=== PATIENT | male | born 1935 | race Caucasian/White ===

== ENCOUNTER → 2017-07-05 09:34 | Outpatient (CLI) | payer MEDICARE, SELFPAY ==
--- NOTE | 2017-07-05 09:41 | RAD_ITS ---
STUDY: X-RAY - RIGHT KNEE REASON FOR EXAM: Male, 81 years old. Osteoarthritis, right knee more painful than left. TECHNIQUE: 3 weight bearing view(s) of the knee. COMPARISON: None. FINDINGS: Normal visualized distal femur. Normal visualized proximal tibia and fibula. Normal proximal tibiofibular articulation. Narrowing along the medial femoral notch and lateral tibial spine. There is severe degenerative arthrosis of the medial femorotibial compartment with severe joint space narrowing. There is mild degenerative arthrosis of the lateral femorotibial compartment. There is chondrocalcinosis of the menisci. There is moderate degenerative arthrosis of the patellofemoral articulation. The soft tissue structures are unremarkable. RAD/Knee 3 Views IMPRESSION: Severe medial femoral tibial degeneration. Electronically Signed: Sejal Armenta MD at 3:46 EDT , Service support ,
--- NOTE | 2017-07-05 09:41 | RAD_ITS ---
STUDY: X-RAY - LEFT KNEE REASON FOR EXAM: Male, 81 years old. Osteoarthritis right knee more painful than left. TECHNIQUE: 3 weight bearing view(s) of the knee. COMPARISON: 01/15/2013 FINDINGS: Normal visualized distal femur. Normal visualized proximal tibia and fibula. Normal proximal tibiofibular articulation. Spurring along the medial femoral notch and lateral tibial spine. There is severe degenerative arthrosis of the medial femorotibial compartment with severe joint space narrowing. There is moderate degenerative arthrosis of the lateral femorotibial compartment with moderate joint space narrowing. There is mild degenerative arthrosis of the patellofemoral articulation. There is no demonstrated joint effusion. The soft tissue structures are unremarkable. RAD/Knee 3 Views IMPRESSION: Severe degenerative changes medial femoral tibial compartment less when compared to the contralateral side. This has worsened since previous exam. Electronically Signed: Sejal Armenta MD at 3:48 EDT , Service support ,
== END ==
PROVIDERS: Family Provider Family Medicine; PCP Family Medicine; Visit Provider Family Medicine
DX: M17.10 Unilateral primary osteoarthritis, unspecified knee (principal)
CPT/HCPCS: 73562

== ENCOUNTER 2017-08-15 08:30 | Outpatient (RCR) | payer MEDICARE, SELFPAY ==
--- NOTE | 2017-07-11 11:18 | HP.PTEVAL_ITS ---
Patient's Visit Information ALEX LALA is a 81 year old M referred to Physical Therapy by Will Subramanian with a diagnosis of POSTERIOR TIBIALS WEAKNESS,KNEE OA AND HIP PAIN. Date of Evaluation: 07/11/17 Physical Therapist: Cem Encinas PT, - Visit Plan Frequency: 2x /Week Duration: 5 weeks Plan: flexablity,strengthening hip/hnee /ankle,nustep ,ROM ,plan to do overcounter orthotics - Subjective Subjective: Tghis 81 y/o female presents to physical therapy with posterior tibilas weakness,knee OA,and hip pain. Patient pain in knees and and occassionally ankle pain. Pain is located medial knee . These symptoms worse with walking,standing ,squatting,kneeling,stairs. Pain doensnr stop activity but interfere with daily ADL'S and housework tasks /farning. Denies paratrhesia/ tingling. Seen DR lee x-rays recommend PT .Patient sleeping okay at night. 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 SOCIAL: - Pain Bilateral Knee Pain Intensity (Out of 10): 4 Pain Intensity Range: 10 Bilateral Ankle Pain Intensity (Out of 10): 3 Pain Intensity Range: 10 Bilateral Hip Pain Intensity (Out of 10): 0 Pain Intensity Range: 10 - Objective POSTURE: bilateral Varus knee,calcaneal valgus,pes planus. GAIT:mild foward posture,reciprocal pattern knee varus. PALAPTION: medial joint line pain. NEURO:denies parathesia/tingling,inact. AROM: supine knee flexion 0-125 degrees. FLEXABLITY: hams min tight. MMT: quads /hams 4-/5 ,4-.5 hip flexion/ abd ,ankle anterior 4/5,posterior tibials 4/5,perneous 4/5. STAIRS: ascend/ descend 4steps with rail alternate - Special Tests R Knee Valgus - MCL: Negative R Knee Varus - LCL: Negative R Knee Patellar Apprehension - PFS: Negative R Knee Patellar Grind - PFS: Negative L Knee Valgus - MCL: Negative L Knee Varus - LCL: Negative L Knee Patellar Apprehension - PFS: Negative L Knee Patellar Grind - PFS: Negative - Goals Goal 1:: Independant with HEP Goal Time Frame: 4-6 Weeks Goal 2:: Patient to decrease pain knee by 50% or greater to improve function with walking. 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 along with bilateral calcaneal valgus knee' s which patient will try overcounter orthotics due to no coverage with insurance for fabricated Rehabilitation Potential: Good - Anticipated Interventions Patient/Client Instruction: Educate patient on: Condition, Plan of Care For the Purpose of:: To decrease pain, To increase ROM, To improve muscle performance and motor function, To improve ability to perform ADL's, To increase tolerance to activity/condition/position, To improve performance and independence with ADL's, To improve ability of physical actions for home/ community/work/leisure, To improve gait and locomotor functions, To improve health of tissue, To decrease soft tissue restriction, To increase flexibility/ ROM, To reduce risk of recurrence, To improve ability to perform tasks related to life management Therapeutic Exercise to Include: Strength training, Endurance training, Flexibilty training, Active ROM Comment: quads/hams/hip/ankle For the Purpose of:: To decrease pain, To increase ROM, To improve muscle performance and motor function, To increase tolerance to activity/condition/ position, To improve ability of physical actions for home/community/work/leisure , To improve health of tissue, To decrease soft tissue restriction, To increase flexibility/ROM, To improve ability to perform tasks related to life management TENS: Yes IF ES: Yes Cryotherapy (ice pack, ice massage): Yes Thermo therapy (hot pack): Yes For the Purpose of:: To decrease pain, To increase ROM, To improve nutrient delivery to tissue, To increase oxygenation perfusion, To improve health of tissue, To decrease soft tissue restriction Thank you for the opportunity to evaluate your patient. For Medicare and Medicare HMO plans, please review the plan of care and approve it. It will need to be FAXED BACK to us at [phone] for Medicare purposes. Please let me know if there are questions or concerns regarding this plan of care. Physician Signature: Date:
--- NOTE | 2017-08-15 09:21 | HP.PTDCSUM ---
HP - PT D/C Summary It has been my pleasure to treat ALEX LALA under orders from Will Subramanian, for the diagnosis of POSTERIOR TIBIALS WEAKNESS,KNEE OA AND HIP PAIN for a total of 3 visit(s). Discharge Date: 08/15/17 Please see the following information for a summary of their discharge status. 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 GAIT: AMBULATES WITH ANTALGIC GAIT LEFT SIDE. NEURO: INTACT. STRENGTH: QUADS/HAMS 4/5 ,HIP FLEXION 4-/5,3+/5 HIP ABD. AROM: knee 0-130 degrees ,hip flexion 95 degees - Goals Goal 1:: Independant with HEP Goal Progress: Goal Met Goal 2:: Patient to decrease pain knee by 50% or greater to improve function with walking. 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 Thank you for the referral of this patient. Sincerely, Cem Encinas, PT,
== END 2017-08-15 19:00 | disposition home or self-care (01) ==
LOC: PT 08:30
PROVIDERS: Family Provider Family Medicine; PCP Family Medicine; Visit Provider Family Medicine
DX: R29.898 Other symptoms and signs involving the musculoskeletal system (principal); M17.10 Unilateral primary osteoarthritis, unspecified knee; M25.559 Pain in unspecified hip
CPT/HCPCS: 97110; 97162

== ENCOUNTER → 2017-11-06 16:29 | Outpatient (CLI) | payer MEDICARE, SELFPAY ==
[2017-11-06 17:31] LABS: Absolute Lymphocyte Count 1.14 X10^3/ul (0.83-4.51); Absolute Neutrophil Count 6.1 X10^3/uL (2.0-7.7); Basophil# 0.02 X10^3/uL; Basophil% 0.2 % (0-1); Eosinophils% 4.8 % (0-5); Hematocrit 43.3 % (40-54); Hemoglobin 14.1 g/dl (13.0-16.5); Lymphocyte # 1.14 X10^3/ul (4.0); Lymphocyte % 13.8 % (19-41); Mean Corp Hgb Conc 32.6 g/gl (32-36); Mean Corpuscular Hgb 31.1 pg (27.0-32.0); Mean Corpuscular Volume 95.4 fL (80-94); Mean Platelet Vol. 10.8 fl (6.2-12.0); Monocyte# 0.59 X10^3/uL; Monocyte% 7.1 % (0-10); Neutrophil % 73.9 % (47-70); Platelet Count 235 K/mm3 (150-450); RBC Distribution Width CV 13.8 % (11.6-14.6); RBC Distribution Width SD 48.4 fl (35.1-43.9); Red Blood Count 4.54 M/mm3 (4.6-6.2); White Blood Count 8.3 K/mm3 (4.4-11.0)
[2017-11-06 17:39] LABS: POSITIVE COUNT NO; POSITIVE DIFFERENTIAL NO; POSITIVE MORPHOLOGY NO
[2017-11-06 18:38] LABS: Anion Gap 10 (5-15); BUN 19 mg/dL (7-18); BUN/Creat Ratio 15.6 RATIO (10-20); Calcium,Total 8.5 mg/dL (8.5-10.1); Chloride 112 mmol/L (98-107); Creatinine, Serum 1.22 mg/dL (0.70-1.30); EST Glomerular Filtration Rate 61 mL/min (>60); Est Glom Filt Rate - Afr Amer 73 mL/min (>60); Glucose 102 mg/dL (74-106); Potassium 4.3 mmol/L (3.5-5.1); Sodium Level 147 mmol/L (136-145); Thyroid Stim Hormone (TSH) 3.63 uIU/mL (0.358-3.74)
== END ==
PROVIDERS: Family Provider Family Medicine; PCP Family Medicine; Visit Provider Internal Medicine Cardiovascular Disease
DX: R53.83 Other fatigue (principal)
CPT/HCPCS: 36415; 80048; 84443; 85025

== ENCOUNTER → 2017-11-16 06:33 | Outpatient (CLI) | payer MEDICARE, SELFPAY ==
--- NOTE | 2017-11-16 09:41 | STRESSREP ---
Stress Test Report Date: 11/16/2017 Procedure: Exercise tolerance test/imaging study Indications: Fatigue; CAD; PCI Consent: Per the patient Procedure: The patient exercised on a Daniel protocol for 5 minutes completing Stage I and 2 minutes of Stage II achieving a peak heart rate of 134 bpm (96 % predicted maximal heart rate) with a peak blood pressure 192/80 mmHg and a peak MET capacity of 7 METs. The baseline ECG demonstrated sinus rhythm. The peak exercise ECG demonstrated no obvious ECG changes. There was an occasional PVC during exercise and recovery. The functional capacity was considered good. There was no complaint of chest discomfort during exercise or recovery. The examination was discontinued secondary to dyspnea. Impression: 1. Technically adequate (percent predicted maximal heart rate greater than 85%) exercise tolerance test 2. Peak exercise ECG demonstrated no obvious ECG changes 3. There was an occasional PVC during exercise and recovery. 4. Nuclear images pending Myocardial perfusion imaging study: Technique: The patient was injected with 11.8 mCi of technetium 99m Cardiolite and subsequently rest SPECT Cardiolite nuclear imaging was obtained in the horizontal long, vertical long, and short axis views. The patient exercised on a Daniel protocol for 5 minutes completing Stage I and 2 minutes of Stage II achieving a peak heart rate of 134 bpm (96 % predicted maximal heart rate) with a peak blood pressure 192/80 mmHg and a peak MET capacity of 7 METs. The patient was injected with 34.1 mCi of technetium 99m Cardiolite and subsequently stress SPECT Cardiolite nuclear imaging was obtained in the horizontal long, vertical long, and short axis views. A gated Cardiolite study at peak stress was obtained. Interpretation: Rest and stress SPECT Cardiolite nuclear imaging status post realignment, normalization, and attenuation correction, demonstrates the appearance of diminished tracer uptake in portions of the mid to distal anterior segments at rest which appear to improve/normalize following stress. There are similar type findings on the resting and stress polar map images. There is end systolic thickening and brightening. The gated Cardiolite study demonstrates myocardial thickening and inward wall motion. The reported LVEF is 70 %. Impression: 1. Rest and stress SPECT Cardiolite nuclear imaging demonstrate findings appearing compatible shifting soft tissue attenuation/artifact being more prominent at rest as opposed to stress with no post stress myocardial perfusion changes considered diagnostic for stress-induced myocardial ischemia or previous myocardial injury/infarction. 2. The gated Cardiolite study reports an LVEF of 70 %. This note was generated with [employer] software. It may contain incorrect words, spelling, and punctuation that were not noted in checking the note before signing.
== END ==
PROVIDERS: Family Provider Family Medicine; PCP Family Medicine; Visit Provider Internal Medicine Cardiovascular Disease
DX: I25.10 Atherosclerotic heart disease of native coronary artery without angina pectoris (principal); I35.9 Nonrheumatic aortic valve disorder, unspecified; R53.83 Other fatigue; G47.33 Obstructive sleep apnea (adult) (pediatric)
CPT/HCPCS: 78452; 93017; 93306; A9500; Q9957; A4216; C8929

== ENCOUNTER → 2018-07-03 12:23 | Outpatient (CLI) | payer MEDICARE, SELFPAY ==
[2018-06-22 13:49] VITALS: BMI 33.5
[2018-07-03 13:47] LABS: AST(SGOT) 28 U/L (15-37); Alanine Aminotransfer ALT/SGPT 30 U/L (16-61); Albumin, Serum 3.5 g/dL (3.2-5.0); Alkaline Phosphatase 114 U/L (45-117); Bilirubin, Direct 0.26 mg/dL (0.00-0.30); Cholesterol 105 mg/dL (200); Globulin 3.3 g/dL (2.2-4.2); High Density Lipoprotein 45 mg/dL; Protein, Total 6.8 g/dL (6.4-8.2); Triglycerides 94 mg/dL; Very Low Density Lipoprotein 19 mg/dL (5-40)
== END ==
PROVIDERS: Family Provider Family Medicine; PCP Family Medicine; Referring Provider Internal Medicine Cardiovascular Disease; Visit Provider Internal Medicine Cardiovascular Disease
DX: E78.5 Hyperlipidemia, unspecified (principal)
CPT/HCPCS: 36415; 80061; 80076

== ENCOUNTER → 2019-03-28 09:28 | Outpatient (CLI) | payer MEDICARE, SELFPAY ==
[2018-12-31 09:02] VITALS: BMI 33.8
--- NOTE | 2019-03-28 09:30 | RAD_ITS ---
STUDY: X-RAY CHEST REASON FOR EXAM: Male, 83 years old. RT SIDE BREAST LUMP, 5 O'' CLOCK POSITION. NO CHEST COMPLAINTS TODAY. PREV. HX CA TECHNIQUE: Frontal and lateral views of the chest were performed COMPARISON: 28 December 2016 FINDINGS: The lungs are clear and expanded. There is no demonstrated pleural abnormality. Normal size heart. Normal mediastinum and josefina. Normal visualized pulmonary arteries. Normal visualized aortic arch and descending thoracic aorta. Normal visualized thoracic spine. Normal visualized ribs, clavicles, and shoulders. There is no demonstrated abnormality of the visualized soft tissue structures of the upper abdomen. RAD/Chest PA and Lateral IMPRESSION: No acute cardio respiratory disease. Electronically Signed: Yaquelin Tamez, at 18:48 EST Tel , Service support ,
== END ==
PROVIDERS: Family Provider Family Medicine; PCP Family Medicine; Referring Provider Family Medicine; Visit Provider Family Medicine
DX: N63.14 Unspecified lump in the right breast, lower inner quadrant (principal)
CPT/HCPCS: 71046; 76642; 77062; 77066; G0279

== ENCOUNTER → 2019-03-28 09:51 | Outpatient (CLI) | payer MEDICARE, SELFPAY ==
[2018-12-31 09:02] VITALS: BMI 33.8
--- NOTE | 2019-03-28 09:56 | BI_ITS ---
MAMMOGRAPHY - BILATERAL DIAGNOSTIC REASON FOR EXAM: Male, 83 years old. Right breast lump. PERTINENT HISTORY: Mother with breast cancer. TECHNIQUE: Digital bilateral breast chantale (3D mammographic acquisition) in the CC and MLO projections. 2-D mediolateral oblique (MLO) and craniocaudad (CC) views of both breasts were obtained. CAD: Full Field Digital Mammography with Computer Added Detection was performed. COMPARISON: None. FINDINGS: Breast Composition: The breasts are almost entirely fatty. There are no dominant masses or suspicious calcifications. Asymmetrical breast tissue is seen in the inferior medial aspect of the right breast at the palpable abnormality site. Correlation with ultrasound is recommended. No other significant abnormalities are identified. BI/DIAG MAMM W/CAD, BILAT IMPRESSION: Findings suggestive of focal right breast asymmetry corresponding to the palpable site. Correlation with ultrasound is recommended. ASSESSMENT CATEGORY: BIRADS Category 0: Incomplete. Need additional imaging evaluation. A letter regarding these results will be sent to the patient by the facility within 30 days. Approximately 10% of breast cancers are not detected by mammography. A normal mammogram should not delay biopsy of a clinically suspicious abnormality. Electronically Signed: Tony Hwang, at 11:43 EST , Service support ,
--- NOTE | 2019-03-28 09:56 | US_ITS ---
STUDY: ULTRASOUND BREAST - RIGHT REASON FOR EXAM: Male, 83 years old. Palpable lump in the right breast. TECHNIQUE: Axial and longitudinal images of the RIGHT breast were performed with a high resolution ultrasound transducer. # OF IMAGES: 11 COMPARISON: Comparison is made with prior mammogram done earlier in day. FINDINGS: RIGHT Breast: The palpable abnormality corresponds to a 1.1 cm x 1.5 cm x 0.7 cm well-defined echogenic nodule just deep to the subcutaneous tissues at the 4:00 position of the breast at 5 sinuses negative. This most likely represents a lipoma. US/Breast Limited Unilateral IMPRESSION: The popliteal mouth to corresponds to a 1.1 cm x 1.5 cm x 0.7 cm well-defined echogenic nodule just deep to the subcutaneous tissues. This is suggestive of a lipoma. ASSESSMENT CATEGORY: BIRADS Category 2: Benign. A letter regarding these results will be sent to the patient by the facility within 30 days. Electronically Signed: Tony Hwang, at 9:03 EST , Service support ,
== END ==
PROVIDERS: Family Provider Family Medicine; PCP Family Medicine; Referring Provider Family Medicine; Visit Provider Family Medicine
DX: R92.8 Other abnormal and inconclusive findings on diagnostic imaging of breast (principal)
CPT/HCPCS: 76642; 77062; 77066; G0279

== ENCOUNTER 2019-05-19 05:12 | Emergency (ER) | payer MEDICARE, SELFPAY ==
[2018-12-31 09:02] VITALS: BMI 33.8
[2019-05-19 05:13] VITALS: BP 187/94; PULSE 89; RESP 18; TEMP 36.2; O2SAT 96; BMI 35.9
--- NOTE | 2019-05-19 05:38 | ED.VIS.GEN ---
History of Present Illness Chief Complaint: Wound Check Informant: Patient Onset: Today Context: Sudden Onset Timing: Continuous Narrative: Patient is an 83-year-old male presenting with bleeding gums. Patient had 9 teeth extracted 11 days ago by his dentist on his lower jaw. Last night he bit down and then started bleeding from his lower jaw. He is a bleeding throughout the night is not been able to get to stop. Patient is on Brilinta and restarted it 3 to 4 days after his extraction. Before that he not had a problem with bleeding. He does seem to have a large clot that has developed over his lower gum. His procedure was done in [place]. He does have sutures in place. He denies any lightheadedness, chest pain or any other complaints at this time. No reports of fever or any signs of infection. Past Medical History - Allergies and Home Meds Allergies/Adverse Reactions: Allergies lisinopril Adverse Reaction (Severe, Verified 05/19/19 05:15) cough Primary Care Physician: Will Subramanian MD [Primary Care Provider] - Past Medical History: - - Coronary artery disease, Hypertension, obstructive sleep apnea, hyperlipidemia Surgical History: noncontributory Smoking Status: Never smoker Review of Systems General: Denies: Chills, Fever, Sweats Eyes: Denies: Visual changes - bilaterally, Diplopia ENT: Reports: - - Bleeding from lower gums, recent dental extraction. Denies: Rhinorrhea, Sore throat Cardiovascular: Denies: Chest pain, Palpitations Respiratory: Denies: Dyspnea, Cough, Dyspnea on exertion Gastrointestinal: Denies: Abdominal pain, Nausea, Vomiting, Diarrhea, Melena, Hematochezia Skin: Denies: Rash, Wounds Neurological: Denies: Headache, Weakness, Numbness Hematologic: Denies: Easy bruising, Easy bleeding Physical Exam Vital Signs/Narrative: Vital Signs Temp Pulse Resp BP Pulse Ox 05/19/19 05:13 97.2 F L 89 18 187/94 H 96 Inital Vital Signs reviewed: Yes General: Well nourished, Well developed, No Acute Distress Head: Normocephalic, Atraumatic Eyes: Perrl, EOMI. Negative for: Pale conjunctiva ENT: Moist mucous membranes, No rhinorrhea, - - Patient is edentulous with sutures in place over the lower anterior gumline. He has an approximately 4 cm hematoma extending from the front gumline to the left. Underneath is there are sutures in place and steady oozing/bleeding in the space of the front left incisor Neck: Supple, Nontender Cardiovascular: Regular rate, Regular rhythm, No murmurs Respiratory: No distress, CTA bilaterally, Chest nontender Extremities: Nontender, No edema, - - Patient ambulates easily in the emergency room Skin: Normal color, No rash Neurological: Alert, Oriented x3, Cranial nerves II-XII grossly intact, Normal Strength, Normal Sensation Psychological: Normal affect, Normal Mood Diagnostic/Tx/Re-eval - Medical Decision Making Patient is evaluated for persistent bleeding status post dental extraction. This is likely exacerbated as he resumed his Brilinta 1 week ago. Hematoma was removed to the best of our ability and the direct pressure was applied for about 20 minutes with gauze. Patient continued to have bleeding. Then, TXA soaked gauze was applied with direct pressure for another 15 to 20 minutes. Again patient continued to have persistent but slow bleeding. I discussed with his dentist who performed the extraction, Dr. Cueto, who initially requested that he be evaluated by oral maxillary facial. OMFS surgeon in the area is out of town so Dr. Cueto stated that she would be able to see him immediately in the office. Patient is discharged with gauze and states he feels comfortable driving to his dentist office. She will meet him there. Patient is hemodynamically stable. He probably has no more than 20 to 30 cc of blood loss while he was in the emergency room. He does not have any signs or symptoms consistent with hypovolemic shock. Patient counseled on signs symptoms require return the emergency room. He verbalizes agreement understand this plan. ED Disposition - Plan for ED Patient: Disposition: Home or Assisted Living Diagnosis: Status post tooth extraction, Surgical wound hemorrhage after dental procedure Instructions: POST OP WOUND CHECK, Bleeding Referrals: Will Subramanian MD [Primary Care Provider] - Additional Instructions: Please go straight to Dr. Cueto, your dentist office. She will evaluate you there and hopefully treat the bleeding. If it anytime you start to feel lightheaded, have chest pain or have other new symptoms, please tack puller machine and call 911.
[2019-05-19] MEDS: TRANEXAMIC ACID 1,000 MG/10 ML ML 1000 MG OPERA.SITE (06:30)
--- NOTE | 2019-05-19 06:30 | ED.RN ---
large clot removed from the gums at this time. TXA applied to quaze and pressure applied to the site
--- NOTE | 2019-05-19 06:59 | ED.RN ---
new dressing applied with txa applied to the site
--- NOTE | 2019-05-19 07:02 | ED.RN ---
left message at dental office at this time
--- NOTE | 2019-05-19 07:47 | ED.RN ---
pt to be discharged to Dr Cueto office. pt in agreement. pt denies being light headed or dizzy. Pt refuses ambulance ride but agrees if issues he will seedling puller and call a squad
== END 2019-05-19 07:49 | disposition home or self-care (01) ==
PROVIDERS: Emergency Provider Emergency Medicine; PCP Family Medicine
DX: K91.840 Postprocedural hemorrhage of a digestive system organ or structure following a digestive system procedure (principal); Z98.818 Other dental procedure status; I25.10 Atherosclerotic heart disease of native coronary artery without angina pectoris; I10 Essential (primary) hypertension; E78.5 Hyperlipidemia, unspecified; G47.33 Obstructive sleep apnea (adult) (pediatric); Z79.82 Long term (current) use of aspirin; Z79.899 Other long term (current) drug therapy
CPT/HCPCS: 99281

== ENCOUNTER → 2019-08-08 07:57 | Outpatient (CLI) | payer MEDICARE, SELFPAY ==
[2019-07-25 10:20] VITALS: BMI 34.7
[2019-08-08 08:03] LABS: Lyme Ab Screen Interpretation REF LAB
[2019-08-08 10:15] LABS: Absolute Lymphocyte Count 1.16 X10^3/uL (0.83-4.51); Absolute Neutrophil Count 5.2 X10^3/uL (2.0-7.7); Basophil# 0.05 X10^3/uL; Basophil% 0.7 % (0-1); Eosinophil# 0.39 X10^3/uL; Eosinophils% 5.1 % (0-5); Hemoglobin 13.7 g/dL (13.0-16.5); Lymphocyte # 1.16 X10^3/ul (4.0); Lymphocyte % 15.3 % (19-41); Mean Corp Hgb Conc 33.4 g/dL (32-36); Mean Corpuscular Hgb 30.8 pg (27.0-32.0); Mean Corpuscular Volume 92.1 fL (80-94); Mean Platelet Vol. 10.1 fl (6.2-12.0); Monocyte% 9.2 % (0-10); NRBC Flagged by Analyzer 0 % (0-5); Neutrophil # 5.24 X10^3/uL (2.7-7.7); Platelet Count 292 K/mm3 (150-450); RBC Distribution Width CV 12.8 % (11.6-14.6); RBC Distribution Width SD 42.6 fl (35.1-43.9); Red Blood Count 4.45 M/mm3 (4.6-6.2); White Blood Count 7.6 K/mm3 (4.4-11.0)
[2019-08-08 10:25] LABS: Erythrocyte Sedimentation Rate 13 mm/hr (0-20)
[2019-08-08 10:51] LABS: Bilirubin, Direct 0.22 mg/dL (0.00-0.30); Cholesterol 123 mg/dL (200); High Density Lipoprotein 45 mg/dL; Triglycerides 134 mg/dL; Very Low Density Lipoprotein 27 mg/dL (5-40)
[2019-08-08 10:56] LABS: ALB/GLOB Ratio 0.9 RATIO (0.9-2.4); AST(SGOT) 23 U/L (15-37); Alanine Aminotransfer ALT/SGPT 27 U/L (16-61); Albumin, Serum 3.3 g/dL (3.2-5.0); Alkaline Phosphatase 115 U/L (45-117); Anion Gap 7 (5-15); BUN 22 mg/dL (7-18); BUN/Creat Ratio 19.6 RATIO (10-20); CPK Total, Creatine Kinase 44 U/L (39-308); Calcium,Total 8.7 mg/dL (8.5-10.1); Chloride 103 mmol/L (98-107); Creatinine, Serum 1.12 mg/dL (0.70-1.30); EST Glomerular Filtration Rate 67 mL/min (>60); Est Glom Filt Rate - Afr Amer 81 mL/min (>60); Globulin 3.5 g/dL (2.2-4.2); Glucose 109 mg/dL (74-106); Magnesium 2.1 mg/dL (1.6-2.6); Potassium 3.1 mmol/L (3.5-5.1); Protein, Total 6.8 g/dL (6.4-8.2); Sodium Level 140 mmol/L (136-145); Thyroid Stim Hormone (TSH) 4.67 uIU/mL (0.358-3.74)
[2019-08-09 18:51] LABS: Lyme Scn Total Ab w/Rflx <0.91 ISR (0.00-0.90)
== END ==
PROVIDERS: Internal Medicine Cardiovascular Disease; PCP Family Medicine; Referring Provider Family Medicine; Visit Provider Family Medicine
DX: E78.00 Pure hypercholesterolemia, unspecified (principal); M79.10 Myalgia, unspecified site; M19.90 Unspecified osteoarthritis, unspecified site
CPT/HCPCS: 36415; 80053; 80061; 82248; 82306; 82550; 83735; 84443; 85025; 85652; 86618

== ENCOUNTER 2020-04-17 15:57 | Outpatient (RCR) | payer MEDICARE, SELFPAY ==
[2020-04-01 10:15] VITALS: BMI 35.7
== END 2020-04-17 23:59 ==
LOC: IMMUN 15:57
PROVIDERS: PCP Family Medicine; Visit Provider Family Medicine
DX: Z23 Encounter for immunization (principal)
CPT/HCPCS: 0011A; 0012A; 91301

== ENCOUNTER → 2020-04-27 14:11 | Outpatient (CLI) | payer MEDICARE, SELFPAY ==
[2020-04-01 10:15] VITALS: BMI 35.7
--- NOTE | 2020-04-27 14:16 | RAD_ITS ---
STUDY: X-RAY CHEST REASON FOR EXAM: Male, 84 years old. CHRONIC COUGH TECHNIQUE: PA and lateral views of the chest. COMPARISON: 03/28/2019. FINDINGS: The lungs are normally expanded with minimal left mid lower lung field atelectasis. Remainder of the lung mancini are clear. There is no demonstrated pleural abnormality. Normal size heart. Normal mediastinum and josefina. Normal visualized pulmonary arteries. There is atherosclerotic calcification of the aortic arch with tortuosity. There are diffuse degenerative changes of the visualized thoracic spine. There is degenerative osteoarthritis of the bilateral shoulders. There is no demonstrated abnormality of the visualized soft tissue structures of the upper abdomen. RAD/Chest PA and Lateral IMPRESSION: Left mid lower lung field atelectasis otherwise no acute cardiopulmonary disease. Electronically Signed: Yvonne Brody MD at 0:30 EST , Service support ,
[2020-04-27 18:25] LABS: Absolute Lymphocyte Count 1.16 X10^3/uL (0.83-4.51); Basophil# 0.05 X10^3/uL; Basophil% 0.5 % (0-1); Eosinophil# 0.38 X10^3/uL; Eosinophils% 4.1 % (0-5); Hematocrit 43.3 % (40-54); Hemoglobin 14.6 g/dL (13.0-16.5); Lymphocyte # 1.16 X10^3/ul (4.0); Lymphocyte % 12.4 % (19-41); Mean Corp Hgb Conc 33.7 g/dL (32-36); Mean Corpuscular Hgb 30.9 pg (27.0-32.0); Mean Corpuscular Volume 91.5 fL (80-94); Mean Platelet Vol. 10.5 fl (6.2-12.0); Monocyte# 0.73 X10^3/uL; Monocyte% 7.8 % (0-10); NRBC Flagged by Analyzer 0 % (0-5); Neutrophil # 6.98 X10^3/uL (2.7-7.7); Neutrophil % 74.6 % (47-70); Platelet Count 331 K/mm3 (150-450); RBC Distribution Width CV 13.5 % (11.6-14.6); RBC Distribution Width SD 45.6 fl (35.1-43.9); Red Blood Count 4.73 M/mm3 (4.6-6.2); White Blood Count 9.4 K/mm3 (4.4-11.0)
[2020-04-27 18:46] LABS: BNP,B-Type NATRIURETIC PEPTIDE 24.6 pg/mL (0-100)
[2020-04-27 18:49] LABS: Vitamin D,25 Hydroxy 22.6 ng/mL
[2020-04-27 18:52] LABS: ALB/GLOB Ratio 1.1 RATIO (0.9-2.4); AST(SGOT) 26 U/L (15-37); Alanine Aminotransfer ALT/SGPT 28 U/L (16-61); Albumin, Serum 3.7 g/dL (3.2-5.0); Alkaline Phosphatase 139 U/L (45-117); Anion Gap 8 (5-15); BUN 23 mg/dL (7-18); BUN/Creat Ratio 17.6 RATIO (10-20); Calcium,Total 9.1 mg/dL (8.5-10.1); Chloride 108 mmol/L (98-107); Creatinine, Serum 1.31 mg/dL (0.70-1.30); EST Glomerular Filtration Rate 56 mL/min (>60); Est Glom Filt Rate - Afr Amer 67 mL/min (>60); Globulin 3.5 g/dL (2.2-4.2); Glucose 112 mg/dL (74-106); Potassium 3.1 mmol/L (3.5-5.1); Protein, Total 7.2 g/dL (6.4-8.2); Sodium Level 143 mmol/L (136-145); T4 Free Direct 1.09 ng/dL (0.76-1.46); Thyroid Stim Hormone (TSH) 2.64 uIU/mL (0.358-3.74)
== END ==
PROVIDERS: PCP Family Medicine; Referring Provider Family Medicine; Visit Provider Family Medicine
DX: R05 Cough (principal); M13.0 Polyarthritis, unspecified; R79.89 Other specified abnormal findings of blood chemistry; C61 Malignant neoplasm of prostate
CPT/HCPCS: 36415; 71046; 80053; 82306; 83880; 84153; 84439; 84443; 85025

== ENCOUNTER → 2020-05-01 11:00 | Outpatient (CLI) | payer MEDICARE, SELFPAY ==
[2020-04-01 10:15] VITALS: BMI 35.7
--- NOTE | 2020-05-01 11:02 | ECHOCS_ITS ---
Reason For Study: Murmur Procedure This was a 2D Doppler, Color Flow transthoracic echocardiogram. The study was technically difficult. Contrast injection was performed. Exam performed in department. Left Ventricle Normal LV size. Moderate concentric left ventricular hypertrophy. Left ventricular systolic function is normal. The estimated ejection fraction is 65 %. Diastolic function is indeterminate. No regional wall motion abnormalities noted. Right Ventricle Normal RV size. Normal systolic function. Atria Normal left atrium. Normal right atrium. No doppler evidence for ASD. Mitral Valve There is no mitral annular calcification. Normal mitral valve. Trivial mitral valve insufficiency. Tricuspid Valve Normal tricuspid valve. Trivial tricuspid valve insufficiency. Unable to estimate RV systolic pressure/pulmonary artery pressure due to technically difficult study. Aortic Valve Trisinus/trileaflet aortic valve. Mild diffuse aortic valve thickening. Moderate focal aortic valve calcification. Moderate aortic stenosis. Pulmonic Valve The pulmonic valve is not well visualized. Great Vessels Normal sized aortic root. Pericardium/Pleural No pericardial effusion. Medication Diluted definity 3ml given slow IV push to enhance endocardial definition. MMode/2D Measurements & Calculations LVIDd: 4.0 cm IVSd: 1.6 cm LVOT diam: 2.1 cm LVIDs: 2.2 cm LVPWd: 1.3 cm RVDd: 3.8 cm FS: 44.3 % LVOT area: 3.6 cm2 Ao root diam: 3.3 cm LAV(MOD-bp): 49.9 ml LVAd ap4: 28.6 cm2 LAV(MOD-bp) Indexed: 24.7 ml/m2 EDV(MOD-sp4): 82.5 ml LAV(MOD-sp2): 53.8 ml EDV(sp4-el): 86.4 ml LAV(MOD-sp4): 46.0 ml LVAs ap4: 14.1 cm2 ESV(MOD-sp4): 27.9 ml ESV(sp4-el): 27.2 ml EF(MOD-sp4): 66.1 % EF(sp4-el): 68.6 % SV(MOD-sp4): 54.5 ml SV(sp4-el): 59.3 ml LA A4 area: 17.0 cm2 LA dimension(2D): 3.5 cm RA A4 area: 11.9 cm2 Doppler Measurements & Calculations MV E max raheem: 70.0 cm/sec Lat Peak E' Raheem: 6.7 cm/sec Med Peak E' Raheem: 6.8 cm/sec MV A max raheem: 89.2 cm/sec E/E' lat: 10.4 E/E' med: 10.2 MV E/A: 0.78 Ao V2 max: 308.8 cm/sec LV V1 max: 87.0 cm/sec SV(LVOT): 71.5 ml Ao max P.2 mmHg LV V1 max P.0 mmHg Ao V2 mean: 227.5 cm/sec LV V1 mean P.6 mmHg Ao mean P.4 mmHg LV V1 mean: 61.6 cm/sec Ao V2 VTI: 68.2 cm LV V1 VTI: 19.8 cm BRYAN(I,D): 1.0 cm2 BRYAN(V,D): 1.0 cm2 PA V2 max: 100.4 cm/sec Interpretation Summary The study was technically difficult. Contrast injection was performed. Left ventricular systolic function is normal. The estimated ejection fraction is 65 %. Moderate concentric left ventricular hypertrophy. Trivial mitral valve insufficiency. Trivial tricuspid valve insufficiency. Moderate aortic stenosis. Unable to estimate RV systolic pressure/pulmonary artery pressure due to technically difficult study. Diastolic function is indeterminate. Ordering Physician: Damaris Lee Referring Physician: Will Subramanian Performed By: Lupe Vann RDCS, RVT
== END ==
PROVIDERS: PCP Family Medicine; Referring Provider Physician Assistant Medical; Visit Provider Physician Assistant Medical
DX: I25.10 Atherosclerotic heart disease of native coronary artery without angina pectoris (principal)
CPT/HCPCS: 93306; Q9957; A4216; C8929

== ENCOUNTER → 2020-07-22 13:54 | Outpatient (CLI) | payer MEDICARE, SELFPAY ==
[2020-04-01 10:15] VITALS: BMI 35.7
--- NOTE | 2020-07-22 13:56 | RAD_ITS ---
STUDY: X-RAY CHEST REASON FOR EXAM: Male, 84 years old. COUGH TECHNIQUE: PA and lateral views of the chest. COMPARISON: 04/27/2020 FINDINGS: The lungs are clear and expanded. There is no demonstrated pleural abnormality. Normal size heart. Normal mediastinum and josefina. Normal visualized pulmonary arteries. Normal visualized aortic arch and descending thoracic aorta. Normal visualized thoracic spine. Normal visualized ribs, clavicles, and shoulders. There is no demonstrated abnormality of the visualized soft tissue structures of the upper abdomen. RAD/Chest PA and Lateral IMPRESSION: Normal x-ray examination of the chest. Electronically Signed: Jacob Ramirez MD at 8:13 EDT Tel , Service support ,
== END ==
PROVIDERS: PCP Family Medicine; Referring Provider Family Medicine; Visit Provider Family Medicine
DX: R05 Cough (principal)
CPT/HCPCS: 71046

== ENCOUNTER → 2020-10-21 14:23 | Outpatient (CLI) | payer MEDICARE, SELFPAY ==
[2020-04-01 10:15] VITALS: BMI 35.7
[2020-10-21 18:02] LABS: Anion Gap 7 (5-15); BUN 24 mg/dL (7-18); Calcium,Total 8.8 mg/dL (8.5-10.1); Chloride 107 mmol/L (98-107); Creatinine, Serum 1.09 mg/dL (0.70-1.30); EST Glomerular Filtration Rate 69 mL/min (>60); Est Glom Filt Rate - Afr Amer 83 mL/min (>60); Glucose 106 mg/dL (74-106); Potassium 3.2 mmol/L (3.5-5.1); Sodium Level 143 mmol/L (136-145)
[2020-10-21 18:47] LABS: Microalbumin,Random Urine < 5.0 mg/L (NO RANGE EST.)
== END ==
PROVIDERS: PCP Family Medicine; Referring Provider Family Medicine; Visit Provider Family Medicine
DX: I10 Essential (primary) hypertension (principal)
CPT/HCPCS: 36415; 80048; 82043; 82570

== ENCOUNTER → 2020-12-18 14:49 | Outpatient (CLI) | payer MEDICARE, SELFPAY ==
--- NOTE | 2020-12-18 14:50 | RAD_ITS ---
STUDY: X-RAY - LUMBAR SPINE REASON FOR EXAM: Male, 85 years old. Worsening low back pain TECHNIQUE: 5 view(s) of the lumbar spine were obtained. COMPARISON: Previous study from 2009 not available for comparison FINDINGS: Normal lumbar lordosis. There is no substantial scoliosis. There is a normal alignment of the vertebrae. There is diffuse demineralization with multi-level endplate spondylosis. There is multi-level degenerative disc disease with multi-level disc space narrowing, most pronounced at L5/S1 with there is vacuum disc phenomenon. There is no demonstrated fracture. There is atherosclerotic calcification of the abdominal aorta without a demonstrated aneurysm. RAD/L/S Spine Min 4 Views IMPRESSION: Degenerative changes of the spine, as detailed above. Electronically Signed: Orion Madrid MD at 16:57 EDT , Service support ,
[2020-12-18 15:01] LABS: Lyme Ab Screen Interpretation REF LAB
[2020-12-18 17:43] LABS: Absolute Lymphocyte Count 1.25 X10^3/uL (0.83-4.51); Absolute Neutrophil Count 4.9 X10^3/uL (2.0-7.7); Basophil# 0.04 X10^3/uL; Basophil% 0.6 % (0-1); Eosinophil# 0.42 X10^3/uL; Eosinophils% 5.8 % (0-5); Hematocrit 41.6 % (40-54); Hemoglobin 13.5 g/dL (13.0-16.5); Lymphocyte # 1.25 X10^3/ul (0.83-4.51); Lymphocyte % 17.3 % (19-41); Mean Corp Hgb Conc 32.5 g/dL (32-36); Mean Corpuscular Hgb 30.5 pg (27.0-32.0); Mean Corpuscular Volume 94.1 fL (80-94); Mean Platelet Vol. 10.2 fl (6.2-12.0); Monocyte# 0.57 X10^3/uL; Monocyte% 7.9 % (0-10); NRBC Flagged by Analyzer 0 % (0-5); Platelet Count 324 K/mm3 (150-450); RBC Distribution Width CV 12.9 % (11.6-14.6); RBC Distribution Width SD 44.7 fl (35.1-43.9); Red Blood Count 4.42 M/mm3 (4.6-6.2); White Blood Count 7.2 K/mm3 (4.4-11.0)
[2020-12-18 18:04] LABS: Erythrocyte Sedimentation Rate 26 mm/hr (0-20)
[2020-12-18 18:12] LABS: Vitamin D,25 Hydroxy 36.9 ng/mL
[2020-12-18 18:25] LABS: ALB/GLOB Ratio 0.9 RATIO (0.9-2.4); AST(SGOT) 23 U/L (15-37); Alanine Aminotransfer ALT/SGPT 25 U/L (16-61); Albumin, Serum 3.5 g/dL (3.2-5.0); Alkaline Phosphatase 114 U/L (45-117); Anion Gap 10 (5-15); BUN 20 mg/dL (7-18); CRP 8.72 mg/L (0.0-3.0); Calcium,Total 8.9 mg/dL (8.5-10.1); Chloride 105 mmol/L (98-107); EST Glomerular Filtration Rate 76 mL/min (>60); Est Glom Filt Rate - Afr Amer 92 mL/min (>60); Globulin 3.8 g/dL (2.2-4.2); Glucose 101 mg/dL (74-106); Potassium 3.5 mmol/L (3.5-5.1); Protein, Total 7.3 g/dL (6.4-8.2); Sodium Level 141 mmol/L (136-145); Thyroid Stim Hormone (TSH) 3.28 uIU/mL (0.358-3.74)
[2020-12-21 13:11] LABS: Lyme Scn Total Ab w/Rflx <0.91 ISR (0.00-0.90)
[2020-12-21 13:12] LABS: ANTINUCLEAR ANTIBODIES DIRECT Negative (Negative)
== END ==
PROVIDERS: PCP Family Medicine; Referring Provider Family Medicine; Visit Provider Family Medicine
DX: R26.81 Unsteadiness on feet (principal); R53.81 Other malaise; R53.83 Other fatigue; M06.4 Inflammatory polyarthropathy
CPT/HCPCS: 36415; 72110; 80053; 82306; 84443; 85025; 85652; 86038; 86140; 86618

== ENCOUNTER → 2020-12-28 09:47 | Outpatient (CLI) | payer MEDICARE, SELFPAY ==
[2020-12-28 12:16] LABS: AST(SGOT) 26 U/L (15-37); Alanine Aminotransfer ALT/SGPT 30 U/L (16-61); Albumin, Serum 3.4 g/dL (3.2-5.0); Alkaline Phosphatase 107 U/L (45-117); Bilirubin, Direct 0.14 mg/dL (0.00-0.30); Cholesterol 135 mg/dL (200); Globulin 3.5 g/dL (2.2-4.2); High Density Lipoprotein 43 mg/dL; Protein, Total 6.9 g/dL (6.4-8.2); Triglycerides 181 mg/dL; Very Low Density Lipoprotein 36 mg/dL (5-40)
== END ==
PROVIDERS: Internal Medicine Cardiovascular Disease; PCP Family Medicine; Visit Provider Family Medicine
DX: E78.5 Hyperlipidemia, unspecified (principal)
CPT/HCPCS: 36415; 80061; 80076

== ENCOUNTER → 2021-01-27 13:09 | Outpatient (CLI) | payer MEDICARE, SELFPAY ==
--- NOTE | 2021-01-27 13:12 | CDU_ITS ---
Reason For Study: Carotid artery bruits Rt. Velocities/BP Lt. Velocities/BP Prox CCA 66.9/10.8 cm/sec. Prox CCA 75.8/15.4 cm/sec. Mid CCA 101/13.3 cm/sec. Mid CCA 70.2/11.6 cm/sec. Dist CCA 95.5/11.5 cm/sec. Dist CCA 68.3/12.6 cm/sec. Prox ICA 73.6/17 cm/sec. Prox ICA 151/42.2 cm/sec. Mid ICA 99.2/22.5 cm/sec. Mid ICA 115.6/27.9 cm/sec. Dist ICA 82.7/18.8 cm/sec. Dist ICA 68.4/17.9 cm/sec. Rt. ICA/CCA = 1.04. Lt. ICA/CCA = 2.15. Prox ECA 91.9/6 cm/sec. Prox ECA 53.4/7.8 cm/sec. Rt. Vert. 39/9.7 cm/sec. Lt. Vert. 43.2/8 cm/sec. Right Extracranial There is intimal thickening but no significant atherosclerotic plaque noted in the right common carotid artery. There is homogeneous, irregular atherosclerotic plaque noted in the right internal carotid artery. There is intimal thickening but no significant atherosclerotic plaque noted in the right external carotid artery. Antegrade flow is noted in the right vertebral artery. Left Extracranial There is homogeneous, smooth atherosclerotic plaque noted in the left common carotid artery. There is heterogeneous, irregular atherosclerotic plaque noted in the left internal carotid artery. There is intimal thickening but no significant atherosclerotic plaque noted in the left external carotid artery. Antegrade flow is noted in the left vertebral artery. Procedure Carotid Duplex [id number]. This is a Carotid Duplex examination using B-mode, color flow and specral Doppler. Exam performed in department. VL/Carotid Duplex Ultrasound Interpretation Summary Mild (<50%) stenosis right extracranial internal carotid. Moderate (50-69%) tavon nosis left extracranial internal carotid. Flow within the vertebral arteries is antegrade bilaterally. Ordering Physician: Denilson Macario Referring Physician: Will Subramanian MD Performed By: Jackie Abreu RVT
== END ==
PROVIDERS: PCP Family Medicine; Referring Provider Internal Medicine Cardiovascular Disease; Visit Provider Internal Medicine Cardiovascular Disease
DX: R09.89 Other specified symptoms and signs involving the circulatory and respiratory systems (principal); I25.10 Atherosclerotic heart disease of native coronary artery without angina pectoris
CPT/HCPCS: 93880

== ENCOUNTER → 2021-02-16 08:33 | Outpatient (CLI) | payer MEDICARE, SELFPAY ==
--- NOTE | 2021-02-16 08:38 | BD_ITS ---
STUDY: DUAL ENERGY X-RAY ABSORPTIOMETRY / DXA REASON FOR EXAM: Male, 85 years old. M810 TECHNIQUE: Bone Mineral Density (BMD) measurements of lumbar spine and bilateral hips were obtained. COMPARISON: None. FINDINGS: Lumbar Spine (L1-L4): g/cm2 (0.981) / T-score (-0.8) / Z-score (0.5) Findings are suggestive of normal bone density with a low fracture risk. Left Femur Total: g/cm2 (0.867) / T-score (-1.1) / Z-score (0.1) Left Femoral Neck: g/cm2 (0.744) / T-score (-1.4) / Z-score (0.3) Right Femur Total: g/cm2 (0.744) / T-score (-1.9) / Z-score (-0.7) Right Femoral Neck: g/cm2 (0.58) / T-score (-2.6) / Z-score (-0.9) BD/Dexa Bone Density Study IMPRESSION: The patient is considered osteoporotic as outlined below according to World Bruce Organization (WHO) criteria with a high fracture risk. Reference Information: The T-score is the number of standard deviations above or below the standard which is normal for young adults at their peak bone mineral density. The World Health Organization (WHO) interprets the T-scores as follows: Above -1 Normal bone density Between -1 and -2.5 Osteopenia Equal to / or below -2.5 Osteoporosis As a practical clinical guideline, osteopenia may be graded as follows: Mild -1 through -1.5 Moderate -1.6 through -2.0 Severe -2.1 through -2.4 The Z-score is the number of standard deviations above or below age-matched controls. A Z-score of less than -1.5 would be considered abnormal. References: 1. NIH Osteoporosis and Related Bone Diseases www osteo.org 2. International Society for Clinical Densitometry www iscd.org 3. National Osteoporosis Foundation www nof.org Electronically Signed: Tony Hwang MD at 15:32 EST , Service support ,
== END ==
PROVIDERS: PCP Family Medicine; Visit Provider Family Medicine
DX: Z13.820 Encounter for screening for osteoporosis (principal); M81.0 Age-related osteoporosis without current pathological fracture
CPT/HCPCS: 77080

== ENCOUNTER 2021-08-16 09:33 | Emergency (ER) | payer MEDICARE, SELFPAY ==
[2021-08-16 09:34] VITALS: BP 116/70; PULSE 90; RESP 18; TEMP 36.6; O2SAT 94; BMI 30.1
--- NOTE | 2021-08-16 09:59 | EX.ED.DYSGE1 ---
HPI History of Present Illness Chief Complaint: Other, Pain/Inj Detail of Chief Complaint: Generalized pain Informant: patient Onset/Context/Timing Onset: Weeks Current Severity: Moderate Maximum Severity: Moderate Narrative Narrative: Patient presents secondary to generalized pain all over. He states that all of his joints seem to ache and hurt. He has had flares like this for years but no definitive diagnosis made. This particular flare started a week ago. He was seen at his doctor's office and started on Skelaxin. This helped for a short time but he ran out of pills. He called the on-call doctor yesterday who wrote him for Flexeril. He presents this morning stating the pain is worse and he had difficulty walking. He denies any red hot joints. No fever or chills. No injury. He is also taking 600 mg of ibuprofen 3 or 4 times a day. [facility] Medical History Atherosclerotic heart disease of [place] coronary artery without angina pectoris Bilateral carotid bruits Cardiac murmur Diastolic dysfunction Essential hypertension Hyperlipidemia Hypertension Nonrheumatic aortic (valve) stenosis Old myocardial infarction SHAMAR (obstructive sleep apnea) Premature atrial contractions Home Medications aspirin 81 mg tablet,delayed release 81 mg PO QDAY 11/06/17 [History Last Taken Unknown] calcium carbonate 600 mg-vitamin D3 5 mcg (200 unit) tablet 1 tab PO QDAY 11/06/17 [History Last Taken Unknown] omega-3 fatty acids 1,000 mg capsule 1,200 mg PO QDAY 11/06/17 [History Last Taken Unknown] nitroglycerin 0.4 mg sublingual tablet 0.4 mg SUBLINGUAL Q5-15M PRN #25 tab 12/31/18 [Rx Last Taken Unknown] fegiogaljue-ptnczazzn-cqs C-Mn 1 ea PO DAILY 05/19/19 [History Last Taken Unknown] metoprolol tartrate 25 mg tablet 25 mg PO BID #180 tab 12/29/20 [Rx Last Taken Unknown] losartan 25 mg tablet 25 mg PO DAILY #90 tab 04/02/21 [Rx Last Taken Unknown] ticagrelor 90 mg tablet 90 mg PO BID #180 tab 04/16/21 [Rx Last Taken Unknown] hydrochlorothiazide 12.5 mg tablet 12.5 mg PO DAILY #90 tab 06/28/21 [Rx Last Taken Unknown] atorvastatin 40 mg tablet 20 mg PO .every other day #45 tab 07/21/21 [Rx Last Taken Unknown] cyclobenzaprine 5 mg tablet 5 mg PO QHS PRN 07/21/21 [History Last Taken Unknown] hydrocodone-acetaminophen 1 tab PO BID PRN 5 Days #10 tab 08/16/21 [Rx Last Taken Unknown] potassium chloride 20 meq PO BID #6 tab 08/16/21 [Rx Last Taken Unknown] prednisone 40 mg PO DAILY #8 tab 08/16/21 [Rx Last Taken Unknown] Allergy/AdvReac Type Severity Reaction Status Date / Time lisinopril AdvReac Severe cough Verified 08/16/21 09:37 Surgical History Postsurgical percutaneous transluminal coronary angioplasty (PTCA) status (~07/29/13) Presence of stent in coronary artery (~07/29/13) Social History Smoking Status: Never smoker alcohol intake: current details: Rare substance use type: does not use ROS ROS ED Constitutional Constitutional ED: Denies chills or fever(s) Eyes Eyes: Denies change in vision ENT ENT ED: Denies sore throat Cardiovascular Cardiovascular: Denies chest pain Respiratory/Chest Respiratory/Chest: Denies cough or dyspnea Gastrointestinal Gastrointestinal: Denies abdominal pain, diarrhea, nausea or vomiting Genitourinary Genitourinary ED: Denies dysuria Musculoskeletal Musculoskeletal: Reports arthralgias Integumentary Denies rash Neurologic Neurologic: Denies headache(s) or paresthesias Allergic/Immunologic Allergic/Immunologic ED: Denies urticaria EXAM Physical Exam Const Vital Signs: 08/16/21 09:34 08/16/21 10:09 Temperature 98 F Temperature Source Temporal Pulse Rate 90 Respiratory Rate 18 Respiratory Effort Normal Non-Labored Respiratory Pattern Normal Blood Pressure 116/70 Blood Pressure Mean 85 Pulse Ox 94 Oxygen Delivery Method Room Air Positive well nourished and well developed General Appearance ED: well developed HEENT Reports moist mucous membranes Eyes PERRL and EOMs intact bilaterally Neck supple Chest Wall inspection of chest normal and palpation of chest normal Resp normal respiratory effort and clear to auscultation bilaterally Cardio regular rate and regular rhythm Heart Sounds: murmur GI non-tender Palpation: soft Extremity normal to inspection Extremity Narrative: No reproducible tenderness with palpation over the joints. Good range of motion. No erythema or edema. Neuro oriented x3 Sensorium / Orientation: alert Psych mental status grossly normal Skin no rashes or lesions noted MDM MDM MDM Narrative Medical decision making narrative: Lab work obtained including sed rate and CRP. Patient given a dose of steroids as well as [place]. Lab Data Attestation: I reviewed the patient's lab results. Labs: Laboratory Results - last 24 hr 08/16/21 08/16/21 10:26 10:26 WBC 12.4 H RBC 4.07 L Hgb 12.7 L Hct 37.9 L MCV 93.1 MCH 31.2 MCHC 33.5 RDW Std Deviation 43.8 RDW Coeff of Joshua 12.8 Plt Count 302 MPV 10.1 Immature Gran % (Auto) 0.800 Neut % (Auto) 81.7 H Lymph % (Auto) 7.4 L [place] % (Auto) 9.3 Eos % (Auto) 0.6 Baso % (Auto) 0.2 Absolute Neuts (auto) 10.1 H Absolute Lymphs (auto) 0.92 Nucleated RBC % 0 ESR 36 H Sodium 136 Potassium 3.0 L Chloride 101 Carbon Dioxide 31.0 Anion Gap 4 L BUN 16 Creatinine 1.10 Estim Creat Clear Calc 48.36 Est GFR (MDRD) Af Amer 82 Est GFR (MDRD) Non-Af 68 BUN/Creatinine Ratio 14.5 Glucose 130 H Calcium 8.6 C-React Prot Ext Range 104.00 H Treatment and Re-Evaluation Narrative: White count mildly elevated at 12.4 with left shift. Sed rate elevated at 36 and CRP at 104. Potassium is low at 3.0. On repeat evaluation patient reports feeling much improved. He was observed ambulating to the restroom and back without difficulty. I will write him a prescription for potassium replacement along with 4 additional days of steroid and [place] twice daily x10 tabs. I will speak with primary care or whoever is covering. Return instructions provided. Discharge Plan Triage Chief Complaint: Other, Pain/Inj ED Provider: Cecily Wang Dx/Rx/DC Orders Clinical Impression: Arthralgia, Hypokalemia Instructions: ED Arthralgia, ED Hypokalemia Prescriptions: New prednisone 20 mg tablet 40 mg PO DAILY Qty: 8 RF: 0 hydrocodone-acetaminophen 5-325 mg tablet 1 tab PO BID PRN (Reason: pain) 5 Days Qty: 10 RF: 0 potassium chloride 20 mEq tablet extended release 20 meq PO BID Qty: 6 RF: 0 No Action aspirin 81 mg tablet,delayed release (DR/EC) 81 mg PO QDAY RF: 0 calcium carbonate-vitamin D3 [Calcium 600 with Vitamin D3] 600 mg(1,500mg) -200 unit tablet 1 tab PO QDAY RF: 0 omega-3 fatty acids [Fish Oil Concentrate] 1,000 mg capsule 1,200 mg PO QDAY RF: 0 nitroglycerin 0.4 mg tablet, sublingual 0.4 mg SUBLINGUAL Q5-15M PRN (Reason: chest pain) Qty: 25 RF: 3 cyclobenzaprine 5 mg tablet 5 mg PO QHS PRN (Reason: muscle spasms) RF: 0 atorvastatin 40 mg tablet 20 mg PO .every other day Qty: 45 RF: 3 eirtovwshcz-glikrpafx-wad C-Mn 1 EACH tablet 1 ea PO DAILY RF: 0 metoprolol tartrate 25 mg tablet 25 mg PO BID Qty: 180 RF: 3 losartan 25 mg tablet 25 mg PO DAILY Qty: 90 RF: 4 ticagrelor 90 mg tablet 90 mg PO BID Qty: 180 RF: 3 hydrochlorothiazide 12.5 mg tablet 12.5 mg PO DAILY Qty: 90 RF: 3 Primary Care Provider: Will Subramanian Referrals: Will Subramanian MD [Primary Care Provider] - 1 Week Disposition Disposition: Home, Self Care
[2021-08-16] MEDS: MethylPREDNISolone 125 MG/2 ML Vial 80 MG IV (10:24)
[2021-08-16] MEDS: HYDROcodone Bitartrate/Apap 5/325 Tablet PO (10:24)
[2021-08-16 10:44] LABS: Absolute Lymphocyte Count 0.92 X10^3/uL (0.83-4.51); Absolute Neutrophil Count 10.1 X10^3/uL (2.0-7.7); Basophil# 0.03 X10^3/uL; Basophil% 0.2 % (0-1); Eosinophil# 0.08 X10^3/uL; Eosinophils% 0.6 % (0-5); Hematocrit 37.9 % (40-54); Hemoglobin 12.7 g/dL (13.0-16.5); Lymphocyte # 0.92 X10^3/ul (0.83-4.51); Lymphocyte % 7.4 % (19-41); Mean Corp Hgb Conc 33.5 g/dL (32-36); Mean Corpuscular Hgb 31.2 pg (27.0-32.0); Mean Corpuscular Volume 93.1 fL (80-94); Mean Platelet Vol. 10.1 fl (6.2-12.0); Monocyte# 1.15 X10^3/uL; Monocyte% 9.3 % (0-10); NRBC Flagged by Analyzer 0 % (0-5); Neutrophil % 81.7 % (47-70); Platelet Count 302 K/mm3 (150-450); RBC Distribution Width CV 12.8 % (11.6-14.6); RBC Distribution Width SD 43.8 fl (35.1-43.9); Red Blood Count 4.07 M/mm3 (4.6-6.2); White Blood Count 12.4 K/mm3 (4.4-11.0)
[2021-08-16 10:51] LABS: Erythrocyte Sedimentation Rate 36 mm/hr (0-20)
[2021-08-16 10:57] LABS: Anion Gap 4 (5-15); BUN 16 mg/dL (7-18); BUN/Creat Ratio 14.5 RATIO (10-20); Calcium,Total 8.6 mg/dL (8.5-10.1); Chloride 101 mmol/L (98-107); EST Glomerular Filtration Rate 68 mL/min (>60); Est Glom Filt Rate - Afr Amer 82 mL/min (>60); Estimated Creatinine Clearance 48.36 ml/min; Glucose 130 mg/dL (74-106); Sodium Level 136 mmol/L (136-145)
[2021-08-16] MEDS: Potassium Chloride Oral Tablet 20 MEQ 40 MEQ PO (11:33)
[2021-08-16 11:37] VITALS: RESP 16
== END 2021-08-16 11:37 | disposition home or self-care (01) ==
PROVIDERS: Emergency Provider Emergency Medicine; PCP Family Medicine; Visit Provider Emergency Medicine
DX: M25.50 Pain in unspecified joint (principal); E87.6 Hypokalemia; I25.10 Atherosclerotic heart disease of native coronary artery without angina pectoris; E78.5 Hyperlipidemia, unspecified; I10 Essential (primary) hypertension; G47.33 Obstructive sleep apnea (adult) (pediatric); Z79.82 Long term (current) use of aspirin; Z79.899 Other long term (current) drug therapy
CPT/HCPCS: 80048; 85025; 85652; 86140; 96374; 99283; A4216

== ENCOUNTER → 2021-08-24 | Outpatient (CLI) | payer MEDICARE, SELFPAY ==
[2021-08-24 15:18] LABS: Lyme Ab Screen Interpretation REF LAB
[2021-08-24 18:02] LABS: Anion Gap 6 (5-15); BUN 20 mg/dL (7-18); BUN/Creat Ratio 15.9 RATIO (10-20); Calcium,Total 8.9 mg/dL (8.5-10.1); Chloride 103 mmol/L (98-107); Creatinine, Serum 1.26 mg/dL (0.70-1.30); EST Glomerular Filtration Rate 58 mL/min (>60); Est Glom Filt Rate - Afr Amer 70 mL/min (>60); Glucose 126 mg/dL (74-106); Magnesium 2.4 mg/dL (1.6-2.6); Potassium 3.8 mmol/L (3.5-5.1); Sodium Level 140 mmol/L (136-145)
[2021-08-27 17:14] LABS: Lyme Scn Total Ab w/Rflx Negative (Negative)
== END | disposition home or self-care (01) ==
LOC: MFPLAB 15:15
PROVIDERS: PCP Family Medicine; Referring Provider Family Medicine; Visit Provider Family Medicine
DX: Z12.5 Encounter for screening for malignant neoplasm of prostate (principal); E87.6 Hypokalemia; M25.50 Pain in unspecified joint; R79.82 Elevated C-reactive protein (CRP)
CPT/HCPCS: 36415; 80048; 83735; 86140; 86618

== ENCOUNTER 2021-08-31 04:08 | Emergency (ER) | payer MEDICARE, SELFPAY ==
[2021-08-31 04:10] VITALS: BP 165/105; PULSE 109; RESP 22; TEMP 36.7; O2SAT 99; BMI 30.9
--- NOTE | 2021-08-31 04:19 | CT_ITS ---
STUDY: CT ABDOMEN AND PELVIS WITH CONTRAST REASON FOR EXAM: Male, 86 years old. LLQ pain RADIATION DOSAGE (If Supplied By Facility): CTDIvol = ( 17.27 ) mGy, DLP = ( 1054.87 ) mGycm TECHNIQUE: Transaxial images were obtained from the dome of the diaphragm to the symphysis pubis without oral contrast. IV 100mL Isovue-370 was administered. Sagittal and coronal images were reconstructed. Individualized dose optimization techniques were used for this CT. COMPARISON: None. FINDINGS: LOWER CHEST: Dependent atelectasis. Coronary artery calcifications moderate. LIVER: Unremarkable. GALLBLADDER/BILE DUCTS: Unremarkable. PANCREAS: Unremarkable. SPLEEN: Unremarkable. ADRENAL GLANDS: Unremarkable. KIDNEYS / URETERS: Unremarkable. BOWEL / MESENTERY: Borderline dilated small bowel mid to right lower abdomen. No distinct transition zone. Diverticula scattered throughout the colon. No bowel obstruction. APPENDIX: Identified and normal. No evidence of acute appendicitis. PERITONEUM: No free air. No free fluid. VESSELS: Abdominal aorta is normal caliber. RETROPERITONEUM: Unremarkable. REPRODUCTIVE ORGANS: Surgical clips in the pelvis presumed prostatectomy. BLADDER: Minimally distended. Tiny 1 to 2 mm calculus in the bladder dependent on the left, near the left ureteral orifice. Prominent wall. ABDOMINAL WALL: Unremarkable. 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 Degenerative changes in the lumbar spine.. OTHER: None. CT/Abdomen/Pelvis W IV Cont ONLY IMPRESSION: Tiny calculus in the bladder near the left ureteral orifice may have recently passed from the left kidney/ureter. No hydronephrosis. Colonic diverticulosis without evidence of acute diverticulitis. Borderline dilated small bowel mid to lower abdomen possible ileus or enteritis. Prominent bladder wall likely nondistention, correlate for cystitis. Electronically Signed: Judith Vogt MD at 5:35 EDT ,
--- NOTE | 2021-08-31 04:21 | EKG12_ITS ---
Test Reason : CHEST OTHER Blood Pressure : / mmHG Vent. Rate : 111 BPM Atrial Rate : 111 BPM P-R Int : 154 ms QRS Dur : 104 ms QT Int : 362 ms P-R-T Axes : 031 020 058 degrees QTc Int : 492 [address]-Segment Abnormality Confirmed by MAGDALENE MOLINA, TING ([id number]), dictionary editor OCTAVIANO CORTÉS ([id number]) on 09/01/2021 9:59:25 AM Referred By: MARTÍNEZ Confirmed By:TING DEL CASTILLO MD
--- NOTE | 2021-08-31 04:22 | EDS_ITS ---
HPI History of Present Illness Chief Complaint: Chest Other Informant: patient and spouse/S.O. Narrative Narrative: Patient states that he started with pain in the left side of his abdomen last night that somewhere between 7 and 9 PM. He then states he has been having it off and on for a few weeks. He denies any chest pain to me. He states it is below the ribs. He also admits to being slightly constipated. He took some unknown stool softener or laxative yesterday but no benefit. His states he has been complaining of this almost constantly for 3 weeks. He states he has not been. She states he was complaining of back pain he denies this. They both deny he has been complaining of chest pain or dyspnea. No fevers or chills. No urinary symptoms. He was seen for some generalized aches and pains several weeks ago. His states that when he has something for pain he feels good but when he runs out he feels bad again. Patient is eating and drinking without difficulty. No nausea vomiting. No fevers or chills. It is a little hard to get the consistent story. Patient varies his story a little bit. Also, the patient's story and what his states he has been complaining of are different. They both deny he has not been having chest pain or breathing problems. They both deny fevers and vomiting. Patient also was on and off and riding on the tractor quite a bit today. He wonders if that aggravated this. [facility] Medical History Atherosclerotic heart disease of [place] coronary artery without angina pectoris Bilateral carotid bruits Cardiac murmur Diastolic dysfunction Essential hypertension Hyperlipidemia Hypertension Nonrheumatic aortic (valve) stenosis Old myocardial infarction SHAMAR (obstructive sleep apnea) Premature atrial contractions Home Medications aspirin 81 mg tablet,delayed release 81 mg PO QDAY 11/06/17 [History Last Taken Unknown] calcium carbonate 600 mg-vitamin D3 5 mcg (200 unit) tablet 1 tab PO QDAY 11/06/17 [History Last Taken Unknown] omega-3 fatty acids 1,000 mg capsule 1,200 mg PO QDAY 11/06/17 [History Last Taken Unknown] nitroglycerin 0.4 mg sublingual tablet 0.4 mg SUBLINGUAL Q5-15M PRN #25 tab 12/31/18 [Rx Last Taken Unknown] hbeadygkmnf-dtlitsmxu-ytu C-Mn 1 ea PO DAILY 05/19/19 [History Last Taken Un known] metoprolol tartrate 25 mg tablet 25 mg PO BID #180 tab 12/29/20 [Rx Last Taken Unknown] losartan 25 mg tablet 25 mg PO DAILY #90 tab 04/02/21 [Rx Last Taken Unknown] ticagrelor 90 mg tablet 90 mg PO BID #180 tab 04/16/21 [Rx Last Taken Unknown] hydrochlorothiazide 12.5 mg tablet 12.5 mg PO DAILY #90 tab 06/28/21 [Rx Last Taken Unknown] atorvastatin 40 mg tablet 20 mg PO .every other day #45 tab 07/21/21 [Rx Last Taken Unknown] cyclobenzaprine 5 mg tablet 5 mg PO Q8H PRN PRN 07/21/21 [History Last Taken Unknown] potassium chloride 20 meq PO BID #6 tab 08/16/21 [Rx Last Taken Unknown] prednisone 40 mg PO DAILY #8 tab 08/16/21 [Rx Last Taken Unknown] Allergy/AdvReac Type Severity Reaction Status Date / Time lisinopril AdvReac Severe cough Verified 08/31/21 04:09 Surgical History Postsurgical percutaneous transluminal coronary angioplasty (PTCA) status (~ 07/29/13) Presence of stent in coronary artery (~07/29/13) Social History Smoking Status: Never smoker alcohol intake: current details: Rare substance use type: does not use ROS ROS ED Constitutional Constitutional ED: Denies chills or fever(s) ENT ENT ED: Denies rhinorrhea or sore throat Cardiovascular Cardiovascular: Denies chest pain or palpitations Respiratory/Chest Respiratory/Chest: Denies cough, dyspnea or sputum Gastrointestinal Gastrointestinal: Reports abdominal pain and constipation; Denies diarrhea, candido eliane, nausea or vomiting Genitourinary Genitourinary ED: Denies dysuria or hematuria Musculoskeletal Musculoskeletal: Reports other Details: Patient denies. states he has complained of back pain. But he denies it now or recently. Integumentary Denies rash Neurologic Neurologic: Denies headache(s) Endocrine Endocrinology: Denies polydipsia or polyuria Allergic/Immunologic Allergic/Immunologic ED: Denies urticaria EXAM Physical Exam Const Vital Signs: 08/31/21 04:10 08/31/21 04:13 Temperature 98.1 F Temperature Source Temporal Pulse Rate 109 H Respiratory Rate 22 H Respiratory Effort Normal Respiratory Pattern Normal Blood Pressure 165/105 H Blood Pressure Mean 125 Pulse Ox 99 Oxygen Delivery Method Room Air Positive well nourished and well developed General Appearance ED: well developed and NAD; Negative for cyanotic or diaphoretic HEENT Reports moist mucous membranes Eyes General Eye ED: Negative for pale conjunctiva or scleral icterus Neck supple Chest Wall inspection of chest normal and palpation of chest normal Chest Narrative: No tenderness to the chest wall. No pain with deep breath. Resp normal respiratory effort and clear to auscultation bilaterally Effort and Inspection: Negative for pain with movement Auscultation: Negative for rales, rhonchi or wheezes Cardio regular rate and regular rhythm GI normal to inspection, nondistended, normoactive bowel sounds GI Narrative: Abdomen does have some tenderness in the left mid abdomen/flank area just directly lateral to the umbilicus and then slightly below that in the left lower quadrant. I am not getting left upper abdominal tenderness. I get no CVA tenderness. I see no rashes or skin changes. Bowel sounds are normal. I feel no masses. I hear no bruit in his abdomen. Back/Spine no CVA tenderness Extremity normal to inspection General Extremety ED: Negative for tenderness Neuro oriented x3 Sensorium / Orientation: alert Psych mental status grossly normal Skin no rashes or lesions noted and no wounds MDM MDM MDM Narrative Medical decision making narrative: Patient's white count is high at 19.1. But he is also been on prednisone and this is the likely cause. He has not been having fevers. His urine is clean. I will check a chest x-ray to make sure we do not see an infiltrate. However he is not really having symptoms of that at all. Electrolytes are overall unremarkable. Glucose is minimally up at 125. LFTs are normal. Urine is clean. Troponin is normal. CT scan shows possible recently passed stone. His pain is now resolved so this is a possibility but I do not know if this is explaining all of his symptoms. He now tells me that he has had pain that occurs in his left lower quadrant almost all his life. He states it will randomly appear and he either works through it or he stops. He has no idea what causes it. He does admit that he has been constipated. But he is having no nausea vomiting. If he is still moving his bowels or to small a ashley. I do not think the CT possible ileus matches the clinical picture. I think there is a component of constipation though. As long as his chest x-ray shows no marked infiltrate I think we can get him home. He tried Metamucil at home. I will send him home with magnesium citrate to see if we get his bowels moving. He is also been on pain meds recently which has slowed down his bowels. I recommended close follow-up with his family doctor for continued evaluation of his symptoms. Single view x-ray of his chest looked at by me shows no sign of acute infiltrative process. Lab Data Attestation: I reviewed the patient's lab results. Labs: Laboratory Results - last 24 hr 08/31/21 08/31/21 08/31/21 04:28 04:33 04:33 WBC 19.1 H RBC 4.35 L Hgb 13.4 Hct 39.6 L MCV 91.0 MCH 30.8 MCHC 33.8 RDW Std Deviation 43.2 RDW Coeff of Joshua 13.0 Plt Count 334 MPV 9.7 Immature Gran % (Auto) 1.000 H Neut % (Auto) 83.5 H Lymph % (Auto) 6.7 L Mccone % (Auto) 7.7 Eos % (Auto) 0.8 Baso % (Auto) 0.3 Absolute Neuts (auto) 16.0 H Absolute Lymphs (auto) 1.28 Nucleated RBC % 0 Sodium 138 Potassium 4.5 Chloride 104 Carbon Dioxide 30.0 Anion Gap 4 L BUN 18 Creatinine 1.17 Estim Creat Clear Calc 44.66 Est GFR (MDRD) Af Amer 76 Est GFR (MDRD) Non-Af 63 BUN/Creatinine Ratio 15.4 Glucose 125 H Calcium 8.7 Total Bilirubin 0.80 AST 43 H ALT 20 Alkaline Phosphatase 95 Troponin I High Sens 12 Total Protein 6.8 Albumin 2.9 L Globulin 3.9 Albumin/Globulin Ratio 0.7 L Urine Color Yellow Urine Clarity Clear Urine pH 6.0 Ur Specific [place] 1.025 Urine Protein Negative Urine Glucose (UA) Normal Urine Ketones Negative Urine Occult Blood 10 H Urine Nitrite Negative Urine Bilirubin Negative Urine Urobilinogen Normal Ur Leukocyte Esterase Negative Urine RBC 0-5 SEEN Urine WBC 0 SEEN Ur Squamous Epith Cells 0 SEEN Calcium Oxalate Crystal RARE Urine Bacteria RARE Urine Mucus 0 SEEN Radiography Diagnostic Testing: Clinical Impression(s) from Imaging Studies Abdomen/Pelvis CT 08/31/21 04:19 IMPRESSION: Tiny calculus in the bladder near the left ureteral orifice may have recently passed from the left kidney/ureter. No hydronephrosis. Colonic diverticulosis without evidence of acute diverticulitis. Borderline dilated small bowel mid to lower abdomen possible ileus or enteritis. Prominent bladder wall likely nondistention, correlate for cystitis. Electronically Signed: Judith Vogt MD at 5:35 EDT , EKG Initial EKG: Comments: EKG done for history of heart disease read by me shows a normal sinus rhythm with tachycardic rate at 111. No ventricular ectopy. No acute ST elevation or depression. WA interval, QRS duration are normal. QTc is slightly long at 492 ms. I looked and did not find an old 1 available in our system to compare to. Discharge Plan Triage Chief Complaint: Chest Other ED Provider: Valente Segura Dx/Rx/DC Orders Clinical Impression: Acute left flank pain, Bladder stone, Constipation Instructions: ED Flank Pain, Uncertain Cause Prescriptions: No Action aspirin 81 mg tablet,delayed release (DR/EC) 81 mg PO QDAY RF: 0 calcium carbonate-vitamin D3 [Calcium 600 with Vitamin D3] 600 mg(1,500mg) - 200 unit tablet 1 tab PO QDAY RF: 0 omega-3 fatty acids [Fish Oil Concentrate] 1,000 mg capsule 1,200 mg PO QDAY RF: 0 nitroglycerin 0.4 mg tablet, sublingual 0.4 mg SUBLINGUAL Q5-15M PRN (Reason: chest pain) Qty: 25 RF: 3 cyclobenzaprine 5 mg tablet 5 mg PO Q8H PRN PRN (Reason: muscle spasms) RF: 0 atorvastatin 40 mg tablet 20 mg PO .every other day Qty: 45 RF: 3 evcluhlhaci-mxnogopmt-gqi C-Mn 1 EACH tablet 1 ea PO DAILY RF: 0 prednisone 20 mg tablet 40 mg PO DAILY Qty: 8 RF: 0 potassium chloride 20 mEq tablet extended release 20 meq PO BID Qty: 6 RF: 0 metoprolol tartrate 25 mg tablet 25 mg PO BID Qty: 180 RF: 3 losartan 25 mg tablet 25 mg PO DAILY Qty: 90 RF: 4 ticagrelor 90 mg tablet 90 mg PO BID Qty: 180 RF: 3 hydrochlorothiazide 12.5 mg tablet 12.5 mg PO DAILY Qty: 90 RF: 3 Primary Care Provider: Will Subramanian Referrals: Will Subramanian MD [Primary Care Provider] - As soon as possible Disposition Disposition: Home, Self Care
[2021-08-31 04:38] LABS: Mucous, Urine 0 SEEN /hpf (<or=2+); Squamous Epithelial Cells - UA 0 SEEN /hpf (0-5); White Blood Cells 0 SEEN /hpf (0-5)
[2021-08-31 04:39] LABS: Color, Urine Yellow (Yellow); Glucose, Dipstick Normal (Normal); Ketone-Dipstick Negative (Negative); Leukocyte Esterase-Dipstick Negative /ul (Negative); Nitrite-Dipstick Negative (Negative); Occult Blood-Urine 10 /ul (Negative); Protein-Dipstick Negative (Negative); Specific Gravity, Urine 1.025 (1.002-1.030); Urine Bilirubin Dipstick Negative (Negative); Urine Clarity Clear (Clear); Urine Urobilinogen Normal (Normal)
[2021-08-31 04:39] LABS: Absolute Lymphocyte Count 1.28 X10^3/uL (0.83-4.51); Basophil# 0.06 X10^3/uL; Basophil% 0.3 % (0-1); Eosinophil# 0.16 X10^3/uL; Eosinophils% 0.8 % (0-5); Hematocrit 39.6 % (40-54); Hemoglobin 13.4 g/dL (13.0-16.5); Lymphocyte # 1.28 X10^3/ul (0.83-4.51); Lymphocyte % 6.7 % (19-41); Mean Corp Hgb Conc 33.8 g/dL (32-36); Mean Corpuscular Hgb 30.8 pg (27.0-32.0); Mean Platelet Vol. 9.7 fl (6.2-12.0); Monocyte# 1.47 X10^3/uL; Monocyte% 7.7 % (0-10); NRBC Flagged by Analyzer 0 % (0-5); Neutrophil # 15.97 X10^3/uL (2.7-7.7); Neutrophil % 83.5 % (47-70); Platelet Count 334 K/mm3 (150-450); RBC Distribution Width SD 43.2 fl (35.1-43.9); Red Blood Count 4.35 M/mm3 (4.6-6.2); White Blood Count 19.1 K/mm3 (4.4-11.0)
[2021-08-31] MEDS: Morphine 4 MG/ML Syringe IV (04:43)
[2021-08-31 04:49] LABS: Calcium Oxalate Crystals Ur RARE /hpf (<or=2+); Red Blood Cells-Urine 0-5 SEEN /hpf (0-5)
[2021-08-31 04:50] LABS: Bacteria RARE /hpf (None Seen)
[2021-08-31 05:05] LABS: ALB/GLOB Ratio 0.7 RATIO (0.9-2.4); AST(SGOT) 43 U/L (15-37); Alanine Aminotransfer ALT/SGPT 20 U/L (16-61); Albumin, Serum 2.9 g/dL (3.2-5.0); Alkaline Phosphatase 95 U/L (45-117); Anion Gap 4 (5-15); BUN 18 mg/dL (7-18); BUN/Creat Ratio 15.4 RATIO (10-20); Calcium,Total 8.7 mg/dL (8.5-10.1); Chloride 104 mmol/L (98-107); Creatinine, Serum 1.17 mg/dL (0.70-1.30); EST Glomerular Filtration Rate 63 mL/min (>60); Est Glom Filt Rate - Afr Amer 76 mL/min (>60); Estimated Creatinine Clearance 44.66 ml/min; Globulin 3.9 g/dL (2.2-4.2); Glucose 125 mg/dL (74-106); Potassium 4.5 mmol/L (3.5-5.1); Protein, Total 6.8 g/dL (6.4-8.2); Sodium Level 138 mmol/L (136-145); Troponin-I HS 12 pg/mL (3.0-78.0)
--- NOTE | 2021-08-31 05:21 | RAD_ITS ---
STUDY: X-RAY CHEST REASON FOR EXAM: Male, 86 years old. ?pneumonia TECHNIQUE: AP portable. 5:55 AM. COMPARISON: 07/22/2020. FINDINGS: LUNGS: No consolidation. Reticular opacities in the lung bases likely scarring, unchanged. No pneumothorax. MEDIASTINUM: Aorta atherosclerotic. CARDIAC SILHOUETTE: Not enlarged. BONES AND SOFT TISSUES: Degenerative changes at the shoulders and dorsal spine. RAD/Chest 1 View (Portable) IMPRESSION: No evidence of active intrathoracic disease. Electronically Signed: Judith Vogt MD at 6:17 EDT ,
[2021-08-31] MEDS: Magnesium Citrate 300 ML PO (06:06)
[2021-08-31 06:09] VITALS: PULSE 92; RESP 18; O2SAT 99
== END 2021-08-31 06:11 | disposition home or self-care (01) ==
PROVIDERS: Emergency Provider Emergency Medicine; PCP Family Medicine; Visit Provider Emergency Medicine
DX: R10.9 Unspecified abdominal pain (principal); N21.0 Calculus in bladder; K59.00 Constipation, unspecified; E78.5 Hyperlipidemia, unspecified; I10 Essential (primary) hypertension; I25.10 Atherosclerotic heart disease of native coronary artery without angina pectoris; I25.2 Old myocardial infarction; G47.33 Obstructive sleep apnea (adult) (pediatric); Z79.82 Long term (current) use of aspirin; Z79.02 Long term (current) use of antithrombotics/antiplatelets; Z79.52 Long term (current) use of systemic steroids
CPT/HCPCS: 71045; 74177; 80053; 81001; 84484; 85025; 93005; 96361; 96374; 99282; J7030; Q9967; A4216

== ENCOUNTER 2021-09-17 08:36 | Outpatient (CLI) | payer MEDICARE, SELFPAY ==
[2021-09-17 08:39] LABS: Lyme Ab Screen Interpretation REF LAB
[2021-09-17 10:31] LABS: Erythrocyte Sedimentation Rate 28 mm/hr (0-20)
[2021-09-17 10:55] LABS: Anion Gap 8 (5-15); BUN 21 mg/dL (7-18); BUN/Creat Ratio 21.9 RATIO (10-20); CRP 5.97 mg/L (0.0-3.0); CRP, High Sensitivity Cardiac 5.03 mg/L; Chloride 107 mmol/L (98-107); Creatinine, Serum 0.96 mg/dL (0.70-1.30); EST Glomerular Filtration Rate 79 mL/min (>60); Est Glom Filt Rate - Afr Amer 96 mL/min (>60); Glucose 109 mg/dL (74-106); Magnesium 2.4 mg/dL (1.6-2.6); Potassium 3.2 mmol/L (3.5-5.1); Sodium Level 143 mmol/L (136-145)
[2021-09-18 20:39] LABS: Lyme Scn Total Ab w/Rflx Negative (Negative)
== END 2021-09-17 23:59 | disposition home or self-care (01) ==
LOC: MFPLAB 08:37
PROVIDERS: PCP Family Medicine; Visit Provider Family Medicine
DX: E87.6 Hypokalemia (principal); C61 Malignant neoplasm of prostate; R79.82 Elevated C-reactive protein (CRP); M25.50 Pain in unspecified joint; I25.10 Atherosclerotic heart disease of native coronary artery without angina pectoris
CPT/HCPCS: 36415; 80048; 83735; 84153; 85652; 86140; 86141; 86618

== ENCOUNTER → 2021-09-24 | Outpatient (CLI) | payer MEDICARE, SELFPAY ==
--- NOTE | 2021-09-24 08:15 | NM_ITS ---
CLINICAL: Male, 86 years old. increase ing pain, weakness and PSA and gt; 200 in patient with known prostate cancer WHOLE BODY NUCLEAR BONE SCAN TECHNIQUE: Following the IV administration of 24.9 mCi of Tc MDP, whole body bone imaging was performed with a gamma camera following a three hour delay. FINDINGS: Increased focal uptake is seen along the anterior lateral aspect of the right seventh rib. Increased uptake is also seen in the region of the pedicle of the T12 vertebrae on the left side. Focal increased uptake is also seen along the superior aspect of the left hemisacrum. These findings are suggestive of metastatic disease. Increased uptake is also seen at the level of the medial compartments of both knee joints as well as the shoulder joint suggestive of degenerative osteoarthritis. 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 Degenerative changes of the knee joints as well as both shoulder joints. Electronically Signed: Tony Hwang MD at 13:11 EDT ,
== END | disposition home or self-care (01) ==
LOC: NM 08:14
PROVIDERS: PCP Family Medicine; Referring Provider Family Medicine; Visit Provider Family Medicine
DX: M19.011 Primary osteoarthritis, right shoulder (principal); C61 Malignant neoplasm of prostate; M19.012 Primary osteoarthritis, left shoulder; M17.0 Bilateral primary osteoarthritis of knee; R97.20 Elevated prostate specific antigen [PSA]; M25.50 Pain in unspecified joint; R79.82 Elevated C-reactive protein (CRP)
CPT/HCPCS: 78306; A9503

== ENCOUNTER 2022-03-03 14:30 | Outpatient (RCR) | payer MEDICARE, SELFPAY ==
--- NOTE | 2022-02-08 11:18 | HP.PTEVAL ---
Patient's Visit Information ALEX LALA is a 86 year old M referred to Physical Therapy by Dr. Will Subramanian MD with a diagnosis of Gait ataxia. Date of Evaluation: 02/08/22 Physical Therapist: Will Shirley, DPT, OCS, CSCS - Visit Plan Frequency: 1-2x /Week Duration: 4-6 Weeks Plan: Biodex balance tests then likely 2x/week for 2-4 weeks for. 1. vestibular balance ex. 2. weight shift. teach HEP and work to I quickly. Pt doing VOR standing at home 60 sec 3x/day now. - Subjective My balance is off. I am beginnning to have problems with balance. Sometimes has to double step after stumble, climbing ladder feels like he is going backwards. Has no falls. No AD needed. No pain. No neuropathy. Not sure why balance is getting worse. Not employed. No regular exercises. 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 Sleep is OK sometimes but otherwise not normally sleeping great and it has been that way for years. Hobbies include the farm. - Objective Walks slowly but i into PT without AD. Trasnfers I chair and bed without UE. Steps one rail reciprocally up and down. VOR walking challenging as is stand on foam with ec. coordination to reciprocal toe adn heel tap is good. sensation LE WNL to gross light touch. Strength LE hips 4 and knees and ankles 4+. reflexes 2/3 patella and achilles. UE AROM to 90 flexdion due to tightness but good strength. - Balance/Special Test Scores Functional Gait Assessment Score: 26 % Disability: 13.3400 CATSIB Score (Max score 120 seconds): 115 Dizziness Score: 24 - Goals Goal 1:: I appropriate HEP to minimize future concerns with balance. Goal Time Frame: 4-6 Weeks Goal 2:: Pt feel 50% improvement in overall balance Goal Time Frame: 4-6 Weeks - Rehabilitation Potential Physical Therapy Diagnosis: balance concerns possibly wt shift vs vestibular weakness in nature. Rehabilitation Potential: Fair - Anticipated Interventions Patient/Client Instruction: Educate patient on: Condition, Plan of Care For the Purpose of:: To improve muscle performance and motor function, To improve gait and locomotor functions, To improve safety with gait Therapeutic Exercise to Include: Balance training, Gait and locomotor training, Neuromotor development For the Purpose of:: To improve muscle performance and motor function, To improve ability of physical actions for home/community/work/leisure, To improve balance, To improve safety with gait Thank you for the opportunity to evaluate your patient. For Medicare and Medicare HMO plans, please review the plan of care and approve it. It will need to be FAXED BACK to us at [phone] for Medicare purposes. For Medicare only, by signing this I certify the plan of care. Please let me know if there are questions or concerns regarding this plan of care. Physician Signature: Date:
--- NOTE | 2022-02-14 15:56 | HP.PTCOM_ITS ---
PT Communication Note 02/14/[address] Will Subramanian MD , Thank you for the referral of Ketan to [facility] for balance assessment and treatment. I have enclosed a copy of his balance tests for your review. In summation, his Fall risk assessment showed some deficits on firm surface with eyes open. His Limits of Stability test showed some deficits with posterior weight shift. His CTSIB test showed difficulty on firm surface with eyes open. With these results in mind, I plan to continue his POC as written in his Initial evaluation emphasizing weight shift exercises, firm ground balance ex and progression to HEP KERRI. Please contact me if there are questions regarding his therapy. Sincerely, Will Shirley, DPT, OCS, CSCS Contact Information
--- NOTE | 2022-04-25 08:15 | HP.PT.NRP ---
ALEX LALA was seen in my office for initial evaluation on 02/08/22. The following Plan of Care was established for this patient: Initial Frequency: 1-2x /Week Initial Duration: 4-6 Weeks Patient/Client Instruction: Educate patient on: Condition, Plan of Care For the Purpose of:: To improve muscle performance and motor function, To improve gait and locomotor functions, To improve safety with gait Therapeutic Exercise to Include: Balance training, Gait and locomotor training, Neuromotor development For the Purpose of:: To improve muscle performance and motor function, To improve ability of physical actions for home/community/work/leisure, To improve balance, To improve safety with gait This patient was last seen in our office 03/03/22. Pertinent comments regarding their Physical therapy will appear below: Pt seen 7 visits of POC and felt 30% better. He was to f/u one month later after doing HEP but cancelled that visit. At this point, it has been over 6 weeks and I will discontinue due to nonattendance. At this point I will be discontinuing this patient from physical therapy. I would be happy to see this patient again in the future if found appropriate by the physician. Thank you! Will Shirley, DPT, OCS, CSCS Balance/Gait/Functional tests - Balance/Special Test Scores Functional Gait Assessment Score: 26 % Disability: 13.3400 CATSIB Score (Max score 120 seconds): 115 Dizziness Score: 24 Lower Extremity Functional Score: 56
== END 2022-03-03 19:00 | disposition home or self-care (01) ==
LOC: PT 14:30
PROVIDERS: PCP Family Medicine; Referring Provider Family Medicine; Visit Provider Family Medicine
DX: R26.0 Ataxic gait (principal); R26.81 Unsteadiness on feet
CPT/HCPCS: 97110; 97162; 97750

== ENCOUNTER 2022-06-21 23:28 | Emergency (ER) | payer MEDICARE, SELFPAY ==
[2022-06-21 23:30] VITALS: BP 146/95; PULSE 92; RESP 15; TEMP 36.1; O2SAT 100
[2022-06-21 23:46] VITALS: BMI 30.5
--- NOTE | 2022-06-22 01:05 | RAD_ITS ---
INDICATION: weakness EXAMINATION/TECHNIQUE: X-RAY - XR Chest 1 View COMPARISON: None. FINDINGS: LINES/DEVICES: None. LUNGS: No consolidation, edema or effusion. No pneumothorax. MEDIASTINUM AND CARDIOVASCULAR STRUCTURES: Cardiac silhouette not enlarged. Central airways and mediastinal contour are unremarkable. BONES AND SOFT TISSUES: Unremarkable. RAD/Chest 1 View (Portable) IMPRESSION: No radiographic evidence of acute cardiopulmonary disease. Electronically Signed: Bora Sadler MD at 2:18 EDT ,
--- NOTE | 2022-06-22 01:05 | CT_ITS ---
INDICATION: dizziness EXAMINATION: CT BRAIN - CT Head or Brain W/O Contrast Injection TECHNIQUE: Multiple axial images were obtained of the head without intravenous contrast. A radiation dose optimization technique was used for this scan. IV Contrast dosage and agent: None. RADIATION DOSAGE (If Supplied By Facility): CTDIvol = ( 44.99 ) mGy, DLP = ( 880.47 ) mGycm COMPARISON: FINDINGS: BRAIN PARENCHYMA: No intra- or extra-axial hemorrhage. No evidence of acute infarct. No intracranial mass or mass effect. 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 Confluent chronic microvascular ischemic changes in the periventricular white matter. CSF SPACES: Appropriate for age. No hydrocephalus. Basal cisterns are patent. CALVARIUM, SKULL BASE, PARANASAL SINUSES AND MASTOID AIR CELLS: Clear. No discrete lytic or blastic abnormalities. ORBITS: Both globes, extraocular muscles, optic nerves and retrobulbar fat appear unremarkable. ASPECTS Score for Acute Strokes: 10 CT/Brain/Head without Contrast IMPRESSION: No acute intracranial abnormality. Electronically Signed: Bora Sadler MD at 3:50 EDT ,
--- NOTE | 2022-06-22 01:07 | EDS_ITS ---
HPI History of Present Illness Chief Complaint: Weakness Informant: patient and spouse/S.O. Onset/Context/Timing Onset: Days Context: Gradual Onset Timing: Intermittent Current Severity: Mild Maximum Severity: Mild Narrative Narrative: 86-year-old male known history of prostate cancer with bony mets significant cardiac disease with [place] and 1 stent. He has been generally weak for last several days. He also has been battling dizziness for several weeks. Denies any fall injury or trauma. Denies any localizing weakness. States today he fell asleep in his chair and he was too weak to get up and get out of it. They called the squad and had him brought in. He denies any fever or chills. He denies any nausea, vomiting or diarrhea. He denies any dysuria or hematuria. He denies any headache or chest pain. Denies any recent illness or hospitalization. Prior similar symptoms: Yes Recent Illness/Hospitalization: No PFSH [facility] Medical History Atherosclerotic heart disease of [place] coronary artery without angina pectoris Bilateral carotid bruits Cardiac murmur Diastolic dysfunction Essential hypertension Hyperlipidemia Hypertension Nonrheumatic aortic (valve) stenosis Old myocardial infarction SHAMAR (obstructive sleep apnea) Premature atrial contractions Home Medications aspirin 81 mg tablet,delayed release 81 mg PO QDAY 11/06/17 [History Last Taken Unknown] calcium carbonate 600 mg-vitamin D3 5 mcg (200 unit) tablet (Calcium 600 with Vitamin D3) 1 tab PO QDAY 11/06/17 [History Last Taken Unknown] omega-3 fatty acids 1,000 mg capsule (Fish Oil Concentrate) 1,200 mg PO QDAY 11/06/17 [History Last Taken Unknown] nitroglycerin 0.4 mg sublingual tablet 0.4 mg sublingual Q5-15M PRN chest pain #25 tabs 12/31/18 [Rx Last Taken Unknown] ulxineckxrf-qamitnycr-gua C-Mn 750 mg-600 mg-55 mg-5 mg tablet 1 ea PO DAILY 05/19/19 [History Last Taken Unknown] losartan 25 mg tablet 25 mg PO DAILY #90 tabs 04/02/21 [Rx Last Taken Unknown] hydrochlorothiazide 12.5 mg tablet 12.5 mg PO DAILY #90 tabs 06/28/21 [Rx Last Taken Unknown] ergocalciferol (vitamin D2) 1,250 mcg (50,000 unit) capsule 1,250 mcg PO QWEEK 10/14/21 [History Last Taken Unknown] metoprolol tartrate 25 mg tablet 25 mg PO BID #180 tabs 03/28/22 [Rx Last Taken Unknown] apalutamide 60 mg tablet 180 mg PO DAILY 06/21/22 [History Last Taken Unknown] atorvastatin 20 mg tablet 20 mg PO QHS 06/21/22 [History Last Taken Unknown] cyclobenzaprine 5 mg tablet 5 mg PO TID PRN muscle relaxant 06/21/22 [History Last Taken Unknown] ticagrelor 90 mg tablet (Brilinta) 90 mg PO BID 06/21/22 [History Last Taken Unknown] zoledronic acid 4 mg/100 mL in mannitol 5 %-water intravenous piggybck See Rx Instructions .Route .COMPLEX 06/21/22 [History Last Taken Unknown] Allergy/AdvReac Type Severity Reaction Status Date / Time lisinopril AdvReac Severe cough Verified 06/21/22 23:38 Surgical History Postsurgical percutaneous transluminal coronary angioplasty (PTCA) status (~07/29/13) Presence of stent in coronary artery (~07/29/13) Social History Smoking Status: Never smoker alcohol intake: current details: Rare substance use type: does not use ROS ROS ED ROS Narrative Generalized weakness. Dizziness. Review of Systems ROS Unobtainable: Denies due to encephalopathy Constitutional Constitutional ED: Denies chills or fever(s) Eyes Eyes: Denies blurry vision ENT ENT ED: Denies ear pain Cardiovascular Cardiovascular: Denies chest pain Respiratory/Chest Respiratory/Chest: Denies cough or dyspnea Gastrointestinal Gastrointestinal: Denies abdominal pain, constipation, diarrhea, melena, nausea or vomiting Genitourinary Genitourinary ED: Denies dysuria Musculoskeletal Musculoskeletal: Denies arthralgias Integumentary Denies abscess Neurologic Neurologic: Denies headache(s) Psychiatric Psychiatric: Denies anxiety Endocrine Endocrinology: Denies cold intolerance Hematologic/Lymphatic Hematologic/Lymphatic: Reports none Allergic/Immunologic Allergic/Immunologic ED: Denies mouth swelling or tongue swelling EXAM Physical Exam Narrative Exam Narrative: 86-year-old male lying in bed. bedside. No acute distress. Vital signs stable afebrile. Pulse ox 100% on room air no signs hypoxia. H EENT exam unremarkable atraumatic. Pupils round reactive light. No facial droop. Normal speech. Neck nontender no JVD. Lungs clear to auscultation bilaterally. Heart regular rhythm rate about 90 no murmur. Chest wall nontender. Abdomen soft nontender. Moving all 4 extremities. Calves are nontender without edema or cords. Dorsi plantarflexion intact. 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 He is able to lift either leg off the bed. There is no cauda equina or saddle anesthesia. He has normal medial thigh sensation. Back is nontender. Neurologically is awake and alert without any focal motor deficits. Const Vital Signs: 06/21/22 23:30 06/21/22 23:58 06/22/22 01:35 Temperature 97.0 F L Temperature Source Temporal Pulse Rate 92 67 Respiratory Rate 15 15 Respiratory Effort Normal Non-Labored Respiratory Pattern Normal Blood Pressure 146/95 H 155/92 H Blood Pressure Mean 112 113 Pulse Ox 100 98 Oxygen Delivery Method Room Air Room Air Positive well nourished and well developed; Negative for cachectic, contractures or unkempt General Appearance ED: well developed and NAD; Negative for unkempt, cachectic, contractures, cyanotic, diaphoretic or pallor Nutritional Appearance: Negative for cachectic HEENT Reports moist mucous membranes; Denies dry mucous membranes Negative for trauma or tenderness Mouth ED: No dry mucous membranes Mouth: No dry mucous membranes Eyes PERRL and EOMs intact bilaterally General Eye ED: Negative for pale conjunctiva or scleral icterus Neck no lymphadenopathy, supple and no JVD General: Negative for tenderness Chest Wall inspection of chest normal and palpation of chest normal Chest: Negative for other Resp normal respiratory effort and clear to auscultation bilaterally Effort and Inspection: Negative for retractions Auscultation: Negative for rales, rhonchi or wheezes Cardio regular rate, regular rhythm, S1 normal heart sound, S2 normal heart sound and no murmurs GI normal to inspection, nondistended, normoactive bowel sounds, non-tender, non- distended and no masses Inspection: Negative for abdominal distention Auscultation: normoactive bowel sounds Palpation: soft; Negative for tender or guarding Back/Spine no CVA tenderness General Back: Negative for CVA tenderness Cervical Spine: Negative for cervical spine tenderness Thoracic Spine / Upper Back: Negative for thoracic spinal tenderness Lumbar Spine / Lower Back: Negative for lumbar spinal tenderness Extremity normal to inspection General Extremety ED: Negative for edema or tenderness General Extremity: Negative for edema Neuro oriented x3 Sensorium / Orientation: alert; Negative for orientation impaired Motor Exam: strength 5/5 throughout Psych mental status grossly normal Appearance: Negative for unkempt Attitude: No agitated Mood & Affect: Negative for depressed, anxious or tearful Skin no rashes or lesions noted, no wounds and skin turgor normal General Skin Exam: Negative for elasticity normal, jaundice or pallor Lesions: No lesion noted Rashes: No rashes noted Trauma: Negative for abrasion Wounds: Negative for wounds noted MDM MDM MDM Narrative Medical decision making narrative: 86-year-old male with generalized weakness and dizziness. History of prostate serial bony mets. This may be from anemia, dehydration electrolyte abnormalities or viral syndrome or bacterial infection. He does not have cauda equina he could have bony mets to his spine and could have impingement to his lumbar spinal cord but there is not no signs on exam. The dizziness could be brain mets versus other etiologies. He will have a CAT scan of his brain screening labs done and he will need to be ambulated. To see if he strong enough to walk. Repeat exam patient is doing well at 3:05 AM. We went over his test results. Nurses will attempt to walk the patient. Patient doing well on repeat exam at 3:48 AM. He was sitting in a chair he stood up without any difficulty. Nurses said he walked in the room without difficulty. Slightly unsteady but not a significant fall risk. Discussed with both he and his all his lab results and tests and both are comfortable with him being discharged home. Fall primary care [facility] states sounds like about getting an MRI of his lumbar spine. Again he very well may have spinal mets he does not have signs of spinal cord compression or impingement syndrome. He knows to return if he is getting weaker or feels worse or is unable to ambulate around his house. History & Record Review Discussion w/independent historian: Patient Lab Data Attestation: I reviewed the patient's lab results. Lab results narrative: CBC shows Wigraine 0.1. H&H 14 and 43. Platelets 282. UA negative. Chest x- ray no acute process. EKG shows a sinus rhythm rate of 68. Chemistries unremarkable gap of 5. BUN 22 creatinine 1.2. Liver enzymes negative. Labs: Laboratory Results - last 24 hr 06/22/22 06/22/22 06/22/22 01:22 01:27 01:27 WBC 8.1 RBC 4.48 L Hgb 14.2 Hct 43.2 MCV 96.4 H MCH 31.7 MCHC 32.9 RDW Std Deviation 45.6 H RDW Coeff of Joshua 12.8 Plt Count 282 MPV 10.3 Immature Gran % (Auto) 0.700 Neut % (Auto) 70.4 H Lymph % (Auto) 11.6 L [place] % (Auto) 11.1 H Eos % (Auto) 5.5 H Baso % (Auto) 0.7 Absolute Neuts (auto) 5.7 Absolute Lymphs (auto) 0.93 Nucleated RBC % 0 Sodium 142 Potassium 4.0 Chloride 109 H Carbon Dioxide 28.0 Anion Gap 5 BUN 22 H Creatinine 1.21 Estim Creat Clear Calc 43.18 Est GFR (MDRD) Af Amer 73 Est GFR (MDRD) Non-Af 61 BUN/Creatinine Ratio 18.2 Glucose 112 H Calcium 8.8 Total Bilirubin 0.40 AST 17 ALT 17 Alkaline Phosphatase 93 Total Protein 6.9 Albumin 3.6 Globulin 3.3 Albumin/Globulin Ratio 1.1 Urine Color Yellow Urine Clarity Clear Urine pH 7.0 Ur Specific [place] 1.010 Urine Protein Negative Urine Glucose (UA) Normal Urine Ketones Negative Urine Occult Blood Negative Urine Nitrite Negative Urine Bilirubin Negative Urine Urobilinogen Normal Ur Leukocyte Esterase Negative Urine RBC 0 SEEN Urine WBC 0 SEEN Ur Squamous Epith Cells 0 SEEN Urine Bacteria RARE Urine Mucus 0 SEEN Radiography Chest X-Ray - ED: 1 View, Read by ED Physician, Heart, Lungs, Mediastinum, Bony Structures, No Acute Disease and Chronic Changes Diagnostic Testing: Clinical Impression(s) from Imaging Studies Chest X-Ray 06/22/22 01:05 IMPRESSION: No radiographic evidence of acute cardiopulmonary disease. Electronically Signed: Bora Sadler MD at 2:18 EDT , Chest x-ray, portable, single view, interpreted by myself shows no acute abnormality. Chronic changes. Normal cardiac silhouette. No infiltrates. Rhythm Strip Rhythm Strip: Sinus Rhythm Rate: 68 Ectopy: None EKG Initial EKG: Attestation: I personally reviewed and interpreted this EKG as follows: Interpretation: Sinus Rhythm and No Acute Injury Pattern Comments: Normal sinus rhythm. Rate of 68. No acute signs of [place], ischemia or significant dysrhythmia. Discharge Plan Triage Chief Complaint: Weakness ED Provider: Quincy Staton Dx/Rx/DC Orders Clinical Impression: Weakness, History of coronary artery disease, History of prostate cancer Instructions: ED Weakness (Uncertain Cause) Prescriptions: No Action aspirin 81 mg tablet,delayed release (DR/EC) 81 mg PO QDAY calcium carbonate-vitamin D3 [Calcium 600 with Vitamin D3] 600 mg(1,500mg) - 200 unit tablet 1 tab PO QDAY omega-3 fatty acids [Fish Oil Concentrate] 1,000 mg capsule 1,200 mg PO QDAY nitroglycerin 0.4 mg tablet, sublingual 0.4 mg SUBLINGUAL Q5-15M PRN (Reason: chest pain) Qty: 25 3RF ypekrhrgqsu-baimyjmpl-fbh C-Mn 1 EACH tablet 1 ea PO DAILY cyclobenzaprine 5 mg Tablet 5 mg PO TID PRN (Reason: muscle relaxant) Brilinta 90 mg Tablet 90 mg PO BID zoledronic [id number] [Zometa] 4 mg/100 mL Piggyback See Rx Instructions .ROUTE .COMPLEX Rx Instructions: 1 ea intravenously monthly apalutamide 60 mg Tablet 180 mg PO DAILY atorvastatin 20 mg tablet 20 mg PO QHS Rx Instructions: 20 mg orally daily; may reduce to every other day when myalgias flair.; losartan 25 mg tablet 25 mg PO DAILY Qty: 90 4RF hydrochlorothiazide 12.5 mg tablet 12.5 mg PO DAILY Qty: 90 3RF ergocalciferol (vitamin D2) 1,250 mcg (50,000 unit) capsule 1,250 mcg PO QWEEK metoprolol tartrate 25 mg tablet 25 mg PO BID Qty: 180 3RF Primary Care Provider: Will Subramanian Referrals: Will Subramanian MD [Primary Care Provider] - As soon as possible Denilson Fernandes DO [Med Staff - Active Staff] - As soon as possible Activity Restrictions/Additional Instructions: Your labs, EKG and x-ray were unremarkable tonight. Call and follow-up with Dr. Denilson Fernandes your oncologist and/or your primary care physician. Plenty of fluids and rest. If you are unable to ambulate you will need to return. If you have continued back pain with weakness in the legs or need to get an MRI of your lumbar and/or thoracic spine Disposition Disposition: Home, Self Care
[2022-06-22 01:30] LABS: Mucous, Urine 0 SEEN /hpf (<or=2+); Red Blood Cells-Urine 0 SEEN /hpf (0-5); Squamous Epithelial Cells - UA 0 SEEN /hpf (0-5); White Blood Cells 0 SEEN /hpf (0-5)
[2022-06-22 01:32] LABS: Color, Urine Yellow (Yellow); Glucose, Dipstick Normal (Normal); Ketone-Dipstick Negative (Negative); Leukocyte Esterase-Dipstick Negative /ul (Negative); Nitrite-Dipstick Negative (Negative); Occult Blood-Urine Negative /ul (Negative); Protein-Dipstick Negative (Negative); Urine Bilirubin Dipstick Negative (Negative); Urine Clarity Clear (Clear); Urine Urobilinogen Normal (Normal)
[2022-06-22 01:32] LABS: Absolute Lymphocyte Count 0.93 X10^3/uL (0.83-4.51); Absolute Neutrophil Count 5.7 X10^3/uL (2.0-7.7); Basophil# 0.06 X10^3/uL; Basophil% 0.7 % (0-1); Eosinophil# 0.44 X10^3/uL; Eosinophils% 5.5 % (0-5); Hematocrit 43.2 % (40-54); Hemoglobin 14.2 g/dL (13.0-16.5); Lymphocyte # 0.93 X10^3/ul (0.83-4.51); Lymphocyte % 11.6 % (19-41); Mean Corp Hgb Conc 32.9 g/dL (32-36); Mean Corpuscular Hgb 31.7 pg (27.0-32.0); Mean Corpuscular Volume 96.4 fL (80-94); Mean Platelet Vol. 10.3 fl (6.2-12.0); Monocyte# 0.89 X10^3/uL; Monocyte% 11.1 % (0-10); NRBC Flagged by Analyzer 0 % (0-5); Neutrophil # 5.67 X10^3/uL (2.7-7.7); Neutrophil % 70.4 % (47-70); Platelet Count 282 K/mm3 (150-450); RBC Distribution Width CV 12.8 % (11.6-14.6); RBC Distribution Width SD 45.6 fl (35.1-43.9); Red Blood Count 4.48 M/mm3 (4.6-6.2); White Blood Count 8.1 K/mm3 (4.4-11.0)
[2022-06-22] MEDS: 0.9% Normal Saline 1,000 ML 1000 ML IV (01:33)
[2022-06-22 01:35] VITALS: BP 155/92; PULSE 67; RESP 15; O2SAT 98
[2022-06-22 02:08] LABS: Bacteria RARE /hpf (None Seen)
[2022-06-22 02:10] LABS: ALB/GLOB Ratio 1.1 RATIO (0.9-2.4); AST(SGOT) 17 U/L (15-37); Alanine Aminotransfer ALT/SGPT 17 U/L (16-61); Albumin, Serum 3.6 g/dL (3.2-5.0); Alkaline Phosphatase 93 U/L (45-117); Anion Gap 5 (5-15); BUN 22 mg/dL (7-18); BUN/Creat Ratio 18.2 RATIO (10-20); Calcium,Total 8.8 mg/dL (8.5-10.1); Chloride 109 mmol/L (98-107); Creatinine, Serum 1.21 mg/dL (0.70-1.30); EST Glomerular Filtration Rate 61 mL/min (>60); Est Glom Filt Rate - Afr Amer 73 mL/min (>60); Estimated Creatinine Clearance 43.18 ml/min; Globulin 3.3 g/dL (2.2-4.2); Glucose 112 mg/dL (74-106); Protein, Total 6.9 g/dL (6.4-8.2); Sodium Level 142 mmol/L (136-145)
[2022-06-22 04:09] VITALS: BP 150/89; PULSE 85; RESP 20; O2SAT 96
== END 2022-06-22 04:09 | disposition home or self-care (01) ==
PROVIDERS: Emergency Provider Emergency Medicine; PCP Family Medicine; Visit Provider Emergency Medicine
DX: R53.1 Weakness (principal); C79.51 Secondary malignant neoplasm of bone; I10 Essential (primary) hypertension; R42 Dizziness and giddiness; I25.10 Atherosclerotic heart disease of native coronary artery without angina pectoris; Z95.5 Presence of coronary angioplasty implant and graft; E78.5 Hyperlipidemia, unspecified; Z79.899 Other long term (current) drug therapy; Z85.46 Personal history of malignant neoplasm of prostate
CPT/HCPCS: 70450; 71045; 80053; 81001; 85025; 93005; 96360; 96361; 99284; J7030; A4216

== ENCOUNTER → 2022-07-28 | Outpatient (CLI) | payer MEDICARE, SELFPAY ==
[2022-07-28 12:47] LABS: Vitamin B12 220 pg/mL (211-911); Vitamin D,25 Hydroxy 65.8 ng/mL
[2022-07-28 13:04] LABS: Thyroid Stim Hormone (TSH) 2.71 uIU/mL (0.358-3.74)
[2022-07-29 16:09] LABS: PROEL- A/G Ratio 1.5 (0.7-1.7); PROEL- Albumin 3.5 g/dL (2.9-4.4); PROEL- Alpha-1 Globulin 0.2 g/dL (0.0-0.4); PROEL- Alpha-2 Globulin 0.7 g/dL (0.4-1.0); PROEL- Beta Globulin 0.9 g/dL (0.7-1.3); PROEL- Gamma Globulin 0.6 g/dL (0.4-1.8); PROEL- Globulin, Total 2.4 g/dL (2.2-3.9); PROEL- TOTAL PROTEIN 5.9 g/dL (6.0-8.5)
== END | disposition home or self-care (01) ==
PROVIDERS: PCP Family Medicine; Visit Provider Family Medicine
DX: R53.83 Other fatigue (principal); M81.0 Age-related osteoporosis without current pathological fracture
CPT/HCPCS: 36415; 82306; 82607; 82746; 84165; 84443

== ENCOUNTER 2022-10-15 10:17 | Emergency (ER) | payer MEDICARE, SELFPAY ==
[2022-10-15 10:18] VITALS: BP 189/109; PULSE 80; RESP 14; TEMP 36.6; O2SAT 98; BMI 31.1
--- NOTE | 2022-10-15 11:00 | RAD_ITS ---
EXAM: XR ABDOMEN, 2 VIEWS AND XR CHEST, 1 VIEW CLINICAL INDICATION: Left upper quadrant pain. TECHNIQUE: Frontal view of the chest, frontal view of the abdomen/pelvis and upright or decubitus view of the abdomen. COMPARISON: AP portable chest 08/06/2022. No prior abdominal radiographs for comparison. FINDINGS: CHEST: LUNGS AND PLEURAL SPACES: Horizontally due to scarring in left lower lobe is unchanged. No suspicious infiltrates. No pneumothorax. No effusion. HEART: Unremarkable. Cardiac silhouette not enlarged. MEDIASTINUM: Central airways and mediastinal contour are unremarkable. ABDOMEN: INTRAPERITONEAL SPACE: See below. GASTROINTESTINAL TRACT: Gas in small and large bowel loops but no bowel obstruction. ORGANS: Unremarkable as visualized. No organomegaly. No abnormal calcifications. TUBES, LINES AND DEVICES: None. 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 Degenerative disc space height narrowing with degenerative vacuum phenomenon at L4-L5 disc space level. SOFT TISSUES: Multiple surgical clips in the pelvis. RAD/Acute Abdomen Inc Chest IMPRESSION: No acute findings in the chest, abdomen or pelvis. Electronically Signed: Jhon Bello MD at 12:10 EDT ,
--- NOTE | 2022-10-15 11:00 | EKG12_ITS ---
Test Reason : GI Blood Pressure : / mmHG Vent. Rate : 066 BPM Atrial Rate : 066 BPM P-R Int : 176 ms QRS Dur : 100 ms QT Int : 448 ms P-R-T Axes : -38 005 244 degrees QTc Int : 469 ms Unusual P axis, possible ectopic atrial rhythm ST & T wave abnormality, consider inferior ischemia Prolonged QT Abnormal ECG Confirmed by DAGO MOLINA, ELVIA ([id number]), telegraph editor OCTAVIANO CORTÉS ([id number]) on 10/20/2022 8:30:27 AM Referred By: Confirmed By:RAJESH LOZA MD
[2022-10-15 11:17] LABS: Absolute Lymphocyte Count 1.36 X10^3/uL (0.83-4.51); Absolute Neutrophil Count 7.1 X10^3/uL (2.0-7.7); Basophil# 0.04 X10^3/uL; Basophil% 0.4 % (0-1); Eosinophil# 0.29 X10^3/uL; Hematocrit 40.8 % (40-54); Hemoglobin 13.9 g/dL (13.0-16.5); Lymphocyte # 1.36 X10^3/ul (0.83-4.51); Lymphocyte % 14.1 % (19-41); Mean Corp Hgb Conc 34.1 g/dL (32-36); Mean Corpuscular Hgb 31.7 pg (27.0-32.0); Mean Corpuscular Volume 93.2 fL (80-94); Mean Platelet Vol. 11.2 fl (6.2-12.0); Monocyte# 0.82 X10^3/uL; Monocyte% 8.5 % (0-10); NRBC Flagged by Analyzer 0 % (0-5); Neutrophil # 7.09 X10^3/uL (2.7-7.7); Neutrophil % 73.5 % (47-70); Platelet Count 254 K/mm3 (150-450); RBC Distribution Width CV 12.7 % (11.6-14.6); RBC Distribution Width SD 43.7 fl (35.1-43.9); Red Blood Count 4.38 M/mm3 (4.6-6.2); White Blood Count 9.7 K/mm3 (4.4-11.0)
[2022-10-15 11:37] LABS: ALB/GLOB Ratio 1.1 RATIO (0.9-2.4); AST(SGOT) 21 U/L (15-37); Alanine Aminotransfer ALT/SGPT 21 U/L (16-61); Albumin, Serum 3.5 g/dL (3.2-5.0); Alkaline Phosphatase 90 U/L (45-117); Anion Gap 5 (5-15); BUN 22 mg/dL (7-18); BUN/Creat Ratio 18.6 RATIO (10-20); Chloride 108 mmol/L (98-107); Creatinine, Serum 1.18 mg/dL (0.70-1.30); EST Glomerular Filtration Rate 62 mL/min (>60); Est Glom Filt Rate - Afr Amer 75 mL/min (>60); Estimated Creatinine Clearance 43.47 ml/min; Globulin 3.1 g/dL (2.2-4.2); Glucose 124 mg/dL (74-106); Lipase 29 U/L (13-75); Potassium 3.1 mmol/L (3.5-5.1); Protein, Total 6.6 g/dL (6.4-8.2); Sodium Level 143 mmol/L (136-145)
[2022-10-15 11:48] VITALS: BP 145/68; PULSE 74; RESP 16; O2SAT 95
[2022-10-15] MEDS: 0.9% Normal Saline 1,000 ML 125 ML IV (12:28)
--- NOTE | 2022-10-15 13:27 | EDS_ITS ---
HPI History of Present Illness Chief Complaint: Abd Pain Narrative Narrative: Patient is a 87-year-old male who is presenting to the ER with chief complaint of left lower back pain, flank pain, and feared constipation. Patient states he has not had a bowel movement over 24 hours. Patient has no fever, chills. No nausea or vomiting. is at bedside. Patient has never had any abdominal surgery. He still has gallbladder, appendix, no previous surgeries to large or small bowel. Patient has been taking milk of magnesia last night and today tried to help with bowel movements with no success. Patient is presenting today because he has not had a bowel movement in the past 24 hours. Patient has no significant distention to his abdomen. No history of kidney stone. No radiation of pain, numbness or tingling down into his legs. No rash. [facility] Medical History Atherosclerotic heart disease of [place] coronary artery without angina pectoris Bilateral carotid bruits Cardiac murmur Diastolic dysfunction Essential hypertension Hyperlipidemia Hypertension Nonrheumatic aortic (valve) stenosis Old myocardial infarction SHAMAR (obstructive sleep apnea) Premature atrial contractions Home Medications aspirin 81 mg tablet,delayed release 81 mg PO QDAY 11/06/17 [History Last Taken Unknown] calcium carbonate 600 mg-vitamin D3 5 mcg (200 unit) tablet (Calcium 600 with Vitamin D3) 1 tab PO QDAY 11/06/17 [History Last Taken Unknown] omega-3 fatty acids 1,000 mg capsule (Fish Oil Concentrate) 1,200 mg PO QDAY 11/06/17 [History Last Taken Unknown] nitroglycerin 0.4 mg sublingual tablet 0.4 mg sublingual Q5-15M PRN chest pain #25 tabs 12/31/18 [Rx Last Taken Unknown] anbsdzgkdmm-piqkhjukp-zme C-Mn 750 mg-600 mg-55 mg-5 mg tablet 1 ea PO DAILY 05/19/19 [History Last Taken Unknown] losartan 25 mg tablet 25 mg PO DAILY #90 tabs 04/02/21 [Rx Last Taken Unknown] ergocalciferol (vitamin D2) 1,250 mcg (50,000 unit) capsule 1,250 mcg PO QWEEK 10/14/21 [History Last Taken Unknown] metoprolol tartrate 25 mg tablet 25 mg PO BID #180 tabs 03/28/22 [Rx Last Taken Unknown] apalutamide 60 mg tablet 180 mg PO DAILY 06/21/22 [History Last Taken Unknown] atorvastatin 20 mg tablet 20 mg PO QHS 06/21/22 [History Last Taken Unknown] cyclobenzaprine 5 mg tablet 5 mg PO TID PRN muscle relaxant 06/21/22 [History Last Taken Unknown] zoledronic acid 4 mg/100 mL in mannitol 5 %-water intravenous piggybck See Rx Instructions .Route .COMPLEX 06/21/22 [History Last Taken Unknown] hydrochlorothiazide 12.5 mg tablet See Rx Instructions .Route .COMPLEX #90 tabs 08/09/22 [Rx Last Taken Unknown] hydrocodone-acetaminophen 5-325mg 5mg-325mg 1 tab PO Q6H PRN PRN Pain 3 days #8 TABLETS 10/15/22 [Rx Last Taken Unknown] magnesium 250 mg tablet 250 mg PO DAILY 10/15/22 [History Last Taken Unknown] meloxicam 7.5 mg tablet 7.5 mg PO DAILY PAIN 10/15/22 [History Last Taken Unknown] methocarbamol 500 mg tablet 500 mg PO Q8H PRN muscle pain #7 tabs 10/15/22 [Rx Last Taken Unknown] potassium 99 mg tablet 99 mg PO DAILY 10/15/22 [History Last Taken Unknown] Allergy/AdvReac Type Severity Reaction Status Date / Time lisinopril AdvReac Severe cough Verified 10/15/22 10:18 Surgical History Postsurgical percutaneous transluminal coronary angioplasty (PTCA) status (~07/29/13) Presence of stent in coronary artery (~07/29/13) Social History Smoking Status: Never smoker alcohol intake: current details: Rare substance use type: does not use ROS ROS ED ROS Narrative REVIEW OF SYSTEMS: Unless otherwise stated in this report the patient's positive and negative responses for review of systems for constitutional, eyes, ENT, cardiovascular, respiratory, gastrointestinal, neurological, , musculoskeletal, and integument systems and related systems to the presenting problem are either stated in the history of present illness or were not pertinent or were negative for the symptoms and/or complaints related to the presenting medical problem. EXAM Physical Exam Narrative Exam Narrative: Vital signs reviewed and patient is not hypoxic. General: The patient appears well and in no apparent distress. Patient is resting comfortably on cart. Not toxic, lethargic, or listless. Skin: Warm, dry, no pallor noted. There is no rash noted. Head: Normocephalic, atraumatic Eye: Normal conjunctiva, no drainage, EOMI. PERRL. Ears, Nose, Mouth, and Throat: oral mucosa is moist. Nares patent. Mouth without vesicles. Cardiovascular: Regular Rate and Rhythm, no murmurs, gallops, or rubs Respiratory: Patient is in no distress, no accessory muscle use, lungs are clear to auscultation, no wheezing, rales or rhonchi Back: Patient has moderate tenderness palpation to the left paralumbar soft tissue, no rash, no midline lumbar sacral tenderness palpation, no CVA tenderness bilaterally to percussion. NO CTLS midline or paraspinal tenderness to palpation. Patient has a TENS unit in place. GI: Soft, obese, mild left flank pain tenderness to palpation, no peritoneal signs, no rigidity or tympany, bowel sounds x4, otherwise no tenderness to palpation, no masses appreciated. No pulsatile mass, no rebound, guarding, or rigidity noted. Musculoskeletal: The patient has full range of motion of all extremities and joints with no difficulty. Patient has no motor, no sensory deficits. Neurological: A&O x4, normal speech, no focal neurological deficits. Psychiatric: Cooperative Const Vital Signs: 10/15/22 10:18 10/15/22 11:48 10/15/22 15:23 Temperature 97.8 F Temperature Source Temporal Pulse Rate 80 74 Respiratory Rate 14 16 Blood Pressure 189/109 H 145/68 H 180/87 H Blood Pressure Mean 135 93 Pulse Ox 98 95 Oxygen Delivery Method Room Air Room Air [facility] Lab Data Attestation: I reviewed the patient's lab results. Labs: Laboratory Results - last 24 hr 10/15/22 10:25 WBC 9.7 RBC 4.38 L Hgb 13.9 Hct 40.8 MCV 93.2 MCH 31.7 MCHC 34.1 RDW Std Deviation 43.7 RDW Coeff of Joshua 12.7 Plt Count 254 MPV 11.2 Immature Gran % (Auto) 0.500 Neut % (Auto) 73.5 H Lymph % (Auto) 14.1 L [place] % (Auto) 8.5 Eos % (Auto) 3.0 Baso % (Auto) 0.4 Absolute Neuts (auto) 7.1 Absolute Lymphs (auto) 1.36 Nucleated RBC % 0 Sodium 143 Potassium 3.1 L Chloride 108 H Carbon Dioxide 30.0 Anion Gap 5 BUN 22 H Creatinine 1.18 Estim Creat Clear Calc 43.47 Est GFR (MDRD) Af Amer 75 Est GFR (MDRD) Non-Af 62 BUN/Creatinine Ratio 18.6 Glucose 124 H Calcium 9.0 Total Bilirubin 1.10 H AST 21 ALT 21 Alkaline Phosphatase 90 Total Protein 6.6 Albumin 3.5 Globulin 3.1 Albumin/Globulin Ratio 1.1 Lipase 29 Radiography Chest X-Ray - ED: Read by ED Physician (Chest x-ray shows no acute cardiopulmonary disease, no infiltrate, no effusion.. ) Diagnostic Testing: Clinical Impression(s) from Imaging Studies Acute Abdomen Series 10/15/22 11:00 IMPRESSION: No acute findings in the chest, abdomen or pelvis. Electronically Signed: Jhon Bello MD at 12:10 EDT , Abdomen/Pelvis CT 10/15/22 13:32 IMPRESSION: 1. Diverticulosis along the descending colon and proximal sigmoid colon without diverticulitis. 2. 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 3. Mild diffuse hepatic steatosis. 4. Small midline umbilical hernia containing omental fat. 5. Mild anterolisthesis of L5 on S1 secondary to bilateral L5 pars defects and moderately pronounced stenosis of the right L5-S1 intervertebral neural foramen. 6. Moderate calcified plaques in the left coronary artery and its branches. 7. No significant interval change when compared to 08/31/2021. Electronically Signed: Jhon Bello MD at 14:57 EDT , CT report was discussed with patient and at bedside, and a copy of the report was given to the patient at discharge. EKG Initial EKG: Attestation: I personally reviewed and interpreted this EKG as follows: Comments: EKG interpretation. Normal sinus rhythm at 66 beats a minute. Normal axis deviation. No acute ST elevation, no acute ectopy. QTc of 469. Treatment and Re-Evaluation :: Patient's initial x-ray showed no signs of constipation, no air-fluid levels, no acute findings on abdominal exam and chest x-ray. Patient then had a CT of the abdomen pelvis secondary to his amount of pain to the left lower side. Patient does have a TENS unit to the area as well. Patient CT of the abdomen pelvis shows no acute findings, patient has diverticulosis which she is aware of. Patient was sent home with a few pain pills and muscle lectures, patient has a TENS unit. This could be muscle skeletal in nature, if patient's pain continues he will follow-up with PCP for additional outpatient testing. Patient feels comfortable going home, as does his . Patient and are here extended amount of time secondary to a few critical patients in the ER at that time. They were very understanding and thankful. Patient understands not to take his Robaxin with his Flexeril at the same time Discharge Plan Triage Chief Complaint: Abd Pain ED Provider: Marcos Ferraro Dx/Rx/DC Orders Clinical Impression: Left lumbar pain Instructions: Self-Care for Low Back Pain, ED Back Care Tips, ED Abdominal Pain Unkn Cause Male... Prescriptions: New methocarbamol 500 mg tablet 500 mg PO Q8H PRN (Reason: muscle pain) Qty: 7 0RF hydrocodone-acetaminophen 5-325 mg tablet 1 tab PO Q6H PRN PRN (Reason: Pain) 3 Days Qty: 8 0RF No Action aspirin 81 mg tablet,delayed release (DR/EC) 81 mg PO QDAY calcium carbonate-vitamin D3 [Calcium 600 with Vitamin D3] 600 mg(1,500mg) - 200 unit tablet 1 tab PO QDAY omega-3 fatty acids [Fish Oil Concentrate] 1,000 mg capsule 1,200 mg PO QDAY nitroglycerin 0.4 mg tablet, sublingual 0.4 mg SUBLINGUAL Q5-15M PRN (Reason: chest pain) Qty: 25 3RF xrpurrburns-bmqphljpc-eje C-Mn 1 EACH tablet 1 ea PO DAILY cyclobenzaprine 5 mg Tablet 5 mg PO TID PRN (Reason: muscle relaxant) zoledronic ondq-wvhdmcps-lxyzo [Zometa] 4 mg/100 mL Piggyback See Rx Instructions .ROUTE .COMPLEX Rx Instructions: 1 ea intravenously monthly apalutamide 60 mg Tablet 180 mg PO DAILY atorvastatin 20 mg tablet 20 mg PO QHS Rx Instructions: 20 mg orally daily; may reduce to every other day when myalgias flair.; meloxicam 7.5 mg tablet 7.5 mg PO DAILY magnesium 250 mg tablet 250 mg PO DAILY potassium 99 mg tablet 99 mg PO DAILY losartan 25 mg tablet 25 mg PO DAILY Qty: 90 4RF ergocalciferol (vitamin D2) 1,250 mcg (50,000 unit) capsule 1,250 mcg PO QWEEK metoprolol tartrate 25 mg tablet 25 mg PO BID Qty: 180 3RF hydrochlorothiazide 12.5 mg tablet See Rx Instructions .ROUTE .COMPLEX Qty: 90 3RF Dose Instruction: TAKE 1 TABLET DAILY Rx Instructions: TAKE 1 TABLET DAILY Primary Care Provider: Will Subramanian Referrals: Will Subramanian MD [Primary Care Provider] - Activity Restrictions/Additional Instructions: ICE 20 min on, 20 min off. Continue stretching, follow up with physical therapy if needed. Disposition Disposition: Home, Self Care Discharge Date/Time: 10/15/22 15:26
--- NOTE | 2022-10-15 13:32 | CT_ITS ---
EXAM: CT ABDOMEN AND PELVIS WITH INTRAVENOUS CONTRAST CLINICAL INDICATION: Left flank pain. History of hypertension. TECHNIQUE: Helically acquired images were obtained of the abdomen and pelvis with intravenous contrast. This CT exam was performed using one or more of the following dose reduction techniques: automated exposure control, adjustment of the mA and/or kV according to patient size, and/or use of iterative reconstruction technique. CONTRAST: 100 mL of IV Isovue-300. RADIATION DOSE: CTDIvol = 21.94 mGy, DLP = 1109.67 mGy-cm COMPARISON: CT abdomen and pelvis with contrast 08/31/2021. FINDINGS: LOWER THORAX: Minimal subsegmental atelectasis in the posterior lung bases. Calcified plaques in the left main coronary artery, LAD branch and circumflex branch of the left coronary artery. Normal cardiac size. Normal pericardium. ABDOMEN: LIVER: Unremarkable. Homogeneous. No focal mass. GALLBLADDER AND BILE DUCTS: Unremarkable. No calcified gallstones. No gallbladder distention or wall edema. No intra- or extrahepatic biliary ductal dilation. PANCREAS: Unremarkable. No focal cystic or solid mass. SPLEEN: Unremarkable. Normal size without focal cystic or solid mass. ADRENALS: Unremarkable. No nodules. KIDNEYS AND URETERS: Unremarkable. Normal renal size and position. No hydronephrosis. STOMACH AND BOWEL: Few diverticula in the descending colon and sigmoid colon without diverticulitis. No stomach or bowel distention. PELVIS: APPENDIX: Normal. BLADDER: Unremarkable. 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 ABDOMEN and PELVIS: INTRAPERITONEAL SPACE: Unremarkable. No ascites or other fluid collection. No free air. BONES/JOINTS: Diffuse degenerative disc space height narrowing throughout the lumbar spine with degenerative vacuum phenomenon. Mild anterolisthesis of L5 on S1 secondary to bilateral L5 pars defects. Moderately pronounced stenosis of the right L5-S1 intervertebral neural foramen and moderate stenosis of the left L5-S1 intervertebral neural foramen.. No suspicious lytic or blastic abnormality. SOFT TISSUES: Mild diffuse fatty infiltration. Surgical clips in pelvic sidewall. Midline umbilical hernia containing only normal omental fat. 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 Calcified plaques in the abdominal aorta without aneurysmal dilatation or demonstrated narrowing. Normal SMA. No demonstrated narrowing of the bilateral renal arteries. LYMPH NODES: Unremarkable. No enlarged lymph nodes. CT/Abdomen/Pelvis W IV Cont ONLY IMPRESSION: 1. Diverticulosis along the descending colon and proximal sigmoid colon without diverticulitis. 2. 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 3. Mild diffuse hepatic steatosis. 4. Small midline umbilical hernia containing omental fat. 5. Mild anterolisthesis of L5 on S1 secondary to bilateral L5 pars defects and moderately pronounced stenosis of the right L5-S1 intervertebral neural foramen. 6. Moderate calcified plaques in the left coronary artery and its branches. 7. No significant interval change when compared to 08/31/2021. Electronically Signed: Jhon Bello MD at 14:57 EDT ,
[2022-10-15] MEDS: Potassium Chloride Oral Soln 20 MEQ/15 ML UDC 40 MEQ PO (13:56)
[2022-10-15] MEDS: Ketorolac 15 MG/ML Vial IV (13:56)
[2022-10-15] MEDS: Morphine 2 MG/ML Syringe IV (13:57)
[2022-10-15 15:23] VITALS: BP 180/87
== END 2022-10-15 15:26 | disposition home or self-care (01) ==
PROVIDERS: Emergency Provider Emergency Medicine; PCP Family Medicine; Visit Provider Emergency Medicine
DX: M54.50 Low back pain, unspecified (principal); R10.9 Unspecified abdominal pain; I25.10 Atherosclerotic heart disease of native coronary artery without angina pectoris; I10 Essential (primary) hypertension; E78.5 Hyperlipidemia, unspecified; Z79.82 Long term (current) use of aspirin; Z79.899 Other long term (current) drug therapy
CPT/HCPCS: 74022; 74177; 80053; 83690; 85025; 93005; 96361; 96374; 96375; 99283; J7050; Q9967; A4216

== ENCOUNTER 2022-10-17 11:51 | Emergency (ER) | payer MEDICARE, SELFPAY ==
[2022-10-17 11:52] VITALS: BP 189/121; PULSE 89; RESP 16; TEMP 36.2; O2SAT 95
--- NOTE | 2022-10-17 12:49 | EDS_ITS ---
HPI HPI - GI History of Present Illness Chief Complaint: Abd Pain Narrative Narrative: 87-year-old male presenting with constipation x6 days. Patient had blood work and a CT scan 2 days ago. He was discharged home. He continues to have constipation and pain. He states he is only used milk of magnesia. He has not tried any other stool softeners or laxatives. He has not tried an enema. He states he is not passing flatus. No fevers or chills. No nausea or vomiting. He does have associated left lower back pain. [facility] Medical History Atherosclerotic heart disease of [place] coronary artery without angina pectoris Bilateral carotid bruits Cardiac murmur Diastolic dysfunction Essential hypertension Hyperlipidemia Hypertension Nonrheumatic aortic (valve) stenosis Old myocardial infarction SHAMAR (obstructive sleep apnea) Premature atrial contractions Home Medications aspirin 81 mg tablet,delayed release 81 mg PO QDAY 11/06/17 [History Last Taken Unknown] calcium carbonate 600 mg-vitamin D3 5 mcg (200 unit) tablet (Calcium 600 with Vitamin D3) 1 tab PO QDAY 11/06/17 [History Last Taken Unknown] omega-3 fatty acids 1,000 mg capsule (Fish Oil Concentrate) 1,200 mg PO QDAY 11/06/17 [History Last Taken Unknown] nitroglycerin 0.4 mg sublingual tablet 0.4 mg sublingual Q5-15M PRN chest pain #25 tabs 12/31/18 [Rx Last Taken Unknown] fmbmlxkkgle-ipbsciovy-coi C-Mn 750 mg-600 mg-55 mg-5 mg tablet 1 ea PO DAILY 05/19/19 [History Last Taken Unknown] losartan 25 mg tablet 25 mg PO DAILY #90 tabs 04/02/21 [Rx Last Taken Unknown] ergocalciferol (vitamin D2) 1,250 mcg (50,000 unit) capsule 1,250 mcg PO QWEEK 10/14/21 [History Last Taken Unknown] metoprolol tartrate 25 mg tablet 25 mg PO BID #180 tabs 03/28/22 [Rx Last Taken Unknown] apalutamide 60 mg tablet 180 mg PO DAILY 06/21/22 [History Last Taken Unknown] atorvastatin 20 mg tablet 20 mg PO QHS 06/21/22 [History Last Taken Unknown] cyclobenzaprine 5 mg tablet 5 mg PO TID PRN muscle relaxant 06/21/22 [History Last Taken Unknown] zoledronic acid 4 mg/100 mL in mannitol 5 %-water intravenous piggybck See Rx Instructions .Route .COMPLEX 06/21/22 [History Last Taken Unknown] hydrochlorothiazide 12.5 mg tablet See Rx Instructions .Route .COMPLEX #90 tabs 08/09/22 [Rx Last Taken Unknown] hydrocodone-acetaminophen 5-325mg 5mg-325mg 1 tab PO Q6H PRN PRN Pain 3 days #8 TABLETS 10/15/22 [Rx Last Taken Unknown] magnesium 250 mg tablet 250 mg PO DAILY 10/15/22 [History Last Taken Unknown] meloxicam 7.5 mg tablet 7.5 mg PO DAILY PAIN 10/15/22 [History Last Taken Unknown] methocarbamol 500 mg tablet 500 mg PO Q8H PRN muscle pain #7 tabs 10/15/22 [Rx Last Taken Unknown] potassium 99 mg tablet 99 mg PO DAILY 10/15/22 [History Last Taken Unknown] polyethylene glycol 3350 17 gram/dose oral powder (Miralax) 17 g PO DAILY PRN constipation #119 grams 10/17/22 [Rx Last Taken Unknown] Allergy/AdvReac Type Severity Reaction Status Date / Time lisinopril AdvReac Severe cough Verified 10/17/22 11:51 Surgical History Postsurgical percutaneous transluminal coronary angioplasty (PTCA) status (~07/29/13) Presence of stent in coronary artery (~07/29/13) Social History Smoking Status: Never smoker alcohol intake: current details: Rare substance use type: does not use ROS ROS ED Constitutional Constitutional ED: Denies chills, fever(s) or sweats Eyes Eyes: Denies blurry vision or change in vision ENT ENT ED: Denies ear pain or sore throat Cardiovascular Cardiovascular: Denies chest pain, palpitations or racing heartbeat Respiratory/Chest Respiratory/Chest: Denies cough, dyspnea or sputum Gastrointestinal Gastrointestinal: Reports constipation; Denies diarrhea, nausea or vomiting Genitourinary Genitourinary ED: Denies dysuria, hematuria or urinary frequency Musculoskeletal Musculoskeletal: Reports back pain; Denies arthralgias, myalgias or neck pain Integumentary Denies abscess, Abrasions or rash Neurologic Neurologic: Denies headache(s), paresthesias or weakness Psychiatric Psychiatric: Denies anxiety, depression, suicidal ideation or suicidal thoughts Endocrine Endocrinology: Denies polydipsia or polyuria EXAM Physical Exam Const Vital Signs: 10/17/22 11:52 Temperature 97.1 F L Temperature Source Temporal Pulse Rate 89 Respiratory Rate 16 Blood Pressure 189/121 H Blood Pressure Mean 143 Pulse Ox 95 Oxygen Delivery Method Room Air Positive well nourished General Appearance ED: NAD HEENT Reports moist mucous membranes normocephalic and atraumatic Eyes PERRL and EOMs intact bilaterally Resp normal respiratory effort and clear to auscultation bilaterally Auscultation: Negative for rales, rhonchi or wheezes Cardio regular rate and regular rhythm GI Palpation: Negative for guarding or rigid Back/Spine no CVA tenderness Neuro CN's II-XII intact bilaterally Sensorium / Orientation: alert Psych mental status grossly normal MDM MDM MDM Narrative Medical decision making narrative: Patient presenting with constipation and left back pain. Patient had normal blood work and CT done 2 days ago for similar symptoms. He states has been taking milk of magnesia at home and has not tried any other stool softeners or laxatives. Since the patient is already had lab work and imaging I did offer him a soapsuds enema and he did want this. He was given a soapsuds enema and had a large bowel movement. He states he feels better. I counseled him that the narcotics that he was prescribed might make his constipation worse and recommended he discontinue this since his pain is improved since he had a bowel movement. Return precautions discussed. Impression: 1. Constipation 2. Back pain Discharge Plan Triage Chief Complaint: Abd Pain ED Provider: Ketan Zuñiga Dx/Rx/DC Orders Instructions: ED Constipation (Adult) Prescriptions: New polyethylene glycol 3350 [Miralax] 17 gram/dose powder 17 g PO DAILY PRN (Reason: constipation) Qty: 119 0RF No Action aspirin 81 mg tablet,delayed release (DR/EC) 81 mg PO QDAY calcium carbonate-vitamin D3 [Calcium 600 with Vitamin D3] 600 mg(1,500mg) - 200 unit tablet 1 tab PO QDAY omega-3 fatty acids [Fish Oil Concentrate] 1,000 mg capsule 1,200 mg PO QDAY nitroglycerin 0.4 mg tablet, sublingual 0.4 mg SUBLINGUAL Q5-15M PRN (Reason: chest pain) Qty: 25 3RF qnjkdmaxdgz-eszgvpmzt-ybq C-Mn 1 EACH tablet 1 ea PO DAILY cyclobenzaprine 5 mg Tablet 5 mg PO TID PRN (Reason: muscle relaxant) zoledronic vqdq-zcwlhrgn-iphay [Zometa] 4 mg/100 mL Piggyback See Rx Instructions .ROUTE .COMPLEX Rx Instructions: 1 ea intravenously monthly apalutamide 60 mg Tablet 180 mg PO DAILY atorvastatin 20 mg tablet 20 mg PO QHS Rx Instructions: 20 mg orally daily; may reduce to every other day when myalgias flair.; meloxicam 7.5 mg tablet 7.5 mg PO DAILY magnesium 250 mg tablet 250 mg PO DAILY potassium 99 mg tablet 99 mg PO DAILY methocarbamol 500 mg tablet 500 mg PO Q8H PRN (Reason: muscle pain) Qty: 7 0RF hydrocodone-acetaminophen 5-325 mg tablet 1 tab PO Q6H PRN PRN (Reason: Pain) 3 Days Qty: 8 0RF losartan 25 mg tablet 25 mg PO DAILY Qty: 90 4RF ergocalciferol (vitamin D2) 1,250 mcg (50,000 unit) capsule 1,250 mcg PO QWEEK metoprolol tartrate 25 mg tablet 25 mg PO BID Qty: 180 3RF hydrochlorothiazide 12.5 mg tablet See Rx Instructions .ROUTE .COMPLEX Qty: 90 3RF Dose Instruction: TAKE 1 TABLET DAILY Rx Instructions: TAKE 1 TABLET DAILY Primary Care Provider: Will Subramanian Referrals: Will Subramanian MD [Primary Care Provider] - Disposition Disposition: Home, Self Care Discharge Date/Time: 10/17/22 14:47
== END 2022-10-17 14:47 | disposition home or self-care (01) ==
PROVIDERS: Emergency Provider Student in an Organized Health Care Education/Training Program; PCP Family Medicine; Visit Provider Student in an Organized Health Care Education/Training Program
DX: K59.00 Constipation, unspecified (principal); M54.50 Low back pain, unspecified; I25.10 Atherosclerotic heart disease of native coronary artery without angina pectoris; I10 Essential (primary) hypertension; E78.5 Hyperlipidemia, unspecified; Z79.82 Long term (current) use of aspirin; Z79.899 Other long term (current) drug therapy; Z95.5 Presence of coronary angioplasty implant and graft
CPT/HCPCS: 99284

== ENCOUNTER 2023-03-21 09:30 | Outpatient (RCR) | payer MEDICARE, SELFPAY ==
--- NOTE | 2023-02-17 09:13 | HP.PTEVAL ---
Patient's Visit Information Visit Information Visit Information: ALEX LALA is a 87 year old M referred to Physical Therapy by Dr. Will Subramanian MD with a diagnosis of gait ataxia. Date of Evaluation: 02/17/23 Physical Therapist: Will Shirley, DPT, OCS, CSCS Visit Plan Frequency: 2x /Week Duration: 4 Weeks Plan: 2x/week for 4 weeks, Instruct adn progress HS and gastroc stretches, LE strength, shoulder ROM and vestibular balance ex and work to HEP Neurocom is no longer an option at but biodex testing will be considered depending on progress. Subjective Subjective: Dr. Subramanian sent over for balance problems he is still having. Was here for balance a few years ago but does not remember if it helped. 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 Working on something or turning feels unsteady and steps sideways a few times. One fall and typically on uneven ground. No cane or walker. 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 Balance has felt off for two years, fighting CA for 26 years. On chemo pill and that might be why. Basic ADLs are going well. , driving is OK. Hobbies : Sedentary hobbies reading and cards. Zoroastrianism activities pretty normal. No spinning. No neuropathy, no DM Objective Objective: Walks slightly hunched over but I into and out into PT. Trasnfers I, steps with one rail I. does not get hip extension with ambulation. LE AROM WFL, tightness in hip flexors and quds and HS adn gastroc mod to max. reflexes 0/3 patella adn achilles. Sensation WNL LE to gross light touch. strength 4-/5 ankles and knees adn 3+ hip ext adn abduction. Balance/Special Test Scores Functional Gait Assessment Score: 24 % Disability: 20.0000 CATSIB Score (Max score 120 seconds): 110 Lower Extremity Functional Score: 53 Goals Goal 1:: I appropriate HEP to limit future problems and maximize funciton Goal Time Frame: 4-6 Weeks Goal 2:: Pt feel he can turn without deficts or unsteadiness. Goal Time Frame: 4-6 Weeks Rehabilitation Potential Physical Therapy Diagnosis: weakness adn tightness and possibly vestibular weakness. Rehabilitation Potential: Good Anticipated Interventions Patient/Client Instruction: Educate patient on: Condition and Plan of Care For the Purpose of:: To improve nutrient delivery to tissue, To improve muscle performance and motor function, To increase tolerance to activity/condition/position, To improve ability of physical actions for home/community/work/leisure and To improve gait and locomotor functions Therapeutic Exercise to Include: Strength training, Balance training, Postural training and Flexibilty training For the Purpose of:: To increase ROM, To improve nutrient delivery to tissue, To improve muscle performance and motor function, To increase tolerance to activity/condition/position, To improve ability of physical actions for home/community/work/leisure, To improve gait and locomotor functions and To improve balance Text: Thank you for the opportunity to evaluate your patient. For Medicare and Medicare HMO plans, please review the plan of care and approve it. It will need to be FAXED BACK to us at [phone] for Medicare purposes. For Medicare only, by signing this I certify the plan of care. Please let me know if there are questions or concerns regarding this plan of care. Physician Signature: Date:
--- NOTE | 2023-03-21 10:21 | HP.PTDCSUM ---
Discharge Summary D/C summary: It has been my pleasure to treat ALEX LALA referred by Dr. Will Subramanian MD, with the diagnosis of gait ataxia for a total of 9 visit(s). Discharge Date: 03/21/23 Please see the following information for a summary of their discharge status. Subjective Subjective: Doing the excercises in here and at home. Getting better with balance. No falls. Ready to try on own at home. No scheduled f/u with doctor. Pain Left Shoulder: Pain Intensity (Out of 10): 1 Overall Improvement % Improvement: 80 Objective Objective/Function: Doing well on FGA and will continue via HEP. Goals Goal 1:: I appropriate HEP to limit future problems and maximize funciton Goal Progress: Goal Met Goal 2:: Pt feel he can turn without deficts or unsteadiness. Goal Progress: Goal Met Plan Plan: d/c to HEP D/C Information d/c sentence: If there are questions or concerns regarding this patient's physical therapy, please feel free to call me at [phone]. Thank you for the referral of this patient. Sincerely, Will Shirley, DPT, OCS, CSCS Balance/Gait/Functional tests Balance/Special Test Scores Functional Gait Assessment Score: 27 % Disability: 10.0000 CATSIB Score (Max score 120 seconds): 110 Lower Extremity Functional Score: 45 Improvement % Improvement: 80
== END 2023-03-21 19:00 | disposition home or self-care (01) ==
LOC: PT 09:30
PROVIDERS: PCP Family Medicine; Referring Provider Family Medicine; Visit Provider Family Medicine
DX: R26.0 Ataxic gait (principal)
CPT/HCPCS: 97110; 97162; 97164

== ENCOUNTER → 2023-06-05 | Outpatient (CLI) | payer MEDICARE, SELFPAY ==
--- NOTE | 2023-06-05 14:12 | ECHOCS_ITS ---
Reason For Study: NonRheumatic Procedure This was a 2D Doppler, Color Flow transthoracic echocardiogram. The study was technically difficult. Contrast injection was performed. Exam performed in department. Left Ventricle Normal LV size. Moderate concentric left ventricular hypertrophy. Left ventricular systolic function is normal. The left ventricular ejection fraction is 65 %. Stage 1 diastolic dysfunction. No regional wall motion abnormalities noted. Right Ventricle Normal RV size. Normal systolic function. Atria Normal left atrium. Normal right atrium. Mitral Valve Normal mitral valve. Tricuspid Valve Normal tricuspid valve. Aortic Valve The aortic valve is not well visualized. Peak aortic valve gradient 40 mmHg. Mean aortic valve gradient 25 mmHg. Pulmonic Valve Normal pulmonic valve. Great Vessels Normal aortic root. The pulmonary artery is normal size. Inferior vena cava collapse with respiration. Pericardium/Pleural No pericardial effusion. Medication 22 gauge I.V. with prn adaptor inserted into right arm. Diluted definity 2ml given slow IV push to enhance endocardial definition. MMode/2D Measurements & Calculations LVIDd: 4.0 cm IVSd: 1.6 cm LVOT diam: 2.2 cm LVIDs: 2.9 cm LVPWd: 1.8 cm FS: 26.8 % LVOT area: 3.8 cm2 Ao root diam: 3.8 cm LAV(MOD-bp): 52.1 ml LVAd ap4: 28.2 cm2 ACS: 0.51 cm LAV(MOD-bp) Indexed: 25.5 ml/m2 LVLd ap4: 7.8 cm LAV(MOD-sp2): 70.0 ml EDV(MOD-sp4): 81.3 ml LAV(MOD-sp4): 39.0 ml EDV(sp4-el): 86.6 ml LVAs ap4: 14.5 cm2 LVLs ap4: 6.5 cm ESV(MOD-sp4): 26.1 ml ESV(sp4-el): 27.8 ml EF(MOD-sp4): 67.9 % EF(sp4-el): 67.9 % SV(MOD-sp4): 55.2 ml SV(sp4-el): 58.8 ml LA A4 area: 16.1 cm2 TAPSE: 2.2 cm Time Measurements MV dec time: 0.22 sec Doppler Measurements & Calculations MV E max raheem: 48.9 cm/sec Lat Peak E' Raheem: 4.6 cm/sec Med Peak E' Raheem: 4.9 cm/sec MV A max raheem: 88.0 cm/sec E/E' lat: 10.7 E/E' med: 10.0 MV E/A: 0.56 MV V2 max: 96.8 cm/sec Ao V2 max: 316.3 cm/sec MV max P.7 mmHg MV dec slope: 230.5 cm/sec2 Ao max P.2 mmHg MV V2 mean: 53.2 cm/sec Ao V2 mean: 235.0 cm/sec MV mean P.3 mmHg Ao mean P.8 mmHg MV V2 VTI: 17.3 cm Ao V2 VTI: 57.9 cm AV (velocity ratio): 0.24 MVA(VTI): 3.0 cm2 BRYAN(I,D): 0.91 cm2 BRYAN(V,D): 0.75 cm2 LV V1 max: 62.7 cm/sec SV(LVOT): 52.6 ml LV V1 max P.6 mmHg LV V1 mean P.90 mmHg LV V1 mean: 44.2 cm/sec LV V1 VTI: 13.8 cm ECHO/Echo Complete W/ Contrast Interpretation Summary Normal LV size. Moderate concentric left ventricular hypertrophy. Left ventricular systolic function is normal. The left ventricular ejection fraction is 65 %. Stage 1 diastolic dysfunction. Contrast injection was performed. Ordering Physician: Riri Peralta Referring Physician: Riri Peralta Performed By: Dariel Weiss RCS
== END | disposition home or self-care (01) ==
LOC: CVS 14:12
PROVIDERS: PCP Family Medicine; Referring Provider Nurse Practitioner Gerontology; Visit Provider Nurse Practitioner Gerontology
DX: I35.0 Nonrheumatic aortic (valve) stenosis (principal)
CPT/HCPCS: 93306; Q9957; A4216; C8929

== ENCOUNTER → 2023-06-09 | Outpatient (CLI) | payer MEDICARE, SELFPAY ==
--- NOTE | 2023-06-09 13:06 | CDU_ITS ---
Reason For Study: Bilateral carotid bruits Rt. Velocities/BP Lt. Velocities/BP Prox CCA 52.2/9.7 cm/sec. Prox CCA 62.6/12.6 cm/sec. Mid CCA 81.5/18.2 cm/sec. Mid CCA 59.8/15.4 cm/sec. Dist CCA 99.2/16.8 cm/sec. Dist CCA 63.6/16.3 cm/sec. Prox ICA 69.6/15.7 cm/sec. Prox ICA 141.2/51.1 cm/sec. Mid ICA 69.6/15.7 cm/sec. Mid ICA 80.6/16.8 cm/sec. Dist ICA 72.9/25.6 cm/sec. Dist ICA 64.1/21.2 cm/sec. Rt. ICA/CCA = 0.89. Lt. ICA/CCA = 2.36. Prox ECA 59.7/4.7 cm/sec. Prox ECA 66.9/9.3 cm/sec. Rt. Vert. 22/7.8 cm/sec. Lt. Vert. 31.1/6.9 cm/sec. Right Extracranial There is intimal thickening but no significant atherosclerotic plaque noted in the right common carotid artery. There is homogeneous, irregular atherosclerotic plaque noted in the right internal carotid artery. There is intimal thickening but no significant atherosclerotic plaque noted in the right external carotid artery. Antegrade flow is noted in the right vertebral artery. Left Extracranial There is homogeneous, smooth atherosclerotic plaque noted in the left common carotid artery. There is heterogeneous, irregular atherosclerotic plaque noted in the left internal carotid artery. There is homogeneous, smooth atherosclerotic plaque noted in the left external carotid artery. Antegrade flow is noted in the left vertebral artery. Procedure This is a Carotid Duplex examination using B-mode, color flow and specral Doppler. Carotid Duplex 75212. Exam performed in department. VL/Carotid Duplex Ultrasound Interpretation Summary Homogeneous slight irregular plaque at the proximal right internal carotid brodie ry with less than 50% stenosis Less than 50% stenosis right external carotid artery Irregular plaque at the proximal left internal carotid artery with 50 to 69% st enosis Less than 50% stenosis left external carotid artery Patent antegrade vertebral arteries bilaterally No change from the previous examination of January 27, 2021 Ordering Physician: Riri Peralta Referring Physician: Will Subramanian MD Performed By: Jackie Abreu RVT
== END | disposition home or self-care (01) ==
LOC: CVS 13:05
PROVIDERS: PCP Family Medicine; Referring Provider Nurse Practitioner Gerontology; Visit Provider Nurse Practitioner Gerontology
DX: R09.89 Other specified symptoms and signs involving the circulatory and respiratory systems (principal)
CPT/HCPCS: 93880

== ENCOUNTER 2024-01-24 02:39 | Emergency (ER) | payer MEDICARE, SELFPAY ==
[2024-01-24 02:41] VITALS: BP 134/79; PULSE 85; RESP 16; TEMP 36.9; O2SAT 96; BMI 30.3
[2024-01-24 02:45] VITALS: TEMP 36.9; O2SAT 97
[2024-01-24] MEDS: 0.9% Normal Saline (1000mL) 1,000 ML 999 ML IV (03:28)
[2024-01-24 03:42] LABS: Absolute Lymphocyte Count 0.74 X10^3/uL (0.83-4.51); Absolute Neutrophil Count 8.9 X10^3/uL (2.0-7.7); Basophil# 0.06 X10^3/uL; Basophil% 0.6 % (0-1); Eosinophil# 0.17 X10^3/uL; Eosinophils% 1.6 % (0-5); Hematocrit 39.3 % (40-54); Hemoglobin 13.1 g/dL (13.0-16.5); Lymphocyte # 0.74 X10^3/ul (0.83-4.51); Lymphocyte % 6.8 % (19-41); Mean Corp Hgb Conc 33.3 g/dL (32-36); Mean Corpuscular Hgb 31.3 pg (27.0-32.0); Mean Platelet Vol. 10.3 fl (6.2-12.0); Monocyte# 0.76 X10^3/uL; NRBC Flagged by Analyzer 0 % (0-5); Neutrophil % 81.8 % (47-70); Platelet Count 210 K/mm3 (150-450); RBC Distribution Width CV 13.6 % (11.6-14.6); RBC Distribution Width SD 46.9 fl (35.1-43.9); Red Blood Count 4.18 M/mm3 (4.6-6.2); White Blood Count 10.9 K/mm3 (4.4-11.0)
[2024-01-24 04:09] LABS: Anion Gap 6 (5-15); BUN 28 mg/dL (7-18); BUN/Creat Ratio 24.1 RATIO (10-20); CPK Total, Creatine Kinase 36 U/L (39-308); Calcium,Total 8.8 mg/dL (8.5-10.1); Chloride 109 mmol/L (98-107); Creatinine, Serum 1.16 mg/dL (0.70-1.30); EST Glomerular Filtration Rate 63 mL/min (>60); Est Glom Filt Rate - Afr Amer 77 mL/min (>60); Estimated Creatinine Clearance 49.01 ml/min; Glucose 120 mg/dL (74-106); Magnesium 2.2 mg/dL (1.6-2.6); Potassium 3.8 mmol/L (3.5-5.1); Sodium Level 143 mmol/L (136-145)
[2024-01-24 04:39] VITALS: BP 162/92; PULSE 82; RESP 16; O2SAT 96
[2024-01-24 06:00] VITALS: BP 162/96; PULSE 70; RESP 16; O2SAT 95
[2024-01-24 06:57] VITALS: BP 175/83; PULSE 79; RESP 18; TEMP 36.8; O2SAT 95
== END 2024-01-24 07:11 | disposition home or self-care (01) ==
PROVIDERS: Emergency Provider Emergency Medicine; PCP Family Medicine; Visit Provider Emergency Medicine
DX: S22.42XA Multiple fractures of ribs, left side, initial encounter for closed fracture (principal); W07.XXXA Fall from chair, initial encounter; Y93.89 Activity, other specified; Y99.8 Other external cause status; Y92.009 Unspecified place in unspecified non-institutional (private) residence as the place of occurrence of the external cause; G47.33 Obstructive sleep apnea (adult) (pediatric); I25.10 Atherosclerotic heart disease of native coronary artery without angina pectoris; I10 Essential (primary) hypertension; I25.2 Old myocardial infarction; E78.5 Hyperlipidemia, unspecified; Z95.5 Presence of coronary angioplasty implant and graft; Z79.82 Long term (current) use of aspirin; Z79.899 Other long term (current) drug therapy
CPT/HCPCS: 70450; 71101; 72072; 72100; 72125; 72170; 80048; 82550; 83735; 84443; 85025; 96360; 99283; J7030; A4216

== ENCOUNTER 2024-05-23 10:30 | Outpatient (RCR) | payer MEDICARE, SELFPAY ==
--- NOTE | 2024-04-15 13:14 | HP.PTEVAL_ITS ---
Patient's Visit Information Visit Information Visit Information: ALEX LALA is a 88 year old M referred to Physical Therapy by Dr. Will Subramanian MD with a diagnosis of Balance evaluation due to unsteady gait and falls. Date of Evaluation: 04/15/24 Physical Therapist: Will Shirley, DPT, OCS, CSCS Visit Plan Frequency: 2x /Week Duration: 4-6 Weeks Plan: Biodex balance test in place of ordered neurocom, then 2x/week for 4 weeks for education and progression of ankle coordination and proprioception ex, blance weight shifting ex and general strength to HEP.Gait training with head turns IE: educated on need to use at least cane and consider wh walker when tired or uneven surfaces. Also flor for skilled nursing ex to mitigate risk. Also on course of PT. reviewed balance safety HO given to patient and results of today's testing. Likely will need weight shifting, head movement, general strength ex to HEP. Subjective Subjective: I get shots in my knees. Balance is still an issue, it gets better with therapy but I did not continue exercises. Fell 3 weeks ago turning too quickly standing and was not using cane. He uses cane mostly out and about. Fallen 8-10x in last year. Backpedals and falls. No spinning. No neuropathy that teofilo knows of. Lives with . On one story. No steps to get in but one little one which is not an issue. Cannot get up off floor and has to call someone. Spends day doing nothing , TV computer and reading. No regular exercises. Sleep is OK. Pain is not an issue but wakes up at [facility] with pain some times. Has electric massage chair which helps him sleep. narcotic helps him sleep now. Objective Objective: Walks with cane in R UE but tends to hold it more than use it until cued. Trasnfers with UE I chair and bed.Steps are challenging with rail and cane lacking FW weight shift and weakness and pain in knees. Knees lack full extension at end range. neuropathy appears in his gait pattern ladcking wt shift and strenth and coordination in ankles with reciprocal toe adn heel tap and heel to benavides test. Max tightness in HS at -+50 90/90 test and quads. reflexes 2/3 patella adn 1/3 achilles B Sensation to gross light touch in LE WNL B. strength hips 3 abd and ext adn 3+ flexion, knee flex/ext 4- and pain with extension B, ankles 4+ in ROM. Poor Fw weight shift noticed on step over, steps and exitting chair especially once fatigued. Balance/Special Test Scores Functional Gait Assessment Score: 20 % Disability: 33.3400 CATSIB Score (Max score 120 seconds): 102 Lower Extremity Functional Score: 39 TUG Test Time Seconds: 13 30 Second Chair Rise Test Seconds: 8 Goals Goal 1:: Compliant with AD(cane) adn HEP for balance and strength to minimize future problems. Goal Time Frame: 4-6 Weeks Goal 2:: 11 on 30 SSTS and 22 on FGA to minimize fallr isk Goal Time Frame: 4-6 Weeks Goal 3:: Pt feel 50% better in balance and mobility at home Goal Time Frame: 4-6 Weeks Rehabilitation Potential Physical Therapy Diagnosis: tightness, weakness and coordination/motor control deficits leading to falls. Rehabilitation Potential: Fair Anticipated Interventions Text: Thank you for the opportunity to evaluate your patient. For Medicare and Medicare HMO plans, please review the plan of care and approve it. It will need to be FAXED BACK to us at [phone] for Medicare purposes. For Medicare only, by signing this I certify the plan of care. Please let me know if there are questions or concerns regarding this plan of care. Physician Signature: Date:
--- NOTE | 2024-04-22 10:40 | HP.PTCOM ---
PT Communication Note 04/22/[address] Will Subramanian MD , Thank you for the referral of Ketan to [facility] for balance testing. I have enclosed a copy of his results for your review. In summation: Th Modified CTSIB showed >2 SD deficits in eyes open on firm and eyes open foam surface. He did OK on foam for his age. Limits of stability test showed posterior weight shift is poor and excess time taken to find neutral COG always coming back anterior to the right spot. With these results in mind, I plan to see him 2x/week for 4 weeks to teach exercises to help rectify these deficits as well as overall general strength and progress him to a home program as safety allows. Please d not hesitate to contact me if there are questions. Sincerely, Will Shirley DPT, OCS, CSCS Contact Information
--- NOTE | 2024-05-23 11:29 | HP.PTREVAL ---
Re-Evaluation Intro: Dr. iWll Subramanian MD, It has been my pleasure to treat ALEX LALA over the last 9 visits for Balance evaluation due to unsteady gait and falls. Please see the progress note below for an update on the physical therapy plan of care! Subjective Subjective: Alex not sure he is improving. Doing some home exercises but not like I should not motivated. Fell one time the other day coming out a door and turning and just kept going. Was not using cane. uses walker at home sometimes, can't describe why he uses it at certain times but more frequently since he fell. Was doing better prior to fall. Now he worries again.Balance is better overall but worse confidence since the fall. Struggled to get up off the floor. Had to call son. Panchito have ablation L knee for the pain. No f/u with Dr. Subramanian. Objective Objective/Function: Passive posture in sitting leaning against back of chair even to do exercises. Using wh walker today, uses it some on at home. Ambulation with wh walker is slow with wide HENNY but mod I. Without aD is short steps and hesitant with poor motor control LE as he walks further. pt admittedly noncompliant with HEP and AD and with poor motivation. Thinks he can change that over next month willing to use wh walker and HEP daily since his fall has scared him and inability to gt off the floor. Plan Plan Plan: Pt has worsened since IE and admits to being lazy but feeling like he can change that. [id number]/week for 4 weeks Please do the following... 1. Ensure verbally patient doing HEP daily at home and add to it as compliance improves. 2. Get more aggressive with strength in clinic including machines if safety will allow for intermediate frame tender LE strength in gym and postural strength AND floor trasnfr and more steps if knee tolerates it. Lots of gait walking for confidence and safeety adn progress to home walking (with wh walker). New goals(old appropriate) adn questionable prognosis) Balance/Gait/Functional tests Balance/Special Test Scores Functional Gait Assessment Score: 12 % Disability: 60.0000 CATSIB Score (Max score 120 seconds): 102 Lower Extremity Functional Score: 20 TUG Test Time Seconds: 13 Tug Test: <20 sec.=mostly independent 30 Second Chair Rise Test Seconds: 8 Goals Goals Goal 1:: Compliant with AD(cane) adn HEP for balance and strength to minimize future problems. Goal Time Frame: 4-6 Weeks Goal Progress: not progress, approp Goal 2:: 11 on 30 SSTS and 22 on FGA to minimize fallr isk Goal Time Frame: 4-6 Weeks Goal Progress: Not Progressing, approp Goal 3:: Pt feel 50% better in balance and mobility at home Goal Time Frame: 4-6 Weeks Goal Progress: Not Progressing, approp Goal 4:: Get up off floor with UE support adn min A. Goal Time Frame: 2-4 Weeks Anticipated Interventions Re-Evaluation Ending Re-evaluation ending: Please do not hesitate to contact me at [phone] by phone or if you have questions or concerns regarding this new plan of care! Sincerely, Will Shirley, DPT, OCS, CSCS
--- NOTE | 2024-07-25 15:56 | HP.PT.NRP ---
Patient Information Patient Information: ALEX LALA was seen in my office for initial evaluation on 04/15/24. The following Plan of Care was established for this patient: POC Established Initial Frequency: 2x /Week Initial Duration: 4-6 Weeks Last Seen Last Seen: This patient was last seen in our office 05/23/24. Pertinent comments regarding their Physical therapy will appear below: Pt seen 9 visits and was 20% better. He was not overly compliant with exercises but thought he could do better and new POC established but pt did not schedule or attend. At this point, it has been over two months and I will discontinue from my care. At this point I will be discontinuing this patient from physical therapy. I would be happy to see this patient again in the future if found appropriate by the physician. Thank you! Will Shirley, DPT, OCS, CSCS Balance/Gait/Functional tests Balance/Special Test Scores Functional Gait Assessment Score: 12 % Disability: 60.0000 CATSIB Score (Max score 120 seconds): 102 Lower Extremity Functional Score: 20 TUG Test Time Seconds: 13 Tug Test: <20 sec.=mostly independent 30 Second Chair Rise Test Seconds: 8
== END 2024-05-23 19:00 | disposition home or self-care (01) ==
LOC: PT 10:30
PROVIDERS: PCP Family Medicine; Visit Provider Family Medicine
DX: R26.81 Unsteadiness on feet (principal); R29.6 Repeated falls
CPT/HCPCS: 97110; 97112; 97116; 97162; 97530; 97750

== ENCOUNTER → 2024-06-27 | Outpatient (CLI) | payer MEDICARE, SELFPAY ==
[2024-06-27 12:19] LABS: AST(SGOT) 22 U/L (<=37); Alanine Aminotransfer ALT/SGPT 12 U/L (<=46); Albumin, Serum 3.8 g/dL (3.4-4.8); Alkaline Phosphatase 78 U/L (40-129); Bilirubin, Direct 0.18 mg/dL (0.00-0.30); Cholesterol 137 mg/dL (<=200); Globulin 2.4 g/dL (2.2-4.2); High Density Lipoprotein 52 mg/dL; Low Density Lipoprotein Calc. 63 mg/dL; Protein, Total 6.2 g/dL (5.9-8.4); Total Bilirubin 0.39 mg/dL (0.00-1.30); Triglycerides 114 mg/dL; Very Low Density Lipoprotein 23 mg/dL (5-40); cholesterol:hdl ratio screen 2.65
== END | disposition home or self-care (01) ==
LOC: LAB 11:19
PROVIDERS: PCP Family Medicine; Referring Provider Physician Assistant Medical; Visit Provider Physician Assistant Medical
DX: R01.1 Cardiac murmur, unspecified (principal); I35.0 Nonrheumatic aortic (valve) stenosis; E78.5 Hyperlipidemia, unspecified
CPT/HCPCS: 36415; 80061; 80076

== ENCOUNTER → 2024-09-12 | Outpatient (CLI) | payer MEDICARE, SELFPAY ==
--- OUTSIDE RECORDS SUMMARY | 2024-09-12 06:59 | XMS RPT_ITS | CCD ---
Author Organization [facility] Care Team Providers Care Cutter And Edge Trimmer Name Role Phone Dr. Otto Subramanian Primary Care Provider Dr. Otto Subramanian Referring Provider Edwar YIP, MANUFACTURING MAINTENANCE TECHNICIANDemarcusC Randy Coughlin Attending Provider Cem Arzate Primary Care Provider Unavaildeysi Florentino RN, Irene Unavailable [place] Primary Care Provider Unavaildeysi Florentino RN, Irene Unavailable [place] Primary Care Provider Unavaildeysi Florentino RN, Irene Unavailable [place] Primary Care Provider Unavailabl mai Arzate Cem Hernandez Primary Care Provider Unavaildeysi Florentino RN, Irene Unavailable Chadd RN, Irene Unavailable Chito MOLINA, Everett Unavailable Otto Subramanian MD Primary Care Provider Otto Subramanian MD Primary Care Provider Dr. Otto Subramanian Primary Care Provider [phone] Dr. Otto Subramanian Referring Provider Fabian YIP, MANUFACTURING MAINTENANCE TECHNICIAN-C Riri Attending Provider Dr. Osman Bui Attending Provider Dr. Marquise Hart Attending Provider Fabian YIP, MANUFACTURING MAINTENANCE TECHNICIAN-C Riri Referring Provider Otto Subramanian MD Primary Care Provider [phone] Dr. Otto Subramanian MD Primary Care Provider Dr. Otto Subramanian MD Attending Provider Dr. Otto Subramanian MD Referring Provider Damaris Eckert Attending Provider [phone] Damaris Eckert Referring Provider PRANAV TATE Attending Unavailable SUBRAMANIAN, OTTO A Primary Care Unavailable CORNEJO, BREE Referring Unavailable SUBRAMANIAN, OTTO A Primary Care Unavailable KAUSHAL STOCKTON JR Referring Unavailable SUBRAMANIAN, OTTO A Primary Care Unavailable CORNEJO, BREE Referring Unavailable SUBRAMANIAN, OTTO A Primary Care Unavailable SUBRAMANIAN, OTTO A Primary Care Unavailable CORNEJO, BREE Referring Unavailable CRISSY MAI Attending Unavailable CORNEJO, BREE Referring Unavailable SUBRAMANIAN, OTTO A Primary Care Unavailable CORNEJO, BREE Referring Unavailable SUBRAMANIAN, OTTO A Primary Care Unavailable CRISSY MAI Attending Unavailable SUBRAMANIAN, OTTO A Primary Care Unavailable CORNEJO, BREE Referring Unavailable CORNEJO, BREE Referring Unavailable SUBRAMANIAN, OTTO A Primary Care Unavailable CORNEJO, BREE Referring Unavailable SUBRAMANIAN, OTTO A Primary Care Unavailable EVERETT ALDRICH Attending Unavailable CORNEJO, BREE Referring Unavailable SUBRAMANIAN, OTTO A Primary Care Unavailable SUBRAMANIAN, OTTO A Primary Care Unavailable CORNEJO, BREE Referring Unavailable SUBRAMANIAN, OTTO A Primary Care Unavailable LEISA ROBB Attending Unavailable SUBRAMANIAN, OTTO A Primary Care Unavailable KAUSHAL STOCKTON JR Referring Unavailable EVERETT ALDRICH Attending Unavailable CORNEJO, BREE Referring Unavailable SUBRAMANIAN, OTTO A Primary Care Unavailable CORNEJO, BREE Referring Unavailable SUBRAMANIAN, OTTO A Primary Care Unavailable EVERETT ALDRICH Referring Unavailable KAUSHAL STOCKTON JR Attending Unavailable SUBRAMANIAN, OTTO A Primary Care Unavailable CORNEJO, BREE Referring Unavailable SUBRAMANIAN, OTTO A Primary Care Unavailable EVERETT ALDRICH Attending Unavailable CORNEJO, BREE Referring Unavailable SUBRAMANIAN, OTTO A Primary Care Unavailable CORNEJO, BREE Referring Unavailable SUBRAMANIAN, OTTO A Primary Care Unavailable Subramanian, Otto Attending Unavailable Subramanian, Otto Primary Care Unavailable Subramanian, Otto Primary Care Unavailable Sabas Nayak Attending Unavailable Damaris Eckert Attending Unavail able Subramanian, Otto Primary Care Unavailable Damaris Eckert Referring Unavail able Damaris Eckert Attending Unavail able Subramanian, Otto Primary Care Unavailable Damaris Eckert Referring Unavail able Subramanian, Otto Referring Unavailable Otto Subramanian Primary Care Unavailable Damaris Eckert Attending Unavail Osman Smith Attending Unavailable Otto Subramanian Referring Unavailable Otto Subramanian Primary Care Unavailable Damaris Eckert Attending Unavail Otto Timmons Primary Care Unavailable Damaris Eckert Referring Unavail lynn Allergies Allergy Classification Reported Allergen(s) Allergy Type Date of Onset Reaction(s) Facility Angiotensin Converting Enzyme (VICKY) Inhibitors (2 sources) Lisinopril Drug Allergy 07-11-2022 [facility] (20 sources) Lisinopril; Translations: [LISINOPRIL] Drug Allergy 08-16-2021 [facility] (1 source) Lisinopril Drug Allergy 01-24-2024 [facility] Repository Medications Current Medications Medication Drug Class(es) Dates Sig (Normalized) Sig (Original) acetaminophen 325 mg / oxyCODONE hydrochloride 5 mg oral tablet (3 sources) Opioid Agonist Start: 01-24-2024 take 1 tablet by mouth every six hours as needed for pain Oxycodone-Acetamino phen (Percocet) 5-325 mg tablet Active 1 {tbl} PO EVERY 6 HOURS as needed for pain 06 08January 24, 2024 aspirin 81 mg delayed release oral tablet (20 sources) Platelet Aggregation Inhibitor, Nonsteroidal Anti-inflammatory Drug Start: 11-06-2017 take 1 tablet by mouth once daily Aspirin 81 mg tablet,delayed release (DR/EC) Active 81 mg PO daily November 06, 2017 12:00am Comment on above: Take 81 mg by mouth once daily. calcium citrate 950 mg / cholecalciferol 250 unt oral tablet (2 sources) Vitamin D Start: 01-24-2024 Calcium Citrate-Vitamin D3 200 mg-6.25 mcg (250 unit) tablet Active 1 {tbl} PO DAILY January 24, 2024 1:00am calcium citrate/vitamin D3 (CALCIUM CITRATE + D ORAL) (1 source) take 1 tablet by mouth twice daily calcium citrate/vitamin D3 (CALCIUM CITRATE + D ORAL) Take 1 tablet by mouth two times a day. Active Shields 4-Ggj-Avm-Fish Oil (2 sources) Start: 01-24-2024 Shields 5-Gxm-Sbb-Fish Oil (Fish Oil) 300-1,000 mg capsule Active 1 NMA PO DAILY January 24, 2024 1:00am ergocalciferol 1.25 mg oral capsule (20 sources) Provitamin D2 Compound Start: 10-09-2021 End: 03-05-2024 take 1 capsule by mouth every week ergocalciferol 50,000 unit capsule (VITAMIN D2, DRISDOL) Indications: Osteopenia determined by x-ray , Vitamin D deficiency Take 1 capsule by mouth one time a week. 12 capsule 3 03/05/2024 Active Comment on above: Take 1 capsule by mo [facility] one time a week. ergocalciferol, vitamin D2, (VITAMIN D2 ORAL) (1 source) ergocalciferol, vitamin D2, (VITAMIN D2 ORAL) Take by mouth. Active Fish Oil-Shields-3 Fatty Acids 500-300 mg ORAL Cap (20 sources) Start: 01-22-2007 take 1 capsule by mouth once daily Fish Oil-Shields-3 Fatty Acids 500-300 mg ORAL Cap Take 1 capsule by mouth once daily. 0 01/22/2007 Active Start: 01-22-2007 Fish Oil-Shields -3 Fatty Acids 500-300 mg ORAL Cap Take by mouth. 0 01/22/2007 Active Start: 01-22-2007 take 1 tablet by antony once daily Fish Oil-Shields-3 Fatty Acids 500-300 mg ORAL Cap Take one(1) tablet daily. 0 01/22/2007 Active Comment on above: Take one(1) tablet d aily. GLUCOSAM/MSM/CHONDR/ T C/HYAL (GLUCOSAMINE-CHONDROIT IN-MSM ORAL) (20 sources) take 1 tablet by mouth twice daily GLUCOSAM/MSM/CHONDR/ VIT C/HYAL (GLUCOSAMINE-CHONDRO ITIN-MSM ORAL) Take 1 tablet by mouth two times a day. Active take 1 tablet by antony th twice daily GLUCOSAM/MSM/CHONDR/VIT C/HYAL (GNFEVRODBUA-RAXATGBSSCR-ATN ORAL) Take 1 tablet by mouth two times a day. 0 Active take 1 tablet by antony th once daily GLUCOSAM/MSM/CHONDR/VIT C/HYAL (NWURESWFUJI-BSIJILGNXBT-RAZ ORAL) Take 1 tablet by mouth once daily. 0 Active GLUCOSAM/MSM/CHO NDR/VIT C/HYAL (TIMEORONZGR-DUPUDFBEZEG-HCS ORAL) Take by mouth once daily. 0 Active Comment on above: Take by mouth once d aily. Take 1 tablet by antony th once daily. Uzrlfdqllvt-Oogrhglpw-Z it C-Mn (12 sources) Start: 05-19-2019 Glucosamine-Chondroit- Vit C-Mn Active 1 EACH PO DAILY May 19, 2019 6:16am Start: 05-19-2019 Glucosamine-Ch ondroit-Vit C-Mn Active 1 EACH PO DAILY May 19, 2019 12:00am Start: 05-19-2019 Glucosamine-Ch ondroit-Vit C-Mn Active 1 EACH PO DAILY May 19, 2019 1:00am Nkpcvnicgyi-Jxwthwgbu-Jpb C-Mn 1 EACH tablet (2 sources) Start: 05-19-2019 take 1 tablet by mouth once daily Gyhzmaihgdf-Ukzcamccr-Cyp C-Mn 1 EACH tablet Active 1 NMA PO DAILY May 19, 2019 1:00am iv contrast (will be provided with radiology test) (5 sources) Start: 05-24-2024 End: 05-25-2024 inject 1 dose intravenously once iv contrast (will be provided with radiology test) MRI Brain Inject, intravenously, once for 1 dose.No IV access, insert saline lock prior to beginning of sedation, infusion, injection of imaging exam.Discontinue saline lock post exam. If Pt. has a central line or IVAD, may access for administration according to line specific nursing protocol.Once exam is complete flush line and de-access according to line specific nursing protocol in the MR contrast administration guidelines link 1 Each 05/24/2024 05/25/2024 Active Start: 05-24-2024 End: 05-25-2024 iv contrast (will be provide d with radiology test) MRI LSP Inject, intravenously, once for 1 dose. No IV access, insert saline lock prior to the beginning of sedation, infusion, injection of imaging exam. Discontinue saline lock post exam. If Pt. has a central line or IVAD, may access for administration according to line specific nursing protocol. Once exam is complete flush line and de-access according to line specific nursing protocol in the MR contrast administration guidelines link. 1 Each 05/24/2024 05/25/2024 Active Start: 06-21-2022 End: 06-22-2022 inject 1 dose intravenously once iv contrast (will be provided with radiology test) MRI Brain Inject, intravenously, once for 1 dose.No IV access, insert saline lock prior to beginning of sedation, infusion, injection of imaging exam.Discontinue saline lock post exam. If Pt. has a central line or IVAD, may access for administration according to line specific nursing protocol.Once exam is complete flush line and de-access according to line specific nursing protocol in the MR contrast administration guidelines link 1 Each 0 06/21/2022 06/22/2022 Active Comment on above: MRI Brain Inject, in travenously, once for 1 dose.No IV access, insert saline lock prior to beginning of sedation, infusion, injection of imaging exam.Discontinue saline lock post exam. If Pt. has a central line or IVAD, may access for administration according to line specific nursing protocol.Once exam is complete flush line and de-access according to line specific nursing protocol in the MR contrast administration guidelines link Magnesium (7 sources) Start: 3 take 1 tablet by mouth once daily Magnesium 250 mg tablet Active 250 mg PO DAILY October 15, 2022 12:00am Start: 10-15-2022 take 250 mg by mouth once bolivar y Magnesium Active 250 MG PO DAILY October 14, 2022 11:00pm Start: 10-15-2022 take 250 mg by mouth once bolivar y Magnesium Active 250 MG PO DAILY October 15, 2022 12:00am Magnesium Hydroxide (20 sources) take 400 mg by mouth once daily as needed for constipation magnesium hydroxide (MAGNESIA ORAL) Take 400 mg by mouth once daily as needed (constipation). Active take 250 mg by mouth once daily as needed for constipation magnesium hydroxide (MAGNESIA ORAL) Take 250 mg by mouth once daily as needed (constipation). Active take 250 mg by mouth once daily magnesium hydroxide (MAGNESIA ORAL) Take 250 mg by mouth once daily. Active take 250 mg by mouth once daily magnesium hydroxide (MAGNESIA ORAL) Take 250 mg by mouth once daily. 0 Active Comment on above: Take 250 mg by mouth once daily. meloxicam 7.5 mg oral tablet (20 sources) Nonsteroidal Anti-inflammatory Drug Start: 3 take 1 tablet by mouth once daily meloxicam (MOBIC) 7.5 mg tablet Take 7.5 mg by mouth once daily. 07/21/2022 Active Comment on above: once daily. Take 7.5 mg by mouth once daily. metoprolol tartrate 25 mg oral tablet (20 sources) beta-Adrenergic Nidhi Start: 3 End: take 1 tablet by mouth twice daily Metoprolol Tartrate 25 mg tablet Active 25 mg PO TWICE A DAY 180 July 08, 2024 12:27pm Start: 10-14-2021 End: 03-28-2022 take 1 tablet by mouth twice daily Metoprolol Tartrate 50 mg tablet Discontinued 50 mg PO TWICE A DAY October 14, 2021 12:00am March 28, 2022 11:04am Start: 07-25-2019 End: 10-14-2021 take 1 tablet by mouth twice daily Metoprolol Tartrate 25 mg tablet Discontinued 25 mg PO TWICE A DAY 180 December 29, 2020 9:15am October 14, 2021 8:24am Start: 04-01-2019 End: 07-25-2019 Metoprolol Tartrate 25 mg ta blet Discontinued 12.5 mg PO TWICE A DAY April 01, 2019 2:43pm July 25, 2019 10:29am Start: 04-01-2019 End: 07-25-2019 take 12.5 mg by mouth twice daily Metoprolol Tartrate Discontinued 12.5 MG PO TWICE A DAY April 01, 2019 2:43pm July 25, 2019 10:29am Start: 02-19-2018 End: 04-01-2019 take 1 tablet by mouth twice daily Metoprolol Tartrate 25 mg tablet Discontinued 25 mg PO TWICE A DAY 180 February 19, 2018 1:00am April 01, 2019 2:43pm Start: 11-06-2017 End: 02-19-2018 take 1 tablet by mouth twice daily Metoprolol Tartrate 50 mg tablet Discontinued 50 mg PO TWICE A DAY November 06, 2017 4:10pm February 19, 2018 1:09pm metoprolol tartr ate, short acting, (LOPRESSOR) 50 mg tablet Take 25 mg by mouth two times a day. Active Comment on above: Take 50 mg by mouth twice daily. Shields-3 Fatty Acids (Fish Oil Concentrate) 1,000 mg capsule (14 sources) Start: 11-06-2017 Shields-3 Fatty Acids (Fish Oil Concentrate) 1,000 mg capsule Active 1200 MG PO daily November 06, 2017 9:50am Start: 11-06-2017 End: 12-26-2023 Shields-3 Fatty Acids (Fish Oi l Concentrate) 1,000 mg capsule Discontinued 1200 mg PO daily November 06, 2017 12:00am December 26, 2023 11:00am Start: 11-06-2017 Shields-3 Fatty Acids (Fish Oil Concentrate) 1,000 mg capsule Active 1200 MG PO daily November 05, 2017 11:00pm Start: 11-06-2017 Shields-3 Fatty Acids (Fish Oil Concentrate) 1,000 mg capsule Active 1200 MG PO daily November 06, 2017 12:00am ondansetron 4 mg disintegrating oral tablet (2 sources) Serotonin-3 Receptor Antagonist Start: 01-24-2024 take 1 tablet by mouth three times daily as needed for nausea and vomiting Ondansetron 4 mg tablet,disintegrating Active 4 mg PO THREE TIMES A DAY as needed for nausea and vomiting January 24, 2024 7:41am OTC PRODUCT (20 sources) take 1500 mg by mouth twice daily OTC PRODUCT Take 1,500 mg by mouth two times a day. Lipozene Active take 1500 mg by mouth twice bolivar y OTC PRODUCT Take 1,500 mg by mouth two times a day. Lipozene 0 Active Comment on above: Take 1,500 mg by antony th two times a day. Lipozene 24 hr oxybutynin chloride 5 mg extended release oral tablet (20 sources) Cholinergic Muscarinic Antagonist Start: 06-08-2023 End: 01-17-2025 take 1 tablet by mouth once daily oxybutynin XL (DITROPAN XL) 5 mg 24 hr tablet Indications: OAB (overactive bladder) Take 1 tablet by mouth once daily. 90 tablet 3 01/23/2024 01/17/2025 Active Start: 02-01-2022 End: 07-28-2022 take 1 tablet by mouth once daily oxybutynin XL (DITROPAN XL) 5 mg 24 hr tablet Take 1 tablet by mouth once daily. 90 tablet 3 02/01/2022 07/28/2022 Discontinued Comment on above: Take 1 tablet by antony th once daily. potassium 99 mg extended release oral tablet (7 sources) Start: 10-15-2022 take 1 tablet by mouth once daily Potassium 99 mg tablet Active 99 mg PO DAILY October 15, 2022 12:00am potassium chloride 10 meq extended release oral tablet (15 sources) Start: 03-05-2024 End: 03-12-2024 potassium chloride (K-TAB) 10 mEq tablet Take 1 tablet by mouth once daily for 7 days. For seven days 7 tablet 03/05/2024 03/12/2024 Active Start: 08-16-2021 End: 10-14-2021 take 1 tablet by mouth twice daily Potassium Chloride 20 mEq tablet extended release Discontinued 20 meq PO TWICE A DAY August 16, 2021 12:00am October 14, 2021 8:26am POTASSIUM-99 ORAL (20 sources) take 1 tablet by antony th once daily POTASSIUM-99 ORAL Take 1 tablet by mouth once daily. Active take 1 tablet by mouth once bolivar y POTASSIUM-99 ORAL Take 1 tablet by mouth once daily. 0 Active POTASSIUM-99 ORA L Take by mouth once daily. 0 Active Comment on above: Take by mouth once d aily. Take 1 tablet by antony th once daily. ubidecarenone 100 mg oral capsule (2 sources) Start: 01-24-2024 Coenzyme Q10 (Coq-10) 100 mg capsule Active 300 mg PO DAILY January 24, 2024 1:00am ubidecarenone (ULTRA COQ10 ORAL) (20 sources) ubidecarenone (U LTRA COQ10 ORAL) Take by mouth once daily. Active ubidecarenone (U LTRA COQ10 ORAL) Take by mouth once daily. 0 Active Comment on above: Take by mouth once d aily. 100 ml zoledronic acid 0.04 mg/ml injection (9 sources) Bisphosphonate Start: 023 take 1 dose intravenously every month Zoledronic Zagt-Ohiureab-Scbyb (Zometa) 4 mg/100 mL Piggyback Active 0 .ROUTE .COMPLEX June 21, 2022 12:00am 1 ea intravenously monthly Completed/Discontinued Medications Medication Drug Class(es) Dates Sig (Normalized) Sig (Original) acetaminophen 325 mg / HYDROcodone bitartrate 5 mg oral tablet (9 sources) Opioid Agonist Start: 10-15-2022 End: 05-23-2023 Hydrocodone-Acetami nophen 5-325 mg tablet Discontinued 1 {tbl} PO EVERY 6 HOURS NEEDED as needed for Pain 8 October 15, 2022 May 23, 2023 11:21am Start: 10-15-2022 End: 05-23-2023 take 1 tablet by mouth every six hours as needed Hydrocodone-Acetaminophen Discontinued 1 TABLET PO EVERY 6 HOURS NEEDED 8 3 October 15, 2022 May 23, 2023 11:21am Start: 08-16-2021 take 1 tablet by antony twice daily Hydrocodone-Acetaminophen Active 1 TABLE T PO TWICE A DAY 10 August 16, 2021 11:24am apalutamide 60 mg oral tablet (20 sources) Start: 06-21-2022 End: 05-23-2023 take 1 tablet by mouth once daily Apalutamide 60 mg Tablet Discontinued 180 mg PO DAILY June 21, 2022 12:00am May 23, 2023 11:06am Start: 06-21-2022 End: 05-23-2023 take 180 mg by mouth once daily Apalutamide Discontinu ed 180 MG PO DAILY June 21, 2022 12:00am May 23, 2023 11:06am Start: 04-26-2022 take 3 tablets by mo [facility] once daily apalutamide (ERLEADA) 60 mg tablet Indications: Malignant neoplasm of prostate (HCC) , Bone metastases Take 3 tablets (180mg) by mouth once daily. 90 tablet 2 05/19/2022 12:50 PM EST 04/26/2022 Active Start: 10-14-2021 take 240 mg by mouth once bolivar y Apalutamide Active 240 MG PO DAILY October 13, 2021 11:00pm Start: 10-08-2021 End: 03-07-2022 take 4 tablets by mouth once daily apalutamide (ERLEADA) 60 mg tab Indications: Malignant neoplasm of prostate (HCC) , Bone metastases (HCC) Take 4 tablets (240 mg) by mouth once daily. 120 tablet 2 03/08/2022 Active Comment on above: Take 4 tablets (240 mg) by mouth once daily. Take 3 tablets by mo uth once daily. Take 3 tablets (180m g) by mouth once daily. atorvastatin 20 mg oral tablet (20 sources) HMG-CoA Reductase Inhibitor Start: 3 End: 4 take 1 tablet by mouth once daily Atorvastatin 20 mg tablet Discontinued 20 mg PO AT BEDTIME 90 2023 10:07am December 26, 2023 11:06am 20 mg orally daily; may reduce to every other day when myalgias flair.; Start: 02-28-2022 End: 03-28-2022 take 1 tablet by mouth every other day Atorvastatin 20 mg tablet Discontinued 20 mg PO .every other day February 28, 2022 3:11pm March 28, 2022 11:06am Start: 07-21-2021 End: 02-28-2022 Atorvastatin 40 mg tablet Discontinued 20 mg PO .every other day July 21, 2021 3:10pm February 28, 2022 3:11pm Start: 07-21-2021 End: 02-28-2022 take 20 mg by mouth every other day Atorvastatin Discontinued 20 MG PO .every other day July 21, 2021 3:10pm February 28, 2022 3:11pm Start: 12-31-2018 End: 07-21-2021 Atorvastatin 40 mg tablet Discontinued 20 mg PO DAILY March 04, 2020 10:16am July 21, 2021 3:10pm Start: 12-31-2018 End: 07-21-2021 take 20 mg by mouth once daily Atorvastatin Discontinu ed 20 MG PO DAILY March 04, 2020 10:16am July 21, 2021 3:10pm Start: 11-06-2017 End: 12-31-2018 take 1 tablet by mouth once daily Atorvastatin 40 mg tablet Discontinued 40 mg PO DAILY December 10, 2018 10:08am December 31, 2018 9:38am Comment on above: Take 40 mg by mouth once daily. Take 20 mg by mouth once daily. Take 20 mg by mouth once daily. Every other day Take 20 mg by mouth every other day. calcium carbonate 1500 mg / cholecalciferol 200 unt oral tablet (20 sources) Vitamin D Start: 11-06-2017 End: 01-24-2024 Calcium Carbonate-Vitamin D3 (Calcium 600 With Vitamin D3) 600 mg(1,500mg) -200 unit tablet Discontinued 1 {tbl} PO daily November 06, 2017 12:00am January 24, 2024 3:51am Start: 11-06-2017 take 1 tablet by antony th once daily Calcium Carbonate-Vitamin D3 (Calcium 600 With Vitamin D3) 600 mg(1,500mg) -200 unit tablet Active 1 TABLET PO daily November 06, 2017 12:00am Start: 07-05-2010 take 1 tablet by antony th once daily Calcium Carbonate-Vitamin D3 600mg (1,000mg) -1,000 unit ORAL Tab Indications: Malignant neoplasm of prostate (HCC) Take 1 tablet by mouth once daily. 30 tablet 6 07/05/2010 Active Comment on above: Take 1 tablet by antony th once daily. cyclobenzaprine hydrochloride 5 mg oral tablet (20 sources) Muscle Relaxant Start: 10-14-19 End: 12-26-19 take 1 tablet by mouth three times daily as needed Cyclobenzaprine 5 mg Tablet Discontinued 5 mg PO THREE TIMES A DAY as needed for muscle relaxant June 21, 2022 12:00am December 26, 2023 11:02am Start: 07-25-2019 End: 07-21-2021 take 1 tablet by mouth at bedtime Cyclobenzaprine 5 mg tablet Discontinued 5 mg PO AT BEDTIME July 25, 2019 12:00am July 21, 2021 2:52pm Start: 07-25-2019 End: 10-14-2021 take 1 tablet by mouth every eight hours as needed for muscle spasms Cyclobenzaprine 5 mg tablet Discontinued 5 mg PO EVERY 8 HOURS NEEDED as needed for muscle spasms July 21, 2021 2:51pm October 14, 2021 8:27am Comment on above: Take by mouth three times daily. Take 5 mg by mouth t hree times daily as needed. furosemide 20 mg oral tablet (14 sources) Loop Diuretic Start: 2013 End: 2017 take 1 tablet by mouth once daily Furosemide 20 MG tablet Discontinued 20 mg PO DAILY July 29, 2013 12:00am November 06, 2017 9:51am gabapentin 300 mg oral capsule (14 sources) Anti-epileptic Agent Start: 2018 End: 2019 take 1 capsule by mouth at bedtime Gabapentin 300 mg capsule Discontinued 300 mg PO AT BEDTIME June 22, 2018 12:00am July 25, 2019 10:29am hydroCHLOROthiazide 12.5 mg oral tablet (20 sources) Thiazide Diuretic Start: 2018 End: 2023 Hydrochlorothiazide 12.5 mg tablet Discontinued 0 .ROUTE .COMPLEX 90 August 09, 2022 9:02am May 23, 2023 11:11am TAKE 1 TABLET DAILY take 1 capsule by mouth once andrew ly hydroCHLOROthiazide (HYDRODIURIL, ESIDRIX) 12.5 mg capsule Take 12.5 mg by mouth once daily. Active Comment on above: Take 12.5 mg by mout h once daily. 0.375 ml leuprolide acetate 60 mg/ml prefilled syringe (20 sources) Gonadotropin Releasing Hormone Receptor Agonist Start: 08-21-19 End: 08-21-19 inject 1 dose by subcutaneous injection once 22.5 mg, SUBCUTANEOUS, ONCE, 1 dose, On Mon08/20/24 at 1330, Hazardous Chemotherapy Drug: Use appropriate PPE. Start: 05-28-2024 End: 05-28-2024 inject 1 dose by subcutaneous injection once 22.5 mg, SUBCUTANEOUS, ONCE, 1 dose, On Mon05/28/24 at 1300, Hazardous Chemotherapy Drug: Use appropriate PPE. Start: 03-05-2024 End: 03-05-2024 inject 1 dose by subcutaneous injection once 22.5 mg, SUBCUTANEOUS, ONCE, 1 dose, On Mon03/05/24 at 1200, Hazardous Chemotherapy Drug: Use appropriate PPE. Start: 09-19-2023 End: 09-19-2023 leuprolide 22.5 mg subcutane ous syringe (ELIGARD) Start: 10-14-2021 Leuprolide (4 Month) Active 30 MG SC every 4 months October 13, 2021 11:00pm Start: 09-24-2021 End: 01-17-2023 leuprolide 30 mg injection (ELIGARD) losartan potassium 25 mg oral tablet (20 sources) Angiotensin 2 Receptor Nidhi Start: 11-06-2017 End: 2023 take 1 tablet by mouth once daily Losartan 25 mg tablet Discontinued 25 mg PO DAILY April 02, 2021 9:21am 2023 10:08am Comment on above: Take 25 mg by mouth once daily. magnesium oxide 400 mg oral tablet (14 sources) Start: 07-25-2019 End: 04-01-2020 take 1 tablet by mouth once daily Magnesium Oxide 400 mg (241.3 mg magnesium) tablet Discontinued 400 mg PO DAILY July 25, 2019 12:00am April 01, 2020 11:20am methocarbamol 500 mg oral tablet (7 sources) Muscle Relaxant Start: 10-15-2022 End: 12-26-2023 take 1 tablet by mouth every eight hours as needed for pain Methocarbamol 500 mg tablet Discontinued 500 mg PO Q8H as needed for muscle pain October 15, 2022 3:13pm December 26, 2023 11:01am nitroglycerin 0.4 mg sublingual tablet (20 sources) Nitrate Vasodilator Start: 11-06-2017 End: 05-23-2023 Nitroglycerin 0.4 mg tablet, sublingual Discontinued 0.4 mg SL every 5 to 15 minutes as needed for chest pain December 31, 2018 9:28am May 23, 2023 5:46pm nitroglycerin avalos blingual 0.3 mg SL tablet Dissolve 0.3 mg under the tongue every 5 minutes as needed. Active Comment on above: Dissolve 0.3 mg unde r the tongue every 5 minutes as needed. polyethylene glycol 3350 18736 mg powder for oral solution (6 sources) Osmotic Laxative Start: 3 End: 4 Polyethylene Glycol 3350 (Miralax) 17 gram/dose powder Discontinued 17 g PO DAILY as needed for constipation 119 October 17, 2022 2:11pm January 24, 2024 3:52am predniSONE 20 mg oral tablet (14 sources) Start: 2 End: 2 take 2 tablets by mouth once daily Prednisone 20 mg tablet Discontinued 40 mg PO DAILY August 16, 2021 12:00am October 14, 2021 8:25am Start: 08-16-2021 End: 10-14-2021 take 40 mg by mouth once daily Prednisone Discontinued 40 MG PO DAILY August 16, 2021 12:00am October 14, 2021 8:25am Saw-Vit E-Sod Wxu-Kot-Kqcd-P yg (12 sources) Start: 05-19-2019 End: 07-25-2019 Saw-Vit E-Sod Zmj-Cof-Mkfl-P yg Discontinued 1 EACH PO DAILY May 19, 2019 6:16am July 25, 2019 10:29am Start: 05-19-2019 End: 07-25-2019 Saw-Vit E-Sod Ano-Rvh-Zlii-P yg Discontinued 1 EACH PO DAILY May 19, 2019 12:00am July 25, 2019 9:29am Start: 05-19-2019 End: 07-25-2019 Saw-Vit E-Sod Vzv-Onc-Cgbi-P yg Discontinued 1 EACH PO DAILY May 19, 2019 1:00am July 25, 2019 10:29am Saw-Vit E-Sod Rxx-Smi-Odvq-Pyg 1 EACH tablet (2 sources) Start: 05-19-2019 End: 07-25-2019 take 1 tablet by mouth once daily Saw-Vit E-Sod Elp-Bsa-Xped-Pyg 1 EACH tablet Discontinued 1 NMA PO DAILY May 19, 2019 1:00am July 25, 2019 10:29am ticagrelor 90 mg oral tablet (20 sources) Start: 06-21-2022 End: 10-15-2022 take 1 tablet by mouth twice daily Ticagrelor (Brilinta) 90 mg Tablet Discontinued 90 mg PO TWICE A DAY June 21, 2022 12:00am October 15, 2022 10:39am Start: 11-06-2017 End: 10-14-2021 take 1 tablet by mouth twice daily Ticagrelor 90 mg tablet Discontinued 90 mg PO TWICE A DAY April 16, 2021 1:20pm October 14, 2021 8:27am Comment on above: Take 90 mg by mouth twice daily. traZODone hydrochloride 50 mg oral tablet (14 sources) Serotonin Reuptake Inhibitor Start: 8 End: 8 take 1 tablet by mouth once daily as needed Trazodone 50 mg tablet Discontinued 50 mg PO daily as needed November 06, 2017 12:00am November 06, 2017 3:36pm zoledronic acid 3.3 mg in NaCl 0.9% 100 mL (ZOMETA) (2 sources) Start: 4 End: 4 3.3 mg, INTRAVENOUS, Administer over 15 Minutes, ONCE, 1 dose, On Mon12/12/23 at 1100, Hazardous Potential Reproductive Risk Drug: Use appropriate PPE. Refrigerate. Start: 09-19-2023 End: 09-19-2023 zoledronic acid 3.3 mg in Na Cl 0.9% 100 mL (ZOMETA) zoledronic acid 3.5 mg in Na Cl 0.9% 100 mL (ZOMETA) (3 sources) Start: 08-20-2024 End: 08-20-2024 3.5 mg, INTRAVENOUS, Adminis ter over 15 Minutes, ONCE, 1 dose, On Mon08/20/24 at 1330, Hazardous Potential Reproductive Risk Drug: Use appropriate PPE. Refrigerate. Exp: (24 HR) Start: 05-28-2024 End: 05-28-2024 3.5 mg, INTRAVENOUS, Adminis ter over 15 Minutes, ONCE, 1 dose, On Mon05/28/24 at 1330, Hazardous Potential Reproductive Risk Drug: Use appropriate PPE. Refrigerate. Exp: (24 HR) Start: 03-05-2024 End: 03-05-2024 3.5 mg, INTRAVENOUS, Adminis ter over 15 Minutes, ONCE, 1 dose, On Mon03/05/24 at 1100, Hazardous Potential Reproductive Risk Drug: Use appropriate PPE. Refrigerate. Problems Active Problems Problem Classification Problem Date Documented Da te Episodic/Chronic Calculus of urinary tract (12 sources) Urinary bladder stone; Translations: [Calculus in bladder] 09-08-2021 Episodic Cancer of prostate (20 sources) Malignant tumor of prostate; Translations: [Malignant neoplasm of prostate] Onset: 07-07-2005 07-07-2005 Chronic Cancer of prostate (11 sources) History of malignant neoplasm of prostate; Translations: [Personal history of malignant neoplasm of prostate] Onset: 05-24-2024 06-22-2022 Episodic Cardiac dysrhythmias (20 sources) Premature atrial contraction; Translations: [Atrial premature depolarization] Chronic Complications of surgical procedures or medical care (14 sources) Postoperative dental wound hemorrhage; Translations: [Postprocedural hemorrhage of a digestive system organ or structure following a digestive system procedure] 05-20-2019 Episodic Coronary atherosclerosis and other heart disease (20 sources) Old myocardial infarction; Translations: [Old myocardial infarction] Onset: 09-04-2024 Chronic Coronary atherosclerosis and other heart disease (20 sources) Stented coronary artery; Translations: [Presence of coronary angioplasty implant and graft] Onset: 07-18-2013 Episodic Comment on above: PCI/IMMANUEL to the Ramus 07/29/13 Disorders of lipid metabolism (20 sources) Hyperlipidemia; Translations: [Hyperlipidemia, unspecified] Onset: 06-27-2024 Chronic Disorders of teeth and jaw (14 sources) History of surgical procedure on mouth; Translations: [Partial loss of teeth, unspecified cause, unspecified class] 05-20-2019 Episodic E Codes: Fall (2 sources) Accidental fall ; Translations: [Unspecified fall, initial encounter] 02-01-2024 Episodic Essential hypertension (20 sources) Essential hypertension; Translations: [Essential (primary) hypertension] Onset: 06-27-2024 Chronic Fluid and electrolyte disorders (14 sources) Hypokalemia; Translations: [Hypokalemia] 08-24-2021 Episodic Heart valve disorders (20 sources) Aortic stenosis, non-rheumatic ; Translations: [Nonrheumatic aortic (valve) stenosis] Onset: 06-27-2024 Chronic Heart valve disorders (15 sources) Heart murmur; Translations: [Cardiac murmur, unspecified] Onset: 07-02-2024 11-06-2017 Episodic Inflammatory conditions of male genital organs (20 sources) Balanoposthitis; 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: 01-22-2007 01-22-2007 Chronic Malaise and fatigue (9 sources) Asthenia; Translations: [Weakness] 06-22-2022 Episodic Nutritional deficiencies (3 sources) Vitamin D deficiency; Translations: [Vitamin D deficiency, unspecified] Chronic Occlusion or stenosis of precerebral arteries (2 sources) Internal carotid artery stenosis; Translations: [Occlusion and stenosis of unspecified carotid artery] Onset: 06-18-2024 06-18-2024 Chronic Other and ill-defined heart disease (14 sources) Diastolic dysfunction; Translations: [Other ill-defined heart diseases] 11-06-2017 Chronic Other bone disease and musculoskeletal deformities (2 sources) X-ray evidence of poor mineralization; Translations: [Other specified disorders of bone density and structure, unspecified site] Episodic Other bone disease and musculoskeletal deformities (2 sources) Osteopenia; Translations: [Other specified disorders of bone density and structure, unspecified site] 01-30-2023 Episodic Other circulatory disease (6 sources) Disorder of carotid artery; Translations: [Disorder of arteries and arterioles, unspecified] 05-23-2023 Chronic Other circulatory disease (3 sources) Disorder of arteries and arterioles, unspecified; Translations: [Unspecified disorders of arteries and arterioles] Onset: 06-27-2024 05-23-2023 Chronic Other circulatory disease (14 sources) Carotid bruit; Translations: [Other specified symptoms and signs involving the circulatory and respiratory systems] 01-18-2021 Episodic Other circulatory disease (4 sources) Other specified symptoms and signs involving the circulatory and respiratory systems; Translations: [Other symptoms involving cardiovascular system] Episodic Other circulatory disease (9 sources) H/O: heart disorder; Translations: [Personal history of other diseases of the circulatory system] 06-22-2022 Episodic Other circulatory disease (2 sources) History of cerebrovascular accident; Translations: [Personal history of transient ischemic attack (TIA), and cerebral infarction without residual deficits] 05-24-2024 Episodic Other circulatory disease (1 source) Personal history of transient ischemic attack (TIA), and cerebral infarction without residual deficits; Translations: [History of stroke] Onset: 06-18-2024 Episodic Other connective tissue disease (8 sources) Neurological symptom; Translations: [Other symptoms and signs involving the nervous system] 05-24-2024 Episodic Other connective tissue disease (2 sources) Recurrent falls ; Translations: [Repeated falls] 05-24-2024 Episodic Other connective tissue disease (1 source) Repeated falls; Translations: [Recurrent falls] Onset: 06-18-2024 Episodic Other connective tissue disease (1 source) Other symptoms and signs involving the nervous system; Translations: [Other symptoms and signs involving the nervous system] Onset: 06-04-2024 Episodic Other diseases of bladder and urethra (1 source) Overactive bladder; Translations: [Overactive bladder] 01-23-2024 Chronic Other fractures (2 sources) Fracture of left rib; Translations: [Fracture of one rib, left side, initial encounter for closed fracture] 02-01-2024 Episodic Other gastrointestinal disorders (12 sources) Constipation; Translations: [Constipation, unspecified] 09-08-2021 Episodic Other hereditary and degenerative nervous system conditions (1 source) Early onset cerebellar ataxia; 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 Other nervous system disorders (2 sources) Neuropathy; Translations: [Polyneuropathy, unspecified] 05-24-2024 Chronic Other nervous system disorders (1 source) Polyneuropathy, unspecified; Translations: [Neuropathy] Onset: 08-20-2024 Chronic Other nervous system disorders (4 sources) Impairment of balance; Translations: [Other abnormalities of gait and mobility] 03-05-2024 Episodic Other nervous system disorders (1 source) Other abnormalities of gait and mobility; Translations: [Loss of balance] Onset: 06-18-2024 Episodic Other non-traumatic joint disorders (14 sources) Joint pain; Translations: [Pain in unspecified joint] 08-24-2021 Episodic Residual codes; unclassified (18 sources) Obstructive sleep apnea syndrome; Translations: [Obstructive sleep apnea (adult) (pediatric)] 11-06-2017 Chronic Residual codes; unclassified (1 source) Obstructive sleep apnea (adult) (pediatric); Translations: [Obstructive sleep apnea (adult) (pediatric)] Onset: 06-27-2024 Chronic Secondary malignancies (20 sources) Secondary malignant neoplasm of bone; Translations: [Secondary malignant neoplasm of bone] Onset: 10-08-2021 10-08-2021 Chronic Secondary malignancies (1 source) Secondary malignant neoplasm of bone; Translations: [Malignant neoplasm 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)] Onset: 06-19-2022 Chronic Spondylosis; intervertebral disc disorders; other back problems (20 sources) Lumbago; Translations: [Pain in left lumbar region of back] Onset: 06-18-2024 10-15-2022 Episodic Unclassified (2 sources) G47.33 - Obstructive sleep apnea (adult) (pediatric) Unclassified (1 source) Established Patient Onset: 08-20-2024 Unclassified (1 source) Low back pain, unspecified back pain laterality, unspecified chronicity, unspecified whether sciatica present; Translations: [Low back pain, unspecified back pain laterality, unspecified chronicity, unspecified whether sciatica present] Onset: 06-04-2024 Past or Other Problems Problem Classification Problem Date Documented Da te Episodic/Chronic Abdominal pain (20 sources) Suprapubic pain; Translations: [Pelvic and perineal pain] Onset: 04-03-2009 04-03-2009 Episodic Other injuries and conditions due to external causes (1 source) Encounter for examination and observation following other accident; Translations: [Encounter for examination and observation following other accident] Onset: 02-18-2024 Episodic Other screening for suspected conditions (not mental disorders or infectious disease) (20 sources) Raised prostate specific antigen; Translations: [Elevated prostate specific antigen [PSA]] Onset: 07-07-2005 07-07-2005 Episodic Results Test Name Value Interpretation Reference Range Facility [place] BY IFA WITH REFLEXon Nuclear Ab Ql (S) Negative Normal Negative [facility] Comment on above: Order Comment: Speci men Type: BLOOD SPECIMEN Ordering Facility: [facility] Address: [address] [place], [place] [id number] Result Comment: Anti -nuclear antibody test is used as an aid in diagnosis of systemic autoimmune diseases. Where positive and clinically warranted, follow-up using disease-specific testing is recommended. Low positive titers are not uncommon with advanced age, certain chronic infections, and malignancies among others. Test methodology: Indirect fluorescence immunoassay (IFA) using HEp-2 cells. Performed By: #### 4 537-7 #### [facility] CLIA [id number] [address] [place] [address] [place] [address] [place] CBC W Auto Differential pane l (Bld)on 08-20-2024 Basophils (Bld) [#/Vol] 0.03 10*3/uL Normal <0.11 [facility] Comment on above: Order Comment: Speci men Type: BLOOD SPECIMENOrdering Facility: [facility] Address: [address] [place] [address] Performed By: #### 5 7021-8 ####[facility] [id number] [place] [address] [place] Basophils/100 WBC (Bld) 0.3 % Normal [facility] Comment on above: Order Comment: Speci men Type: BLOOD SPECIMENOrdering Facility: [facility] Address: [address] [place] [address] Performed By: #### 5 7021-8 ####[facility] [id number] [place] [address] [place] Differential cell count method Nom (Bld) Auto Normal [facility] Comment on above: Order Comment: Speci men Type: BLOOD SPECIMENOrdering Facility: [facility] Address: [address] [place] [address] Performed By: #### 5 7021-8 ####[facility] [id number] [place] [address] [place] Eosinophils (Bld) [#/Vol] 0.20 10*3/uL Normal <0.46 [facility] Comment on above: Order Comment: Speci men Type: BLOOD SPECIMENOrdering Facility: [facility] Address: [address] [place] [address] Performed By: #### 5 7021-8 ####[facility] CATNCBIBIANAA [id number] [place] [address] [place] Eosinophils/100 WBC (Bld) 1.9 % Normal [facility] Comment on above: Order Comment: Speci men Type: BLOOD SPECIMENOrdering Facility: [facility] Address: [address] [place] [address] Performed By: #### 5 7021-8 ####[facility] ADRIANEAGLE GROVENCLIBarber [id number] [place] [address] [place] Erythrocyte distribution width (RBC) [Ratio] 13.7 % Normal 11.5-15.0 [facility] Comment on above: Order Comment: Speci men Type: BLOOD SPECIMENOrdering Facility: [facility] Address: [address] [place] [address] Performed By: #### 5 7021-8 ####[facility] ERNCA [id number] [place] [address] [place] Hematocrit (Bld) [Volume fraction] 39.0 % Normal 39.0-51.0 [facility] Comment on above: Order Comment: Speci men Type: BLOOD SPECIMENOrdering Facility: [facility] Address: [address] [place] [address] Performed By: #### 5 7021-8 ####[facility] ERMASONLIA [id number] [place] [address] [place] Hemoglobin (Bld) [Mass/Vol] 13.0 g/dL Normal 13.0-17.0 [facility] Comment on above: Order Comment: Speci men Type: BLOOD SPECIMENOrdering Facility: [facility] Address: [address] [place] [address] Performed By: #### 5 7021-8 ####[facility] MILLWNCLIA [id number] [place] [address] [place] Immature granulocytes (Bld) [#/Vol] 0.08 10*3/uL Normal <0.10 [facility] Comment on above: Order Comment: Speci men Type: BLOOD SPECIMENOrdering Facility: [facility] Address: [address] [place] [address] Performed By: #### 5 7021-8 ####[facility] [id number] [place] [address] [place] Immature granulocytes/100 WBC (Bld) 0.8 % Normal [facility] Comment on above: Order Comment: Speci men Type: BLOOD SPECIMENOrdering Facility: [facility] Address: [address] [place] [address] Performed By: #### 5 7021-8 ####[facility] [id number] [place] [address] [place] Lymphocytes (Bld) [#/Vol] 0.77 10*3/uL Low 1.00-4.00 [facility] Comment on above: Order Comment: Speci men Type: BLOOD SPECIMENOrdering Facility: [facility] Address: [address] [place] [address] Performed By: #### 5 7021-8 ####[facility] [id number] [place] [address] [place] Lymphocytes/100 WBC (Bld) 7.3 % Normal [facility] Comment on above: Order Comment: Speci men Type: BLOOD SPECIMENOrdering Facility: [facility] Address: [address] [place] [address] Performed By: #### 5 7021-8 ####[facility] ERNCLIA [id number] [place] [address] [place] MCH (RBC) [Entitic mass] 31.2 pg Normal 26.0-34.0 [facility] Comment on above: Order Comment: Speci men Type: BLOOD SPECIMENOrdering Facility: [facility] Address: [address] [place] [address] Performed By: #### 5 7021-8 ####[facility] ERJANA [id number] [place] [address] [place] MCHC (RBC) [Mass/Vol] 33.3 g/dL Normal 30.5-36.0 [facility] Comment on above: Order Comment: Speci men Type: BLOOD SPECIMENOrdering Facility: [facility] Address: [address] [place] [address] Performed By: #### 5 7021-8 ####[facility] ERMASONBarber [id number] [address] [place] MCV (RBC) [Entitic vol] 93.5 fL Normal 80.0-100.0 C [facility] Comment on above: Order Comment: Speci men Type: BLOOD SPECIMENOrdering Facility: [facility] Address: [address] [place] [address] Performed By: #### 5 7021-8 ####[facility] ERJANA [id number] [place] [address] [place] Monocytes (Bld) [#/Vol] 0.67 10*3/uL Normal <0.87 [facility] Comment on above: Order Comment: Speci men Type: BLOOD SPECIMENOrdering Facility: [facility] Address: [address] [place] [address] Performed By: #### 5 7021-8 ####[facility] ERNCLIA [id number] [place] [address] [place] Monocytes/100 WBC (Bld) 6.3 % Normal C [facility] Comment on above: Order Comment: Speci men Type: BLOOD SPECIMENOrdering Facility: [facility] Address: [address] [place] [address] Performed By: #### 5 7021-8 ####[facility] ADRIANEAGLE GROVEMASONLIA [id number] [place] [address] [place] Neutrophils (Bld) [#/Vol] 8.85 10*3/uL High 1.45-7.50 [facility] Comment on above: Order Comment: Speci men Type: BLOOD SPECIMENOrdering Facility: [facility] Address: [address] [place] [address] Performed By: #### 5 7021-8 ####[facility] [id number] [place] [address] [place] Neutrophils/100 WBC (Bld) 83.4 % Normal [facility] Comment on above: Order Comment: Speci men Type: BLOOD SPECIMENOrdering Facility: [facility] Address: [address] [place] [address] Performed By: #### 5 7021-8 ####[facility] [id number] [place] [address] [place] Nucleated RBC (Bld) [#/Vol] 10*3/uL Normal <0.01 [facility] Comment on above: Order Comment: Speci men Type: BLOOD SPECIMENOrdering Facility: [facility] Address: [address] [place] [address] Performed By: #### 5 7021-8 ####[facility] [id number] [place] [address] [place] Nucleated RBC/100 WBC (Bld) [Ratio] 0.0 /100 WBC Normal [facility] Comment on above: Order Comment: Speci men Type: BLOOD SPECIMENOrdering Facility: [facility] Address: [address] [place] [address] Performed By: #### 5 7021-8 ####[facility] MILLROSALIAWNCLIA [id number] [place] [address] [place] Platelet mean volume (Bld) [Entitic vol] 10.0 fL Normal 9.0-12.7 [facility] Comment on above: Order Comment: Speci men Type: BLOOD SPECIMENOrdering Facility: [facility] Address: [address] [place], [place] [id number] Performed By: #### 5 7021-8 ####[facility] ERNCLIA [id number] [place] [address] [place] Platelets (Bld) [#/Vol] 256 10*3/uL Normal 150-400 [facility] Comment on above: Order Comment: Speci men Type: BLOOD SPECIMENOrdering Facility: [facility] Address: [address] [place], [place] [address] Performed By: #### 5 7021-8 ####[facility] ERNCLIA [id number] [place] [address] [place] RBC (Bld) [#/Vol] 4.17 10*6/uL Low 4.20-6.00 [facility] Comment on above: Order Comment: Speci men Type: BLOOD SPECIMENOrdering Facility: [facility] Address: [address] [place] [address] Performed By: #### 5 7021-8 ####[facility]ITAL[facility]CL[facility] [id number] [place] [address] [place] WBC (Bld) [#/Vol] 10.60 10*3/uL Normal 3.70-11.00 [facility] Comment on above: Order Comment: Speci men Type: BLOOD SPECIMENOrdering Facility: [facility] Address: [address] [place], [place] [id number] Performed By: #### 5 7021-8 ####[facility] [id number] [place] [address] [place] CNOVSPon 08-20-2024 CNOVSP Visit (SP) Office (IGOR) ----- ALEX CARPENTER ([id number]) 1935 M Date Time Provider Department 08/20/24 1:00 PM CRISSY MAI During your visit today, we recorded the following information about you: Temperature Pulse Blood pressure Weight 98.5 degrees 83/minute 142/82 84.1 kg Crissy Mai 08/20/2024 3:40 PM Signed Alex Carpenter 1935 08/20/2024 HISTORY OF PRESENT ILLNESS: Alex Carpenter is a 87 year old male diagnosed with prostate cancer in 1998, status post radical prostatectomy for [place] score 6 = 3+3. He had been on intermittent ADT for biochemical failure, elevated PSA, in the past. Component Latest Ref Rng AND Units 03/04/2019 03/06/2019 07/05/2019 09/23/2020 PSA 0.00 - 2.59 ng/mL 29.01 (H) 33.08 (H) 0.25 0.92 He had not had LHRH injection until recently when his PSA was over 210 by his primary care physician because of generalized aches and pain. Subsequent CT scan of the abdomen pelvis and bone scan recently showed findings suggestive of metastatic deposit along the anterior aspect of the right seventh rib in the pedicle of the left side of T12. There is left hemisacrum activity as well. Degenerative changes noted in both knees and both shoulder joints. His bone density test within the last year showed evidence of osteopenia. Started back on androgen deprivation therapy with Eligard in September 2021, due to PSA 246. He had no hot flashes, increased fatigue or muscle weakness. He denied difficulty with urination. He had general arthritis pain in both knee and shoulder along with generalized aching. No change in weight or appetite. CT scans negative, bone scan in 2021 suggested bone mets Previous therapy: 1) Apalutamide. Started September 2021. Stopped in June 2022 due to generalized weakness and malaise. Current treatment: 1) Lupron every 3 months. 2) Zometa every 6 months Interim history: Doing ok. Balance is pretty bad using rollator today. He is following with neuro, recent referral to spine. Denies new aches or pains. Chronic knee pain L>R. Considering a replacement. Denies new or worsening SOB, CP, or palpitations. No changes in bowel or bladder habits. No rash or skin changes. Denies bleeding or bruising. Denies HF, NS. Overall tolerating injections well. CLINICAL IMPRESSION: Prostate cancer biochemical relapse, bone scan in 2021 suggested bone mets (report is listed in scanned documents labelled bone density). Doing well on GnRH agonist alone PSA remains stable RECOMMENDATION/PLAN: 1. Continue lupron q 3 months, will add back apalutamide if PSA continues to climb. 2. Zometa every 3 months 3. Follow PSA PAST MEDICAL HISTORY Diagnosis Date Bone metastases 10/08/2021 HTN (hypertension) Malignant neoplasm 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) Prostate cancer (HCC) SCC (squamous cell carcinoma), face PAST SURGICAL HISTORY Procedure Laterality Date PROSTATECTOMY;RADICAL RETROPUBIC 1996 FAMILY HISTORY Problem Relation Age of Onset Breast Cancer Mother Cancer Father Social History Tobacco Use Smoking status: Never Smokeless tobacco: Never Vaping Use Vaping status: Never Used Substance Use Topics Alcohol use: No Drug use: Never ALLERGIES: ALLERGIES Allergen Reactions Lisinopril Cough CURRENT OUTPATIENT MEDICATIONS: oxyCODONE-acetaminophen (PERCOCET) 5-325 mg tabletTake 1 tablet by mouth every 6 hours as needed.Disp: Rfl: losartan (COZAAR) 25 mg tabletTake 25 mg by mouth once daily.Disp: Rfl: ergocalciferol 50,000 unit capsule (VITAMIN D2, DRISDOL)Take 1 capsule by mouth one time a week.Disp: 12 capsuleRfl: 3 meloxicam (MOBIC) 7.5 mg tabletTake 7.5 mg by mouth once daily.Disp: Rfl: magnesium hydroxide (MAGNESIA ORAL)Take 400 mg by mouth once daily as needed (constipation).Disp: Rfl: (Patient taking differently: Take 400 mg by mouth once daily.) POTASSIUM-99 ORALTake 1 tablet by mouth once daily.Disp: Rfl: ubidecarenone (ULTRA COQ10 ORAL)Take by mouth once daily.Disp: Rfl: hydroCHLOROthiazide (HYDRODIURIL, ESIDRIX) 12.5 mg capsuleTake 12.5 mg by mouth once daily.Disp: Rfl: metoprolol tartrate, short acting, (LOPRESSOR) 50 mg tabletTake 25 mg by mouth two times a day.Disp: Rfl: atorvastatin 40 mg tabletTake 20 mg by mouth once daily.Disp: Rfl: aspirin, enteric coated 81 mg EC tabletTake 81 mg by mouth once daily.Disp: Rfl: GLUCOSAM/MSM/CHONDR/VIT C/HYAL (GLUCOSAMINE-CHONDROITIN- MSM ORAL)Take 1 tablet by mouth two times a day.Disp: Rfl: nitroglycerin sublingual (NITROQUICK) 0.4 mg SL tabletDissolve 0.4 mg under the tongue every 5 minutes as needed.Disp: Rfl: Fish Oil-Shields-3 Fatty Acids 500-300 mg ORAL CapTake by mouth.Disp: Rfl: 0 ergocalciferol, vitamin D2, (VITAMIN D2 ORAL)Take by mouth.Disp: Rfl: (Patient not taking: Reported on 08/20/2024) oxybutynin XL (DITROPAN XL) 5 mg 24 hr tabletTake 1 tablet by mouth once daily.Dis (more content not included)... Normal [facility] Comprehensive metabolic 2000 panelon 08-20-2024 Albumin [Mass/Vol] 3.8 g/dL Low 3.9-4.9 [facility] Comment on above: Order Comment: Speci men Type: BLOOD SPECIMEN Ordering Facility: [facility] Address: [address] [place] [address] Performed By: #### 4 537-7 #### [facility] CLIA [id number] [address] [place] [address] [place] ALP [Catalytic activity/Vol] 103 U/L Normal 38-113 [facility] Comment on above: Order Comment: Speci men Type: BLOOD SPECIMEN Ordering Facility: [facility] Address: [address] [place] [address] Performed By: #### 4 537-7 #### [facility] CLIA [id number] [address] [place] [id number] [place] ALT [Catalytic activity/Vol] 11 U/L Normal 10-54 [facility] Comment on above: Order Comment: Speci men Type: BLOOD SPECIMEN Ordering Facility: [facility] Address: [address] [place] [address] Performed By: #### 4 537-7 #### [facility] CLIA [id number] [address] [place] [address] [place] Anion gap [Moles/Vol] 10 mmol/L Normal 8-15 [facility] Comment on above: Order Comment: Speci men Type: BLOOD SPECIMEN Ordering Facility: [facility] Address: [address] [place] [address] Performed By: #### 4 537-7 #### [facility] CLIA [id number] [address] [place] [address] [place] AST [Catalytic activity/Vol] 16 U/L Normal 14-40 [facility] Comment on above: Order Comment: Speci men Type: BLOOD SPECIMEN Ordering Facility: [facility] Address: [address] [place] [address] Performed By: #### 4 537-7 #### [facility] CLIA [id number] [address] [place] [address] [place] Bilirubin [Mass/Vol] 0.7 mg/dL Normal 0.2-1.3 [facility] Comment on above: Order Comment: Speci men Type: BLOOD SPECIMEN Ordering Facility: [facility] Address: [address] [place] [address] Performed By: #### 4 537-7 #### [facility] CLIA [id number] [address] [place], [place] [id number] [place] Calcium [Mass/Vol] 9.0 mg/dL Normal 8.5-10.2 [facility] Comment on above: Order Comment: Speci men Type: BLOOD SPECIMEN Ordering Facility: [facility] Address: [address] [place] [address] Performed By: #### 4 537-7 #### [facility] CLIA [id number] [address] [place] [address] [place] Chloride [Moles/Vol] 104 mmol/L Normal 98-107 [facility] Comment on above: Order Comment: Speci men Type: BLOOD SPECIMEN Ordering Facility: [facility] Address: [address] [place] [address] Performed By: #### 4 537-7 #### [facility] CLIA [id number] [address] [place] [address] [place] CO2 [Moles/Vol] 24 mmol/L Normal 22-30 [facility] Comment on above: Order Comment: Speci men Type: BLOOD SPECIMEN Ordering Facility: [facility] Address: [address] [place] [address] Performed By: #### 4 537-7 #### [facility] CLIA [id number] [address] [place] [address] [place] Creatinine [Mass/Vol] 1.21 mg/dL Normal 0.73-1.22 [facility] Comment on above: Order Comment: Speci men Type: BLOOD SPECIMEN Ordering Facility: [facility] Address: [address] [place] [address] Performed By: #### 4 537-7 #### [facility] CLIA [id number] [address] [place] [address] [place] Creatinine and Glomerular filtration rate.predicted panel (S/P/Bld) 58 mL/min/1.73m??? Low >=60 [facility] Comment on above: Order Comment: Speci men Type: BLOOD SPECIMEN Ordering Facility: [facility] Address: [address] [place] [address] Result Comment: Isabel mated Glomerular Filtration Rate (eGFR) is calculated using the 2020 CKD-EPI creatinine equation. This equation utilizes serum creatinine, sex, and age as parameters. The creatinine assay has traceable calibration to isotope dilution-mass spectrometry. Refer to KDIGO guidelines for clinical interpretation. In patients with unstable renal function, e.g. those with acute kidney injury, the eGFR may not accurately reflect actual GFR. Performed By: #### 4 537-7 #### [facility] CLIA [id number] [address] [place] [address] [place] Glucose [Mass/Vol] 121 mg/dL High 74-99 [facility] Comment on above: Order Comment: Edgard wood Type: BLOOD SPECIMEN Ordering Facility: [facility] Address: [address] [place] [address] Result Comment: The [place] Diabetes Association (ADA) provides guidance for cutoff values for fasting glucose and random glucose. The ADA defines fasting as no caloric intake for at least 8 hours. Fasting plasma glucose results between 100 to 125 mg/dL indicate increased risk for diabetes (prediabetes). Fasting plasma glucose results greater than or equal to 126 mg/dL meet the criteria for diagnosis of diabetes. In the absence of unequivocal hyperglycemia, results should be confirmed by repeat testing. In a patient with classic symptoms of hyperglycemia or hyperglycemic crisis, random plasma glucose results greater than or equal to 200 mg/dL meet the criteria for diagnosis of diabetes. Reference: Standards of Medical Care in Diabetes 2016, [place] Diabetes Association. Diabetes Care. 2016.39(Suppl 1). Performed By: #### 4 537-7 #### [facility] CLIA [id number] [address] [place], [place] [address] [place] Potassium [Moles/Vol] 4.0 mmol/L Normal 3.7-5.1 [facility] Comment on above: Order Comment: Edgard wood Type: BLOOD SPECIMEN Ordering Facility: [facility] Address: [address] [place], [place] [address] Performed By: #### 4 537-7 #### [facility] CLIA [id number] [address] [place] [address] [place] Protein [Mass/Vol] 6.0 g/dL Low 6.3-8.0 [facility] Comment on above: Order Comment: Speci men Type: BLOOD SPECIMEN Ordering Facility: [facility] Address: [address] [place] [address] Performed By: #### 4 537-7 #### [facility] CLIA [id number] [address] [place] [address] [place] Sodium [Moles/Vol] 138 mmol/L Normal 136-144 [facility] Comment on above: Order Comment: Speci men Type: BLOOD SPECIMEN Ordering Facility: [facility] Address: [address] [place] [address] Performed By: #### 4 537-7 #### [facility] CLIA [id number] [address] [place] [address] [place] Urea nitrogen [Mass/Vol] 30 mg/dL High 9-24 [facility] Comment on above: Order Comment: Speci men Type: BLOOD SPECIMEN Ordering Facility: [facility] Address: [address] [place] [address] Performed By: #### 4 537-7 #### [facility] CLIA [id number] [address] [place] [address] [place] ESR Westergren method (Bld) [Velocity]on 08-20-2024 ESR (Bld) [Velocity] 8 mm/h Normal 0-15 [facility] Comment on above: Order Comment: Speci men Type: BLOOD SPECIMEN Ordering Facility: [facility] Address: [address] [place] [address] Performed By: #### 4 537-7 #### [facility] CLIA [id number] [address] [place] [address] [place] HbA1c (Bld)on 08-20-2024 Average glucose Estimated from glycated hemoglobin (Bld) [Mass/Vol] 120 mg/dL Normal [facility] Comment on above: Order Comment: Speci men Type: BLOOD SPECIMEN Ordering Facility: [facility] Address: [address] [place] [address] Result Comment: eAG: (Estimated average glucose) is a calculated value from HgbA1c and is inbound call center representative of the average blood glucose level in the last 2-3 month period. Performed By: #### 5 5454-3 #### [facility] CLIA [id number] [address] [place] [address] [place] HbA1c (Bld) [Mass fraction] 5.8 % High 4.3-5.6 [facility] Comment on above: Order Comment: Edgard wood Type: BLOOD SPECIMEN Ordering Facility: [facility] Address: [address] [place] [address] Result Comment: er ican Diabetes Association guidelines indicate that patients with HgbA1c in the range 5.7-6.4% are at increased risk for development of diabetes, and intervention by lifestyle modification may be beneficial. HgbA1c greater or equal to 6.5% is considered diagnostic of diabetes. Performed By: #### 5 5454-3 #### [facility] CLIA [id number] [address] [place] [address] [place] PROTEIN ELECTROPHORESIS SERU M (P)on 08-20-2024 Albumin [Mass/Vol] 3.59 g/dL Normal 3.43-5.41 [facility] Comment on above: Order Comment: Edgard wood Type: BLOOD SPECIMENOrdering Facility: [facility] Address: [address] [place] [address] Performed By: #### L [id number] ####[facility] [id number] [place] [address] [place] Alpha 1 globulin Elph [Mass/Vol] 0.27 g/dL Normal 0.18-0.43 [facility] Comment on above: Order Comment: Edgard wood Type: BLOOD SPECIMENOrdering Facility: [facility] Address: [address] [place] [address] Performed By: #### L [id number] ####[facility] [id number] [place] [address] [place] Alpha 2 globulin Elph [Mass/Vol] 0.62 g/dL Normal 0.42-0.98 [facility] Comment on above: Order Comment: Speci men Type: BLOOD SPECIMENOrdering Facility: [facility] Address: [address] [place] [address] Performed By: #### L [id number] ####[facility] [id number] [place] [address] [place] Beta globulin Elph [Mass/Vol] 0.68 g/dL Normal 0.61-1.17 [facility] Comment on above: Order Comment: Speci men Type: BLOOD SPECIMENOrdering Facility: [facility] Address: [address] [place] [address] Performed By: #### L [id number] ####[facility] [id number] [address] [place] Gamma globulin Elph [Mass/Vol] 0.55 g/dL Normal 0.53-1.51 [facility] Comment on above: Order Comment: Speci men Type: BLOOD SPECIMENOrdering Facility: [facility] Address: [address] [place] [address] Performed By: #### L [id number] ####[facility] [id number] [address] [place] M-PROTEIN LOCATION Normal [facility] Comment on above: Order Comment: Speci men Type: BLOOD SPECIMENOrdering Facility: [facility] Address: [address] [place] [address] Result Comment: Not Applicable. Performed By: #### L [id number] ####[facility] [id number] [place] [id number] [place] Protein Fractions [Interp] No definitive M protein is identified on protein electrophoresis. Normal No definitive M protein is identified on protein electrophor esis. [facility] Comment on above: Order Comment: Speci men Type: BLOOD SPECIMENOrdering Facility: [facility] Address: [address] [place] [address] Performed By: #### L [id number] ####[facility] [id number] [address] [place] [address] [place] Protein.monoclonal Elph [Mass/Vol] 0.00 g/dL Normal <=0.00 [facility] Comment on above: Order Comment: Speci men Type: BLOOD SPECIMENOrdering Facility: [facility] Address: [address] [place] [address] Performed By: #### L [id number] ####[facility] [id number] [address], [place] [address] [place] SPE STAFF REVIEW Reviewed by Alexander Sandoval MD, Ph.D ([id number]) Normal [facility] Comment on above: Order Comment: Speci men Type: BLOOD SPECIMENOrdering Facility: [facility] Address: [address] [place] [address] Performed By: #### L [id number] ####[facility] [id number] [place] [address] [place] PSA SerPl-mCncon 08-20-2024 Prostate specific Ag [Mass/Vol] 0.10 ng/mL Normal <2.60 [facility] Comment on above: Order Comment: Speci men Type: BLOOD SPECIMEN Ordering Facility: [facility] Address: [address] [place] [address] Result Comment: Tota l PSA test methodology used is the Electrochemiluminescence Immunoassay by [employer]. Total PSA values by differing methodologies cannot be interchanged. Performed By: #### 4 537-7 #### [facility] CLIA [id number] [address] [place] [address] [place] Prot SerPl-mCncon 08-20-2024 Protein [Mass/Vol] 5.7 g/dL Low 6.3-8.0 [facility] Comment on above: Order Comment: Speci men Type: BLOOD SPECIMENOrdering Facility: [facility] Address: [address] [place] [address] Performed By: #### 2 885-2, 2131-11, 3015-3, 7 ####[facility] [id number] [place] [id number] [place] T4 Free SerPl-mCncon 025 Free T4 [Mass/Vol] 1.3 ng/dL Normal 0.9-1.7 [facility] Comment on above: Order Comment: Speci men Type: BLOOD SPECIMENOrdering Facility: [facility] Address: [address] [place] [address] Performed By: #### 2 885-2, 2131-11, 3, 7 ####[facility] [id number] [place] [id number] [place] TSH SerPl-aCncon 08-20-2024 TSH Qn 2.530 m[IU]/L Normal 0.270-4.200 [facility] Comment on above: Order Comment: Speci men Type: BLOOD SPECIMENOrdering Facility: [facility] Address: [address] [place] [address] Performed By: #### 2 885-2, 2131-11, 3, 7 ####[facility] [id number] [place] [id number] [place] Vit B12 SerPl-mCncon 025 Cobalamin (Vitamin B12) [Mass/Vol] 364 pg/mL Normal 232-1245 [facility] Comment on above: Order Comment: Speci men Type: BLOOD SPECIMENOrdering Facility: [facility] Address: [address] [place] [address] Performed By: #### 2 885-2, 2131-11, 3, 3024-7 ####[facility] [id number] [place] [id number] [place] Bilirubin directOrdered By: Damaris Lee on 06-27-2024 Bilirubin.direct [Mass/Vol] 0.18 mg/dL 0.00-0.30 [facility] Bilirubin, totalOrdered By: Damaris Lee on 06-27-2024 Bilirubin [Mass/Vol] 0.39 mg/dL 0.00-1.30 [facility] Calculated very low density lipoprotein (VLDL) cholesterol measurementOrdered By: Damaris Lee on 06-27-2024 Calculated very low density lipoprotein (VLDL) cholesterol measurement 23 mg/dL 5-40 [facility] VLDL Cholesterol 23 mg/dL 5-40 [facility] Cardiology Visit Reporton Cardiology Visit Report [facility]. [address] [place], [place] [address] OFFICE VISIT Date of Service: 06/27/24 MR#: [id number] Acct: [id number] Name: ALXE CARPENTER Rep #: [id number] : 1935 Provider: MARIE Sheridan Age/Sex: 88/M Location: [facility] Status: Signed HPI HPI History of Present Illness Details: Alex Carpenter is an 88 year-old white male who presents today for an outpatient cardiovascular follow-up visit. He has a history of underlying CAD status post IMMANUEL (2013), aortic valve stenosis, hyperlipidemia, and hypertension. feels that pt is more fatigued. He does not have any chest pain/heaviness. He does not have any worsening of SOB. He does not have any lightheadedness/dizziness . He does not have any edema. He does ambulate with a cane. 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 Is patient in pain?: No Allergies lisinopril Adverse Reaction (Severe, Verified 01/24/24 02:41) cough Medications ???Medication ???Instructions ???Recorded ???Confirmed ???Type aspirin 81 mg tablet,delayed 81 mg PO QDAY 11/06/17 06/27/24 Hi story release kdisdvmqztg-snifojbna-iay C-Mn 750 1 ea PO DAILY 05/19/19 06/27/24 History mg-600 mg-55 mg-5 mg tablet ergocalciferol (vitamin D2) 1,250 1,250 mcg PO QWEEK 10/14/2106/27 History mcg (50,000 unit) capsule zoledronic acid 4 mg/100 mL in See Rx Instructions .Route .COMPLE X 06/21/22 06/27/24 History mannitol 5 %-water intravenous piggybck magnesium 250 mg tablet 250 mg PO DAILY 10/15/22 06/27/24 History meloxicam 7.5 mg tablet 7.5 mg PO DAILY PAIN 10/15/2206/18 History potassium 99 mg tablet 99 mg PO DAILY 10/15/22 06/27/24 H istory nitroglycerin 0.4 mg sublingual 0.4 mg sublingual Q5-15M PRN chest 05/23/23 06/27/24 Rx tablet pain #25 tabs metoprolol tartrate 25 mg tablet 25 mg PO BID #180 tabs 07/11/23 Rx hydrochlorothiazide 12.5 mg tablet 12.5 mg PO DAILY #90 tabs 06/27/24 Rx losartan 25 mg tablet 25 mg PO DAILY #90 tabs 08/28/23 0 06/27/24 Rx atorvastatin 20 mg tablet 20 mg PO .QOD 12/26/23 06/27/24 Hi story calcium 200 mg (as 1 tab PO DAILY 01/24/24 06/27/24 H istory citrate)-vitamin D3 6.25 mcg (250 unit) tablet coenzyme Q10 100 mg capsule 300 mg PO DAILY 01/24/24 06/27/24 History (CoQ-10) omega 6-ywc-frv-fish oil 300 1 cap PO DAILY 01/24/24 06/27/24 H istory mg-1,000 mg capsule (Fish Oil) ondansetron 4 mg disintegrating 4 mg PO TID PRN nausea and 4 06/27/24 Rx tablet vomiting #21 tabs oxycodone-acetaminophen 5 mg-325 1 tab PO Q6H PRN pain 5 days #20 1 03/25/23 06/27/24 Rx mg tablet (Percocet) tabs Ejection fraction %: 65 Have you fallen in the past year?: Yes PFSH Medical History Bilateral carotid bruits Nonrheumatic aortic (valve) stenosis Essential hypertension SHAMAR (obstructive sleep apnea) Old myocardial infarction Diastolic dysfunction Premature atrial contractions Cardiac murmur Hyperlipidemia Hypertension Atherosclerotic heart disease of [place] coronary artery without angina pectoris Surgical History Postsurgical percutaneous transluminal coronary angioplasty (PTCA) status ( 07/29/13) Presence of stent in coronary artery ( 07/29/13) Social History Smoking Status: Never smoker alcohol intake: current details: Rare substance use type: does not use ROS Const Const: Positive for fatigue and weakness; Negative for headache(s) or frequent falls Eyes Eyes: Negative for blurry vision ENT ENT: Negative for headache(s), dizziness or Nosebleed/epistaxis Cardio Chest Pain: No Palpitations: No Edema: Bilateral and None Muscle aches with walking: None Resp Respiratory: Negative for SOB with activity, SOB at rest or SOB orthopnea SOB lying down GI GI: Negative nausea, vomiting, heartburn, bright, red blood in stools or black,tarry stools : Negative for hematuria Neuro Neuro: Positive for weakness; Negative for dizziness, lightheadedness, near syncope, syncope, frequent falls, headache(s) or blurry vision Endo Endo: Positive for fatigue Cardiology Exam Const Appearance: cooperative, healthy appearing, comfortable and no acute distress Nutritional Appearance: well nourished and obese Orientation: alert, awake an (more content not included)... Normal [facility] LDL calc ser/plasOrdered By: Damaris Lee on 06-27-2024 Cholesterol in LDL [Mass/Vol] 63 mg/dL [facility] Comment on above: Vfbqmntnmq=479-528 m g/dL & Higher Wxwh=987 mg/dL or greater LDL Cholesterol, Calculated 63 mg/dL [facility] Comment on above: Tjpsohcewv=889-843 m g/dL & Higher Miqp=075 mg/dL or greater Laboratory - Chemistry and C hemistry - challengeOrdered By: Damariskamala Lee on 06-27-2024 AST [Catalytic activity/Vol] 22 U/L <38 [facility] Lipid Profileon 06-27-2024 CHOL:HDL 2.65 Normal [facility] Comment on above: Order Comment: Comme nts: okay to do non fasting Performed By: #### L 500.3400, L500.4100 #### [facility] [address] [place], [address] Cholesterol [Mass/Vol] 137 mg/dL Normal <=200 [facility] Comment on above: Order Comment: Comme nts: okay to do non fasting Result Comment: Chol esterol level, Desirable <200 mg/dL Borderline high cholesterol 200-239 mg/dL High cholesterol >=240 mg/dL Recommendations of the NCEP Adult Treatment Panel for the following risk-cutoff thresholds for the [place] population. Performed By: #### L 500.3400, L500.4100 #### [facility] [address] [place], [address] Cholesterol in HDL [Mass/Vol] 52 mg/dL Normal [facility] Comment on above: Order Comment: Comme nts: okay to do non fasting Result Comment: Arleen onal Cholesterol Education Program (NCEP) guidelines: <40 mg/dL: Low HDL-cholesterol (major risk factor for CHD) >= 60 mg/dL: High HDL-cholesterol (negative risk factor for CHD) HDL-cholesterol is affected by a number of factors, e.g. smoking, exercise, hormones, sex and age. Performed By: #### L 500.3400, L500.4100 #### [facility] [address] [place], [address] Cholesterol in LDL [Mass/Vol] 63 mg/dL Normal [facility] Comment on above: Order Comment: Comme nts: okay to do non fasting Result Comment: Bord cxwfts=236-567 mg/dL Higher Cphg=790 mg/dL or greater Performed By: #### L 500.3400, L500.4100 #### [facility] [address] [place], [address] Cholesterol in VLDL [Mass/Vol] 23 mg/dL Normal 5-40 [facility] Comment on above: Order Comment: Comme nts: okay to do non fasting Performed By: #### L 500.3400, L500.4100 #### [facility] [address] [place], [address] Triglyceride [Mass/Vol] 114 mg/dL Normal [facility] Comment on above: Order Comment: Comme nts: okay to do non fasting Result Comment: The drugs N-Acetylcysteine and Metamizole may falsely depress this assay. Normal range: <150 mg/dL Borderline High: 150-199 mg/dL High: 200-499 mg/dL Very High: >500 mg/dL Performed By: #### L 500.3400, L500.4100 #### [facility] [address] [place], [address] Liver Profileon 06-27-2024 Albumin [Mass/Vol] 3.8 g/dL Normal 3.4-4.8 [facility] Comment on above: Order Comment: Comme nts: okay to do non fasting okay to do non fasting Performed By: #### L 500.3400, L500.4100 #### [facility] [address] [place], [address] ALK PHOS 78 U/L Normal 40-129 [facility] Comment on above: Order Comment: Comme nts: okay to do non fasting okay to do non fasting Performed By: #### L 500.3400, L500.4100 #### [facility] [address] [place], [address] ALT [Catalytic activity/Vol] 12 U/L Normal <=46 [facility] Comment on above: Order Comment: Comme nts: okay to do non fasting okay to do non fasting Performed By: #### L 500.3400, L500.4100 #### [facility] [address] [place], [address] AST [Catalytic activity/Vol] 22 U/L Normal <=37 [facility] Comment on above: Order Comment: Comme nts: okay to do non fasting okay to do non fasting Performed By: #### L 500.3400, L500.4100 #### [facility] [address] [place], [address] Bilirubin [Mass/Vol] 0.39 mg/dL Normal 0.00-1.30 [facility] Comment on above: Order Comment: Comme nts: okay to do non fasting okay to do non fasting Performed By: #### L 500.3400, L500.4100 #### [facility] [address] [place], [address] Bilirubin.direct [Mass/Vol] 0.18 mg/dL Normal 0.00-0.30 [facility] Comment on above: Order Comment: Comme nts: okay to do non fasting okay to do non fasting Performed By: #### L 500.3400, L500.4100 #### [facility] [address] [place], [address] Globulin (S) [Mass/Vol] 2.4 g/dL Normal 2.2-4.2 [facility] Comment on above: Order Comment: Comme nts: okay to do non fasting okay to do non fasting Performed By: #### L 500.3400, L500.4100 #### [facility] [address] [place], [address] T PROT 6.2 g/dL Normal 5.9-8.4 [facility] Comment on above: Order Comment: Comme nts: okay to do non fasting okay to do non fasting Performed By: #### L 500.8921, L500.2291 #### [facility] [address] [place], [address] Screening total cholesterol/ high density lipoprotein (HDL) cholesterol ratioOrdered By: Damaris Lee on 06-27-2024 Cholesterol.total/Choles terol in HDL [Mass ratio] 2.65 {ratio} [facility] Serum globulin measurementOr dered By: Damaris Lee on 06-27-2024 Globulin (S) [Mass/Vol] 2.4 g/dL 2.2-4.2 [facility] Serum or plasma alanine workman otransferase (ALT) measurementOrdered By: Damaris Lee on 06-27-2024 ALT [Catalytic activity/Vol] 12 U/L <47 [facility] Serum or plasma albumin lilly urement (mass/volume)Ordered By: Damaris Lee on 06-27-2024 Albumin [Mass/Vol] 3.8 g/dL 3.4-4.8 [facility] Serum or plasma alkaline fiordaliza sphatase measurementOrdered By: Damaris Lee on 06-27-2024 ALP [Catalytic activity/Vol] 78 U/L 40-129 [facility] Serum or plasma cholesterol in HDL measurement (mass/volume)Ordered By: Damaris Lee on 06-27-2024 Cholesterol in HDL [Mass/Vol] 52 mg/dL >40 [facility] Comment on above: National Cholesterol Education Program (NCEP) guidelines:<40 mg/dL: Low HDL-cholesterol (major risk factor for CHD)>= 60 mg/dL: High HDL-cholesterol (negative risk factor for CHD)HDL-cholesterol is affected by a number of factors, e.g. smoking, exercise, hormones, sex and age. Serum or plasma cholesterol measurement (mass/volume)Ordered By: Damaris Lee on 06-27-2024 Cholesterol [Mass/Vol] 137 mg/dL <201 [facility] Comment on above: Cholesterol level, D esirable <200 mg/dLBorderline high cholesterol 200-239 mg/dLHigh cholesterol >=240 mg/dLRecommendations of the NCEP Adult Treatment Panel for the following risk-cutoff thresholds for the [place] population. Total proteinOrdered By: Quincy antonykavin Lee on 06-27-2024 Protein [Mass/Vol] 6.2 g/dL 5[facility]8.4 [facility] Triglycerides measurementOrd ered By: Damaris Jesus on 06-27-2024 Triglyceride [Mass/Vol] 114 mg/dL <199 [facility] Comment on above: The drugs N-Acetylcy steine and Metamizole may falsely depress this assay. Normal range: <150 mg/dLBorderline High: 150-199 mg/dLHigh: 200-499 mg/dLVery High: >500 mg/dL CNOVon 06-18-2024 CNOV Office Visit ([facility] ) ----- ALEX CARPENTER ([id number]) 1935 M Date Time Provider Department 06/18/24 1:45 PM LEISA ROBB During your visit today, we recorded the following information about you: Pulse Blood pressure 82/minute 123/73 Leisa Robb PA-C 06/18/2024 2:43 PM Signed [facility] Name: Alex Greycarla Age: [age] year old Gender: male Primary Care Provider: Otto Subramanian MD Assessment/Plan: 06/18/2024 - General NeurologyLeisa PA-C ASSESSMENT ASSESSMENT/PLAN: 1. Recurrent falls - ICD9: V15.88, ICD10: R29.6 (primary diagnosis) 2. Neuropathy - ICD9: 355.9, ICD10: G62.9 3. Loss of balance - ICD9: 781.99, ICD10: R26.89 4. History of stroke - ICD9: V12.54, ICD10: Z86.73 5. Low back pain, unspecified back pain laterality, unspecified chronicity, unspecified whether sciatica present - ICD9: 724.2, ICD10: M54.50 6. Spinal stenosis of lumbar region, unspecified whether neurogenic claudication present - ICD9: 724.02, ICD10: M48.061 7. Intracranial carotid stenosis, unspecified laterality - ICD9: 433.10, ICD10: I65.29 Patient presents with his to review imaging. Over the last few years patient has had frequent falls. Last fall was 3 weeks ago, states that he turned too quickly and fell to the ground due to imbalance. Since this is the cause of many of his falls, no syncope or loss of consciousness. 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 Imaging was obtained of the brain to look for signs of NPH or other intracranial etiology, does show history of cerebellar strokes and MRA of the head and neck showing occlusion of the left vertebral artery and other stenosis throughout the brain. Patient is on aspirin and statin medications at this time. Discussed risk factors that contribute to worsening intracranial stenosis and to follow-up primary care for cholesterol management. Additionally, lumbar MRI did show diffuse degeneration throughout the spine with no major stenosis. Referred to spine for further evaluation. No signs or symptoms of acute cord compression at this time. Discussed conservative therapy that can also help including exercise and strength training. No other new symptoms that would warrant additional workup at this time. Patient encouraged to follow-up with primary care for stroke management and to continue with his aspirin and statin medications. Blood pressure stable in the office today. Patient and agreeable to treatment plan of care at this time, questions were answered. Patient follow-up as needed. Leisa Robb PA-C Encounter Diagnosis ICD-10-CM 1. Recurrent falls R29.6 2. Neuropathy G62.9 3. Loss of balance R26.89 4. History of stroke Z86.73 5. Low back pain, unspecified back pain laterality, unspecified chronicity, unspecified whether sciatica present M54.50 6. Spinal stenosis of lumbar region, unspecified whether neurogenic claudication present M48.061 Return if symptoms worsen or fail to improve. Chart, labs,and relevant images reviewed. Chief Complaint:Patient presents with: New Patient: Recurrent falls Chart Review: 05/24/[address] Stockton ASSESSMENT/PLAN: 1. Recurrent falls - ICD9: V15.88, ICD10: R29.6 (primary diagnosis) 2. Loss of balance - ICD9: 781.99, ICD10: R26.89 3. History of prostate cancer - ICD9: V10.46, ICD10: Z85.46 4. History of stroke - ICD9: V12.54, ICD10: Z86.73 5. Neuropathy - ICD9: 355.9, ICD10: G62.9 Patient with recurrent falls as above, of which etiology is uncertain at this time. Neurologic exam concerning for lower ext sensory deficits suggestive of both large and small fiber neuropathy, abnormal magnetic gait suggestive of NPH, and focal neuro deficits including LUE weakness suggestive of possible stroke. 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 Also in ddx given history of prostate ca with bone mets would be L spine disease with cord compression - less likely by exam but still needs to be considered. Note that while urinary issues likely related to known prostate disease, also need to consider possible NPH or L spine disease as a cause. To further evaluate the ddx above, will get MRI brain wwo contrast, as well as MRA head and neck given chronic strokes on imaging (no vertigo or lightheadedness but also consider VBI). Will also get MRI L spine wwo contrast to evaluate for met lesions. Considered imaging C and T spine as well, but would like to get results first of these imaging studies before determine further workup or treatment plan -- brain and L spine at [facility] (more content not included)... Normal [facility] MR Brain WO and W contrast I Jan 06-04-2024 * * *Final Report* * * DATE OF EXAM: Jun 04 2024 10:35AM [facility] [id number] - MRI BRAIN WO/W IVCON / PROCEDURE REASON: Other symptoms and signs involving the nervous system * * * * Physician Interpretation * * * * EXAMINATION: MRI BRAIN WO/W IVCON, MRA BRAIN WO IVCON, MRA CAROTID WO IVCON HISTORY: Other symptoms and signs involving the nervous system TECHNIQUE: Routine MRI brain protocol without and with contrast including diffusion images. Intracranial 3D [id number] MRA with post-processing performed at the modality and 2D multiplanar and 3D maximum intensity projections were created, reviewed and archived. MQ: MRAB_3 Contrast: 9 mL Elucirem IV COMPARISON: None. RESULT: BRAIN: Acute Change: No acute infarct. Hemorrhage: Few punctate foci of remote blood degradation byproducts most notably within the superior RIGHT cerebellar hemisphere and within the LEFT periatrial region. Mass Lesion/ Mass Effect: No evidence of an intracranial mass or extra-axial fluid collection. No significant mass effect. Faint area of enhancement present within LEFT aspect of the wen may reflect either a capillary telangiectasia or a subacute infarct. Chronic Change: Extensive, confluent increased T2 and FLAIR signal is present in the supratentorial white matter which is nonspecific but likely represents extensive chronic microvascular ischemia. 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 Small remote lacunar infarct within the RIGHT caudate head. Remote infarcts bilateral cerebellar hemispheres. Parenchyma: There is moderate generalized parenchymal volume loss. The brain parenchyma is otherwise within normal limits of signal intensity and morphology. Ventricles: Ventriculomegaly corresponds to the degree of parenchymal volume loss. Skull Base: Hypothalamic and pituitary region are grossly normal. Craniocervical junction is normal. No significant marrow replacement process. Vasculature: Major intracranial arterial structures, and dural venous sinuses show typical flow void, suggesting patency by spin echo criteria. Other: Minimal retained fluid mastoid air cells bilaterally. Postoperative changes involve the globes bilaterally. MRA neck/carotid arteries: Carotid Stenosis: Right Common: No significant stenosis. Right Internal Carotid Plaque: Moderate Right Internal Carotid Stenosis (% by NASCET Criteria): 30-40 Left Common: No significant stenosis. Left Internal Carotid Plaque: Moderate 50 Left Internal Carotid Stenosis (% by NASCET Criteria): Cervical Vertebral Arteries: RIGHT vertebral artery is patent. Nonvisualization of the LEFT vertebral artery may reflect slow flow or retrograde flow or alternatively occlusion. INTRACRANIAL MRA: The petrous, cavernous, and supraclinoid internal carotid arteries are patent. Anterior cerebral arteries and middle cerebral arteries are patent. Intracranial vertebral arteries, basilar artery, and posterior cerebral arteries are patent. No vessel cutoffs or aneurysms are identified. Mild ectasia of the RIGHT ICA terminus. Flow into the LEFT vertebral artery may be retrograde. DIVISION OF RADIOLOGY Provider, [facility] Tamiko [facility] - 06/04/2024 * * *Final Report* * * DATE OF EXAM: Jun 04 2024 10:35AM M [id number] - MRI BRAIN WO/W IVCON / PROCEDURE REASON: Other symptoms and signs involving the nervous system * * * * Physician Interpretation * * * * EXAMINATION: MRI BRAIN WO/W IVCON, MRA BRAIN WO IVCON, MRA CAROTID WO IVCON HISTORY: Other symptoms and signs involving the nervous system TECHNIQUE: Routine MRI brain protocol without and with contrast including diffusion images. Intracranial 3D [id number] MRA with post-processing performed at the modality and 2D multiplanar and 3D maximum intensity projections were created, reviewed and archived. MQ: MRAB_3 Contrast: 9 mL Elucirem IV COMPARISON: None. RESULT: BRAIN: Acute Change: No acute infarct. Hemorrhage: Few punctate foci of remote blood degradation byproducts most notably within the superior RIGHT cerebellar hemisphere and within the LEFT periatrial region. Mass Lesion/ Mass Effect: No evidence of an intracranial mass or extra-axial fluid collection. No significant mass effect. Faint area of enhancement present within LEFT aspect of the wen may reflect either a capillary telangiectasia or a subacute infarct. Chronic Change: Extensive, confluent increased T2 and FLAIR signal is present in the supratentorial white matter which is nonspecific but likely represents extensive chronic microvascular ischemia. 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 Small remote lacunar infarct within the RIGHT caudate head. Remote infarcts bilateral cerebellar hemispheres. Parenchyma: There is moderate generalized parenchymal volume loss. The brain parenchyma is otherwise within normal limits of signal intensity and morphology. Ventricles: Ventriculomegaly corresponds to the degree of parenchymal volume loss. Skull Base: Hypothalamic and pituitary region are grossly normal. Craniocervical junction is normal. No significant marrow replacement process. Vasculature: Major intracranial arterial structures, and dural venous sinuses show typical flow void, suggesting patency by spin echo criteria. Other: Minimal retained fluid mastoid air cells bilaterally. Postoperative changes involve the globes bilaterally. MRA neck/carotid arteries: Carotid Stenosis: Right Common: No significant stenosis. Right Internal Carotid Plaque: Moderate Right Internal Carotid Stenosis (% by NASCET Criteria): 30-40 Left Common: No significant stenosis. Left Internal Carotid Plaque: Moderate 50 Left Internal Carotid Stenosis (% by NASCET Criteria): Cervical Vertebral Arteries: RIGHT vertebral artery is patent. Nonvisualization of the LEFT vertebral artery may reflect slow flow or retrograde flow or alternatively occlusion. INTRACRANIAL MRA: The petrous, cavernous, and supraclinoid internal carotid arteries are patent. Anterior cerebral arteries and middle cerebral arteries are patent. Intracranial vertebral arteries, basilar artery, and posterior cerebral arteries are patent. No vessel cutoffs or aneurysms are identified. Mild ectasia of the RIGHT ICA terminus. Flow into the LEFT vertebral artery may be retrograde. IMPRESSION IMPRESSION: No acute intracranial process. 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 Patent intracranial circulation. Flight Information Expediter: [facility] Transcribe Date/Time: Jun 04 2024 10:48A Dictated by : BRITTANIE MURCIA MD This examination was interpreted and the report reviewed and electronically signed by: BRITTANIE MURCIA MD on Jun 04 2024 11:12AM [facility] MR Lumbar spine WO and W con trast Alisa 06-04-2024 IMPRESSION: Degenerative changes at multiple levels most severe at L3-L4 as itemized above. Anatomic Lumbar Variant: None. L4-5 is considered the level of the iliac crest and assume there are 5 lumbar-type vertebrae. Flight Information Expediter: [facility] Transcribe Date/Time: Jun 04 2024 11:13A Dictated by : BRITTANIE MURCIA MD This examination was interpreted and the report reviewed and electronically signed by: BRITTANIE MURCIA MD on Jun 04 2024 11:17AM [facility] DIVISION OF RADIOLOGY * * *Final Report* * * DATE OF EXAM: Jun 04 2024 10:35AM [facility] 0304 - MRI LUMBAR SPINE WO/W IVCON / PROCEDURE REASON: Low back pain, unspecified back pain laterality, unspecified chronicity, unspeci * * * * Physician Interpretation * * * * EXAMINATION: MRI LUMBAR SPINE WO/W IVCON CLINICAL HISTORY: Low back pain, unspecified back pain laterality, unspecified chronicity, unspecified whether sciatica present TECHNIQUE: Routine lumbosacral spine MR protocol without and with intravenous gadolinium. Contrast: 9 mL Elucirem IV MQ: [id number] COMPARISON: None. RESULT: Counting reference: Lumbosacral junction. For the purposes of this report, L4-5 is considered the level of the iliac crest and assume there are 5 lumbar-type vertebrae. Anatomic variant: None. Localizer images: Noncontributory. Alignment: Grade 1 anterolisthesis of L5 on S1. Mild curvature lumbar spine, concave to the RIGHT. Bone marrow signal/fracture: No evidence of pathologic marrow infiltration. No evidence of prior fracture. No abnormal enhancement. Pars defects bilaterally L5. Posterior elements otherwise are intact. Minimal type I endplate change at L5-S1. Conus: The conus is within normal limits of signal intensity and morphology. Paraspinal soft tissues: Paraspinal soft tissues are within normal limits. Mild multilevel degenerative changes lower thoracic spine. Severe LEFT foraminal stenosis. T11-T12 and on the RIGHT at T12-L1. L1-L2: Minimal bulging disk present without significant central canal or neural foraminal stenosis. L2-L3: Bulging disc with central disc extrusion results in moderate canal stenosis. Severe RIGHT and mild LEFT neural foraminal narrowing. L3-L4: Bulging disk, facet, and ligamentous hypertrophy results in severe central canal narrowing and severe RIGHT and moderate LEFT neural foraminal narrowing. L4-L5: Bulging disk, facet, and ligamentous hypertrophy results in mild central canal narrowing and severe neural foraminal narrowing. L5-S1: Bulging disc with a RIGHT central disc extrusion results in narrowing of the RIGHT subarticular zone with overall moderate canal stenosis. Severe bilateral neural foraminal narrowing. LEFT foraminal stenosis also the basis of foraminal disc protrusion. Sacrum and iliac wings: The visualized sacrum and iliac wings are within normal limits. DIVISION OF RADIOLOGY Provider, [facility] - 06/04/2024 * * *Final Report* * * DATE OF EXAM: Jun 04 2024 10:35AM [facility] 0304 - MRI LUMBAR SPINE WO/W IVCON / PROCEDURE REASON: Low back pain, unspecified back pain laterality, unspecified chronicity, unspeci * * * * Physician Interpretation * * * * EXAMINATION: MRI LUMBAR SPINE WO/W IVCON CLINICAL HISTORY: Low back pain, unspecified back pain laterality, unspecified chronicity, unspecified whether sciatica present TECHNIQUE: Routine lumbosacral spine MR protocol without and with intravenous gadolinium. Contrast: 9 mL Elucirem IV MQ: [id number] COMPARISON: None. RESULT: Counting reference: Lumbosacral junction. For the purposes of this report, L4-5 is considered the level of the iliac crest and assume there are 5 lumbar-type vertebrae. Anatomic variant: None. Localizer images: Noncontributory. Alignment: Grade 1 anterolisthesis of L5 on S1. Mild curvature lumbar spine, concave to the RIGHT. Bone marrow signal/fracture: No evidence of pathologic marrow infiltration. No evidence of prior fracture. No abnormal enhancement. Pars defects bilaterally L5. Posterior elements otherwise are intact. Minimal type I endplate change at L5-S1. Conus: The conus is within normal limits of signal intensity and morphology. Paraspinal soft tissues: Paraspinal soft tissues are within normal limits. Mild multilevel degenerative changes lower thoracic spine. Severe LEFT foraminal stenosis. T11-T12 and on the RIGHT at T12-L1. L1-L2: Minimal bulging disk present without significant central canal or neural foraminal stenosis. L2-L3: Bulging disc with central disc extrusion results in moderate canal stenosis. Severe RIGHT and mild LEFT neural foraminal narrowing. L3-L4: Bulging disk, facet, and ligamentous hypertrophy results in severe central canal narrowing and severe RIGHT and moderate LEFT neural foraminal narrowing. L4-L5: Bulging disk, facet, and ligamentous hypertrophy results in mild central canal narrowing and severe neural foraminal narrowing. L5-S1: Bulging disc with a RIGHT central disc extrusion results in narrowing of the RIGHT subarticular zone with overall moderate canal stenosis. Severe bilateral neural foraminal narrowing. LEFT foraminal stenosis also the basis of foraminal disc protrusion. Sacrum and iliac wings: The visualized sacrum and iliac wings are within normal limits. IMPRESSION IMPRESSION: Degenerative changes at multiple levels most severe at L3-L4 as itemized above. Anatomic Lumbar Variant: None. L4-5 is considered the level of the iliac crest and assume there are 5 lumbar-type vertebrae. Flight Information Expediter: [facility] Transcribe Date/Time: Jun 04 2024 11:13A Dictated by : BRITTANIE MURCIA MD This examination was interpreted and the report reviewed and electronically signed by: BRITTANIE MURCIA MD on Jun 04 2024 11:17AM EST [facility] Radiology Study observation (narrative) [facility] MR Lumbar spine WO and W con trast IVOrdered By: Ccf Provider on 06-04-2024 [facility] MRA BRAIN WO IVCONon 025 MRA BRAIN WO IVCON * * *Final Report* * * DATE OF EXAM: Jun 04 2024 10:35AM [facility] 0272 - MRA BRAIN WO IVCON / PROCEDURE REASON: Other symptoms and signs involving the nervous system * * * * Physician Interpretation * * * * EXAMINATION: MRI BRAIN WO/W IVCON, MRA BRAIN WO IVCON, MRA CAROTID WO IVCON HISTORY: Other symptoms and signs involving the nervous system TECHNIQUE: Routine MRI brain protocol without and with contrast including diffusion images. Intracranial 3D [id number] MRA with post-processing performed at the modality and 2D multiplanar and 3D maximum intensity projections were created, reviewed and archived. MQ: MRAB_3 Contrast: 9 mL Elucirem IV COMPARISON: None. RESULT: BRAIN: Acute Change: No acute infarct. Hemorrhage: Few punctate foci of remote blood degradation byproducts most notably within the superior RIGHT cerebellar hemisphere and within the LEFT periatrial region. Mass Lesion/ Mass Effect: No evidence of an intracranial mass or extra-axial fluid collection. No significant mass effect. Faint area of enhancement present within LEFT aspect of the wen may reflect either a capillary telangiectasia or a subacute infarct. Chronic Change: Extensive, confluent increased T2 and FLAIR signal is present in the supratentorial white matter which is nonspecific but likely represents extensive chronic microvascular ischemia. 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 Small remote lacunar infarct within the RIGHT caudate head. Remote infarcts bilateral cerebellar hemispheres. Parenchyma: There is moderate generalized parenchymal volume loss. The brain parenchyma is otherwise within normal limits of signal intensity and morphology. Ventricles: Ventriculomegaly corresponds to the degree of parenchymal volume loss. Skull Base: Hypothalamic and pituitary region are grossly normal. Craniocervical junction is normal. No significant marrow replacement process. Vasculature: Major intracranial arterial structures, and dural venous sinuses show typical flow void, suggesting patency by spin echo criteria. Other: Minimal retained fluid mastoid air cells bilaterally. Postoperative changes involve the globes bilaterally. MRA neck/carotid arteries: Carotid Stenosis: Right Common: No significant stenosis. Right Internal Carotid Plaque: Moderate Right Internal Carotid Stenosis (% by NASCET Criteria): 30-40 Left Common: No significant stenosis. Left Internal Carotid Plaque: Moderate 50 Left Internal Carotid Stenosis (% by NASCET Criteria): Cervical Vertebral Arteries: RIGHT vertebral artery is patent. Nonvisualization of the LEFT vertebral artery may reflect slow flow or retrograde flow or alternatively occlusion. INTRACRANIAL MRA: The petrous, cavernous, and supraclinoid internal carotid arteries are patent. Anterior cerebral arteries and middle cerebral arteries are patent. Intracranial vertebral arteries, basilar artery, and posterior cerebral arteries are patent. No vessel cutoffs or aneurysms are identified. Mild ectasia of the RIGHT ICA terminus. Flow into the LEFT vertebral artery may be retrograde. IMPRESSION: No acute intracranial process. 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 Patent intracranial circulation. Flight Information Expediter: [employer] Transcribe Date/Time: Jun 04 2024 10:48A Dictated by : BRITTANIE MURCIA MD This examination was interpreted and the report reviewed and electronically signed by: BRITTANIE MURCIA MD on Jun 04 2024 11:12AM EST [id number] Normal [facility] MRA CAROTID WO IVCONon 06-04 MRA CAROTID WO IVCON * * *Final Report* * * DATE OF EXAM: Jun 04 2024 10:35AM [facility] 0275 - MRA CAROTID WO IVCON / PROCEDURE REASON: Other symptoms and signs involving the nervous system * * * * Physician Interpretation * * * * EXAMINATION: MRI BRAIN WO/W IVCON, MRA BRAIN WO IVCON, MRA CAROTID WO IVCON HISTORY: Other symptoms and signs involving the nervous system TECHNIQUE: Routine MRI brain protocol without and with contrast including diffusion images. Intracranial 3D [id number]-[id number] MRA with post-processing performed at the modality and 2D multiplanar and 3D maximum intensity projections were created, reviewed and archived. MQ: MRAB_3 Contrast: 9 mL Elucirem IV COMPARISON: None. RESULT: BRAIN: Acute Change: No acute infarct. Hemorrhage: Few punctate foci of remote blood degradation byproducts most notably within the superior RIGHT cerebellar hemisphere and within the LEFT periatrial region. Mass Lesion/ Mass Effect: No evidence of an intracranial mass or extra-axial fluid collection. No significant mass effect. Faint area of enhancement present within LEFT aspect of the wen may reflect either a capillary telangiectasia or a subacute infarct. Chronic Change: Extensive, confluent increased T2 and FLAIR signal is present in the supratentorial white matter which is nonspecific but likely represents extensive chronic microvascular ischemia. 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 Small remote lacunar infarct within the RIGHT caudate head. Remote infarcts bilateral cerebellar hemispheres. Parenchyma: There is moderate generalized parenchymal volume loss. The brain parenchyma is otherwise within normal limits of signal intensity and morphology. Ventricles: Ventriculomegaly corresponds to the degree of parenchymal volume loss. Skull Base: Hypothalamic and pituitary region are grossly normal. Craniocervical junction is normal. No significant marrow replacement process. Vasculature: Major intracranial arterial structures, and dural venous sinuses show typical flow void, suggesting patency by spin echo criteria. Other: Minimal retained fluid mastoid air cells bilaterally. Postoperative changes involve the globes bilaterally. MRA neck/carotid arteries: Carotid Stenosis: Right Common: No significant stenosis. Right Internal Carotid Plaque: Moderate Right Internal Carotid Stenosis (% by NASCET Criteria): 30-40 Left Common: No significant stenosis. Left Internal Carotid Plaque: Moderate 50 Left Internal Carotid Stenosis (% by NASCET Criteria): Cervical Vertebral Arteries: RIGHT vertebral artery is patent. Nonvisualization of the LEFT vertebral artery may reflect slow flow or retrograde flow or alternatively occlusion. INTRACRANIAL MRA: The petrous, cavernous, and supraclinoid internal carotid arteries are patent. Anterior cerebral arteries and middle cerebral arteries are patent. Intracranial vertebral arteries, basilar artery, and posterior cerebral arteries are patent. No vessel cutoffs or aneurysms are identified. Mild ectasia of the RIGHT ICA terminus. Flow into the LEFT vertebral artery may be retrograde. IMPRESSION: No acute intracranial process. 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 Patent intracranial circulation. Flight Information Expediter[facility] Transcribe Date/Time: Jun 04 2024 10:48A Dictated by : BRITTANIE MURCIA MD This examination was interpreted and the report reviewed and electronically signed by: BRITTANIE MURCIA MD on Jun 04 2024 11:12AM EST [id number] Normal [facility] MRA Head vessels WO contrast on 06-04-2024 * * *Final Report* * * DATE OF EXAM: Jun 04 2024 10:35AM [facility] 0272 - MRA BRAIN WO IVCON / PROCEDURE REASON: Other symptoms and signs involving the nervous system * * * * Physician Interpretation * * * * EXAMINATION: MRI BRAIN WO/W IVCON, MRA BRAIN WO IVCON, MRA CAROTID WO IVCON HISTORY: Other symptoms and signs involving the nervous system TECHNIQUE: Routine MRI brain protocol without and with contrast including diffusion images. Intracranial 3D [id number] MRA with post-processing performed at the modality and 2D multiplanar and 3D maximum intensity projections were created, reviewed and archived. MQ: MRAB_3 Contrast: 9 mL Elucirem IV COMPARISON: None. RESULT: BRAIN: Acute Change: No acute infarct. Hemorrhage: Few punctate foci of remote blood degradation byproducts most notably within the superior RIGHT cerebellar hemisphere and within the LEFT periatrial region. Mass Lesion/ Mass Effect: No evidence of an intracranial mass or extra-axial fluid collection. No significant mass effect. Faint area of enhancement present within LEFT aspect of the wen may reflect either a capillary telangiectasia or a subacute infarct. Chronic Change: Extensive, confluent increased T2 and FLAIR signal is present in the supratentorial white matter which is nonspecific but likely represents extensive chronic microvascular ischemia. 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 Small remote lacunar infarct within the RIGHT caudate head. Remote infarcts bilateral cerebellar hemispheres. Parenchyma: There is moderate generalized parenchymal volume loss. The brain parenchyma is otherwise within normal limits of signal intensity and morphology. Ventricles: Ventriculomegaly corresponds to the degree of parenchymal volume loss. Skull Base: Hypothalamic and pituitary region are grossly normal. Craniocervical junction is normal. No significant marrow replacement process. Vasculature: Major intracranial arterial structures, and dural venous sinuses show typical flow void, suggesting patency by spin echo criteria. Other: Minimal retained fluid mastoid air cells bilaterally. Postoperative changes involve the globes bilaterally. MRA neck/carotid arteries: Carotid Stenosis: Right Common: No significant stenosis. Right Internal Carotid Plaque: Moderate Right Internal Carotid Stenosis (% by NASCET Criteria): 30-40 Left Common: No significant stenosis. Left Internal Carotid Plaque: Moderate 50 Left Internal Carotid Stenosis (% by NASCET Criteria): Cervical Vertebral Arteries: RIGHT vertebral artery is patent. Nonvisualization of the LEFT vertebral artery may reflect slow flow or retrograde flow or alternatively occlusion. INTRACRANIAL MRA: The petrous, cavernous, and supraclinoid internal carotid arteries are patent. Anterior cerebral arteries and middle cerebral arteries are patent. Intracranial vertebral arteries, basilar artery, and posterior cerebral arteries are patent. No vessel cutoffs or aneurysms are identified. Mild ectasia of the RIGHT ICA terminus. Flow into the LEFT vertebral artery may be retrograde. DIVISION OF RADIOLOGY Provider, [facility] - 06/04/2024 * * *Final Report* * * DATE OF EXAM: Jun 04 2024 10:35AM [facility] 0272 - MRA BRAIN WO IVCON / PROCEDURE REASON: Other symptoms and signs involving the nervous system * * * * Physician Interpretation * * * * EXAMINATION: MRI BRAIN WO/W IVCON, MRA BRAIN WO IVCON, MRA CAROTID WO IVCON HISTORY: Other symptoms and signs involving the nervous system TECHNIQUE: Routine MRI brain protocol without and with contrast including diffusion images. Intracranial 3D [id number]-[id number] MRA with post-processing performed at the modality and 2D multiplanar and 3D maximum intensity projections were created, reviewed and archived. MQ: MRAB_3 Contrast: 9 mL Elucirem IV COMPARISON: None. RESULT: BRAIN: Acute Change: No acute infarct. Hemorrhage: Few punctate foci of remote blood degradation byproducts most notably within the superior RIGHT cerebellar hemisphere and within the LEFT periatrial region. Mass Lesion/ Mass Effect: No evidence of an intracranial mass or extra-axial fluid collection. No significant mass effect. Faint area of enhancement present within LEFT aspect of the wen may reflect either a capillary telangiectasia or a subacute infarct. Chronic Change: Extensive, confluent increased T2 and FLAIR signal is present in the supratentorial white matter which is nonspecific but likely represents extensive chronic microvascular ischemia. 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 Small remote lacunar infarct within the RIGHT caudate head. Remote infarcts bilateral cerebellar hemispheres. Parenchyma: There is moderate generalized parenchymal volume loss. The brain parenchyma is otherwise within normal limits of signal intensity and morphology. Ventricles: Ventriculomegaly corresponds to the degree of parenchymal volume loss. Skull Base: Hypothalamic and pituitary region are grossly normal. Craniocervical junction is normal. No significant marrow replacement process. Vasculature: Major intracranial arterial structures, and dural venous sinuses show typical flow void, suggesting patency by spin echo criteria. Other: Minimal retained fluid mastoid air cells bilaterally. Postoperative changes involve the globes bilaterally. MRA neck/carotid arteries: Carotid Stenosis: Right Common: No significant stenosis. Right Internal Carotid Plaque: Moderate Right Internal Carotid Stenosis (% by NASCET Criteria): 30-40 Left Common: No significant stenosis. Left Internal Carotid Plaque: Moderate 50 Left Internal Carotid Stenosis (% by NASCET Criteria): Cervical Vertebral Arteries: RIGHT vertebral artery is patent. Nonvisualization of the LEFT vertebral artery may reflect slow flow or retrograde flow or alternatively occlusion. INTRACRANIAL MRA: The petrous, cavernous, and supraclinoid internal carotid arteries are patent. Anterior cerebral arteries and middle cerebral arteries are patent. Intracranial vertebral arteries, basilar artery, and posterior cerebral arteries are patent. No vessel cutoffs or aneurysms are identified. Mild ectasia of the RIGHT ICA terminus. Flow into the LEFT vertebral artery may be retrograde. IMPRESSION IMPRESSION: No acute intracranial process. 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 Patent intracranial circulation. Flight Information Expediter: [employer] Transcribe Date/Time: Jun 04 2024 10:48A Dictated by : BRITTANIE MURCIA MD This examination was interpreted and the report reviewed and electronically signed by: BRITTANIE MURCIA MD on Jun 04 2024 11:12AM EST [facility] MRA Neck vessels WO contrast on 06-04-2024 * * *Final Report* * * DATE OF EXAM: Jun 04 2024 10:35AM [facility] 0275 - MRA CAROTID WO IVCON / PROCEDURE REASON: Other symptoms and signs involving the nervous system * * * * Physician Interpretation * * * * EXAMINATION: MRI BRAIN WO/W IVCON, MRA BRAIN WO IVCON, MRA CAROTID WO IVCON HISTORY: Other symptoms and signs involving the nervous system TECHNIQUE: Routine MRI brain protocol without and with contrast including diffusion images. Intracranial 3D ygrx-ma-cffcul MRA with post-processing performed at the modality and 2D multiplanar and 3D maximum intensity projections were created, reviewed and archived. MQ: MRAB_3 Contrast: 9 mL Elucirem IV COMPARISON: None. RESULT: BRAIN: Acute Change: No acute infarct. Hemorrhage: Few punctate foci of remote blood degradation byproducts most notably within the superior RIGHT cerebellar hemisphere and within the LEFT periatrial region. Mass Lesion/ Mass Effect: No evidence of an intracranial mass or extra-axial fluid collection. No significant mass effect. Faint area of enhancement present within LEFT aspect of the wen may reflect either a capillary telangiectasia or a subacute infarct. Chronic Change: Extensive, confluent increased T2 and FLAIR signal is present in the supratentorial white matter which is nonspecific but likely represents extensive chronic microvascular ischemia. 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 Small remote lacunar infarct within the RIGHT caudate head. Remote infarcts bilateral cerebellar hemispheres. Parenchyma: There is moderate generalized parenchymal volume loss. The brain parenchyma is otherwise within normal limits of signal intensity and morphology. Ventricles: Ventriculomegaly corresponds to the degree of parenchymal volume loss. Skull Base: Hypothalamic and pituitary region are grossly normal. Craniocervical junction is normal. No significant marrow replacement process. Vasculature: Major intracranial arterial structures, and dural venous sinuses show typical flow void, suggesting patency by spin echo criteria. Other: Minimal retained fluid mastoid air cells bilaterally. Postoperative changes involve the globes bilaterally. MRA neck/carotid arteries: Carotid Stenosis: Right Common: No significant stenosis. Right Internal Carotid Plaque: Moderate Right Internal Carotid Stenosis (% by NASCET Criteria): 30-40 Left Common: No significant stenosis. Left Internal Carotid Plaque: Moderate 50 Left Internal Carotid Stenosis (% by NASCET Criteria): Cervical Vertebral Arteries: RIGHT vertebral artery is patent. Nonvisualization of the LEFT vertebral artery may reflect slow flow or retrograde flow or alternatively occlusion. INTRACRANIAL MRA: The petrous, cavernous, and supraclinoid internal carotid arteries are patent. Anterior cerebral arteries and middle cerebral arteries are patent. Intracranial vertebral arteries, basilar artery, and posterior cerebral arteries are patent. No vessel cutoffs or aneurysms are identified. Mild ectasia of the RIGHT ICA terminus. Flow into the LEFT vertebral artery may be retrograde. DIVISION OF RADIOLOGY Provider, [facility] - 06/04/2024 * * *Final Report* * * DATE OF EXAM: Jun 04 2024 10:35AM [facility] 0275 - MRA CAROTID WO IVCON / PROCEDURE REASON: Other symptoms and signs involving the nervous system * * * * Physician Interpretation * * * * EXAMINATION: MRI BRAIN WO/W IVCON, MRA BRAIN WO IVCON, MRA CAROTID WO IVCON HISTORY: Other symptoms and signs involving the nervous system TECHNIQUE: Routine MRI brain protocol without and with contrast including diffusion images. Intracranial 3D csga-[id number] MRA with post-processing performed at the modality and 2D multiplanar and 3D maximum intensity projections were created, reviewed and archived. MQ: MRAB_3 Contrast: 9 mL Elucirem IV COMPARISON: None. RESULT: BRAIN: Acute Change: No acute infarct. Hemorrhage: Few punctate foci of remote blood degradation byproducts most notably within the superior RIGHT cerebellar hemisphere and within the LEFT periatrial region. Mass Lesion/ Mass Effect: No evidence of an intracranial mass or extra-axial fluid collection. No significant mass effect. Faint area of enhancement present within LEFT aspect of the wen may reflect either a capillary telangiectasia or a subacute infarct. Chronic Change: Extensive, confluent increased T2 and FLAIR signal is present in the supratentorial white matter which is nonspecific but likely represents extensive chronic microvascular ischemia. 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 Small remote lacunar infarct within the RIGHT caudate head. Remote infarcts bilateral cerebellar hemispheres. Parenchyma: There is moderate generalized parenchymal volume loss. The brain parenchyma is otherwise within normal limits of signal intensity and morphology. Ventricles: Ventriculomegaly corresponds to the degree of parenchymal volume loss. Skull Base: Hypothalamic and pituitary region are grossly normal. Craniocervical junction is normal. No significant marrow replacement process. Vasculature: Major intracranial arterial structures, and dural venous sinuses show typical flow void, suggesting patency by spin echo criteria. Other: Minimal retained fluid mastoid air cells bilaterally. Postoperative changes involve the globes bilaterally. MRA neck/carotid arteries: Carotid Stenosis: Right Common: No significant stenosis. Right Internal Carotid Plaque: Moderate Right Internal Carotid Stenosis (% by NASCET Criteria): 30-40 Left Common: No significant stenosis. Left Internal Carotid Plaque: Moderate 50 Left Internal Carotid Stenosis (% by NASCET Criteria): Cervical Vertebral Arteries: RIGHT vertebral artery is patent. Nonvisualization of the LEFT vertebral artery may reflect slow flow or retrograde flow or alternatively occlusion. INTRACRANIAL MRA: The petrous, cavernous, and supraclinoid internal carotid arteries are patent. Anterior cerebral arteries and middle cerebral arteries are patent. Intracranial vertebral arteries, basilar artery, and posterior cerebral arteries are patent. No vessel cutoffs or aneurysms are identified. Mild ectasia of the RIGHT ICA terminus. Flow into the LEFT vertebral artery may be retrograde. IMPRESSION IMPRESSION: No acute intracranial process. 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 Patent intracranial circulation. Flight Information Expediter: [employer] Transcribe Date/Time: Jun 04 2024 10:48A Dictated by : BRITTANIE MURCIA MD This examination was interpreted and the report reviewed and electronically signed by: BRITTANIE MURCIA MD on Jun 04 2024 11:12AM [facility] MRI BRAIN WO/W IVCONon 06-04 MRI BRAIN WO/W IVCON * * *Final Report* * * DATE OF EXAM: Jun 04 2024 10:35AM [facility] 0295 - MRI BRAIN WO/W IVCON / PROCEDURE REASON: Other symptoms and signs involving the nervous system * * * * Physician Interpretation * * * * EXAMINATION: MRI BRAIN WO/W IVCON, MRA BRAIN WO IVCON, MRA CAROTID WO IVCON HISTORY: Other symptoms and signs involving the nervous system TECHNIQUE: Routine MRI brain protocol without and with contrast including diffusion images. Intracranial 3D [id number]-mf-gofbct MRA with post-processing performed at the modality and 2D multiplanar and 3D maximum intensity projections were created, reviewed and archived. MQ: MRAB_3 Contrast: 9 mL Elucirem IV COMPARISON: None. RESULT: BRAIN: Acute Change: No acute infarct. Hemorrhage: Few punctate foci of remote blood degradation byproducts most notably within the superior RIGHT cerebellar hemisphere and within the LEFT periatrial region. Mass Lesion/ Mass Effect: No evidence of an intracranial mass or extra-axial fluid collection. No significant mass effect. Faint area of enhancement present within LEFT aspect of the wen may reflect either a capillary telangiectasia or a subacute infarct. Chronic Change: Extensive, confluent increased T2 and FLAIR signal is present in the supratentorial white matter which is nonspecific but likely represents extensive chronic microvascular ischemia. 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 Small remote lacunar infarct within the RIGHT caudate head. Remote infarcts bilateral cerebellar hemispheres. Parenchyma: There is moderate generalized parenchymal volume loss. The brain parenchyma is otherwise within normal limits of signal intensity and morphology. Ventricles: Ventriculomegaly corresponds to the degree of parenchymal volume loss. Skull Base: Hypothalamic and pituitary region are grossly normal. Craniocervical junction is normal. No significant marrow replacement process. Vasculature: Major intracranial arterial structures, and dural venous sinuses show typical flow void, suggesting patency by spin echo criteria. Other: Minimal retained fluid mastoid air cells bilaterally. Postoperative changes involve the globes bilaterally. MRA neck/carotid arteries: Carotid Stenosis: Right Common: No significant stenosis. Right Internal Carotid Plaque: Moderate Right Internal Carotid Stenosis (% by NASCET Criteria): 30-40 Left Common: No significant stenosis. Left Internal Carotid Plaque: Moderate 50 Left Internal Carotid Stenosis (% by NASCET Criteria): Cervical Vertebral Arteries: RIGHT vertebral artery is patent. Nonvisualization of the LEFT vertebral artery may reflect slow flow or retrograde flow or alternatively occlusion. INTRACRANIAL MRA: The petrous, cavernous, and supraclinoid internal carotid arteries are patent. Anterior cerebral arteries and middle cerebral arteries are patent. Intracranial vertebral arteries, basilar artery, and posterior cerebral arteries are patent. No vessel cutoffs or aneurysms are identified. Mild ectasia of the RIGHT ICA terminus. Flow into the LEFT vertebral artery may be retrograde. IMPRESSION: No acute intracranial process. 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 Patent intracranial circulation. Flight Information Expediter: BLESSING Transcribe Date/Time: Jun 04 2024 10:48A Dictated by : BRITTANIE MURCIA MD This examination was interpreted and the report reviewed and electronically signed by: BRITTANIE MURCIA MD on Jun 04 2024 11:12AM EST [id number] Normal [facility] MRI LUMBAR SPINE WO/W IVCONo n 06-04-2024 MRI LUMBAR SPINE WO/W IVCON * * *Final Report* * * DATE OF EXAM: Jun 04 2024 10:35AM [facility] 0304 - MRI LUMBAR SPINE WO/W IVCON / PROCEDURE REASON: Low back pain, unspecified back pain laterality, unspecified chronicity, unspeci * * * * Physician Interpretation * * * * EXAMINATION: MRI LUMBAR SPINE WO/W IVCON CLINICAL HISTORY: Low back pain, unspecified back pain laterality, unspecified chronicity, unspecified whether sciatica present TECHNIQUE: Routine lumbosacral spine MR protocol without and with intravenous gadolinium. Contrast: 9 mL Elucirem IV MQ: [id number] COMPARISON: None. RESULT: Counting reference: Lumbosacral junction. For the purposes of this report, L4-5 is considered the level of the iliac crest and assume there are 5 lumbar-type vertebrae. Anatomic variant: None. Localizer images: Noncontributory. Alignment: Grade 1 anterolisthesis of L5 on S1. Mild curvature lumbar spine, concave to the RIGHT. Bone marrow signal/fracture: No evidence of pathologic marrow infiltration. No evidence of prior fracture. No abnormal enhancement. Pars defects bilaterally L5. Posterior elements otherwise are intact. Minimal type I endplate change at L5-S1. Conus: The conus is within normal limits of signal intensity and morphology. Paraspinal soft tissues: Paraspinal soft tissues are within normal limits. Mild multilevel degenerative changes lower thoracic spine. Severe LEFT foraminal stenosis. T11-T12 and on the RIGHT at T12-L1. L1-L2: Minimal bulging disk present without significant central canal or neural foraminal stenosis. L2-L3: Bulging disc with central disc extrusion results in moderate canal stenosis. Severe RIGHT and mild LEFT neural foraminal narrowing. L3-L4: Bulging disk, facet, and ligamentous hypertrophy results in severe central canal narrowing and severe RIGHT and moderate LEFT neural foraminal narrowing. L4-L5: Bulging disk, facet, and ligamentous hypertrophy results in mild central canal narrowing and severe neural foraminal narrowing. L5-S1: Bulging disc with a RIGHT central disc extrusion results in narrowing of the RIGHT subarticular zone with overall moderate canal stenosis. Severe bilateral neural foraminal narrowing. LEFT foraminal stenosis also the basis of foraminal disc protrusion. Sacrum and iliac wings: The visualized sacrum and iliac wings are within normal limits. IMPRESSION: Degenerative changes at multiple levels most severe at L3-L4 as itemized above. Anatomic Lumbar Variant: None. L4-5 is considered the level of the iliac crest and assume there are 5 lumbar-type vertebrae. Flight Information Expediter: BLESSING Transcribe Date/Time: Jun 04 2024 11:13A Dictated by : BRITTANIE MURCIA MD This examination was interpreted and the report reviewed and electronically signed by: BRITTANIE MURCIA MD on Jun 04 2024 11:17AM EST [id number] Normal [facility] No Panel Informationon 06-04 IMPRESSION: No acute intracranial process. 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 Patent intracranial circulation. Flight Information Expediter: BLESSING Transcribe Date/Time: Jun 04 2024 10:48A Dictated by : BRITTANIE MURCIA MD This examination was interpreted and the report reviewed and electronically signed by: BRITTANIE MURCIA MD on Jun 04 2024 11:12AM EST DIVISION OF RADIOLOGY Radiology Study observation (narrative) [facility] No Panel InformationOrdered By: Ccf Provider on 06-04-2024 [facility] CBC W Auto Differential pane l (Bld)on 05-28-2024 Basophils (Bld) [#/Vol] 0.05 10*3/uL Normal <0.11 [facility] Comment on above: Order Comment: Speci men Type: BLOOD SPECIMEN Ordering Facility: [facility] Address: [address] [place] [address] Performed By: #### 4 537-7 #### [facility] CLIA [id number] [address] [place] [address] [place] Basophils/100 WBC (Bld) 0.3 % Normal [facility] Comment on above: Order Comment: Speci men Type: BLOOD SPECIMEN Ordering Facility: [facility] Address: [address] [place] [address] Performed By: #### 4 537-7 #### [facility] CLIA [id number] [address] [place] [address] [place] Differential cell count method Nom (Bld) Auto Normal [facility] Comment on above: Order Comment: Speci men Type: BLOOD SPECIMEN Ordering Facility: [facility] Address: [address] [place] [address] Performed By: #### 4 537-7 #### [facility] CLIA [id number] [address] [place] [address] [place] Eosinophils (Bld) [#/Vol] 0.06 10*3/uL Normal <0.46 [facility] Comment on above: Order Comment: Speci men Type: BLOOD SPECIMEN Ordering Facility: [facility] Address: [address] [place] [address] Performed By: #### 4 537-7 #### [facility] CLIA [id number] [address] [address] [place] Eosinophils/100 WBC (Bld) 0.4 % Normal [facility] Comment on above: Order Comment: Speci men Type: BLOOD SPECIMEN Ordering Facility: [facility] Address: [address] [place] [address] Performed By: #### 4 537-7 #### [facility] CLIA [id number] [address] [place] [address] [place] Erythrocyte distribution width (RBC) [Ratio] 12.9 % Normal 11.5-15.0 [facility] Comment on above: Order Comment: Speci men Type: BLOOD SPECIMEN Ordering Facility: [facility] Address: [address] [place] [address] Performed By: #### 4 537-7 #### [facility] CLIA [id number] [address] [place] [address] [place] Hematocrit (Bld) [Volume fraction] 40.9 % Normal 39.0-51.0 [facility] Comment on above: Order Comment: Speci men Type: BLOOD SPECIMEN Ordering Facility: [facility] Address: [address] [place] [address] Performed By: #### 4 537-7 #### [facility] CLIA [id number] [address] [place] [address] [place] Hemoglobin (Bld) [Mass/Vol] 13.7 g/dL Normal 13.0-17.0 [facility] Comment on above: Order Comment: Speci men Type: BLOOD SPECIMEN Ordering Facility: [facility] Address: [address] [place] [address] Performed By: #### 4 537-7 #### [facility] CLIA [id number] [address] [place] [address] [place] Immature granulocytes (Bld) [#/Vol] 0.11 10*3/uL High <0.10 [facility] Comment on above: Order Comment: Speci men Type: BLOOD SPECIMEN Ordering Facility: [facility] Address: [address] [place] [address] Performed By: #### 4 537-7 #### [facility] CLIA [id number] [address] [place] [address] [place] Immature granulocytes/100 WBC (Bld) 0.7 % Normal [facility] Comment on above: Order Comment: Speci men Type: BLOOD SPECIMEN Ordering Facility: [facility] Address: [address] [place] [address] Performed By: #### 4 537-7 #### [facility] CLIA [id number] [address] [place] [address] [place] Lymphocytes (Bld) [#/Vol] 0.86 10*3/uL Low 1.00-4.00 [facility] Comment on above: Order Comment: Speci men Type: BLOOD SPECIMEN Ordering Facility: [facility] Address: [address] [place] [address] Performed By: #### 4 537-7 #### [facility] CLIA [id number] [address] [place] [address] [place] Lymphocytes/100 WBC (Bld) 5.7 % Normal [facility] Comment on above: Order Comment: Speci men Type: BLOOD SPECIMEN Ordering Facility: [facility] Address: [address] [place] [address] Performed By: #### 4 537-7 #### [facility] CLIA [id number] [address] [place] [address] [place] MCH (RBC) [Entitic mass] 31.1 pg Normal 26.0-34.0 [facility] Comment on above: Order Comment: Speci men Type: BLOOD SPECIMEN Ordering Facility: [facility] Address: [address] [place] [address] Performed By: #### 4 537-7 #### [facility] CLIA [id number] [address] [place] [address] [place] MCHC (RBC) [Mass/Vol] 33.5 g/dL Normal 30.5-36.0 [facility] Comment on above: Order Comment: Speci men Type: BLOOD SPECIMEN Ordering Facility: [facility] Address: [address] [place] [address] Performed By: #### 4 537-7 #### [facility] CLIA [id number] [address] [place] [address] [place] MCV (RBC) [Entitic vol] 93.0 fL Normal 80.0-100.0 [facility] Comment on above: Order Comment: Speci men Type: BLOOD SPECIMEN Ordering Facility: [facility] Address: [address] [place] [address] Performed By: #### 4 537-7 #### [facility] CLIA [id number] [address] [place] [address] [place] Monocytes (Bld) [#/Vol] 1.09 10*3/uL High <0.87 [facility] Comment on above: Order Comment: Speci men Type: BLOOD SPECIMEN Ordering Facility: [facility] Address: [address] [place] [address] Performed By: #### 4 537-7 #### [facility] CLIA [id number] [address] [place] [address] [place] Monocytes/100 WBC (Bld) 7.2 % Normal [facility] Comment on above: Order Comment: Speci men Type: BLOOD SPECIMEN Ordering Facility: [facility] Address: [address] [place] [address] Performed By: #### 4 537-7 #### [facility] CLIA [id number] [address] [place] [address] [place] Neutrophils (Bld) [#/Vol] 12.88 10*3/uL High 1.45-7.50 [facility] Comment on above: Order Comment: Speci men Type: BLOOD SPECIMEN Ordering Facility: [facility] Address: [address] [place] [address] Performed By: #### 4 537-7 #### [facility] CLIA [id number] [address] [place] [address] [place] Neutrophils/100 WBC (Bld) 85.7 % Normal [facility] Comment on above: Order Comment: Speci men Type: BLOOD SPECIMEN Ordering Facility: [facility] Address: [address] [place] [address] Performed By: #### 4 537-7 #### [facility] CLIA [id number] [address] [place] [address] [place] Nucleated RBC (Bld) [#/Vol] 10*3/uL Normal <0.01 [facility] Comment on above: Order Comment: Speci men Type: BLOOD SPECIMEN Ordering Facility: [facility] Address: [address] [place] [address] Performed By: #### 4 537-7 #### [facility] CLIA [id number] [address] [place] [address] [place] Nucleated RBC/100 WBC (Bld) [Ratio] 0.0 /100 WBC Normal [facility] Comment on above: Order Comment: Speci men Type: BLOOD SPECIMEN Ordering Facility: [facility] Address: [address] [place] [address] Performed By: #### 4 537-7 #### [facility] CLIA [id number] [address] [place] [address] [place] Platelet mean volume (Bld) [Entitic vol] 10.1 fL Normal 9.0-12.7 [facility] Comment on above: Order Comment: Speci men Type: BLOOD SPECIMEN Ordering Facility: [facility] Address: [address] [place] [address] Performed By: #### 4 537-7 #### [facility] CLIA [id number] [address] [place] [address] [place] Platelets (Bld) [#/Vol] 329 10*3/uL Normal 150-400 [facility] Comment on above: Order Comment: Speci men Type: BLOOD SPECIMEN Ordering Facility: [facility] Address: [address] [place] [address] Performed By: #### 4 537-7 #### [facility] CLIA [id number] [address] [place] [address] [place] RBC (Bld) [#/Vol] 4.40 10*6/uL Normal 4.20-6.00 [facility] Comment on above: Order Comment: Speci men Type: BLOOD SPECIMEN Ordering Facility: [facility] Address: [address] [place] [address] Performed By: #### 4 537-7 #### [facility] CLIA [id number] [address] [place] [address] [place] WBC (Bld) [#/Vol] 15.05 10*3/uL High 3.70-11.00 [facility] Comment on above: Order Comment: Speci men Type: BLOOD SPECIMEN Ordering Facility: [facility] Address: [address] [place] [address] Performed By: #### 4 537-7 #### [facility] CLIA [id number] [address] [address] [place] CNOVSPon 05-28-2024 CNOVSP Visit (SP) Office ([place]) ----- ASHALEX MATHEWS ([id number]) 1935 M Date Time Provider Department 05/28/24 12:40 PM EVERETT ALDRICH During your visit today, we recorded the following information about you: Temperature Pulse Blood pressure Weight 98.1 degrees 110/minute 111/73 87.1 kg Everett Aldrich MD 05/28/2024 1:07 PM Signed (Elements copied from my note dated March 05, 2024, have been reviewed and updated where appropriate, and all reflect current assessment and medical decision making from today's encounter, May 28, 2024) HISTORY OF PRESENT ILLNESS: Alex Greycarla is a 87 year old male diagnosed with prostate cancer in 1998, status post radical prostatectomy for [place] score 6 = 3+3. He had been on intermittent ADT for biochemical failure, elevated PSA, in the past. Component Latest Ref Rng AND Units 03/04/2019 03/06/2019 07/05/2019 09/23/2020 PSA 0.00 - 2.59 ng/mL 29.01 (H) 33.08 (H) 0.25 0.92 He had not had LHRH injection until recently when his PSA was over 210 by his primary care physician because of generalized aches and pain. Subsequent CT scan of the abdomen pelvis and bone scan recently showed findings suggestive of metastatic deposit along the anterior aspect of the right seventh rib in the pedicle of the left side of T12. There is left hemisacrum activity as well. Degenerative changes noted in both knees and both shoulder joints. His bone density test within the last year showed evidence of osteopenia. Started back on androgen deprivation therapy with Eligard in September 2021, due to PSA 246. He had no hot flashes, increased fatigue or muscle weakness. He denied difficulty with urination. He had general arthritis pain in both knee and shoulder along with generalized aching. No change in weight or appetite. CT scans negative, bone scan in 2021 suggested bone mets Previous therapy: 1) Apalutamide. Started September 2021. Stopped in June 2022 due to generalized weakness and malaise. Current treatment: 1) Lupron every 3 months. 2) Zometa every 6 months Interim history: Doing well. Left knee osteoarthritis. CLINICAL IMPRESSION: Prostate cancer biochemical relapse, bone scan in 2021 suggested bone mets (report is listed in scanned documents labelled bone density). Doing well on GnRH agonist alone RECOMMENDATION/PLAN: 1. Continue lupron q 3 months, will add back apalutamide if PSA continues to climb. 2. Zometa every 3 months 3. Follow PSA Written and verbal health teaching given to patient, patient verbalizes understanding and agrees with treatment plan. PAST MEDICAL HISTORY Diagnosis Date Bone metastases 10/08/2021 HTN (hypertension) Malignant neoplasm 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) Prostate cancer (HCC) SCC (squamous cell carcinoma), face PAST SURGICAL HISTORY Procedure Laterality Date PROSTATECTOMY;RADICAL RETROPUBIC 1996 FAMILY HISTORY Problem Relation Age of Onset Breast Cancer Mother Cancer Father Social History Tobacco Use Smoking status: Never Smokeless tobacco: Never Vaping Use Vaping status: Never Used Substance Use Topics Alcohol use: No Drug use: Never ALLERGIES: ALLERGIES Allergen Reactions Lisinopril Cough CURRENT OUTPATIENT MEDICATIONS: ergocalciferol 50,000 unit capsule (VITAMIN D2, DRISDOL) Take 1 capsule by mouth one time a week. oxybutynin XL (DITROPAN XL) 5 mg 24 hr tablet Take 1 tablet by mouth once daily. OTC PRODUCT Take 1,500 mg by mouth two times a day. Lipozene meloxicam (MOBIC) 7.5 mg tablet Take 7.5 mg by mouth once daily. magnesium hydroxide (MAGNESIA ORAL) Take 250 mg by mouth once daily as needed (constipation). POTASSIUM-99 ORAL Take 1 tablet by mouth once daily. hydroCHLOROthiazide (HYDRODIURIL, ESIDRIX) 12.5 mg capsule Take 12.5 mg by mouth once daily. losartan (COZAAR) 25 mg tablet Take 25 mg by mouth once daily. (Patient taking differently: Take 25 mg by mouth every other day.) metoprolol tartrate, short acting, (LOPRESSOR) 50 mg tablet Take 50 mg by mouth twice daily. atorvastatin 40 mg tablet Take 20 mg by mouth once daily. aspirin, enteric coated 81 mg EC tablet Take 81 mg by mouth once daily. GLUCOSAM/MSM/CHONDR/VIT C/HYAL (GLUCOSAMINE-CHONDROITIN- MSM ORAL) Take 1 tablet by mouth two times a day. nitroglycerin sublingual 0.3 mg SL tablet Dissolve 0.3 mg under the tongue every 5 minutes as needed. Calcium Carbonate-Vitamin D3 600mg (1,000mg) -1,000 unit ORAL Tab Take 1 tablet by mouth once daily. ubidecarenone (ULTRA COQ10 ORAL) Take by mouth once daily. (Patient not taking: Reported on 05/28/2024) apalutamide (ERLEADA) 60 mg tablet Take 3 tablets (180mg) by mouth once daily. Fish Oil-Shields-3 Fatty Acids 500-300 mg ORAL Cap Take by mouth. (Patient not taking: Reported on 05/28/2024) REVIEW OF SYSTEMS: GENERAL: No fever, night sweats, weight loss or malaise. All other reviewed an (more content not included)... Normal [facility] Comprehensive metabolic 2000 panelon 05-28-2024 Albumin [Mass/Vol] 4.1 g/dL Normal 3.9-4.9 [facility] Comment on above: Order Comment: Speci men Type: BLOOD SPECIMEN Ordering Facility: [facility] Address: [address] [place], [place] [id number] Performed By: #### 4 537-7 #### [facility] CLIA [id number] [address] [place], [place] [id number] [place] ALP [Catalytic activity/Vol] 89 U/L Normal 38-113 [facility] Comment on above: Order Comment: Speci men Type: BLOOD SPECIMEN Ordering Facility: [facility] Address: [address] [place] [address] Performed By: #### 4 537-7 #### [facility] CLIA [id number] [address] [place] [address] [place] ALT [Catalytic activity/Vol] 9 U/L Low 10-54 [facility] Comment on above: Order Comment: Speci men Type: BLOOD SPECIMEN Ordering Facility: [facility] Address: [address] [place] [address] Performed By: #### 4 537-7 #### [facility] CLIA [id number] [address] [place] [address] [place] Anion gap [Moles/Vol] 11 mmol/L Normal 8-15 [facility] Comment on above: Order Comment: Speci men Type: BLOOD SPECIMEN Ordering Facility: [facility] Address: [address] [place] [address] Performed By: #### 4 537-7 #### [facility] CLIA [id number] [address] [place], [place] [address] [place] AST [Catalytic activity/Vol] 17 U/L Normal 14-40 [facility] Comment on above: Order Comment: Speci men Type: BLOOD SPECIMEN Ordering Facility: [facility] Address: [address] [place] [address] Performed By: #### 4 537-7 #### [facility] CLIA [id number] [address] [place], [place] [address] [place] Bilirubin [Mass/Vol] 0.8 mg/dL Normal 0.2-1.3 [facility] Comment on above: Order Comment: Speci men Type: BLOOD SPECIMEN Ordering Facility: [facility] Address: [address] [place] [address] Performed By: #### 4 537-7 #### [facility] CLIA [id number] [address] [place] [address] [place] Calcium [Mass/Vol] 9.4 mg/dL Normal 8.5-10.2 [facility] Comment on above: Order Comment: Speci men Type: BLOOD SPECIMEN Ordering Facility: [facility] Address: [address] [place] [address] Performed By: #### 4 537-7 #### [facility] CLIA [id number] [address] [place] [address] [place] Chloride [Moles/Vol] 101 mmol/L Normal 98-107 [facility] Comment on above: Order Comment: Speci men Type: BLOOD SPECIMEN Ordering Facility: [facility] Address: [address] [place] [address] Performed By: #### 4 537-7 #### [facility] CLIA [id number] [address] [place], [place] [address] [place] CO2 [Moles/Vol] 26 mmol/L Normal 22-30 [facility] Comment on above: Order Comment: Speci men Type: BLOOD SPECIMEN Ordering Facility: [facility] Address: [address] [place], [place] [address] Performed By: #### 4 537-7 #### [facility] CLIA [id number] [address] [place], [place] [address] [place] Creatinine [Mass/Vol] 1.02 mg/dL Normal 0.73-1.22 [facility] Comment on above: Order Comment: Speci men Type: BLOOD SPECIMEN Ordering Facility: [facility] Address: [address] [place] [address] Performed By: #### 4 537-7 #### [facility] CLIA [id number] [address] [place] [address] [place] Creatinine and Glomerular filtration rate.predicted panel (S/P/Bld) 71 mL/min/1.73m??? Normal >=60 [facility] Comment on above: Order Comment: Edgard men Type: BLOOD SPECIMEN Ordering Facility: [facility] Address: [address] [place] [address] Result Comment: Isabel mated Glomerular Filtration Rate (eGFR) is calculated using the 2020 CKD-EPI creatinine equation. This equation utilizes serum creatinine, sex, and age as parameters. The creatinine assay has traceable calibration to isotope dilution-mass spectrometry. Refer to KDIGO guidelines for clinical interpretation. In patients with unstable renal function, e.g. those with acute kidney injury, the eGFR may not accurately reflect actual GFR. Performed By: #### 4 537-7 #### [facility] CLIA [id number] [address] [place] [address] [place] Glucose [Mass/Vol] 132 mg/dL High 74-99 [facility] Comment on above: Order Comment: Edgard nina Type: BLOOD SPECIMEN Ordering Facility: [facility] Address: [address] [place] [address] Result Comment: The [place] [employer] (ADA) provides guidance for cutoff values for fasting glucose and random glucose. The ADA defines fasting as no caloric intake for at least 8 hours. Fasting plasma glucose results between 100 to 125 mg/dL indicate increased risk for diabetes (prediabetes). Fasting plasma glucose results greater than or equal to 126 mg/dL meet the criteria for diagnosis of diabetes. In the absence of unequivocal hyperglycemia, results should be confirmed by repeat testing. In a patient with classic symptoms of hyperglycemia or hyperglycemic crisis, random plasma glucose results greater than or equal to 200 mg/dL meet the criteria for diagnosis of diabetes. Reference: Standards of Medical Care in Diabetes 2016, [place] [employer]. Diabetes Care. 2016.39(Suppl 1). Performed By: #### 4 537-7 #### [facility] CLIA [id number] [address] [place] [address] [place] Potassium [Moles/Vol] 3.4 mmol/L Low 3.7-5.1 [facility] Comment on above: Order Comment: Speci men Type: BLOOD SPECIMEN Ordering Facility: [facility] Address: [address] [place] [address] Performed By: #### 4 537-7 #### [facility] CLIA [id number] [address] [place] [address] [place] Protein [Mass/Vol] 6.8 g/dL Normal 6.3-8.0 [facility] Comment on above: Order Comment: Speci men Type: BLOOD SPECIMEN Ordering Facility: [facility] Address: [address] [place] [address] Performed By: #### 4 537-7 #### [facility] CLIA [id number] [address] [place] [address] [place] Sodium [Moles/Vol] 138 mmol/L Normal 136-144 [facility] Comment on above: Order Comment: Speci men Type: BLOOD SPECIMEN Ordering Facility: [facility] Address: [address] [place] [address] Performed By: #### 4 537-7 #### [facility] CLIA [id number] [address] [place] [address] [place] Urea nitrogen [Mass/Vol] 25 mg/dL High 9-24 [facility] Comment on above: Order Comment: Speci men Type: BLOOD SPECIMEN Ordering Facility: [facility] Address: [address] [place] [address] Performed By: #### 4 537-7 #### [facility] CLIA [id number] [address] [place], [place] [id number] [place] PSA SerPl-mCncon 05-28-2024 Prostate specific Ag [Mass/Vol] 0.14 ng/mL Normal <2.60 [facility] Comment on above: Order Comment: Speci men Type: BLOOD SPECIMEN Ordering Facility: [facility] Address: [address] [place] [address] Result Comment: Tota l PSA test methodology used is the Electrochemiluminescence Immunoassay by [employer]. Total PSA values by differing methodologies cannot be interchanged. Performed By: #### 4 537-7 #### [facility] CLIA [id number] [address] [place] [address] [place] [address] [place] CNCOon 05-24-2024 CNCO Letter Text Normal [facility] CNOVon 05-24-2024 CNOV Office Visit (NEMJULIO ) ----- ALEX CARPENTER ([id number]) 1935 M Date Time Provider Department 05/24/24 10:40 AM KAUSHAL STOCKTON JR During your visit today, we recorded the following information about you: Pulse Blood pressure Weight 65/minute 142/86 88.8 kg Guzman Sánchez LPN 05/24/2024 11:43 AM Signed Kaushal Stockton Jr., MD 05/24/2024 11:43 AM Signed NEW PATIENT (CONSULT) HISTORY AND PHYSICAL EXAM PRIMARY CARE PHYSICIAN: Otto Subramanian MD REASON FOR CONSULT: See below. REFERRING PHYSICIAN: Everett Aldrich MD CHIEF COMPLAINT: Falling down. Consultation requested by Everett Aldrich MD for an opinion regarding chief complaint of Patient presents with: New Patient: C/o loss of balance, weakness and my final recommendations will be communicated back to the requesting physician by way of shared medical record or letter via US mail. HISTORY OF PRESENT ILLNESS: Alex Carpenter is a 88 year old male, BMI 30.67 kg/m2 with a PMH significant for that below including prostate ca with bone mets. There is no recent neuro imaging. 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 Pt reports symptoms of balance difficulties started about 1-2 years ago. Pt states he thinks it was due to starting a chemo medication or at least balance issues got worse - med was stopped but still did not improve. Pt states first of all I got knee problems and they are bone on bone. However does not feel the knees give out on him. When asked to describe a fall - last was Monday - went into door of bathroom, turned around and fell. States more difficulties when actually turning. No back pain. Poor urinary control for the past year - when asked why he cannot tell me if related directly to prostate. Overall limited historian. States at least 10 falls to the ground. Denies dizziness, vertigo or lightheadedness. No numbness of extremities. Hemoglobin A1C (%) Date Value 07/12/2010 6.1 No results found for: TSH No results found for: B12 No tremors or other PD symptoms endorsed. Memory decline per pt but mild. States can feel feet when touching the ground with them. adds that pt is tired quite a bit. Also state that after falls he appears different. There however is no loc or AMS. Appeared depressed. REVIEW OF SYSTEMS GENERAL:No weight loss, malaise or fevers. HEENT:Negative for frequent or significant headaches, No changes in hearing or vision, no nose bleeds or other nasal problems NECK:Negative for lumps, goiter, pain and significant neck swelling RESPIRATORY: Negative for cough, wheezing or shortness of breath. CARDIOVASCULAR: Negative for chest pain, leg swelling or palpitations. GASTROINTESTINAL: Negative for abdominal discomfort, blood in stools or black stools or change in bowel habits GENITOURINARY: No history of dysuria, frequency or incontinence MUSCULOSKELETAL: Negative for joint pain or swelling, back pain or muscle pain. NEUROLOGIC:See HPI. SKIN:Negative for lesions, rash, and itching. LAB/IMAGING: Reviewed and include: Dr. Subramanian - labs completed OSH. Will request to review so as to not repeat. WBC (k/uL) Date Value 03/05/2024 14.66 (H) RBC (m/uL) Date Value 03/05/2024 4.33 Hemoglobin (g/dL) Date Value 03/05/2024 13.7 Hematocrit (%) Date Value 03/05/2024 39.8 MCV (fL) Date Value 03/05/2024 91.9 MCH (pg) Date Value 03/05/2024 31.6 MCHC (g/dL) Date Value 03/05/2024 34.4 RDW-CV (%) Date Value 03/05/2024 13.1 Platelet Count (k/uL) Date Value 03/05/2024 305 MPV (fL) Date Value 03/05/2024 10.2 Glucose (mg/dL) Date Value 03/05/2024 169 (H) BUN (mg/dL) Date Value 03/05/2024 27 (H) Creatinine (mg/dL) Date Value 03/05/2024 0.94 Sodium (mmol/L) Date Value 03/05/2024 142 Potassium (mmol/L) Date Value 03/05/2024 3.3 (L) Chloride (mmol/L) Date Value 03/05/2024 105 CO2 (mmol/L) Date Value 03/05/2024 25 Protein, Total (g/dL) Date Value 03/05/2024 6.4 Albumin (g/dL) Date Value 03/05/2024 4.1 Calcium, Total (mg/dL) Date Value 03/05/2024 9.3 Alkaline Phosphatase (U/L) Date Value 03/05/2024 115 (H) Bilirubin, Total (mg/dL) Date Value 03/05/2024 0.5 AST (U/L) Date Value 03/05/2024 15 ALT (U/L) Date Value 03/05/2024 13 MEDICATIONS: ergocalciferol 50,000 unit capsule (VITAMIN D2, DRISDOL) Take 1 capsule by mouth one time a week. oxybutynin XL (DITROPAN XL) 5 mg 24 hr tablet Take 1 tablet by mouth once daily. OTC PRODUCT Take 1,500 mg by mouth two times a day. Lipozene (Patient not taking: Reported on 01/23/2024) meloxicam (MOBIC) 7.5 mg tablet Take 7.5 mg by mouth once daily. magnesium hydroxide (MAGNESIA ORAL) Take 250 mg by mouth once daily as needed (constipation). POTASSIUM-99 ORAL Ta (more content not included)... Normal [facility] CNPNon 05-24-2024 CNPN Telephone (NEMJULIO) ----- DAIALEX ([id number]) 1935 M Date Time Provider Department 05/24/24 KAUSHAL STOCKTON JR During your visit today, we recorded the following information about you: Renetta Edouard LPN 05/24/2024 11:55 AM Signed Kaushal Stockton Jr., MD P [facility] Nurse Please request recent labs including B12, sed rate, TSH, AZ, A1c, CMP from PCP office. Thank you. Guzman Sánchez LPN 05/24/2024 1:43 PM Signed Request sent Guzman Sánchez LPN May 24, 2024 1:42 PM Renetta Edouard LPN 05/29/2024 1:37 PM Signed Please see attached labs- Scan on 05/28/2024 3:29 PM by Provider, Car, HERNÁNC: Miscellaneous Lab ANTONELLA Ross William J Jr., MD 05/30/2024 9:14 AM Signed Ordering updated labs after review of those sent from Dr. Subramanian office looking for causes of symptoms. 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 [3602] Primary Visit Diagnosis:Neuropathy [G62.9] Order(s):THYROID STIMULATING HORMONE [SQTSH] Order #: [id number] FUTURE T4 FREE/FREE THYROXINE [SQFT4] Order #: [id number] FUTURE VITAMIN B12 [SQB12] Order #: [id number] FUTURE PROTEIN ELECTROPHORESIS SERUM W/INTERP [SQSEPG] Order #: [id number] FUTURE HEMOGLOBIN A1C [SOAJN0W] Order #: [id number] FUTURE SEDIMENTATION RATE, WESTERGREN [SQWSR] Order #: [id number] FUTURE AZ BY IFA WITH REFLEX [SQANAIFR] Order #: [id number] FUTURE Prescriptions as of 05/30/2024 - ergocalciferol 50,000 unit capsule (VITAMIN D2, DRISDOL) Take 1 capsule by mouth one time a week. - oxybutynin XL (DITROPAN XL) 5 mg 24 hr tablet Take 1 tablet by mouth once daily. - OTC PRODUCT Take 1,500 mg by mouth two times a day. Lipozene - meloxicam (MOBIC) 7.5 mg tablet Take 7.5 mg by mouth once daily. - magnesium hydroxide (MAGNESIA ORAL) Take 250 mg by mouth once daily as needed (constipation). - POTASSIUM-99 ORAL Take 1 tablet by mouth once daily. - ubidecarenone (ULTRA COQ10 ORAL) Take by mouth once daily. - apalutamide (ERLEADA) 60 mg tablet Take 3 tablets (180mg) by mouth once daily. - hydroCHLOROthiazide (HYDRODIURIL, ESIDRIX) 12.5 mg capsule Take 12.5 mg by mouth once daily. - losartan (COZAAR) 25 mg tablet Take 25 mg by mouth once daily. - metoprolol tartrate, short acting, (LOPRESSOR) 50 mg tablet Take 50 mg by mouth twice daily. - atorvastatin 40 mg tablet Take 20 mg by mouth once daily. - aspirin, enteric coated 81 mg EC tablet Take 81 mg by mouth once daily. - GLUCOSAM/MSM/CHONDR/VIT C/HYAL (GLUCOSAMINE-CHONDROITIN- MSM ORAL) Take 1 tablet by mouth two times a day. - nitroglycerin sublingual 0.3 mg SL tablet Dissolve 0.3 mg under the tongue every 5 minutes as needed. - Calcium Carbonate-Vitamin D3 600mg (1,000mg) -1,000 unit ORAL Tab Take 1 tablet by mouth once daily. - Fish Oil-Shields-3 Fatty Acids 500-300 mg ORAL Cap Take by mouth. 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 [place] [address] / REEVALUATION / MEDICARE RECERTIFICATION PHYSICAL THERAPY MR#: [id number] Acct: [id number] Name: ALEX CARPENTER Rep #: [id number] : 1935 88 From: Otto Shirley DPT, OCS, CSCS Referring Dr.: Dr. Otto Subramanian MD Status:REG RCR Insurance: [facility] SELF PAY INSURANCE Re-Evaluation Intro: Dr. Otto Subramanian MD, It has been my pleasure to treat ALEX CARPENTER over the last 9 visits for Balance evaluation due to unsteady gait and falls. Please see the progress note below for an update on the physical therapy plan of care! Subjective Subjective: Alex not sure he is improving. Doing some home exercises but not like I should not motivated. Fell one time the other day coming out a door and turning and just kept going. Was not using cane. uses walker at home sometimes, can't describe why he uses it at certain times but more frequently since he fell. Was doing better prior to fall. Now he worries again.Balance is better overall but worse confidence since the fall. Struggled to get up off the floor. Had to call son. Panchito have ablation L knee for the pain. No f/u with Dr. Subramanian. Objective Objective/Function: Passive posture in sitting leaning against back of chair even to do exercises. Using walker today, uses it some on at home. Ambulation with wh walker is slow with wide HENNY but mod I. Without aD is short steps and hesitant with poor motor control LE as he walks further. pt admittedly noncompliant with HEP and AD and with poor motivation. Thinks he can change that over next month willing to use wh walker and HEP daily since his fall has scared him and inability to gt off the floor. Plan Plan Plan: Pt has worsened since IE and admits to being lazy but feeling like he can change that. trenlloo8j/week for 4 weeks Please do the following... 1. Ensure verbally patient doing HEP daily at home and add to it as compliance improves. 2. Get more aggressive with strength in clinic including machines if safety will allow for termite treater LE strength in gym and postural strength AND floor trasnfr and more steps if knee tolerates it. Lots of gait walking for confidence and safeety adn progress to home walking (with wh walker). New goals(old appropriate) adn questionable prognosis) Balance/Gait/Functional tests Balance/Special Test Scores Functional Gait Assessment Score: 12 % Disability: 60.0000 CATSIB Score (Max score 120 seconds): 102 Lower Extremity Functional Score: 20 TUG Test Time Seconds: 13 Tug Test: <20 sec.=mostly independent 30 Second Chair Rise Test Seconds: 8 Goals Goals Goal 1:: Compliant with AD(cane) adn HEP for balance and strength to minimize future problems. Goal Time Frame: 4-6 Weeks Goal Progress: not progress, approp Goal 2:: 11 on 30 SSTS and 22 on FGA to minimize fallr isk Goal Time Frame: 4-6 Weeks Goal Progress: Not Progressing, approp Goal 3:: Pt feel 50% better in balance and mobility at home Goal Time Frame: 4-6 Weeks Goal Progress: Not Progressing, approp Goal 4:: Get up off floor with UE support adn min A. Goal Time Frame: 2-4 Weeks Anticipated Interventions Re-Evaluation Ending Re-evaluation ending: Please do not hesitate to contact me at [phone] by phone or if you have questions or concerns regarding this new plan of care! Sincerely, Otto Shirley, JABARIT, OCS, CSCS 05/23/24 1129 CC: Dr. Otto Subramanian MD EBG Signed For Medicare only, by signing this I certify the plan of care. ___ Physicians Signature Date Normal [facility] PT Communicationon 5 PT Communication [facility] [address] [place] [address] Fax REHABILITATION SERVICES PROGRESS NOTE MR#: [id number] Acct: [id number] Name: ALEX CARPENTER Rep #: [id number] : 1935 88 From: Otto Shirley DPT, DENISE, CSCS Referring Dr.: Dr. Otto Subramanian MD Status:REG RCR Insurance: [employer] [facility] SELF PAY INSURANCE PT Communication Note 04/22/[address] Otto Subramanian MD , Thank you for the referral of Alex to [facility] for balance testing. I have enclosed a copy of his results for your review. In summation: Th Modified CTSIB showed >2 SD deficits in eyes open on firm and eyes open foam surface. He did OK on foam for his age. Limits of stability test showed posterior weight shift is poor and excess time taken to find neutral COG always coming back anterior to the right spot. With these results in mind, I plan to see him 2x/week for 4 weeks to teach exercises to help rectify these deficits as well as overall general strength and progress him to a home program as safety allows. Please d not hesitate to contact me if there are questions. Sincerely, Otto Shirley DPT, DENISE, CSCS Contact Information 04/22/24 1042 S> Date Otto Shirley DPT, DENISE, CSCS Cosigner Signature (if applicable): Date CC: Dr. Otto Subramanian MD Signed For Medicare only, by signing this I certify the plan of care. ___ Physicians Signature Date Normal [facility] Inital Evaluation (1) - PTon 04-15-2024 Inital Evaluation (1) - PT [facility] Physical [facility] [address] [place] [address] / REHABILITATION SERVICES INITIAL EVALUATION MR#: [id number] Acct: [id number] Name: ALEX CARPENTER Rep #: [id number] : 1935 88 From: Otto Shirley DPT, OCS, CSCS Referring Dr.: Dr. Otto Subramanian MD Status: REG R CR Insurance: [facility] SELF PAY INSURANCE Patient's Visit Information Visit Information Visit Information: ALEX CARPENTER is a 88 year old M referred to Physical Therapy by Dr. Otto Subramanian MD with a diagnosis of Balance evaluation due to unsteady gait and falls. Date of Evaluation: 04/15/24 Physical Therapist: Otto Shirley DPT, DENISE, CSCS Visit Plan Frequency: 2x /Week Duration: 4-6 Weeks Plan: Biodex balance test in place of ordered neurocom, then 2x/week for 4 weeks for education and progression of ankle coordination and proprioception ex, blance weight shifting ex and general strength to HEP.Gait training with head turns IE: educated on need to use at least cane and consider wh walker when tired or uneven surfaces. Also flor for termite treater ex to mitigate risk. Also on course of PT. reviewed balance safety HO given to patient and results of today's testing. Likely will need weight shifting, head movement, general strength ex to HEP. Subjective Subjective: I get shots in my knees. Balance is still an issue, it gets better with therapy but I did not continue exercises. Fell 3 weeks ago turning too quickly standing and was not using cane. He uses cane mostly out and about. Fallen 8-10x in last year. Backpedals and falls. No spinning. No neuropathy that teofilo knows of. Lives with . On one story. No steps to get in but one little one which is not an issue. Cannot get up off floor and has to call someone. Spends day doing nothing , TV computer and reading. No regular exercises. Sleep is OK. Pain is not an issue but wakes up at [facility] with pain some times. Has electric massage chair which helps him sleep. narcotic helps him sleep now. Objective Objective: Walks with cane in R UE but tends to hold it more than use it until cued. Trasnfers with UE I chair and bed.Steps are challenging with rail and cane lacking FW weight shift and weakness and pain in knees. Knees lack full extension at end range. neuropathy appears in his gait pattern ladcking wt shift and strenth and coordination in ankles with reciprocal toe adn heel tap and heel to benavides test. Max tightness in HS at -+50 90/90 test and quads. reflexes 2/3 patella adn 1/3 achilles B Sensation to gross light touch in LE WNL B. strength hips 3 abd and ext adn 3+ flexion, knee flex/ext 4- and pain with extension B, ankles 4+ in ROM. Poor Fw weight shift noticed on step over, steps and exitting chair especially once fatigued. Balance/Special Test Scores Functional Gait Assessment Score: 20 % Disability: 33.3400 CATSIB Score (Max score 120 seconds): 102 Lower Extremity Functional Score: 39 TUG Test Time Seconds: 13 30 Second Chair Rise Test Seconds: 8 Goals Goal 1:: Compliant with AD(cane) adn HEP for balance and strength to minimize future problems. Goal Time Frame: 4-6 Weeks Goal 2:: 11 on 30 SSTS and 22 on FGA to minimize fallr isk Goal Time Frame: 4-6 Weeks Goal 3:: Pt feel 50% better in balance and mobility at home Goal Time Frame: 4-6 Weeks Rehabilitation Potential Physical Therapy Diagnosis: tightness, weakness and coordination/motor control deficits leading to falls. Rehabilitation Potential: Fair Anticipated Interventions Text: Thank you for the opportunity to evaluate your patient. For Medicare and Medicare HMO plans, please review the plan of care and approve it. It will need to be FAXED BACK to us at [phone] for Medicare purposes. For Medicare only, by signing this I certify the plan of care. Please let me know if there are questions or concerns regarding this plan of care. Physician Signature: Date: _ 04/15/24 1314 CC: Dr. Otto Subramanian MD EBG Signed Normal [facility] CBC W Auto Differential pane l (Bld)on 03-05-2024 Basophils (Bld) [#/Vol] 10*3/uL Normal <0.11 C [facility] Comment on above: Order Comment: Speci men Type: BLOOD SPECIMENOrdering Facility: [facility] Address: [address] [place] [address] Performed By: #### 5 7021-8 ####[facility] [id number] [place] [address] [place] Basophils/100 WBC (Bld) 0.1 % Normal C [facility] Comment on above: Order Comment: Speci men Type: BLOOD SPECIMENOrdering Facility: [facility] Address: [address] [place] [address] Performed By: #### 5 7021-8 ####[facility] [id number] [place] [address] [place] Differential cell count method Nom (Bld) Auto Normal [facility] Comment on above: Order Comment: Speci men Type: BLOOD SPECIMENOrdering Facility: [facility] Address: [address] [place] [address] Performed By: #### 5 7021-8 ####[facility] [id number] [place] [address] [place] Eosinophils (Bld) [#/Vol] 10*3/uL Normal <0.46 [facility] Comment on above: Order Comment: Speci men Type: BLOOD SPECIMENOrdering Facility: [facility] Address: [address] [place] [address] Performed By: #### 5 7021-8 ####[facility] [id number] [place] [address] [place] Eosinophils/100 WBC (Bld) 0.0 % Normal [facility] Comment on above: Order Comment: Speci men Type: BLOOD SPECIMENOrdering Facility: [facility] Address: [address] [place] [address] Performed By: #### 5 7021-8 ####[facility] [id number] [place] [address] [place] Erythrocyte distribution width (RBC) [Ratio] 13.1 % Normal 11.5-15.0 [facility] Comment on above: Order Comment: Speci men Type: BLOOD SPECIMENOrdering Facility: [facility] Address: [address] [place] [address] Performed By: #### 5 7021-8 ####[facility] [id number] [place] Hematocrit (Bld) [Volume fraction] 39.8 % Normal 39.0-51.0 [facility] Comment on above: Order Comment: Speci men Type: BLOOD SPECIMENOrdering Facility: [facility] Address: [address] [place] [address] Performed By: #### 5 7021-8 ####[facility] [id number] [place] [address] [place] Hemoglobin (Bld) [Mass/Vol] 13.7 g/dL Normal 13.0-17.0 [facility] Comment on above: Order Comment: Speci men Type: BLOOD SPECIMENOrdering Facility: [facility] Address: [address] [place] [address] Performed By: #### 5 7021-8 ####[facility] MILLTOWNCLIA [id number] [place] [address] [place] Immature granulocytes (Bld) [#/Vol] 0.23 10*3/uL High <0.10 [facility] Comment on above: Order Comment: Speci men Type: BLOOD SPECIMENOrdering Facility: [facility] Address: [address] [place] [address] Performed By: #### 5 7021-8 ####[facility] ADRIANWNCLIA [id number] [place] [address] [place] Immature granulocytes/100 WBC (Bld) 1.6 % Normal [facility] Comment on above: Order Comment: Speci men Type: BLOOD SPECIMENOrdering Facility: [facility] Address: [address] [place] [address] Performed By: #### 5 7021-8 ####[facility] SHEAWNCLIA [id number] [place] [address] [place] Lymphocytes (Bld) [#/Vol] 0.96 10*3/uL Low 1.00-4.00 [facility] Comment on above: Order Comment: Speci men Type: BLOOD SPECIMENOrdering Facility: [facility] Address: [address] [place] [address] Performed By: #### 5 7021-8 ####[facility] MILLROSALIAWNCLIA [id number] [place] [address] [place] Lymphocytes/100 WBC (Bld) 6.5 % Normal [facility] Comment on above: Order Comment: Speci men Type: BLOOD SPECIMENOrdering Facility: [facility] Address: [address] [place] [address] Performed By: #### 5 7021-8 ####[facility] MILLTOWNCLIA [id number] [place] [address] [place] MCH (RBC) [Entitic mass] 31.6 pg Normal 26.0-34.0 [facility] Comment on above: Order Comment: Speci men Type: BLOOD SPECIMENOrdering Facility: [facility] Address: [address] [place] [address] Performed By: #### 5 7021-8 ####[facility] [id number] [place] [address] [place] MCHC (RBC) [Mass/Vol] 34.4 g/dL Normal 30.5-36.0 [facility] Comment on above: Order Comment: Speci men Type: BLOOD SPECIMENOrdering Facility: [facility] Address: [address] [place] [address] Performed By: #### 5 7021-8 ####[facility] [id number] [place] [address] [place] MCV (RBC) [Entitic vol] 91.9 fL Normal 80.0-100.0 [facility] Comment on above: Order Comment: Speci men Type: BLOOD SPECIMENOrdering Facility: [facility] Address: [address] [place] [address] Performed By: #### 5 7021-8 ####[facility] [id number] [place] [address] [place] Monocytes (Bld) [#/Vol] 0.75 10*3/uL Normal <0.87 [facility] Comment on above: Order Comment: Speci men Type: BLOOD SPECIMENOrdering Facility: [facility] Address: [address] [place] [address] Performed By: #### 5 7021-8 ####[facility] [id number] [place] [address] [place] Monocytes/100 WBC (Bld) 5.1 % Normal C [facility] Comment on above: Order Comment: Speci men Type: BLOOD SPECIMENOrdering Facility: [facility] Address: [address] [place] [address] Performed By: #### 5 7021-8 ####[facility] [id number] [place] [address] [place] Neutrophils (Bld) [#/Vol] 12.70 10*3/uL High 1.45-7.50 [facility] Comment on above: Order Comment: Speci men Type: BLOOD SPECIMENOrdering Facility: [facility] Address: [address] [place] [address] Performed By: #### 5 7021-8 ####[facility] [id number] [place] [address] [place] Neutrophils/100 WBC (Bld) 86.7 % Normal [facility] Comment on above: Order Comment: Speci men Type: BLOOD SPECIMENOrdering Facility: [facility] Address: [address] [place] [address] Performed By: #### 5 7021-8 ####[facility] [id number] [place] [address] [place] Nucleated RBC (Bld) [#/Vol] 10*3/uL Normal <0.01 [facility] Comment on above: Order Comment: Speci men Type: BLOOD SPECIMENOrdering Facility: [facility] Address: [address] [place] [address] Performed By: #### 5 7021-8 ####[facility] [id number] [place] [address] [place] Nucleated RBC/100 WBC (Bld) [Ratio] 0.0 /100 WBC Normal [facility] Comment on above: Order Comment: Speci men Type: BLOOD SPECIMENOrdering Facility: [facility] Address: [address] [place] [address] Performed By: #### 5 7021-8 ####[facility] CATNCPACO [id number] [place] [address] [place] Platelet mean volume (Bld) [Entitic vol] 10.2 fL Normal 9.0-12.7 [facility] Comment on above: Order Comment: Speci men Type: BLOOD SPECIMENOrdering Facility: [facility] Address: [address] [place] [address] Performed By: #### 5 7021-8 ####[facility] [id number] [place] [address] [place] Platelets (Bld) [#/Vol] 305 10*3/uL Normal 150-400 [facility] Comment on above: Order Comment: Speci men Type: BLOOD SPECIMENOrdering Facility: [facility] Address: [address] [place] [address] Performed By: #### 5 7021-8 ####[facility] ERNCBIBIANAA [id number] [place] [address] [place] RBC (Bld) [#/Vol] 4.33 10*6/uL Normal 4.20-6.00 [facility] Comment on above: Order Comment: Speci men Type: BLOOD SPECIMENOrdering Facility: [facility] Address: [address] [place], [place] [address] Performed By: #### 5 7021-8 ####[facility] ERNCLIA [id number] [place] [address] [place] WBC (Bld) [#/Vol] 14.66 10*3/uL High 3.70-11.00 [facility] Comment on above: Order Comment: Speci men Type: BLOOD SPECIMENOrdering Facility: [facility] Address: [address] [place] [address] Performed By: #### 5 7021-8 ####[facility] CAROLIN VALDIVIAWNCPACO [id number] [address] [place] CNOVSPon 03-05-2024 CNOVSP Visit (SP) Office (HEMAWS) ----- ALEX CARPENTER ([id number]) 1935 M Date Time Provider Department 03/05/24 10:00 AM [facility] During your visit today, we recorded the following information about you: Temperature Pulse Blood pressure Weight 98.5 degrees 81/minute 129/81 91.9 kg Everett Aldrich MD 03/05/2024 1:45 PM Signed (Elements copied from my note dated September 19, 2023, have been reviewed and updated where appropriate, and all reflect current assessment and medical decision making from today's encounter, March 05, 2024) HISTORY OF PRESENT ILLNESS: Alex Carpenter is a 87 year old male diagnosed with prostate cancer in 1998, status post radical prostatectomy for Parish score 6 = 3+3. He had been on intermittent ADT for biochemical failure, elevated PSA, in the past. Component Latest Ref Rng AND Units 03/04/2019 03/06/2019 07/05/2019 09/23/2020 PSA 0.00 - 2.59 ng/mL 29.01 (H) 33.08 (H) 0.25 0.92 He had not had LHRH injection until recently when his PSA was over 210 by his primary care physician because of generalized aches and pain. Subsequent CT scan of the abdomen pelvis and bone scan recently showed findings suggestive of metastatic deposit along the anterior aspect of the right seventh rib in the pedicle of the left side of T12. There is left hemisacrum activity as well. Degenerative changes noted in both knees and both shoulder joints. His bone density test within the last year showed evidence of osteopenia. Started back on androgen deprivation therapy with Eligard in September 2021, due to PSA 246. He had no hot flashes, increased fatigue or muscle weakness. He denied difficulty with urination. He had general arthritis pain in both knee and shoulder along with generalized aching. No change in weight or appetite. CT scans negative, bone scan in 2021 suggested bone mets Previous therapy: 1) Apalutamide. Started September 2021. Stopped in June 2022 due to generalized weakness and malaise. Current treatment: 1) Lupron every 3 months. 2) Zometa every 6 months Interim history: Doing well. CLINICAL IMPRESSION: Prostate cancer biochemical relapse, bone scan in 2021 suggested bone mets (report is listed in scanned documents labelled bone density). Doing well on GnRH agonist alone RECOMMENDATION/PLAN: 1. Continue lupron q 3 months, will add back apalutamide if PSA continues to climb. 2. Zometa every 3 months 3. Follow PSA Written and verbal health teaching given to patient, patient verbalizes understanding and agrees with treatment plan. PAST MEDICAL HISTORY Diagnosis Date Bone metastases 10/08/2021 HTN (hypertension) Malignant neoplasm 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) Prostate cancer (HCC) SCC (squamous cell carcinoma), face PAST SURGICAL HISTORY Procedure Laterality Date PROSTATECTOMY;RADICAL RETROPUBIC 1996 FAMILY HISTORY Problem Relation Age of Onset Breast Cancer Mother Cancer Father Social History Tobacco Use Smoking status: Never Smokeless tobacco: Never Vaping Use Vaping status: Never Used Substance Use Topics Alcohol use: No Drug use: Never ALLERGIES: ALLERGIES Allergen Reactions Lisinopril Cough CURRENT OUTPATIENT MEDICATIONS: oxybutynin XL (DITROPAN XL) 5 mg 24 hr tablet Take 1 tablet by mouth once daily. meloxicam (MOBIC) 7.5 mg tablet Take 7.5 mg by mouth once daily. magnesium hydroxide (MAGNESIA ORAL) Take 250 mg by mouth once daily as needed (constipation). POTASSIUM-99 ORAL Take 1 tablet by mouth once daily. hydroCHLOROthiazide (HYDRODIURIL, ESIDRIX) 12.5 mg capsule Take 12.5 mg by mouth once daily. losartan (COZAAR) 25 mg tablet Take 25 mg by mouth once daily. metoprolol tartrate, short acting, (LOPRESSOR) 50 mg tablet Take 50 mg by mouth twice daily. atorvastatin 40 mg tablet Take 20 mg by mouth once daily. aspirin, enteric coated 81 mg EC tablet Take 81 mg by mouth once daily. GLUCOSAM/MSM/CHONDR/VIT C/HYAL (GLUCOSAMINE-CHONDROITIN- MSM ORAL) Take 1 tablet by mouth two times a day. nitroglycerin sublingual 0.3 mg SL tablet Dissolve 0.3 mg under the tongue every 5 minutes as needed. Calcium Carbonate-Vitamin D3 600mg (1,000mg) -1,000 unit ORAL Tab Take 1 tablet by mouth once daily. ergocalciferol 50,000 unit capsule (VITAMIN D2, DRISDOL) Take 1 capsule by mouth one time a week. OTC PRODUCT Take 1,500 mg by mouth two times a day. Lipozene (Patient not taking: Reported on 01/23/2024) ubidecarenone (ULTRA COQ10 ORAL) Take by mouth once daily. (Patient not taking: Reported on 01/23/2024) apalutamide (ERLEADA) 60 mg tablet Take 3 tablets (180mg) by mouth once daily. (Patient not taking: Reported on 07/11/2022) Fish Oil-Shields-3 Fatty Acids 500-300 mg ORAL Cap Take one(1) tablet daily. (Patient not taking: Reported on 03/05/2024) REVIEW OF SYSTEMS: GENERAL: No fever, night sweats, weight loss or malaise. All other rev (more content not included)... Normal [facility] Comprehensive metabolic 2000 panelon 03-05-2024 Albumin [Mass/Vol] 4.1 g/dL Normal 3.9-4.9 [facility] Comment on above: Order Comment: Speci men Type: BLOOD SPECIMENOrdering Facility: [facility] Address: [address] [place] [address] Performed By: #### 2 4323-8 ####[facility] [id number] [place] [address] [place] ALP [Catalytic activity/Vol] 115 U/L High 38-113 [facility] Comment on above: Order Comment: Speci men Type: BLOOD SPECIMENOrdering Facility: [facility] Address: [address] [place] [address] Performed By: #### 2 4323-8 ####[facility] [id number] [place] [address] [place] ALT [Catalytic activity/Vol] 13 U/L Normal 10-54 [facility] Comment on above: Order Comment: Speci men Type: BLOOD SPECIMENOrdering Facility: [facility] Address: [address] [place] [address] Performed By: #### 2 4323-8 ####[facility] MILLTOWNCLIA [id number] [place] [address] [place] Anion gap [Moles/Vol] 12 mmol/L Normal 8-15 [facility] Comment on above: Order Comment: Speci men Type: BLOOD SPECIMENOrdering Facility: [facility] Address: [address] [place] [address] Performed By: #### 2 4323-8 ####[facility] [id number] [place] [address] [place] AST [Catalytic activity/Vol] 15 U/L Normal 14-40 [facility] Comment on above: Order Comment: Speci men Type: BLOOD SPECIMENOrdering Facility: [facility] Address: [address] [place] [address] Performed By: #### 2 4323-8 ####[facility]ITAL[facility] [id number] [place] [address] [place] Bilirubin [Mass/Vol] 0.5 mg/dL Normal 0.2-1.3 [facility] Comment on above: Order Comment: Speci men Type: BLOOD SPECIMENOrdering Facility: [facility] Address: [address] [place] [address] Performed By: #### 2 4323-8 ####[facility] MILLWNCLIA [id number] [place] [address] [place] Calcium [Mass/Vol] 9.3 mg/dL Normal 8.5-10.2 [facility] Comment on above: Order Comment: Speci men Type: BLOOD SPECIMENOrdering Facility: [facility] Address: [address] [place] [address] Performed By: #### 2 4323-8 ####[facility] ADRIANAmariNCLIA [id number] [place] [address] [place] Chloride [Moles/Vol] 105 mmol/L Normal 98-107 [facility] Comment on above: Order Comment: Speci men Type: BLOOD SPECIMENOrdering Facility: [facility] Address: [address] [place] [address] Performed By: #### 2 4323-8 ####[facility] ERNCA [id number] [place] [address] [place] CO2 [Moles/Vol] 25 mmol/L Normal 22-30 [facility] Comment on above: Order Comment: Speci men Type: BLOOD SPECIMENOrdering Facility: [facility] Address: [address] [place] [address] Performed By: #### 2 4323-8 ####[facility] [id number] [place] [address] [place] Creatinine [Mass/Vol] 0.94 mg/dL Normal 0.73-1.22 [facility] Comment on above: Order Comment: Speci men Type: BLOOD SPECIMENOrdering Facility: [facility] Address: [address] [place] [address] Performed By: #### 2 4323-8 ####[facility] [id number] [place] [address] [place] Creatinine and Glomerular filtration rate.predicted panel (S/P/Bld) 78 mL/min/1.73m??? Normal >=60 [facility] Comment on above: Order Comment: Speci men Type: BLOOD SPECIMENOrdering Facility: [facility] Address: [address] [place] [address] Result Comment: Isabel mated Glomerular Filtration Rate (eGFR) is calculated using the 2020 CKD-EPI creatinine equation. This equation utilizes serum creatinine, sex, and age as parameters. The creatinine assay has traceable calibration to isotope dilution-mass spectrometry. Refer to KDIGO guidelines for clinical interpretation. In patients with unstable renal function, e.g. those with acute kidney injury, the eGFR may not accurately reflect actual GFR. Performed By: #### 2 4323-8 ####[facility] [id number] [place] [address] [place] Glucose [Mass/Vol] 169 mg/dL High 74-99 [facility] Comment on above: Order Comment: Edgard wood Type: BLOOD SPECIMENOrdering Facility: [facility] Address: [address] [place] [address] Result Comment: The [place] Diabetes Association (ADA) provides guidance for cutoff values for fasting glucose and random glucose. The ADA defines fasting as no caloric intake for at least 8 hours. Fasting plasma glucose results between 100 to 125 mg/dL indicate increased risk for diabetes (prediabetes). Fasting plasma glucose results greater than or equal to 126 mg/dL meet the criteria for diagnosis of diabetes. In the absence of unequivocal hyperglycemia, results should be confirmed by repeat testing. In a patient with classic symptoms of hyperglycemia or hyperglycemic crisis, random plasma glucose results greater than or equal to 200 mg/dL meet the criteria for diagnosis of diabetes. Reference: Standards of Medical Care in Diabetes 2016, [place] Diabetes Association. Diabetes Care. 2016.39(Suppl 1). Performed By: #### 2 4323-8 ####[facility] [id number] [place] [address] [place] Potassium [Moles/Vol] 3.3 mmol/L Low 3.7-5.1 [facility] Comment on above: Order Comment: Edgard wood Type: BLOOD SPECIMENOrdering Facility: [facility] Address: [address] [place] [address] Performed By: #### 2 4323-8 ####[facility] [id number] [place] [address] [place] Protein [Mass/Vol] 6.4 g/dL Normal 6.3-8.0 [facility] Comment on above: Order Comment: Speci men Type: BLOOD SPECIMENOrdering Facility: [facility] Address: [address] [place] [address] Performed By: #### 2 4323-8 ####[facility] [id number] [place] [address] [place] Sodium [Moles/Vol] 142 mmol/L Normal 136-144 [facility] Comment on above: Order Comment: Speci men Type: BLOOD SPECIMENOrdering Facility: [facility] Address: [address] [place] [address] Performed By: #### 2 4323-8 ####[facility] ERNCPACO [id number] [place] [address] [place] Urea nitrogen [Mass/Vol] 27 mg/dL High 9-24 [facility] Comment on above: Order Comment: Speci men Type: BLOOD SPECIMENOrdering Facility: [facility] Address: [address] [place] [address] Performed By: #### 2 4323-8 ####[facility] ERNCLI [id number] [place] [address] [place] PSA [facility] Prostate specific Ag [Mass/Vol] 0.15 ng/mL Normal <2.60 [facility] Comment on above: Order Comment: Speci men Type: BLOOD SPECIMEN Ordering Facility: [facility] Address: [address] [place] [address] Result Comment: Tota l PSA test methodology used is the Electrochemiluminescence Immunoassay by [employer]. Total PSA values by differing methodologies cannot be interchanged. Performed By: #### 4 537-7 #### [facility] CLIA [id number] [address] [place] [address] [place] Basic Metabolic Profile (BMP )on 01-24-2024 BUN/CRE 24.1 RATIO High 10-20 [facility] Comment on above: Performed By: #### L 500.2500, L100.0100, L501.5200, L501.3620, L501.9520 #### [facility] [address] [place], [address] CA,Total 8.8 mg/dL Normal 8.5-10.1 [facility] Comment on above: Performed By: #### L 500.2500, L100.0100, L501.5200, L501.3620, L501.9520 #### [facility] [address] [place], [address] Chloride [Moles/Vol] 109 mmol/L High 98-107 [facility] Comment on above: Performed By: #### L 500.2500, L100.0100, L501.5200, L501.3620, L501.9520 #### [facility] [address] [place], [address] CO2 [Moles/Vol] 27.0 mmol/L Normal 21.0-32.0 [facility] Comment on above: Performed By: #### L 500.2500, L100.0100, L501.5200, L501.3620, L501.9520 #### [facility] [address] [place], [address] Creatinine [Mass/Vol] 1.16 mg/dL Normal 0.70-1.30 [facility] Comment on above: Result Comment: The validity of the calculated GFR GFRAA in patients over 70 years has not been determined. Clinical correlation is essential. Performed By: #### L 500.2500, L100.0100, L501.5200, L501.3620, L501.9520 #### [facility] [address] [place], [address] ECRCL 49.01 ml/min Normal [facility] Comment on above: Performed By: #### L 500.2500, L100.0100, L501.5200, L501.3620, L501.9520 #### [facility] [address] [place], [address] EST GFR - AA 77 mL/min Normal >60 [facility] Comment on above: Result Comment: Afri can Swiss GFR Calc Performed By: #### L 500.2500, L100.0100, L501.5200, L501.3620, L501.9520 #### [facility] [address] [place], [address] GAP 6 Normal 5-15 [facility] Comment on above: Performed By: #### L 500.2500, L100.0100, L501.5200, L501.3620, L501.9520 #### [facility] [address] [place], [address] GFR/1.73 sq M.predicted among non-blacks MDRD (S/P/Bld) [Vol rate/Area] 63 mL/min/{1.73_m2} Normal >60 [facility] Comment on above: Result Comment: Non- GFR Calc Performed By: #### L 500.2500, L100.0100, L501.5200, L501.3620, L501.9520 #### [facility] [address] [place], [address] Glucose [Mass/Vol] 120 mg/dL High 74-106 [facility] Comment on above: Result Comment: Fast ing Glucose result from 100 to 125 mg/dL suggests IMPAIRED HOMEOSTASIS per A.D.A. criteria. Performed By: #### L 500.2500, L100.0100, L501.5200, L501.3620, L501.9520 #### [facility] [address] [place], [address] Potassium [Moles/Vol] 3.8 mmol/L Normal 3.5-5.1 [facility] Comment on above: Performed By: #### L 500.2500, L100.0100, L501.5200, L501.3620, L501.9520 #### [facility] [address] [place], [address] Sodium [Moles/Vol] 143 mmol/L Normal 136-145 [facility] Comment on above: Performed By: #### L 500.2500, L100.0100, L501.5200, L501.3620, L501.9520 #### [facility] [address] [place], [address] Urea nitrogen [Mass/Vol] 28 mg/dL High 7-18 [facility] Comment on above: Performed By: #### L 500.2500, L100.0100, L501.5200, L501.3620, L501.9520 #### [facility] [address] [place], [address] Brain/Head without Contrasto n 01-24-2024 Brain/Head without Contrast [facility] Imaging Services [address] [place] [address] Brain/Head without Contrast MR#: [id number] Acct: [id number] Name: ALEX CARPENTER Rep #: [id number] : 1935 M 88 From: Bora Magallon PCP: Dr. Otto Subramanian MD Status: [facility] Study: Brain/Head without Contrast Date of Exam: 09/10 Exam# [id number] Ordering Dr: Sabsa Nayak DO [id number] INDICATION: fall EXAMINATION: CT BRAIN - CT Head or Brain W/O Contrast Injection TECHNIQUE: Multiple axial images were obtained of the head without intravenous contrast. The protocol utilizes one or more of the following dose reduction techniques: automated exposure control, adjustment of mA and/or kV according to patient size,and/or use of iterative reconstruction technique. IV Contrast dosage and agent: None. RADIATION DOSAGE (If Supplied By Facility): CTDIvol = ( 44.99 ) mGy, DLP = ( 880.47 ) mGycm COMPARISON: FINDINGS: BRAIN PARENCHYMA: No intra- or extra-axial hemorrhage. No evidence of acute infarct. Chronic microvascular ischemic changes in the periventricular white matter. 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 Posterior fossa structures are unremarkable. CSF SPACES: Appropriate for age. No hydrocephalus. Basal cisterns are patent. CALVARIUM, SKULL BASE, PARANASAL SINUSES AND MASTOID AIR CELLS: Clear. No discrete lytic or blastic abnormalities. ORBITS: Both globes, extraocular muscles, optic nerves and retrobulbar fat appear unremarkable. ASPECTS Score for Acute Strokes: 10 CT/Brain/Head without Contrast IMPRESSION: Chronic microvascular ischemic changes in the periventricular white matter. 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 Electronically Signed: Bora Sadler MD at 6:21 EST Reading Location ID and State: [address] [place] [address] Tel , Service support , CC: Dr. Otto Subramanian MD; Sabas Nayak DO Flight Information Expediter: Signed Normal [facility] CBC W/Diff, Automatedon 11-0 Absolute Lymph 0.74 X10 3/uL Low 0.83-4.51 [facility] Comment on above: Performed By: #### L 500.2500, L100.0100, L501.5200, L501.3620, L501.9520 #### [facility] [address] [place], [place], [address] Absolute Neut 8.9 X10 3/uL High 2.0-7.7 [facility] Comment on above: Performed By: #### L 500.2500, L100.0100, L501.5200, L501.3620, L501.9520 #### [facility] [address] [place], [address] Basophils/100 WBC (Bld) 0.6 % Normal 0-1 [facility] Comment on above: Performed By: #### L 500.2500, L100.0100, L501.5200, L501.3620, L501.9520 #### [facility] [address] [place], [address] Eosinophils/100 WBC (Bld) 1.6 % Normal 0-5 [facility] Comment on above: Performed By: #### L 500.2500, L100.0100, L501.5200, L501.3620, L501.9520 #### [facility] [address] [place], [address] Erythrocyte distribution width (RBC) [Ratio] 13.6 % Normal 11.6-14.6 [facility] Comment on above: Performed By: #### L 500.2500, L100.0100, L501.5200, L501.3620, L501.9520 #### [facility] [address] [place], [address] Hematocrit (Bld) [Volume fraction] 39.3 % Low 40-54 [facility] Comment on above: Performed By: #### L 500.2500, L100.0100, L501.5200, L501.3620, L501.9520 #### [facility] [address] [place], [address] Hemoglobin (Bld) [Mass/Vol] 13.1 g/dL Normal 13.0-16.5 [facility] Comment on above: Performed By: #### L 500.2500, L100.0100, L501.5200, L501.3620, L501.9520 #### [facility] [address] [place], [address] IG% 2.200 High 0.0-0.9 [facility] Comment on above: Result Comment: IG% - Immature Granulocytes (promyelocytes, myelocytes and metamyelocytes) > 1% indicates that a LEFT SHIFT is Present. Performed By: #### L 500.2500, L100.0100, L501.5200, L501.3620, L501.9520 #### [facility] [address] [place], [address] Lymphocytes/100 WBC (Bld) 6.8 % Low 19-41 [facility] Comment on above: Performed By: #### L 500.2500, L100.0100, L501.5200, L501.3620, L501.9520 #### [facility] [address] [place], [address] MCH (RBC) [Entitic mass] 31.3 pg Normal 27.0-32.0 [facility] Comment on above: Performed By: #### L 500.2500, L100.0100, L501.5200, L501.3620, L501.9520 #### [facility] [address] [place], [address] MCHC (RBC) [Mass/Vol] 33.3 g/dL Normal 32-36 [facility] Comment on above: Performed By: #### L 500.2500, L100.0100, L501.5200, L501.3620, L501.9520 #### [facility] [address] [place], [address] MCV (RBC) [Entitic vol] 94.0 fL Normal 80-94 [facility] Comment on above: Performed By: #### L 500.2500, L100.0100, L501.5200, L501.3620, L501.9520 #### [facility] [address] [place], [address] Monocytes/100 WBC (Bld) 7.0 % Normal 0-10 [facility] Comment on above: Performed By: #### L 500.2500, L100.0100, L501.5200, L501.3620, L501.9520 #### [facility] [address] [place], [address] Neutrophils/100 WBC (Bld) 81.8 % High 47-70 [facility] Comment on above: Performed By: #### L 500.2500, L100.0100, L501.5200, L501.3620, L501.9520 #### [facility] [address] [place], [address] Nucleated RBC (Bld) [#/Vol] 0 10*3/uL Normal 0-5 [facility] Comment on above: Performed By: #### L 500.2500, L100.0100, L501.5200, L501.3620, L501.9520 #### [facility] [address] [place], [address] Platelet mean volume (Bld) [Entitic vol] 10.3 fL Normal 6.2-12.0 [facility] Comment on above: Performed By: #### L 500.2500, L100.0100, L501.5200, L501.3620, L501.9520 #### [facility] [address] [place], [address] Platelets (Bld) [#/Vol] 210 10*3/uL Normal 150-450 [facility] Comment on above: Performed By: #### L 500.2500, L100.0100, L501.5200, L501.3620, L501.9520 #### [facility] [address] [place], [address] RBC (Bld) [#/Vol] 4.18 10*6/uL Low 4.6-6.2 [facility] Comment on above: Performed By: #### L 500.2500, L100.0100, L501.5200, L501.3620, L501.9520 #### [facility] [address] [place], [address] RDW SD 46.9 fl High 35.1-43.9 [facility] Comment on above: Performed By: #### L 500.2500, L100.0100, L501.5200, L501.3620, L501.9520 #### [facility] [address] [place], [address] WBC (Bld) [#/Vol] 10.9 10*3/uL Normal 4.4-11.0 [facility] Comment on above: Performed By: #### L 500.2500, L100.0100, L501.5200, L501.3620, L501.9520 #### [facility] [address] [place], [address] CPK Total, Creatine Kinaseon 01-24-2024 CPK TOTAL 36 U/L Low 39-308 [facility] Comment on above: Performed By: #### L 500.2500, L100.0100, L501.5200, L501.3620, L501.9520 ####[facility] [id number], [address] Emergency Department Summary on 01-24-2024 Emergency Department Summary [facility] Medical Records Department [address] [place] [address] Emergency Department Summary 01/24/24 MR#: [id number] Acct: [id number] Name: ALEX CARPENTER Rep #: [id number] : 1935 88 From: Sabas Nayak DO PCP: Dr. Otto Subramanian MD Status:REG ER Location: ED HPI History of Present Illness Chief Complaint: Fall Informant: patient, spouse/S.O. and family Narrative Narrative: Patient is an 88-year-old male from home with past medical history of hypertension hyperlipidemia and obstructive sleep apnea. He states that he was staying up this evening watching the election results when he reached down for the remote from his chair. He states he lost his balance as he leaned too far forward and fell onto his left side. He denies striking his head or any loss of consciousness. He states he takes a baby aspirin but denies any history of bleeding disorder or blood thinner use. He states that he could not get up and therefore EMS had to be called. Even when they arrived he had difficulty holding himself up and secondary to this he was brought to the hospital for evaluation. Upon arrival to the ER the patient's main complaint is pain along his left rib cage [facility] Medical History Bilateral carotid bruits Nonrheumatic aortic (valve) stenosis Essential hypertension SHAMAR (obstructive sleep apnea) Old myocardial infarction Diastolic dysfunction Premature atrial contractions Cardiac murmur Hyperlipidemia Hypertension Atherosclerotic heart disease of [place] coronary artery without angina pectoris Home Medications ???Medication ???Instructions ???Recorded ???Last Taken ???Type aspirin 81 mg tablet,delayed 81 mg PO QDAY 11/06/17 Unknown History release lniadvwqhtt-xvzgvpnvq-dzq C-Mn 750 1 ea PO DAILY 05/19/19 Unknown History mg-600 mg-55 mg-5 mg tablet ergocalciferol (vitamin D2) 1,250 1,250 mcg PO QWEEK 10/14/21 Unknown History mcg (50,000 unit) capsule zoledronic acid 4 mg/100 mL in See Rx Instructions .Route .COMPLEX 06/21/22 Unknown History mannitol 5 %-water intravenous piggybck magnesium 250 mg tablet 250 mg PO DAILY 10/15/22 Unknown History meloxicam 7.5 mg tablet 7.5 mg PO DAILY PAIN 10/15/22 Unknown History potassium 99 mg tablet 99 mg PO DAILY 10/15/22 Unknown History nitroglycerin 0.4 mg sublingual 0.4 mg sublingual Q5-15M PRN chest 05/23/23 Unknown Rx tablet pain #25 tabs metoprolol tartrate 25 mg tablet 25 mg PO BID #180 tabs 07/11/23 Unknown Rx hydrochlorothiazide 12.5 mg tablet 12.5 mg PO DAILY #90 tabs 08/28/23 Unknown Rx losartan 25 mg tablet 25 mg PO DAILY #90 tabs 08/28/23 Unknown Rx atorvastatin 20 mg tablet 20 mg PO .QOD 12/26/23 Unknown History calcium 200 mg (as 1 tab PO DAILY 01/24/24 Unknown History citrate)-vitamin D3 6.25 mcg (250 unit) tablet coenzyme Q10 100 mg capsule 300 mg PO DAILY 01/24/24 Unknown History (CoQ-10) omega 3-xfc-qrh-fish oil 300 1 cap PO DAILY 01/24/24 Unknown History mg-1,000 mg capsule (Fish Oil) ondansetron 4 mg disintegrating 4 mg PO TID PRN nausea and 01/24/24 Unknown Rx tablet vomiting #21 tabs oxybutynin chloride 5 mg 5 mg PO DAILY 01/24/24 Unknown History tablet,extended release 24 hr oxycodone-acetaminophen 5 mg-325 1 tab PO Q6H PRN pain 5 days #20 01/24/24 Unknown Rx mg tablet (Percocet) tabs Allergy/AdvReac Type Severity Reaction Status Date / Time lisinopril AdvReac Severe cough Verified 01/24/24 02:41 Surgical History Postsurgical percutaneous transluminal coronary angioplasty (PTCA) status ( 07/29/13) Presence of stent in coronary artery ( 07/29/13) Social History Smoking Status: Never smoker alcohol intake: current details: Rare substance use type: does not use ROS ROS ED Constitutional Constitutional ED: Denies chills or fever(s) Eyes Eyes: Denies blurry vision, change in vision or diplopia ENT ENT ED: Denies sore throat Cardiovascular Cardiovascular: Denies chest pain, palpitations or racing heartbeat Respiratory/Chest Respiratory/Chest: Denies cough or dyspnea Gastrointestinal Gastrointestinal: Denies abdominal pain, diarrhea, nausea or vomiting Genitourinary Genitourinary ED: Denies dysuria Musculoskeletal Musculoskeletal: Reports back pain and other Details: Positive left rib pain ; Denies neck pain Integumentary Reports Abrasions Neurologic Neurologic: Reports weakness; Denies headache(s) or paresthesias Hematologic/Lymphatic Hematologic/Lymphatic: Denies easy bleeding or easy bruising EXAM Physical Exam Const Vital Signs: 01/24/24 02:41 01/24/24 02:45 01/24/24 04:39 Temperature 98.4 F 98.4 F [place] (more content not included)... Normal [facility] Lumbar Spine 2 or 3 Viewson 01-24-2024 Lumbar Spine 2 or 3 Views [facility] Imaging Services [address] [place], [place] [address] Lumbar Spine 2 or 3 Views MR#: [id number] Acct: [id number] Name: ALEX CARPENTER Rep #: [id number] : 1935 M 88 From: Bora Magallon PCP: Dr. Otto Subramanian MD Status: [facility] ER Study: Lumbar Spine 2 or 3 Views Date of Exam: Exam# [id number] Ordering Dr: Sabas Nayak DO [id number] INDICATION: fall EXAMINATION/TECHNIQUE: X-RAY - XR Spine Lumbar 2 or 3 Views COMPARISON: No relevant prior comparison study available FINDINGS: VERTEBRAE: There is 7 mm degenerative spondylolisthesis at L5-S1. Preservation of the normal lumbar lordosis. No significant facet arthropathy. DISCS: Severe multilevel spondylosis more prominent at L5-S1. INCLUDED ABDOMEN: Included bowel gas pattern is non-obstructive. RAD/Lumbar Spine 2 or 3 Views IMPRESSION: Severe multilevel spondylosis more prominent at L5-S1. Electronically Signed: Bora Sadler MD at 6:09 EST Reading Location ID and State: [facility] / [place] Tel , Service support , CC: Dr. Otto Subramanian MD; Sabas Nayak DO Flight Information Expediter: Signed Normal [facility] Magnesiumon 01-24-2024 Magnesium [Mass/Vol] 2.2 mg/dL Normal 1.6-2.6 [facility] Comment on above: Performed By: #### L 500.2500, L100.0100, L501.5200, L501.3620, L501.9520 ####[facility] [id number] [place], [address] Pelvis 1 or 2 Viewson 2023 Pelvis 1 or 2 Views [facility] Imaging Services [address] [place] [address] Pelvis 1 or 2 Views MR#: [id number] Acct: [id number] Name: ALEX CARPENTER Rep #: [id number] : 1935 M 88 From: Bora Magallon PCP: Dr. Otto Subramanian MD Status: [facility] ER Study: Pelvis 1 or 2 Views Date of Exam: 01/24/24 Exam# [id number] Ordering Dr: Sabas Nayak DO [id number] INDICATION: fall EXAMINATION/TECHNIQUE: X-RAY - XR Pelvis 1 or 2 Views COMPARISON: No relevant prior comparison study available FINDINGS: PELVIC BONES: No displaced fracture, destructive or sclerotic lesions. Note that overlapping bowel shadows may however obscure fine detail. Sacroiliac joints demonstrate moderate degenerative arthrosis. No widening of the pubic symphysis. HIPS: The articular structures are unremarkable. No displaced fracture seen in this frontal view. SOFT TISSUES: No soft tissue swelling or gas. RAD/Pelvis 1 or 2 Views IMPRESSION: Sacroiliac joints demonstrate moderate degenerative arthrosis. No evidence of displaced pelvic or hip fracture. Electronically Signed: Bora Sadler MD at 6:16 EST Reading Location ID and State: [address] [place] [address] Tel , Service support , CC: Dr. Otto Subramanian MD; Sabas Nayak DO Flight Information Expediter: Signed Normal [facility] Ribs Uni Min 3V w/PA Cheston 01-24-2024 Ribs Uni Min 3V w/PA Chest [facility] Imaging Services [address] [place], [place] [id number] (234) Ribs Uni Min 3V w/PA Chest MR#: [id number] Acct: [id number] Name: ALEX CARPENTER Rep #: [id number] : 1935 M 88 From: Bora Magallon PCP: Dr. Otto Subramanian MD Status: REG ER Study: Ribs Uni Min 3V w/PA Chest Date of Exam: 01/23 Exam# [id number] Ordering Dr: Sabas Nayak DO [id number] INDICATION: pain EXAMINATION/TECHNIQUE: X-RAY - XR Ribs Unilateral W/ PA Chest Min 3 Views COMPARISON: No relevant prior comparison study available FINDINGS: SOFT TISSUES: No soft tissue swelling or gas. BONES: Nondisplaced fracture of the left seventh and eighth ribs . VISUALIZED LUNGS: Clear. No pneumothorax. RAD/Ribs Uni Min 3V w/PA Chest IMPRESSION: Nondisplaced fracture of the left seventh and eighth ribs . Electronically Signed: Bora Sadler MD at 6:14 EST Reading Location ID and State: [facility] / [place] Tel , Service support , CC: Dr. Otto Subramanian MD; Sabas Nayak DO Flight Information Expediter: Signed Normal [facility] Spine Cervical without Contr ason 01-24-2024 Spine Cervical without Contras [facility] Imaging Services [address] [place], [place] [id number] Spine Cervical without Contras MR#: [id number] Acct: [id number] Name: ALEX CARPENTER Rep #: [id number] : 1935 M 88 From: Bora Magallon PCP: Dr. Otto Subramanian MD Status: REG ER Study: Spine Cervical without Contras Date of Exam: 03/25/23 Exam# [id number] Ordering Dr: Sabas Nayak DO [id number] INDICATION: fall EXAMINATION: CT CERVICAL SPINE - CT Spine Cervical W/O Contrast Injection TECHNIQUE: Helically acquired images were obtained of the cervical spine. 2D reformatted images were reviewed. The protocol utilizes one or more of the following dose reduction techniques: automated exposure control, adjustment of mA and/or kV according to patient size,and/or use of iterative reconstruction technique. IV Contrast dosage and agent: None. RADIATION DOSAGE (If Supplied By Facility): CTDIvol = ( 22.60 ) mGy, DLP = ( 469.81 ) mGycm COMPARISON: No relevant prior comparison study available FINDINGS: Normal craniovertebral junction. Normal anterior atlantoaxial articulation. Normal odontoid process. There is straightening of the normal cervical lordosis. 4.5 mm degenerative spondylolisthesis at C5-6. Normal vertebral bodies and posterior osseous elements. C2-3: Normal endplates. Normal disc height and morphology. Normal central canal and intervertebral neuroforamina. C3-4, C4-5, C5-6, C6-7: Endplate spondylosis. Central and paracentral disc bulge. Degenerative changes of the bilateral facet joints and uncovertebral joints. Moderate to severe narrowing of the central canal and the bilateral intervertebral neural foramina. C7-T1: Normal endplates. Normal disc height and morphology. Normal central canal and intervertebral neuroforamina. Normal visualized soft tissue structures. CT/Spine Cervical without Contras IMPRESSION: Multilevel degenerative changes, as described above. Electronically Signed: Bora Sadler MD at 6:30 EST Reading Location ID and State: [facility] / [place] Tel , Service support , CC: Dr. Otto Subramanian MD; Sabas Nayak DO Flight Information Expediter: Signed Normal [facility] Thoracic Spine 3 Viewson Thoracic Spine 3 Views [facility] Imaging Services [address] [place], [place] [id number] Thoracic Spine 3 Views MR#: [id number] Acct: [id number] Name: ALEX CARPENTER Rep #: [id number] : 1935 M 88 From: Bora Magallon PCP: Dr. Otto Subramanian MD Status: [facility] Study: Thoracic Spine 3 Views Date of Exam: 01/24/24 Exam# [id number] Ordering Dr: Sabas Nayak DO [id number] INDICATION: fall EXAMINATION/TECHNIQUE: X-RAY - XR Spine Thoracic 3 Views COMPARISON: No relevant prior comparison study available FINDINGS: VERTEBRAE: Preserved vertebral body height. No fracture. No spondylolisthesis. Preservation of the normal thoracic kyphosis. No significant facet arthropathy. DISCS: Severe multilevel spondylosis. INCLUDED CHEST/ABDOMEN: No acute abnormalities. RAD/Thoracic Spine 3 Views IMPRESSION: Severe multilevel spondylosis. Electronically Signed: Bora Sadler MD at 6:12 EST Reading Location ID and State: [facility] / [place] Tel , Service support , CC: Dr. Otto Subramanian MD; Sabas Nayak DO Flight Information Expediter: Signed Normal [facility] Thyroid Stim Hormone (TSH)on 01-24-2024 TSH 4.030 uIU/mL High 0.358-3.740 [facility] Comment on above: Performed By: #### L 500.2500, L100.0100, L501.5200, L501.3620, L501.9520 ####[facility] [id number] [place], [address] CNOVon 01-23-2024 CNOV Office Visit (UROLWS ) ----- ALEX CARPENTER ([id number]) 1935 M Date Time Provider Department 01/23/24 3:30 PM PRANAV [facility] During your visit today, we recorded the following information about you: Temperature Pulse Respiration Blood pressure 97.3 degrees 89/minute 20/minute 112/60 Weight Height 88.5 kg 1.702 m An Crespo RN 01/23/2024 8:33 PM Signed Verified name and date of . CC Post Void Residual HPI: Alex Carpenter is a 88 year old male. The patient is here now for an appointment with SHARRI Palacios [place], PA-COV. Procedure: Explained procedure to patient and verbalizes understanding. Performed a PVR. Patient urinated and instructed to empty bladder as much as possible just prior to having PVR done using bladder ultrasound scanner. Results of scan: 0 mL The patient tolerated the procedure well. Plan: Appointment with Brandon. An Crespo RN January 23, 2024 4:20 PM Pranav Tate PA-C 01/23/2024 8:33 PM Signed [facility] EST PATIENT CLINIC NOTE SERVICE DATE: January 23, 2024 NAME: Alex Carpneter CHIEF COMPLAINT: Hx of Adenocarcinoma of Prostate and OAB HISTORY OF PRESENT ILLNESS: Alex Carpenter is a 88 year old male an established patient following up for Hx of Adenocarcinoma of Prostate and OAB The patient reports running out of his Ditropan and new Rx sent to [facility] today Continued follow-up with Medical Oncology PSA 0.12 PVR - 0 ml UA - Negative LUTS: URGENCY: Yes LABS: PSA (ng/mL) Date Value 12/12/2023 0.12 09/19/2023 0.15 06/27/2023 0.17 09/23/2020 0.92 07/05/2019 0.25 03/06/2019 33.08 Testosterone (ng/dL) Date Value 10/08/2021 101 Hematocrit (%) Date Value 12/12/2023 39.4 09/19/2023 41.9 06/27/2023 42.2 07/12/2010 39.7 PSA (ng/mL) Date Value 12/12/2023 0.12 09/19/2023 0.15 06/27/2023 0.17 09/23/2020 0.92 07/05/2019 0.25 03/06/2019 33.08 Creatinine Date Value Ref Range Status 12/12/2023 1.00 0.73 - 1.22 mg/dL Final 09/19/2023 1.09 0.73 - 1.22 mg/dL Final 06/27/2023 1.18 0.73 - 1.22 mg/dL Final MEDICATIONS: ergocalciferol 50,000 unit capsule (VITAMIN D2, DRISDOL) Take 1 capsule by mouth one time a week. meloxicam (MOBIC) 7.5 mg tablet Take 7.5 mg by mouth once daily. magnesium hydroxide (MAGNESIA ORAL) Take 250 mg by mouth once daily as needed (constipation). POTASSIUM-99 ORAL Take 1 tablet by mouth once daily. hydroCHLOROthiazide (HYDRODIURIL, ESIDRIX) 12.5 mg capsule Take 12.5 mg by mouth once daily. losartan (COZAAR) 25 mg tablet Take 25 mg by mouth once daily. metoprolol tartrate, short acting, (LOPRESSOR) 50 mg tablet Take 50 mg by mouth twice daily. atorvastatin 40 mg tablet Take 20 mg by mouth every other day. aspirin, enteric coated 81 mg EC tablet Take 81 mg by mouth once daily. GLUCOSAM/MSM/CHONDR/VIT C/HYAL (GLUCOSAMINE-CHONDROITIN- MSM ORAL) Take 1 tablet by mouth two times a day. nitroglycerin sublingual 0.3 mg SL tablet Dissolve 0.3 mg under the tongue every 5 minutes as needed. Calcium Carbonate-Vitamin D3 600mg (1,000mg) -1,000 unit ORAL Tab Take 1 tablet by mouth once daily. Fish Oil-Shields-3 Fatty Acids 500-300 mg ORAL Cap Take one(1) tablet daily. oxybutynin XL (DITROPAN XL) 5 mg 24 hr tablet Take 1 tablet by mouth once daily. OTC PRODUCT Take 1,500 mg by mouth two times a day. Lipozene (Patient not taking: Reported on 01/23/2024) ubidecarenone (ULTRA COQ10 ORAL) Take by mouth once daily. (Patient not taking: Reported on 01/23/2024) apalutamide (ERLEADA) 60 mg tablet Take 3 tablets (180mg) by mouth once daily. (Patient not taking: Reported on 07/11/2022) PAST MEDICAL HISTORY: PAST MEDICAL HISTORY Diagnosis Date Bone metastases 10/08/2021 HTN (hypertension) Malignant neoplasm 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) Prostate cancer (HCC) SCC (squamous cell carcinoma), face REVIEW OF SYSTEMS: GENERAL: No fever, chills, weight loss, or fatigue. PHYSICAL EXAMINATION: Blood pressure 112/60, pulse 89, temperature 36.3 ?C (97.3 ?F), resp. rate 20, height 170.2 cm (5' 7), weight 88.5 kg (195 lb), SpO2 96%. GENERAL: WNL nutrition, no deformities, healthy appearing PROBLEM LIST REVIEW: Yes LABS: Results for orders placed or performed in visit on 01/23/24 UA DIP, URINE (POC) Result Value Ref Range GLUCOSE UA (POCT) Negative Negative mg/dL BILIRUBIN UA (POCT) Negative Negative KETONE UA (POCT) Negative Negative mg/dL SPECIFIC GRAVITY UA (POCT) 1.025 1.005 - 1.030 HEMOGLOBIN/BLOOD UA (POCT) Negative Negative PH UA (POCT) 6.5 4.5 - 8.0 PROTEIN UA (POCT) Negative Negative mg/dL UROBILINOGEN UA (POCT) 0.2 Normal E.U./dL NITRITE UA (POCT) Negative Negative LEUKOCYTES UA (POCT) Negative Negative COLOR UA (POCT) Yellow CLARITY UA (POCT) Clear PROCEDURES: PVR: 0 ml (more content not included)... Normal [facility] UA DIP, URINE (POC)on 2023 BILIRUBIN UA (POCT) Negative Negative [facility] CLARITY UA (POCT) Clear [facility] COLOR UA (POCT) Yellow [facility] GLUCOSE UA (POCT) Negative Negative mg/dL [facility] Hemoglobin Ql (U) Negative Negative [facility] KETONE UA (POCT) Negative Negative mg/dL [facility] LEUKOCYTES UA (POCT) Negative [facility] NITRITE UA (POCT) Negative Negative [facility] PH UA (POCT) 6.5 4.5 - 8.0 [facility] Protein Ql (U) Negative Negative mg/dL [facility] SPECIFIC GRAVITY UA (POCT) 1.025 1.005 - 1.030 [facility] UROBILINOGEN UA (POCT) 0.2 Vijaya l E.U./dL [facility] Location:[facility], [address] , [place], [place], [id number] [place] [address] POINT OF CARE [facility] Cardiology Visit Reporton Cardiology Visit Report [facility] [address] [place] [address] OFFICE VISIT Date of Service: 12/26/23 MR#: [id number] Acct: [id number] Name: ALEX CARPENTER Rep #: [id number] : 1935 Provider: Dr. Osman Bui MD Age/Sex: 88/M Location: [facility] Status: Signed [facility] History of Present Illness Details: This is an 88 year-old white male who presents today for an outpatient cardiovascular follow-up visit. He has a history of underlying CAD status post IMMANUEL (2013), aortic valve stenosis, hyperlipidemia, and hypertension. From a cardiac standpoint, the patient is doing well. He denies any palpitations, chest pain, pressure or heaviness. He denies SOB, Orthopnea, and PND. He does not have bleeding issues; no blood in urine, stool or nosebleeds. He does acknowledge a decrease in energy level. He denies myalgias, or claudication. He does not have edema, or sudden weight gain. He denies dizziness, lightheadedness, syncopal or near syncopal episodes, and headaches. He has some minor complaints including medications as well as arthritis. He is also had some memory issues. 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 Accompanied by: Self Is patient in pain?: No Allergies lisinopril Adverse Reaction (Severe, Verified 12/26/23 10:59) cough Medications ???Medication ???Instructions ???Recorded ???Confirmed ???Type aspirin 81 mg tablet,delayed 81 mg PO QDAY 11/06/17 12/26/23 History release calcium 600 mg (as 1 tab PO QDAY 11/06/17 12/26/23 History carbonate)-vitamin D3 5 mcg (200 unit) tablet (Calcium 600 with Vitamin D3) jacvwweoygt-cvobuyolb-boz C-Mn 750 1 ea PO DAILY 05/19/19 12/26/23 History mg-600 mg-55 mg-5 mg tablet ergocalciferol (vitamin D2) 1,250 1,250 mcg PO QWEEK 10/14/21 12/26/23 History mcg (50,000 unit) capsule zoledronic acid 4 mg/100 mL in See Rx Instructions .Route .COMPLEX 06/21/22 12/26/23 History mannitol 5 %-water intravenous piggybck magnesium 250 mg tablet 250 mg PO DAILY 10/15/22 12/26/23 History meloxicam 7.5 mg tablet 7.5 mg PO DAILY PAIN 10/15/22 12/26/23 History potassium 99 mg tablet 99 mg PO DAILY 10/15/22 12/26/23 History polyethylene glycol 3350 17 17 g PO DAILY PRN constipation 10/17/22 12/26/23 Rx gram/dose oral powder (Miralax) #119 grams nitroglycerin 0.4 mg sublingual 0.4 mg sublingual Q5-15M PRN chest 05/23/23 12/26/23 Rx tablet pain #25 tabs metoprolol tartrate 25 mg tablet 25 mg PO BID #180 tabs 07/11/23 12/26/23 Rx hydrochlorothiazide 12.5 mg tablet 12.5 mg PO DAILY #90 tabs 08/28/23 12/26/23 Rx losartan 25 mg tablet 25 mg PO DAILY #90 tabs 08/28/23 12/26/23 Rx atorvastatin 20 mg tablet 20 mg PO .QOD 12/26/23 History Have you fallen in the past year?: Yes PFSH Medical History Bilateral carotid bruits Nonrheumatic aortic (valve) stenosis Essential hypertension SHAMAR (obstructive sleep apnea) Old myocardial infarction Diastolic dysfunction Premature atrial contractions Cardiac murmur Hyperlipidemia Hypertension Atherosclerotic heart disease of [place] coronary artery without angina pectoris Surgical History Postsurgical percutaneous transluminal coronary angioplasty (PTCA) status ( 07/29/13) Presence of stent in coronary artery ( 07/29/13) Social History Smoking Status: Never smoker alcohol intake: current details: Rare substance use type: does not use ROS Const Const: Positive for difficulty sleeping; Negative for fatigue, weakness, headache(s) or daytime sleepiness ENT ENT: Positive for balance problems; Negative for headache(s), dizziness or Nosebleed/epistaxis Cardio Chest Pain: No Palpitations: No Edema: None Resp Respiratory: Negative for SOB with activity, SOB at rest, SOB orthopnea SOB lying down or Cough GI GI: Negative nausea, vomiting or heartburn Musc Musc: Positive for balance problems Neuro Neuro: Negative for dizziness, lightheadedness, near syncope, headache(s) or weakness Endo Endo: Negative for fatigue Cardiology Exam Const Appearance: cooperative, healthy appearing, comfortable and no acute distress Nutritional Appearance: well nourished and obese Orientation: alert, awake and oriented x3 Head Head: normal to inspection Ears: hearing grossly impaired Nose: external nose normal Face and Sinus: face symmetric Mouth: oral mucosa (more content not included)... Normal [facility] CBC W Auto Differential pane l (Bld)on 12-12-2023 Basophils (Bld) [#/Vol] 0.04 10*3/uL Normal <0.11 [facility] Comment on above: Order Comment: Speci men Type: BLOOD SPECIMENOrdering Facility: [facility] Address: [address] [place] [address] Performed By: #### 5 7021-8 ####[facility]ITALWNCLIA [id number] [place] [address] [place] Basophils/100 WBC (Bld) 0.5 % Normal [facility] Comment on above: Order Comment: Speci men Type: BLOOD SPECIMENOrdering Facility: [facility] Address: [address] [place] [address] Performed By: #### 5 7021-8 ####[facility] [id number] [place] [address] [place] Differential cell count method Nom (Bld) Auto Normal [facility] Comment on above: Order Comment: Speci men Type: BLOOD SPECIMENOrdering Facility: [facility] Address: [address] [place] [address] Performed By: #### 5 7021-8 ####[facility] [id number] [place] [address] [place] Eosinophils (Bld) [#/Vol] 0.24 10*3/uL Normal <0.46 [facility] Comment on above: Order Comment: Speci men Type: BLOOD SPECIMENOrdering Facility: [facility] Address: [address] [place] [address] Performed By: #### 5 7021-8 ####[facility] [id number] [place] [address] [place] Eosinophils/100 WBC (Bld) 3.1 % Normal [facility] Comment on above: Order Comment: Speci men Type: BLOOD SPECIMENOrdering Facility: [facility] Address: [address] [place] [address] Performed By: #### 5 7021-8 ####[facility] ERNCLIA [id number] [place] [address] [place] Erythrocyte distribution width (RBC) [Ratio] 13.1 % Normal 11.5-15.0 [facility] Comment on above: Order Comment: Speci men Type: BLOOD SPECIMENOrdering Facility: [facility] Address: [address] [place] [address] Performed By: #### 5 7021-8 ####[facility] [id number] [place] [address] [place] Hematocrit (Bld) [Volume fraction] 39.4 % Normal 39.0-51.0 [facility] Comment on above: Order Comment: Speci men Type: BLOOD SPECIMENOrdering Facility: [facility] Address: [address] [place] [address] Performed By: #### 5 7021-8 ####[facility] [id number] [place] [address] [place] Hemoglobin (Bld) [Mass/Vol] 13.3 g/dL Normal 13.0-17.0 [facility] Comment on above: Order Comment: Speci men Type: BLOOD SPECIMENOrdering Facility: [facility] Address: [address] [place] [address] Performed By: #### 5 7021-8 ####[facility] [id number] [place] [address] [place] Immature granulocytes (Bld) [#/Vol] 0.05 10*3/uL Normal <0.10 [facility] Comment on above: Order Comment: Speci men Type: BLOOD SPECIMENOrdering Facility: [facility] Address: [address] [place] [address] Performed By: #### 5 7021-8 ####[facility] [id number] [place] [address] [place] Immature granulocytes/100 WBC (Bld) 0.6 % Normal [facility] Comment on above: Order Comment: Speci men Type: BLOOD SPECIMENOrdering Facility: [facility] Address: [address] [place] [address] Performed By: #### 5 7021-8 ####[facility] [id number] [place] [address] [place] Lymphocytes (Bld) [#/Vol] 0.75 10*3/uL Low 1.00-4.00 [facility] Comment on above: Order Comment: Speci men Type: BLOOD SPECIMENOrdering Facility: [facility] Address: [address] [place] [address] Performed By: #### 5 7021-8 ####[facility] [id number] [place] [address] [place] Lymphocytes/100 WBC (Bld) 9.5 % Normal [facility] Comment on above: Order Comment: Speci men Type: BLOOD SPECIMENOrdering Facility: [facility] Address: [address] [place] [address] Performed By: #### 5 7021-8 ####[facility] ERNCLIA [id number] [place] [address] [place] MCH (RBC) [Entitic mass] 30.9 pg Normal 26.0-34.0 [facility] Comment on above: Order Comment: Speci men Type: BLOOD SPECIMENOrdering Facility: [facility] Address: [address] [place] [address] Performed By: #### 5 7021-8 ####[facility] ERNCLIA [id number] [place] [address] [place] MCHC (RBC) [Mass/Vol] 33.8 g/dL Normal 30.5-36.0 [facility] Comment on above: Order Comment: Speci men Type: BLOOD SPECIMENOrdering Facility: [facility] Address: [address] [place] [address] Performed By: #### 5 7021-8 ####[facility] CAROLIN DONNA [id number] [place] [address] [place] MCV (RBC) [Entitic vol] 91.6 fL Normal 80.0-100.0 C [facility] Comment on above: Order Comment: Speci men Type: BLOOD SPECIMENOrdering Facility: [facility] Address: [address] [place] [address] Performed By: #### 5 7021-8 ####[facility] ERNCPACO [id number] [place] [address] [place] Monocytes (Bld) [#/Vol] 0.48 10*3/uL Normal <0.87 [facility] Comment on above: Order Comment: Speci men Type: BLOOD SPECIMENOrdering Facility: [facility] Address: [address] [place] [address] Performed By: #### 5 7021-8 ####[facility] ERNCLIA [id number] [place] [address] [place] Monocytes/100 WBC (Bld) 6.1 % Normal C [facility] Comment on above: Order Comment: Speci men Type: BLOOD SPECIMENOrdering Facility: [facility] Address: [address] [place] [address] Performed By: #### 5 7021-8 ####[facility] ERNCLIA [id number] [place] [address] [place] Neutrophils (Bld) [#/Vol] 6.30 10*3/uL Normal 1.45-7.50 [facility] Comment on above: Order Comment: Speci men Type: BLOOD SPECIMENOrdering Facility: [facility] Address: [address] [place] [address] Performed By: #### 5 7021-8 ####[facility] ADRIANWNCLIA [id number] [place] [address] [place] Neutrophils/100 WBC (Bld) 80.2 % Normal [facility] Comment on above: Order Comment: Speci men Type: BLOOD SPECIMENOrdering Facility: [facility] Address: [address] [place] [address] Performed By: #### 5 7021-8 ####[facility] [id number] [place] [address] [place] Nucleated RBC (Bld) [#/Vol] 10*3/uL Normal <0.01 [facility] Comment on above: Order Comment: Speci men Type: BLOOD SPECIMENOrdering Facility: [facility] Address: [address] [place] [address] Performed By: #### 5 7021-8 ####[facility] [id number] [place] [address] [place] Nucleated RBC/100 WBC (Bld) [Ratio] 0.0 /100 WBC Normal [facility] Comment on above: Order Comment: Speci men Type: BLOOD SPECIMENOrdering Facility: [facility] Address: [address] [place] [address] Performed By: #### 5 7021-8 ####[facility] [id number] [place] [address] [place] Platelet mean volume (Bld) [Entitic vol] 10.4 fL Normal 9.0-12.7 [facility] Comment on above: Order Comment: Speci men Type: BLOOD SPECIMENOrdering Facility: [facility] Address: [address] [place] [address] Performed By: #### 5 7021-8 ####[facility] [id number] [place] [address] [place] Platelets (Bld) [#/Vol] 213 10*3/uL Normal 150-400 [facility] Comment on above: Order Comment: Speci men Type: BLOOD SPECIMENOrdering Facility: [facility] Address: [address] [place] [address] Performed By: #### 5 7021-8 ####[facility] ERNCBIBIANAA [id number] [place] [address] [place] RBC (Bld) [#/Vol] 4.30 10*6/uL Normal 4.20-6.00 [facility] Comment on above: Order Comment: Speci men Type: BLOOD SPECIMENOrdering Facility: [facility] Address: [address] [place] [address] Performed By: #### 5 7021-8 ####[facility] ERNCLIA [id number] [place] [address] [place] WBC (Bld) [#/Vol] 7.86 10*3/uL Normal 3.70-11.00 [facility] Comment on above: Order Comment: Speci men Type: BLOOD SPECIMENOrdering Facility: [facility] Address: [address] [place] [address] Performed By: #### 5 7021-8 ####[facility] ERNCLIA [id number] [place] [address] [place] CNOVSPon 12-12-2023 CNOVSP Visit (SP) Office (HEMAWS) ----- ALEX CARPENTER ([id number]) 1935 M Date Time Provider Department 12/12/23 10:00 AM TREATMENT RM 14 [facility] WSTRHEMAWS During your visit today, we recorded the following information about you: Referring Provider: BREE CORNEJO [[id number]] Allergies As of Date: 12/12/2023 Noted Allergy Reaction LISINOPRIL 07/11/2022 3 - Cough Date Reviewed: 12/12/2023 Reviewed by: Pb Snow MA - Fully Assessed Reason for Visit: Non-Chemotherapy Treatment [795] Primary Visit Diagnosis:Malignant neoplasm of prostate (HCC) [C61] Other Visit Diagnosis:Malignant neoplasm 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) [C79.51] Order(s):PHARMACY COMMUNICATION PATIENT ARRIVEDDisp: Rfl: [] zoledronic acid 3.3 mg in NaCl 0.9% 100 mL (ZOMETA)Disp: Rfl: BCN NURSING COMMUNICATION [[id number]] Order #: [id number]: 1 STANDING Prescriptions as of 12/12/2023 - oxybutynin XL (DITROPAN XL) 5 mg 24 hr tablet Take 1 tablet by mouth once daily. - ergocalciferol 50,000 unit capsule (VITAMIN D2, DRISDOL) Take 1 capsule by mouth one time a week. - OTC PRODUCT Take 1,500 mg by mouth two times a day. Lipozene - meloxicam (MOBIC) 7.5 mg tablet Take 7.5 mg by mouth once daily. - magnesium hydroxide (MAGNESIA ORAL) Take 250 mg by mouth once daily. - POTASSIUM-99 ORAL Take 1 tablet by mouth once daily. - ubidecarenone (ULTRA COQ10 ORAL) Take by mouth once daily. - apalutamide (ERLEADA) 60 mg tablet Take 3 tablets (180mg) by mouth once daily. - hydroCHLOROthiazide (HYDRODIURIL, ESIDRIX) 12.5 mg capsule Take 12.5 mg by mouth once daily. - losartan (COZAAR) 25 mg tablet Take 25 mg by mouth once daily. - metoprolol tartrate, short acting, (LOPRESSOR) 50 mg tablet Take 50 mg by mouth twice daily. - atorvastatin 40 mg tablet Take 20 mg by mouth every other day. - aspirin, enteric coated 81 mg EC tablet Take 81 mg by mouth once daily. - GLUCOSAM/MSM/CHONDR/VIT C/HYAL (GLUCOSAMINE-CHONDROITIN- MSM ORAL) Take 1 tablet by mouth two times a day. - nitroglycerin sublingual 0.3 mg SL tablet Dissolve 0.3 mg under the tongue every 5 minutes as needed. - Calcium Carbonate-Vitamin D3 600mg (1,000mg) -1,000 unit ORAL Tab Take 1 tablet by mouth once daily. - Fish Oil-Shields-3 Fatty Acids 500-300 mg ORAL Cap Take one(1) tablet daily. 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] 01/22/2007 Suprapubic Pain [R10.2] 04/03/2009 Malignant neoplasm 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) [C7*10/08/2021 Encounter Status:Closed by MARGIE CORBIN on 12/12/23 [facility] Visit (SP) Office (IGOR) ----- ALEX CARPENTER ([id number]) 1935 M Date Time Provider Department 12/12/23 9:30 AM CRISSY MAI During your visit today, we recorded the following information about you: Temperature Pulse Blood pressure Weight 98.5 degrees 79/minute 103/62 90 kg Crissy Mai 12/12/2023 12:06 PM Signed Alex Carpenter 1935 12/12/2023 HISTORY OF PRESENT ILLNESS: Alex Carpenter is a 87 year old male diagnosed with prostate cancer in 1998, status post radical prostatectomy for [place] score 6 = 3+3. He had been on intermittent ADT for biochemical failure, elevated PSA, in the past. Component Latest Ref Rng AND Units 03/04/2019 03/06/2019 07/05/2019 09/23/2020 PSA 0.00 - 2.59 ng/mL 29.01 (H) 33.08 (H) 0.25 0.92 He had not had LHRH injection until recently when his PSA was over 210 by his primary care physician because of generalized aches and pain. Subsequent CT scan of the abdomen pelvis and bone scan recently showed findings suggestive of metastatic deposit along the anterior aspect of the right seventh rib in the pedicle of the left side of T12. There is left hemisacrum activity as well. Degenerative changes noted in both knees and both shoulder joints. His bone density test within the last year showed evidence of osteopenia. Started back on androgen deprivation therapy with Eligard in September 2021, due to PSA 246. He had no hot flashes, increased fatigue or muscle weakness. He denied difficulty with urination. He had general arthritis pain in both knee and shoulder along with generalized aching. No change in weight or appetite. CT scans negative, bone scan suggested bone mets Previous therapy: 1) Apalutamide. Started September 2021. Stopped in June 2022 due to generalized weakness and malaise. Current treatment: 1) Lupron every 3 months. 2) Zometa every 6 months Interim history: Mr. Carpenter presents today for follow up of prostate ca. He reports doing well. Denies new aches or pains. No lumps or bumps. Denies HF, NS. No changes in bowel or bladder habits. Continues to have some urinary leakage throughout the day but this is stable. No bleeding or bruising. No SOB, CP, or palpitations. No ROMERO, dizziness, or changes in vision. Denies N/V/C/D. No rash or skin changes. Appetite and energy level are stable. CLINICAL IMPRESSION: Prostate cancer metastatic to bone. Doing well on GnRH agonist alone PSA pending today RECOMMENDATION/PLAN: 1. Continue lupron q 3 months, will add back apalutamide if PSA continues to climb. 2. Continue Zometa every 3 months 3. Follow PSA 4. OV with injection Written and verbal health teaching given to patient, patient verbalizes understanding and agrees with treatment plan. PAST MEDICAL HISTORY Diagnosis Date Bone metastases 10/08/2021 HTN (hypertension) Malignant neoplasm 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) Prostate cancer (HCC) SCC (squamous cell carcinoma), face PAST SURGICAL HISTORY Procedure Laterality Date PROSTATECTOMY;RADICAL RETROPUBIC 1996 FAMILY HISTORY Problem Relation Age of Onset Breast Cancer Mother Cancer Father Social History Tobacco Use Smoking status: Never Smokeless tobacco: Never Vaping Use Vaping status: Never Used Substance Use Topics Alcohol use: No Drug use: Never ALLERGIES: ALLERGIES Allergen Reactions Lisinopril Cough CURRENT OUTPATIENT MEDICATIONS: ergocalciferol 50,000 unit capsule (VITAMIN D2, DRISDOL) Take 1 capsule by mouth one time a week. OTC PRODUCT Take 1,500 mg by mouth two times a day. Lipozene meloxicam (MOBIC) 7.5 mg tablet Take 7.5 mg by mouth once daily. magnesium hydroxide (MAGNESIA ORAL) Take 250 mg by mouth once daily. POTASSIUM-99 ORAL Take 1 tablet by mouth once daily. hydroCHLOROthiazide (HYDRODIURIL, ESIDRIX) 12.5 mg capsule Take 12.5 mg by mouth once daily. losartan (COZAAR) 25 mg tablet Take 25 mg by mouth once daily. metoprolol tartrate, short acting, (LOPRESSOR) 50 mg tablet Take 50 mg by mouth twice daily. atorvastatin 40 mg tablet Take 20 mg by mouth every other day. aspirin, enteric coated 81 mg EC tablet Take 81 mg by mouth once daily. GLUCOSAM/MSM/CHONDR/VIT C/HYAL (GLUCOSAMINE-CHONDROITIN- MSM ORAL) Take 1 tablet by mouth two times a day. nitroglycerin sublingual 0.3 mg SL tablet Dissolve 0.3 mg under the tongue every 5 minutes as needed. Calcium Carbonate-Vitamin D3 600mg (1,000mg) -1,000 unit ORAL Tab Take 1 tablet by mouth once daily. oxybutynin XL (DITROPAN XL) 5 mg 24 hr tablet Take 1 tablet by mouth once daily. ubidecarenone (ULTRA COQ10 ORAL) Take by mouth once daily. apalutamide (ERLEADA) 60 mg tablet Take 3 tablets (180mg) by mouth once daily. (Patient not taking: Reported on 07/11/2022) Fish Oil-Shields-3 Fatty Acids 500-300 mg ORAL Cap Take one(1) tablet daily. Lab Results Component Value Date PSA 0.15 09/19/2023 PSA 0.17 (more content not included)... Normal [facility] metabolic 2000 panelon 12-12-2023 Albumin [Mass/Vol] 3.9 g/dL Normal 3.9-4.9 [facility] Comment on above: Order Comment: Speci men Type: BLOOD SPECIMENOrdering Facility: [facility] Address: [address] [place] [address] Performed By: #### 2 4323-8 ####[facility] MILLTOWNCLIA [id number] [place] [address] [place] ALP [Catalytic activity/Vol] 89 U/L Normal 38-113 [facility] Comment on above: Order Comment: Speci men Type: BLOOD SPECIMENOrdering Facility: [facility] Address: [address] [place] [address] Performed By: #### 2 4323-8 ####[facility]IT[facility]OWNCLIA [id number] [place] [address] [place] ALT [Catalytic activity/Vol] 10 U/L Normal 10-54 [facility] Comment on above: Order Comment: Speci men Type: BLOOD SPECIMENOrdering Facility: [facility] Address: [address] [place] [address] Performed By: #### 2 4323-8 ####[facility] ERNCLIA [id number] [place] [address] [place] Anion gap [Moles/Vol] 10 mmol/L Normal 8-15 [facility] Comment on above: Order Comment: Speci men Type: BLOOD SPECIMENOrdering Facility: [facility] Address: [address] [place] [address] Performed By: #### 2 4323-8 ####[facility] MILLTOWNCLIA [id number] [place] [address] [place] AST [Catalytic activity/Vol] 15 U/L Normal 14-40 [facility] Comment on above: Order Comment: Speci men Type: BLOOD SPECIMENOrdering Facility: [facility] Address: [address] [place] [address] Performed By: #### 2 4323-8 ####[facility] MILLTOWNCLIA [id number] [place] [address] [place] Bilirubin [Mass/Vol] 0.7 mg/dL Normal 0.2-1.3 [facility] Comment on above: Order Comment: Speci men Type: BLOOD SPECIMENOrdering Facility: [facility] Address: [address] [place] [address] Performed By: #### 2 4323-8 ####[facility] MILLWNCLIA [id number] [place] [address] [place] Calcium [Mass/Vol] 9.4 mg/dL Normal 8.5-10.2 [facility] Comment on above: Order Comment: Speci men Type: BLOOD SPECIMENOrdering Facility: [facility] Address: [address] [place] [address] Performed By: #### 2 4323-8 ####[facility] [id number] [place] [address] [place] Chloride [Moles/Vol] 105 mmol/L Normal 98-107 [facility] Comment on above: Order Comment: Speci men Type: BLOOD SPECIMENOrdering Facility: [facility] Address: [address] [place] [address] Performed By: #### 2 4323-8 ####[facility] MILLWNCLIA [id number] [place] [address] [place] CO2 [Moles/Vol] 26 mmol/L Normal 22-30 [facility] Comment on above: Order Comment: Speci men Type: BLOOD SPECIMENOrdering Facility: [facility] Address: [address] [place] [address] Performed By: #### 2 4323-8 ####[facility] ERNCLIA [id number] [place] [address] [place] Creatinine [Mass/Vol] 1.00 mg/dL Normal 0.73-1.22 [facility] Comment on above: Order Comment: Edgard wood Type: BLOOD SPECIMENOrdering Facility: [facility] Address: [address] [place] [address] Performed By: #### 2 4323-8 ####[facility] [id number] [place] [address] [place] Creatinine and Glomerular filtration rate.predicted panel (S/P/Bld) 73 mL/min/1.73m??? Normal >=60 [facility] Comment on above: Order Comment: Edgard wood Type: BLOOD SPECIMENOrdering Facility: [facility] Address: [address] [place] [address] Result Comment: Isabel mated Glomerular Filtration Rate (eGFR) is calculated using the 2020 CKD-EPI creatinine equation. This equation utilizes serum creatinine, sex, and age as parameters. The creatinine assay has traceable calibration to isotope dilution-mass spectrometry. Refer to KDIGO guidelines for clinical interpretation. In patients with unstable renal function, e.g. those with acute kidney injury, the eGFR may not accurately reflect actual GFR. Performed By: #### 2 4323-8 ####[facility] [id number] [place] [address] [place] Glucose [Mass/Vol] 153 mg/dL High 74-99 [facility] Comment on above: Order Comment: Edgard wood Type: BLOOD SPECIMENOrdering Facility: [facility] Address: [address] [place] [address] Result Comment: The [place] Diabetes Association (ADA) provides guidance for cutoff values for fasting glucose and random glucose. The ADA defines fasting as no caloric intake for at least 8 hours. Fasting plasma glucose results between 100 to 125 mg/dL indicate increased risk for diabetes (prediabetes). Fasting plasma glucose results greater than or equal to 126 mg/dL meet the criteria for diagnosis of diabetes. In the absence of unequivocal hyperglycemia, results should be confirmed by repeat testing. In a patient with classic symptoms of hyperglycemia or hyperglycemic crisis, random plasma glucose results greater than or equal to 200 mg/dL meet the criteria for diagnosis of diabetes. Reference: Standards of Medical Care in Diabetes 2016, [place] Diabetes Association. Diabetes Care. 2016.39(Suppl 1). Performed By: #### 2 4323-8 ####[facility] HOSPITALMACK NICOLEJANA [id number] [place] [address] [place] Potassium [Moles/Vol] 3.3 mmol/L Low 3.7-5.1 [facility] Comment on above: Order Comment: Speci men Type: BLOOD SPECIMENOrdering Facility: [facility] Address: [address] [place] [address] Performed By: #### 2 4323-8 ####[facility] ERJANA [id number] [place] [address] [place] Protein [Mass/Vol] 6.3 g/dL Normal 6.3-8.0 [facility] Comment on above: Order Comment: Speci men Type: BLOOD SPECIMENOrdering Facility: [facility] Address: [address] [place] [address] Performed By: #### 2 4323-8 ####[facility] ERNCPACO [id number] [place] [address] [place] Sodium [Moles/Vol] 141 mmol/L Normal 136-144 [facility] Comment on above: Order Comment: Speci men Type: BLOOD SPECIMENOrdering Facility: [facility] Address: [address] [place] [address] Performed By: #### 2 4323-8 ####[facility] ERNCPACO [id number] [place] [address] [place] Urea nitrogen [Mass/Vol] 30 mg/dL High 9-24 [facility] Comment on above: Order Comment: Speci men Type: BLOOD SPECIMENOrdering Facility: [facility] Address: [address] [place] [address] Performed By: #### 2 4323-8 ####[facility]ITALWNCLIA [id number] [place] [address] [place] [facility] Prostate specific Ag [Mass/Vol] 0.12 ng/mL Normal <2.60 [facility] Comment on above: Order Comment: Speci men Type: BLOOD SPECIMEN Ordering Facility: [facility] Address: [address] [place] [address] Result Comment: Tota l PSA test methodology used is the Electrochemiluminescence Immunoassay by [employer]. Total PSA values by differing methodologies cannot be interchanged. Performed By: #### 4 537-7 #### [facility] CLIA [id number] [address] [place] [address] [place] CBC W Auto Differential pane l (Bld)on 09-19-2023 Basophils (Bld) [#/Vol] 0.07 10*3/uL Normal <0.11 [facility] Comment on above: Order Comment: Speci men Type: BLOOD SPECIMENOrdering Facility: [facility] Address: [address] [place] [address] Performed By: #### 5 7021-8 ####[facility] ERNCA [id number] [place] [address] [place] Basophils/100 WBC (Bld) 0.8 % Normal [facility] Comment on above: Order Comment: Speci men Type: BLOOD SPECIMENOrdering Facility: [facility] Address: [address] [place] [address] Performed By: #### 5 7021-8 ####[facility] [id number] [place] [address] [place] Differential cell count method Nom (Bld) Auto Normal [facility] Comment on above: Order Comment: Speci men Type: BLOOD SPECIMENOrdering Facility: [facility] Address: [address] [place] [address] Performed By: #### 5 7021-8 ####[facility] MILLWNCLIA [id number] [place] [address] [place] Eosinophils (Bld) [#/Vol] 0.37 10*3/uL Normal <0.46 [facility] Comment on above: Order Comment: Speci men Type: BLOOD SPECIMENOrdering Facility: [facility] Address: [address] [place] [address] Performed By: #### 5 7021-8 ####[facility]OSPITALWSCLIA [id number] [place] [address] [place] Eosinophils/100 WBC (Bld) 4.1 % Normal [facility] Comment on above: Order Comment: Speci men Type: BLOOD SPECIMENOrdering Facility: [facility] Address: [address] [place] [address] Performed By: #### 5 7021-8 ####[facility]ALL[facility] [id number] [address] [place] Erythrocyte distribution width (RBC) [Ratio] 12.8 % Normal 11.5-15.0 [facility] Comment on above: Order Comment: Speci men Type: BLOOD SPECIMENOrdering Facility: [facility] Address: [address] [place] [address] Performed By: #### 5 7021-8 ####[facility]ALL[facility] [id number] [place] [address] [place] Hematocrit (Bld) [Volume fraction] 41.9 % Normal 39.0-51.0 [facility] Comment on above: Order Comment: Speci men Type: BLOOD SPECIMENOrdering Facility: [facility] Address: [address] [place] [address] Performed By: #### 5 7021-8 ####[facility] ERNCLIA [id number] [place] [address] [place] Hemoglobin (Bld) [Mass/Vol] 14.0 g/dL Normal 13.0-17.0 [facility] Comment on above: Order Comment: Speci men Type: BLOOD SPECIMENOrdering Facility: [facility] Address: [address] [place] [address] Performed By: #### 5 7021-8 ####[facility] [id number] [place] [address] [place] Immature granulocytes (Bld) [#/Vol] 0.04 10*3/uL Normal <0.10 [facility] Comment on above: Order Comment: Speci men Type: BLOOD SPECIMENOrdering Facility: [facility] Address: [address] [place] [address] Performed By: #### 5 7021-8 ####[facility] [id number] [address] [place] Immature granulocytes/100 WBC (Bld) 0.4 % Normal [facility] Comment on above: Order Comment: Speci men Type: BLOOD SPECIMENOrdering Facility: [facility] Address: [address] [place] [address] Performed By: #### 5 7021-8 ####[facility] [id number] [place] [address] [place] Lymphocytes (Bld) [#/Vol] 0.82 10*3/uL Low 1.00-4.00 [facility] Comment on above: Order Comment: Speci men Type: BLOOD SPECIMENOrdering Facility: [facility] Address: [address] [place] [address] Performed By: #### 5 7021-8 ####[facility] ERNCLIA [id number] [place] [address] [place] Lymphocytes/100 WBC (Bld) 9.2 % Normal [facility] Comment on above: Order Comment: Speci men Type: BLOOD SPECIMENOrdering Facility: [facility] Address: [address] [place] [address] Performed By: #### 5 7021-8 ####[facility] DONNA [id number] [place] [address] [place] MCH (RBC) [Entitic mass] 31.3 pg Normal 26.0-34.0 [facility] Comment on above: Order Comment: Speci men Type: BLOOD SPECIMENOrdering Facility: [facility] Address: [address] [place] [address] Performed By: #### 5 7021-8 ####[facility] ERNCOR[facility] [id number] [place] [address] [place] MCHC (RBC) [Mass/Vol] 33.4 g/dL Normal 30.5-36.0 [facility] Comment on above: Order Comment: Speci men Type: BLOOD SPECIMENOrdering Facility: [facility] Address: [address] [place] [address] Performed By: #### 5 7021-8 ####[facility] ERMASONOREM COMMUN[facility]PITAL [id number] [place] [address] [place] MCV (RBC) [Entitic vol] 93.5 fL Normal 80.0-100.0 C [facility] Comment on above: Order Comment: Speci men Type: BLOOD SPECIMENOrdering Facility: [facility] Address: [address] [place] [address] Performed By: #### 5 7021-8 ####[facility] ERMASONOREM COMMUN[facility] [id number] [place] [address] [place] Monocytes (Bld) [#/Vol] 0.70 10*3/uL Normal <0.87 [facility] Comment on above: Order Comment: Speci men Type: BLOOD SPECIMENOrdering Facility: [facility] Address: [address] [place] [address] Performed By: #### 5 7021-8 ####[facility] MILLWNCLIA [id number] [place] [address] [place] Monocytes/100 WBC (Bld) 7.8 % Normal [facility] Comment on above: Order Comment: Speci men Type: BLOOD SPECIMENOrdering Facility: [facility] Address: [address] [place] [address] Performed By: #### 5 7021-8 ####[facility] ERNCLIA [id number] [place] [address] [place] Neutrophils (Bld) [#/Vol] 6.92 10*3/uL Normal 1.45-7.50 [facility] Comment on above: Order Comment: Speci men Type: BLOOD SPECIMENOrdering Facility: [facility] Address: [address] [place] [address] Performed By: #### 5 7021-8 ####[facility] [id number] [place] [address] [place] Neutrophils/100 WBC (Bld) 77.7 % Normal [facility] Comment on above: Order Comment: Speci men Type: BLOOD SPECIMENOrdering Facility: [facility] Address: [address] [place] [address] Performed By: #### 5 7021-8 ####[facility] [id number] [place] [address] [place] Nucleated RBC (Bld) [#/Vol] 10*3/uL Normal <0.01 [facility] Comment on above: Order Comment: Speci men Type: BLOOD SPECIMENOrdering Facility: [facility] Address: [address] [place] [address] Performed By: #### 5 7021-8 ####[facility] [id number] [place] [address] [place] Nucleated RBC/100 WBC (Bld) [Ratio] 0.0 /100 WBC Normal [facility] Comment on above: Order Comment: Speci men Type: BLOOD SPECIMENOrdering Facility: [facility] Address: [address] [place] [address] Performed By: #### 5 7021-8 ####[facility] ERNCA [id number] [place] [address] [place] Platelet mean volume (Bld) [Entitic vol] 10.3 fL Normal 9.0-12.7 [facility] Comment on above: Order Comment: Speci men Type: BLOOD SPECIMENOrdering Facility: [facility] Address: [address] [place] [address] Performed By: #### 5 7021-8 ####[facility] ERNCA [id number] [place] [address] [place] Platelets (Bld) [#/Vol] 285 10*3/uL Normal 150-400 [facility] Comment on above: Order Comment: Speci men Type: BLOOD SPECIMENOrdering Facility: [facility] Address: [address] [place] [address] Performed By: #### 5 7021-8 ####[facility] ERNCA [id number] [place] [address] [place] RBC (Bld) [#/Vol] 4.48 10*6/uL Normal 4.20-6.00 [facility] Comment on above: Order Comment: Speci men Type: BLOOD SPECIMENOrdering Facility: [facility] Address: [address] [place] [address] Performed By: #### 5 7021-8 ####[facility] ERNCLIA [id number] [place] [address] [place] WBC (Bld) [#/Vol] 8.92 10*3/uL Normal 3.70-11.00 [facility] Comment on above: Order Comment: Speci men Type: BLOOD SPECIMENOrdering Facility: [facility] Address: [place] [id number] Performed By: #### 5 7021-8 ####[facility] CAROLIN THOMPSON [id number] [place] [address] [place] CNOVSPon 09-19-2023 CNOVSP Visit (SP) Office (HEMAWS) ----- ALEX CARPENTER ([id number]) 1935 M Date Time Provider Department 09/19/23 10:40 AM EVERETT ALDRICH During your visit today, we recorded the following information about you: Temperature Pulse Blood pressure Weight 97.9 degrees 73/minute 105/70 91.2 kg Everett Aldrich MD 09/19/2023 2:46 PM Signed (Elements copied from my note dated June 27, 2023, have been reviewed and updated where appropriate, and all reflect current assessment and medical decision making from today's encounter, September 19, 2023) HISTORY OF PRESENT ILLNESS: Alex Carpenter is a 87 year old male diagnosed with prostate cancer in 1998, status post radical prostatectomy for [place] score 6 = 3+3. He had been on intermittent ADT for biochemical failure, elevated PSA, in the past. Component Latest Ref Rng AND Units 03/04/2019 03/06/2019 07/05/2019 09/23/2020 PSA 0.00 - 2.59 ng/mL 29.01 (H) 33.08 (H) 0.25 0.92 He had not had LHRH injection until recently when his PSA was over 210 by his primary care physician because of generalized aches and pain. Subsequent CT scan of the abdomen pelvis and bone scan recently showed findings suggestive of metastatic deposit along the anterior aspect of the right seventh rib in the pedicle of the left side of T12. There is left hemisacrum activity as well. Degenerative changes noted in both knees and both shoulder joints. His bone density test within the last year showed evidence of osteopenia. Started back on androgen deprivation therapy with Eligard in September 2021, due to PSA 246. He had no hot flashes, increased fatigue or muscle weakness. He denied difficulty with urination. He had general arthritis pain in both knee and shoulder along with generalized aching. No change in weight or appetite. CT scans negative, bone scan suggested bone mets Previous therapy: 1) Apalutamide. Started September 2021. Stopped in June 2022 due to generalized weakness and malaise. Current treatment: 1) Lupron every 3 months. 2) Zometa every 6 months Interim history: Doing well. CLINICAL IMPRESSION: Prostate cancer metastatic to bone. Doing well on GnRH agonist alone RECOMMENDATION/PLAN: 1. Continue lupron q 3 months, will add back apalutamide if PSA continues to climb. 2. Zometa every 3 months 3. Follow PSA Written and verbal health teaching given to patient, patient verbalizes understanding and agrees with treatment plan. PAST MEDICAL HISTORY Diagnosis Date Bone metastases 10/08/2021 HTN (hypertension) Malignant neoplasm 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) Prostate cancer (HCC) SCC (squamous cell carcinoma), face PAST SURGICAL HISTORY Procedure Laterality Date PROSTATECTOMY;RADICAL RETROPUBIC 1996 FAMILY HISTORY Problem Relation Age of Onset Breast Cancer Mother Cancer Father Social History Tobacco Use Smoking status: Never Smokeless tobacco: Never Vaping Use Vaping Use: Never used Substance Use Topics Alcohol use: No Drug use: Never ALLERGIES: ALLERGIES Allergen Reactions Lisinopril Cough CURRENT OUTPATIENT MEDICATIONS: ergocalciferol 50,000 unit capsule (VITAMIN D2, DRISDOL) Take 1 capsule by mouth one time a week. OTC PRODUCT Take 1,500 mg by mouth two times a day. Lipozene meloxicam (MOBIC) 7.5 mg tablet Take 7.5 mg by mouth once daily. magnesium hydroxide (MAGNESIA ORAL) Take 250 mg by mouth once daily. POTASSIUM-99 ORAL Take 1 tablet by mouth once daily. hydroCHLOROthiazide (HYDRODIURIL, ESIDRIX) 12.5 mg capsule Take 12.5 mg by mouth once daily. losartan (COZAAR) 25 mg tablet Take 25 mg by mouth once daily. metoprolol tartrate, short acting, (LOPRESSOR) 50 mg tablet Take 50 mg by mouth twice daily. atorvastatin 40 mg tablet Take 20 mg by mouth every other day. aspirin, enteric coated 81 mg EC tablet Take 81 mg by mouth once daily. GLUCOSAM/MSM/CHONDR/VIT C/HYAL (GLUCOSAMINE-CHONDROITIN- MSM ORAL) Take 1 tablet by mouth two times a day. nitroglycerin sublingual 0.3 mg SL tablet Dissolve 0.3 mg under the tongue every 5 minutes as needed. Calcium Carbonate-Vitamin D3 600mg (1,000mg) -1,000 unit ORAL Tab Take 1 tablet by mouth once daily. oxybutynin XL (DITROPAN XL) 5 mg 24 hr tablet Take 1 tablet by mouth once daily. ubidecarenone (ULTRA COQ10 ORAL) Take by mouth once daily. apalutamide (ERLEADA) 60 mg tablet Take 3 tablets (180mg) by mouth once daily. (Patient not taking: Reported on 07/11/2022) Fish Oil-Shields-3 Fatty Acids 500-300 mg ORAL Cap Take one(1) tablet daily. REVIEW OF SYSTEMS: GENERAL: No fever, night sweats, weight loss or malaise. All other reviewed and negative other than HPI. PHYSICAL EXAMINATION: VITAL SIGNS: BP 105/70 Pulse 73 Temp (Src) 97.9 (Temporal) Wt 201 lb (91.2kg) SpO2 98% GENERAL APPEARANCE: Well appearing, in no acute distress, alert and oriented x3, well-hydrated, well nourished. I spent (more content not included)... Normal [facility] Comprehensive metabolic 2000 panelon 09-19-2023 Albumin [Mass/Vol] 4.0 g/dL Normal 3.9-4.9 [facility] Comment on above: Order Comment: Speci men Type: BLOOD SPECIMENOrdering Facility: [facility] Address: [address] [place] [address] Performed By: #### 2 4323-8 ####[facility] CAROLIN [facility] CENTERBarbre [id number] [place] [id number] [place] ALP [Catalytic activity/Vol] 88 U/L Normal 38-113 [facility] Comment on above: Order Comment: Speci men Type: BLOOD SPECIMENOrdering Facility: [facility] Address: [address] [place] [address] Performed By: #### 2 4323-8 ####[facility] CAROLIN MILLTOWNCLIA [id number] [place] [address] [place] ALT [Catalytic activity/Vol] 11 U/L Normal 10-54 [facility] Comment on above: Order Comment: Speci men Type: BLOOD SPECIMENOrdering Facility: [facility] Address: [address] [place] [address] Performed By: #### 2 4323-8 ####[facility] MILLTOWNCLIA [id number] [place] [address] [place] Anion gap [Moles/Vol] 11 mmol/L Normal 8-15 [facility] Comment on above: Order Comment: Speci men Type: BLOOD SPECIMENOrdering Facility: [facility] Address: [address] [place] [address] Performed By: #### 2 4323-8 ####[facility] MILLWNCLIA [id number] [place] [address] [place] AST [Catalytic activity/Vol] 18 U/L Normal 14-40 [facility] Comment on above: Order Comment: Speci men Type: BLOOD SPECIMENOrdering Facility: [facility] Address: [address] [place] [address] Performed By: #### 2 4323-8 ####[facility] CAROLIN MILLTOWNCLIA [id number] [place] [address] [place] Bilirubin [Mass/Vol] 0.6 mg/dL Normal 0.2-1.3 [facility] Comment on above: Order Comment: Speci men Type: BLOOD SPECIMENOrdering Facility: [facility] Address: [address] [place] [address] Performed By: #### 2 4323-8 ####[facility] MILLWNCLIA [id number] [place] [address] [place] Calcium [Mass/Vol] 9.5 mg/dL Normal 8.5-10.2 [facility] Comment on above: Order Comment: Speci men Type: BLOOD SPECIMENOrdering Facility: [facility] Address: [address] [place] [address] Performed By: #### 2 4323-8 ####[facility] MILLTOWNCLIA [id number] [place] [address] [place] Chloride [Moles/Vol] 103 mmol/L Normal 98-107 [facility] Comment on above: Order Comment: Speci men Type: BLOOD SPECIMENOrdering Facility: [facility] Address: [address] [place] [address] Performed By: #### 2 4323-8 ####[facility] ERNCLIA [id number] [place] [address] [place] CO2 [Moles/Vol] 30 mmol/L Normal 22-30 [facility] Comment on above: Order Comment: Speci men Type: BLOOD SPECIMENOrdering Facility: [facility] Address: [address] [place] [address] Performed By: #### 2 4323-8 ####[facility] [place] GROVENCLIA [id number] [place] [address] [place] Creatinine [Mass/Vol] 1.09 mg/dL Normal 0.73-1.22 [facility] Comment on above: Order Comment: Speci men Type: BLOOD SPECIMENOrdering Facility: [facility] Address: [address] [place] [address] Performed By: #### 2 4323-8 ####[facility] [place] GROVENCLIA [id number] [place] [address] [place] Creatinine and Glomerular filtration rate.predicted panel (S/P/Bld) 66 mL/min/1.73m??? Normal >=60 [facility] Comment on above: Order Comment: Edgard wood Type: BLOOD SPECIMENOrdering Facility: [facility] Address: [address] [place] [address] Result Comment: Isabel mated Glomerular Filtration Rate (eGFR) is calculated using the 2020 CKD-EPI creatinine equation. This equation utilizes serum creatinine, sex, and age as parameters. The creatinine assay has traceable calibration to isotope dilution-mass spectrometry. Refer to KDIGO guidelines for clinical interpretation. In patients with unstable renal function, e.g. those with acute kidney injury, the eGFR may not accurately reflect actual GFR. Performed By: #### 2 4323-8 ####[facility] [id number] [place] [address] [place] Glucose [Mass/Vol] 109 mg/dL High 74-99 [facility] Comment on above: Order Comment: Edgard wood Type: BLOOD SPECIMENOrdering Facility: [facility] Address: [address] [place] [address] Result Comment: The [place] Diabetes Association (ADA) provides guidance for cutoff values for fasting glucose and random glucose. The ADA defines fasting as no caloric intake for at least 8 hours. Fasting plasma glucose results between 100 to 125 mg/dL indicate increased risk for diabetes (prediabetes). Fasting plasma glucose results greater than or equal to 126 mg/dL meet the criteria for diagnosis of diabetes. In the absence of unequivocal hyperglycemia, results should be confirmed by repeat testing. In a patient with classic symptoms of hyperglycemia or hyperglycemic crisis, random plasma glucose results greater than or equal to 200 mg/dL meet the criteria for diagnosis of diabetes. Reference: Standards of Medical Care in Diabetes 2016, [place] Diabetes Association. Diabetes Care. 2016.39(Suppl 1). Performed By: #### 2 4323-8 ####[facility] [id number] [place] [address] [place] Potassium [Moles/Vol] 3.2 mmol/L Low 3.7-5.1 [facility] Comment on above: Order Comment: Edgard wood Type: BLOOD SPECIMENOrdering Facility: [facility] Address: [address] [place] [address] Performed By: #### 2 4323-8 ####[facility] SHEAWNCLIA [id number] [place] [address] [place] Protein [Mass/Vol] 6.3 g/dL Normal 6.3-8.0 [facility] Comment on above: Order Comment: Speci men Type: BLOOD SPECIMENOrdering Facility: [facility] Address: [address] [place] [address] Performed By: #### 2 4323-8 ####[facility] ERNCLIA [id number] [place] [address] [place] Sodium [Moles/Vol] 144 mmol/L Normal 136-144 [facility] Comment on above: Order Comment: Speci men Type: BLOOD SPECIMENOrdering Facility: [facility] Address: [address] [place] [address] Performed By: #### 2 4323-8 ####[facility] ADRIANEAGLE GROVENCLIA [id number] [place] [address] [place] Urea nitrogen [Mass/Vol] 18 mg/dL Normal 9-24 [facility] Comment on above: Order Comment: Speci men Type: BLOOD SPECIMENOrdering Facility: [facility] Address: [address] [place] [address] Performed By: #### 2 4323-8 ####[facility] [id number] [place] [address] [place] [facility] Prostate specific Ag [Mass/Vol] 0.15 ng/mL Normal <2.60 [facility] Comment on above: Order Comment: Speci men Type: BLOOD SPECIMENOrdering Facility: [facility] Address: [address] [place] [address] Result Comment: Tota l PSA test methodology used is the Electrochemiluminescence Immunoassay by [employer]. Total PSA values by differing methodologies cannot be interchanged. Performed By: #### 2 857-1 ####[facility] LABCLIA [id number] [place] [id number] [place] Absolute lymphocyte countOrd ered By: Marocs Ferraro on 10-15-2022 Lymphocytes Auto (Unsp spec) [#/Vol] 1.36 10*3/uL 0.83-4.51 [facility] Basophil percentageOrdered B y: Marcos Ferraro on 10-15-2022 Basophils/100 WBC (Bld) 0.4 % 0-1 [facility] Bilirubin [Mass/Vol] 1.10 mg/dL 0.20-1.00 [facility] Comment on above: For patients on eltr ombopag therapy, use of Dimension Harmans TBIL is not recommended. Chloride [Moles/Vol] 108 mmol/L 98-107 [facility] Eosinophils/100 WBC (Bld) 3.0 % 0-5 [facility] Glucose [Mass/Vol] 124 mg/dL 74-106 [facility] Comment on above: Fasting Glucose resu lt from 100 to 125 mg/dL suggests IMPAIRED HOMEOSTASIS per A.D.A. criteria. Neutrophils (Bld) [#/Vol] 7.1 10*3/uL 2.0-7.7 [facility] Neutrophils/100 WBC (Bld) 73.5 % 47-70 [facility] Potassium [Moles/Vol] 3.1 mmol/L 3.5-5.1 [facility] Protein [Mass/Vol] 6.6 g/dL 6.4-8.2 [facility] Sodium [Moles/Vol] 143 mmol/L 136-145 [facility] WBC (Bld) [#/Vol] 9.7 10*3/uL 4.4-11.0 [facility] Blood erythrocytes count (nu mber/volume)Ordered By: Marcos Ferraro on 10-15-2022 RBC (Bld) [#/Vol] 4.38 10*6/uL 4.6-6.2 [facility] Blood hemoglobin measurement (mass/volume)Ordered By: Marcos Ferraro on 10-15-2022 Hemoglobin (Bld) [Mass/Vol] 13.9 g/dL 13.0-16.5 [facility] Blood lymphocytes/100 leukoc ytesOrdered By: Marcos Pay on 10-15-2022 Lymphocytes/100 WBC (Bld) 14.1 % 19-41 [facility] Blood monocytes/100 leukocyt esOrdered By: Marcos Pay on 10-15-2022 Monocytes/100 WBC (Bld) 8.5 % 0-10 [facility] Blood platelet mean volumeOr dered By: Marcos Pay on 10-15-2022 Platelet mean volume (Bld) [Entitic vol] 11.2 fL 6.2-12.0 [facility] Determination of erythrocyte mean corpuscular volume (MCV)Ordered By: Marcos Ronan on 10-15-2022 MCV (RBC) [Entitic vol] 93.2 fL 80-94 [facility] Hematocrit Auto (Bld) [Volum e fraction]Ordered By: Marcos Ronan on 10-15-2022 Hematocrit (Bld) [Volume fraction] 40.8 % 40-54 [facility] Laboratory - Chemistry and C hemistry - challengeOrdered By: Marcos Ronan on 10-15-2022 ALP [Catalytic activity/Vol] 90 U/L 45-117 [facility] ALT [Catalytic activity/Vol] 21 U/L 16-61 [facility] CO2 [Moles/Vol] 30.0 mmol/L 21.0-32.0 [facility] Globulin (S) [Mass/Vol] 3.1 g/dL 2.2-4.2 [facility] Lipase [Catalytic activity/Vol] 29 U/L 13-75 [facility] Comment on above: Please note:LIPASE r evised reference range effective 22. New Lipase methodology. Expected to produce lower values than the previous assay method. NEW Reference Range: 13 - 75 U/L Urea nitrogen/Creatinine [Mass ratio] 18.6 mg/mg 10-20 [facility] Laboratory - Hematology and Cell countsOrdered By: Marcos Ronan on 10-15-2022 Erythrocyte distribution width (RBC) [Entitic vol] 43.7 fL 35.1-43.9 [facility] Erythrocyte distribution width (RBC) [Ratio] 12.7 % 11.6-14.6 [facility] Immature granulocytes/100 WBC (Bld) 0.500 % 0.0-0.9 [facility] Comment on above: IG% - Immature Granu locytes (promyelocytes, myelocytes and metamyelocytes) > 1% indicates that a LEFT SHIFT is Present. MCH (RBC) [Entitic mass] 31.7 pg 27.0-32.0 [facility] Nucleated RBC/100 WBC (Bld) [Ratio] 0 % 0-5 [facility] MCHC Auto (RBC) [Mass/Vol]Or dered By: Marcos Ferraro on 10-15-2022 MCHC (RBC) [Mass/Vol] 34.1 g/dL 32-36 [facility] No Panel InformationOrdered By: Marcos Ferraro on 10-15-2022 Estimated Creatinine Clearance Calc 43.47 ml/min [facility] Estimated GFR (MDRD) Amer 75 mL/min >60 [facility] Comment on above: GFR Calc Estimated GFR (MDRD) Non-Af Amer 62 mL/min >60 [facility] Comment on above: Non- GFR Calc Platelets bldOrdered By: Davide Ferraro on 10-15-2022 Platelets (Bld) [#/Vol] 254 10*3/uL 150-450 [facility] Serum or plasma albumin lilly urement (mass/volume)Ordered By: Marcos Ferraro on 10-15-2022 Albumin [Mass/Vol] 3.5 g/dL 3.2-5.0 [facility] Serum or plasma albumin/glob ulin mass ratioOrdered By: Marcos Ferraro on 10-15-2022 Albumin/Globulin [Mass ratio] 1.1 {ratio} 0.9-2.4 [facility] Serum or plasma calcium lilly urement (mass/volume)Ordered By: Marcos Ferraro on 10-15-2022 Calcium [Mass/Vol] 9.0 mg/dL 8.5-10.1 [facility] Serum or plasma creatinine m easurement (mass/volume)Ordered By: Marcos Ferraro on 10-15-2022 Creatinine [Mass/Vol] 1.18 mg/dL 0.70-1.30 [facility] Comment on above: The validity of the calculated GFR & GFRAA in patients over 70 years has not been determined. Clinical correlation is essential. Serum or plasma urea nitroge n measurement (mass/volume)Ordered By: Marcos Ferraro on 10-15-2022 Urea nitrogen [Mass/Vol] 22 mg/dL 7-18 [facility] Thin prep Papanicolaou smear with manual screeningOrdered By: Marcos Ferraro on 10-15-2022 Thin prep Papanicolaou smear with manual screening 21 U/L 15-37 [facility] Thin prep Papanicolaou smear with manual screening 5 5-15 [facility] Laboratory - Chemistry and C hemistry - challengeOrdered By: Dr. Subramanian on 07-28-2022 Albumin [Mass/Vol] 3.5 g/dL 2.9-4.4 [facility] Cobalamin (Vitamin B12) [Mass/Vol] 220 pg/mL 211-911 [facility] No Panel InformationOrdered By: Dr. Subramanian on 07-28-2022 Addendum Document Comment . [facility] Comment on above: The SPE pattern appe ars unremarkable. Evidence ofmonoclonal protein is not apparent.Performed at: [id number] [address] [id number] Director: Hilton Gallegos PhD, Phone: [phone] [id number] 0.2 g/dL 0.0-0.4 [facility] [id number]-7-[id number] 0.7 g/dL 0.4-1.0 [facility] Gamma Globulins 0.6 g/dL 0.4-1.8 [facility] Thyroid Stimulating Hormone (TSH) 2.71 uIU/mL 0.358-3.74 [facility] Vitamin D 25-Hydroxy 65.8 ng/mL [facility] Comment on above: Vitamin D 25(OH) Sta tus Range Deficiency <20 ng/mL (50nmol/L) Insufficiency 20 - 30 ng/mL (50 - 75 nmol/L) Sufficiency 30 - 100 ng/mL (75 - 250 nmol/L) Toxicity >100 ng/mL (>250 nmol/L) Protein Fractions Elph [Inte rp]Ordered By: Dr. Subramanian on 07-28-2022 Protein Fractions [Interp] Comment . [facility] Comment on above: Protein electrophore sis scan will follow via computer,mail, or jewelry salesperson delivery. Serum albumin to globulin ra claudette by protein electrophoresisOrdered By: Dr. Subramanian on 07-28-2022 Albumin/Globulin Elph [Mass ratio] 1.5 0.7-1.7 [facility] Serum globulin measurement ( mass/volume)Ordered By: Dr. Subramanian on 07-28-2022 Globulin (S) [Mass/Vol] 2.4 g/dL 2.2-3.9 [facility] Serum or plasma beta globuli n measurement by electrophoresis (mass/volume)Ordered By: Dr. Subramanian on 07-28-2022 Beta globulin Elph [Mass/Vol] 0.9 g/dL 0.7-1.3 [facility] Serum or plasma folate measu rement (mass/volume)Ordered By: Dr. Subramanian on 07-28-2022 Folate [Mass/Vol] 10.30 ng/mL 3.1-55.4 [facility] Thin prep Papanicolaou smear with manual screeningOrdered By: Dr. Subramanian on 07-28-2022 Thin prep Papanicolaou smear with manual screening See comment [facility] Comment on above: NOT OBSERVED Total protein bloodOrdered B y: Dr. Subramanian on 07-28-2022 Protein [Mass/Vol] 5.9 g/dL 6.0-8.5 [facility] Absolute lymphocyte countOrd ered By: Dr. Staton on 06-22-2022 Lymphocytes Auto (Unsp spec) [#/Vol] 0.93 10*3/uL 0.83-4.51 [facility] Basophil percentageOrdered B y: Dr. Staton on 06-22-2022 Basophils/100 WBC (Bld) 0.7 % 0-1 [facility] Bilirubin [Mass/Vol] 0.40 mg/dL 0.20-1.00 [facility] Comment on above: For patients on eltr ombopag therapy, use of Dimension Harmans TBIL is not recommended. Chloride [Moles/Vol] 109 mmol/L 98-107 [facility] Eosinophils/100 WBC (Bld) 5.5 % 0-5 [facility] Glucose [Mass/Vol] 112 mg/dL 74-106 [facility] Comment on above: Fasting Glucose resu lt from 100 to 125 mg/dL suggests IMPAIRED HOMEOSTASIS per A.D.A. criteria. Neutrophils (Bld) [#/Vol] 5.7 10*3/uL 2.0-7.7 [facility] Neutrophils/100 WBC (Bld) 70.4 % 47-70 [facility] Potassium [Moles/Vol] 4.0 mmol/L 3.5-5.1 [facility] Protein [Mass/Vol] 6.9 g/dL 6.4-8.2 [facility] Sodium [Moles/Vol] 142 mmol/L 136-145 [facility] WBC (Bld) [#/Vol] 8.1 10*3/uL 4.4-11.0 [facility] Basophil percentage 0 SEEN /hpf 0-5 [facility] Bilirubin Test strip Ql (U)O rdered By: Dr. Staton on 06-22-2022 Bilirubin Ql (U) Negative Negative [facility] Blood erythrocytes count (nu mber/volume)Ordered By: Dr. Staton on 06-22-2022 RBC (Bld) [#/Vol] 4.48 10*6/uL 4.6-6.2 [facility] Blood hemoglobin measurement (mass/volume)Ordered By: Dr. Staton on 06-22-2022 Hemoglobin (Bld) [Mass/Vol] 14.2 g/dL 13.0-16.5 [facility] Blood lymphocytes/100 leukoc ytesOrdered By: Dr. Staton on 06-22-2022 Lymphocytes/100 WBC (Bld) 11.6 % 19-41 [facility] Blood monocytes/100 leukocyt esOrdered By: Dr. Staton on 06-22-2022 Monocytes/100 WBC (Bld) 11.1 % 0-10 [facility] Blood platelet mean volumeOr dered By: Dr. Staton on 06-22-2022 Platelet mean volume (Bld) [Entitic vol] 10.3 fL 6.2-12.0 [facility] Determination of erythrocyte mean corpuscular volume (MCV)Ordered By: Dr. Staton on 06-22-2022 MCV (RBC) [Entitic vol] 96.4 fL 80-94 [facility] Hematocrit Auto (Bld) [Volum e fraction]Ordered By: Dr. Staton on 06-22-2022 Hematocrit (Bld) [Volume fraction] 43.2 % 40-54 [facility] Ketones Test strip Ql (U)Ord ered By: Dr. Staton on 06-22-2022 Ketones Ql (U) Negative Negative [facility] Laboratory - Chemistry and C hemistry - challengeOrdered By: Dr. Staton on 06-22-2022 ALP [Catalytic activity/Vol] 93 U/L 45-117 [facility] ALT [Catalytic activity/Vol] 17 U/L 16-61 [facility] CO2 [Moles/Vol] 28.0 mmol/L 21.0-32.0 [facility] Globulin (S) [Mass/Vol] 3.3 g/dL 2.2-4.2 [facility] Urea nitrogen/Creatinine [Mass ratio] 18.2 mg/mg 10-20 [facility] Laboratory - Hematology and Cell countsOrdered By: Dr. Staton on 06-22-2022 Erythrocyte distribution width (RBC) [Entitic vol] 45.6 fL 35.1-43.9 [facility] Erythrocyte distribution width (RBC) [Ratio] 12.8 % 11.6-14.6 [facility] Immature granulocytes/100 WBC (Bld) 0.700 % 0.0-0.9 [facility] Comment on above: IG% - Immature Granu locytes (promyelocytes, myelocytes and metamyelocytes) > 1% indicates that a LEFT SHIFT is Present. MCH (RBC) [Entitic mass] 31.7 pg 27.0-32.0 [facility] Nucleated RBC/100 WBC (Bld) [Ratio] 0 % 0-5 [facility] MCHC Auto (RBC) [Mass/Vol]Or dered By: Dr. Staton on 06-22-2022 MCHC (RBC) [Mass/Vol] 32.9 g/dL 32-36 [facility] Mucus LM Ql (Urine sed)Order ed By: Dr. Staton on 06-22-2022 Mucus Ql (Urine sed) 0 SEEN /hpf [facility] Nitrite Test strip Ql (U)Ord ered By: Dr. Staton on 06-22-2022 Nitrite Ql (U) Negative Negative [facility] No Panel InformationOrdered By: Dr. Staton on 06-22-2022 Estimated Creatinine Clearance Calc 43.18 ml/min [facility] Estimated GFR (MDRD) Amer 73 mL/min >60 [facility] Comment on above: GFR Calc Estimated GFR (MDRD) Non-Af Amer 61 mL/min >60 [facility] Comment on above: Non- GFR Calc Platelets bldOrdered By: Dr. Staton on 06-22-2022 Platelets (Bld) [#/Vol] 282 10*3/uL 150-450 [facility] Protein Test strip Ql (U)Ord ered By: Dr. Staton on 06-22-2022 Protein Ql (U) Negative Negative [facility] Serum or plasma albumin lilly urement (mass/volume)Ordered By: Dr. Staton on 06-22-2022 Albumin [Mass/Vol] 3.6 g/dL 3.2-5.0 [facility] Serum or plasma albumin/glob ulin mass ratioOrdered By: Dr. Staton on 06-22-2022 Albumin/Globulin [Mass ratio] 1.1 {ratio} 0.9-2.4 [facility] Serum or plasma calcium lilly urement (mass/volume)Ordered By: Dr. Staton on 06-22-2022 Calcium [Mass/Vol] 8.8 mg/dL 8.5-10.1 [facility] Serum or plasma creatinine m easurement (mass/volume)Ordered By: Dr. Staton on 06-22-2022 Creatinine [Mass/Vol] 1.21 mg/dL 0.70-1.30 [facility] Comment on above: The validity of the calculated GFR & GFRAA in patients over 70 years has not been determined. Clinical correlation is essential. Serum or plasma urea nitroge n measurement (mass/volume)Ordered By: Dr. Staton on 06-22-2022 Urea nitrogen [Mass/Vol] 22 mg/dL 7-18 [facility] Squamous epithelial cells de tection in urine sediment by light microscopyOrdered By: Dr. Staton on 06-22-2022 Epithelial cells.squamous LM Ql (Urine sed) 0 SEEN /hpf 0-5 [facility] Thin prep Papanicolaou smear with manual screeningOrdered By: Dr. Staton on 06-22-2022 Thin prep Papanicolaou smear with manual screening 17 U/L 15-37 [facility] Thin prep Papanicolaou smear with manual screening 5 5-15 [facility] Urine blood detectionOrdered By: Dr. Staton on 06-22-2022 RBC Ql (U) Negative Negative [facility] RBC Ql (U) 0 SEEN /hpf 0-5 [facility] Urine clarityOrdered By: Dr. Staton on 06-22-2022 Clarity (U) Clear Clear [facility] Urine color determinationOrd ered By: Dr. Staton on 06-22-2022 Color (U) Yellow Yellow [facility] Urine glucose detectionOrder ed By: Dr. Staton on 06-22-2022 Glucose Ql (U) Normal mg/dl Normal [facility] Urine leukocyte esterase det ection by dipstickOrdered By: Dr. Staton on 06-22-2022 Leukocyte esterase Test strip Ql (U) Negative Negative [facility] Urine pHOrdered By: Dr. Whitney maloney on 06-22-2022 pH (U) 7.0 [pH] 5.0 - 8.0 [facility] Urine sediment bacteria coun t by microscopy (number/high power field)Ordered By: Dr. Staton on 06-22-2022 Bacteria LM.HPF (Urine sed) [#/Area] RARE /hpf None Seen [facility] Urine specific gravity measu rementOrdered By: Dr. Staton on 06-22-2022 Specific gravity (U) [Rel density] 1.010 1.002-1.030 [facility] Urobilinogen Auto test strip Ql (U)Ordered By: Dr. Staton on 06-22-2022 Urobilinogen Ql (U) Normal mg/dl Normal [facility] VITAMIN D 25 HYDROXYon 10-08 25-hydroxyvitamin D3 [Mass/Vol] 24.6 ng/mL Low 31.0 - 80.0 ng/mL [facility] UA DIP, URINE (POC)on 2021 BILIRUBIN UA (POCT) Negative Negative [facility] CLARITY UA (POCT) Cloudy [facility] COLOR UA (POCT) Dark yellow [facility] GLUCOSE UA (POCT) Negative Negative mg/dL [facility] HEMOGLOBIN/BLOOD UA (POCT) Negative Negative [facility] KETONE UA (POCT) Negative Negative mg/dL [facility] LEUKOCYTES UA (POCT) Negative [facility] NITRITE UA (POCT) Negative Negative [facility] PH UA (POCT) 7.5 4.5 - 8.0 [facility] Protein Ql (U) Negative Negative mg/dL [facility] SPECIFIC GRAVITY UA (POCT) 1.020 1.005 - 1.030 [facility] UROBILINOGEN UA (POCT) 1.0 E.U./dL Vijaya l E.U./dL [facility] Basophil percentageon 2021 Chloride [Moles/Vol] 107 mmol/L 98-107 [facility] Work Phone: Glucose [Mass/Vol] 109 mg/dL 74-106 [facility] Work Phone: Comment on above: Fasting Glucose resu lt from 100 to 125 mg/dL suggests IMPAIRED HOMEOSTASIS per A.D.A. criteria. Potassium [Moles/Vol] 3.2 mmol/L 3.5-5.1 [facility] Work Phone: Sodium [Moles/Vol] 143 mmol/L 136-145 [facility] Work Phone: Erythrocyte sedimentation ra brigid 09-17-2021 ESR (Bld) [Velocity] 28 mm/h 0-20 [facility] Work Phone: Interpretation of Borrelia b urgdorferi antibody assayon 09-17-2021 B. burgdorferi Ab (S) [Interp] REF LAB [facility] Work Phone: Laboratory - Chemistry and C hemistry - challengeon 09-17-2021 CO2 [Moles/Vol] 28.0 mmol/L 21.0-32.0 [facility] Work Phone: Magnesium [Mass/Vol] 2.4 mg/dL 1.6-2.6 [facility] Work Phone: Urea nitrogen/Creatinine [Mass ratio] 21.9 mg/mg 10-20 [facility] Work Phone: No Panel Informationon 09-17 C-Reactive Protein High Sensitivity 5.03 mg/L <3.00 [facility] Work Phone: Comment on above: Low Relative Risk of CVD <1.0 mg/L Average Relative Risk of CVD 1.0 - 3.0 mg/L High Relative Risk of CVD >3.0 mg/L Estimated GFR (MDRD) Amer 96 mL/min >60 [facility] Work Phone: Comment on above: GFR Calc Estimated GFR (MDRD) Non-Af Amer 79 mL/min >60 [facility] Work Phone: Comment on above: Non- GFR Calc Prostate Specific Antigen Total 246.00 ng/mL 0.0-4.0 [facility] Work Phone: Comment on above: This test was perfor med using the TPSA assay method for [employer] chemistry system. Values obtained with differentassay methods cannot be used interchangably.When changing PSA assays in the course of monitoring apatient, additional sequential testing should be carriedout to confirm baseline values. Serum or plasma C reactive p rotein measurement (mass/volume)on 09-17-2021 CRP [Mass/Vol] 5.97 mg/L 0.0-3.0 [facility] Work Phone: Comment on above: C-Reactive Protein ( CRP) provides useful information for thediagnosis, therapy and monitoring of inflammatory processesand associated diseases. For the evaluation of Relative Riskfor Cardiovascular Disease, a High Sensitivity CRP (HSCRP)should be ordered. Serum or plasma calcium lilly urement (mass/volume)on 09-17-2021 Calcium [Mass/Vol] 9.0 mg/dL 8.5-10.1 [facility] Work Phone: Serum or plasma creatinine m easurement (mass/volume)on 09-17-2021 Creatinine [Mass/Vol] 0.96 mg/dL 0.70-1.30 [facility] Work Phone: Comment on above: The validity of the calculated GFR & GFRAA in patients over 70 years has not been determined. Clinical correlation is essential. Serum or plasma urea nitroge n measurement (mass/volume)on 09-17-2021 Urea nitrogen [Mass/Vol] 21 mg/dL 7-18 [facility] Work Phone: Thin prep Papanicolaou smear with manual screeningon 09-17-2021 Thin prep Papanicolaou smear with manual screening 8 5-15 [facility] Work Phone: Thin prep Papanicolaou smear with manual screening Negative Negative [facility] Work Phone: Comment on above: Lyme Antibody Negati veNo laboratory evidence of infection with B. burgdorferi(Lyme disease). Negative results may occur in patientsrecently infected (greater than or equal to 14 days) withB. burgdorferi. If recent infection is suspected, repeattesting on a new sample collected in 7 to 14 days isrecommended.Performed at: [facility] [id number] Director: Hilton Gallegos PhD, Phone: [phone] Absolute lymphocyte counton 08-31-2021 Lymphocytes Auto (Unsp spec) [#/Vol] 1.28 10*3/uL 0.83-4.51 [facility] Work Phone: Basophil percentageon 2021 Basophils/100 WBC (Bld) 0.3 % 0-1 [facility] Work Phone: Bilirubin [Mass/Vol] 0.80 mg/dL 0.20-1.00 [facility] Work Phone: Comment on above: For patients on eltr ombopag therapy, use of Dimension Harmans TBIL is not recommended. Chloride [Moles/Vol] 104 mmol/L 98-107 [facility] Work Phone: Eosinophils/100 WBC (Bld) 0.8 % 0-5 [facility] Work Phone: Glucose [Mass/Vol] 125 mg/dL 74-106 [facility] Work Phone: Comment on above: Fasting Glucose resu lt from 100 to 125 mg/dL suggests IMPAIRED HOMEOSTASIS per A.D.A. criteria. Neutrophils (Bld) [#/Vol] 16.0 10*3/uL 2.0-7.7 [facility] Work Phone: Neutrophils/100 WBC (Bld) 83.5 % 47-70 [facility] Work Phone: Potassium [Moles/Vol] 4.5 mmol/L 3.5-5.1 [facility] Work Phone: Comment on above: Moderate Hemolysis, Result may be falsely increased. Protein [Mass/Vol] 6.8 g/dL 6.4-8.2 [facility] Work Phone: Sodium [Moles/Vol] 138 mmol/L 136-145 [facility] Work Phone: WBC (Bld) [#/Vol] 19.1 10*3/uL 4.4-11.0 [facility] [facility] Work Phone: Basophil percentage 0 SEEN /hpf 0-[address] [facility]: Bilirubin Test strip Ql (U)o n 08-31-2021 Bilirubin Ql (U) Negative Negative [facility] Work Phone: Blood erythrocytes count (nu mber/volume)on 08-31-2021 RBC (Bld) [#/Vol] 4.35 10*6/uL 4.6-6.2 [facility] Work Phone: Blood hemoglobin measurement (mass/volume)on 08-31-2021 Hemoglobin (Bld) [Mass/Vol] 13.4 g/dL 13.0-16.5 [facility] Work Phone: Blood lymphocytes/100 leukoc yteson 08-31-2021 Lymphocytes/100 WBC (Bld) 6.7 % 19-41 [facility] Work Phone: Blood monocytes/100 leukocyt eson 08-31-2021 Monocytes/100 WBC (Bld) 7.7 % 0-10 [facility] Work Phone: Blood platelet mean volumeon 08-31-2021 Platelet mean volume (Bld) [Entitic vol] 9.7 fL 6.2-12.0 [facility] Work Phone: Calcium oxalate crystals det ection in urine sediment by light microscopyon 08-31-2021 Calcium oxalate crystals LM Ql (Urine sed) RARE /hpf [facility] Work Phone: Determination of erythrocyte mean corpuscular volume (MCV)on 08-31-2021 MCV (RBC) [Entitic vol] 91.0 fL 80-94 [facility] Work Phone: Hematocrit Auto (Bld) [Volum e fraction]on 08-31-2021 Hematocrit (Bld) [Volume fraction] 39.6 % 40-54 [facility] Work Phone: Ketones Test strip Ql (U)on 08-31-2021 Ketones Ql (U) Negative Negative [facility] Work Phone: [phone] Laboratory - Chemistry and C hemistry - challengeon 08-31-2021 ALP [Catalytic activity/Vol] 95 U/L 45-117 [facility] Work Phone: ALT [Catalytic activity/Vol] 20 U/L 16-61 [facility] Work Phone: CO2 [Moles/Vol] 30.0 mmol/L 21.0-32.0 [facility] Work Phone: [phone] Globulin (S) [Mass/Vol] 3.9 g/dL 2.2-4.2 [facility] Work Phone: Urea nitrogen/Creatinine [Mass ratio] 15.4 mg/mg 10-20 [facility] Work Phone: Laboratory - Hematology and Cell countson 08-31-2021 Erythrocyte distribution width (RBC) [Entitic vol] 43.2 fL 35.1-43.9 [facility] Work Phone: Erythrocyte distribution width (RBC) [Ratio] 13.0 % 11.6-14.6 [facility] Work Phone: Immature granulocytes/100 WBC (Bld) 1.000 % 0.0-0.9 [facility] Work Phone: Comment on above: IG% - Immature Granu locytes (promyelocytes, myelocytes and metamyelocytes) > 1% indicates that a LEFT SHIFT is Present. MCH (RBC) [Entitic mass] 30.8 pg 27.0-32.0 [facility] Work Phone: Nucleated RBC/100 WBC (Bld) [Ratio] 0 % 0-5 [facility] Work Phone: MCHC Auto (RBC) [Mass/Vol]on 08-31-2021 MCHC (RBC) [Mass/Vol] 33.8 g/dL 32-36 [facility] Work Phone: Mucus LM Ql (Urine sed)on Mucus Ql (Urine sed) 0 SEEN /hpf [facility] Work Phone: Nitrite Test strip Ql (U)on 08-31-2021 Nitrite Ql (U) Negative Negative [facility] Work Phone: No Panel Informationon 08-31 Estimated Creatinine Clearance Calc 44.66 ml/min [facility] Work Phone: Estimated GFR (MDRD) Amer 76 mL/min >60 [facility] Work Phone: Comment on above: GFR Calc Estimated GFR (MDRD) Non-Af Amer 63 mL/min >60 [facility] Work Phone: Comment on above: Non- GFR Calc Troponin I High Sensitivity 12 pg/mL 3.0-78.0 [facility] Work Phone: Comment on above: Please Note: New Selin t Units and Gender Specific Reference Ranges. For more information see Policy Stat Procedure Harmans High Sensitivity Troponin (TNIH) and attachments. Platelets bldon 08-31-2021 Platelets (Bld) [#/Vol] 334 10*3/uL 150-450 [facility] Work Phone: Protein Test strip Ql (U)on 08-31-2021 Protein Ql (U) Negative Negative [facility] Work Phone: Serum or plasma albumin lilly urement (mass/volume)on 08-31-2021 Albumin [Mass/Vol] 2.9 g/dL 3.2-5.0 [facility] Work Phone: Serum or plasma albumin/glob ulin mass ratioon 08-31-2021 Albumin/Globulin [Mass ratio] 0.7 {ratio} 0.9-2.4 [facility] Work Phone: Serum or plasma calcium lilly urement (mass/volume)on 08-31-2021 Calcium [Mass/Vol] 8.7 mg/dL 8.5-10.1 [facility] Work Phone: Serum or plasma creatinine m easurement (mass/volume)on 08-31-2021 Creatinine [Mass/Vol] 1.17 mg/dL 0.70-1.30 [facility] Work Phone: Comment on above: The validity of the calculated GFR & GFRAA in patients over 70 years has not been determined. Clinical correlation is essential. Serum or plasma urea nitroge n measurement (mass/volume)on 08-31-2021 Urea nitrogen [Mass/Vol] 18 mg/dL 7-18 [facility] Work Phone: Squamous epithelial cells de tection in urine sediment by light microscopyon 08-31-2021 Epithelial cells.squamous LM Ql (Urine sed) 0 SEEN /hpf 0-5 [facility] Work Phone: Thin prep Papanicolaou smear with manual screeningon 08-31-2021 Thin prep Papanicolaou smear with manual screening 43 U/L 15-37 [facility] Work Phone: Comment on above: Moderate Hemolysis, Result may be falsely increased. Thin prep Papanicolaou smear with manual screening 4 5-15 [facility] Work Phone: Urine blood detectionon 08-18 RBC Ql (U) 10 /ul Negative [facility] Work Phone: RBC Ql (U) 0-5 SEEN /hpf 0-5 [facility] Work Phone: Urine clarityon 08-31-2021 Clarity (U) Clear Clear [facility] Work Phone: Urine color determinationon 08-31-2021 Color (U) Yellow Yellow [facility] Work Phone: Urine glucose detectionon Glucose Ql (U) Normal mg/dl Normal [facility] Work Phone: Urine leukocyte esterase det ection by dipstickon 08-31-2021 Leukocyte esterase Test strip Ql (U) Negative Negative [facility] Work Phone: Urine pHon 08-31-2021 pH (U) 6.0 [pH] 5.0 - 8.0 [facility] Work Phone: Urine sediment bacteria coun t by microscopy (number/high power field)on 08-31-2021 Bacteria LM.HPF (Urine sed) [#/Area] RARE /hpf None Seen [facility] Work Phone: Urine specific gravity measu rementon 08-31-2021 Specific gravity (U) [Rel density] 1.025 1.002-1.030 [facility] Work Phone: Urobilinogen Auto test strip Ql (U)on 08-31-2021 Urobilinogen Ql (U) Normal mg/dl Normal [facility] Work Phone: Basophil percentageon 2021 Chloride [Moles/Vol] 103 mmol/L 98-107 [facility] Work Phone: Glucose [Mass/Vol] 126 mg/dL 74-106 [facility] Work Phone: Comment on above: Fasting Glucose resu lt greater than or equal to 126 mg/dL suggests DIABETES MELLITUS per A.D.A. criteria. Potassium [Moles/Vol] 3.8 mmol/L 3.5-5.1 [facility] Work Phone: Sodium [Moles/Vol] 140 mmol/L 136-145 [facility] Work Phone: Interpretation of Borrelia b urgdorferi antibody assayon 08-24-2021 B. burgdorferi Ab (S) [Interp] REF LAB [facility] Work Phone: Laboratory - Chemistry and C hemistry - challengeon 08-24-2021 CO2 [Moles/Vol] 31.0 mmol/L 21.0-32.0 [facility] Work Phone: Magnesium [Mass/Vol] 2.4 mg/dL 1.6-2.6 [facility] Work Phone: Urea nitrogen/Creatinine [Mass ratio] 15.9 mg/mg 10-20 [facility] Work Phone: No Panel Informationon 08-24 Estimated GFR (MDRD) Amer 70 mL/min >60 [facility] Work Phone: Comment on above: GFR Calc Estimated GFR (MDRD) Non-Af Amer 58 mL/min >60 [facility] Work Phone: Comment on above: Non- GFR Calc Serum or plasma C reactive p rotein measurement (mass/volume)on 08-24-2021 CRP [Mass/Vol] 107.00 mg/L 0.0-3.0 [facility] Work Phone: Comment on above: C-Reactive Protein ( CRP) provides useful information for thediagnosis, therapy and monitoring of inflammatory processesand associated diseases. For the evaluation of Relative Riskfor Cardiovascular Disease, a High Sensitivity CRP (HSCRP)should be ordered. Serum or plasma calcium lilly urement (mass/volume)on 08-24-2021 Calcium [Mass/Vol] 8.9 mg/dL 8.5-10.1 [facility] Work Phone: Serum or plasma creatinine m easurement (mass/volume)on 08-24-2021 Creatinine [Mass/Vol] 1.26 mg/dL 0.70-1.30 [facility] Work Phone: Comment on above: The validity of the calculated GFR & GFRAA in patients over 70 years has not been determined. Clinical correlation is essential. Serum or plasma urea nitroge n measurement (mass/volume)on 08-24-2021 Urea nitrogen [Mass/Vol] 20 mg/dL 7-18 [facility] Work Phone: Thin prep Papanicolaou smear with manual screeningon 08-24-2021 Thin prep Papanicolaou smear with manual screening 6 5-15 [facility] Work Phone: Thin prep Papanicolaou smear with manual screening Negative Negative [facility] Work Phone: Comment on above: Lyme Antibody Negati veNo laboratory evidence of infection with B. burgdorferi(Lyme disease). Negative results may occur in patientsrecently infected (greater than or equal to 14 days) withB. burgdorferi. If recent infection is suspected, repeattesting on a new sample collected in 7 to 14 days isrecommended.Performed at: [id number] [id number] Director: Hilton Gallegos PhD, Phone: [phone] Absolute lymphocyte counton 08-16-2021 Lymphocytes Auto (Unsp spec) [#/Vol] 0.92 10*3/uL 0.83-4.51 [facility] Work Phone: [phone] Basophil percentageon 2021 Basophils/100 WBC (Bld) 0.2 % 0-1 [facility] Work Phone: [phone] Chloride [Moles/Vol] 101 mmol/L 98-107 [facility] Work Phone: [phone] Eosinophils/100 WBC (Bld) 0.6 % 0-5 [facility] Work Phone: [phone] Glucose [Mass/Vol] 130 mg/dL 74-106 [facility] Work Phone: Comment on above: Fasting Glucose resu lt greater than or equal to 126 mg/dL suggests DIABETES MELLITUS per A.D.A. criteria. Neutrophils (Bld) [#/Vol] 10.1 10*3/uL 2.0-7.7 [facility] Work Phone: [phone] Neutrophils/100 WBC (Bld) 81.7 % 47-70 [facility] Work Phone: Potassium [Moles/Vol] 3.0 mmol/L 3.5-5.1 [facility] Work Phone: Sodium [Moles/Vol] 136 mmol/L 136-145 [facility]: WBC (Bld) [#/Vol] 12.4 10*3/uL 4.4-11.0 [facility] Blood erythrocytes count (nu mber/volume)on 08-16-2021 RBC (Bld) [#/Vol] 4.07 10*6/uL 4.6-6.2 [facility] Work Phone: Blood hemoglobin measurement (mass/volume)on 08-16-2021 Hemoglobin (Bld) [Mass/Vol] 12.7 g/dL 13.0-16.5 [facility] Work Phone: Blood lymphocytes/100 leukoc yteson 08-16-2021 Lymphocytes/100 WBC (Bld) 7.4 % 19-41 [facility] Work Phone: Blood monocytes/100 leukocyt eson 08-16-2021 Monocytes/100 WBC (Bld) 9.3 % 0-10 [facility] Work Phone: Blood platelet mean volumeon 08-16-2021 Platelet mean volume (Bld) [Entitic vol] 10.1 fL 6.2-12.0 [facility] Work Phone: Determination of erythrocyte mean corpuscular volume (MCV)on 08-16-2021 MCV (RBC) [Entitic vol] 93.1 fL 80-94 [facility] Work Phone: Erythrocyte sedimentation ra brigid 08-16-2021 ESR (Bld) [Velocity] 36 mm/h 0-[address] [facility] Work Phone: Hematocrit Auto (Bld) [Volum e fraction]on 08-16-2021 Hematocrit (Bld) [Volume fraction] 37.9 % 40-54 [facility] Work Phone: Laboratory - Chemistry and C hemistry - challengeon 08-16-2021 CO2 [Moles/Vol] 31.0 mmol/L 21.0-32.0 [facility] Work Phone: Urea nitrogen/Creatinine [Mass ratio] 14.5 mg/mg 10-20 [facility] Work Phone: Laboratory - Hematology and Cell countson 08-16-2021 Erythrocyte distribution width (RBC) [Entitic vol] 43.8 fL 35.1-43.9 [facility] Work Phone: Erythrocyte distribution width (RBC) [Ratio] 12.8 % 11.6-14.6 [facility] Work Phone: Immature granulocytes/100 WBC (Bld) 0.800 % 0.0-0.9 [facility] Work Phone: Comment on above: IG% - Immature Granu locytes (promyelocytes, myelocytes and metamyelocytes) > 1% indicates that a LEFT SHIFT is Present. MCH (RBC) [Entitic mass] 31.2 pg 27.0-32.0 [facility] Work Phone: Nucleated RBC/100 WBC (Bld) [Ratio] 0 % 0-5 [facility] Work Phone: MCHC Auto (RBC) [Mass/Vol]on 08-16-2021 MCHC (RBC) [Mass/Vol] 33.5 g/dL 32-36 [facility] Work Phone: No Panel Informationon 08-16 Estimated Creatinine Clearance Calc 48.36 ml/min [facility] Work Phone: Estimated GFR (MDRD) Amer 82 mL/min >60 [facility] Work Phone: Comment on above: GFR Calc Estimated GFR (MDRD) Non-Af Amer 68 mL/min >60 [facility] Work Phone: Comment on above: Non- GFR Calc Platelets bldon 08-16-2021 Platelets (Bld) [#/Vol] 302 10*3/uL 150-450 [facility] Work Phone: Serum or plasma C reactive p rotein measurement (mass/volume)on 08-16-2021 CRP [Mass/Vol] 104.00 mg/L 0.0-3.0 [facility] Work Phone: Comment on above: C-Reactive Protein ( CRP) provides useful information for thediagnosis, therapy and monitoring of inflammatory processesand associated diseases. For the evaluation of Relative Riskfor Cardiovascular Disease, a High Sensitivity CRP (HSCRP)should be ordered. Serum or plasma calcium lilly urement (mass/volume)on 08-16-2021 Calcium [Mass/Vol] 8.6 mg/dL 8.5-10.1 [facility] Work Phone: Serum or plasma creatinine m easurement (mass/volume)on 08-16-2021 Creatinine [Mass/Vol] 1.10 mg/dL 0.70-1.30 [facility] Work Phone: Comment on above: The validity of the calculated GFR & GFRAA in patients over 70 years has not been determined. Clinical correlation is essential. Serum or plasma urea nitroge n measurement (mass/volume)on 08-16-2021 Urea nitrogen [Mass/Vol] 16 mg/dL 7-18 [facility] Work Phone: Thin prep Papanicolaou smear with manual screeningon 08-16-2021 Thin prep Papanicolaou smear with manual screening 4 5-15 [facility] Work Phone: Vital Signs Date Time Vital Sign Value Performing Clinician Facility 08-20-2024 13:13-0400 Body mass index (BMI) [Ratio] 29.05 kg/m2 Crissy Mai Work Phone: [facility] 08-20-2024 13:13-0400 Body temperature 98.49 [degF] Crissyleonel Mai Work Phone: [facility] 08-20-2024 13:13-0400 Body weight 84.14 kg Crissyleonel Mai Work Phone: [facility] 08-20-2024 13:13-0400 Diastolic blood pressure 82 mm[Hg] Crissy Mai Work Phone: [facility] 08-20-2024 13:13-0400 Heart rate 83 /min Crissy Mai Work Phone: [facility] 08-20-2024 13:13-0400 SaO2% (BldA) [Mass fraction] 98 % Crissy Mai Work Phone: [facility] 08-20-2024 13:13-0400 Systolic blood pressure 142 mm[Hg] Crissy Mai Work Phone: [facility] 06-27-2024 10:38-0400 Body height 172.[address] Otto Subramanian MD Work Phone: [facility] 06-27-2024 10:38-0400 Body mass index (BMI) [Ratio] 28.5 kg/m2 Dr. Otto Subramanian MD Work Phone: [facility] 06-27-2024 10:38-0400 Body weight 85.[address] Otto Subramanian MD Work Phone: [facility] 06-27-2024 10:38-0400 Diastolic blood pressure 80 mm[Hg] Dr. Otto Subramanian MD Work Phone: [facility] 06-27-2024 10:38-0400 Heart rate 87 /min Dr. Otto Subramanian MD Work Phone: [facility] 06-27-2024 10:38-0400 Respiratory rate 18 /min Dr. Otto Subramanian MD Work Phone: [facility] 06-27-2024 10:38-0400 SaO2% (BldA) [Mass fraction] 97 % Dr. Otto Subramanian MD Work Phone: [facility] 06-27-2024 10:38-0400 Systolic blood pressure 134 mm[Hg] Dr. Otto Subramanian MD Work Phone: [facility] 06-18-2024 13:43-0400 Diastolic blood pressure 73 mm[Hg] Leisa SALAZAR-C Work Phone: [facility] 06-18-2024 13:43-0400 Heart rate 82 /min Leisa Robb PA-C Work Phone: [facility] 06-18-2024 13:43-0400 SaO2% (BldA) [Mass fraction] 97 % Leisa Galeanoer PA-C Work Phone: [facility] 06-18-2024 13:43-0400 Systolic blood pressure 123 mm[Hg] Leisa Robb PA-C Work Phone: [facility] 05-28-2024 12:47-0400 Body mass index (BMI) [Ratio] 30.07 kg/m2 Everett Aldrich MD Work Phone: [facility] 05-28-2024 12:47-0400 Body temperature 98.1 [degF] Everett Aldrich MD Work Phone: [facility] 05-28-2024 12:47-0400 Body weight 87.09 kg Everett Aldrich MD Work Phone: [facility] 05-28-2024 12:47-0400 Diastolic blood pressure 73 mm[Hg] Everett Aldrich MD Work Phone: [facility] 05-28-2024 12:47-0400 Heart rate 110 /min Everett Aldrich MD Work Phone: [facility] 05-28-2024 12:47-0400 SaO2% (BldA) [Mass fraction] 97 % Everett Aldrich MD Work Phone: [facility] 05-28-2024 12:47-0400 Systolic blood pressure 111 mm[Hg] Everett Aldrich MD Work Phone: [facility] 05-24-2024 10:52-0500 Body mass index (BMI) [Ratio] 30.67 kg/m2 Kaushal Stockton Jr., MD Work Phone: [facility] 05-24-2024 10:52-0500 Body weight 88.81 kg Kaushal Stockton Jr., MD Work Phone: [facility] 05-24-2024 10:52-0500 Diastolic blood pressure 86 mm[Hg] Kaushal Stockton Jr., MD Work Phone: [facility] 05-24-2024 10:52-0500 Heart rate 65 /min Kaushal Stockton Jr., MD Work Phone: [facility] 05-24-2024 10:52-0500 SaO2% (BldA) [Mass fraction] 96 % Kaushal Stockton Jr., MD Work Phone: [facility] 05-24-2024 10:52-0500 Systolic blood pressure 142 mm[Hg] Kaushal tSockton Jr., MD Work Phone: [facility] 03-05-2024 10:11-0500 Body mass index (BMI) [Ratio] 31.72 kg/m2 Everett Aldrich MD Work Phone: [facility] 03-05-2024 10:11-0500 Body temperature 98.49 [degF] Everett Aldrich MD Work Phone: [facility] 03-05-2024 10:11-0500 Body weight 91.85 kg Everett Aldrich MD Work Phone: [facility] 03-05-2024 10:11-0500 Diastolic blood pressure 81 mm[Hg] Everett Aldrich MD Work Phone: [facility] 03-05-2024 10:11-0500 Heart rate 81 /min Everett Aldrich MD Work Phone: [facility] 03-05-2024 10:11-0500 SaO2% (BldA) [Mass fraction] 96 % Everett Aldrich MD Work Phone: [facility] 03-05-2024 10:11-0500 Systolic blood pressure 129 mm[Hg] Everett Aldrich MD Work Phone: [facility] 01-23-2024 16:05-0500 Body height 170.2 cm Pranav Tate PA-C Work Phone: [facility] 01-23-2024 16:05-0500 Body mass index (BMI) [Ratio] 30.54 kg/m2 Pranav Tate PA-C Work Phone: [facility] 01-23-2024 16:05-0500 Body temperature 97.3 [degF] Pranav Tate PA-C Work Phone: [facility] 01-23-2024 16:05-0500 Body weight 88.45 kg Pranav Tate PA-C Work Phone: [facility] 01-23-2024 16:05-0500 Diastolic blood pressure 60 mm[Hg] Pranav Tate PA-C Work Phone: [facility] 01-23-2024 16:05-0500 Heart rate 89 /min Pranav Tate PA-C Work Phone: [facility] 01-23-2024 16:05-0500 Respiratory rate 20 /min Pranav Tate PA-C Work Phone: [facility] 01-23-2024 16:05-0500 SaO2% (BldA) [Mass fraction] 96 % Pranav Tate PA-C Work Phone: [facility] 01-23-2024 16:05-0500 Systolic blood pressure 112 mm[Hg] Pranav Tate PA-C Work Phone: [facility] 12-12-2023 09:47-0400 Body mass index (BMI) [Ratio] 31.09 kg/m2 Crissyleonel Mai Work Phone: [facility] 12-12-2023 09:47-0400 Body temperature 98.49 [degF] Crissy Mai Work Phone: [facility] 12-12-2023 09:47-0400 Body weight 90.04 kg Crissyleonel Mai Work Phone: [facility] 12-12-2023 09:47-0400 Diastolic blood pressure 62 mm[Hg] Crissy Mai Work Phone: [facility] 12-12-2023 09:47-0400 Heart rate 79 /min Crissy Mai Work Phone: [facility] 12-12-2023 09:47-0400 SaO2% (BldA) [Mass fraction] 97 % Crissy Mai Work Phone: [facility] 12-12-2023 09:47-0400 Systolic blood pressure 103 mm[Hg] Crissy Mai Work Phone: [facility] 09-19-2023 10:13-0400 Body mass index (BMI) [Ratio] 31.48 kg/m2 Everett Aldrich MD Work Phone: [facility] 09-19-2023 10:13-0400 Body temperature 97.9 [degF] Everett Aldrich MD Work Phone: [facility] 09-19-2023 10:13-0400 Body weight 91.17 kg Everett Aldrich MD Work Phone: [facility] 09-19-2023 10:13-0400 Diastolic blood pressure 70 mm[Hg] Everett Aldrich MD Work Phone: [facility] 09-19-2023 10:13-0400 Heart rate 73 /min Everett Aldrich MD Work Phone: [facility] 09-19-2023 10:13-0400 SaO2% (BldA) [Mass fraction] 98 % Everett Aldrich MD Work Phone: [facility] 09-19-2023 10:13-0400 Systolic blood pressure 105 mm[Hg] Everett Aldrich MD Work Phone: [facility] 06-27-2023 10:56-0400 Body temperature 98.2 [degF] Everett Aldrich MD Work Phone: [facility] 06-27-2023 10:56-0400 Body weight 91.85 kg Everett Aldrich MD Work Phone: [facility] 06-27-2023 10:56-0400 Diastolic blood pressure 74 mm[Hg] Everett Aldrich MD Work Phone: [facility] 06-27-2023 10:56-0400 Heart rate 82 /min Everett Aldrich MD Work Phone: [facility] 06-27-2023 10:56-0400 SaO2% (BldA) [Mass fraction] 99 % Everett Aldrich MD Work Phone: [facility] 06-27-2023 10:56-0400 Systolic blood pressure 112 mm[Hg] Everett Aldrich MD Work Phone: [facility] 05-23-2023 10:26-0500 Diastolic blood pressure 82 mm[Hg] Dr. Otto Subramanian Work Phone: [facility] 05-23-2023 10:26-0500 Systolic blood pressure 120 mm[Hg] Dr. Otto Subramanian Work Phone: [facility] 05-23-2023 10:02-0500 Body height 172.[address] Otto Subramanian Work Phone: [facility] 05-23-2023 10:02-0500 Body mass index (BMI) [Ratio] 31 kg/m2 Dr. Otto Subramanian Work Phone: [facility] 05-23-2023 10:02-0500 Body weight 92.[address] Otto Subramanian Work Phone: [facility] 05-23-2023 10:02-0500 Heart rate 93 /min Dr. Otto Subramanian Work Phone: [facility] 05-23-2023 10:02-0500 Respiratory rate 18 /min Dr. Otto Subramanian Work Phone: [facility] 05-23-2023 10:02-0500 SaO2% (BldA) [Mass fraction] 96 % Dr. Otto Subramanian Work Phone: [facility] 03-03-2023 09:10-0500 Body temperature 97.39 [degF] Treatment Wstr Work Phone: [facility] 03-03-2023 09:10-0500 Diastolic blood pressure 75 mm[Hg] Treatment [facility]str Work Phone: [facility] 03-03-2023 09:10-0500 Heart rate 82 /min Treatment [facility] Work Phone: [facility] 03-03-2023 09:10-0500 SaO2% (BldA) [Mass fraction] 94 % [facility] Work Phone: [facility] 03-03-2023 09:10-0500 Systolic blood pressure 154 mm[Hg] Treatment [facility] Work Phone: [facility] 11-09-2022 14:14-0400 Body temperature 97.7 [degF] Treatment [facility] Work Phone: [facility] 11-09-2022 14:14-0400 Body weight 95.48 kg Treatment [facility] Work Phone: [facility] 11-09-2022 14:14-0400 Diastolic blood pressure 81 mm[Hg] Treatment [facility] Work Phone: [facility] 11-09-2022 14:14-0400 Heart rate 79 /min [facility] Work Phone: [facility] 11-09-2022 14:14-0400 SaO2% (BldA) [Mass fraction] 96 % [facility] Work Phone: [facility] 11-09-2022 14:14-0400 Systolic blood pressure 150 mm[Hg] Treatment Wstr Work Phone: [facility] 10-20-2022 09:18-0400 Body height 170.2 cm Everett Aldrich MD Work Phone: [facility] 10-20-2022 09:18-0400 Body temperature 98.2 [degF] Everett Aldrich MD Work Phone: [facility] 10-20-2022 09:18-0400 Body weight 95.03 kg Everett Aldrich MD Work Phone: [facility] 10-20-2022 09:18-0400 Diastolic blood pressure 82 mm[Hg] Everett Aldrich MD Work Phone: [facility] 10-20-2022 09:18-0400 Heart rate 74 /min Everett Aldrich MD Work Phone: [facility] 10-20-2022 09:18-0400 Respiratory rate 14 /min Everett Aldrich MD Work Phone: [facility] 10-20-2022 09:18-0400 SaO2% (BldA) [Mass fraction] 96 % Everett Aldrich MD Work Phone: [facility] 10-20-2022 09:18-0400 Systolic blood pressure 128 mm[Hg] Everett Aldrich MD Work Phone: [facility] 10-17-2022 11:52-0400 Body height 172.72 cm [facility] 10-17-2022 11:52-0400 Body temperature 97.1 [degF] [facility] 10-17-2022 11:52-0400 Diastolic blood pressure 121 mm[Hg] [facility] 10-17-2022 11:52-0400 Heart rate 89 /min [facility] 10-17-2022 11:52-0400 Respiratory rate 16 /min [facility] 10-17-2022 11:52-0400 SaO2% (BldA) [Mass fraction] 95 % [facility] 10-17-2022 11:52-0400 Systolic blood pressure 189 mm[Hg] [facility] 10-15-2022 15:23-0400 Diastolic blood pressure 87 mm[Hg] [facility] 10-15-2022 15:23-0400 Systolic blood pressure 180 mm[Hg] [facility] 10-15-2022 11:48-0400 Heart rate 74 /min [facility] 10-15-2022 11:48-0400 Respiratory rate 16 /min [facility] 10-15-2022 11:48-0400 SaO2% (BldA) [Mass fraction] 95 % [facility] 10-15-2022 10:18-0400 Body height 172.72 cm [facility] 10-15-2022 10:18-0400 Body mass index (BMI) [Ratio] 31.1 kg/m2 [facility] 10-15-2022 10:18-0400 Body temperature 97.8 [degF] [facility] 10-15-2022 10:18-0400 Body weight 92.94 kg [facility] 10-12-2022 14:35-0400 Body temperature 97.5 [degF] Treatment Wstr Work Phone: [facility] 10-12-2022 14:35-0400 Diastolic blood pressure 79 mm[Hg] Treatment Wstr Work Phone: [facility] 10-12-2022 14:35-0400 Heart rate 92 /min Treatment Wstr Work Phone: [facility] 10-12-2022 14:35-0400 Respiratory rate 16 /min Treatment Wstr Work Phone: [facility] 10-12-2022 14:35-0400 SaO2% (BldA) [Mass fraction] 93 % Treatment Wstr Work Phone: [facility] 10-12-2022 14:35-0400 Systolic blood pressure 135 mm[Hg] Treatment Wstr Work Phone: [facility] 09-14-2022 13:42-0400 Body temperature 97.5 [degF] Treatment Wstr Work Phone: [facility] 09-14-2022 13:42-0400 Diastolic blood pressure 64 mm[Hg] Treatment Wstr Work Phone: [facility] 09-14-2022 13:42-0400 Heart rate 75 /min Treatment Wstr Work Phone: [facility] 09-14-2022 13:42-0400 Systolic blood pressure 131 mm[Hg] Treatment Wstr Work Phone: [facility] 08-18-2022 13:30-0400 Body temperature 97.9 [degF] Treatment Wstr Work Phone: [facility] 08-18-2022 13:30-0400 Body weight 97.3 kg Treatment Wstr Work Phone: [facility] 08-18-2022 13:30-0400 Diastolic blood pressure 84 mm[Hg] Treatment Wstr Work Phone: [facility] 08-18-2022 13:30-0400 Heart rate 84 /min Treatment Wstr Work Phone: [facility] 08-18-2022 13:30-0400 SaO2% (BldA) [Mass fraction] 97 % Treatment Wstr Work Phone: [facility] 08-18-2022 13:30-0400 Systolic blood pressure 159 mm[Hg] Treatment Wstr Work Phone: [facility] 07-28-2022 08:55-0400 Body temperature 97.3 [degF] Bree Cornejo BANK COMPLIANCE OFFICER.COLD MILL INSPECTOR Work Phone: [facility] 07-28-2022 08:55-0400 Body weight 96.16 kg [place] Cornejo BANK COMPLIANCE OFFICER.COLD MILL INSPECTOR Work Phone: [facility] 07-28-2022 08:55-0400 Diastolic blood pressure 66 mm[Hg] Bree Cornejo BANK COMPLIANCE OFFICER.COLD MILL INSPECTOR Work Phone: [facility] 07-28-2022 08:55-0400 Heart rate 71 /min Bree Cornejo BANK COMPLIANCE OFFICER.COLD MILL INSPECTOR Work Phone: [facility] 07-28-2022 08:55-0400 SaO2% (BldA) [Mass fraction] 97 % [place] Cornejo BANK COMPLIANCE OFFICER.COLD MILL INSPECTOR Work Phone: [facility] 07-28-2022 08:55-0400 Systolic blood pressure 119 mm[Hg] Bree Cornejo BANK COMPLIANCE OFFICER.COLD MILL INSPECTOR Work Phone: [facility] 07-18-2022 10:50-0400 Body temperature 97.81 [degF] Treatment Wstr Work Phone: [facility] 07-18-2022 10:50-0400 Diastolic blood pressure 76 mm[Hg] Treatment Wstr Work Phone: [facility] 07-18-2022 10:50-0400 Heart rate 76 /min Treatment Wstr Work Phone: [facility] 07-18-2022 10:50-0400 Respiratory rate 16 /min Treatment Wstr Work Phone: [facility] 07-18-2022 10:50-0400 SaO2% (BldA) [Mass fraction] 94 % Treatment Wstr Work Phone: [facility] 07-18-2022 10:50-0400 Systolic blood pressure 118 mm[Hg] Treatment Wstr Work Phone: [facility] 07-11-2022 14:28-0400 Body temperature 98.1 [degF] Denilson Masci DO Work Phone: [facility] 07-11-2022 14:28-0400 Body weight 96.16 kg Denilson Masci DO Work Phone: [facility] 07-11-2022 14:28-0400 Diastolic blood pressure 74 mm[Hg] Denilson Masci DO Work Phone: [facility] 07-11-2022 14:28-0400 Heart rate 84 /min Denilson Masci DO Work Phone: [facility] 07-11-2022 14:28-0400 SaO2% (BldA) [Mass fraction] 97 % Denilson Masci DO Work Phone: [facility] 07-11-2022 14:28-0400 Systolic blood pressure 110 mm[Hg] Denilson Masci DO Work Phone: [facility] 06-22-2022 04:09-0400 Diastolic blood pressure 89 mm[Hg] [facility] 06-22-2022 04:09-0400 Heart rate 85 /min [facility] 06-22-2022 04:09-0400 Respiratory rate 20 /min [facility] 06-22-2022 04:09-0400 SaO2% (BldA) [Mass fraction] 96 % [facility] 06-22-2022 04:09-0400 Systolic blood pressure 150 mm[Hg] [facility] 06-21-2022 23:46-0400 Body mass index (BMI) [Ratio] 30.5 kg/m2 [facility] 06-21-2022 23:46-0400 Body weight 91.2 kg [facility] 06-21-2022 23:30-0400 Body height 172.72 cm [facility] 06-21-2022 23:30-0400 Body temperature 97 [degF] [facility] 05-23-2022 13:32-0500 Body temperature 97.81 [degF] Treatment Wstr Work Phone: [facility] 05-23-2022 13:32-0500 Body weight 96.16 kg Treatment Wstr Work Phone: [facility] 05-23-2022 13:32-0500 Diastolic blood pressure 88 mm[Hg] Treatment Wstr Work Phone: [facility] 05-23-2022 13:32-0500 Heart rate 70 /min Treatment Wstr Work Phone: [facility] 05-23-2022 13:32-0500 Respiratory rate 16 /min Treatment Wstr Work Phone: [facility] 05-23-2022 13:32-0500 SaO2% (BldA) [Mass fraction] 96 % Treatment Wstr Work Phone: [facility] 05-23-2022 13:32-0500 Systolic blood pressure 152 mm[Hg] Treatment Wstr Work Phone: [facility] 05-05-2022 11:05-0500 Body temperature 97.59 [degF] Injection Wstr Work Phone: [facility] 05-05-2022 11:05-0500 Body weight 96.16 kg Injection Wstr Work Phone: [facility] 05-05-2022 11:05-0500 Diastolic blood pressure 85 mm[Hg] Injection Wstr Work Phone: [facility] 05-05-2022 11:05-0500 Heart rate 78 /min Injection Wstr Work Phone: [facility] 05-05-2022 11:05-0500 Systolic blood pressure 136 mm[Hg] Injection Wstr Work Phone: [facility] 02-01-2022 16:48-0500 Body height 170.2 cm Pranav Tate PA-C Work Phone: [facility] 02-01-2022 16:48-0500 Body temperature 97.11 [degF] Pranav Tate PA-C Work Phone: [facility] 02-01-2022 16:48-0500 Body weight 92.99 kg Pranav Tate PA-C Work Phone: [facility] 02-01-2022 16:48-0500 Diastolic blood pressure 70 mm[Hg] Pranav Tate PA-C Work Phone: [facility] 02-01-2022 16:48-0500 Heart rate 88 /min Pranav Tate PA-C Work Phone: [facility] 02-01-2022 16:48-0500 Respiratory rate 14 /min Pranav Tate PA-C Work Phone: [facility] 02-01-2022 16:48-0500 SaO2% (BldA) [Mass fraction] 97 % Pranav Tate PA-C Work Phone: [facility] 02-01-2022 16:48-0500 Systolic blood pressure 104 mm[Hg] Pranav Tate PA-C Work Phone: [facility] 10-25-2021 13:59-0400 Body temperature 97.7 [degF] Treatment Wstr Work Phone: [facility] 10-25-2021 13:59-0400 Diastolic blood pressure 69 mm[Hg] Treatment Wstr Work Phone: [facility] 10-25-2021 13:59-0400 Heart rate 72 /min Treatment Wstr Work Phone: [facility] 10-25-2021 13:59-0400 Systolic blood pressure 144 mm[Hg] Treatment Wstr Work Phone: [facility] 10-08-2021 09:09-0400 Body height 167 cm Aparna Becerra MD Work Phone: [facility] 10-08-2021 09:09-0400 Body temperature 97.39 [degF] Aparna Becerra MD Work Phone: [facility] 10-08-2021 09:09-0400 Body weight 89.81 kg Aparna Becerra MD Work Phone: [facility] 10-08-2021 09:09-0400 Diastolic blood pressure 63 mm[Hg] Aparna Becerra MD Work Phone: [facility] 10-08-2021 09:09-0400 Heart rate 71 /min Aparna Becerra MD Work Phone: [facility] 10-08-2021 09:09-0400 SaO2% (BldA) [Mass fraction] 98 % Aparna Becerra MD Work Phone: [facility] 10-08-2021 09:09-0400 Systolic blood pressure 101 mm[Hg] Aparna Becerra MD Work Phone: [facility] 09-24-2021 14:19-0400 Body height 172.7 cm Pranav Tate PA-C Work Phone: [facility] 09-24-2021 14:19-0400 Body temperature 97.5 [degF] Pranav Tate PA-C Work Phone: [facility] 09-24-2021 14:19-0400 Body weight 89.81 kg Pranav Tate PA-C Work Phone: [facility] 09-24-2021 14:19-0400 Diastolic blood pressure 86 mm[Hg] Pranav Tate PA-C Work Phone: [facility] 09-24-2021 14:19-0400 Heart rate 110 /min Pranav Tate PA-C Work Phone: [facility] 09-24-2021 14:19-0400 Respiratory rate 14 /min Pranav Tate PA-C Work Phone: [facility] 09-24-2021 14:19-0400 SaO2% (BldA) [Mass fraction] 96 % Pranav Tate PA-C Work Phone: [facility] 09-24-2021 14:19-0400 Systolic blood pressure 132 mm[Hg] Pranav Brownoney PA-C Work Phone: [facility] 08-31-2021 06:09-0400 Heart rate 92 /min Dr. Otto Subramanian Work Phone: [facility] Work Phone: 08-31-2021 06:09-0400 Respiratory rate 18 /min Dr. Otto Subramanian Work Phone: [facility] Work Phone: 08-31-2021 06:09-0400 SaO2% (BldA) [Mass fraction] 99 % Dr. Otto Subramanian Work Phone: [facility] Work Phone: 08-31-2021 04:10-0400 Body height 172.[address] Otto Subramanian Work Phone: [facility] Work Phone: 08-31-2021 04:10-0400 Body mass index (BMI) [Ratio] 30.9 kg/m2 Dr. Otto Subramanian Work Phone: [facility] Work Phone: 08-31-2021 04:10-0400 Body temperature 98.1 [degF] Dr. Otto Subramanian Work Phone: [facility] Work Phone: 08-31-2021 04:10-0400 Body weight 92.[address] Otto Subramanian Work Phone: [facility] Work Phone: 08-31-2021 04:10-0400 Diastolic blood pressure 105 mm[Hg] Dr. Otto Subramanian Work Phone: [facility] Work Phone: 08-31-2021 04:10-0400 Systolic blood pressure 165 mm[Hg] Dr. Otto Subramanian Work Phone: [facility] Work Phone: 08-16-2021 11:37-0400 Respiratory rate 16 /min Dr. Otto Subramanian Work Phone: [facility] Work Phone: 08-16-2021 09:34-0400 Body height 172.[address] Otto Subramanian Work Phone: [facility] Work Phone: 08-16-2021 09:34-0400 Body mass index (BMI) [Ratio] 30.1 kg/m2 Dr. Otto Subramanian Work Phone: [facility] Work Phone: 08-16-2021 09:34-0400 Body temperature 98 [degF] Dr. Otto Subramanian Work Phone: [facility] Work Phone: 08-16-2021 09:34-0400 Body weight 89.[address] Otto Subramanian Work Phone: [facility] Work Phone: 08-16-2021 09:34-0400 Diastolic blood pressure 70 mm[Hg] Dr. Otto Subramanian Work Phone: [facility] Work Phone: 08-16-2021 09:34-0400 Heart rate 90 /min Dr. Otto Subramanian Work Phone: [facility] Work Phone: 08-16-2021 09:34-0400 SaO2% (BldA) [Mass fraction] 94 % Dr. Otto Subramanian Work Phone: [facility] Work Phone: 08-16-2021 09:34-0400 Systolic blood pressure 116 mm[Hg] Dr. Otto Subramanian Work Phone: [facility] Work Phone: 07-21-2021 14:44-0400 Body mass index (BMI) [Ratio] 31.9 kg/m2 Dr. Otto Subramanian Work Phone: [facility] Work Phone: 07-21-2021 14:44-0400 Body weight 92.[address] Otto Subramanian Work Phone: [facility] Work Phone: 07-21-2021 14:44-0400 Diastolic blood pressure 66 mm[Hg] Dr. Otto Subramanian Work Phone: [facility] Work Phone: 07-21-2021 14:44-0400 Heart rate 72 /min Dr. Otto Subramanian Work Phone: [facility] Work Phone: 07-21-2021 14:44-0400 Respiratory rate 18 /min Dr. Otto Subramanian Work Phone: [facility] Work Phone: 07-21-2021 14:44-0400 Systolic blood pressure 123 mm[Hg] Dr. Otto Subramanian Work Phone: [facility] Work Phone: 07-21-2021 14:44-0400 Body mass index (BMI) [Ratio] 31.9 kg/m2 Dr. Otto Subramanian Work Phone: [facility] Work Phone: 07-21-2021 14:44-0400 Body weight 92.[address] Otto Subramanian Work Phone: [facility] Work Phone: 07-21-2021 14:44-0400 Diastolic blood pressure 66 mm[Hg] Dr. Otto Subramanian Work Phone: [facility] Work Phone: 07-21-2021 14:44-0400 Heart rate 72 /min Dr. Otto Subramanian Work Phone: [facility] Work Phone: 07-21-2021 14:44-0400 Respiratory rate 18 /min Dr. Otto Subramanian Work Phone: [facility] Work Phone: 07-21-2021 14:44-0400 Systolic blood pressure 123 mm[Hg] Dr. Otto Subramanian Work Phone: [facility] Work Phone: Encounters Encounter Date Encounter Type Care Provider Facility Start: 09-16-2024 ambulatory Damaris SALAZAR Facility:[facility] Start: 09-12-2024 ambulatory Damaris SALAZAR Facility:[facility] Start: 09-04-2024 Encounter for preprocedural cardiovascular examination Damaris SALAZAR [facility] Start: 08-20-2024 End: 08-20-2024 ambulatory OTTO SUBRAMANIAN Facility:[facility] Comment on above: Malignant neoplasm o f prostate (HCC) (Primary Dx); Malignant neoplasm 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) Start: 08-20-2024 End: 08-20-2024 Patient encounter procedure Crissy Mai Work Phone: Hematology/Oncology Start: 08-20-2024 End: 08-20-2024 ambulatory OTTO SUBRAMANIAN Facility:[facility] Comment on above: Malignant neoplasm o f prostate (HCC) (Primary Dx); Loss of balance Start: 07-26-[address] Mai Subramanian MD Work Phone: [facility] Start: 06-27-2024 End: 06-27-2024 Patient encounter procedure Damaris Lee PA -[facility] Work Phone: Start: 06-27-2024 End: 06-27-[address] Otto Subramanian MD Work Phone: [facility] Work Phone: Start: 06-27-2024 End: 06-27-2024 ambulatory Damaris SALAZAR Facility:[facility] Start: 06-18-2024 End: 06-18-2024 Patient encounter procedure Leisa Robb PA-C Work Phone: Neurology Comment on above: Recurrent falls (Teresa sandee Dx); Neuropathy; Loss of balance; History of stroke; Low back pain, unspecified back pain laterality, unspecified chronicity, unspecified whether sciatica present; Spinal stenosis of lumbar region, unspecified whether neurogenic claudication present; Intracranial carotid stenosis, unspecified laterality Start: 06-18-2024 End: 06-18-2024 ambulatory OTTO SUBRAMANIAN Facility:[facility] Start: 06-04-2024 End: 06-04-2024 Follow-up encounter Kaushal Stockton MD Work Phone: Sleep Start: 06-04-2024 End: 06-04-2024 ambulatory OTTO Barber ROBINSON Facility:[facility] Start: 06-04-2024 End: 06-04-2024 Subsequent hospital visit by physician [facility] (I-Stat/1.5t) Work Phone: Radiology Comment on above: Low back pain, unspe cified back pain laterality, unspecified chronicity, unspecified whether sciatica present [M54.50] Other symptoms and s igns involving the nervous system [R29.818] Start: 05-28-2024 End: 05-28-2024 Patient encounter procedure Everett Aldrich MD Work Phone: Hematology/Oncology Start: 05-28-2024 End: 05-28-2024 ambulatory Everett Aldrich MD Work Phone: Hematology/Oncology Comment on above: Malignant neoplasm o f prostate (HCC) (Primary Dx) Malignant neoplasm o f prostate (HCC) (Primary Dx); Malignant neoplasm 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) Start: 05-24-2024 End: 05-24-2024 Telephone encounter Kaushal Stockotn MD Work Phone: Neurology 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 Otto Subramanian MD Work Phone: [facility] Work Phone: Start: 05-23-2024 End: 05-23-[address] Otto Subramanian MD -Physical Therapy Work Phone: Start: 05-23-[address] Otto Subramanian MD -Physical Therapy Work Phone: Start: 03-05-2024 End: 03-05-2024 Patient encounter procedure Everett Aldrich MD Work Phone: Hematology/Oncology Start: 03-05-2024 End: 03-05-2024 ambulatory Treatment Rm 15 Nakul [facility] Work Phone: Hematology/Oncology Comment on above: Malignant neoplasm o f prostate (HCC) (Primary Dx); Malignant neoplasm 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) Loss of balance (Teresa sandee Dx); Osteopenia determined by x-ray; Vitamin D deficiency; Malignant neoplasm 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) Start: 01-24-2024 End: 01-24-2024 Emergency department patient visit Otto Subramanian Facility:[facility] Start: 01-23-2024 End: 01-23-2024 ambulatory PRANAV TATE Facility:[facility] Start: 01-23-2024 End: 01-23-2024 Patient encounter procedure Pranav Tate PA-C Work Phone: Urology Comment on above: OAB (overactive blad jennifer) (Primary Dx); Malignant neoplasm of prostate (HCC) Start: 12-26-2023 End: 12-26-2023 ambulatory Osman Bui Facility:[facility] Start: 12-12-2023 End: 12-12-2023 Patient encounter procedure Crissy Pau Work Phone: Hematology/Oncology Start: 12-12-2023 End: 12-12-2023 ambulatory Crissy Romanight Work Phone: Hematology/Oncology Comment on above: Malignant neoplasm o f prostate (HCC) (Primary Dx) Malignant neoplasm o f prostate (HCC) (Primary Dx); Malignant neoplasm 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) Start: 09-19-2023 End: 09-19-2023 Patient encounter procedure Everett Aldrcih MD Work Phone: Hematology/Oncology Start: 09-19-2023 End: 09-19-2023 ambulatory Everett Aldrich MD Work Phone: Hematology/Oncology Comment on above: Malignant neoplasm o f prostate (HCC) (Primary Dx); Malignant neoplasm 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) Start: 06-30-2023 Telephone encounter Everett mcghee MD Work Phone: Hematology/Oncology Comment on above: Results Start: 06-27-2023 End: 06-27-2023 ambulatory Everett Aldrich MD Work Phone: Hematology/Oncology Comment on above: 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) 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); Malignant neoplasm of prostate (HCC) Start: 06-27-2023 End: 06-27-2023 Patient encounter procedure Everett Aldrich MD Work Phone: [facility] Start: 06-09-2023 Non-patient / Non-visit Dr. Edgar Subramanian Work Phone: [facility] Work Phone: Start: 06-09-2023 Non-patient / Non-visit Dr. Edgar Subramanian Work Phone: [facility] Start: 06-09-2023 End: 06-09-[address] Otto Subramanian Work Phone: [facility] Work Phone: Start: 06-09-2023 End: 06-09-[address] Otto Subramanian Work Phone: [facility] Work Phone: Start: 06-07-2023 Refill Everett coughlin MD Work Phone: Hematology/Oncology Comment on above: medication questions Start: 06-06-2023 Non-patient / Non-visit Dr. Edgar Subramanian Work Phone: [facility] Work Phone: Start: 06-05-2023 Non-patient / Non-visit Dr. Edgar Subramanian Work Phone: [facility] Start: 06-05-2023 End: 06-05-[address] Otto Subramanian Work Phone: [facility] Work Phone: Start: 06-05-2023 End: 06-05-[address] Otto Subramanian Work Phone: [facility] Work Phone: Start: 05-23-2023 End: 05-23-[address] Otto Subramanian Work Phone: [facility] Work Phone: Start: 03-21-2023 End: 03-21-2023 ambulatory [facility] Work Phone: Start: 03-21-2023 End: 03-21-2023 Discharged Recurring [facility]-Physical Therapy Work Phone: Start: 03-03-2023 Telephone encounter Everett mcghee MD Work Phone: Hematology/Oncology Comment on above: Appointment Start: 03-03-2023 End: 03-03-2023 ambulatory Treatment Rm 12 Nakul [facility] Work Phone: Hematology/Oncology Comment on above: 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); Malignant neoplasm of prostate (HCC) Start: 01-30-2023 Refill Everett coughlin MD Work Phone: Hematology/Oncology Comment on above: Refill Request Start: 01-06-2023 Telephone encounter Everett mcghee MD Work Phone: Hematology/Oncology Comment on above: Appointment Start: 11-09-2022 End: 11-09-2022 ambulatory Treatment Rm 8 [facility] Work Phone: Hematology/Oncology Comment on above: 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); Malignant neoplasm of prostate (HCC) Start: 10-20-2022 Telephone encounter Everett mcghee MD Work Phone: Hematology/Oncology Comment on above: Results Start: 10-20-2022 End: 10-20-2022 ambulatory Injection Nakul [facility] Work Phone: Hematology/Oncology Comment on above: 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); Malignant neoplasm of prostate (HCC) 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) Start: 10-20-2022 End: 10-20-2022 Patient encounter procedure Everett Aldrich MD Work Phone: [facility] Start: 10-17-2022 End: 10-17-2022 [facility] Start: 10-15-2022 End: 10-15-2022 Emergency department patient visit [facility] Work Phone: Start: 10-12-2022 End: 10-12-2022 ambulatory Treatment Rm 9 [facility] Work Phone: Hematology/Oncology Comment on above: 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); Malignant neoplasm of prostate (HCC) Start: 09-14-2022 End: 09-14-2022 ambulatory Treatment Rm 3 Nakul [facility] Work Phone: Hematology/Oncology Comment on above: 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); Malignant neoplasm of prostate (HCC) Start: 08-18-2022 End: 08-18-2022 ambulatory Treatment Rm 10 [facility] Work Phone: Hematology/Oncology Comment on above: Malignant neoplasm o f prostate (HCC) (Primary Dx); Malignant neoplasm 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) Start: 08-17-2022 Orders Only Denilson Magallon O Work Phone: Hematology/Oncology Start: 07-28-2022 End: 07-28-2022 Patient encounter procedure [facility] Start: 07-28-2022 End: 07-28-2022 ambulatory Injection [facility] Work Phone: Hematology/Oncology Comment on above: 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); Malignant neoplasm of prostate (HCC) Start: 07-28-2022 End: 07-28-2022 ambulatory Bree Cornejo BANK COMPLIANCE OFFICER.COLD MILL INSPECTOR Work Phone: Hematology/Oncology Comment on above: Malignant neoplasm o f prostate (HCC) (Primary Dx); Malignant neoplasm 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) Start: 07-28-2022 End: 07-28-2022 Patient encounter procedure Bree Cornejo BANK COMPLIANCE OFFICER.COLD MILL INSPECTOR Work Phone: [facility] Start: 07-18-2022 Telephone encounter Denilson elliott DO Work Phone: Hematology/Oncology Comment on above: Orders Start: 07-18-2022 End: 07-18-2022 ambulatory Treatment Rm 13 [facility] Work Phone: Hematology/Oncology Comment on above: 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); Malignant neoplasm of prostate (HCC) Start: 07-15-2022 Orders Only Denilson James Work Phone: Hematology/Oncology Comment on above: Malignant neoplasm o f prostate (HCC) (Primary Dx); Malignant neoplasm 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) Start: 07-11-2022 End: 07-11-2022 ambulatory Denilson Fernandes DO Work Phone: Hematology/Oncology Comment on above: Malignant neoplasm o f prostate (HCC) (Primary Dx); Malignant neoplasm 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) Start: 07-11-2022 End: 07-11-2022 Patient encounter procedure Denilson Fernandes DO Work Phone: [facility] Start: 06-29-2022 Telephone encounter Irene vitale RN Work Phone: Hematology/Oncology Comment on above: Care Coordination (p atient update-weakness) Start: 06-24-2022 Telephone encounter Denilson elliott DO Work Phone: Hematology/Oncology Comment on above: Patient Update (Weak ness) Start: 06-21-2022 End: 06-22-2022 Emergency department patient visit [facility] Start: 06-21-2022 Telephone encounter Irene vitale RN Work Phone: Hematology/Oncology Comment on above: Patient Update (Symp toms) Start: 06-13-2022 Specialty Pharmacy Robert [facility] Comment on above: SPP Oral Oncology/he matology - Medication Refill (Erleada) Start: 05-23-2022 End: 05-23-2022 ambulatory Treatment Rm 5 Nakul [facility] Work Phone: Hematology/Oncology Comment on above: Bone metastases (HCC ) (Primary Dx); Malignant neoplasm of prostate (HCC) Start: 05-05-2022 End: 05-05-2022 ambulatory Injection Nakul [facility] Work Phone: Hematology/Oncology Comment on above: Bone metastases (HCC ) (Primary Dx); Malignant neoplasm of prostate (HCC) Start: 04-28-2022 Specialty Pharmacy Robert Jensen [facility] Comment on above: SPP Oral Oncology/he matology - Medication Refill (Erleada 60mg) Start: 04-26-2022 Telephone encounter Bree mishra APRN.CNP Work Phone: Hematology/Oncology Comment on above: Results Start: 04-25-2022 End: 04-25-2022 ambulatory Treatment Rm 2 Nakul [facility] Work Phone: Hematology/Oncology Comment on above: Bone metastases (HCC ) (Primary Dx); Malignant neoplasm of prostate (HCC) Start: 04-22-2022 Orders Only Bree camarillo APRN.CNP Work Phone: Hematology/Oncology Start: 04-06-2022 Specialty Pharmacy Robert Jensen [facility] Comment on above: SPP Oral Oncology/he matology - Medication Refill (Erleada 6-mg) Start: 03-08-2022 Specialty Pharmacy Robert Jensen [facility] Comment on above: SPP Oral Oncology/he matology - Medication Refill (Erleada 60mg) Start: 03-07-2022 Refill Denilson James Work Phone: Hematology/Oncology Comment on above: Refill Request Start: 03-03-2022 End: 03-03-2022 ambulatory [facility] Work Phone: Start: 03-03-2022 End: 03-03-2022 Discharged [facility] Start: 02-04-2022 [facility] Comment on above: SPP Oral Oncology/he matology - Medication Refill (Erleada) Start: 02-01-2022 End: 02-01-2022 Patient encounter procedure Pranav Tate PA-C Work Phone: Urology Comment on above: Elevated PSA (Primar y Dx) Start: 01-25-2022 Telephone encounter Pranav shrestha PA-C Work Phone: Urology Comment on above: Patient Question Start: 01-19-2022 Telephone encounter Pranav shrestha PA-C Work Phone: Urology Comment on above: Patient Question Start: 01-10-2022 Specialty Pharmacy Adwoa Tinajero [facility] Comment on above: SPP Oral Oncology/he matology - Medication Refill (Erleada) Start: 01-07-2022 Telephone encounter Aparna Becerra MD Work Phone: Hematology/Oncology Comment on above: Release Of Medical R ecords Start: 12-07-2021 Specialty Pharmacy Robert Jensen [facility] Comment on above: SPP Oral Oncology/he matology - Medication Refill (Erleada) Start: 12-06-2021 Refill Aparna Becerra MD Work Phone: Hematology/Oncology Comment on above: Refill Request Start: 11-03-2021 Specialty Pharmacy Kristen Lara [facility] Comment on above: SPP Oral Oncology/he matology - Medication Refill (Erleada 60mg) Start: 11-01-2021 Telephone encounter Aparna Becerra MD Work Phone: Hematology/Oncology Comment on above: Patient Question Start: 10-25-2021 End: 10-25-2021 ambulatory Treatment Rm 8 [facility] Work Phone: Hematology/Oncology Comment on above: Bone metastases (HCC ) (Primary Dx); Malignant neoplasm of prostate (HCC) Start: 10-25-2021 Telephone encounter Irene vitale RN Work Phone: Hematology/Oncology Comment on above: Care Coordination (O RAL ANTI-CANCER AGENTS FOLLOW-UP PHONE CALL) Start: 10-22-2021 Telephone encounter Financial Navigator Nakul Work Phone: Hematology/Oncology Comment on above: Benefits Investigati on Start: 10-12-2021 Telephone encounter Aparna Becerra MD Work Phone: Hematology/Oncology Comment on above: Medication Problem Start: 10-09-2021 Telephone encounter Aparna Becerra MD Work Phone: Hematology/Oncology Comment on above: Results; Medication Problem Start: 10-08-2021 End: 10-08-2021 ambulatory Adwoa Tinajero [facility] Comment on above: Malignant neoplasm o f prostate (HCC) (Primary Dx); Bone metastases (HCC); Osteopenia determined by x-ray Start: 10-08-2021 End: 10-08-2021 Patient encounter procedure Adwoa Tinajero [facility] Comment on above: SPP Oral Oncology/he matology - Treatment Referral (Erleada); Insurance Authorization (Pending PA) Start: 09-27-2021 Telephone encounter Pranav shrestha PA-C Work Phone: Urology Comment on above: results of body scan Start: 09-24-2021 End: 09-24-[address] Otto Subramanian Work Phone: [facility]Nuclear Medicine, [facility] Comment on above: Prostate cancer (HCC ) (Primary Dx); Elevated PSA Start: 09-22-2021 Telephone encounter Pranav shrestha PA-C Work Phone: Urology Comment on above: Request Outside [facility] Start: 09-17-2021 End: 09-17-[address] Otto Subramanian Work Phone: [facility] Start: 08-31-2021 End: 08-31-2021 Emergency department patient [facility] Start: 08-24-2021 End: 08-24-[address] Otto Subramanian Work Phone: [facility] Start: 08-16-2021 End: 08-16-2021 Emergency department patient visit Dr. [facility]ramanian [facility] Start: 07-21-2021 End: 07-21-[address] Otto Subramanian Work Phone: [facility] Procedures Date Procedure Procedure Detail Performing Clinician Start: 06-04-2024 Mri spinal canal lum bar w/o & w/contr matrl Kaushal Stockton MD Work Phone: Start: 01-23-2024 Urnls dip stick/tabl et rgnt auto w/o microscopy Pranav Taet PA-C Work Phone: Start: 10-15-2022 Computed tomography of abdomen and pelvis with intravenous contrast Start: 10-15-2022 Diagnostic radiograp hy of abdomen Start: 06-22-2022 CT of head without contrast Start: 06-22-2022 Plain chest X-ray Start: 09-24-2021 Urnls dip stick/tabl et rgnt auto w/o microscopy Pranav Tate PA-C Work Phone: Start: 09-24-2021 Radionuclide whole b joaquim bone study Dr. Otto Subramanian Work Phone: Start: 08-31-2021 Plain chest X-ray Dr. Mai Subramanian Work Phone: Start: 08-31-2021 Computed tomography of abdomen and pelvis with intravenous contrast Dr. Otto Subramanian Work Phone: Plan of Treatment Date Care Activity Detail Author Start: 05-25-2033 Urine microalbumin profile DTaP,Tdap,Td Vaccine (2 - Td or Tdap) [facility] Start: 08-21-2027 Diabetes Screening [facility] Start: 05-29-2027 Diabetes Screening Diabetes [facility] Start: 03-05-2027 Diabetes Screening Diabetes [facility] Start: 12-11-2026 Diabetes Screening Diabetes [facility] Start: 09-18-2026 Diabetes Screening Diabetes [facility] Start: 06-26-2026 Diabetes Screening Diabetes [facility] Start: 04-03-2026 Diabetes Screening Diabetes [facility] Start: 03-03-2026 Diabetes Screening Diabetes [facility] Start: 01-12-2026 Diabetes Screening Diabetes [facility] Start: 01-05-2026 Diabetes Screening Diabetes [facility] Start: 11-09-2025 DIABETES SCREEN DIABETES SCREEN [facility] Start: 10-20-2025 DIABETES SCREEN DIABETES SCREEN [facility] Start: 10-12-2025 DIABETES SCREEN DIABETES SCREEN [facility] Start: 09-14-2025 DIABETES SCREEN DIABETES SCREEN [facility] Start: 08-18-2025 DIABETES SCREEN DIABETES SCREEN [facility] Start: 07-18-2025 DIABETES SCREEN DIABETES SCREEN [facility] Start: 06-20-2025 DIABETES SCREEN DIABETES SCREEN [facility] Start: 05-23-2025 DIABETES SCREEN DIABETES SCREEN [facility] Start: 04-25-2025 DIABETES SCREEN DIABETES SCREEN [facility] Start: 01-28-2025 End: 01-28-2025 Patient encounter procedure 01/28/2025 9:00 AM EST Office Visit Urology [address] [place] [address] Pranav Tate PA-C [address] [place] [address] 1 YR F/U Urology Comment on above: 1 YR F/U Start: 01-07-2025 DIABETES SCREEN DIABETES SCREEN [facility] Start: 11-12-2024 End: 11-12-2024 ambulatory [facility] Comment on above: (SO)CBC/CMP(S)/PSA* 3MO OV/LAB EARLY/ZOM ETA,LUPRON TODAY* ABRAMOVICH 2nd Start: 10-21-2024 DIABETES SCREEN DIABETES SCREEN [facility] Start: 10-08-2024 DIABETES SCREEN DIABETES SCREEN [facility] Start: 08-20-2024 End: 08-20-2024 ambulatory 08/20/2024 1:30 PM EDT [facility] Hematology/Oncology [address] [place] [address] 2nd Hematology/Oncology Comment on above: 2nd Start: 08-20-2024 End: 08-20-2024 ambulatory [facility] Comment on above: (SO)CBC/CMP(S)/PSA* 3MO OV/LAB EARLY/ZOM ETA,LUPRON TODAY* 3MO OV/LAB EARLY/ZOM ETA,LUPRON TODAY* abramovich Start: 06-27-[address] [facility] Work Phone: Start: 06-18-2024 End: 06-18-2024 Patient encounter procedure 06/18/2024 1:45 PM EDT Office Visit Neurology [address] [place], [place] [id number] Leisa Robb PA-C [address] [place], [place] [id number] post MRI Neurology Comment on above: post MRI Start: 06-04-2024 End: 06-04-2024 Patient encounter procedure Radiology Comment on above: Low back pain, unspe cified back pain laterality, unspecified chronicity, unspecified whether sciatica present [M54.50] Start: 05-28-2024 End: 05-28-2024 ambulatory 05/28/2024 1:30 PM EDT [facility] Hematology/Oncology [address] [place] [address] 2nd Hematology/Oncology Comment on above: 2nd Start: 05-28-2024 End: 05-28-2024 ambulatory [facility] Comment on above: (SO)CBC/CMP(S)/PSA* 3MO OV/LAB EARLY/ZOM ETA,LUPRON TODAY* Start: 05-24-2024 End: 05-24-2024 Patient encounter procedure 05/24/2024 10:40 AM EST Office Visit Neurology [address] [facility] [place] [address] Kaushal Stockton Jr., MD [address] [place] [address] Loss of balance [R26.89] Neurology Comment on above: Loss of balance [R26 .89] Start: 03-20-2024 Advance Directive Discussion Advance Directive Discussion [facility] Start: 03-05-2024 End: 03-05-2024 [facility] Comment on above: (SO)CBC/CMP(S)/PSA* OV/LAB EARLY/ZOMETA, LUPRON TOAY* 2nd Start: 12-12-2023 End: 12-12-2023 ambulatory [facility] Comment on above: (SO)CBC/CMP(S)/PSA* OV/LAB EARLY/ZOMETA, LUPRON TOAY* Q3MO ZOMETA(AUTH EXP 03/19/24)Q3MO LUPRON(AUTH EXP 06/21/24)LAB&OV TODAY* Start: 11-19-2023 Covid-19 Vaccine ( season) Covid-19 Vaccine ( season) [facility] Start: 11-19-2023 Influenza vaccination Influenza Vacc ine (#1) [facility] Start: 03-20-2023 Advance Directive Discussion Advance Directive Discussion [facility] Start: 03-20-2023 Behavioral Health Screening Behavioral Health Screening [facility] Start: 03-20-2023 Depression Assessment Depression Ass essment [facility] Start: 11-18-2022 Covid-19 Vaccine () Covid-19 Vaccine () [facility] Start: 11-18-2022 Influenza vaccination INFLUENZA (#1) [facility] Start: 07-18-2022 End: 09-17-2022 CBC W Auto Differential panel - Blood [facility] Work Phone: Comment on above: Expected: 07/18/2022 , Expires: 09/17/2022 Expected: 07/18/2022 (Approximate), Expires: 09/17/2022 Start: 07-18-2022 End: 09-17-2022 Comprehensive metabolic 2000 panel - Serum or Plasma [facility] Work Phone: Comment on above: Expected: 07/18/2022 , Expires: 09/17/2022 Expected: 07/18/2022 (Approximate), Expires: 09/17/2022 Start: 07-18-2022 End: 09-17-2022 Prostate specific Ag [Mass/volume] in Serum or Plasma [facility] Work Phone: Comment on above: Expected: 07/18/2022 , Expires: 09/17/2022 Start: 05-25-2022 End: 07-25-2022 Prostate specific Ag [Mass/volume] in Serum or Plasma PSA/PROSTSPECAG DIAG Lab Routine Prostate cancer (HCC) Expected: 05/25/2022 (Approximate), Expires: 07/25/2022 [facility] Work Phone: Comment on above: Expected: 05/25/2022 (Approximate), Expires: 07/25/2022 Start: 03-20-2022 ADVANCE DIRECTIVE DISCUSSION ADVANCE DIRECTIVE DISCUSSION [facility] Start: 03-20-2022 DEPRESSION ASSESSMENT DEPRESSION ASS ESSMENT [facility] Start: 01-25-2022 End: 03-27-2022 Prostate specific Ag [Mass/volume] in Serum or Plasma PSA/PROSTSPECAG DIAG Lab Routine Prostate cancer (HCC) Expected: 01/25/2022, Expires: 03/27/2022 [facility] Work Phone: Comment on above: Expected: 01/25/2022 , Expires: 03/27/2022 Start: 11-18-2021 Influenza vaccination INFLUENZA (#1) [facility] Start: 05-22-2021 COVID-19 VACCINE (4 - Booster for Moderna series) COVID-19 VACCINE (4 - Booster for Moderna series) [facility] Start: 04-24-2021 COVID-19 VACCINE (4 - Booster for Moderna series) COVID-19 VACCINE (4 - Booster for Moderna series) [facility] Start: 04-16-2021 COVID-19 VACCINE (4 - Booster for Moderna series) COVID-19 VACCINE (4 - Booster for Moderna series) [facility] Start: 03-20-2021 ADVANCE DIRECTIVE DISCUSSION ADVANCE DIRECTIVE DISCUSSION [facility] Start: 03-20-2021 DEPRESSION ASSESSMENT DEPRESSION ASS ESSMENT [facility] Start: 03-19-2021 COVID-19 VACCINE (4 - Booster for Moderna series) COVID-19 VACCINE (4 - Booster for Moderna series) [facility] Start: 03-19-2021 COVID-19 VACCINE (4 - Moderna series) COVID-19 VACCINE (4 - Moderna series) [facility] Start: 10-12-2020 COVID-19 VACCINE (3 - Booster for Moderna series) COVID-19 VACCINE (3 - Booster for Moderna series) [facility] Start: 01-10-2016 Pneumococcal Vaccine : 65+ (2 - PCV) Pneumococcal Vaccine: 65+ (2 - PCV) [facility] Start: 01-10-2016 Pneumococcal Vaccine : 65+ (2 of 2 - PCV) Pneumococcal Vaccine: 65+ (2 of 2 - PCV) [facility] Start: 01-10-2016 PNEUMOCOCCAL: 65+ (2 - PCV) PNEUMOCOCCAL: 65+ (2 - PCV) [facility] Start: 07-12-2013 DIABETES SCREEN DIABETES SCREEN [facility] Start: 08-29-2011 RSV Vaccine (1 - 1-d ose 75+ series) RSV Vaccine (1 - 1-dose 75+ series) [facility] Start: 12-18-2008 PNEUMOCOCCAL: 65+ (2 - PCV) PNEUMOCOCCAL: 65+ (2 - PCV) [facility] Start: 09-09-2000 Urine microalbumin profile [facility] Start: 1996 RSV Vaccine (1 - 1-d ose 60+ series) RSV Vaccine (1 - 1-dose 60+ series) [facility] Start: 1986 SHINGRIX VACCINE (1 of 2) SHINGRIX VACCINE (1 of 2) [facility] Start: 08-29-1955 SHINGRIX VACCINE (1 of 2) SHINGRIX VACCINE (1 of 2) [facility] Start: 08-29-1955 Urine microalbumin profile DTAP,TDAP,TD (1 - Tdap) [facility] Start: 1954 Anxiety Screening Anxiety Screening [facility] Start: 1954 Depression Screening Depression Scre ening [facility] End: 06-23-2025 MR Brain WO and W contrast IV MRI BRAIN WO/W IVCON Radiology Routine Other symptoms and signs involving the nervous system 1 Occurrences starting 05/24/2024 until 06/23/2025 [facility] Work Phone: Comment on above: 1 Occurrences starti ng 05/24/2024 until 06/23/2025 End: 06-23-2025 MR Lumbar spine WO and W contrast IV MRI LUMBAR SPINE WO/W IVCON Radiology Routine Low back pain, unspecified back pain laterality, unspecified chronicity, unspecified whether sciatica present 1 Occurrences starting 05/24/2024 until 06/23/2025 [facility] Comment on above: 1 Occurrences starti ng 05/24/2024 until 06/23/2025 End: 06-23-2025 MRA Head vessels WO contrast MRA BRAIN WO IVCON Radiology Routine Other symptoms and signs involving the nervous system 1 Occurrences starting 05/24/2024 until 06/23/2025 [facility] Comment on above: 1 Occurrences starti ng 05/24/2024 until 06/23/2025 End: 06-23-2025 MRA Neck vessels WO contrast MRA CAROTID WO IVCON Radiology Routine Other symptoms and signs involving the nervous system 1 Occurrences starting 05/24/2024 until 06/23/2025 [facility] Comment on above: 1 Occurrences starti ng 05/24/2024 until 06/23/2025 End: 07-21-2023 Mri brain brain stem w/o w/contrast material MRI BRAIN WO/W IVCON Radiology STAT Early onset cerebellar ataxia (HCC) 1 Occurrences starting 06/21/2022 until 07/21/2023 [facility] Work Phone: Comment on above: 1 Occurrences starti ng 06/21/2022 until 07/21/2023 Patient Education [facility] Work Phone: Patient referral [facility] Work Phone: POST VOID RESIDUAL POST VOID RES IDUAL Procedures Routine Elevated PSA Ordered: 09/24/2021 [facility] Work Phone: Comment on above: Ordered: 09/24/2021 End: 10-19-2023 Prostate specific Ag [Mass/volume] in Serum or Plasma PSA/PROSTSPECAG DIAG Lab Routine Malignant neoplasm 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) Every 3 months for 4 Occurrences starting 10/19/2022 until 10/19/2023 [facility] Work Phone: Comment on above: Every 3 months for 4 Occurrences starting 10/19/2022 until 10/19/2023 Prostate specific Ag [Mass/volume] in Serum or Plasma PSA/PROSTSPECAG DIAG Lab Routine Malignant neoplasm 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) 10/20/2022 9:06 AM EDT [facility] Work Phone: Prostate specific antigen measurement [facility] Work Phone: US Carotid arteries [facility] End: 10-19-2023 CAROLIN ISTAT BMP CAROLIN ISTAT BMP Lab STAT Malignant neoplasm 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) Every 3 months for 4 Occurrences starting 10/19/2022 until 10/19/2023 [facility] Work Phone: Comment on above: Every 3 months for 4 Occurrences starting 10/19/2022 until 10/19/2023 End: 10-20-2023 CAROLIN ISTAT BMP CAROLIN ISTAT BMP Lab STAT Malignant neoplasm 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) Every 3 months for 4 Occurrences starting 10/20/2022 until 10/20/2023 [facility] Work Phone: Comment on above: Every 3 months for 4 Occurrences starting 10/20/2022 until 10/20/2023 [facility] c [facility] c [facility] c [facility] c [facility] Immunizations Immunization Date Immunization Notes Care Provider Fa [facility] 12-16-2022 influenza virus vacc ine, unspecified formulation Everett Aldrich MD Work Phone: [facility] 01-15-2021 influenza, injectabl e, quadrivalent, preservative free Aparna Becerra MD Work Phone: [facility] 05-15-2020 Covid (Moderna) Dr. Otto Taylor Work Phone: [facility] 04-17-2020 Courtneyid (Moderna) Dr. Otto Taylor Work Phone: [facility] 01-13-2020 zoster vaccine recombinant Aparna Becerra MD Work Phone: [facility] 12-17-2019 influenza, high-dose , quadrivalent vaccine (FLUZONE HIGH DOSE QUADRIVALENT) Aparna Becerra MD Work Phone: [facility] 11-04-2019 zoster vaccine recombinant Aparna Becerra MD Work Phone: [facility] 12-20-2018 influenza, high dose seasonal, preservative-free Aparna Becerra MD Work Phone: [facility] 04-04-2018 influenza, high dose seasonal, preservative-free Aparna Becerra MD Work Phone: [facility] 01-19-2017 influenza, injectabl e, quadrivalent, contains preservative Aparna Becerra MD Work Phone: [facility] 01-09-2015 pneumococcal conjuga te vaccine, 7 valent Aparna Becerra MD Work Phone: [facility] 03-10-2010 zoster vaccine, live Aparna Becerra MD Work Phone: [facility] 12-19-2007 pneumococcal polysaccharide vaccine, 23 valent Pranav Tate PA-C Work Phone: [facility] 12-29-2003 pneumococcal polysaccharide vaccine, 23 valent Aparna Becerra MD Work Phone: [facility] 09-08-2000 tetanus and diphther ia toxoids, adsorbed, preservative free, for adult use (2 Lf of tetanus toxoid and 2 Lf of diphtheria toxoid) Aparna Becerra MD Work Phone: [facility] Payers Date Payer Category Payer Self-pay [id number] 2021 Medicare [id number] 2021 Medicare AETNA MEDICARE A ETNA MEDICARE PPO [id number] 2021-Present [phone] [address] [place] [address] O [id number] 2021 Medicare (Managed Care) AET[employer] [place] [id number] 2020 Medicare AETNA MEDICARE A ETNA MEDICARE PPO [id number] 2020-Present [phone] [address] [place] [address] PPO [id number] 2012 Private Health Insurance [id number] Unknown [id number] Unknown [id number] Unknown [id number] Unknown [id number] Unknown [id number] 462 Unknown [id number] Unknown [id number] Social History Date Type Detail Facility Start: 08-16-2021 End: 05-23-2023 Tobacco smoking status NHIS Unknown if ever smoked [facility] Start: 1935 Sex Assigned At Male C [facility] Start: 04-27-2017 End: 01-23-2024 Tobacco smoking status NHIS Never smoked tobacco [facility] Start: 03-08-2019 End: 08-20-2024 Alcohol intake Current non-drinker of alcohol (finding) [facility] Start: 09-14-2021 End: 02-01-2022 Exposure to SARS-CoV-2 (event) Not sure [facility] Start: 04-27-2017 End: 01-23-2024 Tobacco use and exposure Smokeless tobacco non-user [facility] Work Phone: Start: 07-11-2022 End: 07-28-2022 History of Social function [facility] Start: 07-11-2022 End: 07-28-2022 Tobacco use panel [facility] National Score (1-10 0), lower number is lower risk 42 [facility] Start: 04-30-2020 Gender identity Identifies as male gender (finding) [facility] Start: 04-30-2020 Sexual orientation Heterosexual (fin ding) [facility] Start: 07-02-2024 Sex Male (finding) [facility] Functional Status Date Assessment Result Facility 05-13-2014 Are you deaf, or do you have serious difficulty hearing No 05/13/2014 1:29 PM Anna Michaud LPN No [facility] 05-13-2014 Are you blind, or do you have serious difficulty seeing, even when wearing glasses No 05/13/2014 1:29 PM Anna Michaud LPN No [facility] 05-13-2014 Do you have serious difficulty walking or climbing stairs No 05/13/2014 1:29 PM Anna Michaud LPN No [facility] 05-13-2014 Do you have difficul ty dressing or bathing No 05/13/2014 1:29 PM Anna Michaud LPN No [facility] 05-13-2014 Because of a physica l, mental, or emotional condition, do you have difficulty doing errands alone such as visiting a physician's office or shopping No 05/13/2014 1:29 PM Anna Michaud LPN No [facility] Mental Status Date Assessment Result Facility 06-21-2022 Cognitive function Level Of Cons ciousness Awake;Appropriate;Drowsy [facility] Work Phone: 08-31-2021 Cognitive function Level Of Cons ciousness Awake;Alert;Appropriate;Fol lows Commands [facility] Work Phone: 08-16-2021 Cognitive function Level Of Cons ciousness Awake;Alert;Appropriate;Fol lows Commands [facility] Work Phone: 05-13-2014 Because of a physica l, mental, or emotional condition, do you have serious difficulty concentrating, remembering, or making decisions No 05/13/2014 1:29 PM Anna MichaudANTONELLA No [facility] Clinical Notes 09-23-2021 to 08-20-2024 Crissy Mai - 08/20/2024 12:59 PM EDT Note Date & Type Note Facility 08-20-2024 Note HNO ID: [id number] Author: CRISSY MAI, ? Service: ? Author Type: Nurse Practitioner Type: Progress Notes Filed: 08/20/2024 15:40 Note Text: Alex Carpenter 1935 08/20/2024 HISTORY OF PRESENT ILLNESS: Alex Carpenter is a 87 year old male diagnosed with prostate cancer in 1998, status post radical prostatectomy for [place] score 6 = 3+3. He had been on intermittent ADT for biochemical failure, elevated PSA, in the past. Component Latest Ref Rng AND Units 03/04/2019 03/06/2019 07/05/2019 09/23/2020 PSA 0.00 - 2.59 ng/mL 29.01 (H) 33.08 (H) 0.25 0.92 He had not had LHRH injection until recently when his PSA was over 210 by his primary care physician because of generalized aches and pain. Subsequent CT scan of the abdomen pelvis and bone scan recently showed findings suggestive of metastatic deposit along the anterior aspect of the right seventh rib in the pedicle of the left side of T12. There is left hemisacrum activity as well. Degenerative changes noted in both knees and both shoulder joints. His bone density test within the last year showed evidence of osteopenia. Started back on androgen deprivation therapy with Eligard in September 2021, due to PSA 246. He had no hot flashes, increased fatigue or muscle weakness. He denied difficulty with urination. He had general arthritis pain in both knee and shoulder along with generalized aching. No change in weight or appetite. CT scans negative, bone scan in 2021 suggested bone mets Previous therapy: 1) Apalutamide. Started September 2021. Stopped in June 2022 due to generalized weakness and malaise. Current treatment: 1) Lupron every 3 months. 2) Zometa every 6 months Interim history: Doing ok. Balance is pretty bad using rollator today. He is following with neuro, recent referral to spine. Denies new aches or pains. Chronic knee pain L>R. Considering a replacement. Denies new or worsening SOB, CP, or palpitations. No changes in bowel or bladder habits. No rash or skin changes. Denies bleeding or bruising. Denies HF, NS. Overall tolerating injections well. CLINICAL IMPRESSION: Prostate cancer biochemical relapse, bone scan in 2021 suggested bone mets (report is listed in scanned documents labelled bone density). Doing well on GnRH agonist alone PSA remains stable RECOMMENDATION/PLAN: 1. Continue lupron q 3 months, will add back apalutamide if PSA continues to climb. 2. Zometa every 3 months 3. Follow PSA PAST MEDICAL HISTORY Diagnosis Date Bone metastases 10/08/2021 HTN (hypertension) Malignant neoplasm 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) Prostate cancer (HCC) SCC (squamous cell carcinoma), face PAST SURGICAL HISTORY Procedure Laterality Date PROSTATECTOMY;RADICAL RETROPUBIC 1996 FAMILY HISTORY Problem Relation Age of Onset Breast Cancer Mother Cancer Father Social History Tobacco Use Smoking status: Never Smokeless tobacco: Never Vaping Use Vaping status: Never Used Substance Use Topics Alcohol use: No Drug use: Never ALLERGIES: ALLERGIES Allergen Reactions Lisinopril Cough CURRENT OUTPATIENT MEDICATIONS: oxyCODONE-acetaminophen (PERCOCET) 5-325 mg tabletTake 1 tablet by mouth every 6 hours as needed.Disp: Rfl: losartan (COZAAR) 25 mg tabletTake 25 mg by mouth once daily.Disp: Rfl: ergocalciferol 50,000 unit capsule (VITAMIN D2, DRISDOL)Take 1 capsule by mouth one time a week.Disp: 12 capsuleRfl: 3 meloxicam (MOBIC) 7.5 mg tabletTake 7.5 mg by mouth once daily.Disp: Rfl: magnesium hydroxide (MAGNESIA ORAL)Take 400 mg by mouth once daily as needed (constipation).Disp: Rfl: (Patient taking differently: Take 400 mg by mouth once daily.) POTASSIUM-99 ORALTake 1 tablet by mouth once daily.Disp: Rfl: ubidecarenone (ULTRA COQ10 ORAL)Take by mouth once daily.Disp: Rfl: hydroCHLOROthiazide (HYDRODIURIL, ESIDRIX) 12.5 mg capsuleTake 12.5 mg by mouth once daily.Disp: Rfl: metoprolol tartrate, short acting, (LOPRESSOR) 50 mg tabletTake 25 mg by mouth two times a day.Disp: Rfl: atorvastatin 40 mg tabletTake 20 mg by mouth once daily.Disp: Rfl: aspirin, enteric coated 81 mg EC tabletTake 81 mg by mouth once daily.Disp: Rfl: GLUCOSAM/MSM/CHONDR/VIT C/HYAL ([id number] ORAL)Take 1 tablet by mouth two times a day.Disp: Rfl: nitroglycerin sublingual (NITROQUICK) 0.4 mg SL tabletDissolve 0.4 mg under the tongue every 5 minutes as needed.Disp: Rfl: Fish Oil-Shields-3 Fatty Acids 500-300 mg ORAL CapTake by mouth.Disp: Rfl: 0 ergocalciferol, vitamin D2, (VITAMIN D2 ORAL)Take by mouth.Disp: Rfl: (Patient not taking: Reported on 08/20/2024) oxybutynin XL (DITROPAN XL) 5 mg 24 hr tabletTake 1 tablet by mouth once daily.Disp: 90 tabletRfl: 3 (Patient not taking: Reported on 08/20/2024) OTC PRODUCTTake 1,500 mg by mouth two times a day. LipozeneDisp: Rfl: (Patient not taking: Reported on 08/20/2024) apalutamide (ERLEADA) 60 mg tabletTake 3 tablets (180mg) by mouth once daily.Disp: (more content not included)... [facility] 08-20-2024 History of Present illness Narrative Alex Carpenter 1935 08/20/2024 HISTORY OF PRESENT ILLNESS: Alex Carpenter is a 87 year old male diagnosed with prostate cancer in 1998, status post radical prostatectomy for [place] score 6 = 3+3. He had been on intermittent ADT for biochemical failure, elevated PSA, in the past. Component Latest Ref Rng & Units 03/04/2019 03/06/2019 07/05/2019 09/23/2020 PSA 0.00 - 2.59 ng/mL 29.01 (H) 33.08 (H) 0.25 0.92 He had not had LHRH injection until recently when his PSA was over 210 by his primary care physician because of generalized aches and pain. Subsequent CT scan of the abdomen pelvis and bone scan recently showed findings suggestive of metastatic deposit along the anterior aspect of the right seventh rib in the pedicle of the left side of T12. There is left hemisacrum activity as well. Degenerative changes noted in both knees and both shoulder joints. His bone density test within the last year showed evidence of osteopenia. Started back on androgen deprivation therapy with Eligard in September 2021, due to PSA 246. He had no hot flashes, increased fatigue or muscle weakness. He denied difficulty with urination. He had general arthritis pain in both knee and shoulder along with generalized aching. No change in weight or appetite. CT scans negative, bone scan in 2021 suggested bone mets Previous therapy: 1) Apalutamide. Started September 2021. Stopped in June 2022 due to generalized weakness and malaise. Current treatment: 1) Lupron every 3 months. 2) Zometa every 6 months Interim history: Doing ok. Balance is pretty bad using rollator today. He is following with neuro, recent referral to spine. Denies new aches or pains. Chronic knee pain L>R. Considering a replacement. Denies new or worsening SOB, CP, or palpitations. No changes in bowel or bladder habits. No rash or skin changes. Denies bleeding or bruising. Denies HF, NS. Overall tolerating injections well. CLINICAL IMPRESSION: Prostate cancer biochemical relapse, bone scan in 2021 suggested bone mets (report is listed in scanned documents labelled bone density). Doing well on GnRH agonist alone PSA remains stable RECOMMENDATION/PLAN: 1. Continue lupron q 3 months, will add back apalutamide if PSA continues to climb. 2. Zometa every 3 months 3. Follow PSA PAST MEDICAL HISTORY Diagnosis Date Bone metastases 10/08/2021 HTN (hypertension) Malignant neoplasm 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) Prostate cancer (HCC) SCC (squamous cell carcinoma), face PAST SURGICAL HISTORY Procedure Laterality Date PROSTATECTOMY;RADICAL RETROPUBIC 1996 FAMILY HISTORY Problem Relation Age of Onset Breast Cancer Mother Cancer Father Social History Tobacco Use Smoking status: Never Smokeless tobacco: Never Vaping Use Vaping status: Never Used Substance Use Topics Alcohol use: No Drug use: Never ALLERGIES: ALLERGIES Allergen Reactions Lisinopril Cough CURRENT OUTPATIENT MEDICATIONS: oxyCODONE-acetaminophen (PERCOCET) 5-325 mg tablet^Take 1 tablet by mouth every 6 hours as needed.^Disp: ^Rfl: losartan (COZAAR) 25 mg tablet^Take 25 mg by mouth once daily.^Disp: ^Rfl: ergocalciferol 50,000 unit capsule (VITAMIN D2, DRISDOL)^Take 1 capsule by mouth one time a week.^Disp: 12 capsule^Rfl: 3 meloxicam (MOBIC) 7.5 mg tablet^Take 7.5 mg by mouth once daily.^Disp: ^Rfl: magnesium hydroxide (MAGNESIA ORAL)^Take 400 mg by mouth once daily as needed (constipation).^Disp: ^Rfl: (Patient taking differently: Take 400 mg by mouth once daily.) POTASSIUM-99 ORAL^Take 1 tablet by mouth once daily.^Disp: ^Rfl: ubidecarenone (ULTRA COQ10 ORAL)^Take by mouth once daily.^Disp: ^Rfl: hydroCHLOROthiazide (HYDRODIURIL, ESIDRIX) 12.5 mg capsule^Take 12.5 mg by mouth once daily.^Disp: ^Rfl: metoprolol tartrate, short acting, (LOPRESSOR) 50 mg tablet^Take 25 mg by mouth two times a day.^Disp: ^Rfl: atorvastatin 40 mg tablet^Take 20 mg by mouth once daily.^Disp: ^Rfl: aspirin, enteric coated 81 mg EC tablet^Take 81 mg by mouth once daily.^Disp: ^Rfl: GLUCOSAM/MSM/CHONDR/VIT C/HYAL ([id number]-[id number]-VER ORAL)^Take 1 tablet by mouth two times a day.^Disp: ^Rfl: nitroglycerin sublingual (NITROQUICK) 0.4 mg SL tablet^Dissolve 0.4 mg under the tongue every 5 minutes as needed.^Disp: ^Rfl: Fish Oil-Shields-3 Fatty Acids 500-300 mg ORAL Cap^Take by mouth.^Disp: ^Rfl: 0 ergocalciferol, vitamin D2, (VITAMIN D2 ORAL)^Take by mouth.^Disp: ^Rfl: (Patient not taking: Reported on 08/20/2024) oxybutynin XL (DITROPAN XL) 5 mg 24 hr tablet^Take 1 tablet by mouth once daily.^Disp: 90 tablet^Rfl: 3 (Patient not taking: Reported on 08/20/2024) OTC PRODUCT^Take 1,500 mg by mouth two times a day. Lipozene^Disp: ^Rfl: (Patient not taking: Reported on 08/20/2024) apalutamide (ERLEADA) 60 mg tablet^Take 3 tablets (180mg) by mouth once daily.^Disp: 90 tablet^Rfl: 2 (Patient not taking: Reported on 08/20/2024) losartan (COZAAR) 25 mg tablet^Take 25 mg by mouth once daily.^Disp: ^Rfl: (Patient not taking: Reported on 08/20/2024) Calcium Carbonate-Vitamin D3 600mg (1,000mg) -1,000 unit ORAL Tab^Take 1 tablet by mouth once daily.^Disp: 30 tablet^Rfl: 6 (Patient not taking: Reported on 08/20/2024) REVIEW OF SYSTEMS: GENERAL: No fever, night sweats, weight loss or malaise. All other reviewed and negative other than HPI. All systems reviewed on 08/20/2024 with pertinent positives and negatives as outlined in the interval history. PHYSICAL EXAMINATION: VITAL SIGNS: BP 142/82 Pulse 83 Temp (Src) 98.5 (Temporal) Wt 185 lb 8 oz (84.1kg) SpO2 98% GENERAL APPEARANCE: fatigued, in no acute distress, alert and oriented x3, well-hydrated, well nourished. HEART: regular rhythm CHEST: Clear bilaterally EXTREMITIES: no edema. I have performed the physical exam today (08/20/2024) and have edited the note to correlate with current findings. Crissy Mai APRN.COLD MILL INSPECTOR I spent a total of 30 minutes on the date of the service which included preparing to see the patient, [id number] patient care, completing clinical documentation, obtaining and/or reviewing separately obtained history, and counseling and educating the patient/family/caregiver. Portions of this note including HPI, ROS, impression/plan may have been copied forward as to provide important historical information essential in contributing to medical decision making. Documentation has been reviewed and edited as necessary to support clinical decision making for today's visit and to reflect my own independent evaluation of this patient. documented in this encounter [facility] 07-25-2024 Discharge summary Note Date/Time July 25, 2024 3:56pm [facility] [address] [place] [address] / REHABILITATION SERVICES DISCHARGE SUMMARY MR#: [id number] Acct: [id number] Name: ALEX CARPENTER Rep #: [id number] : 1935 88 From: Otto Shirley DPT, OCS, CSCS Referring Dr.: Dr. Otto Subramanian MD Status: REG RCR Insurance: [facility] SELF PAY INSURANCE Patient Information Patient Information: ALEX CARPENTER was seen in my office for initial evaluation on 04/15/24. The following Plan of Care was established for this patient: POC Established Initial Frequency: 2x /Week Initial Duration: 4-6 Weeks Last Seen Last Seen: This patient was last seen in our office 05/23/24. Pertinent comments regardingtheir Physical therapy will appear below: Pt seen 9 visits and was 20% better. He was not overly compliant with exercisesbut thought he could do better and new POC established but pt did not schedule or attend. At this point, it has been over two months and I will discontinue from my care. At this point I will be discontinuing this patient from physical therapy. I would be happy to see this patient again in the future if found appropriate by the physician. Thank you! Otto Shirley DPT, OCS, CSCS Balance/Gait/Functional tests Balance/Special Test Scores Functional Gait Assessment Score: 12 % Disability: 60.0000 CATSIB Score (Max score 120 seconds): 102 Lower Extremity Functional Score: 20 TUG Test Time Seconds: 13 Tug Test: <20 sec.=mostly independent 30 Second Chair Rise Test Seconds: 8 <Electronically signed by Otto Shirley DPT, OCS, CSCS> 07/25/24 0466 CC: Dr. Otto Subramanian MD ~ EBG Signed [facility] Work Phone: 1(433) 872-553305-08-2025 Discharge summary [facility] [address] [place] [address] / REHABILITATION SERVICES DISCHARGE SUMMARY MR#: [id number] Acct: [id number] Name: ALEX CARPENTER Rep #: [id number] : 1935 88 From: Otto BARBOZAT, OCS, CSCS Referring Dr.: Dr. Otto Subramanian MD Status: REG RCR Insurance: [facility] SELF PAY INSURANCE Patient Information Patient Information: ALEX CARPENTER was seen in my office for initial evaluation on 04/15/24. The following Plan of Care was established for this patient: POC Established Initial Frequency: 2x /Week Initial Duration: 4-6 Weeks Last Seen Last Seen: This patient was last seen in our office 05/23/24. Pertinent comments regardingtheir Physical therapy will appear below: Pt seen 9 visits and was 20% better. He was not overly compliant with exercisesbut thought he coulddo better and new POC established but pt did not schedule or attend. At this point, it has been over two months and I will discontinue from my care. At this point I will be discontinuing this patient from physical therapy. I would be happy to see this patient again in the future if found appropriate by the physician. Thank you! Otto Shirley, RONNA, OCS, CSCS Balance/Gait/Functional tests Balance/Special Test Scores Functional Gait Assessment Score: 12 % Disability: 60.0000 CATSIB Score (Max score 120 seconds): 102 Lower Extremity Functional Score: 20 TUG Test Time Seconds: 13 Tug Test: <20 sec.=mostly independent 30 Second Chair Rise Test Seconds: 8 07/25/24 1556 CC: Dr. 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 June 27, 2024 10:37am [facility] Work Phone: 1(715) 322-312604-01-2025 Instructions* Patient Instructions* Leisa Robb PA-C - 06/18/2024 2:20 PM EDT Follow up with your primary care for stroke prevention, continue with aspirin daily General guidelines for stroke risk factor management, if present Hypertension Target blood pressure <140/90, <130/80 for high risk; normal is 120/80 Hyperlipidemia Target total cholesterol < 200 Target LDL <100, < 70 for high risk Target HDL >45 for men, >55 for women Target triglycerides <150 Diabetes Target HgbA1c <7% Smoking Target is smoking cessation Physical inactivity Target is exercise at least 3 times per week Target waist circumference, in inches is <35 for women and <40 for men See [facility] for lumbar stenosis [phone] Follow up as needed [facility] NoteHNO ID: [id number] Author: LEISA ROBB PA-C Service: ? Author Type: Physician Production Control Coordinating Clerk Type: Progress Notes Filed: 06/18/2024 14:43 Note Text: [facility] Name: Alex Carpenter Age: [age] year old Gender: male Primary Care Provider: Otto Subramanian MD Assessment/Plan: 06/18/2024 - General Neurology, Leisa Robb PA-C ASSESSMENT ASSESSMENT/PLAN: 1. Recurrent falls - ICD9: V15.88, ICD10: R29.6 (primary diagnosis) 2. Neuropathy - ICD9: 355.9, ICD10: G62.9 3. Loss of balance - ICD9: 781.99, ICD10: R26.89 4. History of stroke - ICD9: V12.54, ICD10: Z86.73 5. Low back pain, unspecified back pain laterality, unspecified chronicity, unspecified whether sciatica present - ICD9: 724.2, ICD10: M54.50 6. Spinal stenosis of lumbar region, unspecified whether neurogenic claudication present - ICD9: 724.02, ICD10: M48.061 7. Intracranial carotid stenosis, unspecified laterality - ICD9: 433.10, ICD10: I65.29 Patient presents with his to review imaging. Over the last few years patient has had frequent falls. Last fall was 3 weeks ago, states that he turned too quickly and fell to the ground due to imbalance. Since this is the cause of many of his falls, no syncope or loss of consciousness. 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 Imaging was obtained of the brain to look for signs of NPH or other intracranial etiology, does show history of cerebellar strokes and MRA of the head and neck showing occlusion of the left vertebral artery and other stenosis throughout the brain. Patient is on aspirin and statin medications at this time. Discussed risk factors that contribute to worsening intracranial stenosis and to follow-up primary care for cholesterol management. Additionally, lumbar MRI did show diffuse degeneration throughout the spine with no major stenosis. Referred to spine for further evaluation. No signs or symptoms of acute cord compression at this time. Discussed conservative therapy that can also help including exercise and strength training. No other new symptoms that would warrant additional workup at this time. Patient encouraged to follow-up with primary care for stroke management and to continue with his aspirin and statin medications. Blood pressure stable in the office today. Patient and agreeable to treatment plan of care at this time, questions were answered. Patient follow-up as needed. Leisa Robb PA-C Encounter Diagnosis ICD-10-CM 1. Recurrent falls R29.6 2. Neuropathy G62.9 3. Loss of balance R26.89 4. History of stroke Z86.73 5. Low back pain, unspecified back pain laterality, unspecified chronicity, unspecified whether sciatica present M54.50 6. Spinal stenosis of lumbar region, unspecified whether neurogenic claudication present M48.061 Return if symptoms worsen or fail to improve. Chart, labs,and relevant images reviewed. Chief Complaint:Patient presents with: New Patient: Recurrent falls Chart Review: 05/24/[address] Stockton ASSESSMENT/PLAN: 1. Recurrent falls - ICD9: V15.88, ICD10: R29.6 (primary diagnosis) 2. Loss of balance - ICD9: 781.99, ICD10: R26.89 3. History of prostate cancer - ICD9: V10.46, ICD10: Z85.46 4. History of stroke - ICD9: V12.54, ICD10: Z86.73 5. Neuropathy - ICD9: 355.9, ICD10: G62.9 Patient with recurrent falls as above, of which etiology is uncertain at this time. Neurologic exam concerning for lower ext sensory deficits suggestive of both large and small fiber neuropathy, abnormal magnetic gait suggestive of NPH, and focal neuro deficits including LUE weakness suggestive of possible stroke. 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 Also in ddx given history of prostate ca with bone mets would be L spine disease with cord compression - less likely by exam but still needs to be considered. Note that while urinary issues likely related to known prostate disease, also need to consider possible NPH or L spine disease as a cause. To further evaluate the ddx above, will get MRI brain wwo contrast, as well as MRA head and neck given chronic strokes on imaging (no vertigo or lightheadedness but also consider VBI). Will also get MRI L spine wwo contrast to evaluate for met lesions. Considered imaging C and T spine as well, but would like to get results first of these imaging studies before determine further workup or treatment plan -- brain and L spine at this time would appears to be the most likely levels for an etiology of s/s. As for neuropathy, again noted on exam and do not feel EMG/NCV will provide any additional information. Possibly due to malignancy or chemo (ne (more content not included)...[facility]04-01-2025 History of Present illness Narrative* Leisa Robb PA-C - 06/18/2024 1:32 PM EDT Images from the original note were not included. [facility] Name: Alex Carpenter Age: [age] year old Gender: male Primary Care Provider: Otto Subramanian MD Assessment/Plan: 06/18/2024 - General Neurology, Leisa Robb PA-C ASSESSMENT ASSESSMENT/PLAN: 1. Recurrent falls - ICD9: V15.88, ICD10: R29.6 (primary diagnosis) 2. Neuropathy - ICD9: 355.9, ICD10: G62.9 3. Loss of balance - ICD9: 781.99, ICD10: R26.89 4. History of stroke - ICD9: V12.54, ICD10: Z86.73 5. Low back pain, unspecified back pain laterality, unspecified chronicity, unspecified whether sciatica present - ICD9: 724.2, ICD10: M54.50 6. Spinal stenosis of lumbar region, unspecified whether neurogenic claudication present - ICD9: 724.02, ICD10: M48.061 7. Intracranial carotid stenosis, unspecified laterality - ICD9: 433.10, ICD10: I65.29 Patient presents with his to review imaging. Over the last few years patient has had frequent falls. Last fall was 3 weeks ago, states that he turned too quickly and fell to the ground due to imbalance. Since this is the cause of many of his falls, no syncope or loss of consciousness. 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 Imaging was obtained of the brain to look forsigns of NPH or other intracranial etiology, does show history of cerebellar strokes and MRA of thehead and neck showing occlusion of the left vertebral artery and other stenosis throughout the brain. Patient is on aspirin and statin medications at this time. Discussed risk factors that contributeto worsening intracranial stenosis and to follow-up primary care for cholesterol management. Additionally, lumbar MRI did show diffuse degeneration throughout the spine with no major stenosis. Referred to spine for further evaluation. No signs or symptoms of acute cord compression at this time. Discussed conservative therapy that can also help including exercise and strength training. No other new symptoms that would warrant additional workup at this time. Patient encouraged to follow-up with primary care for stroke management and to continue with his aspirin and statin medications. Blood pressure stable in the office today. Patient and agreeable to treatment plan of care at this time,questions were answered. Patient follow-up as needed. Leisa Robb PA-C Encounter Diagnosis ICD-10-CM 1. Recurrent falls R29.6 2. Neuropathy G62.9 3. Loss of balance R26.89 4. History of stroke Z86.73 5. Low back pain, unspecified back pain laterality, unspecified chronicity, unspecified whether sciatica present M54.50 6. Spinal stenosis of lumbar region, unspecified whether neurogenic claudication present M48.061 Return if symptoms worsen or fail to improve. Chart, labs,and relevant images reviewed. Chief Complaint:Patient presents with: New Patient: Recurrent falls Chart Review: 05/24/[address] Stockton ASSESSMENT/PLAN: 1. Recurrent falls - ICD9: V15.88, ICD10: R29.6 (primary diagnosis) 2. Loss of balance - ICD9: 781.99, ICD10: R26.89 3. History of prostate cancer - ICD9: V10.46, ICD10: Z85.46 4. History of stroke - ICD9: V12.54, ICD10: Z86.73 5. Neuropathy - ICD9: 355.9, ICD10: G62.9 Patient with recurrent falls as above, of which etiology is uncertain at this time. Neurologic examconcerning for lower ext sensory deficits suggestive of both large and small fiber neuropathy, abnormal magnetic gait suggestive of NPH, and focal neuro deficits including LUE weakness suggestive of possible stroke. 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 Also in ddx given history of prostate ca with bone mets would be L spine disease with cord compression - less likely by exam but still needs to be considered. Note thatwhile urinary issues likely related to known prostate disease, also need to consider possible NPH or L spine disease as a cause. To further evaluate the ddx above, will get MRI brain wwo contrast, as well as MRA head and neck given chronic strokes on imaging (no vertigo or lightheadedness but also consider VBI). Will also get MRI L spine wwo contrast to evaluate for met lesions. Considered imaging C and T spine as well, but would like to get results first of these imaging studies before determine further workup or treatment plan -- brain and L spine at this time would appears to be the most likely levels for an etiology of s/s. As for neuropathy, again noted on exam and do not feel EMG/NCV will provide any additional information. Possibly due to malignancy or chemo (need clarification as to what pt received). I will a lso request recent labs from PCP office to evaluate for other causes of neuropathy such as DM, B12 deficiency, thyroid dz... Depending on what labs are available, may need to order additional labs, but again, will review those of PCP so as to not repeat labs already completed. Pt will follow up after MRIs complete. Kaushal Stockton MD HPI: Sent to spine by Dr. Stockton on 06/04/24 due to lumbar stenosis. Last seen on 05/24/24 for frequent falls ongoing for two years. Ordered MRI brain, MRA brain and neck, MRI L spine. Ordered labs but did not get. MRA showing occlusion of left vert and intracranial stenosis. Patient presents with his for follow-up appointment to review imaging. Last fall was 3 weeks ago, otherwise no falls since last appointment. Notes that he turned around quickly and lost his balance causing him to fall onto the ground. No major injuries with this. States that most of his falls are due to this, states he has some issues with balance. Attributes some of it to his chronic knee pain which is improved after following with pain management, Dr. Nails and had an ablation done to the knee. Denies any lightheadedness or syncope. No other new concerns today. 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 oxybutynin XL (DITROPAN XL) 5 mg 24 hr tablet Take 1 tablet by mouth once daily. OTC PRODUCT Take 1,500 mg by mouth two times a day. Lipozene meloxicam (MOBIC) 7.5 mg tablet Take 7.5 mg by mouth once daily. magnesium hydroxide (MAGNESIA ORAL) Take 250 mg by mouth once daily as needed (constipation). POTASSIUM-99 ORAL Take 1 tablet by mouth once daily. ubidecarenone (ULTRA COQ10 ORAL) Take by mouth once daily. apalutamide (ERLEADA) 60 mg tablet Take 3 tablets (180mg) by mouth once daily. hydroCHLOROthiazide (HYDRODIURIL, ESIDRIX) 12.5 mg capsule Take 12.5 mg by mouth once daily. losartan (COZAAR) 25 mg tablet Take 25 mg by mouth once daily. metoprolol tartrate, short acting, (LOPRESSOR) 50 mg tablet Take 50 mg by mouth twice daily. atorvastatin 40 mg tablet Take 20 mg by mouth once daily. aspirin, enteric coated 81 mg EC tablet Take 81 mg by mouth once daily. GLUCOSAM/MSM/CHONDR/VIT C/HYAL (HYSBIPZOMUY-VITKOCCALFO-JMN ORAL) Take 1 tablet by mouth two times a day. nitroglycerin sublingual 0.3 mg SL tablet Dissolve 0.3 mg under the tongue every 5 minutes as needed. Calcium Carbonate-Vitamin D3 600mg (1,000mg) -1,000 unit ORAL Tab Take 1 tablet by mouth once daily. Fish Oil-Shields-3 Fatty Acids 500-300 mg ORAL Cap Take by mouth. ALLERGIES Allergen Reactions Lisinopril Cough FAMILY HISTORY Problem Relation Age of Onset Breast Cancer Mother Cancer Father PAST SURGICAL HISTORY Procedure Laterality Date PROSTATECTOMY;RADICAL RETROPUBIC 1996 Social Hx: @Alcohol Use: Not on file Tobacco Use: Low Risk (05/28/2024) Patient History Smoking Tobacco Use: Never Smokeless Tobacco Use: Never Passive Exposure: Not on file 06/18/24 1343 BP: 123/73 Pulse: 82 Neurologic Exam Cognitive and Language: Alert and answered questions appropriately. Language was fluent. Cranial Nerves: Extraocular movements were full with no diplopia or nystagmus. Facial strength was symmetric. Hearing is poor Motor: Moves all 4 extremities without difficulty Sensory: No significant evidence of neglect Coordination: Ambulates with a cane, wide-based but no shuffling Labs: Lab Results Component Value Date WBC 15.05 (H) 05/28/2024 HCT 40.9 05/28/2024 MCV 93.0 05/28/2024 PLT 329 05/28/2024 Lab Results Component Value Date HBA1C 6.1 07/12/2010 Cholesterol, Total Date Value Ref Range Status 07/12/2010 201 (H) 100 - 199 mg/dL Final HDL Cholesterol Date Value Ref Range Status 07/12/2010 49 >45 mg/dL Final LDL Cholesterol Date Value Ref Range Status 07/12/2010 130 (H) 60 - 129 mg/dL Final Triglyceride Date Value Ref Range Status 07/12/2010 110 30 - 149 mg/dL Final Results for orders placed or performed in visit on 05/28/24 PSA/PROSTSPECAG DIAG Result Value Ref Range PSA 0.14 <2.60 ng/mL COMPLETE BLOOD COUNT AND DIFFERENTIAL Result Value Ref Range WBC 15.05 (H) 3.70 - 11.00 k/uL RBC 4.40 4.20 - 6.00 m/uL Hemoglobin 13.7 13.0 - 17.0 g/dL Hematocrit 40.9 39.0 - 51.0 % MCV 93.0 80.0 - 100.0 fL MCH 31.1 26.0 - 34.0 pg MCHC 33.5 30.5 - 36.0 g/dL RDW-CV 12.9 11.5 - 15.0 % Platelet Count 329 150 - 400 k/uL MPV 10.1 9.0 - 12.7 fL Neutrophils % 85.7 % Abs Neut 12.88 (H) 1.45 - 7.50 k/uL Lymphocytes % 5.7 % Abs Lymph 0.86 (L) 1.00 - 4.00 k/uL Monocytes % 7.2 % Abs [place] 1.09 (H) <0.87 k/uL Eosinophils % 0.4 % Abs Eosin 0.06 <0.46 k/uL Basophils % 0.3 % Abs Baso 0.05 <0.11 k/uL Immature Granulocytes % 0.7 % Abs Immature Gran 0.11 (H) <0.10 k/uL NRBC 0.0 /100 WBC Absolute nRBC <0.01 <0.01 k/uL Diff Type Auto COMPREHENSIVE METABOLIC PANEL Result Value Ref Range Protein, Total 6.8 6.3 - 8.0 g/dL Albumin 4.1 3.9 - 4.9 g/dL Calcium, Total 9.4 8.5 - 10.2 mg/dL Bilirubin, Total 0.8 0.2 - 1.3 mg/dL Alkaline Phosphatase 89 38 - 113 U/L AST 17 14 - 40 U/L ALT 9 (L) 10 - 54 U/L Glucose 132 (H) 74 - 99 mg/dL BUN 25 (H) 9 - 24 mg/dL Creatinine 1.02 0.73 - 1.22 mg/dL Sodium 138 136 - 144 mmol/L Potassium 3.4 (L) 3.7 - 5.1 mmol/L Chloride 101 98 - 107 mmol/L CO2 26 22 - 30 mmol/L Anion Gap 11 8 - 15 mmol/L Estimated Glomerular Filtration Rate 71 >=60 mL/min/1.73m Radiology: MRI Head/Brain - Last 2 Impressions MRI BRAIN WO/W IVCON Exam End: 06/04/2024 10:35 AM (Final result) Impression: IMPRESSION: No acute intracranial process. Chronic changes and multiple remote infarcts. ... , MRA Head and/or Neck - Last 2 Impressions MRA BRAIN WO IVCON Exam End: 06/04/2024 10:35 AM (Final result) Impression: IMPRESSION: No acute intracranial process. 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 Patent intracranial circulation. Flight Information Expediter: BLESSING Transcribe Date/Time: Jun 04 2024 10:48A Dictated by : BRITTANIE MURCIA MD This examination was interpreted and the report reviewed and electronically signed by: BRITTANIE MURCIA MD on Jun 04 2024 11:12AM EST , and MRI Spine - Last 2 Impressions MRI LUMBAR SPINE WO/W IVCON Exam End: 06/04/2024 10:35 AM (Final result) Impression: IMPRESSION: Degenerative changes at multiple levels most severe at L3-L4 as itemized above. Anatomic Lumbar Variant: None. L4-5 is considered the level of the iliac crest and assume there are 5 lumbar-type vertebrae. Flight Information Expediter: BLESSING Transcribe Date/Time: Jun 04 2024 11:13A Dictated by : BRITTANIE MURCIA MD This examination was interpreted and the report reviewed and electronically signed by: BRITTANIE MURCIA MD on Jun 04 2024 11:17AM EST This note was dictated using [employer] speech recognition software and may contain some errors that were a result of the program not accurately transcribing what was dictated, despite efforts to make corrections. Note that unless urgent, test and MRI results will be discussed at next follow- up visit. PROMIS (Patient-Reported Outcomes Measurement Information System) is a set of person-centered measures that evaluates and monitors physical, social, and emotional health. It can be used with the general population and with individuals living with chronic conditions. PROMIS 10: PHYSICAL AND MENTAL HEALTH: Medical Decision Making: Medical Decision Making Level: 1 - N/A I spent a total of 40 minutes on the date of the service which included preparing to see the patient, [id number] patient care, completing clinical documentation, obtaining and/or reviewing separately obtained history, performing a medically appropriate examination, counseling and educating the pat ient/family/caregiver, and ordering medications, tests, or procedures. [facility] Telephone encounter Note * Telephone Encounter - Guzman Sánchez LPN - 06/04/2024 2:44 PM EDT Called and spoke to patient, advised of message below. Patient verbalized understanding. Patient does not want to go outside [facility] to see specialist. Advised [place] does have packaging specialist. Patient would like consult placed, once consult placed nurse will fax consult over to [place]. Patient in agreement with plan. Please place order. Guzman Sánchez LPN June 04, 2024 2:45 PM [facility]03-18-[facility] Miscellaneous Notes* Telephone Encounter - Guzman Sánchez LPN - 06/04/2024 2:44 PM EDT Called and spoke to patient, advised of message below. Patient verbalized understanding. Patient does not want to go outside [facility] to see specialist. Advised [place] does have packaging specialist. Patient would like consult placed, once consult placed nurse will fax consult over to [place]. Patient in agreement with plan. Please place order. 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 Would like pt to see Spine/NSGY. If he agrees, will placereferral. 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 Would like pt to see Spine/NSGY. If he agrees, will placereferral. Thank you, Kaushal Stockton MD [facility]03-18-[facility] History of Present illness Narrative* Maty Tran RT(R) - 06/04/2024 9:00 AM EDT Radiology Service Progress Note DATE OF SERVICE: June 04, 2024 TIME: 9:20 AM PATIENT IDENTITY VERIFICATION COMPLETED USING TWO (2) STANDARD IDENTIFIERS: Name and Date of confirmed by patient verbally. FALL SCREENING: Has the patient had 2 falls in the last year or 1 fall with injury or currently using an Ambulatory Assistive Device (Walker, Cane, Wheelchair, Crutches, etc.)? Yes, Patient High Riskfor Falls What interventions were put in place to prevent falls during this visit? Instructed Patient to Callfor Help if Needed, Offered Assistance with Transfers/Clothing, Instructed Patient to Remain Seated(Not on Exam Table) Until Exam, and Increased Observations by Caregivers PATIENT GENDER DATA: Assigned male at PATIENT RELEVANT IMPLANT DATA REVIEWED: Yes PATIENT PRESENTS WITH AN IMPLANTABLE OR ATTACHED DIRECTOR OF ADVERTISING SALES: No ALLERGIES: Reviewed and unchanged CONTRAST ALLERGY: NO. EXAM: MRI - CONTRAST TYPE: GROUP II PERIPHERAL IV DATA: Ambulatory: A peripheral IV was started in the Left antecubital site with a Angio cath: 22 gauge. RADIOLOGY DEPARTMENT: MR; Exam(s) Completed: Head: Routine Brain [place] MRA Neck: Carotids MRA, bilateral Spine: Lumbar spine SIGNATURE: RT Luis(R) PATIENT NAME: Alex Carpenter DATE: June 04, 2024 TIME: 9:20 AM documented in this encounterMer[facility]03-[facility]25 NoteHNO ID: [id number] Author: MATY TRAN RT(R) Service: ? Author Type: Technologist Type: Progress Notes Filed: 06/04/2024 09:21 Note Text: Radiology Service Progress Note DATE OF SERVICE: June 04, 2024 TIME: 9:20 AM PATIENT IDENTITY VERIFICATION COMPLETED USING TWO (2) STANDARD IDENTIFIERS: Name and Date of confirmed by patient verbally. FALL SCREENING: Has the patient had 2 falls in the last year or 1 fall with injury or currently using an Ambulatory Assistive Device (Walker, Cane, Wheelchair, Crutches, etc.)? Yes, Patient High Risk for Falls What interventions were put in place to prevent falls during this visit? Instructed Patient to Call for Help if Needed, Offered Assistance with Transfers/Clothing, Instructed Patient to Remain Seated (Not on Exam Table) Until Exam, and Increased Observations by Caregivers PATIENT GENDER DATA: Assigned male at PATIENT RELEVANT IMPLANT DATA REVIEWED: Yes PATIENT PRESENTS WITH AN IMPLANTABLE OR ATTACHED DIRECTOR OF ADVERTISING SALES: No ALLERGIES: Reviewed and unchanged CONTRAST ALLERGY: NO. EXAM: MRI - CONTRAST TYPE: GROUP II PERIPHERAL IV DATA: Ambulatory: A peripheral IV was started in the Left antecubital site with a Angio cath: 22 gauge. RADIOLOGY DEPARTMENT: MR; Exam(s) Completed: Head: Routine Brain [place] MRA Neck: Carotids MRA, bilateral Spine: Lumbar spine SIGNATURE: RT Luis(Dipesh) PATIENT NAME: Alex Carpenter DATE: June 04, 2024 TIME: 9:20 [facility]03-11-2025 NoteHNO ID: [id number] Author: ELIJAH MERCHANT RN Service: ? Author Type: Registered Nurse Type: Progress Notes Filed: 05/28/2024 14:05 Note Text: OV prior to tx. Elijah Merchant RNThe [facility] History of Present illness Narrative* Elijah Merchant RN - 05/28/2024 1:58 PM EDT OV prior to tx. Elijah Merchant RN documented in this encounterMer[facility]03-11-[facility]25 NoteHNO ID: [id number] Author: EVERETT ALDRICH MD Service: ? Author Type: Physician Type: Progress Notes Filed: 05/28/2024 13:07 Note Text: (Elements copied from my note dated March 05, 2024, have been reviewed and updated where appropriate, and all reflect current assessment and medical decision making from today's encounter, May 28, 2024) HISTORY OF PRESENT ILLNESS: Alex Carpenter is a 87 year old male diagnosed with prostate cancer in 1998, status post radical prostatectomy for [place] score 6 = 3+3. He had been on intermittent ADT for biochemical failure, elevated PSA, in the past. Component Latest Ref Rng AND Units 03/04/2019 03/06/2019 07/05/2019 09/23/2020 PSA 0.00 - 2.59 ng/mL 29.01 (H) 33.08 (H) 0.25 0.92 He had not had LHRH injection until recently when his PSA was over 210 by his primary care physician because of generalized aches and pain. Subsequent CT scan of the abdomen pelvis and bone scan recently showed findings suggestive of metastatic deposit along the anterior aspect of the right seventh rib in the pedicle of the left side of T12. There is left hemisacrum activity as well. Degenerative changes noted in both knees and both shoulder joints. His bone density test within the last year showed evidence of osteopenia. Started back on androgen deprivation therapy with Eligard in September 2021, due to PSA 246. He had no hot flashes, increased fatigue or muscle weakness. He denied difficulty with urination. He had general arthritis pain in both knee and shoulder along with generalized aching. No change in weight or appetite. CT scans negative, bone scan in 2021 suggested bone mets Previous therapy: 1) Apalutamide. Started September 2021. Stopped in June 2022 due to generalized weakness and malaise. Current treatment: 1) Lupron every 3 months. 2) Zometa every 6 months Interim history: Doing well. Left knee osteoarthritis. CLINICAL IMPRESSION: Prostate cancer biochemical relapse, bone scan in 2021 suggested bone mets (report is listed in scanned documents labelled bone density). Doing well on GnRH agonist alone RECOMMENDATION/PLAN: 1. Continue lupron q 3 months, will add back apalutamide if PSA continues to climb. 2. Zometa every 3 months 3. Follow PSA Written and verbal health teaching given to patient, patient verbalizes understanding and agrees with treatment plan. PAST MEDICAL HISTORY Diagnosis Date Bone metastases 10/08/2021 HTN (hypertension) Malignant neoplasm 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) Prostate cancer (HCC) SCC (squamous cell carcinoma), face PAST SURGICAL HISTORY Procedure Laterality Date PROSTATECTOMY;RADICAL RETROPUBIC 1996 FAMILY HISTORY Problem Relation Age of Onset Breast Cancer Mother Cancer Father Social History Tobacco Use Smoking status: Never Smokeless tobacco: Never Vaping Use Vaping status: Never Used Substance Use Topics Alcohol use: No Drug use: Never ALLERGIES: ALLERGIES Allergen Reactions Lisinopril Cough CURRENT OUTPATIENT MEDICATIONS: ergocalciferol 50,000 unit capsule (VITAMIN D2, DRISDOL) Take 1 capsule by mouth one time a week. oxybutynin XL (DITROPAN XL) 5 mg 24 hr tablet Take 1 tablet by mouth once daily. OTC PRODUCT Take 1,500 mg by mouth two times a day. Lipozene meloxicam (MOBIC) 7.5 mg tablet Take 7.5 mg by mouth once daily. magnesium hydroxide (MAGNESIA ORAL) Take 250 mg by mouth once daily as needed (constipation). POTASSIUM-99 ORAL Take 1 tablet by mouth once daily. hydroCHLOROthiazide (HYDRODIURIL, ESIDRIX) 12.5 mg capsule Take 12.5 mg by mouth once daily. losartan (COZAAR) 25 mg tablet Take 25 mg by mouth once daily. (Patient taking differently: Take 25 mg by mouth every other day.) metoprolol tartrate, short acting, (LOPRESSOR) 50 mg tablet Take 50 mg by mouth twice daily. atorvastatin 40 mg tablet Take 20 mg by mouth once daily. aspirin, enteric coated 81 mg EC tablet Take 81 mg by mouth once daily. GLUCOSAM/MSM/CHONDR/VIT C/HYAL (MTGUITVIGZT-[id number]-RXS ORAL) Take 1 tablet by mouth two times a day. nitroglycerin sublingual 0.3 mg SL tablet Dissolve 0.3 mg under the tongue every 5 minutes as needed. Calcium Carbonate-Vitamin D3 600mg (1,000mg) -1,000 unit ORAL Tab Take 1 tablet by mouth once daily. ubidecarenone (ULTRA COQ10 ORAL) Take by mouth once daily. (Patient not taking: Reported on 05/28/2024) apalutamide (ERLEADA) 60 mg tablet Take 3 tablets (180mg) by mouth once daily. Fish Oil-Shields-3 Fatty Acids 500-300 mg ORAL Cap Take by mouth. (Patient not taking: Reported on 05/28/2024) REVIEW OF SYSTEMS: GENERAL: No fever, night sweats, weight loss or malaise. All other reviewed and negative other than HPI. PHYSICAL EXAMINATION: VITAL SIGNS: BP 111/73 Pulse 110 Temp (Src) 98.1 (Temporal) Wt 192 lb (87.1kg) SpO2 97% GENERAL APPEARANCE: Well appearing, in no acute distress, alert and oriented x3, well-hydrated, well nourished. I spent a tot (more content not included)...[facility]03-11-2025 History of Present illness Narrative* Everett Aldrich MD - 05/28/2024 12:48 PM EDT (Elements copied from my note dated March 05, 2024, have been reviewed and updated where appropriate, and all reflect current assessment and medical decision making from today's encounter, May 28, 2024) HISTORY OF PRESENT ILLNESS: Alex Carpenter is a 87 year old male diagnosed with prostate cancer in 1998, status post radical prostatectomy for Parish score 6 = 3+3. He had been on intermittent ADT for biochemical failure, elevated PSA, in the past. Component Latest Ref Rng & Units 03/04/2019 03/06/2019 07/05/2019 09/23/2020 PSA 0.00 - 2.59 ng/mL 29.01 (H) 33.08 (H) 0.25 0.92 He had not had LHRH injection until recently when his PSA was over 210 by his primary care physician because of generalized aches and pain. Subsequent CT scan of the abdomen pelvis and bone scan recently showed findings suggestive of metastatic deposit along the anterior aspect of the right seventhrib in the pedicle of the left side of T12. There is left hemisacrum activity as well. Degenerativechanges noted in both knees and both shoulder joints. His bone density test within the last year showed evidence of osteopenia. Started back on androgen deprivation therapy with Eligard in September 2021, due to PSA 246. He had no hot flashes, increased fatigue or muscle weakness. He denied difficulty with urination. He had general arthritis pain in both knee and shoulder along with generalized aching. No change in weight or appetite. CT scans negative, bone scan in 2021 suggested bone mets Previous therapy: 1) Apalutamide. Started September 2021. Stopped in June 2022 due to generalized weakness and malaise. Current treatment: 1) Lupron every 3 months. 2) Zometa every 6 months Interim history: Doing well. Left knee osteoarthritis. CLINICAL IMPRESSION: Prostate cancer biochemical relapse, bone scan in 2021 suggested bone mets (report is listed in scanned documents labelled bone density). Doing well on GnRH agonist alone RECOMMENDATION/PLAN: 1. Continue lupron q 3 months, will add back apalutamide if PSA continues to climb. 2. Zometa every 3 months 3. Follow PSA Written and verbal health teaching given to patient, patient verbalizes understanding and agrees with treatment plan. PAST MEDICAL HISTORY Diagnosis Date Bone metastases 10/08/2021 HTN (hypertension) Malignant neoplasm 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) Prostate cancer (HCC) SCC (squamous cell carcinoma), face PAST SURGICAL HISTORY Procedure Laterality Date PROSTATECTOMY;RADICAL RETROPUBIC 1996 FAMILY HISTORY Problem Relation Age of Onset Breast Cancer Mother Cancer Father Social History Tobacco Use Smoking status: Never Smokeless tobacco: Never Vaping Use Vaping status: Never Used Substance Use Topics Alcohol use: No Drug use: Never ALLERGIES: ALLERGIES Allergen Reactions Lisinopril Cough CURRENT OUTPATIENT MEDICATIONS: ergocalciferol 50,000 unit capsule (VITAMIN D2, DRISDOL) Take 1 capsule by mouth one time a week. oxybutynin XL (DITROPAN XL) 5 mg 24 hr tablet Take 1 tablet by mouth once daily. OTC PRODUCT Take 1,500 mg by mouth two times a day. Lipozene meloxicam (MOBIC) 7.5 mg tablet Take 7.5 mg by mouth once daily. magnesium hydroxide (MAGNESIA ORAL) Take 250 mg by mouth once daily as needed (constipation). POTASSIUM-99 ORAL Take 1 tablet by mouth once daily. hydroCHLOROthiazide (HYDRODIURIL, ESIDRIX) 12.5 mg capsule Take 12.5 mg by mouth once daily. losartan (COZAAR) 25 mg tablet Take 25 mg by mouth once daily. (Patient taking differently: Take 25mg by mouth every other day.) metoprolol tartrate, short acting, (LOPRESSOR) 50 mg tablet Take 50 mg by mouth twice daily. atorvastatin 40 mg tablet Take 20 mg by mouth once daily. aspirin, enteric coated 81 mg EC tablet Take 81 mg by mouth once daily. GLUCOSAM/MSM/CHONDR/VIT C/HYAL (AZFELBTIMDD-EHIINAHQQZU-NAM ORAL) Take 1 tablet by mouth two times a day. nitroglycerin sublingual 0.3 mg SL tablet Dissolve 0.3 mg under the tongue every 5 minutes as needed. Calcium Carbonate-Vitamin D3 600mg (1,000mg) -1,000 unit ORAL Tab Take 1 tablet by mouth once daily. ubidecarenone (ULTRA COQ10 ORAL) Take by mouth once daily. (Patient not taking: Reported on 05/28/2024) apalutamide (ERLEADA) 60 mg tablet Take 3 tablets (180mg) by mouth once daily. Fish Oil-Shields-3 Fatty Acids 500-300 mg ORAL Cap Take by mouth. (Patient not taking: Reported on 05/28/2024) REVIEW OF SYSTEMS: GENERAL: No fever, night sweats, weight loss or malaise. All other reviewed and negative other than HPI. PHYSICAL EXAMINATION: VITAL SIGNS: BP 111/73 Pulse 110 Temp (Src) 98.1 (Temporal) Wt 192 lb (87.1kg) SpO2 97% GENERAL APPEARANCE: Well appearing, in no acute distress, alert and oriented x3, well-hydrated, well nourished. I spent a total of 20 minutes on the date of the service which included preparing to see the patient, [id number] patient care, completing clinical documentation, obtaining and/or reviewing separately obtained history, ordering medications, tests, or procedures, independently interpreting results (not separately reported), and communicating results to the patient/family/caregiver. Electronically Signed: Everett Aldrich MD May 28, 2024 [facility] Telephone encounter Note * Telephone Encounter - Guzman Sánchez LPN - 05/24/2024 1:42 PM EST Request sent Guzman Sánchez LPN May 24, 2024 1:42 PM [facility]03-07-[facility]25 Miscellaneous Notes* Telephone Encounter - Guzman Sánchez LPN - 05/24/2024 1:42 PM EST Request sent Guzman Sánchez LPN May 24, 2024 1:42 PM * Telephone Encounter - Renetta Edouard LPN - 05/24/2024 11:55 AM EST Images from the original note were not included. Kaushal Stockton Jr., MD [facility] Nurse Please request recent labs including B12, sed rate, TSH, AZ, A1c, CMP from PCP office. Thank you. documented in [facility] Telephone encounter Note * Telephone Encounter - Renetta Edouard LPN - 05/24/2024 11:55 AM EST Images from the original note were not included. Kaushal Stockton Jr., MD P [facility] Nurse Please request recent labs including B12, sed rate, TSH, AZ, A1c, CMP from PCP office. Thank you. [facility]03-07-2025 NoteHNO ID: [id number] Author: KAUSHAL STOCKTON JR, MD Service: ? Author Type: Physician Type: Progress Notes Filed: 05/24/2024 11:43 Note Text: NEW PATIENT (CONSULT) HISTORY AND PHYSICAL EXAM PRIMARY CARE PHYSICIAN: Otto Subramanian MD REASON FOR CONSULT: See below. REFERRING PHYSICIAN: Everett Aldrich MD CHIEF COMPLAINT: Falling down. Consultation requested by Everett Aldrich MD for an opinion regarding chief complaint of Patient presents with: New Patient: C/o loss of balance, weakness and my final recommendations will be communicated back to the requesting physician by way of shared medical record or letter via US mail. HISTORY OF PRESENT ILLNESS: Alex Carpenter is a 88 year old male, BMI 30.67 kg/m2 with a PMH significant for that below including prostate ca with bone mets. There is no recent neuro imaging. 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 Pt reports symptoms of balance difficulties started about 1-2 years ago. Pt states he thinks it was due to starting a chemo medication or at least balance issues got worse - med was stopped but still did not improve. Pt states first of all I got knee problems and they are bone on bone. However does not feel the knees give out on him. When asked to describe a fall - last was Monday - went into door of bathroom, turned around and fell. States more difficulties when actually turning. No back pain. Poor urinary control for the past year - when asked why he cannot tell me if related directly to prostate. Overall limited historian. States at least 10 falls to the ground. Denies dizziness, vertigo or lightheadedness. Nonumbness of extremities. Hemoglobin A1C (%) Date Value 07/12/2010 6.1 No results found for: TSH No results found for: B12 No tremors or other PD symptoms endorsed. Memory decline per pt but mild. States can feel feet when touching the ground with them. adds that pt is tired quite a bit. Also state that after falls he appears different. There however is no loc or AMS. Appeared depressed. REVIEW OF SYSTEMS GENERAL:No weight loss, malaise or fevers. HEENT:Negative for frequent or significant headaches, No changes in hearing or vision, no nose bleeds or other nasal problems NECK:Negative for lumps, goiter, pain and significant neck swelling RESPIRATORY: Negative for cough, wheezing or shortness of breath. CARDIOVASCULAR: Negative for chest pain, leg swelling or palpitations. GASTROINTESTINAL: Negative for abdominal discomfort, blood in stools or black stools or change in bowel habits GENITOURINARY: No history of dysuria, frequency or incontinence MUSCULOSKELETAL: Negative for joint pain or swelling, back pain or muscle pain. NEUROLOGIC:See HPI. SKIN:Negative for lesions, rash, and itching. LAB/IMAGING: Reviewed and include: Dr. Subramanian - labs completed OSH. Will request to review so as to not repeat. WBC (k/uL) Date Value 03/05/2024 14.66 (H) RBC (m/uL) Date Value 03/05/2024 4.33 Hemoglobin (g/dL) Date Value 03/05/2024 13.7 Hematocrit (%) Date Value 03/05/2024 39.8 MCV (fL) Date Value 03/05/2024 91.9 MCH (pg) Date Value 03/05/2024 31.6 MCHC (g/dL) Date Value 03/05/2024 34.4 RDW-CV (%) Date Value 03/05/2024 13.1 Platelet Count (k/uL) Date Value 03/05/2024 305 MPV (fL) Date Value 03/05/2024 10.2 Glucose (mg/dL) Date Value 03/05/2024 169 (H) BUN (mg/dL) Date Value 03/05/2024 27 (H) Creatinine (mg/dL) Date Value 03/05/2024 0.94 Sodium (mmol/L) Date Value 03/05/2024 142 Potassium (mmol/L) Date Value 03/05/2024 3.3 (L) Chloride (mmol/L) Date Value 03/05/2024 105 CO2 (mmol/L) Date Value 03/05/2024 25 Protein, Total (g/dL) Date Value 03/05/2024 6.4 Albumin (g/dL) Date Value 03/05/2024 4.1 Calcium, Total (mg/dL) Date Value 03/05/2024 9.3 Alkaline Phosphatase (U/L) Date Value 03/05/2024 115 (H) Bilirubin, Total (mg/dL) Date Value 03/05/2024 0.5 AST (U/L) Date Value 03/05/2024 15 ALT (U/L) Date Value 03/05/2024 13 MEDICATIONS: ergocalciferol 50,000 unit capsule (VITAMIN D2, DRISDOL) Take 1 capsule by mouth one time a week. oxybutynin XL (DITROPAN XL) 5 mg 24 hr tablet Take 1 tablet by mouth once daily. OTC PRODUCT Take 1,500 mg by mouth two times a day. Lipozene (Patient not taking: Reported on 01/23/2024) meloxicam (MOBIC) 7.5 mg tablet Take 7.5 mg by mouth once daily. magnesium hydroxide (MAGNESIA ORAL) Take 250 mg by mouth once daily as needed (constipation). POTASSIUM-99 ORAL Take 1 tablet by mouth once daily. ubidecarenone (ULTRA COQ10 ORAL) Take by mouth once daily. (Patient not taking: Reported on 01/23/2024) apalutamide (ERLEADA) 60 mg tablet Take 3 tablets (180mg) by mouth once daily. (Patient not taking: Reported on 07/11/2022) hydroCHLOROthiazide (HYDRODIURIL, AKHIL (more content not included)...[facility]03-07-2025 History of Present illness Narrative* Kaushal Stockton Jr., MD - 05/24/2024 10:52 AM EST NEW PATIENT (CONSULT) HISTORY AND PHYSICAL EXAM PRIMARY CARE PHYSICIAN: Otto Subramanian MD REASON FOR CONSULT: See below. REFERRING PHYSICIAN: Everett Aldrich MD CHIEF COMPLAINT: Falling down. Consultation requested by Everett Aldrich MD for an opinion regarding chief complaint of Patient presents with: New Patient: C/o loss of balance, weakness and my final recommendations will be communicated back to the requesting physician by way of sharedmedical record or letter via [place] mail. HISTORY OF PRESENT ILLNESS: Alex Carpenter is a 88 year old male, BMI 30.67 kg/m2 with a PMH significant for that below including prostate ca with bone mets. There is no recent neuro imaging. CT brain completed on 06/22/22 at [facility] reportedly showed no acute changes but chronic infarcts in the L and R c erebellar hemispheres as well as . Pt reports symptoms of balance difficulties started about 1-2years ago. Pt states he thinks it was due to starting a chemo medication or at least balance issuesgot worse - med was stopped but still did not improve. Pt states first of all I got knee problems a nd they are bone on bone. However does not feel the knees give out on him. When asked to describe a fall - last was Monday - went into door of bathroom, turned around and fell. States more difficulties when actually turning. No back pain. Poor urinary control for the past year - when asked why he cannot tell me if related directly to prostate. Overall limited historian. States at least 10 falls to the ground. Denies dizziness, vertigo or lightheadedness. No numbness of extremities. Hemoglobin A1C (%) Date Value 07/12/2010 6.1 No results found for: TSH No results found for: B12 No tremors or other PD symptoms endorsed. Memory decline per pt but mild. States can feel feet when touching the ground with them. adds that pt is tired quite a bit. Also state that after falls he appears different. There however is no loc or AMS. Appeared depressed. REVIEW OF SYSTEMS GENERAL:No weight loss, malaise or fevers. HEENT:Negative for frequent or significant headaches, No changes in hearing or vision, no nose bleeds or other nasal problems NECK:Negative for lumps, goiter, pain and significant neck swelling RESPIRATORY: Negative for cough, wheezing or shortness of breath. CARDIOVASCULAR: Negative for chest pain, leg swelling or palpitations. GASTROINTESTINAL: Negative for abdominal discomfort, blood in stools or black stools or change in bowel habits GENITOURINARY: No history of dysuria, frequency or incontinence MUSCULOSKELETAL: Negative for joint pain or swelling, back pain or muscle pain. NEUROLOGIC:See HPI. SKIN:Negative for lesions, rash, and itching. LAB/IMAGING: Reviewed and include: Dr. Subramanian - labs completed OSH. Will request to review so as to not repeat. WBC (k/uL) Date Value 03/05/2024 14.66 (H) RBC (m/uL) Date Value 03/05/2024 4.33 Hemoglobin (g/dL) Date Value 03/05/2024 13.7 Hematocrit (%) Date Value 03/05/2024 39.8 MCV (fL) Date Value 03/05/2024 91.9 MCH (pg) Date Value 03/05/2024 31.6 MCHC (g/dL) Date Value 03/05/2024 34.4 RDW-CV (%) Date Value 03/05/2024 13.1 Platelet Count (k/uL) Date Value 03/05/2024 305 MPV (fL) Date Value 03/05/2024 10.2 Glucose (mg/dL) Date Value 03/05/2024 169 (H) BUN (mg/dL) Date Value 03/05/2024 27 (H) Creatinine (mg/dL) Date Value 03/05/2024 0.94 Sodium (mmol/L) Date Value 03/05/2024 142 Potassium (mmol/L) Date Value 03/05/2024 3.3 (L) Chloride (mmol/L) Date Value 03/05/2024 105 CO2 (mmol/L) Date Value 03/05/2024 25 Protein, Total (g/dL) Date Value 03/05/2024 6.4 Albumin (g/dL) Date Value 03/05/2024 4.1 Calcium, Total (mg/dL) Date Value 03/05/2024 9.3 Alkaline Phosphatase (U/L) Date Value 03/05/2024 115 (H) Bilirubin, Total (mg/dL) Date Value 03/05/2024 0.5 AST (U/L) Date Value 03/05/2024 15 ALT (U/L) Date Value 03/05/2024 13 MEDICATIONS: ergocalciferol 50,000 unit capsule (VITAMIN D2, DRISDOL) Take 1 capsule by mouth one time a week. oxybutynin XL (DITROPAN XL) 5 mg 24 hr tablet Take 1 tablet by mouth once daily. OTC PRODUCT Take 1,500 mg by mouth two times a day. Lipozene (Patient not taking: Reported on 01/23/2024) meloxicam (MOBIC) 7.5 mg tablet Take 7.5 mg by mouth once daily. magnesium hydroxide (MAGNESIA ORAL) Take 250 mg by mouth once daily as needed (constipation). POTASSIUM-99 ORAL Take 1 tablet by mouth once daily. ubidecarenone (ULTRA COQ10 ORAL) Take by mouth once daily. (Patient not taking: Reported on 01/23/2024) apalutamide (ERLEADA) 60 mg tablet Take 3 tablets (180mg) by mouth once daily. (Patient not taking:Reported on 07/11/2022) hydroCHLOROthiazide (HYDRODIURIL, ESIDRIX) 12.5 mg capsule Take 12.5 mg by mouth once daily. losartan (COZAAR) 25 mg tablet Take 25 mg by mouth once daily. metoprolol tartrate, short acting, (LOPRESSOR) 50 mg tablet Take 50 mg by mouth twice daily. atorvastatin 40 mg tablet Take 20 mg by mouth once daily. aspirin, enteric coated 81 mg EC tablet Take 81 mg by mouth once daily. GLUCOSAM/MSM/CHONDR/VIT C/HYAL (TBHPLDAZEKM-MOLUYFUOOZO-MDI ORAL) Take 1 tablet by mouth two times a day. nitroglycerin sublingual 0.3 mg SL tablet Dissolve 0.3 mg under the tongue every 5 minutes as needed. Calcium Carbonate-Vitamin D3 600mg (1,000mg) -1,000 unit ORAL Tab Take 1 tablet by mouth once daily. Fish Oil-Shields-3 Fatty Acids 500-300 mg ORAL Cap Take one(1) tablet daily. (Patient not taking: Reported on 03/05/2024) HISTORIES PAST MEDICAL HISTORY Diagnosis Date Bone metastases 10/08/2021 HTN (hypertension) Malignant neoplasm 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) Prostate cancer (HCC) SCC (squamous cell carcinoma), face FAMILY HISTORY Problem Relation Age of Onset Breast Cancer Mother Cancer Father SOCIAL HISTORY Social History Tobacco Use Smoking status: Never Smokeless tobacco: Never Vaping Use Vaping status: Never Used Substance Use Topics Alcohol use: No Drug use: Never PHYSICAL EXAMINATION Wt 88.8 kg (195 lb 12.8 oz) BMI 30.67 kg/m GENERAL EXAM: General appearance: NAD, pleasant. HEENT: NC/AT, nasal congestion absent, no oral lesions, membranes moist. NECK: No masses, supple. Lungs: CTA bilaterally. CV: RRR nl S1, S2. No carotid bruits. Extr: 1+ pedal and ankle edema donya. Skin: Cool to touch. NEUROLOGICAL EXAM: General: Awake, alert, oriented x3 (person,place,time), fluent, no dysarthria; comprehension, naming, repetition intact. CN: PERRL, fundi with no evidence of papilledema, EOMI and without nystagmus, VFF to confrontation,facial sensation and strength are normal and symmetric, hearing is intact to finger rub bilaterally, palate and tongue movements are intact and symmetric. SCM and trapezius strength normal. Motor: Normal tone, bulk but strength 4/5 in LUE vs 5/5 otherwise. Reflexes: Pt will not relax to get accurate results. Coordination: FNF, HTS intact. No tremors. GREG diminished in RUE. Sensation: Light touch pin, vibration, temperature diminished distal to knees in stocking pattern. No evidence of neglect. Gait: Appears wide based and magnetic in nature. Not shuffling. Romberg normal. Assessment and Plan: ASSESSMENT/PLAN: 1. Recurrent falls - ICD9: V15.88, ICD10: R29.6 (primary diagnosis) 2. Loss of balance - ICD9: 781.99, ICD10: R26.89 3. History of prostate cancer - ICD9: V10.46, ICD10: Z85.46 4. History of stroke - ICD9: V12.54, ICD10: Z86.73 5. Neuropathy - ICD9: 355.9, ICD10: G62.9 Patient with recurrent falls as above, of which etiology is uncertain at this time. Neurologic examconcerning for lower ext sensory deficits suggestive of both large and small fiber neuropathy, abnormal magnetic gait suggestive of NPH, and focal neuro deficits including LUE weakness suggestive of possible stroke. 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 Also in ddx given history of prostate ca with bone mets would be L spine disease with cord compression - less likely by exam but still needs to be considered. Note thatwhile urinary issues likely related to known prostate disease, also need to consider possible NPH or L spine disease as a cause. To further evaluate the ddx above, will get MRI brain wwo contrast, as well as MRA head and neck given chronic strokes on imaging (no vertigo or lightheadedness but also consider VBI). Will also get MRI L spine wwo contrast to evaluate for met lesions. Considered imaging C and T spine as well, but would like to get results first of these imaging studies before determine further workup or treatment plan -- brain and L spine at this time would appears to be the most likely levels for an etiology of s/s. As for neuropathy, again noted on exam and do not feel EMG/NCV will provide any additional information. Possibly due to malignancy or chemo (need clarification as to what pt received). I will a lso request recent labs from PCP office to evaluate for other causes of neuropathy such as DM, B12 deficiency, thyroid dz... Depending on what labs are available, may need to order additional labs, but again, will review those of PCP so as to not repeat labs already completed. Pt will follow up after MRIs complete. Kaushal Stockton MD Medical Decision Making: Problems: Moderate: New problem with uncertain prognosis Data: Unique test result(s) reviewed: 2 Unique test(s) ordered: 2 Medical Decision Making Level: 4 - Moderate * Guzman Sánchez LPN - 05/24/2024 10:47 AM EST documented [facility]25 NoteHNO ID: [id number] Author: GUZMAN SÁNCHEZ LPN Service: ? Author Type: LICENSED NURSE Type: Progress Notes Filed: 05/24/2024 11:43 Note Text:[facility]03-06-2025 Chief complaint+Reason for visit Narrative* Chief Complaint Admit Date BALANCE EVALUATION. RX HERE May 23 10:30am 6 M FU June 27, 2024 10: 37am INT LAB ORDERS June 27, 2024 11: 18am Reason for Visit Admit Date Carotid artery disease June 27, 2024 10:37am Nonrheumatic aortic (valve) stenosis Apr 2024 10:37am Essential hypertension June 27, 2024 10:37am Hyperlipidemia June 27, 2024 10: 37am SHAMAR (obstructive sleep apnea) June 10:37am Presence of stent in coronary artery Apr 2024 10:37am [facility] Work Phone: [phone] 467-828412-17-2024 NoteHNO ID: [id number] Author: EVERETT ALDRICH MD Service: ? Author Type: Physician Type: Progress Notes Filed: 03/05/2024 13:45 Note Text: (Elements copied from my note dated September 19, 2023, have been reviewed and updated where appropriate, and all reflect current assessment and medical decision making from today's encounter, March 05, 2024) HISTORY OF PRESENT ILLNESS: Alex Carpenter is a 87 year old male diagnosed with prostate cancer in 1998, status post radical prostatectomy for Parish score 6 = 3+3. He had been on intermittent ADT for biochemical failure, elevated PSA, in the past. Component Latest Ref Rng AND Units 03/04/2019 03/06/2019 07/05/2019 09/23/2020 PSA 0.00 - 2.59 ng/mL 29.01 (H) 33.08 (H) 0.25 0.92 He had not had LHRH injection until recently when his PSA was over 210 by his primary care physician because of generalized aches and pain. Subsequent CT scan of the abdomen pelvis and bone scan recently showed findings suggestive of metastatic deposit along the anterior aspect of the right seventh rib in the pedicle of the left side of T12. There is left hemisacrum activity as well. Degenerative changes noted in both knees and both shoulder joints. His bone density test within the last year showed evidence of osteopenia. Started back on androgen deprivation therapy with Eligard in September 2021, due to PSA 246. He had no hot flashes, increased fatigue or muscle weakness. He denied difficulty with urination. He had general arthritis pain in both knee and shoulder along with generalized aching. No change in weight or appetite. CT scans negative, bone scan in 2021 suggested bone mets Previous therapy: 1) Apalutamide. Started September 2021. Stopped in June 2022 due to generalized weakness and malaise. Current treatment: 1) Lupron every 3 months. 2) Zometa every 6 months Interim history: Doing well. CLINICAL IMPRESSION: Prostate cancer biochemical relapse, bone scan in 2021 suggested bone mets (report is listed in scanned documents labelled bone density). Doing well on GnRH agonist alone RECOMMENDATION/PLAN: 1. Continue lupron q 3 months, will add back apalutamide if PSA continues to climb. 2. Zometa every 3 months 3. Follow PSA Written and verbal health teaching given to patient, patient verbalizes understanding and agrees with treatment plan. PAST MEDICAL HISTORY Diagnosis Date Bone metastases 10/08/2021 HTN (hypertension) Malignant neoplasm 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) Prostate cancer (HCC) SCC (squamous cell carcinoma), face PAST SURGICAL HISTORY Procedure Laterality Date PROSTATECTOMY;RADICAL RETROPUBIC 1996 FAMILY HISTORY Problem Relation Age of Onset Breast Cancer Mother Cancer Father Social History Tobacco Use Smoking status: Never Smokeless tobacco: Never Vaping Use Vaping status: Never Used Substance Use Topics Alcohol use: No Drug use: Never ALLERGIES: ALLERGIES Allergen Reactions Lisinopril Cough CURRENT OUTPATIENT MEDICATIONS: oxybutynin XL (DITROPAN XL) 5 mg 24 hr tablet Take 1 tablet by mouth once daily. meloxicam (MOBIC) 7.5 mg tablet Take 7.5 mg by mouth once daily. magnesium hydroxide (MAGNESIA ORAL) Take 250 mg by mouth once daily as needed (constipation). POTASSIUM-99 ORAL Take 1 tablet by mouth once daily. hydroCHLOROthiazide (HYDRODIURIL, ESIDRIX) 12.5 mg capsule Take 12.5 mg by mouth once daily. losartan (COZAAR) 25 mg tablet Take 25 mg by mouth once daily. metoprolol tartrate, short acting, (LOPRESSOR) 50 mg tablet Take 50 mg by mouth twice daily. atorvastatin 40 mg tablet Take 20 mg by mouth once daily. aspirin, enteric coated 81 mg EC tablet Take 81 mg by mouth once daily. GLUCOSAM/MSM/CHONDR/VIT C/HYAL ([id number] ORAL) Take 1 tablet by mouth two times a day. nitroglycerin sublingual 0.3 mg SL tablet Dissolve 0.3 mg under the tongue every 5 minutes as needed. Calcium Carbonate-Vitamin D3 600mg (1,000mg) -1,000 unit ORAL Tab Take 1 tablet by mouth once daily. ergocalciferol 50,000 unit capsule (VITAMIN D2, DRISDOL) Take 1 capsule by mouth one time a week. OTC PRODUCT Take 1,500 mg by mouth two times a day. Lipozene (Patient not taking: Reported on 01/23/2024) ubidecarenone (ULTRA COQ10 ORAL) Take by mouth once daily. (Patient not taking: Reported on 01/23/2024) apalutamide (ERLEADA) 60 mg tablet Take 3 tablets (180mg) by mouth once daily. (Patient not taking: Reported on 07/11/2022) Fish Oil-Shields-3 Fatty Acids 500-300 mg ORAL Cap Take one(1) tablet daily. (Patient not taking: Reported on 03/05/2024) REVIEW OF SYSTEMS: GENERAL: No fever, night sweats, weight loss or malaise. All other reviewed and negative other than HPI. PHYSICAL EXAMINATION: VITAL SIGNS: BP 129/81 Pulse 81 Temp (Src) 98.5 (Temporal) Wt 202 lb 8 oz (91.9kg) SpO2 96% GENERAL APPEARANCE: Well appearing, in no acute distress, alert and oriented x3, well-hydrated, well nourished. I (more content not included)...[facility]12-17-2024 History of Present illness Narrative* Everett Aldrich MD - 03/05/2024 10:12 AM EST (Elements copied from my note dated September 19, 2023, have been reviewed and updated where appropriate,and all reflect current assessment and medical decision making from today's encounter, February) HISTORY OF PRESENT ILLNESS: Alex Carpenter is a 87 year old male diagnosed with prostate cancer in 1998, status post radical prostatectomy for Parish score 6 = 3+3. He had been on intermittent ADT for biochemical failure, elevated PSA, in the past. Component Latest Ref Rng & Units 03/04/2019 03/06/2019 07/05/2019 09/23/2020 PSA 0.00 - 2.59 ng/mL 29.01 (H) 33.08 (H) 0.25 0.92 He had not had LHRH injection until recently when his PSA was over 210 by his primary care physician because of generalized aches and pain. Subsequent CT scan of the abdomen pelvis and bone scan recently showed findings suggestive of metastatic deposit along the anterior aspect of the right seventhrib in the pedicle of the left side of T12. There is left hemisacrum activity as well. Degenerativechanges noted in both knees and both shoulder joints. His bone density test within the last year showed evidence of osteopenia. Started back on androgen deprivation therapy with Eligard in September 2021, due to PSA 246. He had no hot flashes, increased fatigue or muscle weakness. He denied difficulty with urination. He had general arthritis pain in both knee and shoulder along with generalized aching. No change in weight or appetite. CT scans negative, bone scan in 2021 suggested bone mets Previous therapy: 1) Apalutamide. Started September 2021. Stopped in June 2022 due to generalized weakness and malaise. Current treatment: 1) Lupron every 3 months. 2) Zometa every 6 months Interim history: Doing well. CLINICAL IMPRESSION: Prostate cancer biochemical relapse, bone scan in 2021 suggested bone mets (report is listed in scanned documents labelled bone density). Doing well on GnRH agonist alone RECOMMENDATION/PLAN: 1. Continue lupron q 3 months, will add back apalutamide if PSA continues to climb. 2. Zometa every 3 months 3. Follow PSA Written and verbal health teaching given to patient, patient verbalizes understanding and agrees with treatment plan. PAST MEDICAL HISTORY Diagnosis Date Bone metastases 10/08/2021 HTN (hypertension) Malignant neoplasm 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) Prostate cancer (HCC) SCC (squamous cell carcinoma), face PAST SURGICAL HISTORY Procedure Laterality Date PROSTATECTOMY;RADICAL RETROPUBIC 1996 FAMILY HISTORY Problem Relation Age of Onset Breast Cancer Mother Cancer Father Social History Tobacco Use Smoking status: Never Smokeless tobacco: Never Vaping Use Vaping status: Never Used Substance Use Topics Alcohol use: No Drug use: Never ALLERGIES: ALLERGIES Allergen Reactions Lisinopril Cough CURRENT OUTPATIENT MEDICATIONS: oxybutynin XL (DITROPAN XL) 5 mg 24 hr tablet Take 1 tablet by mouth once daily. meloxicam (MOBIC) 7.5 mg tablet Take 7.5 mg by mouth once daily. magnesium hydroxide (MAGNESIA ORAL) Take 250 mg by mouth once daily as needed (constipation). POTASSIUM-99 ORAL Take 1 tablet by mouth once daily. hydroCHLOROthiazide (HYDRODIURIL, ESIDRIX) 12.5 mg capsule Take 12.5 mg by mouth once daily. losartan (COZAAR) 25 mg tablet Take 25 mg by mouth once daily. metoprolol tartrate, short acting, (LOPRESSOR) 50 mg tablet Take 50 mg by mouth twice daily. atorvastatin 40 mg tablet Take 20 mg by mouth once daily. aspirin, enteric coated 81 mg EC tablet Take 81 mg by mouth once daily. GLUCOSAM/MSM/CHONDR/VIT C/HYAL ([id number] ORAL) Take 1 tablet by mouth two times a day. nitroglycerin sublingual 0.3 mg SL tablet Dissolve 0.3 mg under the tongue every 5 minutes as needed. Calcium Carbonate-Vitamin D3 600mg (1,000mg) -1,000 unit ORAL Tab Take 1 tablet by mouth once daily. ergocalciferol 50,000 unit capsule (VITAMIN D2, DRISDOL) Take 1 capsule by mouth one time a week. OTC PRODUCT Take 1,500 mg by mouth two times a day. Lipozene (Patient not taking: Reported on 01/23/2024) ubidecarenone (ULTRA COQ10 ORAL) Take by mouth once daily. (Patient not taking: Reported on 01/23/2024) apalutamide (ERLEADA) 60 mg tablet Take 3 tablets (180mg) by mouth once daily. (Patient not taking:Reported on 07/11/2022) Fish Oil-Shields-3 Fatty Acids 500-300 mg ORAL Cap Take one(1) tablet daily. (Patient not taking: Reported on 03/05/2024) REVIEW OF SYSTEMS: GENERAL: No fever, night sweats, weight loss or malaise. All other reviewed and negative other than HPI. PHYSICAL EXAMINATION: VITAL SIGNS: BP 129/81 Pulse 81 Temp (Src) 98.5 (Temporal) Wt 202 lb 8 oz (91.9kg) SpO2 96% GENERAL APPEARANCE: Well appearing, in no acute distress, alert and oriented x3, well-hydrated, well nourished. I spent a total of 20 minutes on the date of the service which included preparing to see the patient, [id number] patient care, completing clinical documentation, obtaining and/or reviewing separately obtained history, ordering medications, tests, or procedures, independently interpreting results (not separately reported), and communicating results to the patient/family/caregiver. Electronically Signed: Everett Aldrich MD March 05, 2024 [facility] Instructions* Patient Instructions* Pranav Tate PA-C - 01/23/2024 4:44 PM EST > 1 year Appt w/ B. SHARRI Tate, RODRICK LEUNG for annual follow-up and refills. documented in [facility]Mer[facility]-2024 NoteHNO ID: [id number] Author: PRANAV TATE PA-C Service: ? Author Type: Physician Production Control Coordinating Clerk Type: Progress Notes Filed: 01/23/2024 20:33 Note Text: [facility] CC: Prostate Cancer Follow-Up HPI: This is a 86 year old, male with a history of Adenocarcinoma of Prostate, who is here for follow up to discuss PSA and Lupron Therapy He will need to continue to follow Medical Oncology for Chemotherapy , and they can also do the Lupron Injection if patient wishes Or I can see him every 4 months with newest PSA to see if he need Lupron/Eligard Patients PSA Current - PSA (ng/mL) Date Value 12/12/2023 0.12 09/23/2020 0.92 Previous - PSA (ng/mL) Date Value 12/12/2023 0.12 09/19/2023 0.15 06/27/2023 0.17 04/03/2023 0.21 09/23/2020 0.92 07/05/2019 0.25 03/06/2019 33.08 03/04/2019 29.01 PSA's Component Latest Ref Rng AND Units 03/04/2019 03/06/2019 07/05/2019 09/23/2020 10/08/2021 01/07/2022 PSA <2.60 ng/mL 29.01 (H) 33.08 (H) 0.25 0.92 204.80 (H) 0.19 ALLERGY ALLERGIES Allergen Reactions Lisinopril Cough MEDICATION: ergocalciferol 50,000 unit capsule (VITAMIN D2, DRISDOL) Take 1 capsule by mouth one time a week. meloxicam (MOBIC) 7.5 mg tablet Take 7.5 mg by mouth once daily. magnesium hydroxide (MAGNESIA ORAL) Take 250 mg by mouth once daily as needed (constipation). POTASSIUM-99 ORAL Take 1 tablet by mouth once daily. hydroCHLOROthiazide (HYDRODIURIL, ESIDRIX) 12.5 mg capsule Take 12.5 mg by mouth once daily. losartan (COZAAR) 25 mg tablet Take 25 mg by mouth once daily. metoprolol tartrate, short acting, (LOPRESSOR) 50 mg tablet Take 50 mg by mouth twice daily. atorvastatin 40 mg tablet Take 20 mg by mouth every other day. aspirin, enteric coated 81 mg EC tablet Take 81 mg by mouth once daily. GLUCOSAM/MSM/CHONDR/VIT C/HYAL ([id number] ORAL) Take 1 tablet by mouth two times a day. nitroglycerin sublingual 0.3 mg SL tablet Dissolve 0.3 mg under the tongue every 5 minutes as needed. Calcium Carbonate-Vitamin D3 600mg (1,000mg) -1,000 unit ORAL Tab Take 1 tablet by mouth once daily. Fish Oil-Shields-3 Fatty Acids 500-300 mg ORAL Cap Take one(1) tablet daily. oxybutynin XL (DITROPAN XL) 5 mg 24 hr tablet Take 1 tablet by mouth once daily. OTC PRODUCT Take 1,500 mg by mouth two times a day. Lipozene (Patient not taking: Reported on 01/23/2024) ubidecarenone (ULTRA COQ10 ORAL) Take by mouth once daily. (Patient not taking: Reported on 01/23/2024) apalutamide (ERLEADA) 60 mg tablet Take 3 tablets (180mg) by mouth once daily. (Patient not taking: Reported on 07/11/2022) CONTINENCE: N/A POTENCY: N/A HISTORIES: FAMILY HISTORY Problem Relation Age of Onset Breast Cancer Mother Cancer Father PAST MEDICAL HISTORY Diagnosis Date Bone metastases 10/08/2021 HTN (hypertension) Malignant neoplasm 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) Prostate cancer (HCC) SCC (squamous cell carcinoma), face Social History Social History Narrative Not on file REVIEW OF SYSTEMS: General:No weight loss, malaise or fevers. Genitourinary: No history of dysuria, frequency or incontinence The remainder of the ROS was negative. PHYSICAL EXAMINATION: Blood pressure 112/60, pulse 89, temperature 36.3 ?C (97.3 ?F), resp. rate 20, height 170.2 cm (5' 7), weight 88.5 kg (195 lb), SpO2 96%. Body mass index is 30.54 kg/m?. General appearance: Well appearing, in no acute distress, and well-hydrated, well nourished Skin: Skin color, texture, turgor normal, no suspicious rashes or lesions Head: Normocephalic, no masses, lesions, tenderness or abnormalities Abdomen: Normal abdominal exam, Abdomen soft, non-tender. Bowel sounds normal. No masses, organomegaly IMPRESSION AND PLAN: > History of Prostate Cancer currently on ADT (Lupron 30 mg - 4 month) > PSA - stable - 0.19 > Trial of Ditopan 5 mg for OSAB > 4 month appointment with Felice, PSA, prior to visit, PSA ordered Pranav Tate, MTS, MT, PA-[facility]11-05-2024 History of Present illness Narrative* Pranav Tate PA-C - 01/23/2024 4:40 PM EST Images from the original note were not included. [facility] CC: Prostate Cancer Follow-Up HPI: This is a 86 year old, male with a history of Adenocarcinoma of Prostate, who is here for follow upto discuss PSA and Lupron Therapy He will need to continue to follow Medical Oncology for Chemotherapy , and they can also do the Lupron Injection if patient wishes Or I can see him every 4 months with newest PSA to see if he need Lupron/Eligard Patients PSA Current - PSA (ng/mL) Date Value 12/12/2023 0.12 09/23/2020 0.92 Previous - PSA (ng/mL) Date Value 12/12/2023 0.12 09/19/2023 0.15 06/27/2023 0.17 04/03/2023 0.21 09/23/2020 0.92 07/05/2019 0.25 03/06/2019 33.08 03/04/2019 29.01 PSA's Component Latest Ref Rng & Units 03/04/2019 03/06/2019 07/05/2019 09/23/2020 10/08/2021 01/07/2022 PSA <2.60 ng/mL 29.01 (H) 33.08 (H) 0.25 0.92 204.80 (H) 0.19 ALLERGY ALLERGIES Allergen Reactions Lisinopril Cough MEDICATION: ergocalciferol 50,000 unit capsule (VITAMIN D2, DRISDOL) Take 1 capsule by mouth one time a week. meloxicam (MOBIC) 7.5 mg tablet Take 7.5 mg by mouth once daily. magnesium hydroxide (MAGNESIA ORAL) Take 250 mg by mouth once daily as needed (constipation). POTASSIUM-99 ORAL Take 1 tablet by mouth once daily. hydroCHLOROthiazide (HYDRODIURIL, ESIDRIX) 12.5 mg capsule Take 12.5 mg by mouth once daily. losartan (COZAAR) 25 mg tablet Take 25 mg by mouth once daily. metoprolol tartrate, short acting, (LOPRESSOR) 50 mg tablet Take 50 mg by mouth twice daily. atorvastatin 40 mg tablet Take 20 mg by mouth every other day. aspirin, enteric coated 81 mg EC tablet Take 81 mg by mouth once daily. GLUCOSAM/MSM/CHONDR/VIT C/HYAL ([id number] ORAL) Take 1 tablet by mouth two times a day. nitroglycerin sublingual 0.3 mg SL tablet Dissolve 0.3 mg under the tongue every 5 minutes as needed. Calcium Carbonate-Vitamin D3 600mg (1,000mg) -1,000 unit ORAL Tab Take 1 tablet by mouth once daily. Fish Oil-Shields-3 Fatty Acids 500-300 mg ORAL Cap Take one(1) tablet daily. oxybutynin XL (DITROPAN XL) 5 mg 24 hr tablet Take 1 tablet by mouth once daily. OTC PRODUCT Take 1,500 mg by mouth two times a day. Lipozene (Patient not taking: Reported on 01/23/2024) ubidecarenone (ULTRA COQ10 ORAL) Take by mouth once daily. (Patient not taking: Reported on 01/23/2024) apalutamide (ERLEADA) 60 mg tablet Take 3 tablets (180mg) by mouth once daily. (Patient not taking:Reported on 07/11/2022) CONTINENCE: N/A POTENCY: N/A HISTORIES: FAMILY HISTORY Problem Relation Age of Onset Breast Cancer Mother Cancer Father PAST MEDICAL HISTORY Diagnosis Date Bone metastases 10/08/2021 HTN (hypertension) Malignant neoplasm 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) Prostate cancer (HCC) SCC (squamous cell carcinoma), face Social History Social History Narrative Not on file REVIEW OF SYSTEMS: General:No weight loss, malaise or fevers. Genitourinary: No history of dysuria, frequency or incontinence The remainder of the ROS was negative. PHYSICAL EXAMINATION: Blood pressure 112/60, pulse 89, temperature 36.3 C (97.3 F), resp. rate 20, height 170.2 cm (5' 7), weight 88.5 kg (195 lb), SpO2 96%. Body mass index is 30.54 kg/m . General appearance: Well appearing, in no acute distress, and well-hydrated, well nourished Skin: Skin color, texture, turgor normal, no suspicious rashes or lesions Head: Normocephalic, no masses, lesions, tenderness or abnormalities Abdomen: Normal abdominal exam, Abdomen soft, non-tender. Bowel sounds normal. No masses, organomegaly IMPRESSION & PLAN: > History of Prostate Cancer currently on ADT (Lupron 30 mg - 4 month) > PSA - stable - 0.19 > Trial of Ditopan 5 mg for OSAB > 4 month appointment with FRANNY Tate, prior to visit, PSA ordered SHARRI Palacios MT, PA-C * Pranav Tate PA-C - 01/23/2024 4:34 PM EST Images from the original note were not included. [facility] EST PATIENT CLINIC NOTE SERVICE DATE: January 23, 2024 NAME: Alex Carpenter CHIEF COMPLAINT: Hx of Adenocarcinoma of Prostate and OAB HISTORY OF PRESENT ILLNESS: Alex Carpenter is a 88 year old male an established patient following up for Hx of Adenocarcinoma of Prostate and OAB The patient reports running out of his Ditropan and new Rx sent to [facility] today Continued follow-up with Medical Oncology PSA 0.12 PVR - 0 ml UA - Negative LUTS: URGENCY: Yes LABS: PSA (ng/mL) Date Value 12/12/2023 0.12 09/19/2023 0.15 06/27/2023 0.17 09/23/2020 0.92 07/05/2019 0.25 03/06/2019 33.08 Testosterone (ng/dL) Date Value 10/08/2021 101 Hematocrit (%) Date Value 12/12/2023 39.4 09/19/2023 41.9 06/27/2023 42.2 07/12/2010 39.7 PSA (ng/mL) Date Value 12/12/2023 0.12 09/19/2023 0.15 06/27/2023 0.17 09/23/2020 0.92 07/05/2019 0.25 03/06/2019 33.08 Creatinine Date Value Ref Range Status 12/12/2023 1.00 0.73 - 1.22 mg/dL Final 09/19/2023 1.09 0.73 - 1.22 mg/dL Final 06/27/2023 1.18 0.73 - 1.22 mg/dL Final MEDICATIONS: ergocalciferol 50,000 unit capsule (VITAMIN D2, DRISDOL) Take 1 capsule by mouth one time a week. meloxicam (MOBIC) 7.5 mg tablet Take 7.5 mg by mouth once daily. magnesium hydroxide (MAGNESIA ORAL) Take 250 mg by mouth once daily as needed (constipation). POTASSIUM-99 ORAL Take 1 tablet by mouth once daily. hydroCHLOROthiazide (HYDRODIURIL, ESIDRIX) 12.5 mg capsule Take 12.5 mg by mouth once daily. losartan (COZAAR) 25 mg tablet Take 25 mg by mouth once daily. metoprolol tartrate, short acting, (LOPRESSOR) 50 mg tablet Take 50 mg by mouth twice daily. atorvastatin 40 mg tablet Take 20 mg by mouth every other day. aspirin, enteric coated 81 mg EC tablet Take 81 mg by mouth once daily. GLUCOSAM/MSM/CHONDR/VIT C/HYAL ([id number] ORAL) Take 1 tablet by mouth two times a day. nitroglycerin sublingual 0.3 mg SL tablet Dissolve 0.3 mg under the tongue every 5 minutes as needed. Calcium Carbonate-Vitamin D3 600mg (1,000mg) -1,000 unit ORAL Tab Take 1 tablet by mouth once daily. Fish Oil-Shields-3 Fatty Acids 500-300 mg ORAL Cap Take one(1) tablet daily. oxybutynin XL (DITROPAN XL) 5 mg 24 hr tablet Take 1 tablet by mouth once daily. OTC PRODUCT Take 1,500 mg by mouth two times a day. Lipozene (Patient not taking: Reported on 01/23/2024) ubidecarenone (ULTRA COQ10 ORAL) Take by mouth once daily. (Patient not taking: Reported on 01/23/2024) apalutamide (ERLEADA) 60 mg tablet Take 3 tablets (180mg) by mouth once daily. (Patient not taking:Reported on 07/11/2022) PAST MEDICAL HISTORY: PAST MEDICAL HISTORY Diagnosis Date Bone metastases 10/08/2021 HTN (hypertension) Malignant neoplasm 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) Prostate cancer (HCC) SCC (squamous cell carcinoma), face REVIEW OF SYSTEMS: GENERAL: No fever, chills, weight loss, or fatigue. PHYSICAL EXAMINATION: Blood pressure 112/60, pulse 89, temperature 36.3 C (97.3 F), resp. rate 20, height 170.2 cm (5' 7), weight 88.5 kg (195 lb), SpO2 96%. GENERAL: WNL nutrition, no deformities, healthy appearing PROBLEM LIST REVIEW: Yes LABS: Results for orders placed or performed in visit on 01/23/24 UA DIP, URINE (POC) Result Value Ref Range GLUCOSE UA (POCT) Negative Negative mg/dL BILIRUBIN UA (POCT) Negative Negative KETONE UA (POCT) Negative Negative mg/dL SPECIFIC GRAVITY UA (POCT) 1.025 1.005 - 1.030 HEMOGLOBIN/BLOOD UA (POCT) Negative Negative PH UA (POCT) 6.5 4.5 - 8.0 PROTEIN UA (POCT) Negative Negative mg/dL UROBILINOGEN UA (POCT) 0.2 Normal E.U./dL NITRITE UA (POCT) Negative Negative LEUKOCYTES UA (POCT) Negative Negative COLOR UA (POCT) Yellow CLARITY UA (POCT) Clear PROCEDURES: PVR: 0 ml ASSESSMENT/PLAN: 1. OAB (overactive bladder) - ICD9: 596.51, ICD10: N32.81 (primary diagnosis) 2. Malignant neoplasm of prostate (HCC) - ICD9: 185, ICD10: C61 > Continue PSA follow-up with Medical Oncology as planned Chronic stable, well controlled Medication - Renewed - Ditropan > 1 year Appt w/ B. SHARRI Tate MT, PA-C for annual follow-up and refills. SHARRI Palacios MT, PA-C * An Crespo RN - 01/23/2024 3:46 PM EST Verified name and date of . CC Post Void Residual HPI: Alex Carpenter is a 88 year old male. The patient is here now for an appointment with SHARRI Palacios MT, PA-COV. Procedure: Explained procedure to patient and verbalizes understanding. Performed a PVR. Patient urinated and instructed to empty bladder as much as possible just prior to having PVR done using bladder ultrasound scanner. Results of scan: 0 mL The patient tolerated the procedure well. Plan: Appointment with Brandon. An Crespo RN January 23, 2024 4:20 PM documented [facility]24 NoteHNO ID: [id number] Author: PRANAV TATE PA-C Service: ? Author Type: Physician Production Control Coordinating Clerk Type: Progress Notes Filed: 01/23/2024 20:33 Note Text: [facility] EST PATIENT CLINIC NOTE SERVICE DATE: January 23, 2024 NAME: Alex Carpenter CHIEF COMPLAINT: Hx of Adenocarcinoma of Prostate and OAB HISTORY OF PRESENT ILLNESS: Alex Carpenter is a 88 year old male an established patient following up for Hx of Adenocarcinoma of Prostate and OAB The patient reports running out of his Ditropan and new Rx sent to [facility] today Continued follow-up with Medical Oncology PSA 0.12 PVR - 0 ml UA - Negative LUTS: URGENCY: Yes LABS: PSA (ng/mL) Date Value 12/12/2023 0.12 09/19/2023 0.15 06/27/2023 0.17 09/23/2020 0.92 07/05/2019 0.25 03/06/2019 33.08 Testosterone (ng/dL) Date Value 10/08/2021 101 Hematocrit (%) Date Value 12/12/2023 39.4 09/19/2023 41.9 06/27/2023 42.2 07/12/2010 39.7 PSA (ng/mL) Date Value 12/12/2023 0.12 09/19/2023 0.15 06/27/2023 0.17 09/23/2020 0.92 07/05/2019 0.25 03/06/2019 33.08 Creatinine Date Value Ref Range Status 12/12/2023 1.00 0.73 - 1.22 mg/dL Final 09/19/2023 1.09 0.73 - 1.22 mg/dL Final 06/27/2023 1.18 0.73 - 1.22 mg/dL Final MEDICATIONS: ergocalciferol 50,000 unit capsule (VITAMIN D2, DRISDOL) Take 1 capsule by mouth one time a week. meloxicam (MOBIC) 7.5 mg tablet Take 7.5 mg by mouth once daily. magnesium hydroxide (MAGNESIA ORAL) Take 250 mg by mouth once daily as needed (constipation). POTASSIUM-99 ORAL Take 1 tablet by mouth once daily. hydroCHLOROthiazide (HYDRODIURIL, ESIDRIX) 12.5 mg capsule Take 12.5 mg by mouth once daily. losartan (COZAAR) 25 mg tablet Take 25 mg by mouth once daily. metoprolol tartrate, short acting, (LOPRESSOR) 50 mg tablet Take 50 mg by mouth twice daily. atorvastatin 40 mg tablet Take 20 mg by mouth every other day. aspirin, enteric coated 81 mg EC tablet Take 81 mg by mouth once daily. GLUCOSAM/MSM/CHONDR/VIT C/HYAL ([id number] ORAL) Take 1 tablet by mouth two times a day. nitroglycerin sublingual 0.3 mg SL tablet Dissolve 0.3 mg under the tongue every 5 minutes as needed. Calcium Carbonate-Vitamin D3 600mg (1,000mg) -1,000 unit ORAL Tab Take 1 tablet by mouth once daily. Fish Oil-Shields-3 Fatty Acids 500-300 mg ORAL Cap Take one(1) tablet daily. oxybutynin XL (DITROPAN XL) 5 mg 24 hr tablet Take 1 tablet by mouth once daily. OTC PRODUCT Take 1,500 mg by mouth two times a day. Lipozene (Patient not taking: Reported on 01/23/2024) ubidecarenone (ULTRA COQ10 ORAL) Take by mouth once daily. (Patient not taking: Reported on 01/23/2024) apalutamide (ERLEADA) 60 mg tablet Take 3 tablets (180mg) by mouth once daily. (Patient not taking: Reported on 07/11/2022) PAST MEDICAL HISTORY: PAST MEDICAL HISTORY Diagnosis Date Bone metastases 10/08/2021 HTN (hypertension) Malignant neoplasm 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) Prostate cancer (HCC) SCC (squamous cell carcinoma), face REVIEW OF SYSTEMS: GENERAL: No fever, chills, weight loss, or fatigue. PHYSICAL EXAMINATION: Blood pressure 112/60, pulse 89, temperature 36.3 ?C (97.3 ?F), resp. rate 20, height 170.2 cm (5' 7), weight 88.5 kg (195 lb), SpO2 96%. GENERAL: WNL nutrition, no deformities, healthy appearing PROBLEM LIST REVIEW: Yes LABS: Results for orders placed or performed in visit on 01/23/24 UA DIP, URINE (POC) Result Value Ref Range GLUCOSE UA (POCT) Negative Negative mg/dL BILIRUBIN UA (POCT) Negative Negative KETONE UA (POCT) Negative Negative mg/dL SPECIFIC GRAVITY UA (POCT) 1.025 1.005 - 1.030 HEMOGLOBIN/BLOOD UA (POCT) Negative Negative PH UA (POCT) 6.5 4.5 - 8.0 PROTEIN UA (POCT) Negative Negative mg/dL UROBILINOGEN UA (POCT) 0.2 Normal E.U./dL NITRITE UA (POCT) Negative Negative LEUKOCYTES UA (POCT) Negative Negative COLOR UA (POCT) Yellow CLARITY UA (POCT) Clear PROCEDURES: PVR: 0 ml ASSESSMENT/PLAN: 1. OAB (overactive bladder) - ICD9: 596.51, ICD10: N32.81 (primary diagnosis) 2. Malignant neoplasm of prostate (HCC) - ICD9: 185, ICD10: C61 > Continue PSA follow-up with Medical Oncology as planned Chronic stable, well controlled Medication - Renewed - Ditropan > 1 year Appt w/ SHARRI Mathur MT, RODRICK for annual follow-up and refills. SHARRI Palacios MT, PA-[facility]11-05-2024 NoteHNO ID: [id number] Author: AN CRESPO RN Service: ? Author Type: Registered Nurse Type: Progress Notes Filed: 01/23/2024 20:33 Note Text: Verified name and date of . CC Post Void Residual HPI: Alex Carpenter is a 88 year old male. The patient is here now for an appointment with SHARRI Palacios MT, MARIE-COV. Procedure: Explained procedure to patient and verbalizes understanding. Performed a PVR. Patient urinated and instructed to empty bladder as much as possible just prior to having PVR done using bladder ultrasound scanner. Results of scan: 0 mL The patient tolerated the procedure well. Plan: Appointment with Brandon. An Crespo RN January 23, 2024 4:20 [facility]09-24-2024 History of Present illness Narrative* Crissy Mai - 12/12/2023 9:30 AM EDT Alex Carpenter 1935 12/12/2023 HISTORY OF PRESENT ILLNESS: Alex Carpenter is a 87 year old male diagnosed with prostate cancer in 1998, status post radical prostatectomy for [place] score 6 = 3+3. He had been on intermittent ADT for biochemical failure, elevated PSA, in the past. Component Latest Ref Rng & Units 03/04/2019 03/06/2019 07/05/2019 09/23/2020 PSA 0.00 - 2.59 ng/mL 29.01 (H) 33.08 (H) 0.25 0.92 He had not had LHRH injection until recently when his PSA was over 210 by his primary care physician because of generalized aches and pain. Subsequent CT scan of the abdomen pelvis and bone scan recently showed findings suggestive of metastatic deposit along the anterior aspect of the right seventhrib in the pedicle of the left side of T12. There is left hemisacrum activity as well. Degenerativechanges noted in both knees and both shoulder joints. His bone density test within the last year showed evidence of osteopenia. Started back on androgen deprivation therapy with Eligard in September 2021, due to PSA 246. He had no hot flashes, increased fatigue or muscle weakness. He denied difficulty with urination. He had general arthritis pain in both knee and shoulder along with generalized aching. No change in weight or appetite. CT scans negative, bone scan suggested bone mets Previous therapy: 1) Apalutamide. Started September 2021. Stopped in June 2022 due to generalized weakness and malaise. Current treatment: 1) Lupron every 3 months. 2) Zometa every 6 months Interim history: Mr. Carpenter presents today for follow up of prostate ca. He reports doing well. Denies new aches or pains. No lumps or bumps. Denies HF, NS. No changes in bowel or bladder habits. Continues to have some urinary leakage throughout the day but this is stable. No bleeding or bruising. No SOB, CP, or palpitations. No ROMERO, dizziness, or changes in vision. Denies N/V/C/D. No rash or skin changes. Appetite and energy level are stable. CLINICAL IMPRESSION: Prostate cancer metastatic to bone. Doing well on GnRH agonist alone PSA pending today RECOMMENDATION/PLAN: 1. Continue lupron q 3 months, will add back apalutamide if PSA continues to climb. 2. Continue Zometa every 3 months 3. Follow PSA 4. OV with injection Written and verbal health teaching given to patient, patient verbalizes understanding and agrees with treatment plan. PAST MEDICAL HISTORY Diagnosis Date Bone metastases 10/08/2021 HTN (hypertension) Malignant neoplasm 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) Prostate cancer (HCC) SCC (squamous cell carcinoma), face PAST SURGICAL HISTORY Procedure Laterality Date PROSTATECTOMY;RADICAL RETROPUBIC 1996 FAMILY HISTORY Problem Relation Age of Onset Breast Cancer Mother Cancer Father Social History Tobacco Use Smoking status: Never Smokeless tobacco: Never Vaping Use Vaping status: Never Used Substance Use Topics Alcohol use: No Drug use: Never ALLERGIES: ALLERGIES Allergen Reactions Lisinopril Cough CURRENT OUTPATIENT MEDICATIONS: ergocalciferol 50,000 unit capsule (VITAMIN D2, DRISDOL) Take 1 capsule by mouth one time a week. OTC PRODUCT Take 1,500 mg by mouth two times a day. Lipozene meloxicam (MOBIC) 7.5 mg tablet Take 7.5 mg by mouth once daily. magnesium hydroxide (MAGNESIA ORAL) Take 250 mg by mouth once daily. POTASSIUM-99 ORAL Take 1 tablet by mouth once daily. hydroCHLOROthiazide (HYDRODIURIL, ESIDRIX) 12.5 mg capsule Take 12.5 mg by mouth once daily. losartan (COZAAR) 25 mg tablet Take 25 mg by mouth once daily. metoprolol tartrate, short acting, (LOPRESSOR) 50 mg tablet Take 50 mg by mouth twice daily. atorvastatin 40 mg tablet Take 20 mg by mouth every other day. aspirin, enteric coated 81 mg EC tablet Take 81 mg by mouth once daily. GLUCOSAM/MSM/CHONDR/VIT C/HYAL ([id number] ORAL) Take 1 tablet by mouth two times a day. nitroglycerin sublingual 0.3 mg SL tablet Dissolve 0.3 mg under the tongue every 5 minutes as needed. Calcium Carbonate-Vitamin D3 600mg (1,000mg) -1,000 unit ORAL Tab Take 1 tablet by mouth once daily. oxybutynin XL (DITROPAN XL) 5 mg 24 hr tablet Take 1 tablet by mouth once daily. ubidecarenone (ULTRA COQ10 ORAL) Take by mouth once daily. apalutamide (ERLEADA) 60 mg tablet Take 3 tablets (180mg) by mouth once daily. (Patient not taking:Reported on 07/11/2022) Fish Oil-Shields-3 Fatty Acids 500-300 mg ORAL Cap Take one(1) tablet daily. Lab Results Component Value Date PSA 0.15 09/19/2023 PSA 0.17 06/27/2023 PSA 0.21 04/03/2023 PSA 0.21 01/12/2023 PSA 0.50 11/09/2022 PSA 0.47 10/20/2022 PSA 0.04 07/18/2022 PSA 0.07 04/25/2022 PSA 0.19 01/07/2022 PSA 204.80 (H) 10/08/2021 REVIEW OF SYSTEMS: GENERAL: No fever, night sweats, weight loss or malaise. All other reviewed and negative other than HPI. All systems reviewed on 12/12/2023 with pertinent positives and negatives as outlined in the interval history. PHYSICAL EXAMINATION: VITAL SIGNS: BP 103/62 Pulse 79 Temp (Src) 98.5 (Temporal) Wt 198 lb 8 oz (90.0kg) SpO2 97% GENERAL APPEARANCE: Well appearing, in no acute distress, alert and oriented x3, well-hydrated, well nourished. HEENT: Normocephalic, no sclera icterus, external ears normal Neck: Supple, no JVD. Chest: Clear bilaterally, no wheezes, not labored. Heart: Normal S1 and S2, no abnormal sounds Abdomen: Soft, nontender, nondistended Extremities: No edema Neurological: Grossly intact Skin: Warm and dry with no rashes or ulcerations. Hematologic: no bruising or petechiae. Psychiatric: Alert and oriented x3. Emotional well-being assessment was performed. Pt denies depression, distress, and or problems with coping or adjustment. I have performed the physical exam today (12/12/2023) and have edited the note to correlate with current findings. RTC with bre Mai APRN.[employer] I spent a total of 30 minutes on the date of the service which included preparing to see the patient, [id number] patient care, completing clinical documentation, performing a medically appropriate examination, and counseling and educating the patient/family/caregiver. Portions of this note including HPI, ROS, impression/plan may have been copied forward as to provide important historical information essential in contributing to medical decision making. Documentation has been reviewed and edited as necessary to support clinical decision making for today's visit and to reflect my own independent evaluation of this patient. [facility] NoteHNO ID: [id number] Author: CRISSY MAI, ? Service: ? Author Type: Nurse Practitioner Type: Progress Notes Filed: 12/12/2023 12:06 Note Text: Alex Carpenter 1935 12/12/2023 HISTORY OF PRESENT ILLNESS: Alex Carpenter is a 87 year old male diagnosed with prostate cancer in 1998, status post radical prostatectomy for [place] score 6 = 3+3. He had been on intermittent ADT for biochemical failure, elevated PSA, in the past. Component Latest Ref Rng AND Units 03/04/2019 03/06/2019 07/05/2019 09/23/2020 PSA 0.00 - 2.59 ng/mL 29.01 (H) 33.08 (H) 0.25 0.92 He had not had LHRH injection until recently when his PSA was over 210 by his primary care physician because of generalized aches and pain. Subsequent CT scan of the abdomen pelvis and bone scan recently showed findings suggestive of metastatic deposit along the anterior aspect of the right seventh rib in the pedicle of the left side of T12. There is left hemisacrum activity as well. Degenerative changes noted in both knees and both shoulder joints. His bone density test within the last year showed evidence of osteopenia. Started back on androgen deprivation therapy with Eligard in September 2021, due to PSA 246. He had no hot flashes, increased fatigue or muscle weakness. He denied difficulty with urination. He had general arthritis pain in both knee and shoulder along with generalized aching. No change in weight or appetite. CT scans negative, bone scan suggested bone mets Previous therapy: 1) Apalutamide. Started September 2021. Stopped in June 2022 due to generalized weakness and malaise. Current treatment: 1) Lupron every 3 months. 2) Zometa every 6 months Interim history: Mr. Carpenter presents today for follow up of prostate ca. He reports doing well. Denies new aches or pains. No lumps or bumps. Denies HF, NS. No changes in bowel or bladder habits. Continues to have some urinary leakage throughout the day but this is stable. No bleeding or bruising. No SOB, CP, or palpitations. No ROMERO, dizziness, or changes in vision. Denies N/V/C/D. No rash or skin changes. Appetite and energy level are stable. CLINICAL IMPRESSION: Prostate cancer metastatic to bone. Doing well on GnRH agonist alone PSA pending today RECOMMENDATION/PLAN: 1. Continue lupron q 3 months, will add back apalutamide if PSA continues to climb. 2. Continue Zometa every 3 months 3. Follow PSA 4. OV with injection Written and verbal health teaching given to patient, patient verbalizes understanding and agrees with treatment plan. PAST MEDICAL HISTORY Diagnosis Date Bone metastases 10/08/2021 HTN (hypertension) Malignant neoplasm 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) Prostate cancer (HCC) SCC (squamous cell carcinoma), face PAST SURGICAL HISTORY Procedure Laterality Date PROSTATECTOMY;RADICAL RETROPUBIC 1996 FAMILY HISTORY Problem Relation Age of Onset Breast Cancer Mother Cancer Father Social History Tobacco Use Smoking status: Never Smokeless tobacco: Never Vaping Use Vaping status: Never Used Substance Use Topics Alcohol use: No Drug use: Never ALLERGIES: ALLERGIES Allergen Reactions Lisinopril Cough CURRENT OUTPATIENT MEDICATIONS: ergocalciferol 50,000 unit capsule (VITAMIN D2, DRISDOL) Take 1 capsule by mouth one time a week. OTC PRODUCT Take 1,500 mg by mouth two times a day. Lipozene meloxicam (MOBIC) 7.5 mg tablet Take 7.5 mg by mouth once daily. magnesium hydroxide (MAGNESIA ORAL) Take 250 mg by mouth once daily. POTASSIUM-99 ORAL Take 1 tablet by mouth once daily. hydroCHLOROthiazide (HYDRODIURIL, ESIDRIX) 12.5 mg capsule Take 12.5 mg by mouth once daily. losartan (COZAAR) 25 mg tablet Take 25 mg by mouth once daily. metoprolol tartrate, short acting, (LOPRESSOR) 50 mg tablet Take 50 mg by mouth twice daily. atorvastatin 40 mg tablet Take 20 mg by mouth every other day. aspirin, enteric coated 81 mg EC tablet Take 81 mg by mouth once daily. GLUCOSAM/MSM/CHONDR/VIT C/HYAL ([id number] ORAL) Take 1 tablet by mouth two times a day. nitroglycerin sublingual 0.3 mg SL tablet Dissolve 0.3 mg under the tongue every 5 minutes as needed. Calcium Carbonate-Vitamin D3 600mg (1,000mg) -1,000 unit ORAL Tab Take 1 tablet by mouth once daily. oxybutynin XL (DITROPAN XL) 5 mg 24 hr tablet Take 1 tablet by mouth once daily. ubidecarenone (ULTRA COQ10 ORAL) Take by mouth once daily. apalutamide (ERLEADA) 60 mg tablet Take 3 tablets (180mg) by mouth once daily. (Patient not taking: Reported on 07/11/2022) Fish Oil-Shields-3 Fatty Acids 500-300 mg ORAL Cap Take one(1) tablet daily. Lab Results Component Value Date PSA 0.15 09/19/2023 PSA 0.17 06/27/2023 PSA 0.21 04/03/2023 PSA 0.21 01/12/2023 PSA 0.50 11/09/2022 PSA 0.47 10/20/2022 PSA 0.04 07/18/2022 PSA 0.07 04/25/2022 PSA 0.19 01/07/2022 PSA 204.80 (H) 10/08/2021 REVIEW OF SYSTEMS: GENERAL: No fever, night sweats, weight loss or ma (more content not included)...[facility]07-02-2024 NoteHNO ID: [id number] Author: EVERETT ALDRICH MD Service: ? Author Type: Physician Type: Progress Notes Filed: 09/19/2023 14:46 Note Text: (Elements copied from my note dated June 27, 2023, have been reviewed and updated where appropriate, and all reflect current assessment and medical decision making from today's encounter, September 19, 2023) HISTORY OF PRESENT ILLNESS: Alex Carpenter is a 87 year old male diagnosed with prostate cancer in 1998, status post radical prostatectomy for [place] score 6 = 3+3. He had been on intermittent ADT for biochemical failure, elevated PSA, in the past. Component Latest Ref Rng AND Units 03/04/2019 03/06/2019 07/05/2019 09/23/2020 PSA 0.00 - 2.59 ng/mL 29.01 (H) 33.08 (H) 0.25 0.92 He had not had LHRH injection until recently when his PSA was over 210 by his primary care physician because of generalized aches and pain. Subsequent CT scan of the abdomen pelvis and bone scan recently showed findings suggestive of metastatic deposit along the anterior aspect of the right seventh rib in the pedicle of the left side of T12. There is left hemisacrum activity as well. Degenerative changes noted in both knees and both shoulder joints. His bone density test within the last year showed evidence of osteopenia. Started back on androgen deprivation therapy with Eligard in September 2021, due to PSA 246. He had no hot flashes, increased fatigue or muscle weakness. He denied difficulty with urination. He had general arthritis pain in both knee and shoulder along with generalized aching. No change in weight or appetite. CT scans negative, bone scan suggested bone mets Previous therapy: 1) Apalutamide. Started September 2021. Stopped in June 2022 due to generalized weakness and malaise. Current treatment: 1) Lupron every 3 months. 2) Zometa every 6 months Interim history: Doing well. CLINICAL IMPRESSION: Prostate cancer metastatic to bone. Doing well on GnRH agonist alone RECOMMENDATION/PLAN: 1. Continue lupron q 3 months, will add back apalutamide if PSA continues to climb. 2. Zometa every 3 months 3. Follow PSA Written and verbal health teaching given to patient, patient verbalizes understanding and agrees with treatment plan. PAST MEDICAL HISTORY Diagnosis Date Bone metastases 10/08/2021 HTN (hypertension) Malignant neoplasm 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) Prostate cancer (HCC) SCC (squamous cell carcinoma), face PAST SURGICAL HISTORY Procedure Laterality Date PROSTATECTOMY;RADICAL RETROPUBIC 1996 FAMILY HISTORY Problem Relation Age of Onset Breast Cancer Mother Cancer Father Social History Tobacco Use Smoking status: Never Smokeless tobacco: Never Vaping Use Vaping Use: Never used Substance Use Topics Alcohol use: No Drug use: Never ALLERGIES: ALLERGIES Allergen Reactions Lisinopril Cough CURRENT OUTPATIENT MEDICATIONS: ergocalciferol 50,000 unit capsule (VITAMIN D2, DRISDOL) Take 1 capsule by mouth one time a week. OTC PRODUCT Take 1,500 mg by mouth two times a day. Lipozene meloxicam (MOBIC) 7.5 mg tablet Take 7.5 mg by mouth once daily. magnesium hydroxide (MAGNESIA ORAL) Take 250 mg by mouth once daily. POTASSIUM-99 ORAL Take 1 tablet by mouth once daily. hydroCHLOROthiazide (HYDRODIURIL, ESIDRIX) 12.5 mg capsule Take 12.5 mg by mouth once daily. losartan (COZAAR) 25 mg tablet Take 25 mg by mouth once daily. metoprolol tartrate, short acting, (LOPRESSOR) 50 mg tablet Take 50 mg by mouth twice daily. atorvastatin 40 mg tablet Take 20 mg by mouth every other day. aspirin, enteric coated 81 mg EC tablet Take 81 mg by mouth once daily. GLUCOSAM/MSM/CHONDR/VIT C/HYAL ([id number] ORAL) Take 1 tablet by mouth two times a day. nitroglycerin sublingual 0.3 mg SL tablet Dissolve 0.3 mg under the tongue every 5 minutes as needed. Calcium Carbonate-Vitamin D3 600mg (1,000mg) -1,000 unit ORAL Tab Take 1 tablet by mouth once daily. oxybutynin XL (DITROPAN XL) 5 mg 24 hr tablet Take 1 tablet by mouth once daily. ubidecarenone (ULTRA COQ10 ORAL) Take by mouth once daily. apalutamide (ERLEADA) 60 mg tablet Take 3 tablets (180mg) by mouth once daily. (Patient not taking: Reported on 07/11/2022) Fish Oil-Shields-3 Fatty Acids 500-300 mg ORAL Cap Take one(1) tablet daily. REVIEW OF SYSTEMS: GENERAL: No fever, night sweats, weight loss or malaise. All other reviewed and negative other than HPI. PHYSICAL EXAMINATION: VITAL SIGNS: BP 105/70 Pulse 73 Temp (Src) 97.9 (Temporal) Wt 201 lb (91.2kg) SpO2 98% GENERAL APPEARANCE: Well appearing, in no acute distress, alert and oriented x3, well-hydrated, well nourished. I spent a total of 20 minutes on the date of the service which included preparing to see the patient, [id number] patient care, completing clinical documentation, obtaining and/or reviewing separately obtained history, ordering medications, tests, or procedures, independently int (more content not included)...[facility]07-02-2024 History of Present illness Narrative* Everett Aldrich MD - 09/19/2023 10:20 AM EDT (Elements copied from my note dated June 27, 2023, have been reviewed and updated where appropriate, and all reflect current assessment and medical decision making from today's encounter, September 19, 2023) HISTORY OF PRESENT ILLNESS: Alex Carpenter is a 87 year old male diagnosed with prostate cancer in 1998, status post radical prostatectomy for [place] score 6 = 3+3. He had been on intermittent ADT for biochemical failure, elevated PSA, in the past. Component Latest Ref Rng & Units 03/04/2019 03/06/2019 07/05/2019 09/23/2020 PSA 0.00 - 2.59 ng/mL 29.01 (H) 33.08 (H) 0.25 0.92 He had not had LHRH injection until recently when his PSA was over 210 by his primary care physician because of generalized aches and pain. Subsequent CT scan of the abdomen pelvis and bone scan recently showed findings suggestive of metastatic deposit along the anterior aspect of the right seventhrib in the pedicle of the left side of T12. There is left hemisacrum activity as well. Degenerativechanges noted in both knees and both shoulder joints. His bone density test within the last year showed evidence of osteopenia. Started back on androgen deprivation therapy with Eligard in September 2021, due to PSA 246. He had no hot flashes, increased fatigue or muscle weakness. He denied difficulty with urination. He had general arthritis pain in both knee and shoulder along with generalized aching. No change in weight or appetite. CT scans negative, bone scan suggested bone mets Previous therapy: 1) Apalutamide. Started September 2021. Stopped in June 2022 due to generalized weakness and malaise. Current treatment: 1) Lupron every 3 months. 2) Zometa every 6 months Interim history: Doing well. CLINICAL IMPRESSION: Prostate cancer metastatic to bone. Doing well on GnRH agonist alone RECOMMENDATION/PLAN: 1. Continue lupron q 3 months, will add back apalutamide if PSA continues to climb. 2. Zometa every 3 months 3. Follow PSA Written and verbal health teaching given to patient, patient verbalizes understanding and agrees with treatment plan. PAST MEDICAL HISTORY Diagnosis Date Bone metastases 10/08/2021 HTN (hypertension) Malignant neoplasm 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) Prostate cancer (HCC) SCC (squamous cell carcinoma), face PAST SURGICAL HISTORY Procedure Laterality Date PROSTATECTOMY;RADICAL RETROPUBIC 1996 FAMILY HISTORY Problem Relation Age of Onset Breast Cancer Mother Cancer Father Social History Tobacco Use Smoking status: Never Smokeless tobacco: Never Vaping Use Vaping Use: Never used Substance Use Topics Alcohol use: No Drug use: Never ALLERGIES: ALLERGIES Allergen Reactions Lisinopril Cough CURRENT OUTPATIENT MEDICATIONS: ergocalciferol 50,000 unit capsule (VITAMIN D2, DRISDOL) Take 1 capsule by mouth one time a week. OTC PRODUCT Take 1,500 mg by mouth two times a day. Lipozene meloxicam (MOBIC) 7.5 mg tablet Take 7.5 mg by mouth once daily. magnesium hydroxide (MAGNESIA ORAL) Take 250 mg by mouth once daily. POTASSIUM-99 ORAL Take 1 tablet by mouth once daily. hydroCHLOROthiazide (HYDRODIURIL, ESIDRIX) 12.5 mg capsule Take 12.5 mg by mouth once daily. losartan (COZAAR) 25 mg tablet Take 25 mg by mouth once daily. metoprolol tartrate, short acting, (LOPRESSOR) 50 mg tablet Take 50 mg by mouth twice daily. atorvastatin 40 mg tablet Take 20 mg by mouth every other day. aspirin, enteric coated 81 mg EC tablet Take 81 mg by mouth once daily. GLUCOSAM/MSM/CHONDR/VIT C/HYAL ([id number] ORAL) Take 1 tablet by mouth two times a day. nitroglycerin sublingual 0.3 mg SL tablet Dissolve 0.3 mg under the tongue every 5 minutes as needed. Calcium Carbonate-Vitamin D3 600mg (1,000mg) -1,000 unit ORAL Tab Take 1 tablet by mouth once daily. oxybutynin XL (DITROPAN XL) 5 mg 24 hr tablet Take 1 tablet by mouth once daily. ubidecarenone (ULTRA COQ10 ORAL) Take by mouth once daily. apalutamide (ERLEADA) 60 mg tablet Take 3 tablets (180mg) by mouth once daily. (Patient not taking:Reported on 07/11/2022) Fish Oil-Shields-3 Fatty Acids 500-300 mg ORAL Cap Take one(1) tablet daily. REVIEW OF SYSTEMS: GENERAL: No fever, night sweats, weight loss or malaise. All other reviewed and negative other than HPI. PHYSICAL EXAMINATION: VITAL SIGNS: BP 105/70 Pulse 73 Temp (Src) 97.9 (Temporal) Wt 201 lb (91.2kg) SpO2 98% GENERAL APPEARANCE: Well appearing, in no acute distress, alert and oriented x3, well-hydrated, well nourished. I spent a total of 20 minutes on the date of the service which included preparing to see the patient, [id number] patient care, completing clinical documentation, obtaining and/or reviewing separately obtained history, ordering medications, tests, or procedures, independently interpreting results (not separately reported), and communicating results to the patient/family/caregiver. Electronically Signed: Everett Aldrich MD September 19, 2023 documented [facility]04-12-[facility] Miscellaneous Notes* Telephone Encounter - Trina Murray LPN - 06/30/2023 3:31 PM EDT Returned call to pt. Offered to mail results. Gave him [employer] phone number as he is having issues logging in with his password. Trina Murray LPN * Telephone Encounter - Kelli Terry - 06/30/2023 3:13 PM EDT Patient called asking that we send his 06/26 lab results to his email. He states he has a hard time finding things in My Chart. documented in this [facility]Mer[facility]04-09-[facility]24 History of Present illness Narrative* Everett Aldrich MD - 06/27/2023 11:02 AM EDT (Elements copied from my note dated January 12, 2023, have been reviewed and updated where appropriate, and all reflect current assessment and medical decision making from today's encounter, June) HISTORY OF PRESENT ILLNESS: Alex Carpenter is a 87 year old male diagnosed with prostate cancer in 1998, status post radical prostatectomy for Parish score 6 = 3+3. He had been on intermittent ADT for biochemical failure, elevated PSA, in the past. Component Latest Ref Rng & Units 03/04/2019 03/06/2019 07/05/2019 09/23/2020 PSA 0.00 - 2.59 ng/mL 29.01 (H) 33.08 (H) 0.25 0.92 He had not had LHRH injection until recently when his PSA was over 210 by his primary care physician because of generalized aches and pain. Subsequent CT scan of the abdomen pelvis and bone scan recently showed findings suggestive of metastatic deposit along the anterior aspect of the right seventhrib in the pedicle of the left side of T12. There is left hemisacrum activity as well. Degenerativechanges noted in both knees and both shoulder joints. His bone density test within the last year showed evidence of osteopenia. Started back on androgen deprivation therapy with Eligard in September 2021, due to PSA 246. He had no hot flashes, increased fatigue or muscle weakness. He denied difficulty with urination. He had general arthritis pain in both knee and shoulder along with generalized aching. No change in weight or appetite. CT scans negative, bone scan suggested bone mets Previous therapy: 1) Apalutamide. Started September 2021. Stopped in June 2022 due to generalized weakness and malaise. Current treatment: 1) Lupron every 3 months. 2) Zometa every 6 months Interim history: Doing well. CLINICAL IMPRESSION: Prostate cancer metastatic to bone. Doing well on GnRH agonist alone RECOMMENDATION/PLAN: 1. Continue lupron q 3 months, will add back apalutamide if PSA continues to climb. 2. Zometa every 3 months 3. Follow PSA Written and verbal health teaching given to patient, patient verbalizes understanding and agrees with treatment plan. PAST MEDICAL HISTORY Diagnosis Date Bone metastases 10/08/2021 HTN (hypertension) Malignant neoplasm 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) Prostate cancer (HCC) SCC (squamous cell carcinoma), face PAST SURGICAL HISTORY Procedure Laterality Date PROSTATECTOMY;RADICAL RETROPUBIC 1996 FAMILY HISTORY Problem Relation Age of Onset Breast Cancer Mother Cancer Father Social History Tobacco Use Smoking status: Never Smokeless tobacco: Never Vaping Use Vaping Use: Never used Substance Use Topics Alcohol use: No Drug use: Never ALLERGIES: ALLERGIES Allergen Reactions Lisinopril Cough CURRENT OUTPATIENT MEDICATIONS: oxybutynin XL (DITROPAN XL) 5 mg 24 hr tablet Take 1 tablet by mouth once daily. ergocalciferol 50,000 unit capsule (VITAMIN D2, DRISDOL) Take 1 capsule by mouth one time a week. OTC PRODUCT Take 1,500 mg by mouth two times a day. Lipozene meloxicam (MOBIC) 7.5 mg tablet Take 7.5 mg by mouth once daily. magnesium hydroxide (MAGNESIA ORAL) Take 250 mg by mouth once daily. POTASSIUM-99 ORAL Take 1 tablet by mouth once daily. ubidecarenone (ULTRA COQ10 ORAL) Take by mouth once daily. hydroCHLOROthiazide (HYDRODIURIL, ESIDRIX) 12.5 mg capsule Take 12.5 mg by mouth once daily. losartan (COZAAR) 25 mg tablet Take 25 mg by mouth once daily. metoprolol tartrate, short acting, (LOPRESSOR) 50 mg tablet Take 50 mg by mouth twice daily. atorvastatin 40 mg tablet Take 20 mg by mouth every other day. aspirin, enteric coated 81 mg EC tablet Take 81 mg by mouth once daily. GLUCOSAM/MSM/CHONDR/VIT C/HYAL (VLHQILSGMBZ-OOLQGDFRFIX-VRZ ORAL) Take 1 tablet by mouth once daily. nitroglycerin sublingual 0.3 mg SL tablet Dissolve 0.3 mg under the tongue every 5 minutes as needed. Calcium Carbonate-Vitamin D3 600mg (1,000mg) -1,000 unit ORAL Tab Take 1 tablet by mouth once daily. Fish Oil-Shields-3 Fatty Acids 500-300 mg ORAL Cap Take one(1) tablet daily. apalutamide (ERLEADA) 60 mg tablet Take 3 tablets (180mg) by mouth once daily. (Patient not taking:Reported on 07/11/2022) REVIEW OF SYSTEMS: GENERAL: No fever, night sweats, weight loss or malaise. All other reviewed and negative other than HPI. PHYSICAL EXAMINATION: VITAL SIGNS: BP 112/74 Pulse 82 Temp (Src) 98.2 (Temporal) Wt 202 lb 8 oz (91.9kg) SpO2 99% GENERAL APPEARANCE: Well appearing, in no acute distress, alert and oriented x3, well-hydrated, well nourished. I spent a total of 20 minutes on the date of the service which included preparing to see the patient, [id number] patient care, completing clinical documentation, obtaining and/or reviewing separately obtained history, ordering medications, tests, or procedures, independently interpreting results (not separately reported), and communicating results to the patient/family/caregiver. Electronically Signed: Everett Aldrich MD June 27, 2023 documented in this encounterMercy Health [facility]03-21-2024 Miscellaneous Notes* Telephone Encounter - Stephanie Balderas - 06/08/2023 4:29 PM EDT Patient returned call and scheduled with Pranav Tate. Stephanie Balderas * Telephone Encounter - Mireya Espinosa - 06/07/2023 2:49 PM EDT Called patient and left a vm to return our phone call. [employer] message sent Mireya Espinosa * Telephone Encounter - Irene Florentino RN - 06/07/2023 2:43 PM EDT PSS: please call patient to schedule follow up with Urology in [place]. Last seen Pranav Tate 2021. Marni Florentino RN * Telephone Encounter - Irene Florentino RN - 06/07/2023 2:[address] Aldrich ok with providing more Oxybutynin. Patient need to make a follow up with Urology. Call to patient, no answer. Message left that a Rx has been sent and the need for f/u with Urology. Marni Florentino RN * Telephone Encounter - Irene Florentino RN - 06/07/2023 2:05 PM EDT Call to patient, states he has run out of his Rx for Oxybutynin. He was originally given this medication by MARIE Mcallister. Patient has not had a follow up with Urology since 2021, he missedhis f/u at 4mo. Patient states that he was not aware that he needed to follow up with Urology once he was established with us for treatment. He states the he has urinary leakage that he needed to wear diapers for and the Oxybutynin helpedand he would like to either have a refill on that or is asking if Dr. Aldrich would recommend something else. He is willing to make a follow up with Urology if needed. He is aware that I will discuss with Dr. Aldrich and call back with further instructions. Marni Florentino, RN * Telephone Encounter - Ingris Vega - 06/07/2023 1:20 PM EDT Patient is calling back stating his leakage is getting worse and asking if he could be placed back on Oxbutyin 5 mg or anything else provider would recommend. He was just suggesting this medication as it has worked for him in the past. * Telephone Encounter - Shannon Helton - 06/07/2023 9:36 AM EDT Patient called in asking to speak with one of 's nurses. He stated he wanted to speak to them about his oral medications for his prostate cancer. Please call patient on his mobile phone when able at [phone] Thank you, Shannon Davenport documented in this encounterMercy Health [facility]01-02-2024 Discharge summary Author Otto Shirley [facility] March 21, 2023 10:21am Note Date/Time March 21, 2023 10 :[address] [place] [address] Physical Therapy [facility] [address] [place] [address] / REHABILITATION SERVICES DISCHARGE SUMMARY MR#: [id number] Acct: [id number] Name: ALEX CARPENTER Rep #: [id number] : 1935 87 From: Otto Shirley DPT, DENISE, CSCS Referring Dr.: Dr. Otto Subramanian MD Status: REG RCR [facility] Discharge Summary D/C summary: It has been my pleasure to treat ALEX CARPENTER referred by Dr. Otto Subramanian MD, with the diagnosis of gait ataxia for a total of 9 visit(s). Discharge Date: 03/21/23 Please see the following information for a summary of their discharge status. Subjective Subjective: Doing the excercises in here and at home. Getting better with balance. No falls. Ready to try on own at home. No scheduled f/u with doctor. Pain Left Shoulder: Pain Intensity (Out of 10): 1 Overall Improvement % Improvement: 80 Objective Objective/Function: Doing well on FGA and will continue via HEP. Goals Goal 1:: I appropriate HEP to limit future problems and maximize funciton Goal Progress: Goal Met Goal 2:: Pt feel he can turn without deficts or unsteadiness. Goal Progress: Goal Met Plan Plan: d/c to HEP D/C Information d/c sentence: If there are questions or concerns regarding this patient's physical therapy, please feel free to call me at [phone]. Thank you for the referral of thispatient. Sincerely, Otto Shirley DPT, DENISE, CSCS Balance/Gait/Functional tests Balance/Special Test Scores Functional Gait Assessment Score: 27 % Disability: 10.0000 CATSIB Score (Max score 120 seconds): 110 Lower Extremity Functional Score: 45 Improvement % Improvement: 80 <Electronically signed by DENISE De Jesus DPT, CSCS> 03/21/23 1021 CC: Dr. Otto Subramanian MD ~ EBG Signed [facility] Work Phone: 1(189) 156-321712-15-2023 Miscellaneous Notes* Telephone Encounter - Ileana Leiva - 03/03/2023 11:51 AM EST Pt scheduled as directed * Telephone Encounter - Margie Corbin RN - 03/03/2023 10:[address] Aldrich, please schedule next zometa out a month so he can get both his eligard and zometa on same day. documented in this encounterMercy Health [facility]11-13-2023 Miscellaneous Notes* Telephone Encounter - Kelli Terry - 01/30/2023 11:39 AM EST Patient has been identified by name and date of : Yes Last office visit in this department: Visit date not found RX INSTRUCTIONS: Patient aware RX will be sent to pharmacy. No need to notify patient. Patient phones requesting refills as follows: Requested Prescriptions Pending Prescriptions Disp Refills ergocalciferol 50,000 unit capsule (VITAMIN D2, DRISDOL) 12 capsule 3 Sig: Take 1 capsule by mouth one time a week. Please review and advise. Kelli Davenport documented in this encounterMercy Health [facility]10-20-2023 Miscellaneous Notes* Telephone Encounter - Stephanie Tavarez RN - 01/06/2023 8:26 AM EDT Per Baltazar, pt will not receive Zometa today due to kidney function. Spoke to and updated her. Reminded her of appt on 01/12. Appt canceled. documented in this encounterMercy Health [facility]08-04-2023 Miscellaneous Notes* Telephone Encounter - Leisa Woods LPN - 10/21/2022 12:31 PM EDT Left message on patient's VM. MyChart message sent. Leisa Woods LPN * Telephone Encounter - Leisa Woods LPN - 10/20/2022 5:02 PM EDT Noted. Leisa Woods LPN * Telephone Encounter - Kelli Terry - 10/20/2022 3:51 PM EDT Patient requesting a call when PSA results are completed documented in this encounterMercy Health [facility]08-03-2023 Miscellaneous Notes* Addendum Note - Everett Aldrich MD - 10/20/2022 10:00 AM EDTAddended by: EVERETT ALDRICH on: 10/20/2022 10:00 AM Modules accepted: Orders documented in this encounterMercy Health [facility]08-03-2023 Nurse Note* Trina Murray LPN - 10/20/2022 9:49 AM EDT Pt here for injection of Eligard. Given sq in LLQ. Pt tolerated well. For all other information regarding today, see today's OV note with Dr Aldrich. Trina Murray LPN documented in this encounterMercy Health Kings [facility]08-03-2023 History of Present illness Narrative* Everett Aldrich MD - 10/20/2022 9:21 AM EDT HISTORY OF PRESENT ILLNESS: Alex Carpenter is a 87 year old male diagnosed with prostate cancer in 1998, status post radical prostatectomy for [place] score 6 = 3+3. He had been on intermittent ADT for biochemical failure, elevated PSA, in the past. Component Latest Ref Rng & Units 03/04/2019 03/06/2019 07/05/2019 09/23/2020 PSA 0.00 - 2.59 ng/mL 29.01 (H) 33.08 (H) 0.25 0.92 He had not had LHRH injection until recently when his PSA was over 210 by his primary care physician because of generalized aches and pain. Subsequent CT scan of the abdomen pelvis and bone scan recently showed findings suggestive of metastatic deposit along the anterior aspect of the right seventhrib in the pedicle of the left side of T12. There is left hemisacrum activity as well. Degenerativechanges noted in both knees and both shoulder joints. His bone density test within the last year showed evidence of osteopenia. He saw Amy Tate and started back on androgen deprivation therapy with Eligard in September 2021. Hehad no hot flashes, increased fatigue or muscle weakness. He denied difficulty with urination. He had general arthritis pain in both knee and shoulder along with generalized aching. No change in weight or appetite. Previous therapy: 1) Apalutamide. Started September 2021. Stopped in June 2022 due to generalized weakness and malaise. Current treatment: 1) Lupron every 3 months. 2) Zometa every 6 months Interim history: Went to ED 06/2022 for weakness and malaise. Apalutamide stopped. CLINICAL IMPRESSION: Prostate cancer metastatic to bone. Doing well on GnRH agonist alone RECOMMENDATION/PLAN: 1. Continue lupron q 3 months 2. Zometa every 3 months 3. Follow PSA Written and verbal health teaching given to patient, patient verbalizes understanding and agrees with treatment plan. PAST MEDICAL HISTORY Diagnosis Date Bone metastases 10/08/2021 HTN (hypertension) Malignant neoplasm 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) Prostate cancer (HCC) SCC (squamous cell carcinoma), face PAST SURGICAL HISTORY Procedure Laterality Date PROSTATECTOMY;RADICAL RETROPUBIC 1996 FAMILY HISTORY Problem Relation Age of Onset Breast Cancer Mother Cancer Father Social History Tobacco Use Smoking status: Never Smokeless tobacco: Never Vaping Use Vaping Use: Never used Substance Use Topics Alcohol use: No Drug use: Never ALLERGIES: ALLERGIES Allergen Reactions Lisinopril Cough CURRENT OUTPATIENT MEDICATIONS: meloxicam (MOBIC) 7.5 mg tablet^once daily.^Disp: ^Rfl: magnesium hydroxide (MAGNESIA ORAL)^Take 250 mg by mouth once daily.^Disp: ^Rfl: POTASSIUM-99 ORAL^Take by mouth once daily.^Disp: ^Rfl: ubidecarenone (ULTRA COQ10 ORAL)^Take by mouth once daily.^Disp: ^Rfl: ergocalciferol 50,000 unit capsule (VITAMIN D2, DRISDOL)^Take 1 capsule by mouth one time a week.^Disp: 12 capsule^Rfl: 3 hydroCHLOROthiazide (HYDRODIURIL, ESIDRIX) 12.5 mg capsule^Take 12.5 mg by mouth once daily.^Disp: ^Rfl: losartan (COZAAR) 25 mg tablet^Take 25 mg by mouth once daily.^Disp: ^Rfl: metoprolol tartrate, short acting, (LOPRESSOR) 50 mg tablet^Take 50 mg by mouth twice daily.^Disp: ^Rfl: atorvastatin 40 mg tablet^Take 20 mg by mouth once daily. Every other day^Disp: ^Rfl: aspirin, enteric coated 81 mg EC tablet^Take 81 mg by mouth once daily.^Disp: ^Rfl: GLUCOSAM/MSM/CHONDR/VIT C/HYAL (FZHAAANXIUY-RQTQWLMOCNH-KQD ORAL)^Take 1 tablet by mouth once daily.^Disp: ^Rfl: nitroglycerin sublingual 0.3 mg SL tablet^Dissolve 0.3 mg under the tongue every 5 minutes as needed.^Disp: ^Rfl: Calcium Carbonate-Vitamin D3 600mg (1,000mg) -1,000 unit ORAL Tab^Take 1 tablet by mouth once daily.^Disp: 30 tablet^Rfl: 6 Fish Oil-Shields-3 Fatty Acids 500-300 mg ORAL Cap^Take one(1) tablet daily.^Disp: ^Rfl: 0 apalutamide (ERLEADA) 60 mg tablet^Take 3 tablets (180mg) by mouth once daily.^Disp: 90 tablet^Rfl:2 (Patient not taking: Reported on 07/11/2022) REVIEW OF SYSTEMS: GENERAL: No fever, night sweats, weight loss or malaise. All other reviewed and negative other than HPI. PHYSICAL EXAMINATION: VITAL SIGNS: BP 128/82 Pulse 74 Temp (Src) 98.2 (Temporal) Resp 14 Ht 5' 7 (1.70m) Wt 209 lb 8 oz (95.0kg) SpO2 96% BMI 32.80 kg/(m^2). GENERAL APPEARANCE: Well appearing, in no acute distress, alert and oriented x3, well-hydrated, well nourished. I spent a total of 30 minutes on the date of the service which included preparing to see the patient, [id number] patient care, completing clinical documentation, obtaining and/or reviewing separately obtained history, ordering medications, tests, or procedures, independently interpreting results (not separately reported), and communicating results to the patient/family/caregiver. Electronically Signed: Everett Aldrich MD October 20, 2022 9:21 AM documented in this encounterMercy Health [facility] Hospital07-26-2023 History of Present illness Narrative* Rose Mary Sharp RN - 10/12/2022 3:41 PM EDT Pt states he has not taken the Apalutamide since his OV with Dr Fernandes due to balance issues. States he is taking an OTC potassium supplement (99mg x2 everyday). This RN gave pt a list of Potassium rich foods and reviewed. K+ today is 3.2. Denies any muscle cramping or other issues. States will talk with his PCP regarding potassium. Labs report given to patient. Rose Mary Sharp RN documented in this encounterMercy Health [facility]05-11-2023 Nurse Note* Gilda Back LPN - 07/28/2022 9:08 AM EDT Eligard injection administered, RLQ ,tolerated well, no immediate adverse reactions noted. See office notes Gilda Back LPN documented in this encounterMercy Health [facility]05-11-2023 History of Present illness Narrative* Bree Cornejo APRN.GIAN - 07/28/2022 8:41 AM EDT Chief Complaint Patient presents with: Follow Up HPI: Alex Carpenter is a 86 year old male who presents here today for follow up prostate cancer. Per Dr. Fernandes's previous note: H/o diagnosed with prostate cancer in 1998, status post radical prostatectomy for [place] score 6 =3+3. He had been on intermittent ADT for biochemical failure, elevated PSA, in the past. Component Latest Ref Rng & Units 03/04/2019 03/06/2019 07/05/2019 09/23/2020 PSA 0.00 - 2.59 ng/mL 29.01 (H) 33.08 (H) 0.25 0.92 He had not had LHRH injection until recently when his PSA was over 210 by his primary care physician because of generalized aches and pain. Subsequent CT scan of the abdomen pelvis and bone scan recently showed findings suggestive of metastatic deposit along the anterior aspect of the right seventhrib in the pedicle of the left side of T12. There is left hemisacrum activity as well. Degenerativechanges noted in both knees and both shoulder joints. His bone density test within the last year showed evidence of osteopenia. He saw Amy Tate and started back on androgen deprivation therapy with Eligard in September 2021. Hehad no hot flashes, increased fatigue or muscle weakness. He denied difficulty with urination. He had general arthritis pain in both knee and shoulder along with generalized aching. No change in weight or appetite. Previous therapy: 1) Apalutamide. Started September 2021. Stopped several week ago due to generalized weakness and malaise. Current treatment: 1) Lupron every 3 months. 2) Zometa every 6 months No new concerns today. Erleada remains on hold. Appetite:Good. Energy level:It's getting better. Denies fevers. Resp:denies cough or sob Cardiac:denies chest pain/palpitations GI:denies abd pain, n/v, moving bowels regularly :denies dysuria/hematuria Extrem:+joint pains Endo:denies hot flashes Neuro:denies symptoms of neuropathy Skin:denies rashes Heme:denies bleeding The ROS is otherwise negative. Past medical history, appointments, medications, allergies reviewed. No changes. EXAM: BP 119/66 Pulse 71 Temp 36.3 C (97.3 F) Wt 96.2 kg (212 lb) SpO2 97% BMI 33.20 kg/m APPEARANCE Well appearing, alert, in no acute distress, well-hydrated, well nourished. HEART RRR with normal S1 and S2, no murmurs LUNG clear to auscultation LYMPH NODES No cervical lymphadenopathy, No supraclavicular lymphadenopathy, and No axillary lymphadenopathy. ABDOMEN bowel sounds normoactive, soft, non-tender EXTREMITIES No edema NEURO Awake, alert and oriented x 3, Normal gait, and No involuntary motions. SKIN Skin color, texture, turgor normal, no suspicious rashes or lesions ASSESSMENT/PLAN: 1. Malignant neoplasm of prostate (HCC) - ICD9: 185, ICD10: C61 (primary diagnosis) 2. Malignant neoplasm 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) - ICD9: 198.5, ICD10: C79.[address] Fernandes's previous note 07/11/22: Assessment: -86-year-old gentleman with hormone sensitive metastatic prostate cancer. -Asymptomatic bone metastases. --Was on ADT with control of disease. -Was on apalutamide for 8-9 months. Stopped due to progressive weakness and malaise -Discussed more time for recovery. Plan: -Continue Lupron 22.5 every 3 months. -Continue Zometa 4 mg IV every 6 months to prevent osteoporotic fracture with ADT. -Recheck labs when here for Zometa in July. -OV 07/28. Further plan with possible trial Xtandi lower dose (no h/o seizure). - No new concerning findings on exam. - Apalutamide on hold for 11-12 months. Stopped due to progressive weakness and malaise - Discussed starting Xtandi at a lower dose-pt. would like to hold off for now. - Continue lupron every 3 months. - Continue zometa every 6 months. - Follow up with Dr. Fernandes as scheduled. - Pt. aware to call office with any questions/concerns. The patient indicates understanding of these issues and agrees with the plan. All documentation from previous visit of 07/11/22-Dr. Fernandes was copied and pasted, documentation hasbeen reviewed and edited as necessary for today's visit. Bree Cornejo APRN.GIAN documented in this encounterMercy Health [facility]05-01-2023 Miscellaneous Notes* Telephone Encounter - Denilson Fernandes DO - 07/18/2022 9:59 AM EDT Orders filed. Denilson Fernandes DO * Telephone Encounter - Gilda Back LPN - 07/18/2022 9:55 AM EDT Pt. Here for labs, wrong orders are in, They are for [facility], please sign pended orders. Gilda Back LPN documented in this encounterMercy Health Kings [facility] Hospital04-24-2023 History of Present illness Narrative* Denilson Fernandes DO - 07/11/2022 2:40 PM EDT DIAGNOSIS: Metastatic prostate cancer. Per Dr. Becerra's most recent note. HPI: 86-year-old gentleman diagnosed with prostate cancer in 1998, status post radical prostatectomy for [place] score 6 = 3+3. He had been on intermittent ADT for biochemical failure, elevated PSA, in the past. Component Latest Ref Rng & Units 03/04/2019 03/06/2019 07/05/2019 09/23/2020 PSA 0.00 - 2.59 ng/mL 29.01 (H) 33.08 (H) 0.25 0.92 He had not had LHRH injection until recently when his PSA was over 210 by his primary care physician because of generalized aches and pain. Subsequent CT scan of the abdomen pelvis and bone scan recently showed findings suggestive of metastatic deposit along the anterior aspect of the right seventhrib in the pedicle of the left side of T12. There is left hemisacrum activity as well. Degenerativechanges noted in both knees and both shoulder joints. His bone density test within the last year showed evidence of osteopenia. He saw Amy Tate and started back on androgen deprivation therapy with Eligard in September 2021. Hehad no hot flashes, increased fatigue or muscle weakness. He denied difficulty with urination. He had general arthritis pain in both knee and shoulder along with generalized aching. No change in weight or appetite. Previous therapy: 1) Apalutamide. Started September 2021. Stopped several week ago due to generalized weakness and malaise. Current treatment: 1) Lupron every 3 months. 2) Zometa every 6 months Interim history: Went to ED 06/2022 for weakness and malaise. Apalutamide stopped. Gradually getting better. He couldn't stand from chair on his own but now can. Still fatigued. Has chronic b/l shoulder pain and intermittent LBP that he's had for years. Tens unit relives it. PMH, medications and allergies personally reviewed by me today. Any changes documented in appropriate section. ROS: Constitutional: Normal appetite. Neuro: +Imbalance HEENT: No recent change in voice, vision or hearing. Resp: Denies cough, wheeze and hemoptysis. Denies shortness of breath at rest. CVS: Denies exertional chest pain, PND, orthopnea and LE edema. GI: Denies reflux, n/v, change in bowel habits and abdominal pain. : Denies dysuria or gross hematuria Endo: Denies hot flashes. Denies polyuria and polydipsia. Denies heat and cold intolerance. Musculoskeletal: See HPI. Derm: Denies rash. Denies jaundice and diffuse pruritis. Heme: Denies unusual bleeding and unexplained bruising. Psych: Normal mood. PHYSICAL EXAM: Vitals: Blood pressure 110/74, pulse 84, temperature 36.7 C (98.1 F), weight 96.2 kg (212 lb), [id number] %. Well-appearing and in no acute distress. EYES: Sclerae are anicteric bilaterally. LYMPHATIC: There is no palpable cervical or supraclavicular adenopathy. RESPIRATORY: Inspiratory breath sounds are of normal intensity in all mancini. CARDIOVASCULAR: Rhythm is regular. ABDOMEN: The abdomen is nondistended. Extremities: No swelling or edema. SKIN: No jaundice. NEUROLOGIC: ear muff assembler II-XII are grossly intact. No focal motor weakness per se. LABORATORY DATA: Component Latest Ref Rng & Units 04/25/2022 05/23/2022 06/20/2022 WBC 3.70 - 11.00 k/uL 8.95 RBC 4.20 - 6.00 m/uL 4.39 Hemoglobin 13.0 - 17.0 g/dL 13.9 Hematocrit 39.0 - 51.0 % 41.1 MCV 80.0 - 100.0 fL 93.6 MCH 26.0 - 34.0 pg 31.7 MCHC 30.5 - 36.0 g/dL 33.8 RDW-CV 11.5 - 15.0 % 12.7 Platelet Count 150 - 400 k/uL 272 MPV 9.0 - 12.7 fL 10.3 Neut% % 78.1 Abs Neut (ANC) 1.45 - 7.50 k/uL 6.99 Lymph% % 9.7 Abs Lymph 1.00 - 4.00 k/uL 0.87 (L) Inyo% % 8.5 Abs Inyo <0.87 k/uL 0.76 Eosin% % 2.7 Abs Eosin <0.46 k/uL 0.24 Baso% % 0.4 Abs Baso <0.11 k/uL 0.04 Immature Gran % % 0.6 IMMATURE GRANS (ABS) <0.10 k/uL 0.05 NRBC /100 WBC 0.0 Absolute nRBC <0.01 k/uL <0.01 DTYPE Auto Protein, Total 6.3 - 8.0 g/dL 6.4 Albumin 3.9 - 4.9 g/dL 4.1 Calcium 8.5 - 10.2 mg/dL 8.8 9.4 9.4 Bilirubin, Total 0.2 - 1.3 mg/dL 0.3 Alkaline Phosphatase 38 - 113 U/L 106 AST 14 - 40 U/L 19 ALT 10 - 54 U/L 10 Glucose 74 - 99 mg/dL 131 (H) 109 (H) 151 (H) BUN 9 - 24 mg/dL 18 20 23 Creatinine 0.73 - 1.22 mg/dL 1.17 1.10 1.06 Sodium 136 - 144 mmol/L 144 143 143 Potassium 3.7 - 5.1 mmol/L 3.7 4.1 4.0 Chloride 97 - 105 mmol/L 106 (H) 106 (H) 108 (H) CO2 22 - 30 mmol/L 29 27 25 Anion Gap 9 - 18 mmol/L 9 10 10 eGFR >=60 mL/min/1.73m 61 66 69 PSA <2.60 ng/mL 0.07 ASSESSMENT/PLAN: (C61) Malignant neoplasm of prostate (HCC) (primary encounter diagnosis) (C79.51) Malignant neoplasm 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) Assessment: -86-year-old gentleman with hormone sensitive metastatic prostate cancer. -Asymptomatic bone metastases. --Was on ADT with control of disease. -Was on apalutamide for 8-9 months. Stopped due to progressive weakness and malaise -Discussed more time for recovery. Plan: -Continue Lupron 22.5 every 3 months. -Continue Zometa 4 mg IV every 6 months to prevent osteoporotic fracture with ADT. -Recheck labs when here for Zometa in July. -OV 07/28. Further plan with possible trial Xtandi lower dose (no h/o seizure). Portions of this documentation were copied and pasted from previous office visit notes in order to provide a cohesive continuity of the history. The note has been reviewed and edited and updated as necessary. I spent a total of 25 minutes on the date of the service which included preparing to see the patient, [id number] patient care, completing clinical documentation, obtaining and/or reviewing separately obtained history, performing a medically appropriate examination, counseling and educating the pat ient/family/caregiver, ordering medications, tests, or procedures, and communicating results to thepatient/family/caregiver. Denilson Fernandes DO Cc: Dr. Otto Subramanian documented in this encounterMer[facility]04-12-2023 Miscellaneous Notes* Telephone Encounter - Hanna Levin MD - 06/29/2022 12:59 PM EDT Good * Telephone Encounter - Irene Florentino RN - 06/29/2022 12:31 PM EDT Call to patient for update from last week. Patient states that he has been slowly getting better but today he noticed a big difference. Stateshe is walking better, walking without shuffling, balance is better, able to get up from chair likenormal States not as tired today either. Patient denies any other issues or needs. Aware that I will update Dr. Levin. Reviewed upcoming appointments and will discuss treatment options at that time. Marni Florentino RN documented in this encounterMercy Health [facility]04-10-2023 Miscellaneous Notes* Telephone Encounter - Hanna Levin MD - 06/27/2022 9:39 AM EDT Sounds good * Telephone Encounter - Irene Florentino RN - 06/24/2022 10:21 AM EDT Call to patient, denies any worsening symptoms. Calling to give update before the weekend. States that I'm a little bit better and not any worse, I am able to get up better meaning he is able tostand up on his legs better and not as weak as earlier this week. States he is walking some withoutusing the wheelchair for balance, as a walker. He is continuing to hold Erleada. Denies other issues or concerns. Instructed to seek medical attention over the weekend with worsening symptoms of weakness,unsteadiness, unable to walk, etc. or for any other concerning symptoms. Patient agreed. He will call on Monday with another update. Marni Florentino RN Disposition: per Buffing Wheel Inspector, patient directed to: Manage at home. Provided instructions and will call back. Irene Florentino RN * Telephone Encounter - Kelli Davenport - 06/24/2022 10:02 AM EDT Patient called requesting to speak to Marni regarding medication and dizziness. documented in this encounterMercy Health [facility]04-04-2023 Miscellaneous Notes* Telephone Encounter - Irene Florentino RN - 06/21/2022 4:50 PM EDT Call to patient and aware that MRI is recommended by Dr. Levin. He states understanding and agreeable. He is aware that someone will call to set up a date/time. He also states that since phone call earlier that he drank a lot of water and OJ and then took Meclizine and he states he feels a lot better. He arm and legs are much better now. States he had an issue with Vertigo 20 years ago but none since. This nurse encouraged patient to keep diary of symptomsand if take more meclizine. Also, encouraged to continue to push fluids. Patient agreed and denies further needs or concerns. Marni Florentino RN PSS: please schedule MRI stat. * Telephone Encounter - Irene Florentino RN - 06/21/2022 3:12 PM EDT Please sign review/sign order for MRI Brain. Please designate if needs to be STAT. Do you want patient to hold Erleada? or ok to continue? Marni Florentino RN * Telephone Encounter - Hanna Levin MD - 06/21/2022 3:06 PM EDT Probably from erleada;but schedule MRI brain with and without contrast * Telephone Encounter - Irene Florentino RN - 06/21/2022 1:52 PM EDT Images from the original note were not included. [facility] Care Coordination FOLLOW-UP NOTE Patient identified by name and date of . YES Spoke to patient Summary: (Reason for follow-up) Patient calling into office with concerns Concerns: (New Barriers to care) Call from patient, states that about 1/2 hour ago, he noted that he was off balance. States he was in his barn and went to turn around and lost his balance but didn't fall. States his arms feel offtoo, hard to describe Denies weakness, numbness/tingling, pain, N/V, dizziness, spinning, visual changes, shortness of breath, chest pain. States kind of like veritgo but no nausea Denies confusion. Patient is coherent and speech is clear on phone. Patient denies any new medication started. Appetite is good and just finished lunch. Has been drinking adequate fluids (coffee and water), no different than usual. Today is not different as far was work/routine. I have been at my desk all morning He is out at barn now b/c he is expecting a truck with beans At last visit with Bree Cornejo CNP on 04/26/22,note states: And Erleada dose reduced. Erleada 60mg, 3 tabs daily (180mg) Patient asked if same type of dizziness/unsteadiness and states it's different, I didn't feel like I was going to fall and today I do And, he denies having any issues with his arms. States if I close my eyes, I don't know where my hands are New Referrals Needed: No Is the patient having any pain? No Medication questions or concerns? no Line, drain, or catheter education given? No Care Coordination Plan: Patient aware that I will discuss with and call back with further instructions. Irene Florentino RN June 21, 2022 documented in this encounterMercy [facility]02-16-2023 History of Present illness Narrative* Trina Murray LPN - 05/05/2022 12:03 PM EST Pt here for injection of Eligar. Given sq in RLQ. Pt tolerated well. Trina Murray LPN documented in this encounterMercy [facility]02-08-2023 Miscellaneous Notes* Telephone Encounter - Stephanie Balderas - 04/27/2022 9:18 AM EST Spoke with patient and scheduled. Stephanie Balderas * Telephone Encounter - Bree Cornejo APRN.GIAN - 04/27/2022 8:08 AM EST Discussed case with Dr. Fernandes. Decrease dose of erleada to 3 tabs/day d/t pt. feeling unsteady. Rx sent per Dr. Masci. Zometa monthly. Lupron every 3 months. OV in 3 months with PSA/CBC/CMP. Spoke with pt. he agrees with above. Thank you. Bree Cornejo APRN.COLD MILL INSPECTOR * Telephone Encounter - Adwoa Washburn - 04/26/2022 4:27 PM EST Patient is requesting to speak with clinical staff about PSA results and ordered procedures. Pleasecontact the patient at any time. documented in this encounterMercy Health [facility]02-06-2023 Discharge summary Author Otto Shirley [facility] April 25, 2022 8:15am Note Date/Time April 25, 2022 8 :15am [facility] Physical Therapy [facility] [address] [place] [address]. [address] [place] [address] / REHABILITATION SERVICES DISCHARGE SUMMARY MR#: [id number] Acct: [id number] Name: ALEX CARPENTER Rep #: [id number] : 1935 86 From: tOto Shirley DPT, OCS, CSCS Referring Dr.: Dr. Otto Subramanian MD Status: REG R Insurance: [facility] SELF PAY INSURANCE ALEX CARPENTER was seen in my office for initial evaluation on 02/08/22. The following Plan of Care was established for this patient: Initial Frequency: 1-2x /Week Initial Duration: 4-6 Weeks Patient/Client Instruction: Educate patient on: Condition, Plan of Care For the Purpose of:: To improve muscle performance and motor function, To improve gait and locomotor functions, To improve safety with gait Therapeutic Exercise to Include: Balance training, Gait and locomotor training, Neuromotor development For the Purpose of:: To improve muscle performance and motor function, To improve ability of physical actions for home/community/work/leisure, To improve balance, To improve safety with gait This patient was last seen in our office 03/03/22. Pertinent comments regardingtheir Physical therapy will appear below: Pt seen 7 visits of POC and felt 30% better. He was to f/u one month later after doing HEP but cancelled that visit. At this point, it has been over 6 weeks and I will discontinue due to nonattendance. At this point I will be discontinuing this patient from physical therapy. I would be happy to see this patient again in the future if found appropriate by the physician. Thank you! Otto Shirley, DPT, OCS, CSCS Balance/Gait/Functional tests - Balance/Special Test Scores Functional Gait Assessment Score: 26 % Disability: 13.3400 CATSIB Score (Max score 120 seconds): 115 Dizziness Score: 24 Lower Extremity Functional Score: 56 <Electronically signed by Otto Shirley DPT, OCS, CSCS> 04/25/22 0815 CC: Dr. Otto Subramanian MD ~ EBG Signed [facility] Work Phone: 1(153) 417-852401-18-2023 History of Present illness Narrative* Margie Bhakta - 04/06/2022 11:32 AM EST [facility] Specialty Refill Assessment Medication(s): Jacquelyn Patient's current medication list and adherence status to current therapy were reviewed by Specialty Pharmacy clinical pharmacist to identify any new drug interactions or non-compliance to therapy. Therapy continues to be appropriate for disease, patient response, and medical condition. Verification of therapeutic benefit and effectiveness with current therapy was completed. Adverse events, barriers in adherence, and side effects were assessed and addressed if applicable. Will proceed with refill with no changes in therapy - patient progressing towards achieving therapeutic goals based on medication- specific laboratory parameters, disease state markers and outcomes. Processing Archivist Assessment Patient confirmed: Yes Med/dose confirmed: Yes Supplies needed: No supplies needed Missed doses: No Estimated days supply on hand: 7 Copay amount: 0 Payment confirmed: Yes Delivery method: FedEx Signature required: No Delivery address: [address] [place] [address], [place], [address] Delivery date: 04/08/22 Questions or concerns for the pharmacist?: No [facility] Visit Assessment - Hematology/Oncology: Assessment to use: Refill Vaccination Assessment: Date of influenza vaccination reminder: 12/08/2021 Date of most recent vaccination assessment: 12/08/2021 Treatment Plan Information: Treatment Plan Information: Dx: mCSPC Tx Hx: intermittent ADT in past Tx Plan: erleada and eligard Medication: erleada Dose: 240mg Sig: Take 4 tablets (240 mg) by mouth once daily. Admin/Storage: Same time each day, with or without food A/E and Warnings: Cardiac events, dermatologic toxicities, fractures, seizures, thyroid dysfunction,HTN, edema, hot flash, hyper cholesterolemia, hyperglycemia, hyperkalemia , hypertriglyceridemia increased thyroid stimulating hormone level , weight loss, decreased appetite, diarrhea, nausea, fatigue, arthralgia, ane forest, leukopenia, lymphocytopenia D/I: Category C with atorvastatin-CY Inducers (Strong) may decrease the serum concentration of Atorvastatin, Monitor for decreased atorvastatin effects Lab/Monitoring: TSH-as clinically necessary Monitor for signs/symptoms of cardiovascular events, cerebrovascular events, seizure, and dermatologic toxicity. Assess for fall and fracture risk. Margie Bhakta documented in this encounterMercy Health [facility]12-20-2022 History of Present illness Narrative* Yoana Casillas - 03/08/2022 12:51 PM EST [facility] Refill Assessment Medication(s): Erleada Patient's current medication list and adherence status to current therapy were reviewed by Specialty Pharmacy clinical pharmacist to identify any new drug interactions or non-compliance to therapy. Therapy continues to be appropriate for disease, patient response, and medical condition. Verification of therapeutic benefit and effectiveness with current therapy was completed. Adverse events, barriers in adherence, and side effects were assessed and addressed if applicable. Will proceed with refill with no changes in therapy - patient progressing towards achieving therapeutic goals based on medication- specific laboratory parameters, disease state markers and outcomes. Processing Archivist Assessment Patient confirmed: Yes Med/dose confirmed: Yes Supplies needed: No supplies needed Missed doses: No Estimated days supply on hand: 8 Copay amount: 0 Payment confirmed: Yes Delivery method: FedEx Signature required: No Delivery address: [address] [place] [address] *leave between screen door* [place] [address] Delivery date: 03/16/22 Questions or concerns for the pharmacist?: No [facility] Visit Assessment - Hematology/Oncology: Assessment to use: Refill Vaccination Assessment: Date of influenza vaccination reminder: 12/08/2021 Date of most recent vaccination assessment: 12/08/2021 Treatment Plan Information: Treatment Plan Information: Dx: mCSPC Tx Hx: intermittent ADT in past Tx Plan: erleada and eligard Medication: erleada Dose: 240mg Sig: Take 4 tablets (240 mg) by mouth once daily. Admin/Storage: Same time each day, with or without food A/E and Warnings: Cardiac events, dermatologic toxicities, fractures, seizures, thyroid dysfunction,HTN, edema, hot flash, hyper cholesterolemia, hyperglycemia, hyperkalemia , hypertriglyceridemia increased thyroid stimulating hormone level , weight loss, decreased appetite, diarrhea, nausea, fatigue, arthralgia, ane forest, leukopenia, lymphocytopenia D/I: Category C with atorvastatin-CY Inducers (Strong) may decrease the serum concentration of Atorvastatin, Monitor for decreased atorvastatin effects Lab/Monitoring: TSH-as clinically necessary Monitor for signs/symptoms of cardiovascular events, cerebrovascular events, seizure, and dermatologic toxicity. Assess for fall and fracture risk. Yoana Casillas documented in this encounterMercy Health [facility]12-20-2022 Miscellaneous Notes* Telephone Encounter - Aparna Becerra MD - 03/08/2022 7:49 AM EST Patient's request for medication is as follows Requested Prescriptions Signed Prescriptions Disp Refills apalutamide (ERLEADA) 60 mg tab 120 tablet 2 Sig: Take 4 tablets (240 mg) by mouth once daily. Authorizing Provider: APARNA BECERRA Order entered - please phone pharmacy and notify patient. Aparna Becerra MD documented in this encounterMercy Health [facility]11-18-2022 History of Present illness Narrative* Anabelle Choi (Director Digital Strategy) - 02/04/2022 11:19 AM EST [facility] Refill Assessment Medication(s): Erleada No new clinical information to review since last [facility] refill encounter. Oxybutynin added to medication list - no drug interaction Next OV scheduled 04/11. Patient's current medication list and adherence status to current therapy were reviewed by Specialty Pharmacy clinical pharmacist to identify any new drug interactions or non-compliance to therapy. Therapy continues to be appropriate for disease, patient response, and medical condition. Verification of therapeutic benefit and effectiveness with current therapy was completed. Adverse events, barriers in adherence, and side effects were assessed and addressed if applicable. Will proceed with refill with no changes in therapy - patient progressing towards achieving therapeutic goals based on medication- specific laboratory parameters, disease state markers and outcomes. Nuno ResendizD Clinical Pharmacist, Oncology [facility] P: ; F: Pool: P [facility] Pool #: [id number] Processing Archivist Assessment Patient confirmed: Yes Med/dose confirmed: Yes Supplies needed: No supplies needed Missed doses: No Estimated days supply on hand: 10 Copay amount: 0 Payment confirmed: No Delivery method: FedEx Signature required: No Delivery address: [address] [place] [address] RD *leave between screen door*,[place] [address] Delivery date: 02/09/22 [facility] Visit Assessment - Hematology/Oncology: Ivent complete: No Assessment to use: Refill Vaccination Assessment: Date of influenza vaccination reminder: 12/08/2021 Date of most recent vaccination assessment: 12/08/2021 Treatment Plan Information: Treatment Plan Information: Dx: mCSPC Tx Hx: intermittent ADT in past Tx Plan: erleada and eligard Medication: erleada Dose: 240mg Sig: Take 4 tablets (240 mg) by mouth once daily. Admin/Storage: Same time each day, with or without food A/E and Warnings: Cardiac events, dermatologic toxicities, fractures, seizures, thyroid dysfunction,HTN, edema, hot flash, hyper cholesterolemia, hyperglycemia, hyperkalemia , hypertriglyceridemia increased thyroid stimulating hormone level , weight loss, decreased appetite, diarrhea, nausea, fatigue, arthralgia, ane forest, leukopenia, lymphocytopenia D/I: Category C with atorvastatin-CY Inducers (Strong) may decrease the serum concentration of Atorvastatin, Monitor for decreased atorvastatin effects Lab/Monitoring: TSH-as clinically necessary Monitor for signs/symptoms of cardiovascular events, cerebrovascular events, seizure, and dermatologic toxicity. Assess for fall and fracture risk. Refill Assessment: Lab monitoring inclusive of CBC, Chem-7, and other labs as pertinent for therapy: Yes Chemo cycle timing assessment: N/A Screening for infection: Yes Adverse reactions and mitigation: Yes Medication changes and interaction assessment: Yes Assessment of injection issues: N/A Additional Assessment: Assessment of continued need for prophylactic medications at regular intervals: Yes Radiology procedure timing to assess for disease progression: Yes Scheduled future appointments: Yes Anabelle Choi (Director Digital Strategy) documented in this encounterMercy Health [facility]11-15-2022 History of Present illness Narrative* Pranav Tate PA-C - 02/01/2022 5:53 PM EST Images from the original note were not included. [facility] CC: Prostate Cancer Follow-Up HPI: This is a 86 year old, male with a history of Adenocarcinoma of Prostate, who is here for follow upto discuss PSA and Lupron Therapy He will need to continue to follow Medical Oncology for Chemotherapy , and they can also do the Lupron Injection if patient wishes Or I can see him every 4 months with newest PSA to see if he need Lupron/Eligard Patients PSA Current - PSA (ng/mL) Date Value 01/07/2022 0.19 09/23/2020 0.92 Previous - PSA (ng/mL) Date Value 01/07/2022 0.19 10/08/2021 204.80 09/23/2020 0.92 07/05/2019 0.25 03/06/2019 33.08 03/04/2019 29.01 PSA's Component Latest Ref Rng & Units 03/04/2019 03/06/2019 07/05/2019 09/23/2020 10/08/2021 01/07/2022 PSA <2.60 ng/mL 29.01 (H) 33.08 (H) 0.25 0.92 204.80 (H) 0.19 ALLERGY ALLERGIES No Known Allergies MEDICATION: apalutamide (ERLEADA) 60 mg tab^Take 4 tablets (240 mg) by mouth once daily.^Disp: 120 tablet^Rfl: 2 cyclobenzaprine (FLEXERIL) 5 mg tablet^Take by mouth three times daily.^Disp: ^Rfl: ergocalciferol 50,000 unit capsule (VITAMIN D2, DRISDOL)^Take 1 capsule by mouth one time a week.^Disp: 12 capsule^Rfl: 3 hydroCHLOROthiazide (HYDRODIURIL, ESIDRIX) 12.5 mg capsule^Take 12.5 mg by mouth once daily.^Disp: ^Rfl: losartan (COZAAR) 25 mg tablet^Take 25 mg by mouth once daily.^Disp: ^Rfl: metoprolol tartrate, short acting, (LOPRESSOR) 50 mg tablet^Take 50 mg by mouth twice daily.^Disp: ^Rfl: atorvastatin 40 mg tablet^Take 20 mg by mouth once daily. ^Disp: ^Rfl: aspirin, enteric coated 81 mg EC tablet^Take 81 mg by mouth once daily.^Disp: ^Rfl: GLUCOSAM/MSM/CHONDR/VIT C/HYAL (TJNXSEKXPRH-BYENNITDECG-KOK ORAL)^Take by mouth once daily.^Disp: ^Rfl: nitroglycerin sublingual 0.3 mg SL tablet^Dissolve 0.3 mg under the tongue every 5 minutes as needed.^Disp: ^Rfl: Calcium Carbonate-Vitamin D3 600mg (1,000mg) -1,000 unit ORAL Tab^Take 1 tablet by mouth once daily.^Disp: 30 tablet^Rfl: 6 Fish Oil-Shields-3 Fatty Acids 500-300 mg ORAL Cap^Take one(1) tablet daily.^Disp: ^Rfl: 0 oxybutynin XL (DITROPAN XL) 5 mg 24 hr tablet^Take 1 tablet by mouth once daily.^Disp: 90 tablet^Rfl: 3 CONTINENCE: N/A POTENCY: N/A HISTORIES: FAMILY HISTORY Problem Relation Age of Onset Breast Cancer Mother Cancer Father PAST MEDICAL HISTORY Diagnosis Date Bone metastases (HCC) 10/08/2021 HTN (hypertension) Prostate cancer (HCC) SCC (squamous cell carcinoma), face Social History Social History Narrative Not on file REVIEW OF SYSTEMS: General:No weight loss, malaise or fevers. Genitourinary: No history of dysuria, frequency or incontinence The remainder of the ROS was negative. PHYSICAL EXAMINATION: Blood pressure 104/70, pulse 88, temperature 36.2 C (97.1 F), temperature source Temporal, resp. rate 14, height 170.2 cm (5' 7), weight 93 kg (205 lb), SpO2 97 %. Body mass index is 32.11 kg/m . General appearance: Well appearing, in no acute distress, and well-hydrated, well nourished Skin: Skin color, texture, turgor normal, no suspicious rashes or lesions Head: Normocephalic, no masses, lesions, tenderness or abnormalities Abdomen: Normal abdominal exam, Abdomen soft, non-tender. Bowel sounds normal. No masses, organomegaly IMPRESSION & PLAN: > History of Prostate Cancer currently on ADT (Lupron 30 mg - 4 month) > PSA - stable - 0.19 > Trial of Ditopan 5 mg for OSAB > 4 month appointment with FRANNY Tate, prior to visit, PSA ordered SHARRI Palacios MT, PA-C * Adela Ramos LPN - 02/01/2022 4:48 PM EST Verified name and date of . Patient has questions related to his care he would like to discuss with provider. documented in this encounterMercy Health [facility]11-09-2022 Miscellaneous Notes* Telephone Encounter - Adela Ramos LPN - 01/26/2022 10:39 AM EST Called patient. Verified name and date of . Patient reports having scheduled appointment againto discuss more indepth with Pranav Tate PA-C plan of care and what to expect. Reports having had some confusion on his diagnosis with Dr. Becerra and wants to be clear on what is going on with himself. Adela Ramos LPN * Telephone Encounter - Pranav Tate PA-C - 01/25/2022 4:46 PM EST He needs a new PSA in 4 months. No Lupron needed at this time his PSA was 0.19 SHARRI Palacios MT, PA-C * Telephone Encounter - Gilda Back LPN - 01/25/2022 2:[address] Becerra is retiring at the end of the year, he feels if Pt. Is fine with seeing Pranav Tate thenhe should continue. Gilda Back LPN * Telephone Encounter - Adela Ramos LPN - 01/25/2022 2:45 PM EST Patient not seen in urology due to PSA level of 0.19 in December. He is asking to have clarificationof who he is supposed to be seeing in the future stating he doesn't understand why he is seeing both providers. Adela Ramos LPN * Telephone Encounter - Gilda Back LPN - 01/25/2022 2:37 PM EST Spoke with pts. , stated pt. Had appt. With Pranav Tate today. Gilda Back LPN * Telephone Encounter - Aparna Becerra MD - 01/25/2022 2:26 PM EST He was getting Eligard upstairs at the urology office. If he wished to have us continue Lupron down in oncology we could change that. But since he is already scheduled with Pranav Tate, just keeps his appointment for this month. Aparna Becerra MD * Telephone Encounter - Adela Ramos LPN - 01/25/2022 2:10 PM EST Verified name and date of . Patient would like to know if he needs to be seeing both Dr. Becerra and Pranav Tate PA-C. Reports being confused and would like clarification. Adela Ramos LPN documented in this encounterCleveland [id number] Miscellaneous Notes* Telephone Encounter - Destinee Zhu - 01/19/2022 10:30 AM EDT Pt will keep appt with Urology first and discuss the need for oncology appt at that time. Destinee Zhu * Telephone Encounter - Kelli Levine Pss - 01/19/2022 10:18 AM EDT Patient asking if he needs to see Pranav Tate and Dr. Becerra for the same reasons. He called stating he is willing to if needed, however, states both providers are treating the same diagnosis. Pleasecall patient and advise. Okay to leave message. documented in this encounterMercy [facility]10-24-2022 Miscellaneous Notes* Telephone Encounter - Leisa Woods LPN - 01/10/2022 8:38 AM EDT OV note faxed (includes labs). Leisa Woods LPN * Telephone Encounter - Leisa Woods LPN - 01/07/2022 11:35 AM EDT Patient seen today. OV note not completed. Will fax when signed. Leisa Woods LPN * Telephone Encounter - Ingris Flor Pss - 01/07/2022 11:02 AM EDT Jewels from Dr Subramanian's office is requesting last office notes and any labs be faxed to them at [phone] documented in this encounterMercy Health Kings [facility]09-20-2022 History of Present illness Narrative* Anabelle Choi (Director Digital Strategy) - 12/07/2021 9:30 AM EDT [facility] Refill Assessment Medication(s): Erleada Patient's current medication list and adherence status to current therapy were reviewed by Specialty Pharmacy clinical pharmacist to identify any new drug interactions or non-compliance to therapy. Therapy continues to be appropriate for disease, patient response, and medical condition. Verification of therapeutic benefit and effectiveness with current therapy was completed. Adverse events, barriers in adherence, and side effects were assessed and addressed if applicable. Will proceed with refill with no changes in therapy - patient progressing towards achieving therapeutic goals based on medication- specific laboratory parameters, disease state markers and outcomes. Processing Archivist Assessment Patient confirmed: Yes Med/dose confirmed: Yes Supplies needed: No supplies needed Estimated days supply on hand: 10 Copay amount: 0 Payment confirmed: Yes Delivery method: FedEx Signature required: No Delivery address: [address] [place] [id number] Delivery date: 12/10/21 Questions or concerns for the pharmacist?: No [facility] Visit Assessment - Hematology/Oncology: Assessment to use: Refill Vaccination Assessment: Date of influenza vaccination reminder: 10/13/2021 Date of most recent vaccination assessment: 10/13/2021 Treatment Plan Information: Treatment Plan Information: Dx: mCSPC Tx Hx: intermittent ADT in past Tx Plan: erleada and eligard Medication: erleada Dose: 240mg Sig: Take 4 tablets (240 mg) by mouth once daily. Admin/Storage: Same time each day, with or without food A/E and Warnings: Cardiac events, dermatologic toxicities, fractures, seizures, thyroid dysfunction,HTN, edema, hot flash, hyper cholesterolemia, hyperglycemia, hyperkalemia , hypertriglyceridemia increased thyroid stimulating hormone level , weight loss, decreased appetite, diarrhea, nausea, fatigue, arthralgia, [place], leukopenia, lymphocytopenia D/I: Category C with atorvastatin-CY Inducers (Strong) may decrease the serum concentration of Atorvastatin, Monitor for decreased atorvastatin effects Lab/Monitoring: TSH-as clinically necessary Monitor for signs/symptoms of cardiovascular events, cerebrovascular events, seizure, and dermatologic toxicity. Assess for fall and fracture risk. Anabelle JensenAscendant Dx) documented in this encounterCleveland [id number] Miscellaneous Notes* Telephone Encounter - Leisa Woods LPN - 11/02/2021 9:08 AM EDT Patient notified. Leisa Woods LPN * Telephone Encounter - Aparna Becerra MD - 11/02/2021 7:59 AM EDT Patient's request for medication is as follows Requested Prescriptions Signed Prescriptions Disp Refills apalutamide (ERLEADA) 60 mg tab 120 tablet 0 Sig: Take 4 tablets (240 mg) by mouth once daily. Authorizing Provider: APARNA BECERRA Order entered - please phone pharmacy and notify patient. Aparna Becerra MD * Telephone Encounter - Leisa Woods LPN - 11/01/2021 5:05 PM EDT Please send Rx. Leisa Woods LPN * Telephone Encounter - Ingris Davenport - 11/01/2021 5:00 PM EDT Patient is calling asking if he will need to reorder the Erleada 60 mg medication . Please advise the patient., documented in this encounterMercy Health [facility]08-08-2022 Miscellaneous Notes* Telephone Encounter - Irene Florentino RN - 10/25/2021 10:44 AM EDT ORAL ANTI-CANCER AGENTS FOLLOW-UP PHONE CALL/VISIT Patient identified by name and date of . YES Patient is on day 11 of Apalutamide for Prostate Cancer. SYMPTOM ASSESSMENT Headache: No Visual Changes: No Dizziness: No Do you have any periods of confusion? No Mood changes: No Mouth or throat pain: No Appetite: no changes in appetite, appetite fair Taste changes: No Nausea: No Vomiting: No Heartburn: No. Weight gain/loss: Unable to assess Episodes of palpitations/chest discomfort/pressure/pain No Shortness of breath: No Cough: No Diarrhea: no Constipation: no Bladder/Urinary Changes: None Pain: No=0 (pain 0 on a scale of 0-10). Fever: No Chills: No Cold sensitivity: No Numbness/weakness: No Edema: No Skin changes: No Itching: No Yellowing of skin or eyes: No Musculoskeletal/joint changes/issues No Bleeding issues: No Activity Level (0-100%): same as baseline Do you need to take naps? No Does the patient need interventions or same day appointment:No ADDITIONAL FOLLOW UP: The next outreach call is due on: as needed and was scheduled as needed The following lab tests are due: 01/07/22 Verified patient is aware of next appointment in the cancer center: Yes. Verified patient verbalized how to correctly refill the oral agent prescription. Yes Does the patient have any financial difficulties affording this medication? No Patient verbalizes understanding of when to seek Medical Attention? YES Patient verbalizes understanding of after-hours and weekend phone number? YES Patient verbalized importance of medication compliance in taking the oral agent as prescribed. Patient instructed to call if unable to comply. Irene Florentino RN documented in this encounterMercy Health [facility]08-05-2022 Miscellaneous Notes* Telephone Encounter - Brett Villegas - 10/22/2021 11:32 AM EDT Rec'd call back from pt, advised of navigator services. Pt stated understanding and advised that they do not require assistance but will follow up if needed. * Telephone Encounter - Brett Villegas - 10/22/2021 10:39 AM EDT Working Cancer [facility]. Non chemo regimen. Patient is active with [employer] Medicare, LOC 96%, $150 deductible has $0 remaining, $1500 OOP has $1003.30 remaining. Estimate shows patient financial responsibility is $26.78 for each treatment in [place]AK[facility] WSTR until oop max is reached. Reference #[id number]. Thereare no open foundations for Dx. Called patient, no answer, left vm documented in this encounterMercy Health [facility]07-27-2022 Miscellaneous Notes* Telephone Encounter - Trina Murray LPN - 10/13/2021 2:31 PM EDT Will fax this information to Dr Macario, his courtesy bus driver. Trina Murray LPN * Telephone Encounter - Aparna Becerra MD - 10/13/2021 1:15 PM EDT I spoke to Mr. Carpenter today regarding aspirin and ticagrelor. He had a minor heart attack and a cardiac stent placement 5 years ago. He had no recurrent anginal symptoms. He should be able to stop ticagrelor and continue with aspirin 81 mg daily. Aparna Becerra MD * Telephone Encounter - Aparna Becerra MD - 10/12/2021 4:47 PM EDT Please ask Mr. Carpenter to stop TICAGRELOR because of interaction with APALUTAMIDE Ask his courtesy bus driver about stopping TICAGRELOR and continue with aspirin 81 mg once daily only. Prasugrel could be a reasonable substitute if he absolutely needs to be on both aspirin and ticagrelor. Aparna Becerra MD documented in this encounterMercy Health [facility]07-25-2022 Miscellaneous Notes* Telephone Encounter - Aparna Becerra MD - 10/11/2021 11:28 AM EDT Yes. He could take calcium carbonate 500 mg twice daily with ergocalciferol once weekly Aparna Becerra MD * Telephone Encounter - Gilda Back LPN - 10/11/2021 9:21 AM EDT Pt. Already has Calcium with vitamin D that he takes twice a day. Can he continue to take this BID along with the Vitamin D 50,000units once a week? Does not want to go out and buy just Calcium Gilda Back LPN * Telephone Encounter - Aparna Becerra MD - 10/11/2021 8:55 AM EDT No, he needs to take both or take just calcium without vitamin D3 Signed Prescriptions Disp Refills ergocalciferol 50,000 unit capsule (VITAMIN D2, DRISDOL) 12 capsule 3 Sig: Take 1 capsule by mouth one time a week. JOEL: No Authorizing Provider: APARNA BECERRA Order entered - please phone pharmacy and notify patient. Aparna Becerra MD * Telephone Encounter - Trina Murray LPN - 10/11/2021 8:20 AM EDT pt states he is taking a daily calcium with D. Would you like him to D/C and just take the weekly D? Please resend RX to Carolin Caicedo. Trina Murray LPN * Telephone Encounter - Aparna Becerra MD - 10/09/2021 10:00 AM EDT Start ergocalciferol 50,000 U weekly. His vitamin D level was low. Signed Prescriptions Disp Refills ergocalciferol 50,000 unit capsule (VITAMIN D2, DRISDOL) 12 capsule 3 Sig: Take 1 capsule by mouth one time a week. Authorizing Provider: APARNA BECERRA Order entered - please phone pharmacy and notify patient. Aparna Becerra MD documented in this encounterMercy Health [facility]07-22-2022 History of Present illness Narrative* Anabelle Choi (Ascendant Dx) - 10/08/2021 11:08 AM EDT [facility] received prescription(s) for Erleada from Dr. Becerra's office. Benefits investigation was conducted, indicating that a prior authorization is required by patient's insurance plan with [employer]/ [employer]. Encounter will be updated once prior authorization has been submitted by [facility]. Anabelle Choi CPHt documented in this encounterMercy Health Kings [facility]07-22-2022 History and physical note * Aparna Becerra MD - 10/08/2021 10:12 AM EDT Hematology and Medical Oncology PATIENT NAME: Alex Carpenter. CLINIC NO: [id number]. ATTENDING PHYSICIAN: Aparna Becerra MD. DATE OF SERVICE:10/08/2021. DIAGNOSIS: Metastatic prostate cancer Consultation requested by Pranav Tate PA-C for an opinion regarding metastatic prostate cancer.My final recommendations will be communicated back to the requesting physician by way of shared Medical record or letter to requesting physician via US mail. PERFORMANCE STATUS:80% HPI: 86-year-old gentleman diagnosed with prostate cancer in 1998, status post radical prostatectomy for Parish score 6 = 3+3. He has been on intermittent ADT for biochemical failure, elevated PSA, in the past. Component Latest Ref Rng & Units 03/04/2019 03/06/2019 07/05/2019 09/23/2020 PSA 0.00 - 2.59 ng/mL 29.01 (H) 33.08 (H) 0.25 0.92 He has not had LHRH injection until recently when his PSA was over 210 by his primary care physician because of generalized aches and pain. Subsequent CT scan of the abdomen pelvis and bone scan recently showed findings suggestive of metastatic deposit along the anterior aspect of the right seventhrib in the pedicle of the left side of T12. There is left hemisacrum activity as well. Degenerativechanges noted in both knees and both shoulder joints. His bone density test within the last year showed evidence of osteopenia. He saw Amy Tate 2 weeks ago and started back on androgen deprivation therapy with Eligard. He has no hot flashes, increased fatigue or muscle weakness. He denies difficulty with urination. He has general arthritis pain in both knee and shoulder along with generalized aching. No change in weight or appetite. MEDICATIONS: Current Outpatient Medications Medication Sig hydroCHLOROthiazide (HYDRODIURIL, ESIDRIX) 12.5 mg capsule Take 12.5 mg by mouth once daily. losartan (COZAAR) 25 mg tablet Take 25 mg by mouth once daily. metoprolol tartrate, short acting, (LOPRESSOR) 50 mg tablet Take 50 mg by mouth twice daily. atorvastatin 40 mg tablet Take 20 mg by mouth once daily. aspirin, enteric coated 81 mg EC tablet Take 81 mg by mouth once daily. ticagrelor 90 mg tab tab(s) Take 90 mg by mouth twice daily. GLUCOSAM/MSM/CHONDR/VIT C/HYAL (UETIGGZTMHT-[id number]-PPW ORAL) Take by mouth once daily. nitroglycerin sublingual 0.3 mg SL tablet Dissolve 0.3 mg under the tongue every 5 minutes as needed. Calcium Carbonate-Vitamin D3 600mg (1,000mg) -1,000 unit ORAL Tab Take 1 tablet by mouth once daily. Fish Oil-Shields-3 Fatty Acids 500-300 mg ORAL Cap Take one(1) tablet daily. apalutamide (ERLEADA) 60 mg tab Take 4 tablets by mouth once daily. Current Facility-Administered Medications Medication Dose Route Frequency leuprolide 30 mg injection (ELIGARD) 30 mg SUBCUTANEOUS q 4 MONTHS . ALLERGIES:ALLERGIES No Known Allergies. PAST MEDICAL HISTORY: PAST MEDICAL HISTORY Diagnosis Date Bone metastases (HCC) 10/08/2021 HTN (hypertension) Prostate cancer (HCC) SCC (squamous cell carcinoma), face . PAST SURGICAL HISTORY: PAST SURGICAL HISTORY Procedure Laterality Date PROSTATECTOMY;RADICAL RETROPUBIC 1996 . FAMILY HISTORY: FAMILY HISTORY Problem Relation Age of Onset Breast Cancer Mother Cancer Father . SOCIAL HISTORY: Social History Tobacco Use Smoking status: Never Smoker Smokeless tobacco: Never Used Vaping Use Vaping Use: Never used Substance Use Topics Alcohol use: No Drug use: Never . REVIEW OF SYSTEMS: CONSTITUTIONAL: No fevers, chills, nightsweats, unintended weight loss HEENT: Denies frequent or severe heaches, nasal congestion/sinus symptoms, problematic allergy problems. He has no teeth, all dentures. EYES: No diplopia or blurry vision. CARDIOVASCULAR: No chest pain, dyspnea, palpitations, orthopnea, PND, ankle edema. PULM: No dyspnea, unexplained cough. GI: No dysphagia/odynophagia, problematic reflux, constipation, diarrhea, changes in stool habits, hematochezia, melena. : No new urinary complaints, including dysuria, gross hematuria or pyuria. NEURO: No new balance problems, peripheral weakness/paresthesias or numbness of concern. MUSC-SKEL: No new joint pain, swelling, or erythema. PSY: No concerns regarding depression, anxiety or panic. INTEGUMENTARY: No new skin changes (rash, new or changing mole, new growth) PHYSICAL EXAMINATION: BP 101/63 Pulse 71 Temp 97.4 Ht 5' 5.748 (1.67m) Wt 198 lb (89.8kg) SpO2 98% BMI 32.20 kg/(m^2). HEENT: Head is normocephalic, atraumatic. Sclerae white, conjunctivae pink. PEERL. EOMs are intact.Oropharynx is benign. LYMPHATICS: There is no palpable adenopathy in the neck, supraclavicular region, axillae, or groin. LUNGS: Lungs are clear to percussion and auscultation. HEART: Heart is normal without murmurs, gallops, or rubs. ABDOMEN: Soft and nontender without organomegaly. No masses can be palpated. EXTREMITIES: Are without edema. NEUROLOGIC: Exam is physiologic LABORATORY DATA: Component Latest Ref Rng & Units 10/08/2021 WBC 3.70 - 11.00 k/uL 7.59 RBC 4.20 - 6.00 m/uL 4.43 Hemoglobin 13.0 - 17.0 g/dL 13.8 Hematocrit 39.0 - 51.0 % 41.3 MCV 80.0 - 100.0 fL 93.2 MCH 26.0 - 34.0 pg 31.2 MCHC 30.5 - 36.0 g/dL 33.4 RDW-CV 11.5 - 15.0 % 14.7 Platelet Count 150 - 400 k/uL 266 MPV 9.0 - 12.7 fL 10.2 Neut% % 74.1 Abs Neut (ANC) 1.45 - 7.50 k/uL 5.62 Lymph% % 12.5 Abs Lymph 1.00 - 4.00 k/uL 0.95 (L) Inyo% % 7.5 Abs Inyo <0.87 k/uL 0.57 Eosin% % 4.7 Abs Eosin <0.46 k/uL 0.36 Baso% % 0.5 Abs Baso <0.11 k/uL 0.04 Immature Gran % % 0.7 IMMATURE GRANS (ABS) <0.10 k/uL 0.05 NRBC /100 WBC 0.0 Absolute nRBC <0.01 k/uL <0.01 DTYPE Auto Component Latest Ref Rng & Units 10/08/2021 Protein, Total 6.3 - 8.0 g/dL 6.4 Albumin 3.9 - 4.9 g/dL 4.0 Calcium 8.5 - 10.2 mg/dL 8.7 Bilirubin, Total 0.2 - 1.3 mg/dL 1.0 Alkaline Phosphatase 38 - 113 U/L 116 (H) AST 14 - 40 U/L 19 ALT 10 - 54 U/L 11 Glucose 74 - 99 mg/dL 189 (H) BUN 9 - 24 mg/dL 20 Creatinine 0.73 - 1.22 mg/dL 1.18 Sodium 136 - 144 mmol/L 143 Potassium 3.7 - 5.1 mmol/L 3.3 (L) Chloride 97 - 105 mmol/L 106 (H) CO2 22 - 30 mmol/L 24 Anion Gap 9 - 18 mmol/L 13 eGFR >=60 mL/min/1.73m 60 Component Latest Ref Rng & Units 10/08/2021 PSA <2.60 ng/mL 204.80 (H) Testosterone 193 - 824 ng/dL 101 (L) Vitamin D 25 Hydroxy 31.0 - 80.0 ng/mL 24.6 (L) IMAGING: CT abdomen pelvis, bone scan, bone density test were reviewed with patient and his family ASSESSMENT:86-year-old gentleman with hormone sensitive metastatic prostate cancer. He has increased symptoms of aches and pain likely related to his bone metastasis. No side effects so far from androgen deprivation therapy. PLAN: -I recommend that he continue androgen deprivation therapy with Eligard 30mg SQ every 4 months indefinitely -Start Zometa 4 mg IV every 6 months to prevent osteoporosis with ADT -Start apalutamide 240 mg orally, once daily. Indication and side effects of treatment discussed including cost of therapy. The patient and family were allowed enough time to ask questions. All questions were answered to their satisfaction. Patient and family verbalized understanding of treatment plan and agreed to proceed with therapy. Patient assistant teacher program was also discussed today. -Repeat CBC, CMP, PSA & vitamin D 25 office visit in 3 months I spent 60 minutes in the visit, with more than 50% of the total [id number] time of the visit in counseling / coordination of care. Aparna Becerra MD. ELECTRONICALLY SIGNED Cc: Dr. Otto Subramanian documented in this encounterMercy Health [facility]07-22-2022 Instructions* Patient Instructions* Aparna Becerra MD - 10/08/2021 9:45 AM EDT Information on Apalutamide for metastatic prostate cancer documented in this encounterMercy Health Kings [facility]07-11-2022 Miscellaneous Notes* Telephone Encounter - Pranav Tate PA-C - 09/27/2021 6:21 PM EDT I will try to call monday while in the office, however, this patient really needs to see Medical Oncology regarding possible metastatic Prostate cancer with PSA at 245 outside lab, and likely he will need ADT every 4 months, up until no his follow ups have been scattered last Injection in out office was 07/[address] Becerra - Medical Oncology [facility] SHARRI Palacios, [place], RODRICK * Telephone Encounter - Anabelle Osborne RN - 09/27/2021 2:47 PM EDT Received call from Dr. Otto Subramanian's office. He would like to discuss results of body scan with Pranav indicating 3 areas of possible metastasis of prostate cancer. Please call to discuss at your soonest convenience. documented in this encounterMercy Health Kings [facility] Hospital07-08-2022 History of Present illness Narrative* Adela Ramos LPN - 09/24/2021 3:02 PM EDT Patient here for appointment with Pranav Tate PA-C with Eligard injection ordered. Verified with nurse, Sandee Whipple LPN dose ordered of Eligard 30 MG injection given SQ in Abdomen, RUQ. Tolerated well. Patient to return in four months as advised by Pranav and patient verbalizes understanding. Adela Ramos LPN * Pranav Tate PA-C - 09/24/2021 2:17 PM EDT CC : Prostate Cancer Follow-Up HPI: Long history of prostate cancer, status post radical prostatectomy 1998. Last visit he was given Eligard ADT Injection 30 mg for his PSA of 52 04/2020 He states he is unaware that he needed to come in for PSA testing and ADT injection every 4 months.given his PSA Of 245 he will get a Eligard Injection today. I have explained to him once again that every 4 months he will need to have a PSA test to know if he needs to get his injection If PSA is > 2.0 I recommend getting the injection PAS ordered for Jan VITALS: There were no vitals taken for this visit. LAB RESULTS: PSA (ng/mL) Date Value 09/23/2020 0.92 07/05/2019 0.25 03/06/2019 33.08 03/04/2019 29.01 PSA [facility] ( lab) - 52 PSA [facility] (lab) 245 Physical Exam: General appearance: cooperative, pleasant, no acute distress, alert and oriented, well hydrated, well nourished male. 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 The patient is here now for an appointment with SHARRI Palacios, [place], PA-COV. Procedure: Explained procedure to patient and verbalizes understanding. Performed a PVR. Patient urinated and instructed to empty bladder as much as possible just prior to having PVR done using bladder ultrasound scanner. Results of scan: 214 mL The patient tolerated the procedure well. Plan: Appointment with Pranav. documented in this encounterMercy Health Kings [facility] Hospital07-07-2022 Miscellaneous Notes* Telephone Encounter - Adela Ramos LPN - 09/23/2021 9:43 AM EDT Called [facility]- not available. Left message requesting lab to be faxed for appointment tomorrow. Adela Ramos LPN * Telephone Encounter - Lupe Barraza RN - 09/22/2021 12:00 PM EDT Pt called in to notify that his PCP Otto Subramanian ordered a PSA test and results were 200. Pt scheduled with Pranav 09/24/21 and will have office fax results to urology office. documented in this encounterMercy Health Kings Mills HospitalEvaluation note* Diagnosis Onset Date Resolution Status Bilateral carotid bruits acu te Nonrheumatic aortic (valve) stenosis acute Premature atrial contractions acute Atherosclerotic heart diseas e of [place] coronary artery without angina pectoris chronic Essential hypertension chron ic Hyperlipidemia chronic Presence of stent in coronary artery Jul, 2013 [facility] Work Phone: Evaluation note* Diagnosis Prostate cancer (HCC)- Primary Malignant neoplasm of prostate Elevated PSA Elevated prostate specific antigen (PSA) documented in this encounter [facility]* Diagnosis Malignant neoplasm of prostate (HCC)- Primary Malignant neoplasm of prostate documented in this encounter [facility]* Diagnosis Malignant neoplasm of prostate (HCC)- Primary Malignant neoplasm of prostate 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 Osteopenia determined by x-ray documented in this encounter [facility]* Diagnosis Osteopenia determined by x-ray- Primary Vitamin D deficiency Unspecified vitamin D deficiency [facility]* Diagnosis 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 Malignant neoplasm of prostate (HCC) Malignant neoplasm of prostate documented in this encounter [facility] [place]* Diagnosis Malignant neoplasm of prostate (HCC) Malignant neoplasm of prostate 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 [facility] Diagnosis Malignant neoplasm of prostate (HCC)- Primary Malignant neoplasm of prostate [facility] Diagnosis Malignant neoplasm of prostate (HCC) Malignant neoplasm of prostate 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 [facility] Diagnosis Malignant neoplasm of prostate (HCC)- Primary Malignant neoplasm of prostate [facility] Diagnosis Malignant neoplasm of prostate (HCC)- Primary Malignant neoplasm of prostate [facility] Diagnosis Prostate cancer (HCC)- Primary Malignant neoplasm of prostate [facility] Diagnosis Elevated PSA- Primary Elevated prostate specific antigen (PSA) documented [facility] Diagnosis Malignant neoplasm of prostate (HCC)- Primary Malignant neoplasm of prostate [facility] Diagnosis Malignant neoplasm of prostate (HCC) Malignant neoplasm of prostate 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 [facility] [place] noteNo assessment information [facility]WMer[facility] Work Phone: Evaluation note* Diagnosis 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 Malignant neoplasm of prostate (HCC) Malignant neoplasm of prostate [facility] Diagnosis Malignant neoplasm of prostate (HCC)- Primary Malignant neoplasm of prostate [facility] Diagnosis 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 Malignant neoplasm of prostate (HCC) Malignant neoplasm of prostate [facility] 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 Malignant neoplasm of prostate (HCC) Malignant neoplasm of prostate [facility] Diagnosis Malignant neoplasm of prostate (HCC)- Primary Malignant neoplasm of prostate [facility] Diagnosis Early onset cerebellar ataxia (HCC)- Primary Other cerebellar ataxia [facility] Diagnosis Malignant neoplasm of prostate (HCC)- Primary Malignant neoplasm of prostate 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 [facility] Diagnosis Malignant neoplasm of prostate (HCC)- Primary Malignant neoplasm of prostate 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 [facility] Diagnosis Malignant neoplasm of prostate (HCC)- Primary Malignant neoplasm of prostate [facility] Diagnosis 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 Malignant neoplasm of prostate (HCC) Malignant neoplasm of prostate [facility] Diagnosis 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 Malignant neoplasm of prostate (HCC) Malignant neoplasm of prostate [facility] Diagnosis Malignant neoplasm of prostate (HCC)- Primary Malignant neoplasm of prostate 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 [facility] Diagnosis Malignant neoplasm of prostate (HCC)- Primary Malignant neoplasm of prostate 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 [facility] Diagnosis 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 Malignant neoplasm of prostate (HCC) Malignant neoplasm of prostate [facility] Diagnosis 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 Malignant neoplasm of prostate (HCC) Malignant neoplasm of prostate [facility] Diagnosis 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 [facility] Diagnosis 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 Malignant neoplasm of prostate (HCC) Malignant neoplasm of prostate [facility] Diagnosis Osteopenia determined by x-ray Vitamin D deficiency Unspecified vitamin D deficiency [facility]* Diagnosis Onset Date Resolution Status Carotid artery disease acute Nonrheumatic aortic (valve) stenosis acute Premature atrial contractions acute Essential hypertension chron ic Hyperlipidemia chronic Presence of stent in coronary artery Jul, 2013 [facility] Work Phone: Evaluation note* Diagnosis 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 [facility] Diagnosis 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 Malignant neoplasm of prostate (HCC) Malignant neoplasm of prostate [facility] Diagnosis Malignant neoplasm of prostate (HCC)- Primary Malignant neoplasm of prostate 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 [facility]* Diagnosis OAB (overactive bladder)- Primary Hypertonicity of bladder Malignant neoplasm of prostate (HCC) Malignant neoplasm of prostate [facility] Diagnosis Malignant neoplasm of prostate (HCC)- Primary Malignant neoplasm of prostate 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 [facility] Diagnosis Loss of balance- Primary Other symptoms involving nervous and musculoskeletal systems Osteopenia determined by x-ray Vitamin D deficiency Unspecified vitamin D deficiency 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 [facility] Diagnosis Recurrent falls- Primary Personal history of fall Loss of balance Other symptoms involving nervous and musculoskeletal systems History of prostate cancer Personal history of malignant neoplasm of prostate History of stroke Transient ischemic attack (TIA), and cerebral infarction without residual deficits Neuropathy Mononeuritis of unspecified site Other symptoms and signs involving the nervous system Low back pain, unspecified back pain laterality, unspecified chronicity, unspecified whether sciatica present [facility] Diagnosis Malignant neoplasm of prostate (HCC)- Primary Malignant neoplasm of prostate 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 [facility] Diagnosis Low back pain, unspecified back pain laterality, unspecified chronicity, unspecified whether sciatica present [facility] Diagnosis Other symptoms and signs involving the nervous system documented [facility] [place] [facility]* Diagnosis Recurrent falls- Primary Personal history of fall Neuropathy Mononeuritis of unspecified site Loss of balance Other symptoms involving nervous and musculoskeletal systems History of stroke Transient ischemic attack (TIA), and cerebral infarction without residual deficits Low back pain, unspecified back pain laterality, unspecified chronicity, unspecified whether sciatica present Spinal stenosis of lumbar region, unspecified whether neurogenic claudication present Intracranial carotid stenosis, unspecified laterality documented in this [facility]* Diagnosis Malignant neoplasm of prostate (HCC)- Primary Malignant neoplasm of prostate 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 Call and follow-up with Dr. Denilson Fernandes your oncologist and/or your primary care physician. Plenty of fluids and rest. If you are unable to ambulate you will need to return. If you have continued back pain with weakness in the legs or need to get an MRI of your lumbar and/or thoracic spineWMer[facility] Work Phone: Hospital Discharge instructions Additional Instructions ICE 20 min on, 20 min off. Continue stretching, follow up with physical therapy if needed.[facility] Work Phone: Reason for visit Narrative* MRI/CT (Routine) - Closed Specialty Diagnoses / Procedures Referred By Contac t Referred To Contact MR IMAGING Diagnoses Low back pain, unspecified back pain laterality, unspecified chronicity, unspecified whether sciatica present Procedures MRI LUMBAR SPINE WO/W IVCON MRI SPINAL CANAL LUMBAR W/O & W/CONTR Kaushal Olmedo Jr., MD [address] [place] [address] Phone: tel: fax: [place] [id number] Referral ID Status Reason Start Date Expiration Date V isits Requested Visits Authorized [id number] Closed Auto-Generate d Referral 05/24/2024 06/23/2025 1 1 [facility] N[facility]ative* MRI/CT (Routine) - Closed Specialty Diagnoses / Procedures Referred By Zack alexander Referred To Contact MR IMAGING Diagnoses Other symptoms and signs involving the nervous system Procedures MRI BRAIN WO/W IVCON MRI BRAIN BRAIN STEM W/O W/CONTRAST MATERIAL Kaushal Stockton Jr., MD [address] [place] [address] Phone: tel: fax: [place] [phone] Referral ID Status Reason Start Date Expiration Date V isits Requested Visits Authorized [id number] Closed Auto-Generate d Referral 05/24/2024 06/23/2025 1 1 [facility] Chief Complaint and Reason for Visit Chief Complaint 6 M FU PAIN Reason for Visit Bilateral carotid br uits Nonrheumatic aortic (valve) stenosis Premature atrial contractions Atherosclerotic heart disease of [place] coronary artery without angina pectoris Essential hypertension Hyperlipidemia Presence of stent in coronary artery Chief Complaint 6 M FU PAIN left sided chest pain INCREASING PAIN, WEAKNESS Reason for Visit Bilateral carotid br uits Nonrheumatic aortic (valve) stenosis Premature atrial contractions Atherosclerotic heart disease of [place] coronary artery without angina pectoris Essential hypertension Hyperlipidemia Presence of stent in coronary artery Chief Complaint GAIT ATAXIA / BALANC E CONCERNS / RX HERE Chief Complaint GAIT ATAXIA / BALANC E CONCERNS / RX HERE WEAKNESS Chief Complaint WEAKNESS Chief Complaint WEAKNESS ABD PAIN Chief Complaint WEAKNESS ABD PAIN ABD PAIN Chief Complaint GAIT ATAXIA,GAIT IMB ALANCE/RX EHRE Chief Complaint GAIT ATAXIA,GAIT IMB ALANCE/RX EHRE 6 M FU Nonrheumatic aortic (valve) stenosis Amb Documentation Reason for Visit Carotid artery disea se Nonrheumatic aortic (valve) stenosis Premature atrial contractions Essential hypertension Hyperlipidemia Presence of stent in coronary artery Chief Complaint GAIT ATAXIA,GAIT IMB ALANCE/RX EHRE 6 M FU Nonrheumatic aortic (valve) stenosis Amb Documentation Other specified symptoms and signs involving the c Amb Documentation Reason for Visit Carotid artery disea se Nonrheumatic aortic (valve) stenosis Premature atrial contractions Essential hypertension Hyperlipidemia Presence of stent in coronary artery Advance Directives No Advanced Directives Records Found Advance Directive Response Recorded Date/ Time Living Will Yes August 16, 2021 1 0:09am Power of Dry Cleaning Manager Yes August 16, 2021 10:09am Advance Directive Response Recorded Date/ Time Name of Medical Power of Dry Cleaning Manager August 16, 2021 10:09am Name of Medical Power of Dry Cleaning Manager August 31, 2021 4:12am Living Will Yes August 31, 2021 4:12am Power of Dry Cleaning Manager Yes August 31 4:12am Advance Directive Response Recorded Date/ Time Living Will Yes August 31, 2021 3:12am Power of Dry Cleaning Manager Yes August 31 3:12am Advance Directive Response Recorded Date/ Time Name of Medical Power of Dry Cleaning Manager Kimber Greyamy June 21, 2022 11:55pm Living Will Yes June 21, 2022 11:55pm Power of Dry Cleaning Manager Yes June 21 11:55pm Advance Directive Response Recorded Date/ Time Living Will Yes June 21, 2022 11:55pm Power of Dry Cleaning Manager Yes June 21 11:55pm Name of Medical Power of Dry Cleaning Manager Kimber Greyamy June 21, 2022 11:55pm Advance Directive Response Recorded Date/ Time Name of Medical Power of Dry Cleaning Manager Kimber Greyamy June 21, 2022 11:55pm Name of Medical Power of Dry Cleaning Manager KIMBER ASHAMY October 15, 2022 10:29am Living Will No October 15, 2022 10:29am Power of Dry Cleaning Manager Yes October 15 10:29am Advance Directive Response Recorded Date/ Time Name of Medical Power of Dry Cleaning Manager Kimber Greyamy June 21, 2022 11:55pm Name of Medical Power of Dry Cleaning Manager KIMBER ASHAMY October 15, 2022 10:29am Name of Medical Power of Dry Cleaning Manager kimber ashamy October 17, 2022 12:23pm Living Will No October 17, 2022 12:23pm Power of Dry Cleaning Manager Yes October 17 12:23pm Advance Directive Response Recorded Date/ Time Living Will No October 17, 2022 11:23am Power of Dry Cleaning Manager Yes October 17 11:23am Advance Directive Response Recorded Date/ Time Living Will No October 17, 2022 12:23pm Power of Dry Cleaning Manager Yes October 17 12:23pm Advance Directive Response Recorded Date/ Time Living Will No October 17, 2022 12:23pm Do you have a Healthcare Power of Dry Cleaning Manager? Yes October 17, 2022 12:23pm Medications Administered Section Active Administered Medications - up to 3 most recent administrations Medication Order MAR Action Action Date Dose Rate Site leuprolide 30 mg injection (ELIGARD) 30 mg, SUBCUTANEOUS, EVERY 4 MONTHS, 4 doses, First dose (after last reorder) on Mon09/24/21 at 1500, Last dose on Mon09/19/22 at 1500, Hazardous Chemotherapy Drug: Use appropriate PPE. Given 09/24/2021 3:00 PM EDT 30 mg Abdomen, RUQ Inactive Administered Medications - up to 3 most recent administrations Medication Order MAR Action Action Date Dose Rate Site zoledronic acid 3.5 mg in NaCl 0.9% 100 mL (ZOMETA) 3.5 mg, INTRAVENOUS, Administer over 15 Minutes, ONCE, 1 dose, On Mon10/25/21 at 1400, Hazardous Potential Reproductive Risk Drug: Use appropriate PPE. Refrigerate. New Bag/Syringe/Bottle 10/25/2021 2:24 PM EDT 3.5 mg Inactive Administered Medications - up to 3 most recent administrations Medication Order MAR Action Action Dose Rate Site zoledronic acid 3.5 mg in NaCl 0.9% 100 mL (ZOMETA) 3.5 mg, INTRAVENOUS, Administer over 15 Minutes, ONCE, 1 dose, On Mon04/25/22 at 1500, Hazardous Potential Reproductive Risk Drug: Use appropriate PPE. Refrigerate. New Bag/Syringe/Bottle 04/25/2022 3:00 PM EST 3.5 mg Inactive Administered Medications - up to 3 most recent administrations Medication Order MAR Action Action Dose Rate Site leuprolide 22.5 mg subcutaneous syringe (ELIGARD) 22.5 mg, SUBCUTANEOUS, ONCE, 1 dose, On Mon05/05/22 at 1100, Hazardous Chemotherapy Drug: Use appropriate PPE. Given 05/05/2022 11:07 AM EST 22.5 mg Abdomen, RLQ Inactive Administered Medications - up to 3 most recent administrations Medication Order MAR Action Action Date Dose Rate Site acetaminophen 650 mg tab(s) (TYLENOL) 650 mg, ORAL, ONCE, 1 dose, On Mon05/23/22 at 1430, Give 30 minutes before infusion. No more than 4000 mg of acetaminophen should be given per day (FROM ALL SOURCES), If ordered PRN for pain, patient/guardian may elect to receive this medication for higher pain levels INSTEAD of the opioid, if preferred: N/A Given 05/23/2022 2:20 PM EST 650 mg zoledronic acid 3.5 mg in NaCl 0.9% 100 mL (ZOMETA) 3.5 mg, INTRAVENOUS, Administer over 15 Minutes, ONCE, 1 dose, On Mon05/23/22 at 1430, Hazardous Potential Reproductive Risk Drug: Use appropriate PPE. Refrigerate. New Bag/Syringe/Bottle 05/23/2022 2:26 PM EST 3.5 mg Inactive Administered Medications - up to 3 most recent administrations Medication Order MAR Action Action Date Dose Rate Site zoledronic acid 3.5 mg in NaCl 0.9% 100 mL (ZOMETA) 3.5 mg, INTRAVENOUS, Administer over 15 Minutes, ONCE, 1 dose, On Mon07/18/22 at 1200, Hazardous Potential Reproductive Risk Drug: Use appropriate PPE. Refrigerate. New Bag/Syringe/Bottle 07/18/2022 11:44 AM EDT 3.5 mg Inactive Administered Medications - up to 3 most recent administrations Medication Order MAR Action Action Date Dose Rate Site leuprolide 22.5 mg subcutaneous syringe (ELIGARD) 22.5 mg, SUBCUTANEOUS, ONCE, 1 dose, On Mon07/28/22 at 0900, Hazardous Chemotherapy Drug: Use appropriate PPE. Given 07/28/2022 8:56 AM EDT 22.5 mg Abdomen, RLQ Inactive Administered Medications - up to 3 most recent administrations Medication Order MAR Action Action Date Dose Rate Site zoledronic acid 3.5 mg in NaCl 0.9% 100 mL (ZOMETA) 3.5 mg, INTRAVENOUS, Administer over 15 Minutes, ONCE, 1 dose, On Mon08/18/22 at 1430, Hazardous Potential Reproductive Risk Drug: Use appropriate PPE. Refrigerate. New Bag/Syringe/Bottle 08/18/2022 2:20 PM EDT 3.5 mg Inactive Administered Medications - up to 3 most recent administrations Medication Order MAR Action Action Date Dose Rate Site zoledronic acid 3.5 mg in NaCl 0.9% 100 mL (ZOMETA) 3.5 mg, INTRAVENOUS, Administer over 15 Minutes, ONCE, 1 dose, On Mon09/14/22 at 1430, Hazardous Potential Reproductive Risk Drug: Use appropriate PPE. Refrigerate. New Bag/Syringe/Bottle 09/14/2022 2:28 PM EDT 3.5 mg Inactive Administered Medications - up to 3 most recent administrations Medication Order MAR Action Action Date Dose Rate Site zoledronic acid 3.5 mg in NaCl 0.9% 100 mL (ZOMETA) 3.5 mg, INTRAVENOUS, Administer over 15 Minutes, ONCE, 1 dose, On Mon10/12/22 at 1530, Hazardous Potential Reproductive Risk Drug: Use appropriate PPE. Refrigerate. New Bag/Syringe/Bottle 10/12/2022 3:42 PM EDT 3.5 mg 400 mL/hr Inactive Administered Medications - up to 3 most recent administrations Medication Order MAR Action Action Dose Rate Site leuprolide 22.5 mg subcutaneous syringe (ELIGARD) 22.5 mg, SUBCUTANEOUS, ONCE, 1 dose, On Mon10/20/22 at 0930, Hazardous Chemotherapy Drug: Use appropriate PPE. Given 10/20/2022 9:45 AM EDT 22.5 mg Abdomen, LLQ Inactive Administered Medications - up to 3 most recent administrations Medication Order MAR Action Action Dose Rate Site zoledronic acid 3.5 mg in NaCl 0.9% 100 mL (ZOMETA) 3.5 mg, INTRAVENOUS, Administer over 15 Minutes, ONCE, 1 dose, On Mon11/09/22 at 1500, Hazardous Potential Reproductive Risk Drug: Use appropriate PPE. Refrigerate. New Bag/Syringe/Bottle 11/09/2022 3:00 PM EDT 3.5 mg Inactive Administered Medications - up to 3 most recent administrations Medication Order MAR Action Action Dose Rate Site zoledronic acid 3.5 mg in NaCl 0.9% 100 mL (ZOMETA) 3.5 mg, INTRAVENOUS, Administer over 15 Minutes, ONCE, 1 dose, On Mon03/03/23 at 1030, Hazardous Potential Reproductive Risk Drug: Use appropriate PPE. Refrigerate. New Bag/Syringe/Bottle 03/03/2023 10:16 AM EST 3.5 mg Reason for Referral Specialty Diagnoses / Procedures Referred By Contac t Referred To Contact MR IMAGING Diagnoses Early onset cerebellar ataxia (HCC) Procedures MRI BRAIN WO/W IVCON MRI BRAIN BRAIN STEM W/O W/CONTRAST MATERIAL Hanna Levin MD [address] [place] [address] Mr Imaging Referral ID Status Reason Start Date Expiration Date Visits Requested Visits Authorized [id number] Pending Review Auto-Generat ed Referral 06/21/2022 07/21/2023 1 1 Specialty Diagnoses / Procedures Referred By Contac t Referred To Contact Neurology Diagnoses Loss of balance Procedures CONSULT TO NEUROLOGY OFFICE/OUTPATIENT [facility] [address] [place] [address] [place] [address] Referral ID Status Reason Start Date Expiration Date Visits Requested Visits Authorized [id number] Authorized PCP Requested Referral 03/05/2025 1 1 Summary Purpose Family History No Family History Records FoundNo Family History Records Found Additional Source Comments Goals (unrecognized section and content) Goals may be documented in a n alternate sectionGoals may be documented in an alternate sectionGoals may be documented in an alternate sectionGoals may be documented in an alternate sectionGoals may be documented in an alternate sectionGoals may be documented in an alternate sectionGoals may be documented in an alternate sectionGoals may be documented in an alternate sectionGoals may be documented in an alternate sectionGoals may be documented in an alternate sectionGoals may be documented in an alternate sectionGoals may be documented in an alternate sectionGoals may be documented in an alternate section Source Comments (unrecognize d section and content) In the event this informatio n is protected by the Federal Confidentiality of Alcohol and Drug Abuse Patient Records regulations: The Federal rules restrict any use of the information to criminally investigate or prosecute any alcohol or drug abuse patient.[facility] the event this information is protected by the Federal Confidentiality of Alcohol and Drug Abuse Patient Records regulations: The Federal rules restrict any use of the information to criminally investigate or prosecute any alcohol or drug abuse patient.[facility] the event this information is protected by the Federal Confidentiality of Alcohol and Drug Abuse Patient Records regulations: The Federal rules restrict any use of the information to criminally investigate or prosecute any alcohol or drug abuse patient.[facility] the event this information is protected by the Federal Confidentiality of Alcohol and Drug Abuse Patient Records regulations: The Federal rules restrict any use of the information to criminally investigate or prosecute any alcohol or drug abuse patient.[facility] the event this information is protected by the Federal Confidentiality of Alcohol and Drug Abuse Patient Records regulations: The Federal rules restrict any use of the information to criminally investigate or prosecute any alcohol or drug abuse patient.[facility] Hospital[facility] the event this information is protected by the Federal Confidentiality of Alcohol and Drug Abuse Patient Records regulations: The Federal rules restrict any use of the information to criminally investigate or prosecute any alcohol or drug abuse patient.[facility] HospitalIn the event this information is protected by the Federal Confidentiality of Alcohol and Drug Abuse Patient Records regulations: The Federal rules restrict any use of the information to criminally investigate or prosecute any alcohol or drug abuse patient.[facility] HospitalIn the event this information is protected by the Federal Confidentiality of Alcohol and Drug Abuse Patient Records regulations: The Federal rules restrict any use of the information to criminally investigate or prosecute any alcohol or drug abuse patient.[facility] HospitalIn the event this information is protected by the Federal Confidentiality of Alcohol and Drug Abuse Patient Records regulations: The Federal rules restrict any use of the information to criminally investigate or prosecute any alcohol or drug abuse patient.[facility] HospitalIn the event this information is protected by the Federal Confidentiality of Alcohol and Drug Abuse Patient Records regulations: The Federal rules restrict any use of the information to criminally investigate or prosecute any alcohol or drug abuse patient.[facility] HospitalIn the event this information is protected by the Federal Confidentiality of Alcohol and Drug Abuse Patient Records regulations: The Federal rules restrict any use of the information to criminally investigate or prosecute any alcohol or drug abuse patient.[facility] HospitalIn the event this information is protected by the Federal Confidentiality of Alcohol and Drug Abuse Patient Records regulations: The Federal rules restrict any use of the information to criminally investigate or prosecute any alcohol or drug abuse patient.[facility] HospitalIn the event this information is protected by the Federal Confidentiality of Alcohol and Drug Abuse Patient Records regulations: The Federal rules restrict any use of the information to criminally investigate or prosecute any alcohol or drug abuse patient.[facility] HospitalIn the event this information is protected by the Federal Confidentiality of Alcohol and Drug Abuse Patient Records regulations: The Federal rules restrict any use of the information to criminally investigate or prosecute any alcohol or drug abuse patient.[facility] HospitalIn the event this information is protected by the Federal Confidentiality of Alcohol and Drug Abuse Patient Records regulations: The Federal rules restrict any use of the information to criminally investigate or prosecute any alcohol or drug abuse patient.[facility] HospitalIn the event this information is protected by the Federal Confidentiality of Alcohol and Drug Abuse Patient Records regulations: The Federal rules restrict any use of the information to criminally investigate or prosecute any alcohol or drug abuse patient.[facility] HospitalIn the event this information is protected by the Federal Confidentiality of Alcohol and Drug Abuse Patient Records regulations: The Federal rules restrict any use of the information to criminally investigate or prosecute any alcohol or drug abuse patient.[facility] HospitalIn the event this information is protected by the Federal Confidentiality of Alcohol and Drug Abuse Patient Records regulations: The Federal rules restrict any use of the information to criminally investigate or prosecute any alcohol or drug abuse patient.[facility] HospitalIn the event this information is protected by the Federal Confidentiality of Alcohol and Drug Abuse Patient Records regulations: The Federal rules restrict any use of the information to criminally investigate or prosecute any alcohol or drug abuse patient.[facility] HospitalIn the event this information is protected by the Federal Confidentiality of Alcohol and Drug Abuse Patient Records regulations: The Federal rules restrict any use of the information to criminally investigate or prosecute any alcohol or drug abuse patient.[facility] HospitalIn the event this information is protected by the Federal Confidentiality of Alcohol and Drug Abuse Patient Records regulations: The Federal rules restrict any use of the information to criminally investigate or prosecute any alcohol or drug abuse patient.[facility] HospitalIn the event this information is protected by the Federal Confidentiality of Alcohol and Drug Abuse Patient Records regulations: The Federal rules restrict any use of the information to criminally investigate or prosecute any alcohol or drug abuse patient.[facility] HospitalIn the event this information is protected by the Federal Confidentiality of Alcohol and Drug Abuse Patient Records regulations: The Federal rules restrict any use of the information to criminally investigate or prosecute any alcohol or drug abuse patient.[facility] HospitalIn the event this information is protected by the Federal Confidentiality of Alcohol and Drug Abuse Patient Records regulations: The Federal rules restrict any use of the information to criminally investigate or prosecute any alcohol or drug abuse patient.[facility] HospitalIn the event this information is protected by the Federal Confidentiality of Alcohol and Drug Abuse Patient Records regulations: The Federal rules restrict any use of the information to criminally investigate or prosecute any alcohol or drug abuse patient.[facility] HospitalIn the event this information is protected by the Federal Confidentiality of Alcohol and Drug Abuse Patient Records regulations: The Federal rules restrict any use of the information to criminally investigate or prosecute any alcohol or drug abuse patient.[facility] HospitalIn the event this information is protected by the Federal Confidentiality of Alcohol and Drug Abuse Patient Records regulations: The Federal rules restrict any use of the information to criminally investigate or prosecute any alcohol or drug abuse patient.[facility] HospitalIn the event this information is protected by the Federal Confidentiality of Alcohol and Drug Abuse Patient Records regulations: The Federal rules restrict any use of the information to criminally investigate or prosecute any alcohol or drug abuse patient.[facility] HospitalIn the event this information is protected by the Federal Confidentiality of Alcohol and Drug Abuse Patient Records regulations: The Federal rules restrict any use of the information to criminally investigate or prosecute any alcohol or drug abuse patient.[facility] HospitalIn the event this information is protected by the Federal Confidentiality of Alcohol and Drug Abuse Patient Records regulations: The Federal rules restrict any use of the information to criminally investigate or prosecute any alcohol or drug abuse patient.[facility] HospitalIn the event this information is protected by the Federal Confidentiality of Alcohol and Drug Abuse Patient Records regulations: The Federal rules restrict any use of the information to criminally investigate or prosecute any alcohol or drug abuse patient.[facility] HospitalIn the event this information is protected by the Federal Confidentiality of Alcohol and Drug Abuse Patient Records regulations: The Federal rules restrict any use of the information to criminally investigate or prosecute any alcohol or drug abuse patient.[facility] HospitalIn the event this information is protected by the Federal Confidentiality of Alcohol and Drug Abuse Patient Records regulations: The Federal rules restrict any use of the information to criminally investigate or prosecute any alcohol or drug abuse patient.[facility] HospitalIn the event this information is protected by the Federal Confidentiality of Alcohol and Drug Abuse Patient Records regulations: The Federal rules restrict any use of the information to criminally investigate or prosecute any alcohol or drug abuse patient.[facility] HospitalIn the event this information is protected by the Federal Confidentiality of Alcohol and Drug Abuse Patient Records regulations: The Federal rules restrict any use of the information to criminally investigate or prosecute any alcohol or drug abuse patient.[facility] HospitalIn the event this information is protected by the Federal Confidentiality of Alcohol and Drug Abuse Patient Records regulations: The Federal rules restrict any use of the information to criminally investigate or prosecute any alcohol or drug abuse patient.[facility] HospitalIn the event this information is protected by the Federal Confidentiality of Alcohol and Drug Abuse Patient Records regulations: The Federal rules restrict any use of the information to criminally investigate or prosecute any alcohol or drug abuse patient.[facility] HospitalIn the event this information is protected by the Federal Confidentiality of Alcohol and Drug Abuse Patient Records regulations: The Federal rules restrict any use of the information to criminally investigate or prosecute any alcohol or drug abuse patient.[facility] HospitalIn the event this information is protected by the Federal Confidentiality of Alcohol and Drug Abuse Patient Records regulations: The Federal rules restrict any use of the information to criminally investigate or prosecute any alcohol or drug abuse patient.[facility] HospitalIn the event this information is protected by the Federal Confidentiality of Alcohol and Drug Abuse Patient Records regulations: The Federal rules restrict any use of the information to criminally investigate or prosecute any alcohol or drug abuse patient.[facility] HospitalIn the event this information is protected by the Federal Confidentiality of Alcohol and Drug Abuse Patient Records regulations: The Federal rules restrict any use of the information to criminally investigate or prosecute any alcohol or drug abuse patient.[facility] HospitalIn the event this information is protected by the Federal Confidentiality of Alcohol and Drug Abuse Patient Records regulations: The Federal rules restrict any use of the information to criminally investigate or prosecute any alcohol or drug abuse patient.[facility] HospitalIn the event this information is protected by the Federal Confidentiality of Alcohol and Drug Abuse Patient Records regulations: The Federal rules restrict any use of the information to criminally investigate or prosecute any alcohol or drug abuse patient.[facility] HospitalIn the event this information is protected by the Federal Confidentiality of Alcohol and Drug Abuse Patient Records regulations: The Federal rules restrict any use of the information to criminally investigate or prosecute any alcohol or drug abuse patient.[facility] HospitalIn the event this information is protected by the Federal Confidentiality of Alcohol and Drug Abuse Patient Records regulations: The Federal rules restrict any use of the information to criminally investigate or prosecute any alcohol or drug abuse patient.[facility] HospitalIn the event this information is protected by the Federal Confidentiality of Alcohol and Drug Abuse Patient Records regulations: The Federal rules restrict any use of the information to criminally investigate or prosecute any alcohol or drug abuse patient.[facility] HospitalIn the event this information is protected by the Federal Confidentiality of Alcohol and Drug Abuse Patient Records regulations: The Federal rules restrict any use of the information to criminally investigate or prosecute any alcohol or drug abuse patient.[facility] HospitalIn the event this information is protected by the Federal Confidentiality of Alcohol and Drug Abuse Patient Records regulations: The Federal rules restrict any use of the information to criminally investigate or prosecute any alcohol or drug abuse patient.[facility] HospitalIn the event this information is protected by the Federal Confidentiality of Alcohol and Drug Abuse Patient Records regulations: The Federal rules restrict any use of the information to criminally investigate or prosecute any alcohol or drug abuse patient.[facility] HospitalIn the event this information is protected by the Federal Confidentiality of Alcohol and Drug Abuse Patient Records regulations: The Federal rules restrict any use of the information to criminally investigate or prosecute any alcohol or drug abuse patient.[facility] HospitalIn the event this information is protected by the Federal Confidentiality of Alcohol and Drug Abuse Patient Records regulations: The Federal rules restrict any use of the information to criminally investigate or prosecute any alcohol or drug abuse patient.[facility] HospitalIn the event this information is protected by the Federal Confidentiality of Alcohol and Drug Abuse Patient Records regulations: The Federal rules restrict any use of the information to criminally investigate or prosecute any alcohol or drug abuse patient.[facility] HospitalIn the event this information is protected by the Federal Confidentiality of Alcohol and Drug Abuse Patient Records regulations: The Federal rules restrict any use of the information to criminally investigate or prosecute any alcohol or drug abuse patient.[facility] HospitalIn the event this information is protected by the Federal Confidentiality of Alcohol and Drug Abuse Patient Records regulations: The Federal rules restrict any use of the information to criminally investigate or prosecute any alcohol or drug abuse patient.[facility] HospitalIn the event this information is protected by the Federal Confidentiality of Alcohol and Drug Abuse Patient Records regulations: The Federal rules restrict any use of the information to criminally investigate or prosecute any alcohol or drug abuse patient.[facility] HospitalIn the event this information is protected by the Federal Confidentiality of Alcohol and Drug Abuse Patient Records regulations: The Federal rules restrict any use of the information to criminally investigate or prosecute any alcohol or drug abuse patient.[facility] HospitalIn the event this information is protected by the Federal Confidentiality of Alcohol and Drug Abuse Patient Records regulations: The Federal rules restrict any use of the information to criminally investigate or prosecute any alcohol or drug abuse patient.[facility] HospitalIn the event this information is protected by the Federal Confidentiality of Alcohol and Drug Abuse Patient Records regulations: The Federal rules restrict any use of the information to criminally investigate or prosecute any alcohol or drug abuse patient.[facility] HospitalIn the event this information is protected by the Federal Confidentiality of Alcohol and Drug Abuse Patient Records regulations: The Federal rules restrict any use of the information to criminally investigate or prosecute any alcohol or drug abuse patient.[facility] HospitalIn the event this information is protected by the Federal Confidentiality of Alcohol and Drug Abuse Patient Records regulations: The Federal rules restrict any use of the information to criminally investigate or prosecute any alcohol or drug abuse patient.[facility] HospitalIn the event this information is protected by the Federal Confidentiality of Alcohol and Drug Abuse Patient Records regulations: The Federal rules restrict any use of the information to criminally investigate or prosecute any alcohol or drug abuse patient.[facility] HospitalIn the event this information is protected by the Federal Confidentiality of Alcohol and Drug Abuse Patient Records regulations: The Federal rules restrict any use of the information to criminally investigate or prosecute any alcohol or drug abuse patient.[facility] HospitalIn the event this information is protected by the Federal Confidentiality of Alcohol and Drug Abuse Patient Records regulations: The Federal rules restrict any use of the information to criminally investigate or prosecute any alcohol or drug abuse patient.[facility] HospitalIn the event this information is protected by the Federal Confidentiality of Alcohol and Drug Abuse Patient Records regulations: The Federal rules restrict any use of the information to criminally investigate or prosecute any alcohol or drug abuse patient.[facility] HospitalIn the event this information is protected by the Federal Confidentiality of Alcohol and Drug Abuse Patient Records regulations: The Federal rules restrict any use of the information to criminally investigate or prosecute any alcohol or drug abuse patient.[facility] HospitalIn the event this information is protected by the Federal Confidentiality of Alcohol and Drug Abuse Patient Records regulations: The Federal rules restrict any use of the information to criminally investigate or prosecute any alcohol or drug abuse patient.[facility] HospitalIn the event this information is protected by the Federal Confidentiality of Alcohol and Drug Abuse Patient Records regulations: The Federal rules restrict any use of the information to criminally investigate or prosecute any alcohol or drug abuse patient.[facility] HospitalIn the event this information is protected by the Federal Confidentiality of Alcohol and Drug Abuse Patient Records regulations: The Federal rules restrict any use of the information to criminally investigate or prosecute any alcohol or drug abuse patient.[facility] HospitalIn the event this information is protected by the Federal Confidentiality of Alcohol and Drug Abuse Patient Records regulations: The Federal rules restrict any use of the information to criminally investigate or prosecute any alcohol or drug abuse patient.[facility] HospitalIn the event this information is protected by the Federal Confidentiality of Alcohol and Drug Abuse Patient Records regulations: The Federal rules restrict any use of the information to criminally investigate or prosecute any alcohol or drug abuse patient.[facility] HospitalIn the event this information is protected by the Federal Confidentiality of Alcohol and Drug Abuse Patient Records regulations: The Federal rules restrict any use of the information to criminally investigate or prosecute any alcohol or drug abuse patient.[facility] HospitalIn the event this information is protected by the Federal Confidentiality of Alcohol and Drug Abuse Patient Records regulations: The Federal rules restrict any use of the information to criminally investigate or prosecute any alcohol or drug abuse patient.[facility] HospitalIn the event this information is protected by the Federal Confidentiality of Alcohol and Drug Abuse Patient Records regulations: The Federal rules restrict any use of the information to criminally investigate or prosecute any alcohol or drug abuse patient.[facility] Reason for Visit (unrecogniz ed section and content) Reason Comments Established Patient Specialty Diagnoses / Procedures Referred By Zack t Referred To Contact Diagnoses Malignant neoplasm of prostate (HCC) Bone metastases Procedures LEUPROLIDE ACETATE SUSPNSION Bree Cornejo, SUSHIL.C[employer] MILL INSPECTOR [address] [place] [address] [facility] [address] [place] [address] Referral ID Status Reason Start Date Expiration Date V isits Requested Visits Authorized [id number] Authorized 04/27/2022 06/21/2024 99 99 Reason Comments Request Outside Medical Records Reason Comments Follow Up Reason Comments results of body scan Reason Onset Date Comments SPP Oral Oncology/hematology - Treatment Referra l 10/08/2021 [facility] Insurance Authorization 10/08/2021 Pending PA Reason Comments New Patient Reason Comments Results Medication Problem Reason Comments Medication Problem Reason Comments Benefits Investigation Reason Comments Care Coordination ORAL ANTI-CANCER AGE NTS FOLLOW-UP PHONE CALL Reason Comments Non-Chemotherapy Treatment Specialty Diagnoses / Procedures Referred By [facility] Referred To Contact Diagnoses Malignant neoplasm of prostate (HCC) Bone metastases (HCC) Procedures INJECTION, ZOLEDRONIC ACID, 1 MG Aparna Becerra MD [address] [place] [address] [facility] [address] [place] [address] Referral ID Status Reason Start Date Expiration Date V isits Requested Visits Authorized [id number] Authorized 10/08/2021 03/19/2022 99 99 Reason Comments Patient Question Reason Onset Date Comments SPP Oral Oncology/hematology - Medication Refill 11/03/2021 Erleada 60mg Reason Comments Refill Request Reason Onset Date Comments SPP Oral Oncology/hematology - Medication Refill 12/07/2021 Er[facility] Reason Comments Release Of Medical Records Reason Onset Date Comments SPP Oral Oncology/hematology - Medication Refill 01/10/2022 Erleada Reason Onset Date Comments SPP Oral Oncology/hematology - Medication Refill 02/04/2022 Erle[facility] Reason Onset Date Comments SPP Oral Oncology/hematology - Medication Refill 03/08/2022 Erleada 60mg Reason Onset Date Comments SPP Oral Oncology/hematology - Medication Refill 04/06/2022 Erleada 6-mg Referral ID Status Reason Start Date Expiration Date V isits Requested Visits Authorized [id number] Authorized 10/08/2021 03/19/2023 99 99 Reason Comments Results Reason Onset Date Comments SPP Oral Oncology/hematology - Medication Refill 04/28/2022 Erleada 60mg Reason Comments Imm/Inj Specialty Diagnoses / [facility] To Contact Diagnoses Malignant neoplasm of prostate (HCC) Bone metastases (HCC) Procedures LEUPROLIDE ACETATE SUSPNSION Bree Cornejo APRN.C[employer] M[employer] INSPECTOR [address] [place] [address] [facility] [address] [place] [address] Referral ID Status Reason Start Date Expiration Date V isits Requested Visits Authorized [id number] Authorized 04/27/2022 10/26/2022 99 99 Specialty Diagnoses / Procedures Referred By [facility] Referred To Contact Diagnoses Malignant neoplasm of prostate (HCC) Bone metastases (HCC) Procedures INJECTION, ZOLEDRONIC ACID, 1 MG Cornejo, [place], BANK COMPLIANCE OFFICER.[employer] INSPECTOR [address] [place] [address] [facility] [address] [place] [address] Referral ID Status Reason Start Date Expiration Date V isits Requested Visits Authorized [id number] Authorized 04/27/2022 03/19/2023 99 99 Reason Onset Date Comments SPP Oral Oncology/hematology - Medication Refill 06/13/2022 Erleada Reason Comments Patient Update Symptoms Reason Comments Patient Update Weakness Reason Comments Care Coordination patient update-weakn ess Reason Comments Orders Specialty Diagnoses / Procedures Referred By [facility] Referred To Contact Diagnoses Malignant neoplasm of prostate (HCC) Bone metastases Procedures INJECTION, ZOLEDRONIC ACID, 1 MG Cornejo, [place], BANK COMPLIANCE OFFICER.[employer] M[employer] INSPECTOR [address] [place] [address] [facility] [address] [place] [address] Referral ID Status Reason Start Date Expiration Date V isits Requested Visits Authorized [id number] Authorized 04/27/2022 04/25/2023 99 99 Reason Comments Appointment Reason Onset Date Comments Refill Request 01/30/2023 Reason Comments medication questions Referral ID Status Reason Start Date Expiration Date V isits Requested Visits Authorized [id number] Authorized 04/27/2022 03/19/2024 99 99 Reason Comments Prostate Cancer Follow Up Urinary Urgency Referral ID Status Reason Start Date Expiration Date V isits Requested Visits Authorized [id number] Authorized 04/27/2022 03/19/2025 99 99 Reason Comments 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 Reason Comments New Patient C/o loss of balance, weakness, falling, has done PT, pt states it's more of his knees that are weak Specialty Diagnoses / Procedures Referred By Contac t Referred To Contact Neurology Diagnoses Loss of balance Procedures CONSULT TO NEUROLOGY OFFICE/OUTPATIENT NEW HIGH MDM 60 [place] [address] [place] [address] Phone: tel: fax: Referral ID Status Reason Start Date Expiration Date V isits Requested Visits Authorized [id number] Closed PCP Requested Referral 03/05/2024 03/05/2025 1 1 Reason Comments Chemotherapy Treatment Specialty Diagnoses / Procedures Referred By Contac t Referred To Contact Diagnoses Malignant neoplasm of prostate (HCC) Bone metastases Procedures INJECTION, ZOLEDRONIC ACID, 1 MG Bree Cornejo APRN.COLD MILL INSPECTOR [address] [place] [address] Phone: tel: fax: Hematology/Oncology [address] [place] [address] Phone: tel: fax: Reason Comments New Patient Recurrent falls Referral ID Status Reason Start Date Expiration Date Visits Re quested Visits Authorized [id number] Closed 04/27/2022 03/19/2025 99 99 Care Teams (unrecognized sec tion and content) Team Status: Active Member Role Status Dates Dr. Otto Subramanian MD Primary Care Provider Active Team Status: Inactive Member Role Status Dates Dr. Otto Subramanian MD Primary Care Provider Active Start: May 23, 2024 End: May 23, 2024 Dr. Otto Subramanian MD Attending Provider Active St art: May 23, 2024 End: May 23, 2024 Team Status: Inactive Member Role Status Dates Dr. Otto Subramanian MD Primary Care Provider Active Start: June 27, 2024 End: June 27, 2024 Dr. Otto Subramanian MD Referring Provider Active St art: June 27, 2024 End: June 27, 2024 Damaris SALAZAR, PA Attending Provider Active Start: June 27, 2024 End: June 27, 2024 Team Status: Inactive Member Role Status Dates Dr. Otto Subramanian MD Primary Care Provider Active Start: June 27, 2024 End: June 27, 2024 MARIE Martinez Attending Provider Active Start: June 27, 2024 End: June 27, 2024 Damaris SALAZAR PA Referring Provider Active Start: June 27, 2024 End: June 27, 2024 Cutter And Edge Trimmer Relationship Specialty Start Date End Date Cem Arzate PCP - General 03/21/02 Cutter And Edge Trimmer Relationship Specialty Start Date End Date Cem Arzate PCP - General 03/21/02 Cutter And Edge Trimmer Relationship Specialty Start Date End Date Cem Arzate PCP - General 03/21/02 Cutter And Edge Trimmer Relationship Specialty Start Date End Date Cem Arzate PCP - General 03/21/02 Cutter And Edge Trimmer Relationship Specialty Start Date End Date Cem Arzate PCP - General 03/21/02 Cutter And Edge Trimmer Relationship Specialty Start Date End Date Cem Arzate PCP - General 03/21/02 Irene Florentino RN [address] [place] [address] Specialty Buffing Wheel Inspector Hematology/Oncology 10/13/21 Cutter And Edge Trimmer Relationship Specialty Start Date End Date Cem Arzate PCP - General 03/21/02 Irene Florentino RN [address] [place] [address] Specialty Buffing Wheel Inspector Hematology/Oncology 10/13/21 Cutter And Edge Trimmer Relationship Specialty Start Date End Date Cem Arzate David PCP - General 03/21/02 Irene Florentino RN [address] [place] [address] Specialty Buffing Wheel Inspector Hematology/Oncology 10/13/21 Cutter And Edge Trimmer Relationship Specialty Start Date End Date Cem Arzate PCP - General 03/21/02 Irene Florentino RN [address] [place] [address] Specialty Buffing Wheel Inspector Hematology/Oncology 10/13/21 Cutter And Edge Trimmer Relationship Specialty Start Date End Date Cem Arzate PCP - General 03/21/02 Irene Florentino, RN [address] [place] [address] Specialty Buffing Wheel Inspector Hematology/Oncology 10/13/21 Cutter And Edge Trimmer Relationship Specialty Start Date End Date Cem Arzate PCP - General 03/21/02 Irene Florentino RN [address] [place] [address] Specialty Buffing Wheel Inspector Hematology/Oncology 10/13/21 Cutter And Edge Trimmer Relationship Specialty Start Date End Date Cem Arzate PCP - General 03/21/02 Irene Florentino RN [address] [place] [address] Specialty Buffing Wheel Inspector Hematology/Oncology 10/13/21 Cutter And Edge Trimmer Relationship Specialty Start Date End Date Cem Arzate PCP - General 03/21/02 Irene Florentino RN [address] [place] [address] Specialty Buffing Wheel Inspector Hematology/Oncology 10/13/21 Cutter And Edge Trimmer Relationship Specialty Start Date End Date Cem Arzate PCP - General 03/21/02 Irene Florentino, MELINDA [address] [place] [address] Specialty Buffing Wheel Inspector Hematology/Oncology 10/13/21 Cutter And Edge Trimmer Relationship Specialty Start Date End Date Cem Arzate PCP - General 03/21/02 Irene Florentino, RN [address] [place] [address] Specialty Buffing Wheel Inspector Hematology/Oncology 10/13/21 Cutter And Edge Trimmer Relationship Specialty Start Date End Date Cem Arzate PCP - General 03/21/02 Irene Florentino, RN [address] [place] [address] Specialty Buffing Wheel Inspector Hematology/Oncology 10/13/21 Cutter And Edge Trimmer Relationship Specialty Start Date End Date Cem Arzate PCP - General 03/21/02 Irene Florentino RN [address] [place] [address] Specialty Buffing Wheel Inspector Hematology/Oncology 10/13/21 Team Status: Active Member Role Status Dates Dr. Otto Subramanian MD Family Provider Active Dr. Otto Subramanian MD Primary Care Provider Active Team Status: Inactive Member Role Status Dates Dr. Otto Subramanian MD Primary Care Provide r, Attending Provider, Referring Provider Active Cutter And Edge Trimmer Relationship Specialty Start Date End Date Cem Arzate PCP - General 03/21/02 Irene Florentino RN [address] [place] [address] Specialty Buffing Wheel Inspector Hematology/Oncology 10/13/21 Cutter And Edge Trimmer Relationship Specialty Start Date End Date Cem Arzate PCP - General 03/21/02 Irene Florentino RN [address] [place] [address] Specialty Buffing Wheel Inspector Hematology/Oncology 10/13/21 Cutter And Edge Trimmer Relationship Specialty Start Date End Date Cem Arzate PCP - General 03/21/02 Irene Florentino, RN [address] [place] [address] Specialty Buffing Wheel Inspector Hematology/Oncology 10/13/21 Cutter And Edge Trimmer Relationship Specialty Start Date End Date Cem Arzate PCP - General 03/21/02 Irene Florentino RN [address] [place] [address] Specialty Buffing Wheel Inspector Hematology/Oncology 10/13/21 Team Status: Inactive Member Role Status Dates Dr. Otto Subramanian MD Primary Care Provider Active Dr. Quincy Staton MD Emergency Provider Active Cutter And Edge Trimmer Relationship Specialty Start Date End Date Cem Arzate PCP - General 03/21/02 Irene Florentino RN [address] [place] [address] Specialty Buffing Wheel Inspector Hematology/Oncology 10/13/21 Cutter And Edge Trimmer Relationship Specialty Start Date End Date Cem Arzate PCP - General 03/21/02 Irene Florentino, RN [address] [place] [address] Specialty Buffing Wheel Inspector Hematology/Oncology 10/13/21 Cutter And Edge Trimmer Relationship Specialty Start Date End Date Cem Arzate PCP - General 03/21/02 Irene Florentino, RN [address] [place] [address] Specialty Buffing Wheel Inspector Hematology/Oncology 10/13/21 Team Status: Inactive Member Role Status Dates Dr. Otto Subramanian MD Primary Care Provider Active Dr. Quincy Staton MD Attending Provider, Emergency Pro vider Active Team Status: Inactive Member Role Status Dates Dr. Otto Subramanian MD Primary Care Provider, Attending Norm neumann Active Damaris Lee PA, PA Other Provider Active Randy Vann MANUFACTURING MAINTENANCE TECHNICIAN, MANUFACTURING MAINTENANCE TECHNICIAN-C Other Provider Active Dr. Denilson Fernandes , Other Provider Active Cutter And Edge Trimmer Relationship Specialty Start Date End Date Cem Arzate PCP - General 03/21/02 Irene Florentino RN [address] [place] [address] Specialty Buffing Wheel Inspector Hematology/Oncology 10/13/21 Cutter And Edge Trimmer Relationship Specialty Start Date End Date Cem Arzate PCP - General 03/21/02 Irene Florentino RN [address] [place] [address] Specialty Buffing Wheel Inspector Hematology/Oncology 10/13/21 Team Status: Inactive Member Role Status Dates Dr. Otto Subramanian MD Primary Care Provider Active Dr. Marcos Ferraro , Emergency Provider Active Team Status: Inactive Member Role Status Dates Dr. Otto Subramanian MD Primary Care Provider Active Dr. Alex Zuñiga , DO Emergency Provider Active Cutter And Edge Trimmer Relationship Specialty Start Date End Date Cem Arzate PCP - General 03/21/02 Irene Florentino RN [address] [place] [address] Specialty Buffing Wheel Inspector Hematology/Oncology 10/13/21 Cutter And Edge Trimmer Relationship Specialty Start Date End Date Cem Arzate PCP - General 03/21/02 Irene Florentino RN [address] [place] [address] Specialty Buffing Wheel Inspector Hematology/Oncology 10/13/21 Cutter And Edge Trimmer Relationship Specialty Start Date End Date Cem Arzate PCP - General 03/21/02 Irene Florentino RN [address] [place] [address] Specialty Buffing Wheel Inspector Hematology/Oncology 10/13/21 Everett Aldrich MD [address] [place] [address] Hematology/Oncology 10/24/22 Cutter And Edge Trimmer Relationship Specialty Start Date End Date Cem Arzate David PCP - General 03/21/02 Irene Florentino RN [address] [place] [address] Specialty Buffing Wheel Inspector Hematology/Oncology 10/13/21 Everett Aldrich MD [address] [place] [address] Hematology/Oncology 10/24/22 Cutter And Edge Trimmer Relationship Specialty Start Date End Date Otto Subramanian MD [address] [place] [address] PCP - General Family Medicine 01/12/23 Irene Florentino RN [address] [place] [address] Specialty Buffing Wheel Inspector Hematology/Oncology 10/13/21 Everett Aldrich MD [address] [place] [address] Hematology/Oncology 10/24/22 Cutter And Edge Trimmer Relationship Specialty Start Date End Date Otto Subramanian MD [address] [place] [address] PCP - General Family Medicine 01/12/23 Irene Florentino, MELINDA [address] [place] [address] Specialty Buffing Wheel Inspector Hematology/Oncology 10/13/21 Everett Aldrich MD [address] [place] [address] Hematology/Oncology 10/24/22 Cutter And Edge Trimmer Relationship Specialty Start Date End Date Otto Subramanian MD [address] [place] [address] PCP - General Family Medicine 01/12/23 Irene Florentino, MELINDA [address] [place] [address] Specialty Buffing Wheel Inspector Hematology/Oncology 10/13/21 Everett Aldrich MD [address] [place] [address] Hematology/Oncology 10/24/22 Team Status: Inactive Member Role Status Dates Dr. Otto Subramanian MD Primary Care Provider, Referring P nel Active Riri Peralta MANUFACTURING MAINTENANCE TECHNICIAN, MANUFACTURING MAINTENANCE TECHNICIAN-C Attending Provider Active Team Status: Active Member Role Status Dates Dr. Otto Subramanian MD Primary Care Provider Active Dr. Osman Bui MD Attending Provider Active Team Status: Active Member Role Status Dates Dr. Otto Subramanian MD Primary Care Provider Active Riri Peralta MANUFACTURING MAINTENANCE TECHNICIAN, MANUFACTURING MAINTENANCE TECHNICIAN-C Attending Provider Active Team Status: Inactive Member Role Status Dates Dr. Otto Subramanian MD Primary Care Provider Active Riri Peralta MANUFACTURING MAINTENANCE TECHNICIAN, MANUFACTURING MAINTENANCE TECHNICIAN-C Attending Provider, Referring Norm neumann Active Team Status: Active Member Role Status Dates Dr. Otto Subramanian MD Primary Care Provider Active Dr. Marquise Hart MD Attending Provider Active Riri Peralta MANUFACTURING MAINTENANCE TECHNICIAN, MANUFACTURING MAINTENANCE TECHNICIAN-C Referring Provider Active Cutter And Edge Trimmer Relationship Specialty Start Date End Date Otto Subramanian MD [address] [place] [address] PCP - General Family Medicine 01/12/23 Irene Florentino RN [address] [place] [address] Specialty Buffing Wheel Inspector Hematology/Oncology 10/13/21 Everett Aldrich MD [address] [place] [address] Hematology/Oncology 10/24/22 Cutter And Edge Trimmer Relationship Specialty Start Date End Date Otto Subramanian MD [address] [place] [address] PCP - General Family Medicine 01/12/23 Irene Florentino RN [address] [place] [address] Specialty Buffing Wheel Inspector Hematology/Oncology 10/13/21 Everett Aldrich MD [address] [place] [address] Hematology/Oncology 10/24/22 Cutter And Edge Trimmer Relationship Specialty Start Date End Date Otto Subramanian MD [address] [place] [address] PCP - General Family Medicine 01/12/23 Irene Florentino, MELINDA [address] [place] [address] Specialty Buffing Wheel Inspector Hematology/Oncology 10/13/21 Everett Aldrich MD [address] [place] [address] Hematology/Oncology 10/24/22 Cutter And Edge Trimmer Relationship Specialty Start Date End Date Otto Subramanian MD [address] [facility] [address] [place] [address] PCP - General Family Medicine 01/12/23 Irene Florentino RN [address] [place] [address] Specialty Buffing Wheel Inspector Hematology/Oncology 10/13/21 Everett Aldrich MD [address] [place] [address] Hematology/Oncology 10/24/22 Cutter And Edge Trimmer Relationship Specialty Start Date End Date Otto Subramanian MD [address] [facility] [address] [place] [address] PCP - General Family Medicine 01/12/23 Irene Florentino RN [address] [place] [address] Specialty Buffing Wheel Inspector Hematology/Oncology 10/13/21 Everett Aldrich MD [address] [place] [address] Hematology/Oncology 10/24/22 Cutter And Edge Trimmer Relationship Specialty Start Date End Date Otto Subramanian MD [address] [place] [address] PCP - General Family Medicine 01/12/23 Irene Florentino, RN [address] [place] [address] Specialty Buffing Wheel Inspector Hematology/Oncology 10/13/21 Everett Aldrich MD [address] [place] [address] Hematology/Oncology 10/24/22 Cutter And Edge Trimmer Relationship Specialty Start Date End Date Otto Subramanian MD [address] [place] [address] PCP - General Family Medicine 01/12/23 Irene Florentino RN [address] [place] [address] Specialty Buffing Wheel Inspector Hematology/Oncology 10/13/21 Everett Aldrich MD [address] [place] [address] Hematology/Oncology 10/24/22 Cutter And Edge Trimmer Relationship Specialty Start Date End Date Otto Subramanian MD [address] [place] [address] PCP - General Family Medicine 01/12/23 Irene Florentino, RN [address] [place] [address] Specialty Buffing Wheel Inspector Hematology/Oncology 10/13/21 Everett Aldrich MD [address] [place] [address] Hematology/Oncology 10/24/22 Cutter And Edge Trimmer Relationship Specialty Start Date End Date Otto Subramanian MD [address] [place] [address] PCP - General Family Medicine 01/12/23 Irene Florentino, MELINDA [address] [place] [address] Specialty Buffing Wheel Inspector Hematology/Oncology 10/13/21 Everett Aldrich MD [address] [place] [address] Hematology/Oncology 10/24/22 Cutter And Edge Trimmer Relationship Specialty Start Date End Date Otto Subramanian MD [address] [place] [address] PCP - General Family Medicine 01/12/23 Irene Florentino RN [address] [place] [address] Specialty Buffing Wheel Inspector Hematology/Oncology 10/13/21 Everett Aldrich MD [address] [place] [address] Hematology/Oncology 10/24/22 Cutter And Edge Trimmer Relationship Specialty Start Date End Date Otto Subramanian MD [address] [place] [address] PCP - General Family Medicine 01/12/23 Irene Florentino RN [address] [place] [address] Specialty Buffing Wheel Inspector Hematology/Oncology 10/13/21 Everett Aldrich MD [address] [place] [address] Hematology/Oncology 10/24/22 Cutter And Edge Trimmer Relationship Specialty Start Date End Date Otto Subramanian MD [address] [place] [address] PCP - General Family Medicine 01/12/23 Irene Florentino RN [address] [place] [address] Specialty Buffing Wheel Inspector Hematology/Oncology 10/13/21 Everett Aldrich MD [address] [place] [address] Hematology/Oncology 10/24/22 Cutter And Edge Trimmer Relationship Specialty Start Date End Date Otto Subramanian MD [address] [place] [address] PCP - General Family Medicine 01/12/23 Irene Florentino, MELINDA [address] [place] [address] Specialty Buffing Wheel Inspector Hematology/Oncology 10/13/21 Everett Aldrich MD [address] [place] [address] Hematology/Oncology 10/24/22 Team Status: Active Member Role Status Dates Dr. Otto Subramanian MD Primary Care Provider Active Start: May 23, 2024 Dr. Otto Subramanian MD Attending Provider Active St art: May 23, 2024 Cutter And Edge Trimmer Relationship Specialty Start Date End Date Otto Subramanian MD [address] [place] [address] PCP - General Family Medicine 01/12/23 Irene Florentino, RN [address] [place], [place] [address] Specialty Buffing Wheel Inspector Hematology/Oncology 10/13/21 Everett Aldrich MD [address] [place] [address] Hematology/Oncology 10/24/22 Inactive Administered Medications - up to 3 most recent administrations Administered Medications (un recognized section and content) Medication Order MAR Action Action Date Dose Rate Site leuprolide 22.5 mg subcutaneous syringe (ELIGARD) 22.5 mg, SUBCUTANEOUS, ONCE, 1 dose, On Mon06/27/23 at 1130, Hazardous Chemotherapy Drug: Use appropriate PPE. Given 06/27/2023 12:00 PM EDT 22.5 mg Abdomen, LLQ zoledronic acid 3.3 mg in NaCl 0.9% 100 mL (ZOMETA) 3.3 mg, INTRAVENOUS, Administer over 15 Minutes, ONCE, 1 dose, On Mon06/27/23 at 1200, Hazardous Potential Reproductive Risk Drug: Use appropriate PPE. Refrigerate. New Bag/Syringe/Bottle 06/27/2023 11:49 AM EDT 3.3 mg (unrecognized sect ion and content) No Status Records FoundNo Status Records Found INFORMATION SOURCE (unrecogn ized section and content) DATE CREATED AUTHOR 08/22/2024 [facility] DATE CREATED AUTHOR AUTHOR'S ORGANIZ ATION 09/10/2024 [facility] FOR RECORDS PERTAINING TO PATIENTS WHO ARE OR HAVE BEEN ENROLLED IN A CHEMICAL DEPENDENCY/SUBSTANCEABUSE PROGRAM, SOME INFORMATION MAY BE OMITTED. This clinical summary was aggregated from multiple sources. Caution should be exercised in using it in the provision of clinical care. This summary normalizes information from multiple sources, and as a consequence, information in this document may materially change the coding, format and clinical context of patient data. In addition, data may be omitted in some cases. CLINICAL DECISIONS SHOULD BE BASED ON THE PRIMARY CLINICAL RECORDS. [employer] provides no warranty or guarantee of the accuracy or completeness of information in this document.
--- NOTE | 2024-09-12 15:20 | STRESSREP ---
Stress Test Report Pharmacologic myocardial perfusion stress test. 89-year-old man with a history of coronary artery disease Resting EKG demonstrates normal sinus rhythm with a rate of 66 bpm. Resting blood pressure is 148/70 mmHg. 0.4 mg of regadenoson was infused per usual protocol followed by rapid intravenous saline flush injection. Continuous EKG monitoring was performed. The maximum heart rate was 97 bpm which was 73% of max impacted heart rate the maximum workload was 1 metabolic equivalent. At rest there were no ST or T wave changes noted to suggest ischemia and at peak infusion nonspecific ST changes were noted which did not meet the criteria for ischemia. No clinical angina is noted. The final blood pressure was 130/64 mmHg. Myocardial perfusion protocol. 14.8 mCi of technetium 99m sestamibi was injected at rest. 0.4 mg of regadenoson was infused per usual protocol. At peak infusion 44.9 mCi of technetium 99m sestamibi was injected stress images were obtained stress and rest images were reconstructed and compared in the short axis vertical long and horizontal long axis. Gated images were also obtained. Perfusion SPECT analysis: Review of the stress images demonstrate normal uptake of tracer noted in all areas of the myocardium. The resting images similar demonstrated normal uptake of tracer noted in all areas of the myocardium. No areas of reversibility are noted to suggest ischemia and no previous infarct is noted. Gated SPECT analysis: The gated ejection fraction is 67%. Conclusion: Normal pharmacologic myocardial perfusion stress test. Preserved ejection fraction.
== END | disposition home or self-care (01) ==
PROVIDERS: PCP Family Medicine; Referring Provider Physician Assistant Medical; Visit Provider Physician Assistant Medical
DX: Z01.810 Encounter for preprocedural cardiovascular examination (principal); I25.10 Atherosclerotic heart disease of native coronary artery without angina pectoris; Z95.5 Presence of coronary angioplasty implant and graft
CPT/HCPCS: 78452; 93017; A9500; A4216; J2785

== ENCOUNTER → 2024-09-16 | Outpatient (CLI) | payer MEDICARE, SELFPAY ==
--- NOTE | 2024-09-16 14:02 | ECHOCS_ITS ---
Reason For Study Reason For Study: Murmur Procedure This was a 2D Doppler, Color Flow transthoracic echocardiogram. The study was technically difficult. Contrast injection was performed. Exam performed in department. Left Ventricle Normal LV size. Mild concentric left ventricular hypertrophy. Left ventricular systolic function is normal. The left ventricular ejection fraction is 65 %. No regional wall motion abnormalities noted. Right Ventricle Normal RV size. Normal systolic function. Atria Normal left atrium. Normal right atrium. Mitral Valve Normal mitral valve. Tricuspid Valve Normal tricuspid valve. Aortic Valve Trisinus/trileaflet aortic valve. Moderate focal aortic valve calcification. Peak aortic valve gradient 79 mmHg. Mean aortic valve gradient 45 mmHg. Severe aortic stenosis. Pulmonic Valve Normal pulmonic valve. Great Vessels Normal aortic root. The pulmonary artery is normal size. Pericardium/Pleural No pericardial effusion. Medication 22 gauge I.V. with prn adaptor inserted into right arm. Diluted definity 1ml given slow IV push to enhance endocardial definition. MMode/2D Measurements & Calculations LVIDd: 4.5 cm IVSd: 1.4 cm LVOT diam: 2.2 cm LVIDs: 2.5 cm LVPWd: 1.3 cm FS: 45.2 % LVOT area: 3.8 cm2 Ao root diam: 3.6 cm LAV(MOD-bp): 55.5 ml LVAd ap4: 40.0 cm2 LA dimension: 4.0 cm LAV(MOD-bp) Indexed: 28.3 ml/m2 LVLd ap4: 8.9 cm LAV(MOD-sp2): 52.7 ml EDV(MOD-sp4): 148.3 ml LAV(MOD-sp4): 47.7 ml EDV(sp4-el): 152.7 ml LVAs ap4: 20.1 cm2 LVLs ap4: 6.9 cm ESV(MOD-sp4): 50.6 ml ESV(sp4-el): 49.8 ml EF(MOD-sp4): 65.9 % EF(sp4-el): 67.4 % SV(MOD-sp4): 97.8 ml SV(sp4-el): 102.9 ml LA A4 area: 19.4 cm2 SI(MOD-sp4): 49.8 ml/m2 TAPSE: 1.8 cm Time Measurements MV dec time: 0.22 sec Doppler Measurements & Calculations MV E max raheem: 71.7 cm/sec Lat Peak E' Raheem: 6.6 cm/sec Med Peak E' Raheem: 9.1 cm/sec MV A max raheem: 93.3 cm/sec E/E' lat: 10.9 E/E' med: 7.8 MV E/A: 0.77 MV V2 max: 101.4 cm/sec MV P1/2t max raheem: 87.4 cm/sec Ao V2 max: 443.3 cm/sec MV max P.1 mmHg MV P1/2t: 79.0 msec Ao max P.2 mmHg MV V2 mean: 48.6 cm/sec Ao V2 mean: 315.2 cm/sec MV mean P.2 mmHg MV dec slope: 323.7 cm/sec2 Ao mean P.3 mmHg MV V2 VTI: 24.7 cm MVA(P1/2t): 2.8 cm2 Ao V2 VTI: 104.1 cm AV (velocity ratio): 0.17 MVA(VTI): 2.7 cm2 BRYAN(I,D): 0.65 cm2 BRYAN(V,D): 0.53 cm2 LV V1 max: 61.5 cm/sec SV(LVOT): 67.6 ml LV V1 max P.5 mmHg LV V1 mean P.81 mmHg LV V1 mean: 42.1 cm/sec LV V1 VTI: 17.6 cm ECHO/Echo Complete W/ Contrast Interpretation Summary Normal LV size. Left ventricular systolic function is normal. The left ventricular ejection fraction is 65 %. Mild concentric left ventricular hypertrophy. Moderate focal aortic valve calcification. Mean aortic valve gradient 45 mmHg. Severe aortic stenosis. Compared to the previous the gradient has increased. Contrast injection was per formed. Ordering Physician: Damaris Lee Referring Physician: Damaris Lee Performed By: Dariel Baig and Student
== END | disposition home or self-care (01) ==
LOC: CVS 13:58
PROVIDERS: PCP Family Medicine; Referring Provider Physician Assistant Medical; Visit Provider Physician Assistant Medical
DX: I35.0 Nonrheumatic aortic (valve) stenosis (principal); R01.1 Cardiac murmur, unspecified
CPT/HCPCS: 93306; Q9957; A4216; C8929

== ENCOUNTER 2024-10-07 06:57 | Day surgery (SDC) | payer MEDICARE, SELFPAY ==
--- NOTE | 2024-09-26 09:04 | RAD_ITS ---
PROCEDURE: CHEST PA AND LATERAL 09/26/2024 REASON FOR EXAM: CARDIAC CATH TECHNIQUE: CHEST PA AND LATERAL COMPARISON: None. FINDINGS: The heart is enlarged. Ill-defined opacities of the bilateral lower lobes which may represent atelectasis or developing infection. The edema is possible. No pleural effusion or pneumothorax. RAD/Chest PA and Lateral IMPRESSION: Pulmonary findings as above. Reading Location: [place] [id number]
[2024-09-26 09:41] LABS: Hematocrit 40.2 % (40-54); Hemoglobin 13.2 g/dL (13.0-16.5); Immature Granulocytes Count 0.070 X10^3/uL (0.0-0.0); Mean Corp Hgb Conc 32.8 g/dL (32-36); Mean Corpuscular Volume 96.4 fL (80-94); Mean Platelet Vol. 10.4 fl (6.2-12.0); NRBC Flagged by Analyzer 0 % (0-5); Platelet Count 248 K/mm3 (150-450); RBC Distribution Width CV 13.2 % (11.6-14.6); RBC Distribution Width SD 46.8 fl (35.1-43.9); Red Blood Count 4.17 M/mm3 (4.6-6.2); White Blood Count 9.1 K/mm3 (4.4-11.0)
[2024-09-26 10:09] LABS: Anion Gap 9 (5-15); BUN 24 mg/dL (4-19); BUN/Creat Ratio 23.4 RATIO (10-20); Calcium,Total 9.1 mg/dL (7.6-11.0); Carbon Dioxide 27.6 mmol/L (21.0-32.0); Chloride 106 mmol/L (98-108); Glucose 108 mg/dL (70-99); Potassium 3.8 mmol/L (3.3-5.1); Pro- Brain NATRIURETIC PEPTIDE 756 pg/mL (<=1800)
[2024-10-04 07:43] VITALS: BMI 27.3
--- OUTSIDE RECORDS SUMMARY | 2024-10-07 07:01 | XMS RPT_ITS | CCD ---
Author Organization [facility]iniSyn[facility] Care Team Providers Care Inspector Balance Wheel Motion Name Role Phone Dr. Otto Subramanian Primary Care Provider Dr. Otto Subramanian Referring Provider Edwar YIP, BOARD CERTIFIED MUSIC THERAPIST-C Randy Coughlin Attending Provider Cem Arzate Primary Care Provider Unavaildeysi Florentino RN, Irene Unavailable Cem Arzate Primary Care Provider Unavaildeysi Florentino RN, Irene Unavailable Cem Arzate Primary Care Provider Unavaildeysi Florentino RN, Irene Unavailable Cem Arzate Primary Care Provider Unavailabl Cem Garcia Primary Care Provider Unavaildeysi Florentino RN, Irene Unavailable Chadd RN, Irene Unavailable Chito MOLINA, [place] Unavailable Otto Subramanian MD Primary Care Provider Otto Subramanian MD Primary Care Provider Dr. Otto Subramanian Primary Care Provider Dr. Otto Subramanian Referring Provider Fabian YIP, BOARD CERTIFIED MUSIC THERAPIST-C Riri Attending Provider Dr. Osman Bui Attending Provider Dr. Marquise Hart Attending Provider Fabian YIP, BOARD CERTIFIED MUSIC THERAPIST-C Riri Referring Provider Otto Subramanian MD Primary Care Provider Dr. Otto Subramanian MD Primary Care Provider Dr. Otto Subramanian MD Attending Provider Dr. Otto Subramanian MD Referring Provider Damaris Eckert Attending Provider [phone] Damaris Eckert Referring Provider [phone] PRANAV TATE Attending Unavailable SUBRAMANIAN, OTTO A [...] Unavailable SUBRAMANIAN, OTTO A Primary Care Unavailable ABREVERETT COPE Attending Unavailable CORNEJO, BREE Referring Unavailable SUBRAMANIAN, OTTO A Primary Care Unavailable CORNEJO, BREE Referring Unavailable SUBRAMANIAN, OTTO A Primary Care Unavailable Damaris Eckert Other Provider [phone] Ramya MOLINA, Dr. Brewer Attending Provider [phone] Dr. Otto Subramanian MD Primary Care Provider Riri Gregg Attending Provider [phone] Osman Bui Attending Unavailable Subramanian, Otto Primary Care Unavailable Subramanian, Otto Primary Care Unavailable Damaris Eckert Attending Unavail able Subramanian, Otto Referring Unavailable Ramya, [place] Attending Unavailable Ramya, [place] Referring Unavailable Subramanian, Otto Primary Care Unavailable Subramanian, Otto Primary Care Unavailable Subramanian, Otto Attending Unavailable Subramanian, Otto Primary Care Unavailable Damaris Eckert Referring Unavail able Damaris Eckert Attending Unavail able Subramanian, Otto Primary Care Unavailable Damaris Eckert Attending Unavail able Damaris Eckert Referring Unavail able Subramanian, Otto Primary Care Unavailable Damaris Eckert Attending Unavail able Damaris Eckert Referring Unavail able Sabas Nayak Attending Unavailable Subramanian, Otto Primary Care Unavailable Fabian YIP, Riri Attending Unavailable Subramanian, Otto Referring Unavailable Subramanian, Otto Primary Care Unavailable Damaris Eckert Attending Unavail able Subramanian, Otto Referring Unavailable Subramanian, Otto Primary Care Unavailable Ramya, Osman Attending Unavailable Subramanian, Otto Primary Care Unavailable Subramanian, Otto Referring Unavailable Subramanian, Otto Primary Care Unavailable Damaris Eckert Consulting Unavail able Ramya, [place] Attending Unavailable Damaris Eckert Referring Unavail able Allergies Allergy Classification Reported Allergen(s) Allergy Type Date of Onset Reaction(s) Facility Angiotensin Converting Enzyme (VICKY) Inhibitors (2 sources) Lisinopril Drug Allergy 07-11-2022 [facility] (20 sources) Lisinopril; Translations: [LISINOPRIL] Drug Allergy 08-16-2021 [facility] (1 source) Lisinopril Drug Allergy 09-29-2024 [facility] Repository Medications Current Medications Medication Drug Class(es) Dates Sig (Normalized) Sig (Original) acetaminophen 325 mg / oxyCODONE hydrochloride 5 mg oral tablet (9 sources) Opioid Agonist Start: 09-26-2024 take 1 tablet by mouth three times daily as needed for pain Oxycodone-Acetami nophen (Percocet) 5-325 mg tablet Active 1 {tbl} PO THREE TIMES A DAY as needed for pain September 26, 2024 8:20am Fracture of rib of left side Fracture of one rib, left side, initial encounter for closed fracture Start: 01-24-2024 End: 09-26-2024 take 1 tablet by mouth every six hours as needed for pain Oxycodone-Acetaminophen (Percocet) 5-325 mg tablet Discontinued 1 {tbl} PO EVERY 6 HOURS as needed for pain 20 5 0 January 24, 2024 September 26, 2024 8:22am Fracture of rib of left side Fracture of one rib, left side, initial encounter for closed fracture aspirin 81 mg delayed release oral tablet (20 sources) Platelet Aggregation Inhibitor, Nonsteroidal Anti-inflammatory Drug Start: 11-06-2017 take 1 tablet by mouth once daily Aspirin 81 mg tablet,delayed release (DR/EC) Active 81 mg PO daily November 06, 2017 12:00am Comment on above: Take 81 mg by mouth once daily. calcium citrate 950 mg / cholecalciferol 250 unt oral tablet (6 sources) Vitamin D Start: 01-24-2024 Calcium Citrate-Vitamin D3 200 mg-6.25 mcg (250 unit) tablet Active 1 {tbl} PO DAILY January 24, 2024 1:00am calcium citrate/vitamin D3 (CALCIUM CITRATE + D ORAL) (1 source) take 1 tablet by mouth twice daily calcium citrate/vitamin D3 (CALCIUM CITRATE + D ORAL) Take 1 tablet by mouth two times a day. Active cephalexin 500 mg oral capsule (1 source) Cephalosporin Antibacterial Start: 09-29-2024 take 1 capsule by mouth twice daily Cephalexin 500 mg capsule Active 500 mg PO TWICE A DAY 14 7 0 September 29, 2024 12:00am October 05, 2024 12:00am [place] 3-Kef-Hfo-Fish Oil (6 sources) Start: 01-24-2024 [place] 9-Xlv-Yqm-Fish Oil (Fish Oil) 300-1,000 mg capsule Active 1 NMA PO DAILY January 24, 2024 1:00am ergocalciferol, vitamin D2, (VITAMIN D2 ORAL) (1 source) ergocalciferol, vitamin D2, (VITAMIN D2 ORAL) Take by mouth. Active Fish Oil-[place]-3 Fatty Acids 500-300 mg ORAL Cap (20 sources) Start: 01-22-2007 take 1 capsule by mouth once daily Fish Oil-[place]-3 Fatty Acids 500-300 mg ORAL Cap Take 1 capsule by mouth once daily. 0 01/22/2007 Active Start: 01-22-2007 Fish Oil-[place] -3 Fatty Acids 500-300 mg ORAL Cap Take by mouth. 0 01/22/2007 Active Start: 01-22-2007 take 1 tablet by antony th once daily Fish Oil-[place]-3 Fatty Acids 500-300 mg ORAL Cap Take one(1) tablet daily. 0 01/22/2007 Active Comment on above: Take one(1) tablet d aily. furosemide 20 mg oral tablet (20 sources) Loop Diuretic Start: 09-26-2024 take 1 tablet by mouth once daily Furosemide 20 mg tablet Active 20 mg PO daily September 26, 2024 12:00am Start: 07-29-2013 End: 11-06-2017 take 1 tablet by mouth once daily Furosemide 20 MG tablet Discontinued 20 mg PO DAILY July 29, 2013 12:00am November 06, 2017 9:51am GLUCOSAM/MSM/CHONDR/VIT C/HY AL (NYEYZLQRPWM-[id number]-LYG ORAL) (20 sources) take 1 tablet by mouth twice daily GLUCOSAM/MSM/CHONDR/VIT C/HYAL ([id number]-HVIHSUMXNRW-VGE ORAL) Take 1 tablet by mouth two times a day. Active take 1 tablet by antony th twice daily GLUCOSAM/MSM/CHONDR/VIT C/HYAL ([id number]-[id number]-KBX ORAL) Take 1 tablet by mouth two times a day. 0 Active take 1 tablet by antony th once daily GLUCOSAM/MSM/CHONDR/VIT C/HYAL ([id number]-[id number]-EQD ORAL) Take 1 tablet by mouth once daily. 0 Active GLUCOSAM/MSM/CHO NDR/VIT C/HYAL (NYFFEBKQBTQ-XJFUXRDUHFF-KGN ORAL) Take by mouth once daily. 0 Active Comment on above: Take by mouth once d aily. Take 1 tablet by antony th once daily. Jbomklenxlh-Myqqzwmdq-J it C-Mn (12 sources) Start: 05-19-2019 Glucosamine-Chondroit- Vit C-Mn Active 1 EACH PO DAILY May 19, 2019 6:16am Start: 05-19-2019 Glucosamine-Ch ondroit-Vit C-Mn Active 1 EACH PO DAILY May 19, 2019 12:00am Start: 05-19-2019 Glucosamine-Ch ondroit-Vit C-Mn Active 1 EACH PO DAILY May 19, 2019 1:00am Ggmwlkbtyay-Wgcexdbzt-Isf C-Mn 253-470-06-5 mg tablet (2 sources) Start: 09-26-2024 Iuvkylinbxv-Vgtwpjqil-Mxr C-Mn 380-988-24-5 mg tablet Active 2 {tbl} PO DAILY September 26, 2024 8:21am iv contrast (will be provided with radiology [...] the MR contrast administration guidelines link Magnesium Hydroxide (20 sources) take 400 mg [...] Take 250 mg by mouth once daily. magnesium oxide 400 mg oral tablet (20 sources) Start: 09-26-2024 take 1 tablet by mouth once daily Magnesium Oxide 400 mg (241.3 mg magnesium) tablet Active 400 mg PO daily September 26, 2024 12:00am Start: 07-25-2019 End: 04-01-2020 take 1 tablet by mouth once daily Magnesium Oxide 400 mg (241.3 mg magnesium) tablet Discontinued 400 mg PO DAILY July 25, 2019 12:00am April 01, 2020 11:20am meloxicam 7.5 mg oral tablet (20 sources) Nonsteroidal Anti-inflammatory Drug Start: 07-21-2022 take 1 tablet by mouth once daily Meloxicam 7.5 mg tablet Active 7.5 mg PO DAILY October 15, 2022 12:00am PAIN Comment on above: once daily. Take 7.5 mg by mouth once daily. [place]-3 Fatty Acids (Fish Oil Concentrate) 1,000 mg capsule (18 sources) Start: 11-06-2017 [place]-3 Fatty Acids (Fish Oil Concentrate) 1,000 mg capsule Active 1200 MG PO daily November 06, 2017 9:50am Start: 11-06-2017 End: 12-26-2023 [place]-3 Fatty Acids (Fish Oi l Concentrate) 1,000 mg capsule Discontinued 1200 mg PO daily November 06, 2017 12:00am December 26, 2023 11:00am Start: 11-06-2017 [place]-3 Fatty Acids (Fish Oil Concentrate) 1,000 mg capsule Active 1200 MG PO daily November 05, 2017 11:00pm Start: 11-06-2017 [place]-3 Fatty Acids (Fish Oil Concentrate) 1,000 mg capsule Active 1200 MG PO daily November 06, 2017 12:00am OTC PRODUCT (20 sources) take 1500 mg by mout h twice daily OTC PRODUCT Take 1,500 mg by mouth two times a day. Lipozene Active take 1500 mg by mouth twice bolivar y OTC PRODUCT Take 1,500 mg by mouth two times a day. Lipozene 0 Active Comment on above: Take 1,500 mg by antony th two times a day. Lipozene potassium chloride 10 meq extended release oral tablet (19 sources) Start: 03-05-2024 End: 03-12-2024 potassium chloride (K-TAB) 10 mEq tablet Take 1 tablet by mouth once daily for 7 days. For seven days 7 tablet 03/05/2024 03/12/2024 Active Start: 08-16-2021 End: 10-14-2021 take 1 tablet by mouth twice daily Potassium Chloride 20 mEq tablet extended release Discontinued 20 meq PO TWICE A DAY 6 0 August 16, 2021 12:00am October 14, 2021 [...] tablet by antony th once daily. ubidecarenone (ULTRA COQ10 ORAL) (20 sources) ubidecarenone (U LTRA COQ10 ORAL) Take by mouth once daily. Active ubidecarenone (U LTRA COQ10 ORAL) Take by mouth once daily. 0 Active Comment on above: Take by mouth once d aily. 100 ml zoledronic acid 0.04 mg/ml injection (13 sources) Bisphosphonate Start: 023 take 1 dose intravenously every month Zoledronic Ghmx-Bcccvwgq-Ixqba (Zometa) 4 mg/100 mL Piggyback Active 0 .ROUTE .COMPLEX June 21, 2022 12:00am 1 ea intravenously monthly Completed/Discontinued Medications Medication Drug Class(es) Dates Sig (Normalized) Sig (Original) acetaminophen 325 mg / HYDROcodone bitartrate 5 mg oral tablet (13 sources) Opioid Agonist Start: 10-15-2022 End: 05-23-2023 Hydrocodone-Acetami nophen 5-325 mg tablet Discontinued 1 {tbl} PO EVERY 6 HOURS NEEDED as needed for Pain 8 3 0 October 15, 2022 May 23, 2023 11:21am Pain in left lumbar region of back Low back pain, unspecified Start: 10-15-2022 End: 05-23-2023 take 1 tablet by mouth every six hours as needed Hydrocodone-Acetaminophen Discontinued 1 TABLET PO EVERY 6 HOURS NEEDED 8 3 October 15, 2022 May 23, 2023 11:21am Start: 08-16-2021 take 1 tablet by antony twice daily Hydrocodone-Acetaminophen Active 1 TABLE T PO TWICE A DAY 10 5 August 16, 2021 11:24am apalutamide 60 mg [...] Start: 04-26-2022 take 3 tablets by mo ut once daily apalutamide (ERLEADA) 60 mg tablet [...] tablet (20 sources) HMG-CoA Reductase Inhibitor Start: End: take 1 tablet by mouth once daily Atorvastatin 20 mg tablet Discontinued 20 mg PO .QOD 45 August 09, 2024 9:59am September 26, 2024 8:22am 20 mg orally daily; may reduce to every other day when myalgias flair.; Start: 02-28-2022 End: 03-28-2022 take 1 tablet by mouth every other day Atorvastatin 20 mg tablet Discontinued 20 mg PO .every other day 90 February 28, 2022 3:11pm March 28, 2022 11:06am Start: 07-21-2021 End: 02-28-2022 Atorvastatin 40 mg tablet Discontinued 20 mg PO .every other day 45 July 21, 2021 3:10pm February 28, 2022 3:11pm Start: 07-21-2021 End: 02-28-2022 take 20 mg by mouth every other day Atorvastatin Discontinued 20 MG PO .every other day 45 July 21, 2021 3:10pm February 28, 2022 3:11pm Start: 12-31-2018 End: 07-21-2021 Atorvastatin 40 mg tablet Discontinued 20 mg PO DAILY 45 March 04, 2020 10:16am July 21, 2021 3:10pm Start: 12-31-2018 End: 07-21-2021 take 20 mg by mouth once daily Atorvastatin Discontinu ed 20 MG PO DAILY 45 March 04, 2020 10:16am July 21, 2021 3:10pm Start: 11-06-2017 End: 12-31-2018 take 1 tablet by mouth once daily Atorvastatin 40 mg tablet Discontinued 40 mg PO DAILY 90 4 December 10, 2018 10:08am December 31, 2018 [...] 12:00am Start: 07-05-2010 take 1 tablet by [facility] once daily Calcium Carbonate-Vitamin D3 600mg (1,000mg) -1,000 unit ORAL Tab Indications: Malignant neoplasm of prostate (HCC) Take 1 tablet by mouth once daily. 30 tablet 6 07/05/2010 Active Comment on above: Take 1 tablet by [facility] once daily. cyclobenzaprine hydrochloride 5 mg oral [...] mouth t hree times daily as needed. ergocalciferol 1.25 mg oral capsule (20 sources) Provitamin D2 Compound Start: 10-10-19 End: 09-27-19 Ergocalciferol (Vitamin D2) 1,250 mcg (50,000 unit) capsule Discontinued 1250 ug PO EVERY WEEK October 14, 2021 12:00am September 26, 2024 8:21am Comment on above: Take 1 capsule by [facility] one time a week. gabapentin 300 mg oral capsule (18 sources) Anti-epileptic Agent Start: 06-23-19 End: 07-25-19 20 take 1 capsule by mouth at bedtime Gabapentin 300 mg capsule Discontinued 300 mg PO AT BEDTIME June 22, 2018 12:00am July 25, 2019 10:29am Glucosamine-Chondroit- Vit C-Mn 1 EACH tablet (6 sources) Start: 05-19-19 End: 09-27-19 take 1 tablet by mouth once daily Glucosamine-Chondroit- Vit C-Mn 1 EACH tablet Discontinued 1 NMA PO DAILY May 19, 2019 1:00am September 26, 2024 8:22am Start: 05-19-2019 take 1 tablet by antony th once daily Ozwtoffsifi-Lcutlcllm-Wbe C-Mn 1 EACH tablet Active 1 NMA PO DAILY May 19, 2019 1:00am hydroCHLOROthiazide 12.5 mg oral tablet (20 sources) Thiazide Diuretic Start: 03-28-2018 End: 08-09-2024 take 1 tablet by mouth once daily Hydrochlorothiazide 12.5 mg tablet Discontinued 12.5 mg PO DAILY 3 2023 10:07am August 09, 2024 10:00am take 1 capsule by mouth once andrew [...] 09-19-2023 leuprolide 22.5 mg subcutane ous syringe (ELISENGD) Start: 10-14-2021 Leuprolide (4 Month) Active 30 MG SC every 4 months October 13, 2021 11:00pm Start: 09-24-2021 End: 01-17-2023 leuprolide 30 mg injection (ELIGARD) losartan potassium 25 mg oral tablet (20 sources) Angiotensin 2 Receptor Nidhi Start: 11-06-2017 End: 08-09-2024 take 1 tablet by mouth once daily Losartan 25 mg tablet Discontinued 25 mg PO DAILY 90 4 2023 10:07am August 09, 2024 10:00am Comment on above: Take 25 mg by mouth once daily. Magnesium (11 sources) Start: 10-15-2022 End: 09-26-2024 take 1 tablet by mouth once daily Magnesium 250 mg tablet Discontinued 250 mg PO DAILY October 15, 2022 12:00am September 26, 2024 8:19am Start: 10-15-2022 take 1 tablet by antony th once daily Magnesium 250 mg tablet Active 250 mg PO DAILY October 15, 2022 12:00am Start: 10-15-2022 take 250 mg by mouth once bolivar y Magnesium Active 250 MG PO DAILY October 14, 2022 11:00pm Start: 10-15-2022 take 250 mg by mouth once bolivar y Magnesium Active 250 MG PO DAILY October 15, 2022 12:00am methocarbamol 500 mg oral tablet (11 sources) Muscle Relaxant Start: 10-15-2022 End: 12-26-2023 take 1 tablet by mouth every eight hours as needed for pain Methocarbamol 500 mg tablet Discontinued 500 mg PO Q8H as needed for muscle pain 7 0 October 15, 2022 3:13pm December 26, 2023 11:01am metoprolol tartrate 25 mg oral tablet (20 sources) beta-Adrenergic Nidhi Start: 03-28-2022 End: 07-08-2024 take 1 tablet by mouth twice daily Metoprolol Tartrate 25 mg tablet Discontinued 25 mg PO TWICE A DAY 180 3 July 11, 2023 9:52am July 08, 2024 12:27pm Start: 10-14-2021 End: [...] Take 50 mg by mouth twice daily. nitroglycerin 0.4 mg sublingual tablet (20 sources) Nitrate Vasodilator Start: 11-06-2017 End: 05-23-2023 Nitroglycerin 0.4 mg tablet, sublingual Discontinued 0.4 mg SL every 5 to 15 minutes as needed for chest pain 11 06December 31, 2018 9:28am May 23, 2023 5:46pm nitroglycerin avalos blingual 0.3 mg SL tablet Dissolve 0.3 mg under the tongue every 5 minutes as needed. Active Comment on above: Dissolve 0.3 mg unde r the tongue every 5 minutes as needed. ondansetron 4 mg disintegrating oral tablet (6 sources) Serotonin-3 Receptor Antagonist Start: 01-24-20 End: 09-27-19 take 1 tablet by mouth three times daily as needed for nausea and vomiting Ondansetron 4 mg tablet,disintegratin g Discontinued 4 mg PO THREE TIMES A DAY as needed for nausea and vomiting January 24, 2024 7:41am September 26, 2024 8:21am 24 hr oxybutynin chloride 5 mg extended release oral tablet (20 sources) Cholinergic Muscarinic Antagonist Start: 06-08-19 End: 01-18-20 25 take 1 tablet by mouth once daily Oxybutynin Chloride 5 mg tablet extended release 24hr Discontinued 5 mg PO DAILY January 24, 2024 1:00am June 27, 2024 10:44am Start: 02-01-2022 End: 07-28-2022 take 1 tablet by mouth once daily oxybutynin XL (DITROPAN XL) 5 mg 24 hr tablet Take 1 tablet by mouth once daily. 90 tablet 3 02/01/2022 07/28/2022 Discontinued Comment on above: Take 1 tablet by antony th once daily. polyethylene glycol 3350 36431 mg powder for oral solution (10 sources) Osmotic Laxative Start: 3 End: 4 Polyethylene Glycol 3350 (Miralax) 17 gram/dose powder Discontinued 17 g PO DAILY as needed for constipation 119 0 October 17, 2022 2:11pm January 24, 2024 3:52am potassium 99 mg extended release oral tablet (11 sources) Start: 3 End: 5 take 1 tablet by mouth once daily Potassium 99 mg tablet Discontinued 99 mg PO DAILY October 15, 2022 12:00am September 26, 2024 8:21am predniSONE 20 mg oral tablet (18 sources) Start: 2 End: 2 take 2 tablets by mouth once daily Prednisone 20 mg tablet Discontinued 40 mg PO DAILY 8 August 16, 2021 12:00am October 14, 2021 8:25am Start: 08-16-2021 End: 10-14-2021 take 40 mg by mouth once daily Prednisone Discontinued 40 MG PO DAILY August 16, 2021 12:00am October 14, 2021 8:25am Saw-Vit E-Sod Uhb-Wqy-Bcsk-P yg (12 sources) Start: 05-19-2019 End: 07-25-2019 Saw-Vit E-Sod Bgq-Ydp-Mexf-P yg Discontinued 1 EACH PO DAILY May 19, 2019 6:16am July 25, 2019 10:29am Start: 05-19-2019 End: 07-25-2019 Saw-Vit E-Sod Gav-Nhz-Hvtu-P yg Discontinued 1 EACH PO DAILY May 19, 2019 12:00am July 25, 2019 9:29am Start: 05-19-2019 End: 07-25-2019 Saw-Vit E-Sod Pmg-Gry-Wmev-P yg Discontinued 1 EACH PO DAILY May 19, 2019 1:00am July 25, 2019 10:29am Saw-Vit E-Sod Lhp-Hbj-Dxvc-Pyg 1 EACH tablet (6 sources) Start: 05-19-2019 End: 07-25-2019 take 1 tablet by mouth once daily Saw-Vit E-Sod Vtj-Krp-Vkan-Pyg 1 EACH tablet Discontinued 1 NMA PO [...] daily. traZODone hydrochloride 50 mg oral tablet (18 sources) Serotonin Reuptake Inhibitor Start: 8 End: 8 take 1 tablet by mouth once daily as needed Trazodone 50 mg tablet Discontinued 50 mg PO daily as needed November 06, 2017 12:00am November 06, 2017 3:36pm ubidecarenone 100 mg oral capsule (6 sources) Start: 4 End: 5 Coenzyme Q10 (Coq-10) 100 mg capsule Discontinued 300 mg PO DAILY January 24, 2024 1:00am September 26, 2024 8:36am zoledronic acid 3.3 mg in NaCl 0.9% [...] and perineal pain] Onset: 04-03-2009 04-03-2009 Episodic Calculus of urinary tract (16 sources) Urinary bladder stone; Translations: [Calculus in bladder] 09-08-2021 Episodic Cancer of prostate (20 sources) Malignant tumor of prostate; Translations: [Malignant neoplasm of prostate] Onset: 07-07-2005 07-07-2005 Chronic Cancer of prostate (15 sources) History of malignant neoplasm of prostate; Translations: [Personal history of malignant neoplasm of prostate] Onset: 05-24-2024 06-22-2022 Episodic Cardiac dysrhythmias (20 sources) Premature atrial contraction; Translations: [Atrial premature depolarization] Chronic Complications of surgical procedures or medical care (18 sources) Postoperative dental wound hemorrhage; Translations: [Postprocedural hemorrhage of a digestive system organ or structure following a digestive system procedure] 05-20-2019 Episodic Coronary atherosclerosis and other heart disease (20 sources) Old myocardial infarction; Translations: [Old myocardial infarction] Onset: 09-24-2024 Chronic Coronary atherosclerosis and other heart disease (20 sources) Stented coronary artery; Translations: [Presence of coronary angioplasty implant and graft] Onset: 07-18-2013 Episodic Comment on above: PCI/IMMANUEL to the Ramus 07/29/13 Disorders of lipid metabolism (20 sources) Hyperlipidemia; Translations: [Hyperlipidemia, unspecified] Onset: 06-27-2024 Chronic Disorders of teeth and jaw (18 sources) History of surgical procedure on mouth; Translations: [Partial loss of teeth, unspecified cause, unspecified class] 05-20-2019 Episodic E Codes: Fall (6 sources) Accidental fall ; Translations: [Unspecified fall, initial encounter] 02-01-2024 Episodic Essential hypertension (20 sources) Essential hypertension; Translations: [Essential (primary) hypertension] Onset: 06-27-2024 Chronic Fluid and electrolyte disorders (18 sources) Hypokalemia; Translations: [Hypokalemia] 08-24-2021 Episodic Heart valve disorders (20 sources) Aortic stenosis, non-rheumatic ; Translations: [Nonrheumatic aortic (valve) stenosis] Onset: 09-26-2024 Chronic Inflammatory conditions of male genital organs (20 sources) Balanoposthitis; 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: 01-22-2007 01-22-2007 Chronic Malaise and fatigue (13 sources) Asthenia; Translations: [Weakness] 06-22-2022 Episodic Nutritional deficiencies (3 sources) Vitamin D deficiency; Translations: [Vitamin D deficiency, unspecified] Chronic Occlusion or stenosis of precerebral arteries (2 sources) Internal carotid artery stenosis; Translations: [Occlusion and stenosis of unspecified carotid artery] Onset: 06-18-2024 06-18-2024 Chronic Other and ill-defined heart disease (18 sources) Diastolic dysfunction; Translations: [Other ill-defined heart diseases] 11-06-2017 Chronic Other bone disease and musculoskeletal deformities (2 sources) X-ray evidence of poor mineralization; Translations: [Other specified disorders of bone density and structure, unspecified site] Episodic Other bone disease and musculoskeletal deformities (2 sources) Osteopenia; Translations: [Other specified disorders of bone density and structure, unspecified site] 01-30-2023 Episodic Other circulatory disease (16 sources) Disorder of carotid artery; Translations: [Disorder of arteries and arterioles, unspecified] 05-23-2023 Chronic Other circulatory disease (3 sources) Disorder of arteries and arterioles, unspecified; Translations: [Unspecified disorders of arteries and arterioles] Onset: 06-27-2024 05-23-2023 Chronic Other circulatory disease (18 sources) Carotid bruit; Translations: [Other specified symptoms and signs involving the circulatory and respiratory systems] 01-18-2021 Episodic Other circulatory disease (4 sources) Other specified symptoms and signs involving the circulatory and respiratory systems; Translations: [Other symptoms involving cardiovascular system] Episodic Other circulatory disease (13 sources) H/O: heart disorder; Translations: [Personal history [...] Translations: [Overactive bladder] 01-23-2024 Chronic Other fractures (6 sources) Fracture of left rib; Translations: [Fracture of one rib, left side, initial encounter for closed fracture] 02-01-2024 Episodic Other fractures (1 source) Fracture of one rib, left side, initial encounter for closed fracture; Translations: [Fracture of one rib, left side, initial encounter for closed fracture] Onset: 09-26-2024 Episodic Other gastrointestinal disorders (16 sources) Constipation; Translations: [Constipation, unspecified] 09-08-2021 Episodic Other hereditary and degenerative nervous system conditions (1 source) Early onset cerebellar ataxia; 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 Other lower respiratory disease (2 sources) Other forms of dyspnea; Translations: [Other forms of dyspnea] Onset: 09-26-2024 Episodic Other nervous system disorders (2 sources) Neuropathy; [...] Onset: 06-18-2024 Episodic Other non-traumatic joint disorders (18 sources) Joint pain; Translations: [Pain in unspecified joint] 08-24-2021 Episodic Residual codes; unclassified (20 sources) Obstructive sleep apnea syndrome; Translations: [Obstructive [...] 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)] Onset: 06-19-2022 Chronic Skin and subcutaneous tissue infections (3 sources) Cellulitis of left lower limb; Translations: [Cellulitis of left lower limb] Onset: 09-29-2024 09-29-2024 Episodic Spondylosis; intervertebral disc disorders; other back problems (20 sources) Lumbago; Translations: [Pain in left lumbar region of back] Onset: 06-18-2024 10-15-2022 Episodic Unclassified (10 sources) G47.33 - Obstructive sleep apnea (adult) (pediatric) Unclassified (1 source) Established Patient Onset: 08-20-2024 Unclassified (1 source) Low back pain, unspecified back pain laterality, unspecified chronicity, unspecified whether sciatica present; Translations: [Low back pain, unspecified back pain laterality, unspecified chronicity, unspecified whether sciatica present] Onset: 06-04-2024 Past or Other Problems Problem Classification Problem Date Documented Da te Episodic/Chronic Heart valve disorders (19 sources) Heart murmur; Translations: [Cardiac murmur, unspecified] Onset: 07-02-2024 11-06-2017 Episodic Other injuries and conditions due to [...] Test Name Value Interpretation Reference Range Facility Office Visit Reporton 2024 Office Visit Report [facility] [address] [place] [address] OFFICE VISIT Date of Service: 09/29/24 MR#: [id number] Acct: [id number] Patient: ALEX CARPENTER Rep #: [id number] : 1935 Provider: MARIE Sheridan Age/Sex: 89/M Location: [facility] Status: Signed Intake Vital Signs 09/26/24 08:11 09/29/24 09:37 Height 5 ft 8 in 5 ft 8 in Weight: 180 lb 180 lb BMI 27.3 27.3 BP 143/86 H 108/62 Blood Pressure Location Lt brachial Lt brachial Position Sitting Sitting Respiration 16 16 Pulse 72 86 Pulse Source NIBP NIBP Temp 98.5 F Temp Source Oral Pulse Oximetry (%) 98 Oxygen Delivery Method room air Intake Visit Reasons: RED SWOLLEN L ANKLE/FOOT Chief Complaint: LLE swelling/redness Family Law Paralegal Required: No Is patient in pain?: Yes Allergies lisinopril Adverse Reaction (Severe, Verified 09/29/24 09:38) cough Have you fallen in the past year?: No Nurse's Note: LLE swelling/redness x 3 days with tenderness. BLE edema noted, redness to LLE, no drainage noted. pt is a WHG pt, does not use support hose, takes diuretic prn and has only taken three times since getting RX. 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 Patient states that the swelling started bilaterally a few days ago. Primary care doctor did give him some diuretics. He has not started to take it. He states since then his left leg has gotten significantly warmer and it is warm to touch. He does not recall injuring it. He does not have any open sores on it. He has not had any fevers or chills. He does have an upcoming heart catheterization for his severe aortic stenosis. ROS Const Constitutional: Positive for other (ROS negative x 6 except what is described above) Exam Const General: cooperative, healthy appearing and no acute distress Nutritional Appearance: average body habitus Orientation: alert, awake and oriented x3 HENMT Head: normal to inspection and atraumatic Ears: hearing grossly normal bilaterally Nose: external nose normal Face and sinus: normal facial exam Mouth: oral mucosae normal Eyes General: appearance normal, both eyes and all related structures Musc Other: Left leg edematous and reddened. It is warm to touch. No open oozing noted. Swollen a third of the way up his leg. Right leg not swollen venous insufficiency noted bilaterally Neuro General: patient alert, patient awake, patient oriented x3 and CN's II-XI intact bilaterally Coding Level of Care Code Off vis,est,level 3 Diagnoses Left leg cellulitis L03.116 Assessment and Plan Assessment and Plan (1) Left leg cellulitis: Status: Acute Plan: Encouraged patient to start his diuretic. Also will treat with an antibiotic. If it is not improved in a few days he should let his primary care doctor be aware of this. Medications: New cephalexin 500 mg PO BID 7 days 14 caps 0RF Clinical Quality Measures Falls Risk Screening/Assistive Devices Have you fallen in the past year?: No 09/29/24 0947 A> Date Damaris Allen Signature: Date (if applicable) CC: Normal [facility] Basic Metabolic Profile (BMP )on 09-26-2024 BUN/CRE 23.4 RATIO High - [facility] Comment on above: Performed By: #### L 100.0100, L503.7505, L500.2500 ####[facility] [address] [place], [address] Calcium [Mass/Vol] 9.1 mg/dL Normal 7.6-11.0 [facility] Comment on above: Performed By: #### L 100.0100, L503.7505, L500.2500 ####[facility] [address] [place], [address] Chloride [Moles/Vol] 106 mmol/L Normal 98-108 [facility] Comment on above: Performed By: #### L 100.0100, L503.7505, L500.2500 ####[facility] [address] [place], [address] CO2 [Moles/Vol] 27.6 mmol/L Normal 21.0-32.0 [facility] Comment on above: Performed By: #### L 100.0100, L503.7505, L500.2500 ####[facility] [address] [place], [address] Creatinine [Mass/Vol] 1.03 mg/dL Normal 0.70-1.20 [facility] Comment on above: Performed By: #### L 100.0100, L503.7505, L500.2500 ####[facility] [address] [place], [address] GAP 9 Normal 5-15 [facility] Comment on above: Performed By: #### L 100.0100, L503.7505, L500.2500 ####[facility] [address] [place], [address] GFR/1.73 sq M.predicted among non-blacks MDRD (S/P/Bld) [Vol rate/Area] 70 mL/min/{1.73_m2} Normal >60 [facility] Comment on above: Result Comment: mL/m in/1.73m2 CKD-EPI Creatinine Equation (2020) Performed By: #### L 100.0100, L503.7505, L500.2500 ####[facility] [address] [place], [address] Glucose [Mass/Vol] 108 mg/dL High 70-99 [facility] Comment on above: Performed By: #### L 100.0100, L503.7505, L500.2500 ####[facility] [address] [place], [address] Potassium [Moles/Vol] 3.8 mmol/L Normal 3.3-5.1 [facility] Comment on above: Performed By: #### L 100.0100, L503.7505, L500.2500 ####[facility] [address] [place], [address] Sodium [Moles/Vol] 143 mmol/L Normal 133-145 [facility] Comment on above: Performed By: #### L 100.0100, L503.7505, L500.2500 ####[facility] [address] [place], [address] Urea nitrogen [Mass/Vol] 24 mg/dL High 4-19 [facility] Comment on above: Performed By: #### L 100.0100, L503.7505, L500.2500 ####[facility] [address] [place], [address] CBC W/Diff, Automatedon 07- 0-2025 Absolute Lymph 0.85 X10 3/uL Normal 0.83-4.51 [facility] Comment on above: Performed By: #### L 100.0100, L503.7505, L500.2500 ####[facility] [address] [place], [address] Absolute Neut 7.3 X10 3/uL Normal 2.0-7.7 [facility] Comment on above: Performed By: #### L 100.0100, L503.7505, L500.2500 ####[facility] [address] [place], [address] Basophils/100 WBC (Bld) 0.5 % Normal 0-1 [facility] Comment on above: Performed By: #### L 100.0100, L503.7505, L500.2500 ####[facility] [address] [place], [address] Eosinophils/100 WBC (Bld) 1.9 % Normal 0-5 [facility] Comment on above: Performed By: #### L 100.0100, L503.7505, L500.2500 ####[facility] [address] [place], [address] Erythrocyte distribution width (RBC) [Ratio] 13.2 % Normal 11.6-14.6 [facility] Comment on above: Performed By: #### L 100.0100, L503.7505, L500.2500 ####[facility] [address] [place], [address] Hematocrit (Bld) [Volume fraction] 40.2 % Normal 40-54 [facility] Comment on above: Performed By: #### L 100.0100, L503.7505, L500.2500 ####[facility] [address] [place], [address] Hemoglobin (Bld) [Mass/Vol] 13.2 g/dL Normal 13.0-16.5 [facility] Comment on above: Performed By: #### L 100.0100, L503.7505, L500.2500 ####[facility] [address] [place], [address] IG% 0.800 Normal 0.0-0.9 [facility] Comment on above: Result Comment: IG% - Immature Granulocytes (promyelocytes, myelocytes and metamyelocytes) > 1% indicates that a LEFT SHIFT is Present. Performed By: #### L 100.0100, L503.7505, L500.2500 ####[facility] [address] [place], [address] Lymphocytes/100 WBC (Bld) 9.3 % Low 19-41 [facility] Comment on above: Performed By: #### L 100.0100, L503.7505, L500.2500 ####[facility] [address] [place], [address] MCH (RBC) [Entitic mass] 31.7 pg Normal 27.0-32.0 [facility] Comment on above: Performed By: #### L 100.0100, L503.7505, L500.2500 ####[facility] [address] [place], [address] MCHC (RBC) [Mass/Vol] 32.8 g/dL Normal 32-36 [facility] Comment on above: Performed By: #### L 100.0100, L503.7505, L500.2500 ####[facility] [address] [place], [address] MCV (RBC) [Entitic vol] 96.4 fL High 80-94 [facility] Comment on above: Performed By: #### L 100.0100, L503.7505, L500.2500 ####[facility] [address] [place], [address] Monocytes/100 WBC (Bld) 7.4 % Normal 0-10 [facility] Comment on above: Performed By: #### L 100.0100, L503.7505, L500.2500 ####[facility] [address] [place], [address] Neutrophils/100 WBC (Bld) 80.1 % High 47-70 [facility] Comment on above: Performed By: #### L 100.0100, L503.7505, L500.2500 ####[facility] [address] [place], [address] Nucleated RBC (Bld) [#/Vol] 0 10*3/uL Normal 0-5 [facility] Comment on above: Performed By: #### L 100.0100, L503.7505, L500.2500 ####[facility] [address] [place], [address] Platelet mean volume (Bld) [Entitic vol] 10.4 fL Normal 6.2-12.0 [facility] Comment on above: Performed By: #### L 100.0100, L503.7505, L500.2500 ####[facility] [address] [place], [address] Platelets (Bld) [#/Vol] 248 10*3/uL Normal 150-450 [facility] Comment on above: Performed By: #### L 100.0100, L503.7505, L500.2500 ####[facility] [address] [place], [address] RBC (Bld) [#/Vol] 4.17 10*6/uL Low 4.6-6.2 [facility] Comment on above: Performed By: #### L 100.0100, L503.7505, L500.2500 ####[facility] [address] [place], [address] RDW SD 46.8 fl High 35.1-43.9 [facility] Comment on above: Performed By: #### L 100.0100, L503.7505, L500.2500 ####[facility] [address] [place], [address] WBC (Bld) [#/Vol] 9.1 10*3/uL Normal 4.4-11.0 [facility] Comment on above: Performed By: #### L 100.0100, L503.7505, L500.2500 ####[facility] [address] [place], [address] Cardiology Visit Reporton Cardiology Visit Report [facility] [address] [place] [address] OFFICE VISIT Date of Service: 09/26/24 MR#: [id number] Acct: [id number] Name: ALEX CARPENTER Rep #: [id number] : 1935 Provider: VIKRAM roach Age/Sex: 89/M Location[place] [facility] Status: Signed with Addenda ADDENDUM by VIKRAM Peralta on 09/26/24 at 1100 Addendum Addendum Details:: His EKG from today demonstrates normal sinus rhythm, heart rate 72 bpm. Assessment and Plan Assessment and Plan (1) Nonrheumatic aortic (valve) stenosis: Status: Acute (2) Presence of stent in coronary artery: Status: Chronic Comment: PCI/IMMANUEL to the Ramus 07/29/13 (3) Hyperlipidemia: Status: Chronic Qualifiers: Hyperlipidemia type: unspecified Qualified Code(s): E78.5 - Hyperlipidemia, unspecified (4) Essential hypertension: Status: Chronic (5) Carotid artery disease: Status: Acute Orders: Orders Chest PA and Lateral Today Riri Peralta NP, BOARD CERTIFIED MUSIC THERAPISTDemarcusC I35.0 - Nonrheumatic aortic (valve) stenosis Left Heart Cath/COR/LV Percut 10/07/24 DE [place] NPC I35.0 - Nonrheumatic aortic (valve) stenosis Basic Metabolic Profile (BMP) Today VIKRAM [place] NP I35.0 - Nonrheumatic aortic (valve) stenosis CBC W/Diff, Automated Today ED [place] NPC I35.0 - Nonrheumatic aortic (valve) stenosis 12 Lead EKG performed by BMS Today DE [place] NPC I35.0 - Nonrheumatic aortic (valve) stenosis Pro- Brain NATRIURETIC PEPTIDE Today Riri Peralta NP, BOARD CERTIFIED MUSIC THERAPIST-C R06.09 - Other forms of dyspnea Medications: Changed From atorvastatin 20 mg orally daily; may reduce to every other day when myalgias flair.; 20 mg PO .QOD 45 tabs 3RF To atorvastatin 20 mg orally daily; may reduce to every other day when myalgias flair.; 20 mg PO Q OTHER DAY Riri Peralta NP, BOARD CERTIFIED MUSIC THERAPIST-C From oxycodone-acetaminophen 5-325 mg (Percocet) 1 TAB PO Q6H 5 days PRN 20 tabs 0RF pain S22.32XA - Fracture of one rib, left side, initial encounter for closed fracture To oxycodone-acetaminophen 5-325 mg (Percocet) 1 TAB PO TID PRN S22.32XA - Fracture of one rib, left side, initial encounter for closed fracture Dr. Sabas Nayak, DO Plan Details Follow Up: Keep as is (MMM) 09/26/24 1100 Date Riri Peralta NP BOARD CERTIFIED MUSIC THERAPIST-C cc: Dr. Otto Subramanian MD * Signed HPI HPI History of Present Illness Surgical H P: Yes Details: Alex Carpenter is an 89 year-old white male who presents today for an outpatient cardiovascular follow-up visit. He has a history of underlying CAD status post IMMANUEL (2013), aortic valve stenosis, hyperlipidemia, and hypertension. He underwent an echocardiogram on 08/20/2024 which demonstrated an ejection fraction of 65%, and severe aortic valve stenosis. His stress test from 09/12/2024 was negative for ischemia. From a cardiac standpoint, the patient is doing well. He denies any palpitations, chest pain, pressure or heaviness. He denies SOB, Orthopnea, and PND. He does not have bleeding issues; no blood in urine, stool, or nosebleeds. He does acknowledge a decrease in energy level. He denies myalgias, or claudication. He does have BLE. He does not have sudden weight gain. He denies lightheadedness, dizziness, syncopal or near syncopal episodes, and headaches. Intake Vital Signs 06/27/24 10:38 09/26/24 08:11 Height 5 ft 8 in 5 ft 8 in Weight: 180 lb BMI 27.3 BP 143/86 H Blood Pressure Location Lt brachial Position Sitting Respiration 16 Pulse 72 Pulse Source NIBP Intake Visit Reasons: UPDATE H P Family Law Paralegal Required: No Accompanied by: Is patient in pain?: No Allergies lisinopril Adverse Reaction (Severe, Verified 09/26/24 08:35) cough Medications ???Medication ???Instructions ???Recorded ???Confirmed ???Type aspirin 81 mg tablet,delayed 81 mg PO QDAY 11/06/17 09/26/24 Hi story release zoledronic acid 4 mg/100 mL in See Rx Instructions .Route .COMPLE X 06/21/22 09/26/24 History mannitol 5 %-water intravenous piggybck meloxicam 7.5 mg tablet 7.5 mg PO DAILY PAIN 10/15/22 07/ History nitroglycerin 0.4 mg sublingual 0.4 mg sublingual Q5-15M PRN chest 05/23/23 09/26/24 Rx tablet pain #25 tabs calcium 200 mg (as 1 tab PO DAILY 01/24/24 09/26/24 H istory citrate)-vitamin D3 6.25 mcg (250 unit) tablet omega 8-ifr-lht-fish oil 300 1 cap PO DAILY 01/24/24 09/26/24 H istory mg-1,000 mg capsule (Fish Oil) metoprolol tartrate 25 mg tablet 25 mg PO BID #180 tabs 07/08/24 Rx hydrochlorothiazide 12.5 mg tablet 12.5 mg PO DAILY #90 tabs 09/26/24 Rx losartan 25 mg tablet 25 mg PO DAILY #90 tabs 08/09/24 0 09/26/24 Rx atorvastatin 20 mg tablet 20 mg PO Q OTHER DAY 09/26/2409/17 History furosemide 20 mg tabl (more content not included)... Normal [facility] Chest PA and Lateralon 09-26 Chest PA and Lateral [facility] Imaging Services [address] [place] [id number] Chest PA and Lateral MR#: [id number] Acct: [id number] Name: ALEX CARPENTER Rep #: [id number] : 1935 M 89 From: Evelio Amaya MD PCP: Dr. Otto Subramanian MD Status: PRE [facility] Study: Chest PA and Lateral Date of Exam: 09/26/24 Exam# [id number] Ordering Dr: Riri Peralta BOARD CERTIFIED MUSIC THERAPIST BOARD CERTIFIED MUSIC THERAPIST- C PROCEDURE: CHEST PA AND LATERAL 09/26/2024 REASON FOR EXAM: CARDIAC CATH TECHNIQUE: CHEST PA AND LATERAL COMPARISON: None. FINDINGS: The heart is enlarged. Ill-defined opacities of the bilateral lower lobes which may represent atelectasis or developing infection. The edema is possible. No pleural effusion or pneumothorax. RAD/Chest PA and Lateral IMPRESSION: Pulmonary findings as above. Reading Location: [id number] CC: BOARD CERTIFIED MUSIC THERAPIST-C Riri Peralta; Dr. Otto Subramanian MD [employer]oultry Farm Supervisor: Signed Normal [facility] L503.7505on 09-26-2024 Natriuretic peptide B (Bld) [Mass/Vol] 756 pg/mL Normal <=1800 [facility] Comment on above: Result Comment: Hear t Failure Unlikely: < 300 pg/mL Heart Failure Likely < 50 Years: > 450 pg/mL 50-75 Years: > 900 pg/mL >75 Years: > 1800 pg/mL Performed By: #### L 100.0100, L503.7505, L500.2500 ####[facility] [address] [place], [address] Echocardiogram study reportO rdered By: Osman Bui on 09-17-2024 Study report [facility] [address] [place] [address] Echo Complete W/ Contrast 09/16/24 1105 MR#: [id number] Acct: [id number] Name: ALEX CARPENTER Rep #:[id number] : 1935 89 From: Osman Magallon Attending Dr: MARIE Cary Status: REG CLI Ordering Dr: Damaris [place] Date: 09/16/24 Location: CVS Sex: M C Admitted: Reason For Study Reason For Study: Murmur Procedure This was a 2D Doppler, Color Flow transthoracic echocardiogram. The study was technically difficult. Contrast injection was performed. Exam performed in department. Left Ventricle Normal LV size. Mild concentric left ventricular hypertrophy. Left ventricular systolic function is normal. The left ventricular ejection fraction is 65 %. No regional wall motion abnormalities noted. Right Ventricle Normal RV size. Normal systolic function. Atria Normal left atrium. Normal right atrium. Mitral Valve Normal mitral valve. Tricuspid Valve Normal tricuspid valve. Aortic Valve Trisinus/trileaflet aortic valve. Moderate focal aortic valve calcification. Peak aortic valve gradient 79 mmHg. Mean aortic valve gradient 45 mmHg. Severe aortic stenosis. Pulmonic Valve Normal pulmonic valve. Great Vessels Normal aortic root. The pulmonary artery is normal size. Pericardium/Pleural No pericardial effusion. Medication 22 gauge I.V. with prn adaptor inserted into right arm. Diluted definity 1ml given slow IV push to enhance endocardial definition. MMode/2D Measurements & Calculations LVIDd: 4.5 cm IVSd: 1.4 cm LVOT diam: 2.2 cm LVIDs: 2.5 cm LVPWd: 1.3 cm FS: 45.2 % LVOT area: 3.8 cm2 Ao root diam: 3.6 cm LAV(MOD-bp): 55.5 ml LVAd ap4: 40.0 cm2 LA dimension: 4.0 cm LAV(MOD-bp) Indexed: 28.3 ml/m2 LVLd ap4: 8.9 cm LAV(MOD-sp2): 52.7 ml EDV(MOD-sp4): 148.3 ml LAV(MOD-sp4): 47.7 ml EDV(sp4-el): 152.7 ml LVAs ap4: 20.1 cm2 LVLs ap4: 6.9 cm ESV(MOD-sp4): 50.6 ml ESV(sp4-el): 49.8 ml EF(MOD-sp4): 65.9 % EF(sp4-el): 67.4 % SV(MOD-sp4): 97.8 ml SV(sp4-el): 102.9 ml LA A4 area: 19.4 cm2 SI(MOD-sp4): 49.8 ml/m2 TAPSE: 1.8 cm Time Measurements MV dec time: 0.22 sec Doppler Measurements & Calculations MV E max gilmer: 71.7 cm/sec Lat Peak E' Gilmer: 6.6 cm/sec Med Peak E' Gilmer: 9.1 cm/sec MV A max gilmer: 93.3 cm/sec E/E' lat: 10.9 E/E' med: 7.8 MV E/A: 0.77 MV V2 max: 101.4 cm/sec MV P1/2t max gilmer: 87.4 cm/sec Ao V2 max: 443.3 cm/sec MV max P.1 mmHg MV P1/2t: 79.0 msec Ao max P.2 mmHg MV V2 mean: 48.6 cm/sec Ao V2 mean: 315.2 cm/sec MV mean P.2 mmHg MV dec slope: 323.7 cm/sec2 Ao mean P.3 mmHg MV V2 VTI: 24.7 cm MVA(P1/2t): 2.8 cm2 Ao V2 VTI: 104.1 cm AV (velocity ratio): 0.17 MVA(VTI): 2.7 cm2 BRYAN(I,D): 0.65 cm2 BRYAN(V,D): 0.53 cm2 LV V1 max: 61.5 cm/sec SV(LVOT): 67.6 ml LV V1 max P.5 mmHg LV V1 mean P.81 mmHg LV V1 mean: 42.1 cm/sec LV V1 VTI: 17.6 cm ECHO/Echo Complete W/ Contrast Interpretation Summary Normal LV size. Left ventricular systolic function is normal. The left ventricular ejection fraction is 65 %. Mild concentric left ventricular hypertrophy. Moderate focal aortic valve calcification. Mean aortic valve gradient 45 mmHg. Severe aortic stenosis. Compared to the previous the gradient has increased. Contrast injection was performed. ___ Ordering Physician: Damaris [place] Referring Physician: Damaris [place] Performed By: Dariel Baig and Student 09/17/24 1208 Date _ Osman Bui MD CC: Dr. Otto Subramanian MD; MARIE Cary ~ Date Dictated: 09/16/241104 Date Transcribed: 09/17/24 120 Poultry Farm Supervisor: Signed [facility] Work Phone: Echo Complete W/ Contraston 09-16-2024 Echo Complete W/ Contrast [facility] [address] [place] [address] Echo Complete W/ Contrast 09/16/241104 MR#: [id number] Acct: [id number] Name: ALEX CARPENTER Rep #: [id number] : 1935 89 From: Osman Bui MD Attending Dr: MARIE Cary Status: REG CLI Ordering Dr: Damaris [place] Date: 08/20 Location: CVS Sex: M C Admitted: Reason For Study Reason For Study: Murmur Procedure This was a 2D Doppler, Color Flow transthoracic echocardiogram. The study was technically difficult. Contrast injection was performed. Exam performed in department. Left Ventricle Normal LV size. Mild concentric left ventricular hypertrophy. Left ventricular systolic function is normal. The left ventricular ejection fraction is 65 %. No regional wall motion abnormalities noted. Right Ventricle Normal RV size. Normal systolic function. Atria Normal left atrium. Normal right atrium. Mitral Valve Normal mitral valve. Tricuspid Valve Normal tricuspid valve. Aortic Valve Trisinus/trileaflet aortic valve. Moderate focal aortic valve calcification. Peak aortic valve gradient 79 mmHg. Mean aortic valve gradient 45 mmHg. Severe aortic stenosis. Pulmonic Valve Normal pulmonic valve. Great Vessels Normal aortic root. The pulmonary artery is normal size. Pericardium/Pleural No pericardial effusion. Medication 22 gauge I.V. with prn adaptor inserted into right arm. Diluted definity 1ml given slow IV push to enhance endocardial definition. MMode/2D Measurements Calculations LVIDd: 4.5 cm IVSd: 1.4 cm LVOT diam: 2.2 cm LVIDs: 2.5 cm LVPWd: 1.3 cm FS: 45.2 % LVOT area: 3.8 cm2 Ao root diam: 3.6 cm LAV(MOD-bp): 55.5 ml LVAd ap4: 40.0 cm2 LA dimension: 4.0 cm LAV(MOD-bp) Indexed: 28.3 ml/m2 LVLd ap4: 8.9 cm LAV(MOD-sp2): 52.7 ml EDV(MOD-sp4): 148.3 ml LAV(MOD-sp4): 47.7 ml EDV(sp4-el): 152.7 ml LVAs ap4: 20.1 cm2 LVLs ap4: 6.9 cm ESV(MOD-sp4): 50.6 ml ESV(sp4-el): 49.8 ml EF(MOD-sp4): 65.9 % EF(sp4-el): 67.4 % SV(MOD-sp4): 97.8 ml SV(sp4-el): 102.9 ml LA A4 area: 19.4 cm2 SI(MOD-sp4): 49.8 ml/m2 TAPSE: 1.8 cm Time Measurements MV dec time: 0.22 sec Doppler Measurements Calculations MV E max gilmer: 71.7 cm/sec Lat Peak E' Gilmer: 6.6 cm/sec Med Peak E' Gilmer: 9.1 cm/sec MV A max gilmer: 93.3 cm/sec E/E' lat: 10.9 E/E' med: 7.8 MV E/A: 0.77 MV V2 max: 101.4 cm/sec MV P1/2t max gilmer: 87.4 cm/sec Ao V2 max: 443.3 cm/sec MV max P.1 mmHg MV P1/2t: 79.0 msec Ao max P.2 mmHg MV V2 mean: 48.6 cm/sec Ao V2 mean: 315.2 cm/sec MV mean P.2 mmHg MV dec slope: 323.7 cm/sec2 Ao mean P.3 mmHg MV V2 VTI: 24.7 cm MVA(P1/2t): 2.8 cm2 Ao V2 VTI: 104.1 cm AV (velocity ratio): 0.17 MVA(VTI): 2.7 cm2 BRYAN(I,D): 0.65 cm2 BRYAN(V,D): 0.53 cm2 LV V1 max: 61.5 cm/sec SV(LVOT): 67.6 ml LV V1 max P.5 mmHg LV V1 mean P.81 mmHg LV V1 mean: 42.1 cm/sec LV V1 VTI: 17.6 cm ECHO/Echo Complete W/ Contrast Interpretation Summary Normal LV size. Left ventricular systolic function is normal. The left ventricular ejection fraction is 65 %. Mild concentric left ventricular hypertrophy. Moderate focal aortic valve calcification. Mean aortic valve gradient 45 mmHg. Severe aortic stenosis. Compared to the previous the gradient has increased. Contrast injection was performed. ___ Ordering Physician: Damaris Lee Referring Physician: Damaris Lee Performed By: Dariel Baig and Student 09/17/24 1208 Date Osman Bui MD CC: Dr. Otto Subramanian MD; MARIE Cary Date Dictated: 09/16/24 1105 Date Transcribed: 09/17/24 1208 [employer] Supervisor: Signed Normal [facility] Cardiovascular stress test r eportOrdered By: Osman Bui on 09-12-2024 Study report [facility] [address] [place] [address] MR#: [id number] Acct: [id number] Name: ALEX CARPENTER Rep #: [id number] : 1935 89 From: Osman Bui MD Primary Care: Dr. Otto Subramanian MD Status: REG CLI Referring Dr: Damaris Lee PA Sex : M C Stress Test Report Pharmacologic myocardial perfusion stress test. 89-year-old man with a history of coronary artery disease Resting EKG demonstrates normal sinus rhythm with a rate of 66 bpm. Resting blood pressure is 148/70 mmHg. 0.4 mg of regadenoson was infused per usual protocol followed by rapid intravenous saline flush injection. Continuous EKG monitoring was performed. The maximum heart rate was 97 bpm which was 73% of max impacted heart rate the maximum workload was 1 metabolic equivalent. At rest there were no ST or T wave changes noted to suggest ischemia and at peak infusion nonspecific ST changes were noted which did not meet the criteria for ischemia. No clinical angina is noted. The final blood pressure was 130/64 mmHg. Myocardial perfusion protocol. 14.8 mCi of technetium 99m sestamibi was injected at rest. 0.4 mg of regadenoson was infused per usual protocol. At peak infusion 44.9 mCi of technetium 99m sestamibi was injected stress images were obtained stress and rest images were reconstructed and compared in the short axis vertical long and horizontal long axis. Gated images were also obtained. Perfusion SPECT analysis: Review of the stress images demonstrate normal uptake of tracer noted in all areas of the myocardium. The resting images similar demonstrated normal uptake of tracer noted in all areas of the myocardium. No areas of reversibility are noted to suggest ischemia and no previous infarct is noted. Gated SPECT analysis: The gated ejection fraction is 67%. Conclusion: Normal pharmacologic myocardial perfusion stress test. Preserved ejection fraction. 09/12/24 1521 Date _ Osman Bui MD CC: Dr. Otto Subramanian MD; MARIE Cary ~ Date Dictated: 09/12/24 152 Date Transcribed: 09/12/241519 [employer] Supervisor: [place] Signed [facility] Work Phone: Stress Reporton 09-12-2024 Stress Report [facility] [address] [place] [address] MR#: [id number] Acct: [id number] Name: ALEX CARPENTER Rep #: [id number] : 1935 89 From: Osman Bui MD Primary Care: Dr. Otto Subramanian MD Status: R EG CLI Referring Dr: Damaris Lee Sex: M C Stress Test Report Pharmacologic myocardial perfusion stress test. 89-year-old man with a history of coronary artery disease Resting EKG demonstrates normal sinus rhythm with a rate of 66 bpm. Resting blood pressure is 148/70 mmHg. 0.4 mg of regadenoson was infused per usual protocol followed by rapid intravenous saline flush injection. Continuous EKG monitoring was performed. The maximum heart rate was 97 bpm which was 73% of max impacted heart rate the maximum workload was 1 metabolic equivalent. At rest there were no ST or T wave changes noted to suggest ischemia and at peak infusion nonspecific ST changes were noted which did not meet the criteria for ischemia. No clinical angina is noted. The final blood pressure was 130/64 mmHg. Myocardial perfusion protocol. 14.8 mCi of technetium 99m sestamibi was injected at rest. 0.4 mg of regadenoson was infused per usual protocol. At peak infusion 44.9 mCi of technetium 99m sestamibi was injected stress images were obtained stress and rest images were reconstructed and compared in the short axis vertical long and horizontal long axis. Gated images were also obtained. Perfusion SPECT analysis: Review of the stress images demonstrate normal uptake of tracer noted in all areas of the myocardium. The resting images similar demonstrated normal uptake of tracer noted in all areas of the myocardium. No areas of reversibility are noted to suggest ischemia and no previous infarct is noted. Gated SPECT analysis: The gated ejection fraction is 67%. Conclusion: Normal pharmacologic myocardial perfusion stress test. Preserved ejection fraction. 09/12/24 1521 Date Osman Bui MD CC: Dr. Otto Subramanian MD; MARIE Cary Date Dictated: 09/12/24 1520 Date Transcribed: 09/12/241519 [employer] Supervisor: [place] Signed Normal [facility] [place] BY IFA WITH REFLEXon Nuclear Ab Ql (S) Negative Normal Negative [facility] Comment on above: Order Comment: Edgard wood Type: BLOOD SPECIMEN Ordering Facility: [facility] Address: [address] [place] [address] Result Comment: Anti -nuclear antibody test is used as an aid in diagnosis of systemic autoimmune diseases. Where positive and clinically warranted, follow-up using disease-specific testing is recommended. Low positive titers are not uncommon with advanced age, certain chronic infections, and malignancies among others. Test methodology: Indirect fluorescence immunoassay (IFA) using HEp-2 cells. Performed By: #### 4 537-7 #### [facility] CLIA [id number] [address] [place] [address] [place] CBC W Auto Differential pane l (Bld)on 08-20-2024 Basophils (Bld) [#/Vol] 0.03 10*3/uL Normal <0.11 [facility] Comment on above: Order Comment: Speci men Type: BLOOD SPECIMENOrdering Facility: [facility] Address: [address] [place] [address] Performed By: #### 5 7021-8 ####[facility] MILLTOWNCLIA [id number] [place] [address] [place] Basophils/100 WBC (Bld) 0.3 % Normal [facility] Comment on above: Order Comment: Speci men Type: BLOOD SPECIMENOrdering Facility: [facility] Address: [address] [place] [address] Performed By: #### 5 7021-8 ####[facility]ITALWNCLIA [id number] [place] [address] [place] Differential cell count method Nom (Bld) Auto Normal [facility] Comment on above: Order Comment: Speci men Type: BLOOD SPECIMENOrdering Facility: [facility] Address: [address] [place] [address] Performed By: #### 5 7021-8 ####[facility]ITALWNCLIA [id number] [place] [address] [place] Eosinophils (Bld) [#/Vol] 0.20 10*3/uL Normal <0.46 [facility] Comment on above: Order Comment: Speci men Type: BLOOD SPECIMENOrdering Facility: [facility] Address: [address] [place] [address] Performed By: #### 5 7021-8 ####[facility] MILLTOWNCLIA [id number] [place] [address] [place] Eosinophils/100 WBC (Bld) 1.9 % Normal [facility] Comment on above: Order Comment: Speci men Type: BLOOD SPECIMENOrdering Facility: [facility] Address: [address] [place] [address] Performed By: #### 5 7021-8 ####[facility] MILLTOWNCLIA [id number] [place] [address] [place] Erythrocyte distribution width (RBC) [Ratio] 13.7 % Normal 11.5-15.0 [facility] Comment on above: Order Comment: Speci men Type: BLOOD SPECIMENOrdering Facility: [facility] Address: [address] [place] [address] Performed By: #### 5 7021-8 ####[facility]PITALJANA [id number] [place] [address] [place] Hematocrit (Bld) [Volume fraction] 39.0 % Normal 39.0-51.0 [facility] Comment on above: Order Comment: Speci men Type: BLOOD SPECIMENOrdering Facility: [facility] Address: [address] [place] [address] Performed By: #### 5 7021-8 ####[facility]OSPITALNCPACO [id number] [place] [address] [place] Hemoglobin (Bld) [Mass/Vol] 13.0 g/dL Normal 13.0-17.0 [facility] Comment on above: Order Comment: Speci men Type: BLOOD SPECIMENOrdering Facility: [facility] Address: [address] [place] [address] Performed By: #### 5 7021-8 ####[facility]ITALJANA [id number] [place] [address] [place] Immature granulocytes (Bld) [#/Vol] 0.08 10*3/uL Normal <0.10 [facility] Comment on above: Order Comment: Speci men Type: BLOOD SPECIMENOrdering Facility: [facility] Address: [address] [place] [address] Performed By: #### 5 7021-8 ####[facility]ITALNCLIA [id number] [place] [address] [place] Immature granulocytes/100 WBC (Bld) 0.8 % Normal [facility] Comment on above: Order Comment: Speci men Type: BLOOD SPECIMENOrdering Facility: [facility] Address: [address] [place] [address] Performed By: #### 5 7021-8 ####[facility] ADRIANAmariNCBIBIANA [id number] [place] [address] [place] Lymphocytes (Bld) [#/Vol] 0.77 10*3/uL Low 1.00-4.00 [facility] Comment on above: Order Comment: Speci men Type: BLOOD SPECIMENOrdering Facility: [facility] Address: [address] [place] [address] Performed By: #### 5 7021-8 ####[facility] [id number] [place] [address] [place] Lymphocytes/100 WBC (Bld) 7.3 % Normal [facility] Comment on above: Order Comment: Speci men Type: BLOOD SPECIMENOrdering Facility: [facility] Address: [address] [place] [address] Performed By: #### 5 7021-8 ####[facility] [id number] [place] [address] [place] MCH (RBC) [Entitic mass] 31.2 pg Normal 26.0-34.0 [facility] Comment on above: Order Comment: Speci men Type: BLOOD SPECIMENOrdering Facility: [facility] Address: [address] [place] [address] Performed By: #### 5 7021-8 ####[facility] [id number] [place] [address] [place] MCHC (RBC) [Mass/Vol] 33.3 g/dL Normal 30.5-36.0 [facility] Comment on above: Order Comment: Speci men Type: BLOOD SPECIMENOrdering Facility: [facility] Address: [address] [place] [address] Performed By: #### 5 7021-8 ####[facility] ADRIANWINCHESTERMASONLIA [id number] [place] [address] [place] MCV (RBC) [Entitic vol] 93.5 fL Normal 80.0-100.0 [facility] Comment on above: Order Comment: Speci men Type: BLOOD SPECIMENOrdering Facility: [facility] Address: [address] [place] [address] Performed By: #### 5 7021-8 ####[facility] HOSPITALLIA [id number] [place] [address] [place] Monocytes (Bld) [#/Vol] 0.67 10*3/uL Normal <0.87 [facility] Comment on above: Order Comment: Speci men Type: BLOOD SPECIMENOrdering Facility: [facility] Address: [address] [place] [address] Performed By: #### 5 7021-8 ####[facility] [id number] [place] [address] [place] Monocytes/100 WBC (Bld) 6.3 % Normal [facility] Comment on above: Order Comment: Speci men Type: BLOOD SPECIMENOrdering Facility: [facility] Address: [address] [place] [address] Performed By: #### 5 7021-8 ####[facility] HOSPITALLIA [id number] [place] [address] [place] Neutrophils (Bld) [#/Vol] 8.85 10*3/uL High 1.45-7.50 [facility] Comment on above: Order Comment: Speci men Type: BLOOD SPECIMENOrdering Facility: [facility] Address: [address] [place] [address] Performed By: #### 5 7021-8 ####[facility] HOSPITALLIA [id number] [place] [address] [place] Neutrophils/100 WBC (Bld) 83.4 % Normal [facility] Comment on above: Order Comment: Speci men Type: BLOOD SPECIMENOrdering Facility: [facility] Address: [address] [place] [address] Performed By: #### 5 7021-8 ####[facility] [id number] [place] [address] [place] Nucleated RBC (Bld) [#/Vol] 10*3/uL Normal <0.01 [facility] Comment on above: Order Comment: Speci men Type: BLOOD SPECIMENOrdering Facility: [facility] Address: [address] [place] [address] Performed By: #### 5 7021-8 ####[facility]ITALNCDEL[facility] [id number] [place] [address] [place] Nucleated RBC/100 WBC (Bld) [Ratio] 0.0 /100 WBC Normal [facility] Comment on above: Order Comment: Speci men Type: BLOOD SPECIMENOrdering Facility: [facility] Address: [address] [place] [address] Performed By: #### 5 7021-8 ####[facility] [id number] [place] [address] [place] Platelet mean volume (Bld) [Entitic vol] 10.0 fL Normal 9.0-12.7 [facility] Comment on above: Order Comment: Speci men Type: BLOOD SPECIMENOrdering Facility: [facility] Address: [address] [place] [address] Performed By: #### 5 7021-8 ####[facility]ITALNCDEL[facility] [id number] [place] [address] [place] Platelets (Bld) [#/Vol] 256 10*3/uL Normal 150-400 [facility] Comment on above: Order Comment: Speci men Type: BLOOD SPECIMENOrdering Facility: [facility] Address: [address] [place] [address] [place] [address] Performed By: #### 5 7021-8 ####[facility] H[facility]PITALWNCLIA [id number] [place] [address] [place] RBC (Bld) [#/Vol] 4.17 10*6/uL Low 4.20-6.00 [facility] Comment on above: Order Comment: Speci men Type: BLOOD SPECIMENOrdering Facility: [facility] Address: [address] [place] [address] Performed By: #### 5 7021-8 ####[facility]ITALNCLIA [id number] [place] [address] [place] WBC (Bld) [#/Vol] 10.60 10*3/uL Normal 3.70-11.00 [facility] Comment on above: Order Comment: Speci men Type: BLOOD SPECIMENOrdering Facility: [facility] Address: [address] [place] [address] Performed By: #### 5 7021-8 ####[facility]ITALNCLIA [id number] [place] [address] [place] CNOVSPon 08-20-2024 OVS Visit (SP) Office (IGOR) ----- ALEX CARPENTER ([id number]) 1935 M Date Time Provider Department 08/20/24 1:00 PM CRISSY MAI During your visit today, we recorded the following information about you: Temperature Pulse Blood pressure Weight 98.5 degrees 83/minute 142/82 84.1 kg Crissy Mai 08/20/2024 3:40 PM Signed Alex Carpenter 1935 08/20/2024 HISTORY OF PRESENT ILLNESS: lAex Carpenter is a 87 year old male diagnosed with prostate cancer in 1998, 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 He had been [...] every 5 minutes as needed.Disp: Rfl: Fish Oil-[place]-3 Fatty Acids 500-300 mg ORAL CapTake by mouth.Disp: Rfl: 0 ergocalciferol, vitamin D2, (VITAMIN D2 ORAL)Take by mouth.Disp: Rfl: (Patient not taking: Reported on 08/20/2024) oxybutynin XL (DITROPAN XL) 5 mg 24 hr tabletTake 1 tablet by mouth once daily.Dis (more content not included)... Normal [facility] Comprehensive metabolic 2000 panelon 08-20-2024 Albumin [Mass/Vol] 3.8 g/dL Low 3.9-4.[address] [facility] Comment on above: Order Comment: Speci men Type: BLOOD SPECIMEN Order[facility] Facility: [facility] Address: [address] [place] [address] Performed By: #### 4 537-7 #### [facility] CLIA [id number] [address] [place] [address] [place] ALP [Catalytic activity/Vol] 103 U/L Normal 38-113 [facility] Comment on above: Order Comment: Speci men Type: BLOOD SPECIMEN Ordering Facility: [facility] Address: [address] [place] [address] Performed By: #### 4 537-7 #### [facility] CLIA [id number] [address] [place] [address] [place] ALT [Catalytic activity/Vol] 11 U/L Normal 10-54 [facility] Comment on above: Order Comment: Speci men Type: BLOOD SPECIMEN Ordering Facility: [facility] Address: [address] [place] [address] Performed By: #### 4 537-7 #### [facility] CLIA [id number] [address] [place] [address] [place] Anion gap [Moles/Vol] 10 mmol/L Normal 8-15 [facility] Comment on above: Order Comment: Speci men Type: BLOOD SPECIMEN Ordering Facility: [facility] Address: [address] [place] [address] Performed By: #### 4 537-7 #### [facility] CLIA [id number] [address] [place] [address] [place] AST [Catalytic activity/Vol] 16 U/L Normal 14-40 [facility] Comment on above: Order Comment: Speci men Type: BLOOD SPECIMEN Ordering Facility: [facility] Address: [address] [place] [address] Performed By: #### 4 537-7 #### [facility] CLIA [id number] [address] [place] [address] [place] Bilirubin [Mass/Vol] 0.7 mg/dL Normal 0.2-1.3 [facility] Comment on above: Order Comment: Speci men Type: BLOOD SPECIMEN Order[facility] Facility[facility] Address: [address] [place] [address] Performed By: #### 4 537-7 #### [facility] CLIA [id number] [address] [place] [address] [place] Calcium [Mass/Vol] 9.0 mg/dL Normal 8.5-10.[address] [facility] Comment on above: Order Comment: Speci men Type: BLOOD SPECIMEN Order[facility] Facility: [facility] Address: [address] [place] [address] Performed By: #### 4 537-7 #### [facility] CLIA [id number] [address] [place] [address] [place] Chloride [Moles/Vol] 104 mmol/L Normal 98-107 [facility] Comment on above: Order Comment: Speci men Type: BLOOD SPECIMEN Order[facility] Facility: [facility] Address: [address] [place] [address] Performed By: #### 4 537-7 #### [facility] CLIA [id number] [address] [place] [address] [place] CO2 [Moles/Vol] 24 mmol/L Normal 22-30 [facility] Comment on above: Order Comment: Speci men Type: BLOOD SPECIMEN Ordering Facility: [facility] Address: [address] [place] [address] Performed By: #### 4 537-7 #### [facility] CLIA [id number] [address] [place] [address] [place] Creatinine [Mass/Vol] 1.21 mg/dL Normal 0.73-1.22 [facility] Comment on above: Order Comment: Speci men Type: BLOOD SPECIMEN Ordering Facility: [facility] Address: [address] [place] [address] Performed By: #### 4 537-7 #### [facility] CLIA [id number] [address] [place] [address] [place] [facility] Creatinine and Glomerular filtration rate.predicted panel (S/P/Bld) 58 mL/min/1.73m??? Low >=60 [facility] Comment on above: Order Comment: Speci men Type: BLOOD SPECIMEN Ordering Facility: [facility] Address: [address] [place] [address] Result Comment: Isabel mated Glomerular Filtration Rate [...] GFR. Performed By: #### 4 537-7 #### [facility] CLIA [id number] [address] [place] [address] [place] Glucose [Mass/Vol] 121 mg/dL High 74-[address] [facility] Comment on above: Order Comment: Speci men Type: BLOOD SPECIMEN Ordering Facility: [facility] Address: [address] [place] [address] Result Comment: The [place] [employer] (ADA) provides guidance for cutoff [...] Standards of Medical Care in Diabetes 2016, [place] [employer]. Diabetes Care. 2016.39(Suppl 1). Performed By: #### 4 537-7 #### [facility] CLIA [id number] [address] [place] [address] [place] Potassium [Moles/Vol] 4.0 mmol/L Normal 3.7-5.1 [facility] Comment on above: Order Comment: Speci men Type: BLOOD SPECIMEN Ordering Facility: [facility] Address: [address] [place] [address] Performed By: #### 4 537-7 #### [facility] CLIA [id number] [address] [place] [address] [place] Protein [Mass/Vol] 6.0 g/dL Low 6.3-8.[address] [facility] Comment on above: Order Comment: Speci men Type: BLOOD SPECIMEN Ordering Facility: [facility] Address: [address] [place] [address] Performed By: #### 4 537-7 #### [facility] CLIA [id number] [address] [place] [address] [place] Sodium [Moles/Vol] 138 mmol/L Normal 136-[address] [facility] Comment on above: Order Comment: Speci men Type: BLOOD SPECIMEN Ordering Facility: [facility] Address: [address] [place] [address] Performed By: #### 4 537-7 #### [facility] [place] [id number] [address] [place] [address] [place] Urea nitrogen [Mass/Vol] 30 mg/dL High 9-24 [facility] Comment on above: Order Comment: Speci men Type: BLOOD SPECIMEN Order[facility] Facility: [facility] Address: [address] [place] [address] Performed By: #### 4 537-7 #### [facility] [place] [id number] [address] [place] [address] [place] ESR Westergren method (Bld) [Velocity]on 08-20-2024 ESR (Bld) [Velocity] 8 mm/h Normal 0-15 [facility] Comment on above: Order Comment: Libradoi men Type: BLOOD SPECIMEN Order[facility] Facility: [facility] Address: [address] [place] [address] Performed By: #### 4 537-7 #### [facility] [place] [id number] [address] [place] [address] [place] HbA1c (Bld)on 08-20-2024 Average glucose Estimated from glycated hemoglobin (Bld) [Mass/Vol] 120 mg/dL Normal [facility] Comment on above: Order Comment: Speci men Type: BLOOD SPECIMEN Ordering Facility: [facility] Address: [address] [place] [address] Result Comment: eAG: (Estimated average glucose) is a calculated value from HgbA1c and is account development representative of the average blood glucose level in the last 2-3 month period. Performed By: #### 5 5454-3 #### [facility] [place] [id number] [address] [place] [address] [place] HbA1c (Bld) [Mass fraction] 5.8 % High 4.3-5.6 [facility] Comment on above: Order Comment: Speci men Type: BLOOD SPECIMEN Ordering Facility: [facility] Address: [address] [place] [address] Result Comment: Amer ican Diabetes Association guidelines indicate that patients with HgbA1c in the range 5.7-6.4% are at increased risk for development of diabetes, and intervention by lifestyle modification may be beneficial. HgbA1c greater or equal to 6.5% is considered diagnostic of diabetes. Performed By: #### 5 5454-3 #### [facility] CLIA [id number] [address] [place] [address] [place] PROTEIN ELECTROPHORESIS SERU M (P)on 08-20-2024 Albumin [Mass/Vol] 3.59 g/dL Normal 3.43-5.[address] [facility] Comment on above: Order Comment: Speci men Type: BLOOD SPECIMENOrdering Facility: [facility] Address: [address] [place] [address] Performed By: #### L [id number] ####[facility] [id number] [place] [address] [place] Alpha 1 globulin Elph [Mass/Vol] 0.27 g/dL Normal 0.18-0.43 [facility] Comment on above: Order Comment: Speci men Type: BLOOD SPECIMENOrdering Facility: [facility] Address: [address] [place] [address] Performed By: #### L [id number] ####[facility] [id number] [place] [address] [place] Alpha 2 globulin Elph [Mass/Vol] 0.62 g/dL Normal 0.42-0.98 [facility] Comment on above: Order Comment: Speci men Type: BLOOD SPECIMENOrdering Facility: [facility] Address: [address] [place] [address] Performed By: #### L [id number] ####[facility] [id number] [place] [id number] [place] Beta globulin Elph [Mass/Vol] 0.68 g/dL Normal 0.61-1.17 [facility] Comment on above: Order Comment: Speci men Type: BLOOD SPECIMENOrdering Facility: [facility] Address: [address] [place], [place] [id number] Performed By: #### L [id number] ####[facility] [id number] [address] [address] [place] Gamma globulin Elph [Mass/Vol] 0.55 g/dL Normal 0.53-1.51 [facility] Comment on above: Order Comment: Speci men Type: BLOOD SPECIMENOrdering Facility: [facility] Address: [address] [place] [address] Performed By: #### L [id number] ####[facility] [id number] [place] [address] [place] M-PROTEIN LOCATION Normal [facility] Comment on above: Order Comment: Speci men Type: BLOOD SPECIMENOrdering Facility: [facility] Address: [address] [place] [address] Result Comment: Not Applicable. Performed By: #### L [id number] ####[facility] [id number] [place] [address] [place] Protein Fractions [Interp] No definitive M protein is identified on protein electrophoresis. Normal No definitive M protein is identified on protein electrophor esis. [facility] Comment on above: Order Comment: Speci men Type: BLOOD SPECIMENOrdering Facility: [facility] Address: [address] [place] [address] Performed By: #### L [id number] ####[facility] [id number] [place] [id number] [place] Protein.monoclonal Elph [Mass/Vol] 0.00 g/dL Normal <=0.00 [facility] Comment on above: Order Comment: Speci men Type: BLOOD SPECIMENOrdering Facility: [facility] Address: [address] [place], [place] [id number] Performed By: #### L [id number] ####[facility] [id number] [place] [id number] [place] SPE STAFF REVIEW Reviewed by Alexander Sandoval MD, Ph.D ([id number]) Normal [facility] Comment on above: Order Comment: Speci men Type: BLOOD SPECIMENOrdering Facility: [facility] Address: [address] [place] [address] Performed By: #### L [id number] ####[facility] [id number] [place] [id number] [place] PSA SerPl-mCncon 08-20-2024 Prostate specific Ag [Mass/Vol] 0.10 ng/mL Normal <2.60 [facility] Comment on above: Order Comment: Speci men Type: BLOOD SPECIMEN Ordering Facility: [facility] Address: [address] [place] [address] Result Comment: Tota l PSA test methodology used is the Electrochemiluminescence Immunoassay by [employer]. Total PSA values by differing methodologies cannot be interchanged. Performed By: #### 4 537-7 #### [facility] CLIA [id number] [address] [place] [address] [place] Prot SerPl-mCncon 08-20-2024 Protein [Mass/Vol] 5.7 g/dL Low 6.3-8.[address] [facility] Comment on above: Order Comment: Speci men Type: BLOOD SPECIMENOrdering Facility: [facility] Address: [address] [place] [address] Performed By: #### 2 885-2, 2132-9, 3016-3, 3024-7 ####[facility] [id number] [place] [address] [place] T4 Free SerPl-mCncon 025 Free T4 [Mass/Vol] 1.3 ng/dL Normal 0.9-1.[address] [facility] Comment on above: Order Comment: Speci men Type: BLOOD SPECIMENOrdering Facility: [facility] Address: [address] [place], [place] [id number] Performed By: #### 2 885-2, 9, 3, 7 ####[facility] [id number] [address] [address] [place] TSH SerPl-aCncon 08-20-2024 TSH Qn 2.530 m[IU]/L Normal 0.270-4.200 [facility] Comment on above: Order Comment: Speci men Type: BLOOD SPECIMENOrdering Facility: [facility] Address: [address] [place], [place] [address] Performed By: #### 2 885-2, 2131-11, 3, 7 ####[facility] [id number] [address] [address] [place] Vit B12 SerPl-mCncon 025 Cobalamin (Vitamin B12) [Mass/Vol] 364 pg/mL Normal 232-1245 [facility] Comment on above: Order Comment: Speci men Type: BLOOD SPECIMENOrdering Facility: [facility] Address: [address] [place], [place] [address] Performed By: #### 2 885-2, 2131-11, 3, 7 ####[facility] [id number] [place] [id number] [place] Bilirubin directOrdered By: Damaris Lee on 06-27-2024 Bilirubin.direct [Mass/Vol] 0.18 mg/dL 0.00-0.30 [facility] Bilirubin, totalOrdered By: Damaris Lee on 06-27-2024 Bilirubin [Mass/Vol] 0.39 mg/dL 0.00-1.30 [facility] Calculated very low density lipoprotein (VLDL) cholesterol measurementOrdered By: Damaris Lee on 06-27-2024 Calculated very low density lipoprotein (VLDL) cholesterol measurement 23 mg/dL [facility] VLDL Cholesterol 23 mg/dL [facility] Cardiology Visit Reporton Cardiology Visit Report [facility] [address] [place], [place] [address] OFFICE VISIT Date of Service: 06/27/24 MR#: [id number] Acct: [id number] Name: ALEX CARPENTER Rep #: [id number] : 1935 Provider: MARIE Sheridan Age/Sex: 88/M Location[place] [facility] Status: Signed HPI HPI History of Present [...] 97 Intake Visit Reasons: 6 M FU Family Law Paralegal Required: No Is patient in pain?: No Allergies lisinopril Adverse Reaction (Severe, Verified 01/24/24 02:41) cough Medications ???Medication ???Instructions ???Recorded ???Confirmed ???Type aspirin 81 mg tablet,delayed 81 mg PO QDAY 11/06/17 06/27/24 Hi story release ydrnhtlhkye-whczomlzb-hmk C-Mn 750 1 ea PO DAILY 05/19/19 [...] PO DAILY 01/24/24 06/27/24 History (CoQ-10) omega 4-rwt-ini-fish oil 300 1 cap PO DAILY 01/24/24 [...] murmur Hyperlipidemia Hypertension 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 Normal [facility] LDL calc ser/plasOrdered By: Damaris Lee on 06-27-2024 Cholesterol in LDL [Mass/Vol] 63 mg/dL [facility] Comment on above: Qrzvzxjlro=357-574 m g/dL & Higher Pbbx=405 mg/dL or greater LDL Cholesterol, Calculated 63 mg/dL [facility] Comment on above: Srcoonaxvn=772-149 m g/dL & Higher Lcto=025 mg/dL or greater Laboratory - Chemistry and C hemistry - challengeOrdered By: Damaris Lee on 06-27-2024 AST [Catalytic activity/Vol] 22 U/L <38 [facility] Lipid Profileon 06-27-2024 CHOL:HDL 2.65 Normal [facility] Comment on above: Order Comment: Comme nts: okay to do non fasting Performed By: #### L 500.4100, L500.3400 ####[facility] [address] [place], [address] Cholesterol [Mass/Vol] 137 mg/dL Normal <=200 [facility] Comment on above: Order Comment: Comme nts: okay to do non fasting Result Comment: Chol esterol level, Desirable <200 mg/dL Borderline high cholesterol 200-239 mg/dL High cholesterol >=240 mg/dL Recommendations of the NCEP Adult Treatment Panel for the following risk-cutoff thresholds for the [place] population. Performed By: #### L 500.4100, L500.3400 ####[facility] [address] [place], [address] Cholesterol in HDL [Mass/Vol] 52 mg/dL Normal [facility] Comment on above: Order Comment: Comme nts: okay to do non fasting Result Comment: Arleen onal Cholesterol Education Program (NCEP) guidelines: <40 mg/dL: Low HDL-cholesterol (major risk factor for CHD) >= 60 mg/dL: High HDL-cholesterol (negative risk factor for CHD) HDL-cholesterol is affected by a number of factors, e.g. smoking, exercise, hormones, sex and age. Performed By: #### L 500.4100, L500.3400 ####[facility] [address] [place], [address] Cholesterol in LDL [Mass/Vol] 63 mg/dL Normal [facility] Comment on above: Order Comment: Comme nts: okay to do non fasting Result Comment: Bord vlwang=321-210 mg/dL Higher Lbfy=803 mg/dL or greater Performed By: #### L 500.4100, L500.3400 ####[facility] [address] [place], [address] Cholesterol in VLDL [Mass/Vol] 23 mg/dL Normal 5-40 [facility] Comment on above: Order Comment: Comme nts: okay to do non fasting Performed By: #### L 500.4100, L500.3400 ####[facility] [address] [place], [address] Triglyceride [Mass/Vol] 114 mg/dL Normal [facility] Comment on above: Order Comment: Comme nts: okay to do non fasting Result Comment: The drugs N-Acetylcysteine and Metamizole may falsely depress this assay. Normal range: <150 mg/dL Borderline High: 150-199 mg/dL High: 200-499 mg/dL Very High: >500 mg/dL Performed By: #### L 500.4100, L500.3400 ####[facility] [address] [place], [address] Liver Profileon 06-27-2024 Albumin [Mass/Vol] 3.8 g/dL Normal 3.4-4.8 [facility] Comment on above: Order Comment: Comme nts: okay to do non fastingokay to do non fasting Performed By: #### L 500.4100, L500.3400 ####[facility] [address] [place], [address] ALK PHOS 78 U/L Normal 40-129 [facility] Comment on above: Order Comment: Comme nts: okay to do non fastingokay to do non fasting Performed By: #### L 500.4100, L500.3400 ####[facility] [address] [place], [address] ALT [Catalytic activity/Vol] 12 U/L Normal <=46 [facility] Comment on above: Order Comment: Comme nts: okay to do non fastingokay to do non fasting Performed By: #### L 500.4100, L500.3400 ####[facility] [address] [place], [address] AST [Catalytic activity/Vol] 22 U/L Normal <=37 [facility] Comment on above: Order Comment: Comme nts: okay to do non fastingokay to do non fasting Performed By: #### L 500.4100, L500.3400 ####[facility] [address] [place], [address] Bilirubin [Mass/Vol] 0.39 mg/dL Normal 0.00-1.30 [facility] Comment on above: Order Comment: Comme nts: okay to do non fastingokay to do non fasting Performed By: #### L 500.4100, L500.3400 ####[facility] [address] [place], [address] Bilirubin.direct [Mass/Vol] 0.18 mg/dL Normal 0.00-0.30 [facility] Comment on above: Order Comment: Comme nts: okay to do non fastingokay to do non fasting Performed By: #### L 500.4100, L500.3400 ####[facility] [address] [place], [address] Globulin (S) [Mass/Vol] 2.4 g/dL Normal 2.2-4.2 [facility] Comment on above: Order Comment: Comme nts: okay to do non fastingokay to do non fasting Performed By: #### L 500.4100, L500.3400 ####[facility] [address] [place], [address] T PROT 6.2 g/dL Normal 5.9-8.4 [facility] Comment on above: Order Comment: Comme nts: okay to do non fastingokay to do non fasting Performed By: #### L 500.4100, L500.3400 ####[facility] [address] [place], [address] Screening total cholesterol/ high density lipoprotein (HDL) cholesterol ratioOrdered By: Damaris Lee on 06-27-2024 Cholesterol.total/Choles terol in HDL [Mass ratio] 2.65 {ratio} [facility] Serum globulin measurementOr dered By: Damaris Lee on 06-27-2024 Globulin (S) [Mass/Vol] 2.4 g/dL 2.2-4.2 [facility] Serum or plasma alanine workman otransferase (ALT) measurementOrdered By: Damaris Lee on 06-27-2024 ALT [Catalytic activity/Vol] 12 U/L <47 [facility] Serum or plasma albumin lilly urement (mass/volume)Ordered By: Damaris Lee on 06-27-2024 Albumin [Mass/Vol] 3.8 g/dL 3.4-4.8 [facility] Serum or plasma alkaline fiordaliza sphatase measurementOrdered By: Damaris Lee on 06-27-2024 ALP [Catalytic activity/Vol] 78 U/L 40-129 [facility] Serum or plasma cholesterol in HDL measurement (mass/volume)Ordered By: Damaris Lee on 06-27-2024 Cholesterol in HDL [Mass/Vol] 52 mg/dL >40 [facility] Comment on above: National Cholesterol Education Program (NCEP) guidelines:<40 mg/dL: Low HDL-cholesterol (major risk factor for CHD)>= 60 mg/dL: High HDL-cholesterol (negative risk factor for CHD)HDL-cholesterol is affected by a number of factors, e.g. smoking, exercise, hormones, sex and age. Serum or plasma cholesterol measurement (mass/volume)Ordered By: Damaris Lee on 06-27-2024 Cholesterol [Mass/Vol] 137 mg/dL <201 [facility] Comment on above: Cholesterol level, D esirable <200 mg/dLBorderline high cholesterol 200-239 mg/dLHigh cholesterol >=240 mg/dLRecommendations of the NCEP Adult Treatment Panel for the following risk-cutoff thresholds for the [place] population. Total proteinOrdered By: Quincy Lee on 06-27-2024 Protein [Mass/Vol] 6.2 g/dL 5.9-8.4 [facility] Triglycerides measurementOrd ered By: Damaris Lee on 06-27-2024 Triglyceride [Mass/Vol] 114 mg/dL <199 [facility] Comment on above: The drugs N-Acetylcy steine and Metamizole may falsely depress this assay. Normal range: <150 mg/dLBorderline High: 150-199 mg/dLHigh: 200-499 mg/dLVery High: >500 mg/dL CNOVon 06-18-2024 CNOV Office Visit ([facility] ) ----- ALEX CARPENTER ([id number]) 1935 M Date Time Provider Department 06/18/24 1:45 PM LEISA ROBB During your visit today, we recorded the following information about you: Pulse Blood pressure 82/minute 123/73 Leisa Robb PA-C 06/18/2024 2:43 PM Signed [facility] Name: Alex Carpenter Age: [...] -- brain and L spine at [facility] (more content not included)... Normal [facility] MR Brain WO and W contrast I Von 06-04-2024 * * *Final Report* * * DATE OF EXAM: Jun 04 2024 10:35AM [facility] 0295 - MRI BRAIN WO/W IVCON [...] with contrast including diffusion images. Intracranial 3D yqxk-cw-lyjvxl MRA with post-processing performed at the modality [...] may be retrograde. DIVISION OF RADIOLOGY Provider, [facility] - 06/04/2024 * * *Final Report* * * DATE OF EXAM: Jun 04 2024 10:35AM [facility] 0295 - MRI BRAIN WO/W IVCON [...] with contrast including diffusion images. Intracranial 3D ctzb-qa-tsxigr MRA with post-processing performed at the modality [...] LEFT ICA origin stenosis. Patent intracranial circulation. [employer]oultry [employer] Supervisor: BLESSING Transcribe Date/Time: Jun 04 2024 10:48A Dictated by : BRITTANIE MURCIA MD This examination was interpreted and the report reviewed and electronically signed by: BRITTANIE MURCIA MD on Jun 04 2024 11:12AM EST [facility] MR Lumbar spine WO and W con trast Alisa 06-04-2024 IMPRESSION: Degenerative changes at multiple levels most severe at L3-L4 as itemized above. Anatomic Lumbar Variant: None. L4-5 is considered the level of the iliac crest and assume there are 5 lumbar-type vertebrae. [employer]oultry [employer] Supervisor: BLESSING Transcribe Date/Time: Jun 04 2024 11:13A Dictated by : BRITTANIE MURCIA MD This examination was interpreted and the report reviewed and electronically signed by: BRITTANIE MURCIA MD on Jun 04 2024 11:17AM [facility] DIVISION OF RADIOLOGY * * *Final Report* * * DATE OF EXAM: Jun 04 2024 10:35AM [facility] 0304 - MRI LUMBAR SPINE WO/W [...] within normal limits. DIVISION OF RADIOLOGY Provider, [facility] - 06/04/2024 * * *Final Report* * * DATE OF EXAM: Jun 04 2024 10:35AM [facility] 0304 - MRI LUMBAR SPINE WO/W [...] and assume there are 5 lumbar-type vertebrae. [employer]oultry [employer] Supervisor: BLESSING Transcribe Date/Time: Jun 04 2024 11:13A Dictated by : BRITTANIE MURCIA MD This examination was interpreted and the report reviewed and electronically signed by: BRITTANIE MURCIA MD on Jun 04 2024 11:17AM EST [facility] Radiology Study observation (narrative) [facility] MR Lumbar spine WO and W con trast IVOrdered By: [facility] Provider on 06-04-2024 [facility] MRA BRAIN WO IVCONon 025 MRA BRAIN WO IVCON * * *Final Report* * * DATE OF EXAM: Jun 04 2024 10:35AM [facility] 0272 - MRA BRAIN WO IVCON [...] with contrast including diffusion images. Intracranial 3D eeuu-fm-lkonzg MRA with post-processing performed at the modality [...] LEFT ICA origin stenosis. Patent intracranial circulation. [employer]oultry [employer] Supervisor: PSCB Transcribe Date/Time: Jun 04 2024 10:48A Dictated by : BRITTANIE MURCIA MD This examination was interpreted and the report reviewed and electronically signed by: BRITTANIE MURCIA MD on Jun 04 2024 11:12AM EST [id number] Normal [facility] MRA CAROTID WO IVCONon 06-04 MRA CAROTID WO IVCON * * *Final Report* * * DATE OF EXAM: Jun 04 2024 10:35AM [facility] 0275 - MRA CAROTID WO IVCON [...] with contrast including diffusion images. Intracranial 3D phdy-gc-hutzpy MRA with post-processing performed at the modality [...] LEFT ICA origin stenosis. Patent intracranial circulation. [employer] Supervisor: [employer] Transcribe Date/Time: Jun 04 2024 10:48A Dictated by : BRITTANIE MURCIA MD This examination was interpreted and the report reviewed and electronically signed by: BRITTANIE MURCIA MD on Jun 04 2024 11:12AM EST [id number] Normal [facility] MRA Head vessels WO contrast on 06-04-2024 * * *Final Report* * * DATE OF EXAM: Jun 04 2024 10:35AM [facility] 0272 - MRA BRAIN WO IVCON [...] with contrast including diffusion images. Intracranial 3D hgxl-xk-zcfrlu MRA with post-processing performed at the modality [...] may be retrograde. DIVISION OF RADIOLOGY Provider, [facility] - 06/04/2024 * * *Final Report* * * DATE OF EXAM: Jun 04 2024 10:35AM [facility] 0272 - MRA BRAIN WO IVCON [...] with contrast including diffusion images. Intracranial 3D hhff-gu-tmsokb MRA with post-processing performed at the modality [...] LEFT ICA origin stenosis. Patent intracranial circulation. [employer] Supervisor: PSC[employer] Transcribe Date/Time: Jun 04 2024 10:48A Dictated by : BRITTANIE MURCIA MD This examination was interpreted and the report reviewed and electronically signed by: BRITTANIE MURCIA MD on Jun 04 2024 11:12AM EST [facility] MRA Neck vessels WO contrast on 06-04-2024 * * *Final Report* * * DATE OF EXAM: Jun 04 2024 10:35AM [facility] 0275 - MRA CAROTID WO IVCON [...] with contrast including diffusion images. Intracranial 3D wiwi-xd-fvhssg MRA with post-processing performed at the modality [...] may be retrograde. DIVISION OF RADIOLOGY Provider, Yajaira Morrison [facility] - 06/04/2024 * * *Final Report* * * DATE OF EXAM: Jun 04 2024 10:35AM [facility] 0275 - MRA CAROTID WO IVCON / PROCEDURE REASON: Other symptoms and signs involving the nervous system * * * * Physician Interpretation * * * * EXAMINATION: MRI BRAIN WO/W IVCON, MRA BRAIN WO IVCON, MRA CAROTID WO IVCON HISTORY: Other symptoms and signs involving the nervous system TECHNIQUE: Routine MRI brain protocol without and with contrast including diffusion images. Intracranial 3D wmnb-fe-msixnu MRA with post-processing performed at the modality [...] LEFT ICA origin stenosis. Patent intracranial circulation. 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 Intracranial 3D udyc-yz-aqcjuf MRA with post-processing performed at the modality [...] LEFT ICA origin stenosis. Patent intracranial circulation. [employer] Supervisor: P[employer] Transcribe Date/Time: Jun 04 2024 10:48A Dictated by : BRITTANIE MURCIA MD This examination was interpreted and the report reviewed and electronically signed by: BRITTANIE MURCIA MD on Jun 04 2024 11:12AM EST [id number] Normal [facility] MRI LUMBAR SPINE WO/W IVCONo n 06-04-2024 MRI LUMBAR SPINE WO/W IVCON * * *Final Report* * * DATE OF EXAM: Jun 04 2024 10:35AM [facility] 0304 - MRI LUMBAR SPINE WO/W [...] and assume there are 5 lumbar-type vertebrae. Poultry Farm Supervisor: [facility] Transcribe Date/Time: Jun 04 2024 11:13A Dictated by : BRITTANIE MURCIA MD This examination was interpreted and the report reviewed and electronically signed by: BRITTANIE MURCIA MD on Jun 04 2024 11:17AM EST [id number] Normal [facility] No Panel Informationon 06-04 IMPRESSION: No acute intracranial process. 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 Patent intracranial circulation. [employer] Supervisor: [facility] Transcribe Date/Time: Jun 04 2024 10:48A Dictated by : BRITTANIE MURCIA MD This examination was interpreted and the report reviewed and electronically signed by: BRITTANIE MURCIA MD on Jun 04 2024 11:12AM EST DIVISION OF RADIOLOGY Radiology Study observation (narrative) [facility] No Panel InformationOrdered By: Ccf Provider on 06-04-2024 [facility] CBC W Auto Differential pane l (Bld)on 05-28-2024 Basophils (Bld) [#/Vol] 0.05 10*3/uL Normal <0.11 [facility] Comment on above: Order Comment: Speci men Type: BLOOD SPECIMEN Ordering Facility: [facility] Address: [address] [place] [address] Performed By: #### 4 537-7 #### [facility] CLIA [id number] [address] [place] [address] [place] Basophils/100 WBC (Bld) 0.3 % Normal [facility] Comment on above: Order Comment: Speci men Type: BLOOD SPECIMEN Ordering Facility: [facility] Address: [address] [place] [address] Performed By: #### 4 537-7 #### [facility] CLIA [id number] [address] [place] [address] [place] Differential cell count method Nom (Bld) Auto Normal [facility] Comment on above: Order Comment: Speci men Type: BLOOD SPECIMEN Ordering Facility: [facility] Address: [address] [place] [address] Performed By: #### 4 537-7 #### [facility] CLIA [id number] [address] [place] [address] [place] Eosinophils (Bld) [#/Vol] 0.06 10*3/uL Normal <0.46 [facility] Comment on above: Order Comment: Speci men Type: BLOOD SPECIMEN Ordering Facility: [facility] Address: [address] [place] [address] Performed By: #### 4 537-7 #### [facility] CLIA [id number] [address] [place] [address] [place] Eosinophils/100 WBC (Bld) 0.4 % Normal [facility] Comment on above: Order Comment: Speci men Type: BLOOD SPECIMEN Ordering Facility: [facility] Address: [address] [place] [address] Performed By: #### 4 537-7 #### [facility] CLIA [id number] [address] [place] [address] [place] Erythrocyte distribution width (RBC) [Ratio] 12.9 % Normal 11.5-15.0 [facility] Comment on above: Order Comment: Speci men Type: BLOOD SPECIMEN Ordering Facility: [facility] Address: [address] [place] [address] Performed By: #### 4 537-7 #### [facility] CLIA [id number] [address] [place] [address] [place] Hematocrit (Bld) [Volume fraction] 40.9 % Normal 39.0-51.0 [facility] Comment on above: Order Comment: Speci men Type: BLOOD SPECIMEN Ordering Facility: [facility] Address: [address] [place] [address] Performed By: #### 4 537-7 #### [facility] CLIA [id number] [address] [place], [place] [address] [place] Hemoglobin (Bld) [Mass/Vol] 13.7 g/dL Normal 13.0-17.0 [facility] Comment on above: Order Comment: Speci men Type: BLOOD SPECIMEN Ordering Facility: [facility] Address: [address] [place] [address] Performed By: #### 4 537-7 #### [facility] CLIA [id number] [address] [place] [address] [place] Immature granulocytes (Bld) [#/Vol] 0.11 10*3/uL High <0.10 [facility] Comment on above: Order Comment: Speci men Type: BLOOD SPECIMEN Ordering Facility: [facility] Address: [address] [place] [address] Performed By: #### 4 537-7 #### [facility] CLIA [id number] [address] [place] [address] [place] Immature granulocytes/100 WBC (Bld) 0.7 % Normal [facility] Comment on above: Order Comment: Speci men Type: BLOOD SPECIMEN Ordering Facility: [facility] Address: [address] [place] [address] Performed By: #### 4 537-7 #### [facility] CLIA [id number] [address] [place] [address] [place] Lymphocytes (Bld) [#/Vol] 0.86 10*3/uL Low 1.00-4.00 [facility] Comment on above: Order Comment: Speci men Type: BLOOD SPECIMEN Ordering Facility: [facility] Address: [address] [place] [address] Performed By: #### 4 537-7 #### [facility] CLIA [id number] [address] [place] [address] [place] Lymphocytes/100 WBC (Bld) 5.7 % Normal [facility] Comment on above: Order Comment: Speci men Type: BLOOD SPECIMEN Ordering Facility: [facility] Address: [address] [place] [address] Performed By: #### 4 537-7 #### [facility] CLIA [id number] [address] [place] [address] [place] MCH (RBC) [Entitic mass] 31.1 pg Normal 26.0-34.0 [facility] Comment on above: Order Comment: Speci men Type: BLOOD SPECIMEN Ordering Facility: [facility] Address: [address] [place] [address] Performed By: #### 4 537-7 #### [facility] CLIA [id number] [address] [place] [address] [place] MCHC (RBC) [Mass/Vol] 33.5 g/dL Normal 30.5-36.0 [facility] Comment on above: Order Comment: Speci men Type: BLOOD SPECIMEN Ordering Facility: [facility] Address: [address] [place] [address] Performed By: #### 4 537-7 #### [facility] CLIA [id number] [address] [place] [address] [place] MCV (RBC) [Entitic vol] 93.0 fL Normal 80.0-100.0 [facility] Comment on above: Order Comment: Speci men Type: BLOOD SPECIMEN Ordering Facility: [facility] Address: [address] [place] [address] Performed By: #### 4 537-7 #### [facility] CLIA [id number] [address] [place] [address] [place] Monocytes (Bld) [#/Vol] 1.09 10*3/uL High <0.87 [facility] Comment on above: Order Comment: Speci men Type: BLOOD SPECIMEN Ordering Facility: [facility] Address: [address] [place] [address] Performed By: #### 4 537-7 #### [facility] CLIA [id number] [address] [place] [address] [place] Monocytes/100 WBC (Bld) 7.2 % Normal [facility] Comment on above: Order Comment: Speci men Type: BLOOD SPECIMEN Ordering Facility: [facility] Address: [address] [place] [address] Performed By: #### 4 537-7 #### [facility] CLIA [id number] [address] [place] [address] [place] Neutrophils (Bld) [#/Vol] 12.88 10*3/uL High 1.45-7.50 [facility] Comment on above: Order Comment: Speci men Type: BLOOD SPECIMEN Ordering Facility: [facility] Address: [address] [place] [address] Performed By: #### 4 537-7 #### [facility] CLIA [id number] [address] [place] [address] [place] Neutrophils/100 WBC (Bld) 85.7 % Normal [facility] Comment on above: Order Comment: Speci men Type: BLOOD SPECIMEN Ordering Facility: [facility] Address: [address] [place] [address] Performed By: #### 4 537-7 #### [facility] CLIA [id number] [address] [place] [address] [place] Nucleated RBC (Bld) [#/Vol] 10*3/uL Normal <0.01 [facility] Comment on above: Order Comment: Speci men Type: BLOOD SPECIMEN Ordering Facility: [facility] Address: [address] [place] [address] Performed By: #### 4 537-7 #### [facility] CLIA [id number] [address] [place] [address] [place] Nucleated RBC/100 WBC (Bld) [Ratio] 0.0 /100 WBC Normal [facility] Comment on above: Order Comment: Speci men Type: BLOOD SPECIMEN Ordering Facility: [facility] Address: [address] [place] [address] Performed By: #### 4 537-7 #### [facility] CLIA [id number] [address] [place] [address] [place] Platelet mean volume (Bld) [Entitic vol] 10.1 fL Normal 9.0-12.7 [facility] Comment on above: Order Comment: Speci men Type: BLOOD SPECIMEN Ordering Facility: [facility] Address: [address] [place] [address] Performed By: #### 4 537-7 #### [facility] CLIA [id number] [address] [place] [address] [place] Platelets (Bld) [#/Vol] 329 10*3/uL Normal 150-400 [facility] Comment on above: Order Comment: Speci men Type: BLOOD SPECIMEN Ordering Facility: [facility] Address: [address] [place] [address] Performed By: #### 4 537-7 #### [facility] CLIA [id number] [address] [place] [address] [place] RBC (Bld) [#/Vol] 4.40 10*6/uL Normal 4.20-6.00 [facility] Comment on above: Order Comment: Speci men Type: BLOOD SPECIMEN Ordering Facility: [facility] Address: [address] [place] [address] Performed By: #### 4 537-7 #### [facility] CLIA [id number] [address] [place] [address] [place] WBC (Bld) [#/Vol] 15.05 10*3/uL High 3.70-11.00 [facility] Comment on above: Order Comment: Speci men Type: BLOOD SPECIMEN Ordering Facility: [facility] Address: [address] [place] [address] Performed By: #### 4 537-7 #### [facility] CLIA [id number] [address] [place] [address] [place] [id number] [facility] CNOVSPon 05-28-2024 CNOVSP Visit (SP) Office (HEMAWS) ----- ALEX CARPENTER ([id number]) 1935 M Date Time Provider Department 05/28/24 [...] tablets (180mg) by mouth once daily. Fish Oil-Oakham-3 Fatty Acids 500-300 mg ORAL Cap Take by mouth. (Patient not taking: Reported on 05/28/2024) REVIEW OF SYSTEMS: GENERAL: No fever, night sweats, weight loss or malaise. All other reviewed an (more content not included)... Normal [facility] Comprehensive metabolic 2000 panelon 05-28-2024 Albumin [Mass/Vol] 4.1 g/dL Normal 3.9-4.[address] [facility] Comment on above: Order Comment: Speci men Type: BLOOD SPECIMEN Ordering Facility: [facility] Address: [address] [place] [address] Performed By: #### 4 537-7 #### [facility] CLIA [id number] [address] [place] [address] [place] ALP [Catalytic activity/Vol] 89 U/L Normal 38-113 [facility] Comment on above: Order Comment: Speci men Type: BLOOD SPECIMEN Ordering Facility: [facility] Address: [address] [place] [address] Performed By: #### 4 537-7 #### [facility] CLIA [id number] [address] [place] [address] [place] ALT [Catalytic activity/Vol] 9 U/L Low 10-54 [facility] Comment on above: Order Comment: Speci men Type: BLOOD SPECIMEN Ordering Facility: [facility] Address: [address] [place] [address] Performed By: #### 4 537-7 #### [facility] CLIA [id number] [address] [place] [address] [place] Anion gap [Moles/Vol] 11 mmol/L Normal 8-15 [facility] Comment on above: Order Comment: Speci men Type: BLOOD SPECIMEN Ordering Facility: [facility] Address: [address] [place] [address] Performed By: #### 4 537-7 #### [facility] CLIA [id number] [address] [place] [address] [place] AST [Catalytic activity/Vol] 17 U/L Normal 14-40 [facility] Comment on above: Order Comment: Speci men Type: BLOOD SPECIMEN Ordering Facility: [facility] Address: [address] [place] [address] Performed By: #### 4 537-7 #### [facility] CLIA [id number] [address] [place] [address] [place] Bilirubin [Mass/Vol] 0.8 mg/dL Normal 0.2-1.3 [facility] Comment on above: Order Comment: Speci men Type: BLOOD SPECIMEN Ordering Facility: [facility] Address: [address] [place] [address] Performed By: #### 4 537-7 #### [facility] CLIA [id number] [address] [place] [address] [place] Calcium [Mass/Vol] 9.4 mg/dL Normal 8.5-10.[address] [facility] Comment on above: Order Comment: Speci men Type: BLOOD SPECIMEN Ordering Facility: [facility] Address: [address] [place] [address] Performed By: #### 4 537-7 #### [facility] CLIA [id number] [address] [place] [address] [place] Chloride [Moles/Vol] 101 mmol/L Normal 98-107 [facility] Comment on above: Order Comment: Speci men Type: BLOOD SPECIMEN Ordering Facility: [facility] Address: [address] [place] [address] Performed By: #### 4 537-7 #### [facility] CLIA [id number] [address] [place] [address] [place] CO2 [Moles/Vol] 26 mmol/L Normal 22-30 [facility] Comment on above: Order Comment: Speci men Type: BLOOD SPECIMEN Ordering Facility: [facility] Address: [address] [place] [address] Performed By: #### 4 537-7 #### [facility] CLIA [id number] [address] [place] [address] [place] Creatinine [Mass/Vol] 1.02 mg/dL Normal 0.73-1.22 [facility] Comment on above: Order Comment: Speci men Type: BLOOD SPECIMEN Ordering Facility: [facility] Address: [address] [place] [address] Performed By: #### 4 537-7 #### [facility] CLIA [id number] [address] [place] [address] [place] Creatinine and Glomerular filtration rate.predicted panel (S/P/Bld) 71 mL/min/1.73m??? Normal >=60 [facility] Comment on above: Order Comment: Speci men Type: BLOOD SPECIMEN Ordering Facility: [facility] Address: [address] [place] [address] Result Comment: Isabel mated Glomerular Filtration Rate [...] GFR. Performed By: #### 4 537-7 #### [facility] CLIA [id number] [address] [place], [place] [address] [place] Glucose [Mass/Vol] 132 mg/dL High 74-[address] [facility] Comment on above: Order Comment: Edgard wood Type: BLOOD SPECIMEN Ordering Facility: [facility] Address: [address] [place] [address] Result Comment: The [place] Diabetes Association (ADA) provides guidance for cutoff [...] Standards of Medical Care in Diabetes 2016, [place] [employer]. Diabetes Care. 2016.39(Suppl 1). Performed By: #### 4 537-7 #### [facility] CLIA [id number] [address] [place], [place] [address] [place] Potassium [Moles/Vol] 3.4 mmol/L Low 3.7-5.1 [facility] Comment on above: Order Comment: Edgard wood Type: BLOOD SPECIMEN Ordering Facility: [facility] Address: [address] [place] [address] Performed By: #### 4 537-7 #### [facility] CLIA [id number] [address] [place] [address] [place] Protein [Mass/Vol] 6.8 g/dL Normal 6.3-8.[address] [facility] Comment on above: Order Comment: Speci men Type: BLOOD SPECIMEN Ordering Facility: [facility] Address: [address] [place] [address] Performed By: #### 4 537-7 #### [facility] CLIA [id number] [address] [place] [address] [place] Sodium [Moles/Vol] 138 mmol/L Normal 136-[address] [facility] Comment on above: Order Comment: Speci men Type: BLOOD SPECIMEN Ordering Facility: [facility] Address: [address] [place] [address] Performed By: #### 4 537-7 #### [facility] CLIA [id number] [address] [place] [address] [place] Urea nitrogen [Mass/Vol] 25 mg/dL High 9-24 [facility] Comment on above: Order Comment: Speci men Type: BLOOD SPECIMEN Ordering Facility: [facility] Address: [address] [place] [address] Performed By: #### 4 537-7 #### [facility] CLIA [id number] [address] [place] [address] [place] PSA SerPl-mCncon 05-28-2024 Prostate specific Ag [Mass/Vol] 0.14 ng/mL Normal <2.60 [facility] Comment on above: Order Comment: Speci men Type: BLOOD SPECIMEN Ordering Facility: [facility] Address: [address] [place] [address] Result Comment: Tota l PSA test methodology used is the Electrochemiluminescence Immunoassay by [employer]. Total PSA values by differing methodologies cannot be interchanged. Performed By: #### 4 537-7 #### [facility] CLIA [id number] [address] [place] [address] [place] CNCOon 05-24-2024 CNCO Letter Text Normal [facility] CNOVon 05-24-2024 CNOV Office Visit (NEMOWS ) ----- ALEX CARPENTER ([id number]) 1935 M Date Time Provider Department 05/24/24 [...] imaging. CT brain completed on 06/22/22 at [facility] reportedly showed no acute changes but chronic [...] ORAL Ta (more content not included)... [facility] GIANN Telephone (NAVARRO) ----- ALEX CARPENTER ([id number]) 1935 M Date Time Provider Department 05/24/24 KAUSHAL STOCKTON JR During your visit today, we recorded the following information about you: Renetta Edouard LPN 05/24/2024 11:55 AM Signed Kaushal Stockton Jr., MD P Wstr Neur [facility] Nurse Please request recent labs including B12, sed rate, TSH, AZ, A1c, CMP from PCP office. Thank you. 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 - Fish Oil-Oakham-3 Fatty Acids 500-300 mg ORAL Cap Take by mouth. 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 [address] [place] [address] / REEVALUATION / MEDICARE RECERTIFICATION PHYSICAL THERAPY MR#: [id number] Acct: [id number] Name: ALEX CARPENTER Rep #: [id number] : 1935 88 From: Otto Shirley DPT, OCS, CSCS Referring Dr.: Dr. Otto Subramanian MD Status:REG RCR [facility] Re-Evaluation Intro: Dr. Otto [...] of chair even to do exercises. Using wh walker today, uses it some on at [...] but feeling like he can change that. ontwxpzv6o/week for 4 weeks Please do the following... 1. Ensure verbally patient doing HEP daily at home and add to it as compliance improves. 2. 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 Sincerely, Otto Shirley DPT, OCS, CSCS 05/23/24 1129 CC: Dr. Otto Subramanian MD EB Signed For Medicare only, by signing this I certify the plan of care. ___ Physicians Signature Date Normal [facility] PT Communicationon 5 PT Communication [facility] [place] [id number] [facility] [place] [address] Fax REHABILITATION SERVICES PROGRESS NOTE MR#: [id number] Acct: [id number] Name: ALEX CARPENTER Rep #: [id number] : 1935 88 From: Otto Shirley DPT, OCS, CSCS Referring Dr.: Dr. Otto Subramanian MD Status:REG RCR Insurance: [employer] SELF PAY INSURANCE PT Communication Note 04/22/[address] Otto Subramanian MD , Thank you for the referral of Alex to [facility] for balance testing. I have enclosed a [...] there are questions. Sincerely, Otto Shirley DPT, OCS, CSCS Contact Information 04/22/24 1042 S> Date Otto BARBOZAT, OCS, CSCS Cosigner Signature (if applicable): Date CC: Dr. Otto Subramanian MD Signed For Medicare only, by signing this I certify the plan of care. ___ Physicians Signature Date Normal [facility] Inital Evaluation (1) - PTon 04-15-2024 Inital Evaluation (1) - PT [facility] Physical Therapy [address] [place] [address] / REHABILITATION SERVICES INITIAL EVALUATION MR#: [id number] Acct: [id number] Name: ALEX CARPENTER Rep #: [id number] : 1935 88 From: Otto Shirley DPT, OCS, CSCS Referring Dr.: Dr. Otto Subramanian MD Status: REG R CR Insurance: [facility] SELF PAY INSURANCE Patient's Visit Information Visit Information Visit Information: ALEX CARPENTER is a 88 year old M referred to Physical Therapy by Dr. Otto Subramanian MD with a diagnosis of Balance evaluation due to unsteady gait and falls. Date of Evaluation: 04/15/24 Physical Therapist: Otto Shirley DPT, OCS, CSCS Visit Plan Frequency: 2x /Week Duration: [...] tired or uneven surfaces. 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 Also on course [...] not an issue but wakes up at [facility] with pain some times. Has electric [...] to be FAXED BACK to us at [phone] for Medicare purposes. For Medicare only, by signing this I certify the plan of care. Please let me know if there are questions or concerns regarding this plan of care. Physician Signature: Date: _ 04/15/24 1314 CC: Dr. Otto Subramanian MD EBG Signed Normal [facility] CBC W Auto Differential pane l (Bld)on 03-05-2024 Basophils (Bld) [#/Vol] 10*3/uL Normal <0.11 [facility] Comment on above: Order Comment: Speci men Type: BLOOD SPECIMENOrdering Facility: [facility] Address: [address] [place] [address] Performed By: #### 5 7021-8 ####[facility] MILLTOWNCLIA [id number] [place] [address] [place] Basophils/100 WBC (Bld) 0.1 % Normal [facility] Comment on above: Order Comment: Speci men Type: BLOOD SPECIMENOrdering Facility: [facility] Address: [address] [place] [address] Performed By: #### 5 7021-8 ####[facility] MILLWNCLIA [id number] [place] [address] [place] Differential cell count method Nom (Bld) Auto Normal [facility] Comment on above: Order Comment: Speci men Type: BLOOD SPECIMENOrdering Facility: [facility] Address: [address] [place] [address] Performed By: #### 5 7021-8 ####[facility] MILLWNCLIA [id number] [place] [address] [place] Eosinophils (Bld) [#/Vol] 10*3/uL Normal <0.46 [facility] Comment on above: Order Comment: Speci men Type: BLOOD SPECIMENOrdering Facility: [facility] Address: [address] [place] [address] Performed By: #### 5 7021-8 ####[facility] MILLTOWNCLIA [id number] [place] [address] [place] Eosinophils/100 WBC (Bld) 0.0 % Normal [facility] Comment on above: Order Comment: Speci men Type: BLOOD SPECIMENOrdering Facility: [facility] Address: [address] [place] [address] Performed By: #### 5 7021-8 ####[facility]ENTERLI [id number] [place] [address] [place] Erythrocyte distribution width (RBC) [Ratio] 13.1 % Normal 11.5-15.0 [facility] Comment on above: Order Comment: Speci men Type: BLOOD SPECIMENOrdering Facility: [facility] Address: [address] [place] [address] Performed By: #### 5 7021-8 ####[facility] [id number] [place] [address] [place] Hematocrit (Bld) [Volume fraction] 39.8 % Normal 39.0-51.0 [facility] Comment on above: Order Comment: Speci men Type: BLOOD SPECIMENOrdering Facility: [facility] Address: [address] [place] [address] Performed By: #### 5 7021-8 ####[facility] [id number] [place] [address] [place] Hemoglobin (Bld) [Mass/Vol] 13.7 g/dL Normal 13.0-17.0 [facility] Comment on above: Order Comment: Speci men Type: BLOOD SPECIMENOrdering Facility: [facility] Address: [address] [place] [address] Performed By: #### 5 7021-8 ####[facility] [id number] [place] [address] [place] Immature granulocytes (Bld) [#/Vol] 0.23 10*3/uL High <0.10 [facility] Comment on above: Order Comment: Speci men Type: BLOOD SPECIMENOrdering Facility: [facility] Address: [address] [place] [address] Performed By: #### 5 7021-8 ####[facility] [id number] [place] [address] [place] Immature granulocytes/100 WBC (Bld) 1.6 % Normal [facility] Comment on above: Order Comment: Speci men Type: BLOOD SPECIMENOrdering Facility: [facility] Address: [address] [place] [address] Performed By: #### 5 7021-8 ####[facility] [id number] [place] [address] [place] Lymphocytes (Bld) [#/Vol] 0.96 10*3/uL Low 1.00-4.00 [facility] Comment on above: Order Comment: Speci men Type: BLOOD SPECIMENOrdering Facility: [facility] Address: [address] [place] [address] Performed By: #### 5 7021-8 ####[facility] [id number] [place] [address] [place] Lymphocytes/100 WBC (Bld) 6.5 % Normal [facility] Comment on above: Order Comment: Speci men Type: BLOOD SPECIMENOrdering Facility: [facility] Address: [address] [place] [address] Performed By: #### 5 7021-8 ####[facility] [id number] [place] [address] [place] MCH (RBC) [Entitic mass] 31.6 pg Normal 26.0-34.0 [facility] Comment on above: Order Comment: Speci men Type: BLOOD SPECIMENOrdering Facility: [facility] Address: [address] [place] [address] Performed By: #### 5 7021-8 ####[facility] [id number] [place] [address] [place] MCHC (RBC) [Mass/Vol] 34.4 g/dL Normal 30.5-36.0 [facility] Comment on above: Order Comment: Speci men Type: BLOOD SPECIMENOrdering Facility: [facility] Address: [address] [place] [address] Performed By: #### 5 7021-8 ####[facility]PITALJANA [id number] [place] [address] [place] MCV (RBC) [Entitic vol] 91.9 fL Normal 80.0-100.0 [facility] Comment on above: Order Comment: Speci men Type: BLOOD SPECIMENOrdering Facility: [facility] Address: [address] [place] [address] Performed By: #### 5 7021-8 ####[facility] [id number] [place] [address] [place] Monocytes (Bld) [#/Vol] 0.75 10*3/uL Normal <0.87 [facility] Comment on above: Order Comment: Speci men Type: BLOOD SPECIMENOrdering Facility: [facility] Address: [address] [place] [address] Performed By: #### 5 7021-8 ####[facility]OSPITALNCA [id number] [place] [address] [place] Monocytes/100 WBC (Bld) 5.1 % Normal [facility] Comment on above: Order Comment: Speci men Type: BLOOD SPECIMENOrdering Facility: [facility] Address: [address] [place] [address] Performed By: #### 5 7021-8 ####[facility]ITALNCLIA [id number] [place] [address] [place] Neutrophils (Bld) [#/Vol] 12.70 10*3/uL High 1.45-7.50 [facility] Comment on above: Order Comment: Speci men Type: BLOOD SPECIMENOrdering Facility: [facility] Address: [address] [place] [address] Performed By: #### 5 7021-8 ####[facility] ADRIANNIRAVLIA [id number] [place] [address] [place] Neutrophils/100 WBC (Bld) 86.7 % Normal [facility] Comment on above: Order Comment: Speci men Type: BLOOD SPECIMENOrdering Facility: [facility] Address: [address] [place] [address] Performed By: #### 5 7021-8 ####[facility] [id number] [place] [address] [place] Nucleated RBC (Bld) [#/Vol] 10*3/uL Normal <0.01 [facility] Comment on above: Order Comment: Speci men Type: BLOOD SPECIMENOrdering Facility: [facility] Address: [address] [place] [address] Performed By: #### 5 7021-8 ####[facility] [id number] [place] [address] [place] Nucleated RBC/100 WBC (Bld) [Ratio] 0.0 /100 WBC Normal [facility] Comment on above: Order Comment: Speci men Type: BLOOD SPECIMENOrdering Facility: [facility] Address: [address] [place] [address] Performed By: #### 5 7021-8 ####[facility] HOSPITALBIBIANA [id number] [place] [address] [place] Platelet mean volume (Bld) [Entitic vol] 10.2 fL Normal 9.0-12.7 [facility] Comment on above: Order Comment: Speci men Type: BLOOD SPECIMENOrdering Facility: [facility] Address: [address] [place] [address] Performed By: #### 5 7021-8 ####[facility]OSPITALNCLI [id number] [place] [address] [place] Platelets (Bld) [#/Vol] 305 10*3/uL Normal 150-400 [facility] Comment on above: Order Comment: Speci men Type: BLOOD SPECIMENOrdering Facility: [facility] Address: [address] [place] [address] Performed By: #### 5 7021-8 ####[facility] H[facility]PITALWNCLIA [id number] [place] [address] [place] RBC (Bld) [#/Vol] 4.33 10*6/uL Normal 4.20-6.00 [facility] Comment on above: Order Comment: Speci men Type: BLOOD SPECIMENOrdering Facility: [facility] Address: [address] [place] [address] Performed By: #### 5 7021-8 ####[facility]ITALNCLIA [id number] [place] [address] [place] WBC (Bld) [#/Vol] 14.66 10*3/uL High 3.70-11.00 [facility] Comment on above: Order Comment: Speci men Type: BLOOD SPECIMENOrdering Facility: [facility] Address: [address] [place] [address] Performed By: #### 5 7021-8 ####[facility]ITALNCLIA [id number] [place] [address] [place] CNOVSPon 03-05-2024 CNOVSP Visit (SP) Office (IGOR) ----- ALEX CARPENTER ([id number]) 1935 M Date Time Provider Department 03/05/24 10:00 AM ABRAMOVICH, EVERETT HEMAWS During your visit today, we recorded the [...] in 1998, 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 He had been [...] (Patient not taking: Reported on 07/11/2022) Fish Oil-[place]-3 Fatty Acids 500-300 mg ORAL Cap Take one(1) tablet daily. (Patient not taking: Reported on 03/05/2024) REVIEW OF SYSTEMS: GENERAL: No fever, night sweats, weight loss or malaise. All other rev (more content not included)... Normal [facility] Comprehensive metabolic 2000 panelon 03-05-2024 Albumin [Mass/Vol] 4.1 g/dL Normal 3.9-4.[address] [facility] Comment on above: Order Comment: Speci men Type: BLOOD SPECIMENOrdering Facility: [facility] Address: [address] [place] [address] Performed By: #### 2 4323-8 ####[facility] [id number] [place] [address] [place] ALP [Catalytic activity/Vol] 115 U/L High 38-113 [facility] Comment on above: Order Comment: Speci men Type: BLOOD SPECIMENOrdering Facility: [facility] Address: [address] [place] [address] Performed By: #### 2 4323-8 ####[facility] [id number] [address] [place] ALT [Catalytic activity/Vol] 13 U/L Normal 10-54 [facility] Comment on above: Order Comment: Speci men Type: BLOOD SPECIMENOrdering Facility: [facility] Address: [address] [place] [address] Performed By: #### 2 4323-8 ####[facility] [id number] [place] [address] [place] Anion gap [Moles/Vol] 12 mmol/L Normal 8-15 [facility] Comment on above: Order Comment: Speci men Type: BLOOD SPECIMENOrdering Facility: [facility] Address: [address] [place] [address] Performed By: #### 2 4323-8 ####[facility] MILLTOWNCLIA [id number] [place] [address] [place] AST [Catalytic activity/Vol] 15 U/L Normal 14-40 [facility] Comment on above: Order Comment: Speci men Type: BLOOD SPECIMENOrdering Facility: [facility] Address: [address] [place] [address] Performed By: #### 2 4323-8 ####[facility] HOSPITALWNCLIA [id number] [place] [address] [place] Bilirubin [Mass/Vol] 0.5 mg/dL Normal 0.2-1.3 [facility] Comment on above: Order Comment: Speci men Type: BLOOD SPECIMENOrdering Facility: [facility] Address: [address] [place] [address] Performed By: #### 2 4323-8 ####[facility]ITALNCLIA [id number] [place] [address] [place] Calcium [Mass/Vol] 9.3 mg/dL Normal 8.5-10.[address] [facility] Comment on above: Order Comment: Speci men Type: BLOOD SPECIMENOrdering Facility: [facility] Address: [address] [place] [address] Performed By: #### 2 4323-8 ####[facility]ITALNCLIA [id number] [place] [address] [place] Chloride [Moles/Vol] 105 mmol/L Normal 98-107 [facility] Comment on above: Order Comment: Speci men Type: BLOOD SPECIMENOrdering Facility: [facility] Address: [address] [place] [address] Performed By: #### 2 4323-8 ####[facility]ITALNCLIA [id number] [place] [address] [place] CO2 [Moles/Vol] 25 mmol/L Normal 22-30 [facility] Comment on above: Order Comment: Speci men Type: BLOOD SPECIMENOrdering Facility: [facility] Address: [address] [place] [address] Performed By: #### 2 4323-8 ####[facility]OSPITALNCLI [id number] [place] [address] [place] Creatinine [Mass/Vol] 0.94 mg/dL Normal 0.73-1.22 [facility] Comment on above: Order Comment: Speci men Type: BLOOD SPECIMENOrdering Facility: [facility] Address: [address] [place] [address] Performed By: #### 2 4323-8 ####[facility]OSPITALNCLI [id number] [place] [address] [place] Creatinine and Glomerular filtration rate.predicted panel (S/P/Bld) 78 mL/min/1.73m??? Normal >=60 [facility] Comment on above: Order Comment: Speci men Type: BLOOD SPECIMENOrdering Facility: [facility] Address: [address] [place] [address] Result Comment: Isabel mated Glomerular Filtration Rate [...] actual GFR. Performed By: #### 2 4323-8 ####[facility]ITALNCLIA [id number] [place] [address] [place] Glucose [Mass/Vol] 169 mg/dL High 74-[address] [facility] Comment on above: Order Comment: Speci men Type: BLOOD SPECIMENOrdering Facility: [facility] Address: [address] [place], [place] [address] Result Comment: The [place] Diabetes Association (ADA) provides guidance for cutoff [...] Standards of Medical Care in Diabetes 2016, [place] [employer]. Diabetes Care. 2016.39(Suppl 1). Performed By: #### 2 4323-8 ####[facility]OSPITALJANA [id number] [place] [address] [place] Potassium [Moles/Vol] 3.3 mmol/L Low 3.7-5.1 [facility] Comment on above: Order Comment: Speci men Type: BLOOD SPECIMENOrdering Facility: [facility] Address: [address] [id number] Performed By: #### 2 4323-8 ####[facility] HOSPITALPACO [id number] [place] [address] [place] Protein [Mass/Vol] 6.4 g/dL Normal 6.3-8.[address] [facility] Comment on above: Order Comment: Speci men Type: BLOOD SPECIMENOrdering Facility: [facility] Address: [address] [place] [address] Performed By: #### 2 4323-8 ####[facility] [id number] [place] [address] [place] Sodium [Moles/Vol] 142 mmol/L Normal 136-[address] [facility] Comment on above: Order Comment: Speci men Type: BLOOD SPECIMENOrdering Facility: [facility] Address: [address] [id number] Performed By: #### 2 4323-8 ####[facility] MILLTOWNCLIA [id number] [place] [address] [place] Urea nitrogen [Mass/Vol] 27 mg/dL High 9-24 [facility] Comment on above: Order Comment: Speci men Type: BLOOD SPECIMENOrdering Facility: [facility] Address: [address] [place] [address] Performed By: #### 2 4323-8 ####[facility] ADRIANTOWNCLIA [id number] [place] [address] [place] PSA [facility] Prostate specific Ag [Mass/Vol] 0.15 ng/mL Normal <2.60 [facility] Comment on above: Order Comment: Speci men Type: BLOOD SPECIMEN [facility] Address: [address] [place] [address] Result Comment: Tota l PSA test methodology used is the Electrochemiluminescence Immunoassay by [employer]. Total PSA values by differing methodologies cannot be interchanged. Performed By: #### 4 537-7 #### [facility] CLIA [id number] [address] [place] [address] [place] Basic Metabolic Profile (BMP )on 01-24-2024 BUN/CRE 24.1 RATIO High 10-20 [facility] Comment on above: Performed By: #### L 501.3620, L501.9520, L500.2500, L100.0100, L501.5200 ####[facility] [address] [place], [address] CA,Total 8.8 mg/dL Normal 8.5-10.1 [facility] Comment on above: Performed By: #### L 501.3620, L501.9520, L500.2500, L100.0100, L501.5200 ####[facility] [address] [place], [address] Chloride [Moles/Vol] 109 mmol/L High 98-107 [facility] Comment on above: Performed By: #### L 501.3620, L501.9520, L500.2500, L100.0100, L501.5200 ####[facility] [address] [place], [address] CO2 [Moles/Vol] 27.0 mmol/L Normal 21.0-32.0 [facility] Comment on above: Performed By: #### L 501.3620, L501.9520, L500.2500, L100.0100, L501.5200 ####[facility] [address] [place], [address] Creatinine [Mass/Vol] 1.16 mg/dL Normal 0.70-1.30 [facility] Comment on above: Result Comment: The validity of the calculated GFR GFRAA in patients over 70 years has not been determined. Clinical correlation is essential. Performed By: #### L 501.3620, L501.9520, L500.2500, L100.0100, L501.5200 ####[facility] [address] [place], [address] ECRCL 49.01 ml/min Normal [facility] Comment on above: Performed By: #### L 501.3620, L501.9520, L500.2500, L100.0100, L501.5200 ####[facility] [address] [place], [address] EST GFR - AA 77 mL/min Normal >60 [facility] Comment on above: Result Comment: Afri can Ukrainian GFR Calc Performed By: #### L 501.3620, L501.9520, L500.2500, L100.0100, L501.5200 ####[facility] [address] [place], [address] GAP 6 Normal 5-15 [facility] Comment on above: Performed By: #### L 501.3620, L501.9520, L500.2500, L100.0100, L501.5200 ####[facility] [address] [place], [address] GFR/1.73 sq M.predicted among non-blacks MDRD (S/P/Bld) [Vol rate/Area] 63 mL/min/{1.73_m2} Normal >60 [facility] Comment on above: Result Comment: Non- GFR Calc Performed By: #### L 501.3620, L501.9520, L500.2500, L100.0100, L501.5200 ####[facility] [address] [place], [address] Glucose [Mass/Vol] 120 mg/dL High 74-106 [facility] Comment on above: Result Comment: Fast ing Glucose result from 100 to 125 mg/dL suggests IMPAIRED HOMEOSTASIS per A.D.A. criteria. Performed By: #### L 501.3620, L501.9520, L500.2500, L100.0100, L501.5200 ####[facility] [address] [place], [address] Potassium [Moles/Vol] 3.8 mmol/L Normal 3.5-5.1 [facility] Comment on above: Performed By: #### L 501.3620, L501.9520, L500.2500, L100.0100, L501.5200 ####[facility] [address] [place], [address] Sodium [Moles/Vol] 143 mmol/L Normal 136-145 [facility] Comment on above: Performed By: #### L 501.3620, L501.9520, L500.2500, L100.0100, L501.5200 ####[facility] [address] [place], [address] Urea nitrogen [Mass/Vol] 28 mg/dL High 7-18 [facility] Comment on above: Performed By: #### L 501.3620, L501.9520, L500.2500, L100.0100, L501.5200 ####[facility] [address] [place], [address] Brain/Head without Contrasto n 01-24-2024 Brain/Head without Contrast [facility] Services [address] [place] [address] Brain/Head without Contrast MR#: [id number] Acct: [id number] Name: ALEX CARPENTER Rep #: [id number] : 1935 M 88 From: [place] PCP: Dr. Otto Subramanian MD Status: [facility] Study: Brain/Head without Contrast Date of Exam: 09/10 Exam# [id number] Ordering Dr: Sabas Nayak DO [id number] INDICATION: fall EXAMINATION: CT BRAIN - CT [...] 6:21 EST Reading Location ID and State: [facility] / [place] Tel , Service support , CC: Dr. Otto Subramanian MD; Sabas Nayak DO [employer] Supervisor: Signed Normal [facility] CBC W/Diff, Automatedon 11-0 -2023 Absolute Lymph 0.74 X10 3/uL Low 0.83-4.51 [facility] Comment on above: Performed By: #### L 501.3620, L501.9520, L500.2500, L100.0100, L501.5200 #### [facility] [address] [place], [address] Absolute Neut 8.9 X10 3/uL High 2.0-7.7 [facility] Comment on above: Performed By: #### L 501.3620, L501.9520, L500.2500, L100.0100, L501.5200 #### [facility] [address] [place], [address] Basophils/100 WBC (Bld) 0.6 % Normal 0-1 [facility] Comment on above: Performed By: #### L 501.3620, L501.9520, L500.2500, L100.0100, L501.5200 #### [facility] [address] [place], [address] Eosinophils/100 WBC (Bld) 1.6 % Normal 0-5 [facility] Comment on above: Performed By: #### L 501.3620, L501.9520, L500.2500, L100.0100, L501.5200 #### [facility] [address] [place], [address] Erythrocyte distribution width (RBC) [Ratio] 13.6 % Normal 11.6-14.6 [facility] Comment on above: Performed By: #### L 501.3620, L501.9520, L500.2500, L100.0100, L501.5200 #### [facility] [address] [place], [address] Hematocrit (Bld) [Volume fraction] 39.3 % Low 40-54 [facility] Comment on above: Performed By: #### L 501.3620, L501.9520, L500.2500, L100.0100, L501.5200 #### [facility] [address] [place], [address] Hemoglobin (Bld) [Mass/Vol] 13.1 g/dL Normal 13.0-16.5 [facility] Comment on above: Performed By: #### L 501.3620, L501.9520, L500.2500, L100.0100, L501.5200 #### [facility] [address] [place], [address] IG% 2.200 High 0.0-0.9 [facility] Comment on above: Result Comment: IG% - Immature Granulocytes (promyelocytes, myelocytes and metamyelocytes) > 1% indicates that a LEFT SHIFT is Present. Performed By: #### L 501.3620, L501.9520, L500.2500, L100.0100, L501.5200 #### [facility] [address] [place], [address] Lymphocytes/100 WBC (Bld) 6.8 % Low 19-41 [facility] Comment on above: Performed By: #### L 501.3620, L501.9520, L500.2500, L100.0100, L501.5200 #### [facility] [address] [place], [address] MCH (RBC) [Entitic mass] 31.3 pg Normal 27.0-32.0 [facility] Comment on above: Performed By: #### L 501.3620, L501.9520, L500.2500, L100.0100, L501.5200 #### [facility] [address] [place], [address] MCHC (RBC) [Mass/Vol] 33.3 g/dL Normal 32-36 [facility] Comment on above: Performed By: #### L 501.3620, L501.9520, L500.2500, L100.0100, L501.5200 #### [facility] [address] [place], [address] MCV (RBC) [Entitic vol] 94.0 fL Normal 80-94 [facility] Comment on above: Performed By: #### L 501.3620, L501.9520, L500.2500, L100.0100, L501.5200 #### [facility] [address] [place], [address] Monocytes/100 WBC (Bld) 7.0 % Normal 0-10 [facility] Comment on above: Performed By: #### L 501.3620, L501.9520, L500.2500, L100.0100, L501.5200 #### [facility] [address] [place], [address] Neutrophils/100 WBC (Bld) 81.8 % High 47-70 [facility] Comment on above: Performed By: #### L 501.3620, L501.9520, L500.2500, L100.0100, L501.5200 #### [facility] [address] [place], [address] Nucleated RBC (Bld) [#/Vol] 0 10*3/uL Normal 0-5 [facility] Comment on above: Performed By: #### L 501.3620, L501.9520, L500.2500, L100.0100, L501.5200 #### [facility] [address] [place], [address] Platelet mean volume (Bld) [Entitic vol] 10.3 fL Normal 6.2-12.0 [facility] Comment on above: Performed By: #### L 501.3620, L501.9520, L500.2500, L100.0100, L501.5200 #### [facility] [address] [place], [address] Platelets (Bld) [#/Vol] 210 10*3/uL Normal 150-450 [facility] Comment on above: Performed By: #### L 501.3620, L501.9520, L500.2500, L100.0100, L501.5200 #### [facility] [address] [place], [address] RBC (Bld) [#/Vol] 4.18 10*6/uL Low 4.6-6.2 [facility] Comment on above: Performed By: #### L 501.3620, L501.9520, L500.2500, L100.0100, L501.5200 #### [facility] [address] [place], [address] RDW SD 46.9 fl High 35.1-43.9 [facility] Comment on above: Performed By: #### L 501.3620, L501.9520, L500.2500, L100.0100, L501.5200 #### [facility] [address] [place], [address] WBC (Bld) [#/Vol] 10.9 10*3/uL Normal 4.4-11.0 [facility] Comment on above: Performed By: #### L 501.3620, L501.9520, L500.2500, L100.0100, L501.5200 #### [facility] [address] [place], [address] CPK Total, Creatine Kinaseon 01-24-2024 CPK TOTAL 36 U/L Low 39-308 [facility] Comment on above: Performed By: #### L 501.3620, L501.9520, L500.2500, L100.0100, L501.5200 ####[facility] [address] [facility] [place], [address] Emergency Department Summary on 01-24-2024 Emergency Department Summary [facility] Medical Records Department [address] [place] [address] Emergency Department Summary 01/24/24 MR#: [id number] Acct: [id number] Name: ALXE CARPENTER Rep #: [id number] : 1935 88 From: Sabas Nayak DO [...] is pain along his left rib cage [facility] Medical History Bilateral carotid bruits Nonrheumatic aortic (valve) stenosis Essential hypertension SHAMAR (obstructive sleep apnea) Old myocardial infarction Diastolic dysfunction Premature atrial contractions Cardiac murmur Hyperlipidemia Hypertension 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 Normal [facility] Lumbar Spine 2 or 3 Viewson 01-24-2024 Lumbar Spine 2 or 3 Views [facility] Imaging Services [address] [place] [address] Lumbar Spine 2 or 3 Views MR#: [id number] Acct: [id number] Name: ALEX CARPENTER Rep #: [id number] : 1935 M 88 From: Bora Magallon PCP: Dr. Otto Subramanian MD Status: REG ER Study: Lumbar Spine 2 or 3 Views Date of Exam: Exam# [id number] Ordering Dr: Sabas Nayak DO [id number] INDICATION: fall EXAMINATION/TECHNIQUE: X-RAY - XR Spine [...] 6:09 EST Reading Location ID and State: [facility] / [place] Tel , Service support , CC: Dr. Otto Subramanian MD; Sabas Nayak DO [employer] Supervisor: Signed Normal [facility] Magnesiumon 01-24-2024 Magnesium [Mass/Vol] 2.2 mg/dL Normal 1.6-2.6 [facility] Comment on above: Performed By: #### L 501.3620, L501.9520, L500.2500, L100.0100, L501.5200 ####[facility] [address] [facility] [place], [place], [address] Pelvis 1 or 2 Viewson 2023 Pelvis 1 or 2 Views [facility] Imaging Services [address] [place], [place] [address] Pelvis 1 or 2 Views MR#: [id number] Acct: [id number] Name: ALEX CARPENTER Rep #: [id number] : 1935 M 88 From: Bora Magallon PCP: Dr. Otto Subramanian MD Status: REG ER Study: Pelvis 1 or 2 Views Date of Exam: 01/24/24 Exam# [id number] Ordering Dr: Sabas Nayak DO [id number] INDICATION: fall EXAMINATION/TECHNIQUE: X-RAY - XR Pelvis [...] 6:16 EST Reading Location ID and State: [address] [place] [address] Tel , Service support , CC: Dr. Otto Subramanian MD; Sabas Nayak DO [employer] Supervisor: Signed Normal [facility] Ribs Uni Min 3V w/PA Cheston 01-24-2024 Ribs Uni Min 3V w/PA Chest [facility] Imaging Services [address] [place] [address] Ribs Uni Min 3V w/PA Chest MR#: [id number] Acct: [id number] Name: ALEX CARPENTER Rep #: [id number] : 1935 88 From: Bora Magallon PCP: Dr. Otto Subramanian MD Status: REG ER Study: Ribs Uni Min 3V w/PA Chest Date of Exam: 01/23 Exam# [id number] Ordering Dr: Sabas Nayak DO [id number] INDICATION: pain EXAMINATION/TECHNIQUE: X-RAY - XR Ribs [...] 6:14 EST Reading Location ID and State: [address] [place] [address] Tel , Service support , CC: Dr. Otto Subramanian MD; Sabas Nyaak DO [employer] Supervisor: Signed Normal [facility] Spine Cervical without Contr ason 01-24-2024 Spine Cervical without Contras [facility] Imaging Services [address] [place] [address] Spine Cervical without Contras MR#: [id number] Acct: [id number] Name: ALEX CARPENTER Rep #: [id number] : 1935 M 88 From: Bora Magallon PCP: Dr. Otto Subramanian MD Status: [facility] ER Study: Spine Cervical without Contras Date of Exam: 03/25/23 Exam# [id number] Ordering Dr: Sabas Nayak DO [id number] INDICATION: fall EXAMINATION: CT CERVICAL SPINE - [...] 6:30 EST Reading Location ID and State: [facility] / [place] Tel , Service support , CC: Dr. Otto Subramanian MD; Sabas Nayak DO [employer] Supervisor: Signed Normal [facility] Thoracic Spine 3 Viewson Thoracic Spine 3 Views [facility] Imaging Services [address] [place] [address] Thoracic Spine 3 Views MR#: [id number] Acct: [id number] Name: ALEX CARPENTER Rep #: [id number] : 1935 M 88 From: Bora Magallon PCP: Dr. Otto Subramanian MD Status: REG ER Study: Thoracic Spine 3 Views Date of Exam: 01/24/24 Exam# [id number] Ordering Dr: Sabas Nayak DO [id number] INDICATION: fall EXAMINATION/TECHNIQUE: X-RAY - XR Spine [...] 6:12 EST Reading Location ID and State: [address] [place] [address] Tel , Service support , CC: Dr. Otto Subramanian MD; Sabas Nayak DO [employer] Supervisor: Signed Normal [facility] Thyroid Stim Hormone (TSH)on 01-24-2024 TSH 4.030 uIU/mL High 0.358-3.740 [facility] Comment on above: Performed By: #### L 501.3620, L501.9520, L500.2500, L100.0100, L501.5200 ####[facility] [address] [place], [address] CNOVon 01-23-2024 CNOV Office Visit (UROLWS ) ----- ALEX CARPENTER ([id number]) 1935 M Date Time Provider Department 01/23/24 3:30 PM PRANAV TATE During your visit today, we recorded the [...] now for an appointment with SHARRI Palacios, MADHU, DAGO. Procedure: Explained procedure to patient and verbalizes understanding. Performed a PVR. Patient urinated and instructed to empty bladder as much as possible just prior to having PVR done using bladder ultrasound scanner. Results of scan: 0 mL The patient tolerated the procedure well. Plan: Appointment with Brandon. An rCespo RN January 23, 2024 4:20 PM Pranav Tate PA-C 01/23/2024 8:33 PM Signed [facility] EST PATIENT CLINIC NOTE SERVICE DATE: January 23, 2024 NAME: Alex Carpenter CHIEF COMPLAINT: Hx of Adenocarcinoma of Prostate and OAB HISTORY OF PRESENT ILLNESS: Alex Carpenter is a 88 year old male an established patient following up for Hx of Adenocarcinoma of Prostate and OAB The patient reports running out of his Ditropan and new Rx sent to [facility] today Continued follow-up with Medical Oncology [...] 1 tablet by mouth once daily. Fish Oil-Oakham-3 Fatty Acids 500-300 mg ORAL Cap Take [...] 0 ml (more content not included)... Normal [facility] UA DIP, URINE (POC)on 2023 BILIRUBIN UA (POCT) Negative Negative [facility] CLARITY UA (POCT) Clear [facility] COLOR UA (POCT) Yellow [facility] GLUCOSE UA (POCT) Negative Negative mg/dL [facility] Hemoglobin Ql (U) Negative Negative [facility] KETONE UA (POCT) Negative Negative mg/dL [facility] LEUKOCYTES UA (POCT) Negative Negative [facility] NITRITE UA (POCT) Negative Negative [facility] PH UA (POCT) 6.5 4.5 - 8.0 [facility] Protein Ql (U) Negative Negative mg/dL [facility] SPECIFIC GRAVITY UA (POCT) 1.025 1.005 - 1.030 [facility] UROBILINOGEN UA (POCT) 0.2 Vijaya l E.U./dL [facility] Location:[facility], [address], [place], [address] [facility] POINT OF CARE [facility] Cardiology Visit Reporton Cardiology Visit Report [facility] [address] [place], [place] [id number] OFFICE VISIT Date of Service: 12/26/23 MR#: [id number] Acct: [id number] Name: ALEX CARPENTER Rep #: [id number] : 1935 Provider: Dr. Osman Bui MD Age/Sex: 88/M Location: [facility] Status: Signed HPI [facility] History of Present Illness Details: This is [...] Visit Reasons: 1 Y FU PREV PFM Family Law Paralegal Required: No Accompanied by: Self Is patient in pain?: No Allergies lisinopril Adverse Reaction (Severe, Verified 12/26/23 10:59) cough Medications ???Medication ???Instructions ???Recorded ???Confirmed ???Type aspirin 81 mg tablet,delayed 81 mg PO QDAY 11/06/17 12/26/23 History release calcium 600 mg (as 1 tab PO QDAY 11/06/17 12/26/23 History carbonate)-vitamin D3 5 mcg (200 unit) tablet (Calcium 600 with Vitamin D3) icvdqgvwfkf-brnyaqfcx-kjl C-Mn 750 1 ea PO DAILY 05/19/19 [...] murmur Hyperlipidemia Hypertension 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 Normal [facility] CBC W Auto Differential pane l (Bld)on 12-12-2023 Basophils (Bld) [#/Vol] 0.04 10*3/uL Normal <0.11 [facility] Comment on above: Order Comment: Speci men Type: BLOOD SPECIMENOrdering Facility: [facility] Address: [address] [place] [address] Performed By: #### 5 7021-8 ####[facility] [id number] [place] [address] [place] Basophils/100 WBC (Bld) 0.5 % Normal [facility] Comment on above: Order Comment: Speci men Type: BLOOD SPECIMENOrdering Facility: [facility] Address: [address] [place] [address] Performed By: #### 5 7021-8 ####[facility] [id number] [place] [address] [place] Differential cell count method Nom (Bld) Auto Normal [facility] Comment on above: Order Comment: Speci men Type: BLOOD SPECIMENOrdering Facility: [facility] Address: [address] [place] [address] Performed By: #### 5 7021-8 ####[facility] [id number] [place] [address] [place] Eosinophils (Bld) [#/Vol] 0.24 10*3/uL Normal <0.46 [facility] Comment on above: Order Comment: Speci men Type: BLOOD SPECIMENOrdering Facility: [facility] Address: [address] [place] [address] Performed By: #### 5 7021-8 ####[facility] [id number] [place] [address] [place] Eosinophils/100 WBC (Bld) 3.1 % Normal [facility] Comment on above: Order Comment: Speci men Type: BLOOD SPECIMENOrdering Facility: [facility] Address: [address] [place] [address] Performed By: #### 5 7021-8 ####[facility] [id number] [place] [address] [place] Erythrocyte distribution width (RBC) [Ratio] 13.1 % Normal 11.5-15.0 [facility] Comment on above: Order Comment: Speci men Type: BLOOD SPECIMENOrdering Facility: [facility] Address: [address] [place] [address] Performed By: #### 5 7021-8 ####[facility] [id number] [place] [address] [place] Hematocrit (Bld) [Volume fraction] 39.4 % Normal 39.0-51.0 [facility] Comment on above: Order Comment: Speci men Type: BLOOD SPECIMENOrdering Facility: [facility] Address: [address] [place] [address] Performed By: #### 5 7021-8 ####[facility] ADRIANWINCHESTERNCLIA [id number] [place] [address] [place] Hemoglobin (Bld) [Mass/Vol] 13.3 g/dL Normal 13.0-17.0 [facility] Comment on above: Order Comment: Speci men Type: BLOOD SPECIMENOrdering Facility: [facility] Address: [address] [place] [address] Performed By: #### 5 7021-8 ####[facility]ITALN[facility] [id number] [place] [address] [place] Immature granulocytes (Bld) [#/Vol] 0.05 10*3/uL Normal <0.10 [facility] Comment on above: Order Comment: Speci men Type: BLOOD SPECIMENOrdering Facility: [facility] Address: [address] [place] [address] Performed By: #### 5 7021-8 ####[facility]ITALNCLIA [id number] [place] [address] [place] Immature granulocytes/100 WBC (Bld) 0.6 % Normal [facility] Comment on above: Order Comment: Speci men Type: BLOOD SPECIMENOrdering Facility: [facility] Address: [address] [place] [address] Performed By: #### 5 7021-8 ####[facility]ITALNCLIA [id number] [place] [address] [place] Lymphocytes (Bld) [#/Vol] 0.75 10*3/uL Low 1.00-4.00 [facility] Comment on above: Order Comment: Speci men Type: BLOOD SPECIMENOrdering Facility: [facility] Address: [address] [place] [address] Performed By: #### 5 7021-8 ####[facility] CATNCBIBIANAA [id number] [place] [address] [place] Lymphocytes/100 WBC (Bld) 9.5 % Normal [facility] Comment on above: Order Comment: Speci men Type: BLOOD SPECIMENOrdering Facility: [facility] Address: [address] [place] [address] Performed By: #### 5 7021-8 ####[facility]PITALNCPACO [id number] [place] [address] [place] MCH (RBC) [Entitic mass] 30.9 pg Normal 26.0-34.0 [facility] Comment on above: Order Comment: Speci men Type: BLOOD SPECIMENOrdering Facility: [facility] Address: [address] [place] [address] Performed By: #### 5 7021-8 ####[facility]ITALNCLIA [id number] [place] [address] [place] MCHC (RBC) [Mass/Vol] 33.8 g/dL Normal 30.5-36.0 [facility] Comment on above: Order Comment: Speci men Type: BLOOD SPECIMENOrdering Facility: [facility] Address: [address] [place] [address] Performed By: #### 5 7021-8 ####[facility]ITALNCLIA [id number] [place] [address] [place] MCV (RBC) [Entitic vol] 91.6 fL Normal 80.0-100.0 [facility] Comment on above: Order Comment: Speci men Type: BLOOD SPECIMENOrdering Facility: [facility] Address: [address] [place] [address] Performed By: #### 5 7021-8 ####[facility]ITALNCLIA [id number] [place] [address] [place] Monocytes (Bld) [#/Vol] 0.48 10*3/uL Normal <0.87 [facility] Comment on above: Order Comment: Speci men Type: BLOOD SPECIMENOrdering Facility: [facility] Address: [address] [place] [address] Performed By: #### 5 7021-8 ####[facility] HOSPITALLIA [id number] [place] [address] [place] Monocytes/100 WBC (Bld) 6.1 % Normal [facility] Comment on above: Order Comment: Speci men Type: BLOOD SPECIMENOrdering Facility: [facility] Address: [address] [place] [address] Performed By: #### 5 7021-8 ####[facility]ITALNCLIA [id number] [place] [address] [place] Neutrophils (Bld) [#/Vol] 6.30 10*3/uL Normal 1.45-7.50 [facility] Comment on above: Order Comment: Speci men Type: BLOOD SPECIMENOrdering Facility: [facility] Address: [address] [place] [address] Performed By: #### 5 7021-8 ####[facility] HOSPITALLIA [id number] [place] [address] [place] Neutrophils/100 WBC (Bld) 80.2 % Normal [facility] Comment on above: Order Comment: Speci men Type: BLOOD SPECIMENOrdering Facility: [facility] Address: [address] [place] [address] Performed By: #### 5 7021-8 ####[facility]ITALNCLIA [id number] [place] [address] [place] Nucleated RBC (Bld) [#/Vol] 10*3/uL Normal <0.01 [facility] Comment on above: Order Comment: Speci men Type: BLOOD SPECIMENOrdering Facility: [facility] Address: [address] [place] [address] Performed By: #### 5 7021-8 ####[facility] CATNCPACO [id number] [place] [address] [place] Nucleated RBC/100 WBC (Bld) [Ratio] 0.0 /100 WBC Normal [facility] Comment on above: Order Comment: Speci men Type: BLOOD SPECIMENOrdering Facility: [facility] Address: [address] [place] [address] Performed By: #### 5 7021-8 ####[facility] ADRIANWINCHESTERNCPACO [id number] [place] [address] [place] Platelet mean volume (Bld) [Entitic vol] 10.4 fL Normal 9.0-12.7 [facility] Comment on above: Order Comment: Speci men Type: BLOOD SPECIMENOrdering Facility: [facility] Address: [address] [place] [address] Performed By: #### 5 7021-8 ####[facility]ITALNCLIA [id number] [place] [address] [place] Platelets (Bld) [#/Vol] 213 10*3/uL Normal 150-400 [facility] Comment on above: Order Comment: Speci men Type: BLOOD SPECIMENOrdering Facility: [facility] Address: [address] [place] [address] Performed By: #### 5 7021-8 ####[facility]ITALNCLIA [id number] [place] [address] [place] RBC (Bld) [#/Vol] 4.30 10*6/uL Normal 4.20-6.00 [facility] Comment on above: Order Comment: Speci men Type: BLOOD SPECIMENOrdering Facility: [facility] Address: [address] [address] Performed By: #### 5 7021-8 ####[facility] CAROLIN CAMPBELLWNCLIA [id number] [place] [address] [place] WBC (Bld) [#/Vol] 7.86 10*3/uL Normal 3.70-11.00 [facility] Comment on above: Order Comment: Speci men Type: BLOOD SPECIMENOrdering Facility: [facility] Address: [address] [address] Performed By: #### 5 7021-8 ####[facility] CAROLIN VALDIVIANCLIA [id number] [address] [place] CNOVSPon 12-12-2023 CNOVSP Visit (SP) Office (HEMAWS) ----- ALEX CARPENTER ([id number]) 1935 M Date Time Provider Department 12/12/23 10:00 AM TREATMENT RM [facility] WSTRHEMAWS During your visit today, we recorded the following information about you: Referring Provider: BREE CORNEJO [[id number]] Allergies As of Date: 12/12/2023 Noted Allergy [...] 100 mL (ZOMETA)Disp: Rfl: BCN NURSING COMMUNICATION [[id number]] Order #: [id number]: 1 STANDING Prescriptions as of 12/12/2023 - [...] tablet by mouth once daily. - Fish Oil-Oakham-3 Fatty Acids 500-300 mg ORAL Cap Take one(1) tablet daily. 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 He had been [...] (Patient not taking: Reported on 07/11/2022) Fish Oil-Oakham-3 Fatty Acids 500-300 mg ORAL Cap Take one(1) tablet daily. Lab Results Component Value Date PSA 0.15 09/19/2023 PSA 0.17 (more content not included)... Normal [facility] Comprehensive metabolic 2000 panelon 12-12-2023 Albumin [Mass/Vol] 3.9 g/dL Normal 3.9-4.[address] [facility] Comment on above: Order Comment: Speci men Type: BLOOD SPECIMENOrdering Facility: [facility] Address: [address] [place] [address] Performed By: #### 2 4323-8 ####[facility] [id number] [place] [address] [place] ALP [Catalytic activity/Vol] 89 U/L Normal 38-113 [facility] Comment on above: Order Comment: Speci men Type: BLOOD SPECIMENOrdering Facility: [facility] Address: [address] [place] [address] Performed By: #### 2 4323-8 ####[facility] [id number] [place] [address] [place] ALT [Catalytic activity/Vol] 10 U/L Normal 10-54 [facility] Comment on above: Order Comment: Speci men Type: BLOOD SPECIMENOrdering Facility: [facility] Address: [address] [place] [address] Performed By: #### 2 4323-8 ####[facility] CAROLIN MILLTOWNCLIA [id number] [place] [address] [place] Anion gap [Moles/Vol] 10 mmol/L Normal 8-15 [facility] Comment on above: Order Comment: Speci men Type: BLOOD SPECIMENOrdering Facility: [facility] Address: [address] [place] [address] Performed By: #### 2 4323-8 ####[facility]ITALNCLIA [id number] [place] [address] [place] AST [Catalytic activity/Vol] 15 U/L Normal 14-40 [facility] Comment on above: Order Comment: Speci men Type: BLOOD SPECIMENOrdering Facility: [facility] Address: [address] [place] [address] Performed By: #### 2 4323-8 ####[facility]ITALNCLIA [id number] [place] [address] [place] Bilirubin [Mass/Vol] 0.7 mg/dL Normal 0.2-1.3 [facility] Comment on above: Order Comment: Speci men Type: BLOOD SPECIMENOrdering Facility: [facility] Address: [address] [place] [address] Performed By: #### 2 4323-8 ####[facility] HOSPITALWNCLIA [id number] [place] [address] [place] Calcium [Mass/Vol] 9.4 mg/dL Normal 8.5-10.[address] [facility] Comment on above: Order Comment: Speci men Type: BLOOD SPECIMENOrdering Facility: [facility] Address: [address] [place] [address] Performed By: #### 2 4323-8 ####[facility] ADRIANAmariNCLIA [id number] [place] [address] [place] Chloride [Moles/Vol] 105 mmol/L Normal 98-107 [facility] Comment on above: Order Comment: Speci men Type: BLOOD SPECIMENOrdering Facility: [facility] Address: [address] [place] [address] Performed By: #### 2 4323-8 ####[facility]ITALNCLIA [id number] [place] [address] [place] CO2 [Moles/Vol] 26 mmol/L Normal 22-30 [facility] Comment on above: Order Comment: Speci men Type: BLOOD SPECIMENOrdering Facility: [facility] Address: [address] [place] [address] Performed By: #### 2 4323-8 ####[facility]ITALNCLIA [id number] [place] [address] [place] Creatinine [Mass/Vol] 1.00 mg/dL Normal 0.73-1.22 [facility] Comment on above: Order Comment: Speci men Type: BLOOD SPECIMENOrdering Facility: [facility] Address: [address] [place] [address] Performed By: #### 2 4323-8 ####[facility]ITALNCLIA [id number] [place] [address] [place] Creatinine and Glomerular filtration rate.predicted panel (S/P/Bld) 73 mL/min/1.73m??? Normal >=60 [facility] Comment on above: Order Comment: Speci men Type: BLOOD SPECIMENOrdering Facility: [facility] Address: [address] [place] [address] Result Comment: Isabel mated Glomerular Filtration Rate [...] actual GFR. Performed By: #### 2 4323-8 ####[facility] [id number] [place] [address] [place] Glucose [Mass/Vol] 153 mg/dL High 74-[address] [facility] Comment on above: Order Comment: Edgard wood Type: BLOOD SPECIMENOrdering Facility: [facility] Address: [address] [place] [address] Result Comment: The [place] Diabetes Association (ADA) provides guidance for cutoff [...] Standards of Medical Care in Diabetes 2016, [place] [employer]. Diabetes Care. 2016.39(Suppl 1). Performed By: #### 2 4323-8 ####[facility] [id number] [place] [address] [place] Potassium [Moles/Vol] 3.3 mmol/L Low 3.7-5.1 [facility] Comment on above: Order Comment: Edgard wood Type: BLOOD SPECIMENOrdering Facility: [facility] Address: [address] [place] [address] Performed By: #### 2 4323-8 ####[facility] [id number] [place] [address] [place] Protein [Mass/Vol] 6.3 g/dL Normal 6.3-8.[address] [facility] Comment on above: Order Comment: Speci men Type: BLOOD SPECIMENOrdering Facility: [facility] Address: [address] [place] [address] Performed By: #### 2 4323-8 ####[facility]OSPITALMASONLIA [id number] [place] [address] [place] Sodium [Moles/Vol] 141 mmol/L Normal 136-[address] [facility] Comment on above: Order Comment: Speci men Type: BLOOD SPECIMENOrdering Facility: [facility] Address: [address] [place] [address] Performed By: #### 2 4323-8 ####[facility]OSPITALNCBarber [id number] [place] [address] [place] Urea nitrogen [Mass/Vol] 30 mg/dL High 9-24 [facility] Comment on above: Order Comment: Speci men Type: BLOOD SPECIMENOrdering Facility: [facility] Address: [address] [place] [address] Performed By: #### 2 4323-8 ####[facility]ITALNCLIA [id number] [place] [address] [place] PSA [facility] Prostate specific Ag [Mass/Vol] 0.12 ng/mL Normal <2.60 [facility] Comment on above: Order Comment: Speci men Type: BLOOD SPECIMEN [facility] Address: [address] [place] [address] Result Comment: Tota l PSA test methodology used is the Electrochemiluminescence Immunoassay by [employer]. Total PSA values by differing methodologies cannot be interchanged. Performed By: #### 4 537-7 #### [facility] CLIA [id number] [address] [place] [address] [place] CBC W Auto Differential pane l (Bld)on 09-19-2023 Basophils (Bld) [#/Vol] 0.07 10*3/uL Normal <0.11 [facility] Comment on above: Order Comment: Speci men Type: BLOOD SPECIMENOrdering Facility: [facility] Address: [address] [place] [address] Performed By: #### 5 7021-8 ####[facility] [id number] [place] [address] [place] Basophils/100 WBC (Bld) 0.8 % Normal [facility] Comment on above: Order Comment: Speci men Type: BLOOD SPECIMENOrdering Facility: [facility] Address: [address] [place] [address] Performed By: #### 5 7021-8 ####[facility] [id number] [address] [place] Differential cell count method Nom (Bld) Auto Normal [facility] Comment on above: Order Comment: Speci men Type: BLOOD SPECIMENOrdering Facility: [facility] Address: [address] [place] [address] Performed By: #### 5 7021-8 ####[facility] [id number] [place] [address] [place] Eosinophils (Bld) [#/Vol] 0.37 10*3/uL Normal <0.46 [facility] Comment on above: Order Comment: Speci men Type: BLOOD SPECIMENOrdering Facility: [facility] Address: [address] [place] [address] Performed By: #### 5 7021-8 ####[facility] HOSPITALLIA [id number] [place] [address] [place] Eosinophils/100 WBC (Bld) 4.1 % Normal [facility] Comment on above: Order Comment: Speci men Type: BLOOD SPECIMENOrdering Facility: [facility] Address: [address] [place] [address] Performed By: #### 5 7021-8 ####[facility] DONNA [id number] [place] [address] [place] Erythrocyte distribution width (RBC) [Ratio] 12.8 % Normal 11.5-15.0 [facility] Comment on above: Order Comment: Speci men Type: BLOOD SPECIMENOrdering Facility: [facility] Address: [address] [place] [address] Performed By: #### 5 7021-8 ####[facility] ADRIANWINCHESTERJANA [id number] [place] [address] [place] Hematocrit (Bld) [Volume fraction] 41.9 % Normal 39.0-51.0 [facility] Comment on above: Order Comment: Speci men Type: BLOOD SPECIMENOrdering Facility: [facility] Address: [address] [place] [address] Performed By: #### 5 7021-8 ####[facility] ADRIANWINCHESTERKALEIGHA [id number] [place] [address] [place] Hemoglobin (Bld) [Mass/Vol] 14.0 g/dL Normal 13.0-17.0 [facility] Comment on above: Order Comment: Speci men Type: BLOOD SPECIMENOrdering Facility: [facility] Address: [address] [place] [address] Performed By: #### 5 7021-8 ####[facility]OSPITALMASONLIA [id number] [place] [address] [place] Immature granulocytes (Bld) [#/Vol] 0.04 10*3/uL Normal <0.10 [facility] Comment on above: Order Comment: Speci men Type: BLOOD SPECIMENOrdering Facility: [facility] Address: [address] [place] [address] Performed By: #### 5 7021-8 ####[facility] HOSPITALWNCLIA [id number] [place] [address] [place] Immature granulocytes/100 WBC (Bld) 0.4 % Normal [facility] Comment on above: Order Comment: Speci men Type: BLOOD SPECIMENOrdering Facility: [facility] Address: [address] [place] [address] Performed By: #### 5 7021-8 ####[facility]PITALNCLIA [id number] [place] [address] [place] Lymphocytes (Bld) [#/Vol] 0.82 10*3/uL Low 1.00-4.00 [facility] Comment on above: Order Comment: Speci men Type: BLOOD SPECIMENOrdering Facility: [facility] Address: [address] [place] [address] Performed By: #### 5 7021-8 ####[facility]OSPITALNCLIA [id number] [place] [address] [place] Lymphocytes/100 WBC (Bld) 9.2 % Normal [facility] Comment on above: Order Comment: Speci men Type: BLOOD SPECIMENOrdering Facility: [facility] Address: [address] [place] [address] Performed By: #### 5 7021-8 ####[facility]OSPITALMASONLIA [id number] [place] [address] [place] MCH (RBC) [Entitic mass] 31.3 pg Normal 26.0-34.0 [facility] Comment on above: Order Comment: Speci men Type: BLOOD SPECIMENOrdering Facility: [facility] Address: [address] [place] [address] Performed By: #### 5 7021-8 ####[facility]OSPITALNCLIA [id number] [place] [address] [place] MCHC (RBC) [Mass/Vol] 33.4 g/dL Normal 30.5-36.0 [facility] Comment on above: Order Comment: Speci men Type: BLOOD SPECIMENOrdering Facility: [facility] Address: [address] [place] [address] Performed By: #### 5 7021-8 ####[facility]OSPITALMASONLIA [id number] [place] [address] [place] MCV (RBC) [Entitic vol] 93.5 fL Normal 80.0-100.0 [facility] Comment on above: Order Comment: Speci men Type: BLOOD SPECIMENOrdering Facility: [facility] Address: [address] [place] [address] Performed By: #### 5 7021-8 ####[facility] HOSPITALKALEIGHA [id number] [place] [address] [place] Monocytes (Bld) [#/Vol] 0.70 10*3/uL Normal <0.87 [facility] Comment on above: Order Comment: Speci men Type: BLOOD SPECIMENOrdering Facility: [facility] Address: [address] [place] [address] Performed By: #### 5 7021-8 ####[facility] HOSPITALLIA [id number] [place] [address] [place] Monocytes/100 WBC (Bld) 7.8 % Normal [facility] Comment on above: Order Comment: Speci men Type: BLOOD SPECIMENOrdering Facility: [facility] Address: [address] [place] [address] Performed By: #### 5 7021-8 ####[facility]OSPITALNCLIA [id number] [place] [address] [place] Neutrophils (Bld) [#/Vol] 6.92 10*3/uL Normal 1.45-7.50 [facility] Comment on above: Order Comment: Speci men Type: BLOOD SPECIMENOrdering Facility: [facility] Address: [address] [place] [address] Performed By: #### 5 7021-8 ####[facility] ADRIANEFE [id number] [place] [address] [place] Neutrophils/100 WBC (Bld) 77.7 % Normal [facility] Comment on above: Order Comment: Speci men Type: BLOOD SPECIMENOrdering Facility: [facility] Address: [address] [place] [address] Performed By: #### 5 7021-8 ####[facility]PITALNCDEL[facility] [id number] [place] [address] [place] Nucleated RBC (Bld) [#/Vol] 10*3/uL Normal <0.01 [facility] Comment on above: Order Comment: Speci men Type: BLOOD SPECIMENOrdering Facility: [facility] Address: [address] [place] [address] Performed By: #### 5 7021-8 ####[facility] [id number] [place] [address] [place] Nucleated RBC/100 WBC (Bld) [Ratio] 0.0 /100 WBC Normal [facility] Comment on above: Order Comment: Speci men Type: BLOOD SPECIMENOrdering Facility: [facility] Address: [address] [place] [address] Performed By: #### 5 7021-8 ####[facility] [id number] [place] [address] [place] Platelet mean volume (Bld) [Entitic vol] 10.3 fL Normal 9.0-12.7 [facility] Comment on above: Order Comment: Speci men Type: BLOOD SPECIMENOrdering Facility: [facility] Address: [address] [place] [address] Performed By: #### 5 7021-8 ####[facility] SHEAWNCLIA [id number] [place] [address] [place] Platelets (Bld) [#/Vol] 285 10*3/uL Normal 150-400 [facility] Comment on above: Order Comment: Speci men Type: BLOOD SPECIMENOrdering Facility: [facility] Address: [address] [place] [address] Performed By: #### 5 7021-8 ####[facility]PITALNCLIA [id number] [place] [address] [place] [facility] [place] RBC (Bld) [#/Vol] 4.48 10*6/uL Normal 4.20-6.00 [facility] Comment on above: Order Comment: Speci men Type: BLOOD SPECIMENOrdering Facility: [facility] Address: [address] [place] [address] Performed By: #### 5 7021-8 ####[facility]PITALNCLIA [id number] [place] [address] [place] WBC (Bld) [#/Vol] 8.92 10*3/uL Normal 3.70-11.00 [facility] Comment on above: Order Comment: Speci men Type: BLOOD SPECIMENOrdering Facility: [facility] Address: [address] [place], [place] [address] Performed By: #### 5 7021-8 ####[facility]PITALNCLIA [id number] [place] [address] [place] CNOVSPon 09-19-2023 CNOVSP Visit (SP) Office (HEMAWS) ----- ALEX CARPENTER ([id number]) 1935 M Date Time Provider Department 09/19/23 [...] in 1998, 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 He had been [...] (Patient not taking: Reported on 07/11/2022) Fish Oil-[place]-3 Fatty Acids 500-300 mg ORAL Cap Take [...] I spent (more content not included)... Normal [facility] Comprehensive metabolic 2000 panelon 09-19-2023 Albumin [Mass/Vol] 4.0 g/dL Normal 3.9-4.[address] [facility] Comment on above: Order Comment: Speci men Type: BLOOD SPECIMENOrdering Facility: [facility] Address: [address] [place] [address] Performed By: #### 2 4323-8 ####[facility] [id number] [place] [address] [place] ALP [Catalytic activity/Vol] 88 U/L Normal 38-113 [facility] Comment on above: Order Comment: Speci men Type: BLOOD SPECIMENOrdering Facility: [facility] Address: [address] [place] [address] Performed By: #### 2 4323-8 ####[facility] [id number] [place] [address] [place] ALT [Catalytic activity/Vol] 11 U/L Normal 10-54 [facility] Comment on above: Order Comment: Speci men Type: BLOOD SPECIMENOrdering Facility: [facility] Address: [address] [place] [address] Performed By: #### 2 4323-8 ####[facility] [id number] [place] [address] [place] Anion gap [Moles/Vol] 11 mmol/L Normal 8-15 [facility] Comment on above: Order Comment: Speci men Type: BLOOD SPECIMENOrdering Facility: [facility] Address: [address] [place] [address] Performed By: #### 2 4323-8 ####[facility]ITALNCLIA [id number] [place] [address] [place] AST [Catalytic activity/Vol] 18 U/L Normal 14-40 [facility] Comment on above: Order Comment: Speci men Type: BLOOD SPECIMENOrdering Facility: [facility] Address: [address] [place] [address] Performed By: #### 2 4323-8 ####[facility] HOSPITALNCA [id number] [place] [address] [place] Bilirubin [Mass/Vol] 0.6 mg/dL Normal 0.2-1.3 [facility] Comment on above: Order Comment: Speci men Type: BLOOD SPECIMENOrdering Facility: [facility] Address: [address] [place] [address] Performed By: #### 2 4323-8 ####[facility]ITALNCLIA [id number] [place] [address] [place] Calcium [Mass/Vol] 9.5 mg/dL Normal 8.5-10.[address] [facility] Comment on above: Order Comment: Speci men Type: BLOOD SPECIMENOrdering Facility: [facility] Address: [address] [place] [address] Performed By: #### 2 4323-8 ####[facility] HOSPITALLIA [id number] [place] [address] [place] Chloride [Moles/Vol] 103 mmol/L Normal 98-107 [facility] Comment on above: Order Comment: Speci men Type: BLOOD SPECIMENOrdering Facility: [facility] Address: [address] [id number] Performed By: #### 2 4323-8 ####[facility] SHEAWNCLIA [id number] [place] [address] [place] CO2 [Moles/Vol] 30 mmol/L Normal 22-30 [facility] Comment on above: Order Comment: Speci men Type: BLOOD SPECIMENOrdering Facility: [facility] Address: [address] [place] [address] Performed By: #### 2 4323-8 ####[facility]ITALNCDEL[facility] [id number] [place] [address] [place] Creatinine [Mass/Vol] 1.09 mg/dL Normal 0.73-1.22 [facility] Comment on above: Order Comment: Speci men Type: BLOOD SPECIMENOrdering Facility: [facility] Address: [address] [place] [address] Performed By: #### 2 4323-8 ####[facility]ITALNCLIA [id number] [place] [address] [place] [address] [facility] Creatinine and Glomerular filtration rate.predicted panel (S/P/Bld) 66 mL/min/1.73m??? Normal >=60 [facility] Comment on above: Order Comment: Speci men Type: BLOOD SPECIMENOrdering Facility: [facility] Address: [address] [place] [address] Result Comment: Isabel mated Glomerular Filtration Rate [...] actual GFR. Performed By: #### 2 4323-8 ####[facility] HOSPITALWNCLIA [id number] [place] [address] [place] Glucose [Mass/Vol] 109 mg/dL High 74-[address] [facility] Comment on above: Order Comment: Speci men Type: BLOOD SPECIMENOrdering Facility: [facility] Address: [address] [place] [address] Result Comment: The [place] Diabetes [employer] (ADA) provides guidance for cutoff [...] Standards of Medical Care in Diabetes 2016, [place] [employer]. Diabetes Care. 2016.39(Suppl 1). Performed By: #### 2 4323-8 ####[facility] HOSPITALWMASONLIA [id number] [place] [address] [place] Potassium [Moles/Vol] 3.2 mmol/L Low 3.7-5.1 [facility] Comment on above: Order Comment: Edgard wood Type: BLOOD SPECIMENOrdering Facility: [facility] Address: [address] [place] [address] Performed By: #### 2 4323-8 ####[facility] HOSPITALWNCLIA [id number] [place] [address] [place] Protein [Mass/Vol] 6.3 g/dL Normal 6.3-8.[address] [facility] Comment on above: Order Comment: Libradoi men Type: BLOOD SPECIMENOrdering Facility: [facility] Address: [address] [place] [address] Performed By: #### 2 4323-8 ####[facility] HOSPITALWNCLIA [id number] [place] [address] [place] Sodium [Moles/Vol] 144 mmol/L Normal 136-[address] [facility] Comment on above: Order Comment: Speci men Type: BLOOD SPECIMENOrdering Facility: [facility] Address: [address] [place] [address] Performed By: #### 2 4323-8 ####[facility]ITALNCDEL[facility] [id number] [place] [address] [place] Urea nitrogen [Mass/Vol] 18 mg/dL Normal 9-24 [facility] Comment on above: Order Comment: Speci men Type: BLOOD SPECIMENOrdering Facility: [facility] Address: [address] [place] [address] Performed By: #### 2 4323-8 ####[facility]ITALNCDEL[facility] [id number] [place] [address] [place] PSA [facility] Prostate specific Ag [Mass/Vol] 0.15 ng/mL Normal <2.60 [facility] Comment on above: Order Comment: Speci men Type: BLOOD SPECIMENOrdering Facility: [facility] Address: [address] [place] [address] Result Comment: Tota l PSA test methodology used is the Electrochemiluminescence Immunoassay by [employer]. Total PSA values by differing methodologies cannot be interchanged. Performed By: #### 2 857-1 ####[facility] LABCLIA [id number] [facility] [address] [place] Absolute lymphocyte countOrd ered By: Marcos Ferraro on 10-15-2022 Lymphocytes Auto (Unsp spec) [#/Vol] 1.36 10*3/uL 0.83-4.51 [facility] Basophil percentageOrdered B y: Marcos Ferraro on 10-15-2022 Basophils/100 WBC (Bld) 0.4 % 0-1 [facility] Bilirubin [Mass/Vol] 1.10 mg/dL 0.20-1.00 [facility] Comment on above: For patients on eltr ombopag therapy, use of Dimension Paul TBIL is not recommended. Chloride [Moles/Vol] 108 mmol/L 98-107 [facility] Eosinophils/100 WBC (Bld) 3.0 % 0-5 [facility] Glucose [Mass/Vol] 124 mg/dL 74-106 [facility] Comment on above: Fasting Glucose resu lt from 100 to 125 mg/dL suggests IMPAIRED HOMEOSTASIS per A.D.A. criteria. Neutrophils (Bld) [#/Vol] 7.1 10*3/uL 2.0-7.7 [facility] Neutrophils/100 WBC (Bld) 73.5 % 47-70 [facility] Potassium [Moles/Vol] 3.1 mmol/L 3.5-5.1 [facility] Protein [Mass/Vol] 6.6 g/dL 6.4-8.2 [facility] Sodium [Moles/Vol] 143 mmol/L 136-145 [facility] WBC (Bld) [#/Vol] 9.7 10*3/uL 4.4-11.0 [facility] Blood erythrocytes count (nu mber/volume)Ordered By: Marcos Ferraro on 10-15-2022 RBC (Bld) [#/Vol] 4.38 10*6/uL 4.6-6.2 [facility] Blood hemoglobin measurement (mass/volume)Ordered By: Marcos Ferraro on 10-15-2022 Hemoglobin (Bld) [Mass/Vol] 13.9 g/dL 13.0-16.5 [facility] Blood lymphocytes/100 leukoc ytesOrdered By: Marcos Ferraro on 10-15-2022 Lymphocytes/100 WBC (Bld) 14.1 % 19-41 [facility] Blood monocytes/100 leukocyt esOrdered By: Marcos Ferraro on 10-15-2022 Monocytes/100 WBC (Bld) 8.5 % 0-10 [facility] Blood platelet mean volumeOr dered By: Marcos Ferraro on 10-15-2022 Platelet mean volume (Bld) [Entitic vol] 11.2 fL 6.2-12.0 [facility] Determination of erythrocyte mean corpuscular volume (MCV)Ordered By: Marcos Ferraro on 07-29-2023 MCV (RBC) [Entitic vol] 93.2 fL 80-94 [facility] Hematocrit Auto (Bld) [Volum e fraction]Ordered By: Marcos Ferraro on 10-15-2022 Hematocrit (Bld) [Volume fraction] 40.8 % 40-54 [facility] Laboratory - Chemistry and C hemistry - challengeOrdered By: Marcos Ferraro on 10-15-2022 ALP [Catalytic activity/Vol] 90 U/L 45-117 [facility] ALT [Catalytic activity/Vol] 21 U/L 16-61 [facility] CO2 [Moles/Vol] 30.0 mmol/L 21.0-32.0 [facility] Globulin (S) [Mass/Vol] 3.1 g/dL 2.2-4.2 [facility] Lipase [Catalytic activity/Vol] 29 U/L 13-75 [facility] Comment on above: Please note:LIPASE r evised reference range effective 22. New Lipase methodology. Expected to produce lower values than the previous assay method. NEW Reference Range: 13 - 75 U/L Urea nitrogen/Creatinine [Mass ratio] 18.6 mg/mg 10-20 [facility] - Hematology and Cell countsOrdered By: Marcos Ferraro on 10-15-2022 Erythrocyte distribution width (RBC) [Entitic vol] 43.7 fL 35.1-43.9 [facility] Erythrocyte distribution width (RBC) [Ratio] 12.7 % 11.6-14.6 [facility] Immature granulocytes/100 WBC (Bld) 0.500 % 0.0-0.9 [facility] Comment on above: IG% - Immature Granu locytes (promyelocytes, myelocytes and metamyelocytes) > 1% indicates that a LEFT SHIFT is Present. MCH (RBC) [Entitic mass] 31.7 pg 27.0-32.0 [facility] Nucleated RBC/100 WBC (Bld) [Ratio] 0 % 0-5 [facility] MCHC Auto (RBC) [Mass/Vol]Or dered By: Marcos Ferraro on 10-15-2022 MCHC (RBC) [Mass/Vol] 34.1 g/dL 32-36 [facility] No Panel InformationOrdered By: Marcos Ferraro on 10-15-2022 Estimated Creatinine Clearance Calc 43.47 ml/min [facility] Estimated GFR (MDRD) Amer 75 mL/min >60 [facility] Comment on above: GFR Calc Estimated GFR (MDRD) Non-Af Amer 62 mL/min >60 [facility] Comment on above: Non- GFR Calc Platelets bldOrdered By: Davide brittany Ronan on 10-15-2022 Platelets (Bld) [#/Vol] 254 10*3/uL 150-450 [facility] Serum or plasma albumin lilly urement (mass/volume)Ordered By: Marcos Ferraro on 10-15-2022 Albumin [Mass/Vol] 3.5 g/dL 3.2-5.0 [facility] Serum or plasma albumin/glob ulin mass ratioOrdered By: Marcos Ferraro on 10-15-2022 Albumin/Globulin [Mass ratio] 1.1 {ratio} 0.9-2.4 [facility] Serum or plasma calcium lilly urement (mass/volume)Ordered By: Marcos Ferraro on 10-15-2022 Calcium [Mass/Vol] 9.0 mg/dL 8.5-10.1 [facility] Serum or plasma creatinine m easurement (mass/volume)Ordered By: Marcos Ferraro on 10-15-2022 Creatinine [Mass/Vol] 1.18 mg/dL 0.70-1.30 [facility] Comment on above: The validity of the calculated GFR & GFRAA in patients over 70 years has not been determined. Clinical correlation is essential. Serum or plasma urea nitroge n measurement (mass/volume)Ordered By: Marcos Ferraro on 10-15-2022 Urea nitrogen [Mass/Vol] 22 mg/dL 7-18 [facility] Thin prep Papanicolaou smear with manual screeningOrdered By: Marcos Ferraro on 10-15-2022 Thin prep Papanicolaou smear with manual screening 21 U/L 15-37 [facility] Thin prep Papanicolaou smear with manual screening 5 5-15 [facility] Laboratory - Chemistry and C hemistry - challengeOrdered By: Dr. Subramanian on 07-28-2022 Albumin [Mass/Vol] 3.5 g/dL 2.9-4.4 [facility] Cobalamin (Vitamin B12) [Mass/Vol] 220 pg/mL 211-911 [facility] No Panel InformationOrdered By: Dr. Subramanian on 07-28-2022 Addendum Document Comment . [facility] Comment on above: The SPE pattern appe ars unremarkable. Evidence ofmonoclonal protein is not apparent.Performed at: [facility] [id number] Director: Hilton Gallegos PhD, Phone: [phone] Lalpc-6-Slgcpheer 0.2 g/dL 0.0-0.4 [facility] Qniih-8-Ahsjuffkn 0.7 g/dL 0.4-1.0 [facility] Gamma Globulins 0.6 g/dL 0.4-1.8 [facility] Thyroid Stimulating Hormone (TSH) 2.71 uIU/mL 0.358-3.74 [facility] Vitamin D 25-Hydroxy 65.8 ng/mL [facility] Comment on above: Vitamin D 25(OH) Sta tus Range Deficiency <20 ng/mL (50nmol/L) Insufficiency 20 - 30 ng/mL (50 - 75 nmol/L) Sufficiency 30 - 100 ng/mL (75 - 250 nmol/L) Toxicity >100 ng/mL (>250 nmol/L) Protein Fractions Elph [Inte rp]Ordered By: Dr. Subramanian on 07-28-2022 Protein Fractions [Interp] Comment . [facility] Comment on above: Protein electrophore sis scan will follow via computer,mail, or clergy member delivery. Serum albumin to globulin ra claudette by protein electrophoresisOrdered By: Dr. Subramanian on 07-28-2022 Albumin/Globulin Elph [Mass ratio] 1.5 0.7-1.7 [facility] Serum globulin measurement ( mass/volume)Ordered By: Dr. Subramanian on 07-28-2022 Globulin (S) [Mass/Vol] 2.4 g/dL 2.2-3.9 [facility] Serum or plasma beta globuli n measurement by electrophoresis (mass/volume)Ordered By: Dr. Subramanian on 07-28-2022 Beta globulin Elph [Mass/Vol] 0.9 g/dL 0.7-1.3 [facility] Serum or plasma folate measu rement (mass/volume)Ordered By: Dr. Subramanian on 07-28-2022 Folate [Mass/Vol] 10.30 ng/mL 3.1-55.4 [facility] Thin prep Papanicolaou smear with manual screeningOrdered By: Dr. Subramanian on 07-28-2022 Thin prep Papanicolaou smear with manual screening See comment [facility] Comment on above: NOT OBSERVED Total protein bloodOrdered B y: Dr. Subramanian on 07-28-2022 Protein [Mass/Vol] 5.9 g/dL 6.0-8.5 [facility] Absolute lymphocyte countOrd ered By: Dr. Staton on 06-22-2022 Lymphocytes Auto (Unsp spec) [#/Vol] 0.93 10*3/uL 0.83-4.51 [facility] Basophil percentageOrdered B y: Dr. Staton on 06-22-2022 Basophils/100 WBC (Bld) 0.7 % 0-1 [facility] Bilirubin [Mass/Vol] 0.40 mg/dL 0.20-1.00 [facility] Comment on above: For patients on eltr ombopag therapy, use of Dimension Paul TBIL is not recommended. Chloride [Moles/Vol] 109 mmol/L 98-107 [facility] Eosinophils/100 WBC (Bld) 5.5 % 0-5 [facility] Glucose [Mass/Vol] 112 mg/dL 74-106 [facility] Comment on above: Fasting Glucose resu lt from 100 to 125 mg/dL suggests IMPAIRED HOMEOSTASIS per A.D.A. criteria. Neutrophils (Bld) [#/Vol] 5.7 10*3/uL 2.0-7.7 [facility] Neutrophils/100 WBC (Bld) 70.4 % 47-70 [facility] Potassium [Moles/Vol] 4.0 mmol/L 3.5-5.1 [facility] Protein [Mass/Vol] 6.9 g/dL 6.4-8.2 [facility] Sodium [Moles/Vol] 142 mmol/L 136-145 [facility] WBC (Bld) [#/Vol] 8.1 10*3/uL 4.4-11.0 [facility] Basophil percentage 0 SEEN /hpf 0-5 [facility] Bilirubin Test strip Ql (U)O rdered By: Dr. Staton on 06-22-2022 Bilirubin Ql (U) Negative Negative [facility] Blood erythrocytes count (nu mber/volume)Ordered By: Dr. Staton on 06-22-2022 RBC (Bld) [#/Vol] 4.48 10*6/uL 4.6-6.2 [facility] Blood hemoglobin measurement (mass/volume)Ordered By: Dr. Staton on 06-22-2022 Hemoglobin (Bld) [Mass/Vol] 14.2 g/dL 13.0-16.5 [facility] Blood lymphocytes/100 leukoc ytesOrdered By: Dr. Staton on 06-22-2022 Lymphocytes/100 WBC (Bld) 11.6 % 19-41 [facility] Blood monocytes/100 leukocyt esOrdered By: Dr. Staton on 06-22-2022 Monocytes/100 WBC (Bld) 11.1 % 0-10 [facility] Blood platelet mean volumeOr dered By: Dr. Staton on 06-22-2022 Platelet mean volume (Bld) [Entitic vol] 10.3 fL 6.2-12.0 [facility] Determination of erythrocyte mean corpuscular volume (MCV)Ordered By: Dr. Staton on 06-22-2022 MCV (RBC) [Entitic vol] 96.4 fL 80-94 [facility] Hematocrit Auto (Bld) [Volum e fraction]Ordered By: Dr. Staton on 06-22-2022 Hematocrit (Bld) [Volume fraction] 43.2 % 40-54 [facility] Ketones Test strip Ql (U)Ord ered By: Dr. Staton on 06-22-2022 Ketones Ql (U) Negative Negative [facility] Laboratory - Chemistry and C hemistry - challengeOrdered By: Dr. Staton on 06-22-2022 ALP [Catalytic activity/Vol] 93 U/L 45-117 [facility] ALT [Catalytic activity/Vol] 17 U/L 16-61 [facility] CO2 [Moles/Vol] 28.0 mmol/L 21.0-32.0 [facility] Globulin (S) [Mass/Vol] 3.3 g/dL 2.2-4.2 [facility] Urea nitrogen/Creatinine [Mass ratio] 18.2 mg/mg 10-20 [facility] Laboratory - Hematology and Cell countsOrdered By: Dr. Staton on 06-22-2022 Erythrocyte distribution width (RBC) [Entitic vol] 45.6 fL 35.1-43.9 [facility] Erythrocyte distribution width (RBC) [Ratio] 12.8 % 11.6-14.6 [facility] Immature granulocytes/100 WBC (Bld) 0.700 % 0.0-0.9 [facility] Comment on above: IG% - Immature Granu locytes (promyelocytes, myelocytes and metamyelocytes) > 1% indicates that a LEFT SHIFT is Present. MCH (RBC) [Entitic mass] 31.7 pg 27.0-32.0 [facility] Nucleated RBC/100 WBC (Bld) [Ratio] 0 % 0-5 [facility] MCHC Auto (RBC) [Mass/Vol]Or dered By: Dr. Staton on 06-22-2022 MCHC (RBC) [Mass/Vol] 32.9 g/dL 32-36 [facility] Mucus LM Ql (Urine sed)Order ed By: Dr. Staton on 06-22-2022 Mucus Ql (Urine sed) 0 SEEN /hpf [facility] Nitrite Test strip Ql (U)Ord ered By: Dr. Staton on 06-22-2022 Nitrite Ql (U) Negative Negative [facility] No Panel InformationOrdered By: Dr. Staton on 06-22-2022 Estimated Creatinine Clearance Calc 43.18 ml/min [facility] Estimated GFR (MDRD) Amer 73 mL/min >60 [facility] Comment on above: GFR Calc Estimated GFR (MDRD) Non-Af Amer 61 mL/min >60 [facility] Comment on above: Non- GFR Calc Platelets bldOrdered By: Dr. Staton on 06-22-2022 Platelets (Bld) [#/Vol] 282 10*3/uL 150-450 [facility] Protein Test strip Ql (U)Ord ered By: Dr. Staton on 06-22-2022 Protein Ql (U) Negative Negative [facility] Serum or plasma albumin lilly urement (mass/volume)Ordered By: Dr. Staton on 06-22-2022 Albumin [Mass/Vol] 3.6 g/dL 3.2-5.0 [facility] Serum or plasma albumin/glob ulin mass ratioOrdered By: Dr. Staton on 06-22-2022 Albumin/Globulin [Mass ratio] 1.1 {ratio} 0.9-2.4 [facility] Serum or plasma calcium lilly urement (mass/volume)Ordered By: Dr. Staton on 06-22-2022 Calcium [Mass/Vol] 8.8 mg/dL 8.5-10.1 [facility] Serum or plasma creatinine m easurement (mass/volume)Ordered By: Dr. Staton on 06-22-2022 Creatinine [Mass/Vol] 1.21 mg/dL 0.70-1.30 [facility] Comment on above: The validity of the calculated GFR & GFRAA in patients over 70 years has not been determined. Clinical correlation is essential. Serum or plasma urea nitroge n measurement (mass/volume)Ordered By: Dr. Staton on 06-22-2022 Urea nitrogen [Mass/Vol] 22 mg/dL 7-18 [facility] Squamous epithelial cells de tection in urine sediment by light microscopyOrdered By: Dr. Staton on 06-22-2022 Epithelial cells.squamous LM Ql (Urine sed) 0 SEEN /hpf 0-5 [facility] Thin prep Papanicolaou smear with manual screeningOrdered By: Dr. Staton on 06-22-2022 Thin prep Papanicolaou smear with manual screening 17 U/L 15-37 [facility] Thin prep Papanicolaou smear with manual screening 5 5-15 [facility] Urine blood detectionOrdered By: Dr. Staton on 06-22-2022 RBC Ql (U) Negative Negative [facility] RBC Ql (U) 0 SEEN /hpf 0-5 [facility] Urine clarityOrdered By: Dr. Staton on 06-22-2022 Clarity (U) Clear Clear [facility] Urine color determinationOrd ered By: Dr. Staton on 06-22-2022 Color (U) Yellow Yellow [facility] Urine glucose detectionOrder ed By: Dr. Staton on 06-22-2022 Glucose Ql (U) Normal mg/dl Normal [facility] Urine leukocyte esterase det ection by dipstickOrdered By: Dr. Staton on 06-22-2022 Leukocyte esterase Test strip Ql (U) Negative Negative [facility] Urine pHOrdered By: Dr. Olson ht on 06-22-2022 pH (U) 7.0 [pH] 5.0 - 8.0 [facility] Urine sediment bacteria coun t by microscopy (number/high power field)Ordered By: Dr. Staton on 06-22-2022 Bacteria LM.HPF (Urine sed) [#/Area] RARE /hpf None Seen [facility] Urine specific gravity measu rementOrdered By: Dr. Staton on 06-22-2022 Specific gravity (U) [Rel density] 1.010 1.002-1.030 [facility] Urobilinogen Auto test strip Ql (U)Ordered By: Dr. Staton on 06-22-2022 Urobilinogen Ql (U) Normal mg/dl Normal [facility] VITAMIN D 25 HYDROXYon 10-08 25-hydroxyvitamin D3 [Mass/Vol] 24.6 ng/mL Low 31.0 - 80.0 ng/mL [facility] UA DIP, URINE (POC)on 2021 BILIRUBIN UA (POCT) Negative Negative [facility] CLARITY UA (POCT) Cloudy [facility] COLOR UA (POCT) Dark yellow [facility] GLUCOSE UA (POCT) Negative Negative mg/dL [facility] HEMOGLOBIN/BLOOD UA (POCT) Negative Negative [facility] KETONE UA (POCT) Negative Negative mg/dL [facility] LEUKOCYTES UA (POCT) Negative Negative [facility] NITRITE UA (POCT) Negative Negative [facility] PH UA (POCT) 7.5 4.5 - 8.0 [facility] Protein Ql (U) Negative Negative mg/dL [facility] SPECIFIC GRAVITY UA (POCT) 1.020 1.005 - 1.030 [facility] UROBILINOGEN UA (POCT) 1.0 E.U./dL Vijaya l E.U./dL [facility] Basophil percentageon 2021 Chloride [Moles/Vol] 107 mmol/L 98-107 [facility] Work Phone: Glucose [Mass/Vol] 109 mg/dL 74-106 [facility] Work Phone: Comment on above: Fasting Glucose resu lt from 100 to 125 mg/dL suggests IMPAIRED HOMEOSTASIS per A.D.A. criteria. Potassium [Moles/Vol] 3.2 mmol/L 3.5-5.1 [facility] Work Phone: Sodium [Moles/Vol] 143 mmol/L 136-145 [facility] Work Phone: Erythrocyte sedimentation ra brigid 09-17-2021 ESR (Bld) [Velocity] 28 mm/h 0-20 [facility] Work Phone: Interpretation of Borrelia b urgdorferi antibody assayon 09-17-2021 B. burgdorferi Ab (S) [Interp] REF LAB [facility] Work Phone: Laboratory - Chemistry and C hemistry - challengeon 09-17-2021 CO2 [Moles/Vol] 28.0 mmol/L 21.0-32.0 [facility] Work Phone: Magnesium [Mass/Vol] 2.4 mg/dL 1.6-2.6 [facility] Work Phone: Urea nitrogen/Creatinine [Mass ratio] 21.9 mg/mg 10- [facility] Work Phone: No Panel Informationon 09-17 C-Reactive Protein High Sensitivity 5.03 mg/L <3.00 [facility] Work Phone: Comment on above: Low Relative Risk of CVD <1.0 mg/L Average Relative Risk of CVD 1.0 - 3.0 mg/L High Relative Risk of CVD >3.0 mg/L Estimated GFR (MDRD) Amer 96 mL/min >60 [facility] Work Phone: Comment on above: GFR Calc Estimated GFR (MDRD) Non-Af Amer 79 mL/min >60 [facility] Work Phone: Comment on above: Non- GFR Calc Prostate Specific Antigen Total 246.00 ng/mL 0.0-4.0 [facility] Work Phone: Comment on above: This test was perfor med using the TPSA assay method for clypd chemistry system. Values obtained with differentassay methods cannot be used interchangably.When changing PSA assays in the course of monitoring apatient, additional sequential testing should be carriedout to confirm baseline values. Serum or plasma C reactive p rotein measurement (mass/volume)on 09-17-2021 CRP [Mass/Vol] 5.97 mg/L 0.0-3.0 [facility] Work Phone: Comment on above: C-Reactive Protein ( CRP) provides useful information for thediagnosis, therapy and monitoring of inflammatory processesand associated diseases. For the evaluation of Relative Riskfor Cardiovascular Disease, a High Sensitivity CRP (HSCRP)should be ordered. Serum or plasma calcium lilly urement (mass/volume)on 09-17-2021 Calcium [Mass/Vol] 9.0 mg/dL 8.5-10.1 [facility] Work Phone: Serum or plasma creatinine m easurement (mass/volume)on 09-17-2021 Creatinine [Mass/Vol] 0.96 mg/dL 0.70-1.30 [facility] Work Phone: Comment on above: The validity of the calculated GFR & GFRAA in patients over 70 years has not been determined. Clinical correlation is essential. Serum or plasma urea nitroge n measurement (mass/volume)on 09-17-2021 Urea nitrogen [Mass/Vol] 21 mg/dL 7-18 [facility] Work Phone: Thin prep Papanicolaou smear with manual screeningon 09-17-2021 Thin prep Papanicolaou smear with manual screening 8 5-15 [facility] Work Phone: Thin prep Papanicolaou smear with manual screening Negative Negative [facility] Work Phone: Comment on above: Lyme Antibody Negati veNo laboratory evidence of infection with B. burgdorferi(Lyme disease). Negative results may occur in patientsrecently infected (greater than or equal to 14 days) withB. burgdorferi. If recent infection is suspected, repeattesting on a new sample collected in 7 to 14 days isrecommended.Performed at: [facility], [place] [id number] Director: Hilton Gallegos PhD, Phone: [phone] Absolute lymphocyte counton 08-31-2021 Lymphocytes Auto (Unsp spec) [#/Vol] 1.28 10*3/uL 0.83-4.51 [facility] Work Phone: [phone] Basophil percentageon 2021 Basophils/100 WBC (Bld) 0.3 % 0-1 [facility] Work Phone: [phone] Bilirubin [Mass/Vol] 0.80 mg/dL 0.20-1.00 [facility] Work Phone: [phone] Comment on above: For patients on eltr ombopag therapy, use of Dimension Paul TBIL is not recommended. Chloride [Moles/Vol] 104 mmol/L 98-107 [facility] Work Phone: [phone] Eosinophils/100 WBC (Bld) 0.8 % 0-5 [facility] Work Phone: [phone] Glucose [Mass/Vol] 125 mg/dL 74-106 [facility] Work Phone: [phone] Comment on above: Fasting Glucose resu lt from 100 to 125 mg/dL suggests IMPAIRED HOMEOSTASIS per A.D.A. criteria. Neutrophils (Bld) [#/Vol] 16.0 10*3/uL 2.0-7.7 [facility] Work Phone: [phone] Neutrophils/100 WBC (Bld) 83.5 % 47-70 [facility] Work Phone: [phone] Potassium [Moles/Vol] 4.5 mmol/L 3.5-5.1 [facility] Work Phone: [phone] Comment on above: Moderate Hemolysis, Result may be falsely increased. Protein [Mass/Vol] 6.8 g/dL 6.4-8.2 [facility] Work Phone: [phone] Sodium [Moles/Vol] 138 mmol/L 136-145 [facility] Work Phone: [phone] WBC (Bld) [#/Vol] 19.1 10*3/uL 4.4-11.0 [facility] Work Phone: Basophil percentage 0 SEEN /hpf 0-5 [facility] Work Phone: Bilirubin Test strip Ql (U)o n 08-31-2021 Bilirubin Ql (U) Negative Negative [facility] Work Phone: [phone] Blood erythrocytes count (nu mber/volume)on 08-31-2021 RBC (Bld) [#/Vol] 4.35 10*6/uL 4.6-6.2 [facility] Work Phone: [phone] Blood hemoglobin measurement (mass/volume)on 08-31-2021 Hemoglobin (Bld) [Mass/Vol] 13.4 g/dL 13.0-16.5 [facility] Work Phone: Blood lymphocytes/100 leukoc yteson 08-31-2021 Lymphocytes/100 WBC (Bld) 6.7 % 19-41 [facility] Work Phone: Blood monocytes/100 leukocyt eson 08-31-2021 Monocytes/100 WBC (Bld) 7.7 % 0-10 [facility] Work Phone: Blood platelet mean volumeon 08-31-2021 Platelet mean volume (Bld) [Entitic vol] 9.7 fL 6.2-12.0 [facility] Work Phone: [phone] Calcium oxalate crystals det ection in urine sediment by light microscopyon 08-31-2021 Calcium oxalate crystals LM Ql (Urine sed) RARE /hpf [facility] Work Phone: [phone] Determination of erythrocyte mean corpuscular volume (MCV)on 08-31-2021 MCV (RBC) [Entitic vol] 91.0 fL 80-94 [facility] Work Phone: Hematocrit Auto (Bld) [Volum e fraction]on 08-31-2021 Hematocrit (Bld) [Volume fraction] 39.6 % 40-54 [facility] Work Phone: [phone] Ketones Test strip Ql (U)on 08-31-2021 Ketones Ql (U) Negative Negative [facility] Work Phone: [phone] Laboratory - Chemistry and C hemistry - challengeon 08-31-2021 ALP [Catalytic activity/Vol] 95 U/L 45-117 [facility] Work Phone: ALT [Catalytic activity/Vol] 20 U/L 16-61 [facility] Work Phone: CO2 [Moles/Vol] 30.0 mmol/L 21.0-32.0 [facility] Work Phone: [phone] Globulin (S) [Mass/Vol] 3.9 g/dL 2.2-4.2 [facility] Work Phone: [phone] Urea nitrogen/Creatinine [Mass ratio] 15.4 mg/mg 10-20 [facility] Work Phone: [phone] Laboratory - Hematology and Cell countson 08-31-2021 Erythrocyte distribution width (RBC) [Entitic vol] 43.2 fL 35.1-43.9 [facility] Work Phone: [phone] Erythrocyte distribution width (RBC) [Ratio] 13.0 % 11.6-14.6 [facility] Work Phone: [phone] Immature granulocytes/100 WBC (Bld) 1.000 % 0.0-0.9 [facility] Work Phone: [phone] Comment on above: IG% - Immature Granu locytes (promyelocytes, myelocytes and metamyelocytes) > 1% indicates that a LEFT SHIFT is Present. MCH (RBC) [Entitic mass] 30.8 pg 27.0-32.0 [facility] Work Phone: Nucleated RBC/100 WBC (Bld) [Ratio] 0 % 0-5 [facility] Work Phone: MCHC Auto (RBC) [Mass/Vol]on 08-31-2021 MCHC (RBC) [Mass/Vol] 33.8 g/dL 32-[address] Work Phone: Mucus LM Ql (Urine sed)on Mucus Ql (Urine sed) 0 SEEN /hpf [facility] Work Phone: Nitrite Test strip Ql (U)on 08-31-2021 Nitrite Ql (U) Negative Negative [facility] Work Phone: No Panel Informationon 08-31 Estimated Creatinine Clearance Calc 44.66 ml/min [facility] Work Phone: Estimated GFR (MDRD) Amer 76 mL/min >60 [facility] Work Phone: Comment on above: GFR Calc Estimated GFR (MDRD) Non-Af Amer 63 mL/min >60 [facility] Work Phone: Comment on above: Non- GFR Calc Troponin I High Sensitivity 12 pg/mL 3.0-78.0 [facility] Work Phone: Comment on above: Please Note: New Selin t Units and Gender Specific Reference Ranges. For more information see Policy Stat Procedure Paul High Sensitivity Troponin (TNIH) and attachments. Platelets bldon 08-31-2021 Platelets (Bld) [#/Vol] 334 10*3/uL 150-450 [facility] Work Phone: Protein Test strip Ql (U)on 08-31-2021 Protein Ql (U) Negative Negative [facility] Work Phone: Serum or plasma albumin lilly urement (mass/volume)on 08-31-2021 Albumin [Mass/Vol] 2.9 g/dL 3.2-5.0 [facility] Work Phone: Serum or plasma albumin/glob ulin mass ratioon 08-31-2021 Albumin/Globulin [Mass ratio] 0.7 {ratio} 0.9-2.4 [facility] Work Phone: Serum or plasma calcium lilly urement (mass/volume)on 08-31-2021 Calcium [Mass/Vol] 8.7 mg/dL 8.5-10.1 [facility] Work Phone: Serum or plasma creatinine m easurement (mass/volume)on 08-31-2021 Creatinine [Mass/Vol] 1.17 mg/dL 0.70-1.30 [facility] Work Phone: Comment on above: The validity of the calculated GFR & GFRAA in patients over 70 years has not been determined. Clinical correlation is essential. Serum or plasma urea nitroge n measurement (mass/volume)on 08-31-2021 Urea nitrogen [Mass/Vol] 18 mg/dL 7-18 [facility] Work Phone: Squamous epithelial cells de tection in urine sediment by light microscopyon 08-31-2021 Epithelial cells.squamous LM Ql (Urine sed) 0 SEEN /hpf 0-5 [facility] Work Phone: Thin prep Papanicolaou smear with manual screeningon 08-31-2021 Thin prep Papanicolaou smear with manual screening 43 U/L 15-37 [facility] Work Phone: Comment on above: Moderate Hemolysis, Result may be falsely increased. Thin prep Papanicolaou smear with manual screening 4 5-15 [facility] Work Phone: Urine blood detectionon 08-18 RBC Ql (U) 10 /ul Negative [facility] Work Phone: RBC Ql (U) 0-5 SEEN /hpf 0-5 [facility] Work Phone: Urine clarityon 08-31-2021 Clarity (U) Clear Clear [facility] Work Phone: Urine color determinationon 08-31-2021 Color (U) Yellow Yellow [facility] Work Phone: Urine glucose detectionon Glucose Ql (U) Normal mg/dl Normal [facility] Work Phone: Urine leukocyte esterase det ection by dipstickon 08-31-2021 Leukocyte esterase Test strip Ql (U) Negative Negative [facility] Work Phone: Urine pHon 08-31-2021 pH (U) 6.0 [pH] 5.0 - 8.0 [facility] Work Phone: Urine sediment bacteria coun t by microscopy (number/high power field)on 08-31-2021 Bacteria LM.HPF (Urine sed) [#/Area] RARE /hpf None Seen [facility] Work Phone: Urine specific gravity measu rementon 08-31-2021 Specific gravity (U) [Rel density] 1.025 1.002-1.030 [facility] Work Phone: Urobilinogen Auto test strip Ql (U)on 08-31-2021 Urobilinogen Ql (U) Normal mg/dl Normal [facility] Work Phone: Basophil percentageon 2021 Chloride [Moles/Vol] 103 mmol/L 98-107 [facility] Work Phone: Glucose [Mass/Vol] 126 mg/dL 74-106 [facility] Work Phone: Comment on above: Fasting Glucose resu lt greater than or equal to 126 mg/dL suggests DIABETES MELLITUS per A.D.A. criteria. Potassium [Moles/Vol] 3.8 mmol/L 3.5-5.1 [facility] Work Phone: Sodium [Moles/Vol] 140 mmol/L 136-145 [facility] Work Phone: Interpretation of Borrelia b urgdorferi antibody assayon 08-24-2021 B. burgdorferi Ab (S) [Interp] REF LAB [facility] Work Phone: Laboratory - Chemistry and C hemistry - challengeon 08-24-2021 CO2 [Moles/Vol] 31.0 mmol/L 21.0-32.0 [facility] Work Phone: Magnesium [Mass/Vol] 2.4 mg/dL 1.6-2.6 [facility] Work Phone: Urea nitrogen/Creatinine [Mass ratio] 15.9 mg/mg 10-20 [facility] Work Phone: No Panel Informationon 08-24 Estimated GFR (MDRD) Amer 70 mL/min >60 [facility] Work Phone: Comment on above: GFR Calc Estimated GFR (MDRD) Non-Af Amer 58 mL/min >60 [facility] Work Phone: Comment on above: Non- GFR Calc Serum or plasma C reactive p rotein measurement (mass/volume)on 08-24-2021 CRP [Mass/Vol] 107.00 mg/L 0.0-3.0 [facility] Work Phone: Comment on above: C-Reactive Protein ( CRP) provides useful information for thediagnosis, therapy and monitoring of inflammatory processesand associated diseases. For the evaluation of Relative Riskfor Cardiovascular Disease, a High Sensitivity CRP (HSCRP)should be ordered. Serum or plasma calcium lilly urement (mass/volume)on 08-24-2021 Calcium [Mass/Vol] 8.9 mg/dL 8.5-10.1 [facility] Work Phone: Serum or plasma creatinine m easurement (mass/volume)on 08-24-2021 Creatinine [Mass/Vol] 1.26 mg/dL 0.70-1.30 [facility] Work Phone: Comment on above: The validity of the calculated GFR & GFRAA in patients over 70 years has not been determined. Clinical correlation is essential. Serum or plasma urea nitroge n measurement (mass/volume)on 08-24-2021 Urea nitrogen [Mass/Vol] 20 mg/dL 7-18 [facility] Work Phone: Thin prep Papanicolaou smear with manual screeningon 08-24-2021 Thin prep Papanicolaou smear with manual screening 6 5-15 [facility] Work Phone: Thin prep Papanicolaou smear with manual screening Negative Negative [facility] Work Phone: Comment on above: Lyme Antibody Negati veNo laboratory evidence of infection with B. burgdorferi(Lyme disease). Negative results may occur in patientsrecently infected (greater than or equal to 14 days) withB. burgdorferi. If recent infection is suspected, repeattesting on a new sample collected in 7 to 14 days isrecommended.Performed at[facility] [id number] [place], [place] [id number] Director: Hilton Gallegos PhD, Phone: [phone] Absolute lymphocyte counton 08-16-2021 Lymphocytes Auto (Unsp spec) [#/Vol] 0.92 10*3/uL 0.83-4.51 [facility] Work Phone: Basophil percentageon 2021 Basophils/100 WBC (Bld) 0.2 % 0-1 [facility] Work Phone: [phone] Chloride [Moles/Vol] 101 mmol/L 98-107 [facility]: [phone] Eosinophils/100 WBC (Bld) 0.6 % 0-5 [facility] Work Phone: [phone] Glucose [Mass/Vol] 130 mg/dL 74-106 [facility] Work Phone: [phone] Comment on above: Fasting Glucose resu lt greater than or equal to 126 mg/dL suggests DIABETES MELLITUS per A.D.A. criteria. Neutrophils (Bld) [#/Vol] 10.1 10*3/uL 2.0-7.7 [facility] Work Phone: [phone] Neutrophils/100 WBC (Bld) 81.7 % 47-70 [facility] Work Phone: [phone] Potassium [Moles/Vol] 3.0 mmol/L 3.5-5.1 [facility] Work Phone: [phone] Sodium [Moles/Vol] 136 mmol/L 136-145 [facility] Work Phone: [phone] WBC (Bld) [#/Vol] 12.4 10*3/uL 4.4-11.0 [facility] Work Phone: Blood erythrocytes count (nu mber/volume)on 08-16-2021 RBC (Bld) [#/Vol] 4.07 10*6/uL 4.6-6.2 [facility] Work Phone: Blood hemoglobin measurement (mass/volume)on 08-16-2021 Hemoglobin (Bld) [Mass/Vol] 12.7 g/dL 13.0-16.5 [facility] Work Phone: Blood lymphocytes/100 leukoc yteson 08-16-2021 Lymphocytes/100 WBC (Bld) 7.4 % 19-41 [facility] Work Phone: Blood monocytes/100 leukocyt eson 08-16-2021 Monocytes/100 WBC (Bld) 9.3 % 0-10 [facility] Work Phone: Blood platelet mean volumeon 08-16-2021 Platelet mean volume (Bld) [Entitic vol] 10.1 fL 6.2-12.0 [facility] Work Phone: [phone] Determination of erythrocyte mean corpuscular volume (MCV)on 08-16-2021 MCV (RBC) [Entitic vol] 93.1 fL 80-94 [facility] Work Phone: [phone] Erythrocyte sedimentation ra brigid 08-16-2021 ESR (Bld) [Velocity] 36 mm/h 0-20 [facility] Work Phone: Hematocrit Auto (Bld) [Volum e fraction]on 08-16-2021 Hematocrit (Bld) [Volume fraction] 37.9 % 40-54 [facility] Work Phone: [phone] Laboratory - Chemistry and C hemistry - challengeon 08-16-2021 CO2 [Moles/Vol] 31.0 mmol/L 21.0-32.0 [facility] Work Phone: [phone] Urea nitrogen/Creatinine [Mass ratio] 14.5 mg/mg 10-20 [facility] Work Phone: Laboratory - Hematology and Cell countson 08-16-2021 Erythrocyte distribution width (RBC) [Entitic vol] 43.8 fL 35.1-43.9 [facility] Work Phone: [phone] Erythrocyte distribution width (RBC) [Ratio] 12.8 % 11.6-14.6 [facility] Work Phone: [phone] Immature granulocytes/100 WBC (Bld) 0.800 % 0.0-0.9 [facility] Work Phone: Comment on above: IG% - Immature Granu locytes (promyelocytes, myelocytes and metamyelocytes) > 1% indicates that a LEFT SHIFT is Present. MCH (RBC) [Entitic mass] 31.2 pg 27.0-32.0 [facility] Work Phone: Nucleated RBC/100 WBC (Bld) [Ratio] 0 % 0-5 [facility] Work Phone: MCHC Auto (RBC) [Mass/Vol]on 08-16-2021 MCHC (RBC) [Mass/Vol] 33.5 g/dL 32-36 [facility] Work Phone: No Panel Informationon 08-16 Estimated Creatinine Clearance Calc 48.36 ml/min [facility] Work Phone: Estimated GFR (MDRD) Amer 82 mL/min >60 [facility] Work Phone: Comment on above: GFR Calc Estimated GFR (MDRD) Non-Af Amer 68 mL/min >60 [facility] Work Phone: Comment on above: Non- GFR Calc Platelets bldon 08-16-2021 Platelets (Bld) [#/Vol] 302 10*3/uL 150-450 [facility] Work Phone: Serum or plasma C reactive p rotein measurement (mass/volume)on 08-16-2021 CRP [Mass/Vol] 104.00 mg/L 0.0-3.0 [facility] Work Phone: Comment on above: C-Reactive Protein ( CRP) provides useful information for thediagnosis, therapy and monitoring of inflammatory processesand associated diseases. For the evaluation of Relative Riskfor Cardiovascular Disease, a High Sensitivity CRP (HSCRP)should be ordered. Serum or plasma calcium lilly urement (mass/volume)on 08-16-2021 Calcium [Mass/Vol] 8.6 mg/dL 8.5-10.1 [facility] Work Phone: Serum or plasma creatinine m easurement (mass/volume)on 08-16-2021 Creatinine [Mass/Vol] 1.10 mg/dL 0.70-1.30 [facility] Work Phone: Comment on above: The validity of the calculated GFR & GFRAA in patients over 70 years has not been determined. Clinical correlation is essential. Serum or plasma urea nitroge n measurement (mass/volume)on 08-16-2021 Urea nitrogen [Mass/Vol] 16 mg/dL 7-18 [facility] Work Phone: Thin prep Papanicolaou smear with manual screeningon 08-16-2021 Thin prep Papanicolaou smear with manual screening 4 5-15 [facility] Work Phone: Vital Signs Date Time Vital Sign Value Performing Clinician Facility 09-29-2024 09:37-0400 Body height 172.[address] Otto Subramanian MD Work Phone: [facility] 09-29-2024 09:37-0400 Body mass index (BMI) [Ratio] 27.3 kg/m2 Dr. Otto Subramanian MD Work Phone: [facility] 09-29-2024 09:37-0400 Body temperature 98.5 [degF] Dr. Otto Subramanian MD Work Phone: [facility] 09-29-2024 09:37-0400 Body weight 81.[address] Otto Subramanian MD Work Phone: [facility] 09-29-2024 09:37-0400 Diastolic blood pressure 62 mm[Hg] Dr. Otto Subramanian MD Work Phone: [facility] 09-29-2024 09:37-0400 Heart rate 86 /min Dr. Otto Subramanian MD Work Phone: [facility] 09-29-2024 09:37-0400 Respiratory rate 16 /min Dr. Otto Subramanian MD Work Phone: [facility] 09-29-2024 09:37-0400 SaO2% (BldA) [Mass fraction] 98 % Dr. Otto Subramanian MD Work Phone: [facility] 09-29-2024 09:37-0400 Systolic blood pressure 108 mm[Hg] Dr. Otto Subramanian MD Work Phone: [facility] 09-26-2024 08:11-0400 Body height 172.[address] Otto Subramanian MD Work Phone: [facility] 09-26-2024 08:11-0400 Body mass index (BMI) [Ratio] 27.3 kg/m2 Dr. Otto Subramanian MD Work Phone: [facility] 09-26-2024 08:11-0400 Body weight 81.[address] Otto Subramanian MD Work Phone: [facility] 09-26-2024 08:11-0400 Diastolic blood pressure 86 mm[Hg] Dr. Otto Subramanian MD Work Phone: [facility] 09-26-2024 08:11-0400 Heart rate 72 /min Dr. Otto Subramanian MD Work Phone: [facility] 09-26-2024 08:11-0400 Respiratory rate 16 /min Dr. Otto Subramanian MD Work Phone: [facility] 09-26-2024 08:11-0400 Systolic blood pressure 143 mm[Hg] Dr. Otto Subramanian MD Work Phone: [facility] 08-20-2024 13:13-0400 Body mass index (BMI) [Ratio] 29.05 kg/m2 Crissy Mai Work Phone: [facility] 08-20-2024 13:13-0400 Body temperature 98.49 [degF] Crissy Mai Work Phone: [facility] 08-20-2024 13:13-0400 Body weight 84.14 kg Crissy Mai Work Phone: [facility] 08-20-2024 13:13-0400 Diastolic blood pressure 82 mm[Hg] Crissy Mai Work Phone: [facility] 08-20-2024 13:13-0400 Heart rate 83 /min Crissy Mai Work Phone: [facility] 08-20-2024 13:13-0400 SaO2% (BldA) [Mass fraction] 98 % Crissy Mai Work Phone: [facility] 08-20-2024 13:13-0400 Systolic blood pressure 142 mm[Hg] Crissy Romanight Work Phone: [facility] 06-27-2024 10:38-0400 Body height 172.[address] Otto Subramanian MD Work Phone: [facility] 06-27-2024 10:38-0400 Body mass index (BMI) [Ratio] 28.5 kg/m2 Dr. Otto Subramanian MD Work Phone: [facility] 06-27-2024 10:38-0400 Body weight 85.[address] Otto Subramanian MD Work Phone: [facility] 06-27-2024 10:38-0400 Diastolic blood pressure 80 mm[Hg] Dr. Otto Subramanian MD Work Phone: [facility] 06-27-2024 10:38-0400 Heart rate 87 /min Dr. Otto Subramanian MD Work Phone: [facility] 06-27-2024 10:38-0400 Respiratory rate 18 /min Dr. Otto Subramanian MD Work Phone: [facility] 06-27-2024 10:38-0400 SaO2% (BldA) [Mass fraction] 97 % Dr. Otto Subramanian MD Work Phone: [facility] 06-27-2024 10:38-0400 Systolic blood pressure 134 mm[Hg] Dr. Otto Subramanian MD Work Phone: [facility] 06-18-2024 13:43-0400 Diastolic blood pressure 73 mm[Hg] Leisa Robb PA-C Work Phone: [facility] 06-18-2024 13:43-0400 Heart rate 82 /min Leisa Robb PA-C Work Phone: [facility] 06-18-2024 13:43-0400 SaO2% (BldA) [Mass fraction] 97 % Leisa Robb PA-C Work Phone: [facility] 06-18-2024 13:43-0400 Systolic blood pressure 123 mm[Hg] Leisa Robb PA-C Work Phone: [facility] 05-28-2024 12:47-0400 Body mass index (BMI) [Ratio] 30.07 kg/m2 Everett Aldrich MD Work Phone: [facility] 05-28-2024 12:47-0400 Body temperature 98.1 [degF] Everett Aldrich MD Work Phone: [facility] 05-28-2024 12:47-0400 Body weight 87.09 kg Everett Aldrich MD Work Phone: [facility] 05-28-2024 12:47-0400 Diastolic blood pressure 73 mm[Hg] Everett Aldrich MD Work Phone: [facility] 05-28-2024 12:47-0400 Heart rate 110 /min Everett Aldrich MD Work Phone: [facility] 05-28-2024 12:47-0400 SaO2% (BldA) [Mass fraction] 97 % Everett Aldrich MD Work Phone: [facility] 05-28-2024 12:47-0400 Systolic blood pressure 111 mm[Hg] Everett Aldrich MD Work Phone: [facility] 05-24-2024 10:52-0500 Body mass index (BMI) [Ratio] 30.67 kg/m2 Kaushal Stockton Jr., MD Work Phone: [facility] 05-24-2024 10:52-0500 Body weight 88.81 kg Kaushal Stockton Jr., MD Work Phone: [facility] 03-07-2025 10:52-0500 Diastolic blood pressure 86 mm[Hg] Kaushal Stockton Jr., MD Work Phone: [facility] 05-24-2024 10:52-0500 Heart rate 65 /min Kaushal Stockton Jr., MD Work Phone: [facility] 05-24-2024 10:52-0500 SaO2% (BldA) [Mass fraction] 96 % Kaushal Stockton Jr., MD Work Phone: [facility] 05-24-2024 10:52-0500 Systolic blood pressure 142 mm[Hg] Kaushal Stockton Jr., MD Work Phone: [facility] 03-05-2024 10:11-0500 Body mass index (BMI) [Ratio] 31.72 kg/m2 Everett Aldrich MD Work Phone: [facility] 03-05-2024 10:11-0500 Body temperature 98.49 [degF] Everett Aldrich MD Work Phone: [facility] 03-05-2024 10:11-0500 Body weight 91.85 kg Everett Aldrich MD Work Phone: [facility] 03-05-2024 10:11-0500 Diastolic blood pressure 81 mm[Hg] Everett Aldrich MD Work Phone: [facility] 03-05-2024 10:11-0500 Heart rate 81 /min Everett Aldrich MD Work Phone: [facility] 03-05-2024 10:11-0500 SaO2% (BldA) [Mass fraction] 96 % Everett Aldrich MD Work Phone: [facility] 03-05-2024 10:11-0500 Systolic blood pressure 129 mm[Hg] Everett Aldrich MD Work Phone: [facility] 01-23-2024 16:05-0500 Body height 170.2 cm Pranav Tate PA-C Work Phone: [facility] 01-23-2024 16:05-0500 Body mass index (BMI) [Ratio] 30.54 kg/m2 Pranav Tate PA-C Work Phone: [facility] 01-23-2024 16:05-0500 Body temperature 97.3 [degF] Pranav Tate PA-C Work Phone: [facility] 01-23-2024 16:05-0500 Body weight 88.45 kg Pranav Tate PA-C Work Phone: [facility] 01-23-2024 16:05-0500 Diastolic blood pressure 60 mm[Hg] Pranav Tate PA-C Work Phone: [facility] 01-23-2024 16:05-0500 Heart rate 89 /min Pranav Tate PA-C Work Phone: [facility] 01-23-2024 16:05-0500 Respiratory rate 20 /min Pranav Tate PA-C Work Phone: [facility] 01-23-2024 16:05-0500 SaO2% (BldA) [Mass fraction] 96 % Pranav Tate PA-C Work Phone: [facility] 01-23-2024 16:05-0500 Systolic blood pressure 112 mm[Hg] Pranav Tate PA-C Work Phone: [facility] 12-12-2023 09:47-0400 Body mass index (BMI) [Ratio] 31.09 kg/m2 Crissy Mai Work Phone: [facility] 12-12-2023 09:47-0400 Body temperature 98.49 [degF] Crissy Mai Work Phone: [facility] 12-12-2023 09:47-0400 Body weight 90.04 kg Crissy Mai Work Phone: [facility] 12-12-2023 09:47-0400 Diastolic blood pressure 62 mm[Hg] Crissy Mai Work Phone: [facility] 12-12-2023 09:47-0400 Heart rate 79 /min Crissyjuan Mai Work Phone: [facility] 12-12-2023 09:47-0400 SaO2% (BldA) [Mass fraction] 97 % Crissy Mai Work Phone: [facility] 12-12-2023 09:47-0400 Systolic blood pressure 103 mm[Hg] Crissy Romanight Work Phone: [facility] 09-19-2023 10:13-0400 Body mass index (BMI) [Ratio] 31.48 kg/m2 Everett Aldrich MD Work Phone: [facility] 09-19-2023 10:13-0400 Body temperature 97.9 [degF] Everett Aldrich MD Work Phone: [facility] 09-19-2023 10:13-0400 Body weight 91.17 kg Everett Aldrich MD Work Phone: [facility] 09-19-2023 10:13-0400 Diastolic blood pressure 70 mm[Hg] Everett Aldrich MD Work Phone: [facility] 09-19-2023 10:13-0400 Heart rate 73 /min Everett Aldrich MD Work Phone: [facility] 09-19-2023 10:13-0400 SaO2% (BldA) [Mass fraction] 98 % Everett Aldrich MD Work Phone: [facility] 09-19-2023 10:13-0400 Systolic blood pressure 105 mm[Hg] Everett Aldrich MD Work Phone: [facility] 06-27-2023 10:56-0400 Body temperature 98.2 [degF] Everett Aldrich MD Work Phone: [facility] 06-27-2023 10:56-0400 Body weight 91.85 kg Everett Aldrich MD Work Phone: [facility] 06-27-2023 10:56-0400 Diastolic blood pressure 74 mm[Hg] Everett Aldrich MD Work Phone: [facility] 06-27-2023 10:56-0400 Heart rate 82 /min Everett Aldrich MD Work Phone: [facility] 06-27-2023 10:56-0400 SaO2% (BldA) [Mass fraction] 99 % Everett Aldrich MD Work Phone: [facility] 06-27-2023 10:56-0400 Systolic blood pressure 112 mm[Hg] Everett Aldrich MD Work Phone: [facility] 05-23-2023 10:26-0500 Diastolic blood pressure 82 mm[Hg] Dr. Otto Subramanian Work Phone: [facility] 05-23-2023 10:26-0500 Systolic blood pressure 120 mm[Hg] Dr. Otto Subramanian Work Phone: [facility] 05-23-2023 10:02-0500 Body height 172.[address] Otto Subramanian Work Phone: [facility] 05-23-2023 10:02-0500 Body mass index (BMI) [Ratio] 31 kg/m2 Dr. Otto Subramanian Work Phone: [facility] 05-23-2023 10:02-0500 Body weight 92.[address] Otto Subramanian Work Phone: [facility] 05-23-2023 10:02-0500 Heart rate 93 /min Dr. Otto Subramanian Work Phone: [facility] 05-23-2023 10:02-0500 Respiratory rate 18 /min Dr. Otto Subramanian Work Phone: [facility] 05-23-2023 10:02-0500 SaO2% (BldA) [Mass fraction] 96 % Dr. Otto Subramanian Work Phone: [facility] 03-03-2023 09:10-0500 Body temperature 97.39 [degF] [facility] Work Phone: [facility] 03-03-2023 09:10-0500 Diastolic blood pressure 75 mm[Hg] [facility] Work Phone: [facility] 03-03-2023 09:10-0500 Heart rate 82 /min [facility] Work Phone: [facility] 03-03-2023 09:10-0500 SaO2% (BldA) [Mass fraction] 94 % [facility] Work Phone: [facility] 03-03-2023 09:10-0500 Systolic blood pressure 154 mm[Hg] [facility] Work Phone: [facility] 11-09-2022 14:14-0400 Body temperature 97.7 [degF] [facility] Work Phone: [facility] 11-09-2022 14:14-0400 Body weight 95.48 kg [facility] Work Phone: [facility] 11-09-2022 14:14-0400 Diastolic blood pressure 81 mm[Hg] [facility] Work Phone: [facility] 11-09-2022 14:14-0400 Heart rate 79 /min [facility] Work Phone: [facility] 11-09-2022 14:14-0400 SaO2% (BldA) [Mass fraction] 96 % [facility] Work Phone: [facility] 11-09-2022 14:14-0400 Systolic blood pressure 150 mm[Hg] [facility] Work Phone: [facility] 10-20-2022 09:18-0400 Body height 170.2 cm Everett Aldrich MD Work Phone: [facility] 10-20-2022 09:18-0400 Body temperature 98.2 [degF] Everett Aldrich MD Work Phone: [facility] 10-20-2022 09:18-0400 Body weight 95.03 kg Everett Aldrich MD Work Phone: [facility] 10-20-2022 09:18-0400 Diastolic blood pressure 82 mm[Hg] Everett Aldrich MD Work Phone: [facility] 10-20-2022 09:18-0400 Heart rate 74 /min Everett Aldrich MD Work Phone: [facility] 10-20-2022 09:18-0400 Respiratory rate 14 /min Everett Aldrich MD Work Phone: [facility] 10-20-2022 09:18-0400 SaO2% (BldA) [Mass fraction] 96 % Everett Aldrich MD Work Phone: [facility] 10-20-2022 09:18-0400 Systolic blood pressure 128 mm[Hg] Everett Aldrich MD Work Phone: [facility] 10-17-2022 11:52-0400 Body height 172.72 cm [facility] 10-17-2022 11:52-0400 Body temperature 97.1 [degF] [facility] 10-17-2022 11:52-0400 Diastolic blood pressure 121 mm[Hg] [facility] 10-17-2022 11:52-0400 Heart rate 89 /min [facility] 10-17-2022 11:52-0400 Respiratory rate 16 /min [facility] 10-17-2022 11:52-0400 SaO2% (BldA) [Mass fraction] 95 % [facility] 10-17-2022 11:52-0400 Systolic blood pressure 189 mm[Hg] [facility] 10-15-2022 15:23-0400 Diastolic blood pressure 87 mm[Hg] [facility] 10-15-2022 15:23-0400 Systolic blood pressure 180 mm[Hg] [facility] 10-15-2022 11:48-0400 Heart rate 74 /min [facility] 10-15-2022 11:48-0400 Respiratory rate 16 /min [facility] 10-15-2022 11:48-0400 SaO2% (BldA) [Mass fraction] 95 % [facility] 10-15-2022 10:18-0400 Body height 172.72 cm [facility] 10-15-2022 10:18-0400 Body mass index (BMI) [Ratio] 31.1 kg/m2 [facility] 10-15-2022 10:18-0400 Body temperature 97.8 [degF] [facility] 10-15-2022 10:18-0400 Body weight 92.94 kg [facility] 10-12-2022 14:35-0400 Body temperature 97.5 [degF] [facility] Work Phone: [facility] 10-12-2022 14:35-0400 Diastolic blood pressure 79 mm[Hg] [facility] Work Phone: [facility] 10-12-2022 14:35-0400 Heart rate 92 /min [facility] Work Phone: [facility] 10-12-2022 14:35-0400 Respiratory rate 16 /min [facility] Work Phone: [facility] 10-12-2022 14:35-0400 SaO2% (BldA) [Mass fraction] 93 % [facility] Work Phone: [facility] 10-12-2022 14:35-0400 Systolic blood pressure 135 mm[Hg] [facility] Work Phone: [facility] 09-14-2022 13:42-0400 Body temperature 97.5 [degF] [facility] Work Phone: [facility] 09-14-2022 13:42-0400 Diastolic blood pressure 64 mm[Hg] [facility] Work Phone: [facility] 09-14-2022 13:42-0400 Heart rate 75 /min [facility] Work Phone: [facility] 09-14-2022 13:42-0400 Systolic blood pressure 131 mm[Hg] [facility] Work Phone: [facility] 08-18-2022 13:30-0400 Body temperature 97.9 [degF] [facility] Work Phone: [facility] 08-18-2022 13:30-0400 Body weight 97.3 kg [facility] Work Phone: [facility] 08-18-2022 13:30-0400 Diastolic blood pressure 84 mm[Hg] [facility] Work Phone: [facility] 08-18-2022 13:30-0400 Heart rate 84 /min [facility] Work Phone: [facility] 08-18-2022 13:30-0400 SaO2% (BldA) [Mass fraction] 97 % [facility] Work Phone: [facility] 08-18-2022 13:30-0400 Systolic blood pressure 159 mm[Hg] [facility] Work Phone: [facility] 07-28-2022 08:55-0400 Body temperature 97.3 [degF] Bree Cornejo MARKETING CONSULTANT.DATA SUPPORT ANALYST Work Phone: [facility] 07-28-2022 08:55-0400 Body weight 96.16 kg Bree Cornejo MARKETING CONSULTANT.DATA SUPPORT ANALYST Work Phone: [facility] 07-28-2022 08:55-0400 Diastolic blood pressure 66 mm[Hg] Bree Cornejo MARKETING CONSULTANT.DATA SUPPORT ANALYST Work Phone: [facility] 07-28-2022 08:55-0400 Heart rate 71 /min Bree Cornejo MARKETING CONSULTANT.DATA SUPPORT ANALYST Work Phone: [facility] 07-28-2022 08:55-0400 SaO2% (BldA) [Mass fraction] 97 % Bree Cornejo MARKETING CONSULTANT.DATA SUPPORT ANALYST Work Phone: [facility] 07-28-2022 08:55-0400 Systolic blood pressure 119 mm[Hg] [place] Cornejo MARKETING CONSULTANT.DATA SUPPORT ANALYST Work Phone: [facility] 07-18-2022 10:50-0400 Body temperature 97.81 [degF] Treatment Wstr Work Phone: [facility] 07-18-2022 10:50-0400 Diastolic blood pressure 76 mm[Hg] Treatment Wstr Work Phone: [facility] 07-18-2022 10:50-0400 Heart rate 76 /min Treatment Wstr Work Phone: [facility] 07-18-2022 10:50-0400 Respiratory rate 16 /min Treatment Wstr Work Phone: [facility] 07-18-2022 10:50-0400 SaO2% (BldA) [Mass fraction] 94 % Treatment Wstr Work Phone: [facility] 07-18-2022 10:50-0400 Systolic blood pressure 118 mm[Hg] Treatment Wstr Work Phone: [facility] 07-11-2022 14:28-0400 Body temperature 98.1 [degF] Denilson Masci DO Work Phone: [facility] 07-11-2022 14:28-0400 Body weight 96.16 kg Denilson Masci DO Work Phone: [facility] 07-11-2022 14:28-0400 Diastolic blood pressure 74 mm[Hg] Denilson Masci DO Work Phone: [facility] 07-11-2022 14:28-0400 Heart rate 84 /min Denilson Masci DO Work Phone: [facility] 07-11-2022 14:28-0400 SaO2% (BldA) [Mass fraction] 97 % Denilson Masci DO Work Phone: [facility] 07-11-2022 14:28-0400 Systolic blood pressure 110 mm[Hg] Denilson Masci DO Work Phone: [facility] 06-22-2022 04:09-0400 Diastolic blood pressure 89 mm[Hg] [facility] 06-22-2022 04:09-0400 Heart rate 85 /min [facility] 06-22-2022 04:09-0400 Respiratory rate 20 /min [facility] 06-22-2022 04:09-0400 SaO2% (BldA) [Mass fraction] 96 % [facility] 06-22-2022 04:09-0400 Systolic blood pressure 150 mm[Hg] [facility] 06-21-2022 23:46-0400 Body mass index (BMI) [Ratio] 30.5 kg/m2 [facility] 06-21-2022 23:46-0400 Body weight 91.2 kg [facility] 06-21-2022 23:30-0400 Body height 172.72 cm [facility] 06-21-2022 23:30-0400 Body temperature 97 [degF] [facility] 05-23-2022 13:32-0500 Body temperature 97.81 [degF] Treatment Wstr Work Phone: [facility] 05-23-2022 13:32-0500 Body weight 96.16 kg Treatment Wstr Work Phone: [facility] 05-23-2022 13:32-0500 Diastolic blood pressure 88 mm[Hg] Treatment Wstr Work Phone: [facility] 05-23-2022 13:32-0500 Heart rate 70 /min Treatment Wstr Work Phone: [facility] 05-23-2022 13:32-0500 Respiratory rate 16 /min Treatment Wstr Work Phone: [facility] 05-23-2022 13:32-0500 SaO2% (BldA) [Mass fraction] 96 % Treatment Wstr Work Phone: [facility] 05-23-2022 13:32-0500 Systolic blood pressure 152 mm[Hg] Treatment Wstr Work Phone: [facility] 05-05-2022 11:05-0500 Body temperature 97.59 [degF] Injection Wstr Work Phone: [facility] 05-05-2022 11:05-0500 Body weight 96.16 kg Injection Wstr Work Phone: [facility] 05-05-2022 11:05-0500 Diastolic blood pressure 85 mm[Hg] Injection Wstr Work Phone: [facility] 05-05-2022 11:05-0500 Heart rate 78 /min Injection Wstr Work Phone: [facility] 05-05-2022 11:05-0500 Systolic blood pressure 136 mm[Hg] Injection Wstr Work Phone: [facility] 02-01-2022 16:48-0500 Body height 170.2 cm Pranav Tate PA-C Work Phone: [facility] 02-01-2022 16:48-0500 Body temperature 97.11 [degF] Pranav Tate PA-C Work Phone: [facility] 02-01-2022 16:48-0500 Body weight 92.99 kg Rpanav Tate PA-C Work Phone: [facility] 02-01-2022 16:48-0500 Diastolic blood pressure 70 mm[Hg] Pranav Tate PA-C Work Phone: [facility] 02-01-2022 16:48-0500 Heart rate 88 /min Pranav Tate PA-C Work Phone: [facility] 02-01-2022 16:48-0500 Respiratory rate 14 /min Pranav Tate PA-C Work Phone: [facility] 02-01-2022 16:48-0500 SaO2% (BldA) [Mass fraction] 97 % Pranav Tate PA-C Work Phone: [facility] 02-01-2022 16:48-0500 Systolic blood pressure 104 mm[Hg] Pranav Tate PA-C Work Phone: [facility] 10-25-2021 13:59-0400 Body temperature 97.7 [degF] Treatment Wstr Work Phone: [facility] 10-25-2021 13:59-0400 Diastolic blood pressure 69 mm[Hg] Treatment Wstr Work Phone: [facility] 10-25-2021 13:59-0400 Heart rate 72 /min Treatment Wstr Work Phone: [facility] 10-25-2021 13:59-0400 Systolic blood pressure 144 mm[Hg] Treatment Wstr Work Phone: [facility] 10-08-2021 09:09-0400 Body height 167 cm Aparna Becerra MD Work Phone: [facility] 10-08-2021 09:09-0400 Body temperature 97.39 [degF] Aparna Becerra MD Work Phone: [facility] 10-08-2021 09:09-0400 Body weight 89.81 kg Aparna Becerra MD Work Phone: [facility] 10-08-2021 09:09-0400 Diastolic blood pressure 63 mm[Hg] Aparna Becerra MD Work Phone: [facility] 10-08-2021 09:09-0400 Heart rate 71 /min Aparna Becerra MD Work Phone: [facility] 10-08-2021 09:09-0400 SaO2% (BldA) [Mass fraction] 98 % Aparna Becerra MD Work Phone: [facility] 10-08-2021 09:09-0400 Systolic blood pressure 101 mm[Hg] Aparna Becerra MD Work Phone: [facility] 09-24-2021 14:19-0400 Body height 172.7 cm Pranav Tate PA-C Work Phone: [facility] 09-24-2021 14:19-0400 Body temperature 97.5 [degF] Pranav Tate PA-C Work Phone: [facility] 09-24-2021 14:19-0400 Body weight 89.81 kg Pranav Tate PA-C Work Phone: [facility] 09-24-2021 14:19-0400 Diastolic blood pressure 86 mm[Hg] Pranav Tate PA-C Work Phone: [facility] 09-24-2021 14:19-0400 Heart rate 110 /min Pranav Tate PA-C Work Phone: [facility] 09-24-2021 14:19-0400 Respiratory rate 14 /min Pranav Tate PA-C Work Phone: [facility] 09-24-2021 14:19-0400 SaO2% (BldA) [Mass fraction] 96 % Pranav Tate PA-C Work Phone: [facility] 09-24-2021 14:19-0400 Systolic blood pressure 132 mm[Hg] Pranav Tate PA-C Work Phone: [facility] 08-31-2021 06:09-0400 Heart rate 92 /min Dr. Otto Subramanian Work Phone: [facility] Work Phone: 08-31-2021 06:09-0400 Respiratory rate 18 /min Dr. Otto Subramanian Work Phone: [facility] Work Phone: 08-31-2021 06:09-0400 SaO2% (BldA) [Mass fraction] 99 % Dr. Otto Subramanian Work Phone: [facility] Work Phone: 08-31-2021 04:10-0400 Body height 172.[address] Otto Subramanian Work Phone: [facility] Work Phone: 08-31-2021 04:10-0400 Body mass index (BMI) [Ratio] 30.9 kg/m2 Dr. Otto Subramanian Work Phone: [facility] Work Phone: 08-31-2021 04:10-0400 Body temperature 98.1 [degF] Dr. Otto Subarmanian Work Phone: [facility] Work Phone: 08-31-2021 04:10-0400 Body weight 92.[address] Otto Subramanian Work Phone: [facility] Work Phone: 08-31-2021 04:10-0400 Diastolic blood pressure 105 mm[Hg] Dr. Otto Subramanian Work Phone: [facility] Work Phone: 08-31-2021 04:10-0400 Systolic blood pressure 165 mm[Hg] Dr. Otto Subramanian Work Phone: [facility] Work Phone: 08-16-2021 11:37-0400 Respiratory rate 16 /min Dr. Otto Subramanian Work Phone: [facility] Work Phone: 08-16-2021 09:34-0400 Body height 172.[address] Otto Subramanian Work Phone: [facility] Work Phone: 08-16-2021 09:34-0400 Body mass index (BMI) [Ratio] 30.1 kg/m2 Dr. Otto Subramanian Work Phone: [facility] Work Phone: 08-16-2021 09:34-0400 Body temperature 98 [degF] Dr. Otto Subramanian Work Phone: [facility] Work Phone: 08-16-2021 09:34-0400 Body weight 89.[address] Otto Subramanian Work Phone: [facility] Work Phone: 08-16-2021 09:34-0400 Diastolic blood pressure 70 mm[Hg] Dr. Otto Subramanian Work Phone: [facility] Work Phone: 08-16-2021 09:34-0400 Heart rate 90 /min Dr. Otto Subramanian Work Phone: [facility] Work Phone: 08-16-2021 09:34-0400 SaO2% (BldA) [Mass fraction] 94 % Dr. Otto Subramanian Work Phone: [facility] Work Phone: 08-16-2021 09:34-0400 Systolic blood pressure 116 mm[Hg] Dr. Otto Subramanian Work Phone: [facility] Work Phone: 07-21-2021 14:44-0400 Body mass index (BMI) [Ratio] 31.9 kg/m2 Dr. Otto Subramanian Work Phone: [facility] Work Phone: 07-21-2021 14:44-0400 Body weight 92.[address] Otto Subramanian Work Phone: [facility] Work Phone: 07-21-2021 14:44-0400 Diastolic blood pressure 66 mm[Hg] Dr. Otto Subramanian Work Phone: [facility] Work Phone: 07-21-2021 14:44-0400 Heart rate 72 /min Dr. Otto Subramanian Work Phone: [facility] Work Phone: 07-21-2021 14:44-0400 Respiratory rate 18 /min Dr. Otto Subramanian Work Phone: [facility] Work Phone: 07-21-2021 14:44-0400 Systolic blood pressure 123 mm[Hg] Dr. Otto Subramanian Work Phone: [facility] Work Phone: 07-21-2021 14:44-0400 Body mass index (BMI) [Ratio] 31.9 kg/m2 Dr. Otto Subramanian Work Phone: [facility] Work Phone: 07-21-2021 14:44-0400 Body weight 92.[address] Otto Subramanian Work Phone: [facility] Work Phone: 07-21-2021 14:44-0400 Diastolic blood pressure 66 mm[Hg] Dr. Otto Subramanian Work Phone: [facility] Work Phone: 07-21-2021 14:44-0400 Heart rate 72 /min Dr. Otto Subramanian Work Phone: [facility] Work Phone: 07-21-2021 14:44-0400 Respiratory rate 18 /min Dr. Otto Subramanian Work Phone: [facility] Work Phone: 07-21-2021 14:44-0400 Systolic blood pressure 123 mm[Hg] Dr. Otto Subramanian Work Phone: [facility] Work Phone: Encounters Encounter Date Encounter Type Care Provider Facility Start: 09-29-2024 End: 09-29-2024 Patient encounter procedure Damaris Lee PA [facility] Work Phone: Start: 09-29-2024 End: 09-29-[address] Otto Subramanian MD Work Phone: -[facility] Start: 09-26-2024 End: 09-26-[address] Otto Subramanian MD Work Phone: -[facility] Start: 09-26-2024 End: 09-26-2024 Patient encounter procedure Riri Peralta NP-Paula -[facility] Work Phone: Start: 09-24-2024 Encounter for preprocedural cardiovascular examination [facility] Start: 09-16-2024 End: 09-16-[address] Otto Subramanian MD Work Phone: -Cardiovascular Services Start: 09-16-2024 End: 09-16-2024 Patient encounter procedure Damaris Lee PA -Cardiovascular Services Work Phone: Start: 09-16-2024 ambulatory [facility] Start: 09-16-2024 Non-patient / Non-visit Dr. Chel MOLINA [facility] Start: 09-16-2024 End: 09-16-2024 ambulatory Otto Subramanian Facility:[facility] Start: 09-12-2024 ambulatory Otto Subramanian [facility] Start: 09-12-2024 Non-patient / Non-visit Dr. Chel MOLINA [facility] Start: 09-12-2024 End: 09-12-[address] Otto Subramanian MD Work Phone: -Cardiovascular Services Start: 09-12-2024 End: 09-12-2024 Patient encounter procedure Damaris SALAZAR -Cardiovascular Services Work Phone: Start: 09-12-2024 End: 09-12-2024 ambulatory Otto Subramanian Facility:[facility] Start: 08-20-2024 End: 08-20-2024 ambulatory OTTO SUBRAMANIAN Facility:[facility] Comment on above: Malignant neoplasm o f prostate (HCC) (Primary Dx); Malignant neoplasm 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) Start: 08-20-2024 End: 08-20-2024 Patient encounter procedure Crissy Mai Work Phone: Hematology/Oncology Start: 08-20-2024 End: 08-20-2024 ambulatory OTTO SUBRAMANIAN Facility:[facility] Comment on above: Malignant neoplasm o f prostate (HCC) (Primary Dx); Loss of balance Start: 07-26-[address] Mai Subramanian MD Work Phone: [facility] Start: 06-27-2024 End: 06-27-2024 Patient encounter procedure Damaris SALAZAR -[facility] Work Phone: Start: 06-27-2024 End: 06-27-[address] Otto Subramanian MD Work Phone: [facility] Work Phone: Start: 06-27-2024 End: 06-27-2024 ambulatory Otto Subramanian Facility:[facility] Start: 06-18-2024 End: 06-18-2024 Patient encounter procedure Leisa Robb PA-C Work Phone: Neurology Comment on above: Recurrent falls (Teresa sandee Dx); Neuropathy; Loss of balance; History of stroke; Low back pain, unspecified back pain laterality, unspecified chronicity, unspecified whether sciatica present; Spinal stenosis of lumbar region, unspecified whether neurogenic claudication present; Intracranial carotid stenosis, unspecified laterality Start: 06-18-2024 End: 06-18-2024 ambulatory OTTO Barber SUBRAMANIAN Facility:[facility] Start: 06-04-2024 End: 06-04-2024 Follow-up encounter Kaushal Stockton MD Work Phone: Sleep Start: 06-04-2024 End: 06-04-2024 ambulatory OTTO SUBRAMANIAN Facility:[facility] Start: 06-04-2024 End: 06-04-2024 Subsequent hospital visit by physician [employer] [facility] (I-Stat/1.5t) Work Phone: Radiology Comment on [...] Start: 05-24-2024 End: 05-24-2024 Telephone encounter Kaushal Stockton MD Work Phone: Neurology Comment on above: 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 Otto Subramanian MD Work Phone: [facility] Work Phone: Start: 05-23-2024 End: 05-23-[address] Otto Subramanian MD -Physical Therapy Work Phone: Start: 05-23-[address] Otto Subramanian MD -Physical Therapy Work Phone: Start: 03-05-2024 End: 03-05-2024 Patient encounter procedure Everett Aldrich MD Work Phone: Hematology/Oncology Start: 03-05-2024 End: 03-05-2024 ambulatory Treatment Rm 15 [facility] Work Phone: Hematology/Oncology Comment on above: Malignant neoplasm o f prostate (HCC) (Primary Dx); Malignant neoplasm 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) Loss of balance (Teresa sandee Dx); Osteopenia determined by x-ray; Vitamin D deficiency; Malignant neoplasm 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) Start: 01-24-2024 End: 01-24-2024 Emergency department patient visit Sabas Nayak Facility:[facility] Start: 01-23-2024 End: 01-23-2024 ambulatory PRANAV TATE Facility:[facility] Start: 01-23-2024 End: 01-23-2024 Patient encounter procedure Pranav Tate PA-C Work Phone: Urology Comment on above: OAB (overactive blad jennifer) (Primary Dx); Malignant neoplasm of prostate (HCC) Start: 12-26-2023 End: 12-26-2023 ambulatory Osman Bui Facility:[facility] Start: 12-12-2023 End: 12-12-2023 Patient encounter procedure Crissy Mai Work Phone: Hematology/Oncology Start: 12-12-2023 End: 12-12-2023 ambulatory Crissy Mai Work Phone: Hematology/Oncology Comment on above: Malignant neoplasm o f prostate (HCC) (Primary Dx) Malignant neoplasm o f prostate (HCC) (Primary Dx); Malignant neoplasm 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) Start: 09-19-2023 End: 09-19-2023 Patient encounter procedure Everett Aldrich MD Work Phone: Hematology/Oncology Start: 09-19-2023 End: [...] encounter procedure Everett Aldrich MD Work Phone: [facility] Start: 06-09-2023 Non-patient / Non-visit Dr. Edgar Subramanian Work Phone: [facility] Work Phone: Start: 06-09-2023 Non-patient / Non-visit Dr. Edgar Subramanian Work Phone: [facility] Start: 06-09-2023 End: 06-09-[address] Otto Subramanian Work Phone: [facility] Work Phone: Start: 06-09-2023 End: 06-09-[address] Otto Subramanian Work Phone: [facility]-Cardiovascul ar Services Work Phone: Start: 06-07-2023 Refill Everett coughlin MD Work Phone: Hematology/Oncology Comment on above: medication questions Start: 06-06-2023 Non-patient / Non-visit Dr. Edgar Subramanian Work Phone: [facility] Work Phone: Start: 06-05-2023 Non-patient / Non-visit Dr. Edgar Subramanian Work Phone: [facility] Start: 06-05-2023 End: 06-05-[address] Otto Subramanian Work Phone: [facility] Work Phone: Start: 06-05-2023 End: 06-05-[address] Otto Subramanian Work Phone: [facility]-Cardiovascul ar Services Work Phone: Start: 05-23-2023 End: 05-23-[address] Otto Subramanian Work Phone: [facility] Work Phone: Start: 03-21-2023 End: 03-21-2023 ambulatory [facility] Work Phone: Start: 03-21-2023 End: 03-21-2023 Discharged Recurring [facility]-Physical Therapy Work Phone: Start: 03-03-2023 Telephone encounter Everett mcghee MD Work Phone: Hematology/Oncology Comment on above: Appointment Start: 03-03-2023 End: 03-03-2023 ambulatory Treatment Rm 12 Nakul [facility] Work Phone: Hematology/Oncology Comment on above: 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); Malignant neoplasm of prostate (HCC) Start: 01-30-2023 Refill Everett coguhlin MD Work Phone: Hematology/Oncology Comment on above: Refill Request Start: 01-06-2023 Telephone encounter Everett mcghee MD Work Phone: Hematology/Oncology Comment on above: Appointment Start: 11-09-2022 End: 11-09-2022 ambulatory Treatment Rm 8 [facility] Work Phone: Hematology/Oncology Comment on above: 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); Malignant neoplasm of prostate (HCC) Start: 10-20-2022 Telephone encounter Everett mcghee MD Work Phone: Hematology/Oncology Comment on above: Results Start: 10-20-2022 End: 10-20-2022 ambulatory Injection Nakul [facility] Work Phone: Hematology/Oncology Comment on above: 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); Malignant neoplasm of prostate (HCC) 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) Start: 10-20-2022 End: 10-20-2022 Patient encounter procedure Everett Aldrich MD Work Phone: [facility] Start: 10-17-2022 End: 10-17-2022 Emergency department patient visit [facility]-Emergency Department Work Phone: Start: 10-15-2022 End: 10-15-2022 Emergency department patient visit [facility]-Emergency Department Work Phone: Start: 10-12-2022 End: 10-12-2022 ambulatory Treatment Rm 9 [facility] Work Phone: Hematology/Oncology Comment on above: 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); Malignant neoplasm of prostate (HCC) Start: 09-14-2022 End: 09-14-2022 ambulatory Treatment Rm 3 [facility] Work Phone: Hematology/Oncology Comment on above: 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); Malignant neoplasm of prostate (HCC) Start: 08-18-2022 End: 08-18-2022 ambulatory Treatment Rm 10 [facility] Work Phone: Hematology/Oncology Comment on above: Malignant neoplasm o f prostate (HCC) (Primary Dx); Malignant neoplasm 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) Start: 08-17-2022 Orders Only Denilson James Work Phone: Hematology/Oncology Start: 07-28-2022 End: 07-28-2022 Patient encounter procedure [facility] Start: 07-28-2022 End: 07-28-2022 ambulatory Injection [facility] Work Phone: Hematology/Oncology Comment on above: 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); Malignant neoplasm of prostate (HCC) Start: 07-28-2022 End: 07-28-2022 ambulatory Bree Cornejo MARKETING CONSULTANT.DATA SUPPORT ANALYST Work Phone: Hematology/Oncology Comment on above: Malignant neoplasm o f prostate (HCC) (Primary Dx); Malignant neoplasm 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) Start: 07-28-2022 End: 07-28-2022 Patient encounter procedure Bree Luceroenter MARKETING CONSULTANT.DATA SUPPORT ANALYST Work Phone: [facility] Start: 07-18-2022 Telephone encounter Denilson elliott DO Work Phone: Hematology/Oncology Comment on above: Orders Start: 07-18-2022 End: 07-18-2022 ambulatory Treatment Rm 13 Nakul [facility] Work Phone: Hematology/Oncology Comment on above: [...] encounter procedure Denilson Fernandes DO Work Phone: [facility] Start: 06-29-2022 Telephone encounter Irene vitale RN Work Phone: Hematology/Oncology Comment on above: Care Coordination (p atient update-weakness) Start: 06-24-2022 Telephone encounter Denilson elliott DO Work Phone: Hematology/Oncology Comment on above: Patient Update (Weak ness) Start: 06-21-2022 End: 06-22-2022 Emergency department patient visit [facility]-Emergency Department Start: 06-21-2022 Telephone encounter Irene vitale RN Work Phone: Hematology/Oncology Comment on above: Patient Update (Symp toms) Start: 06-13-2022 [facility] Comment on above: [facility] Oral Oncology/he matology - Medication Refill (Erleada) Start: 05-23-2022 End: 05-23-2022 ambulatory Treatment Rm 5 Nakul [facility] Work Phone: Hematology/Oncology Comment on above: Bone metastases (HCC ) (Primary Dx); Malignant neoplasm of prostate (HCC) Start: 05-05-2022 End: 05-05-2022 ambulatory Injection Nakul [facility] Work Phone: Hematology/Oncology Comment on above: Bone metastases (HCC ) (Primary Dx); Malignant neoplasm of prostate (HCC) Start: 04-28-2022 [facility] Comment on above: [facility] Oral Oncology/he matology - Medication Refill (Erleada 60mg) Start: 04-26-2022 Telephone encounter Bree mishra APRN.DATA SUPPORT ANALYST Work Phone: Hematology/Oncology Comment on above: Results Start: 04-25-2022 End: 04-25-2022 ambulatory Treatment Rm 2 [facility] [facility] Work Phone: Hematology/Oncology Comment on above: Bone metastases (HCC ) (Primary Dx); Malignant neoplasm of prostate (HCC) Start: 04-22-2022 Orders Only Bree camarillo APRN.CNP Work Phone: Hematology/Oncology Start: 04-06-2022 [facility]ty [facility] [facility] Comment on above: SPP Oral Oncology/he matology - Medication Refill (Erleada 6-mg) Start: 03-08-2022 [address] [facility] Comment on above: S[facility] Oral Oncology/he matology - Medication Refill (Erleada 60mg) Start: 03-07-2022 Refill Denilson James Work Phone: Hematology/Oncology Comment on above: Refill Request Start: 03-03-2022 End: 03-03-2022 ambulatory [facility] Work Phone: Start: 03-03-2022 End: 03-03-2022 Discharged Recurring [facility]Physical Therapy Start: 02-04-2022 Specialty Pharmacy Robert Jensen [facility] Comment on above: [...] Question Start: 01-10-2022 [facility] Comment on above: SPP Oral Oncology/he matology - Medication Refill (Erleada) Start: 01-07-2022 Telephone encounter Aparna Becerra MD Work Phone: Hematology/Oncology Comment on above: Release Of Medical R ecords Start: 12-07-2021 Specialty Pharmacy Robert Jensen [facility] Comment on above: SPP Oral Oncology/he matology - Medication Refill (Erleada) Start: 12-06-2021 Refill Aparna Becerra MD Work Phone: Hematology/Oncology Comment on above: Refill Request Start: 11-03-2021 Specialty Pharmacy Kristen Lara [facility] Comment on above: SPP Oral Oncology/he matology - Medication Refill (Erleada 60mg) Start: 11-01-2021 Telephone encounter Aparna Becerra MD Work Phone: Hematology/Oncology Comment on above: Patient Question Start: 10-25-2021 End: 10-25-2021 ambulatory Treatment Rm 8 [facility] Work Phone: Hematology/Oncology Comment on above: [...] Medication Problem Start: 10-08-2021 End: 10-08-[address] [facility] Comment on above: Malignant neoplasm o f prostate (HCC) (Primary Dx); Bone metastases (HCC); Osteopenia determined by x-ray Start: 10-08-2021 End: 10-08-2021 [facility] Comment on above: SPP Oral Oncology/he matology - Treatment Referral (Jacquelyn); Insurance Authorization (Pending PA) Start: 09-27-2021 Telephone encounter Pranav shrestha PA-C Work Phone: Urology Comment on above: results of body scan Start: 09-24-2021 End: 09-24-[address] Otto Subramanian Work Phone: [facility], [facility] Comment on above: Prostate cancer (HCC ) (Primary Dx); Elevated PSA Start: 09-22-2021 Telephone encounter Pranav shrestha PA-C Work Phone: Urology Comment on above: Request Outside [facility] Records Start: 09-17-2021 End: 09-17-[address] Otto Subramanian Work Phone: [facility] Start: 08-31-2021 End: 08-31-2021 Emergency department patient visit [facility] Start: 08-24-2021 End: 08-24-[address] Otto Subramanian Work Phone: [facility] Start: 08-16-2021 End: 08-16-2021 Emergency department patient visit Dr. Otto Subramanian [facility] Start: 07-21-2021 End: 07-21-[address] Otto Subramanian Work Phone: [facility] Procedures Date Procedure Procedure Detail Performing Clinician Start: 09-12-2024 Cardiovascular stres s test using pharmacologic stress agent Dr. Otto Subramanian MD Work Phone: Start: 06-04-2024 Mri spinal canal lum bar w/o & w/contr matrl Kaushal Stockton MD Work Phone: Start: 01-23-2024 Urnls dip stick/tabl et rgnt auto w/o microscopy Pranav Tate PA-C Work Phone: Start: 10-15-2022 Computed tomography [...] DTaP,Tdap,Td Vaccine (2 - Td or Tdap) [facility] Start: 08-21-2027 Diabetes Screening Diabetes Screenin g [facility] Start: 05-29-2027 Diabetes Screening Diabetes Screenva g [facility] Start: 03-05-2027 Diabetes Screening Diabetes Screenva g [facility] Start: 12-11-2026 [facility] Start: 09-18-2026 [facility] Start: 06-26-2026 Diabetes Screening Diabetes Screenva chantale [facility] Start: 04-03-2026 Diabetes Screening Diabetes Screenva g [facility] Start: 03-03-2026 Diabetes Screening Diabetes Screenva g [facility] Start: 01-12-2026 Diabetes Screening Diabetes Screenva g [facility] Start: 01-05-2026 Diabetes Screening Diabetes Screenva chantale [facility] Start: 11-09-2025 DIABETES SCREEN DIABETES SCREEN [facility] Start: 10-20-2025 DIABETES SCREEN DIABETES SCREEN [facility] Start: 10-12-2025 DIABETES SCREEN DIABETES SCREEN [facility] Start: 09-14-2025 DIABETES SCREEN DIABETES SCREEN [facility] Start: 08-18-2025 DIABETES SCREEN DIABETES SCREEN [facility] Start: 07-18-2025 DIABETES SCREEN DIABETES SCREEN [facility] Start: 06-20-2025 DIABETES SCREEN DIABETES SCREEN [facility] Start: 05-23-2025 DIABETES SCREEN DIABETES SCREEN [facility] Start: 04-25-2025 DIABETES SCREEN DIABETES SCREEN [facility] Start: 01-28-2025 End: 01-28-2025 Patient encounter procedure 01/28/2025 9:00 AM EST Office Visit Urology [address] [place] [address] Pranav Tate PA-C [address] [place] [address] 1 YR F/U Urology Comment on above: 1 YR F/U Start: 01-07-2025 DIABETES SCREEN DIABETES SCREEN [facility] Start: 11-12-2024 End: 11-12-2024 ambulatory [facility] Comment on above: (SO)CBC/CMP(S)/PSA* 3MO OV/LAB EARLY/ZOM ETA,LUPRON TODAY* ABRAMOVICH 2nd Start: 10-21-2024 DIABETES SCREEN DIABETES SCREEN [facility] Start: 10-08-2024 DIABETES SCREEN DIABETES SCREEN [facility] Start: 10-07-2024 ambulatory Ambulatory Facility:[facility] Start: 09-26-2024 Evaluation of diagno stic study results [facility] Start: 08-20-2024 End: 08-20-2024 ambulatory 08/20/2024 1:30 PM EDT Infusion Center Hematology/Oncology [address] [place], [place] [id number] 2nd Hematology/Oncology Comment on above: 2nd Start: 08-20-2024 End: 08-20-2024 ambulatory [facility] Comment on above: (SO)CBC/CMP(S)/PSA* 3MO OV/LAB EARLY/ZOM ETA,LUPRON TODAY* 3MO OV/LAB EARLY/ZOM ETA,LUPRON TODAY* abramovich Start: 06-27-2024 Patient referral [facility] Work Phone: Start: 06-18-2024 End: 06-18-2024 Patient encounter procedure 06/18/2024 1:45 PM EDT Office Visit Neurology [address] [place], [place] [id number] Leisa Robb PA-C [address] [place] [address] post MRI Neurology Comment on above: post MRI Start: 06-04-2024 End: 06-04-2024 Patient encounter procedure Radiology Comment on above: Low back pain, unspe cified back pain laterality, unspecified chronicity, unspecified whether sciatica present [M54.50] Start: 05-28-2024 End: 05-28-2024 ambulatory 05/28/2024 1:30 PM EDT Infusion Center Hematology/Oncology [address] [place] [address] 2nd Hematology/Oncology Comment on above: 2nd Start: 05-28-2024 End: 05-28-2024 [facility] Comment on above: (SO)CBC/CMP(S)/PSA* 3MO OV/LAB EARLY/ZOM ETA,LUPRON TODAY* Start: 05-24-2024 End: 05-24-2024 Patient encounter procedure 05/24/2024 10:40 AM EST Office Visit Neurology [address] [place] [address] Kaushal Stockton Jr., MD [address] [place] [address] Loss of balance [R26.89] Neurology Comment on above: Loss of balance [R26 .89] Start: 03-20-2024 Advance Directive Discussion Advance Directive Discussion [facility] Start: 03-05-2024 End: 03-05-2024 [facility] Comment on above: (SO)CBC/CMP(S)/PSA* OV/LAB EARLY/ZOMETA, LUPRON TOAY* 2nd Start: 12-12-2023 End: 12-12-2023 [facility] Comment on above: (SO)CBC/CMP(S)/PSA* OV/LAB EARLY/ZOMETA, LUPRON TOAY* Q3MO ZOMETA(AUTH EXP 03/19/24)Q3MO LUPRON(AUTH EXP 06/21/24)LAB&OV TODAY* Start: 11-19-2023 Covid-19 Vaccine () Covid-19 Vaccine () [facility] Start: 11-19-2023 Influenza vaccination Influenza Vacc ine (#1) [facility] Start: 03-20-2023 Advance Directive Discussion Advance Directive Discussion [facility] Start: 03-20-2023 Behavioral Health Screening Behavioral Health Screening [facility] Start: 03-20-2023 Depression Assessment Depression Ass essment [facility] Start: 11-18-2022 Covid-19 Vaccine () Covid-19 Vaccine () [facility] Start: 11-18-2022 Influenza vaccination INFLUENZA (#1) [facility] Start: 07-18-2022 End: 09-17-2022 CBC W Auto Differential panel - Blood [facility] Work Phone: Comment on above: Expected: 07/18/2022 , Expires: 09/17/2022 Expected: 07/18/2022 (Approximate), Expires: 09/17/2022 Start: 07-18-2022 End: 09-17-2022 Comprehensive metabolic 2000 panel - Serum or Plasma [facility] Work Phone: Comment on above: Expected: 07/18/2022 , Expires: 09/17/2022 Expected: 07/18/2022 (Approximate), Expires: 09/17/2022 Start: 07-18-2022 End: 09-17-2022 Prostate specific Ag [Mass/volume] in Serum or Plasma [facility] Work Phone: Comment on above: Expected: 07/18/2022 , Expires: 09/17/2022 Start: 05-25-2022 End: 07-25-2022 Prostate specific Ag [Mass/volume] in Serum or Plasma PSA/PROSTSPECAG DIAG Lab Routine Prostate cancer (HCC) Expected: 05/25/2022 (Approximate), Expires: 07/25/2022 [facility] Work Phone: Comment on above: Expected: 05/25/2022 (Approximate), Expires: 07/25/2022 Start: 03-20-2022 ADVANCE DIRECTIVE DISCUSSION ADVANCE DIRECTIVE DISCUSSION [facility] Start: 03-20-2022 DEPRESSION ASSESSMENT DEPRESSION ASS ESSMENT [facility] Start: 01-25-2022 End: 03-27-2022 Prostate specific Ag [Mass/volume] in Serum or Plasma PSA/PROSTSPECAG DIAG Lab Routine Prostate cancer (HCC) Expected: 01/25/2022, Expires: 03/27/2022 [facility] Work Phone: Comment on above: Expected: 01/25/2022 , Expires: 03/27/2022 Start: 11-18-2021 Influenza vaccination INFLUENZA (#1) [facility] Start: 05-22-2021 COVID-19 VACCINE (4 - Booster for Moderna series) COVID-19 VACCINE (4 - Booster for Moderna series) [facility] Start: 04-24-2021 COVID-19 VACCINE (4 - Booster for Moderna series) COVID-19 VACCINE (4 - Booster for Moderna series) [facility] Start: 04-16-2021 COVID-19 VACCINE (4 - Booster for Moderna series) COVID-19 VACCINE (4 - Booster for Moderna series) [facility] Start: 03-20-2021 ADVANCE DIRECTIVE DISCUSSION ADVANCE DIRECTIVE DISCUSSION [facility] Start: 03-20-2021 DEPRESSION ASSESSMENT DEPRESSION ASS ESSMENT [facility] Start: 03-19-2021 COVID-19 VACCINE (4 - Booster for Moderna series) COVID-19 VACCINE (4 - Booster for Moderna series) [facility] Start: 03-19-2021 COVID-19 VACCINE (4 - Moderna series) COVID-19 VACCINE (4 - Moderna series) [facility] Start: 10-12-2020 COVID-19 VACCINE (3 - Booster for Moderna series) COVID-19 VACCINE (3 - Booster for Moderna series) [facility] Start: 01-10-2016 Pneumococcal Vaccine : 65+ (2 - PCV) Pneumococcal Vaccine: 65+ (2 - PCV) [facility] Start: 01-10-2016 Pneumococcal Vaccine : 65+ (2 of 2 - PCV) Pneumococcal Vaccine: 65+ (2 of 2 - PCV) [facility] Start: 01-10-2016 PNEUMOCOCCAL: 65+ (2 - PCV) PNEUMOCOCCAL: 65+ (2 - PCV) [facility] Start: 07-12-2013 DIABETES SCREEN DIABETES SCREEN [facility] Start: 08-29-2011 RSV Vaccine (1 - 1-d ose 75+ series) RSV Vaccine (1 - 1-dose 75+ series) [facility] Start: 12-18-2008 PNEUMOCOCCAL: 65+ (2 - PCV) PNEUMOCOCCAL: 65+ (2 - PCV) [facility] Start: 09-09-2000 Urine microalbumin profile [facility] Start: 1996 RSV Vaccine (1 - 1-d ose 60+ series) RSV Vaccine (1 - 1-dose 60+ series) [facility] Start: 1986 SHINGRIX VACCINE (1 of 2) BENAVIDES GRIX VACCINE (1 of 2) [facility] Start: 08-29-1955 SHINGRIX VACCINE (1 of 2) BENAVIDES GRIX VACCINE (1 of 2) [facility] Start: 08-29-1955 Urine microalbumin profile DTAP,TDAP,TD (1 - Tdap) [facility] Start: 1954 Anxiety Screening Anxiety Screening [facility] Start: 1954 Depression Screening Depression Scre ening [facility] Basic metabolic 2008 panel with ionized calcium - Serum or Plasma [facility] Catheterization of l eft heart [facility] CBC W Auto Different ial panel - Blood [facility] End: 06-23-2025 MR Brain WO and W contrast IV MRI BRAIN WO/W IVCON Radiology Routine Other symptoms and signs involving the nervous system 1 Occurrences starting 05/24/2024 until 06/23/2025 [facility] [place] Work Phone: Comment on above: 1 Occurrences starti ng 05/24/2024 until 06/23/2025 End: 06-23-2025 MR Lumbar spine WO and W contrast IV MRI LUMBAR SPINE WO/W IVCON Radiology Routine Low back pain, unspecified back pain laterality, unspecified chronicity, unspecified whether sciatica present 1 Occurrences starting 05/24/2024 until 06/23/2025 [facility] Comment on above: 1 Occurrences starti ng 05/24/2024 until 06/23/2025 End: 06-23-2025 MRA Head vessels WO contrast MRA BRAIN WO IVCON Radiology Routine Other symptoms and signs involving the nervous system 1 Occurrences starting 05/24/2024 until 06/23/2025 [facility] Comment on above: 1 Occurrences starti ng 05/24/2024 until 06/23/2025 End: 06-23-2025 MRA Neck vessels WO contrast MRA CAROTID WO IVCON Radiology Routine Other symptoms and signs involving the nervous system 1 Occurrences starting 05/24/2024 until 06/23/2025 [facility] Comment on above: 1 Occurrences starti ng 05/24/2024 until 06/23/2025 End: 07-21-2023 Mri brain brain stem w/o w/contrast material MRI BRAIN WO/W IVCON Radiology STAT Early onset cerebellar ataxia (HCC) 1 Occurrences starting 06/21/2022 until 07/21/2023 [facility] Work Phone: Comment on above: 1 Occurrences starti ng 06/21/2022 until 07/21/2023 Natriuretic peptide. B prohormone N-Terminal [Mass/volume] in Serum or Plasma [facility] Patient Education [facility] Work Phone: Patient referral [facility] Work Phone: POST VOID RESIDUAL POST VOID RES IDUAL Procedures Routine Elevated PSA Ordered: 09/24/2021 [facility] Work Phone: Comment on above: Ordered: 09/24/2021 End: 10-19-2023 Prostate specific Ag [Mass/volume] in Serum or Plasma PSA/PROSTSPECAG DIAG Lab Routine Malignant neoplasm 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) Every 3 months for 4 Occurrences starting 10/19/2022 until 10/19/2023 [facility] Work Phone: Comment on above: Every 3 months for 4 Occurrences starting 10/19/2022 until 10/19/2023 Prostate specific Ag [Mass/volume] in Serum or Plasma PSA/PROSTSPECAG DIAG Lab Routine Malignant neoplasm 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) 10/20/2022 9:06 AM EDT [facility] Work Phone: Prostate specific an tigen measurement [facility] Work Phone: US Carotid arteries [facility] US Heart [facility] End: 10-19-2023 CAROLIN ISTAT BMP CAROLIN ISTAT BMP Lab STAT Malignant neoplasm 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) Every 3 months for 4 Occurrences starting 10/19/2022 until 10/19/2023 [facility] Work Phone: Comment on above: Every 3 months for 4 Occurrences starting 10/19/2022 until 10/19/2023 End: 10-20-2023 CAROLIN ISTAT BMP CAROLIN ISTAT BMP Lab STAT Malignant neoplasm 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) Every 3 months for 4 Occurrences starting 10/20/2022 until 10/20/2023 [facility] Work Phone: Comment on above: Every 3 months for 4 Occurrences starting 10/20/2022 until 10/20/2023 XR Chest PA and Lateral [facility] Immunizations Immunization Date Immunization Notes Care Provider Fa [facility] 12-16-2022 influenza virus vacc ine, unspecified formulation Everett Aldrich MD Work Phone: [facility] 01-15-2021 influenza, injectabl e, quadrivalent, preservative free Aparna Becerra MD Work Phone: [facility] 05-15-2020 Covid (Moderna) Dr. Otto Taylor Work Phone: [facility] 04-17-2020 Courtneyid (Moderna) Dr. Otto Taylor Work Phone: [facility] 01-13-2020 zoster vaccine recombinant Aparna Becerra MD Work Phone: [facility] 12-17-2019 influenza, high-dose , quadrivalent vaccine (FLUZONE HIGH DOSE QUADRIVALENT) Aparna Becerra MD Work Phone: [facility] 11-04-2019 zoster vaccine recombinant Aparna Becerra MD Work Phone: [facility] 12-20-2018 influenza, high dose seasonal, preservative-free Aparna Becerra MD Work Phone: [facility] 04-04-2018 influenza, high dose seasonal, preservative-free Aparna Becerra MD Work Phone: [facility] 01-19-2017 influenza, injectabl e, quadrivalent, contains preservative Aparna Becerra MD Work Phone: [facility] 01-09-2015 pneumococcal conjuga te vaccine, 7 valent Aparna Becerra MD Work Phone: [facility] 03-10-2010 zoster vaccine, live Aparna Becerra MD Work Phone: [facility] 12-19-2007 pneumococcal polysaccharide vaccine, 23 valent Pranav Tate PA-C Work Phone: [facility] 12-29-2003 pneumococcal polysaccharide vaccine, 23 valent Aparna Becerra MD Work Phone: [facility] 09-08-2000 tetanus and diphther ia toxoids, adsorbed, preservative free, for adult use (2 Lf of tetanus toxoid and 2 Lf of diphtheria toxoid) Aparna Becerra MD Work Phone: [facility] Payers Date Payer Category Payer Self-pay [id number] 2021 Medicare [id number] 2021 Medicare AETNA MEDICARE A ETNA MEDICARE PPO [id number] 2021-Present [phone] [address] [place] [address] PPO [id number] 2021 Medicare (Managed Care) [employer] DICARE [id number] 2020 Medicare AETNA MEDICARE A ETNA MEDICARE PPO [id number] 2020-Present [phone] [address] [place] [address] PPO [id number] 2012 Private Health Insurance [facility] [id number] Unknown [id number] Unknown [id number] Unknown [id number] Unknown [id number] Unknown [id number] Unknown [id number] Unknown [id number] Unknown [id number] Unknown [id number] Unknown [id number] Unknown [id number] Unknown [id number] Social History Date Type Detail Facility Start: 08-16-2021 End: 05-23-2023 Tobacco smoking status NHIS Unknown if ever smoked [facility] Start: 1935 Sex Assigned At Male [facility] Start: 04-27-2017 End: 01-24-2024 Tobacco smoking status NHIS Never smoked tobacco [facility] Start: 03-08-2019 End: 08-20-2024 Alcohol intake Current non-drinker of alcohol (finding) [facility] Start: 09-14-2021 End: 02-01-2022 Exposure to SARS-CoV-2 (event) Not sure [facility] Start: 04-27-2017 End: 01-23-2024 Tobacco use and exposure Smokeless tobacco non-user [facility] Work Phone: Start: 07-11-2022 End: 07-28-2022 History of Social function [facility] Start: 07-11-2022 End: 07-28-2022 Tobacco use panel [facility] National Score (1-10 0), lower number is lower risk 42 [facility] Start: 04-30-2020 Gender identity Identifies as male gender (finding) [facility] Start: 04-30-2020 Sexual orientation Heterosexual (fin ding) [facility] Start: 07-02-2024 Sex Male (finding) [facility] Functional Status Date Assessment Result Facility 05-13-2014 Are you deaf, or do you have serious difficulty hearing No 05/13/2014 1:29 PM Anna Michaud LPN No [facility] 05-13-2014 Are you blind, or do you have serious difficulty seeing, even when wearing glasses No 05/13/2014 1:29 PM Anna Michaud LPN No [facility] 05-13-2014 Do you have serious difficulty walking or climbing stairs No 05/13/2014 1:29 PM Anna Michaud LPN No [facility] 05-13-2014 Do you have difficul ty dressing or bathing No 05/13/2014 1:29 PM Anna Michaud LPN No [facility] 05-13-2014 Because of a physica l, mental, or emotional condition, do you have difficulty doing errands alone such as visiting a physician's office or shopping No 05/13/2014 1:29 PM Anna Michaud LPN No [facility] Mental Status Date Assessment Result Facility 06-21-2022 Cognitive function Level Of Cons ciousness Awake;Appropriate;Drowsy [facility] Work Phone: 08-31-2021 Cognitive function Level Of Cons ciousness Awake;Alert;Appropriate;Fol lows Commands [facility] Work Phone: 08-16-2021 Cognitive function Level Of Cons ciousness Awake;Alert;Appropriate;Fol lows Commands [facility] Work Phone: 05-13-2014 Because of a physica l, mental, or emotional condition, do you have serious difficulty concentrating, remembering, or making decisions No 05/13/2014 1:29 PM Anna Michaud LPN No [facility] Clinical Notes 09-23-2021 to 09-29-2024 Crissy Mai - 08/20/2024 12:59 PM EDT Note Date & Type Note Facility 09-29-2024 Progress note [facility] 08-20-2024 Note HNO ID: [id number] Author: CRISSY MAI, ? Service: ? Author [...] by mouth once daily.Disp: Rfl: GLUCOSAM/MSM/CHONDR/VIT C/HYAL ([id number] ORAL)Take 1 tablet by mouth two times a day.Disp: Rfl: nitroglycerin sublingual (NITROQUICK) 0.4 mg SL tabletDissolve 0.4 mg under the tongue every 5 minutes as needed.Disp: Rfl: Fish Oil-[place]-3 Fatty Acids 500-300 mg ORAL CapTake by [...] mouth once daily.Disp: (more content not included)... [facility] 08-20-2024 History of Present illness Narrative Formatting of this note is different fro m the original. Alex Carpenter 1935 08/20/2024 HISTORY OF PRESENT ILLNESS: Alex Carpenter is a 87 year old male diagnosed with prostate cancer in 1998, 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 He had been [...] by mouth once daily.^Disp: ^Rfl: GLUCOSAM/MSM/CHONDR/VIT C/HYAL ([id number] ORAL)^Take 1 tablet by mouth two times a day.^Disp: ^Rfl: nitroglycerin sublingual (NITROQUICK) 0.4 mg SL tablet^Dissolve 0.4 mg under the tongue every 5 minutes as needed.^Disp: ^Rfl: Fish Oil-[place]ham-3 Fatty Acids 500-300 mg ORAL Cap^Take by [...] note to correlate with current findings. Crissy Mai, MARKETING CONSULTANT.DATA SUPPORT ANALYST I spent a total of 30 minutes on the date of the service which included preparing to see the patient, ffol-ej-[id number] patient care, completing clinical documentation, obtaining and/or [...] of this patient. documented in this encounter [facility] 07-25-2024 Discharge summary Note Date/Time July 25, 2024 3:56pm [facility] [address] [place] [address] / REHABILITATION SERVICES DISCHARGE SUMMARY MR#: [id number] Acct: [id number] Name: ALEX CARPENTER Rep #: [id number] : 1935 88 From: Otto Shirley DPT, OCS, CSCS Referring Dr.: Dr. Otto Subramanian MD Status: REG R Insurance: [facility] SELF PAY INSURANCE Patient Information Patient Information: [...] 8 <Electronically signed by Otto Shirley DPT, DENISE, CSCS> 07/25/24 1556 CC: Dr. Otto Subramanian MD ~ EBG Signed [facility] Work Phone: [phone]) 129-928605-08-2025 Discharge summary [facility] [place] [address] / REHABILITATION SERVICES DISCHARGE SUMMARY MR#: [id number] Acct: [id number] Name: ALEX CARPENTER Rep #: [id number] : 1935 88 From: DENISE De Jesus DPT, JOSE GUADALUPE Referring Dr.: Dr. Otto Subramanian MD Status: REG [facility] Insurance: [facility] SELF PAY INSURANCE Patient Information Patient Information: [...] the physician. Thank you! Otto Shirley DPT, DENISE, CSCS Balance/Gait/Functional tests Balance/Special Test Scores Functional Gait Assessment Score: 12 % Disability: 60.0000 CATSIB Score (Max score 120 seconds): 102 Lower Extremity Functional Score: 20 TUG Test Time Seconds: 13 Tug Test: <20 sec.=mostly independent 30 Second Chair Rise Test Seconds: 8 07/25/24 1556 CC: Dr. Otto Subramanian MD ~ EBG Signed [facility]04-10-2025 Evaluation note* Diagnosis Onset Date Resolution Status Admit Date Carotid artery disease acute Ap ril 2024 10:37am Nonrheumatic aortic (valve) stenosis acute June 27, 2024 10:37am Essential hypertension chronic Ap ril 2024 10:37am Hyperlipidemia chronic June 10:37am SHAMAR (obstructive sleep apnea) chroni c June 27, 2024 10:37am Presence of stent in coronar y artery Jul, 2013 chronic June 27, 2024 10:37am [facility] Work Phone: [phone]) 940-861904-10-2025 Evaluation note* Diagnosis Onset Date Resolution Status Admit Date Carotid artery disease acute Ap ril 2024 10:37am Nonrheumatic aortic (valve) stenosis acute June 27, 2024 10:37am Essential hypertension chronic Ap ril 2024 10:37am Hyperlipidemia chronic June 10:37am SHAMAR (obstructive sleep apnea) chroni c June 27, 2024 10:37am Presence of stent in coronar y artery Jul, 2013 chronic June 27, 2024 10:37am Carotid artery disease acute Ju ly 2024 7:53am Nonrheumatic aortic (valve) stenosis acute September 26, 2024 7:53am Essential hypertension chronic Ju ly 2024 7:53am Hyperlipidemia chronic September 26, 2024 7:53am SHAMAR (obstructive sleep apnea) chroni c September 26, 2024 7:53am Presence of stent in coronar y artery Jul, 2013 chronic September 26, 2024 7:53am [facility] Work Phone: [phone]) 951-393204-10-2025 Evaluation note* Diagnosis Onset Date Resolution Status Admit Date Carotid artery disease acute Ap ril 2024 10:37am Nonrheumatic aortic (valve) stenosis acute June 27, 2024 10:37am Essential hypertension chronic Ap ril 2024 10:37am Hyperlipidemia chronic June 10:37am SHAMAR (obstructive sleep apnea) chroni c June 27, 2024 10:37am Presence of stent in coronar y artery Jul, 2013June 27, 2024 10:37am Carotid artery disease acute Ju ly 10th, 2025 7:53am Nonrheumatic aortic (valve) stenosis acute September 26, 2024 7:53am Essential hypertension chronic 2024 7:53am Hyperlipidemia chronic September 26, 2024 7:53am Presence of stent in coronar y artery Jul, 2013 chronic September 26, 2024 7:53am Left leg cellulitis acute September 29, 2024 9:27am [facility] Work Phone: 1(432) 348-406804-01-2025 Instructions* Patient Instructions* Leisa Robb PA-C - [...] and <40 for men See spine at [place] for lumbar stenosis [phone] Follow up as needed documented in this encounterTri[facility]25 NoteHNO ID: [id number] Author: LEISA ROBB PA-C Service: ? Author Type: Physician Roll Line Operator Type: Progress Notes Filed: 06/18/2024 14:43 Note Text: [facility] Name: Alex Carpenter Age: [...] malignancy or chemo (ne (more content not included)...[facility]04-01-2025 History of Present illness Narrative* Leisa Robb PA-C - 06/18/2024 1:32 PM EDT Images from the original note were not included. [facility] Name: Alex Carpenter Age: [...] mg by mouth once daily. GLUCOSAM/MSM/CHONDR/VIT C/HYAL (YZVMYGYBLYW-EGKGGESNDZA-UKZ ORAL) Take 1 tablet by mouth two times a day. nitroglycerin sublingual 0.3 mg SL tablet Dissolve 0.3 mg under the tongue every 5 minutes as needed. Calcium Carbonate-Vitamin D3 600mg (1,000mg) -1,000 unit ORAL Tab Take 1 tablet by mouth once daily. Fish Oil-Oakham-3 Fatty Acids 500-300 mg ORAL Cap Take [...] 4.00 k/uL Monocytes % 7.2 % Abs Iron 1.09 (H) <0.87 k/uL Eosinophils % 0.4 [...] LEFT ICA origin stenosis. Patent intracranial circulation. Poultry Farm Supervisor: BLESSING Transcribe Date/Time: Jun 04 2024 10:48A [...] and assume there are 5 lumbar-type vertebrae. Poultry Farm Supervisor: BLESSING Transcribe Date/Time: Jun 04 2024 11:13A Dictated by : BRITTANIE MURCIA MD This examination was interpreted and the report reviewed and electronically signed by: BRITTANIE MURCIA MD on Jun 04 2024 11:17AM EST This note was dictated using Nutrinia speech recognition software and may contain some [...] which included preparing to see the patient, kdpf-tl-[id number] patient care, completing clinical documentation, obtaining and/or reviewing separately obtained history, performing a medically appropriate examination, counseling and educating the pat ient/family/caregiver, and ordering medications, tests, or procedures. documented in this encounterTri[facility] Telephone encounter Note * Telephone Encounter - Guzman Sánchez LPN - 06/04/2024 2:44 PM EDT Called and spoke to patient, advised of message below. Patient verbalized understanding. Patient does not want to go [facility] to [facility]. Advised [place] does have sales product specialist. Patient would like consult placed, once consult placed nurse will fax consult over to [place]. Patient in agreement with plan. Please place order. Guzman Sánchez LPN June 04, 2024 2:45 PM [facility]03-18-2025 Miscellaneous Notes* Telephone Encounter - Guzman Sánchez LPN - 06/04/2024 2:44 PM EDT Called and spoke to patient, advised of message below. Patient verbalized understanding. Patient does not want to go outside [facility] to see specialist. Advised [place] does have sales product specialist. Patient would like consult placed, once consult placed nurse will fax consult over to [place]. Patient in agreement with plan. 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 Would like pt to see Spine/NSGY. If he agrees, will placereferral. Thank you, Kaushal Stockton MD [facility]03-18-2025 History of Present illness Narrative* Maty Tran, RT(R) - 06/04/2024 9:00 AM EDT Radiology [...] PATIENT PRESENTS WITH AN IMPLANTABLE OR ATTACHED BLACK JACK DEALER: No ALLERGIES: Reviewed and unchanged CONTRAST ALLERGY: NO. EXAM: MRI - CONTRAST TYPE: GROUP II PERIPHERAL IV DATA: Ambulatory: A peripheral IV was started in the Left antecubital site with a Angio cath: 22 gauge. RADIOLOGY DEPARTMENT: MR; Exam(s) Completed: Head: Routine Brain [place] MRA Neck: Carotids MRA, bilateral Spine: Lumbar spine SIGNATURE: RT Luis(Dipesh) PATIENT NAME: Alex Carpenter DATE: June 04, 2024 TIME: 9:20 AM documented in this encounterTrihealth [facility]03-18-2025 NoteHNO ID: [id number] Author: MATY TRAN RT (R) Service: ? Author Type: Technologist Type: Progress [...] PATIENT PRESENTS WITH AN IMPLANTABLE OR ATTACHED BLACK JACK DEALER: No ALLERGIES: Reviewed and unchanged CONTRAST ALLERGY: NO. EXAM: MRI - CONTRAST TYPE: GROUP II PERIPHERAL IV DATA: Ambulatory: A peripheral IV was started in the Left antecubital site with a Angio cath: 22 gauge. RADIOLOGY DEPARTMENT: MR; Exam(s) Completed: Head: Routine Brain [place] of [place] MRA Neck: Carotids MRA, bilateral Spine: Lumbar spine SIGNATURE: RT Luis(Dipesh) PATIENT NAME: Alex Carpenter DATE: June 04, 2024 TIME: 9:20 [facility]03-11-2025 NoteHNO ID: [id number] Author: ELIJAH MERCHANT RN Service: ? Author Type: Registered Nurse Type: Progress Notes Filed: 05/28/2024 14:05 Note Text: OV prior to tx. Elijah Merchant [facility] History of Present illness Narrative* Elijah Merchant RN - 05/28/2024 1:58 PM EDT OV prior to tx. Elijah Merchant RN documented in this encounterTrihealth [facility]03-[facility]-2025 NoteHNO ID: [id number] Author: EVERETT ALDRICH MD Service: ? Author [...] in 1998, 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 He had been [...] mg by mouth once daily. GLUCOSAM/MSM/CHONDR/VIT C/HYAL (JHZPGJBHGLL-AIKRWLRPXZZ-RDK ORAL) Take 1 tablet by mouth two [...] tablets (180mg) by mouth once daily. Fish Oil-Oakham-3 Fatty Acids 500-300 mg ORAL Cap Take [...] I spent a tot (more content not included)...[facility]03-11-2025 History of Present illness Narrative* Everett [...] in 1998, 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 He had been [...] mg by mouth once daily. GLUCOSAM/MSM/CHONDR/VIT C/HYAL (WQFMVSWCFIF-BZGYSQJJSYJ-PTL ORAL) Take 1 tablet by mouth two [...] tablets (180mg) by mouth once daily. Fish Oil-Oakham-3 Fatty Acids 500-300 mg ORAL Cap Take [...] which included preparing to see the patient, qsve-fp-cnmy patient care, completing clinical documentation, obtaining and/or reviewing separately obtained history, ordering medications, tests, or procedures, independently interpreting results (not separately reported), and communicating results to the patient/family/caregiver. Electronically Signed: Everett Aldrich MD May 28, 2024 documented in this encounterTrihealth [facility]03-[facility] Telephone encounter Note * Telephone Encounter - Guzman Sánchez LPN - 05/24/2024 1:42 PM EST Request sent Guzman Sánchez LPN May 24, 2024 1:42 PM [facility]03-07-2025 Miscellaneous Notes* Telephone Encounter - Guzman Sánchez LPN - 05/24/2024 1:42 PM EST Request sent Guzman Sánchez LPN May 24, 2024 1:42 PM * Telephone Encounter - Renetta Edouard LPN - 05/24/2024 11:55 AM EST Images from the original note were not included. Kaushal Stockton Jr., MD P Wstr [facility] [place] Nurse Please request recent labs including B12, sed rate, TSH, AZ, A1c, CMP from PCP office. Thank you. documented in this encounterTrihealth [facility]03-07-2025 Telephone encounter Note * Telephone Encounter - Renetta Edouard LPN - 05/24/2024 11:55 AM EST Images from the original note were not included. Kaushal Stockton Jr., MD P Darrius Stockton Nurse Please request recent labs including B12, sed rate, TSH, AZ, A1c, CMP from PCP office. Thank you. [facility]03-07-2025 NoteHNO ID: [id number] Author: KAUSHAL STOCKTON JR, MD Service: ? [...] imaging. CT brain completed on 06/22/22 at [facility] reportedly showed no acute changes but chronic [...] 07/11/2022) hydroCHLOROthiazide (HYDRODIURIL, AKHIL (more content not included)...[facility]03-07-2025 History of Present illness Narrative* Kaushal [...] imaging. CT brain completed on 06/22/22 at [facility] reportedly showed no acute changes but chronic [...] mg by mouth once daily. GLUCOSAM/MSM/CHONDR/VIT C/HYAL (CNYACVMDRMX-RVAUIOBEODX-TVM ORAL) Take 1 tablet by mouth two times a day. nitroglycerin sublingual 0.3 mg SL tablet Dissolve 0.3 mg under the tongue every 5 minutes as needed. Calcium Carbonate-Vitamin D3 600mg (1,000mg) -1,000 unit ORAL Tab Take 1 tablet by mouth once daily. Fish Oil-Oakham-3 Fatty Acids 500-300 mg ORAL Cap Take [...] 05/24/2024 10:47 AM EST documented in this encounterTrihealth [facility]03-07-2025 NoteHNO ID: [id number] Author: GUZMAN SÁNCHEZ LPN Service: ? Author Type: LICENSED NURSE Type: Progress Notes Filed: 05/24/2024 11:43 Note Text:[facility]03-06-2025 Chief complaint+Reason for visit Narrative* Chief [...] stent in coronary artery Apr 2024 10:37am [facility] Work Phone: 1(861) 399-323603-06-2025 Chief complaint+Reason for visit Narrative * Chief Complaint Admit Date BALANCE EVALUATION. RX HERE May 23 025 10:30am 6 M FU June 27, 2024 10: 37am INT LAB ORDERS June 27, 2024 11: 18am PRE OP September 12, 2024 6:49 am PRE OP September 12, 2024 3:20 pm PRE OP September 16, 2024 1:57 pm Reason for Visit Admit Date Carotid artery disease June 27, 2024 10:37am Nonrheumatic aortic (valve) stenosis Apr 2024 10:37am Essential hypertension June 27, 2024 10:37am Hyperlipidemia June 27, 2024 10: 37am SHAMAR (obstructive sleep apnea) June 10:37am Presence of stent in coronary artery Jun 10:37am [facility] Work Phone: 1(139) 804-617612-17-2024 NoteHNO ID: [id number] Author: EVERETT ALDRICH MD Service: ? Author [...] in 1998, 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 He had been [...] mg by mouth once daily. GLUCOSAM/MSM/CHONDR/VIT C/HYAL (XUESVFAQLLI-HLSOWQAVESC-WAS ORAL) Take 1 tablet by mouth two [...] (Patient not taking: Reported on 07/11/2022) Fish Oil-Oakham-3 Fatty Acids 500-300 mg ORAL Cap Take [...] well-hydrated, well nourished. I (more content not included)...[facility]12-17-2024 History of Present illness Narrative* Everett [...] mg by mouth once daily. GLUCOSAM/MSM/CHONDR/VIT C/HYAL (OUINHGDJIFE-ISPOHPZUXKQ-UMS ORAL) Take 1 tablet by mouth two [...] daily. (Patient not taking:Reported on 07/11/2022) Fish Oil-Oakham-3 Fatty Acids 500-300 mg ORAL Cap Take [...] which included preparing to see the patient, frwe-hb-tehg patient care, completing clinical documentation, obtaining and/or reviewing separately obtained history, ordering medications, tests, or procedures, independently interpreting results (not separately reported), and communicating results to the patient/family/caregiver. Electronically Signed: Everett Aldrich MD March 05, 2024 documented in this encounterTrihealth [facility]11-[facility]24 Instructions* Patient Instructions* Pranav Tate PA-C - 01/23/2024 4:44 PM EST > 1 year Appt w/ B. SHARRI Tate, RODRICK LEUNG for annual follow-up and refills. documented in this encounterTrihealth [facility]11-05-2024 NoteHNO ID: [id number] Author: PRANAV TATE PA-C Service: ? Author Type: Physician Roll Line Operator Type: Progress Notes Filed: 01/23/2024 20:33 Note Text: [facility] CC: Prostate Cancer Follow-Up HPI: This is [...] mg by mouth once daily. GLUCOSAM/MSM/CHONDR/VIT C/HYAL (LQGVMENUKEN-OISRDCRYZAV-CFX ORAL) Take 1 tablet by mouth two times a day. nitroglycerin sublingual 0.3 mg SL tablet Dissolve 0.3 mg under the tongue every 5 minutes as needed. Calcium Carbonate-Vitamin D3 600mg (1,000mg) -1,000 unit ORAL Tab Take 1 tablet by mouth once daily. Fish Oil-Oakham-3 Fatty Acids 500-300 mg ORAL Cap Take [...] Tate, prior to visit, PSA ordered SHARRI Palacios, MADHU, MARIE-[facility]11-05-2024 History of Present illness Narrative* Pranav Tate PA-C - 01/23/2024 4:40 PM EST Images from the original note were not included. [facility] CC: Prostate Cancer Follow-Up HPI: This is [...] mg by mouth once daily. GLUCOSAM/MSM/CHONDR/VIT C/HYAL (QYVZOFFYCNS-DZAGILWFTZT-YOL ORAL) Take 1 tablet by mouth two times a day. nitroglycerin sublingual 0.3 mg SL tablet Dissolve 0.3 mg under the tongue every 5 minutes as needed. Calcium Carbonate-Vitamin D3 600mg (1,000mg) -1,000 unit ORAL Tab Take 1 tablet by mouth once daily. Fish Oil-Oakham-3 Fatty Acids 500-300 mg ORAL Cap Take [...] Tate, prior to visit, PSA ordered SHARRI Palacios, RODRICK LEUNG * Pranav Tate PA-C - 01/23/2024 4:34 PM EST Images from the original note were not included. [facility] [place] [facility] EST PATIENT CLINIC NOTE SERVICE DATE: January 23, 2024 NAME: Alex Carpenter CHIEF COMPLAINT: Hx of Adenocarcinoma of Prostate and OAB HISTORY OF PRESENT ILLNESS: Alex Carpenter is a 88 year old male an established patient following up for Hx of Adenocarcinoma of Prostate and OAB The patient reports running out of his Ditropan and new Rx sent to [facility] today Continued follow-up with Medical Oncology [...] mg by mouth once daily. GLUCOSAM/MSM/CHONDR/VIT C/HYAL (JTRMCLOHZRH-YPWSWXQUCVA-LEF ORAL) Take 1 tablet by mouth two times a day. nitroglycerin sublingual 0.3 mg SL tablet Dissolve 0.3 mg under the tongue every 5 minutes as needed. Calcium Carbonate-Vitamin D3 600mg (1,000mg) -1,000 unit ORAL Tab Take 1 tablet by mouth once daily. Fish Oil-Oakham-3 Fatty Acids 500-300 mg ORAL Cap Take [...] 23, 2024 4:20 PM documented in this encounterTrihealth [facility]11-05-2024 NoteHNO ID: [id number] Author: PRANAV TATE PA-C Service: ? Author Type: Physician Roll Line Operator Type: Progress Notes Filed: 01/23/2024 20:33 Note Text: [facility] [place] [facility] EST PATIENT CLINIC NOTE SERVICE DATE: January 23, 2024 NAME: Alex Carpenter CHIEF COMPLAINT: Hx of Adenocarcinoma of Prostate and OAB HISTORY OF PRESENT ILLNESS: Alex Carpenter is a 88 year old male an established patient following up for Hx of Adenocarcinoma of Prostate and OAB The patient reports running out of his Ditropan and new Rx sent to [facility] today Continued follow-up with Medical Oncology [...] mg by mouth once daily. GLUCOSAM/MSM/CHONDR/VIT C/HYAL (METHWYMZLDO-NXQHIYYBVZE-ILK ORAL) Take 1 tablet by mouth two times a day. nitroglycerin sublingual 0.3 mg SL tablet Dissolve 0.3 mg under the tongue every 5 minutes as needed. Calcium Carbonate-Vitamin D3 600mg (1,000mg) -1,000 unit ORAL Tab Take 1 tablet by mouth once daily. Fish Oil-Oakham-3 Fatty Acids 500-300 mg ORAL Cap Take [...] year Appt w/ B. SHARRI Tate MT, RODRICK for annual follow-up and refills. SHARRI Palacios MT, PA-[facility]11-05-2024 NoteHNO ID: [id number] Author: AN CRESPO RN Service: ? Author [...] An Crespo RN January 23, 2024 4:20 [facility]09-24-2024 History of Present illness Narrative* Crissy Mai - 12/12/2023 9:30 AM EDT Alex Carpenter 1935 12/12/2023 HISTORY OF PRESENT ILLNESS: Alex Carpenter is a 87 year old male diagnosed with prostate cancer in 1998, 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 He had been [...] mg by mouth once daily. GLUCOSAM/MSM/CHONDR/VIT C/HYAL (UTGSOGOOBPM-YOLZFYWDKYT-NMC ORAL) Take 1 tablet by mouth two [...] daily. (Patient not taking:Reported on 07/11/2022) Fish Oil-Oakham-3 Fatty Acids 500-300 mg ORAL Cap Take [...] with current findings. RTC with bre Mai APRN.DATA SUPPORT ANALYST I spent a total of 30 minutes on the date of the service which included preparing to see the patient, bbwt-yv-bggg patient care, completing clinical documentation, performing a [...] evaluation of this patient. documented in this encounterTrihealth [facility]09-24-2024 NoteHNO ID: [id number] Author: CRISSY MAI, ? Service: ? Author [...] mg by mouth once daily. GLUCOSAM/MSM/CHONDR/VIT C/HYAL (YBQAOVDSRUK-KNWOUJRGHOV-GIX ORAL) Take 1 tablet by mouth two [...] (Patient not taking: Reported on 07/11/2022) Fish Oil-Oakham-3 Fatty Acids 500-300 mg ORAL Cap Take one(1) tablet daily. Lab Results Component Value Date PSA 0.15 09/19/2023 PSA 0.17 06/27/2023 PSA 0.21 04/03/2023 PSA 0.21 01/12/2023 PSA 0.50 11/09/2022 PSA 0.47 10/20/2022 PSA 0.04 07/18/2022 PSA 0.07 04/25/2022 PSA 0.19 01/07/2022 PSA 204.80 (H) 10/08/2021 REVIEW OF SYSTEMS: GENERAL: No fever, night sweats, weight loss or ma (more content not included)...[facility]07-02-2024 NoteHNO ID: [id number] Author: EVERETT ALDRICH MD Service: ? Author [...] in 1998, 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 He had been [...] mg by mouth once daily. GLUCOSAM/MSM/CHONDR/VIT C/HYAL (XQXKXXVWMMM-ILCIRTQVIWK-KBF ORAL) Take 1 tablet by mouth two [...] (Patient not taking: Reported on 07/11/2022) Fish Oil-Oakham-3 Fatty Acids 500-300 mg ORAL Cap Take [...] which included preparing to see the patient, hvef-vb-folu patient care, completing clinical documentation, obtaining and/or reviewing separately obtained history, ordering medications, tests, or procedures, independently int (more content not included)...[facility]07-02-2024 History of Present illness Narrative* Everett [...] in 1998, 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 He had been [...] mg by mouth once daily. GLUCOSAM/MSM/CHONDR/VIT C/HYAL (OFXMFAEPZLT-EKCKOHFVXZW-UVB ORAL) Take 1 tablet by mouth two [...] daily. (Patient not taking:Reported on 07/11/2022) Fish Oil-Oakham-3 Fatty Acids 500-300 mg ORAL Cap Take [...] which included preparing to see the patient, awck-lh-nrgx patient care, completing clinical documentation, obtaining and/or reviewing separately obtained history, ordering medications, tests, or procedures, independently interpreting results (not separately reported), and communicating results to the patient/family/caregiver. Electronically Signed: Everett Aldrich MD September 19, 2023 documented in this encounterTrihealth [facility]04-12-2024 Miscellaneous Notes* Telephone Encounter - Trina Murray LPN - 06/30/2023 3:31 PM EDT Returned call to pt. Offered to mail results. Gave him [employer] desk phone number as he is having issues logging in with his password. Trina Murray LPN * Telephone Encounter - Kelli Terry - 06/30/2023 3:13 PM EDT Patient called asking that we send his 06/26 lab results to his email. He states he has a hard time finding things in My Chart. documented in this encounterTrihealth Good [facility]04-09-2024 History of Present illness Narrative* Everett [...] Started back on androgen deprivation therapy with Andred in September 2021, due to PSA 246. [...] mg by mouth once daily. GLUCOSAM/MSM/CHONDR/VIT C/HYAL (LAUBIYDPEOH-CVNDHPVKEEB-YDI ORAL) Take 1 tablet by mouth once daily. nitroglycerin sublingual 0.3 mg SL tablet Dissolve 0.3 mg under the tongue every 5 minutes as needed. Calcium Carbonate-Vitamin D3 600mg (1,000mg) -1,000 unit ORAL Tab Take 1 tablet by mouth once daily. Fish Oil-Oakham-3 Fatty Acids 500-300 mg ORAL Cap Take [...] which included preparing to see the patient, qjxx-gz-zapd patient care, completing clinical documentation, obtaining and/or reviewing separately obtained history, ordering medications, tests, or procedures, independently interpreting results (not separately reported), and communicating results to the patient/family/caregiver. Electronically Signed: Everett Aldrich MD June 27, 2023 documented in this encounterTrihealth [facility]03-21-2024 Miscellaneous Notes* Telephone Encounter - Stephanie Balderas - 06/08/2023 4:29 PM EDT Patient returned call and scheduled with Pranav Tate. Stephanie Balderas * Telephone Encounter - Mireya Espinosa - 06/07/2023 2:49 PM EDT Called patient and left a vm to return our phone call. Rdhart message sent Mireyarainer Espinosa * Telephone Encounter - Irene Florentino RN - 06/07/2023 2:43 PM EDT PSS: please call patient to schedule follow up with Urology in [place]. Last seen Pranav Tate 2021. Marni Florentino [...] on his mobile phone when able at [phone] Thank you, Shannon Davenport documented in this encounterTrihealth Good Samaritan Hospital01-02-2024 Discharge summary Author Otto Shirley [facility] March 21, 2023 10:21am Note Date/Time March 21, 2023 10 :21am [facility] Physical Therapy [facility] [address] [place] [address] [address] [place] [address] / REHABILITATION SERVICES DISCHARGE SUMMARY MR#: [id number] Acct: [id number] Name: ALEX CARPENTER Rep #: [id number] : 1935 87 From: Otto Shirley DPT, OCS, CSCS Referring Dr.: Dr. Otto Subramanian MD Status: REG RCR Insurance: [employer] [facility] SELF PAY INSURANCE Discharge Summary D/C summary: [...] please feel free to call me at [phone]. Thank you for the referral of thispatient. Sincerely, Otto Shirley DPT, OCS, CSCS Balance/Gait/Functional tests Balance/Special Test Scores Functional Gait Assessment Score: 27 % Disability: 10.0000 CATSIB Score (Max score 120 seconds): 110 Lower Extremity Functional Score: 45 Improvement % Improvement: 80 <Electronically signed by Otto Shirley DPT, OCS, CSCS> 03/21/23 1021 CC: Dr. Otto Subramanian MD ~ EBG Signed [facility] Work Phone: 1(838) 693-654312-15-2023 Miscellaneous Notes* Telephone Encounter - Ileana Leiva - 03/03/2023 11:51 AM EST Pt scheduled as directed * Telephone Encounter - Margie Corbin RN - 03/03/2023 10:[address] Aldrich, please schedule next zometa out a month so he can get both his eligard and zometa on same day. documented in this encounterTrihealth Good Samaritan Hospital11-13-2023 Miscellaneous Notes* Telephone Encounter - Kelli [...] and advise. Kelli Davenport documented in this encounterTrihealth Good Samaritan Hospital10-20-2023 Miscellaneous Notes* Telephone Encounter - Stephanie Tavarez RN - 01/06/2023 8:26 AM EDT Per Baltazar, pt will not receive Zometa today due to kidney function. Spoke to and updated her. Reminded her of appt on 01/12. Appt canceled. documented in this encounterTrihealth Good Samaritan Hospital08-04-2023 Miscellaneous Notes* Telephone Encounter - Leisa Woods LPN - 10/21/2022 12:31 PM EDT Left message on patient's VM. Pembe Panjurt message sent. Leisa Woods LPN * Telephone Encounter - Leisa Woods LPN - 10/20/2022 5:02 PM EDT Noted. Leisa Woods LPN * Telephone Encounter - Kelli Terry - 10/20/2022 3:51 PM EDT Patient requesting a call when PSA results are completed documented in this encounterTrihealth Good Samaritan Hospital08-03-2023 Miscellaneous Notes* Addendum Note - Abramovich, Everett, MD - 10/20/2022 10:00 AM EDTAddended by: EVERETT ALDRICH on: 10/20/2022 10:00 AM Modules accepted: Orders documented in this encounterTrihealth Good Samaritan Hospital08-03-2023 Nurse Note* Trina Murray LPN - 10/20/2022 9:49 AM EDT Pt here for injection of Eligard. Given sq in LLQ. Pt tolerated well. For all other information regarding today, see today's OV note with Dr Aldrich. Trina Murray LPN documented in this encounterTrihealth Good Samaritan Hospital08-03-2023 History of Present illness Narrative* Everett Aldrich MD - 10/20/2022 9:21 AM EDT HISTORY OF PRESENT ILLNESS: Alex Carpenter is a 87 year old male diagnosed with prostate cancer in 1998, 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 He had been [...] by mouth once daily.^Disp: ^Rfl: GLUCOSAM/MSM/CHONDR/VIT C/HYAL ([id number] ORAL)^Take 1 tablet by mouth once daily.^Disp: ^Rfl: nitroglycerin sublingual 0.3 mg SL tablet^Dissolve 0.3 mg under the tongue every 5 minutes as needed.^Disp: ^Rfl: Calcium Carbonate-Vitamin D3 600mg (1,000mg) -1,000 unit ORAL Tab^Take 1 tablet by mouth once daily.^Disp: 30 tablet^Rfl: 6 Fish Oil-Oakham-3 Fatty Acids 500-300 mg ORAL Cap^Take one(1) [...] which included preparing to see the patient, jlaj-ye-[id number] patient care, completing clinical documentation, obtaining and/or reviewing separately obtained history, ordering medications, tests, or procedures, independently interpreting results (not separately reported), and communicating results to the patient/family/caregiver. Electronically Signed: Everett Aldrich MD October 20, 2022 9:21 AM documented in this encounterTrihealth Good Samaritan Hospital07-26-2023 History of Present illness Narrative* Rose Mary Sharp, RN - 10/12/2022 3:41 PM EDT Pt [...] Rose Mary Sharp RN documented in this encounterTrihealth Good Samaritan Hospital05-11-2023 Nurse Note* Gilda Back LPN - 07/28/2022 9:08 AM EDT Eligard injection administered, RLQ ,tolerated well, no immediate adverse reactions noted. See office notes Gilda Back LPN documented in this encounterTrihealth Good Samaritan Hospital05-11-2023 History of Present illness Narrative* Bree Cornejo APRN.DATA SUPPORT ANALYST - 07/28/2022 8:41 AM EDT Chief Complaint Patient presents with: Follow Up HPI: Alex Carpenter is a 86 year old male who presents here today for follow up prostate cancer. Per Dr. Fernandes's previous note: H/o diagnosed with prostate cancer in 1998, status post radical prostatectomy for [place] score 6 =3+3. He had been on [...] visit. Bree Cornejo APRN.GIAN documented in this encounterTrihealth Good Samaritan Hospital05-01-2023 Miscellaneous Notes* Telephone Encounter - Denilson Fernandes DO - 07/18/2022 9:59 AM EDT Orders filed. Denilson Fernandes DO * Telephone Encounter - Gilda Back LPN - 07/18/2022 9:55 AM EDT Pt. Here for labs, wrong orders are in, They are for [facility], please sign pended orders. Gilda Back LPN documented in this encounterTrihealth Good Samaritan Hospital04-24-2023 History of Present illness Narrative* Denilson [...] (98.1 F), weight 96.2 kg (212 lb), [id number] %. Well-appearing and in no acute distress. EYES: Sclerae are anicteric bilaterally. LYMPHATIC: There is no palpable cervical or supraclavicular adenopathy. RESPIRATORY: Inspiratory breath sounds are of normal intensity in all mancini. CARDIOVASCULAR: Rhythm is regular. ABDOMEN: The abdomen is nondistended. Extremities: No swelling or edema. SKIN: No jaundice. NEUROLOGIC: airfreight operations agent II-XII are grossly intact. No focal motor [...] Lymph 1.00 - 4.00 k/uL 0.87 (L) Iron% % 8.5 Abs Iron <0.87 k/uL 0.76 Eosin% % 2.7 Abs [...] which included preparing to see the patient, gmsb-wi-pspi patient care, completing clinical documentation, obtaining and/or reviewing separately obtained history, performing a medically appropriate examination, counseling and educating the pat ient/family/caregiver, ordering medications, tests, or procedures, and communicating results to thepatient/family/caregiver. Denilson Fernandes DO Cc: Dr. Otto Subramanian documented in this encounterTrihealth Good Samaritan Hospital04-12-2023 Miscellaneous Notes* Telephone Encounter - Hanna Levin MD - 06/29/2022 12:59 PM EDT Alex * Telephone Encounter - Irene Florentino RN [...] time. Marni Florentino RN documented in this encounterTrihealth Good Samar[facility] Hospital04-10-2023 Miscellaneous Notes* Telephone Encounter - Hanna Levin MD - 06/27/2022 9:39 AM EDT Carine alan * Telephone Encounter - Irene Florentino RN [...] another update. Marni Florentino RN Disposition: per Sales Advisory Manager, patient directed to: Manage at home. Provided instructions and will call back. Irene Florentino RN * Telephone Encounter - Kelli Levine Pss - 06/24/2022 10:02 AM EDT Patient called requesting to speak to Marni regarding medication and dizziness. documented in this encounterTrihealth Good Samaritan Hospital04-04-2023 Miscellaneous Notes* Telephone Encounter - Irene [...] from the original note were not included. [facility] Care Coordination FOLLOW-UP NOTE Patient identified by [...] RN June 21, 2022 documented in this encounterTrihealth Good Samaritan Hospital02-16-2023 History of Present illness Narrative* Trina Murray LPN - 05/05/2022 12:03 PM EST Pt here for injection of Eligar. Given sq in RLQ. Pt tolerated well. Trina Murray LPN documented in this encounterTrihealth Good Samaritan Hospital02-08-2023 Miscellaneous Notes* Telephone Encounter - Stephanie Balderas - 04/27/2022 9:18 AM EST Spoke with patient and scheduled. Stephanie Balderas * Telephone Encounter - Bree Cornejo APRN.GIAN - 04/27/2022 8:08 AM EST Discussed case with Dr. Fernandes. Decrease dose of erleada to 3 tabs/day d/t pt. feeling unsteady. Rx sent per Dr. Fernandes. Zometa monthly. Lupron every 3 months. OV in 3 months with PSA/CBC/CMP. Spoke with pt. he agrees with above. Thank you. Bree Cornejo APRN.DATA SUPPORT ANALYST * Telephone Encounter - Adwoa Washburn - 04/26/2022 4:27 PM EST Patient is requesting to speak with clinical staff about PSA results and ordered procedures. Pleasecontact the patient at any time. documented in this encounterTrihealth Good Samaritan Hospital02-06-2023 Discharge summary Author Otto Shirley [facility] April 25, 2022 8:15am Note Date/Time April 25, 2022 8 :15[facility] Physical Therapy [facility] [address] [place] [address] / REHABILITATION SERVICES DISCHARGE SUMMARY MR#: [id number] Acct: [id number] Name: ALEX CARPENTER Rep #: [id number] : 1935 86 From: Otto Shirley DPT, DENISE, CSCS Referring Dr.: Dr. Otto Subramanian MD Status: REG RCR Insurance: [employer] [facility] SELF PAY INSURANCE ALEX CARPENTER was seen [...] the physician. Thank you! Otto Shirley DPT, DENISE, CSCS Balance/Gait/Functional tests - Balance/Special Test Scores Functional Gait Assessment Score: 26 % Disability: 13.3400 CATSIB Score (Max score 120 seconds): 115 Dizziness Score: 24 Lower Extremity Functional Score: 56 <Electronically signed by Otto Shirley DPT, DENISE, CSCS> 04/25/22 0815 CC: Dr. Otto Subramanian MD ~ EBG Signed [facility] Work Phone: 1(577) 166-321401-18-2023 History of Present illness Narrative* Margie Bhakta [...] laboratory parameters, disease state markers and outcomes. Gandy Dancer Assessment Patient confirmed: Yes Med/dose confirmed: Yes Supplies needed: No supplies needed Missed doses: No Estimated days supply on hand: 7 Copay amount: 0 Payment confirmed: Yes Delivery method: FedEx Signature required: No Delivery address: [address] [place] [address], [place], [address] Delivery date: 04/08/22 Questions or concerns for the pharmacist?: No [facility] Visit Assessment - Hematology/Oncology: [...] fracture risk. Margie Bhakta documented in this encounterTrihealth Good Samaritan Hospital12-20-2022 History of Present illness Narrative* Yoana Casilals - 03/08/2022 12:51 PM EST [facility] [...] laboratory parameters, disease state markers and outcomes. Gandy Dancer Assessment Patient confirmed: Yes Med/dose confirmed: Yes Supplies needed: No supplies needed Missed doses: No Estimated days supply on hand: 8 Copay amount: 0 Payment confirmed: Yes Delivery method: FedEx Signature required: No Delivery address: [address] [place] [address] *leave between screen door* [place] [address] Delivery date: 03/16/22 Questions or concerns for the pharmacist?: No [facility] Visit Assessment - Hematology/Oncology: [...] fracture risk. Yoana Casillas documented in this encounterTrihealth Good Samaritan Hospital12-20-2022 Miscellaneous Notes* Telephone Encounter - Aparna [...] patient. Aparna Becerra MD documented in this encounterTrihealth Good Samaritan Hospital11-18-2022 History of Present illness Narrative* Anabelle Choi (Top Hat Body Maker) - 02/04/2022 11:19 AM EST [facility] [...] laboratory parameters, disease state markers and outcomes. Robert Jensen, NunoD Clinical Pharmacist, Oncology [facility] P: ; F: Pool: P CC [facility] Pool #: [id number] Gandy Dancer Assessment Patient confirmed: Yes Med/dose confirmed: Yes Supplies needed: No supplies needed Missed doses: No Estimated days supply on hand: 10 Copay amount: 0 Payment confirmed: No Delivery method: FedEx Signature required: No Delivery address: [address] [place] [address] *leave between screen door*,[place] [address] Delivery date: 02/09/22 [facility] Visit Assessment - Hematology/Oncology: [...] Yes Scheduled future appointments: Yes Anabelle Choi (Top Hat Body Maker) documented in this encounterTrihealth Good Samaritan Hospital11-15-2022 History of Present illness Narrative* Pranav Tate PA-C - 02/01/2022 5:53 PM EST Images from the original note were not included. [facility] CC: Prostate Cancer Follow-Up HPI: This is [...] by mouth once daily.^Disp: ^Rfl: GLUCOSAM/MSM/CHONDR/VIT C/HYAL ([id number] ORAL)^Take by mouth once daily.^Disp: ^Rfl: nitroglycerin sublingual 0.3 mg SL tablet^Dissolve 0.3 mg under the tongue every 5 minutes as needed.^Disp: ^Rfl: Calcium Carbonate-Vitamin D3 600mg (1,000mg) -1,000 unit ORAL Tab^Take 1 tablet by mouth once daily.^Disp: 30 tablet^Rfl: 6 Fish Oil-Oakham-3 Fatty Acids 500-300 mg ORAL Cap^Take one(1) [...] Tate, prior to visit, PSA ordered SHARRI Palacios, MADHU, RODRICK * Adela Richard BERMAN - 02/01/2022 4:48 PM EST Verified name and date of . Patient has questions related to his care he would like to discuss with provider. documented in this encounterTrihealth Good Samaritan Hospital11-09-2022 Miscellaneous Notes* Telephone Encounter - Adela [...] this time his PSA was 0.19 SHARRI Palacios, RODRICK LEUNG * Telephone Encounter - Gilda Back LPN [...] clarification. Adela Ramos LPN documented in this encounterTrihealth Good Samaritan Hospital11-02-2022 Miscellaneous Notes* Telephone Encounter - Destinee Zhu [...] Okay to leave message. documented in this encounterTrihealth Good Samaritan Hospital10-24-2022 Miscellaneous Notes* Telephone Encounter - Leisa Woods LPN - 01/10/2022 8:38 AM EDT OV note faxed (includes labs). Leisa Woods LPN * Telephone Encounter - Leisa Woods LPN - 01/07/2022 11:35 AM EDT Patient seen today. OV note not completed. Will fax when signed. Leisa Woods LPN * Telephone Encounter - Ingris Davenport - 01/07/2022 11:02 AM EDT Jewels from Dr Subramanian's office is requesting last office notes and any labs be faxed to them at [phone] documented in this encounterTrihealth Good Samaritan Hospital09-20-2022 History of Present illness Narrative* Anabelle Choi (Top Hat Body Maker) - 12/07/2021 9:30 AM EDT [facility] [...] laboratory parameters, disease state markers and outcomes. Gandy Dancer Assessment Patient confirmed: Yes Med/dose confirmed: Yes Supplies needed: No supplies needed Estimated days supply on hand: 10 Copay amount: 0 Payment confirmed: Yes Delivery method: FedEx Signature required: No Delivery address: [address] [place] [address] Delivery date: 12/10/21 Questions or concerns for the pharmacist?: No [facility] Visit Assessment - Hematology/Oncology: [...] Assess for fall and fracture risk. Anabelle Choi (Top Hat Body Maker) documented in this encounterTrihealth Good Samaritan Hospital08-16-2022 Miscellaneous Notes* Telephone Encounter - Leisa Woods [...] Telephone Encounter - Ingris Flor Pss - 11/01/2021 5:00 PM EDT Patient is calling asking if he will need to reorder the Erleada 60 mg medication . Please advise the patient., documented in this encounterTrihealth Good Samaritan Hospital08-08-2022 Miscellaneous Notes* Telephone Encounter - Irene [...] comply. Irene Florentino RN documented in this encounterTrihealth Good Samaritan Hospital08-05-2022 Miscellaneous Notes* Telephone Encounter - Brett Villegas - 10/22/2021 11:32 AM EDT Rec'd call back from pt, advised of navigator services. Pt stated understanding and advised that they do not require assistance but will follow up if needed. * Telephone Encounter - rBett Villegas - 10/22/2021 10:39 AM EDT Working Cancer Mar[facility]. Non chemo regimen. Patient is active with [employer] Medicare, LOC 96%, $150 deductible has $0 remaining, $1500 OOP has $1003.30 remaining. Estimate shows patient financial responsibility is $26.78 for each treatment in [facility] until oop max is reached. Reference #[id number]. Thereare no open foundations for Dx. Called patient, no answer, left vm documented in this encounterTrihealth Good Samaritan Hospital07-27-2022 Miscellaneous Notes* Telephone Encounter - Trina Murray LPN - 10/13/2021 2:31 PM EDT Will fax this information to Dr Macario, his diet kitchen cook. Trina Murray LPN * Telephone Encounter - [...] because of interaction with APALUTAMIDE Ask his diet kitchen cook about stopping TICAGRELOR and continue with aspirin 81 mg once daily only. Prasugrel could be a reasonable substitute if he absolutely needs to be on both aspirin and ticagrelor. Aparna Becerra MD documented in this encounterTrihealth Good Samaritan Hospital07-25-2022 Miscellaneous Notes* Telephone Encounter - Aparna Becerra MD - 10/11/2021 11:28 AM EDT Yes. He could take calcium carbonate 500 mg twice daily with ergocalciferol once weekly Aparna Becerra MD * Telephone Encounter - Glida Back LPN - 10/11/2021 9:21 AM EDT [...] Trina Murray LPN * Telephone Encounter - pAarna Becerra MD - 10/09/2021 10:00 AM EDT Start ergocalciferol 50,000 U weekly. His vitamin D level was low. Signed Prescriptions Disp Refills ergocalciferol 50,000 unit capsule (VITAMIN D2, DRISDOL) 12 capsule 3 Sig: Take 1 capsule by mouth one time a week. Authorizing Provider: APARNA BECERRA Order entered - please phone pharmacy and notify patient. Aparna Becerra MD documented in this encounterTrihealth Good Samaritan Hospital07-22-2022 History of Present illness Narrative* Anabelle Choi (Top Hat Body Maker) - 10/08/2021 11:08 AM EDT [facility] received prescription(s) for Erleada from Dr. Becerra's office. Benefits investigation was conducted, indicating that a prior authorization is required by patient's insurance plan with [employer]/ [employer]. Encounter will be updated once prior authorization has been submitted by [facility]. Anabelle Choi CPHt documented in this encounterTrihealth Good Samaritan Hospital07-22-2022 History and physical note * Aparna Becerra MD - 10/08/2021 10:12 AM EDT Hematology and Medical Oncology PATIENT NAME: Alex Carpenter. CLINIC NO: [id number]. ATTENDING PHYSICIAN: Aparna Becerra MD. DATE OF [...] in 1998, 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 He has been [...] mg by mouth twice daily. GLUCOSAM/MSM/CHONDR/VIT C/HYAL ([id number] ORAL) Take by mouth once daily. nitroglycerin sublingual 0.3 mg SL tablet Dissolve 0.3 mg under the tongue every 5 minutes as needed. Calcium Carbonate-Vitamin D3 600mg (1,000mg) -1,000 unit ORAL Tab Take 1 tablet by mouth once daily. Fish Oil-Oakham-3 Fatty Acids 500-300 mg ORAL Cap Take [...] Lymph 1.00 - 4.00 k/uL 0.95 (L) Iron% % 7.5 Abs Iron <0.87 k/uL 0.57 Eosin% % 4.7 Abs [...] agreed to proceed with therapy. 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 -Repeat CBC, CMP, PSA & vitamin D 25 office visit in 3 months I spent 60 minutes in the visit, with more than 50% of the total qjtc-mp-marj time of the visit in counseling / coordination of care. Aparna Becerra MD. ELECTRONICALLY SIGNED Cc: Dr. Otto Subramanian documented in this encounterTrihealth Good Samaritan Hospital07-22-2022 Instructions* Patient Instructions* Aparna Becerra MD - 10/08/2021 9:45 AM EDT Information on Apalutamide for metastatic prostate cancer documented in this encounterTrihealth Good Samaritan Hospital07-11-2022 Miscellaneous Notes* Telephone Encounter - Pranav [...] 07/[address] Becerra - Medical Oncology [facility] SHARRI Palacios, MADHU, RODRICK * Telephone Encounter - Anabelle Osborne RN - 09/27/2021 2:47 PM EDT Received call from Dr. Otto Subramanian's office. He would like to discuss results of body scan with Pranav indicating 3 areas of possible metastasis of prostate cancer. Please call to discuss at your soonest convenience. documented in this encounterTrihealth Good Samaritan Hospital07-08-2022 History of Present illness Narrative* Adela [...] 07/05/2019 0.25 03/06/2019 33.08 03/04/2019 29.01 PSA [facility] ( lab) - 52 PSA [facility] (lab) 245 Physical Exam: General appearance: cooperative, pleasant, no acute distress, alert and oriented, well hydrated, well nourished male. 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 documented in this encounterTrihealth Good Samaritan Hospital07-07-2022 Miscellaneous Notes* Telephone Encounter - Adela Ramos LPN - 09/23/2021 9:43 AM EDT Called [facility]- not available. Left message requesting lab to be faxed for appointment tomorrow. Adela Ramos LPN * Telephone Encounter - Lupe Barraza RN - 09/22/2021 12:00 PM EDT Pt called in to notify that his PCP Otto Subramanian ordered a PSA test and results were 200. Pt scheduled with Pranav 09/24/21 and will have office fax results to urology office. 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 Essential hypertension chron ic Hyperlipidemia chronic Presence of stent in coronary artery Jul, 2013 [facility] Work Phone: Evaluation note* Diagnosis Prostate cancer (HCC)- Primary Malignant neoplasm of prostate Elevated PSA Elevated prostate specific antigen (PSA) documented [facility] encounter [facility]* Diagnosis Malignant neoplasm of prostate (HCC)- Primary Malignant neoplasm of prostate [facility]* Diagnosis Malignant neoplasm of prostate (HCC)- Primary Malignant neoplasm of prostate 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 Osteopenia determined by x-ray documented [facility]* Diagnosis Osteopenia determined by x-ray- Primary Vitamin D deficiency Unspecified vitamin D deficiency [facility]* Diagnosis 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 Malignant neoplasm of prostate (HCC) Malignant neoplasm of prostate [facility] Diagnosis Malignant neoplasm of prostate (HCC) Malignant neoplasm of prostate 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 [facility]* Diagnosis Malignant neoplasm of prostate (HCC)- Primary Malignant neoplasm of prostate [facility] Diagnosis Malignant neoplasm of prostate (HCC) [...] [facility]* Diagnosis Prostate cancer (HCC)- Primary Malignant neoplasm of prostate [facility]* Diagnosis Elevated PSA- Primary Elevated prostate specific antigen (PSA) [facility]* Diagnosis Malignant neoplasm of prostate (HCC)- Primary Malignant neoplasm of prostate [facility]* Diagnosis Malignant neoplasm of prostate (HCC) Malignant neoplasm of prostate 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 documented in this encounter [facility] noteNo assessment information availableWCleveland Clinic Mer[facility] Work Phone: Evaluation note* Diagnosis Bone [...] [facility] Osteopenia determined by x-ray Vitamin D deficiency Unspecified vitamin D deficiency [facility] Diagnosis Onset Date Resolution Status Carotid artery disease acute Nonrheumatic aortic (valve) stenosis acute Premature atrial contractions acute Essential hypertension chron ic Hyperlipidemia chronic Presence of stent in coronary artery Jul, 2013 [facility] Work Phone: Evaluation note* Diagnosis Malignant neoplasm [...] [facility] Diagnosis OAB (overactive bladder)- Primary Hypertonicity of bladder Malignant neoplasm of prostate (HCC) Malignant neoplasm of prostate [facility] Diagnosis Malignant neoplasm of prostate (HCC)- Primary Malignant neoplasm of prostate 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 [facility] Diagnosis Loss of balance- Primary Other symptoms involving nervous and musculoskeletal systems Osteopenia determined by x-ray Vitamin D deficiency Unspecified vitamin D deficiency 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 [facility] Diagnosis Recurrent falls- Primary Personal [...] whether sciatica present [facility] Diagnosis Malignant neoplasm of prostate (HCC)- Primary Malignant neoplasm of prostate 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 [facility] Diagnosis Low back pain, unspecified back pain laterality, unspecified chronicity, unspecified whether sciatica present [facility] Diagnosis Other symptoms and signs involving the nervous system [facility] Diagnosis Recurrent falls- Primary Personal [...] stenosis, unspecified laterality [facility] Diagnosis Malignant neoplasm of prostate (HCC)- Primary Malignant neoplasm of prostate 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 Additional Instructions Your labs, EKG [...] an MRI of your lumbar and/or [facility] Work Phone: Hospital Discharge instructions Additional Instructions ICE 20 min on, 20 min off. Continue stretching, follow up with physical therapy if needed.[facility] Work Phone: Progress note Author Damaris Lee [facility] Note Date/Time September 29, 2024 9:47 am [facility] [address] [place] [address] OFFICE VISIT Date of Service: 09/29/24 MR#: [id number] Acct: [id number] Patient: ALEX CARPENTER Rep #: [id number] : 1935 Provider: MARIE Cary Age/Sex: 89/M Location: [email or web address] Status: Signed Intake Vital Signs 09/26/24 08:11 09/29/24 09:37 Height 5 ft 8 in 5 ft 8 in Weight: 180 lb 180 lb BMI 27.3 27.3 BP 143/86 H 108/62 Blood Pressure Location Lt brachial Lt brachial Position Sitting Sitting Respiration 16 16 Pulse 72 86 Pulse Source NIBP NIBP Temp 98.5 F Temp Source Oral Pulse Oximetry (%) 98 Oxygen Delivery Method room air Intake Visit Reasons: RED SWOLLEN L ANKLE/FOOT Chief Complaint: LLE swelling/redness Family Law Paralegal Required: No Is patient in pain?: Yes Allergies lisinopril Adverse Reaction (Severe, Verified 09/29/24 09:38) cough Have you fallen in the past year?: No Nurse's Note: LLE swelling/redness x 3 days with tenderness. BLE edema noted, redness to LLE,no drainage noted. pt is a [facility] pt, does not use support hose, takes diuretic prn and has only taken three times since getting RX. 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 Patient states that the swelling started bilaterally a few days ago. Primary care doctor did give him some diuretics. He has not started to take it. He states since then his left leg has gotten significantly warmer and it is warm to touch. He does not recall injuring it. He does not have any open sores on it. He has not had any fevers or chills. He does have an upcoming heart catheterization for his severe aortic stenosis. ROS Const Constitutional: Positive for other (ROS negative x 6 except what is described above) Exam Const General: cooperative, healthy appearing and no acute distress Nutritional Appearance: average body habitus Orientation: alert, awake and oriented x3 [facility] Head: normal to inspection and atraumatic Ears: hearing grossly normal bilaterally Nose: external nose normal Face and sinus: normal facial exam Mouth: oral mucosae normal Eyes General: appearance normal, both eyes and all related structures Musc Other: Left leg edematous and reddened. It is warm to touch. No open oozing noted. Swollen a third of the way up his leg. Right leg not swollen venous insufficiency noted bilaterally Neuro General: patient alert, patient awake, patient oriented x3 and CN's II-XI intactbilaterally Coding Level of Care Code Off vis,est,level 3 Diagnoses Left leg cellulitis L03.116 Assessment and Plan Assessment and Plan (1) Left leg cellulitis: Status: Acute Plan: Encouraged patient to start his diuretic. Also will treat with an antibiotic. If it is not improved in a few days he should let his primary care doctor be aware of this. Medications: New cephalexin 500 mg PO BID 7 days 14 caps 0RF Clinical Quality Measures Falls Risk Screening/Assistive Devices Have you fallen in the past year?: No 09/29/24 0947 <Electronically signed by Damaris Story> Date _ Damaris SALAZAR Cosigner Signature: Date (if applicable) CC: ~ [place] [employer] Work Phone: [facility] for visit Narrative* MRI/CT (Routine) - Closed Specialty Diagnoses / Procedures Referred By Zack alexander Referred To Contact [facility] Diagnoses Low back pain, unspecified back pain laterality, unspecified chronicity, unspecified whether sciatica present Procedures MRI LUMBAR SPINE WO/W IVCON MRI SPINAL CANAL LUMBAR W/O & W/CONTR MATRL Kaushal Stockton Jr., MD [address] [place] [address] Phone: tel: fax: [place] [id number] Referral ID Status Reason Start Date Expiration Date V isits Requested Visits Authorized [id number] Closed Auto-Generate d Referral 05/24/2024 06/23/2025 1 1 [facility] for visit Narrative* MRI/CT (Routine) - Closed Specialty Diagnoses / Procedures Referred By Zack alexander Referred To Contact MR IMAGING Diagnoses Other symptoms and signs involving the nervous system Procedures MRI BRAIN WO/W IVCON MRI BRAIN BRAIN STEM W/O W/CONTRAST MATERIAL Kaushal Stockton Jr., MD [address] [place] [address] Phone: tel: fax: [place] [id number] Referral ID Status Reason Start Date Expiration Date V isits Requested Visits Authorized [id number] Closed Auto-Generate d Referral 05/24/2024 06/23/2025 1 1 [facility] Chief Complaint and Reason for Visit Chief Complaint 6 M FU PAIN Reason for Visit Bilateral carotid br uits Nonrheumatic aortic (valve) stenosis Premature atrial contractions Atherosclerotic heart disease of [place] coronary artery without angina pectoris Essential hypertension Hyperlipidemia Presence of stent in coronary artery Chief Complaint 6 M FU PAIN left sided chest pain INCREASING PAIN, WEAKNESS Reason for Visit Bilateral carotid br uits Nonrheumatic aortic (valve) stenosis Premature atrial contractions Atherosclerotic heart disease of [place] dehe coronary artery without angina pectoris Essential hypertension [...] of stent in coronary artery Chief Complaint Admit Date 6 M FU June 27, 2024 10: 37am INT LAB ORDERS June 27, 2024 11: 18am PRE OP September 12, 2024 6:49 am PRE OP September 12, 2024 3:20 pm PRE OP September 16, 2024 1:57 pm UPDATE H&P September 26, 2024 7:53 am Reason for Visit Admit Date Carotid artery disease June 27, 2024 10:37am Nonrheumatic aortic (valve) stenosis Apr 2024 10:37am Essential hypertension June 27, 2024 10:37am Hyperlipidemia June 27, 2024 10: 37am SHAMAR (obstructive sleep apnea) June 10:37am Presence of stent in coronary artery Apr 2024 10:37am Carotid artery disease September 26, 2024 7 :53am Nonrheumatic aortic (valve) stenosis Sep 7:53am Essential hypertension September 26, 2024 7 :53am Hyperlipidemia September 26, 2024 7:53 am SHAMAR (obstructive sleep apnea) September 26, 2024 7:53am Presence of stent in coronary artery Sep 7:53am Chief Complaint Admit Date 6 M FU June 27, 2024 10: 37am INT LAB ORDERS June 27, 2024 11: 18am PRE OP September 12, 2024 6:49 am PRE OP September 12, 2024 3:20 pm PRE OP September 16, 2024 1:57 pm UPDATE H&P September 26, 2024 7:53 am RED SWOLLEN L ANKLE/FOOT September 29, 2024 9:27am Reason for Visit Admit Date Carotid artery disease June 27, 2024 10:37am Nonrheumatic aortic (valve) stenosis Apr 2024 10:37am Essential hypertension June 27, 2024 10:37am Hyperlipidemia June 27, 2024 10: 37am SHAMAR (obstructive sleep apnea) June 10:37am Presence of stent in coronary artery Apr 2024 10:37am Carotid artery disease September 26, 2024 7 :53am Nonrheumatic aortic (valve) stenosis Sep 7:53am Essential hypertension September 26, 2024 7 :53am Hyperlipidemia September 26, 2024 7:53 am Presence of stent in coronary artery Sep 7:53am Left leg cellulitis September 29, 2024 9:27 am Advance Directives No Advanced Directives Records Found Advance Directive Response Recorded Date/ Time Living Will Yes August 16, 2021 1 0:09am Power of Solution Mixer Yes August 16, 2021 10:09am Advance Directive Response Recorded Date/ Time Name of Medical Power of Solution Mixer August 16, 2021 10:09am Name of Medical Power of Solution Mixer August 31, 2021 4:12am Living Will Yes August 31, 2021 4:12am Power of Solution Mixer Yes August 31 4:12am Advance Directive Response Recorded Date/ Time Living Will Yes August 31, 2021 3:12am Power of Solution Mixer Yes August 31 3:12am Advance Directive Response Recorded Date/ Time Name of Medical Power of Solution Mixer Kimber Carpenter June 21, 2022 11:55pm Living Will Yes June 21, 2022 11:55pm Power of Solution Mixer Yes June 21 11:55pm Advance Directive Response Recorded Date/ Time Living Will Yes June 21, 2022 11:55pm Power of Solution Mixer Yes June 21 11:55pm Name of Medical Power of Solution Mixer Kimber Greyamy June 21, 2022 11:55pm Advance Directive Response Recorded Date/ Time Name of Medical Power of Solution Mixer Kimber Greyamy June 21, 2022 11:55pm Name of Medical Power of Solution Mixer KIMBER GREYAMY October 15, 2022 10:29am Living Will No October 15, 2022 10:29am Power of Solution Mixer Yes October 15 10:29am Advance Directive Response Recorded Date/ Time Name of Medical Power of Solution Mixer Kimber Carpenter June 21, 2022 11:55pm Name of Medical Power of Solution Mixer KIMBER GREYAMY October 15, 2022 10:29am Name of Medical Power of Solution Mixer kimber carpenter October 17, 2022 12:23pm Living Will No October 17, 2022 12:23pm Power of Solution Mixer Yes October 17 12:23pm Advance Directive Response Recorded Date/ Time Living Will No October 17, 2022 11:23am Power of Solution Mixer Yes October 17 11:23am Advance Directive Response Recorded Date/ Time Living Will No October 17, 2022 12:23pm Power of Solution Mixer Yes October 17 12:23pm Advance Directive Response Recorded Date/ Time Living Will No October 17, 2022 12:23pm Do you have a Healthcare Power of Solution Mixer? Yes October 17, 2022 12:23pm Medications Administered [...] 22.5 mg, SUBCUTANEOUS, ONCE, 1 dose, On Michelle 10/20/22 at 0930, Hazardous Chemotherapy Drug: Use appropriate [...] Referral Specialty Diagnoses / Procedures Referred By Contjuarez alexander Referred To Contact MR IMAGING Diagnoses Early onset cerebellar ataxia (HCC) Procedures MRI BRAIN WO/W IVCON MRI BRAIN BRAIN STEM W/O W/CONTRAST MATERIAL Hanna Levin MD [address] [place] [address] Mr Imaging Referral ID Status Reason Start Date Expiration Date Visits Requested Visits Authorized [id number] Pending Review Auto-Generat ed Referral 06/21/2022 07/21/2023 1 1 Specialty Diagnoses / Procedures Referred By Zack t Referred To Contact Neurology Diagnoses Loss of balance Procedures CONSULT TO NEUROLOGY OFFICE/OUTPATIENT [facility] [address] [place] [address] [place] [address] Referral ID Status Reason Start Date Expiration Date Visits Requested Visits Authorized [id number] Authorized PCP Requested Referral 4 03/05/2025 1 1 Summary Purpose Family History [...] or prosecute any alcohol or drug abuse patient.[facility] the event this information is protected by the Federal Confidentiality of Alcohol and Drug Abuse Patient Records regulations: The Federal rules restrict any use of the information to criminally investigate or prosecute any alcohol or drug abuse patient.[facility] the event this information is protected by the Federal Confidentiality of Alcohol and Drug Abuse Patient Records regulations: The Federal rules restrict any use of the information to criminally investigate or prosecute any alcohol or drug abuse patient.[facility] the event this information is protected by the Federal Confidentiality of Alcohol and Drug Abuse Patient Records regulations: The Federal rules restrict any use of the information to criminally investigate or prosecute any alcohol or drug abuse patient.[facility] the event this information is protected by the Federal Confidentiality of Alcohol and Drug Abuse Patient Records regulations: The Federal rules restrict any use of the information to criminally investigate or prosecute any alcohol or drug abuse patient.[facility] the event this information is protected by the Federal Confidentiality of Alcohol and Drug Abuse Patient Records regulations: The Federal rules restrict any use of the information to criminally investigate or prosecute any alcohol or drug abuse patient.[facility] the event this information is protected by the Federal Confidentiality of Alcohol and Drug Abuse Patient Records regulations: The Federal rules restrict any use of the information to criminally investigate or prosecute any alcohol or drug abuse patient.[facility] the event this information is protected by the Federal Confidentiality of Alcohol and Drug Abuse Patient Records regulations: The Federal rules restrict any use of the information to criminally investigate or prosecute any alcohol or drug abuse patient.[facility] the event this information is protected by the Federal Confidentiality of Alcohol and Drug Abuse Patient Records regulations: The Federal rules restrict any use of the information to criminally investigate or prosecute any alcohol or drug abuse patient.[facility] the event this information is protected by the Federal Confidentiality of Alcohol and Drug Abuse Patient Records regulations: The Federal rules restrict any use of the information to criminally investigate or prosecute any alcohol or drug abuse patient.[facility] the event this information is protected by the Federal Confidentiality of Alcohol and Drug Abuse Patient Records regulations: The Federal rules restrict any use of the information to criminally investigate or prosecute any alcohol or drug abuse patient.[facility] the event this information is protected by the Federal Confidentiality of Alcohol and Drug Abuse Patient Records regulations: The Federal rules restrict any use of the information to criminally investigate or prosecute any alcohol or drug abuse patient.[facility] the event this information is protected by the Federal Confidentiality of Alcohol and Drug Abuse Patient Records regulations: The Federal rules restrict any use of the information to criminally investigate or prosecute any alcohol or drug abuse patient.[facility] the event this information is protected by the Federal Confidentiality of Alcohol and Drug Abuse Patient Records regulations: The Federal rules restrict any use of the information to criminally investigate or prosecute any alcohol or drug abuse patient.[facility] the event this information is protected by the Federal Confidentiality of Alcohol and Drug Abuse Patient Records regulations: The Federal rules restrict any use of the information to criminally investigate or prosecute any alcohol or drug abuse patient.[facility] the event this information is protected by the Federal Confidentiality of Alcohol and Drug Abuse Patient Records regulations: The Federal rules restrict any use of the information to criminally investigate or prosecute any alcohol or drug abuse patient.[facility] Hospital[facility] the event this information is protected by the Federal Confidentiality of Alcohol and Drug Abuse Patient Records regulations: The Federal rules restrict any use of the information to criminally investigate or prosecute any alcohol or drug abuse patient.[facility] the event this information is protected by the Federal Confidentiality of Alcohol and Drug Abuse Patient Records regulations: The Federal rules restrict any use of the information to criminally investigate or prosecute any alcohol or drug abuse patient.[facility] the event this information is protected by the Federal Confidentiality of Alcohol and Drug Abuse Patient Records regulations: The Federal rules restrict any use of the information to criminally investigate or prosecute any alcohol or drug abuse patient.[facility] the event this information is protected by the Federal Confidentiality of Alcohol and Drug Abuse Patient Records regulations: The Federal rules restrict any use of the information to criminally investigate or prosecute any alcohol or drug abuse patient.[facility] the event this information is protected by the Federal Confidentiality of Alcohol and Drug Abuse Patient Records regulations: The Federal rules restrict any use of the information to criminally investigate or prosecute any alcohol or drug abuse patient.[facility] Hospital[facility] the event this information is protected by the Federal Confidentiality of Alcohol and Drug Abuse Patient Records regulations: The Federal rules restrict any use of the information to criminally investigate or prosecute any alcohol or drug abuse patient.[facility] HospitalIn the event this information is protected by the Federal Confidentiality of Alcohol and Drug Abuse Patient Records regulations: The Federal rules restrict any use of the information to criminally investigate or prosecute any alcohol or drug abuse patient.[facility] HospitalIn the event this information is protected by the Federal Confidentiality of Alcohol and Drug Abuse Patient Records regulations: The Federal rules restrict any use of the information to criminally investigate or prosecute any alcohol or drug abuse patient.[facility] the event this information is protected by the Federal Confidentiality of Alcohol and Drug Abuse Patient Records regulations: The Federal rules restrict any use of the information to criminally investigate or prosecute any alcohol or drug abuse patient.[facility] HospitalIn the event this information is protected by the Federal Confidentiality of Alcohol and Drug Abuse Patient Records regulations: The Federal rules restrict any use of the information to criminally investigate or prosecute any alcohol or drug abuse patient.[facility] HospitalIn the event this information is protected by the Federal Confidentiality of Alcohol and Drug Abuse Patient Records regulations: The Federal rules restrict any use of the information to criminally investigate or prosecute any alcohol or drug abuse patient.[facility] HospitalIn the event this information is protected by the Federal Confidentiality of Alcohol and Drug Abuse Patient Records regulations: The Federal rules restrict any use of the information to criminally investigate or prosecute any alcohol or drug abuse patient.[facility] HospitalIn the event this information is protected by the Federal Confidentiality of Alcohol and Drug Abuse Patient Records regulations: The Federal rules restrict any use of the information to criminally investigate or prosecute any alcohol or drug abuse patient.[facility] HospitalIn the event this information is protected by the Federal Confidentiality of Alcohol and Drug Abuse Patient Records regulations: The Federal rules restrict any use of the information to criminally investigate or prosecute any alcohol or drug abuse patient.[facility] HospitalIn the event this information is protected by the Federal Confidentiality of Alcohol and Drug Abuse Patient Records regulations: The Federal rules restrict any use of the information to criminally investigate or prosecute any alcohol or drug abuse patient.[facility] HospitalIn the event this information is protected by the Federal Confidentiality of Alcohol and Drug Abuse Patient Records regulations: The Federal rules restrict any use of the information to criminally investigate or prosecute any alcohol or drug abuse patient.[facility] HospitalIn the event this information is protected by the Federal Confidentiality of Alcohol and Drug Abuse Patient Records regulations: The Federal rules restrict any use of the information to criminally investigate or prosecute any alcohol or drug abuse patient.[facility] HospitalIn the event this information is protected by the Federal Confidentiality of Alcohol and Drug Abuse Patient Records regulations: The Federal rules restrict any use of the information to criminally investigate or prosecute any alcohol or drug abuse patient.[facility] HospitalIn the event this information is protected by the Federal Confidentiality of Alcohol and Drug Abuse Patient Records regulations: The Federal rules restrict any use of the information to criminally investigate or prosecute any alcohol or drug abuse patient.[facility] HospitalIn the event this information is protected by the Federal Confidentiality of Alcohol and Drug Abuse Patient Records regulations: The Federal rules restrict any use of the information to criminally investigate or prosecute any alcohol or drug abuse patient.[facility] HospitalIn the event this information is protected by the Federal Confidentiality of Alcohol and Drug Abuse Patient Records regulations: The Federal rules restrict any use of the information to criminally investigate or prosecute any alcohol or drug abuse patient.[facility] HospitalIn the event this information is protected by the Federal Confidentiality of Alcohol and Drug Abuse Patient Records regulations: The Federal rules restrict any use of the information to criminally investigate or prosecute any alcohol or drug abuse patient.[facility] HospitalIn the event this information is protected by the Federal Confidentiality of Alcohol and Drug Abuse Patient Records regulations: The Federal rules restrict any use of the information to criminally investigate or prosecute any alcohol or drug abuse patient.[facility] HospitalIn the event this information is protected by the Federal Confidentiality of Alcohol and Drug Abuse Patient Records regulations: The Federal rules restrict any use of the information to criminally investigate or prosecute any alcohol or drug abuse patient.[facility] HospitalIn the event this information is protected by the Federal Confidentiality of Alcohol and Drug Abuse Patient Records regulations: The Federal rules restrict any use of the information to criminally investigate or prosecute any alcohol or drug abuse patient.[facility] HospitalIn the event this information is protected by the Federal Confidentiality of Alcohol and Drug Abuse Patient Records regulations: The Federal rules restrict any use of the information to criminally investigate or prosecute any alcohol or drug abuse patient.[facility] HospitalIn the event this information is protected by the Federal Confidentiality of Alcohol and Drug Abuse Patient Records regulations: The Federal rules restrict any use of the information to criminally investigate or prosecute any alcohol or drug abuse patient.[facility] HospitalIn the event this information is protected by the Federal Confidentiality of Alcohol and Drug Abuse Patient Records regulations: The Federal rules restrict any use of the information to criminally investigate or prosecute any alcohol or drug abuse patient.[facility] HospitalIn the event this information is protected by the Federal Confidentiality of Alcohol and Drug Abuse Patient Records regulations: The Federal rules restrict any use of the information to criminally investigate or prosecute any alcohol or drug abuse patient.[facility] HospitalIn the event this information is protected by the Federal Confidentiality of Alcohol and Drug Abuse Patient Records regulations: The Federal rules restrict any use of the information to criminally investigate or prosecute any alcohol or drug abuse patient.[facility] HospitalIn the event this information is protected by the Federal Confidentiality of Alcohol and Drug Abuse Patient Records regulations: The Federal rules restrict any use of the information to criminally investigate or prosecute any alcohol or drug abuse patient.[facility] HospitalIn the event this information is protected by the Federal Confidentiality of Alcohol and Drug Abuse Patient Records regulations: The Federal rules restrict any use of the information to criminally investigate or prosecute any alcohol or drug abuse patient.[facility] HospitalIn the event this information is protected by the Federal Confidentiality of Alcohol and Drug Abuse Patient Records regulations: The Federal rules restrict any use of the information to criminally investigate or prosecute any alcohol or drug abuse patient.[facility] HospitalIn the event this information is protected by the Federal Confidentiality of Alcohol and Drug Abuse Patient Records regulations: The Federal rules restrict any use of the information to criminally investigate or prosecute any alcohol or drug abuse patient.[facility] HospitalIn the event this information is protected by the Federal Confidentiality of Alcohol and Drug Abuse Patient Records regulations: The Federal rules restrict any use of the information to criminally investigate or prosecute any alcohol or drug abuse patient.[facility] HospitalIn the event this information is protected by the Federal Confidentiality of Alcohol and Drug Abuse Patient Records regulations: The Federal rules restrict any use of the information to criminally investigate or prosecute any alcohol or drug abuse patient.[facility] HospitalIn the event this information is protected by the Federal Confidentiality of Alcohol and Drug Abuse Patient Records regulations: The Federal rules restrict any use of the information to criminally investigate or prosecute any alcohol or drug abuse patient.[facility] HospitalIn the event this information is protected by the Federal Confidentiality of Alcohol and Drug Abuse Patient Records regulations: The Federal rules restrict any use of the information to criminally investigate or prosecute any alcohol or drug abuse patient.[facility] HospitalIn the event this information is protected by the Federal Confidentiality of Alcohol and Drug Abuse Patient Records regulations: The Federal rules restrict any use of the information to criminally investigate or prosecute any alcohol or drug abuse patient.[facility] HospitalIn the event this information is protected by the Federal Confidentiality of Alcohol and Drug Abuse Patient Records regulations: The Federal rules restrict any use of the information to criminally investigate or prosecute any alcohol or drug abuse patient.[facility] HospitalIn the event this information is protected by the Federal Confidentiality of Alcohol and Drug Abuse Patient Records regulations: The Federal rules restrict any use of the information to criminally investigate or prosecute any alcohol or drug abuse patient.[facility] HospitalIn the event this information is protected by the Federal Confidentiality of Alcohol and Drug Abuse Patient Records regulations: The Federal rules restrict any use of the information to criminally investigate or prosecute any alcohol or drug abuse patient.[facility] HospitalIn the event this information is protected by the Federal Confidentiality of Alcohol and Drug Abuse Patient Records regulations: The Federal rules restrict any use of the information to criminally investigate or prosecute any alcohol or drug abuse patient.[facility] HospitalIn the event this information is protected by the Federal Confidentiality of Alcohol and Drug Abuse Patient Records regulations: The Federal rules restrict any use of the information to criminally investigate or prosecute any alcohol or drug abuse patient.[facility] HospitalIn the event this information is protected by the Federal Confidentiality of Alcohol and Drug Abuse Patient Records regulations: The Federal rules restrict any use of the information to criminally investigate or prosecute any alcohol or drug abuse patient.[facility] HospitalIn the event this information is protected by the Federal Confidentiality of Alcohol and Drug Abuse Patient Records regulations: The Federal rules restrict any use of the information to criminally investigate or prosecute any alcohol or drug abuse patient.[facility] HospitalIn the event this information is protected by the Federal Confidentiality of Alcohol and Drug Abuse Patient Records regulations: The Federal rules restrict any use of the information to criminally investigate or prosecute any alcohol or drug abuse patient.[facility] HospitalIn the event this information is protected by the Federal Confidentiality of Alcohol and Drug Abuse Patient Records regulations: The Federal rules restrict any use of the information to criminally investigate or prosecute any alcohol or drug abuse patient.[facility] HospitalIn the event this information is protected by the Federal Confidentiality of Alcohol and Drug Abuse Patient Records regulations: The Federal rules restrict any use of the information to criminally investigate or prosecute any alcohol or drug abuse patient.[facility] HospitalIn the event this information is protected by the Federal Confidentiality of Alcohol and Drug Abuse Patient Records regulations: The Federal rules restrict any use of the information to criminally investigate or prosecute any alcohol or drug abuse patient.[facility] HospitalIn the event this information is protected by the Federal Confidentiality of Alcohol and Drug Abuse Patient Records regulations: The Federal rules restrict any use of the information to criminally investigate or prosecute any alcohol or drug abuse patient.[facility] HospitalIn the event this information is protected by the Federal Confidentiality of Alcohol and Drug Abuse Patient Records regulations: The Federal rules restrict any use of the information to criminally investigate or prosecute any alcohol or drug abuse patient.[facility] HospitalIn the event this information is protected by the Federal Confidentiality of Alcohol and Drug Abuse Patient Records regulations: The Federal rules restrict any use of the information to criminally investigate or prosecute any alcohol or drug abuse patient.[facility] HospitalIn the event this information is protected by the Federal Confidentiality of Alcohol and Drug Abuse Patient Records regulations: The Federal rules restrict any use of the information to criminally investigate or prosecute any alcohol or drug abuse patient.[facility] HospitalIn the event this information is protected by the Federal Confidentiality of Alcohol and Drug Abuse Patient Records regulations: The Federal rules restrict any use of the information to criminally investigate or prosecute any alcohol or drug abuse patient.[facility] HospitalIn the event this information is protected by the Federal Confidentiality of Alcohol and Drug Abuse Patient Records regulations: The Federal rules restrict any use of the information to criminally investigate or prosecute any alcohol or drug abuse patient.[facility] HospitalIn the event this information is protected by the Federal Confidentiality of Alcohol and Drug Abuse Patient Records regulations: The Federal rules restrict any use of the information to criminally investigate or prosecute any alcohol or drug abuse patient.[facility] Reason for Visit (unrecogniz ed section and content) Reason Comments Established Patient Specialty Diagnoses / Procedures Referred By Zack alexander Referred To Contact Diagnoses Malignant neoplasm of prostate (HCC) Bone metastases Procedures LEUPROLIDE ACETATE SUSPNSION Bree Cornejo APRN.DATA SUPPORT ANALYST [address] [place] [address] [facility] [address] [place] [address] Referral ID Status Reason Start Date Expiration Date V isits Requested Visits Authorized [id number] Authorized 04/27/2022 06/21/2024 99 99 Reason Comments [...] Treatment Specialty Diagnoses / Procedures Referred By Zack t Referred To Contact Diagnoses Malignant neoplasm of prostate (HCC) Bone metastases (HCC) Procedures INJECTION, ZOLEDRONIC ACID, 1 MG Aparna Becerra MD [address] [place] [address] [facility] [address] [place] [address] Referral ID Status Reason Start Date Expiration Date V isits Requested Visits Authorized [id number] Authorized 10/08/2021 03/19/2022 99 99 Reason Comments [...] Expiration Date V isits Requested Visits Authorized [id number] Authorized 10/08/2021 03/19/2023 99 99 Reason Comments Results Reason Onset Date Comments SPP Oral Oncology/hematology - Medication Refill 04/28/2022 Erleada 60mg Reason Comments Imm/Inj Specialty Diagnoses / Procedures [facility] To Contact Diagnoses Malignant neoplasm of prostate (HCC) Bone metastases (HCC) Procedures LEUPROLIDE ACETATE SUSPNSION Bree Cornejo APRN.DATA SUPPORT ANALYST [address] [place] [address] [facility] [address] [place] [address] Referral ID Status Reason Start Date Expiration Date V isits Requested Visits Authorized [id number] Authorized 04/27/2022 10/26/2022 99 99 Specialty Diagnoses / Procedures Referred By [facility] Referred To Contact Diagnoses Malignant neoplasm of prostate (HCC) Bone metastases (HCC) Procedures INJECTION, ZOLEDRONIC ACID, 1 MG Bree Cornejo, SUSHIL.DATA SUPPORT ANALYST [address] [place] [address] [facility] [address] [place] [address] Referral ID Status Reason Start Date Expiration Date V isits Requested Visits Authorized [id number] Authorized 04/27/2022 03/19/2023 99 99 Reason Onset Date Comments SPP Oral Oncology/hematology - Medication Refill 06/13/2022 Erleada Reason Comments Patient Update Symptoms Reason Comments Patient Update Weakness Reason Comments Care Coordination patient update-weakn ess Reason Comments Orders Specialty Diagnoses / Procedures Referred By [facility] Referred To Contact Diagnoses Malignant neoplasm of prostate (HCC) Bone metastases Procedures INJECTION, ZOLEDRONIC ACID, 1 MG Bree Cornejo, MARKETING CONSULTANT.DATA SUPPORT ANALYST [address] [place] [address] [facility] [address] [place] [address] Referral ID Status Reason Start Date Expiration Date V isits Requested Visits Authorized [id number] Authorized 04/27/2022 04/25/2023 99 99 Reason Comments Appointment Reason Onset Date Comments Refill Request 01/30/2023 Reason Comments medication questions Referral ID Status Reason Start Date Expiration Date V isits Requested Visits Authorized [id number] Authorized 04/27/2022 03/19/2024 99 99 Reason Comments Prostate Cancer Follow Up Urinary Urgency Referral ID Status Reason Start Date Expiration Date V isits Requested Visits Authorized [id number] Authorized 04/27/2022 03/19/2025 99 99 Reason Comments 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 New Patient C/o loss of balance, weakness, falling, has done PT, pt states it's more of his knees that are weak Specialty Diagnoses / Procedures [facility] Referred To Contact Neurology Diagnoses Loss of balance Procedures CONSULT TO NEUROLOGY OFFICE/OUTPATIENT NEW HIGH MDM [address] [place] [address] [place] [address] Phone: tel: fax: Referral ID Status Reason Start Date Expiration Date V isits Requested Visits Authorized [id number] Closed PCP Requested Referral 03/05/2024 03/05/2025 1 1 Reason Comments Chemotherapy Treatment Specialty Diagnoses / Procedures Referred By Contac t Referred To Contact Diagnoses Malignant neoplasm of prostate (HCC) Bone metastases Procedures INJECTION, ZOLEDRONIC ACID, 1 MG Bree Cornejo APRN.DATA SUPPORT ANALYST [address] [place] [address] Phone: tel: fax: Hematology/Oncology [address] [place] [address] Phone: tel: fax: Reason Comments New Patient Recurrent falls Referral ID Status Reason Start Date Expiration Date Visits Re quested Visits Authorized [id number] Closed 04/27/2022 03/19/2025 99 99 Care Teams [...] End: June 27, 2024 Damaris SALAZAR, PA Referring Provider Active Start: June 27, 2024 End: June 27, 2024 Inspector Balance Wheel Motion Relationship Specialty Start Date End Date Cem Arzate PCP - General 03/21/02 Inspector Balance Wheel Motion Relationship Specialty Start Date End Date Cem Arzate PCP - General 03/21/02 Inspector Balance Wheel Motion Relationship Specialty Start Date End Date Cem Arzate PCP - General 03/21/02 Inspector Balance Wheel Motion Relationship Specialty Start Date End Date Cem Arzate PCP - General 03/21/02 Inspector Balance Wheel Motion Relationship Specialty Start Date End Date Cem Arzate PCP - General 03/21/02 Inspector Balance Wheel Motion Relationship Specialty Start Date End Date Cem Arzate PCP - General 03/21/02 Irene Florentino RN [address] [place] [address] Specialty Sales Advisory Manager Hematology/Oncology 10/13/21 Inspector Balance Wheel Motion Relationship Specialty Start Date End Date Cem Arzate David PCP - General 03/21/02 Irene Florentino RN [address] [place] [address] Specialty Sales Advisory Manager Hematology/Oncology 10/13/21 Inspector Balance Wheel Motion Relationship Specialty Start Date End Date Cem Arzate David PCP - General 03/21/02 Irene Florentino RN [address] [place] [address] Specialty Sales Advisory Manager Hematology/Oncology 10/13/21 Inspector Balance Wheel Motion Relationship Specialty Start Date End Date Cem Arzate PCP - General 03/21/02 Irene Florentino RN [address] [place] [address] Specialty Sales Advisory Manager Hematology/Oncology 10/13/21 Inspector Balance Wheel Motion Relationship Specialty Start Date End Date Cem Arzate David PCP - General 03/21/02 Irene Florentino RN [address] [place] [address] Specialty Sales Advisory Manager Hematology/Oncology 10/13/21 Inspector Balance Wheel Motion Relationship Specialty Start Date End Date Cem Arzate David PCP - General 03/21/02 Irene Florentino, RN [address] [place] [address] Specialty Sales Advisory Manager Hematology/Oncology 10/13/21 Inspector Balance Wheel Motion Relationship Specialty Start Date End Date Cem Arzate PCP - General 03/21/02 Irene Florentino RN [address] [place] [address] Specialty Sales Advisory Manager Hematology/Oncology 10/13/21 Inspector Balance Wheel Motion Relationship Specialty Start Date End Date Cem Arzate PCP - General 03/21/02 Irene Florentino, MELINDA [address] [place] [address] Specialty Sales Advisory Manager Hematology/Oncology 10/13/21 Inspector Balance Wheel Motion Relationship Specialty Start Date End Date Cem Arzate PCP - General 03/21/02 Irene Florentino RN [address] [place] [address] Specialty Sales Advisory Manager Hematology/Oncology 10/13/21 Inspector Balance Wheel Motion Relationship Specialty Start Date End Date Cem Arzate PCP - General 03/21/02 Irene Florentino, MELINDA [address] [place] [address] Specialty Sales Advisory Manager Hematology/Oncology 10/13/21 Inspector Balance Wheel Motion Relationship Specialty Start Date End Date Cem Arzate PCP - General 03/21/02 Irene Florentino, RN [address] [place] [address] Specialty Sales Advisory Manager Hematology/Oncology 10/13/21 Inspector Balance Wheel Motion Relationship Specialty Start Date End Date Cem Arzate PCP - General 03/21/02 Irene Florentino, RN [address] [place] [address] Specialty Sales Advisory Manager Hematology/Oncology 10/13/21 Team Status: Active Member Role Status Dates Dr. Otto Subramanian MD Family Provider Active Dr. Otto Subramanian MD Primary Care Provider Active Team Status: Inactive Member Role Status Dates Dr. Otto Subramanian MD Primary Care Provide r, Attending Provider, Referring Provider Active Inspector Balance Wheel Motion Relationship Specialty Start Date End Date Cem Arzate PCP - General 03/21/02 Irene Florentino, RN [address] [place] [address] Specialty Sales Advisory Manager Hematology/Oncology 10/13/21 Inspector Balance Wheel Motion Relationship Specialty Start Date End Date Cem Arzate PCP - General 03/21/02 Irene Florentino RN [address] [place] [address] Specialty Sales Advisory Manager Hematology/Oncology 10/13/21 Inspector Balance Wheel Motion Relationship Specialty Start Date End Date Cem Arzate PCP - General 03/21/02 Irene Florentino RN [address] [place] [address] Specialty Sales Advisory Manager Hematology/Oncology 10/13/21 Inspector Balance Wheel Motion Relationship Specialty Start Date End Date Cem Arzate PCP - General 03/21/02 Irene Florentino, MELINDA [address] [place] [address] Specialty Sales Advisory Manager Hematology/Oncology 10/13/21 Team Status: Inactive Member Role Status Dates Dr. Otto Subramanian MD Primary Care Provider Active Dr. Quincy Staton MD Emergency Provider Active Inspector Balance Wheel Motion Relationship Specialty Start Date End Date Cem Arzate PCP - General 03/21/02 Irene Florentino, RN [address] [place] [address] Specialty Sales Advisory Manager Hematology/Oncology 10/13/21 Inspector Balance Wheel Motion Relationship Specialty Start Date End Date Cem Arzate PCP - General 03/21/02 Irene Florentino RN [address] [place] [address] Specialty Sales Advisory Manager Hematology/Oncology 10/13/21 Inspector Balance Wheel Motion Relationship Specialty Start Date End Date Cem Arzate PCP - General 03/21/02 Irene Florentino, RN [address] [place] [address] Specialty Sales Advisory Manager Hematology/Oncology 10/13/21 Team Status: Inactive Member Role Status Dates Dr. Otto Subramanian MD Primary Care Provider Active Dr. Quincy Staton MD Attending Provider, Emergency Pro vider Active Team Status: Inactive Member Role Status Dates Dr. Otto Subramanian MD Primary Care Provider, Attending Norm neumann Active Damaris Lee PA, PA Other Provider Active Randy Vann BOARD CERTIFIED MUSIC THERAPIST, BOARD CERTIFIED MUSIC THERAPIST-C Other Provider Active Dr. Denilson Fernandes , Other Provider Active Inspector Balance Wheel Motion Relationship Specialty Start Date End Date Cme Arzate PCP - General 03/21/02 Irene Florentino, RN [address] [place] [address] Specialty Sales Advisory Manager Hematology/Oncology 10/13/21 Inspector Balance Wheel Motion Relationship Specialty Start Date End Date Cem Arzate PCP - General 03/21/02 Irene Florentino RN [address] [place] [address] Specialty Sales Advisory Manager Hematology/Oncology 10/13/21 Team Status: Inactive Member Role Status Dates Dr. Otto Subramanian MD Primary Care Provider Active Dr. Marcos Ferraro DO Emergency Provider Active Team Status: Inactive Member Role Status Dates Dr. Otto Subramanian MD Primary Care Provider Active Dr. Alex Zuñiga DO Emergency Provider Active Inspector Balance Wheel Motion Relationship Specialty Start Date End Date Cem Arzate PCP - General 03/21/02 Irene Florentino, RN [address] [place] [address] Specialty Sales Advisory Manager Hematology/Oncology 10/13/21 Inspector Balance Wheel Motion Relationship Specialty Start Date End Date Cem Arzate PCP - General 03/21/02 Irene Florentino RN [address] [place] [address] Specialty Sales Advisory Manager Hematology/Oncology 10/13/21 Inspector Balance Wheel Motion Relationship Specialty Start Date End Date Huey Cem Hernandez PCP - General 03/21/02 Irene Florentino RN [address] [place] [address] Specialty Sales Advisory Manager Hematology/Oncology 10/13/21 Everett Aldrich MD [address] [place] [address] Hematology/Oncology 10/24/22 Inspector Balance Wheel Motion Relationship Specialty Start Date End Date Cem Arzate PCP - General 03/21/02 Irene Florentino RN [address] [place] [address] Specialty Sales Advisory Manager Hematology/Oncology 10/13/21 Evreett Aldrich MD [address] [place] [address] Hematology/Oncology 10/24/22 Inspector Balance Wheel Motion Relationship Specialty Start Date End Date Otto Subramanian MD [address] [place] [address] PCP - General Family Medicine 01/12/23 Irene Florentino RN [address] [place] [address] Specialty Sales Advisory Manager Hematology/Oncology 10/13/21 Everett Aldrich MD [address] [place] [address] Hematology/Oncology 10/24/22 Inspector Balance Wheel Motion Relationship Specialty Start Date End Date Otto Subramanian MD [address] [place] [address] PCP - General Family Medicine 01/12/23 Irene Florentino, RN [address] [place] [address] Specialty Sales Advisory Manager Hematology/Oncology 10/13/21 Everett Aldrich MD [address] [place] [address] Hematology/Oncology 10/24/22 Inspector Balance Wheel Motion Relationship Specialty Start Date End Date Otto Subramanian MD [address] [place] [address] PCP - General Family Medicine 01/12/23 Irene Florentino, MELINDA [address] [place] [address] Specialty Sales Advisory Manager Hematology/Oncology 10/13/21 Everett Aldrich MD [address] [place] [address] Hematology/Oncology 10/24/22 Team Status: Inactive Member Role Status Dates Dr. Otto Subramanian MD Primary Care Provider, Referring P rovider Active Riri Peralta BOARD CERTIFIED MUSIC THERAPIST, BOARD CERTIFIED MUSIC THERAPIST-C Attending Provider Active Team Status: Active Member Role Status Dates Dr. Otto Subramanian MD Primary Care Provider Active Dr. Osman Bui MD Attending Provider Active Team Status: Active Member Role Status Dates Dr. Otto Subramanian MD Primary Care Provider Active Riri Peralta BOARD CERTIFIED MUSIC THERAPIST, BOARD CERTIFIED MUSIC THERAPIST-C Attending Provider Active Team Status: Inactive Member Role Status Dates Dr. Otto Subramanian MD Primary Care Provider Active Riri Peralta BOARD CERTIFIED MUSIC THERAPIST, BOARD CERTIFIED MUSIC THERAPIST-C Attending Provider, Referring P rovider Active Team Status: Active Member Role Status Dates Dr. Otto Subramanian MD Primary Care Provider Active Dr. Marquise Hart MD Attending Provider Active Riri Peralta BOARD CERTIFIED MUSIC THERAPIST, BOARD CERTIFIED MUSIC THERAPIST-C Referring Provider Active Inspector Balance Wheel Motion Relationship Specialty Start Date End Date Otto Subramanian MD [address] [place] [address] PCP - General Family Medicine 01/12/23 Irene Florentino RN [address] [place] [address] Specialty Sales Advisory Manager Hematology/Oncology 10/13/21 Everett Aldrich MD [address] [place] [address] Hematology/Oncology 10/24/22 Inspector Balance Wheel Motion Relationship Specialty Start Date End Date Otto Subramanian MD [address] [place] [address] PCP - General Family Medicine 01/12/23 Irene Florentino RN [address] [place] [address] Specialty Sales Advisory Manager Hematology/Oncology 10/13/21 Everett Aldrich MD [address] [place] [address] Hematology/Oncology 10/24/22 Inspector Balance Wheel Motion Relationship Specialty Start Date End Date Otto Subramanian MD [address] [place] [address] PCP - General Family Medicine 01/12/23 Irene Florentino RN [address] [place] [address] Specialty Sales Advisory Manager Hematology/Oncology 10/13/21 Everett Aldrich MD [address] [place] [address] Hematology/Oncology 10/24/22 Inspector Balance Wheel Motion Relationship Specialty Start Date End Date Otto Subramanian MD [address] [place] [address] PCP - General Family Medicine 01/12/23 Irene Florentino, RN [address] [place] [address] Specialty Sales Advisory Manager Hematology/Oncology 10/13/21 Everett Aldrich MD [address] [place] [address] Hematology/Oncology 10/24/22 Inspector Balance Wheel Motion Relationship Specialty Start Date End Date Otto Subramanian MD [address] [place] [address] PCP - General Family Medicine 01/12/23 Irene Florentino, MELINDA [address] [place] [address] Specialty Sales Advisory Manager Hematology/Oncology 10/13/21 Everett Aldrich MD [address] [place] [address] Hematology/Oncology 10/24/22 Inspector Balance Wheel Motion Relationship Specialty Start Date End Date Otto Subramanian MD [address] [place] [address] PCP - General Family Medicine 01/12/23 Irene Florentino, RN [address] [place] [address] Specialty Sales Advisory Manager Hematology/Oncology 10/13/21 Everett Aldrich MD [address] [place] [address] Hematology/Oncology 10/24/22 Inspector Balance Wheel Motion Relationship Specialty Start Date End Date Otto Subramanian MD [address] [place] [address] PCP - General Family Medicine 01/12/23 Irene Florentino RN [address] [place] [address] Specialty Sales Advisory Manager Hematology/Oncology 10/13/21 Everett Aldrich MD [address] [place] [address] Hematology/Oncology 10/24/22 Inspector Balance Wheel Motion Relationship Specialty Start Date End Date Otto Subramanian MD [address] [place] [address] PCP - General Family Medicine 01/12/23 Irene Florentino RN [address] [place] [address] Specialty Sales Advisory Manager Hematology/Oncology 10/13/21 Everett Aldrich MD [address] [place] [address] Hematology/Oncology 10/24/22 Inspector Balance Wheel Motion Relationship Specialty Start Date End Date Otto Subramanian MD [address] [place] [address] PCP - General Family Medicine 01/12/23 Irene Florentino, MELINDA [address] [place] [address] Specialty Sales Advisory Manager Hematology/Oncology 10/13/21 Everett Aldrich MD [address] [place] [address] Hematology/Oncology 10/24/22 Inspector Balance Wheel Motion Relationship Specialty Start Date End Date Otto Subramanian MD [address] [place] [address] PCP - General Family Medicine 01/12/23 Irene Florentino RN [address] [place] [address] Specialty Sales Advisory Manager Hematology/Oncology 10/13/21 Everett Aldrich MD [address] [place] [address] Hematology/Oncology 10/24/22 Inspector Balance Wheel Motion Relationship Specialty Start Date End Date Otto Subramanian MD [address] [place] [address] PCP - General Family Medicine 01/12/23 Irene Florentino RN [address] [place] [address] Specialty Sales Advisory Manager Hematology/Oncology 10/13/21 Everett Aldrich MD [address] [place] [address] Hematology/Oncology 10/24/22 Inspector Balance Wheel Motion Relationship Specialty Start Date End Date Otto Subramanian MD [address] [place] [address] PCP - General Family Medicine 01/12/23 Irene Florentino, RN [address] [place] [address] Specialty Sales Advisory Manager Hematology/Oncology 10/13/21 Everett Aldrich MD [address] [place] [address] Hematology/Oncology 10/24/22 Inspector Balance Wheel Motion Relationship Specialty Start Date End Date Otto Subramanian MD [address] [place] [address] PCP - General Family Medicine 01/12/23 Irene Florentino, MELINDA [address] [place] [address] Specialty Sales Advisory Manager Hematology/Oncology 10/13/21 Everett Aldrich MD [address] [place] [address] Hematology/Oncology 10/24/22 Team Status: Active Member Role Status Dates Dr. Otto Subramanian MD Primary Care Provider Active Start: May 23, 2024 Dr. Otto Subramanian MD Attending Provider Active St art: May 23, 2024 Inspector Balance Wheel Motion Relationship Specialty Start Date End Date Otto Subramanian MD [address] [place] [address] PCP - General Family Medicine 01/12/23 Irene Florentino, RN [address] [place] [address] Specialty Sales Advisory Manager Hematology/Oncology 10/13/21 Everett Aldrich MD [address] [place] [address] Hematology/Oncology 10/24/22 Team Status: Active Member Role/Relationship Status Dates Dr. Otto Subramanian MD Primary Care Provider Active Team Status: Inactive Member Role/Relationship Status Dates Dr. Otto Subramanian MD Primary Care Provider Active Start: May 23, 2024 End: May 23, 2024 Dr. Otto Subramanian MD Attending Provider Active St art: May 23, 2024 End: May 23, 2024 Team Status: Inactive Member Role/Relationship Status Dates Dr. Otto Subramanian MD Primary Care Provider Active Start: June 27, 2024 End: June 27, 2024 Dr. Otto Subramanian MD Referring Provider Active St art: June 27, 2024 End: June 27, 2024 Damaris SALAZAR, PA Attending Provider Active Start: June 27, 2024 End: June 27, 2024 Team Status: Inactive Member Role/Relationship Status Dates Dr. Otto Subramanian MD Primary Care Provider Active Start: June 27, 2024 End: June 27, 2024 Damaris Lee PA, PA Attending Provider Active Start: June 27, 2024 End: June 27, 2024 Damaris Lee PA, PA Referring Provider Active Start: June 27, 2024 End: June 27, 2024 Team Status: Inactive Member Role/Relationship Status Dates Dr. Otto Subramanian MD Primary Care Provider Active Start: September 12, 2024 End: September 12, 2024 Damaris Lee PA, PA Attending Provider Active Start: September 12, 2024 End: September 12, 2024 Damaris Lee PA, PA Referring Provider Active Start: September 12, 2024 End: September 12, 2024 Team Status: Active Member Role/Relationship Status Dates Dr. Otto Subramanian MD Primary Care Provider Active Start: September 12, 2024 Damaris Lee PA, PA Referring Provider Active Start: September 12, 2024 Damaris Lee PA, PA Other Provider Active Start: September 12, 2024 Dr. Osman Bui MD Attending Provider Active S tart: September 12, 2024 Team Status: Active Member Role/Relationship Status Dates Dr. Otto Subramanian MD Primary Care Provider Active Start: September 16, 2024 Dr. Osman Bui MD Attending Provider Active S tart: September 16, 2024 Team Status: Active Member Role/Relationship Status Dates Dr. Otto Subramanian MD Primary Care Provider Active Start: September 16, 2024 Damaris Lee PA, PA Attending Provider Active Start: September 16, 2024 Damaris Lee PA, PA Referring Provider Active Start: September 16, 2024 Team Status: Inactive Member Role/Relationship Status Dates Dr. Otto Subramanian MD Primary Care Provider Active Start: September 16, 2024 End: September 16, 2024 Damaris Lee PA, PA Attending Provider Active Start: September 16, 2024 End: September 16, 2024 Damaris Lee PA, PA Referring Provider Active Start: September 16, 2024 End: September 16, 2024 Team Status: Inactive Member Role/Relationship Status Dates Dr. Otto Subramanian MD Primary Care Provider Active Start: June 27, 2024 End: June 27, 2024 Dr. Otto Subramanian MD Referring Provider Active St art: June 27, 2024 End: June 27, 2024 Damaris Lee PA, PA Attending Provider Active Start: June 27, 2024 End: June 27, 2024 Team Status: Inactive Member Role/Relationship Status Dates Dr. Otto Subramanian MD Primary Care Provider Active Start: June 27, 2024 End: June 27, 2024 Damaris Lee PA, PA Attending Provider Active Start: June 27, 2024 End: June 27, 2024 Damaris Lee PA, PA Referring Provider Active Start: June 27, 2024 End: June 27, 2024 Team Status: Inactive Member Role/Relationship Status Dates Dr. Otto Subramanian MD Primary Care Provider Active Start: September 12, 2024 End: September 12, 2024 Damaris Lee PA, PA Attending Provider Active Start: September 12, 2024 End: September 12, 2024 Damaris Lee PA, PA Referring Provider Active Start: September 12, 2024 End: September 12, 2024 Team Status: Active Member Role/Relationship Status Dates Dr. Otto Subramanian MD Primary Care Provider Active Start: September 12, 2024 Damaris SALAZAR PA Referring Provider Active Start: September 12, 2024 Damaris SALAZAR PA Other Provider Active Start: September 12, 2024 Dr. Osman Bui MD Attending Provider Active S tart: September 12, 2024 Team Status: Active Member Role/Relationship Status Dates Dr. Otto Subramanian MD Primary Care Provider Active Start: September 16, 2024 Dr. Osman Bui MD Attending Provider Active S tart: September 16, 2024 Team Status: Inactive Member Role/Relationship Status Dates Dr. Otto Subramanian MD Primary Care Provider Active Start: September 16, 2024 End: September 16, 2024 MARIE Martinez Attending Provider Active Start: September 16, 2024 End: September 16, 2024 MARIE Martinez Referring Provider Active Start: September 16, 2024 End: September 16, 2024 Team Status: Inactive Member Role/Relationship Status Dates Dr. Otto Subramanian MD Primary Care Provider Active Start: September 26, 2024 End: September 26, 2024 Dr. Otto Subramanian MD Referring Provider Active St art: September 26, 2024 End: September 26, 2024 Riri Peralta BOARD CERTIFIED MUSIC THERAPIST, BOARD CERTIFIED MUSIC THERAPIST-C Attending Provider Active Start: September 26, 2024 End: September 26, 2024 Team Status: Inactive Member Role/Relationship Status Dates Dr. Otto Subramanian MD Primary Care Provider Active Start: September 29, 2024 End: September 29, 2024 Dr. Otto Subramanian MD Referring Provider Active St art: September 29, 2024 End: September 29, 2024 Damaris SALAZAR PA Attending Provider Active Start: September 29, 2024 End: September 29, 2024 Inactive Administered Medications - up to 3 [...] section and content) DATE CREATED AUTHOR 08/22/2024 [facility] DATE CREATED AUTHOR AUTHOR'S ORGANIZ ATION 10/02/2024 [facility] FOR RECORDS PERTAINING TO PATIENTS WHO ARE [...] BE BASED ON THE PRIMARY CLINICAL RECORDS. [employer] provides no warranty or guarantee of the accuracy or completeness of information in this document.
--- NOTE | 2024-10-28 09:47 | CL.D_ITS ---
Patient Name: ALEX LALA Study Date: 10/07/2024 Performing: Osman Bui MD Ht: 68 inches 172.72 cm : 1935 Wt: 180.01 lbs 81.65 kg Age: 89 Gender: male BSA: 1.95 PROCEDURE(S) PERFORMED [id number] CLINICAL PROFILE AND INDICATIONS Indications: Valvular Disease Heart Failure: None Stress/Imaging Stress/Image Study Performed: No CAD Presentations: Symptom unlikely to be ischemic. 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 RECOMMENDATIONS Will refer for consideration of PCI of the right coronary artery and TAVR. DESCRIPTION OF PROCEDURE The patient arrived to the procedure lab. The risks and benefits of the procedure as well as a full description of our services here and current unavailability of surgical backup were fully explained to the patient and/or their significant other prior to the catheterization. The Timeout was completed, verifying the correct patient and procedure. The patient's procedural site was prepped and draped in the usual fashion. Local anesthetic was given subcutaneously to right radial region with Lidocaine 2%. Using a modified Seldinger technique, arterial access was obtained via the right radial artery, a 6Fr sheath was inserted. Left Coronary Artery selective angiography was performed in multiple views using a 5 Fr. 4.0 Faber catheter. Right Coronary Artery selective angiography was then performed in multiple views using a 5 Fr. 4.0 Faber catheter.The arterial sheath was pulled and a TR Band was applied for hemostasis 17 cc air CORONARY ANGIOGRAPHY DOMINANCE: Right Dominant LEFT HEART ASSESSMENT Left Ventricular Ejection Fraction: by Echo 65 % Normal LV wall motion Normal Left Ventricular systolic function LEFT MAIN: Angiographically normal LEFT ANTERIOR DESCENDING ARTERY: Mild luminal irregularities CIRCUMFLEX ARTERY: Small nondominant vessel with proximal 80% stenosis and moderate diffuse disease RAMUS: Previously stented vessel which appears to be patent with no significant stenosis RIGHT CORONARY ARTERY: Dominant right coronary artery with proximal 60% stenosis and mid 80% stenosis. The vessel then continues and bifurcates into left anterior descending artery and left circumflex artery. VALVE FINDINGS: Aortic Valve Calcification - severe Aortic Valve Stenosis - severe COMPLICATIONS No Complications PROCEDURE MEDICATIONS Fentanyl 25 mcg IV Versed 0.5 mg IV Versed 0.5 mg IV Fentanyl 25 mcg IV Fentanyl 50 mcg IV Oxygen: 2 L/min via nasal cannula Heparin given IA 10/07/2024 08:06:39 Verapamil 2.5mg,3000 units of Heparin given IA 10/07/2024 08:06:39 SUMMARY OF HEMODYNAMIC DATA Time AIR REST ECG 07:25:43 AO 172/67 (107) SA 08:27:23 Signed By Osman Bui MD On 10/07/2024 09:18:23 Osman Bui MD
== END 2024-10-07 11:00 | disposition home or self-care (01) ==
PROVIDERS: Nurse Practitioner Gerontology; PCP Family Medicine; Referring Provider Internal Medicine Cardiovascular Disease; Visit Provider Internal Medicine Cardiovascular Disease
DX: I35.0 Nonrheumatic aortic (valve) stenosis (principal); E78.5 Hyperlipidemia, unspecified; I65.23 Occlusion and stenosis of bilateral carotid arteries; I25.10 Atherosclerotic heart disease of native coronary artery without angina pectoris; I25.2 Old myocardial infarction; I10 Essential (primary) hypertension; R06.09 Other forms of dyspnea; Z95.5 Presence of coronary angioplasty implant and graft; Z79.82 Long term (current) use of aspirin; Z79.899 Other long term (current) drug therapy
CPT/HCPCS: 36415; 71046; 80048; 83880; 85025; 93454; 99152; 99153; Q9967; C1769; C1894

== ENCOUNTER 2024-11-04 09:49 | Day surgery (SDC) | payer MEDICARE, SELFPAY ==
--- NOTE | 2024-10-31 17:11 | PAT.ANESEVAL ---
Pre-Assessment Diagnosis/Proposed Procedure Planned Operative Procedure(s): left knee genicular radiofreq ablation superior medial, superior lateral, inferior medial under fluoroscopy Anesthesia History Anesthesia History - visual effects artist: Anesthesia History - visual effects artist Hx Hospitalization No 10/31/24 15:44 Any Problems With Anesthesia No 10/31/24 15:44 Cholinesterase deficiency No 10/31/24 15:44 You/Your Family Experience No 10/31/24 15:44 fever (hyperthermia) with Relationship Recent Exposure to Contagious Disease Does patient have nerve No 10/31/24 15:44 stimulator Patient instructed to have device shut off --Does patient have Pacemaker or ICD? When Was Last Pacemaker Check QUESTION #4 FULL TEXT: You/Your Family Experience fever (hyperthermia) with Anesthesia Last Oral Intake Last Oral intake: Last Oral Intake NPO since Meds taken in AM with sips of water? Meds patient instructed to take am of surgery PONV PONV - visual effects artist: PONV - visual effects artist Female No 10/31/24 15:44 HX of Motion Sickness No 10/31/24 15:44 HX of N/V After Surgery No 10/31/24 15:44 Non-Smoker Yes 10/31/24 15:44 Duration of Surgery greater No 10/31/24 15:44 than 60 minutes Number of Risk Factors 1 10/31/24 15:44 PONV Score Low Risk 10/31/24 15:44 Height & Weight Height & Weight: Anesthesia: Height & Weight Height 5 ft 8 in 10/07/24 07:22 Respiratory Assessment Respiratory Assessment - visual effects artist: Respiratory Tract Infection Hx - visual effects artist Hx Respiratory Tract Infection No 10/31/24 15:44 STOP Sleep Apnea STOP Sleep Apnea - visual effects artist: STOP Sleep Apnea - visual effects artist Hx Hypertension No 10/31/24 15:44 Hx Sleep Apnea Yes 10/31/24 15:44 CPAP Yes 10/31/24 15:44 BIPAP No 10/31/24 15:44 Do you snore loudly (louder than talking or can be heard Do you often feel tired/ fatigued/ sleepy during daytime? Has anyone observed you stop breathing during sleep? STOP Results Positive 10/31/24 15:44 QUESTION #5 FULL TEXT : Do you snore loudly (louder than talking or can be heard through closed doors)? Tobacco Use History Tobacco Use History - visual effects artist: Tobacco Use History - visual effects artist Tobacco Use Smoking Status Never smoker 10/31/24 15:44 Hx Tobacco Use No 10/31/24 15:44 Years Smoking Packs Smoked per Day Smoking Cessation Date was within the last 15 years Hx Smoking Cessation Date Hx Smoking Cessation Counseling Hematologic Medial History Hematologic Hx - visual effects artist: Hematologic Medical Hx - billing specialist Hx of Blood Transfusion No 10/31/24 15:44 Hx of Transfusion in last 3 No 10/31/24 15:44 Months Date of Last Transfusion (if within last 3 months) Ever experience any problems No 10/31/24 15:44 with transfusion(s)? Specify any problems Hx of Preganancy in last 3 N/A 10/31/24 15:44 Months Nurse Filling Out Transfusion [id number] 10/31/24 15:44 & Questions: Date: 10/31/24 10/31/24 15:44 Time: 15:47 10/31/24 15:44 Patient unable to answer at this time (ie. confused, unrespo /Reproduction History /Reproductive History - visual effects artist: /Reproductive Hx- visual effects artist Hx Now Gestational Age (in weeks): EDC: Hx Hx Para Hx Section SAB PFSH Medical History (Updated 10/31/24 @ 15:54 by Juma Barr) Wears hearing aid Loss of hearing Wears dentures Wears glasses History of steroid therapy Cancer High cholesterol Back pain Non-smoker CPAP (continuous positive airway pressure) dependence History of edema Gastric reflux History of stress test History of echocardiogram Cardiology follow-up encounter Bilateral carotid bruits Nonrheumatic aortic (valve) stenosis Essential hypertension SHAMAR (obstructive sleep apnea) Old myocardial infarction Diastolic dysfunction Premature atrial contractions Cardiac murmur Hyperlipidemia Hypertension Atherosclerotic heart disease of [place] coronary artery without angina pectoris Home Medications ?Medication ?Instructions ?Recorded ?Last Taken ?Type aspirin 81 mg tablet,delayed 81 mg PO QDAY 11/06/17 10/07/24 History release zoledronic acid 4 mg/100 mL in See Rx Instructions .Route .COMPLEX 06/21/22 Unknown History mannitol 5 %-water intravenous piggybck meloxicam 7.5 mg tablet 7.5 mg PO DAILY PAIN 10/15/22 Unknown History nitroglycerin 0.4 mg sublingual 0.4 mg sublingual Q5-15M PRN chest 05/23/23 Unknown Rx tablet pain #25 tabs calcium 200 mg (as 1 tab PO DAILY 01/24/24 Unknown History citrate)-vitamin D3 6.25 mcg (250 unit) tablet omega 8-mrh-kad-fish oil 300 1 cap PO DAILY 01/24/24 Unknown History mg-1,000 mg capsule (Fish Oil) metoprolol tartrate 25 mg tablet 25 mg PO BID #180 tabs 07/08/24 10/07/24 Rx hydrochlorothiazide 12.5 mg tablet 12.5 mg PO DAILY #90 tabs 08/09/24 10/07/24 Rx losartan 25 mg tablet 25 mg PO DAILY #90 tabs 08/09/24 10/07/24 Rx atorvastatin 20 mg tablet 20 mg PO Q OTHER DAY 09/26/24 Unknown History furosemide 20 mg tablet 20 mg PO QDAY 09/26/24 Unknown History dgnbmdyhfrd-opssnlnsc-rjn C-Mn 750 2 tab PO DAILY 09/26/24 Unknown History mg-600 mg-55 mg-5 mg tablet magnesium oxide 400 mg (241.3 mg 400 mg PO QDAY 09/26/24 Unknown History magnesium) tablet oxybutynin chloride 5 mg 5 mg PO QDAY 09/26/24 Unknown History tablet,extended release 24 hr oxycodone-acetaminophen 5 mg-325 1 tab PO TID PRN pain 09/26/24 Unknown History mg tablet (Percocet) diphenhydramine HCl 25 mg capsule 25 mg PO Q8H PRN sleep 10/31/24 Unknown History (Allergy (diphenhydramine)) melatonin 5 mg capsule 5 mg PO QHS PRN sleep 10/31/24 Unknown History relaxium 1 dose PO QHS PRN sleep 10/31/24 Unknown History Allergy/AdvReac Type Severity Reaction Status Date / Time lisinopril AdvReac Severe cough Verified 10/31/24 15:39 Surgical History (Updated 10/31/24 @ 15:54 by Juma Barr) S/P TURP (status post transurethral resection of prostate) History of cardiac catheterization Postsurgical percutaneous transluminal coronary angioplasty (PTCA) status (~07/29/13) Presence of stent in coronary artery (~07/29/13) Social History Smoking Status: Never smoker alcohol intake: current details: Rare substance use type: does not use Audit: Pertinent Findings Pertinent Findings EKG Perinent findings: September 26, 2024. Normal sinus rhythm. Inferior infarct, age undetermined. Compared to EKG of October 15, 2022, sinus rhythm has replaced ectopic rhythm and inferior infarct is now present. Nonspecific T wave abnormality has improved in the lateral leads. Stress test pertinent findings: September 12, 2024. EF is 67%. No areas of reversibility to suggest ischemia. No previous infarct. Echo (EF%) pertinent findings: September 16, 2024. EF of 65%. Severe aortic stenosis. Heart catheterization pertinent findings: October 07, 2024. 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 Severe calcific aortic stenosis. Consider PCI of the RCA and a TAVR procedure. Consult pertinent findings: September 26, 2024. Fabian SUE. 1. Nonrheumatic aortic valve stenosis. Severe on latest echo. Proceed with cardiac cath to further assess. (See above). 2. PCI/IMMANUEL to the ramus 07/29/2013. Latest stress test was negative for ischemia. Patient appears stable at this time. Denies any recent symptoms or events. Continue current medical therapy. 3. Hypertension. Mildly elevated in the office today. Patient takes meloxicam which could potentially increase his blood pressure. Planning to continue his current medical therapy. Patient will monitor blood pressures at home. 4. Carotid artery disease-ultrasound 2023 showed mild stenosis of the right extracranial internal carotid and moderate stenosis of the left extracranial internal carotid. Continue aspirin and atorvastatin. Recommendation Anesthesia Recommendation Anesthesia recommendation: F/U recommended (Patient just had a cardiac cath which showed moderately-severe single-vessel disease of the right coronary artery and severe aortic stenosis. Recommendation was for PCI of the RCA and a TAVR procedure of the aortic valve. Please have cardiac issues cleared up prior to procedure.)
[2024-11-04 10:16] VITALS: BP 129/80; PULSE 69; RESP 17; TEMP 35.9; O2SAT 98; BMI 28.0
[2024-11-04 10:34] VITALS: BP 165/79; BP 170/78; BP 177/91; O2SAT 96; O2SAT 99
--- NOTE | 2024-11-04 10:38 | RAD_ITS ---
PROCEDURE: Intraoperative fluoroscopic services. 11/04/2024 REASON FOR EXAM: LEFT KNEE GENICULAR RADIOFREQUENCY ABLATION TECHNIQUE: Intraoperative fluoroscopy provided for left knee injection. Radiation report: 10.2 seconds of fluoroscopy. 1.15 mGy. 5 images were submitted. Laterality: Left knee COMPARISON: None FINDINGS: Intraoperative imaging provided for left knee genicular radiofrequency ablation. RAD/Knee 1 or 2 Views IMPRESSION: Intraoperative imaging provided for left knee genicular radiofrequency ablation . Reading Location: [id number]
[2024-11-04] MEDS: Lidocaine 1% (30 ml sdv) 30 ML Vial (10:48)
[2024-11-04 11:12] VITALS: BP 129/80; BP 150/77; PULSE 73; RESP 14; TEMP 36.1; O2SAT 99
--- NOTE | 2024-11-04 11:23 | PCM.OPRPT ---
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 BLOOD LOSS: Minimal. COMPLICATIONS: None. DESCRIPTION OF PROCEDURE: History and physical of today was reviewed. Risks and benefits of the procedure were explained. The patient understood and agreed to proceed. Informed consent was obtained. IV inserted per routine protocol. The patient was taken to the operating room and placed in the supine position. The left knee was prepped and draped in a sterile fashion using iodine x3. Under fluoroscopy guidance on AP view, the left knee was visualized. The skin and subcutaneous tissue was anesthetized with approximately 15 mL of 1% lidocaine using a 25-gauge regular needle at the vicinity of the superomedial, superolateral, and inferomedial genicular nerves. Under direct visualization of fluoroscopy on AP view as well as lateral view, starting on the left superomedial, ending on the left inferomedial, passing through the left superolateral genicular nerves, using a 10 cm radiofrequency ablation needle with a 10 mm curved active tip, the needle was passed through the skin. The tip of the needle was maneuvered and directed towards the diaphyseal junction of each corresponding nerve. Once tip of the needle was in the vicinity of the diaphysis and in contact with the bone, after confirmation on AP as well as lateral view and repeated negative aspiration for blood, the stylette of each needle was then removed, the radiofrequency ablation probe was then inserted at each level impedance was then recorded at the superior medial to be 295 ohm, superior lateral 241 ohm, inferior medial 285 ohm, stimulation was then taken place at 1.5 V and 2 Hz without any motor response at each corresponding level, the probe was then removed intact and a total of 6 cc of preservative-free 1% lidocaine was injected in divided doses between these 3 levels, the radiofrequency ablation probes were then inserted 3 needles, after repeated confirmation on AP lateral as well as oblique views, the radiofrequency ablation then started to 80 ?C for 90 seconds at each level, once ablation concluded the probes were then removed intact, a total of 6 mL of preservative-free 0.25% Marcaine with 40 mg of Depo-Medrol was injected in divided doses between those three levels. The needles were then removed intact. The patient experienced no sign or symptoms of intravascular injection. The patient experienced no paresthesia. The procedure was completed without any apparent difficulty or any complications. The patient appeared to tolerate it well. ASSESSMENT AND PLAN: This is an 89-year-old male with osteoarthritis of the left knee, chronic nonoperative left knee pain, status post Left knee radiofrequency ablation of superior medial, superior lateral, inferior medial genicular nerve under fluoroscopic guidance, patient will continue his current medications, patient will follow-up in approximately 2 weeks for reevaluation. Surgical Findings: 0 Complications Complications: No Admit VTE Documentation VTE Present on Admission: No VTE Mechan Device Prophylaxis: None VTE Pharm Prophylaxis ordered?: No
== END 2024-11-04 11:33 | disposition home or self-care (01) ==
LOC: SDC 09:50 → AC 09:52
PROVIDERS: PCP Family Medicine; Referring Provider Anesthesiology Pain Medicine; Visit Provider Anesthesiology Pain Medicine
PROC: (CPT 64624; principal; 2024-11-04 11:25)
DX: M17.12 Unilateral primary osteoarthritis, left knee (principal); G89.29 Other chronic pain; Z85.46 Personal history of malignant neoplasm of prostate; I10 Essential (primary) hypertension; I35.0 Nonrheumatic aortic (valve) stenosis; I25.2 Old myocardial infarction; I25.10 Atherosclerotic heart disease of native coronary artery without angina pectoris; K21.9 Gastro-esophageal reflux disease without esophagitis; E78.00 Pure hypercholesterolemia, unspecified; G47.33 Obstructive sleep apnea (adult) (pediatric); Z95.5 Presence of coronary angioplasty implant and graft; Z90.79 Acquired absence of other genital organ(s); Z79.82 Long term (current) use of aspirin; Z79.899 Other long term (current) drug therapy
CPT/HCPCS: 64624; 73560; 76000; A4216; J2405

== ENCOUNTER → 2024-12-20 | Outpatient (CLI) | payer MEDICARE, SELFPAY ==
[2024-12-20 12:12] LABS: Hematocrit 39.0 % (40-54); Hemoglobin 12.6 g/dL (13.0-16.5); Immature Granulocytes Count 0.060 X10^3/uL (0.0-0.0); Mean Corp Hgb Conc 32.3 g/dL (32-36); Mean Corpuscular Volume 97.0 fL (80-94); Mean Platelet Vol. 10.3 fl (6.2-12.0); NRBC Flagged by Analyzer 0 % (0-5); POSITIVE DIFFERENTIAL YES; Platelet Count 261 K/mm3 (150-450); RBC Distribution Width CV 13.1 % (11.6-14.6); RBC Distribution Width SD 47.0 fl (35.1-43.9); Red Blood Count 4.02 M/mm3 (4.6-6.2); White Blood Count 6.6 K/mm3 (4.4-11.0)
[2024-12-20 15:36] LABS: AST(SGOT) 19 U/L (<=37); Alanine Aminotransfer ALT/SGPT 7 U/L (<=46); Albumin, Serum 3.9 g/dL (3.4-4.8); Alkaline Phosphatase 74 U/L (40-129); Anion Gap 12 (5-15); BUN 21 mg/dL (4-19); BUN/Creat Ratio 19.3 RATIO (10-20); Calcium,Total 9.2 mg/dL (7.6-11.0); Carbon Dioxide 27.0 mmol/L (21.0-32.0); Chloride 104 mmol/L (98-108); Globulin 2.2 g/dL (2.2-4.2); Glucose 108 mg/dL (70-99); Potassium 3.4 mmol/L (3.3-5.1)
== END | disposition home or self-care (01) ==
LOC: MFPLAB 11:08
PROVIDERS: PCP Family Medicine; Visit Provider Family Medicine
DX: R60.9 Edema, unspecified (principal)
CPT/HCPCS: 36415; 80053; 85025

== ENCOUNTER → 2025-02-10 | Outpatient (CLI) | payer MEDICARE, SELFPAY ==
--- NOTE | 2025-02-10 09:43 | ECHOL_ITS ---
Reason For Study Reason For Study: AORTIC VALVE REPLACMENT Procedure This was a limited 2D transthoracic echocardiogram. The study was technically difficult. Exam performed in department. Left Ventricle Normal LV size. Mild concentric left ventricular hypertrophy. The left ventricular ejection fraction is 60 %. No regional wall motion abnormalities noted. Right Ventricle Normal RV size. Normal systolic function. Atria Normal left atrium. Normal right atrium. Mitral Valve Normal mitral valve. Tricuspid Valve Normal tricuspid valve. Aortic Valve Peak aortic valve gradient 14 mmHg. Mean aortic valve gradient 8 mmHg. Bioprosthetic aortic valve. Great Vessels Normal aortic root. The pulmonary artery is normal size. Inferior vena cava collapse with respiration. Pericardium/Pleural No pericardial effusion. MMode/2D Measurements & Calculations LVIDd: 3.9 cm IVSd: 1.4 cm LVOT diam: 2.1 cm LVIDs: 2.2 cm LVPWd: 1.3 cm LVOT area: 3.4 cm2 RVDd: 3.1 cm FS: 42.7 % Ao root diam: 3.6 cm LAV(MOD-bp): 34.5 ml LVAd ap4: 22.7 cm2 LAV(MOD-bp) Indexed: 18.0 ml/m2 LVLd ap4: 7.5 cm LAV(MOD-sp2): 29.3 ml EDV(MOD-sp4): 57.1 ml LAV(MOD-sp4): 35.2 ml EDV(sp4-el): 58.3 ml LVAs ap4: 12.9 cm2 LVLs ap4: 6.5 cm ESV(MOD-sp4): 23.4 ml ESV(sp4-el): 21.6 ml EF(MOD-sp4): 59.1 % EF(sp4-el): 63.0 % SV(MOD-sp4): 33.7 ml SV(MOD-sp2): 24.0 ml LVAd ap2: 18.8 cm2 LVLd ap2: 7.0 cm SI(MOD-sp4): 17.7 ml/m2 SI(MOD-sp2): 12.6 ml/m2 EDV(MOD-sp2): 40.9 ml EDV(sp2-el): 42.6 ml LVAs ap2: 11.3 cm2 LVLs ap2: 6.4 cm ESV(MOD-sp2): 16.8 ml ESV(sp2-el): 16.8 ml EF(MOD-sp2): 58.8 % SV(sp4-el): 36.7 ml Ao sinus diam: 3.3 cm LA A4 area: 14.9 cm2 LA dimension(2D): 4.0 cm RA A4 area: 10.1 cm2 Doppler Measurements & Calculations Lat Peak E' Raheem: 7.7 cm/sec Med Peak E' Raheem: 8.7 cm/sec Ao V2 max: 188.7 cm/sec Ao max P.2 mmHg Ao V2 mean: 136.9 cm/sec Ao mean P.1 mmHg Ao V2 VTI: 37.2 cm AV (velocity ratio): 0.86 BRYAN(I,D): 2.9 cm2 BRYAN(V,D): 2.5 cm2 LV V1 max: 139.6 cm/sec SV(LVOT): 109.6 ml LV V1 max P.8 mmHg LV V1 mean P.3 mmHg LV V1 mean: 125.2 cm/sec LV V1 VTI: 32.2 cm ECHO/Echo, Limited Study Interpretation Summary Normal LV size. The left ventricular ejection fraction is 60 %. Mild concentric left ventricular hypertrophy. Bioprosthetic aortic valve. Mean aortic valve gradient 8 mmHg. Ordering Physician: Damaris Lee Referring Physician: Will Subramanian MD Performed By: Adrianne Bustos RDCS
== END | disposition home or self-care (01) ==
LOC: CVS 09:40
PROVIDERS: PCP Family Medicine; Referring Provider Physician Assistant Medical; Visit Provider Physician Assistant Medical
DX: Z95.2 Presence of prosthetic heart valve (principal)
CPT/HCPCS: 93308

== ENCOUNTER 2025-02-15 09:40 | Emergency (ER) | payer MEDICARE, SELFPAY ==
[2025-02-15 09:43] VITALS: BP 157/89; PULSE 80; RESP 13; TEMP 37.2; O2SAT 100; BMI 29.1
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
--- NOTE | 2025-02-15 09:59 | CT_ITS ---
PROCEDURE: ABDOMEN/PELVIS W IV CONT ONLY 02/15/2025 REASON FOR EXAM: LEFT FLANK PAIN TECHNIQUE: Procedure Code: [id number] Modality: CT Procedure: ABDOMEN/PELVIS W IV CONT ONLY Coronal and Sagittal reconstruction series were provided. CONTRAST: Isovue 370 VOLUME: 98 mL One or more dose reduction techniques were used (e.g., Automated exposure control, adjustment of the mA and/or kV according to patient size, use of iterative reconstruction technique. RADIATION DOSE SUMMARY: DLP: 1115.61 mGycm COMPARISON: CT abdomen/pelvis 10/15/2022 FINDINGS: Motion artifact limits evaluation. Lower chest: Dependent atelectasis. Coronary artery calcifications. Aortic valve replacement. Liver: Normal size. Hepatic steatosis. No enhancing lesion. Gallbladder and biliary ducts: Unremarkable gallbladder. Normal caliber intrahepatic and common bile ducts. Pancreas:Atrophic. No ductal dilatation or mass. No peripancreatic fluid. Spleen: Unremarkable. Adrenal glands: Unremarkable. Kidneys and ureters: Normal renal size, morphology, and enhancement. No nephroureterolithiasis, hydroureteronephrosis, or renal mass. Urinary bladder: Right posterolateral urinary bladder diverticulum measuring up to 1.3 cm with. GI: Unremarkable stomach and duodenum. Normal caliber small bowel and large bowel.Scattered colonic diverticula without evidence of diverticulitis. Moderate volume of stool in the rectum and colon. Appendix: Unremarkable. Peritoneum: No ascites. Small fat containing umbilical hernia. Small bilateral fat containing inguinal hernias. Lymph nodes: No lymphadenopathy. Vasculature: Portal, splenic, and superior mesenteric veins are patent. No abdominal aortic aneurysm. Atherosclerotic calcification of the abdominal aorta and origin of the celiac trunk and superior mesenteric artery. Common iliac artery atherosclerotic calcification. Reproductive organs: Prostatectomy. Musculoskeletal and soft tissues: No aggressive osseous lesions. Nondisplaced left 10th and 11th left rib fractures of undetermined age. Multiple chronic appearing left rib fractures. Degenerative changes of the spine. Grade 1 L5-S1 anterolisthesis with associated bilateral L5 pars defects.Unremarkable soft tissues. CT/Abdomen/Pelvis W IV Cont ONLY IMPRESSION: 1. No acute pathology in the abdomen or pelvis. 2. Diverticulosis without evidence of diverticulitis. 3. Hepatic steatosis. 4. Nondisplaced left 10th and 11th rib fractures of indeterminate age. Additio nal multiple chronic appearing left rib fractures. Reading Location: [id number]
[2025-02-15] MEDS: 0.9% Normal Saline (1000mL) 1,000 ML 1000 ML IV (10:04)
[2025-02-15 10:20] LABS: Hematocrit 33.3 % (40-54); Hemoglobin 11.1 g/dL (13.0-16.5); Immature Granulocytes Count 0.060 X10^3/uL (0.0-0.0); Mean Corp Hgb Conc 33.3 g/dL (32-36); Mean Corpuscular Volume 94.6 fL (80-94); Mean Platelet Vol. 10.0 fl (6.2-12.0); NRBC Flagged by Analyzer 0 % (0-5); Platelet Count 241 K/mm3 (150-450); RBC Distribution Width CV 12.2 % (11.6-14.6); RBC Distribution Width SD 42.7 fl (35.1-43.9); Red Blood Count 3.52 M/mm3 (4.6-6.2); White Blood Count 9.8 K/mm3 (4.4-11.0)
--- OUTSIDE RECORDS SUMMARY | 2025-02-15 10:33 | XMS RPT_ITS | CCD ---
Author Organization [facility] Care Team Providers Care Drop Clipper Name Role Phone Dr. Otto Subramanian Primary Care Provider Dr. Otto Subramanian Referring Provider [phone] Edwar YIP, REGISTERED NURSE FIRST ASSISTANTDemarcusC Randy Coughlin Attending Provider Cem Arzate Primary Care Provider Unavaildeysi Florentino RN, Irene Unavailable [place]em Primary Care Provider Unavaildeysi Florentino RN, Irene Unavailable [place]em Primary Care Provider Unavaildeysi Florentino RN, Irene Unavailable [place]em Primary Care Provider Unavailabl mai Arzate Cem Hernandez Primary Care Provider Unavaildeysi Florentino RN, Irene Unavailable Chadd RN, Irene Unavailable Chito MOLINA, Everett Unavailable Otto Subramanian MD Primary Care Provider Otto Subramanian MD Primary Care Provider Dr. Otto Subramanian Primary Care Provider Dr. Otto Subramanian Referring Provider Fabian YIP, REGISTERED NURSE FIRST ASSISTANT-C Riri Attending Provider Dr. Osman Bui Attending Provider Dr. Marquise Hart Attending Provider Fabian YIP, REGISTERED NURSE FIRST ASSISTANT-C Riri Referring Provider Otto Subramanian MD Primary Care Provider Dr. Otto Subramanian MD Primary Care Provider Dr. Otto Subramanian MD Attending Provider Moris MOLINA, Dr. Solis Referring Provider [phone] Jesus SALAZAR, Freddie Encarnacion Attending Provider Jesus SALAZAR, Freddie Encarnacion Referring Provider Jesus SALAZAR, Freddie Ecnarnacion Other Provider Ramya MOLINA, Dr. Brewer Attending Provider Moris MOLINA, Dr. Solis Primary Care Provider Riri Gregg Attending Provider Ramya MOLINA, Dr. Brewer Referring Provider Moris MOLINA, Dr. Solis Primary Care Provider Jesus SALAZAR, Freddie Encarnacion Attending Provider Jesus SALAZAR, Freddie Encarnacion Referring Provider Moris MOLINA, Dr. Solis Referring Provider [phone] Andrea MOLINA, Dr. Rodríguez Attending Provider [phone] Andrea MOLINA, Dr. Rodríguez Referring Provider SUBRAMANIAN, OTTO A Primary Care Unavailable CORNEJO, BREE Referring Unavailable SUBRAMANIAN, OTTO A Primary Care Unavailable MORELIA, BREE Referring Unavailable EVERETT ALDRICH Attending Unavailable SUBRAMANIAN, OTTO A Primary Care Unavailable EVERETT ALDRICH Referring Unavailable KAUSHAL STOCKTON JR Attending Unavailable SUBRAMANIAN, OTTO A Primary Care Unavailable CORNEJO, BREE Referring Unavailable SUBRAMANIAN, OTTO A Primary Care Unavailable MORELIA, BREE Referring Unavailable EVERETT ALDRICH Attending Unavailable SUBRAMANIAN, OTTO A Primary Care Unavailable LEISA ROBB Attending Unavailable SUBRAMANIAN, OTTO A Primary Care Unavailable CORNEJO, BREE Referring Unavailable SUBRAMANIAN, OTTO A Primary Care Unavailable CORNEJO, BREE Referring Unavailable SUBRAMANIAN, OTTO A Primary Care Unavailable CORNEJO, BREE Referring Unavailable SUBRAMANIAN, OTTO A Primary Care Unavailable CORNEJO, BREE Referring Unavailable EVERETT ALDRICH Attending Unavailable SUBRAMANIAN, OTTO A Primary Care Unavailable CORNEJO, BREE Referring Unavailable SUBRAMANIAN, OTTO A Primary Care Unavailable KAUSHAL STOCKTON JR Referring Unavailable SUBRAMANIAN, OTTO A Primary Care Unavailable KAUSHAL STOCKTON JR Referring Unavailable SUBRAMANIAN, OTTO A Primary Care Unavailable CORNEJO, BREE Referring Unavailable CRISSY MAI Attending Unavailable SUBRAMANIAN, OTTO A Primary Care Unavailable CORNEJO, BREE Referring Unavailable SUBRAMANIAN, OTTO A Primary Care Unavailable EVERETT ALDRICH Referring Unavailable SUBRAMANIAN, OTTO A Primary Care Unavailable CORNEJO, BREE Referring Unavailable CRISSY MAI Attending Unavailable SUBRAMANIAN, OTTO A Primary Care Unavailable CORNEJO, BREE Referring Unavailable SUBRAMAINAN, OTTO A Primary Care Unavailable PRANAV TATE Attending Unavailable SUBRAMANIAN, OTTO A Primary Care Unavailable CORNEJO, BREE Referring Unavailable Subramanian, Otto A Primary Care Provider LASHELL SALAS Attending Unavailable NICOLBELASHELL BRADLEY Referring Unavailable SUBRAMANIAN, OTTO Primary Care Unavailable LASHELL SALAS Attending Unavailable LASHELL SALAS Referring Unavailable SUBRAMANIAN, OTTO Primary Care Unavailable LASHELL SALAS Admitting Unavailable NICOLBELASHELL BRADLEY Attending Unavailable RAMYA, OSMAN Referring Unavailable SUBRAMANIAN, OTTO Primary Care Unavailable FREDDIE BEE Attending Unavailable SUBRAMANIAN, OTTO Primary Care Unavailable LASHELL SALAS Attending Unavailable RAMYA, OSMAN Referring Unavailable SUBRAMANIAN, OTTO Primary Care Unavailable GEE CORMIER Attending Unavailable SUBRAMANIAN, OTTO Primary Care Unavailable Moris MOLINA, Dr. Solis Primary Care Physician Dr. Osman Bui MD Attending Physician Freddie Eckert Attending Physician Freddie Eckert Referring Provider Riri Gregg Attending Physician Dr. Marcos Mendez MD Attending Physician Dr. Otto Subramanian MD Attending Physician Subramanian, Otto Primary Care Unavailable Ramya, Osman Referring Unavailable Ramya, Osman Attending Unavailable Subramanian, Otto Primary Care Unavailable Freddie Eckert Referring Unavail able Freddie Eckert Attending Unavail able Subramanian, Otto Primary Care Unavailable Freddie Eckert Referring Unavail able Freddie Eckert Attending Unavail able Subramanian, Toto Primary Care Unavailable Ramya, Hampton Attending Unavailable Freddie Eckert Consulting Unavail able Subramanian, Otto Primary Care Unavailable Freddie Eckert Referring Unavail able Osman Bui Attending Unavailable Subramanian, Otto Primary Care Unavailable Subramanian, Otto Referring Unavailable Freddie Eckert Attending Unavail able Subramanian, Otto Primary Care Unavailable Subramanian, Otto Referring Unavailable Freddie Eckert Attending Unavail able Subramanian, Otto Primary Care Unavailable Subramanian, Otto Referring Unavailable Riri Peralta NP Attending Unavailable Subramanian, Otto Primary Care Unavailable Subramanian, Otto Referring Unavailable Freddie Eckert Attending Unavail able Subramanian, Otto Primary Care Unavailable Freddie Eckert Referring Unavail able Freddie Eckert Attending Unavail able Subramanian, Otto Primary Care Unavailable Subramanian, Otto Attending Unavailable Subramanian, Otto Primary Care Unavailable Subramanian, Otto Attending Unavailable Sabas Nayak Attending Unavailable Subramanian, Otto Primary Care Unavailable Marcos Mendez Referring Unavailable Subramanian, Otto Primary Care Unavailable Marcos Mendez Attending Unavailable Subramanian, Otto Primary Care Unavailable Freddie Eckert Referring Unavail able Freddie Eckert Attending Unavail able WALI IRIZARRY Attending Unavailable SUBRAMANIAN, OTTO A Referring Unavailable SUBRAMANIAN, OTTO A Primary Care Unavailable Allergies Allergy Classification Reported Allergen(s) Allergy Type Date of Onset Reaction(s) Facility Angiotensin Converting Enzyme (VICKY) Inhibitors (2 sources) Lisinopril Drug Allergy 07-11-2022 [facility] (20 sources) Lisinopril; Translations: [LISINOPRIL] Drug Allergy 08-16-2021 [facility] (10 sources) Lisinopril Allergy to substance 12-31-2018 [facility] (1 source) Lisinopril Drug Allergy 11-04-2024 [facility] Repository Medications Current Medications Medication Drug Class(es) Dates Sig (Normalized) Sig (Original) atorvastatin 20 mg oral tablet (20 sources) HMG-CoA Reductase Inhibitor Start: 01-10-2025 take 1 tablet by mouth once daily Atorvastatin 20 mg tablet Active 20 mg PO daily January 10, 2025 11:26am 20 mg orally daily Complies with drug therapy Start: 03-28-2022 End: 01-10-2025 take 1 tablet by mouth once daily [...] mg by mouth every other day. calcium citrate 950 mg / cholecalciferol 250 unt oral tablet (9 sources) Vitamin D Start: 01-24-20 24 calcium citrate/vitamin D3 (CALCIUM CITRATE + D ORAL) (3 sources) take 1 tablet by mouth twice daily calcium citrate/vitamin D3 (CALCIUM CITRATE + D ORAL) Take 1 tablet by mouth two times a day. Active diphenhydrAMINE hydrochloride 25 mg oral capsule (2 sources) Histamine-1 Receptor Antagonist Start: 11-01-19 25 take 1 capsule by mouth every eight hours as needed for sleep [place] 5-Mix-Mzt-Fish Oil (9 sources) Start: 01-24-20 End: 01-11-20 [place] 1-Xvz-Hho-Fish Oil (Fish Oil) 300-1,000 mg capsule Discontinued 1 NMA PO DAILY January 24, 2024 1:00am January 10, 2025 11:30am Start: 01-24-2024 [place] 3-Dha-Ep a-Fish Oil (Fish Oil) 300-1,000 mg capsule Active 1 NMA PO DAILY January 24, 2024 1:00am ergocalciferol, vitamin D2, (VITAMIN D2 ORAL) (3 sources) ergocalciferol, vitamin D2, (VITAMIN D2 ORAL) Take by mouth. Active ethacrynic acid 25 mg oral tablet (1 source) Loop Diuretic Start: take 1 tablet by mouth once daily Ethacrynic Acid 25 mg tablet Active 25 mg PO daily January 10, 2025 12:00am swelling Complies with drug therapy Start: 01-10-2025 take 1 tablet by antony th once daily Ethacrynic Acid 25 mg tablet Active 25 mg PO daily January 10, 2025 12:00am swelling Complies with drug therapy Fish Oil-[place]-3 Fatty Acids 500-300 mg ORAL Cap (20 sources) Start: 01-22-2007 take 1 capsule by mouth once daily Fish Oil-[place]-3 Fatty Acids 500-300 mg ORAL Cap Take 1 capsule by mouth once daily. 0 01/22/2007 Active Start: 01-22-2007 Fish Oil-[place] -3 Fatty Acids 500-300 mg ORAL Cap Take by mouth. 0 01/22/2007 Active Start: 01-22-2007 take 1 tablet by antony th once daily Fish Oil-[place]-3 Fatty Acids 500-300 mg ORAL Cap Take one(1) tablet daily. 0 01/22/2007 Active Comment on above: Take one(1) tablet d aily. furosemide 20 mg oral tablet (20 sources) Loop Diuretic Start: 01-10-2025 take 2 tablets by mouth once daily Furosemide 20 mg tablet Active 40 mg PO daily January 10, 2025 11:28am Complies with drug therapy Start: 07-26-2024 End: 01-10-2025 take 1 tablet by mouth once daily Furosemide 20 mg tablet Discontinued 20 mg PO daily September 26, 2024 12:00am January 10, 2025 11:30am Start: 07-29-2013 End: 11-06-2017 take 1 tablet by mouth once daily Furosemide 20 MG tablet Discontinued 20 mg PO DAILY July 29, 2013 12:00am November 06, 2017 9:51am GLUCOSAM/MSM/CHONDR/VIT C/HY AL (AAVQHIODMKP-SLOIYPWDSDR-WAZ ORAL) (20 sources) take 1 tablet by mouth twice daily GLUCOSAM/MSM/CHONDR/VIT C/HYAL (TMYPJEPSJNX-WVLKLRTXVUZ-XOB ORAL) Take 1 tablet by mouth two times a day. Active take 1 tablet by antony th twice daily GLUCOSAM/MSM/CHONDR/VIT C/HYAL (VEGXWMEGGAL-GHXFISVRYCI-BRT ORAL) Take 1 tablet by mouth two times a day. 0 Active take 1 tablet by antony th once daily GLUCOSAM/MSM/CHONDR/VIT C/HYAL (EQVCGYAERGR-KUJKFZLHYCA-DUV ORAL) Take 1 tablet by mouth once daily. 0 Active GLUCOSAM/MSM/CHO NDR/VIT C/HYAL (NLZBNCRSLZP-AQPQLFTVXHL-ZMX ORAL) Take by mouth once daily. 0 Active Comment on above: Take by mouth once d aily. Take 1 tablet by antony th once daily. UVTDXPBGWLS-BJSBQPL-JPB D PO (10 sources) GLUCOSAMINE-CALC IUM- T D PO Take by mouth. Active Isbfuufdyey-Ulvjglqln-G it C-Mn (12 sources) Start: 05-19-2019 Glucosamine-Chondroit- Vit C-Mn Active 1 EACH PO DAILY May 19, 2019 6:16am Start: 05-19-2019 Glucosamine-Ch ondroit-Vit C-Mn Active 1 EACH PO DAILY May 19, 2019 12:00am Start: 05-19-2019 Glucosamine-Ch ondroit-Vit C-Mn Active 1 EACH PO DAILY May 19, 2019 1:00am Qlujioveoko-Tgalivzkw-Hyx C- Mn 887-724-24-5 mg tablet (5 sources) Start: 09-26-2024 Glucosamine-Ch ondroit-Vit C-Mn 125-663-75-5 mg tablet Active 2 {tbl} PO DAILY September 26, 2024 8:21am Complies with drug therapy Start: 09-26-2024 Glucosamine-Ch ondroit-Vit C-Mn 662-299-98-5 mg tablet Active 2 {tbl} PO DAILY [...] 400 mg oral tablet (20 sources) Start: 08-13-2024 End: 12-24-2024 take 1 tablet by mouth once daily Magnesium Oxide 400 mg (241.3 mg magnesium) tablet Active 400 mg PO daily September 26, 2024 12:00am Complies with drug therapy Start: 07-25-2019 End: 04-01-2020 take 1 tablet by mouth once daily Magnesium Oxide 400 mg (241.3 mg magnesium) tablet Discontinued 400 mg PO DAILY July 25, 2019 12:00am April 01, 2020 11:20am meloxicam 7.5 mg oral tablet (20 sources) Nonsteroidal Anti-inflammatory Drug Start: 07-21-2022 End: 12-20-2024 take 1 tablet by mouth once daily Comment on above: once daily. Take 7.5 mg by mouth once daily. [place]-3 Fatty Acids (Fish Oil Concentrate) 1,000 mg capsule (20 sources) Start: 11-06-2017 [place]-3 Fatty Acids (Fish Oil Concentrate) 1,000 mg capsule Active 1200 MG PO daily November 06, 2017 9:50am Start: 11-06-2017 End: 12-26-2023 [place]-3 Fatty Acids (Fish Oi l Concentrate) 1,000 mg capsule Discontinued 1200 mg PO daily November 06, 2017 12:00am December 26, 2023 11:00am Start: 11-06-2017 [place]-3 Fatty Acids (Fish Oil Concentrate) 1,000 mg capsule Active 1200 MG PO daily November 05, 2017 11:00pm Start: 11-06-2017 [place]-3 Fatty Acids (Fish Oil Concentrate) 1,000 mg [...] antony th two times a day. Lipozene POTASSIUM-99 ORAL (20 sources) take 1 tablet by mouth once daily POTASSIUM-99 ORAL Take 1 tablet by mouth once daily. Active take 1 tablet by mouth once bolivar y POTASSIUM-99 ORAL Take 1 tablet by mouth once daily. 0 Active POTASSIUM-99 ORA L Take by mouth once daily. 0 Active Comment on above: Take by mouth once d aily. Take 1 tablet by antony th once daily. relaxium (2 sources) Start: 10-31-2024 relaxium Activ e 1 NMA PO AT BEDTIME as needed for sleep October 31, 2024 12:00am Complies with drug therapy Start: 10-31-2024 relaxium Activ e 1 NMA PO AT BEDTIME as needed for sleep October 31, 2024 12:00am ubidecarenone (ULTRA COQ10 O RAL) (20 sources) ubidecarenone (U LTRA COQ10 ORAL) Take by mouth once daily. Active ubidecarenone (U LTRA COQ10 ORAL) Take by mouth once daily. 0 Active Comment on above: Take by mouth once d aily. 100 ml zoledronic acid 0.04 mg/ml injection (20 sources) Bisphosphonate Start: 023 take 1 dose intravenously every month Zoledronic Ttkj-Dunymbns-Iqqid (Zometa) 4 mg/100 mL Piggyback Active 0 .ROUTE .COMPLEX June 21, 2022 12:00am 1 ea intravenously monthly Complies with drug therapy Zoledronic Acid (ZOMETA IV) Infuse into a venous catheter. Active Completed/Discontinued Medications Medication Drug Class(es) Dates Sig (Normalized) Sig (Original) acetaminophen 325 mg oral tablet (2 sources) Start: 12-23-2024 End: 12-24-2024 take 1 tablet by mouth every four hours as needed for pain acetaminophen 325 mg / HYDROcodone bitartrate 5 mg oral tablet (16 sources) Opioid Agonist Start: 10-15-2022 End: 05-23-2023 [...] Start: 08-16-2021 take 1 tablet by antony th twice daily Hydrocodone-Acetaminophen Active 1 TABLE T PO TWICE A DAY 10 August 16, 2021 11:24am acetaminophen 325 mg / oxyCODONE hydrochloride 5 mg oral tablet (20 sources) Opioid Agonist Start: 12-23-2024 End: 12-24-2024 take 1 tablet by mouth every eight hours as needed for pain 1 tablet, Oral, Every 8 hours PRN, moderate pain (4-6), Starting on Mon12/23/24 at 1642, Maximum dose of acetaminophen is 4000 mg from all sources in 24 hours. Start: 09-26-2024 take 1 tablet by antony th three times daily as needed for pain Oxycodone-Acetaminophen (Percocet) 5-325 mg tablet Active 1 {tbl} [...] left side, initial encounter for closed fracture apalutamide 60 mg oral tablet (20 sources) Start: 06-21-2022 End: 05-23-2023 take 1 tablet by mouth once daily Apalutamide 60 mg Tablet Discontinued 180 mg PO DAILY June 21, 2022 12:00am May 23, 2023 11:06am Start: 06-21-2022 End: 05-23-2023 take 180 mg by mouth once daily Apalutamide Discontinu ed 180 MG PO DAILY June 21, 2022 12:00am May 23, 2023 11:06am Start: 04-26-2022 End: 11-12-2024 take 3 tablets by mouth once daily apalutamide (ERLEADA) 60 mg tablet Indications: Malignant neoplasm of prostate (HCC) , Bone metastases Take 3 tablets (180mg) by mouth once daily. 90 tablet 2 05/19/2022 12:50 PM EST 04/26/2022 11/12/2024 Discontinued (Side Effects) Start: 10-14-2021 take 240 mg by mouth [...] once daily. Take 3 tablets by mo ut once daily. Take 3 tablets (180m g) by mouth once daily. aspirin 81 mg delayed release oral tablet (20 sources) Platelet Aggregation Inhibitor, Nonsteroidal Anti-inflammatory Drug Start: 11-07-19 End: 12-25-19 take 81 mg by mouth once daily 81 mg, Oral, Daily, First dose on Mon12/23/24 at 1645, Do not crush, chew, or split. Comment on above: Take 81 mg by mouth once daily. calcium carbonate 1500 mg / cholecalciferol 200 unt oral tablet (20 sources) Vitamin D Start: 11-07-19 End: 01-24-20 24 Calcium Carbonate-Vitamin D3 (Calcium 600 With Vitamin D3) 600 mg(1,500mg) -200 unit tablet Discontinued 1 {tbl} PO daily November 06, 2017 12:00am January 24, 2024 3:51am Start: 11-06-2017 take 1 tablet by antony once daily Calcium Carbonate-Vitamin D3 (Calcium 600 [...] on above: Take 1 tablet by antony once daily. cephalexin 500 mg oral capsule (4 sources) Cephalosporin Antibacterial Start: 09-30-19 End: 10-07-19 take 1 capsule by mouth twice daily Cephalexin 500 mg capsule Discontinued 500 mg PO TWICE A DAY 14 7 0 September 29, 2024 12:00am October 05, 2024 12:00am October 06, 2024 12:08am cetirizine hydrochloride 10 mg oral tablet (2 sources) Histamine-1 Receptor Antagonist Start: 12-25-19 End: 12-25-19 take 5 mg by mouth once 5 mg, Oral, Once, On Mon12/24/24 at 0230, For 1 dose Start: 12-24-2024 End: 12-24-2024 take 5 mg by mouth once 5 mg, Oral, Once, On 10/11 at 0230, For 1 dose cyclobenzaprine hydrochloride 5 mg oral tablet (20 sources) Muscle Relaxant Start: 10-13-2021 End: 12-26-2023 take 1 tablet by mouth three times [...] mouth t hree times daily as needed. QWY-QCW-FZCMYRH E PO (7 sources) Start: 01-24-2024 End: 12-20-2024 ZRI-WVD-QTCNUQB E PO [place] 9-Vnk-Bld-Fish Oil (Fish Oil) 300-1,000 mg capsule Active 1 NMA PO DAILY January 24, 2024 1:00am 01/24/2024 12/20/2024 Discontinued Start: 01-24-2024 BAM-ELX-PQSBZE N E PO [place] 5-Tay-Jyz-Fish Oil (Fish Oil) 300-1,000 mg capsule Active 1 NMA PO DAILY January 24, 2024 1:00am 01/24/2024 Active docosahexaenoic acid 120 mg / eicosapentaenoic acid 180 mg oral capsule (7 sources) End: 12-20-2024 take 1 capsule by mouth once daily omega-3 (Fish Oil) 1000 MG capsule Take 1,000 mg by mouth daily. 12/20/2024 Discontinued ergocalciferol 1.25 mg oral capsule (20 sources) Provitamin D2 Compound Start: 10-09-2021 End: 09-26-2024 Ergocalciferol (Vitamin D2) 1,250 mcg (50,000 unit) capsule Discontinued 1250 ug PO EVERY WEEK October 14, 2021 12:00am September 26, 2024 8:21am Comment on above: Take 1 capsule by [facility] one time a week. gabapentin 300 mg oral capsule (20 sources) Anti-epileptic Agent Start: 06-22-2018 End: 07-25-2019 take 1 capsule by mouth at bedtime Gabapentin 300 mg capsule Discontinued 300 mg PO AT BEDTIME June 22, 2018 12:00am July 25, 2019 10:29am Glucosamine-Chondroit- Vit C-Mn 1 EACH tablet (9 sources) Start: 05-19-2019 End: 09-26-2024 take 1 tablet by mouth once daily Glucosamine-Chondro it-Vit C-Mn 1 EACH tablet Discontinued 1 NMA PO DAILY May 19, 2019 1:00am September 26, 2024 8:22am Start: 05-19-2019 take 1 tablet by [facility] once daily Opgxignptcu-Oileylcsi-Rpx C-Mn 1 EACH tablet Active 1 NMA PO DAILY May 19, 2019 1:00am hydroCHLOROthiazide 25 mg or al tablet (20 sources) Thiazide Diuretic Start: 12-23-2024 End: 12-24-2024 Start: 03-28-2018 End: 08-09-2024 take 1 tablet by mouth once daily Hydrochlorothiazide 12.5 mg tablet Discontinued 12.5 mg PO DAILY 90 2023 10:07am August 09, 2024 10:00am take 1 capsule by mo uth once daily hydroCHLOROthiazide (HYDRODIURIL, ESIDRIX) 12.5 mg capsule Take 12.5 mg by mouth once daily. Active Comment on above: Take 12.5 mg by mout h once daily. iopamidol (Isovue-370) 76 % injection 100 mL (2 sources) Start: 12-13-19 End: 12-13-19 take 100 mL intravenously once as needed 100 mL, IntraVENous, IMG once PRN, contrast, Starting on Michelle 12/12/24 at 1029, For 1 dose 0.375 ml leuprolide acetate 60 mg/ml prefilled syringe (20 sources) Gonadotropin Releasing Hormone Receptor Agonist Start: 11-13-19 End: 11-13-19 inject 1 dose by subcutaneous injection once 22.5 mg, SUBCUTANEOUS, ONCE, 1 dose, On Mon11/12/24 at 1400, Hazardous Chemotherapy Drug: Use appropriate PPE. Start: 08-20-2024 End: 08-20-2024 inject 1 dose by subcutaneous injection once [...] Angiotensin 2 Receptor Nidhi Start: 11-06-2017 End: 12-24-2024 take 1 tablet by mouth once daily Losartan 25 mg tablet Discontinued 25 mg PO DAILY 90 4 2023 10:07am August 09, 2024 10:00am Comment on above: Take 25 mg by mouth once daily. Magnesium (14 sources) Start: 10-15-2022 End: 09-26-2024 take 1 [...] MG PO DAILY October 15, 2022 12:00am melatonin 5 mg oral tablet (11 sources) Start: 12-24-2024 End: 12-24-2024 take 5 mg by mouth once daily as needed for sleep 5 mg, Oral, Nightly PRN, sleep, Starting on Mon12/24/24 at 0130 Start: 10-31-2024 End: 12-20-2024 Melatonin 5 MG capsule 5 mg. 10/31/2024 12/20/2024 Discontinued methocarbamol 500 mg oral tablet (14 sources) Muscle Relaxant Start: 10-15-2022 End: 12-26-2023 take 1 tablet by mouth every eight hours as needed for pain Methocarbamol 500 mg tablet Discontinued 500 mg PO Q8H as needed for muscle pain 7 0 October 15, 2022 3:13pm December 26, 2023 11:01am metoprolol tartrate 25 mg oral tablet (20 sources) beta-Adrenergic Nidhi Start: 03-28-2022 End: 12-24-2024 take 1 tablet by mouth twice daily [...] mg PO TWICE A DAY 180 3 December 29, 2020 9:15am October 14, 2021 [...] Take 50 mg by mouth twice daily. mupirocin 0.02 mg/mg topical ointment (2 sources) RNA Synthetase Inhibitor Antibacterial Start: 12-23-2024 End: 12-24-2024 1 Application, Nasal, 2 times daily, First dose on Mon12/23/24 at 2100, For 5 days, Recovery & On Unit, Indications: MRSA Nasal Decolonization 1 ml naloxone hydrochloride 0.4 mg/ml injection (2 sources) Opioid Antagonist Start: 12-23-2024 End: 12-24-2024 0.4 mg, IntraVENous, Every 5 min PRN, opioid reversal, respiratory depression, Starting on Mon12/23/24 at 1644, +++ For RR nitroglycerin 0.4 mg sublingual tablet (20 sources) Nitrate Vasodilator Start: 11-06-2017 End: 05-23-2023 Nitroglycerin 0.4 mg tablet, sublingual Discontinued 0.4 mg SL every 5 to 15 minutes as needed for chest pain 25 3 December 31, 2018 9:28am May 23, 2023 5:46pm nitroglycerin chamorro blingual 0.3 mg SL tablet Dissolve 0.3 mg under the tongue every 5 minutes as needed. Active Comment on above: Dissolve 0.3 mg unde r the tongue every 5 minutes as needed. ondansetron 4 mg disintegrating oral tablet (9 sources) Serotonin-3 Receptor Antagonist Start: End: take 1 tablet by mouth three times daily as needed for nausea and vomiting Ondansetron 4 mg tablet,disintegrati ng Discontinued 4 mg PO THREE TIMES A DAY as needed for nausea and vomiting 21 0 January 24, 2024 7:41am September 26, 2024 8:21am 24 hr oxybutynin chloride 5 mg extended release oral tablet (20 sources) Cholinergic Muscarinic Antagonist Start: End: take 1 tablet by mouth once daily Oxybutynin Chloride 5 mg tablet extended release 24hr Discontinued 5 mg PO DAILY January 24, 2024 1:00am June 27, 2024 10:44am Comment on above: Take 1 tablet by antony th once daily. perflutren protein A microsphere (Optison) 3 mL in sodium chloride (PF) 0.9 % 10 mL IV (2 sources) Start: End: polyethylene glycol 3350 38684 mg powder for oral solution (13 sources) Osmotic Laxative Start: End: Polyethylene Glycol 3350 (Miralax) 17 gram/dose powder Discontinued 17 g PO DAILY as needed for constipation 119 0 October 17, 2022 2:11pm January 24, 2024 3:52am potassium 99 mg extended release oral tablet (14 sources) Start: End: take 1 tablet by mouth once daily Potassium 99 mg tablet Discontinued 99 mg PO DAILY October 15, 2022 12:00am September 26, 2024 8:21am microencapsulated potassium chloride 10 meq extended release oral tablet (20 sources) Start: 025 End: 40 mEq, Oral, Once, On 12/23/24 at 2000, For 1 dose, Best given with food and plenty of water to minimize gastric irritation. Do not crush or chew. Start: 12-23-2024 End: 12-23-2024 40 mEq, Oral, Once, On Mon at 2000, For 1 dose, Best given with food and plenty of water to minimize gastric irritation. Do not crush or chew. Start: 03-05-2024 End: 03-12-2024 potassium chloride (K-TAB) 1 0 mEq tablet Take 1 tablet by mouth once daily for 7 days. For seven days 7 tablet 03/05/2024 03/12/2024 Active Start: 08-16-2021 End: 10-14-2021 take 1 tablet by mouth twice daily Potassium Chloride 20 mEq tablet extended release Discontinued 20 meq PO TWICE A DAY August 16, 2021 12:00am October 14, 2021 8:26am predniSONE 20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 Cardiovascular: Rate and Rhythm: Normal rate and regular rhythm. Pulmonary: Effort: Pulmonary effort is normal. Breath sounds: Normal breath sounds. Abdominal: General: Bowel sounds are normal. Palpations: Abdomen is soft. Musculoskeletal: General: Normal range of motion. Cervical back: Normal range of motion and neck supple. Skin: General: Skin is warm and dry. Comments: Groin and wrist are soft without bleeding or hematoma Neurological: General: No focal deficit present. Mental Status: He is alert and oriented to person, place, and time. Psychiatric: Mood and Affect: Mood normal. Thought Content: Thought content normal. 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 [1] Allergies Allergen Reactions Lisinopril Cough Other Reaction(s): Cough [2] Current Outpatient Medications: aspirin 81 MG EC tablet, Take 81 mg by mouth daily., Disp: , Rfl: atorvastatin (Lipitor) 20 MG tablet, Take 20 mg by mouth., Disp: , Rfl: [id number]-[id number]-UEJ D PO, Take by mouth., Disp: , Rfl: hydroCHLOROthiazide 12.5 MG tablet, Take 12.5 mg by mouth daily., Disp: , Rfl: losartan (Cozaar) 25 MG tablet, Take 25 mg by mouth daily., Disp: , Rfl: MAGnesium-Oxide 400 (240 Mg) MG tablet, Take 400 mg by mouth daily., Disp: , Rfl: metoprolol tartrate (Lopressor) 25 MG tablet, Take 25 mg by mouth 2 times daily., Disp: , Rfl: nitroglycerin (Nitrostat) 0.4 MG SL tablet, Place 0.4 mg under the tongue every 5 minutes as needed for chest pain., Disp: , Rfl: oxyCODONE-acetaminophen (Percocet) 5-325 MG tablet, TAKE 1/2 TO 1 (ONE-HALF TO ONE) TABLET BY MOUTH THREE TIMES DAILY NEEDED FOR PAIN, Disp: , Rfl: Zoledronic Acid (ZOMETA IV), Infuse into a venous catheter., Disp: , Rfl: [3] Past Medical History: Diagnosis Date Coronary artery disease Hyperlipidemia Hypertension Prostate cancer (HCC) Sleep apnea [4] Past Surgical History: Procedure Laterality Date AORTIC VALVE REPLACEMENT 12/23/2024 CARDIAC CATHETERIZATION N/A 12/23/2024 Performed by Lashell Salas MD at [facility] OR CORONARY STENT PLACEMENT 07/29/2013 IMMANUEL ramus PROSTATECTOMY 1998 [5] No family history on file. Normal [facility] BASIC METABOLIC PANELon 10-0 Anion gap [Moles/Vol] 11 mmol/L Normal 3-13 [facility] Comment on above: Performed By: #### L [id number] #### Computer Network Specialist: CARLA SOLORZANO ([phone]) [facility] [address] [place] [address] Calcium [Mass/Vol] 8.8 mg/dL Normal 8.8-10.0 [facility] Comment on above: Performed By: #### L [id number] #### Computer Network Specialist: CARLA SOLORZANO ([phone]) [facility] ([facility]) [address] [place] [address] Chloride [Moles/Vol] 104 mmol/L Normal 98-107 [facility] Comment on above: Performed By: #### L [id number] #### Computer Network Specialist: CARLA SOLORZANO ([phone]) [facility] [address] [place] [address] CO2 [Moles/Vol] 24 mmol/L Normal 23-31 [facility] Comment on above: Performed By: #### L [id number] #### Computer Network Specialist: CARLA SOLORZANO ([phone]) [facility] ([facility]) [address] [place] [address] Creatinine [Mass/Vol] 0.86 mg/dL Normal 0.72-1.25 [facility] Comment on above: Performed By: #### L [id number] #### Computer Network Specialist: CARLA SOLORZANO ([phone]) [facility] ([facility]) [address] [place] [address] [place] GLOMERULAR FILTRATION RATE ML/MIN/1.73 SQ M.PREDICTED 83.3 mL/min/1.73m*2 Normal >60.0 [facility] Comment on above: Result Comment: Calc ulation based on the Chronic Kidney Disease Epidemiology Collaboration (CKD-EPI) equation refit without adjustment for race Performed By: #### L [id number] #### Computer Network Specialist: CARLA SOLORZANO ([id number]) [facility] ([facility]) [address] [place] [address] Glucose [Mass/Vol] 109 mg/dL Normal 82-115 [facility] Comment on above: Performed By: #### L [id number] #### Computer Network Specialist: CARLA SOLORZANO ([phone]) [facility] [address] [place] [address] Potassium [Moles/Vol] 3.9 mmol/L Normal 3.5-5.1 [facility] Comment on above: Result Comment: [facility] potassium values may be up to 0.5 mmol/L lower than serum values. Performed By: #### L [id number] #### Computer Network Specialist: CARLA SOLORZANO ([phone]) [facility] ([facility]) [address] [place] [address] Sodium [Moles/Vol] 139 mmol/L Normal 136-145 [facility] Comment on above: Performed By: #### L [id number] #### Computer Network Specialist: CARLA SOLORZANO ([phone]) [facility] [address] [place] [address] Urea nitrogen [Mass/Vol] 26 mg/dL High 9-23 [facility] Comment on above: Performed By: #### L [id number] #### Computer Network Specialist: CARLA SOLORZANO ([phone]) [facility] ([facility]) [address] [place] [address] Basic metabolic 1998 panelon 12-24-2024 Anion gap [Moles/Vol] 11 mmol/L 3 - 13 mmol/L [facility] Calcium [Mass/Vol] 8.8 mg/dL 8.8 - 10. 0 mg/dL [facility] Chloride [Moles/Vol] 104 mmol/L 98 - 10 7 mmol/L [facility] CO2 [Moles/Vol] 24 mmol/L 23 - 31 mmol/L [facility] Creatinine [Mass/Vol] 0.86 mg/dL 0.72 - 1.25 mg/dL [facility] GFR/1.73 sq M.predicted (S/P/Bld) [Vol rate/Area] 83.3 mL/min - PINF [facility] Comment on above: Calculation based on the Chronic Kidney Disease Epidemiology Collaboration (CKD-EPI) equation refit without adjustment for race Glucose [Mass/Vol] 109 mg/dL 82 - 115 mg/dL [facility] Interpretation and review of laboratory results Abnormal [facility] Potassium [Moles/Vol] 3.9 mmol/L 3.5 - 5.1 mmol/L [facility] Comment on above: Plasma potassium lino ues may be up to 0.5 mmol/L lower than serum values. Sodium [Moles/Vol] 139 mmol/L 136 - 145 mmol/L [facility] Urea nitrogen [Mass/Vol] 26 mg/dL High 9 - 23 mg/dL [facility] CBC (HEMOGRAM)on 12-24-2024 Erythrocyte distribution width (RBC) [Ratio] 13.0 % Normal 11.5-15.0 [facility] Comment on above: Performed By: #### L [id number] #### Computer Network Specialist: CARLA SOLORZANO ([phone]) [facility]) [address] [place] [address] Hematocrit (Bld) [Volume fraction] 35.5 % Low 40.0-52.0 [facility] Comment on above: Performed By: #### L [id number] #### Computer Network Specialist: CARLA SOLORZANO ([phone]) [facility]) [address] [place] [address] Hemoglobin (Bld) [Mass/Vol] 11.9 g/dL Low 13.0-18.0 [facility] Comment on above: Performed By: #### L [id number] #### Computer Network Specialist: CARLA SOLORZANO ([phone]) [facility]) [address] [place] [address] MCH (RBC) [Entitic mass] 32.0 pg Normal 26.0-34.0 [facility] Comment on above: Performed By: #### L [id number] #### Computer Network Specialist: CARLA SOLORZANO ([phone]) [facility]) [address] [place] [address] MCHC 33.5 % Normal 30.5-36.0 [facility] Comment on above: Performed By: #### L [id number] #### Computer Network Specialist: CARLA SOLORZANO ([phone]) [facility] ([facility]) [address] [place] [address] MCV (RBC) [Entitic vol] 95.4 fL Normal 77.0-99.0 [facility] Comment on above: Performed By: #### L [id number] #### Computer Network Specialist: CARLA SOLORZANO ([phone]) [facility] ([facility]) [address] [place] [address] Platelet mean volume (Bld) [Entitic vol] 10.3 fL Normal 9.0-12.7 [facility] Comment on above: Performed By: #### L [id number] #### Computer Network Specialist: CARLA SOLORZANO ([phone]) [facility] ([facility]) [address] [place] [address] Platelets (Bld) [#/Vol] 221 10*3/uL Normal 140-440 [facility] Comment on above: Performed By: #### L [id number] #### Computer Network Specialist: CARLA SOLORZANO ([id number]) [facility] ([facility]) [address] [place] [address] RBC (Bld) [#/Vol] 3.72 10*6/uL Low 4.40-5.90 [facility] Comment on above: Performed By: #### L [id number] #### Computer Network Specialist: CARLA SOLORZANO ([phone]) [facility] ([facility]) [address] [place] [address] WBC (Bld) [#/Vol] 8.7 10*3/uL Normal 3.6-10.7 [facility] Comment on above: Performed By: #### L [id number] #### Computer Network Specialist: CARLA SOLORZANO ([phone]) [facility]) [address] [place] [address] CBC panel Auto (Bld)on 12-24 Erythrocyte distribution width (RBC) [Ratio] 13 % 11.5 - 15.0 % [facility] Hematocrit (Bld) [Volume fraction] 35.5 % Low 40.0 - 52.0 % [facility] [employer] Hemoglobin (Bld) [Mass/Vol] 11.9 g/dL Low 13.0 - 18.0 g/dL [facility] [employer] Interpretation and review of laboratory results Abnormal [facility] [employer] MCH (RBC) [Entitic mass] 32 pg 26.0 - 34.0 pg [facility] [employer] MCHC (RBC) [Mass/Vol] 33.5 % 30.5 - 36.0 % [facility] MCV (RBC) [Entitic vol] 95.4 fL 77.0 - 99.0 fL [facility] [employer] Platelet mean volume (Bld) [Entitic vol] 10.3 fL 9.0 - 12.7 fL [facility] [employer] Platelets (Bld) [#/Vol] 221 10*3/uL 140 - 440 10*3/uL [facility] [employer] RBC (Bld) [#/Vol] 3.72 10*6/uL Low 4.40 - 5.9 0 10*6/uL [facility] [employer] WBC (Bld) [#/Vol] 8.7 10*3/uL 3.6 - 10.7 10*3/uL [facility] [employer] ECG 12-LEADon 12-24-2024 ECG 12-LEAD IMPRESSION: Sinus rhythm Inferior infarct, old Nonspecific T abnormalities, lateral leads Electronically Signed On 12-24-2024 15:28:16 EDT by Leonie Johnson Normal [facility] Laboratory - Coagulationon 1 PT Coag (Bld) [Time] 11.4 s 9.0 - 1 2.0 s [facility] [employer] No Panel InformationOrdered By: Leonie Johnson on 12-24-2024 P [place] -38 degrees [employer] Work Phone: CA Interval 167 ms [employer] Work Phone: QRS [place] -14 degrees [employer] Work Phone: QRSD Interval 105 ms [employer] Work Phone: QT Interval 408 ms [employer] Work Phone: QTC Interval 469 ms [employer] Work Phone: T Wave [place] 161 degrees [employer] Work Phone: [facility] Work Phone: No Panel Informationon 12-24 Sinus rhythm Inferior infarct, old Nonspecific T abnormalities, lateral leads Electronically Signed On 12-24-2024 15:28:16 EDT by Leonie Johnson CV Leonie Mcnulty MD - 12/24/2024 IMPRESSION: Sinus rhythm Inferior infarct, old Nonspecific T abnormalities, lateral leads Electronically Signed On 12-24-2024 15:28:16 EDT by Leonie Johnson [facility] PROTHROMBIN TIMEon INR Coag (PPP) [Relative time] 1.1 {INR} Normal 0.9-1.1 [facility] Comment on above: Order Comment: If pa tient on coumadin within 4 days prior. Result Comment: Nabil mmended Anticoagulant Therapy: SEE BELOW ----- INR of 2.0 - 3.0 : - Prophylaxis of Venous Thrombosis (high-risk surgery) - Treatment of Venous Thrombosis - Treatment of Pulmonary Embolism (Includes tissue heart valves, Acute Myocardial Infarction to prevent systemic embolism, Valvular Heart Disease, and Atrial Fibrillation) ----- INR of 2.5 - 3.5 : - Mechanical Prosthetic Valves (high risk) - If oral anticoagulant therapy is used to prevent Myocardial Infarction Performed By: #### Whitney [id number] #### Computer Network Specialist: CARLA SOLORZANO ([phone]) [facility] [address] [place] [address] PT Coag (PPP) [Time] 11.4 s Normal 9.0-12.0 [facility] [employer] [facility] Comment on above: Order Comment: If pa tient on coumadin within 4 days prior. Performed By: #### L [id number] #### Computer Network Specialist: CARLA SOLORZANO ([phone]) [facility] ([facility]) [address] [place] [address] [place] PT Coag (Bld) [Time]on 12-24 INR Coag (PPP) [Relative time] 1.1 {INR} 0.9 - 1.1 [facility] Comment on above: Recommended Anticoag ulant Therapy: SEE BELOW ----- INR of 2.0 - 3.0 : - Prophylaxis of Venous Thrombosis (high-risk surgery) - Treatment of Venous Thrombosis - Treatment of Pulmonary Embolism (Includes tissue heart valves, Acute Myocardial Infarction to prevent systemic embolism, Valvular Heart Disease, and Atrial Fibrillation) ----- INR of 2.5 - 3.5 : - Mechanical Prosthetic Valves (high risk) - If oral anticoagulant therapy is used to prevent Myocardial Infarction Interpretation and review of laboratory results Normal [facility] Heart TransthoracicOrdere d By: Crystal Cuellar on 12-24-2024 Aortic Sinus Valsalva 3.3 cm [employer] Phone: Aortic Sinus Valsalva Index 1.71 cm/m2 [employer] Phone: Aortic valve Mean systole pressure gradient by US.doppler derived full Bernoulli 7 mmHg [employer] Phone: Aortic valve Orifice area by US 2.8 cm2 [employer] Phone: Aortic valve Peak systolic flow by US.doppler 1.3 m/s [employer] Phone: Ascending Aorta 3.6 cm [employer] Phone: Ascending Aorta Index 1.87 cm/m2 [employer] Phone: AV Area by Peak Velocity 1.2 cm2 [employer] Phone: AV Area by VTI 1.1 cm2 [employer] Phone: AV AT 74.22 ms [employer] Phone: AV Peak Gradient 13 mmHg [employer] Phone: AV Peak Velocity 1.8 m/s [employer] Phone: AV Velocity Ratio 0.44 [employer] Phone: AV VTI 37 cm [employer] Phone: BRYAN/BSA Peak Velocity 0.6 cm2/m2 [employer] Phone: BRYAN/BSA VTI 0.6 cm2/m2 [employer] Phone: E/E' Lateral 4.8 [employer] Phone: E/E' Ratio (Averaged) 5.83 [facility] [employer] Work Phone: E/E' Septal 6.86 [facility] [employer] Work Phone: Fractional Shortening 2D 42 % 28 - 44 % [facility] [employer] Work Phone: Interpretation and review of laboratory results Abnormal [facility] [employer] Work Phone: IVC Diameter 1.4 cm [facility] [employer] Work Phone: IVSd 1.6 cm Abnormal 0.6 - 1.0 cm [facility] [employer] Work Phone: LA Diameter 4.4 cm [facility] [employer] Work Phone: LA Size Index 2.28 cm/m2 [facility] [employer] Phone: LA Volume 2C 64 mL Abnormal 18 - 58 mL [facility] Phone: LA Volume 4C 30 mL 18 - 58 mL [facility] [employer] Work Phone: LA Volume A/L 51 mL [facility] [employer] Work Phone: LA Volume BP 48 mL 18 - 58 mL [facility] [employer] Work Phone: LA Volume Index 2C 33 mL/m2 16 - 34 mL/m2 [facility] [employer] Work Phone: LA Volume Index 4C 16 mL/m2 16 - 34 mL/m2 [facility] Phone: LA Volume Index A/L 26 mL/m2 16 - 34 mL/m2 [facility] [employer] Work Phone: LA Volume Index BP 25 ml/m2 16 - 34 ml/m2 [facility] [employer] Work Phone: Left ventricular Ejection fraction by US.2D+Calculated by biplane method of disks 79 % 55 - 100 % [facility] [employer] Work Phone: LV E' Lateral Velocity 10 cm/s [place] [employer] Work Phone: LV E' Septal Velocity 7 cm/s [facility] [employer] Work Phone: LV EDV A2C 84 mL [facility] [employer] Work Phone: LV EDV A4C 97 mL [employer] Work Phone: LV EDV BP 93 mL 67 - 155 mL [employer] Work Phone: LV EDV Index A2C 44 mL/m2 [employer] Work Phone: LV EDV Index A4C 50 mL/m2 [employer] Work Phone: LV EDV Index BP 48 mL/m2 [employer] Work Phone: LV Ejection Fraction A2C 81 % [employer] Work Phone: LV Ejection Fraction A4C 77 % [employer] Work Phone: LV ESV A2C 16 mL [employer] Work Phone: LV ESV A4C 22 mL [employer] Phone: LV ESV BP 19 mL Abnormal 22 - 58 mL [employer] Work Phone: LV ESV Index A2C 8 mL/m2 [employer] Work Phone: LV ESV Index A4C 11 mL/m2 [employer] Work Phone: LV ESV Index BP 10 mL/m2 [employer] Work Phone: LV Mass 2D 207.8 g 88 - 224 g [employer] Phone: LV Mass 2D Index 107.7 g/m2 49 - 115 g/m2 [employer] Work Phone: LV RWT Ratio 0.47 [employer] Work Phone: LVIDd 4.3 cm 4.2 - 5.9 cm [employer] Work Phone: LVIDd Index 2.23 cm/m2 [employer] Work Phone: LVIDs 2.5 cm [employer] Work Phone: LVIDs Index 1.3 cm/m2 [employer] Work Phone: LVOT Cardiac Output 3.3 liter/mi nut e [employer] Work Phone: LVOT Diameter 1.9 cm [employer] Work Phone: LVOT Mean Gradient 1 mmHg [employer] Work Phone: LVOT Peak Gradient 2 mmHg [employer] Work Phone: LVOT Peak Velocity 0.8 m/s [employer] Phone: LVOT Stroke Volume Index 22 mL/m2 [employer] Work Phone: LVOT SV 42.5 ml [employer] Work Phone: LVOT VTI 15 cm [employer] Work Phone: LVOT:AV VTI Index 0.41 [employer] Phone: LVPWd 1 cm 0.6 - 1.0 cm [employer] Phone: MV A Velocity 0.7 m[facility]: MV E Velocity 0.48 m/s [facility] Phone: MV E Wave Deceleration Time 460.2 ms [facility] Phone: MV E/A 0.69 [employer] Phone: RA Area 4C 25.6 mL [facility] Phone: RV Basal Dimension 2.5 cm [employer] Phone: RV Free Wall Peak S' 20 cm/s [facility] [employer] Work Phone: RV Longitudinal Dimension 7.7 cm [facility] [employer] Work Phone: RV Mid Dimension 2 cm [facility] Phone: Sinotubular Junction 2.9 cm [facility] [employer] Work Phone: TAPSE 2.9 cm 1.7 cm [employer] Work Phone: [facility] Phone: Heart Transthoracicon Left Ventricle: Left ventricle size is normal. Increased wall thickness. Septal thickening. Hyperdynamic left ventricular systolic function. EF by 2D Simpsons Biplane is 79%. Normal wall motion. Right Ventricle: Right ventricle size is normal. Normal systolic function. TAPSE is normal. Aortic Valve: Lo Maury 3 Ultra bioprosthetic aortic valve that is well-seated with a size of 23 mm. AV mean gradient is 7 mmHg. No cusp thickening. No cusp calcification. Tricuspid Valve: Unable to assess RVSP due to not being able to assess RA pressure. IVC/Hepatic Veins: IVC size is normal. Cannot estimate RA pressure due to the IVC not being visualized. Pericardium: Evidence of prominent epicardial fat. No pericardial effusion. Left Ventricle Left ventricle size is normal. Increased wall thickness. Septal thickening. Hyperdynamic left ventricular systolic function. EF by 2D Simpsons Biplane is 79%. Normal wall motion. Indeterminate diastolic function. Right Ventricle Right ventricle size is normal. Normal systolic function. TAPSE is normal. Left Atrium Left atrium size is normal. LA Volume Index A/L is 26 mL/m2. Right Atrium Right atrium size is normal. IVC/SVC IVC size is normal. Cannot estimate RA pressure due to the IVC not being visualized. Mitral Valve Valve structure is normal. Trace regurgitation. No stenosis noted. Tricuspid Valve Valve structure is normal. Trace regurgitation. Unable to assess RVSP due to not being able to assess RA pressure. Aortic Valve Lo Maury 3 Ultra bioprosthetic aortic valve that is well-seated with a size of 23 mm. AV mean gradient is 7 mmHg. No cusp thickening. No cusp calcification. No regurgitation. No paravalvular regurgitation. AV mean gradient is 7 mmHg. AV peak gradient is 13 mmHg. LVOT:AV VTI Index is 0.41. LVOT diameter is 1.9 cm. Pulmonic Valve The pulmonic valve was not well visualized. Trace regurgitation. Ascending Aorta Normal sized sinuses of Valsalva and ascending aorta. Normal sized STJ. Pericardium Evidence of prominent epicardial fat. No pericardial effusion. Septum No interatrial shunt visualized on color Doppler. Study Details Image quality: adequate. Heart rate: 113 bpm. Blood pressure: 121/64 mmHg. Technical qualifiers: Technically difficult Doppler study, technically difficult study due to low parasternal window, technically difficult study due to patient's heart rhythm and procedure performed with the patient in a supine position. No contrast was given. Comparison Study There is a prior study available for comparison. Prior study date: 12/23/2024. CV CPACS Vital signsOrdered By: Libby Johnson on 12-24-2024 Heart rate 79 /min bpm [facility] Work Phone: ABO and Rh group Confirm Nom (Bld)on 12-23-2024 ABO group Nom (Bld) O [facility] D Ag Ql (RBC) Positive [facility] BASIC METABOLIC PANELon 10-0 Anion gap [Moles/Vol] 9 mmol/L Normal 3-13 [facility] Comment on above: Performed By: #### L [id number] #### Computer Network Specialist: CARLA SOLORZANO ([phone]) [facility] ([facility]) [address] [place] [address] Calcium [Mass/Vol] 8.6 mg/dL Low 8.8-10.0 [facility] Comment on above: Performed By: #### L [id number] #### Computer Network Specialist: CARLA SOLORZANO ([phone]) [facility] ([facility]) [address] [place] [address] Chloride [Moles/Vol] 103 mmol/L Normal 98-107 [facility] Comment on above: Performed By: #### L [id number] #### Computer Network Specialist: CARLA SOLORZANO ([phone]) [facility] ([facility]) [address] [place] [address] CO2 [Moles/Vol] 29 mmol/L Normal 23-31 [facility] Comment on above: Performed By: #### L [id number] #### Computer Network Specialist: CARLA SOLORZANO ([phone]) [facility] ([facility]) [address] [place] [address] Creatinine [Mass/Vol] 1.08 mg/dL Normal 0.72-1.25 [facility] Comment on above: Performed By: #### L [id number] #### Computer Network Specialist: CARLA SOLORZANO ([phone]) [facility]) [address] [place] [address] [place] GLOMERULAR FILTRATION RATE ML/MIN/1.73 SQ M.PREDICTED 66.0 mL/min/1.73m*2 Normal >60.0 [facility] Comment on above: Result Comment: Calc ulation based on the Chronic Kidney Disease Epidemiology Collaboration (CKD-EPI) equation refit without adjustment for race Performed By: #### L [id number] #### Computer Network Specialist: CARLA SOLORZANO ([phone]) [facility] ([facility]) [address] [place] [address] Glucose [Mass/Vol] 117 mg/dL High 82-115 [facility] Comment on above: Performed By: #### L [id number] #### Computer Network Specialist: CARLA SOLORZANO ([phone]) [facility] ([facility]) [address] [place] [address] Potassium [Moles/Vol] 3.0 mmol/L Low 3.5-5.1 [facility] Comment on above: Result Comment: [facility] potassium values may be up to 0.5 mmol/L lower than serum values. Performed By: #### L [id number] #### Computer Network Specialist: CARLA SOLORZANO ([phone]) [facility] ([facility]) [address] [place] [address] Sodium [Moles/Vol] 141 mmol/L Normal 136-145 [facility] Comment on above: Performed By: #### L [id number] #### Computer Network Specialist: CARLA SOLORZANO ([phone]) [facility]) [address] [place] [address] Urea nitrogen [Mass/Vol] 28 mg/dL High 9-23 [facility] Comment on above: Performed By: #### L [id number] #### Computer Network Specialist: CARLA SOLORZANO ([phone]) [facility]) [address] [place] [address] BLOOD TYPE AND SCREEN GELon 12-23-2024 ABO GROUPING O [facility] Comment on above: Performed By: #### L [id number] ####Computer Network Specialist: CARLA SOLORZANO ([phone])[facility] ([facility])[address] [place] [address] RH TYPE IN BLOOD Positive Normal [facility] Comment on above: Performed By: #### L [id number] ####Computer Network Specialist: CARLA SOLORZANO ([phone])[facility] ([facility])[address] [place] [address] Basic metabolic 1998 panelon 12-23-2024 Anion gap [Moles/Vol] 9 mmol/L 3 - 13 mmol/L [facility] Calcium [Mass/Vol] 8.6 mg/dL Low 8.8 - 10. 0 mg/dL [facility] Chloride [Moles/Vol] 103 mmol/L 98 - 10 7 mmol/L [facility] CO2 [Moles/Vol] 29 mmol/L 23 - 31 mmol/L [facility] Creatinine [Mass/Vol] 1.08 mg/dL 0.72 - 1.25 mg/dL [facility] GFR/1.73 sq M.predicted (S/P/Bld) [Vol rate/Area] 66 mL/min - PINF [facility] Comment on above: Calculation based on the Chronic Kidney Disease Epidemiology Collaboration (CKD-EPI) equation refit without adjustment for race Glucose [Mass/Vol] 117 mg/dL High 82 - 115 mg/dL [facility] Interpretation and review of laboratory results Abnormal [facility] Potassium [Moles/Vol] 3 mmol/L Low 3.5 - 5.1 mmol/L [facility] Comment on above: Plasma potassium lino ues may be up to 0.5 mmol/L lower than serum values. Sodium [Moles/Vol] 141 mmol/L 136 - 145 mmol/L [facility] Urea nitrogen [Mass/Vol] 28 mg/dL High 9 - 23 mg/dL [facility] Blood type and Crossmatch marie oh (Bld)on 12-23-2024 ABO group Nom (Bld) O [facility] Blood group antibody screen GEL Ql Negative [facility] D Ag Ql (RBC) Positive [facility] CBC (HEMOGRAM)on 12-23-2024 Erythrocyte distribution width (RBC) [Ratio] 13.0 % Normal 11.5-15.0 [facility] Comment on above: Performed By: #### L [id number] #### Computer Network Specialist: CARLA SOLORZANO ([phone]) [facility] ([facility]) [address] [place] [address] Hematocrit (Bld) [Volume fraction] 34.4 % Low 40.0-52.0 [facility] Comment on above: Performed By: #### L [id number] #### Computer Network Specialist: CARLA SOLORZANO ([phone]) [facility]) [address] [place] [address] Hemoglobin (Bld) [Mass/Vol] 11.5 g/dL Low 13.0-18.0 [facility] Comment on above: Performed By: #### L [id number] #### Computer Network Specialist: CARLA SOLORZANO ([phone]) [facility] ([facility]) [address] [place] [address] MCH (RBC) [Entitic mass] 32.4 pg Normal 26.0-34.0 [facility] Comment on above: Performed By: #### L [id number] #### Computer Network Specialist: CARLA SOLORZANO ([phone]) [facility]) [address] [place] [address] MCHC 33.4 % Normal 30.5-36.0 [facility] Comment on above: Performed By: #### L [id number] #### Computer Network Specialist: CARLA SOLORZANO ([phone]) [facility] ([facility]) [address] [place] [address] MCV (RBC) [Entitic vol] 96.9 fL Normal 77.0-99.0 [facility] Comment on above: Performed By: #### L [id number] #### Computer Network Specialist: CARLA SOLORZANO ([phone]) [facility] ([facility]) [address] [place] [address] Platelet mean volume (Bld) [Entitic vol] 10.4 fL Normal 9.0-12.7 [facility] Comment on above: Performed By: #### L [id number] #### Computer Network Specialist: CARLA SOLORZANO ([phone]) [facility]) [address] [place] [address] Platelets (Bld) [#/Vol] 194 10*3/uL Normal 140-440 [facility] Comment on above: Performed By: #### L [id number] #### Computer Network Specialist: CARLA SOLORZANO ([phone]) [facility] [address] [place] [address] RBC (Bld) [#/Vol] 3.55 10*6/uL Low 4.40-5.90 [facility] Comment on above: Performed By: #### L [id number] #### Computer Network Specialist: CARLA SOLORZANO ([phone]) [facility] ([facility]) [address] [place] [address] WBC (Bld) [#/Vol] 8.5 10*3/uL Normal 3.6-10.7 [facility] Comment on above: Performed By: #### L [id number] #### Computer Network Specialist: CARLA SOLORZANO ([phone]) [facility] ([facility]) [address] [place] [address] CBC panel Auto (Bld)on 12-23 Erythrocyte distribution width (RBC) [Ratio] 13 % 11.5 - 15.0 % [facility] [employer] Hematocrit (Bld) [Volume fraction] 34.4 % Low 40.0 - 52.0 % [facility] Hemoglobin (Bld) [Mass/Vol] 11.5 g/dL Low 13.0 - 18.0 g/dL [facility] Interpretation and review of laboratory results Abnormal [facility] MCH (RBC) [Entitic mass] 32.4 pg 26.0 - 34.0 pg [facility] MCHC (RBC) [Mass/Vol] 33.4 % 30.5 - 36.0 % [facility] MCV (RBC) [Entitic vol] 96.9 fL 77.0 - 99.0 fL [facility] Platelet mean volume (Bld) [Entitic vol] 10.4 fL 9.0 - 12.7 fL [facility] [employer] Platelets (Bld) [#/Vol] 194 10*3/uL 140 - 440 10*3/uL [facility] [employer] RBC (Bld) [#/Vol] 3.55 10*6/uL Low 4.40 - 5.9 0 10*6/uL [facility] WBC (Bld) [#/Vol] 8.5 10*3/uL 3.6 - 10.7 10*3/uL [employer] ECG 12-LEADon 12-23-2024 ECG 12-LEAD IMPRESSION: Sinus rhythm Inferior infarct, old Nonspecific T abnormalities, lateral leads Electronically Signed On 12-23-2024 17:16:13 EDT by Ochoaedgar Grace [facility] No Panel InformationOrdered By: Gabriela Grace on 12-23-2024 P [place] 27 degrees ezeep Phone: CA Interval 195 ms ezeep Phone: QRS [place] -5 degrees ezeep Phone: QRSD Interval 109 ms ezeep Phone: QT Interval 425 ms ezeep Phone: QTC Interval 482 ms ezeep Phone: T Wave [place] 63 degrees ezeep Phone: ezeep Phone: No Panel Informationon 12-23 Sinus rhythm Inferior infarct, old Nonspecific T abnormalities, lateral leads Electronically Signed On 12-23-2024 17:16:13 EDT by Gabriela Grace CV Gabriela Bolden MD - 12/23/2024 IMPRESSION: Sinus rhythm Inferior infarct, old Nonspecific T abnormalities, lateral leads Electronically Signed On 12-23-2024 17:16:13 EDT by Ochoaedgar Grace [facility] Op Noteon 12-23-2024 Op Note CARDIOTHORACIC SURGERY--OPERATIVE NOTE Date: 12/23/24 Preoperative diagnosis: Severe symptomatic aortic stenosis Chronic diastolic congestive heart failure Frailty Postoperative diagnosis: Severe symptomatic aortic stenosis Chronic diastolic congestive heart failure Frailty Surgeon: Tam Cervantes DO Child Center Assistant: Lashell Salas MD Spray Machine Operator: Randal Procedure: Transcatheter aortic valve replacement with 26 mm MAURY S3 valve Transthoracic echocardiogram Complications: None Anesthesia: Local with conscious sedation Indications for procedure: The patient is a 89 year-old male with severe, symptomatic aortic valve stenosis. The case was reviewed in the valve clinic in the valve conference and the patient was deemed a candidate for TAVR. Procedure in detail: The patient was positioned supine on the operating room table. The patient was prepped and draped in usual sterile fashion. Vascular access was gained in the right common femoral artery, right radial artery and right common femoral vein. Systemic heparin 100 mg/kg was given. Please refer to the cardiology dictation for placement of wires and sheaths. Temporary ventricular pacing wire was placed into the right ventricle using fluoroscopic guidance. After determination of the deployment angle the expandable sheath was placed through the right femoral artery. The aortic valve was then crossed using a straight wire. This wire was exchanged for an Amplatz Extra Stiff wire for placement of the prosthesis. The valve was introduced over the wire through the E sheath into the descending thoracic aorta where it was mounted on the balloon. This was then passed across the aortic arch and the aortic valve annulus. The valve was deployed under rapid ventricular pacing. It appeared to be well seated. Echocardiogram confirmed good position, no paravalvular leak, and appropriate gradients. The deployment device was removed. Protamine was then given to reverse the systemic effects of heparin and the patient was subsequently decannulated and transferred stable to the recovery room. She tolerated the procedure well. Disposition: Stable to ICU Tam Cervantes DO FACS Cardiothoracic Surgery Normal [facility] US Heart Transthoracicon Ao Root Index 2.04 cm/m2 [facility] Aortic Root 3.9 cm [facility] Aortic Sinus Valsalva 3.9 cm [facility] Aortic Sinus Valsalva Index 2.04 cm/m2 [facility] Aortic valve Mean systole pressure gradient by US.doppler derived full Bernoulli 5 mmHg [facility] Aortic valve Orifice area by US 3.8 cm2 [facility] Aortic valve Peak systolic flow by US.doppler 1.1 m/s [facility] Ascending Aorta 3.2 cm [facility] Ascending Aorta Index 1.68 cm/m2 [facility] AV Area (Pre-TAVR) 0.8 cm2 [facility] Health AV Area by Peak Velocity 2.6 cm2 [facility] Health AV Area by Peak Velocity 57.7 cm2 [facility] Health AV Area by VTI 2.6 cm2 [facility] Health AV Mean Gradient (Pre-TAVR) 39 [facility] Peak Gradient 9 mmHg [facility] Health AV Peak Gradient (Pre-TAVR) 51 mmHg [facility] Peak Velocity 1.5 m/s [facility] AV Peak Velocity (Pre-TAVR) 3.6 m/s [facility] AV Velocity Ratio 0.67 [facility] AV VTI 30.2 cm [facility] BRYAN/BSA VTI 1.4 cm2/m2 [facility] Fractional Shortening 2D 29 % 28 - 44 % [facility] Interpretation and review of laboratory results Abnormal [facility] IVSd 1.2 cm Abnormal 0.6 - 1.0 cm [facility] LV EDV A4C 114 mL [facility] LV EDV Index A4C 60 mL/m2 [facility] LV Ejection Fraction A4C 70 % [facility] LV ESV A4C 35 mL [facility] LV ESV Index A4C 18 mL/m2 [facility] LV Mass 2D 167.4 g 88 - 224 g [facility] LV Mass 2D Index 87.7 g/m2 49 - 115 g/m2 [facility] LV RWT Ratio 0.52 [facility] LVIDd 4.2 cm 4.2 - 5.9 cm [facility] LVIDd Index 2.2 cm/m2 [facility] LVIDs 3 cm [facility] LVIDs Index 1.57 cm/m2 [facility] LVOT Cardiac Output 6.4 liter/mi nut e [facility] LVOT Diameter 2.2 cm [facility] LVOT Mean Gradient 2 mmHg [facility] LVOT Peak Gradient 4 mmHg [facility] LVOT Peak Velocity 1 m/s [facility] LVOT Stroke Volume Index 40.6 mL/m2 [facility] LVOT SV 77.5 ml [facility] LVOT VTI 20.4 cm [facility] LVOT:AV VTI Index 0.68 [facility] LVPWd 1.1 cm Abnormal 0.6 - 1.0 cm [facility] Sinotubular Junction 2.9 cm [facility] Left Ventricle: Left ventricle size is normal. Mildly increased wall thickness. Hyperdynamic left ventricular systolic function. The EF by visual approximation is >75%. Normal wall motion. Right Ventricle: Right ventricle size is normal. Normal systolic function. Aortic Valve: Lo Maury 3 Ultra bioprosthetic aortic valve that is well-seated with a size of 23 mm. AV mean gradient is 5 mmHg. No regurgitation. No paravalvular regurgitation. No stenosis. Normal prosthetic gradient. AV mean gradient is 5 mmHg. AV peak velocity is 1.5 m/s. AV area by continuity VTI is 2.6 cm2. Aorta: Normal sized ascending aorta. Mildly dilated sinuses of Valsalva. Sinuses of Valsalva diameter is 3.9 cm. Ao ascending diameter is 3.2 cm. Left Ventricle Left ventricle size is normal. Mildly increased wall thickness. Hyperdynamic left ventricular systolic function. The EF by visual approximation is >75%. Normal wall motion. Right Ventricle Right ventricle size is normal. Normal systolic function. Mitral Valve Valve structure is normal. Trace regurgitation. Tricuspid Valve Valve structure is normal. Trace regurgitation. Aortic Valve Lo Maury 3 Ultra bioprosthetic aortic valve that is well-seated with a size of 23 mm. AV mean gradient is 5 mmHg. No regurgitation. No paravalvular regurgitation. No stenosis. Normal prosthetic gradient. AV mean gradient is 5 mmHg. AV peak velocity is 1.5 m/s. AV area by continuity VTI is 2.6 cm2. Ascending Aorta Normal sized ascending aorta. Mildly dilated sinuses of Valsalva. Sinuses of Valsalva diameter is 3.9 cm. Ao ascending diameter is 3.2 cm. Pericardium Evidence of prominent epicardial fat. No pericardial effusion. Study Details Image quality: poor. Heart rate: 84 bpm. Blood pressure: 154/92 mmHg. Technical qualifiers: Technically difficult study with poor endocardial visualization, technically difficult study due to low parasternal window and procedure performed with the patient in a supine position. No contrast was given. [facility] Vital signsOrdered By: Gabriela Grace on 12-23-2024 Heart rate 77 /min bpm [facility] [employer] Work Phone: Absolute lymphocyte countOrd ered By: Otto Subramanian on 12-20-2024 Lymphocytes Auto (Unsp spec) [#/Vol] 0.54 10*3/uL Low 0.83-4.51 [facility] Absolute neutrophil countOrd ered By: Otto Subramanian on 12-20-2024 Neutrophils (Bld) [#/Vol] 5.0 10*3/uL 2.0-7.7 [facility] Anion gap in Serum or Plasma Ordered By: Otto Subramanian on 12-20-2024 Anion gap [Moles/Vol] 12 mmol/L 5-15 [facility] Automated lymphocyte count a s percentage of total leukocytesOrdered By: Otto Subramanian on 12-20-2024 Lymphocytes/100 WBC Auto (Unsp spec) 8.2 % Low 19-41 [facility] BUN/creatinine ratioOrdered By: Otto Subramanian on 12-20-2024 Urea nitrogen/Creatinine [Mass ratio] 19.3 mg/mg 01-06 [facility] Basophil percentageOrdered B y: Otto Subramanian on 12-20-2024 Basophils/100 WBC (Bld) 0.8 % 0-1 [facility] Bilirubin, totalOrdered By: Otto Subramanian on 12-20-2024 Bilirubin [Mass/Vol] 0.72 mg/dL 0.00-1.30 [facility] CBC W/Diff, Automatedon Absolute Lymph 0.54 X10 3/uL Low 0.83-4.51 [facility] Comment on above: Performed By: #### L 100.0100, L500.4050 ####[facility] [address] [place], [address] Absolute Neut 5.0 X10 3/uL Normal 2.0-7.7 [facility] Comment on above: Performed By: #### L 100.0100, L500.4050 ####[facility] [address] [place], [address] Basophils/100 WBC (Bld) 0.8 % Normal 0-1 [facility] Comment on above: Performed By: #### L 100.0100, L500.4050 ####[facility] [address] [place], [address] Eosinophils/100 WBC (Bld) 3.0 % Normal 0-5 [facility] Comment on above: Performed By: #### L 100.0100, L500.4050 ####[facility] [address] [place], [address] Erythrocyte distribution width (RBC) [Ratio] 13.1 % Normal 11.6-14.6 [facility] Comment on above: Performed By: #### L 100.0100, L500.4050 ####[facility] [address] [place], [address] Hematocrit (Bld) [Volume fraction] 39.0 % Low 40-54 [facility] Comment on above: Performed By: #### L 100.0100, L500.4050 ####[facility] [address] [place], [address] Hemoglobin (Bld) [Mass/Vol] 12.6 g/dL Low 13.0-16.5 [facility] Comment on above: Performed By: #### L 100.0100, L500.4050 ####[facility] [address] [place], [address] IG% 0.900 Normal 0.0-0.9 [facility] Comment on above: Result Comment: IG% - Immature Granulocytes (promyelocytes, myelocytes and metamyelocytes) > 1% indicates that a LEFT SHIFT is Present. Performed By: #### L 100.0100, L500.4050 ####[facility] [address] [place], [address] Lymphocytes/100 WBC (Bld) 8.2 % Low 19-41 [facility] Comment on above: Performed By: #### L 100.0100, L500.4050 ####[facility] [address] [place], [address] MCH (RBC) [Entitic mass] 31.3 pg Normal 27.0-32.0 [facility] Comment on above: Performed By: #### L 100.0100, L500.4050 ####[facility] [address] [place], [address] MCHC (RBC) [Mass/Vol] 32.3 g/dL Normal 32-36 [facility] Comment on above: Performed By: #### L 100.0100, [id number] ####[facility] [address] [place], [address] MCV (RBC) [Entitic vol] 97.0 fL High 80-94 [facility] Comment on above: Performed By: #### L 100.0100, [id number] ####[facility] [address] [place], [address] Monocytes/100 WBC (Bld) 11.1 % High 0-10 [facility] Comment on above: Performed By: #### L 100.0100, [id number] ####[facility] [address] [place], [address] Neutrophils/100 WBC (Bld) 76.0 % High 47-70 [facility] Comment on above: Performed By: #### L 100.0100, [id number] ####[facility] [address] [place], [address] Nucleated RBC (Bld) [#/Vol] 0 10*3/uL Normal 0-5 [facility] Comment on above: Performed By: #### L 100.0100, [id number] ####[facility] [address] [place], [address] Platelet mean volume (Bld) [Entitic vol] 10.3 fL Normal 6.2-12.0 [facility] Comment on above: Performed By: #### L 100.0100, L500.4050 ####[facility] [address] [place], [address] Platelets (Bld) [#/Vol] 261 10*3/uL Normal 150-450 [facility] Comment on above: Performed By: #### L 100.0100, [id number] ####[facility] [address] [place], [address] RBC (Bld) [#/Vol] 4.02 10*6/uL Low 4.6-6.2 [facility] Comment on above: Performed By: #### L 100.0100, [id number] ####[facility] [address] [place], [address] RDW SD 47.0 fl High 35.1-43.9 [facility] Comment on above: Performed By: #### L 100.0100, [id number] ####[facility] [address] [place], [address] WBC (Bld) [#/Vol] 6.6 10*3/uL Normal 4.4-11.0 [facility] Comment on above: Performed By: #### L 100.0100, [id number] ####[facility] [address] [place], [address] Carbon dioxide, total [Moles /volume] in Central venous bloodOrdered By: Otto Subramanian on 12-20-2024 CO2 [Moles/Vol] 27.0 mmol/L 21.0-32.0 [facility] Chloride assayOrdered By: Edgar Subramanian on 12-20-2024 Chloride [Moles/Vol] 104 mmol/L 98-108 [facility] Comprehensive Metabolic Prof ilon 12-20-2024 Albumin [Mass/Vol] 3.9 g/dL Normal 3.4-4.8 [facility] Comment on above: Performed By: #### L 100.0100, [id number] ####[facility] [address] [place], [address] Albumin/Globulin [Mass ratio] 1.8 {ratio} Normal 0.9-2.4 [facility] Comment on above: Performed By: #### L 100.0100, L500.4050 ####[facility] [address] [place], [address] ALK PHOS 74 U/L Normal 40-129 [facility] Comment on above: Performed By: #### L 100.0100, L500.4050 ####[facility] [address] [place], [address] ALT [Catalytic activity/Vol] 7 U/L Normal <=46 [facility] Comment on above: Performed By: #### L 100.0100, [id number] ####[facility] [address] [place], [address] AST [Catalytic activity/Vol] 19 U/L Normal <=37 [facility] Comment on above: Performed By: #### L 100.0100, [id number] ####[facility] [address] [place], [address] Bilirubin [Mass/Vol] 0.72 mg/dL Normal 0.00-1.30 [facility] Comment on above: Performed By: #### L 100.0100, [id number] ####[facility] [address] [place], [address] BUN/CRE 19.3 RATIO Normal 10-20 [facility] Comment on above: Performed By: #### L 100.0100, [id number] ####[facility] [address] [place], [address] Calcium [Mass/Vol] 9.2 mg/dL Normal 7.6-11.0 [facility] Comment on above: Performed By: #### L 100.0100, [id number] ####[facility] [address] [place], [address] Chloride [Moles/Vol] 104 mmol/L Normal 98-108 [facility] Comment on above: Performed By: #### L 100.0100, [id number] ####[facility] [address] [place], [address] CO2 [Moles/Vol] 27.0 mmol/L Normal 21.0-32.0 [facility] Comment on above: Performed By: #### L 100.0100, L500.4050 ####[facility] [address] [place], [address] Creatinine [Mass/Vol] 1.07 mg/dL Normal 0.70-1.20 [facility] Comment on above: Performed By: #### L 100.0100, L500.4050 ####[facility] [address] [place], [address] GAP 12 Normal 5-15 [facility] Comment on above: Performed By: #### L 100.0100, L500.4050 ####[facility] [address] [place], [address] GFR/1.73 sq M.predicted among non-blacks MDRD (S/P/Bld) [Vol rate/Area] 67 mL/min/{1.73_m2} Normal >60 [facility] Comment on above: Result Comment: mL/m in/1.73m2 CKD-EPI Creatinine Equation (2020) Performed By: #### L 100.0100, L500.4050 ####[facility] [address] [place], [address] Globulin (S) [Mass/Vol] 2.2 g/dL Normal 2.2-4.2 [facility] Comment on above: Performed By: #### L 100.0100, L500.4050 ####[facility] [address] [place], [address] Glucose [Mass/Vol] 108 mg/dL High 70-99 [facility] Comment on above: Performed By: #### L 100.0100, L500.4050 ####[facility] [address] [place], [address] Potassium [Moles/Vol] 3.4 mmol/L Normal 3.3-5.1 [facility] Comment on above: Performed By: #### L 100.0100, L500.4050 ####[facility] [address] [place], [address] Sodium [Moles/Vol] 143 mmol/L Normal 133-145 [facility] Comment on above: Performed By: #### L 100.0100, L500.4050 ####[facility] [address] [place], [address] T PROT 6.1 g/dL Normal 5.9-8.4 [facility] Comment on above: Performed By: #### L 100.0100, L500.4050 ####[facility] [address] [place], [address] Urea nitrogen [Mass/Vol] 21 mg/dL High 4-19 [facility] Comment on above: Performed By: #### L 100.0100, L500.4050 ####[facility] [address] [place], [address] Eosinophil percentageOrdered By: Otto Subramanian on 12-20-2024 Eosinophils/100 WBC (Bld) 3.0 % 0-5 [facility] Erythrocyte distribution wid th ratioOrdered By: Otto Subramanian on 12-20-2024 Erythrocyte distribution width (RBC) [Ratio] 13.1 % 11.6-14.6 [facility] Erythrocyte distribution wid th standard deviationOrdered By: Otto Subramanian on 12-20-2024 Erythrocyte distribution width (RBC) [Ratio] 47.0 fl High 35.1-43.9 [facility] Glomerular filtration rate ( GFR) estimation/1.73 sq m using serum, plasma, or whole bOrdered By: Otto Subramanian on 12-20-2024 GFR/1.73 sq M.predicted among non-blacks MDRD (S/P/Bld) [Vol rate/Area] 67 mL/min/{1.73_m2} >60 [facility] Comment on above: mL/min/1.73m2 CKD-EP I Creatinine Equation (2020) Hematocrit Auto (Bld) [Volum e fraction]Ordered By: Otto Subramanian on 12-20-2024 Hematocrit (Bld) [Volume fraction] 39.0 % Low 40-54 [facility] Hemoglobin measurementOrdere d By: Otto Subramanian on 12-20-2024 Hemoglobin (Bld) [Mass/Vol] 12.6 g/dL Low 13.0-16.5 [facility] Immature granulocytes/100 WB C Auto (Bld)Ordered By: Otto Subramanian on 12-20-2024 Immature granulocytes/100 WBC (Bld) 0.900 % 0.0-0.9 [facility] Comment on above: IG% - Immature Granu locytes (promyelocytes, myelocytes and metamyelocytes) > 1% indicates that a LEFT SHIFT is Present. Laboratory - Chemistry and C hemistry - challengeOrdered By: Otto Subramanian on 12-20-2024 AST [Catalytic activity/Vol] 19 U/L <38 [facility] MCV (mean corpuscular volume ) determinationOrdered By: Otto Subramanian on 12-20-2024 MCV (RBC) [Entitic vol] 97.0 fL High 80-94 [facility] Mean corpuscular hemoglobin (MCH) determinationOrdered By: Otto Subramanian on 12-20-2024 MCH (RBC) [Entitic mass] 31.3 pg 27.0-32.0 [facility] Mean corpuscular hemoglobin concentration (MCHC) determinationOrdered By: Otto Subramanian on 12-20-2024 MCHC (RBC) [Mass/Vol] 32.3 g/dL 32-36 [facility] Mean platelet volume determi nationOrdered By: Otto Subramanian on 12-20-2024 Platelet mean volume (Bld) [Entitic vol] 10.3 fL 6.2-12.0 [facility] Monocyte percentageOrdered B y: Otto Subramanian on 12-20-2024 Monocytes/100 WBC (Bld) 11.1 % High 0-10 [facility] Neutrophil percentageOrdered By: Otto Subramanian on 12-20-2024 Neutrophils/100 WBC (Bld) 76.0 % High 47-70 [facility] Nucleated red blood cell per centageOrdered By: Otto Subramanian on 12-20-2024 Nucleated RBC/100 WBC (Bld) [Ratio] 0 % 0-5 [facility] Platelet countOrdered By: Edgar Subramanian on 12-20-2024 Platelets (Bld) [#/Vol] 261 10*3/uL 150-450 [facility] Potassium measurement (mass/ volume)Ordered By: Otto Subramanian on 12-20-2024 Potassium (Unsp spec) [Mass/Vol] 3.4 mmol/L 3.3-5.1 [facility] RBC Auto (Bld) [#/Vol]Ordere d By: Otto Subramanian on 12-20-2024 RBC (Bld) [#/Vol] 4.02 10*6/uL Low 4.6-6.2 [facility] Serum creatinine measurement (mass/volume)Ordered By: Otto Subramanian on 12-20-2024 Creatinine [Mass/Vol] 1.07 mg/dL 0.70-1.20 [facility] Serum globulin measurementOr dered By: Otto Subramanian on 12-20-2024 Globulin (S) [Mass/Vol] 2.2 g/dL 2.2-4.2 [facility] Serum glucose measurement (m ass/volume)Ordered By: Otto Subramanian on 12-20-2024 Glucose [Mass/Vol] 108 mg/dL High 70-99 [facility] Serum or plasma alanine workman otransferase (ALT) measurementOrdered By: Otto Subramanian on 12-20-2024 ALT [Catalytic activity/Vol] 7 U/L <47 [facility] Serum or plasma albumin lilly urement (mass/volume)Ordered By: Otto Subramanian on 12-20-2024 Albumin [Mass/Vol] 3.9 g/dL 3.4-4.8 [facility] Serum or plasma albumin/glob ulin mass ratioOrdered By: Otto Subramanian on 12-20-2024 Albumin/Globulin [Mass ratio] 1.8 {ratio} 0.9-2.4 [facility] Serum or plasma alkaline fiordaliza sphatase measurementOrdered By: Otto Subramanian on 12-20-2024 ALP [Catalytic activity/Vol] 74 U/L 40-129 [facility] Serum or plasma calcium lilly urement (mass/volume)Ordered By: Otto Subramanian on 12-20-2024 Calcium [Mass/Vol] 9.2 mg/dL 7.6-11.0 [facility] Serum or plasma urea nitroge n measurement (mass/volume)Ordered By: Otto Subramanian on 12-20-2024 Urea nitrogen [Mass/Vol] 21 mg/dL High 4-19 [facility] Sodium levelOrdered By: Otto Subramanian on 12-20-2024 Sodium [Moles/Vol] 143 mmol/L 133-145 [facility] Total proteinOrdered By: Kassy Subramanian on 12-20-2024 Protein [Mass/Vol] 6.1 g/dL 5.9-8.4 [facility] White blood cell (WBC) count Ordered By: Otto Subramanian on 12-20-2024 WBC (Bld) [#/Vol] 6.6 10*3/uL 4.4-11.0 [facility] CBC WITH AUTO DIFFERENTIALon 12-12-2024 Basophils (Bld) [#/Vol] 0.0 10*3/uL Normal 0.0-0.2 [facility] Comment on above: Performed By: #### L [id number] #### Computer Network Specialist: CARLA SOLORZANO ([phone]) [facility]) [address] [place] [address] Basophils/100 WBC (Bld) 0.5 % Normal 0.0-2.0 [facility] Comment on above: Performed By: #### L [id number] #### Computer Network Specialist: CARLA SOLORZANO ([phone]) [facility]) [address] [place] [address] Eosinophils (Bld) [#/Vol] 0.2 10*3/uL Normal 0.0-0.5 [facility] Comment on above: Performed By: #### L [id number] #### Computer Network Specialist: CARLA SOLORZANO ([phone]) [facility]) [address] [place] [address] Eosinophils/100 WBC (Bld) 2.7 % Normal 0.0-6.0 [facility] Comment on above: Performed By: #### L [id number] #### Computer Network Specialist: CARLA SOLORZANO ([phone]) [facility]) [address] [place] [address] Erythrocyte distribution width (RBC) [Ratio] 13.3 % Normal 11.5-15.0 [facility] Comment on above: Performed By: #### L [id number] #### Computer Network Specialist: CARLA SOLORZANO ([phone]) [facility]) [address] [place] [address] Hematocrit (Bld) [Volume fraction] 37.5 % Low 40.0-52.0 [facility] Comment on above: Performed By: #### L [id number] #### Computer Network Specialist: CARLA SOLORZANO ([phone]) [facility]) [address] [place] [address] Hemoglobin (Bld) [Mass/Vol] 11.9 g/dL Low 13.0-18.0 [facility] Comment on above: Performed By: #### L [id number] #### Computer Network Specialist: CARLA SOLORZANO ([phone]) [facility]) [address] [place] [address] IMMATURE GRANS % 0.9 % Normal 0.0-2.0 [facility] Comment on above: Performed By: #### L [id number] #### Computer Network Specialist: CARLA SOLORZANO ([phone]) [facility]) [address] [place] [address] IMMATURE GRANS ABSOLUTE 0.1 10*3/uL High <0.1 [facility] Comment on above: Performed By: #### L [id number] #### Computer Network Specialist: CARLA SOLORZANO ([phone]) [facility]) [address] [place] [address] Lymphocytes (Bld) [#/Vol] 0.7 10*3/uL Low 1.0-4.3 [facility] Comment on above: Performed By: #### L [id number] #### Computer Network Specialist: CARLA SOLORZANO ([phone]) [facility]) [address] [place] [address] [place] Lymphocytes/100 WBC (Bld) 9.0 % Low 15.0-45.0 [facility] Comment on above: Performed By: #### L [id number] #### Computer Network Specialist: CARLA SOLORZANO ([phone]) [facility]) [address] [place] [address] MCH (RBC) [Entitic mass] 31.0 pg Normal 26.0-34.0 [facility] Comment on above: Performed By: #### L [id number] #### Computer Network Specialist: CARLA SOLORZANO ([phone]) [facility]) [address] [place] [address] MCHC 31.7 % Normal 30.5-36.0 [facility] Comment on above: Performed By: #### L [id number] #### Computer Network Specialist: CARLA SOLORZANO ([phone]) [facility]) [address] [place] [address] MCV (RBC) [Entitic vol] 97.7 fL Normal 77.0-99.0 [facility] Comment on above: Performed By: #### L [id number] #### Computer Network Specialist: CARLA SOLORZANO ([phone]) [facility]) [address] [place] [address] Monocytes (Bld) [#/Vol] 0.8 10*3/uL Normal 0.0-0.9 [facility] Comment on above: Performed By: #### L [id number] #### Computer Network Specialist: CARLA SOLORZANO ([phone]) [facility]) [address] [place] [address] Monocytes/100 WBC (Bld) 9.7 % Normal 5.0-13.0 [facility] Comment on above: Performed By: #### L [id number] #### Computer Network Specialist: CARLA SOLORZANO ([phone]) [facility]) [address] [place] [address] NEUTROPHILS ABSOLUTE 6.1 10*3/uL Normal 1.8-7.5 [facility] Comment on above: Performed By: #### L [id number] #### Computer Network Specialist: CARLA [phone]) [facility] ([facility]) [address] [place] [address] Neutrophils/100 WBC (Bld) 77.2 % Normal 38.0-82.0 [facility] Comment on above: Performed By: #### L [id number] #### Computer Network Specialist: CARLA SOLORZANO ([phone]) [facility] [address] [place] [address] NRBC 0.0 /100 WBCs Normal 0.0-2.0 [facility] Comment on above: Performed By: #### L [id number] #### Computer Network Specialist: CARLA SOLORZANO ([phone]) [facility] ([facility]) [address] [place] [address] Platelet mean volume (Bld) [Entitic vol] 10.4 fL Normal 9.0-12.7 [facility] Comment on above: Performed By: #### L [id number] #### Computer Network Specialist: CARLA SOLORZANO ([phone]) [facility] [address] [place] [address] [place] Platelets (Bld) [#/Vol] 216 10*3/uL Normal 140-440 [facility] Comment on above: Performed By: #### L [id number] #### Computer Network Specialist: CARLA SOLORZANO ([id number]) [facility] ([facility]) [address] [place] [address] RBC (Bld) [#/Vol] 3.84 10*6/uL Low 4.40-5.90 [facility] Comment on above: Performed By: #### L [id number] #### Computer Network Specialist: CARLA SOLORZANO ([phone]) [facility] ([facility]) [address] [place] [address] [place] WBC (Bld) [#/Vol] 7.9 10*3/uL Normal 3.6-10.7 [facility] Comment on above: Performed By: #### L [id number] #### Computer Network Specialist: CARLA SOLORZANO ([phone]) [facility] [address] COMPREHENSIVE METABOLIC PANE Omar 12-12-2024 Albumin [Mass/Vol] 3.0 g/dL Low 3.4-4.8 [facility] Comment on above: Performed By: #### L AB17 #### Computer Network Specialist: CARLA SOLORZANO ([phone]) [facility] ([facility]) [address] [place] [address] ALP [Catalytic activity/Vol] 75 U/L Normal 40-150 [facility] Comment on above: Performed By: #### L AB17 #### Computer Network Specialist: CARLA SOLORZANO ([phone]) [facility] ([facility]) [address] [place] [address] ALT [Catalytic activity/Vol] 9 U/L Normal <40 [facility] Comment on above: Performed By: #### L AB17 #### Computer Network Specialist: CARLA SOLORZANO ([phone]) [facility] ([facility]) [address] [place] [address] Anion gap [Moles/Vol] 6 mmol/L Normal 3-13 [facility] Comment on above: Performed By: #### L AB17 #### Computer Network Specialist: CARLA SOLORZANO ([phone]) [facility] ([facility]) [address] [place] [address] AST [Catalytic activity/Vol] 22 U/L Normal <34 [facility] Comment on above: Performed By: #### L AB17 #### Computer Network Specialist: CARLA SOLORZANO ([phone]) [facility] ([facility]) [address] [place] [address] Bilirubin [Mass/Vol] 0.6 mg/dL Normal <1.2 [facility] Comment on above: Performed By: #### L AB17 #### Computer Network Specialist: CARLA SOLORZANO ([phone]) [facility] ([facility]) [address] [place] [address] Calcium [Mass/Vol] 8.6 mg/dL Low 8.8-10.0 [facility] Comment on above: Performed By: #### L AB17 #### Computer Network Specialist: CARLA SOLORZANO ([phone]) [facility] [address] [place] [address] Chloride [Moles/Vol] 106 mmol/L Normal 98-107 [facility] Comment on above: Performed By: #### L AB17 #### Computer Network Specialist: CARLA SOLORZANO ([phone]) [facility] [address] [place] [address] CO2 [Moles/Vol] 27 mmol/L Normal 23-31 [facility] Comment on above: Performed By: #### L AB17 #### Computer Network Specialist: CARLA SOLORZANO ([phone]) [facility]) [address] [place] [address] Creatinine [Mass/Vol] 0.94 mg/dL Normal 0.72-1.25 [facility] Comment on above: Performed By: #### L AB17 #### Computer Network Specialist: CARLA SOLORZANO ([phone]) [facility] [address] [place] [address] GLOMERULAR FILTRATION RATE ML/MIN/1.73 SQ M.PREDICTED 78.0 mL/min/1.73m*2 Normal >60.0 [facility] Comment on above: Result Comment: Calc ulation based on the Chronic Kidney Disease Epidemiology Collaboration (CKD-EPI) equation refit without adjustment for race Performed By: #### L AB17 #### Computer Network Specialist: CARLA SOLORZANO ([phone]) [facility] ([facility]) [address] [place] [address] [place] Glucose [Mass/Vol] 97 mg/dL Normal 82-115 [facility] Comment on above: Performed By: #### L AB17 #### Computer Network Specialist: CARLA SOLORZANO ([phone]) [facility]) [address] [place] [address] [place] Potassium [Moles/Vol] 4.8 mmol/L Normal 3.5-5.1 [facility] Comment on above: Result Comment: [facility] potassium values may be up to 0.5 mmol/L lower than serum values. Performed By: #### L AB17 #### Computer Network Specialist: CARLA SOLORZANO ([phone]) [facility]) [address] [place] [address] Protein [Mass/Vol] 5.5 g/dL Low 6.4-8.3 [facility] Comment on above: Performed By: #### L AB17 #### Computer Network Specialist: CARLA SOLORZANO ([phone]) [facility]) [address] [place] [address] Sodium [Moles/Vol] 139 mmol/L Normal 136-145 [facility] Comment on above: Performed By: #### L AB17 #### Computer Network Specialist: CARLA SOLORZANO ([phone]) [address] Urea nitrogen [Mass/Vol] 23 mg/dL Normal 9-23 [facility] Comment on above: Performed By: #### L AB17 #### Computer Network Specialist: CARLA SOLORZANO ([phone]) [address] ANGIOGRAM TAVRon 12-13-19 CT ANGIOGRAM TAVR Patient Name: ALEX CARPENTER : 1935 Exam Date/Time: 12/12/2024 10:29 Procedure: CT ANGIOGRAM TAVR Ordering Provider: SALAS PETER Reason For Exam: AORTIC VALVE STENOSIS --------ADDENDUM #1 -------- This is a radiology addendum for the noncardiovascular findings on the CT images of the chest, abdomen, and pelvis obtained for this examination: There is linear atelectasis or scarring within the left and right lung bases. Mild bronchiectasis is present within the bilateral lower lobes. No focal consolidation is seen. There is no pleural effusion or pneumothorax. There is a 5 mm subpleural nodule within the right middle lobe on axial image 236 of 811. No lymphadenopathy is seen within the chest. The liver, gallbladder, pancreas, spleen, adrenal glands, and kidneys appear within normal limits. No lymphadenopathy is seen within the abdomen or pelvis. The urinary bladder appears grossly normal. The prostate has been removed. There is a large amount of packed stool within the rectum which measures 8.7 cm in greatest diameter. There is mild diverticulosis within the distal colon. Small bowel loops do not appear abnormally dilated or thickened. There is a tiny fat-containing periumbilical hernia. There is abnormal sclerosis within the posterior aspect of the left iliac wing. There is also abnormal sclerosis within the lateral aspect of the right seventh rib. There are multiple old bilateral rib fractures. IMPRESSION: 5 mm subpleural nodule within the right middle lobe. No prior examinations are available. Please see Fleischner Society guidelines below for follow-up recommendations. Fairly large amount of packed stool within the rectum measuring up to 8.7 cm in greatest diameter. Consider constipation. Abnormal sclerosis within the posterior aspect of the left iliac wing lateral aspect of the right seventh rib, suspicious for osseous metastatic disease. Whole-body bone scan may be helpful for additional evaluation. Please see Dr. Baker's original report for cardiovascular findings and measurements. 2017 - UPDATED FLEISCHNER SOCIETY GUIDELINES FOR MANAGEMENT OF SMALL PULMONARY NODULES DETECTED ON CT Note: Recommendations do not apply for lung cancer screening, patients with immunosuppression or with known cancer. Dimensions are average of long and short axis rounded to the millimeter SOLITARY NODULE: LOW RISK PATIENT <6mm - No routine follow up SOLITARY NODULE: HIGH RISK PATIENT <6mm - Optional CT at 12 months (suspicious morphology or upper lobe) Report Dictated on Electronically Signed By: Anmol Ferrari MD Electronically Signed Date/Time: 12/12/2024 9:04 PM EDT --------ORIGINAL REPORT -------- [facility] Cardiovascular CTA Indication: 89 year-old man with severe aortic stenosis, being evaluated for transcatheter aortic valve implantation. Technique: Computed tomography of the heart, thoracoabdominal aorta, and iliofemoral system was performed using a [employer] One 320 detector scanner. Images were reconstructed and analyzed on an advanced post-processing 3D workstation. Contrast: 100 mL Total DLP: 120.6 mGy-cm Study Quality: Excellent Extracardiac Findings: For a complete description of extracardiac structures, please refer to the accompanying radiology addendum. Cardiac Chambers: The pericardium is unremarkable. The left and right ventricles are normal in size. The left atrium is moderately dilated. The left atrial appendage is normal in appearance. The right atrium is mildly dilated. Coronary Arteries: The coronaries have normal origins. There is a pattern of right coronary dominance. There is evidence of coronary atherosclerosis and prior intervention. The present study was not optimized for evaluation of the coronary arteries. Mitral Valve: The mitral annulus has no calcification.The anterior mitral leaflet is free of the LVOT during systole. Aortic Valve: The aortic valve is tricuspid. Predicted deployment angle (3-cusp view): DIETZ 8, CAU 9 Aortic Annulus: Dimensions: 2.82 x 2.49 cm Area: 5.32 cm2 Perimeter: 82.7 mm Left coronary height: 16.2 mm Right Coronary height: 17.7 mm Aorta and Iliofemoral System: All vascular measurements are minimal luminal diameters using a centerline technique. Aortic Root and Thoracic Aorta: Mild non-calcific atheroma in the mid-ascending aorta Sinuses of Valsalva: 3.2 x 3.3 x 3.3 cm by [id number] Sinotubular junction: 3.5 x3.1 cm Mid ascending Aorta: 3.6 x 3.5 cm Abdominal Aorta: Infrarenal: 16 mm Bifurcation: 15 mm Right Iliac System: Calcification: Minimal. Tortuosity: mild. RCIA: 10 mm REIA: 8 mm RCFA: 6 mm. Rim of calcification on the medial and posterior aspect of the vessel. Left Iliac System: Calcification: mild. Tortuosity: mild. LCIA: 11 mm AURA: 9 mm LCFA: 7 mm CONCLUSIONS: 1. Calcific aortic stenosis, with descrip (more content not included)... Normal [facility] CT Chest WO and CT angiogram Coronary arteries W contrast Alisa 12-12-2024 Addendum by Anmol Ferrari MD on 12/12/2024 9:04 PM EDT Patient Name: ALEX CARPENTER : 1935 Exam Date/Time: 12/12/2024 10:29 Procedure: CT ANGIOGRAM TAVR Ordering Provider: SALAS PETER Reason For Exam: AORTIC VALVE STENOSIS --------ADDENDUM #1 -------- This is a radiology addendum for the noncardiovascular findings on the CT images of the chest, abdomen, and pelvis obtained for this examination: There is linear atelectasis or scarring within the left and right lung bases. Mild bronchiectasis is present within the bilateral lower lobes. No focal consolidation is seen. There is no pleural effusion or pneumothorax. There is a 5 mm subpleural nodule within the right middle lobe on axial image 236 of 811. No lymphadenopathy is seen within the chest. The liver, gallbladder, pancreas, spleen, adrenal glands, and kidneys appear within normal limits. No lymphadenopathy is seen within the abdomen or pelvis. The urinary bladder appears grossly normal. The prostate has been removed. There is a large amount of packed stool within the rectum which measures 8.7 cm in greatest diameter. There is mild diverticulosis within the distal colon. Small bowel loops do not appear abnormally dilated or thickened. There is a tiny fat-containing periumbilical hernia. There is abnormal sclerosis within the posterior aspect of the left iliac wing. There is also abnormal sclerosis within the lateral aspect of the right seventh rib. There are multiple old bilateral rib fractures. IMPRESSION: 5 mm subpleural nodule within the right middle lobe. No prior examinations are available. Please see Fleischner Society guidelines below for follow-up recommendations. Fairly large amount of packed stool within the rectum measuring up to 8.7 cm in greatest diameter. Consider constipation. Abnormal sclerosis within the posterior aspect of the left iliac wing lateral aspect of the right seventh rib, suspicious for osseous metastatic disease. Whole-body bone scan may be helpful for additional evaluation. Please see Dr. Baker's original report for cardiovascular findings and measurements. 2017 - UPDATED FLEISCHNER SOCIETY GUIDELINES FOR MANAGEMENT OF SMALL PULMONARY NODULES DETECTED ON CT Note: Recommendations do not apply for lung cancer screening, patients with immunosuppression or with known cancer. Dimensions are average of long and short axis rounded to the millimeter SOLITARY NODULE: LOW RISK PATIENT <6mm - No routine follow up SOLITARY NODULE: HIGH RISK PATIENT <6mm - Optional CT at 12 months (suspicious morphology or upper lobe) Report Dictated on Electronically Signed By: Anmol Ferrari MD Electronically Signed Date/Time: 12/12/2024 9:04 PM EDT --------ORIGINAL REPORT -------- [facility] Cardiovascular CTA Indication: 89 year-old man with severe aortic stenosis, being evaluated for transcatheter aortic valve implantation. Technique: Computed tomography of the heart, thoracoabdominal aorta, and iliofemoral system was performed using a [employer] Aquilion One 320 detector scanner. Images were reconstructed and analyzed on an advanced post-processing 3D workstation. Contrast: 100 mL Total DLP: 120.6 mGy-cm Study Quality: Excellent Extracardiac Findings: For a complete description of extracardiac structures, please refer to the accompanying radiology addendum. Cardiac Chambers: The pericardium is unremarkable. The left and right ventricles are normal in size. The left atrium is moderately dilated. The left atrial appendage is normal in appearance. The right atrium is mildly dilated. Coronary Arteries: The coronaries have normal origins. There is a pattern of right coronary dominance. There is evidence of coronary atherosclerosis and prior intervention. The present study was not optimized for evaluation of the coronary arteries. Mitral Valve: The mitral annulus has no calcification.The anterior mitral leaflet is free of the LVOT during systole. Aortic Valve: The aortic valve is tricuspid. Predicted deployment angle (3-cusp view): DIETZ 8, CAU 9 Aortic Annulus: Dimensions: 2.82 x 2.49 cm Area: 5.32 cm2 Perimeter: 82.7 mm Left coronary height: 16.2 mm Right Coronary height: 17.7 mm Aorta and Iliofemoral System: All vascular measurements are minimal luminal diameters using a centerline technique. Aortic Root and Thoracic Aorta: Mild non-calcific atheroma in the mid-ascending aorta Sinuses of Valsalva: 3.2 x 3.3 x 3.3 cm by [id number] Sinotubular junction: 3.5 x3.1 cm Mid ascending Aorta: 3.6 x 3.5 cm Abdominal Aorta: Infrarenal: 16 mm Bifurcation: 15 mm Right Iliac System: Calcification: Minimal. Tortuosity: mild. RCIA: 10 mm REIA (more content not included)... [facility] [place] Patient Name: ALEX CARPENTER : 1935 Exam Date/Time: 12/12/2024 10:29 Procedure: CT ANGIOGRAM TAVR Ordering Provider: SALAS PETER Reason For Exam: AORTIC VALVE STENOSIS [facility] Cardiovascular CTA Indication: 89 year-old man with severe aortic stenosis, being evaluated for transcatheter aortic valve implantation. Technique: Computed tomography of the heart, thoracoabdominal aorta, and iliofemoral system was performed using a [employer] Aquilion One 320 detector scanner. Images were reconstructed and analyzed on an advanced post-processing 3D workstation. Contrast: 100 mL Total DLP: 120.6 mGy-cm Study Quality: Excellent Extracardiac Findings: For a complete description of extracardiac structures, please refer to the accompanying radiology addendum. Cardiac Chambers: The pericardium is unremarkable. The left and right ventricles are normal in size. The left atrium is moderately dilated. The left atrial appendage is normal in appearance. The right atrium is mildly dilated. Coronary Arteries: The coronaries have normal origins. There is a pattern of right coronary dominance. There is evidence of coronary atherosclerosis and prior intervention. The present study was not optimized for evaluation of the coronary arteries. Mitral Valve: The mitral annulus has no calcification.The anterior mitral leaflet is free of the LVOT during systole. Aortic Valve: The aortic valve is tricuspid. Predicted deployment angle (3-cusp view): DIETZ 8, CAU 9 Aortic Annulus: Dimensions: 2.82 x 2.49 cm Area: 5.32 cm2 Perimeter: 82.7 mm Left coronary height: 16.2 mm Right Coronary height: 17.7 mm Aorta and Iliofemoral System: All vascular measurements are minimal luminal diameters using a centerline technique. Aortic Root and Thoracic Aorta: Mild non-calcific atheroma in the mid-ascending aorta Sinuses of Valsalva: 3.2 x 3.3 x 3.3 cm by [id number] Sinotubular junction: 3.5 x3.1 cm Mid ascending Aorta: 3.6 x 3.5 cm Abdominal Aorta: Infrarenal: 16 mm Bifurcation: 15 mm Right Iliac System: Calcification: Minimal. Tortuosity: mild. RCIA: 10 mm REIA: 8 mm RCFA: 6 mm. Rim of calcification on the medial and posterior aspect of the vessel. Left Iliac System: Calcification: mild. Tortuosity: mild. LCIA: 11 mm AURA: 9 mm LCFA: 7 mm CONCLUSIONS: 1. Calcific aortic stenosis, with descriptive anatomy and annular / aortic root measurements as detailed above. 2. Patent bilateral iliofemoral system as detailed above. Other. Report Dictated on Electronically Signed By: Duong Baker Electronically Signed Date/Time: 12/12/2024 2:23 PM EDT [facility] Duong Baker M D / Anmol Ferrari MD - 12/12/2024 Patient Name: ALEX CARPENTER : 1935 [facility]#: [id number] Exam Date/Time: 12/12/2024 10:29 Procedure: CT ANGIOGRAM TAVR Ordering Provider: SALAS PETER Reason For Exam: AORTIC VALVE STENOSIS [facility] Cardiovascular CTA Indication: 89 year-old man with severe aortic stenosis, being evaluated for transcatheter aortic valve implantation. Technique: Computed tomography of the heart, thoracoabdominal aorta, and iliofemoral system was performed using a [employer] Aquilion One 320 detector scanner. Images were reconstructed and analyzed on an advanced post-processing 3D workstation. Contrast: 100 mL Total DLP: 120.6 mGy-cm Study Quality: Excellent Extracardiac Findings: For a complete description of extracardiac structures, please refer to the accompanying radiology addendum. Cardiac Chambers: The pericardium is unremarkable. The left and right ventricles are normal in size. The left atrium is moderately dilated. The left atrial appendage is normal in appearance. The right atrium is mildly dilated. Coronary Arteries: The coronaries have normal origins. There is a pattern of right coronary dominance. There is evidence of coronary atherosclerosis and prior intervention. The present study was not optimized for evaluation of the coronary arteries. Mitral Valve: The mitral annulus has no calcification.The anterior mitral leaflet is free of the LVOT during systole. Aortic Valve: The aortic valve is tricuspid. Predicted deployment angle (3-cusp view): DIETZ 8, CAU 9 Aortic Annulus: Dimensions: 2.82 x 2.49 cm Area: 5.32 cm2 Perimeter: 82.7 mm Left coronary height: 16.2 mm Right Coronary height: 17.7 mm Aorta and Iliofemoral System: All vascular measurements are minimal luminal diameters using a centerline technique. Aortic Root and Thoracic Aorta: Mild non-calcific atheroma in the mid-ascending aorta Sinuses of Valsalva: 3.2 x 3.3 x 3.3 cm by [id number]-rkklyesejo Sinotubular junction: 3.5 x3.1 cm Mid ascending Aorta: 3.6 x 3.5 cm Abdominal Aorta: Infrarenal: 16 mm Bifurcation: 15 mm Right Iliac System: Calcification: Minimal. Tortuosity: mild. RCIA: 10 mm REIA: 8 mm RCFA: 6 mm. Rim of calcification on the medial and posterior aspect of the vessel. Left Iliac System: Calcification: mild. Tortuosity: mild. LCIA: 11 mm AURA: 9 mm LCFA: 7 mm CONCLUSIONS: 1. Calcific aortic stenosis, with descriptive anatomy and annular / aortic root measurements as detailed above. 2. Patent bilateral iliofemoral system as detailed above. Other. Report Dictated on Electronically Signed By: Duong Baker Electronically Signed Date/Time: 12/12/2024 2:23 PM EDT [facility] Radiology Study observation (narrative) [facility] CT Chest WO and CT angiogram Coronary arteries W contrast IVOrdered By: Anmol Ferrari on 12-12-2024 [facility] 36on 12-10-2024 36 Approved [id number] 12/23-12/24/24 Scanned in under Media Calendars updated and requested on [employer] Normal [facility] 36on 12-05-2024 36 [place] [id number] ursula wynn on Availity # [id number] Normal [facility] ECG 12 lead - CLINIC PERFORM ED12-03-2024 Sinus Rhythm -Nonspecific QRS widening. -Old inferior infarct. -Nonspecific ST depression + Nonspecific T-abnormality -Nondiagnostic. [facility] 36on 11-27-2024 36 Received josesito selby to add 5th TAVR case on for 12/23. Patient scheduled for CTA on 12/12/24, reviewed fasting 4 hours prior and oral hydration protocol. Verbalized understanding. CMP completed 11/12/24. TAVR procedure, instructions reviewed with pt and family. Patient scheduled for TAVR on 12/23/24 at 2:30 pm Will report to [facility] by 12:30 pm Can park in the [address] De[address] or use [employer] parking at the [place] entrance Plan on overnight stay in the hospital Will not be able to drive for 1 week after procedure Will receive moderate sedation through the IV, will be relaxed but awake during the procedure Nothing to eat or drink after midnight Instructed to take morning medications including ASA as prescribed with small sip of water EXCEPT to HOLD furosemide/HCTZ/vitamins/ supplements morning of surgery Will call with any questions/concerns Pre-op testing done 12/12/24 Patient/family verbalized understanding. [facility] Office Visiton 11-26-2024 Follow-up visit [id number] Kvng Carpenter naun 1935 [facility] Provider Department Center 11/26/2024 [id number] CORMIER [facility] [address] No family history on file Level of Service:07644 [place] OFFICE/OUTPATIENT NEW HIGH MDM 60 MINUTES Reason for Visit and Comments: Cardiac Valve Problem [1334] New Patient [542] - Heart Valve Clinic [facility] Follow-up visit [id number] Kvng Carpenter naun 1935 [facility] 11/26/2024 [id number] SALAS [facility] [address] No family history on file Level of Service:21506 [place] OFFICE/OUTPATIENT NEW HIGH MDM 60 MINUTES Reason for Visit and Comments: Cardiac Valve Problem [1334] New Patient [542] - Heart Valve Clinic [facility] Progress Noteon 11-26-2024 Progress Note [facility] Medical Group: Cardiothoracic Surgery Multidisciplinary Heart Valve Clinic Date: 11/26/24 Patient:Alex Carpenter 1935 89 y.o. male [id number] Subjective: HPI: Alex Carpenter 89 [address] Dr[address] Bui is being evaluated for aortic valve stenosis. Echocardiogram completed on 09/16/24 showed severe aortic valve stenosis with peak/mean gradients 79/45 mm Hg. Per note, patient with past medical history significant for CAD s/p IMMANUEL (2013), aortic valve stenosis, HLD, HTN. Pt had an echocardiogram on 08/20/24 which demonstrated EF 65% and severe aortic valve stenosis with peak/mean gradients 79/45 mm Hg. Pt later had pharmacologic stress test on 09/12/24 which was normal. Pt underwent heart catheterization 10/09/24 with recommendation for TAVR eval and possible PCI to the right coronary artery. [Medical History] [Medical History] Past Medical History No past medical history on file. Blood thinner - none Transthoracic Echocardiogram 09/16/24 Pharmacologic Stress Test 09/12/24 Review of Systems Constitutional: Negative for activity change, chills, diaphoresis, fatigue and fever. HENT: Negative for nosebleeds and trouble swallowing. Eyes: Negative for discharge and visual disturbance. Respiratory: Negative for apnea, cough, chest tightness, shortness of breath and wheezing. Cardiovascular: Positive for leg swelling (bilateral ankle edema new last few months). Negative for chest pain and palpitations. Gastrointestinal: Negative for abdominal distention, abdominal pain, blood in stool, diarrhea, nausea and vomiting. Endocrine: Negative for cold intolerance and heat intolerance. Genitourinary: Negative for hematuria. Musculoskeletal: Positive for arthralgias (bilateral knee pain) and gait problem (uses cane; unsteady at times). Negative for myalgias. Skin: Negative for color change and rash. Neurological: Negative for dizziness, seizures, syncope, facial asymmetry, speech difficulty, weakness, light-headedness, numbness and headaches. Hematological: Does not bruise/bleed easily. Psychiatric/Behavioral: Negative for dysphoric mood. Allergies: Lisinopril Past Medical History: has a past medical history of Coronary artery disease, Hyperlipidemia, Hypertension, Prostate cancer (HCC), and Sleep apnea. Past Surgical History: has a past surgical history that includes Coronary stent placement (07/29/2013) and Prostatectomy (1998). Social History: reports that he has never smoked. He has never used smokeless tobacco. He reports that he does not drink alcohol and does not use drugs. Family History: family history is not on file. Medications: Prior to Admission medications Medication Sig Start Date End Date Taking? Authorizing Provider aspirin 81 MG EC tablet Take 81 mg by mouth daily. Historical Provider, atorvastatin (Lipitor) 20 MG tablet Take 20 mg by mouth. 11/06/24 Historical Provider, HHN-XWL-CJGAOMT E PO [place] 7-Nre-Rmi-Fish Oil (Fish Oil) 300-1,000 mg capsule Active 1 NMA PO DAILY January 24, 2024 1:00am 01/24/24 Historical Provider, furosemide (Lasix) 20 MG tablet Take 20 mg by mouth daily. 07/26/24 Historical Provider, UZIEDLDWYYX-RHLEHZD-PHK D PO Take by mouth. Historical Provider, hydroCHLOROthiazide 12.5 MG tablet Take 12.5 mg by mouth daily. 11/06/24 Historical ProviderMD losartan (Cozaar) 25 MG tablet Take 25 mg by mouth daily. Historical Provider, MAGnesium-Oxide 400 (240 Mg) MG tablet Take 400 mg by mouth daily. 08/13/24 Historical Provider, meloxicam (Mobic) 7.5 MG tablet Take 7.5 mg by mouth daily. 07/06/24 Historical Provider, metoprolol tartrate (Lopressor) 25 MG tablet Take 25 mg by mouth 2 times daily. 10/01/24 Historical Provider, nitroglycerin (Nitrostat) 0.[address] 0.4 mg under the tongue every 5 minutes as needed for chest pain. Historical Provider, oxybutynin XL (Ditropan-XL) 5 MG 24 hr tablet Take 5 mg by mouth daily. 02/01/22 01/17/25 Historical ProviderMD oxyCODONE-acetaminophen (Percocet) 5-325 MG tablet TAKE 1/2 TO 1 (ONE-HALF TO ONE) TABLET BY MOUTH THREE TIMES DAILY NEEDED FOR PAIN Historical Provider, Objective: BP 114/76 (BP Location: Right arm, Patient Position: Sitting, BP Cuff Size: Adult) Pulse 70 Ht 5' 6" (1.676 m) Wt 179 lb (81.2 kg) SpO2 96% BMI 28.89 kg/m? Physical Exam Vitals: BP 114/76 (BP Location: Right arm, Patient Position: Sitting, BP Cuff Size: Adult) Pulse 70 Ht 5' 6" (1.676 m) Wt 179 lb (81.2 kg) SpO2 96% BMI 28.89 kg/m? Constitutional: General: Not in acute distress. Appearance: Normal appearance. Not toxic-appearing. Ear, nose, mouth: Bilateral external ear and nose normal. Nose: Nose normal. Mouth: Appearance normal, no bleeding, moist mucus membranes Eyes: General: No scleral icterus. No discharge from bilateral eyes Extraocular Movements: Extraocular movements intact. Pupils equal and reactive b (more content not included)... Normal [facility] Progress Note [facility] [address] [facility] [id number] Dept: [phone] Dept Visit type: New : 1935 Reason for Visit: New patient, Heart Valve clinic Assessment and Plan 1. Severe aortic stenosis - CBC auto differential - Comprehensive metabolic panel - CTA Angiogram TAVR - Case Request Lever Tender: Transcatheter aortic valve replacement (TAVR), TRANSCATHETER AORTIC VALVE REPLACEMENT (TAVR) - OR - ECG 12 lead - CLINIC PERFORMED This is a very pleasant 89 y.o. male with severe and symptomatic aortic stenosis. he is in need of aortic valve replacement. Will get a CTA for anatomic planning. If favorable anatomy for transfemoral TAVR, will likely proceed with TAVR. Will pursue TAVR before coronary intervention, as his coronary disease would not increase risk of TAVR, and because is highly likely to be his symptomatic issue, and the most lifelimiting. He could be considered for the COMPLETE TAVR trial for his CAD (staged PCI vs medical therapy after TAVR). We introduced this trial to him, but will rediscuss around the time of his TAVR. This decision was made after multidisciplinary discussion, using a shared decision making strategy. CT surgery also saw patient to aide in discussion. It was a pleasure seeing your patient in the office today. Please do not hesitate to call me with any questions. Follow up in about 1 year (around 11/26/2025). Subjective HPI Alex Carpenter is a very pleasant 89 y.o. male who is here for evaluation of his aorti valve disease. his symptoms include progressive dyspnea on exertion. his most recent echo shows severe aortic stenosis with mean gradient 45mmHg. Cath showed a lesion of a small circumflex (medical management recommended) and a lesion of the RCA that was about 80%. Review of Systems Constitutional: Negative for activity change, chills, diaphoresis, fatigue and fever. HENT: Negative for nosebleeds and trouble swallowing. Eyes: Negative for discharge and visual disturbance. Respiratory: Negative for apnea, cough, chest tightness, shortness of breath and wheezing. Cardiovascular: Positive for leg swelling (bilateral ankle edema new last few months). Negative for chest pain and palpitations. Gastrointestinal: Negative for abdominal distention, abdominal pain, blood in stool, diarrhea, nausea and vomiting. Endocrine: Negative for cold intolerance and heat intolerance. Genitourinary: Negative for hematuria. Musculoskeletal: Positive for arthralgias (knee pain) and gait problem (uses cane; unsteady at times). Negative for myalgias. Skin: Negative for color change and rash. Neurological: Negative for dizziness, seizures, syncope, facial asymmetry, speech difficulty, weakness, light-headedness, numbness and headaches. Hematological: Does not bruise/bleed easily. Psychiatric/Behavioral: Negative for dysphoric mood. Allergies[1] Current Medications[2] Medical History[3] Social History Tobacco Use Smoking status: Never Smokeless tobacco: Never Substance Use Topics Alcohol use: Never Surgical History[4] Family History[5] Objective Vitals: 11/26/24 1411 BP: 114/76 BP Location: Right arm Patient Position: Sitting BP Cuff Size: Adult Pulse: 70 SpO2: 96% Weight: 179 lb (81.2 kg) Height: 5' 6" (1.676 m) Physical Exam Constitutional: General: He is not in acute distress. Appearance: He is not diaphoretic. HENT: Head: Normocephalic. Nose: Nose normal. Mouth/Throat: Mouth: Mucous membranes are moist. Pharynx: No oropharyngeal exudate. Eyes: General: No scleral icterus. Right eye: No discharge. Left eye: No discharge. Neck: Thyroid: No thyromegaly. Vascular: No carotid bruit or JVD. Cardiovascular: Rate and Rhythm: Normal rate and regular rhythm. Pulses: Normal pulses. Heart sounds: Normal heart sounds. Pulmonary: Effort: Pulmonary effort is normal. Breath sounds: Normal breath sounds. Abdominal: General: Bowel sounds are normal. There is no distension. Palpations: There is no hepatomegaly. Tenderness: There is no abdominal tenderness. Musculoskeletal: General: Normal range of motion. Cervical back: Normal range of motion. Right lower leg: No edema. Left lower leg: No edema. Skin: General: Skin is warm and dry. Neurological: Mental Status: He is oriented to person, place, and time. Psychiatric: Mood and Affect: Mood normal. Behavior: Behavior normal. Data Reviewed and Summarized No results found for: "EFBP", "PLVEF", "LVEFPHYS", "LVEF2D", EF Review of tests/labs done/ordered within my specialty: EKG in office: Review of tests/labs done/ordered outside my specialty: Independent interpretation of tests: I personally reviewed the images from Alex Carpenter's most recent TTE and cath in the office today, to help with medical decision making. My interpretation is noted in the HPI section of this note. Lashell Parker (more content not included)... Normal [facility] Progress Noteon 11-25-2024 Progress Note Alex Carpenter 89 y[address] referred by Dr. Bui is being evaluated for aortic valve stenosis. Echocardiogram completed on 09/16/24 showed severe aortic valve stenosis with peak/mean gradients 79/45 mm Hg. Per note, patient with past medical history significant for CAD s/p IMMANUEL (2013), aortic valve stenosis, HLD, HTN. Pt had an echocardiogram on 08/20/24 which demonstrated EF 65% and severe aortic valve stenosis with peak/mean gradients 79/45 mm Hg. Pt later had pharmacologic stress test on 09/12/24 which was normal. Pt underwent heart catheterization 10/09/24 with recommendation for TAVR eval and possible PCI to the right coronary artery. Medical History[1] Blood thinner - none Transthoracic Echocardiogram 09/16/24 Pharmacologic Stress Test 09/12/24 [1] No past medical history on file. Normal [facility] CBC W Auto Differential pane l (Bld)on 11-12-2024 Basophils (Bld) [#/Vol] 0.06 10*3/uL Normal <0.11 [facility] Comment on above: Order Comment: Speci men Type: BLOOD SPECIMEN Ordering Facility: [facility] Address: [address] [place] [address] Performed By: #### 4 537-7 #### [facility] CLIA [id number] [address] [place] [address] [place] Basophils/100 WBC (Bld) 0.6 % Normal [facility] Comment on above: Order Comment: Speci men Type: BLOOD SPECIMEN Ordering Facility: [facility] Address: [address] [place] [address] Performed By: #### 4 537-7 #### [facility] CLIA [id number] [address] [place] [address] [place] Differential cell count method Nom (Bld) Auto Normal [facility] Comment on above: Order Comment: Speci men Type: BLOOD SPECIMEN Ordering Facility: [facility] Address: [address] [place] [address] Performed By: #### 4 537-7 #### [facility] CLIA [id number] [address] [place] [address] [place] Eosinophils (Bld) [#/Vol] 0.14 10*3/uL Normal <0.46 [facility] Comment on above: Order Comment: Speci men Type: BLOOD SPECIMEN Ordering Facility: [facility] Address: [address] [place] [address] Performed By: #### 4 537-7 #### [facility] CLIA [id number] [address] [place] [address] [place] Eosinophils/100 WBC (Bld) 1.4 % Normal [facility] Comment on above: Order Comment: Speci men Type: BLOOD SPECIMEN Ordering Facility: [facility] Address: [address] [place] [address] Performed By: #### 4 537-7 #### [facility] CLIA [id number] [address] [place] [address] [place] Erythrocyte distribution width (RBC) [Ratio] 13.1 % Normal 11.5-15.0 [facility] Comment on above: Order Comment: Speci men Type: BLOOD SPECIMEN Ordering Facility: [facility] Address: [address] [place] [address] Performed By: #### 4 537-7 #### [facility] CLIA [id number] [address] [place] [address] [place] Hematocrit (Bld) [Volume fraction] 38.9 % Low 39.0-51.0 [facility] Comment on above: Order Comment: Speci men Type: BLOOD SPECIMEN Ordering Facility: [facility] Address: [address] [place] [address] Performed By: #### 4 537-7 #### [facility] CLIA [id number] [address] [place] [address] [place] Hemoglobin (Bld) [Mass/Vol] 12.9 g/dL Low 13.0-17.0 [facility] Comment on above: Order Comment: Speci men Type: BLOOD SPECIMEN Ordering Facility: [facility] Address: [address] [place] [address] Performed By: #### 4 537-7 #### [facility] CLIA [id number] [address] [place] [address] [place] Immature granulocytes (Bld) [#/Vol] 0.10 10*3/uL High <0.10 [facility] Comment on above: Order Comment: Speci men Type: BLOOD SPECIMEN Ordering Facility: [facility] Address: [address] [place] [address] Performed By: #### 4 537-7 #### [facility] CLIA [id number] [address] [place] [address] [place] Immature granulocytes/100 WBC (Bld) 1.0 % Normal [facility] Comment on above: Order Comment: Speci men Type: BLOOD SPECIMEN Ordering Facility: [facility] Address: [address] [place] [address] Performed By: #### 4 537-7 #### [facility] CLIA [id number] [address] [place] [address] [place] Lymphocytes (Bld) [#/Vol] 0.86 10*3/uL Low 1.00-4.00 [facility] Comment on above: Order Comment: Speci men Type: BLOOD SPECIMEN Ordering Facility: [facility] Address: [address] [place] [address] Performed By: #### 4 537-7 #### [facility] CLIA [id number] [address] [place] [address] [place] Lymphocytes/100 WBC (Bld) 8.4 % Normal [facility] Comment on above: Order Comment: Speci men Type: BLOOD SPECIMEN Ordering Facility: [facility] Address: [address] [place] [address] Performed By: #### 4 537-7 #### [facility] CLIA [id number] [address] [place] [address] [place] MCH (RBC) [Entitic mass] 31.9 pg Normal 26.0-34.0 [facility] Comment on above: Order Comment: Speci men Type: BLOOD SPECIMEN Ordering Facility: [facility] Address: [address] [place] [address] Performed By: #### 4 537-7 #### [facility] CLIA [id number] [address] [place] [address] [place] MCHC (RBC) [Mass/Vol] 33.2 g/dL Normal 30.5-36.0 [facility] Comment on above: Order Comment: Speci men Type: BLOOD SPECIMEN Ordering Facility: [facility] Address: [address] [place] [address] Performed By: #### 4 537-7 #### [facility] CLIA [id number] [address] [place] [address] [place] MCV (RBC) [Entitic vol] 96.3 fL Normal 80.0-100.0 [facility] Comment on above: Order Comment: Speci men Type: BLOOD SPECIMEN Ordering Facility: [facility] Address: [address] [place] [address] Performed By: #### 4 537-7 #### [facility] CLIA [id number] [address] [place] [address] [place] Monocytes (Bld) [#/Vol] 0.83 10*3/uL Normal <0.87 [facility] Comment on above: Order Comment: Speci men Type: BLOOD SPECIMEN Ordering Facility: [facility] Address: [address] [place] [address] Performed By: #### 4 537-7 #### [facility] CLIA [id number] [address] [place] [address] [place] Monocytes/100 WBC (Bld) 8.1 % Normal [facility] Comment on above: Order Comment: Speci men Type: BLOOD SPECIMEN Ordering Facility: [facility] Address: [address] [place] [address] Performed By: #### 4 537-7 #### [facility] CLIA [id number] [address] [place] [address] [place] Neutrophils (Bld) [#/Vol] 8.25 10*3/uL High 1.45-7.50 [facility] Comment on above: Order Comment: Speci men Type: BLOOD SPECIMEN Ordering Facility: [facility] Address: [address] [place] [address] Performed By: #### 4 537-7 #### [facility] CLIA [id number] [address] [place] [address] [place] Neutrophils/100 WBC (Bld) 80.5 % Normal [facility] Comment on above: Order Comment: Speci men Type: BLOOD SPECIMEN Ordering Facility: [facility] Address: [address] [place] [address] Performed By: #### 4 537-7 #### [facility] CLIA [id number] [address] [place] [address] [place] Nucleated RBC (Bld) [#/Vol] 10*3/uL Normal <0.01 [facility] Comment on above: Order Comment: Speci men Type: BLOOD SPECIMEN Ordering Facility: [facility] Address: [address] [place] [address] Performed By: #### 4 537-7 #### [facility] CLIA [id number] [address] [place] [address] [place] Nucleated RBC/100 WBC (Bld) [Ratio] 0.0 /100 WBC Normal [facility] Comment on above: Order Comment: Speci men Type: BLOOD SPECIMEN Ordering Facility: [facility] Address: [address] [place] [address] Performed By: #### 4 537-7 #### [facility] CLIA [id number] [address] [place] [address] [place] Platelet mean volume (Bld) [Entitic vol] 9.9 fL Normal 9.0-12.7 [facility] Comment on above: Order Comment: Speci men Type: BLOOD SPECIMEN Ordering Facility: [facility] Address: [address] [place] [address] Performed By: #### 4 537-7 #### [facility] CLIA [id number] [address] [place] [address] [place] Platelets (Bld) [#/Vol] 272 10*3/uL Normal 150-400 [facility] Comment on above: Order Comment: Speci men Type: BLOOD SPECIMEN Ordering Facility: [facility] Address: [address] [place] [address] Performed By: #### 4 537-7 #### [facility] CLIA [id number] [address] [place] [address] [place] RBC (Bld) [#/Vol] 4.04 10*6/uL Low 4.20-6.00 [facility] Comment on above: Order Comment: Speci men Type: BLOOD SPECIMEN Ordering Facility: [facility] Address: [address] [place] [address] Performed By: #### 4 537-7 #### [facility] CLIA [id number] [address] [place] [address] [place] WBC (Bld) [#/Vol] 10.24 10*3/uL Normal 3.70-11.00 [facility] Comment on above: Order Comment: Speci men Type: BLOOD SPECIMEN Ordering Facility: [facility] Address: [address] [place] [address] Performed By: #### 4 537-7 #### [facility] CLIA [id number] [address] [place] [address] [place] [address] [place] CNOVSPon 11-12-2024 CNOVSP Visit (SP) Office ([facility]) ----- ALEX CARPENTER ([id number]) 1935 M Date Time Provider Department 11/12/24 12:40 PM EVERETT ALDRICH During your visit today, we recorded the following information about you: Temperature Pulse Blood pressure Weight 97.4 degrees 63/minute 114/66 81.4 kg Everett Aldrich MD 11/12/2024 2:05 PM Signed (Elements copied from my note dated May 28, 2024, have been reviewed and updated where appropriate, and all reflect current assessment and medical decision making from today's encounter, November 12, 2024) HISTORY OF PRESENT ILLNESS: Alex Carpenter is a 89 year old male diagnosed with prostate cancer [...] Lupron every 3 months. 2) Zometa every 3 months Interim history: Doing well. Left knee [...] CURRENT OUTPATIENT MEDICATIONS: oxyCODONE-acetaminophen (PERCOCET) 5-325 mg tablet Take 1 tablet by mouth every 6 hours as needed. losartan (COZAAR) 25 mg tablet Take 25 mg by mouth once daily. calcium citrate/vitamin D3 (CALCIUM CITRATE + D ORAL) Take 1 tablet by mouth two times a day. magnesium hydroxide (MAGNESIA ORAL) Take 400 mg by mouth once daily as needed (constipation). (Patient taking differently: Take 400 mg by mouth once daily.) POTASSIUM-99 ORAL Take 1 tablet by mouth once daily. hydroCHLOROthiazide (HYDRODIURIL, ESIDRIX) 12.5 mg capsule Take 12.5 mg by mouth once daily. metoprolol tartrate, short acting, (LOPRESSOR) 50 mg tablet Take 25 mg by mouth two times a day. atorvastatin 40 mg tablet Take 20 mg by mouth once daily. aspirin, enteric coated 81 mg EC tablet Take 81 mg by mouth once daily. GLUCOSAM/MSM/CHONDR/VIT C/HYAL (GLUCOSAMINE-CHONDROITIN- MSM ORAL) Take 1 tablet by mouth two times a day. nitroglycerin sublingual (NITROQUICK) 0.4 mg SL tablet Dissolve 0.4 mg under the tongue every 5 minutes as needed. ergocalciferol, vitamin D2, (VITAMIN D2 ORAL) Take by mouth. (Patient not taking: Reported on 08/20/2024) ergocalciferol 50,000 unit capsule (VITAMIN D2, DRISDOL) Take 1 capsule by mouth one time a week. (Patient not taking: Reported on 11/12/2024) oxybutynin XL (DITROPAN XL) 5 mg 24 hr tablet Take 1 tablet by mouth once daily. (Patient not taking: Reported on 08/20/2024) OTC PRODUCT Take 1,500 mg by mouth two times a day. Lipozene (Patient not taking: Reported on 08/20/2024) meloxicam (MOBIC) 7.5 mg tablet Take 7.5 mg by mouth once daily. (Patient not taking: Reported on 11/12/2024) ubidecareno (more content not included)... Normal [facility] Comprehensive metabolic 2000 panelon 11-12-2024 Albumin [Mass/Vol] 3.9 g/dL Normal 3.9-4.9 [facility] Comment on above: Order Comment: Speci men Type: BLOOD SPECIMENOrdering Facility: [facility] Address: [address] [place], [place] [address] [address] Performed By: #### 2 4323-8 ####[facility] [id number] [place] [id number] [place] ALP [Catalytic activity/Vol] 91 U/L Normal 38-113 [facility] Comment on above: Order Comment: Speci men Type: BLOOD SPECIMENOrdering Facility: [facility] Address: [address] [place] [address] Performed By: #### 2 4323-8 ####[facility] ERNCLIA [id number] [place] [address] [place] ALT [Catalytic activity/Vol] 9 U/L Low 10-54 [facility] Comment on above: Order Comment: Speci men Type: BLOOD SPECIMENOrdering Facility: [facility] Address: [address] [place] [address] Performed By: #### 2 4323-8 ####[facility] [id number] [place] [address] [place] Anion gap [Moles/Vol] 9 mmol/L Normal 8-15 [facility] Comment on above: Order Comment: Speci men Type: BLOOD SPECIMENOrdering Facility: [facility] Address: [address] [place] [address] Performed By: #### 2 4323-8 ####[facility] [id number] [place] [address] [place] AST [Catalytic activity/Vol] 14 U/L Normal 14-40 [facility] Comment on above: Order Comment: Speci men Type: BLOOD SPECIMENOrdering Facility: [facility] Address: [address] [place] [address] Performed By: #### 2 4323-8 ####[facility] ERNCLIA [id number] [place] [address] [place] Bilirubin [Mass/Vol] 0.6 mg/dL Normal 0.2-1.3 [facility] Comment on above: Order Comment: Speci men Type: BLOOD SPECIMENOrdering Facility: [facility] Address: [address] [place] [address] Performed By: #### 2 4323-8 ####[facility] MILLTOWNCLIA [id number] [place] [address] [place] Calcium [Mass/Vol] 9.4 mg/dL Normal 8.5-10.2 [facility] Comment on above: Order Comment: Speci men Type: BLOOD SPECIMENOrdering Facility: [facility] Address: [address] [place] [address] Performed By: #### 2 4323-8 ####[facility] MILLTOWNCLIA [id number] [place] [address] [place] Chloride [Moles/Vol] 103 mmol/L Normal 98-107 [facility] Comment on above: Order Comment: Speci men Type: BLOOD SPECIMENOrdering Facility: [facility] Address: [address] [place] [address] Performed By: #### 2 4323-8 ####[facility] [id number] [place] [address] [place] CO2 [Moles/Vol] 28 mmol/L Normal 22-30 [facility] Comment on above: Order Comment: Speci men Type: BLOOD SPECIMENOrdering Facility: [facility] Address: [address] [place] [address] Performed By: #### 2 4323-8 ####[facility] [id number] [place] [address] [place] Creatinine [Mass/Vol] 1.12 mg/dL Normal 0.73-1.22 [facility] Comment on above: Order Comment: Speci men Type: BLOOD SPECIMENOrdering Facility: [facility] Address: [address] [place] [address] Performed By: #### 2 4323-8 ####[facility] ERNCLIA [id number] [place] [address] [place] eGFRcr SerPlBld CKD-EPI 2020 63 mL/min/1.73m??? Normal >=60 [facility] Comment on above: Order Comment: Edgard wood Type: BLOOD SPECIMENOrdering Facility: [facility] Address: [address] [place] [address] Result Comment: Isabel mated Glomerular Filtration Rate [...] actual GFR. Performed By: #### 2 4323-8 ####[facility] [id number] [place] [address] [place] Glucose [Mass/Vol] 103 mg/dL High 74-99 [facility] Comment on above: Order Comment: Edgard wood Type: BLOOD SPECIMENOrdering Facility: [facility] Address: [address] [place] [address] Result Comment: The [place] [employer] Association (ADA) provides guidance for cutoff [...] Standards of Medical Care in Diabetes 2016, [place] [employer]. Diabetes Care. 2016.39(Suppl 1). Performed By: #### 2 4323-8 ####[facility] [id number] [place] [address] [place] Potassium [Moles/Vol] 3.9 mmol/L Normal 3.7-5.1 [facility] Comment on above: Order Comment: Speci men Type: BLOOD SPECIMENOrdering Facility: [facility] Address: [address] [place] [address] Performed By: #### 2 4323-8 ####[facility] SHEAWNCLIA [id number] [place] [address] [place] Protein [Mass/Vol] 6.1 g/dL Low 6.3-8.0 [facility] Comment on above: Order Comment: Speci men Type: BLOOD SPECIMENOrdering Facility: [facility] Address: [address] [place] [address] Performed By: #### 2 4323-8 ####[facility] [id number] [place] [address] [place] Sodium [Moles/Vol] 140 mmol/L Normal 136-144 [facility] Comment on above: Order Comment: Speci men Type: BLOOD SPECIMENOrdering Facility: [facility] Address: [address] [place] [address] Performed By: #### 2 4323-8 ####[facility] ERNCLIA [id number] [place] [address] [place] Urea nitrogen [Mass/Vol] 28 mg/dL High 9-24 [facility] Comment on above: Order Comment: Speci men Type: BLOOD SPECIMENOrdering Facility: [facility] Address: [address] [place] [address] Performed By: #### 2 4323-8 ####[facility]CLIA [id number] [place] [address] [place] [facility] Prostate specific Ag [Mass/Vol] 0.07 ng/mL Normal <2.60 [facility] Comment on above: Order Comment: Speci men Type: BLOOD SPECIMENOrdering Facility: [facility] Address: [address] [place] [address] Result Comment: Tota l PSA test methodology used is the Electrochemiluminescence Immunoassay by [employer]. Total PSA values by differing methodologies cannot be interchanged. Performed By: #### 2 857-1 ####[facility] LABCLIA [id number] [place] [address] [place] Knee 1 or 2 Viewson 11-05-19 25 Knee 1 or 2 Views [facility] [address] [place] [address] Knee 1 or 2 Views MR#: [id number] Acct: [id number] Name: ALEX CARPENTER Rep #: [id number] : 1935 M 89 From: Tony adler MD PCP: Dr. Otto Subramanian MD Status: [facility] Study: Knee 1 or 2 Views Date of Exam: 11/04/24 Exam# [id number] Ordering Dr: Marcos Mendez MD PROCEDURE: Intraoperative fluoroscopic services. 11/04/2024 REASON FOR EXAM: LEFT KNEE GENICULAR RADIOFREQUENCY ABLATION TECHNIQUE: Intraoperative fluoroscopy provided for left knee injection. Radiation report: 10.2 seconds of fluoroscopy. 1.15 mGy. 5 images were submitted. Laterality: Left knee COMPARISON: None FINDINGS: Intraoperative imaging provided for left knee genicular radiofrequency ablation. RAD/Knee 1 or 2 Views IMPRESSION: Intraoperative imaging provided for left knee genicular radiofrequency ablation. Reading Location: [id number] CC: Dr. Otto Subramanian MD; Dr. Marcos Mendez MD Competitive Intelligence Manager: Signed Normal [facility] Operative Reporton Operative Report [facility] Medical Records Department [address] [place] [address] Operative Report 11/04/24 1123 MR#: [id number] Acct: [id number] Name: ALEX CARPENTER Rep #: [id number] : 1935 89 From: Marcos Mendez MD PCP: Dr. Otto Subramanian MD Status:[facility] Location: [facility] Operative Report (Standard) Operative Information Date of Procedure: 11/04/24 Pre-Operative Diagnosis: Osteoarthritis of the left knee, chronic none operative knee pain Post-Operative Diagnosis: Osteoarthritis of the left knee, chronic none operative knee pain Surgery/Procedure Performed: Left knee radiofrequency ablation of superior medial, superior lateral, inferior medial genicular nerve under fluoroscopic guidance lombardi developer: No Type of Anesthesia: Local RN Documented Start/Stop Times: Operation Date: 11/04/24 11:30 Case Time Into Pre-Op 11/04/24 10:04 Out of Pre-Op 11/04/24 10:21 Into Room 11/04/24 10:35 Procedure Start 11/04/24 10:42 Procedure End 11/04/24 10:49 Anesthesia End 11/04/24 10:52 Out of Room 11/04/24 10:52 Into Phase II Recovery 11/04/24 10:54 Procedure Start Time: 11:32 Procedure Stop Time: 11:32 Select all DRAINS/GRAFTS/IMPLANTS that apply: None Estimated Blood Loss: 1 Specimen collected: No Description of surgery: ANESTHESIA: MAC. BLOOD LOSS: Minimal. COMPLICATIONS: None. DESCRIPTION OF PROCEDURE: History and physical of today was reviewed. Risks and benefits of the procedure were explained. The patient understood and agreed to proceed. Informed consent was obtained. IV inserted per routine protocol. The patient was taken to the operating room and placed in the supine position. The left knee was prepped and draped in a sterile fashion using iodine x3. Under fluoroscopy guidance on AP view, the left knee was visualized. The skin and subcutaneous tissue was anesthetized with approximately 15 mL of 1% lidocaine using a 25-gauge regular needle at the vicinity of the superomedial, superolateral, and inferomedial genicular nerves. Under direct visualization of fluoroscopy on AP view as well as lateral view, starting on the left superomedial, ending on the left inferomedial, passing through the left superolateral genicular nerves, using a 10 cm radiofrequency ablation needle with a 10 mm curved active tip, the needle was passed through the skin. The tip of the needle was maneuvered and directed towards the diaphyseal junction of each corresponding nerve. Once tip of the needle was in the vicinity of the diaphysis and in contact with the bone, after confirmation on AP as well as lateral view and repeated negative aspiration for blood, the stylette of each needle was then removed, the radiofrequency ablation probe was then inserted at each level impedance was then recorded at the superior medial to be 295 ohm, superior lateral 241 ohm, inferior medial 285 ohm, stimulation was then taken place at 1.5 V and 2 Hz without any motor response at each corresponding level, the probe was then removed intact and a total of 6 cc of preservative-free 1% lidocaine was injected in divided doses between these 3 levels, the radiofrequency ablation probes were then inserted 3 needles, after repeated confirmation on AP lateral as well as oblique views, the radiofrequency ablation then started to 80 ???C for 90 seconds at each level, once ablation concluded the probes were then removed intact, a total of 6 mL of preservative-free 0.25% Marcaine with 40 mg of Depo-Medrol was injected in divided doses between those three levels. The needles were then removed intact. The patient experienced no sign or symptoms of intravascular injection. The patient experienced no paresthesia. The procedure was completed without any apparent difficulty or any complications. The patient appeared to tolerate it well. ASSESSMENT AND PLAN: This is an 89-year-old male with osteoarthritis of the left knee, chronic nonoperative left knee pain, status post Left knee radiofrequency ablation of superior medial, superior lateral, inferior medial genicular nerve under fluoroscopic guidance, patient will continue his current medications, patient will follow-up in approximately 2 weeks for reevaluation. Surgical Findings: 0 Complications Complications: No Admit VTE Documentation VTE Present on Admission: No VTE Mechan Device Prophylaxis: None VTE Pharm Prophylaxis ordered?: No 11/04/24 1138 Cosigner Signature (if applicable): CC: Dr. Otto Subramanian MD; Dr. Marcos Mendez MD Signed [facility] MR/PAT.ANEon 10-31-2024 MR/PAT.[facility] Medical Records Department [address] [place] [address] PAT - Anesthesia 10/31/24 1711 MR#: [id number] Acct: [id number] Name: ALEX CARPENTER Rep #: [id number] : 1935 89 From: Venkat Quevedo MD PCP: Dr. Otto Subramanian MD Status:PRE [facility] Y Race: C [place] [facility] Pre-Assessment Diagnosis/Proposed Procedure Planned Operative Procedure(s): left knee genicular radiofreq ablation superior medial, superior lateral, inferior medial under fluoroscopy Anesthesia History Anesthesia History - perinatal director: Anesthesia History - perinatal director Hx Hospitalization No 10/31/24 15:44 Any Problems With Anesthesia No 10/31/24 15:44 Cholinesterase deficiency No 10/31/24 15:44 You/Your Family Experience No 10/31/24 15:44 fever (hyperthermia) with Relationship Recent Exposure to Contagious Disease Does patient have nerve No 10/31/24 15:44 stimulator Patient instructed to have device shut off --Does patient have Pacemaker or ICD? When Was Last Pacemaker Check QUESTION #4 FULL TEXT: You/Your Family Experience fever (hyperthermia) with Anesthesia Last Oral Intake Last Oral intake: Last Oral Intake NPO since Meds taken in AM with sips of water? Meds patient instructed to take am of surgery PONV PONV - perinatal director: PONV - perinatal director Female No 10/31/24 15:44 HX of Motion Sickness No 10/31/24 15:44 HX of N/V After Surgery No 10/31/24 15:44 Non-Smoker Yes 10/31/24 15:44 Duration of Surgery greater No 10/31/24 15:44 than 60 minutes Number of Risk Factors 1 10/31/24 15:44 PONV Score Low Risk 10/31/24 15:44 Height Weight Height Weight: Anesthesia: Height Weight Height 5 ft 8 in 10/07/24 07:22 Respiratory Assessment Respiratory Assessment - perinatal director: Respiratory Tract Infection Hx - perinatal director Hx Respiratory Tract Infection No 10/31/24 15:44 STOP Sleep Apnea STOP Sleep Apnea - perinatal director: STOP Sleep Apnea - perinatal director Hx Hypertension No 10/31/24 15:44 Hx Sleep Apnea Yes 10/31/24 15:44 CPAP Yes 10/31/24 15:44 BIPAP No 10/31/24 15:44 Do you snore loudly (louder than talking or can be heard Do you often feel tired/ fatigued/ sleepy during daytime? Has anyone observed you stop breathing during sleep? STOP Results Positive 10/31/24 15:44 QUESTION #5 FULL TEXT : Do you snore loudly (louder than talking or can be heard through closed doors)? Tobacco Use History Tobacco Use History - perinatal director: Tobacco Use History - perinatal director Tobacco Use Smoking Status Never smoker 10/31/24 15:44 Hx Tobacco Use No 10/31/24 15:44 Years Smoking Packs Smoked per Day Smoking Cessation Date was within the last 15 years Hx Smoking Cessation Date Hx Smoking Cessation Counseling Hematologic Medial History Hematologic Hx - perinatal director: Hematologic Medical Hx - irrigator valve pipe Hx of Blood Transfusion No 10/31/24 15:44 Hx of Transfusion in last 3 No 10/31/24 15:44 Months Date of Last Transfusion (if within last 3 months) Ever experience any problems No 10/31/24 15:44 with transfusion(s)? Specify any problems Hx of Preganancy in last 3 N/A 10/31/24 15:44 Months Nurse Filling Out Transfusion [email or web address] 10/31/24 15:44 Questions: Date: 10/31/24 10/31/24 15:44 Time: 15:47 10/31/24 15:44 Patient unable to answer at this time (ie. confused, unrespo /Reproduction History /Reproductive History - perinatal director: /Reproductive Hx- perinatal director Hx Now Gestational Age (in weeks): EDC: Hx Hx Para Hx Section SAB PFSH Medical History (Updated 10/31/24 @ 15:54 by Juma Barr) Wears hearing aid Loss of hearing Wears dentures Wears glasses History of steroid therapy Cancer High cholesterol Back pain Non-smoker CPAP (continuous positive airway pressure) dependence History of edema Gastric reflux History of stress test History of echocardiogram Cardiology follow-up encounter Bilateral carotid bruits Nonrheumatic aortic (valve) stenosis Essential hypertension SHAMAR (obstructive sleep apnea) Old myocardial infarction Diastolic dysfunction Premature atrial contractions Cardiac murmur Hyperlipidemia Hypertension Atherosclerotic heart disease of [place] coronary artery without angina pectoris Home Medications ???Medication ???Instructions ???Recorded ???Last Taken ???Type aspirin 81 mg tablet,delayed 81 mg PO QDAY 11/06/17 10/07/24 Hi story release zoledronic acid 4 mg/100 mL in See Rx Instructions .Route .COMPLE X 06/21/22 Unkn (more content not included)... Normal [facility] Cardiac Cath Diagnosticon Cardiac Cath Diagnostic [facility] Services [address] [place] [id number] Cardiac Cath Diagnostic MR#: [id number] Acct: [id number] Name: ALEX CARPENTER #: [id number] : 1935 89 From: Osman Bui MD PCP: Dr. Otto Subramanian MD Status:DEP [facility] [place] Patient Name: ALEX CARPENTER Study Date: 10/07/2024 Performing: Osman Bui MD Ht: 68 inches 172.72 cm : 1935 Wt: 180.01 lbs 81.65 kg Age: 89 Gender: male BSA: 1.95 PROCEDURE(S) PERFORMED DC02-([id number])[facility] CLINICAL PROFILE AND INDICATIONS Indications: Valvular Disease Heart Failure: None Stress/Imaging Stress/Image Study Performed: No CAD Presentations: Symptom unlikely to be ischemic. 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 RECOMMENDATIONS Will refer for consideration of PCI of the right coronary artery and TAVR. DESCRIPTION OF PROCEDURE The patient arrived to the procedure lab. The risks and benefits of the procedure as well as a full description of our services here and current unavailability of surgical backup were fully explained to the patient and/or their significant other prior to the catheterization. The Timeout was completed, verifying the correct patient and procedure. The patient's procedural site was prepped and draped in the usual fashion. Local anesthetic was given subcutaneously to right radial region with Lidocaine 2%. Using a modified Seldinger technique, arterial access was obtained via the right radial artery, a 6Fr sheath was inserted. Left Coronary Artery selective angiography was performed in multiple views using a 5 Fr. 4.0 [place] catheter. Right Coronary Artery selective angiography was then performed in multiple views using a 5 Fr. 4.0 [place] catheter.The arterial sheath was pulled and a TR Band was applied for hemostasis 17 cc air CORONARY ANGIOGRAPHY DOMINANCE: Right Dominant LEFT HEART ASSESSMENT Left Ventricular Ejection Fraction: by Echo 65 % Normal LV wall motion Normal Left Ventricular systolic function LEFT MAIN: Angiographically normal LEFT ANTERIOR DESCENDING ARTERY: Mild luminal irregularities CIRCUMFLEX ARTERY: Small nondominant vessel with proximal 80% stenosis and moderate diffuse disease RAMUS: Previously stented vessel which appears to be patent with no significant stenosis RIGHT CORONARY ARTERY: Dominant right coronary artery with proximal 60% stenosis and mid 80% stenosis. The vessel then continues and bifurcates into left anterior descending artery and left circumflex artery. VALVE FINDINGS: Aortic Valve Calcification - severe Aortic Valve Stenosis - severe COMPLICATIONS No Complications PROCEDURE MEDICATIONS Fentanyl 25 mcg IV Versed 0.5 mg IV Versed 0.5 mg IV Fentanyl 25 mcg IV Fentanyl 50 mcg IV Oxygen: 2 L/min via nasal cannula Heparin given IA 10/07/2024 08:06:39 Verapamil 2.5mg,3000 units of Heparin given IA 10/07/2024 08:06:39 SUMMARY OF HEMODYNAMIC DATA Time AIR REST ECG 07:25:43 AO 172/67 (107) SA 08:27:23 Signed By Osman Bui MD On 10/07/2024 09:18:23 Osman Bui MD 10/28/24 0947 Date Osman Bui MD Cosigner Signature: Date (if indicated) CC: Dr. Osman Bui MD; Dr. Otto Subramanian MD Date Dictated: 10/07/24801 Date Transcribed: 10/07/2418 Competitive Intelligence Manager: CO Signed Normal [facility] Office Visit Reporton 2024 Office Visit Report [facility] [address] [place] [address] OFFICE VISIT Date of Service: 09/29/24 MR#: [id number] Acct: [id number] Patient: ALEX CARPENTER Rep #: [id number] : 1935 Provider: MARIE Sheridan Age/Sex: 89/M Location: [facility] [place] Status: Signed Intake Vital Signs 09/26/24 08:11 [...] SWOLLEN L ANKLE/FOOT Chief Complaint: LLE swelling/redness Decorating Kiln Operator Required: No Is patient in pain?: Yes [...] only taken three times since getting RX. PFSH Medical History (Reviewed 09/26/24 @ 10:51 by Riri Peralta REGISTERED NURSE FIRST ASSISTANT, REGISTERED NURSE FIRST ASSISTANT-C) Bilateral carotid bruits Nonrheumatic aortic (valve) stenosis Essential hypertension SHAMAR (obstructive sleep apnea) Old myocardial infarction Diastolic dysfunction Premature atrial contractions Cardiac murmur Hyperlipidemia Hypertension Atherosclerotic heart disease of [place] coronary artery without angina pectoris Surgical History [...] past year?: No 09/29/24 0947 A> Date Freddie Allen Signature: Date (if applicable) CC: Normal [facility] Absolute lymphocyte countOrd ered By: Riri Peralta on 09-26-2024 Lymphocytes Auto (Unsp spec) [#/Vol] 0.85 10*3/uL 0.83-4.51 [facility] Absolute neutrophil countOrd ered By: Riri Peralta on 09-26-2024 Neutrophils (Bld) [#/Vol] 7.3 10*3/uL 2.0-7.7 [facility] Anion gap in Serum or Plasma Ordered By: Riri Peralta on 09-26-2024 Anion gap [Moles/Vol] 9 mmol/L 5-15 [facility] Automated lymphocyte count a s percentage of total leukocytesOrdered By: Riri Peralta on 09-26-2024 Lymphocytes/100 WBC Auto (Unsp spec) 9.3 % Low 19-41 [facility] BUN/creatinine ratioOrdered By: Riri Peralta on 09-26-2024 Urea nitrogen/Creatinine [Mass ratio] 23.4 mg/mg High 01-06 [facility] Basic Metabolic Profile (BMP )on 09-26-2024 BUN/CRE 23.4 RATIO High 01-06 [facility] Comment on above: Performed By: #### L 500.2500, L100.0100, L503.7505 #### [facility] [address] [place], [address] Calcium [Mass/Vol] 9.1 mg/dL Normal 7.6-11.0 [facility] Comment on above: Performed By: #### L 500.2500, L100.0100, L503.7505 #### [facility] [address] [place], [address] Chloride [Moles/Vol] 106 mmol/L Normal 98-108 [facility] Comment on above: Performed By: #### L 500.2500, L100.0100, L503.7505 #### [facility] [address] [place], [address] CO2 [Moles/Vol] 27.6 mmol/L Normal 21.0-32.0 [facility] Comment on above: Performed By: #### L 500.2500, L100.0100, L503.7505 #### [facility] [address] [place], [address] Creatinine [Mass/Vol] 1.03 mg/dL Normal 0.70-1.20 [facility] Comment on above: Performed By: #### L 500.2500, L100.0100, L503.7505 #### [facility] [address] [place], [address] GAP 9 Normal 5-15 [facility] Comment on above: Performed By: #### L 500.2500, L100.0100, L503.7505 #### [facility] [address] [place], [address] GFR/1.73 sq M.predicted among non-blacks MDRD (S/P/Bld) [Vol rate/Area] 70 mL/min/{1.73_m2} Normal >60 [facility] Comment on above: Result Comment: mL/m in/1.73m2 CKD-EPI Creatinine Equation (2020) Performed By: #### L 500.2500, L100.0100, L503.7505 #### [facility] [address] [place], [address] Glucose [Mass/Vol] 108 mg/dL High 70-99 [facility] Comment on above: Performed By: #### L 500.2500, L100.0100, L503.7505 #### [facility] [address] [place], [address] Potassium [Moles/Vol] 3.8 mmol/L Normal 3.3-5.1 [facility] Comment on above: Performed By: #### L 500.2500, L100.0100, L503.7505 #### [facility] [address] [place], [address] Sodium [Moles/Vol] 143 mmol/L Normal 133-145 [facility] Comment on above: Performed By: #### L 500.2500, L100.0100, L503.7505 #### [facility] [address] [place], [address] Urea nitrogen [Mass/Vol] 24 mg/dL High 4-19 [facility] Comment on above: Performed By: #### L 500.2500, L100.0100, L503.7505 #### [facility] [address] [place], [address] Basophil percentageOrdered B y: Riri Peralta on 09-26-2024 Basophils/100 WBC (Bld) 0.5 % 0-1 [facility] CBC W/Diff, Automatedon 09-17 0-2024 Absolute Lymph 0.85 X10 3/uL Normal 0.83-4.51 [facility] Comment on above: Performed By: #### L 500.2500, L100.0100, L503.7505 #### [facility] [address] [place], [address] Absolute Neut 7.3 X10 3/uL Normal 2.0-7.7 [facility] Comment on above: Performed By: #### L 500.2500, L100.0100, L503.7505 #### [facility] [address] [place], [address] Basophils/100 WBC (Bld) 0.5 % Normal 0-1 [facility] Comment on above: Performed By: #### L 500.2500, L100.0100, L503.7505 #### [facility] [address] [place], [address] Eosinophils/100 WBC (Bld) 1.9 % Normal 0-5 [facility] Comment on above: Performed By: #### L 500.2500, L100.0100, L503.7505 #### [facility] [address] [place], [address] Erythrocyte distribution width (RBC) [Ratio] 13.2 % Normal 11.6-14.6 [facility] Comment on above: Performed By: #### L 500.2500, L100.0100, L503.7505 #### [facility] [address] [place], [address] Hematocrit (Bld) [Volume fraction] 40.2 % Normal 40-54 [facility] Comment on above: Performed By: #### L 500.2500, L100.0100, L503.7505 #### [facility] [address] [place], [address] Hemoglobin (Bld) [Mass/Vol] 13.2 g/dL Normal 13.0-16.5 [facility] Comment on above: Performed By: #### L 500.2500, L100.0100, L503.7505 #### [facility] [address] [place], [address] IG% 0.800 Normal 0.0-0.9 [facility] Comment on above: Result Comment: IG% - Immature Granulocytes (promyelocytes, myelocytes and metamyelocytes) > 1% indicates that a LEFT SHIFT is Present. Performed By: #### L 500.2500, L100.0100, L503.7505 #### [facility] [address] [place], [address] Lymphocytes/100 WBC (Bld) 9.3 % Low 19-41 [facility] Comment on above: Performed By: #### L 500.2500, L100.0100, L503.7505 #### [facility] [address] [place], [address] MCH (RBC) [Entitic mass] 31.7 pg Normal 27.0-32.0 [facility] Comment on above: Performed By: #### L 500.2500, L100.0100, L503.7505 #### [facility] [address] [place], [address] MCHC (RBC) [Mass/Vol] 32.8 g/dL Normal 32-36 [facility] Comment on above: Performed By: #### L 500.2500, L100.0100, L503.7505 #### [facility] [address] [place], [address] MCV (RBC) [Entitic vol] 96.4 fL High 80-94 [facility] Comment on above: Performed By: #### L 500.2500, L100.0100, L503.7505 #### [facility] [address] [place], [address] Monocytes/100 WBC (Bld) 7.4 % Normal 0-10 [facility] Comment on above: Performed By: #### L 500.2500, L100.0100, L503.7505 #### [facility] [address] [place], [address] Neutrophils/100 WBC (Bld) 80.1 % High 47-70 [facility] Comment on above: Performed By: #### L 500.2500, L100.0100, L503.7505 #### [facility] [address] [place], [address] Nucleated RBC (Bld) [#/Vol] 0 10*3/uL Normal 0-5 [facility] Comment on above: Performed By: #### L 500.2500, L100.0100, L503.7505 #### [facility] [address] [place], [address] Platelet mean volume (Bld) [Entitic vol] 10.4 fL Normal 6.2-12.0 [facility] Comment on above: Performed By: #### L 500.2500, L100.0100, L503.7505 #### [facility] [address] [place], [address] Platelets (Bld) [#/Vol] 248 10*3/uL Normal 150-450 [facility] Comment on above: Performed By: #### L 500.2500, L100.0100, L503.7505 #### [facility] [address] [place], [address] RBC (Bld) [#/Vol] 4.17 10*6/uL Low 4.6-6.2 [facility] Comment on above: Performed By: #### L 500.2500, L100.0100, L503.7505 #### [facility] [address] [place], [address] RDW SD 46.8 fl High 35.1-43.9 [facility] Comment on above: Performed By: #### L 500.2500, L100.0100, L503.7505 #### [facility] [address] [place], [address] WBC (Bld) [#/Vol] 9.1 10*3/uL Normal 4.4-11.0 [facility] Comment on above: Performed By: #### L 500.2500, L100.0100, L503.7505 #### [facility] [address] [place], [address] Carbon dioxide, total [Moles /volume] in Central venous bloodOrdered By: Riri Peralta on 09-26-2024 CO2 [Moles/Vol] 27.6 mmol/L 21.0-32.0 [facility] Cardiology Visit Reporton Cardiology Visit Report [facility] [address] [place] [address] OFFICE VISIT Date of Service: 09/26/24 MR#: [id number] Acct: [id number] Name: ALEX CARPENTER Rep #: [id number] : 1935 Provider: VIKRAM roach Age/Sex: 89/M Location: [facility] [place] Status: Signed with Addenda ADDENDUM by VIKRAM [...] PA and Lateral Today Riri Peralta NP, REGISTERED NURSE FIRST ASSISTANT-C I35.0 - Nonrheumatic aortic (valve) stenosis Left Heart Cath/COR/LV Percut 10/07/24 VIKRAM Eden NP I35.0 - Nonrheumatic aortic (valve) stenosis Basic Metabolic Profile (BMP) Today VIKRAM Eden NP I35.0 - Nonrheumatic aortic (valve) stenosis CBC W/Diff, Automated Today VIKRAM Eden NP I35.0 - Nonrheumatic aortic (valve) stenosis 12 Lead EKG performed by BMS Today VIKRAM Eden NP I35.0 - Nonrheumatic aortic (valve) stenosis Pro- Brain NATRIURETIC PEPTIDE Today Riri ePralta NP REGISTERED NURSE FIRST ASSISTANT-C R06.09 - Other forms of dyspnea Medications: Changed From atorvastatin 20 mg orally daily; may reduce to every other day when myalgias flair.; 20 mg PO .QOD 45 tabs 3RF To atorvastatin 20 mg orally daily; may reduce to every other day when myalgias flair.; 20 mg PO Q OTHER DAY Riri Peralta NP, REGISTERED NURSE FIRST ASSISTANT-C From oxycodone-acetaminophen 5-325 mg (Percocet) 1 TAB [...] (MMM) 09/26/24 1100 Date Riri Peralta NP REGISTERED NURSE FIRST ASSISTANT-C cc: Dr. Otto Subramanian MD * Signed [...] NIBP Intake Visit Reasons: UPDATE H P Decorating Kiln Operator Required: No Accompanied by: Is patient in [...] mg tablet 7.5 mg PO DAILY PAIN 10/15/2209/17 History nitroglycerin 0.4 mg sublingual 0.4 mg sublingual Q5-15M PRN chest 05/23/23 09/26/24 Rx tablet pain #25 tabs calcium 200 mg (as 1 tab PO DAILY 01/24/24 09/26/24 H istory citrate)-vitamin D3 6.25 mcg (250 unit) tablet omega 3-lhl-phd-fish oil 300 1 cap PO DAILY 01/24/24 [...] mg tabl (more content not included)... Normal [facility] Chest PA and Lateralon 09-26 Chest PA and Lateral [facility] [address] [place] [address] Chest PA and Lateral MR#: [id number] Acct: [id number] Name: ALEX CARPENTER Rep #: [id number] : 1935 M 89 From: Evelio Amaya MD PCP: Dr. Otto Subramanian MD Status: PRE [facility] [place] Study: Chest PA and Lateral Date of Exam: 09/26/24 Exam# [id number] Ordering Dr: Riri Peralta REGISTERED NURSE FIRST ASSISTANT REGISTERED NURSE FIRST ASSISTANT- C PROCEDURE: CHEST PA AND LATERAL 09/26/2024 REASON FOR EXAM: CARDIAC CATH TECHNIQUE: CHEST PA AND LATERAL COMPARISON: None. FINDINGS: The heart is enlarged. Ill-defined opacities of the bilateral lower lobes which may represent atelectasis or developing infection. The edema is possible. No pleural effusion or pneumothorax. RAD/Chest PA and Lateral IMPRESSION: Pulmonary findings as above. Reading Location: [id number] CC: REGISTERED NURSE FIRST ASSISTANT-C Riri Peralta; Dr. Otto Subramanian MD Competitive Intelligence Manager: Signed Normal [facility] Chloride assayOrdered By: Georges Peralta on 09-26-2024 Chloride [Moles/Vol] 106 mmol/L 98-108 [facility] Eosinophil percentageOrdered By: Riri Peralta on 09-26-2024 Eosinophils/100 WBC (Bld) 1.9 % 0-5 [facility] Erythrocyte distribution wid th ratioOrdered By: Riri Peralta on 09-26-2024 Erythrocyte distribution width (RBC) [Ratio] 13.2 % 11.6-14.6 [facility] Erythrocyte distribution wid th standard deviationOrdered By: Riri Peralta on 09-26-2024 Erythrocyte distribution width (RBC) [Ratio] 46.8 fl High 35.1-43.9 [facility] Glomerular filtration rate ( GFR) estimation/1.73 sq m using serum, plasma, or whole bOrdered By: Riri Peralta on 09-26-2024 GFR/1.73 sq M.predicted among non-blacks MDRD (S/P/Bld) [Vol rate/Area] 70 mL/min/{1.73_m2} >60 [facility] Comment on above: mL/min/1.73m2 CKD-EP I Creatinine Equation (2020) Hematocrit Auto (Bld) [Volum e fraction]Ordered By: Riri Peralta on 09-26-2024 Hematocrit (Bld) [Volume fraction] 40.2 % 40-54 [facility] Hemoglobin measurementOrdere d By: Riri Peralta on 09-26-2024 Hemoglobin (Bld) [Mass/Vol] 13.2 g/dL 13.0-16.5 [facility] Immature granulocytes/100 WB C Auto (Bld)Ordered By: Riri Peralta on 09-26-2024 Immature granulocytes/100 WBC (Bld) 0.800 % 0.0-0.9 [facility] Comment on above: IG% - Immature Granu locytes (promyelocytes, myelocytes and metamyelocytes) > 1% indicates that a LEFT SHIFT is Present. L503.7505on 09-26-2024 Natriuretic peptide B (Bld) [Mass/Vol] 756 pg/mL Normal <=1800 [facility] Comment on above: Result Comment: Hear t Failure Unlikely: < 300 pg/mL Heart Failure Likely < 50 Years: > 450 pg/mL 50-75 Years: > 900 pg/mL >75 Years: > 1800 pg/mL Performed By: #### L 500.2500, L100.0100, L503.7505 ####[facility] [id number] [place], [address] MCV (mean corpuscular volume ) determinationOrdered By: Riri Peralta on 07-10-2025 MCV (RBC) [Entitic vol] 96.4 fL High 80-94 [facility] Mean corpuscular hemoglobin (MCH) determinationOrdered By: Riri Peralta on 09-26-2024 MCH (RBC) [Entitic mass] 31.7 pg 27.0-32.0 [facility] Mean corpuscular hemoglobin concentration (MCHC) determinationOrdered By: Riri Peralta on 09-26-2024 MCHC (RBC) [Mass/Vol] 32.8 g/dL 32-36 [facility] Mean platelet volume determi nationOrdered By: Riri Peralta on 09-26-2024 Platelet mean volume (Bld) [Entitic vol] 10.4 fL 6.2-12.0 [facility] Monocyte percentageOrdered B y: Riri Peralta on 09-26-2024 Monocytes/100 WBC (Bld) 7.4 % 0-10 [facility] Natriuretic peptide.B prohor liz N-Terminal [Mass/volume] in Serum or PlasmaOrdered By: Riri Peralta on 09-26-2024 Natriuretic peptide.B prohormone N-Terminal [Mass/Vol] 756 pg/mL <1800 [facility] Comment on above: Heart Failure Unlike ly: < 300 pg/mLHeart Failure Likely< 50 Years: > 450 pg/mL50-75 Years: > 900 pg/mL>75 Years: > 1800 pg/mL Neutrophil percentageOrdered By: Riri Peralta on 09-26-2024 Neutrophils/100 WBC (Bld) 80.1 % High 47-70 [facility] Nucleated red blood cell per centageOrdered By: Riri Peralta on 09-26-2024 Nucleated RBC/100 WBC (Bld) [Ratio] 0 % 0-5 [facility] Platelet countOrdered By: Georges Peralta on 09-26-2024 Platelets (Bld) [#/Vol] 248 10*3/uL 150-450 [facility] Potassium measurement (mass/ volume)Ordered By: Riri Peralta on 09-26-2024 Potassium (Unsp spec) [Mass/Vol] 3.8 mmol/L 3.3-5.1 [facility] RBC Auto (Bld) [#/Vol]Ordere d By: Riri Peralta on 09-26-2024 RBC (Bld) [#/Vol] 4.17 10*6/uL Low 4.6-6.2 [facility] Serum creatinine measurement (mass/volume)Ordered By: Riri Peralta on 09-26-2024 Creatinine [Mass/Vol] 1.03 mg/dL 0.70-1.20 [facility] Serum glucose measurement (m ass/volume)Ordered By: Riri Peralta on 09-26-2024 Glucose [Mass/Vol] 108 mg/dL High 70-99 [facility] Serum or plasma calcium lilly urement (mass/volume)Ordered By: Riri Peralta on 09-26-2024 Calcium [Mass/Vol] 9.1 mg/dL 7.6-11.0 [facility] Serum or plasma urea nitroge n measurement (mass/volume)Ordered By: Riri Peralta on 09-26-2024 Urea nitrogen [Mass/Vol] 24 mg/dL High 4-19 [facility] Sodium levelOrdered By: Zena Peralta on 09-26-2024 Sodium [Moles/Vol] 143 mmol/L 133-145 [facility] White blood cell (WBC) count Ordered By: Riri Peralta on 09-26-2024 WBC (Bld) [#/Vol] 9.1 10*3/uL 4.4-11.0 [facility] Echocardiogram study reportO rdered By: Osman Bui on 09-17-2024 Study [address] [facility] Cardiovascular Services [address] [place] [address] Echo Complete W/ Contrast 09/16/24 1105 MR#: [id number] Acct: [id number] Name: ALEX CARPENTER Rep #:[id number] : 1935 89 From: Osman Magallon Attending Dr: MARIE Cary Status: REG CLI Ordering Dr: Freddie Lee Date: 09/16/24 Location: [facility] Sex: M C Admitted: Reason For Study [...] Contrast injection was performed. ___ Ordering Physician: Freddie Lee Referring Physician: Freddie Lee Performed By: Dariel Baig and Student 09/17/24 1208 Date _ Osman Bui MD CC: Dr. Otto Subramanian MD; MARIE Cary ~ Date Dictated: 09/16/24 1105 Date Transcribed: 09/17/24 1208 Competitive Intelligence Manager: Signed [facility] Work Phone: Echo Complete W/ Contraston 09-16-2024 Echo Complete W/ Contrast [facility] Cardiovascular Services [address] [place] [address] Echo Complete W/ Contrast 09/16/24 110 MR#: [id number] Acct: [id number] Name: ALEX CARPENTER Rep #: [id number] : 1935 89 From: Osman Bui MD Attending Dr: MARIE Cary Status: REG CLI Ordering Dr: Freddie Lee Date: 08/20 Location: [facility] Sex: M C Admitted: Reason For Study [...] Contrast injection was performed. ___ Ordering Physician: Freddie Lee Referring Physician: Freddie Lee Performed By: Dariel Baig and Student 09/17/24 1208 Date Osman Bui MD CC: Dr. Otto Subramanian MD; MARIE Cary Date Dictated: 09/16/24 1105 Date Transcribed: 09/17/24 120 Competitive Intelligence Manager: Signed Normal [facility] Cardiovascular stress test r eportOrdered By: Osman Bui on 09-12-2024 Study report [facility] Cardiovascular Services [address] [place] [address] MR#: [id number] Acct: [id number] Name: ALEX CARPENTER Rep #: [id number] : 1935 89 From: Osman Bui MD Primary Care: Dr. Otto Subramanian MD Status: REG CLI Referring Dr: Freddie Lee PA Sex : M C Stress [...] MD; MARIE Cary ~ Date Dictated: 09/12/24 1520 Date Transcribed: 09/12/24 152 Competitive Intelligence Manager: [place] Signed [facility] Work Phone: Stress Reporton 09-12-2024 Stress [address] [facility] Cardi[facility] Services [address] [place] [address] MR#: [id number] Acct: [id number] Name: ALEX CARPENTER Rep #: [id number] : 1935 89 From: Osman Bui MD Primary Care: Dr. Otto Subramanian MD Status: R EG CLI Referring Dr: Freddie Lee PA Sex: M C Stress Test Report Pharmacologic [...] Date Dictated: 09/12/24 1520 Date Transcribed: 09/12/241519 Competitive Intelligence Manager: [place] Signed Normal [facility] [place] BY IFA WITH REFLEXon Nuclear Ab Ql (S) Negative Normal Negative [facility] Comment on above: Order Comment: Speci men Type: BLOOD SPECIMEN [facility] Facility[facility] Address: [address] [place] [address] Result Comment: Anti -nuclear antibody test is used as an aid in diagnosis of systemic autoimmune diseases. Where positive and clinically warranted, follow-up using disease-specific testing is recommended. Low positive titers are not uncommon with advanced age, certain chronic infections, and malignancies among others. Test methodology: Indirect fluorescence immunoassay (IFA) using HEp-2 cells. Performed By: #### 4 537-7 #### [facility] CLIA [id number] [address] [place] [address] [place] [address] [place] CBC W Auto Differential pane l (Bld)on 08-20-2024 Basophils (Bld) [#/Vol] 0.03 10*3/uL Normal <0.11 [facility] Comment on above: Order Comment: Speci men Type: BLOOD SPECIMENOrdering Facility: [facility] Address: [address] [place] [address] Performed By: #### 5 7021-8 ####[facility] [id number] [place] [address] [place] Basophils/100 WBC (Bld) 0.3 % Normal [facility] Comment on above: Order Comment: Speci men Type: BLOOD SPECIMENOrdering Facility: [facility] Address: [address] [place] [address] Performed By: #### 5 7021-8 ####[facility] [id number] [place] [address] [place] Differential cell count method Nom (Bld) Auto Normal [facility] Comment on above: Order Comment: Speci men Type: BLOOD SPECIMENOrdering Facility: [facility] Address: [address] [place] [address] Performed By: #### 5 7021-8 ####[facility] [id number] [place] [address] [place] Eosinophils (Bld) [#/Vol] 0.20 10*3/uL Normal <0.46 [facility] Comment on above: Order Comment: Speci men Type: BLOOD SPECIMENOrdering Facility: [facility] Address: [address] [place] [address] Performed By: #### 5 7021-8 ####[facility] SHEAWNCLIA [id number] [place] [address] [place] Eosinophils/100 WBC (Bld) 1.9 % Normal [facility] Comment on above: Order Comment: Speci men Type: BLOOD SPECIMENOrdering Facility: [facility] Address: [address] [place] [address] Performed By: #### 5 7021-8 ####[facility] ERMASONLIA [id number] [place] [address] [place] Erythrocyte distribution width (RBC) [Ratio] 13.7 % Normal 11.5-15.0 [facility] Comment on above: Order Comment: Speci men Type: BLOOD SPECIMENOrdering Facility: [facility] Address: [address] [place] [address] Performed By: #### 5 7021-8 ####[facility] [id number] [place] [address] [place] Hematocrit (Bld) [Volume fraction] 39.0 % Normal 39.0-51.0 [facility] Comment on above: Order Comment: Speci men Type: BLOOD SPECIMENOrdering Facility: [facility] Address: [address] [place] [address] Performed By: #### 5 7021-8 ####[facility] ADRIANWNCLIA [id number] [place] [address] [place] Hemoglobin (Bld) [Mass/Vol] 13.0 g/dL Normal 13.0-17.0 [facility] Comment on above: Order Comment: Speci men Type: BLOOD SPECIMENOrdering Facility: [facility] Address: [address] [place] [address] Performed By: #### 5 7021-8 ####[facility] [id number] [place] [address] [place] Immature granulocytes (Bld) [#/Vol] 0.08 10*3/uL Normal <0.10 [facility] Comment on above: Order Comment: Speci men Type: BLOOD SPECIMENOrdering Facility: [facility] Address: [address] [place] [address] Performed By: #### 5 7021-8 ####[facility] [id number] [place] [address] [place] Immature granulocytes/100 WBC (Bld) 0.8 % Normal [facility] Comment on above: Order Comment: Speci men Type: BLOOD SPECIMENOrdering Facility: [facility] Address: [address] [place] [address] Performed By: #### 5 7021-8 ####[facility] ERNCLIBarber [id number] [place] [address] [place] Lymphocytes (Bld) [#/Vol] 0.77 10*3/uL Low 1.00-4.00 [facility] Comment on above: Order Comment: Speci men Type: BLOOD SPECIMENOrdering Facility: [facility] Address: [address] [place] [address] Performed By: #### 5 7021-8 ####[facility]OSPITALBIBIANAA [id number] [place] [address] [place] Lymphocytes/100 WBC (Bld) 7.3 % Normal [facility] Comment on above: Order Comment: Speci men Type: BLOOD SPECIMENOrdering Facility: [facility] Address: [address] [place] [address] Performed By: #### 5 7021-8 ####[facility] ERNCLI [id number] [place] [address] [place] MCH (RBC) [Entitic mass] 31.2 pg Normal 26.0-34.0 [facility] Comment on above: Order Comment: Speci men Type: BLOOD SPECIMENOrdering Facility: [facility] Address: [address] [place] [address] Performed By: #### 5 7021-8 ####[facility] CATNCPACO [id number] [place] [address] [place] MCHC (RBC) [Mass/Vol] 33.3 g/dL Normal 30.5-36.0 [facility] Comment on above: Order Comment: Speci men Type: BLOOD SPECIMENOrdering Facility: [facility] Address: [address] [place] [address] Performed By: #### 5 7021-8 ####[facility] ERNCLIA [id number] [place] [address] [place] MCV (RBC) [Entitic vol] 93.5 fL Normal 80.0-100.0 [facility] Comment on above: Order Comment: Speci men Type: BLOOD SPECIMENOrdering Facility: [facility] Address: [address] [place] [address] Performed By: #### 5 7021-8 ####[facility] ERNCLIA [id number] [place] [address] [place] Monocytes (Bld) [#/Vol] 0.67 10*3/uL Normal <0.87 [facility] Comment on above: Order Comment: Speci men Type: BLOOD SPECIMENOrdering Facility: [facility] Address: [address] [place] [address] Performed By: #### 5 7021-8 ####[facility] ERNCLIA [id number] [address] [place] Monocytes/100 WBC (Bld) 6.3 % Normal [facility] Comment on above: Order Comment: Speci men Type: BLOOD SPECIMENOrdering Facility: [facility] Address: [address] [place] [address] Performed By: #### 5 7021-8 ####[facility] MILLTOWNCLIA [id number] [place] [address] [place] Neutrophils (Bld) [#/Vol] 8.85 10*3/uL High 1.45-7.50 [facility] Comment on above: Order Comment: Speci men Type: BLOOD SPECIMENOrdering Facility: [facility] Address: [address] [place] [address] Performed By: #### 5 7021-8 ####[facility] MILLWNCLIA [id number] [place] [address] [place] Neutrophils/100 WBC (Bld) 83.4 % Normal [facility] Comment on above: Order Comment: Speci men Type: BLOOD SPECIMENOrdering Facility: [facility] Address: [address] [place] [address] Performed By: #### 5 7021-8 ####[facility]ALL[facility] [id number] [place] [address] [place] Nucleated RBC (Bld) [#/Vol] 10*3/uL Normal <0.01 [facility] Comment on above: Order Comment: Speci men Type: BLOOD SPECIMENOrdering Facility: [facility] Address: [address] [place] [address] Performed By: #### 5 7021-8 ####[facility] MILLTOWNCLIA [id number] [place] [address] [place] Nucleated RBC/100 WBC (Bld) [Ratio] 0.0 /100 WBC Normal [facility] Comment on above: Order Comment: Speci men Type: BLOOD SPECIMENOrdering Facility: [facility] Address: [address] [place] [address] Performed By: #### 5 7021-8 ####[facility] MILLWNCLIA [id number] [place] [address] [place] Platelet mean volume (Bld) [Entitic vol] 10.0 fL Normal 9.0-12.7 [facility] Comment on above: Order Comment: Speci men Type: BLOOD SPECIMENOrdering Facility: [facility] Address: [address] [place] [address] Performed By: #### 5 7021-8 ####[facility]PITALBIBIANAA [id number] [place] [address] [place] Platelets (Bld) [#/Vol] 256 10*3/uL Normal 150-400 [facility] Comment on above: Order Comment: Speci men Type: BLOOD SPECIMENOrdering Facility: [facility] Address: [address] [place] [address] Performed By: #### 5 7021-8 ####[facility] ERNCINTERMOUNTAIN MEDICAL CENTER [id number] [place] [address] [place] RBC (Bld) [#/Vol] 4.17 10*6/uL Low 4.20-6.00 [facility] Comment on above: Order Comment: Speci men Type: BLOOD SPECIMENOrdering Facility: [facility] Address: [address] [place] [address] Performed By: #### 5 7021-8 ####[facility] ERNCLIA [id number] [place] [address] [place] WBC (Bld) [#/Vol] 10.60 10*3/uL Normal 3.70-11.00 [facility] Comment on above: Order Comment: Speci men Type: BLOOD SPECIMENOrdering Facility: [facility] Address: [address] [place] [address] Performed By: #### 5 7021-8 ####[facility] ERNCLIA [id number] [place] [address] [place] CNOVSPon 08-20-2024 CNOVSP Visit (SP) Office (HEMAWS) ----- ALEX CARPENTER ([id number]) 1935 M Date Time Provider Department 08/20/24 [...] every 6 months Interim history: Doing ok. "Balance is pretty bad" using rollator today. He is following with [...] every 5 minutes as needed.Disp: Rfl: Fish Oil-[place]-3 Fatty Acids 500-300 mg ORAL CapTake by mouth.Disp: Rfl: 0 ergocalciferol, vitamin D2, (VITAMIN D2 ORAL)Take by mouth.Disp: Rfl: (Patient not taking: Reported on 08/20/2024) oxybutynin XL (DITROPAN XL) 5 mg 24 hr tabletTake 1 tablet by mouth once daily.Dis (more content not included)... Normal [facility] Comprehensive metabolic 2000 panelon 08-20-2024 Albumin [Mass/Vol] 3.8 g/dL Low 3.9-4.9 [facility] Comment on above: Order Comment: Speci men Type: BLOOD SPECIMENOrdering Facility: [facility] Address: [address] [place] [address] Performed By: #### 2 4323-8 ####[facility] [id number] [place] [address] [place] ALP [Catalytic activity/Vol] 103 U/L Normal 38-113 [facility] Comment on above: Order Comment: Speci men Type: BLOOD SPECIMENOrdering Facility: [facility] Address: [address] [place] [address] Performed By: #### 2 4323-8 ####[facility] [id number] [place] [address] [place] ALT [Catalytic activity/Vol] 11 U/L Normal 10-54 [facility] Comment on above: Order Comment: Speci men Type: BLOOD SPECIMENOrdering Facility: [facility] Address: [address] [place] [address] Performed By: #### 2 4323-8 ####[facility] MILLTOWNCLIA [id number] [place] [address] [place] Anion gap [Moles/Vol] 10 mmol/L Normal 8-15 [facility] Comment on above: Order Comment: Speci men Type: BLOOD SPECIMENOrdering Facility: [facility] Address: [address] [place] [address] Performed By: #### 2 4323-8 ####[facility] ERNCLIA [id number] [place] [address] [place] AST [Catalytic activity/Vol] 16 U/L Normal 14-40 [facility] Comment on above: Order Comment: Speci men Type: BLOOD SPECIMENOrdering Facility: [facility] Address: [address] [place] [address] Performed By: #### 2 4323-8 ####[facility] ERNCLIA [id number] [place] [address] [place] Bilirubin [Mass/Vol] 0.7 mg/dL Normal 0.2-1.3 [facility] Comment on above: Order Comment: Speci men Type: BLOOD SPECIMENOrdering Facility: [facility] Address: [address] [place] [address] Performed By: #### 2 4323-8 ####[facility]ENTERWNCLIA [id number] [place] [address] [place] Calcium [Mass/Vol] 9.0 mg/dL Normal 8.5-10.2 [facility] Comment on above: Order Comment: Speci men Type: BLOOD SPECIMENOrdering Facility: [facility] Address: [address] [place] [address] Performed By: #### 2 4323-8 ####[facility] ADRIANWNCLIA [id number] [place] [address] [place] Chloride [Moles/Vol] 104 mmol/L Normal 98-107 [facility] Comment on above: Order Comment: Speci men Type: BLOOD SPECIMENOrdering Facility: [facility] Address: [address] [place] [address] Performed By: #### 2 4323-8 ####[facility] ERNCLIA [id number] [place] [address] [place] CO2 [Moles/Vol] 24 mmol/L Normal 22-30 [facility] Comment on above: Order Comment: Speci men Type: BLOOD SPECIMENOrdering Facility: [facility] Address: [address] [place] [address] Performed By: #### 2 4323-8 ####[facility] ERNCLIA [id number] [place] [address] [place] Creatinine [Mass/Vol] 1.21 mg/dL Normal 0.73-1.22 [facility] Comment on above: Order Comment: Speci men Type: BLOOD SPECIMENOrdering Facility: [facility] Address: [address] [place] [address] Performed By: #### 2 4323-8 ####[facility] ERNCLIA [id number] [place] [address] [place] Creatinine and Glomerular filtration rate.predicted panel (S/P/Bld) 58 mL/min/1.73m??? Low >=60 [facility] Comment on above: Order Comment: Speci men Type: BLOOD SPECIMENOrdering Facility: [facility] Address: [address] [place] [address] Result Comment: Isabel mated Glomerular Filtration Rate [...] Performed By: #### 2 4323-8 ####[facility] ERJANA [id number] [place] [address] [place] Glucose [Mass/Vol] 121 mg/dL High 74-99 [facility] Comment on above: Order Comment: Edgard wood Type: BLOOD SPECIMENOrdering Facility: [facility] Address: [address] [place] [address] Result Comment: The [place] Diabetes Association (ADA) provides guidance for cutoff [...] Standards of Medical Care in Diabetes 2016, [place] Diabetes Association. Diabetes Care. 2016.39(Suppl 1). Performed By: #### 2 4323-8 ####[facility] ERKALEIGHA [id number] [place] [address] [place] Potassium [Moles/Vol] 4.0 mmol/L Normal 3.7-5.1 [facility] Comment on above: Order Comment: Edgard wood Type: BLOOD SPECIMENOrdering Facility: [facility] Address: [address] [place] [address] Performed By: #### 2 4323-8 ####[facility] ERJANA [id number] [place] [address] [place] Protein [Mass/Vol] 6.0 g/dL Low 6.3-8.0 [facility] Comment on above: Order Comment: Speci men Type: BLOOD SPECIMENOrdering Facility: [facility] Address: [address] [place] [address] Performed By: #### 2 4323-8 ####[facility] [id number] [place] [address] [place] Sodium [Moles/Vol] 138 mmol/L Normal 136-144 [facility] Comment on above: Order Comment: Speci men Type: BLOOD SPECIMENOrdering Facility: [facility] Address: [address] [place] [address] Performed By: #### 2 4323-8 ####[facility] [id number] [place] [address] [place] Urea nitrogen [Mass/Vol] 30 mg/dL High 9-24 [facility] Comment on above: Order Comment: Speci men Type: BLOOD SPECIMENOrdering Facility: [facility] Address: [address] [place] [address] Performed By: #### 2 4323-8 ####[facility] [id number] [place] [address] [place] ESR Westergren method (Bld) [Velocity]on 08-20-2024 ESR (Bld) [Velocity] 8 mm/h Normal 0-15 [facility] Comment on above: Order Comment: Speci men Type: BLOOD SPECIMEN [facility] Address: [address] [place] [address] Performed By: #### 4 537-7 #### [facility] CLIA [id number] [address] [place] [address] [place] HbA1c (Bld)on 08-20-2024 Average glucose Estimated from glycated hemoglobin (Bld) [Mass/Vol] 120 mg/dL Normal [facility] Comment on above: Order Comment: Edgard wood Type: BLOOD SPECIMEN [facility] Address: [address] [place] [address] Result Comment: eAG: (Estimated average glucose) is a calculated value from HgbA1c and is national account representative of the average blood glucose level in the last 2-3 month period. Performed By: #### 5 5454-3 #### [facility] CLIA [id number] [address] [place] [address] [place] HbA1c (Bld) [Mass fraction] 5.8 % High 4.3-5.6 [facility] Comment on above: Order Comment: Edgard wood Type: BLOOD SPECIMEN [facility] Facility[facility] Address: [address] [place] [address] Result Comment: [place] Diabetes Association guidelines indicate that patients with HgbA1c in the range 5.7-6.4% are at increased risk for development of diabetes, and intervention by lifestyle modification may be beneficial. HgbA1c greater or equal to 6.5% is considered diagnostic of diabetes. Performed By: #### 5 5454-3 #### [facility] CLIA [id number] [address] [place] [address] [place] PROTEIN ELECTROPHORESIS SERU M (P)on 08-20-2024 Albumin [Mass/Vol] 3.59 g/dL Normal 3.43-5.41 [facility] Comment on above: Order Comment: Edgard wood Type: BLOOD SPECIMENOrdering Facility: [facility] Address: [address] [place] [address] Performed By: #### L [id number] ####[facility] LABCLIA [id number] [place] [address] [place] Alpha 1 globulin Elph [Mass/Vol] 0.27 g/dL Normal 0.18-0.43 [facility] Comment on above: Order Comment: Edgard wood Type: BLOOD SPECIMENOrdering Facility: [facility] Address: [address] [place], [place] [address] Performed By: #### L [id number] ####[facility] LABCLIA [id number] [place] [address] [place] Alpha 2 globulin Elph [Mass/Vol] 0.62 g/dL Normal 0.42-0.98 [facility] Comment on above: Order Comment: Speci men Type: BLOOD SPECIMENOrdering Facility: [facility] Address: [address] [place] [address] Performed By: #### L [id number] ####[facility] LABIA [id number] [place] [address] [place] Beta globulin Elph [Mass/Vol] 0.68 g/dL Normal 0.61-1.17 [facility] Comment on above: Order Comment: Speci men Type: BLOOD SPECIMENOrdering Facility: [facility] Address: [address] [place] [address] Performed By: #### L [id number] ####[facility] LABCLIA [id number] [place] [address] [place] Gamma globulin Elph [Mass/Vol] 0.55 g/dL Normal 0.53-1.51 [facility] Comment on above: Order Comment: Speci men Type: BLOOD SPECIMENOrdering Facility: [facility] Address: [address] [place] [address] Performed By: #### L [id number] ####[facility] LABCLIA [id number] [place] [id number] [place] M-PROTEIN LOCATION Normal [facility] Comment on above: Order Comment: Speci men Type: BLOOD SPECIMENOrdering Facility: [facility] Address: [address] [place] [address] Result Comment: Not Applicable. Performed By: #### L [id number] ####[facility] LABCLIA [id number] [address] [id number] [address] [place] Protein Fractions [Interp] No definitive M protein is identified on protein electrophoresis. Normal No definitive M protein is identified on protein electrophor esis. [facility] Comment on above: Order Comment: Speci men Type: BLOOD SPECIMENOrdering Facility: [facility] Address: [address] [place] [address] Performed By: #### L [id number] ####[facility] LABCLIA [id number] [place] [address] [place] Protein.monoclonal Elph [Mass/Vol] 0.00 g/dL Normal <=0.00 [facility] Comment on above: Order Comment: Speci men Type: BLOOD SPECIMENOrdering Facility: [facility] Address: [address] [place] [address] Performed By: #### L [id number] ####[facility] LABCLIA [id number] [address] [place] SPE STAFF REVIEW Reviewed by Alexander Sandoval MD, Ph.D ([id number]) Normal [facility] Comment on above: Order Comment: Speci men Type: BLOOD SPECIMENOrdering Facility: [facility] Address: [address] [place] [address] Performed By: #### L [id number] ####[facility] LABCLIA [id number] [place] [address] [place] PSA SerPl-mCncon 08-20-2024 Prostate specific Ag [Mass/Vol] 0.10 ng/mL Normal <2.60 [facility] Comment on above: Order Comment: Speci men Type: BLOOD SPECIMEN [facility] Address: [address] [place] [address] Result Comment: Tota l PSA test methodology used is the Electrochemiluminescence Immunoassay by [employer]. Total PSA values by differing methodologies cannot be interchanged. Performed By: #### 4 537-7 #### [facility] LAB CLIA [id number] [address] [place] [address] [place] Prot SerPl-mCncon 08-20-2024 Protein [Mass/Vol] 5.7 g/dL Low 6.3-8.0 [facility] Comment on above: Order Comment: Speci men Type: BLOOD SPECIMENOrdering Facility: [facility] Address: [address] [place], [place] [id number] Performed By: #### 2 885-2, 3016-3, 9, 7 ####[facility] LABCLIA [id number] [place] [id number] [place] T4 Free SerPl-mCncon 025 Free T4 [Mass/Vol] 1.3 ng/dL Normal 0.9-1.7 [facility] Comment on above: Order Comment: Speci men Type: BLOOD SPECIMENOrdering Facility: [facility] Address: [address] [place] [address] Performed By: #### 2 885-2, 3016-3, 2131-11, 7 ####[facility] LABIA [id number] [place] [id number] [place] TSH SerPl-aCncon 08-20-2024 TSH Qn 2.530 m[IU]/L Normal 0.270-4.200 [facility] Comment on above: Order Comment: Speci men Type: BLOOD SPECIMENOrdering Facility: [facility] Address: [address] [place], [place] [address] Performed By: #### 2 885-2, 6-3, 2131-11, 7 ####[facility] LABIA [id number] [place] [id number] [place] Vit B12 SerPl-mCncon 025 Cobalamin (Vitamin B12) [Mass/Vol] 364 pg/mL Normal 232-1245 [facility] Comment on above: Order Comment: Speci men Type: BLOOD SPECIMENOrdering Facility: [facility] Address: [address] [place] [address] Performed By: #### 2 885-2, 3016-3, 2132-9, 3024-7 ####[facility] LABCLIA [id number] [place] [id number] [place] Bilirubin directOrdered By: Freddie Lee on 06-27-2024 Bilirubin.direct [Mass/Vol] 0.18 mg/dL 0.00-0.30 [facility] Bilirubin, totalOrdered By: Freddie Lee on 06-27-2024 Bilirubin [Mass/Vol] 0.39 mg/dL 0.00-1.30 [facility] Calculated very low density lipoprotein (VLDL) cholesterol measurementOrdered By: Freddie Lee on 06-27-2024 Calculated very low density lipoprotein (VLDL) cholesterol measurement 23 mg/dL 5-40 [facility] VLDL Cholesterol 23 mg/dL 5-40 [facility] Cardiology Visit Reporton Cardiology Visit Report [facility]. 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 Is patient in pain?: No Allergies lisinopril Adverse Reaction (Severe, Verified 01/24/24 02:41) cough Medications ???Medication ???Instructions ???Recorded ???Confirmed ???Type aspirin 81 mg tablet,delayed 81 mg PO QDAY 11/06/17 06/27/24 Hi story release vdyyimamosp-xuusvozcn-yac C-Mn 750 1 ea PO DAILY 05/19/19 [...] PO DAILY 01/24/24 06/27/24 History (CoQ-10) omega 0-pro-wya-fish oil 300 1 cap PO DAILY 01/24/24 [...] murmur Hyperlipidemia Hypertension Atherosclerotic heart disease of [place] coronary artery without angina pectoris Surgical History [...] awake an (more content not included)... Normal [facility] LDL calc ser/plasOrdered By: Freddie Lee on 06-27-2024 Cholesterol in LDL [Mass/Vol] 63 mg/dL [facility] Comment on above: Frdzfddapy=229-032 m g/dL & Higher Vqdu=388 mg/dL or greater LDL Cholesterol, Calculated 63 mg/dL [facility] Comment on above: Adryodevxm=161-245 m g/dL & Higher Tcof=943 mg/dL or greater Laboratory - Chemistry and C hemistry - challengeOrdered By: Freddie Lee on 06-27-2024 AST [Catalytic activity/Vol] 22 U/L <38 [facility] Lipid Profileon 06-27-2024 CHOL:HDL 2.65 Normal [facility] Comment on above: Order Comment: Comme nts: okay to do non fasting Performed By: #### L 500.4100, L500.3400 ####[facility] [address] [place], [place], [id number]) Cholesterol [Mass/Vol] 137 mg/dL Normal <=200 [facility] Comment on above: Order Comment: Comme nts: okay to do non fasting Result Comment: Chol esterol level, Desirable <200 mg/dL Borderline high cholesterol 200-239 mg/dL High cholesterol >=240 mg/dL Recommendations of the NCEP Adult Treatment Panel for the following risk-cutoff thresholds for the [place] population. Performed By: #### L 500.4100, L500.3400 ####[facility] [address] [place], [address] Cholesterol in HDL [Mass/Vol] 52 mg/dL Normal [facility] Comment on above: Order Comment: Comme nts: okay to do non fasting Result Comment: Arleen onal Cholesterol Education Program (NCEP) guidelines: <40 mg/dL: Low HDL-cholesterol (major risk factor for CHD) >= 60 mg/dL: High HDL-cholesterol (negative risk factor for CHD) HDL-cholesterol is affected by a number of factors, e.g. smoking, exercise, hormones, sex and age. Performed By: #### L 500.4100, L500.3400 ####[facility] [address] [place], [address] Cholesterol in LDL [Mass/Vol] 63 mg/dL Normal [facility] Comment on above: Order Comment: Comme nts: okay to do non fasting Result Comment: Bord qetzys=055-067 mg/dL Higher Kjia=049 mg/dL or greater Performed By: #### L 500.4100, L500.3400 ####[facility] [address] [place], [address] Cholesterol in VLDL [Mass/Vol] 23 mg/dL Normal 5-40 [facility] Comment on above: Order Comment: Comme nts: okay to do non fasting Performed By: #### L 500.4100, L500.3400 ####[facility] [address] [place], [address] Triglyceride [Mass/Vol] 114 mg/dL Normal [facility] Comment on above: Order Comment: Comme nts: okay to do non fasting Result Comment: The drugs N-Acetylcysteine and Metamizole may falsely depress this assay. Normal range: <150 mg/dL Borderline High: 150-199 mg/dL High: 200-499 mg/dL Very High: >500 mg/dL Performed By: #### L 500.4100, L500.3400 ####[facility] [address] [place], [address] Liver Profileon 06-27-2024 Albumin [Mass/Vol] 3.8 g/dL Normal 3.4-4.8 [facility] Comment on above: Order Comment: Comme nts: okay to do non fastingokay to do non fasting Performed By: #### L 500.4100, L500.3400 ####[facility] [address] [place], [address] ALK PHOS 78 U/L Normal 40-129 [facility] Comment on above: Order Comment: Comme nts: okay to do non fastingokay to do non fasting Performed By: #### L 500.4100, L500.3400 ####[facility] [address] [place], [address] ALT [Catalytic activity/Vol] 12 U/L Normal <=46 [facility] Comment on above: Order Comment: Comme nts: okay to do non fastingokay to do non fasting Performed By: #### L 500.4100, L500.3400 ####[facility] [address] [place], [address] AST [Catalytic activity/Vol] 22 U/L Normal <=37 [facility] Comment on above: Order Comment: Comme nts: okay to do non fastingokay to do non fasting Performed By: #### L 500.4100, L500.3400 ####[facility] [address] [place], [address] Bilirubin [Mass/Vol] 0.39 mg/dL Normal 0.00-1.30 [facility] Comment on above: Order Comment: Comme nts: okay to do non fastingokay to do non fasting Performed By: #### L 500.4100, L500.3400 ####[facility] [address] [place], [address] Bilirubin.direct [Mass/Vol] 0.18 mg/dL Normal 0.00-0.30 [facility] Comment on above: Order Comment: Comme nts: okay to do non fastingokay to do non fasting Performed By: #### L 500.4100, L500.3400 ####[facility] [address] [place], [address] Globulin (S) [Mass/Vol] 2.4 g/dL Normal 2.2-4.2 [facility] Comment on above: Order Comment: Comme nts: okay to do non fastingokay to do non fasting Performed By: #### L 500.4100, L500.3400 ####[facility] [address] [place], [place], [address] T PROT 6.2 g/dL Normal 5.9-8.4 [facility] Comment on above: Order Comment: Comme nts: okay to do non fastingokay to do non fasting Performed By: #### L 500.4100, L500.3400 ####[facility] [address] [place], [address] Screening total cholesterol/ high density lipoprotein (HDL) cholesterol ratioOrdered By: Freddie Lee on 06-27-2024 Cholesterol.total/[place] sterol in HDL [Mass ratio] 2.65 {ratio} [facility] Serum globulin measurementOr dered By: Freddie Lee on 06-27-2024 Globulin (S) [Mass/Vol] 2.4 g/dL 2.2-4.2 [facility] Serum or plasma alanine workman otransferase (ALT) measurementOrdered By: Freddie Lee on 06-27-2024 ALT [Catalytic activity/Vol] 12 U/L <47 [facility] Serum or plasma albumin lilly urement (mass/volume)Ordered By: Freddie Lee on 06-27-2024 Albumin [Mass/Vol] 3.8 g/dL 3.4-4.8 [facility] Serum or plasma alkaline fiordaliza sphatase measurementOrdered By: Freddie Lee on 06-27-2024 ALP [Catalytic activity/Vol] 78 U/L 40-129 [facility] Serum or plasma cholesterol in HDL measurement (mass/volume)Ordered By: Freddie Lee on 06-27-2024 Cholesterol in HDL [Mass/Vol] 52 mg/dL >40 [facility] Comment on above: National Cholesterol Education Program (NCEP) guidelines:<40 mg/dL: Low HDL-cholesterol (major risk factor for CHD)>= 60 mg/dL: High HDL-cholesterol (negative risk factor for CHD)HDL-cholesterol is affected by a number of factors, e.g. smoking, exercise, hormones, sex and age. Serum or plasma cholesterol measurement (mass/volume)Ordered By: Freddie Lee on 06-27-2024 Cholesterol [Mass/Vol] 137 mg/dL <201 [facility] Comment on above: Cholesterol level, D esirable <200 mg/dLBorderline high cholesterol 200-239 mg/dLHigh cholesterol >=240 mg/dLRecommendations of the NCEP Adult Treatment Panel for the following risk-cutoff thresholds for the [place] population. Total proteinOrdered By: Quincy yash Jesus on 06-27-2024 Protein [Mass/Vol] 6.2 g/dL 5.9-8.4 [facility] Triglycerides measurementOrd ered By: Freddie Lee on 06-27-2024 Triglyceride [Mass/Vol] 114 mg/dL <199 [facility] Comment on above: The drugs N-Acetylcy steine and Metamizole may falsely depress this assay. Normal range: <150 mg/dLBorderline High: 150-199 mg/dLHigh: 200-499 mg/dLVery High: >500 mg/dL CNOVon 06-18-2024 CNOV Office Visit (NEMJULIO ) ----- ALEX CARPENTER ([id number]) 1935 M Date Time Provider Department 06/18/24 1:45 PM LEISA ROBB During your visit today, we recorded the following information about you: Pulse Blood pressure 82/minute 123/73 Leisa Robb PA-C 06/18/2024 2:43 PM Signed [facility] Name: Alex Greycarla [...] plan -- brain and L spine at [facility] (more content not included)... Normal [facility] MR Brain WO and W contrast I Jan 06-04-2024 * * *Final Report* * * DATE OF EXAM: Jun 04 2024 10:35AM [facility] 0295 - MRI BRAIN WO/W IVCON / PROCEDURE REASON: Other symptoms and signs involving the nervous system * * * * Physician Interpretation * * * * EXAMINATION: MRI BRAIN WO/W IVCON, MRA BRAIN WO IVCON, MRA CAROTID WO IVCON HISTORY: Other symptoms and signs involving the nervous system TECHNIQUE: Routine MRI brain protocol without and with contrast including diffusion images. Intracranial 3D whsd-pm-hzeymo MRA with post-processing performed at the modality [...] may be retrograde. [facility] * * *Final Report* * * DATE OF EXAM: Jun 04 2024 10:35AM [facility] 0295 - MRI BRAIN WO/W IVCON / PROCEDURE REASON: Other symptoms and signs involving the nervous system * * * * Physician Interpretation * * * * EXAMINATION: MRI BRAIN WO/W IVCON, MRA BRAIN WO IVCON, MRA CAROTID WO IVCON HISTORY: Other symptoms and signs involving the nervous system TECHNIQUE: Routine MRI brain protocol without and with contrast including diffusion images. Intracranial 3D vxxc-nh-rmcdxj MRA with post-processing performed at the modality [...] LEFT ICA origin stenosis. Patent intracranial circulation. Competitive Intelligence Manager: [facility] Transcribe Date/Time: Jun 04 2024 10:48A Dictated by : BRITTANIE MURCIA MD This examination was interpreted and the report reviewed and electronically signed by: BRITTANIE MURCIA MD on Jun 04 2024 11:12AM [facility] MR Lumbar spine WO and W con trast Alisa 06-04-2024 IMPRESSION: Degenerative changes at multiple levels most severe at L3-L4 as itemized above. Anatomic Lumbar Variant: None. L4-5 is considered the level of the iliac crest and assume there are 5 lumbar-type vertebrae. Competitive Intelligence Manager: [facility] Transcribe Date/Time: Jun 04 2024 11:13A Dictated by : BRITTANIE MURCIA MD This examination was interpreted and the report reviewed and electronically signed by: BRITTANIE MURCIA MD on Jun 04 2024 11:17AM [facility] DIVISION OF RADIOLOGY * * *Final Report* * * DATE OF EXAM: Jun 04 2024 10:35AM [facility] 0304 - MRI LUMBAR SPINE WO/W IVCON [...] within normal limits. DIVISION OF RADIOLOGY Provider, [facility] - 06/04/2024 * * *Final Report* * * DATE OF EXAM: Jun 04 2024 10:35AM [facility] 0304 - MRI LUMBAR SPINE WO/W IVCON [...] and assume there are 5 lumbar-type vertebrae. Competitive Intelligence Manager: [employer] Transcribe Date/Time: Jun 04 2024 11:13A Dictated by : BRITTANIE MURCIA MD This examination was interpreted and the report reviewed and electronically signed by: BRITTANIE MURCIA MD on Jun 04 2024 11:17AM EST [facility] Radiology Study observation (narrative) [facility] MR Lumbar spine WO and W con trast IVOrdered By: [facility] Provider on 06-04-2024 [facility] MRA BRAIN WO IVCONon 025 MRA BRAIN WO IVCON * * *Final Report* * * DATE OF EXAM: Jun 04 2024 10:35AM [facility] 0272 - MRA BRAIN WO IVCON / PROCEDURE REASON: Other symptoms and signs involving the nervous system * * * * Physician Interpretation * * * * EXAMINATION: MRI BRAIN WO/W IVCON, MRA BRAIN WO IVCON, MRA CAROTID WO IVCON HISTORY: Other symptoms and signs involving the nervous system TECHNIQUE: Routine MRI brain protocol without and with contrast including diffusion images. Intracranial 3D nubp-tf-uuqlgy MRA with post-processing performed at the modality [...] LEFT ICA origin stenosis. Patent intracranial circulation. Competitive Intelligence Manager: [employer] Transcribe Date/Time: Jun 04 2024 10:48A Dictated by : BRITTANIE MURCIA MD This examination was interpreted and the report reviewed and electronically signed by: BRITTANIE MURCIA MD on Jun 04 2024 11:12AM EST [id number] Normal [facility] MRA CAROTID WO IVCONon 06-04 MRA CAROTID WO IVCON * * *Final Report* * * DATE OF EXAM: Jun 04 2024 10:35AM [facility] 0275 - MRA CAROTID WO IVCON / PROCEDURE REASON: Other symptoms and signs involving the nervous system * * * * Physician Interpretation * * * * EXAMINATION: MRI BRAIN WO/W IVCON, MRA BRAIN WO IVCON, MRA CAROTID WO IVCON HISTORY: Other symptoms and signs involving the nervous system TECHNIQUE: Routine MRI brain protocol without and with contrast including diffusion images. Intracranial 3D xukq-vp-cbdmbf MRA with post-processing performed at the modality [...] LEFT ICA origin stenosis. Patent intracranial circulation. Competitive Intelligence Manager: [employer] Transcribe Date/Time: Jun 04 2024 10:48A Dictated by : BRITTANIE MURCIA MD This examination was interpreted and the report reviewed and electronically signed by: BRITTANIE MURCIA MD on Jun 04 2024 11:12AM EST [id number] Normal [facility] MRA Head vessels WO contrast on 06-04-2024 * * *Final Report* * * DATE OF EXAM: Jun 04 2024 10:35AM [facility] 0272 - MRA BRAIN WO IVCON / PROCEDURE REASON: Other symptoms and signs involving the nervous system * * * * Physician Interpretation * * * * EXAMINATION: MRI BRAIN WO/W IVCON, MRA BRAIN WO IVCON, MRA CAROTID WO IVCON HISTORY: Other symptoms and signs involving the nervous system TECHNIQUE: Routine MRI brain protocol without and with contrast including diffusion images. Intracranial 3D szlj-uu-menuvi MRA with post-processing performed at the modality [...] may be retrograde. DIVISION OF RADIOLOGY Provider, [facility] - 06/04/2024 * * *Final Report* * * DATE OF EXAM: Jun 04 2024 10:35AM [facility] 0272 - MRA BRAIN WO IVCON / PROCEDURE REASON: Other symptoms and signs involving the nervous system * * * * Physician Interpretation * * * * EXAMINATION: MRI BRAIN WO/W IVCON, MRA BRAIN WO IVCON, MRA CAROTID WO IVCON HISTORY: Other symptoms and signs involving the nervous system TECHNIQUE: Routine MRI brain protocol without and with contrast including diffusion images. Intracranial 3D fcum-hm-uyaylm MRA with post-processing performed at the modality [...] LEFT ICA origin stenosis. Patent intracranial circulation. Competitive Intelligence Manager: [employer] Transcribe Date/Time: Jun 04 2024 10:48A Dictated by : BRITTANIE MURCIA MD This examination was interpreted and the report reviewed and electronically signed by: BRITTANIE MURCIA MD on Jun 04 2024 11:12AM EST [facility] MRA Neck vessels WO contrast on 06-04-2024 * * *Final Report* * * DATE OF EXAM: Jun 04 2024 10:35AM [facility] 0275 - MRA CAROTID WO IVCON / PROCEDURE REASON: Other symptoms and signs involving the nervous system * * * * Physician Interpretation * * * * EXAMINATION: MRI BRAIN WO/W IVCON, MRA BRAIN WO IVCON, MRA CAROTID WO IVCON HISTORY: Other symptoms and signs involving the nervous system TECHNIQUE: Routine MRI brain protocol without and with contrast including diffusion images. Intracranial 3D mamy-gq-qkxkfv MRA with post-processing performed at the modality [...] may be retrograde. DIVISION OF RADIOLOGY Provider, [facility] - 06/04/2024 * * *Final Report* * * DATE OF EXAM: Jun 04 2024 10:35AM [facility] 0275 - MRA CAROTID WO IVCON / PROCEDURE REASON: Other symptoms and signs involving the nervous system * * * * Physician Interpretation * * * * EXAMINATION: MRI BRAIN WO/W IVCON, MRA BRAIN WO IVCON, MRA CAROTID WO IVCON HISTORY: Other symptoms and signs involving the nervous system TECHNIQUE: Routine MRI brain protocol without and with contrast including diffusion images. Intracranial 3D rqvd-qg-azlcps MRA with post-processing performed at the modality [...] LEFT ICA origin stenosis. Patent intracranial circulation. Competitive Intelligence Manager: [facility] Transcribe Date/Time: Jun 04 2024 10:48A Dictated by : BRITTANIE MURCIA MD This examination was interpreted and the report reviewed and electronically signed by: BRITTANIE MURCIA MD on Jun 04 2024 11:12AM [facility] MRI BRAIN WO/W IVCONon 06-04 MRI BRAIN WO/W IVCON * * *Final Report* * * DATE OF EXAM: Jun 04 2024 10:35AM [facility] 0295 - MRI BRAIN WO/W IVCON / PROCEDURE REASON: Other symptoms and signs involving the nervous system * * * * Physician Interpretation * * * * EXAMINATION: MRI BRAIN WO/W IVCON, MRA BRAIN WO IVCON, MRA CAROTID WO IVCON HISTORY: Other symptoms and signs involving the nervous system TECHNIQUE: Routine MRI brain protocol without and with contrast including diffusion images. Intracranial 3D hthq-zy-osuxdo MRA with post-processing performed at the modality [...] LEFT ICA origin stenosis. Patent intracranial circulation. Competitive Intelligence Manager: [employer] Transcribe Date/Time: Jun 04 2024 10:48A Dictated by : BRITTANIE MURCIA MD This examination was interpreted and the report reviewed and electronically signed by: BRITTANIE MURCIA MD on Jun 04 2024 11:12AM EST [id number] Normal [facility] MRI LUMBAR SPINE WO/W IVCONo n 06-04-2024 MRI LUMBAR SPINE WO/W IVCON * * *Final Report* * * DATE OF EXAM: Jun 04 2024 10:35AM [facility] 0304 - MRI LUMBAR SPINE WO/W IVCON [...] and assume there are 5 lumbar-type vertebrae. Competitive Intelligence Manager: [employer] Transcribe Date/Time: Jun 04 2024 11:13A Dictated by : BRITTANIE MURCIA MD This examination was interpreted and the report reviewed and electronically signed by: BRITTANIE MURCIA MD on Jun 04 2024 11:17AM EST [id number] Normal [facility] No Panel Informationon 06-04 IMPRESSION: No acute intracranial process. 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 Patent intracranial circulation. Competitive Intelligence Manager: [employer] Transcribe Date/Time: Jun 04 2024 10:48A Dictated by : BRITTANIE MURCIA MD This examination was interpreted and the report reviewed and electronically signed by: BRITTANIE MURCIA MD on Jun 04 2024 11:12AM EST DIVISION OF RADIOLOGY Radiology Study observation (narrative) [facility] No Panel InformationOrdered By: Ccf Provider on 06-04-2024 [facility] CBC W Auto Differential pane l (Bld)on 05-28-2024 Basophils (Bld) [#/Vol] 0.05 10*3/uL Normal <0.11 [facility] Comment on above: Order Comment: Speci men Type: BLOOD SPECIMEN Ordering Facility: [facility] Address: [address] [place] [address] Performed By: #### 4 537-7 #### [facility] CLIA [id number] [address] [place] [address] [place] Basophils/100 WBC (Bld) 0.3 % Normal [facility] Comment on above: Order Comment: Speci men Type: BLOOD SPECIMEN Ordering Facility: [facility] Address: [address] [place] [address] Performed By: #### 4 537-7 #### [facility] CLIA [id number] [address] [place] [address] [place] Differential cell count method Nom (Bld) Auto Normal [facility] Comment on above: Order Comment: Speci men Type: BLOOD SPECIMEN Ordering Facility: [facility] Address: [address] [place] [address] Performed By: #### 4 537-7 #### [facility] CLIA [id number] [address] [place] [address] [place] Eosinophils (Bld) [#/Vol] 0.06 10*3/uL Normal <0.46 [facility] Comment on above: Order Comment: Speci men Type: BLOOD SPECIMEN Ordering Facility: [facility] Address: [address] [place] [address] Performed By: #### 4 537-7 #### [facility] CLIA [id number] [address] [place] [address] [place] Eosinophils/100 WBC (Bld) 0.4 % Normal [facility] Comment on above: Order Comment: Speci men Type: BLOOD SPECIMEN Ordering Facility: [facility] Address: [address] [place] [address] Performed By: #### 4 537-7 #### [facility] CLIA [id number] [address] [place] [address] [place] Erythrocyte distribution width (RBC) [Ratio] 12.9 % Normal 11.5-15.0 [facility] Comment on above: Order Comment: Speci men Type: BLOOD SPECIMEN Ordering Facility: [facility] Address: [address] [place] [address] Performed By: #### 4 537-7 #### [facility] CLIA [id number] [address] [place] [address] [place] Hematocrit (Bld) [Volume fraction] 40.9 % Normal 39.0-51.0 [facility] Comment on above: Order Comment: Speci men Type: BLOOD SPECIMEN Ordering Facility: [facility] Address: [address] [place] [address] Performed By: #### 4 537-7 #### [facility] CLIA [id number] [address] [place] [address] [place] Hemoglobin (Bld) [Mass/Vol] 13.7 g/dL Normal 13.0-17.0 [facility] Comment on above: Order Comment: Speci men Type: BLOOD SPECIMEN Ordering Facility: [facility] Address: [address] [place] [address] Performed By: #### 4 537-7 #### [facility] CLIA [id number] [address] [place] [address] [place] Immature granulocytes (Bld) [#/Vol] 0.11 10*3/uL High <0.10 [facility] Comment on above: Order Comment: Speci men Type: BLOOD SPECIMEN Ordering Facility: [facility] Address: [address] [place] [address] Performed By: #### 4 537-7 #### [facility] CLIA [id number] [address] [place] [address] [place] Immature granulocytes/100 WBC (Bld) 0.7 % Normal [facility] Comment on above: Order Comment: Speci men Type: BLOOD SPECIMEN Ordering Facility: [facility] Address: [address] [place] [address] Performed By: #### 4 537-7 #### [facility] CLIA [id number] [address] [place] [address] [place] Lymphocytes (Bld) [#/Vol] 0.86 10*3/uL Low 1.00-4.00 [facility] Comment on above: Order Comment: Speci men Type: BLOOD SPECIMEN Ordering Facility: [facility] Address: [address] [place] [address] Performed By: #### 4 537-7 #### [facility] CLIA [id number] [address] [place] [address] [place] Lymphocytes/100 WBC (Bld) 5.7 % Normal [facility] Comment on above: Order Comment: Speci men Type: BLOOD SPECIMEN Ordering Facility: [facility] Address: [address] [place] [address] Performed By: #### 4 537-7 #### [facility] CLIA [id number] [address] [place] [address] [place] MCH (RBC) [Entitic mass] 31.1 pg Normal 26.0-34.0 [facility] Comment on above: Order Comment: Speci men Type: BLOOD SPECIMEN Ordering Facility: [facility] Address: [address] [place] [address] Performed By: #### 4 537-7 #### [facility] CLIA [id number] [address] [place] [address] [place] MCHC (RBC) [Mass/Vol] 33.5 g/dL Normal 30.5-36.0 [facility] Comment on above: Order Comment: Speci men Type: BLOOD SPECIMEN Ordering Facility: [facility] Address: [address] [place] [address] Performed By: #### 4 537-7 #### [facility] CLIA [id number] [address] [place] [address] [place] MCV (RBC) [Entitic vol] 93.0 fL Normal 80.0-100.0 [facility] Comment on above: Order Comment: Speci men Type: BLOOD SPECIMEN Ordering Facility: [facility] Address: [address] [place] [address] Performed By: #### 4 537-7 #### [facility] CLIA [id number] [address] [place] [address] [place] Monocytes (Bld) [#/Vol] 1.09 10*3/uL High <0.87 [facility] Comment on above: Order Comment: Speci men Type: BLOOD SPECIMEN Ordering Facility: [facility] Address: [address] [place] [address] Performed By: #### 4 537-7 #### [facility] CLIA [id number] [address] [place] [address] [place] Monocytes/100 WBC (Bld) 7.2 % Normal [facility] Comment on above: Order Comment: Speci men Type: BLOOD SPECIMEN Ordering Facility: [facility] Address: [address] [place] [address] Performed By: #### 4 537-7 #### [facility] CLIA [id number] [address] [place] [address] [place] Neutrophils (Bld) [#/Vol] 12.88 10*3/uL High 1.45-7.50 [facility] Comment on above: Order Comment: Speci men Type: BLOOD SPECIMEN Ordering Facility: [facility] Address: [address] [place] [address] Performed By: #### 4 537-7 #### [facility] CLIA [id number] [address] [place] [address] [place] Neutrophils/100 WBC (Bld) 85.7 % Normal [facility] Comment on above: Order Comment: Speci men Type: BLOOD SPECIMEN Ordering Facility: [facility] Address: [address] [place] [address] Performed By: #### 4 537-7 #### [facility] CLIA [id number] [address] [place] [address] [place] Nucleated RBC (Bld) [#/Vol] 10*3/uL Normal <0.01 [facility] Comment on above: Order Comment: Speci men Type: BLOOD SPECIMEN Ordering Facility: [facility] Address: [address] [place] [address] Performed By: #### 4 537-7 #### [facility] CLIA [id number] [address] [place] [address] [place] Nucleated RBC/100 WBC (Bld) [Ratio] 0.0 /100 WBC Normal [facility] Comment on above: Order Comment: Speci men Type: BLOOD SPECIMEN Ordering Facility: [facility] Address: [address] [place] [address] Performed By: #### 4 537-7 #### [facility] CLIA [id number] [address] [place] [address] [place] Platelet mean volume (Bld) [Entitic vol] 10.1 fL Normal 9.0-12.7 [facility] Comment on above: Order Comment: Speci men Type: BLOOD SPECIMEN Ordering Facility: [facility] Address: [address] [place] [address] Performed By: #### 4 537-7 #### [facility] CLIA [id number] [address] [place] [address] [place] Platelets (Bld) [#/Vol] 329 10*3/uL Normal 150-400 [facility] Comment on above: Order Comment: Speci men Type: BLOOD SPECIMEN Ordering Facility: [facility] Address: [address] [place] [address] Performed By: #### 4 537-7 #### [facility] CLIA [id number] [address] [place] [address] [place] RBC (Bld) [#/Vol] 4.40 10*6/uL Normal 4.20-6.00 [facility] Comment on above: Order Comment: Speci men Type: BLOOD SPECIMEN Ordering Facility: [facility] Address: [address] [place] [address] Performed By: #### 4 537-7 #### [facility] CLIA [id number] [address] [place] [address] [place] WBC (Bld) [#/Vol] 15.05 10*3/uL High 3.70-11.00 [facility] Comment on above: Order Comment: Speci men Type: BLOOD SPECIMEN Ordering Facility: [facility] Address: [address] [place] [address] Performed By: #### 4 537-7 #### [facility] CLIA [id number] [address] [place] [address] [place] CNOVSPon 05-28-2024 CNOVSP Visit (SP) Office (HEMAWS) ----- ALEX CARPENTER ([id number]) 1935 M Date Time Provider Department 05/28/24 [...] tablets (180mg) by mouth once daily. Fish Oil-[place]-3 Fatty Acids 500-300 mg ORAL Cap Take by mouth. (Patient not taking: Reported on 05/28/2024) REVIEW OF SYSTEMS: GENERAL: No fever, night sweats, weight loss or malaise. All other reviewed an (more content not included)... Normal [facility] metabolic 2000 panelon 05-28-2024 Albumin [Mass/Vol] 4.1 g/dL Normal 3.9-4.9 [facility] Comment on above: Order Comment: Speci men Type: BLOOD SPECIMEN Ordering Facility: [facility] Address: [address] [place] [address] Performed By: #### 4 537-7 #### [facility] CLIA [id number] [address] [place] [address] [place] ALP [Catalytic activity/Vol] 89 U/L Normal 38-113 [facility] Comment on above: Order Comment: Speci men Type: BLOOD SPECIMEN Ordering Facility: [facility] Address: [address] [place] [address] Performed By: #### 4 537-7 #### [facility] CLIA [id number] [address] [place] [address] [place] ALT [Catalytic activity/Vol] 9 U/L Low 10-54 [facility] Comment on above: Order Comment: Speci men Type: BLOOD SPECIMEN Ordering Facility: [facility] Address: [address] [place] [address] Performed By: #### 4 537-7 #### [facility] CLIA [id number] [address] [place] [address] [place] Anion gap [Moles/Vol] 11 mmol/L Normal 8-15 [facility] Comment on above: Order Comment: Speci men Type: BLOOD SPECIMEN Ordering Facility: [facility] Address: [address] [place] [address] Performed By: #### 4 537-7 #### [facility] CLIA [id number] [address] [place] [address] [place] AST [Catalytic activity/Vol] 17 U/L Normal 14-40 [facility] Comment on above: Order Comment: Speci men Type: BLOOD SPECIMEN Ordering Facility: [facility] Address: [address] [place] [address] Performed By: #### 4 537-7 #### [facility] CLIA [id number] [address] [place] [address] [place] Bilirubin [Mass/Vol] 0.8 mg/dL Normal 0.2-1.3 [facility] Comment on above: Order Comment: Speci men Type: BLOOD SPECIMEN Ordering Facility: [facility] Address: [address] [place], [place] [address] Performed By: #### 4 537-7 #### [facility] CLIA [id number] [address] [place], [place] [address] [place] Calcium [Mass/Vol] 9.4 mg/dL Normal 8.5-10.2 [facility] Comment on above: Order Comment: Speci men Type: BLOOD SPECIMEN Ordering Facility: [facility] Address: [address] [place] [address] Performed By: #### 4 537-7 #### [facility] CLIA [id number] [address] [place], [place] [address] [place] Chloride [Moles/Vol] 101 mmol/L Normal 98-107 [facility] Comment on above: Order Comment: Speci men Type: BLOOD SPECIMEN Ordering Facility: [facility] Address: [address] [place], [place] [address] Performed By: #### 4 537-7 #### [facility] CLIA [id number] [address] [place], [place] [address] [place] CO2 [Moles/Vol] 26 mmol/L Normal 22-30 [facility] Comment on above: Order Comment: Speci men Type: BLOOD SPECIMEN Ordering Facility: [facility] Address: [address] [place], [place] [address] Performed By: #### 4 537-7 #### [facility] CLIA [id number] [address] [place] [address] [place] Creatinine [Mass/Vol] 1.02 mg/dL Normal 0.73-1.22 [facility] Comment on above: Order Comment: Edgard wood Type: BLOOD SPECIMEN Ordering Facility: [facility] Address: [address] [place] [address] Performed By: #### 4 537-7 #### [facility] CLIA [id number] [address] [place] [address] [place] Creatinine and Glomerular filtration rate.predicted panel (S/P/Bld) 71 mL/min/1.73m??? Normal >=60 [facility] Comment on above: Order Comment: Edgard wood Type: BLOOD SPECIMEN Ordering Facility: [facility] Address: [address] [place] [address] Result Comment: Isabel mated Glomerular Filtration Rate [...] GFR. Performed By: #### 4 537-7 #### [facility] CLIA [id number] [address] [place] [address] [place] Glucose [Mass/Vol] 132 mg/dL High 74-99 [facility] Comment on above: Order Comment: Edgard wood Type: BLOOD SPECIMEN Ordering Facility: [facility] Address: [address] [place] [address] Result Comment: The [place] [employer] Association (ADA) provides guidance for cutoff [...] Standards of Medical Care in Diabetes 2016, [place] [employer]. Diabetes Care. 2016.39(Suppl 1). Performed By: #### 4 537-7 #### [facility] CLIA [id number] [address] [place] [address] [place] Potassium [Moles/Vol] 3.4 mmol/L Low 3.7-5.1 [facility] Comment on above: Order Comment: Speci men Type: BLOOD SPECIMEN Ordering Facility: [facility] Address: [address] [place] [address] Performed By: #### 4 537-7 #### [facility] CLIA [id number] [address] [place] [address] [place] Protein [Mass/Vol] 6.8 g/dL Normal 6.3-8.0 [facility] Comment on above: Order Comment: Speci men Type: BLOOD SPECIMEN Ordering Facility: [facility] Address: [address] [place] [address] Performed By: #### 4 537-7 #### [facility] CLIA [id number] [address] [place] [address] [place] Sodium [Moles/Vol] 138 mmol/L Normal 136-144 [facility] Comment on above: Order Comment: Speci men Type: BLOOD SPECIMEN Ordering Facility: [facility] Address: [address] [place] [address] Performed By: #### 4 537-7 #### [facility] CLIA [id number] [address] [place] [address] [place] Urea nitrogen [Mass/Vol] 25 mg/dL High 9-24 [facility] Comment on above: Order Comment: Speci men Type: BLOOD SPECIMEN Ordering Facility: [facility] Address: [address] [place] [address] Performed By: #### 4 537-7 #### [facility] CLIA [id number] [address] [place], [place] [address] [place] PSA SerPl-mCncon 05-28-2024 Prostate specific Ag [Mass/Vol] 0.14 ng/mL Normal <2.60 [facility] Comment on above: Order Comment: Speci men Type: BLOOD SPECIMEN Ordering Facility: [facility] Address: [address] [place] [address] Result Comment: Tota l PSA test methodology used is the Electrochemiluminescence Immunoassay by [employer]. Total PSA values by differing methodologies cannot be interchanged. Performed By: #### 4 537-7 #### [facility] CLIA [id number] [address] [place] [address] [place] CNCOon 05-24-2024 CNCO Letter Text Normal [facility] CNOVon 05-24-2024 CNOV Office Visit (NEMOWS ) ----- ALEX CARPENTER ([id number]) 1935 M Date Time Provider Department 05/24/24 [...] imaging. 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 Pt reports symptoms of balance difficulties started about 1-2 years ago. Pt states he thinks it was due to starting a chemo medication or at least balance issues got worse - med was stopped but still did not improve. Pt states "first of all I got knee problems and they are bone on bone". However does not feel the knees give [...] ORAL Ta (more content not included)... Normal [facility] 05-24-2024 CNPN Telephone (JOSEJULIO) ----- DAIALEX ([id number]) 1935 M Date Time Provider Department 05/24/24 KAUSHAL STOCKTON JR During your visit today, we recorded the following information about you: Renetta Edouard LPN 05/24/2024 11:55 AM Signed Kaushal Stockton Jr., MD P tr Neur [facility] Nurse Please request recent labs including B12, sed rate, TSH, AZ, A1c, CMP from PCP office. Thank you. 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 - Fish Oil-[place]-3 Fatty Acids 500-300 mg ORAL Cap Take by mouth. 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 [place] [address] / REEVALUATION / MEDICARE RECERTIFICATION PHYSICAL THERAPY MR#: [id number] Acct: [id number] Name: ALEX CARPENTER Rep #: [id number] : 1935 88 From: Otto Shirley DPT, OCS, CSCS Referring Dr.: Dr. Otto Subramanian MD Status:REG R Insurance: [facility] SELF PAY INSURANCE Re-Evaluation Intro: Dr. [...] but feeling like he can change that. [id number]/week for 4 weeks Please do the following... 1. Ensure verbally patient doing HEP daily at home and add to it as compliance improves. 2. 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 Sincerely, Otto Shirley, DPT, OCS, CSCS 05/23/24 1129 CC: Dr. Otto Subramanian MD EBG Signed For Medicare only, by signing this I certify the plan of care. ___ Physicians Signature Date Normal [facility] PT Communicationon 5 PT Communication [facility] Physical [facility] [place] [address] [place] [address] Fax REHABILITATION SERVICES PROGRESS NOTE MR#: [id number] Acct: [id number] Name: ALEX CARPENTER Rep #: [id number] : 1935 88 From: Otto Shirley DPT, DENISE, CSCS Referring Dr.: Dr. Otto Subramanian MD Status:REG RCR Insurance: [facility] PT Communication Note 04/22/[address] Otto Subramanian MD , Thank you for the referral of Alex to [facility] for balance testing. I have enclosed a [...] 04/22/24 1042 S> Date Otto Shirley DPT, OCS, CSCS Cosigner Signature (if applicable): Date CC: Dr. Otto Subramanian MD Signed For Medicare only, by signing this I certify the plan of care. ___ Physicians Signature Date Normal [facility] Inital Evaluation (1) - PTon 04-15-2024 Inital Evaluation (1) - PT [facility] [address] [place] [address] / REHABILITATION SERVICES INITIAL EVALUATION MR#: [id number] Acct: [id number] Name: ALEX CARPENTER Rep #: [id number] : 1935 88 From: Otto Shirley DPT, OCS, CSCS Referring Dr.: Dr. Otto Subramanian MD Status: REG R CR Insurance: [facility] SELF PAY INSURANCE Patient's Visit Information [...] tired or uneven surfaces. 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 Also on course [...] not an issue but wakes up at [facility] with pain some times. Has electric [...] to be FAXED BACK to us at [phone] for Medicare purposes. For Medicare only, by signing this I certify the plan of care. Please let me know if there are questions or concerns regarding this plan of care. Physician Signature: Date: _ 04/15/24 1314 CC: Dr. Otto Subramanian MD EBG Signed Normal [facility] CBC W Auto Differential pane l (Bld)on 03-05-2024 Basophils (Bld) [#/Vol] 10*3/uL Normal <0.11 [facility] Comment on above: Order Comment: Speci men Type: BLOOD SPECIMENOrdering Facility: [facility] Address: [address] [place] [address] Performed By: #### 5 7021-8 ####[facility] [id number] [place] [address] [place] Basophils/100 WBC (Bld) 0.1 % Normal [facility] Comment on above: Order Comment: Speci men Type: BLOOD SPECIMENOrdering Facility: [facility] Address: [address] [place] [address] Performed By: #### 5 7021-8 ####[facility] [id number] [place] [address] [place] Differential cell count method Nom (Bld) Auto Normal [facility] Comment on above: Order Comment: Speci men Type: BLOOD SPECIMENOrdering Facility: [facility] Address: [address] [place] [address] Performed By: #### 5 7021-8 ####[facility] [id number] [place] [address] [place] Eosinophils (Bld) [#/Vol] 10*3/uL Normal <0.46 [facility] Comment on above: Order Comment: Speci men Type: BLOOD SPECIMENOrdering Facility: [facility] Address: [address] [place] [address] Performed By: #### 5 7021-8 ####[facility] [id number] [place] [address] [place] Eosinophils/100 WBC (Bld) 0.0 % Normal [facility] Comment on above: Order Comment: Speci men Type: BLOOD SPECIMENOrdering Facility: [facility] Address: [address] [place] [address] Performed By: #### 5 7021-8 ####[facility] [id number] [place] [address] [place] Erythrocyte distribution width (RBC) [Ratio] 13.1 % Normal 11.5-15.0 [facility] Comment on above: Order Comment: Speci men Type: BLOOD SPECIMENOrdering Facility: [facility] Address: [address] [place] [address] Performed By: #### 5 7021-8 ####[facility] [id number] [place] [address] [place] Hematocrit (Bld) [Volume fraction] 39.8 % Normal 39.0-51.0 [facility] Comment on above: Order Comment: Speci men Type: BLOOD SPECIMENOrdering Facility: [facility] Address: [address] [place] [address] Performed By: #### 5 7021-8 ####[facility] ERNCLI [id number] [place] [address] [place] Hemoglobin (Bld) [Mass/Vol] 13.7 g/dL Normal 13.0-17.0 [facility] Comment on above: Order Comment: Speci men Type: BLOOD SPECIMENOrdering Facility: [facility] Address: [address] [place] [address] Performed By: #### 5 7021-8 ####[facility] DONNA [id number] [place] [address] [place] Immature granulocytes (Bld) [#/Vol] 0.23 10*3/uL High <0.10 [facility] Comment on above: Order Comment: Speci men Type: BLOOD SPECIMENOrdering Facility: [facility] Address: [address] [place] [address] Performed By: #### 5 7021-8 ####[facility] ERMASONA [id number] [place] [address] [place] Immature granulocytes/100 WBC (Bld) 1.6 % Normal [facility] Comment on above: Order Comment: Speci men Type: BLOOD SPECIMENOrdering Facility: [facility] Address: [address] [place] [address] Performed By: #### 5 7021-8 ####[facility]ANGE[facility] [id number] [place] [address] [place] Lymphocytes (Bld) [#/Vol] 0.96 10*3/uL Low 1.00-4.00 [facility] Comment on above: Order Comment: Speci men Type: BLOOD SPECIMENOrdering Facility: [facility] Address: [address] [place] [address] Performed By: #### 5 7021-8 ####[facility] [id number] [place] [address] [place] Lymphocytes/100 WBC (Bld) 6.5 % Normal [facility] Comment on above: Order Comment: Speci men Type: BLOOD SPECIMENOrdering Facility: [facility] Address: [address] [place] [address] Performed By: #### 5 7021-8 ####[facility] [id number] [place] [address] [place] MCH (RBC) [Entitic mass] 31.6 pg Normal 26.0-34.0 [facility] Comment on above: Order Comment: Speci men Type: BLOOD SPECIMENOrdering Facility: [facility] Address: [address] [place] [address] Performed By: #### 5 7021-8 ####[facility] [id number] [place] [address] [place] MCHC (RBC) [Mass/Vol] 34.4 g/dL Normal 30.5-36.0 [facility] Comment on above: Order Comment: Speci men Type: BLOOD SPECIMENOrdering Facility: [facility] Address: [address] [place] [address] Performed By: #### 5 7021-8 ####[facility] [id number] [place] [address] [place] MCV (RBC) [Entitic vol] 91.9 fL Normal 80.0-100.0 [facility] Comment on above: Order Comment: Speci men Type: BLOOD SPECIMENOrdering Facility: [facility] Address: [address] [place] [address] Performed By: #### 5 7021-8 ####[facility] [id number] [place] [address] [place] Monocytes (Bld) [#/Vol] 0.75 10*3/uL Normal <0.87 [facility] Comment on above: Order Comment: Speci men Type: BLOOD SPECIMENOrdering Facility: [facility] Address: [address] [place] [address] Performed By: #### 5 7021-8 ####[facility] [id number] [place] [address] [place] Monocytes/100 WBC (Bld) 5.1 % Normal [facility] Comment on above: Order Comment: Speci men Type: BLOOD SPECIMENOrdering Facility: [facility] Address: [address] [place] [address] Performed By: #### 5 7021-8 ####[facility] [id number] [place] [address] [place] Neutrophils (Bld) [#/Vol] 12.70 10*3/uL High 1.45-7.50 [facility] Comment on above: Order Comment: Speci men Type: BLOOD SPECIMENOrdering Facility: [facility] Address: [address] [place] [address] Performed By: #### 5 7021-8 ####[facility] [id number] [place] [address] [place] Neutrophils/100 WBC (Bld) 86.7 % Normal [facility] Comment on above: Order Comment: Speci men Type: BLOOD SPECIMENOrdering Facility: [facility] Address: [address] [place] [address] Performed By: #### 5 7021-8 ####[facility] [id number] [place] [address] [place] Nucleated RBC (Bld) [#/Vol] 10*3/uL Normal <0.01 [facility] Comment on above: Order Comment: Speci men Type: BLOOD SPECIMENOrdering Facility: [facility] Address: [address] [place] [address] Performed By: #### 5 7021-8 ####[facility] [id number] [place] [address] [place] Nucleated RBC/100 WBC (Bld) [Ratio] 0.0 /100 WBC Normal [facility] Comment on above: Order Comment: Speci men Type: BLOOD SPECIMENOrdering Facility: [facility] Address: [address] [place] [address] Performed By: #### 5 7021-8 ####[facility] DONNA [id number] [place] [address] [place] Platelet mean volume (Bld) [Entitic vol] 10.2 fL Normal 9.0-12.7 [facility] Comment on above: Order Comment: Speci men Type: BLOOD SPECIMENOrdering Facility: [facility] Address: [address] [place] [address] Performed By: #### 5 7021-8 ####[facility] ADRIANROCKFORDJANA [id number] [place] [address] [place] Platelets (Bld) [#/Vol] 305 10*3/uL Normal 150-400 [facility] Comment on above: Order Comment: Speci men Type: BLOOD SPECIMENOrdering Facility: [facility] Address: [address] [place] [address] Performed By: #### 5 7021-8 ####[facility] ADRIANROCKFORDNCBIBIANAA [id number] [place] [address] [place] RBC (Bld) [#/Vol] 4.33 10*6/uL Normal 4.20-6.00 [facility] Comment on above: Order Comment: Speci men Type: BLOOD SPECIMENOrdering Facility: [facility] Address: [address] [place] [address] Performed By: #### 5 7021-8 ####[facility] ERNCLIA [id number] [place] [address] [place] WBC (Bld) [#/Vol] 14.66 10*3/uL High 3.70-11.00 [facility] Comment on above: Order Comment: Speci men Type: BLOOD SPECIMENOrdering Facility: 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 He had been [...] (Patient not taking: Reported on 07/11/2022) Fish Oil-[place]-3 Fatty Acids 500-300 mg ORAL Cap Take one(1) tablet daily. (Patient not taking: Reported on 03/05/2024) REVIEW OF SYSTEMS: GENERAL: No fever, night sweats, weight loss or malaise. All other rev (more content not included)... Normal [facility] Comprehensive metabolic 2000 panelon 03-05-2024 Albumin [Mass/Vol] 4.1 g/dL Normal 3.9-4.9 [facility] Comment on above: Order Comment: Speci men Type: BLOOD SPECIMENOrdering Facility: [facility] Address: [address] [place] [address] Performed By: #### 2 4323-8 ####[facility] [id number] [place] [address] [place] ALP [Catalytic activity/Vol] 115 U/L High 38-113 [facility] Comment on above: Order Comment: Speci men Type: BLOOD SPECIMENOrdering Facility: [facility] Address: [address] [place] [address] Performed By: #### 2 4323-8 ####[facility] MILLTOWNCLIA [id number] [place] [address] [place] ALT [Catalytic activity/Vol] 13 U/L Normal 10-54 [facility] Comment on above: Order Comment: Speci men Type: BLOOD SPECIMENOrdering Facility: [facility] Address: [address] [place] [address] Performed By: #### 2 4323-8 ####[facility] MILLTOWNCLIA [id number] [place] [address] [place] Anion gap [Moles/Vol] 12 mmol/L Normal 8-15 [facility] Comment on above: Order Comment: Speci men Type: BLOOD SPECIMENOrdering Facility: [facility] Address: [address] [place] [address] Performed By: #### 2 4323-8 ####[facility] MILLTOWNCLIA [id number] [place] [address] [place] AST [Catalytic activity/Vol] 15 U/L Normal 14-40 [facility] Comment on above: Order Comment: Speci men Type: BLOOD SPECIMENOrdering Facility: [facility] Address: [address] [place] [address] Performed By: #### 2 4323-8 ####[facility] MILLTOWNCLIA [id number] [place] [address] [place] Bilirubin [Mass/Vol] 0.5 mg/dL Normal 0.2-1.3 [facility] Comment on above: Order Comment: Speci men Type: BLOOD SPECIMENOrdering Facility: [facility] Address: [address] [place] [address] Performed By: #### 2 4323-8 ####[facility] MILLTOWNCLIA [id number] [place] [address] [place] Calcium [Mass/Vol] 9.3 mg/dL Normal 8.5-10.2 [facility] Comment on above: Order Comment: Speci men Type: BLOOD SPECIMENOrdering Facility: [facility] Address: [address] [place] [address] Performed By: #### 2 4323-8 ####[facility]ENTERWNCLIA [id number] [place] [address] [place] Chloride [Moles/Vol] 105 mmol/L Normal 98-107 [facility] Comment on above: Order Comment: Speci men Type: BLOOD SPECIMENOrdering Facility: [facility] Address: [address] [place] [address] Performed By: #### 2 4323-8 ####[facility]ENTERWNCLIA [id number] [place] [address] [place] CO2 [Moles/Vol] 25 mmol/L Normal 22-30 [facility] Comment on above: Order Comment: Speci men Type: BLOOD SPECIMENOrdering Facility: [facility] Address: [address] [place] [address] Performed By: #### 2 4323-8 ####[facility] [id number] [place] [address] [place] Creatinine [Mass/Vol] 0.94 mg/dL Normal 0.73-1.22 [facility] Comment on above: Order Comment: Speci men Type: BLOOD SPECIMENOrdering Facility: [facility] Address: [address] [place] [address] Performed By: #### 2 4323-8 ####[facility] ERNCLIA [id number] [place] [address] [place] Creatinine and Glomerular filtration rate.predicted panel (S/P/Bld) 78 mL/min/1.73m??? Normal >=60 [facility] Comment on above: Order Comment: Speci men Type: BLOOD SPECIMENOrdering Facility: [facility] Address: [address] [place] [address] Result Comment: Isabel mated Glomerular Filtration Rate [...] actual GFR. Performed By: #### 2 4323-8 ####[facility] [id number] [place] [address] [place] Glucose [Mass/Vol] 169 mg/dL High 74-99 [facility] Comment on above: Order Comment: Edgard wood Type: BLOOD SPECIMENOrdering Facility: [facility] Address: [address] [place] [address] Result Comment: The [place] Diabetes Association (ADA) provides guidance for cutoff [...] Standards of Medical Care in Diabetes 2016, [place] [employer] Association. Diabetes Care. 2016.39(Suppl 1). Performed By: #### 2 4323-8 ####[facility] [id number] [place] [address] [place] Potassium [Moles/Vol] 3.3 mmol/L Low 3.7-5.1 [facility] Comment on above: Order Comment: Edgard wood Type: BLOOD SPECIMENOrdering Facility: [facility] Address: [address] [id number] Performed By: #### 2 4323-8 ####[facility]ENTERWNCLIA [id number] [place] [address] [place] Protein [Mass/Vol] 6.4 g/dL Normal 6.3-8.0 [facility] Comment on above: Order Comment: Speci men Type: BLOOD SPECIMENOrdering Facility: [facility] Address: [address] [place] [address] Performed By: #### 2 4323-8 ####[facility] CENTERWMASONLIA [id number] [place] [address] [place] Sodium [Moles/Vol] 142 mmol/L Normal 136-144 [facility] Comment on above: Order Comment: Speci men Type: BLOOD SPECIMENOrdering Facility: [facility] Address: [address] [place] [address] Performed By: #### 2 4323-8 ####[facility] [id number] [place] [address] [place] Urea nitrogen [Mass/Vol] 27 mg/dL High 9-24 [facility] Comment on above: Order Comment: Speci men Type: BLOOD SPECIMENOrdering Facility: [facility] Address: [address] [place] [address] Performed By: #### 2 4323-8 ####[facility] ERNCLIA [id number] [place] [address] [place] [facility] Prostate specific Ag [Mass/Vol] 0.15 ng/mL Normal <2.60 [facility] Comment on above: Order Comment: Speci men Type: BLOOD SPECIMEN [facility] Address: [address] [place] [address] Result Comment: Tota l PSA test methodology used is the Electrochemiluminescence Immunoassay by [employer]. Total PSA values by differing methodologies cannot be interchanged. Performed By: #### 4 537-7 #### [facility] CLIA [id number] [address] [place] [address] [place] Basic Metabolic Profile (BMP )on 01-24-2024 BUN/CRE 24.1 RATIO High 10-20 [facility] Comment on above: Performed By: #### L 501.5200, L501.3620, L501.9520, L500.2500, L100.0100 ####[facility] [address] [place], [address] CA,Total 8.8 mg/dL Normal 8.5-10.1 [facility] Comment on above: Performed By: #### L 501.5200, L501.3620, L501.9520, L500.2500, L100.0100 ####[facility] [address] [place], [address] Chloride [Moles/Vol] 109 mmol/L High 98-107 [facility] Comment on above: Performed By: #### L 501.5200, L501.3620, L501.9520, L500.2500, L100.0100 ####[facility] [address] [place], [address] CO2 [Moles/Vol] 27.0 mmol/L Normal 21.0-32.0 [facility] Comment on above: Performed By: #### L 501.5200, L501.3620, L501.9520, L500.2500, L100.0100 ####[facility] [address] [place], [address] Creatinine [Mass/Vol] 1.16 mg/dL Normal 0.70-1.30 [facility] Comment on above: Result Comment: The validity of the calculated GFR GFRAA in patients over 70 years has not been determined. Clinical correlation is essential. Performed By: #### L 501.5200, L501.3620, L501.9520, L500.2500, L100.0100 ####[facility] [address] [place], [address] ECRCL 49.01 ml/min Normal [facility] Comment on above: Performed By: #### L 501.5200, L501.3620, L501.9520, L500.2500, L100.0100 ####[facility] [address] [place], [address] EST GFR - AA 77 mL/min Normal >60 [facility] Comment on above: Result Comment: Afri can [place] GFR Calc Performed By: #### L 501.5200, L501.3620, L501.9520, L500.2500, L100.0100 ####[facility] [address] [place], [address] GAP 6 Normal 5-15 [facility] Comment on above: Performed By: #### L 501.5200, L501.3620, L501.9520, L500.2500, L100.0100 ####[facility] [address] [place], [address] GFR/1.73 sq M.predicted among non-blacks MDRD (S/P/Bld) [Vol rate/Area] 63 mL/min/{1.73_m2} Normal >60 [facility] Comment on above: Result Comment: Non- GFR Calc Performed By: #### L 501.5200, L501.3620, L501.9520, L500.2500, L100.0100 ####[facility] [address] [place], [address] Glucose [Mass/Vol] 120 mg/dL High 74-106 [facility] Comment on above: Result Comment: Fast ing Glucose result from 100 to 125 mg/dL suggests IMPAIRED HOMEOSTASIS per A.D.A. criteria. Performed By: #### L 501.5200, L501.3620, L501.9520, L500.2500, L100.0100 ####[facility] [address] [place], [address] Potassium [Moles/Vol] 3.8 mmol/L Normal 3.5-5.1 [facility] Comment on above: Performed By: #### L 501.5200, L501.3620, L501.9520, L500.2500, L100.0100 ####[facility] [address] [place], [address] Sodium [Moles/Vol] 143 mmol/L Normal 136-145 [facility] Comment on above: Performed By: #### L 501.5200, L501.3620, L501.9520, L500.2500, L100.0100 ####[facility] [address] [place], [address] Urea nitrogen [Mass/Vol] 28 mg/dL High 7-18 [facility] Comment on above: Performed By: #### L 501.5200, L501.3620, L501.9520, L500.2500, L100.0100 ####[facility] [address] [place], [address] Brain/Head without Contrasto n 01-24-2024 Brain/Head without Contrast [facility] [address] [address] Brain/Head without Contrast MR#: [id number] Acct: [id number] Name: ALEX CARPENTER Rep #: [id number] : 1935 M 88 From: [facility] Magallon PCP: Dr. Otto Subramanian MD Status: REG ER Study: Brain/Head without Contrast Date of Exam: 09/10 Exam# [id number] Ordering Dr: Sabas Nayak DO [id number] INDICATION: fall EXAMINATION: CT BRAIN - CT [...] 6:21 EST Reading Location ID and State: [address] [place] [address] Tel , Service support , CC: Dr. Otto Subramanian MD; Sabas Nayak DO Competitive Intelligence Manager: Signed Normal [facility] CBC W/Diff, Automatedon 11-0 Absolute Lymph 0.74 X10 3/uL Low 0.83-4.51 [facility] Comment on above: Performed By: #### L 501.5200, L501.3620, L501.9520, L500.2500, L100.0100 ####[facility] [address] [place], [address] Absolute Neut 8.9 X10 3/uL High 2.0-7.7 [facility] Comment on above: Performed By: #### L 501.5200, L501.3620, L501.9520, L500.2500, L100.0100 ####[facility] [address] [place], [address] Basophils/100 WBC (Bld) 0.6 % Normal 0-1 [facility] Comment on above: Performed By: #### L 501.5200, L501.3620, L501.9520, L500.2500, L100.0100 ####[facility] [address] [place], [address] Eosinophils/100 WBC (Bld) 1.6 % Normal 0-5 [facility] Comment on above: Performed By: #### L 501.5200, L501.3620, L501.9520, L500.2500, L100.0100 ####[facility] [address] [place], [address] Erythrocyte distribution width (RBC) [Ratio] 13.6 % Normal 11.6-14.6 [facility] Comment on above: Performed By: #### L 501.5200, L501.3620, L501.9520, L500.2500, L100.0100 ####[facility] [address] [place], [address] Hematocrit (Bld) [Volume fraction] 39.3 % Low 40-54 [facility] Comment on above: Performed By: #### L 501.5200, L501.3620, L501.9520, L500.2500, L100.0100 ####[facility] [address] [place], [address] Hemoglobin (Bld) [Mass/Vol] 13.1 g/dL Normal 13.0-16.5 [facility] Comment on above: Performed By: #### L 501.5200, L501.3620, L501.9520, L500.2500, L100.0100 ####[facility] [address] [place], [address] IG% 2.200 High 0.0-0.9 [facility] Comment on above: Result Comment: IG% - Immature Granulocytes (promyelocytes, myelocytes and metamyelocytes) > 1% indicates that a LEFT SHIFT is Present. Performed By: #### L 501.5200, L501.3620, L501.9520, L500.2500, L100.0100 ####[facility] [address] [place], [address] Lymphocytes/100 WBC (Bld) 6.8 % Low 19-41 [facility] Comment on above: Performed By: #### L 501.5200, L501.3620, L501.9520, L500.2500, L100.0100 ####[facility] [address] [place], [address] MCH (RBC) [Entitic mass] 31.3 pg Normal 27.0-32.0 [facility] Comment on above: Performed By: #### L 501.5200, L501.3620, L501.9520, L500.2500, L100.0100 ####[facility] [address] [place], [address] MCHC (RBC) [Mass/Vol] 33.3 g/dL Normal 32-36 [facility] Comment on above: Performed By: #### L 501.5200, L501.3620, L501.9520, L500.2500, L100.0100 ####[facility] [address] [place], [address] MCV (RBC) [Entitic vol] 94.0 fL Normal 80-94 [facility] Comment on above: Performed By: #### L 501.5200, L501.3620, L501.9520, L500.2500, L100.0100 ####[facility] [address] [place], [address] Monocytes/100 WBC (Bld) 7.0 % Normal 0-10 [facility] Comment on above: Performed By: #### L 501.5200, L501.3620, L501.9520, L500.2500, L100.0100 ####[facility] [address] [place], [address] Neutrophils/100 WBC (Bld) 81.8 % High 47-70 [facility] Comment on above: Performed By: #### L 501.5200, L501.3620, L501.9520, L500.2500, L100.0100 ####[facility] [address] [place], [address] Nucleated RBC (Bld) [#/Vol] 0 10*3/uL Normal 0-5 [facility] Comment on above: Performed By: #### L 501.5200, L501.3620, L501.9520, L500.2500, L100.0100 ####[facility] [address] [place], [address] Platelet mean volume (Bld) [Entitic vol] 10.3 fL Normal 6.2-12.0 [facility] Comment on above: Performed By: #### L 501.5200, L501.3620, L501.9520, L500.2500, L100.0100 ####[facility] [address] [place], [address] Platelets (Bld) [#/Vol] 210 10*3/uL Normal 150-450 [facility] Comment on above: Performed By: #### L 501.5200, L501.3620, L501.9520, L500.2500, L100.0100 ####[facility] [address] [place], [address] RBC (Bld) [#/Vol] 4.18 10*6/uL Low 4.6-6.2 [facility] Comment on above: Performed By: #### L 501.5200, L501.3620, L501.9520, L500.2500, L100.0100 ####[facility] [address] [place], [address] RDW SD 46.9 fl High 35.1-43.9 [facility] Comment on above: Performed By: #### L 501.5200, L501.3620, L501.9520, L500.2500, L100.0100 ####[facility] [address] [place], [address] WBC (Bld) [#/Vol] 10.9 10*3/uL Normal 4.4-11.0 [facility] Comment on above: Performed By: #### L 501.5200, L501.3620, L501.9520, L500.2500, L100.0100 ####[facility] [address] [place], [address] CPK Total, Creatine Kinaseon 01-24-2024 CPK TOTAL 36 U/L Low 39-308 [facility] Comment on above: Performed By: #### L 501.5200, L501.3620, L501.9520, L500.2500, L100.0100 ####[facility] [address] [place], [address] Emergency Department Summary on 01-24-2024 Emergency Department Summary [facility] Medical Records Department [address] [place] [address] Emergency Department Summary 01/24/24 MR#: [id number] Acct: [id number] Name: ALEX CARPENTER Rep #: [id number] : 1935 88 From: Sabas Nayak DO [...] thinner use. He states that he could "not get up" and therefore EMS had to be called. Even when they arrived he had difficulty holding himself up and secondary to this he was brought to the hospital for evaluation. Upon arrival to the ER the patient's main complaint is pain along his left rib cage [facility] Medical History Bilateral carotid bruits Nonrheumatic aortic (valve) stenosis Essential hypertension SHAMAR (obstructive sleep apnea) Old myocardial infarction Diastolic dysfunction Premature atrial contractions Cardiac murmur Hyperlipidemia Hypertension Atherosclerotic heart disease of [place] coronary artery without angina pectoris Home Medications ???Medication ???Instructions ???Recorded ???Last Taken ???Type aspirin 81 mg tablet,delayed 81 mg PO QDAY 11/06/17 Unknown History release bispkpelceo-rusvjepmg-jxw C-Mn 750 1 ea PO DAILY 05/19/19 [...] tablet 25 mg PO BID #180 tabs 04/23/24 Unknown Rx hydrochlorothiazide 12.5 mg tablet 12.5 [...] PO DAILY 01/24/24 Unknown History (CoQ-10) omega 6-jou-jrw-fish oil 300 1 cap PO DAILY 01/24/24 [...] 01/24/24 04:39 Temperature 98.4 F 98.4 F [place] (more content not included)... Normal [facility] Lumbar Spine 2 or 3 Viewson 01-24-2024 Lumbar Spine 2 or 3 Views [facility] [address] [place], [place] [address] Lumbar Spine 2 or 3 Views MR#: [id number] Acct: [id number] Name: ALEX CARPENTER Rep #: [id number] : 1935 M 88 From: Bora Magallon PCP: Dr. Otto Subramanian MD Status: [facility] ER Study: Lumbar Spine 2 or 3 Views Date of Exam: Exam# [id number] Ordering Dr: Sabas Nayak DO [id number] INDICATION: fall EXAMINATION/TECHNIQUE: X-RAY - XR Spine [...] Signed: Bora Sadler MD at 6:09 EST , CC: Dr. Otto Subramanian MD; Sabas Nayak DO Competitive Intelligence Manager: Signed Normal [facility] Magnesiumon 01-24-2024 Magnesium [Mass/Vol] 2.2 mg/dL Normal 1.6-2.6 [facility] Comment on above: Performed By: #### L 501.5200, L501.3620, L501.9520, L500.2500, L100.0100 ####[facility] [address] [place], [address] Pelvis 1 or 2 Viewson 2023 Pelvis 1 or 2 Views [facility] [address] [place] [address] Pelvis 1 or 2 Views MR#: [id number] Acct: [id number] Name: ALEX CARPENTER Rep #: [id number] : 1935 M 88 From: Bora Magallon PCP: Dr. Otto Subramanian MD Status: [facility] ER Study: Pelvis 1 or 2 Views Date of Exam: 01/24/24 Exam# [id number] Ordering Dr: Sabas Nayak DO [id number] INDICATION: fall EXAMINATION/TECHNIQUE: X-RAY - XR Pelvis [...] 6:16 EST Reading Location ID and State: [facility] / [place] Tel , Service support , CC: Dr. Otto Subramanian MD; Sabas Nayak DO Competitive Intelligence Manager: Signed Normal [facility] Ribs Uni Min 3V w/PA Cheston 01-24-2024 Ribs Uni Min 3V w/PA Chest [facility] [address] [facility] [place] [place] [id number] Ribs Uni Min 3V w/PA Chest MR#: [id number] Acct: [id number] Name: ALEX CARPENTER Rep #: [id number] : 1935 M 88 From: Bora Magallon PCP: Dr. Otto Subramanian MD Status: [facility] ER Study: Ribs Uni Min 3V w/PA Chest Date of Exam: 01/23 Exam# [id number] Ordering Dr: Sabas Nayak DO [id number] INDICATION: pain EXAMINATION/TECHNIQUE: X-RAY - XR Ribs [...] 6:14 EST Reading Location ID and State: [facility] / [place] Tel , Service support , CC: Dr. Otto Subramanian MD; Sabas Nayak DO Competitive Intelligence Manager: Signed Normal [facility] Spine Cervical without Contr ason 01-24-2024 Spine Cervical without Contras [facility] [address] [facility] [place], [place] [address] Spine Cervical without Contras MR#: [id number] Acct: [id number] Name: ALEX CARPENTER Rep #: [id number] : 1935 M 88 From: Bora Magallon PCP: Dr. Otto Subramanian MD Status: [facility] Study: Spine Cervical without Contras Date of Exam: 03/25/23 Exam# [id number] Ordering Dr: Sabas Nayak DO [id number] INDICATION: fall EXAMINATION: CT CERVICAL SPINE - [...] 6:30 EST Reading Location ID and State: [facility] / [place] Tel , Service support , CC: Dr. Otto Subramanian MD; Sabas Nayak DO Competitive Intelligence Manager: Signed Normal [facility] Thoracic Spine 3 Viewson Thoracic Spine 3 Views [facility] [address] [place], [place] [id number] Thoracic Spine 3 Views MR#: [id number] Acct: [id number] Name: ALEX CARPENTER Rep #: [id number] : 1935 88 From: Bora Magallon PCP: Dr. Otto Subramanian MD Status: [facility] ER Study: Thoracic Spine 3 Views Date of Exam: 01/24/24 Exam# [id number] Ordering Dr: Sabas Nayak DO [id number] INDICATION: fall EXAMINATION/TECHNIQUE: X-RAY - XR Spine [...] 6:12 EST Reading Location ID and State: [facility] / [place] Tel , Service support , CC: Dr. Otto Subramanian MD; Sabas Nayak DO Competitive Intelligence Manager: Signed Normal [facility] Thyroid Stim Hormone (TSH)on 01-24-2024 TSH 4.030 uIU/mL High 0.358-3.740 [facility] Comment on above: Performed By: #### L 501.5200, L501.3620, L501.9520, L500.2500, L100.0100 ####[facility] [address] [place], [address] CNOVon 01-23-2024 CNOV Office Visit (UROLWS ) ----- ALEX CARPENTER ([id number]) 1935 M Date Time Provider Department 01/23/24 3:30 PM PRANAV TATE UROYAYA During your visit today, we recorded the [...] Pranav Tate PA-C 01/23/2024 8:33 PM Signed [facility] EST PATIENT CLINIC NOTE SERVICE DATE: January 23, 2024 NAME: Alex Carpenter CHIEF COMPLAINT: Hx of Adenocarcinoma of Prostate and OAB HISTORY OF PRESENT ILLNESS: Alex Carpenter is a 88 year old male an established patient following up for Hx of Adenocarcinoma of Prostate and OAB The patient reports running out of his Ditropan and new Rx sent to [facility] today Continued follow-up with Medical Oncology PSA [...] 1 tablet by mouth once daily. Fish Oil-[place]field-3 Fatty Acids 500-300 mg ORAL Cap Take [...] resp. rate 20, height 170.2 cm (5' 7"), weight 88.5 kg (195 lb), SpO2 96%. [...] 0 ml (more content not included)... Normal [facility] UA DIP, URINE (POC)on 2023 BILIRUBIN UA (POCT) Negative Negative [facility] CLARITY UA (POCT) Clear [facility] COLOR UA (POCT) Yellow [facility] GLUCOSE UA (POCT) Negative Negative mg/dL [facility] Hemoglobin Ql (U) Negative Negative [facility] KETONE UA (POCT) Negative Negative mg/dL [facility] LEUKOCYTES UA (POCT) Negative Negative [facility] NITRITE UA (POCT) Negative Negative [facility] PH UA (POCT) 6.5 4.5 - 8.0 [facility] Protein Ql (U) Negative Negative mg/dL [facility] SPECIFIC GRAVITY UA (POCT) 1.025 1.005 - 1.030 [facility] UROBILINOGEN UA (POCT) 0.2 Vijaya l E.U./dL [facility] Location:[facility], [address] POINT OF CARE [facility] CBC W Auto Differential pane l (Bld)on 12-12-2023 Basophils (Bld) [#/Vol] 0.04 10*3/uL Normal <0.11 [facility] Comment on above: Order Comment: Speci men Type: BLOOD SPECIMENOrdering Facility: [facility] Address: [address] [place] [address] Performed By: #### 5 7021-8 ####[facility] [id number] [place] [address] [place] Basophils/100 WBC (Bld) 0.5 % Normal [facility] Comment on above: Order Comment: Speci men Type: BLOOD SPECIMENOrdering Facility: [facility] Address: [address] [place] [address] Performed By: #### 5 7021-8 ####[facility] [id number] [place] [address] [place] Differential cell count method Nom (Bld) Auto Normal [facility] Comment on above: Order Comment: Speci men Type: BLOOD SPECIMENOrdering Facility: [facility] Address: [address] [place] [address] Performed By: #### 5 7021-8 ####[facility]NCINTERM[facility] [id number] [place] [address] [place] Eosinophils (Bld) [#/Vol] 0.24 10*3/uL Normal <0.46 [facility] Comment on above: Order Comment: Speci men Type: BLOOD SPECIMENOrdering Facility: [facility] Address: [address] [place] [address] Performed By: #### 5 7021-8 ####[facility] [id number] [place] [address] [place] Eosinophils/100 WBC (Bld) 3.1 % Normal [facility] Comment on above: Order Comment: Speci men Type: BLOOD SPECIMENOrdering Facility: [facility] Address: [address] [place] [address] Performed By: #### 5 7021-8 ####[facility] [id number] [place] [address] [place] Erythrocyte distribution width (RBC) [Ratio] 13.1 % Normal 11.5-15.0 [facility] Comment on above: Order Comment: Speci men Type: BLOOD SPECIMENOrdering Facility: [facility] Address: [address] [place] [address] Performed By: #### 5 7021-8 ####[facility] [id number] [place] [address] [place] Hematocrit (Bld) [Volume fraction] 39.4 % Normal 39.0-51.0 [facility] Comment on above: Order Comment: Speci men Type: BLOOD SPECIMENOrdering Facility: [facility] Address: [address] [place] [address] Performed By: #### 5 7021-8 ####[facility] ADRIANROCKFORDJANA [id number] [place] [address] [place] Hemoglobin (Bld) [Mass/Vol] 13.3 g/dL Normal 13.0-17.0 [facility] Comment on above: Order Comment: Speci men Type: BLOOD SPECIMENOrdering Facility: [facility] Address: [address] [place] [address] Performed By: #### 5 7021-8 ####[facility] ERNCINTERMOUNT[facility] [id number] [place] [address] [place] Immature granulocytes (Bld) [#/Vol] 0.05 10*3/uL Normal <0.10 [facility] Comment on above: Order Comment: Speci men Type: BLOOD SPECIMENOrdering Facility: [facility] Address: [address] [place] [address] Performed By: #### 5 7021-8 ####[facility] [id number] [place] [address] [place] Immature granulocytes/100 WBC (Bld) 0.6 % Normal [facility] Comment on above: Order Comment: Speci men Type: BLOOD SPECIMENOrdering Facility: [facility] Address: [address] [place] [address] Performed By: #### 5 7021-8 ####[facility] ERNCLIA [id number] [place] [address] [place] Lymphocytes (Bld) [#/Vol] 0.75 10*3/uL Low 1.00-4.00 [facility] Comment on above: Order Comment: Speci men Type: BLOOD SPECIMENOrdering Facility: [facility] Address: [address] [place] [address] Performed By: #### 5 7021-8 ####[facility] ADRIANROCKFORDKALEIGHA [id number] [place] [address] [place] Lymphocytes/100 WBC (Bld) 9.5 % Normal [facility] Comment on above: Order Comment: Speci men Type: BLOOD SPECIMENOrdering Facility: [facility] Address: [address] [place] [address] Performed By: #### 5 7021-8 ####[facility] [id number] [place] [address] [place] MCH (RBC) [Entitic mass] 30.9 pg Normal 26.0-34.0 [facility] Comment on above: Order Comment: Speci men Type: BLOOD SPECIMENOrdering Facility: [facility] Address: [address] [place] [address] Performed By: #### 5 7021-8 ####[facility] [id number] [place] [address] [place] MCHC (RBC) [Mass/Vol] 33.8 g/dL Normal 30.5-36.0 [facility] Comment on above: Order Comment: Speci men Type: BLOOD SPECIMENOrdering Facility: [facility] Address: [address] [place] [address] Performed By: #### 5 7021-8 ####[facility] [id number] [place] [address] [place] MCV (RBC) [Entitic vol] 91.6 fL Normal 80.0-100.0 [facility] Comment on above: Order Comment: Speci men Type: BLOOD SPECIMENOrdering Facility: [facility] Address: [address] [place] [address] Performed By: #### 5 7021-8 ####[facility] ERNCINTERMOUNT[facility] [id number] [place] [address] [place] Monocytes (Bld) [#/Vol] 0.48 10*3/uL Normal <0.87 [facility] Comment on above: Order Comment: Speci men Type: BLOOD SPECIMENOrdering Facility: [facility] Address: [address] [place] [address] Performed By: #### 5 7021-8 ####[facility] [id number] [place] [address] [place] Monocytes/100 WBC (Bld) 6.1 % Normal [facility] Comment on above: Order Comment: Speci men Type: BLOOD SPECIMENOrdering Facility: [facility] Address: [address] [place] [address] Performed By: #### 5 7021-8 ####[facility] [id number] [place] [address] [place] Neutrophils (Bld) [#/Vol] 6.30 10*3/uL Normal 1.45-7.50 [facility] Comment on above: Order Comment: Speci men Type: BLOOD SPECIMENOrdering Facility: [facility] Address: [address] [place] [address] Performed By: #### 5 7021-8 ####[facility] [id number] [place] [address] [place] Neutrophils/100 WBC (Bld) 80.2 % Normal [facility] Comment on above: Order Comment: Speci men Type: BLOOD SPECIMENOrdering Facility: [facility] Address: [address] [place] [address] Performed By: #### 5 7021-8 ####[facility] [id number] [place] [address] [place] Nucleated RBC (Bld) [#/Vol] 10*3/uL Normal <0.01 [facility] Comment on above: Order Comment: Speci men Type: BLOOD SPECIMENOrdering Facility: [facility] Address: [address] [place] [address] Performed By: #### 5 7021-8 ####[facility] DONNA [id number] [place] [address] [place] Nucleated RBC/100 WBC (Bld) [Ratio] 0.0 /100 WBC Normal [facility] Comment on above: Order Comment: Speci men Type: BLOOD SPECIMENOrdering Facility: [facility] Address: [address] [place] [address] Performed By: #### 5 7021-8 ####[facility] ADRIANROCKFORDJANA [id number] [place] [address] [place] Platelet mean volume (Bld) [Entitic vol] 10.4 fL Normal 9.0-12.7 [facility] Comment on above: Order Comment: Speci men Type: BLOOD SPECIMENOrdering Facility: [facility] Address: [address] [place] [address] Performed By: #### 5 7021-8 ####[facility] ERJANA [id number] [place] [address] [place] Platelets (Bld) [#/Vol] 213 10*3/uL Normal 150-400 [facility] Comment on above: Order Comment: Speci men Type: BLOOD SPECIMENOrdering Facility: [facility] Address: [address] [place] [address] Performed By: #### 5 7021-8 ####[facility] ERMASONLIA [id number] [place] [address] [place] RBC (Bld) [#/Vol] 4.30 10*6/uL Normal 4.20-6.00 [facility] Comment on above: Order Comment: Speci men Type: BLOOD SPECIMENOrdering Facility: [facility] Address: [address] [place] [address] Performed By: #### 5 7021-8 ####[facility] ADRIANTOWNCLIA [id number] [place] [address] [place] WBC (Bld) [#/Vol] 7.86 10*3/uL Normal 3.70-11.00 [facility] Comment on above: Order Comment: Speci men Type: BLOOD SPECIMENOrdering Facility: [facility] Address: [facility] [place] [address] Performed By: #### 5 7021-8 ####[facility] ADRIANROCKFORDNCLIA [id number] [place] [address] [place] CNOVSPon 12-12-2023 CNOVSP Visit (SP) Office (HEMAWS) ----- ALEX CARPENTER ([id number]) 1935 M Date Time Provider Department 12/12/23 10:00 AM TREATMENT RM [address] [facility] WSTRHEMAWS During your visit today, we recorded the following information about you: Referring Provider: BREE CORNEJO [[id number]] Allergies As of Date: 12/12/2023 Noted Allergy [...] 100 mL (ZOMETA)Disp: Rfl: BCN NURSING COMMUNICATION [[id number]] Order #: [id number]: 1 STANDING Prescriptions as of 12/12/2023 - [...] tablet by mouth once daily. - Fish Oil-[place]-3 Fatty Acids 500-300 mg ORAL Cap Take one(1) tablet daily. 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 He had been [...] (Patient not taking: Reported on 07/11/2022) Fish Oil-[place]field-3 Fatty Acids 500-300 mg ORAL Cap Take one(1) tablet daily. Lab Results Component Value Date PSA 0.15 09/19/2023 PSA 0.17 (more content not included)... Normal [facility] Comprehensive metabolic 2000 panelon 12-12-2023 Albumin [Mass/Vol] 3.9 g/dL Normal 3.9-4.9 [facility] Comment on above: Order Comment: Speci men Type: BLOOD SPECIMENOrdering Facility: [facility] Address: [address] [place] [address] Performed By: #### 2 4323-8 ####[facility] [id number] [place] [address] [place] ALP [Catalytic activity/Vol] 89 U/L Normal 38-113 [facility] Comment on above: Order Comment: Speci men Type: BLOOD SPECIMENOrdering Facility: [facility] Address: [address] [place] [address] Performed By: #### 2 4323-8 ####[facility] [id number] [place] [address] [place] ALT [Catalytic activity/Vol] 10 U/L Normal 10-54 [facility] Comment on above: Order Comment: Speci men Type: BLOOD SPECIMENOrdering Facility: [facility] Address: [address] [place] [address] Performed By: #### 2 4323-8 ####[facility] RIDGETOWNCLIA [id number] [place] [address] [place] Anion gap [Moles/Vol] 10 mmol/L Normal 8-15 [facility] Comment on above: Order Comment: Speci men Type: BLOOD SPECIMENOrdering Facility: [facility] Address: [address] [place] [address] Performed By: #### 2 4323-8 ####[facility] [id number] [place] [address] [place] AST [Catalytic activity/Vol] 15 U/L Normal 14-40 [facility] Comment on above: Order Comment: Speci men Type: BLOOD SPECIMENOrdering Facility: [facility] Address: [address] [place] [address] Performed By: #### 2 4323-8 ####[facility] [id number] [place] [address] [place] Bilirubin [Mass/Vol] 0.7 mg/dL Normal 0.2-1.3 [facility] Comment on above: Order Comment: Speci men Type: BLOOD SPECIMENOrdering Facility: [facility] Address: [address] [place] [address] Performed By: #### 2 4323-8 ####[facility] ERNCLIA [id number] [place] [address] [place] Calcium [Mass/Vol] 9.4 mg/dL Normal 8.5-10.2 [facility] Comment on above: Order Comment: Speci men Type: BLOOD SPECIMENOrdering Facility: [facility] Address: [address] [place] [address] [place] [address] Performed By: #### 2 4323-8 ####[facility] [id number] [place] [address] [place] Chloride [Moles/Vol] 105 mmol/L Normal 98-107 [facility] Comment on above: Order Comment: Speci men Type: BLOOD SPECIMENOrdering Facility: [facility] Address: [address] [place] [address] Performed By: #### 2 4323-8 ####[facility] [id number] [place] [address] [place] CO2 [Moles/Vol] 26 mmol/L Normal 22-30 [facility] Comment on above: Order Comment: Speci men Type: BLOOD SPECIMENOrdering Facility: [facility] Address: [address] [place] [address] Performed By: #### 2 4323-8 ####[facility] [id number] [place] [address] [place] Creatinine [Mass/Vol] 1.00 mg/dL Normal 0.73-1.22 [facility] Comment on above: Order Comment: Speci men Type: BLOOD SPECIMENOrdering Facility: [facility] Address: [address] [place] [address] Performed By: #### 2 4323-8 ####[facility] [id number] [place] [address] [facility] Creatinine and Glomerular filtration rate.predicted panel (S/P/Bld) 73 mL/min/1.73m??? Normal >=60 [facility] Comment on above: Order Comment: Speci men Type: BLOOD SPECIMENOrdering Facility: [facility] Address: [address] [place] [address] Result Comment: Isabel mated Glomerular Filtration Rate [...] actual GFR. Performed By: #### 2 4323-8 ####[facility] CENTERWNCLIBarber [id number] [place] [address] [place] Glucose [Mass/Vol] 153 mg/dL High 74-99 [facility] Comment on above: Order Comment: Edgard wood Type: BLOOD SPECIMENOrdering Facility: [facility] Address: [address] [place] [address] Result Comment: The [place] Diabetes Association (ADA) provides guidance for cutoff [...] Standards of Medical Care in Diabetes 2016, [place] [employer]. Diabetes Care. 2016.39(Suppl 1). Performed By: #### 2 4323-8 ####[facility] ERNCLIA [id number] [place] [address] [place] Potassium [Moles/Vol] 3.3 mmol/L Low 3.7-5.1 [facility] Comment on above: Order Comment: Edgard wood Type: BLOOD SPECIMENOrdering Facility: [facility] Address: [address] [id number] Performed By: #### 2 4323-8 ####[facility] ERNCLIA [id number] [place] [address] [place] Protein [Mass/Vol] 6.3 g/dL Normal 6.3-8.0 [facility] Comment on above: Order Comment: Speci men Type: BLOOD SPECIMENOrdering Facility: [facility] Address: [address] [place] [address] Performed By: #### 2 4323-8 ####[facility] [id number] [place] [address] [place] Sodium [Moles/Vol] 141 mmol/L Normal 136-144 [facility] Comment on above: Order Comment: Speci men Type: BLOOD SPECIMENOrdering Facility: [facility] Address: [address] [place] [address] Performed By: #### 2 4323-8 ####[facility] [id number] [place] [address] [place] Urea nitrogen [Mass/Vol] 30 mg/dL High 9-24 [facility] Comment on above: Order Comment: Speci men Type: BLOOD SPECIMENOrdering Facility: [facility] Address: [address] [place] [address] Performed By: #### 2 4323-8 ####[facility] [id number] [place] [address] [place] [facility] Prostate specific Ag [Mass/Vol] 0.12 ng/mL Normal <2.60 [facility] Comment on above: Order Comment: Speci men Type: BLOOD SPECIMEN [facility] Address: [address] [place] [address] Result Comment: Tota l PSA test methodology used is the Electrochemiluminescence Immunoassay by [employer]. Total PSA values by differing methodologies cannot be interchanged. Performed By: #### 4 537-7 #### [facility] CLIA [id number] [address] [place] [address] [place] Absolute lymphocyte countOrd ered By: Marcos Ferraro on 10-15-2022 Lymphocytes Auto (Unsp spec) [#/Vol] 1.36 10*3/uL 0.83-4.51 [facility] Basophil percentageOrdered B y: Marcos Ferraro on 10-15-2022 Basophils/100 WBC (Bld) 0.4 % 0-1 [facility] Bilirubin [Mass/Vol] 1.10 mg/dL 0.20-1.00 [facility] Comment on above: For patients on eltr ombopag therapy, use of Dimension [place] TBIL is not recommended. Chloride [Moles/Vol] 108 mmol/L 98-107 [facility] Eosinophils/100 WBC (Bld) 3.0 % 0-5 [facility] Glucose [Mass/Vol] 124 mg/dL 74-106 [facility] Comment on above: Fasting Glucose resu lt from 100 to 125 mg/dL suggests IMPAIRED HOMEOSTASIS per A.D.A. criteria. Neutrophils (Bld) [#/Vol] 7.1 10*3/uL 2.0-7.7 [facility] Neutrophils/100 WBC (Bld) 73.5 % 47-70 [facility] Potassium [Moles/Vol] 3.1 mmol/L 3.5-5.1 [facility] Protein [Mass/Vol] 6.6 g/dL 6.4-8.2 [facility] Sodium [Moles/Vol] 143 mmol/L 136-145 [facility] WBC (Bld) [#/Vol] 9.7 10*3/uL 4.4-11.0 [facility] Blood erythrocytes count (nu mber/volume)Ordered By: Marcos Ferraro on 10-15-2022 RBC (Bld) [#/Vol] 4.38 10*6/uL 4.6-6.2 [facility] Blood hemoglobin measurement (mass/volume)Ordered By: Marcos Ferraro on 10-15-2022 Hemoglobin (Bld) [Mass/Vol] 13.9 g/dL 13.0-16.5 [facility] Blood lymphocytes/100 leukoc ytesOrdered By: Mracos Ferraro on 10-15-2022 Lymphocytes/100 WBC (Bld) 14.1 % 19-41 [facility] Blood monocytes/100 leukocyt esOrdered By: Marcos Ferraro on 10-15-2022 Monocytes/100 WBC (Bld) 8.5 % 0-10 [facility] Blood platelet mean volumeOr dered By: [facility] on 10-15-2022 Platelet mean volume (Bld) [Entitic vol] 11.2 fL 6.2-12.0 [facility] Determination of erythrocyte mean corpuscular volume (MCV)Ordered By: [facility] on 10-15-2022 MCV (RBC) [Entitic vol] 93.2 fL 80-94 [facility] Hematocrit Auto (Bld) [Volum e fraction]Ordered By: [facility] on 10-15-2022 Hematocrit (Bld) [Volume fraction] 40.8 % 40-54 [facility] Laboratory - Chemistry and C hemistry - challengeOrdered By: [facility] on 10-15-2022 ALP [Catalytic activity/Vol] 90 U/L 45-117 [facility] ALT [Catalytic activity/Vol] 21 U/L 16-61 [facility] CO2 [Moles/Vol] 30.0 mmol/L 21.0-32.0 [facility] Globulin (S) [Mass/Vol] 3.1 g/dL 2.2-4.2 [facility] Lipase [Catalytic activity/Vol] 29 U/L 13-75 [facility] Comment on above: Please note:LIPASE r evised reference range effective 22. New Lipase methodology. Expected to produce lower values than the previous assay method. NEW Reference Range: 13 - 75 U/L Urea nitrogen/Creatinine [Mass ratio] 18.6 mg/mg 10-20 [facility] Laboratory - Hematology and Cell countsOrdered By: [facility] on 10-15-2022 Erythrocyte distribution width (RBC) [Entitic vol] 43.7 fL 35.1-43.9 [facility] Erythrocyte distribution width (RBC) [Ratio] 12.7 % 11.6-14.6 [facility] Immature granulocytes/100 WBC (Bld) 0.500 % 0.0-0.9 [facility] Comment on above: IG% - Immature Granu locytes (promyelocytes, myelocytes and metamyelocytes) > 1% indicates that a LEFT SHIFT is Present. MCH (RBC) [Entitic mass] 31.7 pg 27.0-32.0 [facility] Nucleated RBC/100 WBC (Bld) [Ratio] 0 % 0-5 [facility] Auto (RBC) [Mass/Vol]Or dered By: Marcos Ferraro on 10-15-2022 MCHC (RBC) [Mass/Vol] 34.1 g/dL 32-36 [facility] No Panel InformationOrdered By: Marcos Ferraro on 10-15-2022 Estimated Creatinine Clearance Calc 43.47 ml/min [facility] Estimated GFR (MDRD) Amer 75 mL/min >60 [facility] Comment on above: GFR Calc Estimated GFR (MDRD) Non-Af Amer 62 mL/min >60 [facility] Comment on above: Non- GFR Calc Platelets bldOrdered By: Davide Ferraro on 10-15-2022 Platelets (Bld) [#/Vol] 254 10*3/uL 150-450 [facility] Serum or plasma albumin lilly urement (mass/volume)Ordered By: Marcos Ferraro on 10-15-2022 Albumin [Mass/Vol] 3.5 g/dL 3.2-5.0 [facility] Serum or plasma albumin/glob ulin mass ratioOrdered By: Marcos Ferraro on 10-15-2022 Albumin/Globulin [Mass ratio] 1.1 {ratio} 0.9-2.4 [facility] Serum or plasma calcium lilly urement (mass/volume)Ordered By: Marcos Ferraro on 10-15-2022 Calcium [Mass/Vol] 9.0 mg/dL 8.5-10.1 [facility] Serum or plasma creatinine m easurement (mass/volume)Ordered By: Marcos Ferraro on 10-15-2022 Creatinine [Mass/Vol] 1.18 mg/dL 0.70-1.30 [facility] Comment on above: The validity of the calculated GFR & GFRAA in patients over 70 years has not been determined. Clinical correlation is essential. Serum or plasma urea nitroge n measurement (mass/volume)Ordered By: Marcos Ferraro on 10-15-2022 Urea nitrogen [Mass/Vol] 22 mg/dL 7-18 [facility] Thin prep Papanicolaou smear with manual screeningOrdered By: Marcos Ferraro on 10-15-2022 Thin prep Papanicolaou smear with manual screening 21 U/L 15-37 [facility] Thin prep Papanicolaou smear with manual screening 5 5-15 [facility] Laboratory - Chemistry and C hemistry - challengeOrdered By: Dr. Subramanian on 07-28-2022 Albumin [Mass/Vol] 3.5 g/dL 2.9-4.4 [facility] Cobalamin (Vitamin B12) [Mass/Vol] 220 pg/mL 211-911 [facility] No Panel InformationOrdered By: Dr. Subramanian on 07-28-2022 Addendum Document Comment . [facility] Comment on above: The SPE pattern appe ars unremarkable. Evidence ofmonoclonal protein is not apparent.Performed at: [email or web address] [id number] Director: Hilton Gallegos PhD, Phone: [phone] Ymdzw-6-Eyshgrvhx 0.2 g/dL 0.0-0.4 [facility] Mczsx-6-Fnzrlddaq 0.7 g/dL 0.4-1.0 [facility] Gamma Globulins 0.6 g/dL 0.4-1.8 [facility] Thyroid Stimulating Hormone (TSH) 2.71 uIU/mL 0.358-3.74 [facility] Vitamin D 25-Hydroxy 65.8 ng/mL [facility] Comment on above: Vitamin D 25(OH) Sta tus Range Deficiency <20 ng/mL (50nmol/L) Insufficiency 20 - 30 ng/mL (50 - 75 nmol/L) Sufficiency 30 - 100 ng/mL (75 - 250 nmol/L) Toxicity >100 ng/mL (>250 nmol/L) Protein Fractions Elph [Inte rp]Ordered By: Dr. Subramanian on 07-28-2022 Protein Fractions [Interp] Comment . [facility] Comment on above: Protein electrophore sis scan will follow via computer,mail, or tool maker delivery. Serum albumin to globulin ra claudette by protein electrophoresisOrdered By: Dr. Subramanian on 07-28-2022 Albumin/Globulin Elph [Mass ratio] 1.5 0.7-1.7 [facility] Serum globulin measurement ( mass/volume)Ordered By: Dr. Subramanian on 07-28-2022 Globulin (S) [Mass/Vol] 2.4 g/dL 2.2-3.9 [facility] Serum or plasma beta globuli n measurement by electrophoresis (mass/volume)Ordered By: Dr. Subramanian on 07-28-2022 Beta globulin Elph [Mass/Vol] 0.9 g/dL 0.7-1.3 [facility] Serum or plasma folate measu rement (mass/volume)Ordered By: Dr. Subramanian on 07-28-2022 Folate [Mass/Vol] 10.30 ng/mL 3.1-55.4 [facility] Thin prep Papanicolaou smear with manual screeningOrdered By: Dr. Subramanian on 07-28-2022 Thin prep Papanicolaou smear with manual screening See comment [facility] Comment on above: NOT OBSERVED Total protein bloodOrdered B y: Dr. Subramanian on 07-28-2022 Protein [Mass/Vol] 5.9 g/dL 6.0-8.5 [facility] Absolute lymphocyte countOrd ered By: Dr. Staton on 06-22-2022 Lymphocytes Auto (Unsp spec) [#/Vol] 0.93 10*3/uL 0.83-4.51 [facility] Basophil percentageOrdered B y: Dr. Staton on 06-22-2022 Basophils/100 WBC (Bld) 0.7 % 0-1 [facility] Bilirubin [Mass/Vol] 0.40 mg/dL 0.20-1.00 [facility] Comment on above: For patients on eltr ombopag therapy, use of Dimension [place] TBIL is not recommended. Chloride [Moles/Vol] 109 mmol/L 98-107 [facility] Eosinophils/100 WBC (Bld) 5.5 % 0-5 [facility] Glucose [Mass/Vol] 112 mg/dL 74-106 [facility] Comment on above: Fasting Glucose resu lt from 100 to 125 mg/dL suggests IMPAIRED HOMEOSTASIS per A.D.A. criteria. Neutrophils (Bld) [#/Vol] 5.7 10*3/uL 2.0-7.7 [facility] Neutrophils/100 WBC (Bld) 70.4 % 47-70 [facility] Potassium [Moles/Vol] 4.0 mmol/L 3.5-5.1 [facility] Protein [Mass/Vol] 6.9 g/dL 6.4-8.2 [facility] Sodium [Moles/Vol] 142 mmol/L 136-145 [facility] WBC (Bld) [#/Vol] 8.1 10*3/uL 4.4-11.0 [facility] Basophil percentage 0 SEEN /hpf 0-5 [facility] Bilirubin Test strip Ql (U)O rdered By: Dr. Staton on 06-22-2022 Bilirubin Ql (U) Negative Negative [facility] Blood erythrocytes count (nu mber/volume)Ordered By: Dr. Staton on 06-22-2022 RBC (Bld) [#/Vol] 4.48 10*6/uL 4.6-6.2 [facility] Blood hemoglobin measurement (mass/volume)Ordered By: Dr. Staton on 06-22-2022 Hemoglobin (Bld) [Mass/Vol] 14.2 g/dL 13.0-16.5 [facility] Blood lymphocytes/100 leukoc ytesOrdered By: Dr. Staton on 06-22-2022 Lymphocytes/100 WBC (Bld) 11.6 % 19-41 [facility] Blood monocytes/100 leukocyt esOrdered By: Dr. Staton on 06-22-2022 Monocytes/100 WBC (Bld) 11.1 % 0-10 [facility] Blood platelet mean volumeOr dered By: Dr. Staton on 06-22-2022 Platelet mean volume (Bld) [Entitic vol] 10.3 fL 6.2-12.0 [facility] Determination of erythrocyte mean corpuscular volume (MCV)Ordered By: Dr. Staton on 06-22-2022 MCV (RBC) [Entitic vol] 96.4 fL 80-94 [facility] Hematocrit Auto (Bld) [Volum e fraction]Ordered By: Dr. Staton on 06-22-2022 Hematocrit (Bld) [Volume fraction] 43.2 % 40-54 [facility] Ketones Test strip Ql (U)Ord ered By: Dr. Staton on 06-22-2022 Ketones Ql (U) Negative Negative [facility] Laboratory - Chemistry and C hemistry - challengeOrdered By: Dr. Staton on 06-22-2022 ALP [Catalytic activity/Vol] 93 U/L 45-117 [facility] ALT [Catalytic activity/Vol] 17 U/L 16-61 [facility] CO2 [Moles/Vol] 28.0 mmol/L 21.0-32.0 [facility] Globulin (S) [Mass/Vol] 3.3 g/dL 2.2-4.2 [facility] Urea nitrogen/Creatinine [Mass ratio] 18.2 mg/mg 10-20 [facility] Laboratory - Hematology and Cell countsOrdered By: Dr. Staton on 06-22-2022 Erythrocyte distribution width (RBC) [Entitic vol] 45.6 fL 35.1-43.9 [facility] Erythrocyte distribution width (RBC) [Ratio] 12.8 % 11.6-14.6 [facility] Immature granulocytes/100 WBC (Bld) 0.700 % 0.0-0.9 [facility] Comment on above: IG% - Immature Granu locytes (promyelocytes, myelocytes and metamyelocytes) > 1% indicates that a LEFT SHIFT is Present. MCH (RBC) [Entitic mass] 31.7 pg 27.0-32.0 [facility] Nucleated RBC/100 WBC (Bld) [Ratio] 0 % 0-5 [facility] MCHC Auto (RBC) [Mass/Vol]Or dered By: Dr. Staton on 06-22-2022 MCHC (RBC) [Mass/Vol] 32.9 g/dL 32-36 [facility] Mucus LM Ql (Urine sed)Order ed By: Dr. Staton on 06-22-2022 Mucus Ql (Urine sed) 0 SEEN /hpf [facility] Nitrite Test strip Ql (U)Ord ered By: Dr. Staton on 06-22-2022 Nitrite Ql (U) Negative Negative [facility] No Panel InformationOrdered By: Dr. Staton on 06-22-2022 Estimated Creatinine Clearance Calc 43.18 ml/min [facility] Estimated GFR (MDRD) Amer 73 mL/min >60 [facility] Comment on above: GFR Calc Estimated GFR (MDRD) Non-Af Amer 61 mL/min >60 [facility] Comment on above: Non- GFR Calc Platelets bldOrdered By: Dr. Staton on 06-22-2022 Platelets (Bld) [#/Vol] 282 10*3/uL 150-450 [facility] Protein Test strip Ql (U)Ord ered By: Dr. Staton on 06-22-2022 Protein Ql (U) Negative Negative [facility] Serum or plasma albumin lilly urement (mass/volume)Ordered By: Dr. Staton on 06-22-2022 Albumin [Mass/Vol] 3.6 g/dL 3.2-5.0 [facility] Serum or plasma albumin/glob ulin mass ratioOrdered By: Dr. Staton on 06-22-2022 Albumin/Globulin [Mass ratio] 1.1 {ratio} 0.9-2.4 [facility] Serum or plasma calcium lilly urement (mass/volume)Ordered By: Dr. Staton on 06-22-2022 Calcium [Mass/Vol] 8.8 mg/dL 8.5-10.1 [facility] Serum or plasma creatinine m easurement (mass/volume)Ordered By: Dr. Staton on 06-22-2022 Creatinine [Mass/Vol] 1.21 mg/dL 0.70-1.30 [facility] Comment on above: The validity of the calculated GFR & GFRAA in patients over 70 years has not been determined. Clinical correlation is essential. Serum or plasma urea nitroge n measurement (mass/volume)Ordered By: Dr. Staton on 06-22-2022 Urea nitrogen [Mass/Vol] 22 mg/dL 7-18 [facility] Squamous epithelial cells de tection in urine sediment by light microscopyOrdered By: Dr. Staton on 06-22-2022 Epithelial cells.squamous LM Ql (Urine sed) 0 SEEN /hpf 0-5 [facility] Thin prep Papanicolaou smear with manual screeningOrdered By: Dr. Staton on 06-22-2022 Thin prep Papanicolaou smear with manual screening 17 U/L 15-37 [facility] Thin prep Papanicolaou smear with manual screening 5 5-15 [facility] Urine blood detectionOrdered By: Dr. Staton on 06-22-2022 RBC Ql (U) Negative Negative [facility] RBC Ql (U) 0 SEEN /hpf 0-5 [facility] Urine clarityOrdered By: Dr. Staton on 06-22-2022 Clarity (U) Clear Clear [facility] Urine color determinationOrd ered By: Dr. Staton on 06-22-2022 Color (U) Yellow Yellow [facility] Urine glucose detectionOrder ed By: Dr. Staton on 06-22-2022 Glucose Ql (U) Normal mg/dl Normal [facility] Urine leukocyte esterase det ection by dipstickOrdered By: Dr. Staton on 06-22-2022 Leukocyte esterase Test strip Ql (U) Negative Negative [facility] Urine pHOrdered By: Dr. Whitney maloney on 06-22-2022 pH (U) 7.0 [pH] 5.0 - 8.0 [facility] Urine sediment bacteria coun t by microscopy (number/high power field)Ordered By: Dr. Staton on 06-22-2022 Bacteria LM.HPF (Urine sed) [#/Area] RARE /hpf None Seen [facility] Urine specific gravity measu rementOrdered By: Dr. Staton on 06-22-2022 Specific gravity (U) [Rel density] 1.010 1.002-1.030 [facility] Urobilinogen Auto test strip Ql (U)Ordered By: Dr. Staton on 06-22-2022 Urobilinogen Ql (U) Normal mg/dl Normal [facility] VITAMIN D 25 HYDROXYon 10-08 25-hydroxyvitamin D3 [Mass/Vol] 24.6 ng/mL Low 31.0 - 80.0 ng/mL [facility] UA DIP, URINE (POC)on 2021 BILIRUBIN UA (POCT) Negative Negative [facility] CLARITY UA (POCT) Cloudy [facility] COLOR UA (POCT) Dark yellow [facility] GLUCOSE UA (POCT) Negative Negative mg/dL [facility] HEMOGLOBIN/BLOOD UA (POCT) Negative Negative [facility] KETONE UA (POCT) Negative Negative mg/dL [facility] LEUKOCYTES UA (POCT) Negative Negative [facility] NITRITE UA (POCT) Negative Negative [facility] PH UA (POCT) 7.5 4.5 - 8.0 [facility] Protein Ql (U) Negative Negative mg/dL [facility] SPECIFIC GRAVITY UA (POCT) 1.020 1.005 - 1.030 [facility] UROBILINOGEN UA (POCT) 1.0 E.U./dL Vijaya l E.U./dL [facility] Basophil percentageon 2021 Chloride [Moles/Vol] 107 mmol/L 98-107 [facility] Work Phone: Glucose [Mass/Vol] 109 mg/dL 74-106 [facility] Work Phone: Comment on above: Fasting Glucose resu lt from 100 to 125 mg/dL suggests IMPAIRED HOMEOSTASIS per A.D.A. criteria. Potassium [Moles/Vol] 3.2 mmol/L 3.5-5.1 [facility] Work Phone: Sodium [Moles/Vol] 143 mmol/L 136-145 [facility] Work Phone: Erythrocyte sedimentation ra brigid 09-17-2021 ESR (Bld) [Velocity] 28 mm/h 0-20 [facility] Work Phone: Interpretation of Borrelia b urgdorferi antibody assayon 09-17-2021 B. burgdorferi Ab (S) [Interp] REF LAB [facility] Work Phone: Laboratory - Chemistry and C hemistry - challengeon 09-17-2021 CO2 [Moles/Vol] 28.0 mmol/L 21.0-32.0 [facility] Work Phone: Magnesium [Mass/Vol] 2.4 mg/dL 1.6-2.6 [facility] Work Phone: Urea nitrogen/Creatinine [Mass ratio] 21.9 mg/mg 10-20 [facility] Work Phone: No Panel Informationon 09-17 C-Reactive Protein High Sensitivity 5.03 mg/L <3.00 [facility] Work Phone: Comment on above: Low Relative Risk of CVD <1.0 mg/L Average Relative Risk of CVD 1.0 - 3.0 mg/L High Relative Risk of CVD >3.0 mg/L Estimated GFR (MDRD) Amer 96 mL/min >60 [facility] Work Phone: Comment on above: GFR Calc Estimated GFR (MDRD) Non-Af Amer 79 mL/min >60 [facility] Work Phone: Comment on above: Non- GFR Calc Prostate Specific Antigen Total 246.00 ng/mL 0.0-4.0 [facility] Work Phone: Comment on above: This test was perfor med using the TPSA assay method for [employer] chemistry system. Values obtained with differentassay methods cannot be used interchangably.When changing PSA assays in the course of monitoring apatient, additional sequential testing should be carriedout to confirm baseline values. Serum or plasma C reactive p rotein measurement (mass/volume)on 09-17-2021 CRP [Mass/Vol] 5.97 mg/L 0.0-3.0 [facility] Work Phone: Comment on above: C-Reactive Protein ( CRP) provides useful information for thediagnosis, therapy and monitoring of inflammatory processesand associated diseases. For the evaluation of Relative Riskfor Cardiovascular Disease, a High Sensitivity CRP (HSCRP)should be ordered. Serum or plasma calcium lilly urement (mass/volume)on 09-17-2021 Calcium [Mass/Vol] 9.0 mg/dL 8.5-10.1 [facility] Work Phone: Serum or plasma creatinine m easurement (mass/volume)on 09-17-2021 Creatinine [Mass/Vol] 0.96 mg/dL 0.70-1.30 [facility] Work Phone: Comment on above: The validity of the calculated GFR & GFRAA in patients over 70 years has not been determined. Clinical correlation is essential. Serum or plasma urea nitroge n measurement (mass/volume)on 09-17-2021 Urea nitrogen [Mass/Vol] 21 mg/dL 7-18 [facility] Work Phone: Thin prep Papanicolaou smear with manual screeningon 09-17-2021 Thin prep Papanicolaou smear with manual screening 8 5-15 [facility] Work Phone: Thin prep Papanicolaou smear with manual screening Negative Negative [facility] Work Phone: Comment on above: Lyme Antibody Negati veNo laboratory evidence of infection with B. burgdorferi(Lyme disease). Negative results may occur in patientsrecently infected (greater than or equal to 14 days) withB. burgdorferi. If recent infection is suspected, repeattesting on a new sample collected in 7 to 14 days isrecommended.Performed at: [facility] [id number] Director: Hilton Gallegos PhD, Phone: [phone] Absolute lymphocyte counton 08-31-2021 Lymphocytes Auto (Unsp spec) [#/Vol] 1.28 10*3/uL 0.83-4.51 [facility] Work Phone: Basophil percentageon 2021 Basophils/100 WBC (Bld) 0.3 % 0-1 [facility] Work Phone: Bilirubin [Mass/Vol] 0.80 mg/dL 0.20-1.00 [facility] Work Phone: Comment on above: For patients on eltr ombopag therapy, use of Dimension [place] TBIL is not recommended. Chloride [Moles/Vol] 104 mmol/L 98-107 [facility] [facility] [place] Work Phone: Eosinophils/100 WBC (Bld) 0.8 % 0-5 [facility] Work Phone: Glucose [Mass/Vol] 125 mg/dL 74-106 [facility] Work Phone: Comment on above: Fasting Glucose resu lt from 100 to 125 mg/dL suggests IMPAIRED HOMEOSTASIS per A.D.A. criteria. Neutrophils (Bld) [#/Vol] 16.0 10*3/uL 2.0-7.7 [facility] Work Phone: Neutrophils/100 WBC (Bld) 83.5 % 47-70 [facility] Work Phone: Potassium [Moles/Vol] 4.5 mmol/L 3.5-5.1 [facility] Work Phone: Comment on above: Moderate Hemolysis, Result may be falsely increased. Protein [Mass/Vol] 6.8 g/dL 6.4-8.2 [facility] Work Phone: Sodium [Moles/Vol] 138 mmol/L 136-145 [facility] Work Phone: WBC (Bld) [#/Vol] 19.1 10*3/uL 4.4-11.0 [facility] Work Phone: Basophil percentage 0 SEEN /hpf 0-5 [facility] Work Phone: Bilirubin Test strip Ql (U)o n 08-31-2021 Bilirubin Ql (U) Negative Negative [facility] Work Phone: Blood erythrocytes count (nu mber/volume)on 08-31-2021 RBC (Bld) [#/Vol] 4.35 10*6/uL 4.6-6.2 [facility] Work Phone: Blood hemoglobin measurement (mass/volume)on 08-31-2021 Hemoglobin (Bld) [Mass/Vol] 13.4 g/dL 13.0-16.5 [facility] Work Phone: Blood lymphocytes/100 leukoc yteson 08-31-2021 Lymphocytes/100 WBC (Bld) 6.7 % 19-41 [facility] Work Phone: Blood monocytes/100 leukocyt eson 08-31-2021 Monocytes/100 WBC (Bld) 7.7 % 0-10 [facility] Work Phone: Blood platelet mean volumeon 08-31-2021 Platelet mean volume (Bld) [Entitic vol] 9.7 fL 6.2-12.0 [facility] Work Phone: Calcium oxalate crystals det ection in urine sediment by light microscopyon 08-31-2021 Calcium oxalate crystals LM Ql (Urine sed) RARE /hpf [facility] Work Phone: Determination of erythrocyte mean corpuscular volume (MCV)on 08-31-2021 MCV (RBC) [Entitic vol] 91.0 fL 80-94 [facility] Work Phone: Hematocrit Auto (Bld) [Volum e fraction]on 08-31-2021 Hematocrit (Bld) [Volume fraction] 39.6 % 40-54 [facility] Work Phone: Ketones Test strip Ql (U)on 08-31-2021 Ketones Ql (U) Negative Negative [facility] Work Phone: Laboratory - Chemistry and C hemistry - challengeon 08-31-2021 ALP [Catalytic activity/Vol] 95 U/L 45-117 [facility] Work Phone: ALT [Catalytic activity/Vol] 20 U/L 16-61 [facility] Work Phone: CO2 [Moles/Vol] 30.0 mmol/L 21.0-32.0 [facility] Work Phone: Globulin (S) [Mass/Vol] 3.9 g/dL 2.2-4.2 [facility] Work Phone: Urea nitrogen/Creatinine [Mass ratio] 15.4 mg/mg 10-20 [facility] Work Phone: Laboratory - Hematology and Cell countson 08-31-2021 Erythrocyte distribution width (RBC) [Entitic vol] 43.2 fL 35.1-43.9 [facility] Work Phone: Erythrocyte distribution width (RBC) [Ratio] 13.0 % 11.6-14.6 [facility] Work Phone: Immature granulocytes/100 WBC (Bld) 1.000 % 0.0-0.9 [facility] Work Phone: Comment on above: IG% - Immature Granu locytes (promyelocytes, myelocytes and metamyelocytes) > 1% indicates that a LEFT SHIFT is Present. MCH (RBC) [Entitic mass] 30.8 pg 27.0-32.0 [facility] Work Phone: Nucleated RBC/100 WBC (Bld) [Ratio] 0 % 0-5 [facility] Work Phone: MCHC Auto (RBC) [Mass/Vol]on 08-31-2021 MCHC (RBC) [Mass/Vol] 33.8 g/dL 32-36 [facility] Work Phone: Mucus LM Ql (Urine sed)on Mucus Ql (Urine sed) 0 SEEN /hpf [facility] Work Phone: Nitrite Test strip Ql (U)on 08-31-2021 Nitrite Ql (U) Negative Negative [facility] Work Phone: No Panel Informationon 08-31 Estimated Creatinine Clearance Calc 44.66 ml/min [facility] Work Phone: Estimated GFR (MDRD) Amer 76 mL/min >60 [facility] Work Phone: Comment on above: GFR Calc Estimated GFR (MDRD) Non-Af Amer 63 mL/min >60 [facility] Work Phone: Comment on above: Non- GFR Calc Troponin I High Sensitivity 12 pg/mL 3.0-78.0 [facility] Work Phone: Comment on above: Please Note: New Selin t Units and Gender Specific Reference Ranges. For more information see Policy Stat Procedure [place] High Sensitivity Troponin (TNIH) and attachments. Platelets bldon 08-31-2021 Platelets (Bld) [#/Vol] 334 10*3/uL 150-450 [facility] Work Phone: Protein Test strip Ql (U)on 08-31-2021 Protein Ql (U) Negative Negative [facility] Work Phone: Serum or plasma albumin lilly urement (mass/volume)on 08-31-2021 Albumin [Mass/Vol] 2.9 g/dL 3.2-5.0 [facility] Work Phone: Serum or plasma albumin/glob ulin mass ratioon 08-31-2021 Albumin/Globulin [Mass ratio] 0.7 {ratio} 0.9-2.4 [facility] Work Phone: Serum or plasma calcium lilly urement (mass/volume)on 08-31-2021 Calcium [Mass/Vol] 8.7 mg/dL 8.5-10.1 [facility] Work Phone: Serum or plasma creatinine m easurement (mass/volume)on 08-31-2021 Creatinine [Mass/Vol] 1.17 mg/dL 0.70-1.30 [facility] Work Phone: Comment on above: The validity of the calculated GFR & GFRAA in patients over 70 years has not been determined. Clinical correlation is essential. Serum or plasma urea nitroge n measurement (mass/volume)on 08-31-2021 Urea nitrogen [Mass/Vol] 18 mg/dL 7-18 [facility] Work Phone: Squamous epithelial cells de tection in urine sediment by light microscopyon 08-31-2021 Epithelial cells.squamous LM Ql (Urine sed) 0 SEEN /hpf 0-5 [facility] Work Phone: Thin prep Papanicolaou smear with manual screeningon 08-31-2021 Thin prep Papanicolaou smear with manual screening 43 U/L 15-37 [facility] Work Phone: Comment on above: Moderate Hemolysis, Result may be falsely increased. Thin prep Papanicolaou smear with manual screening 4 5-15 [facility] Work Phone: Urine blood detectionon 08-18 RBC Ql (U) 10 /ul Negative [facility] Work Phone: RBC Ql (U) 0-5 SEEN /hpf 0-5 [facility] Work Phone: Urine clarityon 08-31-2021 Clarity (U) Clear Clear [facility] Work Phone: Urine color determinationon 08-31-2021 Color (U) Yellow Yellow [facility] Work Phone: Urine glucose detectionon Glucose Ql (U) Normal mg/dl Normal [facility] Work Phone: Urine leukocyte esterase det ection by dipstickon 08-31-2021 Leukocyte esterase Test strip Ql (U) Negative Negative [facility] Work Phone: Urine pHon 08-31-2021 pH (U) 6.0 [pH] 5.0 - 8.0 [facility] Work Phone: Urine sediment bacteria coun t by microscopy (number/high power field)on 08-31-2021 Bacteria LM.HPF (Urine sed) [#/Area] RARE /hpf None Seen [facility] Work Phone: Urine specific gravity measu rementon 08-31-2021 Specific gravity (U) [Rel density] 1.025 1.002-1.030 [facility] Work Phone: Urobilinogen Auto test strip Ql (U)on 08-31-2021 Urobilinogen Ql (U) Normal mg/dl Normal [facility] Work Phone: Basophil percentageon 2021 Chloride [Moles/Vol] 103 mmol/L 98-107 [facility] Work Phone: Glucose [Mass/Vol] 126 mg/dL 74-106 [facility] Work Phone: Comment on above: Fasting Glucose resu lt greater than or equal to 126 mg/dL suggests DIABETES MELLITUS per A.D.A. criteria. Potassium [Moles/Vol] 3.8 mmol/L 3.5-5.1 [facility] Work Phone: Sodium [Moles/Vol] 140 mmol/L 136-145 [facility] Work Phone: Interpretation of Borrelia b urgdorferi antibody assayon 08-24-2021 B. burgdorferi Ab (S) [Interp] REF LAB [facility] Work Phone: Laboratory - Chemistry and C hemistry - challengeon 08-24-2021 CO2 [Moles/Vol] 31.0 mmol/L 21.0-32.0 [facility] Work Phone: Magnesium [Mass/Vol] 2.4 mg/dL 1.6-2.6 [facility] Work Phone: Urea nitrogen/Creatinine [Mass ratio] 15.9 mg/mg 10-20 [facility] Work Phone: No Panel Informationon 08-24 Estimated GFR (MDRD) Amer 70 mL/min >60 [facility] Work Phone: Comment on above: GFR Calc Estimated GFR (MDRD) Non-Af Amer 58 mL/min >60 [facility] Work Phone: Comment on above: Non- GFR Calc Serum or plasma C reactive p rotein measurement (mass/volume)on 08-24-2021 CRP [Mass/Vol] 107.00 mg/L 0.0-3.0 [facility] Work Phone: Comment on above: C-Reactive Protein ( CRP) provides useful information for thediagnosis, therapy and monitoring of inflammatory processesand associated diseases. For the evaluation of Relative Riskfor Cardiovascular Disease, a High Sensitivity CRP (HSCRP)should be ordered. Serum or plasma calcium lilly urement (mass/volume)on 08-24-2021 Calcium [Mass/Vol] 8.9 mg/dL 8.5-10.1 [facility] Work Phone: Serum or plasma creatinine m easurement (mass/volume)on 08-24-2021 Creatinine [Mass/Vol] 1.26 mg/dL 0.70-1.30 [facility] Work Phone: Comment on above: The validity of the calculated GFR & GFRAA in patients over 70 years has not been determined. Clinical correlation is essential. Serum or plasma urea nitroge n measurement (mass/volume)on 08-24-2021 Urea nitrogen [Mass/Vol] 20 mg/dL 7-18 [facility] Work Phone: Thin prep Papanicolaou smear with manual screeningon 08-24-2021 Thin prep Papanicolaou smear with manual screening 6 5-15 [facility] Work Phone: Thin prep Papanicolaou smear with manual screening Negative Negative [facility] Work Phone: Comment on above: Lyme Antibody Negati veNo laboratory evidence of infection with B. burgdorferi(Lyme disease). Negative results may occur in patientsrecently infected (greater than or equal to 14 days) withB. burgdorferi. If recent infection is suspected, repeattesting on a new sample collected in 7 to 14 days isrecommended.Performed at: [facility] [id number] Director: Hilton Gallegos PhD, Phone: [phone] Absolute lymphocyte counton 08-16-2021 Lymphocytes Auto (Unsp spec) [#/Vol] 0.92 10*3/uL 0.83-4.51 [facility] Work Phone: Basophil percentageon 2021 Basophils/100 WBC (Bld) 0.2 % 0-1 [facility] Work Phone: Chloride [Moles/Vol] 101 mmol/L 98-107 [facility] Work Phone: Eosinophils/100 WBC (Bld) 0.6 % 0-5 [facility] Work Phone: Glucose [Mass/Vol] 130 mg/dL 74-106 [facility] Work Phone: Comment on above: Fasting Glucose resu lt greater than or equal to 126 mg/dL suggests DIABETES MELLITUS per A.D.A. criteria. Neutrophils (Bld) [#/Vol] 10.1 10*3/uL 2.0-7.7 [facility] Work Phone: Neutrophils/100 WBC (Bld) 81.7 % 47-70 [facility] Work Phone: Potassium [Moles/Vol] 3.0 mmol/L 3.5-5.1 [facility] Work Phone: Sodium [Moles/Vol] 136 mmol/L 136-145 [facility] Work Phone: WBC (Bld) [#/Vol] 12.4 10*3/uL 4.4-11.0 [facility] Work Phone: Blood erythrocytes count (nu mber/volume)on 08-16-2021 RBC (Bld) [#/Vol] 4.07 10*6/uL 4.6-6.2 [facility] Work Phone: Blood hemoglobin measurement (mass/volume)on 08-16-2021 Hemoglobin (Bld) [Mass/Vol] 12.7 g/dL 13.0-16.5 [facility] Work Phone: Blood lymphocytes/100 leukoc yteson 08-16-2021 Lymphocytes/100 WBC (Bld) 7.4 % 19-41 [facility] Work Phone: Blood monocytes/100 leukocyt eson 08-16-2021 Monocytes/100 WBC (Bld) 9.3 % 0-10 [facility] Work Phone: Blood platelet mean volumeon 08-16-2021 Platelet mean volume (Bld) [Entitic vol] 10.1 fL 6.2-12.0 [facility] Work Phone: Determination of erythrocyte mean corpuscular volume (MCV)on 08-16-2021 MCV (RBC) [Entitic vol] 93.1 fL 80-94 [facility] Work Phone: Erythrocyte sedimentation ra brigid 08-16-2021 ESR (Bld) [Velocity] 36 mm/h 0-20 [facility] Work Phone: Hematocrit Auto (Bld) [Volum e fraction]on 08-16-2021 Hematocrit (Bld) [Volume fraction] 37.9 % 40-54 [facility] Work Phone: Laboratory - Chemistry and C hemistry - challengeon 08-16-2021 CO2 [Moles/Vol] 31.0 mmol/L 21.0-32.0 [facility] Work Phone: Urea nitrogen/Creatinine [Mass ratio] 14.5 mg/mg 10-20 [facility] Work Phone: Laboratory - Hematology and Cell countson 08-16-2021 Erythrocyte distribution width (RBC) [Entitic vol] 43.8 fL 35.1-43.9 [facility] Work Phone: Erythrocyte distribution width (RBC) [Ratio] 12.8 % 11.6-14.6 [facility] Work Phone: Immature granulocytes/100 WBC (Bld) 0.800 % 0.0-0.9 [facility] Work Phone: Comment on above: IG% - Immature Granu locytes (promyelocytes, myelocytes and metamyelocytes) > 1% indicates that a LEFT SHIFT is Present. MCH (RBC) [Entitic mass] 31.2 pg 27.0-32.0 [facility] Work Phone: Nucleated RBC/100 WBC (Bld) [Ratio] 0 % 0-5 [facility] Work Phone: MCHC Auto (RBC) [Mass/Vol]on 08-16-2021 MCHC (RBC) [Mass/Vol] 33.5 g/dL 32-36 [facility] Work Phone: No Panel Informationon 08-16 Estimated Creatinine Clearance Calc 48.36 ml/min [facility] Work Phone: Estimated GFR (MDRD) Amer 82 mL/min >60 [facility] Work Phone: Comment on above: GFR Calc Estimated GFR (MDRD) Non-Af Amer 68 mL/min >60 [facility] Work Phone: Comment on above: Non- GFR Calc Platelets bldon 08-16-2021 Platelets (Bld) [#/Vol] 302 10*3/uL 150-450 [facility] Work Phone: Serum or plasma C reactive p rotein measurement (mass/volume)on 08-16-2021 CRP [Mass/Vol] 104.00 mg/L 0.0-3.0 [facility] Work Phone: Comment on above: C-Reactive Protein ( CRP) provides useful information for thediagnosis, therapy and monitoring of inflammatory processesand associated diseases. For the evaluation of Relative Riskfor Cardiovascular Disease, a High Sensitivity CRP (HSCRP)should be ordered. Serum or plasma calcium lilly urement (mass/volume)on 08-16-2021 Calcium [Mass/Vol] 8.6 mg/dL 8.5-10.1 [facility] Work Phone: Serum or plasma creatinine m easurement (mass/volume)on 08-16-2021 Creatinine [Mass/Vol] 1.10 mg/dL 0.70-1.30 [facility] Work Phone: Comment on above: The validity of the calculated GFR & GFRAA in patients over 70 years has not been determined. Clinical correlation is essential. Serum or plasma urea nitroge n measurement (mass/volume)on 08-16-2021 Urea nitrogen [Mass/Vol] 16 mg/dL 7-18 [facility] Work Phone: Thin prep Papanicolaou smear with manual screeningon 08-16-2021 Thin prep Papanicolaou smear with manual screening 4 5-15 [facility] Work Phone: Vital Signs Date Time Vital Sign Value Performing Clinician Faci varindery 01-10-2025 10:58-0400 Body height 170.[address] Otto Subramanian MD Work Phone: [facility] 01-10-2025 10:58-0400 Body mass index (BMI) [Ratio] 27.7 kg/m2 Dr. Otto Subramanian MD Work Phone: [facility] 01-10-2025 10:58-0400 Body weight 80.[address] Otto Subramanian MD Work Phone: [facility] 01-10-2025 10:58-0400 Diastolic blood pressure 70 mm[Hg] Dr. Otto Subramanian MD Work Phone: [facility] 01-10-2025 10:58-0400 Heart rate 64 /min Dr. Otto Subramanian MD Work Phone: [facility] 01-10-2025 10:58-0400 Systolic blood pressure 95 mm[Hg] Dr. Otto Subramanian MD Work Phone: [facility] 12-31-2024 13:46-0400 Body height 167.6 cm Freddie Bee ELECTRONIC PREPRESS OPERATOR - ASSISTANT DESIGNER Work Phone: [facility] 12-31-2024 13:46-0400 Body mass index (BMI) [Ratio] 28.25 kg/m2 Freddiekamala Bee ELECTRONIC PREPRESS OPERATOR - ASSISTANT DESIGNER Work Phone: [facility] 12-31-2024 13:46-0400 Body weight 79.38 kg Freddie Jaleel ELECTRONIC PREPRESS OPERATOR - ASSISTANT DESIGNER Work Phone: [facility] [employer] Comment on above: verbal 12-31-2024 13:46-0400 Diastolic blood pressure 78 mm[Hg] Freddiekamala Bee ELECTRONIC PREPRESS OPERATOR - ASSISTANT DESIGNER Work Phone: [facility] 12-31-2024 13:46-0400 Heart rate 64 /min Freddiekamala Bee ELECTRONIC PREPRESS OPERATOR - ASSISTANT DESIGNER Work Phone: [facility] 12-31-2024 13:46-0400 SaO2% (BldA) [Mass fraction] 96 % Freddie Bee ELECTRONIC PREPRESS OPERATOR - ASSISTANT DESIGNER Work Phone: [facility] 12-31-2024 13:46-0400 Systolic blood pressure 110 mm[Hg] Freddiekamala Westel ELECTRONIC PREPRESS OPERATOR - ASSISTANT DESIGNER Work Phone: [facility] [employer] 12-24-2024 08:33-0400 Body height 167.6 cm Lashell Salas MD Work Phone: [facility] [employer] 12-24-2024 08:33-0400 Body mass index (BMI) [Ratio] 29.7 kg/m2 Lashell Salas MD Work Phone: [facility] [employer] 12-24-2024 08:33-0400 Body weight 83.46 kg Lashell Salas MD Work Phone: [facility] 12-24-2024 08:15-0400 Body temperature 97.39 [degF] Lashell Salas MD Work Phone: [facility] [employer] 12-24-2024 08:15-0400 Diastolic blood pressure 60 mm[Hg] Lashell Salas MD Work Phone: [facility] 12-24-2024 08:15-0400 Heart rate 93 /min Lashell Salas MD Work Phone: [facility] 12-24-2024 08:15-0400 Respiratory rate 14 /min Lashell Salas MD Work Phone: [facility] 12-24-2024 08:15-0400 SaO2% (BldA) [Mass fraction] 96 % Lashell Salas MD Work Phone: [facility] 12-24-2024 08:15-0400 Systolic blood pressure 119 mm[Hg] Lashell Salas MD Work Phone: [facility] 11-26-2024 14:11-0400 Body height 167.6 cm Lashell Salas MD Work Phone: [facility] 11-26-2024 14:11-0400 Body mass index (BMI) [Ratio] 28.89 kg/m2 Lashell Salas MD Work Phone: [facility] 11-26-2024 14:11-0400 Body weight 81.19 kg Lashell Salas MD Work Phone: [facility] 11-26-2024 14:11-0400 Diastolic blood pressure 76 mm[Hg] Lashell Salas MD Work Phone: [facility] 11-26-2024 14:11-0400 Heart rate 70 /min Lashell Salas MD Work Phone: [facility] 11-26-2024 14:11-0400 SaO2% (BldA) [Mass fraction] 96 % Lashell Salas MD Work Phone: [facility] 11-26-2024 14:11-0400 Systolic blood pressure 114 mm[Hg] Lashell Salas MD Work Phone: [facility] 11-12-2024 13:08-0400 Body mass index (BMI) [Ratio] 28.11 kg/m2 Everett Aldrich MD Work Phone: [facility] 11-12-2024 13:08-0400 Body temperature 97.39 [degF] Everett Aldrich MD Work Phone: [facility] 11-12-2024 13:08-0400 Body weight 81.42 kg Everett Aldrich MD Work Phone: [facility] 11-12-2024 13:08-0400 Diastolic blood pressure 66 mm[Hg] Everett Aldrich MD Work Phone: [facility] 11-12-2024 13:08-0400 Heart rate 63 /min Evertet Aldrich MD Work Phone: [facility] 11-12-2024 13:08-0400 SaO2% (BldA) [Mass fraction] 98 % Everett Aldrich MD Work Phone: [facility] 11-12-2024 13:08-0400 Systolic blood pressure 114 mm[Hg] Everett Aldrich MD Work Phone: [facility] 11-04-2024 11:12-0400 Body temperature 97 [degF] Dr. Otto Subramanian MD Work Phone: [facility] 11-04-2024 11:12-0400 Diastolic blood pressure 77 mm[Hg] Dr. Otto Subramanian MD Work Phone: [facility] 11-04-2024 11:12-0400 Heart rate 73 /min Dr. Otto Subramanian MD Work Phone: [facility] 11-04-2024 11:12-0400 Respiratory rate 14 /min Dr. Otto Subramanian MD Work Phone: [facility] 11-04-2024 11:12-0400 SaO2% (BldA) [Mass fraction] 99 % Dr. Otto Subramanian MD Work Phone: [facility] 11-04-2024 11:12-0400 Systolic blood pressure 150 mm[Hg] Dr. Otto Subramanian MD Work Phone: 9(492)127-257658 [place] [address] 11-04-2024 10:16-0400 Body height 170.[address] Otto Subramanian MD Work Phone: 5(803)480-577458 [place] [address] 11-04-2024 10:16-0400 Body mass index (BMI) [Ratio] 28 kg/m2 Dr. Otto Subramanian MD Work Phone: 0(527)755-851358 [place] [address] 11-04-2024 10:16-0400 Body weight 81.[address] Otto Subramanian MD Work Phone: 8(091)722-398358 [place] [address] 10-07-2024 07:22-0400 Body height 172.[address] Otto Subramanian MD Work Phone: 2(273)664-964458 [place] [address] 10-07-2024 07:22-0400 Body weight 81.[address] Otto Subramanian MD Work Phone: 9(209)229-039258 [place] [address] 10-04-2024 07:43-0400 Body mass index (BMI) [Ratio] 27.3 kg/m2 Dr. Otto Subramanian MD Work Phone: 9(667)720-487858 [place] [address] 09-29-2024 09:37-0400 Body height 172.[address] Otto Subramanian MD Work Phone: 3(162)366-436158 [place] [address] 09-29-2024 09:37-0400 Body mass index (BMI) [Ratio] 27.3 kg/m2 Dr. Otto Subramanian MD Work Phone: 2(483)139-080158 [place] [address] 09-29-2024 09:37-0400 Body temperature 98.5 [degF] Dr. Otto Subramanian MD Work Phone: 9(385)676-901758 [place] [address] 09-29-2024 09:37-0400 Body weight 81.[address] Otto Subramanian MD Work Phone: 3(732)263-021458 [place] [address] 09-29-2024 09:37-0400 Diastolic blood pressure 62 mm[Hg] Dr. Otto Subramanian MD Work Phone: 3(716)001-251158 [place] [address] 09-29-2024 09:37-0400 Heart rate 86 /min Dr. Otto Subramanian MD Work Phone: [facility] 09-29-2024 09:37-0400 Respiratory rate 16 /min Dr. Otto Subramanian MD Work Phone: [facility] 09-29-2024 09:37-0400 SaO2% (BldA) [Mass fraction] 98 % Dr. Otto Subramanian MD Work Phone: [facility] 09-29-2024 09:37-0400 Systolic blood pressure 108 mm[Hg] Dr. Otto Subramanian MD Work Phone: 5(099)273-457055 [place] [address] 09-26-2024 08:11-0400 Body height 172.[address] Otto Subramanian MD Work Phone: 9(084)362-262317 [address] 09-26-2024 08:11-0400 Body mass index (BMI) [Ratio] 27.3 kg/m2 Dr. Otto Subramanian MD Work Phone: [facility] 09-26-2024 08:11-0400 Body weight 81.[address] Otto Subramanian MD Work Phone: [facility] 09-26-2024 08:11-0400 Diastolic blood pressure 86 mm[Hg] Dr. Otto Subramanian MD Work Phone: [facility] 09-26-2024 08:11-0400 Heart rate 72 /min Dr. Otto Subramanian MD Work Phone: [facility] 09-26-2024 08:11-0400 Respiratory rate 16 /min Dr. Otto Subramanian MD Work Phone: [facility] 09-26-2024 08:11-0400 Systolic blood pressure 143 mm[Hg] Dr. Otto Subramanian MD Work Phone: [facility] 08-20-2024 13:13-0400 Body mass index (BMI) [Ratio] 29.05 kg/m2 Crissy Mai Work Phone: [facility] 08-20-2024 13:13-0400 Body temperature 98.49 [degF] Crissy Mai Work Phone: [facility] 08-20-2024 13:13-0400 Body weight 84.14 kg Crissy Mai Work Phone: [facility] 08-20-2024 13:13-0400 Diastolic blood pressure 82 mm[Hg] Crissy Mai Work Phone: [facility] 08-20-2024 13:13-0400 Heart rate 83 /min Crissy Mai Work Phone: [facility] 08-20-2024 13:13-0400 SaO2% (BldA) [Mass fraction] 98 % Crissy Mai Work Phone: [facility] 08-20-2024 13:13-0400 Systolic blood pressure 142 mm[Hg] Crissy Mai Work Phone: [facility] 06-27-2024 10:38-0400 Body height 172.[address] Otto Subramanian MD Work Phone: [facility] 06-27-2024 10:38-0400 Body mass index (BMI) [Ratio] 28.5 kg/m2 Dr. Otto Subramanian MD Work Phone: [facility] 06-27-2024 10:38-0400 Body weight 85.[address] Otto Subramanian MD Work Phone: [facility] 06-27-2024 10:38-0400 Diastolic blood pressure 80 mm[Hg] Dr. Otto Subramanian MD Work Phone: [facility] 06-27-2024 10:38-0400 Heart rate 87 /min Dr. Otto Subramanian MD Work Phone: [facility] 06-27-2024 10:38-0400 Respiratory rate 18 /min Dr. Otto uSbramanian MD Work Phone: [facility] 06-27-2024 10:38-0400 SaO2% (BldA) [Mass fraction] 97 % Dr. Otto Subramanian MD Work Phone: [facility] 06-27-2024 10:38-0400 Systolic blood pressure 134 mm[Hg] Dr. Otto Subramanian MD Work Phone: [facility] 06-18-2024 13:43-0400 Diastolic blood pressure 73 mm[Hg] Leisa Galeanoer PA-C Work Phone: [facility] 06-18-2024 13:43-0400 Heart rate 82 /min Leisa Galeanoer PA-C Work Phone: [facility] 06-18-2024 13:43-0400 SaO2% (BldA) [Mass fraction] 97 % Leisa Galeanoer PA-C Work Phone: [facility] 06-18-2024 13:43-0400 Systolic blood pressure 123 mm[Hg] Leisa Glaeanoer PA-C Work Phone: [facility] 05-28-2024 12:47-0400 Body mass index (BMI) [Ratio] 30.07 kg/m2 Everett Aldrich MD Work Phone: [facility] 05-28-2024 12:47-0400 Body temperature 98.1 [degF] Everett Aldrich MD Work Phone: [facility] 05-28-2024 12:47-0400 Body weight 87.09 kg Everett Aldrich MD Work Phone: [facility] 05-28-2024 12:47-0400 Diastolic blood pressure 73 mm[Hg] Everett Aldrich MD Work Phone: [facility] 05-28-2024 12:47-0400 Heart rate 110 /min Everett Aldrich MD Work Phone: [facility] 05-28-2024 12:47-0400 SaO2% (BldA) [Mass fraction] 97 % Everett Aldrich MD Work Phone: [facility] 05-28-2024 12:47-0400 Systolic blood pressure 111 mm[Hg] Everett Aldrich MD Work Phone: [facility] 05-24-2024 10:52-0500 Body mass index (BMI) [Ratio] 30.67 kg/m2 Kaushal Stockton Jr., MD Work Phone: [facility] 05-24-2024 10:52-0500 Body weight 88.81 kg Kaushal Stockton Jr., MD Work Phone: [facility] 05-24-2024 10:52-0500 Diastolic blood pressure 86 mm[Hg] Kaushal Stockton Jr., MD Work Phone: [facility] 05-24-2024 10:52-0500 Heart rate 65 /min Kaushal Stockton Jr., MD Work Phone: [facility] 05-24-2024 10:52-0500 SaO2% (BldA) [Mass fraction] 96 % Kaushal Stockton Jr., MD Work Phone: [facility] 05-24-2024 10:52-0500 Systolic blood pressure 142 mm[Hg] Kaushal Stockton Jr., MD Work Phone: [facility] 03-05-2024 10:11-0500 Body mass index (BMI) [Ratio] 31.72 kg/m2 Everett Aldrich MD Work Phone: [facility] 03-05-2024 10:11-0500 Body temperature 98.49 [degF] Everett Aldrich MD Work Phone: [facility] 03-05-2024 10:11-0500 Body weight 91.85 kg Eveertt Aldrich MD Work Phone: [facility] 03-05-2024 10:11-0500 Diastolic blood pressure 81 mm[Hg] Everett Aldrich MD Work Phone: [facility] 03-05-2024 10:11-0500 Heart rate 81 /min Everett Aldrich MD Work Phone: [facility] 03-05-2024 10:11-0500 SaO2% (BldA) [Mass fraction] 96 % Everett Aldrich MD Work Phone: [facility] 03-05-2024 10:11-0500 Systolic blood pressure 129 mm[Hg] Everett Aldrich MD Work Phone: [facility] 01-23-2024 16:05-0500 Body height 170.2 cm Pranav Tate PA-C Work Phone: [facility] 01-23-2024 16:05-0500 Body mass index (BMI) [Ratio] 30.54 kg/m2 Pranav Tate PA-C Work Phone: [facility] 01-23-2024 16:05-0500 Body temperature 97.3 [degF] Pranav Tate PA-C Work Phone: [facility] 01-23-2024 16:05-0500 Body weight 88.45 kg Pranav Tate PA-C Work Phone: [facility] 01-23-2024 16:05-0500 Diastolic blood pressure 60 mm[Hg] Pranav Tate PA-C Work Phone: [facility] 01-23-2024 16:05-0500 Heart rate 89 /min Pranav Tate PA-C Work Phone: [facility] 01-23-2024 16:05-0500 Respiratory rate 20 /min Pranav Tate PA-C Work Phone: [facility] 01-23-2024 16:05-0500 SaO2% (BldA) [Mass fraction] 96 % Pranav Tate PA-C Work Phone: [facility] 01-23-2024 16:05-0500 Systolic blood pressure 112 mm[Hg] Pranav Tate PA-C Work Phone: [facility] 12-12-2023 09:47-0400 Body mass index (BMI) [Ratio] 31.09 kg/m2 Crissy Mai Work Phone: [facility] 12-12-2023 09:47-0400 Body temperature 98.49 [degF] Crissy Mai Work Phone: [facility] 12-12-2023 09:47-0400 Body weight 90.04 kg Crissy Mai Work Phone: [facility] 12-12-2023 09:47-0400 Diastolic blood pressure 62 mm[Hg] Crissy Mai Work Phone: [facility] 12-12-2023 09:47-0400 Heart rate 79 /min Crissy Mai Work Phone: [facility] 12-12-2023 09:47-0400 SaO2% (BldA) [Mass fraction] 97 % Crissy Mai Work Phone: [facility] 12-12-2023 09:47-0400 Systolic blood pressure 103 mm[Hg] Crissy Mai Work Phone: [facility] 09-19-2023 10:13-0400 Body mass index (BMI) [Ratio] 31.48 kg/m2 Everett Aldrich MD Work Phone: [facility] 09-19-2023 10:13-0400 Body temperature 97.9 [degF] Everett Aldrich MD Work Phone: [facility] 09-19-2023 10:13-0400 Body weight 91.17 kg Everett Aldrich MD Work Phone: [facility] 09-19-2023 10:13-0400 Diastolic blood pressure 70 mm[Hg] Everett Aldrich MD Work Phone: [facility] 09-19-2023 10:13-0400 Heart rate 73 /min Everett Aldrich MD Work Phone: [facility] 09-19-2023 10:13-0400 SaO2% (BldA) [Mass fraction] 98 % Everett Aldrich MD Work Phone: [facility] 09-19-2023 10:13-0400 Systolic blood pressure 105 mm[Hg] Everett Aldrich MD Work Phone: [facility] 06-27-2023 10:56-0400 Body temperature 98.2 [degF] Everett Aldrich MD Work Phone: [facility] 06-27-2023 10:56-0400 Body weight 91.85 kg Everett Aldrich MD Work Phone: [facility] 06-27-2023 10:56-0400 Diastolic blood pressure 74 mm[Hg] Everett Aldrich MD Work Phone: [facility] 06-27-2023 10:56-0400 Heart rate 82 /min Everett Aldrich MD Work Phone: [facility] 06-27-2023 10:56-0400 SaO2% (BldA) [Mass fraction] 99 % Everett Aldrich MD Work Phone: [facility] 06-27-2023 10:56-0400 Systolic blood pressure 112 mm[Hg] Everett Aldrich MD Work Phone: [facility] 05-23-2023 10:26-0500 Diastolic blood pressure 82 mm[Hg] Dr. Otto Subramanian Work Phone: [facility] 05-23-2023 10:26-0500 Systolic blood pressure 120 mm[Hg] Dr. Otto Subramanian Work Phone: [facility] 05-23-2023 10:02-0500 Body height 172.[address] Otto Subramanian Work Phone: [facility] 05-23-2023 10:02-0500 Body mass index (BMI) [Ratio] 31 kg/m2 Dr. Otot Subramanian Work Phone: [facility] 05-23-2023 10:02-0500 Body weight 92.[address] Otto Subramanian Work Phone: [facility] 05-23-2023 10:02-0500 Heart rate 93 /min Dr. Otto Subramanian Work Phone: [facility] 05-23-2023 10:02-0500 Respiratory rate 18 /min Dr. Otto Subramanian Work Phone: [facility] 05-23-2023 10:02-0500 SaO2% (BldA) [Mass fraction] 96 % Dr. Otto Subramanian Work Phone: [facility] 03-03-2023 09:10-0500 Body temperature 97.39 [degF] Treatment Wstr Work Phone: [facility] 03-03-2023 09:10-0500 Diastolic blood pressure 75 mm[Hg] Treatment [facility]str Work Phone: [facility] 03-03-2023 09:10-0500 Heart rate 82 /min Treatment [facility]str Work Phone: [facility] 03-03-2023 09:10-0500 SaO2% (BldA) [Mass fraction] 94 % Treatment [facility]str Work Phone: [facility] 03-03-2023 09:10-0500 Systolic blood pressure 154 mm[Hg] Treatment [facility]str Work Phone: [facility] 11-09-2022 14:14-0400 Body temperature 97.7 [degF] Treatment Wstr Work Phone: [facility] 11-09-2022 14:14-0400 Body weight 95.48 kg Treatment Wstr Work Phone: [facility] 11-09-2022 14:14-0400 Diastolic blood pressure 81 mm[Hg] Treatment Wstr Work Phone: [facility] 11-09-2022 14:14-0400 Heart rate 79 /min Treatment Wstr Work Phone: [facility] 11-09-2022 14:14-0400 SaO2% (BldA) [Mass fraction] 96 % Treatment [facility]str Work Phone: [facility] 11-09-2022 14:14-0400 Systolic blood pressure 150 mm[Hg] Treatment Wstr Work Phone: [facility] 10-20-2022 09:18-0400 Body height 170.2 cm Everett Aldrich MD Work Phone: [facility] 10-20-2022 09:18-0400 Body temperature 98.2 [degF] Everett Aldrich MD Work Phone: [facility] 10-20-2022 09:18-0400 Body weight 95.03 kg Everett Aldrich MD Work Phone: [facility] 10-20-2022 09:18-0400 Diastolic blood pressure 82 mm[Hg] Everett Aldrich MD Work Phone: [facility] 10-20-2022 09:18-0400 Heart rate 74 /min Everett Aldrich MD Work Phone: 1(723)[phone] [place] [address] 10-20-2022 09:18-0400 Respiratory rate 14 /min Everett Aldrich MD Work Phone: [facility] 10-20-2022 09:18-0400 SaO2% (BldA) [Mass fraction] 96 % Everett Aldrich MD Work Phone: [facility] 10-20-2022 09:18-0400 Systolic blood pressure 128 mm[Hg] Everett Aldrich MD Work Phone: 0(309)[phone] [place] [address] 10-17-2022 11:52-0400 Body height 172.72 cm [facility] 10-17-2022 11:52-0400 Body temperature 97.1 [degF] [facility] 10-17-2022 11:52-0400 Diastolic blood pressure 121 mm[Hg] [facility] 10-17-2022 11:52-0400 Heart rate 89 /min [facility] 10-17-2022 11:52-0400 Respiratory rate 16 /min [facility] 10-17-2022 11:52-0400 SaO2% (BldA) [Mass fraction] 95 % [facility] 10-17-2022 11:52-0400 Systolic blood pressure 189 mm[Hg] [facility] 10-15-2022 15:23-0400 Diastolic blood pressure 87 mm[Hg] [facility] 10-15-2022 15:23-0400 Systolic blood pressure 180 mm[Hg] [facility] 10-15-2022 11:48-0400 Heart rate 74 /min [facility] 10-15-2022 11:48-0400 Respiratory rate 16 /min [facility] 10-15-2022 11:48-0400 SaO2% (BldA) [Mass fraction] 95 % [facility] 10-15-2022 10:18-0400 Body height 172.72 cm [facility] 10-15-2022 10:18-0400 Body mass index (BMI) [Ratio] 31.1 kg/m2 [facility] 10-15-2022 10:18-0400 Body temperature 97.8 [degF] [facility] 10-15-2022 10:18-0400 Body weight 92.94 kg [facility] 10-12-2022 14:35-0400 Body temperature 97.5 [degF] Treatment [facility]str Work Phone: [facility] 10-12-2022 14:35-0400 Diastolic blood pressure 79 mm[Hg] Treatment [facility]str Work Phone: [facility] 10-12-2022 14:35-0400 Heart rate 92 /min Treatment [facility]str Work Phone: [facility] 10-12-2022 14:35-0400 Respiratory rate 16 /min Treatment [facility]str Work Phone: [facility] 10-12-2022 14:35-0400 SaO2% (BldA) [Mass fraction] 93 % Treatment [facility] Work Phone: [facility] 10-12-2022 14:35-0400 Systolic blood pressure 135 mm[Hg] Treatment [facility]str Work Phone: [facility] 09-14-2022 13:42-0400 Body temperature 97.5 [degF] Treatment [facility]str Work Phone: [facility] 09-14-2022 13:42-0400 Diastolic blood pressure 64 mm[Hg] Treatment [facility]str Work Phone: [facility] 09-14-2022 13:42-0400 Heart rate 75 /min Treatment [facility]str Work Phone: [facility] 09-14-2022 13:42-0400 Systolic blood pressure 131 mm[Hg] Treatment Wstr Work Phone: [facility] 08-18-2022 13:30-0400 Body temperature 97.9 [degF] Treatment [facility]str Work Phone: [facility] 08-18-2022 13:30-0400 Body weight 97.3 kg Treatment [facility]str Work Phone: [facility] 08-18-2022 13:30-0400 Diastolic blood pressure 84 mm[Hg] Treatment [facility]str Work Phone: [facility] 08-18-2022 13:30-0400 Heart rate 84 /min Treatment [facility]str Work Phone: [facility] 08-18-2022 13:30-0400 SaO2% (BldA) [Mass fraction] 97 % Treatment [facility] Work Phone: [facility] 08-18-2022 13:30-0400 Systolic blood pressure 159 mm[Hg] Treatment [facility]str Work Phone: [facility] 07-28-2022 08:55-0400 Body temperature 97.3 [degF] Bree Cornejo ELECTRONIC PREPRESS OPERATOR.ASSISTANT DESIGNER Work Phone: [facility] 07-28-2022 08:55-0400 Body weight 96.16 kg Bree Cornejo ELECTRONIC PREPRESS OPERATOR.ASSISTANT DESIGNER Work Phone: [facility] 07-28-2022 08:55-0400 Diastolic blood pressure 66 mm[Hg] Bree Cornejo ELECTRONIC PREPRESS OPERATOR.ASSISTANT DESIGNER Work Phone: [facility] 07-28-2022 08:55-0400 Heart rate 71 /min Bree Cornejo ELECTRONIC PREPRESS OPERATOR.ASSISTANT DESIGNER Work Phone: [facility] 07-28-2022 08:55-0400 SaO2% (BldA) [Mass fraction] 97 % Bree Cornejo ELECTRONIC PREPRESS OPERATOR.ASSISTANT DESIGNER Work Phone: [facility] 07-28-2022 08:55-0400 Systolic blood pressure 119 mm[Hg] Bree Cornejo ELECTRONIC PREPRESS OPERATOR.ASSISTANT DESIGNER Work Phone: [facility] 07-18-2022 10:50-0400 Body temperature 97.81 [degF] Treatment [facility]str Work Phone: [facility] 07-18-2022 10:50-0400 Diastolic blood pressure 76 mm[Hg] Treatment Wstr Work Phone: [facility] 07-18-2022 10:50-0400 Heart rate 76 /min Treatment [facility]str Work Phone: [facility] 07-18-2022 10:50-0400 Respiratory rate 16 /min Treatment [facility]str Work Phone: [facility] 07-18-2022 10:50-0400 SaO2% (BldA) [Mass fraction] 94 % Treatment [facility] Work Phone: [facility] 07-18-2022 10:50-0400 Systolic blood pressure 118 mm[Hg] Treatment Wstr Work Phone: [facility] 07-11-2022 14:28-0400 Body temperature 98.1 [degF] Denilson Masci DO Work Phone: [facility] 07-11-2022 14:28-0400 Body weight 96.16 kg Denilson Masci DO Work Phone: [facility] 07-11-2022 14:28-0400 Diastolic blood pressure 74 mm[Hg] Denilson Masci DO Work Phone: [facility] 07-11-2022 14:28-0400 Heart rate 84 /min Denilson Masci DO Work Phone: [facility] 07-11-2022 14:28-0400 SaO2% (BldA) [Mass fraction] 97 % Denilson Masci DO Work Phone: [facility] 07-11-2022 14:28-0400 Systolic blood pressure 110 mm[Hg] Denilson Masci DO Work Phone: [facility] 06-22-2022 04:09-0400 Diastolic blood pressure 89 mm[Hg] [facility] 06-22-2022 04:09-0400 Heart rate 85 /min [facility] 06-22-2022 04:09-0400 Respiratory rate 20 /min [facility] 06-22-2022 04:09-0400 SaO2% (BldA) [Mass fraction] 96 % [facility] 06-22-2022 04:09-0400 Systolic blood pressure 150 mm[Hg] [facility] 06-21-2022 23:46-0400 Body mass index (BMI) [Ratio] 30.5 kg/m2 [facility] 06-21-2022 23:46-0400 Body weight 91.2 kg [facility] 06-21-2022 23:30-0400 Body height 172.72 cm [facility] 06-21-2022 23:30-0400 Body temperature 97 [degF] [facility] 05-23-2022 13:32-0500 Body temperature 97.81 [degF] Treatment Wstr Work Phone: [facility] 05-23-2022 13:32-0500 Body weight 96.16 kg Treatment Wstr Work Phone: [facility] 05-23-2022 13:32-0500 Diastolic blood pressure 88 mm[Hg] Treatment Wstr Work Phone: [facility] 05-23-2022 13:32-0500 Heart rate 70 /min Treatment Wstr Work Phone: [facility] 05-23-2022 13:32-0500 Respiratory rate 16 /min Treatment Wstr Work Phone: [facility] 05-23-2022 13:32-0500 SaO2% (BldA) [Mass fraction] 96 % Treatment [facility]str Work Phone: [facility] 05-23-2022 13:32-0500 Systolic blood pressure 152 mm[Hg] Treatment Wstr Work Phone: [facility] 05-05-2022 11:05-0500 Body temperature 97.59 [degF] Injection Wstr Work Phone: [facility] 05-05-2022 11:05-0500 Body weight 96.16 kg Injection Wstr Work Phone: [facility] 05-05-2022 11:05-0500 Diastolic blood pressure 85 mm[Hg] Injection Wstr Work Phone: [facility] 05-05-2022 11:05-0500 Heart rate 78 /min Injection Wstr Work Phone: [facility] 05-05-2022 11:05-0500 Systolic blood pressure 136 mm[Hg] Injection Wstr Work Phone: [facility] 02-01-2022 16:48-0500 Body height 170.2 cm Pranav Tate PA-C Work Phone: [facility] 02-01-2022 16:48-0500 Body temperature 97.11 [degF] Pranav Tate PA-C Work Phone: [facility] 02-01-2022 16:48-0500 Body weight 92.99 kg Pranav Tate PA-C Work Phone: [facility] 02-01-2022 16:48-0500 Diastolic blood pressure 70 mm[Hg] Pranav Tate PA-C Work Phone: [facility] 02-01-2022 16:48-0500 Heart rate 88 /min Pranav Tate PA-C Work Phone: [facility] 02-01-2022 16:48-0500 Respiratory rate 14 /min Pranav Tate PA-C Work Phone: [facility] 02-01-2022 16:48-0500 SaO2% (BldA) [Mass fraction] 97 % Pranav Tate PA-C Work Phone: [facility] 02-01-2022 16:48-0500 Systolic blood pressure 104 mm[Hg] Pranav Tate PA-C Work Phone: [facility] 10-25-2021 13:59-0400 Body temperature 97.7 [degF] Treatment Wstr Work Phone: [facility] 10-25-2021 13:59-0400 Diastolic blood pressure 69 mm[Hg] Treatment Wstr Work Phone: [facility] 10-25-2021 13:59-0400 Heart rate 72 /min Treatment Wstr Work Phone: [facility] 10-25-2021 13:59-0400 Systolic blood pressure 144 mm[Hg] Treatment Wstr Work Phone: [facility] 10-08-2021 09:09-0400 Body height 167 cm Aparna Becerra MD Work Phone: [facility] 10-08-2021 09:09-0400 Body temperature 97.39 [degF] Aparna Becerra MD Work Phone: [facility] 10-08-2021 09:09-0400 Body weight 89.81 kg Aparna Becerra MD Work Phone: [facility] 10-08-2021 09:09-0400 Diastolic blood pressure 63 mm[Hg] Aparna Becerra MD Work Phone: [facility] 10-08-2021 09:09-0400 Heart rate 71 /min Aparna Becerra MD Work Phone: [facility] 10-08-2021 09:09-0400 SaO2% (BldA) [Mass fraction] 98 % Aparna Becerra MD Work Phone: [facility] 10-08-2021 09:09-0400 Systolic blood pressure 101 mm[Hg] Aparna Becerra MD Work Phone: [facility] 09-24-2021 14:19-0400 Body height 172.7 cm Pranav Tate PA-C Work Phone: [facility] 09-24-2021 14:190400 Body temperature 97.5 [degF] Pranav Tate PA-C Work Phone: [facility] 09-24-2021 14:190400 Body weight 89.81 kg Pranav Tate PA-C Work Phone: [facility] 09-24-2021 14:19-0400 Diastolic blood pressure 86 mm[Hg] Pranav Tate PA-C Work Phone: [facility] 09-24-2021 14:19-0400 Heart rate 110 /min Pranav Tate PA-C Work Phone: [facility] 09-24-2021 14:19-0400 Respiratory rate 14 /min Pranav Tate PA-C Work Phone: [facility] 09-24-2021 14:19-0400 SaO2% (BldA) [Mass fraction] 96 % Pranav Tate PA-C Work Phone: [facility] 09-24-2021 14:19-0400 Systolic blood pressure 132 mm[Hg] Pranav Tate PA-C Work Phone: [facility] 08-31-2021 06:09-0400 Heart rate 92 /min Dr. Otto Subramanian Work Phone: [facility] Work Phone: 08-31-2021 06:09-0400 Respiratory rate 18 /min Dr. Otto Subramanian Work Phone: [facility] Work Phone: 08-31-2021 06:09-0400 SaO2% (BldA) [Mass fraction] 99 % Dr. Otto Subramanian Work Phone: [facility] Work Phone: 08-31-2021 04:10-0400 Body height 172.[address] Otto Subramanian Work Phone: [facility] Work Phone: 08-31-2021 04:10-0400 Body mass index (BMI) [Ratio] 30.9 kg/m2 Dr. Otto Subramanian Work Phone: [facility] Work Phone: 08-31-2021 04:10-0400 Body temperature 98.1 [degF] Dr. Otto Subramanian Work Phone: [facility] Work Phone: 08-31-2021 04:10-0400 Body weight 92.[address] Otto Subramanian Work Phone: [facility] Work Phone: 08-31-2021 04:10-0400 Diastolic blood pressure 105 mm[Hg] Dr. Otto Subramanian Work Phone: [facility] Work Phone: 08-31-2021 04:10-0400 Systolic blood pressure 165 mm[Hg] Dr. Otto Subramanian Work Phone: [facility] Work Phone: 08-16-2021 11:37-0400 Respiratory rate 16 /min Dr. Otto Subramanian Work Phone: [facility] Work Phone: 08-16-2021 09:34-0400 Body height 172.[address] Otto Subramanian Work Phone: [facility] Work Phone: 08-16-2021 09:34-0400 Body mass index (BMI) [Ratio] 30.1 kg/m2 Dr. Otto Subramanian Work Phone: [facility] Work Phone: 08-16-2021 09:34-0400 Body temperature 98 [degF] Dr. Otto Subramanian Work Phone: [facility] Work Phone: 08-16-2021 09:34-0400 Body weight 89.[address] Otto Subramanian Work Phone: [facility] Work Phone: 08-16-2021 09:34-0400 Diastolic blood pressure 70 mm[Hg] Dr. Otto Subramanian Work Phone: [facility] Work Phone: 08-16-2021 09:34-0400 Heart rate 90 /min Dr. Otto Subramanian Work Phone: [facility] Work Phone: 08-16-2021 09:34-0400 SaO2% (BldA) [Mass fraction] 94 % Dr. Otto Subramanian Work Phone: [facility] Work Phone: 08-16-2021 09:34-0400 Systolic blood pressure 116 mm[Hg] Dr. Otto Subramanian Work Phone: [facility] Work Phone: 07-21-2021 14:44-0400 Body mass index (BMI) [Ratio] 31.9 kg/m2 Dr. Otto Subramanian Work Phone: [facility] Work Phone: 07-21-2021 14:44-0400 Body weight 92.[address] Otto Subramanian Work Phone: [facility] Work Phone: 07-21-2021 14:44-0400 Diastolic blood pressure 66 mm[Hg] Dr. Otto Subramanian Work Phone: [facility] Work Phone: 07-21-2021 14:44-0400 Heart rate 72 /min Dr. Otto Subramanian Work Phone: [facility] Work Phone: 07-21-2021 14:44-0400 Respiratory rate 18 /min Dr. Otto Subramanian Work Phone: [facility] Work Phone: 07-21-2021 14:44-0400 Systolic blood pressure 123 mm[Hg] Dr. Otto Subramanian Work Phone: [facility] Work Phone: 07-21-2021 14:44-0400 Body mass index (BMI) [Ratio] 31.9 kg/m2 Dr. Otto Subramanian Work Phone: [facility] Work Phone: 07-21-2021 14:44-0400 Body weight 92.[address] Otto Subramanian Work Phone: [facility] Work Phone: 07-21-2021 14:44-0400 Diastolic blood pressure 66 mm[Hg] Dr. Otto Subramanian Work Phone: [facility] Work Phone: 07-21-2021 14:44-0400 Heart rate 72 /min Dr. Otto Subramanian Work Phone: [facility] Work Phone: 07-21-2021 14:44-0400 Respiratory rate 18 /min Dr. Otto Subramanian Work Phone: [facility] Work Phone: 07-21-2021 14:44-0400 Systolic blood pressure 123 mm[Hg] Dr. Otto Subramanian Work Phone: [facility] Work Phone: Encounters Encounter Date Encounter Type Care Provider Facility Start: 02-10-2025 ambulatory Otto Subramanian Facility:[facility] Start: 01-17-2025 End: 01-17-2025 ambulatory WALI IRIZARRY Facility:[id number] Start: 01-10-2025 End: 01-10-2025 ambulatory Otto Subramanian Facility:[facility] Start: 12-31-2024 End: 12-31-2024 Office outpatient visit 25 minutes Freddie Tracy CNP Work Phone: [facility] Cardiology [facility] Comment on above: Primary hypertension (Primary Dx); Hyperlipidemia, unspecified hyperlipidemia type; S/P aortic valve replacement with bioprosthetic valve; Coronary artery disease involving [place] coronary artery of [place] heart without angina pectoris Start: 12-31-2024 End: 12-31-2024 ambulatory FREDDIE BEE [facility] Start: 12-23-2024 End: 12-24-2024 Evaluation and management of inpatient Lashell Salas MD Work Phone: [facility] Cardiac Thoracic Vascular Intensive Care Unit CTV ICU T1 Comment on above: Severe aortic stenos is (Primary Dx) Start: 12-20-2024 End: 12-20-2024 ambulatory Georgiana Cueto ELECTRONIC PREPRESS OPERATOR - ASSISTANT DESIGNER Work Phone: [facility] [facility] Comment on above: Severe aortic stenos is (Primary Dx) Start: 12-20-2024 End: 12-20-[address] Otto Subramanian MD -Laboratory [facility] Start: 12-20-2024 End: 12-20-2024 ambulatory Otto Subramanian Facility:[facility] Start: 12-12-2024 End: 12-12-2024 Subsequent hospital visit by physician Lashell Salas MD Work Phone: [facility] [address] Comment on above: Severe aortic stenos is Start: 12-12-2024 End: 12-12-2024 ambulatory LASHELL SALAS [facility] Start: 11-26-2024 End: 11-26-2024 ambulatory GEE CORMIER [facility] Start: 11-26-2024 End: 11-26-2024 Office outpatient new 60 minutes Lashell Salas MD Work Phone: [facility] Comment on above: Severe aortic stenos is (Primary Dx) Start: 11-26-2024 End: 12-23-2024 Telephone encounter Lashell Salas MD Work Phone: 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 Marcos Mendez MD -Surgical Day Care Start: 11-04-2024 End: 11-04-[address] Otto Subramanian MD Work Phone: -Surgical Day Care Start: 10-07-2024 End: 10-07-2024 Admission to same day surgery center Dr. Osman Bui MD -Lever Tender/Special Procedures Work Phone: Start: 10-07-2024 End: 10-07-[address] Otto Subramanian MD Work Phone: -Lever Tender/Special Procedures Start: 09-29-2024 End: 09-29-2024 Patient encounter procedure Freddie Lee PA -[facility] Work Phone: Start: 09-29-2024 End: 09-29-[address] Otto Subramanian MD Work Phone: -[facility] Start: 09-26-2024 End: 09-26-[address] Otto Subramanian MD Work Phone: -[facility] Start: 09-26-2024 End: 09-26-2024 Patient encounter procedure Riri Peralta NP-Paula -[facility] Work Phone: Start: 09-24-2024 Encounter for preprocedural cardiovascular examination [facility] Start: 09-16-2024 End: 09-16-[address] tOto Subramanian MD Work Phone: -Cardiovascular Services Start: 09-16-2024 End: 09-16-2024 Patient encounter procedure Freddie SALAZAR -Cardiovascular Services Work Phone: Start: 09-16-2024 ambulatory Otto Subramanian Facility:[facility] Start: 09-16-2024 Non-patient / Non-visit Dr. Chel MOLINA [facility] Start: 09-16-2024 End: 09-16-2024 ambulatory Otto Subramanian Facility:[facility] Start: 09-12-2024 ambulatory Freddie SALAZAR Facility:[facility] Start: 09-12-2024 Non-patient / Non-visit Dr. Chel MOLINA [facility] Start: 09-12-2024 End: 09-12-[address] Otto Subramanian MD Work Phone: -Cardiovascular Services Start: 09-12-2024 End: 09-12-2024 Patient encounter procedure Freddie SALAZAR -Cardiovascular Services Work Phone: Start: 09-12-2024 End: 09-12-2024 ambulatory Otto Subramanian Facility:[facility] Start: 08-20-2024 End: 08-20-2024 ambulatory Treatment Rm 14 Nakul [facility] Work Phone: Hematology/Oncology Comment on above: Malignant neoplasm o f prostate (HCC) (Primary Dx); Malignant neoplasm 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) Malignant neoplasm o f prostate (HCC) (Primary Dx); Loss of balance Start: 08-20-2024 End: 08-20-2024 Patient encounter procedure Crissy Pau Work Phone: Hematology/Oncology Start: 08-20-2024 End: 08-20-2024 ambulatory OTTO SUBRAMANIAN Facility:[facility] Start: 07-26-[address] Mai Subramanian MD Work Phone: [facility] Start: 06-27-2024 End: 06-27-2024 Patient encounter procedure Freddie SALAZAR -[facility] Work Phone: Start: 06-27-2024 End: 06-27-[address] Otto Subramanian MD Work Phone: [facility] Work Phone: Start: 06-27-2024 End: 06-27-2024 ambulatory Otto Subramanian Facility:[facility] Start: 06-18-2024 End: 06-18-2024 Patient encounter [...] Start: 06-18-2024 End: 06-18-2024 ambulatory OTTO SUBRAMANIAN Facility:[facility] Start: 06-04-2024 End: 06-04-2024 Follow-up encounter Kaushal Stockton MD Work Phone: Sleep Start: 06-04-2024 End: 06-04-2024 ambulatory OTTO Blandon [place] Facility:[facility] Start: 06-04-2024 End: 06-04-2024 Subsequent hospital visit by physician Mri Radio [facility] (I-Stat/1.5t) Work Phone: Radiology Comment [...] MD Work Phone: Neurology Comment on above: 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 Otto Subramanian MD Work Phone: [facility] Work Phone: Start: 05-23-2024 End: 05-23-[address] Otto Subramanian MD -Physical Therapy Work Phone: Start: 05-23-[address] Otto Subramanian MD -Physical Therapy Work Phone: Start: 03-05-2024 End: 03-05-2024 Patient encounter procedure Everett Aldrich MD Work Phone: Hematology/Oncology Start: 03-05-2024 End: 03-05-2024 ambulatory Treatment Rm 15 Nakul [facility] Work Phone: Hematology/Oncology Comment on above: Malignant neoplasm o f prostate (HCC) (Primary Dx); Malignant neoplasm 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) Loss of balance (Teresa sandee Dx); Osteopenia determined by x-ray; Vitamin D deficiency; Malignant neoplasm 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) Start: 01-24-2024 End: 01-24-2024 Emergency department patient visit Sabas Nayak Facility:[facility] Start: 01-23-2024 End: 01-23-2024 ambulatory OTTO SUBRAMANIAN Facility:[facility] Start: 01-23-2024 End: 01-23-2024 Patient encounter procedure Pranav Tate PA-C Work Phone: Urology Comment on above: OAB (overactive blad jennifer) (Primary Dx); Malignant neoplasm of prostate (HCC) Start: 12-12-2023 End: 12-12-2023 Patient encounter procedure Crissy Mai Work Phone: Hematology/Oncology Start: 12-12-2023 End: 12-12-2023 ambulatory Crissy Mai Work Phone: Hematology/Oncology Comment on above: Malignant neoplasm o f prostate (HCC) (Primary Dx) Malignant neoplasm o f prostate (HCC) (Primary Dx); Malignant neoplasm 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) Start: 09-19-2023 End: 09-19-2023 ambulatory Everett Aldrich MD Work Phone: Hematology/Oncology Comment on above: Malignant neoplasm o f prostate (HCC) (Primary Dx); Malignant neoplasm 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) Start: 09-19-2023 End: 09-19-2023 Patient encounter procedure Everett Aldrich MD Work Phone: Hematology/Oncology Start: 06-30-2023 Telephone encounter Everett mcghee MD Work Phone: Hematology/Oncology Comment on above: Results Start: 06-27-2023 End: 06-27-2023 ambulatory Everett Aldrich MD Work Phone: Hematology/Oncology Comment on above: 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 Start: 06-09-2023 Non-patient / Non-visit Dr. Edgar Subramanian Work Phone: [facility] Work Phone: Start: 06-09-2023 Non-patient / Non-visit Dr. Edgar Subramanian Work Phone: [facility] Start: 06-09-2023 End: 06-09-[address] Otto Subramanian Work Phone: [facility] Work Phone: Start: 06-09-2023 End: 06-09-[address] Otto Subramanian Work Phone: [facility]-Cardiovascul ar Services Work Phone: Start: 06-07-2023 Refill Everett coughlin MD Work Phone: Hematology/Oncology Comment on above: medication questions Start: 06-06-2023 Non-patient / Non-visit Dr. Edgar Subramanian Work Phone: [facility] Work Phone: Start: 06-05-2023 Non-patient / Non-visit Dr. Edgar Subramanian Work Phone: [facility] Start: 06-05-2023 End: 06-05-[address] Otto Subramanian Work Phone: [facility] Work Phone: Start: 06-05-2023 End: 06-05-[address] Otto Subramanian Work Phone: [facility]-Cardiovascul ar Services Work Phone: Start: 05-23-2023 End: 05-23-[address] 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); Malignant neoplasm of prostate (HCC) Start: 01-30-2023 Refill Everett coughlin MD Work Phone: Hematology/Oncology Comment on above: Refill Request Start: 01-06-2023 Telephone encounter Everett mcghee MD Work Phone: Hematology/Oncology Comment on above: Appointment Start: 11-09-2022 End: 11-09-2022 ambulatory Treatment Rm 8 [facility] Work Phone: Hematology/Oncology Comment on above: 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); Malignant neoplasm of prostate (HCC) Start: 09-14-2022 End: 09-14-2022 ambulatory Treatment Rm 3 [facility] Sirific Wirelesstr Work Phone: Hematology/Oncology Comment on above: 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); Malignant neoplasm of prostate (HCC) Start: 08-18-2022 End: 08-18-2022 ambulatory Treatment Rm 10 [facility] Sirific Wirelesstr Work Phone: Hematology/Oncology Comment on above: Malignant neoplasm o f prostate (HCC) (Primary Dx); Malignant neoplasm 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) Start: 08-17-2022 Orders Only Denilson James Work Phone: Hematology/Oncology Start: 07-28-2022 End: 07-28-2022 Patient encounter procedure [facility] Start: 07-28-2022 End: 07-28-2022 ambulatory Injection [facility] Sirific Wirelesstr Work Phone: Hematology/Oncology Comment on above: 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 Start: 06-29-2022 Telephone encounter Irene vitale RN Work Phone: Hematology/Oncology Comment on above: Care Coordination (p atient update-weakness) Start: 06-24-2022 Telephone encounter Denilson elliott DO Work Phone: Hematology/Oncology Comment on above: Patient Update (Weak ness) Start: 06-21-2022 End: 06-22-2022 Emergency department patient visit [facility]Emergency Department Start: 06-21-2022 Telephone encounter Irene vitale RN Work Phone: Hematology/Oncology Comment on above: Patient Update (Symp toms) Start: 06-13-2022 Specialty Pharmacy Robert Jensen [facility] Comment on above: SPP Oral Oncology/he matology - Medication Refill (Erleada) Start: 05-23-2022 End: 05-23-2022 ambulatory Treatment Rm 5 [facility] Work Phone: Hematology/Oncology Comment on above: Bone metastases (HCC ) (Primary Dx); Malignant neoplasm of prostate (HCC) Start: 05-05-2022 End: 05-05-2022 ambulatory Injection Nakul [facility] Work Phone: Hematology/Oncology Comment on above: Bone metastases (HCC ) (Primary Dx); Malignant neoplasm of prostate (HCC) Start: 04-28-2022 [facility] Comment on above: SPP Oral Oncology/he matology - Medication Refill (Erleada 60mg) Start: 04-26-2022 Telephone encounter Bree mishra APRN.ASSISTANT DESIGNER Work Phone: Hematology/Oncology Comment on above: Results Start: 04-25-2022 End: 04-25-2022 ambulatory Treatment Rm 2 [facility] Work Phone: Hematology/Oncology Comment on above: Bone metastases (HCC ) (Primary Dx); Malignant neoplasm of prostate (HCC) Start: 04-22-2022 Orders Only Bree camarillo APRN.ASSISTANT DESIGNER Work Phone: Hematology/Oncology Start: 04-06-2022 Specialty Pharmacy Robert Jensen [facility] Comment on above: SPP Oral Oncology/he matology - Medication Refill (Erleada 6-mg) Start: 03-08-2022 Specialty Pharmacy Robert Jensen [facility] Comment on above: SPP Oral Oncology/he matology - Medication Refill (Erleada 60mg) Start: 03-07-2022 Refill Denilson James Work Phone: Hematology/Oncology Comment on above: Refill Request Start: 03-03-2022 End: 03-03-2022 ambulatory [facility] Work Phone: Start: 03-03-2022 End: 03-03-2022 Discharged Recurring [facility]-Physical Therapy Start: 02-04-2022 Specialty Pharmacy Robert Jensen [facility] Comment on above: SPP Oral Oncology/he matology - Medication Refill (Erleada) Start: 02-01-2022 End: 02-01-2022 Patient encounter procedure Pranav Tate PA-C Work Phone: Urology Comment on above: Elevated PSA (Primar y Dx) Start: 01-25-2022 Telephone encounter Pranav SALAZAR-Paula Work Phone: Urology Comment on above: Patient Question Start: 01-19-2022 Telephone encounter Pranav SALAZAR-C Work Phone: Urology Comment on above: Patient Question Start: 01-10-2022 Specialty Pharmacy Adwoa Tinajero [facility] Comment on above: SPP Oral Oncology/he matology - Medication Refill (Erleada) Start: 01-07-2022 Telephone encounter Aparna Becerra MD Work Phone: Hematology/Oncology Comment on above: Release Of Medical R ecords Start: 12-07-2021 Specialty Pharmacy Robert Jensen [facility] Comment on above: SPP Oral Oncology/he matology - Medication Refill (Erleada) Start: 12-06-2021 Refill Aparna Becerra MD Work Phone: Hematology/Oncology Comment on above: Refill Request Start: 11-03-2021 Specialty Pharm[facility] L[facility] Comment on above: SPP Oral Oncology/he matology - Medication Refill (Erleada 60mg) Start: 11-01-2021 Telephone encounter Aparna Becerra MD Work Phone: Hematology/Oncology Comment on above: Patient Question Start: 10-25-2021 End: 10-25-2021 ambulatory Treatment Rm 8 [facility] Work Phone: Hematology/Oncology Comment on [...] Start: 10-08-2021 End: 10-08-2021 ambulatory Adwoasupriya Tinajero [facility] Comment on above: Malignant neoplasm o f prostate (HCC) (Primary Dx); Bone metastases (HCC); Osteopenia determined by x-ray Start: 10-08-2021 End: 10-08-2021 Patient encounter procedure Adwoa Tinajero [facility] Comment on above: SPP Oral Oncology/he matology - Treatment Referral (Jacquelyn); Insurance Authorization (Pending PA) Start: 09-27-2021 Telephone encounter Pranav shrestha PA-C Work Phone: Urology Comment on above: results of body scan Start: 09-24-2021 End: 09-24-[address] Otto Subramanian Work Phone: [facility]-Nuclear Medicine, [facility] Comment on above: Prostate cancer (HCC ) (Primary Dx); Elevated PSA Start: 09-22-2021 Telephone encounter Pranav shrestha PA-C Work Phone: Urology Comment on above: Request Outside [facility] Records Start: 09-17-2021 End: 09-17-[address] Otto Subramanian Work Phone: [facility] Start: 08-31-2021 End: 08-31-2021 Emergency department patient visit Dr. Otto Subramanian Work Phone: [facility]-Emergency Department Start: 08-24-2021 End: 08-24-[address] Otto Subramanian Work Phone: [facility] Start: 08-16-2021 End: 08-16-2021 Emergency department patient visit Dr. Otto Subramanian Work Phone: [facility]-Emergency Department Start: 07-21-2021 End: 07-21-[address] Otto Subramanian Work Phone: [facility] Procedures Date Procedure Procedure Detail Performing Clinician Start: 12-31-2024 Ecg routine ecg w/le ast 12 lds trcg only w/o i&r Lasehll Salas MD Work Phone: Start: 12-31-2024 Adult depression scr eening assessment Lashell Salas MD Work Phone: Start: 12-24-2024 Echo tthrc r-t 2d w/wom-mode compl spec&colr d Freddie Bee ELECTRONIC PREPRESS OPERATOR - ASSISTANT DESIGNER Work Phone: Start: 12-24-2024 Ecg routine ecg w/le ast 12 lds trcg only w/o i&r Freddie Bee ELECTRONIC PREPRESS OPERATOR - ASSISTANT DESIGNER Work Phone: Start: 12-24-2024 Basic metabolic pane l calcium total Freddie Bee ELECTRONIC PREPRESS OPERATOR - ASSISTANT DESIGNER Work Phone: Start: 12-23-2024 Basic metabolic pane l calcium total Freddie Bee ELECTRONIC PREPRESS OPERATOR - ASSISTANT DESIGNER Work Phone: Start: 12-23-2024 Ecg routine ecg w/le ast 12 lds trcg only w/o i&r Freddie Bee ELECTRONIC PREPRESS OPERATOR - ASSISTANT DESIGNER Work Phone: Start: 12-23-2024 OXYGEN THERAPY Freddie Bee ELECTRONIC PREPRESS OPERATOR - ASSISTANT DESIGNER Work Phone: Start: 12-23-2024 Cardiac catheterizat ion study Lashell Salas MD Work Phone: Start: 12-23-2024 Echo transthorc r-t 2d w/wo m-mode rec f-up/lmtd Lashell Salas MD Work Phone: Start: 12-23-2024 Antibody screen LASHELL [place] Comment on above: Performed By: #### L [id number] ####Computer Network Specialist: CARLA SOLORZANO ([phone])[facility] BLOOD [facility] ([facility])[address] [place] [address] Start: 12-23-2024 ABO and Rh group [Ty pe] in Blood by Confirmatory method Georgiana Cueto ELECTRONIC PREPRESS OPERATOR - ASSISTANT DESIGNER Work Phone: Start: 12-23-2024 Blood typing serologic abo Georgiana Cueto ELECTRONIC PREPRESS OPERATOR - ASSISTANT DESIGNER Work Phone: Start: 12-12-2024 Ct angiography chest w/contrast/noncontrast Lashell Salas MD Work Phone: Start: 12-03-2024 Ecg routine ecg w/le ast 12 lds w/i&r Lashell Salas MD Work Phone: Start: 11-26-2024 Ecg routine ecg w/le ast 12 lds trcg only w/o i&r Lashell Salas MD Work Phone: Start: 11-04-2024 Destructive procedur e of nerve Dr. Otto Subramanian MD Work Phone: Start: 11-04-2024 Fluoroscopic guidance Naun Subramanian MD Work Phone: Start: 11-04-2024 Radiologic examinati on knee 1/[address] Otto Subramanian MD Work Phone: Start: 09-26-2024 X-ray of chest, PA a nd lateral views Dr. Otto Subramanian MD Work Phone: Start: 09-12-2024 Cardiovascular stres s test using [...] Date Care Activity Detail Author Start: 05-25-2033 DTaP/Tdap/Td Vaccine s (2 - Td or Tdap) DTaP/Tdap/Td Vaccines (2 - Td or Tdap) [facility] Start: 05-25-2033 Urine microalbumin profile DTaP,Tdap,Td Vaccine (2 - Td or Tdap) [facility] Start: 11-13-2027 Diabetes Screening Diabetes Screenin [facility] Start: 08-21-2027 Diabetes Screening Diabetes Screenin [facility] Start: 05-29-2027 Diabetes Screening Diabetes Screenin [facility] Start: 03-05-2027 Diabetes Screening Diabetes Screenin g [facility] Start: 12-11-2026 Diabetes Screening Diabetes Screenin g [facility] Start: 09-18-2026 Diabetes Screening Diabetes Screenin g [facility] Start: 06-26-2026 Diabetes Screening Diabetes Screenin g [facility] Start: 04-03-2026 Diabetes Screening Diabetes Screenin g [facility] Start: 03-03-2026 Diabetes Screening Diabetes Screenin g [facility] Start: 01-12-2026 Diabetes Screening Diabetes Screenin g [facility] Start: 01-05-2026 Diabetes Screening Diabetes Screenin g [facility] Start: 12-31-2025 Depression Screening Depression Scre ening [facility] Start: 11-09-2025 DIABETES SCREEN DIABETES SCREEN [facility] Start: 10-20-2025 DIABETES SCREEN DIABETES SCREEN [facility] Start: 10-12-2025 DIABETES SCREEN DIABETES SCREEN [facility] Start: 09-14-2025 DIABETES SCREEN DIABETES SCREEN [facility] Start: 08-18-2025 DIABETES SCREEN DIABETES SCREEN [facility] Start: 07-18-2025 DIABETES SCREEN DIABETES SCREEN [facility] Start: 06-20-2025 DIABETES SCREEN DIABETES SCREEN [facility] Start: 05-23-2025 DIABETES SCREEN DIABETES SCREEN [facility] Start: 04-25-2025 DIABETES SCREEN DIABETES SCREEN [facility] Start: 02-04-2025 End: 02-04-2025 ambulatory Carolin Ramos [facility] Comment on above: (SO)CBC/CMP(S)/PSA* 3MO OV/LAB EARLY/ZOM LUISITO PALACIOSRON TODAY* ABRAMOVICH 2nd Start: 01-28-2025 End: 01-28-2025 Patient encounter procedure 01/28/2025 9:00 AM EST Office Visit Urology [address] [place] [address] Pranav Tate PA-C [address] [place] [address] 1 YR F/U Urology Comment on above: 1 YR F/U Start: 01-10-2025 End: 01-10-2025 Patient encounter procedure Edema -[facility] Work Phone: Start: 01-07-2025 DIABETES SCREEN DIABETES SCREEN [facility] Start: 12-31-2024 End: 12-31-2024 Patient encounter procedure 12/31/2024 1:30 PM EDT Office Visit [facility] Cardiology - [address] [place] [phone] Freddie Bee, ELECTRONIC PREPRESS OPERATOR - ASSISTANT DESIGNER [address] [place] [id number] [facility] - [facility] Start: 12-23-2024 End: 12-23-2024 Admission to same day surgery center 12/23/2024 2:00 PM EDT - 12/23/2024 3:45 PM EDT Surgery [facility] MAIN OR [address] [place] [phone] Lashell Salas MD [address] [place] [address] TRANSCATHETER AORTIC VALVE REPLACEMENT, TRANSTHORACIC ECHOCARDIOGRAM [facility] MAIN OR Comment on above: TRANSCATHETER AORTIC VALVE REPLACEMENT, TRANSTHORACIC ECHOCARDIOGRAM Start: 12-23-2024 End: 12-23-2024 Anesthesia consultation 12/23/2024 2:00 PM EDT Anesthesia Event [facility] MAIN OR [address] [facility] [place] [phone] Otis Turner DO [address] [place] [id number] [facility] OR Start: 12-23-2024 Subsequent hospital visit by physician [facility] MAIN OR Comment on above: Severe aortic stenos is Start: 12-23-2024 End: 12-23-2024 TRANSCATHETER AORTIC VALVE REPLACEMENT (TAVR) - OR TRANSCATHETER AORTIC VALVE REPLACEMENT (TAVR) - OR Severe aortic stenosis 12/23/2024 2:00 PM EDT [facility] Start: 12-12-2024 End: 12-12-2024 Patient encounter procedure 12/12/2024 11:00 AM EDT Appointment [facility] [address] [place] [phone] Lashell Salas MD [address] [place] [address] [facility] [address] Start: 11-26-2024 End: 11-25-2025 CBC W Auto Differential panel - Blood CBC auto differential Lab Routine Severe aortic stenosis Expected: 11/26/2024 (Approximate), Expires: 11/25/2025 [facility] Work Phone: Comment on above: Expected: 11/26/2024 (Approximate), Expires: 11/25/2025 Start: 11-26-2024 End: 11-25-2025 Comprehensive metabolic 1998 panel - Serum or Plasma Comprehensive metabolic panel Lab Routine Severe aortic stenosis Expected: 11/26/2024 (Approximate), Expires: 11/25/2025 [facility] Comment on above: Expected: 11/26/2024 (Approximate), Expires: 11/25/2025 Start: 11-26-2024 End: 11-25-2025 CT Chest WO and CT angiogram Coronary arteries W contrast IV CTA Angiogram TAVR Imaging Routine Severe aortic stenosis Expected: 11/26/2024, Expires: 11/25/2025 [facility] Comment on above: Expected: 11/26/2024 , Expires: 11/25/2025 Start: 11-18-2024 COVID-19 Vaccine ( season) COVID-19 Vaccine () [facility] Start: 11-18-2024 Influenza vaccination Influenza Vacc ine (#1) [facility] Start: 11-12-2024 End: 11-12-2024 ambulatory [facility] Comment on above: (SO)CBC/CMP(S)/PSA* 3MO OV/LAB EARLY/ZOM ETA,LUPRON TODAY* ABRAMOVICH 2nd Start: 11-04-2024 Destruction neurolyt ic agt genicular nerve w/img DSTRJ NULYT AGT GNCLR NRV [facility] Start: 11-04-2024 X-ray of knee, one o r two views Knee 1 or 2 Views [facility] Start: 11-04-2024 XR Knee 1 or 2 Views [facility] Start: 11-04-2024 Patient discharge [facility] Start: 10-21-2024 DIABETES SCREEN DIABETES SCREEN [facility] Start: 10-08-2024 DIABETES SCREEN DIABETES SCREEN [facility] Start: 10-07-2024 Patient discharge [facility] Start: 09-26-2024 End: 09-26-2024 Evaluation of diagnostic study results [facility] Start: 08-20-2024 End: 08-20-2024 ambulatory 08/20/2024 1:30 PM EDT [facility]fusion [facility] Hematology/Oncology [address] [place] [address] 2nd Hematology/Oncology Comment on above: 2nd Start: 08-20-2024 End: 08-20-2024 ambulatory [facility] Comment on above: (SO)CBC/CMP(S)/PSA* 3MO OV/LAB EARLY/ZOM ETA,LUPRON TODAY* 3MO OV/LAB EARLY/ZOM ETA,LUPRON TODAY* [facility] Start: 06-27-2024 Patient referral [facility] Work Phone: Start: 06-18-2024 End: 06-18-2024 Patient encounter procedure 06/18/2024 1:45 PM EDT Office Visit Neurology [address] [place] [address] Leisa Robb PA-C [address] [place] [address] post MRI Neurology Comment on above: post MRI Start: 06-04-2024 End: 06-04-2024 Patient encounter procedure Radiology Comment on above: Low back pain, unspe cified back pain laterality, unspecified chronicity, unspecified whether sciatica present [M54.50] Start: 05-28-2024 End: 05-28-2024 ambulatory 05/28/2024 1:30 PM EDT Infusion Center Hematology/Oncology [address] [place] [address] 2nd Hematology/Oncology Comment on above: 2nd Start: 05-28-2024 End: 05-28-2024 ambulatory [facility] Comment on above: (SO)CBC/CMP(S)/PSA* 3MO OV/LAB EARLY/ZOM ETA,LUPRON TODAY* Start: 05-24-2024 End: 05-24-2024 Patient encounter procedure 05/24/2024 10:40 AM EST Office Visit Neurology [address] [place] [address] Kaushal Stockton Jr., MD [address] [place], [place] [id number] Loss of balance [R26.89] Neurology Comment on above: Loss of balance [R26 .89] Start: 03-20-2024 Advance Directive Discussion Advance Directive Discussion [facility] Start: 03-20-2024 Medicare Advantage A nnual Wellness Visit Medicare Advantage Annual Wellness Visit [facility] Start: 03-05-2024 End: 03-05-2024 ambulatory [facility] Comment on above: (SO)CBC/CMP(S)/PSA* OV/LAB EARLY/ZOMETA, LUPRON TOAY* 2nd Start: 12-12-2023 End: 12-12-2023 ambulatory [facility] Comment on above: (SO)CBC/CMP(S)/PSA* OV/LAB EARLY/ZOMETA, LUPRON TOAY* Q3MO ZOMETA(AUTH EXP 03/19/24)Q3MO LUPRON(AUTH EXP 06/21/24)LAB&OV TODAY* Start: 11-19-2023 Covid-19 Vaccine ( season) Covid-19 Vaccine ( season) [facility] Start: 11-19-2023 Influenza vaccination Influenza Vacc ine (#1) [facility] Start: 03-20-2023 Advance Directive Discussion Advance Directive Discussion [facility] Start: 03-20-2023 Behavioral Health Screening Behavioral Health Screening [facility] Start: 03-20-2023 Depression Assessment Depression Ass essment [facility] Start: 11-18-2022 Covid-19 Vaccine ( season) Covid-19 Vaccine ( season) [facility] Start: 11-18-2022 Influenza vaccination INFLUENZA (#1) [facility] Start: 07-18-2022 End: 09-17-2022 CBC W Auto Differential panel - Blood [facility] Work Phone: Comment on above: Expected: 07/18/2022 , Expires: 09/17/2022 Expected: 07/18/2022 (Approximate), Expires: 09/17/2022 Start: 07-18-2022 End: 09-17-2022 Comprehensive metabolic 2000 panel - Serum or Plasma [facility] Work Phone: Comment on above: Expected: 07/18/2022 , Expires: 09/17/2022 Expected: 07/18/2022 (Approximate), Expires: 09/17/2022 Start: 07-18-2022 End: 09-17-2022 Prostate specific Ag [Mass/volume] in Serum or Plasma [facility] Work Phone: Comment on above: Expected: 07/18/2022 , Expires: 09/17/2022 Start: 05-25-2022 End: 07-25-2022 Prostate specific Ag [Mass/volume] in Serum or Plasma PSA/PROSTSPECAG DIAG Lab Routine Prostate cancer (HCC) Expected: 05/25/2022 (Approximate), Expires: 07/25/2022 [facility] Work Phone: Comment on above: Expected: 05/25/2022 (Approximate), Expires: 07/25/2022 Start: 03-20-2022 ADVANCE DIRECTIVE DISCUSSION ADVANCE DIRECTIVE DISCUSSION [facility] Start: 03-20-2022 DEPRESSION ASSESSMENT DEPRESSION ASS ESSMENT [facility] Start: 01-25-2022 End: 03-27-2022 Prostate specific Ag [Mass/volume] in Serum or Plasma PSA/PROSTSPECAG DIAG Lab Routine Prostate cancer (HCC) Expected: 01/25/2022, Expires: 03/27/2022 [facility] Work Phone: Comment on above: Expected: 01/25/2022 , Expires: 03/27/2022 Start: 11-18-2021 Influenza vaccination INFLUENZA (#1) [facility] Start: 05-22-2021 COVID-19 VACCINE (4 - Booster for Moderna series) COVID-19 VACCINE (4 - Booster for Moderna series) [facility] Start: 04-24-2021 COVID-19 VACCINE (4 - Booster for Moderna series) COVID-19 VACCINE (4 - Booster for Moderna series) [facility] Start: 04-16-2021 COVID-19 VACCINE (4 - Booster for Moderna series) COVID-19 VACCINE (4 - Booster for Moderna series) [facility] Start: 03-20-2021 ADVANCE DIRECTIVE DISCUSSION ADVANCE DIRECTIVE DISCUSSION [facility] Start: 03-20-2021 DEPRESSION ASSESSMENT DEPRESSION ASS ESSMENT [facility] Start: 03-19-2021 COVID-19 VACCINE (4 - Booster for Moderna series) COVID-19 VACCINE (4 - Booster for Moderna series) [facility] Start: 03-19-2021 COVID-19 VACCINE (4 - Moderna series) COVID-19 VACCINE (4 - Moderna series) [facility] Start: 10-12-2020 COVID-19 VACCINE (3 - Booster for Moderna series) COVID-19 VACCINE (3 - Booster for Moderna series) [facility] Start: 01-10-2016 Pneumococcal Vaccine : 65+ (2 - PCV) Pneumococcal Vaccine: 65+ (2 - PCV) [facility] Start: 01-10-2016 Pneumococcal Vaccine : 65+ (2 of 2 - PCV) Pneumococcal Vaccine: 65+ (2 of 2 - PCV) [facility] Start: 01-10-2016 PNEUMOCOCCAL: 65+ (2 - PCV) PNEUMOCOCCAL: 65+ (2 - PCV) [facility] Start: 07-12-2013 DIABETES SCREEN DIABETES SCREEN [facility] Start: 08-29-2011 RSV Vaccine (1 - 1-d ose 75+ series) RSV Vaccine (1 - 1-dose 75+ series) [facility] Start: 12-18-2008 PNEUMOCOCCAL: 65+ (2 - PCV) PNEUMOCOCCAL: 65+ (2 - PCV) [facility] Start: 09-09-2000 Urine microalbumin profile [facility] Start: 1996 RSV Vaccine (1 - 1-d ose 60+ series) RSV Vaccine (1 - 1-dose 60+ series) [facility] Start: 1986 SHINGRIX VACCINE (1 of 2) BENAVIDES GRIX VACCINE (1 of 2) [facility] Start: 08-29-1955 SHINGRIX VACCINE (1 of 2) BENAVIDES GRIX VACCINE (1 of 2) [facility] Start: 08-29-1955 Urine microalbumin profile DTAP,TDAP,TD (1 - Tdap) [facility] Start: 1954 Anxiety Screening Anxiety Screening [facility] Start: 1954 Depression Screening Depression Scre ening [facility] Start: 1948 Depression Screening Depression Scre ening [facility] Start: 06-11-1937 Lipid panel Lipid Panel [facility] Basic metabolic 2008 panel with ionized calcium - Serum or Plasma [facility] Basic metabolic 2008 panel with ionized calcium - Serum or Plasma [facility] Cardiac catheterizat ion study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 regular rhythm. Pulmonary: Effort: Pulmonary effort is normal. Breath sounds: Normal breath sounds. Abdominal: General: Bowel sounds are normal. Palpations: Abdomen is soft. Musculoskeletal: General: Normal range of motion. Cervical back: Normal range of motion and neck supple. Right lower leg: Edema present. Left lower leg: Edema present. Skin: General: Skin is warm and dry. Comments: Right wrist and groin soft without bleeding or hematoma Neurological: General: No focal deficit present. Mental Status: He is alert and oriented to person, place, and time. Psychiatric: Mood and Affect: Mood normal. Thought Content: Thought content normal. Procedures: Transfemoral transcatheter AVR with 26 mm Maury S3 valve under moderate sedation Transthoracic echocardiogram HOSPITAL COURSE : The patient was admitted to the hospital for elective TAVR on 12/24/2024 . A 26 Maury S3 valve was implanted. The patient returned to [facility] for recovery. Vital signs and labs were stable. There were no groin complications. The patient was ambulatory the evening of the procedure. Post procedure echocardiogram demonstrated : Left Ventricle: Left ventricle size is normal. Increased wall thickness. Septal thickening. Hyperdynamic left ventricular systolic function. EF by 2D Simpsons Biplane is 79%. Normal wall motion. Right Ventricle: Right ventricle size is normal. Normal systolic function. TAPSE is normal. Aortic Valve: Lo Maury 3 Ultra bioprosthetic aortic valve that is well-seated with a size of 23 mm. AV mean gradient is 7 mmHg. No cusp thickening. No cusp calcification. Tricuspid Valve: Unable to assess RVSP due to not being able to assess RA pressure. IVC/Hepatic Veins: IVC size is normal. Cannot estimate RA pressure due to the IVC not being visualized. Pericardium: Evidence of prominent epicardial fat. No pericardial effusion. Patient education including SBE prophylaxis, activity, access site care, follow up appointments, and medications was provided. The patient verbalized understanding, questions were answered. The patient was discharged home in good condition. Referral to cardiac rehabilitation has been recommended and discussed with the patient prior to discharge. Referral has been made to the [facility] Outpatient Cardiac Rehabilitation Program. Last Labs: Lab Results Component Value Date WBC 8.7 12/24/2024 HGB 11.9 (L) 12/24/2024 HCT 35.5 (L) 12/24/2024 MCV 95.4 12/24/2024 PLT 221 12/24/2024 Lab Results Component Value Date NA 139 12/24/2024 K 3.9 12/24/2024 CL 104 12/24/2024 CO2 24 12/24/2024 BUN 26 (H) 12/24/2024 CREATININE 0.86 12/24/2024 GLUCOSE 109 12/24/2024 CALCIUM 8.8 12/24/2024 No results found for: "CHLPL", CHOL No results found for: "TRIG" No results found for: "HDL" No results found for: "LDLCALC" Discharge Medications: Medication List CONTINUE taking these medications aspirin 81 MG EC tablet atorvastatin 20 MG tablet Commonly known as: Lipitor [id number]-[id number]-QRP D PO hydroCHLOROthiazide 12.5 MG tablet losartan 25 MG tablet Commonly known as: Cozaar MAGnesium-Oxide 400 (240 Mg) MG tablet Generic drug: magnesium oxide metoprolol tartrate 25 MG tablet Commonly known as: Lopressor nitroglycerin 0.4 MG (more content not included)... [facility] 12-24-2024 Hospital Discharg e instructions Freddie Bee APRN - GIAN - 12/24/2024 9:06 AM EDT - Please call the Heart Valve Clinic with any questions: [phone] -You will have have the following follow up appointments in the Heart Valve Clinic: one week post procedure, one month post procedure with echocardiogram, one year post procedure with echocardiogram. -Wash groin/wrist incision with soap and water, pat dry. Apply bandage for 5 days. If you have a chest incision, you will receive specific instructions from your surgeon regarding care of the incision. -Check incision every day. If you see any changes in the way it looks, call the Heart Valve Clinic at . Look for any of these problems: redness and warmth that does not go away, yellow or green drainage from the wound, fever and chills, numbness in your legs, pain that is getting worse. -It is normal to have a bruise or soft lump in the groin. This will get smaller and go away with time -Do not drive until after your first Heart Valve Clinic Appointment. -Do not lift, push, or pull anything weighing more than 5 lbs or more for one week if you had the procedure through your groin and 4 weeks if you had the procedure through the chest -We strongly encourage a regular exercise program such as cardiac rehabilitation once you have been cleared to resume normal activity. -Eating well is important for your recovery. Eat nutritious foods every day. Please follow a cardiac, 2 gram sodium diet. Please continue to follow any other dietary recommendations provided by your health care provider prior to your valve surgery. -From now on, tell your doctors and health care providers about your heart valve implantation (prosthetic heart valve ). -If you go to the emergency room or are admitted to the hospital during the first year after your procedure, please call the Heart Valve Clinic at -If you have major dental work or other invasive medical procedures (like surgery) you may need to take antibiotics before the dental work or the procedure. Please discuss with your health care provider. - You will need to take blood thinning medications (antiplatelet) after your valve procedure. Generally, this includes aspirin alone, unless you take blood thinning medications for another indication (warfarin, apixaban, rivaroxaban). If you take blood thinning medications, these are generally sufficient and aspirin will not be required unless otherwise specified. documented in this encounter [facility] 12-23-2024 Note Patient: Alex irwin Procedure Summary Date: 12/23/24 Room / Location: [facility] Operating Room Anesthesia Start: 1430 Anesthesia Stop: 1615 Procedures: TRANSCATHETER AORTIC VALVE REPLACEMENT, TRANSTHORACIC ECHOCARDIOGRAM TRANSCATHETER AORTIC VALVE REPLACEMENT, TRANSTHORACIC ECHOCARDIOGRAM (Chest) Diagnosis: Severe aortic stenosis (Severe aortic stenosis) Surgeons: Lashell Salas MD; Jacob Cervantes DO Responsible Provider: Tim Flower CRNA Anesthesia Type: MAC ASA Status: 4 Anesthesia Type: MAC Vitals Value Taken Time BP 128/62 12/23/24 16:15 Temp 97.6 12/23/24 16:20 Pulse 71 12/23/24 16:18 Resp 16 12/23/24 16:18 SpO2 96 % 12/23/24 16:18 Vitals shown include unfiled device data. Anesthesia Post Evaluation Patient participation: complete - patient participated Level of consciousness: alert and awake Pain management: adequate Airway patency: patent Respiratory status: supplemental oxygen and spontaneous ventilation Cardiovascular status: hemodynamically stable Hydration status: WDL PONV: none There were no known notable events for this encounter. MIPS #[id number] PONV Patient did not receive an inhalational anesthetic (XX430) MIPS # 424 Perioperative Temperature Management Anesthesia time was 60 minutes or longer (4255F) Anesthesai administered was General (inhalational or TIVA) or Neuraxial block (X0424) At least one body temperature greater than 95.8F/35.5C achieved within the 30 mins immediately prior to or the 15 minutes immediately following anesthesia end time (G9771) MIPS #477 Multimodal Pain Management Not emergent case Patient was not administered multimodal pain management (G2149) No Reason (G2150) MIPS #404 Anesthesiology Smoking Abstinence The patient is not a current smoker (e.g. cigarette, cigar, pipe, e-cigarette/vaping/marijuana) If no stop here (XX404) I completed my handoff to the receiving clinician during which we: 1. Identified the patient 2. Identified the responsible provider 3. Reviewed the pertinent medical history 4. Discussed the surgical course 5. Reviewed intra-op anesthesia management and issues during anesthesia 6. Set expectations for post-procedure period 7. Allowed opportunity for questions and acknowledgement of understanding. [facility] 12-23-2024 Note Patient: Alex irwin Procedure Summary Date: 12/23/24 Room / Location: [facility] Operating Room Anesthesia Start: 1430 Anesthesia Stop: 1615 Procedures: TRANSCATHETER AORTIC VALVE REPLACEMENT, TRANSTHORACIC ECHOCARDIOGRAM TRANSCATHETER AORTIC VALVE REPLACEMENT, TRANSTHORACIC ECHOCARDIOGRAM (Chest) Diagnosis: Severe aortic stenosis (Severe aortic stenosis) Surgeons: Lashell Salas MD; Jacob Cervantes DO Responsible Provider: Tim Flower CRNA Anesthesia Type: MAC ASA Status: 4 Anesthesia Type: MAC Vitals Value Taken Time BP 128/62 12/23/24 16:15 Temp 97.6 12/23/24 16:19 Pulse 71 12/23/24 16:18 Resp 16 12/23/24 16:18 SpO2 96 % 12/23/24 16:18 Vitals shown include unfiled device data. Anesthesia Post Evaluation Patient location during evaluation: ICU Patient participation: complete - patient participated Level of consciousness: alert and awake Pain management: adequate Cardiovascular status: acceptable and hemodynamically stable Respiratory status: spontaneous ventilation, nasal cannula and acceptable Hydration status: acceptable Nausea/Vomiting: controlled There were no known notable events for this encounter. Patient can be discharged once all PACU criteria has been met. [facility] 12-23-2024 Note Arterial Line: Date/Time: 12/23/2024 3:13 PM An arterial line was placed in the Procedural Area for the following indication(s): . A (size) (length) (type) catheter was placed, into the Right secured by . Staffing Performed: Other Other staff: Lashell Salas MD [facility] 12-23-2024 Note H&P reviewed. The marie hawley was examined and there are no changes to the H&P. [facility] 12-23-2024 Procedure note CARDIOTHORACIC SURGERY--OPERATIVE NOTE Date: 12/23/24 Preoperative diagnosis: Severe symptomatic aortic stenosis Chronic diastolic congestive heart failure Frailty Postoperative diagnosis: Severe symptomatic aortic stenosis Chronic diastolic congestive heart failure Frailty Surgeon: Tam Cervantes DO Child Center Assistant: Lashell Salas MD Spray Machine Operator: Randal Procedure: Transcatheter aortic valve replacement with 26 mm MAURY S3 valve Transthoracic echocardiogram Complications: None Anesthesia: Local with conscious sedation Indications for procedure: The patient is a 89 year-old male with severe, symptomatic aortic valve stenosis. The case was reviewed in the valve clinic in the valve conference and the patient was deemed a candidate for TAVR. Procedure in detail: The patient was positioned supine on the operating room table. The patient was prepped and draped in usual sterile fashion. Vascular access was gained in the right common femoral artery, right radial artery and right common femoral vein. Systemic heparin 100 mg/kg was given. Please refer to the cardiology dictation for placement of wires and sheaths. Temporary ventricular pacing wire was placed into the right ventricle using fluoroscopic guidance. After determination of the deployment angle the expandable sheath was placed through the right femoral artery. The aortic valve was then crossed using a straight wire. This wire was exchanged for an Amplatz Extra Stiff wire for placement of the prosthesis. The valve was introduced over the wire through the E sheath into the descending thoracic aorta where it was mounted on the balloon. This was then passed across the aortic arch and the aortic valve annulus. The valve was deployed under rapid ventricular pacing. It appeared to be well seated. Echocardiogram confirmed good position, no paravalvular leak, and appropriate gradients. The deployment device was removed. Protamine was then given to reverse the systemic effects of heparin and the patient was subsequently decannulated and transferred stable to the recovery room. She tolerated the procedure well. Disposition: Stable to ICU Tam Cervantes DO [facility] Cardiothoracic Surgery [employer] ezeep Phone: 12-23-2024 Miscellaneous Notes CARDIOTHORACIC SURGERY--OPERATIVE NOTE Date: 12/23/24 Preoperative diagnosis: Severe symptomatic aortic stenosis Chronic diastolic congestive heart failure Frailty Postoperative diagnosis: Severe symptomatic aortic stenosis Chronic diastolic congestive heart failure Frailty Surgeon: Tam Cervantes DO Child Center Assistant: Lashell Salas MD Spray Machine Operator: Randal Procedure: Transcatheter aortic valve replacement with 26 mm MAURY S3 valve Transthoracic echocardiogram Complications: None Anesthesia: Local with conscious sedation Indications for procedure: The patient is a 89 year-old male with severe, symptomatic aortic valve stenosis. The case was reviewed in the valve clinic in the valve conference and the patient was deemed a candidate for TAVR. Procedure in detail: The patient was positioned supine on the operating room table. The patient was prepped and draped in usual sterile fashion. Vascular access was gained in the right common femoral artery, right radial artery and right common femoral vein. Systemic heparin 100 mg/kg was given. Please refer to the cardiology dictation for placement of wires and sheaths. Temporary ventricular pacing wire was placed into the right ventricle using fluoroscopic guidance. After determination of the deployment angle the expandable sheath was placed through the right femoral artery. The aortic valve was then crossed using a straight wire. This wire was exchanged for an Amplatz Extra Stiff wire for placement of the prosthesis. The valve was introduced over the wire through the E sheath into the descending thoracic aorta where it was mounted on the balloon. This was then passed across the aortic arch and the aortic valve annulus. The valve was deployed under rapid ventricular pacing. It appeared to be well seated. Echocardiogram confirmed good position, no paravalvular leak, and appropriate gradients. The deployment device was removed. Protamine was then given to reverse the systemic effects of heparin and the patient was subsequently decannulated and transferred stable to the recovery room. She tolerated the procedure well. Disposition: Stable to ICU Tam Cervantes DO [facility] Cardiothoracic Surgery documented in this encounter [facility] 12-20-2024 History and physical note Images from the original note were not included. Lashell Salas MD Cardiology Severe aortic stenosis Dx Cardiac Valve Problem New Patient ; Referred by Osman Bui Reason for Visit Progress Notes Lashell Salas MD (Physician) Cardiology Expand All Collapse All [facility] [place] [address] [facility] [address] Dept: [phone] Dept Visit type: New : 1935 Reason for Visit: New patient, Heart Valve clinic Assessment and Plan 1. Severe aortic stenosis - CBC auto differential - Comprehensive metabolic panel - CTA Angiogram TAVR - Case Request Lever Tender: Transcatheter aortic valve replacement (TAVR), TRANSCATHETER AORTIC VALVE REPLACEMENT (TAVR) - OR - ECG 12 lead - CLINIC PERFORMED This is a very pleasant 89 y.o. male with severe and symptomatic aortic stenosis. he is in need of aortic valve replacement. Will get a CTA for anatomic planning. If favorable anatomy for transfemoral TAVR, will likely proceed with TAVR. Will pursue TAVR before coronary intervention, as his coronary disease would not increase risk of TAVR, and because is highly likely to be his symptomatic issue, and the most lifelimiting. He could be considered for the COMPLETE TAVR trial for his CAD (staged PCI vs medical therapy after TAVR). We introduced this trial to him, but will rediscuss around the time of his TAVR. This decision was made after multidisciplinary discussion, using a shared decision making strategy. CT surgery also saw patient to aide in discussion. It was a pleasure seeing your patient in the office today. Please do not hesitate to call me with any questions. Follow up in about 1 year (around 11/26/2025). Subjective HPI Alex Carpenter is a very pleasant 89 y.o. male who is here for evaluation of his aorti valve disease. his symptoms include progressive dyspnea on exertion. his most recent echo shows severe aortic stenosis with mean gradient 45mmHg. Cath showed a lesion of a small circumflex (medical management recommended) and a lesion of the RCA that was about 80%. Review of Systems Constitutional: Negative for activity change, chills, diaphoresis, fatigue and fever. HENT: Negative for nosebleeds and trouble swallowing. Eyes: Negative for discharge and visual disturbance. Respiratory: Negative for apnea, cough, chest tightness, shortness of breath and wheezing. Cardiovascular: Positive for leg swelling (bilateral ankle edema new last few months). Negative for chest pain and palpitations. Gastrointestinal: Negative for abdominal distention, abdominal pain, blood in stool, diarrhea, nausea and vomiting. Endocrine: Negative for cold intolerance and heat intolerance. Genitourinary: Negative for hematuria. Musculoskeletal: Positive for arthralgias (knee pain) and gait problem (uses cane; unsteady at times). Negative for myalgias. Skin: Negative for color change and rash. Neurological: Negative for dizziness, seizures, syncope, facial asymmetry, speech difficulty, weakness, light-headedness, numbness and headaches. Hematological: Does not bruise/bleed easily. Psychiatric/Behavioral: Negative for dysphoric mood. [Allergies] [Allergies] Allergen Reactions Lisinopril Cough Other Reaction(s): Cough [Current Medications] [Current Medications] Current Outpatient Medications: aspirin 81 MG EC tablet, Take 81 mg by mouth daily., Disp: , Rfl: atorvastatin (Lipitor) 20 MG tablet, Take 20 mg by mouth., Disp: , Rfl: [id number]-[id number] E PO, [place] 7-Cdj-Dou-Fish Oil (Fish Oil) 300-1,000 mg capsule Active 1 NMA PO DAILY January 24, 2024 1:00am, Disp: , Rfl: furosemide (Lasix) 20 MG tablet, Take 20 mg by mouth daily., Disp: , Rfl: [id number] D PO, Take by mouth., Disp: , Rfl: hydroCHLOROthiazide 12.5 MG tablet, Take 12.5 mg by mouth daily., Disp: , Rfl: losartan (Cozaar) 25 MG tablet, Take 25 mg by mouth daily., Disp: , Rfl: MAGnesium-Oxide 400 (240 Mg) MG tablet, Take 400 mg by mouth daily., Disp: , Rfl: Melatonin 5 MG capsule, 5 mg., Disp: , Rfl: meloxicam (Mobic) 7.5 MG tablet, Take 7.5 mg by mouth daily., Disp: , Rfl: metoprolol tartrate (Lopressor) 25 MG tablet, Take 25 mg by mouth 2 times daily., Disp: , Rfl: nitroglycerin (Nitrostat) 0.4 MG SL tablet, Place 0.4 mg under the tongue every 5 minutes as needed for chest pain., Disp: , Rfl: omega-3 (Fish Oil) 1000 MG capsule, Take 1,000 mg by mouth daily., Disp: , Rfl: oxybutynin XL (Ditropan-XL) 5 MG 24 hr tablet, Take 5 mg by mouth daily., Disp: , Rfl: oxyCODONE-acetaminophen (Percocet) 5-325 MG tablet, TAKE 1/2 TO 1 (ONE-HALF TO ONE) TABLET BY MOUTH THREE TIMES DAILY NEEDED FOR PAIN, Disp: , Rfl: Zoledronic Acid (ZOMETA IV), Infuse into a venous catheter., Disp: , Rfl: [Medical History] [Medical History] Past Medical History Diagnosis Date Coronary artery disease Hyperlipidemia Hypertension Prostate cancer (HCC) Sleep apnea Social History Tobacco Use Smoking status: Never Smokeless tobacco: Never Substance Use Topics Alcohol use: Never [Surgical History] [Surgical History] Past Surgical History Procedure Laterality Date CORONARY STENT PLACEMENT 07/29/2013 IMMANUEL ramus PROSTATECTOMY 1998 [Family History] [Family History] No family history on file. Objective Vitals Vitals: 11/26/24 1411 BP: 114/76 BP Location: Right arm Patient Position: Sitting BP Cuff Size: Adult Pulse: 70 SpO2: 96% Weight: 179 lb (81.2 kg) Height: 5' 6" (1.676 m) Physical Exam Constitutional: General: He is not in acute distress. Appearance: He is not diaphoretic. HENT: Head: Normocephalic. Nose: Nose normal. Mouth/Throat: Mouth: Mucous membranes are moist. Pharynx: No oropharyngeal exudate. Eyes: General: No scleral icterus. Right eye: No discharge. Left eye: No discharge. Neck: Thyroid: No thyromegaly. Vascular: No carotid bruit or JVD. Cardiovascular: Rate and Rhythm: Normal rate and regular rhythm. Pulses: Normal pulses. Heart sounds: Normal heart sounds. Pulmonary: Effort: Pulmonary effort is normal. Breath sounds: Normal breath sounds. Abdominal: General: Bowel sounds are normal. There is no distension. Palpations: There is no hepatomegaly. Tenderness: There is no abdominal tenderness. Musculoskeletal: General: Normal range of motion. Cervical back: Normal range of motion. Right lower leg: No edema. Left lower leg: No edema. Skin: General: Skin is warm and dry. Neurological: Mental Status: He is oriented to person, place, and time. Psychiatric: Mood and Affect: Mood normal. Behavior: Behavior normal. Data Reviewed and Summarized No results found for: "EFBP", "PLVEF", "LVEFPHYS", "LVEF2D", EF Review of tests/labs done/ordered within my specialty: EKG in office: Review of tests/labs done/ordered outside my specialty: Independent interpretation of tests: I personally reviewed the images from Alex Carpenter's most recent TTE and cath in the office today, to help with medical decision making. My interpretation is noted in the HPI section of this note. Lashell Salas MD Cosigned by Lashell Salas MD at 12/27/2024 9:31 PM EDT [facility] 12-20-2024 History and physical note Images from the original note were not included. Lashell Salas MD Cardiology Severe aortic stenosis Dx Cardiac Valve Problem New Patient ; Referred by Osman Bui Reason for Visit Progress Notes Lashell Saals MD (Physician) Cardiology Expand All Collapse All [facility] [place] [address] [place] [address] Dept: [phone] Dept Visit type: New : 1935 Reason for Visit: New patient, Heart Valve clinic Assessment and Plan 1. Severe aortic stenosis - CBC auto differential - Comprehensive metabolic panel - CTA Angiogram TAVR - Case Request Lever Tender: Transcatheter aortic valve replacement (TAVR), TRANSCATHETER AORTIC VALVE REPLACEMENT (TAVR) - OR - ECG 12 lead - CLINIC PERFORMED This is a very pleasant 89 y.o. male with severe and symptomatic aortic stenosis. he is in need of aortic valve replacement. Will get a CTA for anatomic planning. If favorable anatomy for transfemoral TAVR, will likely proceed with TAVR. Will pursue TAVR before coronary intervention, as his coronary disease would not increase risk of TAVR, and because is highly likely to be his symptomatic issue, and the most lifelimiting. He could be considered for the COMPLETE TAVR trial for his CAD (staged PCI vs medical therapy after TAVR). We introduced this trial to him, but will rediscuss around the time of his TAVR. This decision was made after multidisciplinary discussion, using a shared decision making strategy. CT surgery also saw patient to aide in discussion. It was a pleasure seeing your patient in the office today. Please do not hesitate to call me with any questions. Follow up in about 1 year (around 11/26/2025). Subjective HPI Alex Carpenter is a very pleasant 89 y.o. male who is here for evaluation of his aorti valve disease. his symptoms include progressive dyspnea on exertion. his most recent echo shows severe aortic stenosis with mean gradient 45mmHg. Cath showed a lesion of a small circumflex (medical management recommended) and a lesion of the RCA that was about 80%. Review of Systems Constitutional: Negative for activity change, chills, diaphoresis, fatigue and fever. HENT: Negative for nosebleeds and trouble swallowing. Eyes: Negative for discharge and visual disturbance. Respiratory: Negative for apnea, cough, chest tightness, shortness of breath and wheezing. Cardiovascular: Positive for leg swelling (bilateral ankle edema new last few months). Negative for chest pain and palpitations. Gastrointestinal: Negative for abdominal distention, abdominal pain, blood in stool, diarrhea, nausea and vomiting. Endocrine: Negative for cold intolerance and heat intolerance. Genitourinary: Negative for hematuria. Musculoskeletal: Positive for arthralgias (knee pain) and gait problem (uses cane; unsteady at times). Negative for myalgias. Skin: Negative for color change and rash. Neurological: Negative for dizziness, seizures, syncope, facial asymmetry, speech difficulty, weakness, light-headedness, numbness and headaches. Hematological: Does not bruise/bleed easily. Psychiatric/Behavioral: Negative for dysphoric mood. [Allergies] [Allergies] Allergen Reactions Lisinopril Cough Other Reaction(s): Cough [Current Medications] [Current Medications] Current Outpatient Medications: aspirin 81 MG EC tablet, Take 81 mg by mouth daily., Disp: , Rfl: atorvastatin (Lipitor) 20 MG tablet, Take 20 mg by mouth., Disp: , Rfl: TFU-DUL-XYLADXI E PO, [place] 8-Bxk-Ikp-Fish Oil (Fish Oil) 300-1,000 mg capsule Active 1 NMA PO DAILY January 24, 2024 1:00am, Disp: , Rfl: furosemide (Lasix) 20 MG tablet, Take 20 mg by mouth daily., Disp: , Rfl: KQDMAOHEITE-MUIWECH-RWT D PO, Take by mouth., Disp: , Rfl: hydroCHLOROthiazide 12.5 MG tablet, Take 12.5 mg by mouth daily., Disp: , Rfl: losartan (Cozaar) 25 MG tablet, Take 25 mg by mouth daily., Disp: , Rfl: MAGnesium-Oxide 400 (240 Mg) MG tablet, Take 400 mg by mouth daily., Disp: , Rfl: Melatonin 5 MG capsule, 5 mg., Disp: , Rfl: meloxicam (Mobic) 7.5 MG tablet, Take 7.5 mg by mouth daily., Disp: , Rfl: metoprolol tartrate (Lopressor) 25 MG tablet, Take 25 mg by mouth 2 times daily., Disp: , Rfl: nitroglycerin (Nitrostat) 0.4 MG SL tablet, Place 0.4 mg under the tongue every 5 minutes as needed for chest pain., Disp: , Rfl: omega-3 (Fish Oil) 1000 MG capsule, Take 1,000 mg by mouth daily., Disp: , Rfl: oxybutynin XL (Ditropan-XL) 5 MG 24 hr tablet, Take 5 mg by mouth daily., Disp: , Rfl: oxyCODONE-acetaminophen (Percocet) 5-325 MG tablet, TAKE 1/2 TO 1 (ONE-HALF TO ONE) TABLET BY MOUTH THREE TIMES DAILY NEEDED FOR PAIN, Disp: , Rfl: Zoledronic Acid (ZOMETA IV), Infuse into a venous catheter., Disp: , Rfl: [Medical History] [Medical History] Past Medical History Diagnosis Date Coronary artery disease Hyperlipidemia Hypertension Prostate cancer (HCC) Sleep apnea Social History Tobacco Use Smoking status: Never Smokeless tobacco: Never Substance Use Topics Alcohol use: Never [Surgical History] [Surgical History] Past Surgical History Procedure Laterality Date CORONARY STENT PLACEMENT 07/29/2013 IMMANUEL ramus PROSTATECTOMY 1998 [Family History] [Family History] No family history on file. Objective Vitals Vitals: 11/26/24 1411 BP: 114/76 BP Location: Right arm Patient Position: Sitting BP Cuff Size: Adult Pulse: 70 SpO2: 96% Weight: 179 lb (81.2 kg) Height: 5' 6" (1.676 m) Physical Exam Constitutional: General: He is not in acute distress. Appearance: He is not diaphoretic. HENT: Head: Normocephalic. Nose: Nose normal. Mouth/Throat: Mouth: Mucous membranes are moist. Pharynx: No oropharyngeal exudate. Eyes: General: No scleral icterus. Right eye: No discharge. Left eye: No discharge. Neck: Thyroid: No thyromegaly. Vascular: No carotid bruit or JVD. Cardiovascular: Rate and Rhythm: Normal rate and regular rhythm. Pulses: Normal pulses. Heart sounds: Normal heart sounds. Pulmonary: Effort: Pulmonary effort is normal. Breath sounds: Normal breath sounds. Abdominal: General: Bowel sounds are normal. There is no distension. Palpations: There is no hepatomegaly. Tenderness: There is no abdominal tenderness. Musculoskeletal: General: Normal range of motion. Cervical back: Normal range of motion. Right lower leg: No edema. Left lower leg: No edema. Skin: General: Skin is warm and dry. Neurological: Mental Status: He is oriented to person, place, and time. Psychiatric: Mood and Affect: Mood normal. Behavior: Behavior normal. Data Reviewed and Summarized No results found for: "EFBP", "PLVEF", "LVEFPHYS", "LVEF2D", EF Review of tests/labs done/ordered within my specialty: EKG in office: Review of tests/labs done/ordered outside my specialty: Independent interpretation of tests: I personally reviewed the images from Alex Carpenter's most recent TTE and cath in the office today, to help with medical decision making. My interpretation is noted in the HPI section of this note. Lashell Salas MD Cosigned by Lashell Salas MD at 12/27/2024 9:31 PM EDT documented in this encounter [facility] 12-20-2024 Note Lashell Salas MD Cardiology Severe aortic stenosis Dx Cardiac Valve Problem New Patient ; Referred by Osman Bui Reason for Visit Progress Notes Lashell Salas MD (Physician) Cardiology Expand All Collapse All [facility] [place] [address] [facility] [address] Dept: [phone] Dept Visit type: New : 1935 Reason for Visit: New patient, Heart Valve clinic Assessment and Plan 1. Severe aortic stenosis - CBC auto differential - Comprehensive metabolic panel - CTA Angiogram TAVR - Case Request Lever Tender: Transcatheter aortic valve replacement (TAVR), TRANSCATHETER AORTIC VALVE REPLACEMENT (TAVR) - OR - ECG 12 lead - CLINIC PERFORMED This is a very pleasant 89 y.o. male with severe and symptomatic aortic stenosis. he is in need of aortic valve replacement. Will get a CTA for anatomic planning. If favorable anatomy for transfemoral TAVR, will likely proceed with TAVR. Will pursue TAVR before coronary intervention, as his coronary disease would not increase risk of TAVR, and because is highly likely to be his symptomatic issue, and the most lifelimiting. He could be considered for the COMPLETE TAVR trial for his CAD (staged PCI vs medical therapy after TAVR). We introduced this trial to him, but will rediscuss around the time of his TAVR. This decision was made after multidisciplinary discussion, using a shared decision making strategy. CT surgery also saw patient to aide in discussion. It was a pleasure seeing your patient in the office today. Please do not hesitate to call me with any questions. Follow up in about 1 year (around 11/26/2025). Subjective HPI Alex Carpenter is a very pleasant 89 y.o. male who is here for evaluation of his aorti valve disease. his symptoms include progressive dyspnea on exertion. his most recent echo shows severe aortic stenosis with mean gradient 45mmHg. Cath showed a lesion of a small circumflex (medical management recommended) and a lesion of the RCA that was about 80%. Review of Systems Constitutional: Negative for activity change, chills, diaphoresis, fatigue and fever. HENT: Negative for nosebleeds and trouble swallowing. Eyes: Negative for discharge and visual disturbance. Respiratory: Negative for apnea, cough, chest tightness, shortness of breath and wheezing. Cardiovascular: Positive for leg swelling (bilateral ankle edema new last few months). Negative for chest pain and palpitations. Gastrointestinal: Negative for abdominal distention, abdominal pain, blood in stool, diarrhea, nausea and vomiting. Endocrine: Negative for cold intolerance and heat intolerance. Genitourinary: Negative for hematuria. Musculoskeletal: Positive for arthralgias (knee pain) and gait problem (uses cane; unsteady at times). Negative for myalgias. Skin: Negative for color change and rash. Neurological: Negative for dizziness, seizures, syncope, facial asymmetry, speech difficulty, weakness, light-headedness, numbness and headaches. Hematological: Does not bruise/bleed easily. Psychiatric/Behavioral: Negative for dysphoric mood. [Allergies] [Allergies] Allergen Reactions Lisinopril Cough Other Reaction(s): Cough [Current Medications] [Current Medications] Current Outpatient Medications: aspirin 81 MG EC tablet, Take 81 mg by mouth daily., Disp: , Rfl: atorvastatin (Lipitor) 20 MG tablet, Take 20 mg by mouth., Disp: , Rfl: [id number]-HDXKLRC E PO, [place] 0-Fmj-Uqb-Fish Oil (Fish Oil) 300-1,000 mg capsule Active 1 NMA PO DAILY January 24, 2024 1:00am, Disp: , Rfl: furosemide (Lasix) 20 MG tablet, Take 20 mg by mouth daily., Disp: , Rfl: [id number]-DQM D PO, Take by mouth., Disp: , Rfl: hydroCHLOROthiazide 12.5 MG tablet, Take 12.5 mg by mouth daily., Disp: , Rfl: losartan (Cozaar) 25 MG tablet, Take 25 mg by mouth daily., Disp: , Rfl: MAGnesium-Oxide 400 (240 Mg) MG tablet, Take 400 mg by mouth daily., Disp: , Rfl: Melatonin 5 MG capsule, 5 mg., Disp: , Rfl: meloxicam (Mobic) 7.5 MG tablet, Take 7.5 mg by mouth daily., Disp: , Rfl: metoprolol tartrate (Lopressor) 25 MG tablet, Take 25 mg by mouth 2 times daily., Disp: , Rfl: nitroglycerin (Nitrostat) 0.4 MG SL tablet, Place 0.4 mg under the tongue every 5 minutes as needed for chest pain., Disp: , Rfl: omega-3 (Fish Oil) 1000 MG capsule, Take 1,000 mg by mouth daily., Disp: , Rfl: oxybutynin XL (Ditropan-XL) 5 MG 24 hr tablet, Take 5 mg by mouth daily., Disp: , Rfl: oxyCODONE-acetaminophen (Percocet) 5-325 MG tablet, TAKE 1/2 TO 1 (ONE-HALF TO ONE) TABLET BY MOUTH THREE TIMES DAILY NEEDED FOR PAIN, Disp: , Rfl: Zoledronic Acid (ZOMETA IV), Infuse into a venous catheter., Disp: , Rfl: [Medical History] [Medical History] Past Medical History Diagnosis Date Coronary artery disease Hyperlipidemia Hypertension Prostate cancer (HCC) Sleep apnea Social History Tobacco Use Smoking status: [place] (more content not included)... [facility] 12-20-2024 Note Lashell Salas MD Cardiology Severe aortic stenosis Dx Cardiac Valve Problem New Patient ; Referred by Osman Bui Reason for Visit Progress Notes Lashell Salas MD (Physician) Cardiology Expand All Collapse All [facility] [place] [address] [place] [address] Dept: [phone] Dept Visit type: New : 1935 Reason for Visit: New patient, Heart Valve clinic Assessment and Plan 1. Severe aortic stenosis - CBC auto differential - Comprehensive metabolic panel - CTA Angiogram TAVR - Case Request Lever Tender: Transcatheter aortic valve replacement (TAVR), TRANSCATHETER AORTIC VALVE REPLACEMENT (TAVR) - OR - ECG 12 lead - CLINIC PERFORMED This is a very pleasant 89 y.o. male with severe and symptomatic aortic stenosis. he is in need of aortic valve replacement. Will get a CTA for anatomic planning. If favorable anatomy for transfemoral TAVR, will likely proceed with TAVR. Will pursue TAVR before coronary intervention, as his coronary disease would not increase risk of TAVR, and because is highly likely to be his symptomatic issue, and the most lifelimiting. He could be considered for the COMPLETE TAVR trial for his CAD (staged PCI vs medical therapy after TAVR). We introduced this trial to him, but will rediscuss around the time of his TAVR. This decision was made after multidisciplinary discussion, using a shared decision making strategy. CT surgery also saw patient to aide in discussion. It was a pleasure seeing your patient in the office today. Please do not hesitate to call me with any questions. Follow up in about 1 year (around 11/26/2025). Subjective HPI Alex Carpenter is a very pleasant 89 y.o. male who is here for evaluation of his aorti valve disease. his symptoms include progressive dyspnea on exertion. his most recent echo shows severe aortic stenosis with mean gradient 45mmHg. Cath showed a lesion of a small circumflex (medical management recommended) and a lesion of the RCA that was about 80%. Review of Systems Constitutional: Negative for activity change, chills, diaphoresis, fatigue and fever. HENT: Negative for nosebleeds and trouble swallowing. Eyes: Negative for discharge and visual disturbance. Respiratory: Negative for apnea, cough, chest tightness, shortness of breath and wheezing. Cardiovascular: Positive for leg swelling (bilateral ankle edema new last few months). Negative for chest pain and palpitations. Gastrointestinal: Negative for abdominal distention, abdominal pain, blood in stool, diarrhea, nausea and vomiting. Endocrine: Negative for cold intolerance and heat intolerance. Genitourinary: Negative for hematuria. Musculoskeletal: Positive for arthralgias (knee pain) and gait problem (uses cane; unsteady at times). Negative for myalgias. Skin: Negative for color change and rash. Neurological: Negative for dizziness, seizures, syncope, facial asymmetry, speech difficulty, weakness, light-headedness, numbness and headaches. Hematological: Does not bruise/bleed easily. Psychiatric/Behavioral: Negative for dysphoric mood. [Allergies] [Allergies] Allergen Reactions Lisinopril Cough Other Reaction(s): Cough [Current Medications] [Current Medications] Current Outpatient Medications: aspirin 81 MG EC tablet, Take 81 mg by mouth daily., Disp: , Rfl: atorvastatin (Lipitor) 20 MG tablet, Take 20 mg by mouth., Disp: , Rfl: DZR-YFI-ECOMESD E PO, [place] 3-Htq-Pdt-Fish Oil (Fish Oil) 300-1,000 mg capsule Active 1 NMA PO DAILY January 24, 2024 1:00am, Disp: , Rfl: furosemide (Lasix) 20 MG tablet, Take 20 mg by mouth daily., Disp: , Rfl: MWLKHYMCSIG-PDWJOIL-UTN D PO, Take by mouth., Disp: , Rfl: hydroCHLOROthiazide 12.5 MG tablet, Take 12.5 mg by mouth daily., Disp: , Rfl: losartan (Cozaar) 25 MG tablet, Take 25 mg by mouth daily., Disp: , Rfl: MAGnesium-Oxide 400 (240 Mg) MG tablet, Take 400 mg by mouth daily., Disp: , Rfl: Melatonin 5 MG capsule, 5 mg., Disp: , Rfl: meloxicam (Mobic) 7.5 MG tablet, Take 7.5 mg by mouth daily., Disp: , Rfl: metoprolol tartrate (Lopressor) 25 MG tablet, Take 25 mg by mouth 2 times daily., Disp: , Rfl: nitroglycerin (Nitrostat) 0.4 MG SL tablet, Place 0.4 mg under the tongue every 5 minutes as needed for chest pain., Disp: , Rfl: omega-3 (Fish Oil) 1000 MG capsule, Take 1,000 mg by mouth daily., Disp: , Rfl: oxybutynin XL (Ditropan-XL) 5 MG 24 hr tablet, Take 5 mg by mouth daily., Disp: , Rfl: oxyCODONE-acetaminophen (Percocet) 5-325 MG tablet, TAKE 1/2 TO 1 (ONE-HALF TO ONE) TABLET BY MOUTH THREE TIMES DAILY NEEDED FOR PAIN, Disp: , Rfl: Zoledronic Acid (ZOMETA IV), Infuse into a venous catheter., Disp: , Rfl: [Medical History] [Medical History] Past Medical History Diagnosis Date Coronary artery disease Hyperlipidemia Hypertension Prostate cancer (HCC) Sleep apnea Social History Tobacco Use Smoking status: [place] (more content not included)... [facility] 12-20-2024 Note Patient: Alex irwin Procedure Information Date/Time: 12/23/24 1400 Procedures: TRANSCATHETER AORTIC VALVE REPLACEMENT, TRANSTHORACIC ECHOCARDIOGRAM TRANSCATHETER AORTIC VALVE REPLACEMENT, TRANSTHORACIC ECHOCARDIOGRAM (Chest) Location: [facility] Operating Room Surgeons: Lashell Salas MD; Otto Morales MD Relevant Problems Cardio (+) Hyperlipidemia (+) Hypertension (+) Presence of stent in coronary artery (+) Severe aortic stenosis Past Medical History: Past Medical History: No date: Coronary artery disease No date: Hyperlipidemia No date: Hypertension No date: Prostate cancer (HCC) No date: Sleep apnea Past Surgical History: Past Surgical History: 07/29/2013: CORONARY STENT PLACEMENT Comment: IMMANUEL almodovar 1998: PROSTATECTOMY Social History: TOBACCO: reports that he has never smoked. He has never used smokeless tobacco. ETOH: reports no history of alcohol use. Social History Substance and Sexual Activity Drug Use Never Family History: Family History[1] Screening: unknown Clinical information reviewed: Physical Exam Airway Mallampati: IV TM distance: >3 FB Neck ROM: full Mouth Open: normal Cardiovascular Dental (+) edentulous, Upper Dentures, Lower Dentures Pulmonary Abdominal Anesthesia Plan Any family history or previous problems with anesthesia no We discussed risks, benefits, alternatives and likelihood of success with the Patient. ASA 4 MAC Any family history or previous problems with anesthesia noUse of blood products discussed with who consented to blood products. The patient is not a current smoker. patient is NPO appropriate Anesthesia Shah Considerations S/p IMMANUEL (2013) Normal stress test 08/2024 SHAMAR Screening Labs: Lab Results Component Value Date WBC 7.9 12/12/2024 HGB 11.9 (L) 12/12/2024 HCT 37.5 (L) 12/12/2024 MCV 97.7 12/12/2024 PLT 216 12/12/2024 Lab Results Component Value Date NA 139 12/12/2024 K 4.8 12/12/2024 CL 106 12/12/2024 CO2 27 12/12/2024 BUN 23 12/12/2024 CREATININE 0.94 12/12/2024 GLUCOSE 97 12/12/2024 CALCIUM 8.6 (L) 12/12/2024 PROT 5.5 (L) 12/12/2024 ALKPHOS 75 12/12/2024 AST 22 12/12/2024 ALT 9 12/12/2024 EGFR 78.0 12/12/2024 No echocardiogram results found for the past 14 days ECHO: 08/20/24 EF 65% and severe aortic valve stenosis with peak/mean gradients 79/45 mm Hg 11/26/24 ECG 12-LEAD 12/03/2024 6:09 AM (Final) Narrative Sinus Rhythm -Nonspecific QRS widening. -Old inferior infarct. -Nonspecific ST depression + Nonspecific T-abnormality -Nondiagnostic. Signed by: Lashell Salas MD on 12/03/2024 6:09 AM CORONARY ANGIOGRAPHY: 10/09/24: Recommendation: TAVR eval and possible PCI to the right coronary artery. Equipment Requests: Additional Equipment Requests Vascular Equipment: arterial line kit, syringe pumps and single transducer [1] No family history on file. [facility] 12-19-2024 Note Pre TAVR phone call placed. Reviewed, procedure, instructions and meds. Pt verbalizes understanding. Pt knows to call [phone] with any concerns. 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 Salas 2nd surgeon: Dr. Cervantes Admission type: To be admitted Anesthesia: MAC Completed: H&P/EKG/CMP/CBC/CXR/CTA Date completed: 12/12/24 Additional orders Will need T&S AM of procedure [facility] 12-19-2024 Telephone encounter Note Pre TAVR phone call placed. Reviewed, procedure, instructions and meds. Pt verbalizes understanding. Pt knows to call [phone] with any concerns. 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 Salas 2nd surgeon: Dr. Cervantes Admission type: To be admitted Anesthesia: MAC Completed: H&P/EKG/CMP/CBC/CXR/CTA Date completed: 12/12/24 Additional orders Will need T&S AM of procedure T [facility] 12-10-2024 Telephone encounter Note Approved [id number] 12/23-12/24/24 Scanned in under Media Calendars updated and requested on [employer] [facility] 12-05-2024 [place] [id number] pending on Availity # [id number] T [facility] 11-27-2024 Telephone encounter Note Received notification, okay to add 5th TAVR case on for 12/23. Patient scheduled for CTA on 12/12/24, reviewed fasting 4 hours prior and oral hydration protocol. Verbalized understanding. CMP completed 11/12/24. TAVR procedure, instructions reviewed with pt and family. Patient scheduled for TAVR on 12/23/24 at 2:30 pm Will report to [facility] by 12:30 pm Can [address] in the [employer] or use [employer] parking at the [facility] [place] entrance Plan on overnight stay in the hospital Will not be able to drive for 1 week after procedure Will receive moderate sedation through the IV, will be relaxed but awake during the procedure Nothing to eat or drink after midnight Instructed to take morning medications including ASA as prescribed with small sip of water EXCEPT to HOLD furosemide/HCTZ/vitamins/supplem ents morning of surgery Will call with any questions/concerns Pre-op testing done 12/12/24 Patient/family verbalized understanding. [facility] 11-26-2024 Note Dx: Procedure: TAVR Date/Time: 12/23/24 at [facility] Surgeon: PB Location: [facility] Admission: [facility] Anesthesia: MAC CTA sched 12/12/24 at 11:00a. We are waiting to see if we can add on a 5th case so time is tentative pending that. I went ahead and printed ins card to start auth. [facility] 11-26-2024 Telephone encounter Note Dx: Procedure: TAVR Date/Time: 12/23/24 at [facility] Surgeon: PB Location: [facility] Admission: [facility] Anesthesia: MAC CTA sched 12/12/24 at 11:00a. We are waiting to see if we can add on a 5th case so time is tentative pending that. I went ahead and printed ins card to start auth. [facility] 11-26-2024 History of Presen t illness Narrative Images from the original note were not included. [facility] [place] [address] [facility] [address] Dept: [phone] Dept Visit type: New : 1935 Reason for Visit: New patient, Heart Valve clinic Assessment and Plan 1. Severe aortic stenosis - CBC auto differential - Comprehensive metabolic panel - CTA Angiogram TAVR - Case Request Lever Tender: Transcatheter aortic valve replacement (TAVR), TRANSCATHETER AORTIC VALVE REPLACEMENT (TAVR) - OR - ECG 12 lead - CLINIC PERFORMED This is a very pleasant 89 y.o. male with severe and symptomatic aortic stenosis. he is in need of aortic valve replacement. Will get a CTA for anatomic planning. If favorable anatomy for transfemoral TAVR, will likely proceed with TAVR. Will pursue TAVR before coronary intervention, as his coronary disease would not increase risk of TAVR, and because is highly likely to be his symptomatic issue, and the most lifelimiting. He could be considered for the COMPLETE TAVR trial for his CAD (staged PCI vs medical therapy after TAVR). We introduced this trial to him, but will rediscuss around the time of his TAVR. This decision was made after multidisciplinary discussion, using a shared decision making strategy. CT surgery also saw patient to aide in discussion. It was a pleasure seeing your patient in the office today. Please do not hesitate to call me with any questions. Follow up in about 1 year (around 11/26/2025). Subjective HPI Alex Carpenter is a very pleasant 89 y.o. male who is here for evaluation of his aorti valve disease. his symptoms include progressive dyspnea on exertion. his most recent echo shows severe aortic stenosis with mean gradient 45mmHg. Cath showed a lesion of a small circumflex (medical management recommended) and a lesion of the RCA that was about 80%. Review of Systems Constitutional: Negative for activity change, chills, diaphoresis, fatigue and fever. HENT: Negative for nosebleeds and trouble swallowing. Eyes: Negative for discharge and visual disturbance. Respiratory: Negative for apnea, cough, chest tightness, shortness of breath and wheezing. Cardiovascular: Positive for leg swelling (bilateral ankle edema new last few months). Negative for chest pain and palpitations. Gastrointestinal: Negative for abdominal distention, abdominal pain, blood in stool, diarrhea, nausea and vomiting. Endocrine: Negative for cold intolerance and heat intolerance. Genitourinary: Negative for hematuria. Musculoskeletal: Positive for arthralgias (knee pain) and gait problem (uses cane; unsteady at times). Negative for myalgias. Skin: Negative for color change and rash. Neurological: Negative for dizziness, seizures, syncope, facial asymmetry, speech difficulty, weakness, light-headedness, numbness and headaches. Hematological: Does not bruise/bleed easily. Psychiatric/Behavioral: Negative for dysphoric mood. Allergies[1] Current Medications[2] Medical History[3] Social History Tobacco Use Smoking status: Never Smokeless tobacco: Never Substance Use Topics Alcohol use: Never Surgical History[4] Family History[5] Objective Vitals: 11/26/24 1411 BP: 114/76 BP Location: Right arm Patient Position: Sitting BP Cuff Size: Adult Pulse: 70 SpO2: 96% Weight: 179 lb (81.2 kg) Height: 5' 6" (1.676 m) Physical Exam Constitutional: General: He is not in acute distress. Appearance: He is not diaphoretic. HENT: Head: Normocephalic. Nose: Nose normal. Mouth/Throat: Mouth: Mucous membranes are moist. Pharynx: No oropharyngeal exudate. Eyes: General: No scleral icterus. Right eye: No discharge. Left eye: No discharge. Neck: Thyroid: No thyromegaly. Vascular: No carotid bruit or JVD. Cardiovascular: Rate and Rhythm: Normal rate and regular rhythm. Pulses: Normal pulses. Heart sounds: Normal heart sounds. Pulmonary: Effort: Pulmonary effort is normal. Breath sounds: Normal breath sounds. Abdominal: General: Bowel sounds are normal. There is no distension. Palpations: There is no hepatomegaly. Tenderness: There is no abdominal tenderness. Musculoskeletal: General: Normal range of motion. Cervical back: Normal range of motion. Right lower leg: No edema. Left lower leg: No edema. Skin: General: Skin is warm and dry. Neurological: Mental Status: He is oriented to person, place, and time. Psychiatric: Mood and Affect: Mood normal. Behavior: Behavior normal. Data Reviewed and Summarized No results found for: "EFBP", "PLVEF", "LVEFPHYS", "LVEF2D", EF Review of tests/labs done/ordered within my specialty: EKG in office: Review of tests/labs done/ordered outside my specialty: Independent interpretation of tests: I personally reviewed the images from Alex Greycarla's most recent TTE and cath in the office today, to help with medical decision making. My interpretation is noted in the HPI section of this note. Lashell Salas MD NYHA Class (1-4): I STS score: 3.86% 5 meter gait speed in seconds: Ao valve disease etiology (degenerative, rheumatic, endocarditis, other): degenerative [1] Allergies Allergen Reactions Lisinopril Cough Other Reaction(s): Cough [2] Current Outpatient Medications: aspirin 81 MG EC tablet, Take 81 mg by mouth daily., Disp: , Rfl: atorvastatin (Lipitor) 20 MG tablet, Take 20 mg by mouth., Disp: , Rfl: JNM-PLP-DCMEVXF E PO, [place] 6-Jjz-Vql-Fish Oil (Fish Oil) 300-1,000 mg capsule Active 1 NMA PO DAILY January 24, 2024 1:00am, Disp: , Rfl: furosemide (Lasix) 20 MG tablet, Take 20 mg by mouth daily., Disp: , Rfl: HKLTLXNJAKL-HFBQUJR-VGF D PO, Take by mouth., Disp: , Rfl: hydroCHLOROthiazide 12.5 MG tablet, Take 12.5 mg by mouth daily., Disp: , Rfl: losartan (Cozaar) 25 MG tablet, Take 25 mg by mouth daily., Disp: , Rfl: MAGnesium-Oxide 400 (240 Mg) MG tablet, Take 400 mg by mouth daily., Disp: , Rfl: Melatonin 5 MG capsule, 5 mg., Disp: , Rfl: meloxicam (Mobic) 7.5 MG tablet, Take 7.5 mg by mouth daily., Disp: , Rfl: metoprolol tartrate (Lopressor) 25 MG tablet, Take 25 mg by mouth 2 times daily., Disp: , Rfl: nitroglycerin (Nitrostat) 0.4 MG SL tablet, Place 0.4 mg under the tongue every 5 minutes as needed for chest pain., Disp: , Rfl: omega-3 (Fish Oil) 1000 MG capsule, Take 1,000 mg by mouth daily., Disp: , Rfl: oxybutynin XL (Ditropan-XL) 5 MG 24 hr tablet, Take 5 mg by mouth daily., Disp: , Rfl: oxyCODONE-acetaminophen (Percocet) 5-325 MG tablet, TAKE 1/2 TO 1 (ONE-HALF TO ONE) TABLET BY MOUTH THREE TIMES DAILY NEEDED FOR PAIN, Disp: , Rfl: Zoledronic Acid (ZOMETA IV), Infuse into a venous catheter., Disp: , Rfl: [3] Past Medical History: Diagnosis Date Coronary artery disease Hyperlipidemia Hypertension Prostate cancer (HCC) Sleep apnea [4] Past Surgical History: Procedure Laterality Date CORONARY STENT PLACEMENT 07/29/2013 IMMANUEL ramus PROSTATECTOMY 1998 [5] No family history on file. documented in this encounter [facility] 11-26-2024 History of Presen t illness Narrative Images from the original note were not included. [facility] [place] [address] [place] [address] Dept: [phone] Dept Visit type: New : 1935 Reason for Visit: New patient, Heart Valve clinic Assessment and Plan 1. Severe aortic stenosis - CBC auto differential - Comprehensive metabolic panel - CTA Angiogram TAVR - Case Request Lever Tender: Transcatheter aortic valve replacement (TAVR), TRANSCATHETER AORTIC VALVE REPLACEMENT (TAVR) - OR - ECG 12 lead - CLINIC PERFORMED This is a very pleasant 89 y.o. male with severe and symptomatic aortic stenosis. he is in need of aortic valve replacement. Will get a CTA for anatomic planning. If favorable anatomy for transfemoral TAVR, will likely proceed with TAVR. Will pursue TAVR before coronary intervention, as his coronary disease would not increase risk of TAVR, and because is highly likely to be his symptomatic issue, and the most lifelimiting. He could be considered for the COMPLETE TAVR trial for his CAD (staged PCI vs medical therapy after TAVR). We introduced this trial to him, but will rediscuss around the time of his TAVR. This decision was made after multidisciplinary discussion, using a shared decision making strategy. CT surgery also saw patient to aide in discussion. It was a pleasure seeing your patient in the office today. Please do not hesitate to call me with any questions. Follow up in about 1 year (around 11/26/2025). Subjective HPI Alex Carpenter is a very pleasant 89 y.o. male who is here for evaluation of his aorti valve disease. his symptoms include progressive dyspnea on exertion. his most recent echo shows severe aortic stenosis with mean gradient 45mmHg. Cath showed a lesion of a small circumflex (medical management recommended) and a lesion of the RCA that was about 80%. Review of Systems Constitutional: Negative for activity change, chills, diaphoresis, fatigue and fever. HENT: Negative for nosebleeds and trouble swallowing. Eyes: Negative for discharge and visual disturbance. Respiratory: Negative for apnea, cough, chest tightness, shortness of breath and wheezing. Cardiovascular: Positive for leg swelling (bilateral ankle edema new last few months). Negative for chest pain and palpitations. Gastrointestinal: Negative for abdominal distention, abdominal pain, blood in stool, diarrhea, nausea and vomiting. Endocrine: Negative for cold intolerance and heat intolerance. Genitourinary: Negative for hematuria. Musculoskeletal: Positive for arthralgias (knee pain) and gait problem (uses cane; unsteady at times). Negative for myalgias. Skin: Negative for color change and rash. Neurological: Negative for dizziness, seizures, syncope, facial asymmetry, speech difficulty, weakness, light-headedness, numbness and headaches. Hematological: Does not bruise/bleed easily. Psychiatric/Behavioral: Negative for dysphoric mood. Allergies[1] Current Medications[2] Medical History[3] Social History Tobacco Use Smoking status: Never Smokeless tobacco: Never Substance Use Topics Alcohol use: Never Surgical History[4] Family History[5] Objective Vitals: 11/26/24 1411 BP: 114/76 BP Location: Right arm Patient Position: Sitting BP Cuff Size: Adult Pulse: 70 SpO2: 96% Weight: 179 lb (81.2 kg) Height: 5' 6" (1.676 m) Physical Exam Constitutional: General: He is not in acute distress. Appearance: He is not diaphoretic. HENT: Head: Normocephalic. Nose: Nose normal. Mouth/Throat: Mouth: Mucous membranes are moist. Pharynx: No oropharyngeal exudate. Eyes: General: No scleral icterus. Right eye: No discharge. Left eye: No discharge. Neck: Thyroid: No thyromegaly. Vascular: No carotid bruit or JVD. Cardiovascular: Rate and Rhythm: Normal rate and regular rhythm. Pulses: Normal pulses. Heart sounds: Normal heart sounds. Pulmonary: Effort: Pulmonary effort is normal. Breath sounds: Normal breath sounds. Abdominal: General: Bowel sounds are normal. There is no distension. Palpations: There is no hepatomegaly. Tenderness: There is no abdominal tenderness. Musculoskeletal: General: Normal range of motion. Cervical back: Normal range of motion. Right lower leg: No edema. Left lower leg: No edema. Skin: General: Skin is warm and dry. Neurological: Mental Status: He is oriented to person, place, and time. Psychiatric: Mood and Affect: Mood normal. Behavior: Behavior normal. Data Reviewed and Summarized No results found for: "EFBP", "PLVEF", "LVEFPHYS", "LVEF2D", EF Review of tests/labs done/ordered within my specialty: EKG in office: Review of tests/labs done/ordered outside my specialty: Independent interpretation of tests: I personally reviewed the images from Alex Carpenter's most recent TTE and cath in the office today, to help with medical decision making. My interpretation is noted in the HPI section of this note. Lashell Salas MD NYHA Class (1-4): I STS score: 3.86% 5 meter gait speed in seconds: Ao valve disease etiology (degenerative, rheumatic, endocarditis, other): degenerative [1] Allergies Allergen Reactions Lisinopril Cough Other Reaction(s): Cough [2] Current Outpatient Medications: aspirin 81 MG EC tablet, Take 81 mg by mouth daily., Disp: , Rfl: atorvastatin (Lipitor) 20 MG tablet, Take 20 mg by mouth., Disp: , Rfl: XHL-WJG-DYUKMGE E PO, [place] 7-Pzr-Xdo-Fish Oil (Fish Oil) 300-1,000 mg capsule Active 1 NMA PO DAILY January 24, 2024 1:00am, Disp: , Rfl: furosemide (Lasix) 20 MG tablet, Take 20 mg by mouth daily., Disp: , Rfl: PFTIUOCISXB-MEGVRZJ-IRY D PO, Take by mouth., Disp: , Rfl: hydroCHLOROthiazide 12.5 MG tablet, Take 12.5 mg by mouth daily., Disp: , Rfl: losartan (Cozaar) 25 MG tablet, Take 25 mg by mouth daily., Disp: , Rfl: MAGnesium-Oxide 400 (240 Mg) MG tablet, Take 400 mg by mouth daily., Disp: , Rfl: Melatonin 5 MG capsule, 5 mg., Disp: , Rfl: meloxicam (Mobic) 7.5 MG tablet, Take 7.5 mg by mouth daily., Disp: , Rfl: metoprolol tartrate (Lopressor) 25 MG tablet, Take 25 mg by mouth 2 times daily., Disp: , Rfl: nitroglycerin (Nitrostat) 0.4 MG SL tablet, Place 0.4 mg under the tongue every 5 minutes as needed for chest pain., Disp: , Rfl: omega-3 (Fish Oil) 1000 MG capsule, Take 1,000 mg by mouth daily., Disp: , Rfl: oxybutynin XL (Ditropan-XL) 5 MG 24 hr tablet, Take 5 mg by mouth daily., Disp: , Rfl: oxyCODONE-acetaminophen (Percocet) 5-325 MG tablet, TAKE 1/2 TO 1 (ONE-HALF TO ONE) TABLET BY MOUTH THREE TIMES DAILY NEEDED FOR PAIN, Disp: , Rfl: Zoledronic Acid (ZOMETA IV), Infuse into a venous catheter., Disp: , Rfl: [3] Past Medical History: Diagnosis Date Coronary artery disease Hyperlipidemia Hypertension Prostate cancer (HCC) Sleep apnea [4] Past Surgical History: Procedure Laterality Date CORONARY STENT PLACEMENT 07/29/2013 IMMANUEL ramus PROSTATECTOMY 1998 [5] No family history on file. documented in this encounter [facility] 11-12-2024 Note HNO ID: [id number] Author: EVERETT ALDRICH MD Service: ? Author Type: Physician Type: Progress Notes Filed: 11/12/2024 14:05 Note Text: (Elements copied from my note dated May 28, 2024, have been reviewed and updated where appropriate, and all reflect current assessment and medical decision making from today's encounter, November 12, 2024) HISTORY OF PRESENT ILLNESS: Alex Carpenter is a 89 year old male diagnosed with prostate cancer in 1998, status post radical prostatectomy for [place] score 6 = 3+3. He had been [...] Lupron every 3 months. 2) Zometa every 3 months Interim history: Doing well. Left knee [...] CURRENT OUTPATIENT MEDICATIONS: oxyCODONE-acetaminophen (PERCOCET) 5-325 mg tablet Take 1 tablet by mouth every 6 hours as needed. losartan (COZAAR) 25 mg tablet Take 25 mg by mouth once daily. calcium citrate/vitamin D3 (CALCIUM CITRATE + D ORAL) Take 1 tablet by mouth two times a day. magnesium hydroxide (MAGNESIA ORAL) Take 400 mg by mouth once daily as needed (constipation). (Patient taking differently: Take 400 mg by mouth once daily.) POTASSIUM-99 ORAL Take 1 tablet by mouth once daily. hydroCHLOROthiazide (HYDRODIURIL, ESIDRIX) 12.5 mg capsule Take 12.5 mg by mouth once daily. metoprolol tartrate, short acting, (LOPRESSOR) 50 mg tablet Take 25 mg by mouth two times a day. atorvastatin 40 mg tablet Take 20 mg by mouth once daily. aspirin, enteric coated 81 mg EC tablet Take 81 mg by mouth once daily. GLUCOSAM/MSM/CHONDR/VIT C/HYAL (ZUWSJGNIWMK-RDJFXWIHIPX-URZ ORAL) Take 1 tablet by mouth two times a day. nitroglycerin sublingual (NITROQUICK) 0.4 mg SL tablet Dissolve 0.4 mg under the tongue every 5 minutes as needed. ergocalciferol, vitamin D2, (VITAMIN D2 ORAL) Take by mouth. (Patient not taking: Reported on 08/20/2024) ergocalciferol 50,000 unit capsule (VITAMIN D2, DRISDOL) Take 1 capsule by mouth one time a week. (Patient not taking: Reported on 11/12/2024) oxybutynin XL (DITROPAN XL) 5 mg 24 hr tablet Take 1 tablet by mouth once daily. (Patient not taking: Reported on 08/20/2024) OTC PRODUCT Take 1,500 mg by mouth two times a day. Lipozene (Patient not taking: Reported on 08/20/2024) meloxicam (MOBIC) 7.5 mg tablet Take 7.5 mg by mouth once daily. (Patient not taking: Reported on 11/12/2024) ubidecarenone (ULTRA COQ10 ORAL) Take by mouth once daily. (Patient not taking: Reported on 11/12/2024) apalutamide (ERLEADA) 60 mg tablet Take 3 tablets (180mg) by mouth once daily. (Patient not taking: Reported on 08/20/2024) losartan (COZAAR) 25 mg tablet Take 25 mg by mouth once andrew (more content not included)... [facility] 11-12-2024 History of Presen t illness Narrative (Elements copied from my note dated May 28, 2024, have been reviewed and updated where appropriate, and all reflect current assessment and medical decision making from today's encounter, November 12, 2024) HISTORY OF PRESENT ILLNESS: Alex Carpenter is a 89 year old male diagnosed with prostate cancer [...] Lupron every 3 months. 2) Zometa every 3 months Interim history: Doing well. Left knee [...] CURRENT OUTPATIENT MEDICATIONS: oxyCODONE-acetaminophen (PERCOCET) 5-325 mg tablet Take 1 tablet by mouth every 6 hours as needed. losartan (COZAAR) 25 mg tablet Take 25 mg by mouth once daily. calcium citrate/vitamin D3 (CALCIUM CITRATE + D ORAL) Take 1 tablet by mouth two times a day. magnesium hydroxide (MAGNESIA ORAL) Take 400 mg by mouth once daily as needed (constipation). (Patient taking differently: Take 400 mg by mouth once daily.) POTASSIUM-99 ORAL Take 1 tablet by mouth once daily. hydroCHLOROthiazide (HYDRODIURIL, ESIDRIX) 12.5 mg capsule Take 12.5 mg by mouth once daily. metoprolol tartrate, short acting, (LOPRESSOR) 50 mg tablet Take 25 mg by mouth two times a day. atorvastatin 40 mg tablet Take 20 mg by mouth once daily. aspirin, enteric coated 81 mg EC tablet Take 81 mg by mouth once daily. GLUCOSAM/MSM/CHONDR/VIT C/HYAL ([id number]-WSNIPMBWJLY-JYI ORAL) Take 1 tablet by mouth two times a day. nitroglycerin sublingual (NITROQUICK) 0.4 mg SL tablet Dissolve 0.4 mg under the tongue every 5 minutes as needed. ergocalciferol, vitamin D2, (VITAMIN D2 ORAL) Take by mouth. (Patient not taking: Reported on 08/20/2024) ergocalciferol 50,000 unit capsule (VITAMIN D2, DRISDOL) Take 1 capsule by mouth one time a week. (Patient not taking: Reported on 11/12/2024) oxybutynin XL (DITROPAN XL) 5 mg 24 hr tablet Take 1 tablet by mouth once daily. (Patient not taking: Reported on 08/20/2024) OTC PRODUCT Take 1,500 mg by mouth two times a day. Lipozene (Patient not taking: Reported on 08/20/2024) meloxicam (MOBIC) 7.5 mg tablet Take 7.5 mg by mouth once daily. (Patient not taking: Reported on 11/12/2024) ubidecarenone (ULTRA COQ10 ORAL) Take by mouth once daily. (Patient not taking: Reported on 11/12/2024) apalutamide (ERLEADA) 60 mg tablet Take 3 tablets (180mg) by mouth once daily. (Patient not taking: Reported on 08/20/2024) losartan (COZAAR) 25 mg tablet Take 25 mg by mouth once daily. (Patient not taking: Reported on 08/20/2024) Calcium Carbonate-Vitamin D3 600mg (1,000mg) -1,000 unit ORAL Tab Take 1 tablet by mouth once daily. (Patient not taking: Reported on 08/20/2024) Fish Oil-[place]-3 Fatty Acids 500-300 mg ORAL Cap Take 1 capsule by mouth once daily. (Patient not taking: Reported on 11/12/2024) REVIEW OF SYSTEMS: GENERAL: No fever, night sweats, weight loss or malaise. All other reviewed and negative other than HPI. PHYSICAL EXAMINATION: VITAL SIGNS: BP 114/66 Pulse 63 Temp (Src) 97.4 (Temporal) Wt 179 lb 8 oz (81.4kg) SpO2 98% GENERAL APPEARANCE: Well appearing, in no acute distress, alert and oriented x3, well-hydrated, well nourished. I spent a total of 20 minutes on the date of the service which included preparing to see the patient, gjxq-aa-rqti patient care, completing clinical documentation, obtaining and/or reviewing separately obtained history, ordering medications, tests, or procedures, independently interpreting results (not separately reported), and communicating results to the patient/family/caregiver. Electronically Signed: Everett Aldrich MD November 12, 2024 documented in this encounter [facility] 09-29-2024 Progress note [facility] 09-26-2024 Radiology Diagnostic study note [facility] Services [address] [place], [place] [id number] Chest PA and Lateral MR#: [id number] Acct: [id number] Name: ALEX CARPENTER Rep #: [id number] : 1935 M 89 From: Kirby Amaya MD PCP: Dr. Otto Subramanian MD Status: PRE [facility] [place] Study:Chest PA and Lateral Date of Exam: 09/26/24 Exam# [id number] Ordering Dr: Riri Peralta REGISTERED NURSE FIRST ASSISTANT REGISTERED NURSE FIRST ASSISTANT-C PROCEDURE: CHEST PA AND LATERAL 09/26/2024 REASON FOR EXAM: CARDIAC CATH TECHNIQUE: CHEST PA AND LATERAL COMPARISON: None. FINDINGS: The heart is enlarged. Ill-defined opacities of the bilateral lower lobes whichmay represent atelectasis or developing infection. The edema is possible. No pleural effusion or pneumothorax. RAD/Chest PA and Lateral IMPRESSION: Pulmonary findings as above. Reading Location: [id number] CC: VIKRAM Peralta; Dr. Otto Subramanian MD ~ Competitive Intelligence Manager: Signed [facility] 09-26-2024 Evaluation note Diagnosis Onset Date Resolution Carotid artery disease acute September 26, 2024 7:53am Nonrheumatic aortic (valve) stenosis acute September 26, 2024 7:53am Essential hypertension chronic September 26, 2024 7:53am Hyperlipidemia chronic September 26, 2024 7:53am Presence of stent in coronary artery Jul, 2013September 26, 2024 7:53am Left leg cellulitis acute September 29, 2024 9:27am [facility] Work Phone: [phone]) 289-271107-10-2025 Evaluation note* Diagnosis Onset Date Resolution Status Admit Date Carotid artery disease acute 2024 7:53am Nonrheumatic aortic (valve) stenosis acute September 26, 2024 7:53am Essential hypertension chronic 2024 7:53am Hyperlipidemia chronic September 26, 2024 7:53am Presence of stent in coronar y artery Jul, 2013September 26, 2024 7:53am Left leg cellulitis acute September 29, 2024 9:27am Edema acute January 10, 2025 11:10am Nonrheumatic aortic (valve) stenosis acute January 10 11:10am Atherosclerotic heart diseas e of [place] coronary artery without angina pectoris chronic January 10 11:10am Essential hypertension chronic Oc 2024 11:10am Hyperlipidemia chronic January 102024 11:10am S/P TAVR (transcatheter aort ic valve replacement) chronic January 10, 2025 11:10am [facility] Work Phone: 1(306) 318-770906-03-2025 NoteHNO ID: [id number] Author: CRISSY MAI, ? Service: ? Author [...] every 6 months Interim history: Doing ok. "Balance is pretty bad" using rollator today. He is following with [...] Prostate cancer biochemical relapse, bone scan in 2022 suggested bone mets (report is listed in [...] by mouth once daily.Disp: Rfl: GLUCOSAM/MSM/CHONDR/VIT C/HYAL ([id number]-[id number]-MSB ORAL)Take 1 tablet by mouth two times a day.Disp: Rfl: nitroglycerin sublingual (NITROQUICK) 0.4 mg SL tabletDissolve 0.4 mg under the tongue every 5 minutes as needed.Disp: Rfl: Fish Oil-[place]-3 Fatty Acids 500-300 mg ORAL CapTake by [...] by mouth once daily.Disp: (more content not included)...[facility]06-03-2025 History of Present illness Narrative* Crissy Mai - 08/20/2024 12:59 PM EDT Alex Carpenter 1935 08/20/2024 HISTORY OF PRESENT ILLNESS: Alex Carpenter is a 87 year old male diagnosed with prostate cancer in 1998, status post radical prostatectomy for [place] score 6 = 3+3. He had been [...] every 6 months Interim history: Doing ok. "Balance is pretty bad" using rollator today. He is following with neuro, recent referralto spine. Denies new aches or pains. Chronic knee pain L>R. Considering a replacement. Denies new or worsening SOB, CP, or palpitations. No changes in bowel or bladder habits. No rash orskin changes. Denies bleeding or bruising. Denies HF, [...] mg by mouth once daily as needed (constipation).^Disp:^Rfl: (Patient taking differently: Take 400 mg by [...] by mouth once daily.^Disp: ^Rfl: GLUCOSAM/MSM/CHONDR/VIT C/HYAL ([id number]-QXVOCFPOKIA-SNG ORAL)^Take 1 tablet by mouth two times a day.^Disp: ^Rfl: nitroglycerin sublingual (NITROQUICK) 0.4 mg SL tablet^Dissolve 0.4 mg under the tongue every 5 minutes as needed.^Disp: ^Rfl: Fish Oil-[place]-3 Fatty Acids 500-300 mg ORAL Cap^Take by [...] 90 tablet^Rfl:2 (Patient not taking: Reported on 08/20/2024) losartan [...] positives and negatives as outlined in the intervalhistory. PHYSICAL EXAMINATION: VITAL SIGNS: BP 142/82 Pulse 83 Temp (Src) 98.5 (Temporal) Wt 185 lb 8 oz (84.1kg) SpO2 98% GENERAL APPEARANCE: fatigued, in no acute distress, alert and oriented x3, well- hydrated, well nourished. HEART: regular rhythm CHEST: Clear bilaterally EXTREMITIES: no edema. I have performed the physical exam today (08/20/2024) and have edited the note to correlate with current findings. Crissy Mai APRN.ASSISTANT DESIGNER I spent a total of 30 minutes on the date of the service which included preparing to see the patient, [id number]-[id number] patient care, completing clinical documentation, obtaining and/or [...] evaluation of this patient. [facility] Discharge summary Author Otto Shirley [facility] Note Date/Time July 25, 2024 3:56pm [facility] Physical Therapy [facility] [address] [place] [address] / REHABILITATION SERVICES DISCHARGE SUMMARY MR#: [id number] Acct: [id number] Name: DAIALEX E Rep #: [id number] : 1935 88 From: Otto Shirley DPT, DENISE, CSCS Referring Dr.: Dr. Otto Subramanian MD Status: REG RCR Insurance: [employer] [facility] S[employer] PAY [employer]URANCE Patient Information Patient [...] Rise Test Seconds: 8 <Electronically signed by DENISE De Jesus DPT, CSCS> 07/25/24 1556 CC: Dr. Otto Subramanian MD ~ EBG Signed [facility] Work Phone: 1(921) 338-714005-08-2025 Discharge summary [facility] Physical Therapy [address] [place] [address] / REHABILITATION SERVICES DISCHARGE SUMMARY MR#: [id number] Acct: [id number] Name: ALEX CARPENTER Rep #: [id number] : 1935 88 From: Otto Shirley DPT, DENISE, CSCS Referring Dr.: Dr. Otto Subramanian MD Status: REG RCR Insurance: [facility] Patient Information Patient Information: [...] Otto Shirley, DPT, OCS, CSCS Balance/Gait/Functional tests Balance/Special Test Scores Functional Gait Assessment Score: 12 % Disability: 60.0000 CATSIB Score (Max score 120 seconds): 102 Lower Extremity Functional Score: 20 TUG Test Time Seconds: 13 Tug Test: <20 sec.=mostly independent 30 Second Chair Rise Test Seconds: 8 07/25/24 1556 CC: Dr. Otto Subramanian MD ~ EBG Signed [facility]04-10-2025 Evaluation note* Diagnosis Onset Date Resolution Status Admit Date Carotid artery disease acute Ap ril 2024 10:37am Nonrheumatic aortic (valve) stenosis acute June 27, 2024 10:37am Essential hypertension chronic Ap ril 2024 10:37am Hyperlipidemia chronic June 10:37am SHAMAR (obstructive sleep apnea) chroni c June 27, 2024 10:37am Presence of stent in coronar y artery Jul, 2013 chronic June 27, 2024 10:37am [facility] Work Phone: [phone]) 752-693804-10-2025 Evaluation note* Diagnosis Onset Date Resolution Status [...] Jul, 2013 chronic September 26, 2024 7:53am [facility] Work Phone: [phone]) 124-247004-10-2025 Evaluation note* Diagnosis Onset Date Resolution Status [...] leg cellulitis acute September 29, 2024 9:27am [facility] Work Phone: 1([phone]) 596-256604-01-2025 Instructions* Patient Instructions* Leisa Robb PA-C - [...] and <40 for men See spine at [place] for lumbar stenosis [phone] Follow up as needed documented in this encounterLuther[facility]04-[facility]25 NoteHNO ID: [id number] Author: LEISA ROBB PA-C Service: ? Author Type: Physician Automobile Brake Bonder Type: Progress Notes Filed: 06/18/2024 14:43 Note Text: [facility] Name: Alex Carpenter [...] malignancy or chemo (ne (more content not included)...[facility]04-01-2025 History of Present illness Narrative* Leisa Robb PA-C - 06/18/2024 1:32 PM EDT Images from the original note were not included. [facility] Name: Alex Carpenter [...] mg by mouth once daily. GLUCOSAM/MSM/CHONDR/VIT C/HYAL ([id number]-KFHLEDBONUP-OUA ORAL) Take 1 tablet by mouth two times a day. nitroglycerin sublingual 0.3 mg SL tablet Dissolve 0.3 mg under the tongue every 5 minutes as needed. Calcium Carbonate-Vitamin D3 600mg (1,000mg) -1,000 unit ORAL Tab Take 1 tablet by mouth once daily. Fish Oil-[place]-3 Fatty Acids 500-300 mg ORAL Cap Take [...] 4.00 k/uL Monocytes % 7.2 % Abs [place] 1.09 (H) <0.87 k/uL Eosinophils % 0.4 [...] LEFT ICA origin stenosis. Patent intracranial circulation. Competitive Intelligence Manager: BLESSING Transcribe Date/Time: Jun 04 2024 10:48A [...] and assume there are 5 lumbar-type vertebrae. Competitive Intelligence Manager: BLESSING Transcribe Date/Time: Jun 04 2024 11:13A Dictated by : BRITTANIE MURCIA MD This examination was interpreted and the report reviewed and electronically signed by: BRITTANIE MURCIA MD on Jun 04 2024 11:17AM EST This note was dictated using [email or web address] speech recognition software and may contain some [...] which included preparing to see the patient, wujb-le-skok patient care, completing clinical documentation, obtaining and/or reviewing separately obtained history, performing a medically appropriate examination, counseling and educating the pat ient/family/caregiver, and ordering medications, tests, or procedures. documented in this encounterLuther[facility] Hospital03-18-2025 Telephone encounter Note * Telephone Encounter - Guzman Sánchez LPN - 06/04/2024 2:44 PM EDT Called and spoke to patient, advised of message below. Patient verbalized understanding. Patient does not want to go outside [facility] to see specialist. Advised [facility] does have community relations specialist. Patient would like consult placed, once consult placed nurse will fax consult over to [facility]. Patient in agreement with plan. Please place order. Guzman Sánchez LPN June 04, 2024 2:45 PM [facility]03-18-[facility] Miscellaneous Notes* Telephone Encounter - Guzman Sánchez LPN - 06/04/2024 2:44 PM EDT Called and spoke to patient, advised of message below. Patient verbalized understanding. Patient does not want to go outside [facility] to see specialist. Advised [facility] does have community relations specialist. Patient would like consult placed, once consult placed nurse will fax consult over to [facility]. Patient in agreement with plan. 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 Would like pt to see Spine/NSGY. If he agrees, will placereferral. Thank you, Kaushal Stockton MD [facility]03-18-[facility]25 History of Present illness Narrative* Maty [...] PATIENT PRESENTS WITH AN IMPLANTABLE OR ATTACHED HITCH TECHNICIAN: No ALLERGIES: Reviewed and unchanged CONTRAST ALLERGY: NO. EXAM: MRI - CONTRAST TYPE: GROUP II PERIPHERAL IV DATA: Ambulatory: A peripheral IV was started in the Left antecubital site with a Angio cath: 22 gauge. RADIOLOGY DEPARTMENT: MR; Exam(s) Completed: Head: Routine Brain [place] MRA Neck: Carotids MRA, bilateral Spine: Lumbar spine SIGNATURE: LUBA Smith) PATIENT NAME: Alex Carpenter DATE: June 04, 2024 TIME: 9:20 AM documented in this encounterLutheran Hospital03-18-2025 NoteHNO ID: [id number] Author: MATY TRAN RT(R) Service: ? Author [...] PATIENT PRESENTS WITH AN IMPLANTABLE OR ATTACHED HITCH TECHNICIAN: No ALLERGIES: Reviewed and unchanged CONTRAST ALLERGY: NO. EXAM: MRI - CONTRAST TYPE: GROUP II PERIPHERAL IV DATA: Ambulatory: A peripheral IV was started in the Left antecubital site with a Angio cath: 22 gauge. RADIOLOGY DEPARTMENT: MR; Exam(s) Completed: Head: Routine Brain [place] MRA Neck: Carotids MRA, bilateral Spine: Lumbar spine SIGNATURE: RT Luis(R) PATIENT NAME: Alex Carpenter DATE: June 04, 2024 TIME: 9:20 [facility]03-11-2025 NoteHNO ID: [id number] Author: ELIJAH MERCHANT RN Service: ? Author Type: Registered Nurse Type: Progress Notes Filed: 05/28/2024 14:05 Note Text: OV prior to tx. Elijah Merchant RNE[facility]ria [facility]03-11-[facility] History of Present illness Narrative* Elijah Merchant RN - 05/28/2024 1:58 PM EDT OV prior to tx. Elijah Merchant RN documented in this encounterLutheran Hospital03-11-2025 NoteHNO ID: [id number] Author: EVERETT ALDRICH MD Service: ? Author [...] in 1998, status post radical prostatectomy for [place] score 6 = 3+3. He had been [...] mg by mouth once daily. GLUCOSAM/MSM/CHONDR/VIT C/HYAL ([id number]-OFFCCXJLOXJ-ZOH ORAL) Take 1 tablet by mouth two [...] tablets (180mg) by mouth once daily. Fish Oil-[place]-3 Fatty Acids 500-300 mg ORAL Cap Take [...] I spent a tot (more content not included)...[facility]03-11-2025 History of Present illness Narrative* Everett [...] in 1998, status post radical prostatectomy for [place] score 6 = 3+3. He had been [...] mg by mouth once daily. GLUCOSAM/MSM/CHONDR/VIT C/HYAL (QJRRYPRHTOW-KFDANQNOJOH-EDP ORAL) Take 1 tablet by mouth two [...] tablets (180mg) by mouth once daily. Fish Oil-[place]-3 Fatty Acids 500-300 mg ORAL Cap Take [...] which included preparing to see the patient, trgr-vz-nqyn patient care, completing clinical documentation, obtaining and/or reviewing separately obtained history, ordering medications, tests, or procedures, independently interpreting results (not separately reported), and communicating results to the patient/family/caregiver. Electronically Signed: Everett Aldrich MD May 28, 2024 documented in this encounterLutheran Hospital03-07-2025 Telephone encounter Note * Telephone Encounter - Guzman Sánchez LPN - 05/24/2024 1:42 PM EST Request sent Guzman Sánchez LPN May 24, 2024 1:42 PM [facility] Miscellaneous Notes* Telephone Encounter - Guzman Sánchez LPN - 05/24/2024 1:42 PM EST Request sent Guzman Sánchze LPN May 24, 2024 1:42 PM * Telephone Encounter - Renetta Edouard LPN - 05/24/2024 11:55 AM EST Images from the original note were not included. Kaushal Stockton Jr., MD P Wstr [facility] Nurse Please request recent labs including B12, sed rate, TSH, [place], A1c, CMP from PCP office. Thank you. documented in this encounterLuther[facility] Hospital03-07-2025 Telephone encounter Note * Telephone Encounter - Renetta Edouard LPN - 05/24/2024 11:55 AM EST Images from the original note were not included. Kaushal Stockton Jr., MD P Wstr Neur [place] Nurse Please request recent labs including B12, sed rate, TSH, AZ, A1c, CMP from PCP office. Thank you. [facility]03-[facility]-2025 NoteHNO ID: [id number] Author: KAUSHAL STOCKTON JR, MD Service: ? [...] imaging. 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 Pt reports symptoms of balance difficulties started about 1-2 years ago. Pt states he thinks it was due to starting a chemo medication or at least balance issues got worse - med was stopped but still did not improve. Pt states "first of all I got knee problems and they are bone on bone". However does not feel the knees give [...] Value 07/12/2010 6.1 No results found for: "TSH" No results found for: "B12" No tremors or other PD symptoms endorsed. [...] 07/11/2022) hydroCHLOROthiazide (HYDRODIURIL, AKHIL (more content not included)...[facility]03-07-2025 History of Present illness Narrative* Kaushal [...] imaging. CT brain completed on 06/22/22 at [facility] reportedly showed no acute changes but chronic infarcts in the L and R c erebellar hemispheres as well as . Pt reports symptoms of balance difficulties started about 1-2years ago. Pt states he thinks it was due to starting a chemo medication or at least balance issuesgot worse - med was stopped but still did not improve. Pt states "first of all I got knee problems a nd they are bone on bone". However does not feel the knees give [...] Value 07/12/2010 6.1 No results found for: "TSH" No results found for: "B12" No tremors or other PD symptoms endorsed. [...] mg by mouth once daily. GLUCOSAM/MSM/CHONDR/VIT C/HYAL (VFBRIFBRORB-LKHEQTQJTIC-OIV ORAL) Take 1 tablet by mouth two times a day. nitroglycerin sublingual 0.3 mg SL tablet Dissolve 0.3 mg under the tongue every 5 minutes as needed. Calcium Carbonate-Vitamin D3 600mg (1,000mg) -1,000 unit ORAL Tab Take 1 tablet by mouth once daily. Fish Oil-[place]-3 Fatty Acids 500-300 mg ORAL Cap Take [...] 05/24/2024 10:47 AM EST documented in this encounterLutheran Hospital03-07-2025 NoteHNO ID: [id number] Author: GUZMAN SÁNCHEZ LPN Service: ? Author Type: LICENSED NURSE Type: Progress Notes Filed: 05/24/2024 11:43 Note Text:[facility]03-06-2025 Chief complaint+Reason for visit Narrative* Chief [...] stent in coronary artery Apr 2024 10:37am [facility] Work Phone: 1(131) [phone] Chief complaint+Reason for visit Narrative * Chief [...] stent in coronary artery Apr 2024 10:37am [facility] Work Phone: 1(100) 439-313012-17-2024 NoteHNO ID: [id number] Author: EVERETT ALDRICH MD Service: ? Author [...] mg by mouth once daily. GLUCOSAM/MSM/CHONDR/VIT C/HYAL ([id number]-[id number]-VHQ ORAL) Take 1 tablet by mouth two [...] (Patient not taking: Reported on 07/11/2022) Fish Oil-[place]-3 Fatty Acids 500-300 mg ORAL Cap Take [...] well-hydrated, well nourished. I (more content not included)...[facility]12-17-2024 History of Present illness Narrative* Everett [...] in 1998, status post radical prostatectomy for [place] score 6 = 3+3. He had been [...] mg by mouth once daily. GLUCOSAM/MSM/CHONDR/VIT C/HYAL (KERUTZABPQB-TIGZZATUXUZ-POX ORAL) Take 1 tablet by mouth two [...] daily. (Patient not taking:Reported on 07/11/2022) Fish Oil-[place]-3 Fatty Acids 500-300 mg ORAL Cap Take [...] which included preparing to see the patient, skac-cn-igmm patient care, completing clinical documentation, obtaining and/or reviewing separately obtained history, ordering medications, tests, or procedures, independently interpreting results (not separately reported), and communicating results to the patient/family/caregiver. Electronically Signed: Everett Aldrich MD March 05, 2024 documented in this encounterLutheran Hospital11-05-2024 Instructions* Patient Instructions* Pranav Tate PA-C - 01/23/2024 4:44 PM EST > 1 year Appt w/ B. SHARRI Tate, RODRICK LEUNG for annual follow-up and refills. documented in this encounterLutheran Hospital11-05-2024 NoteHNO ID: [id number] Author: PRANAV TATE PA-C Service: ? Author Type: Physician Automobile Brake Bonder Type: Progress Notes Filed: 01/23/2024 20:33 Note Text: [facility] [place] CC: "Prostate Cancer Follow-Up" HPI: This is a 86 year old, [...] mg by mouth once daily. GLUCOSAM/MSM/CHONDR/VIT C/HYAL (SJBQWHGPEVU-BXVNJPQZOEQ-CKU ORAL) Take 1 tablet by mouth two times a day. nitroglycerin sublingual 0.3 mg SL tablet Dissolve 0.3 mg under the tongue every 5 minutes as needed. Calcium Carbonate-Vitamin D3 600mg (1,000mg) -1,000 unit ORAL Tab Take 1 tablet by mouth once daily. Fish Oil-[place]-3 Fatty Acids 500-300 mg ORAL Cap Take [...] resp. rate 20, height 170.2 cm (5' 7"), weight 88.5 kg (195 lb), SpO2 96%. [...] to visit, PSA ordered SHARRI Palacios, MADHU, MARIE-[facility]11-05-2024 History of Present illness Narrative* Pranav Tate PA-C - 01/23/2024 4:40 PM EST Images from the original note were not included. [facility] CC: "Prostate Cancer Follow-Up" HPI: This is a 86 year old, [...] mg by mouth once daily. GLUCOSAM/MSM/CHONDR/VIT C/HYAL (CFQGBJNBMSI-EFHLVIMUYUW-FOM ORAL) Take 1 tablet by mouth two times a day. nitroglycerin sublingual 0.3 mg SL tablet Dissolve 0.3 mg under the tongue every 5 minutes as needed. Calcium Carbonate-Vitamin D3 600mg (1,000mg) -1,000 unit ORAL Tab Take 1 tablet by mouth once daily. Fish Oil-Westfield-3 Fatty Acids 500-300 mg ORAL Cap Take [...] resp. rate 20, height 170.2 cm (5' 7"), weight 88.5 kg (195 lb), SpO2 96%. [...] from the original note were not included. [facility] [place] [facility] EST PATIENT CLINIC NOTE SERVICE DATE: January 23, 2024 NAME: Alex Carpenter CHIEF COMPLAINT: Hx of Adenocarcinoma of Prostate and OAB HISTORY OF PRESENT ILLNESS: Alex Carpenter is a 88 year old male an established patient following up for Hx of Adenocarcinoma of Prostate and OAB The patient reports running out of his Ditropan and new Rx sent to [facility] today Continued follow-up with Medical Oncology PSA [...] mg by mouth once daily. GLUCOSAM/MSM/CHONDR/VIT C/HYAL ([id number]-[id number]-LSK ORAL) Take 1 tablet by mouth two times a day. nitroglycerin sublingual 0.3 mg SL tablet Dissolve 0.3 mg under the tongue every 5 minutes as needed. Calcium Carbonate-Vitamin D3 600mg (1,000mg) -1,000 unit ORAL Tab Take 1 tablet by mouth once daily. Fish Oil-Westfield-3 Fatty Acids 500-300 mg ORAL Cap Take [...] resp. rate 20, height 170.2 cm (5' 7"), weight 88.5 kg (195 lb), SpO2 96%. [...] - Ditropan > 1 year Appt w/ BSHARRI Whitehead MT, PA-C for annual follow-up and refills. SHARRI Palacios MT, PA-C * An Crespo RN - 01/23/2024 3:46 PM EST Verified name and date of . CC Post Void Residual HPI: Alex Carpenter is a 88 year old male. The patient is here now for an appointment with SHARRI Palacios MT, DAGO. Procedure: Explained procedure to patient and verbalizes understanding. Performed a PVR. Patient urinated and instructed to empty bladder as much as possible just prior to having PVR done using bladder ultrasound scanner. Results of scan: 0 mL The patient tolerated the procedure well. Plan: Appointment with Brandon. An Crespo RN January 23, 2024 4:20 PM documented in this encounterLutheran Hospital11-05-2024 NoteHNO ID: [id number] Author: PRANAV TATE PA-C Service: ? Author Type: Physician Automobile Brake Bonder Type: Progress Notes Filed: 01/23/2024 20:33 Note Text: [facility] [place] [facility] EST PATIENT CLINIC NOTE SERVICE DATE: January 23, 2024 NAME: Alex Carpenter CHIEF COMPLAINT: Hx of Adenocarcinoma of Prostate and OAB HISTORY OF PRESENT ILLNESS: Alex Carpenter is a 88 year old male an established patient following up for Hx of Adenocarcinoma of Prostate and OAB The patient reports running out of his Ditropan and new Rx sent to [facility] today Continued follow-up with Medical Oncology PSA [...] mg by mouth once daily. GLUCOSAM/MSM/CHONDR/VIT C/HYAL (KIHNRPCYHSA-QJXHWNHWRZC-RPU ORAL) Take 1 tablet by mouth two times a day. nitroglycerin sublingual 0.3 mg SL tablet Dissolve 0.3 mg under the tongue every 5 minutes as needed. Calcium Carbonate-Vitamin D3 600mg (1,000mg) -1,000 unit ORAL Tab Take 1 tablet by mouth once daily. Fish Oil-Westfield-3 Fatty Acids 500-300 mg ORAL Cap Take [...] resp. rate 20, height 170.2 cm (5' 7"), weight 88.5 kg (195 lb), SpO2 96%. [...] year Appt w/ B. SHARRI Tate MT, PAGee for annual follow-up and refills. SHARRI Palacios MT, [facility]11-05-2024 NoteHNO ID: [id number] Author: AN CRESPO RN Service: ? Author Type: Registered Nurse Type: Progress Notes Filed: 01/23/2024 20:33 Note Text: Verified name and date of . CC Post Void Residual HPI: Alex Carpenter is a 88 year old male. The patient is here now for an appointment with SHARRI Palacios MT, [facility]. Procedure: Explained procedure to patient and verbalizes understanding. Performed a PVR. Patient urinated and instructed to empty bladder as much as possible just prior to having PVR done using bladder ultrasound scanner. Results of scan: 0 mL The patient tolerated the procedure well. Plan: Appointment with Brandon. An Crespo RN January 23, 2024 4:20 [facility]09-24-2024 History of Present illness Narrative* Crissy [...] mg by mouth once daily. GLUCOSAM/MSM/CHONDR/VIT C/HYAL ([id number]-[id number]-FUU ORAL) Take 1 tablet by mouth two [...] daily. (Patient not taking:Reported on 07/11/2022) Fish Oil-Westfield-3 Fatty Acids 500-300 mg ORAL Cap Take [...] with current findings. RTC with bre Mai APRN.ASSISTANT DESIGNER I spent a total of 30 minutes on the date of the service which included preparing to see the patient, qdue-jc-nyjj patient care, completing clinical documentation, performing a [...] evaluation of this patient. documented in this encounterLutheran Hospital09-24-2024 NoteHNO ID: [id number] Author: CRISSY MAI, ? Service: ? Author [...] mg by mouth once daily. GLUCOSAM/MSM/CHONDR/VIT C/HYAL ([id number]-VWNPOJIGCLM-NAP ORAL) Take 1 tablet by mouth two [...] (Patient not taking: Reported on 07/11/2022) Fish Oil-Westfield-3 Fatty Acids 500-300 mg ORAL Cap Take one(1) tablet daily. Lab Results Component Value Date PSA 0.15 09/19/2023 PSA 0.17 06/27/2023 PSA 0.21 04/03/2023 PSA 0.21 01/12/2023 PSA 0.50 11/09/2022 PSA 0.47 10/20/2022 PSA 0.04 07/18/2022 PSA 0.07 04/25/2022 PSA 0.19 01/07/2022 PSA 204.80 (H) 10/08/2021 REVIEW OF SYSTEMS: GENERAL: No fever, night sweats, weight loss or ma (more content not included)...[facility]07-02-2024 History of Present illness Narrative* Everett [...] mg by mouth once daily. GLUCOSAM/MSM/CHONDR/VIT C/HYAL (RBAYJWMEGJQ-NGNPCSOJDET-MUV ORAL) Take 1 tablet by mouth two [...] daily. (Patient not taking:Reported on 07/11/2022) Fish Oil-Westfield-3 Fatty Acids 500-300 mg ORAL Cap Take [...] which included preparing to see the patient, rvob-lk-vdfx patient care, completing clinical documentation, obtaining and/or reviewing separately obtained history, ordering medications, tests, or procedures, independently interpreting results (not separately reported), and communicating results to the patient/family/caregiver. Electronically Signed: Everett Aldrich MD September 19, 2023 documented in this encounterLutheran Hospital04-12-2024 Miscellaneous Notes* Telephone Encounter - Trina Murray LPN - 06/30/2023 3:31 PM EDT Returned call to pt. Offered to mail results. Gave him [employer] phone number as he is having issues logging in with his password. Trina Murray LPN * Telephone Encounter - Kelli Terry - 06/30/2023 3:13 PM EDT Patient called asking that we send his 06/26 lab results to his email. He states he has a hard time finding things in My Chart. documented in this encounterLutheran Hospital04-09-2024 History of Present illness Narrative* Everett [...] in 1998, status post radical prostatectomy for [place] score 6 = 3+3. He had been [...] mg by mouth once daily. GLUCOSAM/MSM/CHONDR/VIT C/HYAL (SGJUIFFQGKL-WXFUBVBEXST-ZPF ORAL) Take 1 tablet by mouth once daily. nitroglycerin sublingual 0.3 mg SL tablet Dissolve 0.3 mg under the tongue every 5 minutes as needed. Calcium Carbonate-Vitamin D3 600mg (1,000mg) -1,000 unit ORAL Tab Take 1 tablet by mouth once daily. Fish Oil-Westfield-3 Fatty Acids 500-300 mg ORAL Cap Take [...] which included preparing to see the patient, ksuu-qn-dcsl patient care, completing clinical documentation, obtaining and/or reviewing separately obtained history, ordering medications, tests, or procedures, independently interpreting results (not separately reported), and communicating results to the patient/family/caregiver. Electronically Signed: Everett Aldrich MD June 27, 2023 documented in this encounterLutheran Hospital03-21-2024 Miscellaneous Notes* Telephone Encounter - Stephanie Balderas - 06/08/2023 4:29 PM EDT Patient returned call and scheduled with Pranav Tate. Stephanie Balderas * Telephone Encounter - Mireya Espinosa - 06/07/2023 2:49 PM EDT Called patient and left a vm to return our phone call. MyChart message sent Mireya Espinosa * Telephone Encounter - Irene Florentino RN - 06/07/2023 2:43 PM EDT PSS: please call patient to schedule follow up with Urology in [place]. Last seen Pranav Tate 2021. Marni Florentino [...] to wear diapers for and the Oxybutynin "helped"and he would like to either have a [...] on his mobile phone when able at [phone] Thank you, Shannon Davenport documented in this encounterLutheran Hospital01-02-2024 Discharge summary Author Otto Shirley [facility] March 21, 2023 10:21am Note Date/Time March 21, 2023 10 :21am [facility] Physical [facility] [address] [place] [address]. [address] [place] [address] / REHABILITATION SERVICES DISCHARGE SUMMARY MR#: [id number] Acct: [id number] Name: ALEX CARPENTER Rep #: [id number] : 1935 87 From: Otto Casper DPT, OCS, CSCS Referring Dr.: Dr. Otto Subramanian MD Status: REG RCR Insurance: [facility] SELF PAY INSURANCE Discharge Summary D/C summary: [...] please feel free to call me at [phone]. Thank you for the referral of thispatient. Sincerely, Otto Shirley DPT, OCS, CSCS Balance/Gait/Functional tests Balance/Special Test Scores Functional Gait Assessment Score: 27 % Disability: 10.0000 CATSIB Score (Max score 120 seconds): 110 Lower Extremity Functional Score: 45 Improvement % Improvement: 80 <Electronically signed by DENISE De Jesus DPT, CSCS> 03/21/23 1021 CC: Dr. Otto Subramanian MD ~ EBG Signed [facility] Work Phone: [phone]) 207-411112-15-2023 Miscellaneous Notes* Telephone Encounter - Ileana Leiva - 03/03/2023 11:51 AM EST Pt scheduled as directed * Telephone Encounter - Margie Corbin RN - 03/03/2023 10:[address] Aldrich, please schedule next zometa out a month so he can get both his eligard and zometa on same day. documented in this encounterLutheran Hospital11-13-2023 Miscellaneous Notes* Telephone Encounter - Kelli [...] and advise. Kelli Davenport documented in this encounterLutheran Hospital10-20-2023 Miscellaneous Notes* Telephone Encounter - Stephanie Tavarez RN - 01/06/2023 8:26 AM EDT Per Baltazar, pt will not receive Zometa today due to kidney function. Spoke to and updated her. Reminded her of appt on 01/12. Appt canceled. documented in this [facility]08-04-2023 Miscellaneous Notes* Telephone Encounter - Leisa Woods LPN - 10/21/2022 12:31 PM EDT Left message on patient's VM. Driblethart message sent. Leisa Woods LPN * Telephone Encounter - Leisa Woods LPN - 10/20/2022 5:02 PM EDT Noted. Leisa Woods LPN * Telephone Encounter - Kelli Terry - 10/20/2022 3:51 PM EDT Patient requesting a call when PSA results are completed documented in this encounterLutheran Hospital08-03-2023 Miscellaneous Notes* Addendum Note - Everett Aldrich MD - 10/20/2022 10:00 AM EDTAddended by: EVERETT ALDRICH on: 10/20/2022 10:00 AM Modules accepted: Orders documented in this encounterLutheran Hospital08-03-2023 Nurse Note* Trina Murray LPN - 10/20/2022 9:49 AM EDT Pt here for injection of Eligard. Given sq in LLQ. Pt tolerated well. For all other information regarding today, see today's OV note with Dr Aldrich. Trina Murray LPN documented in this encounterLutheran Hospital08-03-2023 History of Present illness Narrative* Everett [...] by mouth once daily.^Disp: ^Rfl: GLUCOSAM/MSM/CHONDR/VIT C/HYAL (GLSNRFEEDDW-XPHNNLZOSPV-CYF ORAL)^Take 1 tablet by mouth once daily.^Disp: ^Rfl: nitroglycerin sublingual 0.3 mg SL tablet^Dissolve 0.3 mg under the tongue every 5 minutes as needed.^Disp: ^Rfl: Calcium Carbonate-Vitamin D3 600mg (1,000mg) -1,000 unit ORAL Tab^Take 1 tablet by mouth once daily.^Disp: 30 tablet^Rfl: 6 Fish Oil-Westfield-3 Fatty Acids 500-300 mg ORAL Cap^Take one(1) [...] (Src) 98.2 (Temporal) Resp 14 Ht 5' 7" (1.70m) Wt 209 lb 8 oz (95.0kg) SpO2 96% BMI 32.80 kg/(m^2). GENERAL APPEARANCE: Well appearing, in no acute distress, alert and oriented x3, well-hydrated, well nourished. I spent a total of 30 minutes on the date of the service which included preparing to see the patient, hvvt-su-hear patient care, completing clinical documentation, obtaining and/or reviewing separately obtained history, ordering medications, tests, or procedures, independently interpreting results (not separately reported), and communicating results to the patient/family/caregiver. Electronically Signed: Everett Aldrich MD October 20, 2022 9:21 AM documented in this encounterLutheran Hospital07-26-2023 History of Present illness Narrative* Rose [...] Rose Mary Sharp RN documented in this encounterLutheran Hospital05-11-2023 Nurse Note* Gilda Back LPN - 07/28/2022 9:08 AM EDT Eligard injection administered, RLQ ,tolerated well, no immediate adverse reactions noted. See office notes Gilda Back LPN documented in this encounterLutheran Hospital05-11-2023 History of Present illness Narrative* Bree [...] new concerns today. Erleada remains on hold. Appetite:"Good." Energy level:"It's getting better." Denies fevers. Resp:denies cough or sob Cardiac:denies [...] visit. Bree Cornejo APRN.GIAN documented in this encounterLutheran Hospital05-01-2023 Miscellaneous Notes* Telephone Encounter - Denilson Fernandes DO - 07/18/2022 9:59 AM EDT Orders filed. Denilson Fernandes DO * Telephone Encounter - Gilda Back LPN - 07/18/2022 9:55 AM EDT Pt. Here for labs, wrong orders are in, They are for [facility], please sign pended orders. Gilda Back LPN documented in this encounterLutheran Hospital04-24-2023 History of Present illness Narrative* Denilson Fernandes, DO - 07/11/2022 2:40 PM EDT DIAGNOSIS: [...] (98.1 F), weight 96.2 kg (212 lb), RqD682 %. Well-appearing and in no acute distress. EYES: Sclerae are anicteric bilaterally. LYMPHATIC: There is no palpable cervical or supraclavicular adenopathy. RESPIRATORY: Inspiratory breath sounds are of normal intensity in all mancini. CARDIOVASCULAR: Rhythm is regular. ABDOMEN: The abdomen is nondistended. Extremities: No swelling or edema. SKIN: No jaundice. NEUROLOGIC: medical oncology physician II-XII are grossly intact. No focal motor [...] Lymph 1.00 - 4.00 k/uL 0.87 (L) [place]% % 8.5 Abs [place] <0.87 k/uL 0.76 Eosin% % 2.7 Abs [...] which included preparing to see the patient, zuvf-zk-qnay patient care, completing clinical documentation, obtaining and/or reviewing separately obtained history, performing a medically appropriate examination, counseling and educating the pat ient/family/caregiver, ordering medications, tests, or procedures, and communicating results to thepatient/family/caregiver. Denilson Fernandes DO Cc: Dr. Otto Subramanian documented in this encounterLutheran Hospital04-12-2023 Miscellaneous Notes* Telephone Encounter - Hanna [...] better, able to get up from chair "likenormal" States not as tired today either. Patient denies any other issues or needs. Aware that I will update Dr. Levin. Reviewed upcoming appointments and will discuss treatment options at that time. Marni Florentino RN documented in this encounterLutheran Hospital04-10-2023 Miscellaneous Notes* Telephone Encounter - Hanna Levin MD - 06/27/2022 9:39 AM EDT Carine alan * Telephone Encounter - Irene Florentino RN - 06/24/2022 10:21 AM EDT Call to patient, denies any worsening symptoms. Calling to give update before the weekend. States that "I'm a little bit better and not any worse", " I am able to get up better" meaning he is able tostand up on [...] another update. Marni Florentino RN Disposition: per Retort Press Operator, patient directed to: Manage at home. Provided instructions and will call back. Irene Florentino RN * Telephone Encounter - Kelli Levine Pss - 06/24/2022 10:02 AM EDT Patient called requesting to speak to Marni regarding medication and dizziness. documented in this encounterLutheran Hospital04-04-2023 Miscellaneous Notes* Telephone Encounter - Irene [...] from the original note were not included. [facility] Care Coordination FOLLOW-UP NOTE Patient identified by [...] balance but didn't fall. States his arms "feel off"too, "hard to describe" Denies weakness, numbness/tingling, pain, N/V, dizziness, spinning, visual changes, shortness of breath, chest pain. States "kind of like veritgo but no nausea" Denies confusion. Patient is coherent and speech is clear on phone. Patient denies any new medication started. Appetite is good and just finished lunch. Has been drinking adequate fluids (coffee and water), no different than usual. Today is not different as far was work/routine. "I have been at my desk all morning" He is out at barn now b/c he is expecting "a truck with beans" At last visit with Bree Cornejo CNP on 04/26/22,note states: And Erleada dose reduced. Erleada 60mg, 3 tabs daily (180mg) Patient asked if same type of dizziness/unsteadiness and states "it's different", "I didn't feel like I was going to fall and today I do" And, he denies having any issues with his arms. States "if I close my eyes, I don't know where my hands are" New Referrals Needed: No Is the patient having any pain? No Medication questions or concerns? no Line, drain, or catheter education given? No Care Coordination Plan: Patient aware that I will discuss with and call back with further instructions. Irene Florentino RN June 21, 2022 documented in this encounterLutheran Hospital02-16-2023 History of Present illness Narrative* Trina Murray LPN - 05/05/2022 12:03 PM EST Pt here for injection of Eligar. Given sq in RLQ. Pt tolerated well. Trina Murray LPN documented in this encounterLutheran Hospital02-08-2023 Miscellaneous Notes* Telephone Encounter - Stephanie [...] agrees with above. Thank you. Bree Cornejo APRN.GIAN * Telephone Encounter - Adwoa Washburn - 04/26/2022 4:27 PM EST Patient is requesting to speak with clinical staff about PSA results and ordered procedures. Pleasecontact the patient at any time. documented in this encounterLutheran Hospital02-06-2023 Discharge summary Author Otto Shirley [facility] April 25, 2022 8:15am Note Date/Time April 25, 2022 8 :15am [facility] Physical Therapy [facility] [address] [place] [address] / REHABILITATION SERVICES DISCHARGE SUMMARY MR#: [id number] Acct: [id number] Name: ALEX CARPENTER Rep #: [id number] : 1935 86 From: Otto Shirley DPT, OCS, CSCS Referring Dr.: Dr. Otto Subramanian MD Status: REG [facility] Insurance: [facility] SELF PAY INSURANCE ALEX CARPENTER was [...] Dr. Otto Subramanian MD ~ EBG Signed [facility] Work Phone: 1(730) 616-592001-18-2023 History of Present illness Narrative* Margie Bhakta [...] laboratory parameters, disease state markers and outcomes. Centrifugal Casting Machine Operator Assessment Patient confirmed: Yes Med/dose confirmed: Yes Supplies needed: No supplies needed Missed doses: No Estimated days supply on hand: 7 Copay amount: 0 Payment confirmed: Yes Delivery method: FedEx Signature required: No Delivery address: [address] [place] [address], [place], [address] Delivery date: 04/08/22 Questions or concerns for the pharmacist?: No [facility] Assessment - Hematology/Oncology: [...] fracture risk. Margie Bhakta documented in this encounterLutheran Hospital12-20-2022 History of Present illness Narrative* Yoana Sonja - 03/08/2022 12:51 PM EST [facility] [...] laboratory parameters, disease state markers and outcomes. Centrifugal Casting Machine Operator Assessment Patient confirmed: Yes Med/dose confirmed: Yes Supplies needed: No supplies needed Missed doses: No Estimated days supply on hand: 8 Copay amount: 0 Payment confirmed: Yes Delivery method: FedEx Signature required: No Delivery address: [address] [place] [address] *leave between screen door* [place] [address] Delivery date: 03/16/22 Questions or concerns for the pharmacist?: No [facility] Assessment - Hematology/Oncology: [...] fracture risk. Yoana Casillas documented in this encounterLutheran Hospital12-20-2022 Miscellaneous Notes* Telephone Encounter - Aparna [...] patient. Aparna Becerra MD documented in this encounterLutheran Hospital11-18-2022 History of Present illness Narrative* Anabelle Choi (Water Softener Servicer And Installer) - 02/04/2022 11:19 AM EST [facility] [...] parameters, disease state markers and outcomes. Robert Jensen PharmD Clinical Pharmacist, Oncology [facility] P: ; F: Pool: P [facility] Pool #: [id number] Centrifugal Casting Machine Operator Assessment Patient confirmed: Yes Med/dose confirmed: Yes Supplies needed: No supplies needed Missed doses: No Estimated days supply on hand: 10 Copay amount: 0 Payment confirmed: No Delivery method: FedEx Signature required: No Delivery address: [address] [place] [address] [address] *leave between screen door*,[place] [address] Delivery date: 02/09/22 [facility] Visit Assessment - Hematology/Oncology: [...] Yes Scheduled future appointments: Yes Anabelle Choi (Water Softener Servicer And Installer) documented in this encounterLutheran Hospital11-15-2022 History of Present illness Narrative* Pranav Tate PA-C - 02/01/2022 5:53 PM EST Images from the original note were not included. [facility] CC: "Prostate Cancer Follow-Up" HPI: This is a 86 year old, [...] by mouth once daily.^Disp: ^Rfl: GLUCOSAM/MSM/CHONDR/VIT C/HYAL (EJCZPCSJKWU-WULHDVKDUJH-KAQ ORAL)^Take by mouth once daily.^Disp: ^Rfl: nitroglycerin sublingual 0.3 mg SL tablet^Dissolve 0.3 mg under the tongue every 5 minutes as needed.^Disp: ^Rfl: Calcium Carbonate-Vitamin D3 600mg (1,000mg) -1,000 unit ORAL Tab^Take 1 tablet by mouth once daily.^Disp: 30 tablet^Rfl: 6 Fish Oil-Westfield-3 Fatty Acids 500-300 mg ORAL Cap^Take one(1) [...] resp. rate 14, height 170.2 cm (5' 7"), weight 93 kg (205 lb), SpO2 97 [...] to discuss with provider. documented in this encounterLutheran Hospital11-09-2022 Miscellaneous Notes* Telephone Encounter - Adela [...] Reports being confused and would like clarification. dAela Ramos LPN documented in this encounterLutheran Hospital11-02-2022 Miscellaneous Notes* Telephone Encounter - Destinee [...] Okay to leave message. documented in this encounterLutheran Hospital10-24-2022 Miscellaneous Notes* Telephone Encounter - Leisa [...] any labs be faxed to them at [phone] documented in this encounterLutheran Hospital09-20-2022 History of Present illness Narrative* Anabelle Choi (Water Softener Servicer And Installer) - 12/07/2021 9:30 AM EDT [facility] [...] laboratory parameters, disease state markers and outcomes. Centrifugal Casting Machine Operator Assessment Patient confirmed: Yes Med/dose confirmed: Yes Supplies needed: No supplies needed Estimated days supply on hand: 10 Copay amount: 0 Payment confirmed: Yes Delivery method: FedEx Signature required: No Delivery address: [address] [place] [id number] Delivery date: 12/10/21 Questions or concerns for the pharmacist?: No [facility] Assessment - Hematology/Oncology: [...] for fall and fracture risk. Anabelle Choi (Water Softener Servicer And Installer) documented in this encounterLutheran Hospital08-16-2022 Miscellaneous Notes* Telephone Encounter - Leisa [...] Please advise the patient., documented in this encounterLutheran Hospital08-08-2022 Miscellaneous Notes* Telephone Encounter - Irene [...] comply. Irene Florentino RN documented in this encounterLutheran Hospital08-05-2022 Miscellaneous Notes* Telephone Encounter - Brett [...] WSTR until oop max is reached. Reference #[id number]. Thereare no open foundations for Dx. Called patient, no answer, left vm documented in this encounterLutheran Hospital07-27-2022 Miscellaneous Notes* Telephone Encounter - Trina Murray LPN - 10/13/2021 2:31 PM EDT Will fax this information to Dr Macario, his flat optical element maker. Trina Murray LPN * Telephone Encounter - [...] because of interaction with APALUTAMIDE Ask his flat optical element maker about stopping TICAGRELOR and continue with aspirin 81 mg once daily only. Prasugrel could be a reasonable substitute if he absolutely needs to be on both aspirin and ticagrelor. Aparna Becerra MD documented in this encounterLutheran Hospital07-25-2022 Miscellaneous Notes* Telephone Encounter - Aparna [...] Murray LPN * Telephone Encounter - Aparna eBcerra MD - 10/09/2021 10:00 AM EDT Start ergocalciferol 50,000 U weekly. His vitamin D level was low. Signed Prescriptions Disp Refills ergocalciferol 50,000 unit capsule (VITAMIN D2, DRISDOL) 12 capsule 3 Sig: Take 1 capsule by mouth one time a week. Authorizing Provider: APARNA BECERRA Order entered - please phone pharmacy and notify patient. Aparna Becerra MD documented in this encounterLutheran Hospital07-22-2022 History of Present illness Narrative* Anabelle Choi (Water Softener Servicer And Installer) - 10/08/2021 11:08 AM EDT [facility] received prescription(s) for Erleada from Dr. Becerra's office. Benefits investigation was conducted, indicating that a prior authorization is required by patient's insurance plan with [employer]/ [employer]. Encounter will be updated once prior authorization has been submitted [facility]. Anabelle Choi CPHt documented in this encounterLutheran Hospital07-22-2022 History and physical note * Aparna Becerra MD - 10/08/2021 10:12 AM EDT Hematology and Medical Oncology PATIENT NAME: Alex Carpenter. CLINIC NO: [id number]. ATTENDING PHYSICIAN: Aparna Becerra MD. DATE OF [...] in 1998, status post radical prostatectomy for [place] score 6 = 3+3. He has been [...] mg by mouth twice daily. GLUCOSAM/MSM/CHONDR/VIT C/HYAL (MOAWGEDIZAP-SOEIIXUTQBN-WCF ORAL) Take by mouth once daily. nitroglycerin sublingual 0.3 mg SL tablet Dissolve 0.3 mg under the tongue every 5 minutes as needed. Calcium Carbonate-Vitamin D3 600mg (1,000mg) -1,000 unit ORAL Tab Take 1 tablet by mouth once daily. Fish Oil-[place]-3 Fatty Acids 500-300 mg ORAL Cap Take [...] 101/63 Pulse 71 Temp 97.4 Ht 5' 5.748" (1.67m) Wt 198 lb (89.8kg) SpO2 98% [...] Lymph 1.00 - 4.00 k/uL 0.95 (L) [place]% % 7.5 Abs [place] <0.87 k/uL 0.57 Eosin% % 4.7 Abs [...] and agreed to proceed with therapy. Patient hearing and speech assistant program was also discussed today. -Repeat CBC, CMP, PSA & vitamin D 25 office visit in 3 months I spent 60 minutes in the visit, with more than 50% of the total ehff-mo-eivf time of the visit in counseling / coordination of care. Aparna Becerra MD. ELECTRONICALLY SIGNED Cc: Dr. Otto Subramanian documented in this encounterLutheran Hospital07-22-2022 Instructions* Patient Instructions* Aparna Becerra MD - 10/08/2021 9:45 AM EDT Information on Apalutamide for metastatic prostate cancer documented in this encounterLutheran Hospital07-11-2022 Miscellaneous Notes* Telephone Encounter - Pranav [...] 07/[address] Becerra - Medical Oncology [facility] SHARRI Palacios, MADHU, RODRICK * Telephone Encounter - Anabelle Osborne RN - 09/27/2021 2:47 PM EDT Received call from Dr. Otto Subramanian's office. He would like to discuss results of body scan with Pranav indicating 3 areas of possible metastasis of prostate cancer. Please call to discuss at your soonest convenience. documented in this encounterLutheran Hospital07-08-2022 History of Present illness Narrative* Adela Richard BERMAN - 09/24/2021 3:02 PM EDT Patient here [...] 07/05/2019 0.25 03/06/2019 33.08 03/04/2019 29.01 PSA [facility] ( lab) - 52 PSA [facility] (lab) 245 Physical Exam: General [...] is here now for an appointment with Pranav E. Tate, MPAS, MT, PA-COV. Procedure: Explained procedure to patient and verbalizes understanding. Performed a PVR. Patient urinated and instructed to empty bladder as much as possible just prior to having PVR done using bladder ultrasound scanner. Results of scan: 214 mL The patient tolerated the procedure well. Plan: Appointment with Pranav. documented in this encounterLutheran Hospital07-07-2022 Miscellaneous Notes* Telephone Encounter - Adela Ramos LPN - 09/23/2021 9:43 AM EDT Called [facility]- not available. Left message requesting lab to be faxed for appointment tomorrow. Adela Ramos LPN * Telephone Encounter - uLpe Barraza RN - 09/22/2021 12:00 PM EDT Pt called in to notify that his PCP Otto Subramanian ordered a PSA test and results were 200. Pt scheduled with Pranav 09/24/21 and will have office fax results to urology office. documented in [facility] encounter[facility]* Diagnosis Onset Date Resolution Status Bilateral carotid bruits acu te Nonrheumatic aortic (valve) stenosis acute Premature atrial contractions acute Atherosclerotic heart diseas e of [place] coronary artery without angina pectoris chronic Essential hypertension chron ic Hyperlipidemia chronic Presence of stent in coronary artery Jul, 2013 [facility] Work Phone: Evaluation note* Diagnosis Prostate cancer (HCC)- Primary Malignant neoplasm of prostate Elevated PSA Elevated prostate specific antigen (PSA) documented in this encounter [facility]* Diagnosis Malignant neoplasm of prostate (HCC)- Primary Malignant neoplasm of prostate documented [facility] this encounter [facility]* Diagnosis Malignant neoplasm of prostate (HCC)- Primary Malignant neoplasm of prostate 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 Osteopenia determined by x-ray [facility]* Diagnosis Osteopenia determined by x-ray- Primary Vitamin D deficiency Unspecified vitamin D deficiency [facility] [...] neoplasm of prostate [facility]* Diagnosis Malignant neoplasm of prostate (HCC) Malignant neoplasm of prostate 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 [facility]* Diagnosis Malignant neoplasm of prostate (HCC)- Primary Malignant neoplasm of prostate [facility] Diagnosis Malignant neoplasm of prostate [...] neoplasm of prostate [facility]* Diagnosis Malignant neoplasm of prostate (HCC) Malignant neoplasm of prostate 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 [facility] noteNo assessment information availableWDiley Ridge Medical Center Work Phone: Evaluation note* Diagnosis 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 Malignant neoplasm of prostate (HCC) Malignant neoplasm of prostate [facility] Diagnosis Malignant neoplasm of prostate (HCC)- Primary Malignant neoplasm of prostate [facility] Diagnosis 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 Malignant neoplasm of prostate (HCC) Malignant neoplasm of prostate [facility] Diagnosis 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 Malignant neoplasm of prostate (HCC) Malignant neoplasm of prostate [facility]* Diagnosis Malignant neoplasm of prostate (HCC)- [...] vitamin D deficiency [facility]* Diagnosis Onset Date Resolution Status Carotid artery disease acute Nonrheumatic aortic (valve) stenosis acute Premature atrial contractions acute Essential hypertension chron ic Hyperlipidemia chronic Presence of stent in coronary artery Jul, 2013 [facility] Work Phone: Evaluation note* Diagnosis 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 [facility]* Diagnosis 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 Malignant neoplasm of prostate (HCC) Malignant neoplasm of prostate [facility] Diagnosis Malignant neoplasm of prostate (HCC)- Primary Malignant neoplasm of prostate 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 [facility]* Diagnosis OAB (overactive bladder)- Primary Hypertonicity of bladder Malignant neoplasm of prostate (HCC) Malignant neoplasm of prostate [facility]* Diagnosis Malignant neoplasm of prostate (HCC)- Primary Malignant neoplasm of prostate 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 [facility]* Diagnosis Loss of balance- Primary Other symptoms involving nervous and musculoskeletal systems Osteopenia determined by x-ray Vitamin D deficiency Unspecified vitamin D deficiency 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 [facility]* Diagnosis Recurrent falls- Primary Personal [...] whether sciatica present [facility]* Diagnosis Malignant neoplasm of prostate (HCC)- Primary Malignant neoplasm of prostate 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 [facility]* Diagnosis Low back pain, unspecified back pain laterality, unspecified chronicity, unspecified whether sciatica present [facility]* Diagnosis Other symptoms and signs [...] stenosis, unspecified laterality documented in this encounter [facility] note* Diagnosis Malignant neoplasm of prostate (HCC)- Primary Malignant neoplasm of prostate 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 documented in this encounter [facility] note* Diagnosis Malignant neoplasm of prostate (HCC)- Primary Malignant neoplasm of prostate Loss of balance Other symptoms involving nervous and musculoskeletal systems [facility]* Diagnosis Malignant neoplasm of prostate (HCC)- Primary Malignant neoplasm of prostate documented in this encounter [facility] note* Diagnosis Severe aortic stenosis- Primary Aortic valve disorders [facility]* Diagnosis Severe aortic stenosis- Primary Aortic valve disorders Severe aortic stenosis Aortic valve disorders documented in this encounter [facility] note* Diagnosis Severe aortic stenosis- Primary Aortic valve disorders Severe aortic stenosis- Primary Aortic valve disorders Severe aortic stenosis Aortic valve disorders documented in this encounter [facility] note* Diagnosis Severe aortic stenosis- Primary Aortic valve disorders Severe aortic stenosis Aortic valve disorders documented in this encounter [facility] note* Diagnosis Severe aortic stenosis- Primary Aortic valve disorders documented in this encounter [facility] note* Diagnosis Primary hypertension- Primary Unspecified essential hypertension Hyperlipidemia, unspecified hyperlipidemia type S/P aortic valve replacement with bioprosthetic valve Coronary artery disease involving [place] coronary artery of [place] heart without angina pectoris documented in this encounter [facility] Discharge instructions Additional Instructions Your labs, EKG [...] an MRI of your lumbar and/or thoracic spineWDiley Ridge Medical Center Work Phone: Hospital Discharge instructions Additional Instructions ICE 20 min on, 20 min off. Continue stretching, follow up with physical therapy if needed.[facility] Work Phone: Progress note Author Freddie Lee [facility] Note Date/Time September 29, 2024 9:47 am [facility] [address] [place] [address] OFFICE VISIT Date of Service: 09/29/24 MR#: [id number] Acct: [id number] Patient: ALEX CARPENTER Rep #: [id number] : 1935 Provider: MARIE Cary Age/Sex: 89/M Location: [facility] Status: Signed Intake Vital Signs 09/26/24 08:11 [...] SWOLLEN L ANKLE/FOOT Chief Complaint: LLE swelling/redness 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 BLE edema noted, redness to LLE,no drainage noted. pt is a [facility] pt, does not use support hose, takes diuretic prn and has only taken three times since getting RX. [facility] Medical History (Reviewed 09/26/24 @ 10:51 by Riri Peralta REGISTERED NURSE FIRST ASSISTANT, REGISTERED NURSE FIRST ASSISTANT-C) Bilateral carotid bruits Nonrheumatic aortic (valve) stenosis Essential hypertension SHAMAR (obstructive sleep apnea) Old myocardial infarction Diastolic dysfunction Premature atrial contractions Cardiac murmur Hyperlipidemia Hypertension Atherosclerotic heart disease of [place] coronary artery without angina pectoris Surgical History (Reviewed 09/26/24 @ 10:51 by Riri Peralta REGISTERED NURSE FIRST ASSISTANT, REGISTERED NURSE FIRST ASSISTANT-C) Postsurgical percutaneous transluminal coronary angioplasty (PTCA) status (~07/29/13) Presence of stent in coronary artery (~05/12/14) Social History Smoking Status: Never smoker alcohol [...] year?: No 09/29/24 0947 <Electronically signed by Freddie Story> Date _ Freddie Allen Signature: Date (if applicable) CC: ~ [facility] Work Phone: Reason for referral (narrative)No reason for referral information availableWDiley Ridge Medical Center Work Phone: Reason for visit Narrative* MRI/CT (Routine) - Closed Specialty Diagnoses / Procedures Referred By Contac t Referred To Contact MR IMAGING Diagnoses Low back pain, unspecified back pain laterality, unspecified chronicity, unspecified whether sciatica present Procedures MRI LUMBAR SPINE WO/W IVCON MRI SPINAL CANAL LUMBAR W/O & W/CONTR MATRL Kaushal Stockton Jr., MD [address] [place] [address] Phone: tel: fax: [facility] [place] [address] Referral ID Status Reason Start Date Expiration Date V isits Requested Visits Authorized [id number] Closed Auto-Generate d Referral 05/24/2024 06/23/2025 1 1 [facility] for visit Narrative* MRI/CT (Routine) - Closed Specialty Diagnoses / Procedures Referred By Contac t Referred To Contact MR IMAGING Diagnoses Other symptoms and signs involving the nervous system Procedures MRI BRAIN WO/W IVCON MRI BRAIN BRAIN STEM W/O W/CONTRAST MATERIAL Kaushal Stockton Jr., MD [address] [place], [place] [id number] Phone: tel: fax: [facility] [place] [address] Referral ID Status Reason Start Date Expiration Date V isits Requested Visits Authorized [id number] Closed Auto-Generate d Referral 05/24/2024 06/23/2025 1 1 [facility] for visit Narrative* Imaging (Routine) - Closed Specialty Diagnoses / Procedures Referred By Contac t Referred To Contact Radiology Diagnoses Severe aortic stenosis Procedures CTA Angiogram TAVR Lashell Salas MD [address] [place] [address] Phone: tel: fax: Referral ID Status Reason Start Date Expiration Date Visits Re quested Visits Authorized [id number] Closed 11/26/2024 11/26/2025 1 [facility]* Auth/Cert (Routine) Specialty Diagnoses / Procedures Referred By Zack t Referred To Contact Diagnoses Severe aortic stenosis Procedures CA REPLACE AORTIC VALVE PERQ FEMORAL ARTRY APPROACH TRANSCATHETER AORTIC VALVE REPLACEMENT, TRANSTHORACIC ECHOCARDIOGRAM TRANSCATHETER AORTIC VALVE REPLACEMENT, TRANSTHORACIC ECHOCARDIOGRAM Lashell Salas MD [address] [place] [id number] Phone: tel: fax: Referral ID Status Reason Start Date Expiration Date Visits Re quested Visits Authorized [id number] 11/26/2024 1 1 [facility] Chief Complaint and Reason for Visit Chief Complaint 6 M FU PAIN Reason for Visit Bilateral carotid br uits Nonrheumatic aortic (valve) stenosis Premature atrial contractions Atherosclerotic heart disease of [place] coronary artery without angina pectoris Essential hypertension Hyperlipidemia Presence of stent in coronary artery Chief Complaint 6 M FU PAIN left sided chest pain INCREASING PAIN, WEAKNESS Reason for Visit Bilateral carotid br uits Nonrheumatic aortic (valve) stenosis Premature atrial contractions Atherosclerotic heart disease of [place] coronary artery without angina pectoris Essential hypertension [...] leg cellulitis September 29, 2024 9:27 am Chief Complaint Admit Date 6 M FU June 27, 2024 10: 37am INT LAB ORDERS June 27, 2024 11: 18am PRE OP September 12, 2024 6:49 am PRE OP September 12, 2024 3:20 pm PRE OP September 16, 2024 1:57 pm UPDATE H&P September 26, 2024 7:53 am RED SWOLLEN L ANKLE/FOOT September 29, 2024 9:27am SEVERE October 07, 2024 6:57 am Chief Complaint Admit Date PRE OP September 12, 2024 6:49 am PRE OP September 12, 2024 3:20 pm PRE OP September 16, 2024 1:57 pm UPDATE H&P September 26, 2024 7:53 am RED SWOLLEN L ANKLE/FOOT September 29, 2024 9:27am SEVERE October 07, 2024 6:57 am LEFT KNEE GENICULAR RADIOFREQUENCY ABLAT ION SUPERI November 04, 2024 9:49am Reason for Visit Admit Date Carotid artery disease September 26, 2024 7 :53am Nonrheumatic aortic (valve) stenosis Sep 7:53am Essential hypertension September 26, 2024 7 :53am Hyperlipidemia September 26, 2024 7:53 am Presence of stent in coronary artery Sep 7:53am Left leg cellulitis September 29, 2024 9:27 am Chief Complaint Admit Date PRE OP September 16, 2024 1:57 pm UPDATE H&P September 26, 2024 7:53 am RED SWOLLEN L ANKLE/FOOT September 29, 2024 9:27am SEVERE October 07, 2024 6:57 am LEFT KNEE GENICULAR RADIOFREQUENCY ABLAT ION SUPERI November 04, 2024 9:49am 6 M FU/NEEDS ECHO FOR VALVE REP January 10, 2025 11:10am Reason for Visit Admit Date Carotid artery disease September 26, 2024 7 :53am Nonrheumatic aortic (valve) stenosis Sep 7:53am Essential hypertension September 26, 2024 7 :53am Hyperlipidemia September 26, 2024 7:53 am Presence of stent in coronary artery Sep 7:53am Left leg cellulitis September 29, 2024 9:27 am Edema January 10, 2025 1 1:10am Nonrheumatic aortic (valve) stenosis Oct garry 2024 11:10am Atherosclerotic heart diseas e of [place] coronary artery without angina pectoris January 10, 2025 11:10am Essential hypertension January 10 11:10am Hyperlipidemia January 10, 2025 1 1:10am S/P TAVR (transcatheter aortic valve rep lacement) January 10, 2025 11:10am Advance Directives No Advanced Directives Records Found Advance Directive Response Recorded Date/ Time Living Will Yes August 16, 2021 1 0:09am Power of Real Property Appraiser Yes August 16, 2021 10:09am Advance Directive Response Recorded Date/ Time Name of Medical Power of Real Property Appraiser August 16, 2021 10:09am Name of Medical Power of Real Property Appraiser August 31, 2021 4:12am Living Will Yes August 31, 2021 4:12am Power of Real Property Appraiser Yes August 31 4:12am Advance Directive Response Recorded Date/ Time Living Will Yes August 31, 2021 3:12am Power of Real Property Appraiser Yes August 31 3:12am Advance Directive Response Recorded Date/ Time Name of Medical Power of Real Property Appraiser Kimber Carpenter June 21, 2022 11:55pm Living Will Yes June 21, 2022 11:55pm Power of Real Property Appraiser Yes June 21 11:55pm Advance Directive Response Recorded Date/ Time Living Will Yes June 21, 2022 11:55pm Power of Real Property Appraiser Yes June 21 11:55pm Name of Medical Power of Real Property Appraiser Kimber Greyamy June 21, 2022 11:55pm Advance Directive Response Recorded Date/ Time Name of Medical Power of Real Property Appraiser Kimber Greyamy June 21, 2022 11:55pm Name of Medical Power of Real Property Appraiser KIMBER QUEAMY October 15, 2022 10:29am Living Will No October 15, 2022 10:29am Power of Real Property Appraiser Yes October 15 10:29am Advance Directive Response Recorded Date/ Time Name of Medical Power of Real Property Appraiser Kimber Queamy June 21, 2022 11:55pm Name of Medical Power of Real Property Appraiser KIMBER QUEAMY October 15, 2022 10:29am Name of Medical Power of Real Property Appraiser kimber queamy October 17, 2022 12:23pm Living Will No October 17, 2022 12:23pm Power of Real Property Appraiser Yes October 17 12:23pm Advance Directive Response Recorded Date/ Time Living Will No October 17, 2022 11:23am Power of Real Property Appraiser Yes October 17 11:23am Advance Directive Response Recorded Date/ Time Living Will No October 17, 2022 12:23pm Power of Real Property Appraiser Yes October 17 12:23pm Advance Directive Response Recorded Date/ Time Living Will No October 17, 2022 12:23pm Do you have a Healthcare Power of Real Property Appraiser? Yes October 17, 2022 12:23pm Advance Directive Response Recorded Date/ Time Living Will No October 17, 2022 12:23pm Do you have a Healthcare Power of Real Property Appraiser? Yes October 17, 2022 12:23pm Advance Directives on File Yes October 07, 2024 7:22am Living Will Yes October 07, 2024 7:22am Do you have a Healthcare Power of Real Property Appraiser? Yes October 07, 2024 7:22am Name of Medical Power of Real Property Appraiser Kimber Pillaimarialuisa fe October 07, 2024 7:22am Advance Directives Yes October 07 7:22am Advance Directive Response Recorded Date/ Time Advance Directives on File Yes October 07, 2024 7:22am Living Will Yes October 07, 2024 7:22am Do you have a Healthcare Power of Real Property Appraiser? Yes October 07, 2024 7:22am Name of Medical Power of Real Property Appraiser Kimber medrano October 07, 2024 7:22am Advance Directives Yes October 07 7:22am Do you have a Healthcare Power of Real Property Appraiser? Yes October 31, 2024 3:44pm Name of Medical Power of Real Property Appraiser kimber October 31, 2024 3:44pm Date Activated Date Inactivated Comments 12/23/2024 12:26 PM 12/24/2024 3:36 PM Date Activated Date Inactivated Comments 12/23/2024 12:26 PM 12/24/2024 3:36 PM Medications Administered Section Active Administered Medications - [...] Referral Specialty Diagnoses / Procedures Referred By Zack alexander Referred To Contact MR IMAGING Diagnoses Early onset cerebellar ataxia (HCC) Procedures MRI BRAIN WO/W IVCON MRI BRAIN BRAIN STEM W/O W/CONTRAST MATERIAL Hanna Levin MD [address] [place] [address] Mr Imaging Referral ID Status Reason Start Date Expiration Date Visits Requested Visits Authorized [id number] Pending Review Auto-Generat ed Referral 06/21/2022 07/21/2023 1 1 Specialty Diagnoses / Procedures Referred By Zack alexander Referred To Contact Neurology Diagnoses Loss of balance Procedures CONSULT TO NEUROLOGY OFFICE/OUTPATIENT NEW HIGH MDM [address] [place] [address] [place] [address] Referral ID Status Reason Start Date Expiration Date Visits Requested Visits Authorized [id number] Authorized PCP Requested Referral 4 03/05/2025 1 1 Summary Purpose Family History No Family History Records FoundNo Family History Records FoundNo Family History Records FoundNo Family History Records [...] or prosecute any alcohol or drug abuse patient.[facility] HospitalIn the event this information is protected by the Federal Confidentiality of Alcohol and Drug Abuse Patient Records regulations: The Federal rules restrict any use of the information to criminally investigate or prosecute any alcohol or drug abuse patient.[facility] HospitalIn the event this information is protected by the Federal Confidentiality of Alcohol and Drug Abuse Patient Records regulations: The Federal rules restrict any use of the information to criminally investigate or prosecute any alcohol or drug abuse patient.[facility] HospitalIn the event this information is protected by the Federal Confidentiality of Alcohol and Drug Abuse Patient Records regulations: The Federal rules restrict any use of the information to criminally investigate or prosecute any alcohol or drug abuse patient.[facility] HospitalIn the event this information is protected by the Federal Confidentiality of Alcohol and Drug Abuse Patient Records regulations: The Federal rules restrict any use of the information to criminally investigate or prosecute any alcohol or drug abuse patient.[facility] HospitalIn the event this information is protected by the Federal Confidentiality of Alcohol and Drug Abuse Patient Records regulations: The Federal rules restrict any use of the information to criminally investigate or prosecute any alcohol or drug abuse patient.[facility] HospitalIn the event this information is protected by the Federal Confidentiality of Alcohol and Drug Abuse Patient Records regulations: The Federal rules restrict any use of the information to criminally investigate or prosecute any alcohol or drug abuse patient.[facility] HospitalIn the event this information is protected by the Federal Confidentiality of Alcohol and Drug Abuse Patient Records regulations: The Federal rules restrict any use of the information to criminally investigate or prosecute any alcohol or drug abuse patient.[facility] HospitalIn the event this information is protected by the Federal Confidentiality of Alcohol and Drug Abuse Patient Records regulations: The Federal rules restrict any use of the information to criminally investigate or prosecute any alcohol or drug abuse patient.[facility] HospitalIn the event this information is protected by the Federal Confidentiality of Alcohol and Drug Abuse Patient Records regulations: The Federal rules restrict any use of the information to criminally investigate or prosecute any alcohol or drug abuse patient.[facility] HospitalIn the event this information is protected by the Federal Confidentiality of Alcohol and Drug Abuse Patient Records regulations: The Federal rules restrict any use of the information to criminally investigate or prosecute any alcohol or drug abuse patient.[facility] HospitalIn the event this information is protected by the Federal Confidentiality of Alcohol and Drug Abuse Patient Records regulations: The Federal rules restrict any use of the information to criminally investigate or prosecute any alcohol or drug abuse patient.[facility] HospitalIn the event this information is protected by the Federal Confidentiality of Alcohol and Drug Abuse Patient Records regulations: The Federal rules restrict any use of the information to criminally investigate or prosecute any alcohol or drug abuse patient.[facility] HospitalIn the event this information is protected by the Federal Confidentiality of Alcohol and Drug Abuse Patient Records regulations: The Federal rules restrict any use of the information to criminally investigate or prosecute any alcohol or drug abuse patient.[facility] HospitalIn the event this information is protected by the Federal Confidentiality of Alcohol and Drug Abuse Patient Records regulations: The Federal rules restrict any use of the information to criminally investigate or prosecute any alcohol or drug abuse patient.[facility] HospitalIn the event this information is protected by the Federal Confidentiality of Alcohol and Drug Abuse Patient Records regulations: The Federal rules restrict any use of the information to criminally investigate or prosecute any alcohol or drug abuse patient.[facility] HospitalIn the event this information is protected by the Federal Confidentiality of Alcohol and Drug Abuse Patient Records regulations: The Federal rules restrict any use of the information to criminally investigate or prosecute any alcohol or drug abuse patient.[facility] HospitalIn the event this information is protected by the Federal Confidentiality of Alcohol and Drug Abuse Patient Records regulations: The Federal rules restrict any use of the information to criminally investigate or prosecute any alcohol or drug abuse patient.[facility] HospitalIn the event this information is protected by the Federal Confidentiality of Alcohol and Drug Abuse Patient Records regulations: The Federal rules restrict any use of the information to criminally investigate or prosecute any alcohol or drug abuse patient.[facility] HospitalIn the event this information is protected by the Federal Confidentiality of Alcohol and Drug Abuse Patient Records regulations: The Federal rules restrict any use of the information to criminally investigate or prosecute any alcohol or drug abuse patient.[facility] HospitalIn the event this information is protected by the Federal Confidentiality of Alcohol and Drug Abuse Patient Records regulations: The Federal rules restrict any use of the information to criminally investigate or prosecute any alcohol or drug abuse patient.[facility] HospitalIn the event this information is protected by the Federal Confidentiality of Alcohol and Drug Abuse Patient Records regulations: The Federal rules restrict any use of the information to criminally investigate or prosecute any alcohol or drug abuse patient.[facility] HospitalIn the event this information is protected by the Federal Confidentiality of Alcohol and Drug Abuse Patient Records regulations: The Federal rules restrict any use of the information to criminally investigate or prosecute any alcohol or drug abuse patient.[facility] HospitalIn the event this information is protected by the Federal Confidentiality of Alcohol and Drug Abuse Patient Records regulations: The Federal rules restrict any use of the information to criminally investigate or prosecute any alcohol or drug abuse patient.[facility] HospitalIn the event this information is protected by the Federal Confidentiality of Alcohol and Drug Abuse Patient Records regulations: The Federal rules restrict any use of the information to criminally investigate or prosecute any alcohol or drug abuse patient.[facility] HospitalIn the event this information is protected by the Federal Confidentiality of Alcohol and Drug Abuse Patient Records regulations: The Federal rules restrict any use of the information to criminally investigate or prosecute any alcohol or drug abuse patient.[facility] HospitalIn the event this information is protected by the Federal Confidentiality of Alcohol and Drug Abuse Patient Records regulations: The Federal rules restrict any use of the information to criminally investigate or prosecute any alcohol or drug abuse patient.[facility] HospitalIn the event this information is protected by the Federal Confidentiality of Alcohol and Drug Abuse Patient Records regulations: The Federal rules restrict any use of the information to criminally investigate or prosecute any alcohol or drug abuse patient.[facility] HospitalIn the event this information is protected by the Federal Confidentiality of Alcohol and Drug Abuse Patient Records regulations: The Federal rules restrict any use of the information to criminally investigate or prosecute any alcohol or drug abuse patient.[facility] HospitalIn the event this information is protected by the Federal Confidentiality of Alcohol and Drug Abuse Patient Records regulations: The Federal rules restrict any use of the information to criminally investigate or prosecute any alcohol or drug abuse patient.[facility] HospitalIn the event this information is protected by the Federal Confidentiality of Alcohol and Drug Abuse Patient Records regulations: The Federal rules restrict any use of the information to criminally investigate or prosecute any alcohol or drug abuse patient.[facility] HospitalIn the event this information is protected by the Federal Confidentiality of Alcohol and Drug Abuse Patient Records regulations: The Federal rules restrict any use of the information to criminally investigate or prosecute any alcohol or drug abuse patient.[facility] HospitalIn the event this information is protected by the Federal Confidentiality of Alcohol and Drug Abuse Patient Records regulations: The Federal rules restrict any use of the information to criminally investigate or prosecute any alcohol or drug abuse patient.[facility] HospitalIn the event this information is protected by the Federal Confidentiality of Alcohol and Drug Abuse Patient Records regulations: The Federal rules restrict any use of the information to criminally investigate or prosecute any alcohol or drug abuse patient.[facility] HospitalIn the event this information is protected by the Federal Confidentiality of Alcohol and Drug Abuse Patient Records regulations: The Federal rules restrict any use of the information to criminally investigate or prosecute any alcohol or drug abuse patient.[facility] HospitalIn the event this information is protected by the Federal Confidentiality of Alcohol and Drug Abuse Patient Records regulations: The Federal rules restrict any use of the information to criminally investigate or prosecute any alcohol or drug abuse patient.[facility] HospitalIn the event this information is protected by the Federal Confidentiality of Alcohol and Drug Abuse Patient Records regulations: The Federal rules restrict any use of the information to criminally investigate or prosecute any alcohol or drug abuse patient.[facility] HospitalIn the event this information is protected by the Federal Confidentiality of Alcohol and Drug Abuse Patient Records regulations: The Federal rules restrict any use of the information to criminally investigate or prosecute any alcohol or drug abuse patient.[facility] HospitalIn the event this information is protected by the Federal Confidentiality of Alcohol and Drug Abuse Patient Records regulations: The Federal rules restrict any use of the information to criminally investigate or prosecute any alcohol or drug abuse patient.[facility] HospitalIn the event this information is protected by the Federal Confidentiality of Alcohol and Drug Abuse Patient Records regulations: The Federal rules restrict any use of the information to criminally investigate or prosecute any alcohol or drug abuse patient.[facility] HospitalIn the event this information is protected by the Federal Confidentiality of Alcohol and Drug Abuse Patient Records regulations: The Federal rules restrict any use of the information to criminally investigate or prosecute any alcohol or drug abuse patient.[facility] HospitalIn the event this information is protected by the Federal Confidentiality of Alcohol and Drug Abuse Patient Records regulations: The Federal rules restrict any use of the information to criminally investigate or prosecute any alcohol or drug abuse patient.[facility] HospitalIn the event this information is protected by the Federal Confidentiality of Alcohol and Drug Abuse Patient Records regulations: The Federal rules restrict any use of the information to criminally investigate or prosecute any alcohol or drug abuse patient.[facility] HospitalIn the event this information is protected by the Federal Confidentiality of Alcohol and Drug Abuse Patient Records regulations: The Federal rules restrict any use of the information to criminally investigate or prosecute any alcohol or drug abuse patient.[facility] HospitalIn the event this information is protected by the Federal Confidentiality of Alcohol and Drug Abuse Patient Records regulations: The Federal rules restrict any use of the information to criminally investigate or prosecute any alcohol or drug abuse patient.[facility] HospitalIn the event this information is protected by the Federal Confidentiality of Alcohol and Drug Abuse Patient Records regulations: The Federal rules restrict any use of the information to criminally investigate or prosecute any alcohol or drug abuse patient.[facility] HospitalIn the event this information is protected by the Federal Confidentiality of Alcohol and Drug Abuse Patient Records regulations: The Federal rules restrict any use of the information to criminally investigate or prosecute any alcohol or drug abuse patient.[facility] HospitalIn the event this information is protected by the Federal Confidentiality of Alcohol and Drug Abuse Patient Records regulations: The Federal rules restrict any use of the information to criminally investigate or prosecute any alcohol or drug abuse patient.[facility] HospitalIn the event this information is protected by the Federal Confidentiality of Alcohol and Drug Abuse Patient Records regulations: The Federal rules restrict any use of the information to criminally investigate or prosecute any alcohol or drug abuse patient.[facility] HospitalIn the event this information is protected by the Federal Confidentiality of Alcohol and Drug Abuse Patient Records regulations: The Federal rules restrict any use of the information to criminally investigate or prosecute any alcohol or drug abuse patient.[facility] HospitalIn the event this information is protected by the Federal Confidentiality of Alcohol and Drug Abuse Patient Records regulations: The Federal rules restrict any use of the information to criminally investigate or prosecute any alcohol or drug abuse patient.[facility] HospitalIn the event this information is protected by the Federal Confidentiality of Alcohol and Drug Abuse Patient Records regulations: The Federal rules restrict any use of the information to criminally investigate or prosecute any alcohol or drug abuse patient.[facility] HospitalIn the event this information is protected by the Federal Confidentiality of Alcohol and Drug Abuse Patient Records regulations: The Federal rules restrict any use of the information to criminally investigate or prosecute any alcohol or drug abuse patient.[facility] HospitalIn the event this information is protected by the Federal Confidentiality of Alcohol and Drug Abuse Patient Records regulations: The Federal rules restrict any use of the information to criminally investigate or prosecute any alcohol or drug abuse patient.[facility] HospitalIn the event this information is protected by the Federal Confidentiality of Alcohol and Drug Abuse Patient Records regulations: The Federal rules restrict any use of the information to criminally investigate or prosecute any alcohol or drug abuse patient.[facility] HospitalIn the event this information is protected by the Federal Confidentiality of Alcohol and Drug Abuse Patient Records regulations: The Federal rules restrict any use of the information to criminally investigate or prosecute any alcohol or drug abuse patient.[facility] HospitalIn the event this information is protected by the Federal Confidentiality of Alcohol and Drug Abuse Patient Records regulations: The Federal rules restrict any use of the information to criminally investigate or prosecute any alcohol or drug abuse patient.[facility] HospitalIn the event this information is protected by the Federal Confidentiality of Alcohol and Drug Abuse Patient Records regulations: The Federal rules restrict any use of the information to criminally investigate or prosecute any alcohol or drug abuse patient.[facility] HospitalIn the event this information is protected by the Federal Confidentiality of Alcohol and Drug Abuse Patient Records regulations: The Federal rules restrict any use of the information to criminally investigate or prosecute any alcohol or drug abuse patient.[facility] HospitalIn the event this information is protected by the Federal Confidentiality of Alcohol and Drug Abuse Patient Records regulations: The Federal rules restrict any use of the information to criminally investigate or prosecute any alcohol or drug abuse patient.[facility] HospitalIn the event this information is protected by the Federal Confidentiality of Alcohol and Drug Abuse Patient Records regulations: The Federal rules restrict any use of the information to criminally investigate or prosecute any alcohol or drug abuse patient.[facility] HospitalIn the event this information is protected by the Federal Confidentiality of Alcohol and Drug Abuse Patient Records regulations: The Federal rules restrict any use of the information to criminally investigate or prosecute any alcohol or drug abuse patient.[facility] HospitalIn the event this information is protected by the Federal Confidentiality of Alcohol and Drug Abuse Patient Records regulations: The Federal rules restrict any use of the information to criminally investigate or prosecute any alcohol or drug abuse patient.[facility] HospitalIn the event this information is protected by the Federal Confidentiality of Alcohol and Drug Abuse Patient Records regulations: The Federal rules restrict any use of the information to criminally investigate or prosecute any alcohol or drug abuse patient.[facility] HospitalIn the event this information is protected by the Federal Confidentiality of Alcohol and Drug Abuse Patient Records regulations: The Federal rules restrict any use of the information to criminally investigate or prosecute any alcohol or drug abuse patient.[facility] HospitalIn the event this information is protected by the Federal Confidentiality of Alcohol and Drug Abuse Patient Records regulations: The Federal rules restrict any use of the information to criminally investigate or prosecute any alcohol or drug abuse patient.[facility] HospitalIn the event this information is protected by the Federal Confidentiality of Alcohol and Drug Abuse Patient Records regulations: The Federal rules restrict any use of the information to criminally investigate or prosecute any alcohol or drug abuse patient.[facility] HospitalIn the event this information is protected by the Federal Confidentiality of Alcohol and Drug Abuse Patient Records regulations: The Federal rules restrict any use of the information to criminally investigate or prosecute any alcohol or drug abuse patient.[facility] HospitalIn the event this information is protected by the Federal Confidentiality of Alcohol and Drug Abuse Patient Records regulations: The Federal rules restrict any use of the information to criminally investigate or prosecute any alcohol or drug abuse patient.[facility] HospitalIn the event this information is protected by the Federal Confidentiality of Alcohol and Drug Abuse Patient Records regulations: The Federal rules restrict any use of the information to criminally investigate or prosecute any alcohol or drug abuse patient.[facility] HospitalIn the event this information is protected by the Federal Confidentiality of Alcohol and Drug Abuse Patient Records regulations: The Federal rules restrict any use of the information to criminally investigate or prosecute any alcohol or drug abuse patient.[facility] HospitalIn the event this information is protected by the Federal Confidentiality of Alcohol and Drug Abuse Patient Records regulations: The Federal rules restrict any use of the information to criminally investigate or prosecute any alcohol or drug abuse patient.[facility] HospitalIn the event this information is protected by the Federal Confidentiality of Alcohol and Drug Abuse Patient Records regulations: The Federal rules restrict any use of the information to criminally investigate or prosecute any alcohol or drug abuse patient.[facility] HospitalIn the event this information is protected by the Federal Confidentiality of Alcohol and Drug Abuse Patient Records regulations: The Federal rules restrict any use of the information to criminally investigate or prosecute any alcohol or drug abuse patient.[facility] HospitalIn the event this information is protected by the Federal Confidentiality of Alcohol and Drug Abuse Patient Records regulations: The Federal rules restrict any use of the information to criminally investigate or prosecute any alcohol or drug abuse patient.[facility] Reason for Visit (unrecogniz ed section and content) Reason Comments Established Patient Specialty Diagnoses / Procedures Referred By Zack Referred To Contact Diagnoses Malignant neoplasm of prostate (HCC) Bone metastases Procedures LEUPROLIDE ACETATE SUSPNSION Bree Cornejo APRN.ASSISTANT DESIGNER [address] [place] [address] [facility] [address] [place] [address] Referral ID Status Reason Start Date Expiration Date V isits Requested Visits Authorized [id number] Authorized 04/27/2022 06/21/2024 99 99 Reason Comments [...] Treatment Specialty Diagnoses / Procedures [facility] Referred To Contact Diagnoses Malignant neoplasm of prostate (HCC) Bone metastases (HCC) Procedures INJECTION, ZOLEDRONIC ACID, 1 MG Aparna Becerra MD [address] [place] [address] [facility] [address] [place] [address] Referral ID Status Reason Start Date Expiration Date V isits Requested Visits Authorized [id number] Authorized 10/08/2021 03/19/2022 99 99 Reason Comments [...] Expiration Date V isits Requested Visits Authorized [id number] Authorized 10/08/2021 03/19/2023 99 99 Reason Comments Results Reason Onset Date Comments SPP Oral Oncology/hematology - Medication Refill 04/28/2022 Erleada 60mg Reason Comments Imm/Inj Specialty Diagnoses / Procedures Referred By [facility] Referred To Contact Diagnoses Malignant neoplasm of prostate (HCC) Bone metastases (HCC) Procedures LEUPROLIDE ACETATE SUSPNSION Bree Cornejo APRN.ASSISTANT DESIGNER [address] [place] [address] [facility] [address] [place] [address] Referral ID Status Reason Start Date Expiration Date V isits Requested Visits Authorized [id number] Authorized 04/27/2022 10/26/2022 99 99 Specialty Diagnoses / Procedures Referred By [facility] Referred To Contact Diagnoses Malignant neoplasm of prostate (HCC) Bone metastases (HCC) Procedures INJECTION, ZOLEDRONIC ACID, 1 MG Bree Cornejo, SUSHIL.ASSISTANT DESIGNER [address] [place] [address] [facility] [address] [place] [address] Referral ID Status Reason Start Date Expiration Date V isits Requested Visits Authorized [id number] Authorized 04/27/2022 03/19/2023 99 99 Reason Onset Date Comments SPP Oral Oncology/hematology - Medication Refill 06/13/2022 Erleada Reason Comments Patient Update Symptoms Reason Comments Patient Update Weakness Reason Comments Care Coordination patient update-weakn ess Reason Comments Orders Specialty Diagnoses / Procedures Referred By [facility] Referred To Contact Diagnoses Malignant neoplasm of prostate (HCC) Bone metastases Procedures INJECTION, ZOLEDRONIC ACID, 1 MG Bree Cornejo, ELECTRONIC PREPRESS OPERATOR.ASSISTANT DESIGNER [address] [place] [address] [facility] [address] [place] [address] Referral ID Status Reason Start Date Expiration Date V isits Requested Visits Authorized [id number] Authorized 04/27/2022 04/25/2023 99 99 Reason Comments Appointment Reason Onset Date Comments Refill Request 01/30/2023 Reason Comments medication questions Referral ID Status Reason Start Date Expiration Date V isits Requested Visits Authorized [id number] Authorized 04/27/2022 03/19/2024 99 99 Reason Comments Prostate Cancer Follow Up Urinary Urgency Referral ID Status Reason Start Date Expiration Date V isits Requested Visits Authorized [id number] Authorized 04/27/2022 03/19/2025 99 99 Reason Comments 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 Reason Comments New Patient C/o loss of balance, weakness, falling, has done PT, pt states it's more of his knees that are weak Specialty Diagnoses / Procedures Referred By Zack alexander Referred To Contact Neurology Diagnoses Loss of balance Procedures CONSULT TO NEUROLOGY OFFICE/[facility] [address] [place] [address] [place] [address] Phone: tel: fax: Referral ID Status Reason Start Date Expiration Date V isits Requested Visits Authorized [id number] Closed PCP Requested Referral 03/05/2024 03/05/2025 1 1 Reason Comments Chemotherapy Treatment Specialty Diagnoses / Procedures Referred By Zack alexander Referred To Contact Diagnoses Malignant neoplasm of prostate (HCC) Bone metastases Procedures INJECTION, ZOLEDRONIC ACID, 1 MG Bree Cornejo, ELECTRONIC PREPRESS OPERATOR.ASSISTANT DESIGNER [address] [place] [address] Phone: tel: fax: Hematology/Oncology [address] [place] [address] Phone: tel: fax: Reason Comments New Patient Recurrent falls Referral ID Status Reason Start Date Expiration Date Visits Re quested Visits Authorized [id number] Closed 04/27/2022 03/19/2025 99 99 Specialty Diagnoses / Procedures Referred By Zack t Referred To Contact Diagnoses Malignant neoplasm 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) Malignant neoplasm of prostate (HCC) Procedures LEUPROLIDE ACETATE SUSPNSION Bree Cornejo, SUSHIL.ASSISTANT DESIGNER [address] [place] [address] Phone: tel: fax: Bree Cornejo, SUSHIL.ASSISTANT DESIGNER [address] [place] [address] Phone: tel: fax: Referral ID Status Reason Start Date Expiration Date V isits Requested Visits Authorized [id number] Authorized 08/22/2024 07/24/2025 99 99 Reason Comments Cardiac Valve Problem New Patient [facility] Specialty Diagnoses / Procedures Referred By Zack Referred To Contact Interventional Cardiology / Cardiology Diagnoses 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 tOto Subramanian MD Referring Provider Active St art: June 27, 2024 End: June 27, 2024 Freddie Lee PA, PA Attending Provider Active Start: June 27, 2024 End: June 27, 2024 Team Status: Inactive Member Role Status Dates Dr. Otto Subramanian MD Primary Care Provider Active Start: June 27, 2024 End: June 27, 2024 Freddie Lee PA, PA Attending Provider Active Start: June 27, 2024 End: June 27, 2024 Freddie Lee PA, PA Referring Provider Active Start: June 27, 2024 End: June 27, 2024 Drop Clipper Relationship Specialty Start Date End Date Cem Arzate David PCP - General 03/21/02 Drop Clipper Relationship Specialty Start Date End Date Cem Arzate David PCP - General 03/21/02 Drop Clipper Relationship Specialty Start Date End Date Cem Arzate David PCP - General 03/21/02 Drop Clipper Relationship Specialty Start Date End Date Cem Arzate David PCP - General 03/21/02 Drop Clipper Relationship Specialty Start Date End Date Cem Arzate David PCP - General 03/21/02 Drop Clipper Relationship Specialty Start Date End Date Cem Arzate David PCP - General 03/21/02 Irene Florentino RN [address] [place], [place] [address] Specialty Retort Press Operator Hematology/Oncology 10/13/21 Drop Clipper Relationship Specialty Start Date End Date Cem Arzate David PCP - General 03/21/02 Irene Florentino RN [address] [place], [place] [address] Specialty Retort Press Operator Hematology/Oncology 10/13/21 Drop Clipper Relationship Specialty Start Date End Date Cem Arzate David PCP - General 03/21/02 Irene Florentino RN [address] [place], [place] [id number] Specialty Retort Press Operator Hematology/Oncology 10/13/21 Drop Clipper Relationship Specialty Start Date End Date Cem Arzate PCP - General 03/21/02 Irene Florentino, RN [address] [place] [address] Specialty Retort Press Operator Hematology/Oncology 10/13/21 Drop Clipper Relationship Specialty Start Date End Date Cem Arzate PCP - General 03/21/02 Irene Florentino RN [address] [place] [address] Specialty Retort Press Operator Hematology/Oncology 10/13/21 Drop Clipper Relationship Specialty Start Date End Date Cem Arzate PCP - General 03/21/02 Irene Florentino RN [address] [place] [address] Specialty Retort Press Operator Hematology/Oncology 10/13/21 Drop Clipper Relationship Specialty Start Date End Date Cem Arzate PCP - General 03/21/02 Irene Florentino RN [address] [place] [address] Specialty Retort Press Operator Hematology/Oncology 10/13/21 Drop Clipper Relationship Specialty Start Date End Date Cem Arzate PCP - General 03/21/02 Irene Florentino, MELINDA [address] [place] [address] Specialty Retort Press Operator Hematology/Oncology 10/13/21 Drop Clipper Relationship Specialty Start Date End Date Cem Arzate PCP - General 03/21/02 Irene Florentino, RN [address] [place] [address] Specialty Retort Press Operator Hematology/Oncology 10/13/21 Drop Clipper Relationship Specialty Start Date End Date Cem Arzate PCP - General 03/21/02 Irene Florentino RN [address] [place] [address] Specialty Retort Press Operator Hematology/Oncology 10/13/21 Drop Clipper Relationship Specialty Start Date End Date Cem Arzate PCP - General 03/21/02 Irene Florentino RN [address] [place] [address] Specialty Retort Press Operator Hematology/Oncology 10/13/21 Drop Clipper Relationship Specialty Start Date End Date Cem Arzate PCP - General 03/21/02 Irene Florentino, RN [address] [place] [address] Specialty Retort Press Operator Hematology/Oncology 10/13/21 Team Status: Active Member Role Status Dates Dr. Otto Subramanian MD Family Provider Active Dr. Otto Subramanian MD Primary Care Provider Active Team Status: Inactive Member Role Status Dates Dr. Otto Subramanian MD Primary Care Provide r, Attending Provider, Referring Provider Active Drop Clipper Relationship Specialty Start Date End Date Cem Arzate PCP - General 03/21/02 Irene Florentino, MELINDA [address] [place] [address] Specialty Retort Press Operator Hematology/Oncology 10/13/21 Drop Clipper Relationship Specialty Start Date End Date Cem Arzate PCP - General 03/21/02 Irene Florentino, MELINDA [address] [place] [address] Specialty Retort Press Operator Hematology/Oncology 10/13/21 Drop Clipper Relationship Specialty Start Date End Date Cem Arzate PCP - General 03/21/02 Irene Florentino, RN [address] [place] [address] Specialty Retort Press Operator Hematology/Oncology 10/13/21 Drop Clipper Relationship Specialty Start Date End Date Cem Arzate PCP - General 03/21/02 Irene Florentino, MELINDA [address] [place] [address] Specialty Retort Press Operator Hematology/Oncology 10/13/21 Team Status: Inactive Member Role Status Dates Dr. Otto Subramanian MD Primary Care Provider Active Dr. Quincy Staton MD Emergency Provider Active Drop Clipper Relationship Specialty Start Date End Date Cem Arzate PCP - General 03/21/02 Irene Florentino, RN [address] [place] [address] Specialty Retort Press Operator Hematology/Oncology 10/13/21 Drop Clipper Relationship Specialty Start Date End Date Cem Arzate PCP - General 03/21/02 Irene Florentino, MELINDA [address] [place] [address] Specialty Retort Press Operator Hematology/Oncology 10/13/21 Drop Clipper Relationship Specialty Start Date End Date Cem Arzate PCP - General 03/21/02 Irene Florentino, MELINDA [address] [place] [address] Specialty Retort Press Operator Hematology/Oncology 10/13/21 Team Status: Inactive Member Role Status Dates Dr. tOto Subramanian MD Primary Care Provider Active Dr. Quincy Staton MD Attending Provider, Emergency Pro vider Active Team Status: Inactive Member Role Status Dates Dr. Otto Subramanian MD Primary Care Provider, Attending Norm neumann Active Freddie Lee PA, PA Other Provider Active Randy Vann REGISTERED NURSE FIRST ASSISTANT, REGISTERED NURSE FIRST ASSISTANT-C Other Provider Active Dr. Denilson Fernandes DO Other Provider Active Drop Clipper Relationship Specialty Start Date End Date Cem Arzate PCP - General 03/21/02 Irene Florentino, MELINDA [address] [place] [address] Specialty Retort Press Operator Hematology/Oncology 10/13/21 Drop Clipper Relationship Specialty Start Date End Date Cem Arzate PCP - General 03/21/02 Irene Florentino, MELINDA [address] [place] [address] Specialty Retort Press Operator Hematology/Oncology 10/13/21 Team Status: Inactive Member Role Status Dates Dr. Otto Subramanian MD Primary Care Provider Active Dr. Marcos Ferraro , Emergency Provider Active Team Status: Inactive Member Role Status Dates Dr. Otto Subramanian MD Primary Care Provider Active Dr. Alex Zuñiga , Emergency Provider Active Drop Clipper Relationship Specialty Start Date End Date Cem Arzate PCP - General 03/21/02 Irene Florentino, MELINDA [address] [place] [address] Specialty Retort Press Operator Hematology/Oncology 10/13/21 Drop Clipper Relationship Specialty Start Date End Date Cem Arzate PCP - General 03/21/02 Irene Florentino, MELINDA [address] [place] [address] Specialty Retort Press Operator Hematology/Oncology 10/13/21 Drop Clipper Relationship Specialty Start Date End Date Cem Arzate PCP - General 03/21/02 Irene Florentino RN [address] [place] [address] Specialty Retort Press Operator Hematology/Oncology 10/13/21 Everett Aldrich MD [address] [place] [address] Hematology/Oncology 10/24/22 Drop Clipper Relationship Specialty Start Date End Date Cem Arzate PCP - General 03/21/02 Irene Florentino, MELINDA [address] [place] [address] Specialty Retort Press Operator Hematology/Oncology 10/13/21 Everett Aldrich MD [address] [place] [address] Hematology/Oncology 10/24/22 Drop Clipper Relationship Specialty Start Date End Date Otto Subramanian MD [address] [place] [address] PCP - General Family Medicine 01/12/23 Irene Florentino, RN [address] [place] [address] Specialty Retort Press Operator Hematology/Oncology 10/13/21 Everett Aldrich MD [address] [place] [address] Hematology/Oncology 10/24/22 Drop Clipper Relationship Specialty Start Date End Date Otto Subramanian MD [address] [place] [address] PCP - General Family Medicine 01/12/23 Irene Florentino, MELINDA [address] [place] [address] Specialty Retort Press Operator Hematology/Oncology 10/13/21 Everett Aldrich MD [address] [place] [address] Hematology/Oncology 10/24/22 Drop Clipper Relationship Specialty Start Date End Date Otto Subramanian MD [address] [place] [address] PCP - General Family Medicine 01/12/23 Irene Florentino, MELINDA [address] [place] [address] Specialty Retort Press Operator Hematology/Oncology 10/13/21 Everett Aldrich MD [address] [place] [address] Hematology/Oncology 10/24/22 Team Status: Inactive Member Role Status Dates Dr. Otto Subramanian MD Primary Care Provider, Referring P rovider Active Riri Peralta REGISTERED NURSE FIRST ASSISTANT, REGISTERED NURSE FIRST ASSISTANT-C Attending Provider Active Team Status: Active Member Role Status Dates Dr. Otto Subramanian MD Primary Care Provider Active Dr. Osman Bui MD Attending Provider Active Team Status: Active Member Role Status Dates Dr. Otto Subramanian MD Primary Care Provider Active Riri Peralta REGISTERED NURSE FIRST ASSISTANT, REGISTERED NURSE FIRST ASSISTANT-C Attending Provider Active Team Status: Inactive Member Role Status Dates Dr. Otto Subramanian MD Primary Care Provider Active Riri Peralta REGISTERED NURSE FIRST ASSISTANT, REGISTERED NURSE FIRST ASSISTANT-C Attending Provider, Referring P rovider Active Team Status: Active Member Role Status Dates Dr. Otto Subramanian MD Primary Care Provider Active Dr. Marquise Hart MD Attending Provider Active Riri Peralta REGISTERED NURSE FIRST ASSISTANT, REGISTERED NURSE FIRST ASSISTANT-C Referring Provider Active Drop Clipper Relationship Specialty Start Date End Date Otto Subramanian MD [address] [facility] [address] [place] [address] PCP - General Family Medicine 01/12/23 Irene Florentino RN [address] [place] [address] Specialty Retort Press Operator Hematology/Oncology 10/13/21 Everett Aldrich MD [address] [place] [address] Hematology/Oncology 10/24/22 Drop Clipper Relationship Specialty Start Date End Date Otto Subramanian MD [address] [place] [address] PCP - General Family Medicine 01/12/23 Irene Florentino, MELINDA [address] [place] [address] Specialty Retort Press Operator Hematology/Oncology 10/13/21 Everett Aldrich MD [address] [place] [address] Hematology/Oncology 10/24/22 Drop Clipper Relationship Specialty Start Date End Date Otto Subramanian MD [address] [place] [address] PCP - General Family Medicine 01/12/23 Irene Florentino, MELINDA [address] [place] [address] Specialty Retort Press Operator Hematology/Oncology 10/13/21 Everett Aldrich MD [address] [place] [address] Hematology/Oncology 10/24/22 Drop Clipper Relationship Specialty Start Date End Date Otto Subramanian MD [address] [place] [address] PCP - General Family Medicine 01/12/23 Irene Florentino, MELINDA [address] [place] [address] Specialty Retort Press Operator Hematology/Oncology 10/13/21 Everett Aldrich MD [address] [place] [address] Hematology/Oncology 10/24/22 Drop Clipper Relationship Specialty Start Date End Date Otto Subramanian MD [address] [place] [address] PCP - General Family Medicine 01/12/23 Irene Florentino, MELINDA [address] [place] [address] Specialty Retort Press Operator Hematology/Oncology 10/13/21 Everett Aldrich MD [address] [place] [address] Hematology/Oncology 10/24/22 Drop Clipper Relationship Specialty Start Date End Date Otto Subramanian MD [address] [place] [address] PCP - General Family Medicine 01/12/23 Irene Florentino RN [address] [place] [address] Specialty Retort Press Operator Hematology/Oncology 10/13/21 Everett Aldrich MD [address] [place] [address] Hematology/Oncology 10/24/22 Drop Clipper Relationship Specialty Start Date End Date Otto Subramanian MD [address] [place] [address] PCP - General Family Medicine 01/12/23 Irene Florentino RN [address] [place] [address] Specialty Retort Press Operator Hematology/Oncology 10/13/21 Everett Aldrich MD [address] [place] [address] Hematology/Oncology 10/24/22 Drop Clipper Relationship Specialty Start Date End Date Otto Subramanian MD [address] [place] [address] PCP - General Family Medicine 01/12/23 Irene Florentino, MELINDA [address] [place] [address] Specialty Retort Press Operator Hematology/Oncology 10/13/21 Everett Aldrich MD [address] [place] [address] Hematology/Oncology 10/24/22 Drop Clipper Relationship Specialty Start Date End Date Otto Subramanian MD [address] [place] [address] PCP - General Family Medicine 01/12/23 Irene Florentino RN [address] [place] [address] Specialty Retort Press Operator Hematology/Oncology 10/13/21 Everett Aldrich MD [address] [place] [address] Hematology/Oncology 10/24/22 Drop Clipper Relationship Specialty Start Date End Date Otto Subramanian MD [address] [place] [address] PCP - General Family Medicine 01/12/23 Irene Florentino RN [address] [place] [address] Specialty Retort Press Operator Hematology/Oncology 10/13/21 Everett Aldrich MD [address] [place] [address] Hematology/Oncology 10/24/22 Drop Clipper Relationship Specialty Start Date End Date Otto Subramanian MD [address] [place] [address] PCP - General Family Medicine 01/12/23 Irene Florentino, RN [address] [place] [address] Specialty Retort Press Operator Hematology/Oncology 10/13/21 Everett Aldrich MD [address] [place] [address] Hematology/Oncology 10/24/22 Drop Clipper Relationship Specialty Start Date End Date Otto Subramanian MD [address] [facility] [address] [place] [address] PCP - General Family Medicine 01/12/23 Irene Florentino RN [address] [place] [address] Specialty Retort Press Operator Hematology/Oncology 10/13/21 Everett Aldrich MD [address] [place] [address] Hematology/Oncology 10/24/22 Drop Clipper Relationship Specialty Start Date End Date Otto Subramanian MD [address] [place] [address] PCP - General Family Medicine 01/12/23 Irene Florentino RN [address] [place] [address] Specialty Retort Press Operator Hematology/Oncology 10/13/21 Everett Aldrich MD [address] [place] [address] Hematology/Oncology 10/24/22 Team Status: Active Member Role Status Dates Dr. Otto Subramanian MD Primary Care Provider Active Start: May 23, 2024 Dr. Otto Subramanian MD Attending Provider Active St art: May 23, 2024 Drop Clipper Relationship Specialty Start Date End Date Otto Subramanian MD [address] [place], [place] [address] PCP - General Family Medicine 01/12/23 Irene Florentino, MELINDA [address], [place] [address] Specialty Retort Press Operator Hematology/Oncology 10/13/21 Everett Aldrich MD [address], [place] [id number] Hematology/Oncology 10/24/22 Team Status: Active Member Role/Relationship [...] June 27, 2024 End: June 27, 2024 Freddie SALAZAR, PA Attending Provider Active Start: June 27, 2024 End: June 27, 2024 Team Status: Inactive Member Role/Relationship Status Dates Dr. Otto Subramanian MD Primary Care Provider Active Start: June 27, 2024 End: June 27, 2024 Freddie SALAZAR, PA Attending Provider Active Start: June 27, 2024 End: June 27, 2024 Freddie Lee PA, PA Referring Provider Active Start: June 27, 2024 End: June 27, 2024 Team Status: Inactive Member Role/Relationship Status Dates Dr. Otto Subramanian MD Primary Care Provider Active Start: September 12, 2024 End: September 12, 2024 Freddie Lee PA, PA Attending Provider Active Start: September 12, 2024 End: September 12, 2024 Freddie Lee PA, PA Referring Provider Active Start: September 12, 2024 End: September 12, 2024 Team Status: Active Member Role/Relationship Status Dates Dr. Otto Subramanian MD Primary Care Provider Active Start: September 12, 2024 Freddie Lee PA, PA Referring Provider Active Start: September 12, 2024 Freddie Lee PA, PA Other Provider Active Start: [...] Care Provider Active Start: September 16, 2024 Freddie Lee PA, PA Attending Provider Active Start: September 16, 2024 Freddie Lee PA, PA Referring Provider Active Start: September 16, 2024 Team Status: Inactive Member Role/Relationship Status Dates Dr. Otto Subramanian MD Primary Care Provider Active Start: September 16, 2024 End: September 16, 2024 Freddie Lee PA, PA Attending Provider Active Start: September 16, 2024 End: September 16, 2024 Freddie Lee PA, PA Referring Provider Active Start: September 16, 2024 End: September 16, 2024 Team Status: Inactive Member Role/Relationship Status Dates Dr. Otto Subramanian MD Primary Care Provider Active Start: June 27, 2024 End: June 27, 2024 Dr. Otto Subramanian MD Referring Provider Active St art: June 27, 2024 End: June 27, 2024 Freddie Lee PA, PA Attending Provider Active Start: June 27, 2024 End: June 27, 2024 Team Status: Inactive Member Role/Relationship Status Dates Dr. Otto Subramanian MD Primary Care Provider Active Start: June 27, 2024 End: June 27, 2024 Freddie Lee PA, PA Attending Provider Active Start: June 27, 2024 End: June 27, 2024 Freddie Lee PA, PA Referring Provider Active Start: June 27, 2024 End: June 27, 2024 Team Status: Inactive Member Role/Relationship Status Dates Dr. Otto Subramanian MD Primary Care Provider Active Start: September 12, 2024 End: September 12, 2024 Freddie Lee PA, PA Attending Provider Active Start: September 12, 2024 End: September 12, 2024 Freddie Lee PA, PA Referring Provider Active Start: September 12, 2024 End: September 12, 2024 Team Status: Active Member Role/Relationship Status Dates Dr. Otto Subramanian MD Primary Care Provider Active Start: September 12, 2024 Freddie Lee PA, PA Referring Provider Active Start: September 12, 2024 Freddie Lee PA, PA Other Provider Active Start: [...] September 16, 2024 End: September 16, 2024 Freddie Lee PA, PA Attending Provider Active Start: September 16, 2024 End: September 16, 2024 Freddie Lee PA, PA Referring Provider Active Start: September 16, 2024 End: September 16, 2024 Team Status: Inactive Member Role/Relationship Status Dates Dr. Otto Subramanian MD Primary Care Provider Active Start: September 26, 2024 End: September 26, 2024 Dr. Otto Subramanian MD Referring Provider Active St art: September 26, 2024 End: September 26, 2024 Riri Peralta REGISTERED NURSE FIRST ASSISTANT, REGISTERED NURSE FIRST ASSISTANT-C Attending Provider Active Start: September 26, 2024 End: September 26, 2024 Team Status: Inactive Member Role/Relationship Status Dates Dr. Otto Subramanian MD Primary Care Provider Active Start: September 29, 2024 End: September 29, 2024 Dr. Otto Subramanian MD Referring Provider Active St art: September 29, 2024 End: September 29, 2024 Freddie Lee PA, PA Attending Provider Active Start: September 29, 2024 End: September 29, 2024 Team Status: Inactive Member Role/Relationship Status Dates Dr. Otto Subramanian MD Primary Care Provider Active Start: October 07, 2024 End: October 07, 2024 Dr. Osman Bui MD Attending Provider Active S tart: October 07, 2024 End: October 07, 2024 Dr. Osman Bui MD Referring Provider Active S tart: October 07, 2024 End: October 07, 2024 Team Status: Inactive Member Role/Relationship Status Dates Dr. Otto Subramanian MD Primary Care Provider Active Start: September 12, 2024 End: September 12, 2024 Freddie Lee PA, PA Attending Provider Active Start: September 12, 2024 End: September 12, 2024 Freddie Lee PA, PA Referring Provider Active Start: September 12, 2024 End: September 12, 2024 Team Status: Active Member Role/Relationship Status Dates Dr. Otto Subramanian MD Primary Care Provider Active Start: September 12, 2024 Freddie Lee PA, PA Referring Provider Active Start: September 12, 2024 Freddie Lee PA, PA Other Provider Active Start: [...] September 16, 2024 End: September 16, 2024 Freddie Lee PA, PA Attending Provider Active Start: September 16, 2024 End: September 16, 2024 Freddie Lee PA, PA Referring Provider Active Start: September 16, 2024 End: September 16, 2024 Team Status: Inactive Member Role/Relationship Status Dates Dr. Otto Subramanian MD Primary Care Provider Active Start: September 26, 2024 End: September 26, 2024 Dr. Otto Subramanian MD Referring Provider Active St art: September 26, 2024 End: September 26, 2024 Riri Peralta REGISTERED NURSE FIRST ASSISTANT, REGISTERED NURSE FIRST ASSISTANT-C Attending Provider Active Start: September 26, 2024 End: September 26, 2024 Team Status: Inactive Member Role/Relationship Status Dates Dr. Otto Subramanian MD Primary Care Provider Active Start: September 29, 2024 End: September 29, 2024 Dr. Otto Subramanian MD Referring Provider Active St art: September 29, 2024 End: September 29, 2024 Freddie Lee PA, PA Attending Provider Active Start: September 29, 2024 End: September 29, 2024 Team Status: Inactive Member Role/Relationship Status Dates Dr. Otto Subramanian MD Primary Care Provider Active Start: October 07, 2024 End: October 07, 2024 Dr. Osman Bui MD Attending Provider Active S tart: October 07, 2024 End: October 07, 2024 Dr. Osman Bui MD Referring Provider Active S tart: October 07, 2024 End: October 07, 2024 Team Status: Inactive Member Role/Relationship Status Dates Dr. Otto Subramanian MD Primary Care Provider Active Start: November 04, 2024 End: November 04, 2024 Dr. Marcos Mendez MD Attending Provider Active Start: November 04, 2024 End: November 04, 2024 Dr. 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 Operator Hematology/Oncology 10/13/21 Everett Aldrich MD [address] [place] [address] Hematology/Oncology 10/24/22 Drop Clipper Relationship Specialty Start Date End Date Otto Subramanian [address] [place] [id number] PCP - General Family Medicine 11/26/24 Drop Clipper Relationship Specialty Start Date End Date Otto Subramanian [address] [place] [phone] PCP - General Family Medicine 11/26/24 Drop Clipper Relationship Specialty Start Date End Date Otto Subramanian [address] [place] [phone] PCP - General Family Medicine 11/26/24 Drop Clipper Relationship Specialty Start Date End Date Otto Subramanian [address] [place] [phone] PCP - General Family Medicine 11/26/24 Drop Clipper Relationship Specialty Start Date End Date Otto Subramanian [address] [place] [phone] PCP - General Family Medicine 11/26/24 Drop Clipper Relationship Specialty Start Date End Date Otto Subramanian [address] [place] [phone] PCP - General Family Medicine 11/26/24 Team Status: Active Member Role/Relationship Status Dates Dr. Otto Subramanian MD Primary care physician Active Team Status: Active Member Role/Relationship Status Dates Dr. Otto Subramanian MD Primary care physician Active Start: September 16, 2024 Dr. Osman Bui MD Attending physician Active Start: September 16, 2024 Team Status: Inactive Member Role/Relationship Status Dates Dr. Otto Subramanian MD Primary care physician Active Start: September 16, 2024 End: September 16, 2024 Freddie SALAZAR PA Attending physician Active Start: September 16, 2024 End: September 16, 2024 MARIE Martinez Referring Provider Active Start: September 16, 2024 End: September 16, 2024 Team Status: Inactive Member Role/Relationship Status Dates Dr. Otto Subramanian MD Primary care physician Active Start: September 26, 2024 End: September 26, 2024 Dr. Otto Subramanian MD Referring Provider Active St art: September 26, 2024 End: September 26, 2024 Riri Peralta REGISTERED NURSE FIRST ASSISTANT, REGISTERED NURSE FIRST ASSISTANT-C Attending physician Active Start: September 26, 2024 End: September 26, 2024 Team Status: Inactive Member Role/Relationship Status Dates Dr. Otto Subramanian MD Primary care physician Active Start: September 29, 2024 End: September 29, 2024 Dr. Otto Subramanian MD Referring Provider Active St art: September 29, 2024 End: September 29, 2024 Freddie SALAZAR PA Attending physician Active Start: September 29, 2024 End: September 29, 2024 Team Status: Inactive Member Role/Relationship Status Dates Dr. Otto Subramanian MD Primary care physician Active Start: October 07, 2024 End: October 07, 2024 Dr. Osman Bui MD Attending physician Active Start: October 07, 2024 End: October 07, 2024 Dr. Osman Bui MD Referring Provider Active S tart: October 07, 2024 End: October 07, 2024 Team Status: Inactive Member Role/Relationship Status Dates Dr. Otto Subramanian MD Primary care physician Active Start: November 04, 2024 End: November 04, 2024 Dr. Marcos Mendez MD Attending physician Active Start: November 04, 2024 End: November 04, 2024 Dr. Marcos Mendez MD Referring Provider Active Start: November 04, 2024 End: November 04, 2024 Team Status: Inactive Member Role/Relationship Status Dates Dr. Otto Subramanian MD Primary care physician Active Start: December 20, 2024 End: December 20, 2024 Dr. Otto Subramanian MD Attending physician Active S tart: December 20, 2024 End: December 20, 2024 Team Status: Inactive Member Role/Relationship Status Dates Dr. Otto Subramanian MD Primary care physician Active Start: January 10, 2025 End: January 10, 2025 Dr. Otto Subramanian MD Referring Provider Active St art: January 10, 2025 End: January 10, 2025 Freddie SALAZAR, PA Attending physician Active Start: January 10, 2025 End: January 10, 2025 Inactive Administered Medications - up to 3 [...] content) No Status Records FoundNo Status Records FoundNo Status Records FoundNo Status Records Found INFORMATION SOURCE (unrecogn ized section and content) DATE CREATED AUTHOR 11/14/2024 [facility] DATE CREATED AUTHOR AUTHOR'S ORGANIZ ATION 01/08/2025 [facility] DATE CREATED AUTHOR AUTHOR'S ORGANIZ ATION 01/20/2025 [facility] DATE CREATED AUTHOR AUTHOR'S ORGANIZ ATION 01/27/2025 [facility] Ce nter Scheduled Active and Recently Administ ered Medications (unrecognized section and content) Medication Order 12/22/2024 12/23/2024 12/24/2024 aspirin EC tablet 81 mg 81 mg, Oral, Daily, First dose on Mon12/23/24 at 1645, Do not crush, chew, or split. 1718 (Given - Provider: Brittni Gibson RN) 0821 (Given - Provider: Crissy Latham RN) atorvastatin (Lipitor) tablet 20 mg 20 mg, Oral, Nightly, First dose on Mon12/23/24 at 2100 1956 (Given - Provider: Imtiaz Thomas RN) ceFAZolin (Ancef) 2,000 mg in sodium chloride 0.9 % 100 mL IVPB (COMPLETED) 2,000 mg, IntraVENous, at 200 mL/hr, Administer over 30 Minutes, Once, On Mon12/23/24 at 1230, For 1 dose, Preprocedure, Administer within 1 hour prior to incision. Recommend to repeat in 3-4 hours after initial dose if still intra-op. Mini-Bag Plus bag, Suspected Indication (Select all that apply): Surgical Prophylaxis 1442 (New Bag - Provider: Tim Flower CRNA) cetirizine (ZyrTEC) tablet 5 mg (COMPLETED) 5 mg, Oral, Once, On Mon12/24/24 at 0230, For 1 dose 0229 (Given - Provid er: Imtiaz Thomas RN) hydroCHLOROthiazide (HYDRODiuril) tablet 12.5 mg 12.5 mg, Oral, Daily, First dose on Mon12/23/24 at 1645, Hold for SBP less than 120 12/23 1718 (Not Given - Provider: Brittni Gibson RN - Reason: Order parameters not met) 0820 (Not Given - Provider: Crissy Latham RN - Reason: Order parameters not met - Comment: 119/60) losartan (Cozaar) tablet 25 mg 25 mg, Oral, Daily, First dose on Mon12/23/24 at 1645, Hold for SBP less than 120 on 12/23 1718 (Not Given - Provider: Brittni Gibson RN - Reason: Order parameters not met) 0821 (Given - Provider: Crissy Latham RN) magnesium oxide (Mag-Ox) tablet 400 mg 400 mg, Oral, Daily, First dose on Mon12/23/24 at 1645 1718 (Given - Provider: Brittni Gibson RN) 0821 (Given - Provider: Crissy Latham RN) metoprolol tartrate (Lopressor) tablet 25 mg 25 mg, Oral, 2 times daily, First dose on Mon12/23/24 at 2100 195 (Given - Provider: Imtiaz Thomas RN) 0821 (Given - Provider: Crissy Latham RN) mupirocin (Bactroban) 2 % ointment 1 Application 1 Application, Nasal, 2 times daily, First dose on Mon12/23/24 at 2100, For 5 days, Recovery & On Unit, Indications: MRSA Nasal Decolonization 1955 (Given - Provider: Imtiaz Thomas RN) 820 (Given - Provider: Crissy Latham RN) oxyCODONE (Roxicodone) immediate release tablet 5 mg (COMPLETED)(Linked Group 1) 5 mg, Oral, Once, On Mon12/24/24 at 0315, For 1 dose 0336 (Given - Provid er: Imtiaz Thomas RN) potassium chloride CR (Klor-Con M10) ER tablet 40 mEq (COMPLETED) 40 mEq, Oral, Once, On Mon12/23/24 at 2000, For 1 dose, Best given with food and plenty of water to minimize gastric irritation. Do not crush or chew. 1955 (Given - Provider: Imtiaz Thomas RN) Continuous Medication Order 12/22/2024 12/23/2024 12/24/2024 sodium chloride 0.9 % infusion 50 mL/hr, IntraVENous, Continuous, Starting on Mon12/23/24 at 1230, Preprocedure, Upon admission to sameday - please start iv if patient does not have iv access. 1230 (Canceled Entry - Provi jennifer: Automatic Discharge Provider - Comment: Automatically canceled at discontinue of medication order) PRN Medication Order 12/22/2024 12/23/2024 12/24/2024 acetaminophen (Tylenol) tablet 650 mg 650 mg, Oral, Every 4 hours PRN, mild pain (1-3), Fever > 100.5 F (38 C), Starting on Mon12/23/24 at 1642, Recovery & On Unit, Maximum dose of acetaminophen is 4000 mg from all sources in 24 hours. heparin 3,000 Units in sodium chloride 0.9 % 1,500 mL OR irrigation (CANCELED) As needed, Starting on Mon12/23/24 at 1419, Intraprocedure 1419 (Given - Provider: Lashell Salas MD) iodixanol (VISIPaque) 320 MG/ML injection (COMPLETED) Continuous PRN, Starting on Mon12/23/24 at 1536, Intraprocedure 1536 (New Bag - Provider: Lashell Salas MD) lidocaine (Xylocaine) 1 % injection (CANCELED) As needed, Starting on Mon12/23/24 at 1535, Intraprocedure 1535 (Given - Provider: Lashell Salas MD) melatonin tablet 5 mg 5 mg, Oral, Nightly PRN, sleep, Starting on Mon12/24/24 at 0130 0145 (Given - Provid er: Imtiaz Thomas RN) naloxone (Narcan) injection 0.4 mg 0.4 mg, IntraVENous, Every 5 min PRN, opioid reversal, respiratory depression, Starting on Mon12/23/24 at 1644, +++ For RR <10, pinpoint pupils, over sedation for opioid reversal - MUST notify reconnaissance man provider immediately after first dose, may give IM or SQ if no IV access +++ oxyCODONE-acetaminophen (Percocet) 5-325 MG per tablet 1 tablet 1 tablet, Oral, Every 8 hours PRN, moderate pain (4-6), Starting on Mon12/23/24 at 1642, Maximum dose of acetaminophen is 4000 mg from all sources in 24 hours. 1956 (Given - Provider: Imtiaz Thomas, MELINDA) 0821 (Given - Provider: Crissy Latham RN) perflutren protein A microsphere (Optison) 3 mL in sodium chloride (PF) 0.9 % 10 mL IV 0-10 mL, IntraVENous, IMG once PRN, other, Suboptimal echo image, Starting on Mon12/23/24 at 1642, For 1 dose, CV Procedural Medications, Administer via slow IVP for suboptimal echocardiogram enhancement. May administer as divided doses to reach optimal image enhancement Linked Groups Order Group 1: oxyCODONE (Roxicodone) immediate release tablet 5 mg (COMPLETED) 5 mg, Oral, Once, On Mon12/24/24 at 0315, For 1 dose Or oxyCODONE (Roxicodone) immediate release tablet 5 mg (COMPLETED)Jump to med 5 mg, Oral, Once, On Mon12/24/24 at 031, For 1 dose FOR RECORDS PERTAINING TO PATIENTS WHO ARE [...] BE BASED ON THE PRIMARY CLINICAL RECORDS. [facility] [employer] [facility]. provides no warranty or guarantee of the accuracy or completeness of information in this document.
[2025-02-15 10:39] LABS: AST(SGOT) 20 U/L (<=37); Alanine Aminotransfer ALT/SGPT 8 U/L (<=46); Albumin, Serum 3.5 g/dL (3.4-4.8); Alkaline Phosphatase 74 U/L (40-129); Anion Gap 10 (5-15); BUN 17 mg/dL (4-19); BUN/Creat Ratio 18.7 RATIO (10-20); Calcium,Total 8.6 mg/dL (7.6-11.0); Carbon Dioxide 29.4 mmol/L (21.0-32.0); Chloride 101 mmol/L (98-108); Estimated Creatinine Clearance 57.61 ml/min (50-250); Globulin 2.5 g/dL (2.2-4.2); Glucose 115 mg/dL (70-99); Lipase 17 U/L (13-75); Potassium 3.0 mmol/L (3.3-5.1)
[2025-02-15 11:41] VITALS: BP 169/68; PULSE 78; RESP 18; O2SAT 96
[2025-02-15 11:42] LABS: Mucous, Urine 0 SEEN /hpf (<or=2+); Squamous Epithelial Cells - UA 0 SEEN /hpf (0-5)
[2025-02-15 11:44] LABS: Color, Urine Yellow (Yellow); Glucose, Dipstick Normal (Normal); Ketone-Dipstick Negative (Negative); Leukocyte Esterase-Dipstick Negative /ul (Negative); Nitrite-Dipstick Negative (Negative); Occult Blood-Urine 50 /ul (Negative); Protein-Dipstick 30 mg/dl (Negative); Specific Gravity, Urine 1.015 (1.002-1.030); Urine Bilirubin Dipstick Negative (Negative)
[2025-02-15 11:53] LABS: Red Blood Cells-Urine 0-5 SEEN /hpf (0-5)
[2025-02-15] MEDS: Potassium Chloride Oral Tablet 20 MEQ 40 MEQ PO (12:31)
[2025-02-15 12:32] VITALS: BP 170/84; PULSE 85; RESP 20; TEMP 36.6; O2SAT 99
--- NOTE | 2025-02-15 12:51 | ED.RN ---
PT HAVING SEVERE SIDE PAIN AND FEELS LIKE HE HAS TO HAVE A BOWEL MOVEMENT. PT UP TO [facility]SC, STATES UNABLE TO HAVE ANY RESULTS. PT SPITTING ON THE FLOOR.PT STATES HE FEELS LIKE HE HAS TO A A MOVEMENT NOW. PT IV HAS BEEN DC'D. PT TO BE DISCHARGED
[2025-02-15] MEDS: HYDROcodone Bitartrate/Apap 5/325 Tablet PO (13:25)
== END 2025-02-15 13:30 | disposition home or self-care (01) ==
PROVIDERS: Emergency Provider Student in an Organized Health Care Education/Training Program; PCP Family Medicine; Visit Provider Student in an Organized Health Care Education/Training Program
DX: K59.03 Drug induced constipation (principal); I11.0 Hypertensive heart disease with heart failure; I50.32 Chronic diastolic (congestive) heart failure; T40.2X5A Adverse effect of other opioids, initial encounter; S22.42XD Multiple fractures of ribs, left side, subsequent encounter for fracture with routine healing; X58.XXXD Exposure to other specified factors, subsequent encounter; E87.6 Hypokalemia; R10.A2 Flank pain, left side; I25.10 Atherosclerotic heart disease of native coronary artery without angina pectoris; I25.2 Old myocardial infarction; G89.29 Other chronic pain; Z95.5 Presence of coronary angioplasty implant and graft; Z79.82 Long term (current) use of aspirin; Z79.899 Other long term (current) drug therapy; Z79.891 Long term (current) use of opiate analgesic
CPT/HCPCS: 74177; 80053; 81001; 83690; 85025; 93005; 96361; 96374; 96376; 99285; Q9967; A4216

== ENCOUNTER → 2025-02-19 | Outpatient (CLI) | payer MEDICARE, SELFPAY ==
--- OUTSIDE RECORDS SUMMARY | 2025-02-19 17:39 | XMS RPT_ITS | CCD ---
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 [employer] Phone: LVOT Cardiac Output 3.3 liter/mi nut e [employer] Work Phone: LVOT Diameter 1.9 cm [employer] Work Phone: LVOT Mean Gradient 1 mmHg [employer] Work Phone: LVOT Peak Gradient 2 mmHg [employer] Work Phone: LVOT Peak Velocity 0.8 m/s [employer] Phone: LVOT Stroke Volume Index 22 mL/m2 [employer] Work Phone: LVOT SV 42.5 ml [facility] Phone: LVOT VTI 15 cm [employer] Work Phone: LVOT:AV VTI Index 0.41 [facility] Phone: LVPWd 1 cm 0.6 - 1.0 cm [facility] Phone: MV A Velocity 0.7 m/s [facility] Phone: MV E Velocity 0.48 m/s [facility] Phone: MV E Wave Deceleration Time 460.2 ms [facility] Phone: MV E/A 0.69 [facility] Phone: RA Area 4C 25.6 mL [facility] [employer] Phone: RV Basal Dimension 2.5 cm [facility] [employer] Phone: RV Free Wall Peak S' 20 cm/s [facility] [employer] Work Phone: RV Longitudinal Dimension 7.7 cm [facility] [employer] Work Phone: RV Mid Dimension 2 cm [facility] [employer] Phone: Sinotubular Junction 2.9 cm [facility] [employer] Work Phone: TAPSE 2.9 cm 1.7 cm [facility] [employer] Work Phone: [facility] [employer] Phone: Heart Transthoracicon Left Ventricle: Left ventricle [...] on 12-24-2024 Heart rate 79 /min bpm [facility] Work Phone: ABO and Rh group Confirm Nom (Bld)on 12-23-2024 ABO group Nom (Bld) O [facility] D Ag Ql (RBC) Positive [facility] BASIC METABOLIC PANELon 10-0 Anion gap [Moles/Vol] 9 mmol/L Normal 3-13 [facility] Comment on above: Performed By: #### L [id number] #### Snap Shearer: CARLA SOLORZANO ([id number]) [facility] ([facility]) [address] [place] [address] Calcium [Mass/Vol] 8.6 mg/dL Low 8.8-10.0 [facility] Comment on above: Performed By: #### L [id number] #### Snap She[employer]: CARLA SOLORZANO ([id number]) [facility] ([facility]) [address] [place] [address] Chloride [Moles/Vol] 103 mmol/L Normal 98-107 [facility] Comment on above: Performed By: #### L [id number] #### Snap Shearer: CARLA SOLORZANO ([phone]) [facility] ([facility]) [address] [place] [address] CO2 [Moles/Vol] 29 mmol/L Normal 23-31 [facility] Comment on above: Performed By: #### L [id number] #### Snap She[employer]: CARLA SOLORZANO ([id number]) [facility] ([facility]) [address] [place] [address] Creatinine [Mass/Vol] 1.08 mg/dL Normal 0.72-1.25 [facility] Comment on above: Performed By: #### L [id number] #### Snap She[employer]: CARLA SOLORZANO ([id number]) [facility]) [address] [place] [address] GLOMERULAR FILTRATION RATE ML/MIN/1.73 SQ M.PREDICTED 66.0 mL/min/1.73m*2 Normal >60.0 [facility] Comment on above: Result Comment: Calc ulation based on the Chronic Kidney Disease Epidemiology Collaboration (CKD-EPI) equation refit without adjustment for race Performed By: #### L [id number] #### Snap Shearer: CARLA SOLORZANO ([id number]) [facility] ([facility]) [address] [place] [address] Glucose [Mass/Vol] 117 mg/dL High 82-115 [facility] Comment on above: Performed By: #### L [id number] #### Snap Shearer: CARLA SOLORZANO ([id number]) [facility] ([facility]) [address] [place] [address] Potassium [Moles/Vol] 3.0 mmol/L Low 3.5-5.1 [facility] Comment on above: Result Comment: [facility] potassium values may be up to 0.5 mmol/L lower than serum values. Performed By: #### L [id number] #### [employer]: CARLA SOLORZANO ([id number]) [facility] ([facility]) [address] [place] [address] Sodium [Moles/Vol] 141 mmol/L Normal 136-145 [facility] Comment on above: Performed By: #### L [id number] #### Snap Shearer: CARLA SOLORZANO ([phone]) [facility]) [address] [place] [address] Urea nitrogen [Mass/Vol] 28 mg/dL High 9-23 [facility] Comment on above: Performed By: #### L [id number] #### [employer] She[employer]: CARLA SOLORZANO ([id number]) [facility]) [address] [place] [address] BLOOD TYPE AND SCREEN GELon 12-23-2024 ABO GROUPING O Normal [facility] Comment on above: Performed By: #### L [id number] ####Snap Shearer: CARLA SOLORZANO ([phone])[facility] ([facility])[address] [place] [address] RH TYPE IN BLOOD Positive Normal [facility] Comment on above: Performed By: #### L [id number] ####Snap Shearer: CARLA SOLORZANO ([phone])[facility] ([facility])[address] [place] [address] Basic metabolic 1998 panelon 12-23-2024 Anion gap [Moles/Vol] 9 mmol/L 3 - 13 mmol/L [facility] Calcium [Mass/Vol] 8.6 mg/dL Low 8.8 - 10. 0 mg/dL [facility] Chloride [Moles/Vol] 103 mmol/L 98 - 10 7 mmol/L [facility] CO2 [Moles/Vol] 29 mmol/L 23 - 31 mmol/L [facility] Creatinine [Mass/Vol] 1.08 mg/dL 0.72 - 1.25 mg/dL [facility] GFR/1.73 sq M.predicted (S/P/Bld) [Vol rate/Area] 66 mL/min - PINF [facility] Comment on above: Calculation based on the Chronic Kidney Disease Epidemiology Collaboration (CKD-EPI) equation refit without adjustment for race Glucose [Mass/Vol] 117 mg/dL High 82 - 115 mg/dL [facility] Interpretation and review of laboratory results Abnormal [facility] Potassium [Moles/Vol] 3 mmol/L Low 3.5 - 5.1 mmol/L [facility] Comment on above: Plasma potassium lino ues may be up to 0.5 mmol/L lower than serum values. Sodium [Moles/Vol] 141 mmol/L 136 - 145 mmol/L [facility] Urea nitrogen [Mass/Vol] 28 mg/dL High 9 - 23 mg/dL [facility] Blood type and Crossmatch marie pardol (Bld)on 12-23-2024 ABO group Nom (Bld) O [facility] Blood group antibody screen GEL Ql Negative [facility] D Ag Ql (RBC) Positive [facility] CBC (HEMOGRAM)on 12-23-2024 Erythrocyte distribution width (RBC) [Ratio] 13.0 % Normal 11.5-15.0 [facility] Comment on above: Performed By: #### L [id number] #### Snap She[employer]: CARLA SOLORZANO ([id number]) [facility] ([facility]) [address] [place] [address] Hematocrit (Bld) [Volume fraction] 34.4 % Low 40.0-52.0 [facility] Comment on above: Performed By: #### L [id number] #### Snap She[employer]: CARLA SOLORZANO ([id number]) [facility]) [address] [place] [address] Hemoglobin (Bld) [Mass/Vol] 11.5 g/dL Low 13.0-18.0 [facility] Comment on above: Performed By: #### L [id number] #### [employer]: CARLA SOLORZANO ([id number]) [facility] ([facility]) [address] [place] [address] MCH (RBC) [Entitic mass] 32.4 pg Normal 26.0-34.0 [facility] Comment on above: Performed By: #### L [id number] #### [employer]: CARLA SOLORZANO ([id number]) [facility] ([facility]) [address] [place] [address] MCHC 33.4 % Normal 30.5-36.0 [facility] Comment on above: Performed By: #### L [id number] #### [employer]: CARLA SOLORZANO ([id number]) [facility] ([facility]) [address] [place] [address] MCV (RBC) [Entitic vol] 96.9 fL Normal 77.0-99.0 [facility] Comment on above: Performed By: #### L [id number] #### [employer]: CARLA SOLORZANO ([id number]) [facility] ([facility]) [address] [place] [address] Platelet mean volume (Bld) [Entitic vol] 10.4 fL Normal 9.0-12.7 [facility] Comment on above: Performed By: #### L [id number] #### [employer]: CARLA SOLORZANO ([id number]) [facility] ([facility]) [address] [place] [address] Platelets (Bld) [#/Vol] 194 10*3/uL Normal 140-440 [facility] Comment on above: Performed By: #### L [id number] #### [employer]: CARLA SOLORZANO ([id number]) [facility] ([facility]) [address] [place] [address] RBC (Bld) [#/Vol] 3.55 10*6/uL Low 4.40-5.90 [facility] Comment on above: Performed By: #### L [id number] #### [employer]: CARLA SOLORZANO ([id number]) [facility] [address] [place] [address] WBC (Bld) [#/Vol] 8.5 10*3/uL Normal 3.6-10.7 [facility] Comment on above: Performed By: #### L [id number] #### [employer]: CARLA SOLORZANO ([id number]) [facility] ([facility]) [address] [place] [address] CBC panel Auto (Bld)on 12-23 Erythrocyte distribution width (RBC) [Ratio] 13 % 11.5 - 15.0 % [facility] Hematocrit (Bld) [Volume fraction] 34.4 % Low 40.0 - 52.0 % [facility] Hemoglobin (Bld) [Mass/Vol] 11.5 g/dL Low 13.0 - 18.0 g/dL [facility] Interpretation and review of laboratory results Abnormal [facility] MCH (RBC) [Entitic mass] 32.4 pg 26.0 - 34.0 pg [facility] MCHC (RBC) [Mass/Vol] 33.4 % 30.5 - 36.0 % [facility] MCV (RBC) [Entitic vol] 96.9 fL 77.0 - 99.0 fL [facility] Platelet mean volume (Bld) [Entitic vol] 10.4 fL 9.0 - 12.7 fL [facility] Platelets (Bld) [#/Vol] 194 10*3/uL 140 - 440 10*3/uL [facility] RBC (Bld) [#/Vol] 3.55 10*6/uL Low 4.40 - 5.9 0 10*6/uL [facility] WBC (Bld) [#/Vol] 8.5 10*3/uL 3.6 - 10.7 10*3/uL [facility] ECG 12-LEADon 12-23-2024 ECG 12-LEAD IMPRESSION: Sinus rhythm Inferior infarct, old Nonspecific T abnormalities, lateral leads Electronically Signed On 12-23-2024 17:16:13 EDT by Ochoaedgar Grace [employer] [facility] No Panel InformationOrdered By: Gabriela Grace on 12-23-2024 P [place] 27 degrees [employer] Phone: FL Interval 195 ms [employer] Phone: QRS [place] -5 degrees [employer] Phone: QRSD Interval 109 ms [employer] Phone: QT Interval 425 ms [employer] Phone: QTC Interval 482 ms [employer] Phone: T Wave [place] 63 degrees [employer] Phone: [employer] Phone: No Panel Informationon 12-23 Sinus rhythm Inferior infarct, old Nonspecific T abnormalities, lateral leads Electronically Signed On 12-23-2024 17:16:13 EDT by Gabriela Grace CV Gabriela Bolden MD - 12/23/2024 IMPRESSION: Sinus rhythm Inferior infarct, old Nonspecific T abnormalities, lateral leads Electronically Signed On 12-23-2024 17:16:13 EDT by Ochoaedgar Grace [facility] Op Noteon 12-23-2024 Op Note CARDIOTHORACIC SURGERY--OPERATIVE NOTE Date: 12/23/24 Preoperative diagnosis: Severe symptomatic aortic stenosis Chronic diastolic congestive heart failure Frailty Postoperative diagnosis: Severe symptomatic aortic stenosis Chronic diastolic congestive heart failure Frailty Surgeon: Tam Cervantes DO Data Analysis Manager: Lashell Salas MD Bag Presser: Randal Procedure: Transcatheter aortic valve replacement with [...] Tam Cervantes DO FACS Cardiothoracic Surgery Normal [facility] US Heart Transthoracicon Ao Root Index 2.04 cm/m2 [facility] Aortic Root 3.9 cm [facility] Aortic Sinus Valsalva 3.9 cm [facility] Aortic Sinus Valsalva Index 2.04 cm/m2 [facility] Aortic valve Mean systole pressure gradient by US.doppler derived full Bernoulli 5 mmHg [facility] Aortic valve Orifice area by US 3.8 cm2 [facility] Aortic valve Peak systolic flow by US.doppler 1.1 m/s [facility] Ascending Aorta 3.2 cm [facility] Ascending Aorta Index 1.68 cm/m2 [facility] AV Area (Pre-TAVR) 0.8 cm2 [facility] AV Area by Peak Velocity 2.6 cm2 [facility] AV Area by Peak Velocity 57.7 cm2 [facility] AV Area by VTI 2.6 cm2 [facility] AV Mean Gradient (Pre-TAVR) 39 mmHg [facility] Peak Gradient 9 mmHg [facility] AV Peak Gradient (Pre-TAVR) 51 mmHg [facility] AV Peak Velocity 1.5 m/s [facility] AV Peak Velocity (Pre-TAVR) 3.6 m/s [facility] AV Velocity Ratio 0.67 [facility] AV VTI 30.2 cm [facility] BRYAN/BSA VTI 1.4 cm2/m2 [facility] Fractional Shortening 2D 29 % 28 - 44 % [facility] Interpretation and review of laboratory results Abnormal [facility] IVSd 1.2 cm Abnormal 0.6 - 1.0 cm [facility] LV EDV A4C 114 mL [facility] LV EDV Index A4C 60 mL/m2 [facility] LV Ejection Fraction A4C 70 % [facility] LV ESV A4C 35 mL [facility] LV ESV Index A4C 18 mL/m2 [facility] LV Mass 2D 167.4 g 88 - 224 g [facility] LV Mass 2D Index 87.7 g/m2 49 - 115 g/m2 [facility] LV RWT Ratio 0.52 [facility] LVIDd 4.2 cm 4.2 - 5.9 cm [facility] LVIDd Index 2.2 cm/m2 [facility] LVIDs 3 cm [facility] LVIDs Index 1.57 cm/m2 [facility] LVOT Cardiac Output 6.4 liter/mi nut e [facility] LVOT Diameter 2.2 cm [facility] LVOT Mean Gradient 2 mmHg [facility] LVOT Peak Gradient 4 mmHg [facility] LVOT Peak Velocity 1 m/s [facility] LVOT Stroke Volume Index 40.6 mL/m2 [facility] LVOT SV 77.5 ml [facility] LVOT VTI 20.4 cm [facility] LVOT:AV VTI Index 0.68 [facility] LVPWd 1.1 cm Abnormal 0.6 - 1.0 cm [facility] Sinotubular Junction 2.9 cm [facility] Left Ventricle: Left ventricle size is normal. [...] supine position. No contrast was given. CV CPACS [facility] Vital signsOrdered By: Gabriela Grace on 12-23-2024 Heart rate 77 /min bpm [facility] [employer] Work Phone: Absolute lymphocyte countOrd ered By: Otto Subramanian on 12-20-2024 Lymphocytes Auto (Unsp spec) [#/Vol] 0.54 10*3/uL Low 0.83-4.51 [facility] Absolute neutrophil countOrd ered By: Otto Subramanian on 12-20-2024 Neutrophils (Bld) [#/Vol] 5.0 10*3/uL 2.0-7.7 [facility] Anion gap in Serum or Plasma Ordered By: Otto Subramanian on 12-20-2024 Anion gap [Moles/Vol] 12 mmol/L 5-15 [facility] Automated lymphocyte count a s percentage of total leukocytesOrdered By: Otto Subramanian on 12-20-2024 Lymphocytes/100 WBC Auto (Unsp spec) 8.2 % Low 19-41 [facility] BUN/creatinine ratioOrdered By: Otto Subramanian on 12-20-2024 Urea nitrogen/Creatinine [Mass ratio] 19.3 mg/mg - [facility] Basophil percentageOrdered B y: Otto Subramanian on 12-20-2024 Basophils/100 WBC (Bld) 0.8 % 0-1 [facility] Bilirubin, totalOrdered By: Otto Subramanian on 12-20-2024 Bilirubin [Mass/Vol] 0.72 mg/dL 0.00-1.30 [facility] CBC W/Diff, Automatedon Absolute Lymph 0.54 X10 3/uL Low 0.83-4.51 [facility] Comment on above: Performed By: #### L 100.0100, L500.4050 ####[facility] [address] [place], [address] Absolute Neut 5.0 X10 3/uL Normal 2.0-7.7 [facility] Comment on above: Performed By: #### L 100.0100, L500.4050 ####[facility] [address] [place], [address] Basophils/100 WBC (Bld) 0.8 % Normal 0-1 [facility] Comment on above: Performed By: #### L 100.0100, L500.4050 ####[facility] [address] [place], [address] Eosinophils/100 WBC (Bld) 3.0 % Normal 0-5 [facility] Comment on above: Performed By: #### L 100.0100, L500.4050 ####[facility] [address] [place], [address] Erythrocyte distribution width (RBC) [Ratio] 13.1 % Normal 11.6-14.6 [facility] Comment on above: Performed By: #### L 100.0100, [id number] ####[facility] [address] [place], [address] Hematocrit (Bld) [Volume fraction] 39.0 % Low 40-54 [facility] Comment on above: Performed By: #### L 100.0100, [id number] ####[facility] [address] [place], [address] Hemoglobin (Bld) [Mass/Vol] 12.6 g/dL Low 13.0-16.5 [facility] Comment on above: Performed By: #### L 100.0100, [id number] ####[facility] [address] [place], [address] IG% 0.900 Normal 0.0-0.9 [facility] Comment on above: Result Comment: IG% - Immature Granulocytes (promyelocytes, myelocytes and metamyelocytes) > 1% indicates that a LEFT SHIFT is Present. Performed By: #### L 100.0100, L500.4050 ####[facility] [address] [place], [address] Lymphocytes/100 WBC (Bld) 8.2 % Low 19-41 [facility] Comment on above: Performed By: #### L 100.0100, [id number] ####[facility] [address] [place], [address] MCH (RBC) [Entitic mass] 31.3 pg Normal 27.0-32.0 [facility] Comment on above: Performed By: #### L 100.0100, [id number] ####[facility] [address] [place], [address] MCHC (RBC) [Mass/Vol] 32.3 g/dL Normal 32-36 [facility] Comment on above: Performed By: #### L 100.0100, [id number] ####[facility] [address] [place], [address] MCV (RBC) [Entitic vol] 97.0 fL High 80-94 [facility] Comment on above: Performed By: #### L 100.0100, [id number] ####[facility] [address] [place], [address] Monocytes/100 WBC (Bld) 11.1 % High 0-10 [facility] Comment on above: Performed By: #### L 100.0100, [id number] ####[facility] [address] [place], [address] Neutrophils/100 WBC (Bld) 76.0 % High 47-70 [facility] Comment on above: Performed By: #### L 100.0100, [id number] ####[facility] [address] [place], [address] Nucleated RBC (Bld) [#/Vol] 0 10*3/uL Normal 0-5 [facility] Comment on above: Performed By: #### L 100.0100, [id number] ####[facility] [address] [place], [address] Platelet mean volume (Bld) [Entitic vol] 10.3 fL Normal 6.2-12.0 [facility] Comment on above: Performed By: #### L 100.0100, [id number] ####[facility] [address] [place], [address] Platelets (Bld) [#/Vol] 261 10*3/uL Normal 150-450 [facility] Comment on above: Performed By: #### L 100.0100, [id number] ####[facility] [address] [place], [address] RBC (Bld) [#/Vol] 4.02 10*6/uL Low 4.6-6.2 [facility] Comment on above: Performed By: #### L 100.0100, [id number] ####[facility] [address] [place], [address] RDW SD 47.0 fl High 35.1-43.9 [facility] Comment on above: Performed By: #### L 100.0100, L500.4050 ####[facility] [address] [place], [address] WBC (Bld) [#/Vol] 6.6 10*3/uL Normal 4.4-11.0 [facility] Comment on above: Performed By: #### L 100.0100, L500.4050 ####[facility] [address] [place], [address] Carbon dioxide, total [Moles /volume] in Central venous bloodOrdered By: Otto Subramanian on 12-20-2024 CO2 [Moles/Vol] 27.0 mmol/L 21.0-32.0 [facility] Chloride assayOrdered By: Edgar Subramanian on 12-20-2024 Chloride [Moles/Vol] 104 mmol/L 98-108 [facility] Comprehensive Metabolic Prof ilon 12-20-2024 Albumin [Mass/Vol] 3.9 g/dL Normal 3.4-4.8 [facility] Comment on above: Performed By: #### L 100.0100, L500.4050 ####[facility] [address] [place], [address] Albumin/Globulin [Mass ratio] 1.8 {ratio} Normal 0.9-2.4 [facility] Comment on above: Performed By: #### L 100.0100, L500.4050 ####[facility] [address] [place], [address] ALK PHOS 74 U/L Normal 40-129 [facility] Comment on above: Performed By: #### L 100.0100, L500.4050 ####[facility] [address] [place], [address] ALT [Catalytic activity/Vol] 7 U/L Normal <=46 [facility] Comment on above: Performed By: #### L 100.0100, L500.4050 ####[facility] [address] [place], [address] AST [Catalytic activity/Vol] 19 U/L Normal <=37 [facility] Comment on above: Performed By: #### L 100.0100, L500.4050 ####[facility] [address] [place], [address] Bilirubin [Mass/Vol] 0.72 mg/dL Normal 0.00-1.30 [facility] Comment on above: Performed By: #### L 100.0100, L500.4050 ####[facility] [address] [place], [address] BUN/CRE 19.3 RATIO Normal 10-20 [facility] Comment on above: Performed By: #### L 100.0100, L500.4050 ####[facility] [address] [place], [address] Calcium [Mass/Vol] 9.2 mg/dL Normal 7.6-11.0 [facility] Comment on above: Performed By: #### L 100.0100, L500.4050 ####[facility] [address] [place], [address] Chloride [Moles/Vol] 104 mmol/L Normal 98-108 [facility] Comment on above: Performed By: #### L 100.0100, L500.4050 ####[facility] [address] [place], [address] CO2 [Moles/Vol] 27.0 mmol/L Normal 21.0-32.0 [facility] Comment on above: Performed By: #### L 100.0100, L500.4050 ####[facility] [address] [place], [address] Creatinine [Mass/Vol] 1.07 mg/dL Normal 0.70-1.20 [facility] Comment on above: Performed By: #### L 100.0100, L500.4050 ####[facility] [address] [place], [address] GAP 12 Normal 5-15 [facility] Comment on above: Performed By: #### L 100.0100, L500.4050 ####[facility] [address] [place], [address] GFR/1.73 sq M.predicted among non-blacks MDRD (S/P/Bld) [Vol rate/Area] 67 mL/min/{1.73_m2} Normal >60 [facility] Comment on above: Result Comment: mL/m in/1.73m2 CKD-EPI Creatinine Equation (2020) Performed By: #### L 100.0100, L500.4050 ####[facility] [address] [place], [address] Globulin (S) [Mass/Vol] 2.2 g/dL Normal 2.2-4.2 [facility] Comment on above: Performed By: #### L 100.0100, L500.4050 ####[facility] [address] [place], [address] Glucose [Mass/Vol] 108 mg/dL High 70-99 [facility] Comment on above: Performed By: #### L 100.0100, L500.4050 ####[facility] [address] [place], [address] Potassium [Moles/Vol] 3.4 mmol/L Normal 3.3-5.1 [facility] Comment on above: Performed By: #### L 100.0100, L500.4050 ####[facility] [address] [place], [address] Sodium [Moles/Vol] 143 mmol/L Normal 133-145 [facility] Comment on above: Performed By: #### L 100.0100, L500.4050 ####[facility] [address] [place], [address] T PROT 6.1 g/dL Normal 5.9-8.4 [facility] Comment on above: Performed By: #### L 100.0100, L500.4050 ####[facility] [address] [place], [address] Urea nitrogen [Mass/Vol] 21 mg/dL High 4-19 [facility] Comment on above: Performed By: #### L 100.0100, L500.4050 ####[facility] [address] [place], [address] Eosinophil percentageOrdered By: Otto Subramanian on 12-20-2024 Eosinophils/100 WBC (Bld) 3.0 % 0-5 [facility] Erythrocyte distribution wid th ratioOrdered By: Otto Subramanian on 12-20-2024 Erythrocyte distribution width (RBC) [Ratio] 13.1 % 11.6-14.6 [facility] Erythrocyte distribution wid th standard deviationOrdered By: Otto Subramanian on 12-20-2024 Erythrocyte distribution width (RBC) [Ratio] 47.0 fl High 35.1-43.9 [facility] Glomerular filtration rate ( GFR) estimation/1.73 sq m using serum, plasma, or whole bOrdered By: Otto Subramanian on 12-20-2024 GFR/1.73 sq M.predicted among non-blacks MDRD (S/P/Bld) [Vol rate/Area] 67 mL/min/{1.73_m2} >60 [facility] Comment on above: mL/min/1.73m2 CKD-EP I Creatinine Equation (2020) Hematocrit Auto (Bld) [Volum e fraction]Ordered By: Otto Subramanian on 12-20-2024 Hematocrit (Bld) [Volume fraction] 39.0 % Low 40-54 [facility] Hemoglobin measurementOrdere d By: Otto Subramanian on 12-20-2024 Hemoglobin (Bld) [Mass/Vol] 12.6 g/dL Low 13.0-16.5 [facility] Immature granulocytes/100 WB C Auto (Bld)Ordered By: Otto Subramanian on 12-20-2024 Immature granulocytes/100 WBC (Bld) 0.900 % 0.0-0.9 [facility] Comment on above: IG% - Immature Granu locytes (promyelocytes, myelocytes and metamyelocytes) > 1% indicates that a LEFT SHIFT is Present. Laboratory - Chemistry and C hemistry - challengeOrdered By: Otto Subramanian on 12-20-2024 AST [Catalytic activity/Vol] 19 U/L <38 [facility] MCV (mean corpuscular volume ) determinationOrdered By: Otto Subramanian on 12-20-2024 MCV (RBC) [Entitic vol] 97.0 fL High 80-94 [facility] Mean corpuscular hemoglobin (MCH) determinationOrdered By: Otto Subramanian on 12-20-2024 MCH (RBC) [Entitic mass] 31.3 pg 27.0-32.0 [facility] Mean corpuscular hemoglobin concentration (MCHC) determinationOrdered By: Otto Subramanian on 12-20-2024 MCHC (RBC) [Mass/Vol] 32.3 g/dL 32-36 [facility] Mean platelet volume determi nationOrdered By: Otto Subramanian on 12-20-2024 Platelet mean volume (Bld) [Entitic vol] 10.3 fL 6.2-12.0 [facility] Monocyte percentageOrdered B y: Otto Subramanian on 12-20-2024 Monocytes/100 WBC (Bld) 11.1 % High 0-10 [facility] Neutrophil percentageOrdered By: Otto Subramanian on 12-20-2024 Neutrophils/100 WBC (Bld) 76.0 % High 47-70 [facility] Nucleated red blood cell per centageOrdered By: Otto Subramanian on 12-20-2024 Nucleated RBC/100 WBC (Bld) [Ratio] 0 % 0-5 [facility] Platelet countOrdered By: Edgar Subramanian on 12-20-2024 Platelets (Bld) [#/Vol] 261 10*3/uL 150-450 [facility] Potassium measurement (mass/ volume)Ordered By: Otto Subramanian on 12-20-2024 Potassium (Unsp spec) [Mass/Vol] 3.4 mmol/L 3.3-5.1 [facility] RBC Auto (Bld) [#/Vol]Ordere d By: Otto Subramanian on 12-20-2024 RBC (Bld) [#/Vol] 4.02 10*6/uL Low 4.6-6.2 [facility] Serum creatinine measurement (mass/volume)Ordered By: Otto Subramanian on 12-20-2024 Creatinine [Mass/Vol] 1.07 mg/dL 0.70-1.20 [facility] Serum globulin measurementOr dered By: Otto Subramanian on 12-20-2024 Globulin (S) [Mass/Vol] 2.2 g/dL 2.2-4.2 [facility] Serum glucose measurement (m ass/volume)Ordered By: Otto Subramanian on 12-20-2024 Glucose [Mass/Vol] 108 mg/dL High 70-99 [facility] Serum or plasma alanine workman otransferase (ALT) measurementOrdered By: Otto Subramanian on 12-20-2024 ALT [Catalytic activity/Vol] 7 U/L <47 [facility] Serum or plasma albumin lilly urement (mass/volume)Ordered By: Otto Subramanian on 12-20-2024 Albumin [Mass/Vol] 3.9 g/dL 3.4-4.8 [facility] Serum or plasma albumin/glob ulin mass ratioOrdered By: Otto Subramnaian on 12-20-2024 Albumin/Globulin [Mass ratio] 1.8 {ratio} 0.9-2.4 [facility] Serum or plasma alkaline fiordaliza sphatase measurementOrdered By: Otto Subramanian on 12-20-2024 ALP [Catalytic activity/Vol] 74 U/L 40-129 [facility] Serum or plasma calcium lilly urement (mass/volume)Ordered By: Otto Subramanian on 12-20-2024 Calcium [Mass/Vol] 9.2 mg/dL 7.6-11.0 [facility] Serum or plasma urea nitroge n measurement (mass/volume)Ordered By: Otto Subramanian on 12-20-2024 Urea nitrogen [Mass/Vol] 21 mg/dL High 4-19 [facility] Sodium levelOrdered By: Otto Subramanian on 12-20-2024 Sodium [Moles/Vol] 143 mmol/L 133-145 [facility] Total proteinOrdered By: Kassy Subramanian on 12-20-2024 Protein [Mass/Vol] 6.1 g/dL 5.9-8.4 [facility] White blood cell (WBC) count Ordered By: Otto Subramanian on 12-20-2024 WBC (Bld) [#/Vol] 6.6 10*3/uL 4.4-11.0 [facility] CBC WITH AUTO DIFFERENTIALon 12-12-2024 Basophils (Bld) [#/Vol] 0.0 10*3/uL Normal 0.0-0.2 [facility] Comment on above: Performed By: #### L [id number] #### Snap Shearer: CARLA SOLORZANO ([phone]) [facility]) [address] [place] [address] Basophils/100 WBC (Bld) 0.5 % Normal 0.0-2.0 [facility] Comment on above: Performed By: #### L [id number] #### Snap Shearer: CARLA SOLORZANO ([phone]) [facility]) [address] [place] [address] Eosinophils (Bld) [#/Vol] 0.2 10*3/uL Normal 0.0-0.5 [facility] Comment on above: Performed By: #### L [id number] #### Snap Shearer: CARLA SOLORZANO ([phone]) [facility]) [address] [place] [address] Eosinophils/100 WBC (Bld) 2.7 % Normal 0.0-6.0 [facility] Comment on above: Performed By: #### L [id number] #### Snap Shearer: CARLA SOLORZANO ([phone]) [facility]) [address] [place] [address] Erythrocyte distribution width (RBC) [Ratio] 13.3 % Normal 11.5-15.0 [facility] Comment on above: Performed By: #### L [id number] #### Snap Shearer: CARLA SOLORZANO ([phone]) [facility]) [address] [place] [address] Hematocrit (Bld) [Volume fraction] 37.5 % Low 40.0-52.0 [facility] Comment on above: Performed By: #### L [id number] #### Snap Shearer: CARLA SOLORZANO ([phone]) [facility]) [address] [place] [address] Hemoglobin (Bld) [Mass/Vol] 11.9 g/dL Low 13.0-18.0 [facility] Comment on above: Performed By: #### L [id number] #### Snap Shearer: CARLA SOLORZANO ([phone]) [facility]) [address] [place] [address] IMMATURE GRANS % 0.9 % Normal 0.0-2.0 [facility] Comment on above: Performed By: #### L [id number] #### Snap Shearer: CARLA SOLORZANO ([phone]) [facility]) [address] [place] [address] IMMATURE GRANS ABSOLUTE 0.1 10*3/uL High <0.1 [facility] Comment on above: Performed By: #### L [id number] #### Snap Shearer: CARLA SOLORZANO ([phone]) [facility]) [address] [place] [address] Lymphocytes (Bld) [#/Vol] 0.7 10*3/uL Low 1.0-4.3 [facility] Comment on above: Performed By: #### L [id number] #### Snap Shearer: CARLA SOLORZANO ([phone]) [facility]) [address] [place] [address] Lymphocytes/100 WBC (Bld) 9.0 % Low 15.0-45.0 [facility] Comment on above: Performed By: #### L [id number] #### Snap Shearer: CARLA SOLORZANO ([phone]) [facility]) [address] [place] [address] MCH (RBC) [Entitic mass] 31.0 pg Normal 26.0-34.0 [facility] Comment on above: Performed By: #### L [id number] #### Snap Shearer: CARLA SOLORZANO ([phone]) [facility]) [address] [place] [address] MCHC 31.7 % Normal 30.5-36.0 [facility] Comment on above: Performed By: #### L [id number] #### Snap Shearer: CARLA SOLORZANO ([phone]) [facility]) [address] [place] [address] MCV (RBC) [Entitic vol] 97.7 fL Normal 77.0-99.0 [facility] Comment on above: Performed By: #### L [id number] #### Snap Shearer: CARLA SOLORZANO ([phone]) [facility]) [address] [place] [address] Monocytes (Bld) [#/Vol] 0.8 10*3/uL Normal 0.0-0.9 [facility] Comment on above: Performed By: #### L [id number] #### Snap Shearer: CARLA SOLORZANO ([phone]) [facility]) [address] [place] [address] Monocytes/100 WBC (Bld) 9.7 % Normal 5.0-13.0 [facility] Comment on above: Performed By: #### L [id number] #### Snap Shearer: CARLA SOLORZANO ([phone]) [facility]) [address] [place] [address] NEUTROPHILS ABSOLUTE 6.1 10*3/uL Normal 1.8-7.5 [facility] Comment on above: Performed By: #### L [id number] #### Snap Shearer: CARLA [id number]) [facility] ([facility]) [address] [place] [address] Neutrophils/100 WBC (Bld) 77.2 % Normal 38.0-82.0 [facility] Comment on above: Performed By: #### L [id number] #### Snap Shearer: CARLA SOLORZANO ([phone]) [facility] [address] [place] [address] NRBC 0.0 /100 WBCs Normal 0.0-2.0 [facility] Comment on above: Performed By: #### L [id number] #### Snap Shearer: CARLA SOLORZANO ([phone]) [facility] ([facility]) [address] [place] [address] Platelet mean volume (Bld) [Entitic vol] 10.4 fL Normal 9.0-12.7 [facility] Comment on above: Performed By: #### L [id number] #### Snap Shearer: CARLA SOLORZANO ([phone]) [facility] [address] [place] [address] [place] Platelets (Bld) [#/Vol] 216 10*3/uL Normal 140-440 [facility] Comment on above: Performed By: #### L [id number] #### Snap Shearer: CARLA SOLORZANO ([phone]) [facility] ([facility]) [address] [place] [address] RBC (Bld) [#/Vol] 3.84 10*6/uL Low 4.40-5.90 [facility] Comment on above: Performed By: #### L [id number] #### Snap Shearer: CARLA SOLORZANO ([phone]) [facility] [address] [place] [address] [place] WBC (Bld) [#/Vol] 7.9 10*3/uL Normal 3.6-10.7 [facility] Comment on above: Performed By: #### L [id number] #### Snap Shearer: CARLA SOLORZANO ([phone]) [facility] [address] [place] [address] COMPREHENSIVE METABOLIC PANE Omar 12-12-2024 Albumin [Mass/Vol] 3.0 g/dL Low 3.4-4.8 [facility] Comment on above: Performed By: #### L AB17 #### Snap Shearer: CARLA SOLORZANO ([phone]) [facility] ([facility]) [address] [place] [address] ALP [Catalytic activity/Vol] 75 U/L Normal 40-150 [facility] Comment on above: Performed By: #### L AB17 #### Snap Shearer: CARLA SOLORZANO ([phone]) [facility] ([facility]) [address] [place] [address] ALT [Catalytic activity/Vol] 9 U/L Normal <40 [facility] Comment on above: Performed By: #### L AB17 #### Snap Shearer: CARLA SOLORZANO ([phone]) [facility] ([facility]) [address] [place] [address] Anion gap [Moles/Vol] 6 mmol/L Normal 3-13 [facility] Comment on above: Performed By: #### L AB17 #### Snap Shearer: CARLA SOLORZANO ([phone]) [facility] ([facility]) [address] [place] [address] AST [Catalytic activity/Vol] 22 U/L Normal <34 [facility] Comment on above: Performed By: #### L AB17 #### Snap Shearer: CARLA SOLORZANO ([phone]) [facility]) [address] [place] [address] Bilirubin [Mass/Vol] 0.6 mg/dL Normal <1.2 [facility] Comment on above: Performed By: #### L AB17 #### Snap Shearer: CARLA SOLORZANO ([phone]) [facility]) [address] [place] [address] Calcium [Mass/Vol] 8.6 mg/dL Low 8.8-10.0 [facility] Comment on above: Performed By: #### L [id number] #### Snap Shearer: CARLA [id number]) [facility] ([facility]) [address] [place] [address] [place] Chloride [Moles/Vol] 106 mmol/L Normal 98-107 [facility] Comment on above: Performed By: #### L AB17 #### Snap Shearer: CARLA SOLORZANO ([phone]) [facility] [address] [place] [address] [place] CO2 [Moles/Vol] 27 mmol/L Normal 23-31 [facility] Comment on above: Performed By: #### L AB17 #### Snap Shearer: CARLA SOLORZANO ([phone]) [facility]) [address] [place] [address] Creatinine [Mass/Vol] 0.94 mg/dL Normal 0.72-1.25 [facility] Comment on above: Performed By: #### L AB17 #### Snap Shearer: CARLA SOLORZANO ([phone]) [facility] [address] [place] [address] [place] GLOMERULAR FILTRATION RATE ML/MIN/1.73 SQ M.PREDICTED 78.0 mL/min/1.73m*2 Normal >60.0 [facility] Comment on above: Result Comment: Calc ulation based on the Chronic Kidney Disease Epidemiology Collaboration (CKD-EPI) equation refit without adjustment for race Performed By: #### L AB17 #### Snap Shearer: CARLA SOLORZANO ([phone]) [facility] [address] [place] [address] [place] Glucose [Mass/Vol] 97 mg/dL Normal 82-115 [facility] Comment on above: Performed By: #### L AB17 #### Snap Shearer: CARLA SOLORZANO ([phone]) [facility]) [address] [place] [address] [place] Potassium [Moles/Vol] 4.8 mmol/L Normal 3.5-5.1 [facility] Comment on above: Result Comment: [facility] potassium values may be up to 0.5 mmol/L lower than serum values. Performed By: #### L AB17 #### Snap Shearer: CARLA SOLORZANO ([phone]) [facility]) [address] [place] [address] Protein [Mass/Vol] 5.5 g/dL Low 6.4-8.3 [facility] Comment on above: Performed By: #### L AB17 #### Snap Shearer: CARLA SOLORZANO ([phone]) [facility]) [address] [place] [address] Sodium [Moles/Vol] 139 mmol/L Normal 136-145 [facility] Comment on above: Performed By: #### L AB17 #### Snap Shearer: CARLA SOLORZANO ([phone]) [address] Urea nitrogen [Mass/Vol] 23 mg/dL Normal 9-23 [facility] Comment on above: Performed By: #### L AB17 #### Snap Shearer: CARLA SOLORZANO ([phone]) [address] ANGIOGRAM TAVRon 12-13-19 CT ANGIOGRAM TAVR [facility] 1935 [id number] Exam Date/Time: 12/12/2024 10:29 Procedure: CT ANGIOGRAM [...] 12/12/2024 9:04 PM EDT --------ORIGINAL REPORT -------- [facility] CTA Indication: 89 year-old man with severe aortic stenosis, being evaluated for transcatheter aortic valve implantation. Technique: Computed tomography of the heart, thoracoabdominal aorta, and iliofemoral system was performed using a [employer] Aquilion One 320 detector scanner. Images were [...] 3.2 x 3.3 x 3.3 cm by nzrk-gc-hodofnbpdw Sinotubular junction: 3.5 x3.1 cm Mid ascending [...] with descrip (more content not included)... Normal [facility] CT Chest WO and CT angiogram Coronary [...] and iliofemoral system was performed using a [employer] Aquilion One 320 detector scanner. Images were [...] 3.2 x 3.3 x 3.3 cm by ugsj-jw-oigdgbbhke Sinotubular junction: 3.5 x3.1 cm Mid ascending Aorta: 3.6 x 3.5 cm Abdominal Aorta: Infrarenal: 16 mm Bifurcation: 15 mm Right Iliac System: Calcification: Minimal. Tortuosity: mild. RCIA: 10 mm REIA (more content not included)... [employer] [facility] Patient Name: ALEX CARPENTER : 1935 Exam Date/Time: 12/12/2024 10:29 Procedure: CT ANGIOGRAM TAVR Ordering Provider: SALAS PETER Reason For Exam: AORTIC VALVE STENOSIS [facility] CTA Indication: 89 year-old man with severe aortic stenosis, being evaluated for transcatheter aortic valve implantation. Technique: Computed tomography of the heart, thoracoabdominal aorta, and iliofemoral system was performed using a [employer] Aqu[employer] One 320 detector scanner. Images were [...] 3.2 x 3.3 x 3.3 cm by mshj-bu-ubosjoodrj Sinotubular junction: 3.5 x3.1 cm Mid ascending [...] Electronically Signed Date/Time: 12/12/2024 2:23 PM EDT [facility] Duong Baker M D / Anmol Ferrari MD - 12/12/2024 Patient Name: ALEX CARPENTER : 1935 [facility]#: [id number] Exam Date/Time: 12/12/2024 10:29 Procedure: CT ANGIOGRAM TAVR Ordering Provider: SALAS PETER Reason For Exam: AORTIC VALVE STENOSIS [facility] Indication: 89 year-old man with severe aortic stenosis, being evaluated for transcatheter aortic valve implantation. Technique: Computed tomography of the heart, thoracoabdominal aorta, and iliofemoral system was performed using a [employer] Aqu[employer] One 320 detector scanner. Images were [...] 3.2 x 3.3 x 3.3 cm by oorr-uh-stelaswmbu Sinotubular junction: 3.5 x3.1 cm Mid ascending [...] Electronically Signed Date/Time: 12/12/2024 2:23 PM EDT [facility] Radiology Study observation (narrative) [facility] CT Chest WO and CT angiogram Coronary arteries W contrast IVOrdered By: nAmol Ferrari on 12-12-2024 [facility] 36on 12-10-2024 37 Approved [id number] 12/23-12/24/24 Scanned in under Media Calendars updated and requested on [employer] [facility] [facility] 36on 12-05-2024 36 [place] [id number] ursula wynn on Availity # [id number] Normal [facility] ECG 12 lead - CLINIC PERFORM ED12-03-2024 Sinus Rhythm -Nonspecific QRS widening. -Old inferior infarct. -Nonspecific ST depression + Nonspecific T-abnormality -Nondiagnostic. [facility] 36on 11-27-2024 36 Received josesito selby to add 5th TAVR case on for 12/23. Patient scheduled for CTA on 12/12/24, reviewed fasting 4 hours prior and oral hydration protocol. Verbalized understanding. CMP completed 11/12/24. TAVR procedure, instructions reviewed with pt and family. Patient scheduled for TAVR on 12/23/24 at 2:30 pm Will report to [facility] by 12:30 pm Can park in the [address] Deck or use [facility] parking at the [place] entrance Plan on overnight stay in the [...] Pre-op testing done 12/12/24 Patient/family verbalized understanding. [facility] Office Visiton 11-26-2024 Follow-up visit [id number] Kvng Carpenter naun 1935 [facility] Provider Department Center 11/26/2024 61840-XYFERMGEE CORMIER [facility] BRANDY SHMGCV 95 Ar No family history on file Level of Service:08816 [place] OFFICE/OUTPATIENT NEW HIGH MDM 60 MINUTES Reason for Visit and Comments: Cardiac Valve Problem [1334] New Patient [542] - Heart Valve Clinic [facility] Follow-up visit [id number] Kvng Carpenter naun 1935 [facility] Provider Department Center 11/26/2024 [id number]-YWDCAEUUYIZULASHELL SALAS [facility] BRANDY SHMGCV 95 Ar No family history on file Level of Service:99859 [place] OFFICE/OUTPATIENT NEW HIGH [facility] 60 MINUTES Reason for Visit and Comments: Cardiac Valve Problem [1334] New Patient [542] - Heart Valve Clinic [facility] Progress Noteon 11-26-2024 Progress Note [facility]: Cardiothoracic Surgery Multidisciplinary Heart Valve Clinic Date: 11/26/24 Patient:Alex Carpenter 1935 89 y.o. male [id number] Subjective: HPI: Alex Carpenter 89 y.o. referred [...] 20 mg by mouth. 11/06/24 Historical Provider, LBD-PPD-URDBDHT E PO [place] 1-Kif-Fcp-Fish Oil (Fish Oil) 300-1,000 mg capsule Active 1 NMA PO DAILY January 24, 2024 1:00am 01/24/24 Historical Provider, furosemide (Lasix) 20 MG tablet Take 20 mg by mouth daily. 07/26/24 Historical Provider, HUGJNWBAPJA-XLEUIAH-ZPY D PO Take by mouth. Historical Provider, hydroCHLOROthiazide 12.5 MG tablet Take 12.5 mg by mouth daily. 11/06/24 Historical Provider, losartan (Cozaar) 25 MG tablet Take 25 [...] mg by mouth daily. 02/01/22 01/17/25 Historical Provider, oxyCODONE-acetaminophen (Percocet) 5-325 MG tablet TAKE 1/2 TO 1 (ONE-HALF TO ONE) TABLET BY MOUTH THREE TIMES DAILY NEEDED FOR PAIN Historical Provider, Objective: BP 114/76 (BP Location: Right arm, Patient Position: Sitting, BP Cuff Size: Adult) Pulse 70 Ht 5' 6 (1.676 m) Wt 179 lb (81.2 kg) SpO2 96% BMI 28.89 kg/m? Physical Exam Vitals: BP 114/76 (BP Location: Right arm, Patient Position: Sitting, BP Cuff Size: Adult) Pulse 70 Ht 5' 6 (1.676 m) Wt 179 lb (81.2 kg) [...] reactive b (more content not included)... Normal [facility]S Progress Note [facility] [place] [address] [facility] [address] Dept: [phone] Dept Visit type: New : 1935 Reason for Visit: New patient, Heart Valve clinic Assessment and Plan 1. Severe aortic stenosis - CBC auto differential - Comprehensive metabolic panel - CTA Angiogram TAVR - Case Request Roofer Helper V[employer] Coating: Transcatheter aortic valve replacement (TAVR), TRANSCATHETER AORTIC [...] Weight: 179 lb (81.2 kg) Height: 5' 6 (1.676 m) Physical Exam Constitutional: General: He [...] Reviewed and Summarized No results found for: EFBP, PLVEF, LVEFPHYS, LVEF2D, EF Review of tests/labs done/ordered within my specialty: EKG in office: Review of tests/labs done/ordered outside my specialty: Independent interpretation of tests: I personally reviewed the images from Alex Carpenter's most recent TTE and cath in the office today, to help with medical decision making. My interpretation is noted in the HPI section of this note. Lashell Parker (more content not included)... Normal [facility] Progress Noteon 11-25-2024 Progress Note Alex Carpenter [...] No past medical history on file. Normal [facility] CBC W Auto Differential pane l (Bld)on 11-12-2024 Basophils (Bld) [#/Vol] 0.06 10*3/uL Normal <0.11 [facility] Comment on above: Order Comment: Speci men Type: BLOOD SPECIMEN Ordering Facility: [facility] Address: [address] [place] [address] Performed By: #### 4 537-7 #### [facility] CLIA [id number] [address] [place] [address] [place] Basophils/100 WBC (Bld) 0.6 % Normal [facility] Comment on above: Order Comment: Speci men Type: BLOOD SPECIMEN Ordering Facility: [facility] Address: [address] [place] [address] Performed By: #### 4 537-7 #### [facility] CLIA [id number] [address] [place] [address] [place] Differential cell count method Nom (Bld) Auto Normal [facility] Comment on above: Order Comment: Speci men Type: BLOOD SPECIMEN Ordering Facility: [facility] Address: [address] [place] [address] Performed By: #### 4 537-7 #### [facility] CLIA [id number] [address] [place] [address] [place] Eosinophils (Bld) [#/Vol] 0.14 10*3/uL Normal <0.46 [facility] Comment on above: Order Comment: Speci men Type: BLOOD SPECIMEN Ordering Facility: [facility] Address: [address] [place] [address] Performed By: #### 4 537-7 #### [facility] CLIA [id number] [address] [place] [address] [place] Eosinophils/100 WBC (Bld) 1.4 % Normal [facility] Comment on above: Order Comment: Speci men Type: BLOOD SPECIMEN Ordering Facility: [facility] Address: [address] [place] [address] Performed By: #### 4 537-7 #### [facility] CLIA [id number] [address] [place] [address] [place] Erythrocyte distribution width (RBC) [Ratio] 13.1 % Normal 11.5-15.0 [facility] Comment on above: Order Comment: Speci men Type: BLOOD SPECIMEN Ordering Facility: [facility] Address: [address] [place] [address] Performed By: #### 4 537-7 #### [facility] CLIA [id number] [address] [place] [address] [place] Hematocrit (Bld) [Volume fraction] 38.9 % Low 39.0-51.0 [facility] Comment on above: Order Comment: Speci men Type: BLOOD SPECIMEN Ordering Facility: [facility] Address: [address] [place] [address] Performed By: #### 4 537-7 #### [facility] CLIA [id number] [address] [place] [address] [place] Hemoglobin (Bld) [Mass/Vol] 12.9 g/dL Low 13.0-17.0 [facility] Comment on above: Order Comment: Speci men Type: BLOOD SPECIMEN Ordering Facility: [facility] Address: [address] [place] [address] Performed By: #### 4 537-7 #### [facility] CLIA [id number] [address] [place] [address] [place] Immature granulocytes (Bld) [#/Vol] 0.10 10*3/uL High <0.10 [facility] Comment on above: Order Comment: Speci men Type: BLOOD SPECIMEN Ordering Facility: [facility] Address: [address] [place] [address] Performed By: #### 4 537-7 #### [facility] CLIA [id number] [address] [place] [address] [place] Immature granulocytes/100 WBC (Bld) 1.0 % Normal [facility] Comment on above: Order Comment: Speci men Type: BLOOD SPECIMEN Ordering Facility: [facility] Address: [address] [place] [address] Performed By: #### 4 537-7 #### [facility] CLIA [id number] [address] [place] [address] [place] Lymphocytes (Bld) [#/Vol] 0.86 10*3/uL Low 1.00-4.00 [facility] Comment on above: Order Comment: Speci men Type: BLOOD SPECIMEN Ordering Facility: [facility] Address: [address] [place] [address] Performed By: #### 4 537-7 #### [facility] CLIA [id number] [address] [place] [address] [place] Lymphocytes/100 WBC (Bld) 8.4 % Normal [facility] Comment on above: Order Comment: Speci men Type: BLOOD SPECIMEN Ordering Facility: [facility] Address: [address] [place] [address] Performed By: #### 4 537-7 #### [facility] CLIA [id number] [address] [place] [address] [place] MCH (RBC) [Entitic mass] 31.9 pg Normal 26.0-34.0 [facility] Comment on above: Order Comment: Speci men Type: BLOOD SPECIMEN Ordering Facility: [facility] Address: [address] [place] [address] Performed By: #### 4 537-7 #### [facility] CLIA [id number] [address] [place] [address] [place] MCHC (RBC) [Mass/Vol] 33.2 g/dL Normal 30.5-36.0 [facility] Comment on above: Order Comment: Speci men Type: BLOOD SPECIMEN Ordering Facility: [facility] Address: [address] [place] [address] Performed By: #### 4 537-7 #### [facility] CLIA [id number] [address] [place] [address] [place] MCV (RBC) [Entitic vol] 96.3 fL Normal 80.0-100.[address] [facility] Comment on above: Order Comment: Speci men Type: BLOOD SPECIMEN Ordering Facility: [facility] Address: [address] [place] [address] Performed By: #### 4 537-7 #### [facility] CLIA [id number] [address] [place] [address] [place] Monocytes (Bld) [#/Vol] 0.83 10*3/uL Normal <0.87 [facility] Comment on above: Order Comment: Speci men Type: BLOOD SPECIMEN Ordering Facility: [facility] Address: [address] [place] [address] Performed By: #### 4 537-7 #### [facility] CLIA [id number] [address] [place] [address] [place] Monocytes/100 WBC (Bld) 8.1 % Normal [facility] Comment on above: Order Comment: Speci men Type: BLOOD SPECIMEN Ordering Facility: [facility] Address: [address] [place] [address] Performed By: #### 4 537-7 #### [facility] CLIA [id number] [address] [place] [address] [place] Neutrophils (Bld) [#/Vol] 8.25 10*3/uL High 1.45-7.50 [facility] Comment on above: Order Comment: Speci men Type: BLOOD SPECIMEN Ordering Facility: [facility] Address: [address] [place] [address] Performed By: #### 4 537-7 #### [facility] CLIA [id number] [address] [place] [address] [place] Neutrophils/100 WBC (Bld) 80.5 % Normal [facility] Comment on above: Order Comment: Speci men Type: BLOOD SPECIMEN Ordering Facility: [facility] Address: [address] [place] [address] Performed By: #### 4 537-7 #### [facility] CLIA [id number] [address] [place] [address] [place] Nucleated RBC (Bld) [#/Vol] 10*3/uL Normal <0.01 [facility] Comment on above: Order Comment: Speci men Type: BLOOD SPECIMEN Ordering Facility: [facility] Address: [address] [place] [address] Performed By: #### 4 537-7 #### [facility] CLIA [id number] [address] [place] [address] [place] Nucleated RBC/100 WBC (Bld) [Ratio] 0.0 /100 WBC Normal [facility] Comment on above: Order Comment: Speci men Type: BLOOD SPECIMEN Ordering Facility: [facility] Address: [address] [place] [address] Performed By: #### 4 537-7 #### [facility] CLIA [id number] [address] [place] [address] [place] Platelet mean volume (Bld) [Entitic vol] 9.9 fL Normal 9.0-12.7 [facility] Comment on above: Order Comment: Speci men Type: BLOOD SPECIMEN Ordering Facility: [facility] Address: [address] [place] [address] Performed By: #### 4 537-7 #### [facility] CLIA [id number] [address] [place] [address] [place] Platelets (Bld) [#/Vol] 272 10*3/uL Normal 150-400 [facility] Comment on above: Order Comment: Speci men Type: BLOOD SPECIMEN Ordering Facility: [facility] Address: [address] [place] [address] Performed By: #### 4 537-7 #### [facility] CLIA [id number] [address] [place] [address] [place] RBC (Bld) [#/Vol] 4.04 10*6/uL Low 4.20-6.00 [facility] Comment on above: Order Comment: Speci men Type: BLOOD SPECIMEN Ordering Facility: [facility] Address: [address] [place] [address] Performed By: #### 4 537-7 #### [facility] CLIA [id number] [address] [place] [address] [place] WBC (Bld) [#/Vol] 10.24 10*3/uL Normal 3.70-11.00 [facility] Comment on above: Order Comment: Speci men Type: BLOOD SPECIMEN Ordering Facility: [facility] Address: [address] [place] [address] Performed By: #### 4 537-7 #### [facility] CLIA [id number] [address] [place] [address] [facility] CNOVSPon 11-12-2024 CNOVSP Visit (SP) Office (HEMAWS) ----- ALEX CARPENTER ([id number]) 1935 M Date Time Provider Department 11/12/24 [...] 11/12/2024) ubidecareno (more content not included)... Normal [facility] Comprehensive metabolic 2000 panelon 11-12-2024 Albumin [Mass/Vol] 3.9 g/dL Normal 3.9-4.9 [facility] Comment on above: Order Comment: Speci men Type: BLOOD SPECIMENOrdering Facility: [facility] Address: [address] [place], [place] [address] Performed By: #### 2 4323-8 ####[facility] [id number] [place] [address] [place] ALP [Catalytic activity/Vol] 91 U/L Normal 38-113 [facility] Comment on above: Order Comment: Speci men Type: BLOOD SPECIMENOrdering Facility: [facility] Address: [address] [place] [address] Performed By: #### 2 4323-8 ####[facility] MILLTOWNCLIA [id number] [place] [address] [place] ALT [Catalytic activity/Vol] 9 U/L Low 10-54 [facility] Comment on above: Order Comment: Speci men Type: BLOOD SPECIMENOrdering Facility: [facility] Address: [address] [place] [address] Performed By: #### 2 4323-8 ####[facility] MILLTOWNCLIA [id number] [place] [address] [place] Anion gap [Moles/Vol] 9 mmol/L Normal 8-15 [facility] Comment on above: Order Comment: Speci men Type: BLOOD SPECIMENOrdering Facility: [facility] Address: [address] [place] [address] Performed By: #### 2 4323-8 ####[facility] MILLTOWNCLIA [id number] [place] [address] [place] AST [Catalytic activity/Vol] 14 U/L Normal 14-40 [facility] Comment on above: Order Comment: Speci men Type: BLOOD SPECIMENOrdering Facility: [facility] Address: [address] [place] [address] Performed By: #### 2 4323-8 ####[facility] MILLTOWNCLIA [id number] [place] [address] [place] Bilirubin [Mass/Vol] 0.6 mg/dL Normal 0.2-1.3 [facility] Comment on above: Order Comment: Speci men Type: BLOOD SPECIMENOrdering Facility: [facility] Address: [address] [place] [address] Performed By: #### 2 4323-8 ####[facility] MILLTOWNCLIA [id number] [place] [address] [place] Calcium [Mass/Vol] 9.4 mg/dL Normal 8.5-10.2 [facility] Comment on above: Order Comment: Speci men Type: BLOOD SPECIMENOrdering Facility: [facility] Address: [address] [place] [address] Performed By: #### 2 4323-8 ####[facility] MILLTOWNCLIA [id number] [place] [address] [place] Chloride [Moles/Vol] 103 mmol/L Normal 98-107 [facility] Comment on above: Order Comment: Speci men Type: BLOOD SPECIMENOrdering Facility: [facility] Address: [address] [place] [address] Performed By: #### 2 4323-8 ####[facility] MILLWNCLIA [id number] [place] [address] [place] CO2 [Moles/Vol] 28 mmol/L Normal 22-30 [facility] Comment on above: Order Comment: Speci men Type: BLOOD SPECIMENOrdering Facility: [facility] Address: [address] [place] [address] Performed By: #### 2 4323-8 ####[facility] MILLTOWNCLIA [id number] [place] [address] [place] Creatinine [Mass/Vol] 1.12 mg/dL Normal 0.73-1.22 [facility] Comment on above: Order Comment: Speci men Type: BLOOD SPECIMENOrdering Facility: [facility] Address: [address] [place] [address] Performed By: #### 2 4323-8 ####[facility] MILLTOWNCLIA [id number] [place] [address] [place] eGFRcr SerPlBld CKD-EPI 2020 63 mL/min/1.73m??? Normal >=60 [facility] Comment on above: Order Comment: Edgard wood Type: BLOOD SPECIMENOrdering Facility: [facility] Address: [address] [id number] Result Comment: Isabel mated Glomerular Filtration Rate [...] actual GFR. Performed By: #### 2 4323-8 ####[facility] [id number] [place] [address] [place] Glucose [Mass/Vol] 103 mg/dL High 74-99 [facility] Comment on above: Order Comment: Edgard wood Type: BLOOD SPECIMENOrdering Facility: [facility] Address: [address] [place] [address] Result Comment: The [place] [employer] (ADA) provides guidance for cutoff [...] Standards of Medical Care in Diabetes 2016, [place] [employer]. Diabetes Care. 2016.39(Suppl 1). Performed By: #### 2 4323-8 ####[facility] [id number] [place] [address] [place] Potassium [Moles/Vol] 3.9 mmol/L Normal 3.7-5.1 [facility] Comment on above: Order Comment: Edgard wood Type: BLOOD SPECIMENOrdering Facility: [facility] Address: [address] [place] [address] Performed By: #### 2 4323-8 ####[facility] ADRIANFAIRMONTNCLIA [id number] [place] [address] [place] Protein [Mass/Vol] 6.1 g/dL Low 6.3-8.0 [facility] Comment on above: Order Comment: Speci men Type: BLOOD SPECIMENOrdering Facility: [facility] Address: [address] [place] [address] Performed By: #### 2 4323-8 ####[facility] ERNCA [id number] [place] [address] [place] Sodium [Moles/Vol] 140 mmol/L Normal 136-144 [facility] Comment on above: Order Comment: Speci men Type: BLOOD SPECIMENOrdering Facility: [facility] Address: [address] [place] [address] Performed By: #### 2 4323-8 ####[facility] [id number] [place] [address] [place] Urea nitrogen [Mass/Vol] 28 mg/dL High 9-24 [facility] Comment on above: Order Comment: Speci men Type: BLOOD SPECIMENOrdering Facility: [facility] Address: [address] [place] [address] Performed By: #### 2 4323-8 ####[facility] ERNCLIA [id number] [place] [address] [place] PSA [facility] Prostate specific Ag [Mass/Vol] 0.07 ng/mL Normal <2.60 [facility] Comment on above: Order Comment: Speci men Type: BLOOD SPECIMENOrdering Facility: [facility] Address: [address] [place] [address] Result Comment: Tota l PSA test methodology used is the Electrochemiluminescence Immunoassay by [employer]. Total PSA values by differing methodologies cannot be interchanged. Performed By: #### 2 857-1 ####[facility] [id number] [address] [address] [place] Knee 1 or 2 Viewson 11-05-19 Knee 1 or 2 Views [facility] Imaging Services [address] [place] [address] Knee 1 or 2 Views MR#: [id number] Acct: [id number] Name: ALEX CARPENTER Rep #: [id number] : 1935 M 89 From: Tony adler MD PCP: Dr. Otto Subramanian MD Status: [facility] Study: Knee 1 or 2 Views Date of Exam: 11/04/24 Exam# [id number] Ordering Dr: Marcos Mendez MD PROCEDURE: Intraoperative [...] left knee genicular radiofrequency ablation. Reading Location: [id number] CC: Dr. Otto Subramanian MD; Dr. Marcos Mendez MD Research Associate Policy: Signed Normal [facility] Operative Reporton Operative Report [facility] Medical Records Department [address] [place] [address] Operative Report 11/04/24 1123 MR#: [id number] Acct: [id number] Name: ALEX CARPENTER Rep #: [id number] : 1935 89 From: Marcos Mendez MD PCP: Dr. Otto Subramanian MD Status:[facility] Location: [facility] Operative Report (Standard) Operative Information Date of Procedure: 11/04/24 Pre-Operative Diagnosis: Osteoarthritis of the left knee, chronic none operative knee pain Post-Operative Diagnosis: Osteoarthritis of the left knee, chronic none operative knee pain Surgery/Procedure Performed: Left knee radiofrequency ablation of superior medial, superior lateral, inferior medial genicular nerve under fluoroscopic guidance global regulatory lead: No Type of Anesthesia: Local RN Documented [...] Subramanian MD; Dr. Marcos Mendez MD Signed [facility] MR/PAT.THANGon 10-31-2024 MR/PAT.[facility] Medical Records Department [address] [place] [address] PAT - Anesthesia 10/31/24 1711 MR#: [id number] Acct: [id number] Name: ALEX CARPENTER Rep #: [id number] : 1935 89 From: Venkat Quevedo MD PCP: Dr. Otto Subramanian MD Status:PRE [facility] Y Race: C Location: [facility] Pre-Assessment Diagnosis/Proposed Procedure Planned Operative Procedure(s): left knee genicular radiofreq ablation superior medial, superior lateral, inferior medial under fluoroscopy Anesthesia History Anesthesia History - rapier insertion loom fixer: Anesthesia History - rapier insertion loom fixer Hx Hospitalization No 10/31/24 15:44 Any Problems [...] take am of surgery PONV PONV - rapier insertion loom fixer: PONV - rapier insertion loom fixer Female No 10/31/24 15:44 HX of Motion [...] 10/07/24 07:22 Respiratory Assessment Respiratory Assessment - rapier insertion loom fixer: Respiratory Tract Infection Hx - rapier insertion loom fixer Hx Respiratory Tract Infection No 10/31/24 15:44 STOP Sleep Apnea STOP Sleep Apnea - rapier insertion loom fixer: STOP Sleep Apnea - rapier insertion loom fixer Hx Hypertension No 10/31/24 15:44 Hx Sleep [...] Tobacco Use History Tobacco Use History - rapier insertion loom fixer: Tobacco Use History - rapier insertion loom fixer Tobacco Use Smoking Status Never smoker 10/31/24 15:44 Hx Tobacco Use No 10/31/24 15:44 Years Smoking Packs Smoked per Day Smoking Cessation Date was within the last 15 years Hx Smoking Cessation Date Hx Smoking Cessation Counseling Hematologic Medial History Hematologic Hx - rapier insertion loom fixer: 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 Hx of Blood Transfusion No 10/31/24 15:44 [...] confused, unrespo /Reproduction History /Reproductive History - rapier insertion loom fixer: /Reproductive Hx- rapier insertion loom fixer Hx Now Gestational Age (in weeks): EDC: [...] murmur Hyperlipidemia Hypertension Atherosclerotic heart disease of [place] coronary artery without angina pectoris Home Medications ???Medication ???Instructions ???Recorded ???Last Taken ???Type aspirin 81 mg tablet,delayed 81 mg PO QDAY 11/06/17 10/07/24 Hi story release zoledronic acid 4 mg/100 mL in See Rx Instructions .Route .COMPLE X 06/21/22 Unkn (more content not included)... Normal [facility] Cardiac Cath Diagnosticon Cardiac Cath Diagnostic [facility] Services [address] [place] [address] Cardiac Cath Diagnostic MR#: [id number] Acct: [id number] Name: ALEX CARPENTER Rep #: [id number] : 1935 89 From: Osman Bui MD PCP: Dr. Otto Subramanian MD Status:DEP [facility] Patient Name: ALEX CARPENTER Study Date: 10/07/2024 Performing: Osman Bui MD Ht: 68 inches 172.72 cm : 1935 Wt: 180.01 lbs 81.65 kg Age: 89 Gender: male BSA: 1.95 PROCEDURE(S) PERFORMED [id number])[facility] CLINICAL PROFILE AND INDICATIONS Indications: Valvular Disease [...] multiple views using a 5 Fr. 4.0 Gering catheter. Right Coronary Artery selective angiography was then performed in multiple views using a 5 Fr. 4.0 Gering catheter.The arterial sheath was pulled and a [...] MD Date Dictated: 10/07/24801 Date Transcribed: 10/07/2418 Research Associate Policy: [place] Signed Normal [facility] Office Visit Reporton 2024 Office Visit Report [facility] [address] [place] [address] OFFICE VISIT Date of Service: 09/29/24 MR#: [id number] Acct: [id number] Patient: ALEX CARPENTER Rep #: [id number] : 1935 Provider: MARIE Sheridan Age/Sex: 89/M Location: [facility] Status: Signed Intake Vital Signs 09/26/24 08:11 [...] SWOLLEN L ANKLE/FOOT Chief Complaint: LLE swelling/redness 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 PFSH Medical History Bilateral carotid bruits Nonrheumatic aortic (valve) stenosis Essential hypertension SHAMAR (obstructive sleep apnea) Old myocardial infarction Diastolic dysfunction Premature atrial contractions Cardiac murmur Hyperlipidemia Hypertension Atherosclerotic heart disease of [place] coronary artery without angina pectoris Surgical History [...] Allen Signature: Date (if applicable) CC: Normal [facility] Absolute lymphocyte countOrd ered By: Riri Peralta on 09-26-2024 Lymphocytes Auto (Unsp spec) [#/Vol] 0.85 10*3/uL 0.83-4.51 [facility] Absolute neutrophil countOrd ered By: Riri Peralta on 09-26-2024 Neutrophils (Bld) [#/Vol] 7.3 10*3/uL 2.0-7.7 [facility] Anion gap in Serum or Plasma Ordered By: Riri Peralta on 09-26-2024 Anion gap [Moles/Vol] 9 mmol/L 5-15 [facility] Automated lymphocyte count a s percentage of total leukocytesOrdered By: Riri Peralta on 09-26-2024 Lymphocytes/100 WBC Auto (Unsp spec) 9.3 % Low 19-41 [facility] BUN/creatinine ratioOrdered By: Riri Peralta on 09-26-2024 Urea nitrogen/Creatinine [Mass ratio] 23.4 mg/mg High 10-20 [facility] Basic Metabolic Profile (BMP )on 09-26-2024 BUN/CRE 23.4 RATIO High - [facility] Comment on above: Performed By: #### L 500.2500, L100.0100, L503.7505 #### [facility] Laboratory [address] [place], [address] Calcium [Mass/Vol] 9.1 mg/dL Normal 7.6-11.0 [facility] Comment on above: Performed By: #### L 500.2500, L100.0100, L503.7505 #### [facility] [address] [place], [address] Chloride [Moles/Vol] 106 mmol/L Normal 98-108 [facility] Comment on above: Performed By: #### L 500.2500, L100.0100, L503.7505 #### [facility] [address] [place], [address] CO2 [Moles/Vol] 27.6 mmol/L Normal 21.0-32.0 [facility] Comment on above: Performed By: #### L 500.2500, L100.0100, L503.7505 #### [facility] [address] [place], [address] Creatinine [Mass/Vol] 1.03 mg/dL Normal 0.70-1.20 [facility] Comment on above: Performed By: #### L 500.2500, L100.0100, L503.7505 #### [facility] [address] [place], [address] GAP 9 Normal 5-15 [facility] Comment on above: Performed By: #### L 500.2500, L100.0100, L503.7505 #### [facility] [address] [place], [address] GFR/1.73 sq M.predicted among non-blacks MDRD (S/P/Bld) [Vol rate/Area] 70 mL/min/{1.73_m2} Normal >60 [facility] Comment on above: Result Comment: mL/m in/1.73m2 CKD-EPI Creatinine Equation (2020) Performed By: #### L 500.2500, L100.0100, L503.7505 #### [facility] [address] [place], [address] Glucose [Mass/Vol] 108 mg/dL High 70-99 [facility] Comment on above: Performed By: #### L 500.2500, L100.0100, L503.7505 #### [facility] [address] [place], [address] Potassium [Moles/Vol] 3.8 mmol/L Normal 3.3-5.1 [facility] Comment on above: Performed By: #### L 500.2500, L100.0100, L503.7505 #### [facility] [address] [place], [address] Sodium [Moles/Vol] 143 mmol/L Normal 133-145 [facility] Comment on above: Performed By: #### L 500.2500, L100.0100, L503.7505 #### [facility] [address] [place], [address] Urea nitrogen [Mass/Vol] 24 mg/dL High 4-19 [facility] Comment on above: Performed By: #### L 500.2500, L100.0100, L503.7505 #### [facility] [address] [place], [address] Basophil percentageOrdered B y: Riri Peralta on 09-26-2024 Basophils/100 WBC (Bld) 0.5 % 0-1 [facility] CBC W/Diff, Automatedon 09-17 0-2024 Absolute Lymph 0.85 X10 3/uL Normal 0.83-4.51 [facility] Comment on above: Performed By: #### L 500.2500, L100.0100, L503.7505 #### [facility] [address] [place], [address] Absolute Neut 7.3 X10 3/uL Normal 2.0-7.7 [facility] Comment on above: Performed By: #### L 500.2500, L100.0100, L503.7505 #### [facility] [address] [place], [address] Basophils/100 WBC (Bld) 0.5 % Normal 0-1 [facility] Comment on above: Performed By: #### L 500.2500, L100.0100, L503.7505 #### [facility] [address] [place], [address] Eosinophils/100 WBC (Bld) 1.9 % Normal 0-5 [facility] Comment on above: Performed By: #### L 500.2500, L100.0100, L503.7505 #### [facility] [address] [place], [address] Erythrocyte distribution width (RBC) [Ratio] 13.2 % Normal 11.6-14.6 [facility] Comment on above: Performed By: #### L 500.2500, L100.0100, L503.7505 #### [facility] [address] [place], [address] Hematocrit (Bld) [Volume fraction] 40.2 % Normal 40-54 [facility] Comment on above: Performed By: #### L 500.2500, L100.0100, L503.7505 #### [facility] [address] [place], [address] Hemoglobin (Bld) [Mass/Vol] 13.2 g/dL Normal 13.0-16.5 [facility] Comment on above: Performed By: #### L 500.2500, L100.0100, L503.7505 #### [facility] [address] [place], [address] IG% 0.800 Normal 0.0-0.9 [facility] Comment on above: Result Comment: IG% - Immature Granulocytes (promyelocytes, myelocytes and metamyelocytes) > 1% indicates that a LEFT SHIFT is Present. Performed By: #### L 500.2500, L100.0100, L503.7505 #### [facility] [address] [place], [address] Lymphocytes/100 WBC (Bld) 9.3 % Low 19-41 [facility] Comment on above: Performed By: #### L 500.2500, L100.0100, L503.7505 #### [facility] [address] [place], [address] MCH (RBC) [Entitic mass] 31.7 pg Normal 27.0-32.0 [facility] Comment on above: Performed By: #### L 500.2500, L100.0100, L503.7505 #### [facility] [address] [place], [address] MCHC (RBC) [Mass/Vol] 32.8 g/dL Normal 32-36 [facility] Comment on above: Performed By: #### L 500.2500, L100.0100, L503.7505 #### [facility] [address] [place], [address] MCV (RBC) [Entitic vol] 96.4 fL High 80-94 [facility] Comment on above: Performed By: #### L 500.2500, L100.0100, L503.7505 #### [facility] [address] [place], [address] Monocytes/100 WBC (Bld) 7.4 % Normal 0-10 [facility] Comment on above: Performed By: #### L 500.2500, L100.0100, L503.7505 #### [facility] [address] [place], [address] Neutrophils/100 WBC (Bld) 80.1 % High 47-70 [facility] Comment on above: Performed By: #### L 500.2500, L100.0100, L503.7505 #### [facility] [address] [place], [address] Nucleated RBC (Bld) [#/Vol] 0 10*3/uL Normal 0-5 [facility] Comment on above: Performed By: #### L 500.2500, L100.0100, L503.7505 #### [facility] [address] [place], [address] Platelet mean volume (Bld) [Entitic vol] 10.4 fL Normal 6.2-12.0 [facility] Comment on above: Performed By: #### L 500.2500, L100.0100, L503.7505 #### [facility] [address] [place], [address] Platelets (Bld) [#/Vol] 248 10*3/uL Normal 150-450 [facility] Comment on above: Performed By: #### L 500.2500, L100.0100, L503.7505 #### [facility] [address] [place], [address] RBC (Bld) [#/Vol] 4.17 10*6/uL Low 4.6-6.2 [facility] Comment on above: Performed By: #### L 500.2500, L100.0100, L503.7505 #### [facility] [address] [place], [address] RDW SD 46.8 fl High 35.1-43.9 [facility] Comment on above: Performed By: #### L 500.2500, L100.0100, L503.7505 #### [facility] [address] [place], [address] WBC (Bld) [#/Vol] 9.1 10*3/uL Normal 4.4-11.0 [facility] Comment on above: Performed By: #### L 500.2500, L100.0100, L503.7505 #### [facility] [address] [place], [address] Carbon dioxide, total [Moles /volume] in Central venous bloodOrdered By: Riri Peralta on 09-26-2024 CO2 [Moles/Vol] 27.6 mmol/L 21.0-32.0 [facility] Cardiology Visit Reporton Cardiology Visit Report [facility] [address] [place] [address] OFFICE VISIT Date of Service: 09/26/24 MR#: [id number] Acct: [id number] Name: ALEX CARPENTER Rep #: [id number] : 1935 Provider: VIKRAM roach Age/Sex: 89/M Location: [facility] Status: Signed with Addenda ADDENDUM by VIKRAM [...] Chest PA and Lateral Today Riri Peralta NP MANAGER GLOBALDemarcusC I35.0 - Nonrheumatic aortic (valve) stenosis Left [...] Pro- Brain NATRIURETIC PEPTIDE Today Riri Peralta NP MANAGER GLOBAL-C R06.09 - Other forms of dyspnea Medications: Changed From atorvastatin 20 mg orally daily; may reduce to every other day when myalgias flair.; 20 mg PO .QOD 45 tabs 3RF To atorvastatin 20 mg orally daily; may reduce to every other day when myalgias flair.; 20 mg PO Q OTHER DAY Riri Peralta NP, MANAGER GLOBAL-C From oxycodone-acetaminophen 5-325 mg (Percocet) 1 TAB [...] (MMM) 09/26/24 1100 Date Riri Peralta NP MANAGER GLOBAL-C cc: Dr. 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 Normal [facility] Chest PA and Lateralon 09-26 Chest PA and Lateral [facility] Imaging Services [address] [place] [address] Chest PA and Lateral MR#: [id number] Acct: [id number] Name: ALEX CARPENTER Rep #: [id number] : 1935 M 89 From: Evelio Amaya MD PCP: Dr. Otto Subramanian MD Status: PRE [facility] Study: Chest PA and Lateral Date of Exam: 09/26/24 Exam# [id number] Ordering Dr: Riri Peralta MANAGER GLOBAL MANAGER GLOBAL- C PROCEDURE: CHEST PA AND LATERAL 09/26/2024 REASON FOR EXAM: CARDIAC CATH TECHNIQUE: CHEST PA AND LATERAL COMPARISON: None. FINDINGS: The heart is enlarged. Ill-defined opacities of the bilateral lower lobes which may represent atelectasis or developing infection. The edema is possible. No pleural effusion or pneumothorax. RAD/Chest PA and Lateral IMPRESSION: Pulmonary findings as above. Reading Location: [id number] CC: MANAGER GLOBAL-C Riri Peralta; Dr. Otto Subramanian MD Research Associate Policy: Signed Normal [facility] Chloride assayOrdered By: Georges Peralta on 09-26-2024 Chloride [Moles/Vol] 106 mmol/L 98-108 [facility] Eosinophil percentageOrdered By: Riri Peralta on 09-26-2024 Eosinophils/100 WBC (Bld) 1.9 % 0-5 [facility] Erythrocyte distribution wid th ratioOrdered By: Riri Peralta on 09-26-2024 Erythrocyte distribution width (RBC) [Ratio] 13.2 % 11.6-14.6 [facility] Erythrocyte distribution wid th standard deviationOrdered By: Riri Peralta on 09-26-2024 Erythrocyte distribution width (RBC) [Ratio] 46.8 fl High 35.1-43.9 [facility] Glomerular filtration rate ( GFR) estimation/1.73 sq m using serum, plasma, or whole bOrdered By: Riri Peralta on 09-26-2024 GFR/1.73 sq M.predicted among non-blacks MDRD (S/P/Bld) [Vol rate/Area] 70 mL/min/{1.73_m2} >60 [facility] Comment on above: mL/min/1.73m2 CKD-EP I Creatinine Equation (2020) Hematocrit Auto (Bld) [Volum e fraction]Ordered By: Riri Peralta on 09-26-2024 Hematocrit (Bld) [Volume fraction] 40.2 % 40-54 [facility] Hemoglobin measurementOrdere d By: Riri Peralta on 09-26-2024 Hemoglobin (Bld) [Mass/Vol] 13.2 g/dL 13.0-16.5 [facility] Immature granulocytes/100 WB C Auto (Bld)Ordered By: Riri Peralta on 09-26-2024 Immature granulocytes/100 WBC (Bld) 0.800 % 0.0-0.9 [facility] Comment on above: IG% - Immature Granu locytes (promyelocytes, myelocytes and metamyelocytes) > 1% indicates that a LEFT SHIFT is Present. L503.7505on 09-26-2024 Natriuretic peptide B (Bld) [Mass/Vol] 756 pg/mL Normal <=1800 [facility] Comment on above: Result Comment: Hear t Failure Unlikely: < 300 pg/mL Heart Failure Likely < 50 Years: > 450 pg/mL 50-75 Years: > 900 pg/mL >75 Years: > 1800 pg/mL Performed By: #### L 500.2500, L100.0100, L503.7505 ####[facility] [address] [place], [address] MCV (mean corpuscular volume ) determinationOrdered By: Riri Peralta on 09-26-2024 MCV (RBC) [Entitic vol] 96.4 fL High 80-94 [facility] Mean corpuscular hemoglobin (MCH) determinationOrdered By: Riri Peralta on 09-26-2024 MCH (RBC) [Entitic mass] 31.7 pg 27.0-32.0 [facility] Mean corpuscular hemoglobin concentration (MCHC) determinationOrdered By: Riri Peralta on 09-26-2024 MCHC (RBC) [Mass/Vol] 32.8 g/dL 32-36 [facility] Mean platelet volume determi nationOrdered By: Riri Peralta on 09-26-2024 Platelet mean volume (Bld) [Entitic vol] 10.4 fL 6.2-12.0 [facility] Monocyte percentageOrdered B y: Riri Peralta on 09-26-2024 Monocytes/100 WBC (Bld) 7.4 % 0-10 [facility] Natriuretic peptide.B prohor liz N-Terminal [Mass/volume] in Serum or PlasmaOrdered By: Riri Peralta on 09-26-2024 Natriuretic peptide.B prohormone N-Terminal [Mass/Vol] 756 pg/mL <1800 [facility] Comment on above: Heart Failure Unlike ly: < 300 pg/mLHeart Failure Likely< 50 Years: > 450 pg/mL50-75 Years: > 900 pg/mL>75 Years: > 1800 pg/mL Neutrophil percentageOrdered By: Riri Peralta on 09-26-2024 Neutrophils/100 WBC (Bld) 80.1 % High 47-70 [facility] Nucleated red blood cell per centageOrdered By: Riri Peralta on 09-26-2024 Nucleated RBC/100 WBC (Bld) [Ratio] 0 % 0-5 [facility] Platelet countOrdered By: Georges Peralta on 09-26-2024 Platelets (Bld) [#/Vol] 248 10*3/uL 150-450 [facility] Potassium measurement (mass/ volume)Ordered By: Riri Peralta on 09-26-2024 Potassium (Unsp spec) [Mass/Vol] 3.8 mmol/L 3.3-5.1 [facility] RBC Auto (Bld) [#/Vol]Ordere d By: Riri Peralta on 09-26-2024 RBC (Bld) [#/Vol] 4.17 10*6/uL Low 4.6-6.2 [facility] Serum creatinine measurement (mass/volume)Ordered By: Riri Peralta on 09-26-2024 Creatinine [Mass/Vol] 1.03 mg/dL 0.70-1.20 [facility] Serum glucose measurement (m ass/volume)Ordered By: Riri Peralta on 09-26-2024 Glucose [Mass/Vol] 108 mg/dL High 70-99 [facility] Serum or plasma calcium lilly urement (mass/volume)Ordered By: Riri Peralta on 09-26-2024 Calcium [Mass/Vol] 9.1 mg/dL 7.6-11.0 [facility] Serum or plasma urea nitroge n measurement (mass/volume)Ordered By: Riri Peralta on 09-26-2024 Urea nitrogen [Mass/Vol] 24 mg/dL High 4-19 [facility] Sodium levelOrdered By: Zena Peralta on 09-26-2024 Sodium [Moles/Vol] 143 mmol/L 133-145 [facility] White blood cell (WBC) count Ordered By: Riri Peralta on 09-26-2024 WBC (Bld) [#/Vol] 9.1 10*3/uL 4.4-11.0 [facility] Echocardiogram study reportO rdered By: Osman Bui on 09-17-2024 Study report [facility] [address] [place] [address] Echo Complete W/ Contrast 09/16/24 1105 MR#: [id number] Acct: [id number] Name: AELX CARPENTER Rep #:[id number] : 1935 89 From: Osman Magallon Attending Dr: MARIE Cary Status: REG CLI Ordering Dr: Freddie Lee Date: 09/16/24 Location: [facility] Sex: M C Admitted: Reason For Study [...] Dictated: 09/16/24 1105 Date Transcribed: 09/17/24 1208 Research Associate Policy: Signed [facility] Work Phone: Echo Complete W/ Contraston 09-16-2024 Echo Complete W/ Contrast [facility] [place] [address] Echo Complete W/ Contrast 09/16/24 1105 MR#: [id number] Acct: [id number] Name: ALEX CARPENTER Rep #: [id number] : 1935 89 From: Osman Bui MD Attending Dr: MARIE Cary Status: REG CLI Ordering Dr: Freddie Lee Date: 08/20 Location: [facility] Sex: M C Admitted: Reason For Study [...] Dictated: 09/16/24 1105 Date Transcribed: 09/17/24 1208 Research Associate Policy: Signed Normal [facility] Cardiovascular stress test r eportOrdered By: Osman Bui on 09-12-2024 Study report [facility] [address] [place] [address] MR#: [id number] Acct: [id number] Name: ALEX CARPENTER Rep #: [id number] : 1935 89 From: Osman Bui MD Primary Care: Dr. Otto Subramanian MD Status: REG CLI Referring Dr: Freddie Lee PA PA Sex : M C Stress Test [...] Dictated: 09/12/24 1520 Date Transcribed: 09/12/24 152 Research Associate Policy: [place] Signed [facility] Work Phone: Stress Reporton 09-12-2024 Stress Report [facility] [address] [place] [address] MR#: [id number] Acct: [id number] Name: ALEX CARPENTER Rep #: [id number] : 1935 89 From: Osman Bui MD Primary Care: Dr. Otto Subramanian MD Status: R EG CLI Referring Dr: Freddie Lee Sex: M C Stress Test Report [...] Cary Date Dictated: 09/12/24 1520 Date Transcribed: 09/12/24 152 Research Associate Policy: [place] Signed Normal [facility] [place] BY IFA WITH REFLEXon Nuclear Ab Ql (S) Negative Normal Negative [facility] Comment on above: Order Comment: Speci men Type: BLOOD SPECIMEN Ordering Facility: [facility] Address: [address] [place] [address] Result Comment: Anti -nuclear antibody test is used as an aid in diagnosis of systemic autoimmune diseases. Where positive and clinically warranted, follow-up using disease-specific testing is recommended. Low positive titers are not uncommon with advanced age, certain chronic infections, and malignancies among others. Test methodology: Indirect fluorescence immunoassay (IFA) using HEp-2 cells. Performed By: #### 4 537-7 #### [facility] CLIA [id number] [address] [place] [address] [place] [address] [place] CBC W Auto Differential pane l (Bld)on 08-20-2024 Basophils (Bld) [#/Vol] 0.03 10*3/uL Normal <0.11 [facility] Comment on above: Order Comment: Speci men Type: BLOOD SPECIMENOrdering Facility: [facility] Address: [address] [place] [address] Performed By: #### 5 7021-8 ####[facility] [id number] [place] [address] [place] Basophils/100 WBC (Bld) 0.3 % Normal [facility] Comment on above: Order Comment: Speci men Type: BLOOD SPECIMENOrdering Facility: [facility] Address: [address] [place] [address] Performed By: #### 5 7021-8 ####[facility] [id number] [place] [address] [place] Differential cell count method Nom (Bld) Auto Normal [facility] Comment on above: Order Comment: Speci men Type: BLOOD SPECIMENOrdering Facility: [facility] Address: [address] [place] [address] Performed By: #### 5 7021-8 ####[facility] [id number] [place] [address] [place] Eosinophils (Bld) [#/Vol] 0.20 10*3/uL Normal <0.46 [facility] Comment on above: Order Comment: Speci men Type: BLOOD SPECIMENOrdering Facility: [facility] Address: [address] [place] [address] Performed By: #### 5 7021-8 ####[facility] MILLWNCLIA [id number] [place] [address] [place] Eosinophils/100 WBC (Bld) 1.9 % Normal [facility] Comment on above: Order Comment: Speci men Type: BLOOD SPECIMENOrdering Facility: [facility] Address: [address] [place] [address] Performed By: #### 5 7021-8 ####[facility] ERMASONLIA [id number] [place] [address] [place] Erythrocyte distribution width (RBC) [Ratio] 13.7 % Normal 11.5-15.0 [facility] Comment on above: Order Comment: Speci men Type: BLOOD SPECIMENOrdering Facility: [facility] Address: [address] [place] [address] Performed By: #### 5 7021-8 ####[facility] ERMASONLIA [id number] [place] [address] [place] Hematocrit (Bld) [Volume fraction] 39.0 % Normal 39.0-51.0 [facility] Comment on above: Order Comment: Speci men Type: BLOOD SPECIMENOrdering Facility: [facility] Address: [address] [place] [address] Performed By: #### 5 7021-8 ####[facility] ERMASONLIA [id number] [place] [address] [place] Hemoglobin (Bld) [Mass/Vol] 13.0 g/dL Normal 13.0-17.0 [facility] Comment on above: Order Comment: Speci men Type: BLOOD SPECIMENOrdering Facility: [facility] Address: [address] [place], [place] [address] Performed By: #### 5 7021-8 ####[facility] ERNCLIA [id number] [place] [address] [place] Immature granulocytes (Bld) [#/Vol] 0.08 10*3/uL Normal <0.10 [facility] Comment on above: Order Comment: Speci men Type: BLOOD SPECIMENOrdering Facility: [facility] Address: [address] [place] [address] Performed By: #### 5 7021-8 ####[facility] [id number] [place] [address] [place] Immature granulocytes/100 WBC (Bld) 0.8 % Normal [facility] Comment on above: Order Comment: Speci men Type: BLOOD SPECIMENOrdering Facility: [facility] Address: [address] [place] [address] Performed By: #### 5 7021-8 ####[facility] [id number] [place] [address] [place] Lymphocytes (Bld) [#/Vol] 0.77 10*3/uL Low 1.00-4.00 [facility] Comment on above: Order Comment: Speci men Type: BLOOD SPECIMENOrdering Facility: [facility] Address: [address] [place] [address] Performed By: #### 5 7021-8 ####[facility] [id number] [place] [address] [place] Lymphocytes/100 WBC (Bld) 7.3 % Normal [facility] Comment on above: Order Comment: Speci men Type: BLOOD SPECIMENOrdering Facility: [facility] Address: [address] [place] [address] Performed By: #### 5 7021-8 ####[facility] [id number] [place] [address] [place] MCH (RBC) [Entitic mass] 31.2 pg Normal 26.0-34.0 [facility] Comment on above: Order Comment: Speci men Type: BLOOD SPECIMENOrdering Facility: [facility] Address: [address] [place] [address] Performed By: #### 5 7021-8 ####[facility] CATMASONPACO [id number] [place] [address] [place] MCHC (RBC) [Mass/Vol] 33.3 g/dL Normal 30.5-36.0 [facility] Comment on above: Order Comment: Speci men Type: BLOOD SPECIMENOrdering Facility: [facility] Address: [address] [place] [address] Performed By: #### 5 7021-8 ####[facility] ADRIANFAIRMONTJANA [id number] [place] [address] [place] MCV (RBC) [Entitic vol] 93.5 fL Normal 80.0-100.[address] [facility] Comment on above: Order Comment: Speci men Type: BLOOD SPECIMENOrdering Facility: [facility] Address: [address] [place] [address] Performed By: #### 5 7021-8 ####[facility] ERJANA [id number] [place] [address] [place] Monocytes (Bld) [#/Vol] 0.67 10*3/uL Normal <0.87 [facility] Comment on above: Order Comment: Speci men Type: BLOOD SPECIMENOrdering Facility: [facility] Address: [address] [place] [address] Performed By: #### 5 7021-8 ####[facility] ERMASONLIBarber [id number] [place] [address] [place] Monocytes/100 WBC (Bld) 6.3 % Normal [facility] Comment on above: Order Comment: Speci men Type: BLOOD SPECIMENOrdering Facility: [facility] Address: [address] [place] [address] Performed By: #### 5 7021-8 ####[facility] MILLTOWNCLIA [id number] [place] [address] [place] Neutrophils (Bld) [#/Vol] 8.85 10*3/uL High 1.45-7.50 [facility] Comment on above: Order Comment: Speci men Type: BLOOD SPECIMENOrdering Facility: [facility] Address: [address] [place] [address] Performed By: #### 5 7021-8 ####[facility]ITALL[facility] [id number] [place] [address] [place] Neutrophils/100 WBC (Bld) 83.4 % Normal [facility] Comment on above: Order Comment: Speci men Type: BLOOD SPECIMENOrdering Facility: [facility] Address: [address] [place] [address] Performed By: #### 5 7021-8 ####[facility] [id number] [place] [address] [place] Nucleated RBC (Bld) [#/Vol] 10*3/uL Normal <0.01 [facility] Comment on above: Order Comment: Speci men Type: BLOOD SPECIMENOrdering Facility: [facility] Address: [address] [place] [address] Performed By: #### 5 7021-8 ####[facility]ENTERWNCLIA [id number] [place] [address] [place] Nucleated RBC/100 WBC (Bld) [Ratio] 0.0 /100 WBC Normal [facility] Comment on above: Order Comment: Speci men Type: BLOOD SPECIMENOrdering Facility: [facility] Address: [address] [place] [address] Performed By: #### 5 7021-8 ####[facility] ERNCLIA [id number] [place] [address] [place] Platelet mean volume (Bld) [Entitic vol] 10.0 fL Normal 9.0-12.7 [facility] Comment on above: Order Comment: Speci men Type: BLOOD SPECIMENOrdering Facility: [facility] Address: [address] [place] [address] Performed By: #### 5 7021-8 ####[facility] ERNCA [id number] [place] [address] [place] Platelets (Bld) [#/Vol] 256 10*3/uL Normal 150-400 [facility] Comment on above: Order Comment: Speci men Type: BLOOD SPECIMENOrdering Facility: [facility] Address: [address] [place] [address] Performed By: #### 5 7021-8 ####[facility] ERNCA [id number] [place] [address] [place] RBC (Bld) [#/Vol] 4.17 10*6/uL Low 4.20-6.00 [facility] Comment on above: Order Comment: Speci men Type: BLOOD SPECIMENOrdering Facility: [facility] Address: [address] [place] [address] Performed By: #### 5 7021-8 ####[facility] ERNCA [id number] [place] [address] [place] WBC (Bld) [#/Vol] 10.60 10*3/uL Normal 3.70-11.00 [facility] Comment on above: Order Comment: Speci men Type: BLOOD SPECIMENOrdering Facility: 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 He had been [...] every 5 minutes as needed.Disp: Rfl: Fish Oil-[place]-3 Fatty Acids 500-300 mg ORAL CapTake by mouth.Disp: Rfl: 0 ergocalciferol, vitamin D2, (VITAMIN D2 ORAL)Take by mouth.Disp: Rfl: (Patient not taking: Reported on 08/20/2024) oxybutynin XL (DITROPAN XL) 5 mg 24 hr tabletTake 1 tablet by mouth once daily.Dis (more content not included)... Normal [facility] Comprehensive metabolic 2000 panelon 08-20-2024 Albumin [Mass/Vol] 3.8 g/dL Low 3.9-4.9 [facility] Comment on above: Order Comment: Speci men Type: BLOOD SPECIMENOrdering Facility: [facility] Address: [address] [place] [address] Performed By: #### 2 4323-8 ####[facility] [id number] [place] [address] [place] ALP [Catalytic activity/Vol] 103 U/L Normal 38-113 [facility] Comment on above: Order Comment: Speci men Type: BLOOD SPECIMENOrdering Facility: [facility] Address: [address] [place] [address] Performed By: #### 2 4323-8 ####[facility] [id number] [place] [address] [place] ALT [Catalytic activity/Vol] 11 U/L Normal 10-54 [facility] Comment on above: Order Comment: Speci men Type: BLOOD SPECIMENOrdering Facility: [facility] Address: [address] [place] [address] Performed By: #### 2 4323-8 ####[facility]ENTERWNCLIA [id number] [place] [address] [place] Anion gap [Moles/Vol] 10 mmol/L Normal 8-15 [facility] Comment on above: Order Comment: Speci men Type: BLOOD SPECIMENOrdering Facility: [facility] Address: [address] [place] [address] Performed By: #### 2 4323-8 ####[facility] ERNCA [id number] [place] [address] [place] AST [Catalytic activity/Vol] 16 U/L Normal 14-40 [facility] Comment on above: Order Comment: Speci men Type: BLOOD SPECIMENOrdering Facility: [facility] Address: [address] [place] [address] Performed By: #### 2 4323-8 ####[facility] [id number] [place] [address] [place] Bilirubin [Mass/Vol] 0.7 mg/dL Normal 0.2-1.3 [facility] Comment on above: Order Comment: Speci men Type: BLOOD SPECIMENOrdering Facility: [facility] Address: [address] [place] [address] Performed By: #### 2 4323-8 ####[facility] [id number] [place] [address] [place] Calcium [Mass/Vol] 9.0 mg/dL Normal 8.5-10.2 [facility] Comment on above: Order Comment: Speci men Type: BLOOD SPECIMENOrdering Facility: [facility] Address: [address] [place] [address] Performed By: #### 2 4323-8 ####[facility] ERNCLIA [id number] [place] [address] [place] Chloride [Moles/Vol] 104 mmol/L Normal 98-107 [facility] Comment on above: Order Comment: Speci men Type: BLOOD SPECIMENOrdering Facility: [facility] Address: [address] [place] [address] Performed By: #### 2 4323-8 ####[facility]ALL[facility] [id number] [place] [address] [place] CO2 [Moles/Vol] 24 mmol/L Normal 22-30 [facility] Comment on above: Order Comment: Speci men Type: BLOOD SPECIMENOrdering Facility: [facility] Address: [address] [place] [address] Performed By: #### 2 4323-8 ####[facility] [id number] [place] [address] [place] Creatinine [Mass/Vol] 1.21 mg/dL Normal 0.73-1.22 [facility] Comment on above: Order Comment: Speci men Type: BLOOD SPECIMENOrdering Facility: [facility] Address: [address] [place] [address] Performed By: #### 2 4323-8 ####[facility] [id number] [place] [address] [place] Creatinine and Glomerular filtration rate.predicted panel (S/P/Bld) 58 mL/min/1.73m??? Low >=60 [facility] Comment on above: Order Comment: Speci men Type: BLOOD SPECIMENOrdering Facility: [facility] Address: [address] [place] [address] Result Comment: Isabel mated Glomerular Filtration Rate (eGFR) is calculated using the 2021 CKD-EPI creatinine equation. This equation utilizes serum creatinine, sex, and age as parameters. The creatinine assay has traceable calibration to isotope dilution-mass spectrometry. Refer to KDIGO guidelines for clinical interpretation. In patients with unstable renal function, e.g. those with acute kidney injury, the eGFR may not accurately reflect actual GFR. Performed By: #### 2 4323-8 ####[facility] ERNCLIA [id number] [place] [address] [place] Glucose [Mass/Vol] 121 mg/dL High 74-99 [facility] Comment on above: Order Comment: Edgard wood Type: BLOOD SPECIMENOrdering Facility: [facility] Address: [address] [place] [address] Result Comment: The [place] Diabetes Association (ADA) provides guidance for cutoff [...] Standards of Medical Care in Diabetes 2016, [place] [employer]. Diabetes Care. 2016.39(Suppl 1). Performed By: #### 2 4323-8 ####[facility] [id number] [place] [address] [place] Potassium [Moles/Vol] 4.0 mmol/L Normal 3.7-5.1 [facility] Comment on above: Order Comment: Edgard wood Type: BLOOD SPECIMENOrdering Facility: [facility] Address: [address] [place] [id number] Performed By: #### 2 4323-8 ####[facility] ERNCLI [id number] [place] [address] [place] Protein [Mass/Vol] 6.0 g/dL Low 6.3-8.0 [facility] Comment on above: Order Comment: Speci men Type: BLOOD SPECIMENOrdering Facility: [facility] Address: [address] [place] [address] Performed By: #### 2 4323-8 ####[facility] [id number] [place] [address] [place] Sodium [Moles/Vol] 138 mmol/L Normal 136-144 [facility] Comment on above: Order Comment: Speci men Type: BLOOD SPECIMENOrdering Facility: [facility] Address: [address] [place] [address] Performed By: #### 2 4323-8 ####[facility] [id number] [place] [address] [place] Urea nitrogen [Mass/Vol] 30 mg/dL High 9-24 [facility] Comment on above: Order Comment: Speci men Type: BLOOD SPECIMENOrdering Facility: [facility] Address: [address] [place] [address] Performed By: #### 2 4323-8 ####[facility] [id number] [place] [address] [place] ESR Westergren method (Bld) [Velocity]on 08-20-2024 ESR (Bld) [Velocity] 8 mm/h Normal 0-15 [facility] Comment on above: Order Comment: Speci men Type: BLOOD SPECIMEN [facility] Address: [address] [place] [address] Performed By: #### 4 537-7 #### [facility] CLIA [id number] [address] [place] [address] [place] [address] [place] HbA1c (Bld)on 08-20-2024 Average glucose Estimated from glycated hemoglobin (Bld) [Mass/Vol] 120 mg/dL Normal [facility] Comment on above: Order Comment: Edgard wood Type: BLOOD SPECIMEN [facility] Address: [address] [place] [address] Result Comment: eAG: (Estimated average glucose) is a calculated value from HgbA1c and is contracts representative of the average blood glucose level in the last 2-3 month period. Performed By: #### 5 5454-3 #### [facility] CLIA [id number] [address] [place] [address] [place] HbA1c (Bld) [Mass fraction] 5.8 % High 4.3-5.6 [facility] Comment on above: Order Comment: Edgard wood Type: BLOOD SPECIMEN [facility] Address: [address] [place] [address] Result Comment: [place] Diabetes Association guidelines indicate that patients with HgbA1c in the range 5.7-6.4% are at increased risk for development of diabetes, and intervention by lifestyle modification may be beneficial. HgbA1c greater or equal to 6.5% is considered diagnostic of diabetes. Performed By: #### 5 5454-3 #### [facility] CLIA [id number] [address] [place] [address] [place] PROTEIN ELECTROPHORESIS SERU M (P)on 08-20-2024 Albumin [Mass/Vol] 3.59 g/dL Normal 3.43-5.41 [facility] Comment on above: Order Comment: Edgard wood Type: BLOOD SPECIMENOrdering Facility: [facility] Address: [address] [place] [address] Performed By: #### L [id number] ####[facility] LABCLIA [id number] [place] [address] [place] Alpha 1 globulin Elph [Mass/Vol] 0.27 g/dL Normal 0.18-0.43 [facility] Comment on above: Order Comment: Edgard wood Type: BLOOD SPECIMENOrdering Facility: [facility] Address: [address] [place] [address] Performed By: #### L [id number] ####[facility] [id number] [place] [address] [place] Alpha 2 globulin Elph [Mass/Vol] 0.62 g/dL Normal 0.42-0.98 [facility] Comment on above: Order Comment: Speci men Type: BLOOD SPECIMENOrdering Facility: [facility] Address: [address] [place] [address] Performed By: #### L [id number] ####[facility] [id number] [place] [address] [place] Beta globulin Elph [Mass/Vol] 0.68 g/dL Normal 0.61-1.17 [facility] Comment on above: Order Comment: Speci men Type: BLOOD SPECIMENOrdering Facility: [facility] Address: [address] [place] [address] Performed By: #### L [id number] ####[facility] [id number] [place] [address] [place] Gamma globulin Elph [Mass/Vol] 0.55 g/dL Normal 0.53-1.51 [facility] Comment on above: Order Comment: Speci men Type: BLOOD SPECIMENOrdering Facility: [facility] Address: [address] [place] [address] Performed By: #### L [id number] ####[facility] [id number] [address] [place] M-PROTEIN LOCATION Normal [facility] Comment on above: Order Comment: Speci men Type: BLOOD SPECIMENOrdering Facility: [facility] Address: [address] [place] [address] Result Comment: Not Applicable. Performed By: #### L [id number] ####[facility] [id number] [place] [address] [place] Protein Fractions [Interp] No definitive M protein is identified on protein electrophoresis. Normal No definitive M protein is identified on protein electrophor esis. [facility] Comment on above: Order Comment: Speci men Type: BLOOD SPECIMENOrdering Facility: [facility] Address: [address] [place] [address] Performed By: #### L [id number] ####[facility] LABCLIA [id number] [place] [address] [place] Protein.monoclonal Elph [Mass/Vol] 0.00 g/dL Normal <=0.00 [facility] Comment on above: Order Comment: Speci men Type: BLOOD SPECIMENOrdering Facility: [facility] Address: [address] [place] [address] Performed By: #### L [id number] ####[facility] [id number] [place] [address] [place] SPE STAFF REVIEW Reviewed by Alexander Sandoval MD, Ph.D ([id number]) Normal [facility] Comment on above: Order Comment: Speci men Type: BLOOD SPECIMENOrdering Facility: [facility] Address: [address] [place] [address] Performed By: #### L [id number] ####[facility] LABCL[facility] [id number] [place] [address] [place] PSA SerPl-mCncon 08-20-2024 Prostate specific Ag [Mass/Vol] 0.10 ng/mL Normal <2.60 [facility] Comment on above: Order Comment: Speci men Type: BLOOD SPECIMEN [facility] Address: [address] [place] [address] Result Comment: Tota l PSA test methodology used is the Electrochemiluminescence Immunoassay by [employer]. Total PSA values by differing methodologies cannot be interchanged. Performed By: #### 4 537-7 #### [facility] CLIA [id number] [address] [place] [address] [place] Prot SerPl-mCncon 08-20-2024 Protein [Mass/Vol] 5.7 g/dL Low 6.3-8.0 [facility] Comment on above: Order Comment: Speci men Type: BLOOD SPECIMENOrdering Facility: [facility] Address: [address] [place] [address] Performed By: #### 2 885-2, 3016-3, 2131-11, 7 ####[facility] [id number] [place] [address] [place] T4 Free SerPl-mCncon 025 Free T4 [Mass/Vol] 1.3 ng/dL Normal 0.9-1.7 [facility] Comment on above: Order Comment: Speci men Type: BLOOD SPECIMENOrdering Facility: [facility] Address: [address] [place] [address] Performed By: #### 2 885-2, 3015-3, 2131-11, 3023-09 ####[facility] [id number] [place] [id number] [place] TSH SerPl-aCncon 08-20-2024 TSH Qn 2.530 m[IU]/L Normal 0.270-4.200 [facility] Comment on above: Order Comment: Speci men Type: BLOOD SPECIMENOrdering Facility: [facility] Address: [address] [place] [address] Performed By: #### 2 885-2, 6-3, 2131-11, 7 ####[facility] [id number] [place] [id number] [place] Vit B12 SerPl-mCncon 025 Cobalamin (Vitamin B12) [Mass/Vol] 364 pg/mL Normal 232-1245 [facility] Comment on above: Order Comment: Speci men Type: BLOOD SPECIMENOrdering Facility: [facility] Address: [address] [place] [address] Performed By: #### 2 885-2, 6-3, 2132-9, 3024-7 ####[facility] [id number] [place] [address] [place] Bilirubin directOrdered By: Freddie Lee on 06-27-2024 Bilirubin.direct [Mass/Vol] 0.18 mg/dL 0.00-0.30 [facility] Bilirubin, totalOrdered By: Freddie Lee on 06-27-2024 Bilirubin [Mass/Vol] 0.39 mg/dL 0.00-1.30 [facility] Calculated very low density lipoprotein (VLDL) cholesterol measurementOrdered By: Freddie Lee on 06-27-2024 Calculated very low density lipoprotein (VLDL) cholesterol measurement 23 mg/dL 5-40 [facility] VLDL Cholesterol 23 mg/dL 5-40 [facility] Cardiology Visit Reporton Cardiology Visit Report [facility] [place] [address] OFFICE VISIT Date of Service: 06/27/24 MR#: [id number] Acct: [id number] Name: ALEX CARPENTER Rep #: [id number] : 1935 Provider: MARIE Sheridan Age/Sex: 88/M Location: [facility] Status: Signed HPI HPI History of Present [...] 97 Intake Visit Reasons: 6 M FU [employer] Required: No Is patient in pain?: No Allergies lisinopril Adverse Reaction (Severe, Verified 01/24/24 02:41) cough Medications ???Medication ???Instructions ???Recorded ???Confirmed ???Type aspirin 81 mg tablet,delayed 81 mg PO QDAY 11/06/17 06/27/24 Hi story release bkbugorujbf-vihqjzbnk-yns C-Mn 750 1 ea PO DAILY 05/19/19 [...] PO DAILY 01/24/24 06/27/24 History (CoQ-10) omega 0-kpy-hgn-fish oil 300 1 cap PO DAILY 01/24/24 [...] murmur Hyperlipidemia Hypertension Atherosclerotic heart disease of [place] coronary artery without angina pectoris Surgical History [...] awake an (more content not included)... Normal [facility] LDL calc ser/plasOrdered By: Freddie Lee on 06-27-2024 Cholesterol in LDL [Mass/Vol] 63 mg/dL [facility] Comment on above: Ywflsfbrji=488-371 m g/dL & Higher Nmec=603 mg/dL or greater LDL Cholesterol, Calculated 63 mg/dL [facility] Comment on above: Ovrquexfit=080-988 m g/dL & Higher Bnck=022 mg/dL or greater Laboratory - Chemistry and C hemistry - challengeOrdered By: Freddie Jesus on 06-27-2024 AST [Catalytic activity/Vol] 22 U/L <38 [facility] Lipid Profileon 06-27-2024 CHOL:HDL 2.65 Normal [facility] Comment on above: Order Comment: Comme nts: okay to do non fasting Performed By: #### L 500.4100, L500.3400 ####[facility] [address] [place], [address] Cholesterol [Mass/Vol] 137 mg/dL Normal <=200 [facility] Comment on above: Order Comment: Comme nts: okay to do non fasting Result Comment: Chol esterol level, Desirable <200 mg/dL Borderline high cholesterol 200-239 mg/dL High cholesterol >=240 mg/dL Recommendations of the NCEP Adult Treatment Panel for the following risk-cutoff thresholds for the [place] population. Performed By: #### L 500.4100, L500.3400 ####[facility] [address] [place], [address] Cholesterol in HDL [Mass/Vol] 52 mg/dL Normal [facility] Comment on above: Order Comment: Comme nts: okay to do non fasting Result Comment: Arleen onal Cholesterol Education Program (NCEP) guidelines: <40 mg/dL: Low HDL-cholesterol (major risk factor for CHD) >= 60 mg/dL: High HDL-cholesterol (negative risk factor for CHD) HDL-cholesterol is affected by a number of factors, e.g. smoking, exercise, hormones, sex and age. Performed By: #### L 500.4100, L500.3400 ####[facility] [address] [place], [address] Cholesterol in LDL [Mass/Vol] 63 mg/dL Normal [facility] Comment on above: Order Comment: Comme nts: okay to do non fasting Result Comment: Bord ygxvbr=466-302 mg/dL Higher Zxcc=121 mg/dL or greater Performed By: #### L 500.4100, L500.3400 ####[facility] [address] [place], [address] Cholesterol in VLDL [Mass/Vol] 23 mg/dL Normal 5-40 [facility] Comment on above: Order Comment: Comme nts: okay to do non fasting Performed By: #### L 500.4100, L500.3400 ####[facility] [address] [place], [address] Triglyceride [Mass/Vol] 114 mg/dL Normal [facility] Comment on above: Order Comment: Comme nts: okay to do non fasting Result Comment: The drugs N-Acetylcysteine and Metamizole may falsely depress this assay. Normal range: <150 mg/dL Borderline High: 150-199 mg/dL High: 200-499 mg/dL Very High: >500 mg/dL Performed By: #### L 500.4100, L500.3400 ####[facility] [address] [place], [address] Liver Profileon 06-27-2024 Albumin [Mass/Vol] 3.8 g/dL Normal 3.4-4.8 [facility] Comment on above: Order Comment: Comme nts: okay to do non fastingokay to do non fasting Performed By: #### L 500.4100, L500.3400 ####[facility] [address] [place], [address] ALK PHOS 78 U/L Normal 40-129 [facility] Comment on above: Order Comment: Comme nts: okay to do non fastingokay to do non fasting Performed By: #### L 500.4100, L500.3400 ####[facility] [address] [place], [address] ALT [Catalytic activity/Vol] 12 U/L Normal <=46 [facility] Comment on above: Order Comment: Comme nts: okay to do non fastingokay to do non fasting Performed By: #### L 500.4100, L500.3400 ####[facility] [address] [place], [address] AST [Catalytic activity/Vol] 22 U/L Normal <=37 [facility] Comment on above: Order Comment: Comme nts: okay to do non fastingokay to do non fasting Performed By: #### L 500.4100, L500.3400 ####[facility] [address] [place], [address] Bilirubin [Mass/Vol] 0.39 mg/dL Normal 0.00-1.30 [facility] Comment on above: Order Comment: Comme nts: okay to do non fastingokay to do non fasting Performed By: #### L 500.4100, L500.3400 ####[facility] [address] [place], [address] Bilirubin.direct [Mass/Vol] 0.18 mg/dL Normal 0.00-0.30 [facility] Comment on above: Order Comment: Comme nts: okay to do non fastingokay to do non fasting Performed By: #### L 500.4100, L500.3400 ####[facility] [address] [place], [address] Globulin (S) [Mass/Vol] 2.4 g/dL Normal 2.2-4.2 [facility] Comment on above: Order Comment: Comme nts: okay to do non fastingokay to do non fasting Performed By: #### L 500.4100, L500.3400 ####[facility] [address] [place], [address] T PROT 6.2 g/dL Normal 5.9-8.4 [facility] Comment on above: Order Comment: Comme nts: okay to do non fastingokay to do non fasting Performed By: #### L 500.4400, L500.3400 ####[facility] [address] [place], [place], [address] Screening total cholesterol/ high density lipoprotein (HDL) cholesterol ratioOrdered By: Freddie Lee on 06-27-2024 Cholesterol.total/[place] sterol in HDL [Mass ratio] 2.65 {ratio} [facility] Serum globulin measurementOr dered By: Freddie Lee on 06-27-2024 Globulin (S) [Mass/Vol] 2.4 g/dL 2.2-4.2 [facility] Serum or plasma alanine workman otransferase (ALT) measurementOrdered By: Freddie Lee on 06-27-2024 ALT [Catalytic activity/Vol] 12 U/L <47 [facility] Serum or plasma albumin lilly urement (mass/volume)Ordered By: Freddie Lee on 06-27-2024 Albumin [Mass/Vol] 3.8 g/dL 3.4-4.8 [facility] Serum or plasma alkaline fiordaliza sphatase measurementOrdered By: Freddie Lee on 06-27-2024 ALP [Catalytic activity/Vol] 78 U/L 40-129 [facility] Serum or plasma cholesterol in HDL measurement (mass/volume)Ordered By: Freddie Lee on 06-27-2024 Cholesterol in HDL [Mass/Vol] 52 mg/dL >40 [facility] Comment on above: National Cholesterol Education Program (NCEP) guidelines:<40 mg/dL: Low HDL-cholesterol (major risk factor for CHD)>= 60 mg/dL: High HDL-cholesterol (negative risk factor for CHD)HDL-cholesterol is affected by a number of factors, e.g. smoking, exercise, hormones, sex and age. Serum or plasma cholesterol measurement (mass/volume)Ordered By: Freddie Lee on 06-27-2024 Cholesterol [Mass/Vol] 137 mg/dL <201 [facility] Comment on above: Cholesterol level, D esirable <200 mg/dLBorderline high cholesterol 200-239 mg/dLHigh cholesterol >=240 mg/dLRecommendations of the NCEP Adult Treatment Panel for the following risk-cutoff thresholds for the [place] population. Total proteinOrdered By: Quincy yash Jesus on 06-27-2024 Protein [Mass/Vol] 6.2 g/dL [facility]8.4 [facility] Triglycerides measurementOrd ered By: Freddie Jesus on 06-27-2024 Triglyceride [Mass/Vol] 114 mg/dL <199 [facility] Comment on above: The drugs N-Acetylcy steine and Metamizole may falsely depress this assay. Normal range: <150 mg/dLBorderline High: 150-199 mg/dLHigh: 200-499 mg/dLVery High: >500 mg/dL CNOVon 06-18-2024 CNOV Office Visit (NEMOWS ) ----- DAIALEX Oneill ([id number]) 1935 M Date Time Provider Department 06/18/24 1:45 PM LEISA ROBB During your visit today, we recorded the following information about you: Pulse Blood pressure 82/minute 123/73 Leisa Robb PA-C 06/18/2024 2:43 PM Signed [facility] Name: Alex [...] plan -- brain and L spine at [facility] (more content not included)... Normal [facility] MR Brain WO and W contrast [...] with contrast including diffusion images. Intracranial 3D zezb-dd-icysjx MRA with post-processing performed at the modality [...] may be retrograde. DIVISION OF RADIOLOGY Provider, [facility] - 06/04/2024 * * *Final Report* * * DATE OF EXAM: Jun 04 2024 10:35AM [facility] 0295 - MRI BRAIN WO/W IVCON / PROCEDURE REASON: Other symptoms and signs involving the nervous system * * * * Physician Interpretation * * * * EXAMINATION: MRI BRAIN WO/W IVCON, MRA BRAIN WO IVCON, MRA CAROTID WO IVCON HISTORY: Other symptoms and signs involving the nervous system TECHNIQUE: Routine MRI brain protocol without and with contrast including diffusion images. Intracranial 3D pstx-qi-wdvwbg MRA with post-processing performed at the modality [...] LEFT ICA origin stenosis. Patent intracranial circulation. Research Associate Policy: [facility] Transcribe Date/Time: Jun 04 2024 10:48A Dictated by : BRITTANIE MURCIA MD This examination was interpreted and the report reviewed and electronically signed by: BRITTANIE MURCIA MD on Jun 04 2024 11:12AM [facility] MR Lumbar spine WO and W con trast Alisa 06-04-2024 IMPRESSION: Degenerative changes at multiple levels most severe at L3-L4 as itemized above. Anatomic Lumbar Variant: None. L4-5 is considered the level of the iliac crest and assume there are 5 lumbar-type vertebrae. Research Associate Policy: [facility] Transcribe Date/Time: Jun 04 2024 11:13A Dictated by : BRITTANIE MURCIA MD This examination was interpreted and the report reviewed and electronically signed by: BRITTANIE MURCIA MD on Jun 04 2024 11:17AM [facility] DIVISION OF RADIOLOGY * * *Final Report* * * DATE OF EXAM: Jun 04 2024 10:35AM [facility] 0304 - MRI LUMBAR SPINE WO/W [...] within normal limits. DIVISION OF RADIOLOGY Provider, [facility] - 06/04/2024 * * *Final Report* * * DATE OF EXAM: Jun 04 2024 10:35AM [facility] 0304 - MRI LUMBAR SPINE WO/W [...] and assume there are 5 lumbar-type vertebrae. Research Associate Policy: [facility] Transcribe Date/Time: Jun 04 2024 11:13A Dictated by : BRITTANIE MURCIA MD This examination was interpreted and the report reviewed and electronically signed by: BRITTANIE MURCIA MD on Jun 04 2024 11:17AM EST [facility] Radiology Study observation (narrative) [facility] MR Lumbar spine WO and W con trast IVOrdered By: Ccf Provider on 06-04-2024 [facility] MRA BRAIN WO IVCONon 025 MRA BRAIN WO IVCON * * *Final Report* * * DATE OF EXAM: Jun 04 2024 10:35AM [facility] 0272 - MRA BRAIN WO IVCON [...] with contrast including diffusion images. Intracranial 3D bqri-sp-xxmexo MRA with post-processing performed at the modality [...] LEFT ICA origin stenosis. Patent intracranial circulation. Research Associate Policy: [facility] Transcribe Date/Time: Jun 04 2024 10:48A Dictated by : BRITTANIE MURCIA MD This examination was interpreted and the report reviewed and electronically signed by: BRITTANIE MURCIA MD on Jun 04 2024 11:12AM EST [id number] Normal [facility] MRA CAROTID WO IVCONon 06-04 MRA CAROTID WO IVCON * * *Final Report* * * DATE OF EXAM: Jun 04 2024 10:35AM [facility] 0275 - MRA CAROTID WO IVCON [...] with contrast including diffusion images. Intracranial 3D ygqt-kq-ajyzgr MRA with post-processing performed at the modality [...] LEFT ICA origin stenosis. Patent intracranial circulation. Research Associate Policy: BLESSING Transcribe Date/Time: Jun 04 2024 10:48A Dictated by : BRITTANIE MURCIA MD This examination was interpreted and the report reviewed and electronically signed by: BRITTANIE MURCIA MD on Jun 04 2024 11:12AM EST [id number] Normal [facility] MRA Head vessels WO contrast on 06-04-2024 * * *Final Report* * * DATE OF EXAM: Jun 04 2024 10:35AM [facility] 0272 - MRA BRAIN WO IVCON [...] with contrast including diffusion images. Intracranial 3D hbgm-qg-qwywmq MRA with post-processing performed at the modality [...] may be retrograde. DIVISION OF RADIOLOGY Provider, [facility] - 06/04/2024 * * *Final Report* * * DATE OF EXAM: Jun 04 2024 10:35AM [facility] 0272 - MRA BRAIN WO IVCON [...] with contrast including diffusion images. Intracranial 3D msac-cd-vwmkoy MRA with post-processing performed at the modality [...] LEFT ICA origin stenosis. Patent intracranial circulation. Research Associate Policy: [facility] Transcribe Date/Time: Jun 04 2024 10:48A Dictated by : BRITTANIE MURCIA MD This examination was interpreted and the report reviewed and electronically signed by: BRITTANIE MURCIA MD on Jun 04 2024 11:12AM EST [facility] MRA Neck vessels WO contrast on 06-04-2024 * * *Final Report* * * DATE OF EXAM: Jun 04 2024 10:35AM [facility] 0275 - MRA CAROTID WO IVCON [...] with contrast including diffusion images. Intracranial 3D stlk-jw-ynpfti MRA with post-processing performed at the modality [...] may be retrograde. DIVISION OF RADIOLOGY Provider, [facility] - 06/04/2024 * * *Final Report* * * DATE OF EXAM: Jun 04 2024 10:35AM [facility] 0275 - MRA CAROTID WO IVCON [...] with contrast including diffusion images. Intracranial 3D mkep-ac-qapuus MRA with post-processing performed at the modality [...] LEFT ICA origin stenosis. Patent intracranial circulation. Research Associate Policy: [facility] Transcribe Date/Time: Jun 04 2024 10:48A Dictated by : BRITTANIE MURCIA MD This examination was interpreted and the report reviewed and electronically signed by: BRITTANIE MURCIA MD on Jun 04 2024 11:12AM [facility] MRI BRAIN WO/W IVCONon 06-04 MRI BRAIN WO/W IVCON * * *Final Report* * * DATE OF EXAM: Jun 04 2024 10:35AM [facility] 0295 - MRI BRAIN WO/W IVCON [...] with contrast including diffusion images. Intracranial 3D wuys-um-xfqepg MRA with post-processing performed at the modality [...] LEFT ICA origin stenosis. Patent intracranial circulation. Research Associate Policy: BLESSING Transcribe Date/Time: Jun 04 2024 10:48A Dictated by : BRITTANIE MURCIA MD This examination was interpreted and the report reviewed and electronically signed by: BRITTANIE MURCIA MD on Jun 04 2024 11:12AM EST [id number] Normal [facility] MRI LUMBAR SPINE WO/W IVCONo n 06-04-2024 MRI LUMBAR SPINE WO/W IVCON * * *Final Report* * * DATE OF EXAM: Jun 04 2024 10:35AM [facility] 0304 - MRI LUMBAR SPINE WO/W [...] and assume there are 5 lumbar-type vertebrae. Research Associate Policy: BLESSING Transcribe Date/Time: Jun 04 2024 11:13A Dictated by : BRITTANIE MURCIA MD This examination was interpreted and the report reviewed and electronically signed by: BRITTANIE MURCIA MD on Jun 04 2024 11:17AM EST [id number] Normal [facility] No Panel Informationon 06-04 IMPRESSION: No acute intracranial process. 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 Patent intracranial circulation. Research Associate Policy: BLESSING Transcribe Date/Time: Jun 04 2024 10:48A Dictated by : BRITTANIE MURCIA MD This examination was interpreted and the report reviewed and electronically signed by: BRITTANIE MURCIA MD on Jun 04 2024 11:12AM EST DIVISION OF RADIOLOGY Radiology Study observation (narrative) [facility] No Panel InformationOrdered By: Ccf Provider on 06-04-2024 [facility] CBC W Auto Differential pane l (Bld)on 05-28-2024 Basophils (Bld) [#/Vol] 0.05 10*3/uL Normal <0.11 [facility] Comment on above: Order Comment: Speci men Type: BLOOD SPECIMEN Ordering Facility: [facility] Address: [address] [place] [address] Performed By: #### 4 918-7 #### [facility] CLIA [id number] [address] [place] [address] [place] Basophils/100 WBC (Bld) 0.3 % Normal [facility] Comment on above: Order Comment: Speci men Type: BLOOD SPECIMEN Ordering Facility: [facility] Address: [address] [place] [address] Performed By: #### 4 537-7 #### [facility] CLIA [id number] [address] [place] [address] [place] Differential cell count method Nom (Bld) Auto Normal [facility] Comment on above: Order Comment: Speci men Type: BLOOD SPECIMEN Ordering Facility: [facility] Address: [address] [place] [address] Performed By: #### 4 537-7 #### [facility] CLIA [id number] [address] [place] [address] [place] Eosinophils (Bld) [#/Vol] 0.06 10*3/uL Normal <0.46 [facility] Comment on above: Order Comment: Speci men Type: BLOOD SPECIMEN Ordering Facility: [facility] Address: [address] [place] [address] Performed By: #### 4 537-7 #### [facility] CLIA [id number] [address] [place] [address] [place] Eosinophils/100 WBC (Bld) 0.4 % Normal [facility] Comment on above: Order Comment: Speci men Type: BLOOD SPECIMEN Ordering Facility: [facility] Address: [address] [place] [address] Performed By: #### 4 537-7 #### [facility] CLIA [id number] [address] [place] [address] [place] Erythrocyte distribution width (RBC) [Ratio] 12.9 % Normal 11.5-15.0 [facility] Comment on above: Order Comment: Speci men Type: BLOOD SPECIMEN Ordering Facility: [facility] Address: [address] [place] [address] Performed By: #### 4 537-7 #### [facility] CLIA [id number] [address] [place] [address] [place] Hematocrit (Bld) [Volume fraction] 40.9 % Normal 39.0-51.0 [facility] Comment on above: Order Comment: Speci men Type: BLOOD SPECIMEN Ordering Facility: [facility] Address: [address] [place] [address] Performed By: #### 4 537-7 #### [facility] CLIA [id number] [address] [place] [address] [place] Hemoglobin (Bld) [Mass/Vol] 13.7 g/dL Normal 13.0-17.0 [facility] Comment on above: Order Comment: Speci men Type: BLOOD SPECIMEN Ordering Facility: [facility] Address: [address] [place] [address] Performed By: #### 4 537-7 #### [facility] CLIA [id number] [address] [place] [address] [place] Immature granulocytes (Bld) [#/Vol] 0.11 10*3/uL High <0.10 [facility] Comment on above: Order Comment: Speci men Type: BLOOD SPECIMEN Ordering Facility: [facility] Address: [address] [place] [address] Performed By: #### 4 537-7 #### [facility] CLIA [id number] [address] [place] [address] [place] Immature granulocytes/100 WBC (Bld) 0.7 % Normal [facility] Comment on above: Order Comment: Speci men Type: BLOOD SPECIMEN Ordering Facility: [facility] Address: [address] [place] [address] Performed By: #### 4 537-7 #### [facility] CLIA [id number] [address] [place] [address] [place] Lymphocytes (Bld) [#/Vol] 0.86 10*3/uL Low 1.00-4.00 [facility] Comment on above: Order Comment: Speci men Type: BLOOD SPECIMEN Ordering Facility: [facility] Address: [address] [place] [address] Performed By: #### 4 537-7 #### [facility] CLIA [id number] [address] [place] [address] [place] Lymphocytes/100 WBC (Bld) 5.7 % Normal [facility] Comment on above: Order Comment: Speci men Type: BLOOD SPECIMEN Ordering Facility: [facility] Address: [address] [place] [address] Performed By: #### 4 537-7 #### [facility] CLIA [id number] [address] [place] [address] [place] MCH (RBC) [Entitic mass] 31.1 pg Normal 26.0-34.0 [facility] Comment on above: Order Comment: Speci men Type: BLOOD SPECIMEN Ordering Facility: [facility] Address: [address] [place] [address] Performed By: #### 4 537-7 #### [facility] CLIA [id number] [address] [place] [address] [place] MCHC (RBC) [Mass/Vol] 33.5 g/dL Normal 30.5-36.0 [facility] Comment on above: Order Comment: Speci men Type: BLOOD SPECIMEN Ordering Facility: [facility] Address: [address] [place] [address] Performed By: #### 4 537-7 #### [facility] CLIA [id number] [address] [place] [address] [place] MCV (RBC) [Entitic vol] 93.0 fL Normal 80.0-100.[address] [facility] Comment on above: Order Comment: Speci men Type: BLOOD SPECIMEN Ordering Facility: [facility] Address: [address] [place] [address] Performed By: #### 4 537-7 #### [facility] CLIA [id number] [address] [place] [address] [place] Monocytes (Bld) [#/Vol] 1.09 10*3/uL High <0.87 [facility] Comment on above: Order Comment: Speci men Type: BLOOD SPECIMEN Ordering Facility: [facility] Address: [address] [place] [address] Performed By: #### 4 537-7 #### [facility] CLIA [id number] [address] [place] [address] [place] Monocytes/100 WBC (Bld) 7.2 % Normal [facility] Comment on above: Order Comment: Speci men Type: BLOOD SPECIMEN Ordering Facility: [facility] Address: [address] [place] [address] Performed By: #### 4 537-7 #### [facility] CLIA [id number] [address] [place] [address] [place] Neutrophils (Bld) [#/Vol] 12.88 10*3/uL High 1.45-7.50 [facility] Comment on above: Order Comment: Speci men Type: BLOOD SPECIMEN Ordering Facility: [facility] Address: [address] [place] [address] Performed By: #### 4 537-7 #### [facility] CLIA [id number] [address] [place] [address] [place] Neutrophils/100 WBC (Bld) 85.7 % Normal [facility] Comment on above: Order Comment: Speci men Type: BLOOD SPECIMEN Ordering Facility: [facility] Address: [address] [place] [address] Performed By: #### 4 537-7 #### [facility] CLIA [id number] [address] [place] [address] [place] Nucleated RBC (Bld) [#/Vol] 10*3/uL Normal <0.01 [facility] Comment on above: Order Comment: Speci men Type: BLOOD SPECIMEN Ordering Facility: [facility] Address: [address] [place] [address] Performed By: #### 4 537-7 #### [facility] CLIA [id number] [address] [place] [address] [place] Nucleated RBC/100 WBC (Bld) [Ratio] 0.0 /100 WBC Normal [facility] Comment on above: Order Comment: Speci men Type: BLOOD SPECIMEN Ordering Facility: [facility] Address: [address] [place] [address] Performed By: #### 4 537-7 #### [facility] CLIA [id number] [address] [place] [address] [place] Platelet mean volume (Bld) [Entitic vol] 10.1 fL Normal 9.0-12.7 [facility] Comment on above: Order Comment: Speci men Type: BLOOD SPECIMEN Ordering Facility: [facility] Address: [address] [place] [address] Performed By: #### 4 537-7 #### [facility] CLIA [id number] [address] [place] [address] [place] Platelets (Bld) [#/Vol] 329 10*3/uL Normal 150-400 [facility] Comment on above: Order Comment: Speci men Type: BLOOD SPECIMEN Ordering Facility: [facility] Address: [address] [place] [address] Performed By: #### 4 537-7 #### [facility] CLIA [id number] [address] [id number], [place] [address] [place] RBC (Bld) [#/Vol] 4.40 10*6/uL Normal 4.20-6.00 [facility] Comment on above: Order Comment: Speci men Type: BLOOD SPECIMEN Ordering Facility: [facility] Address: [address] [place] [address] Performed By: #### 4 537-7 #### [facility] CLIA [id number] [address] [place] [address] [place] WBC (Bld) [#/Vol] 15.05 10*3/uL High 3.70-11.00 [facility] Comment on above: Order Comment: Speci men Type: BLOOD SPECIMEN Ordering Facility: [facility] Address: [address] [place] [address] Performed By: #### 4 537-7 #### 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 He had been [...] tablets (180mg) by mouth once daily. Fish Oil-Denton-3 Fatty Acids 500-300 mg ORAL Cap Take by mouth. (Patient not taking: Reported on 05/28/2024) REVIEW OF SYSTEMS: GENERAL: No fever, night sweats, weight loss or malaise. All other reviewed an (more content not included)... Normal [facility] Comprehensive metabolic 2000 panelon 05-28-2024 Albumin [Mass/Vol] 4.1 g/dL Normal 3.9-4.9 [facility] Comment on above: Order Comment: Speci men Type: BLOOD SPECIMEN Ordering Facility: [facility] Address: [address] [place] [address] Performed By: #### 4 537-7 #### [facility] CLIA [id number] [address] [place] [address] [place] ALP [Catalytic activity/Vol] 89 U/L Normal 38-113 [facility] Comment on above: Order Comment: Speci men Type: BLOOD SPECIMEN Ordering Facility: [facility] Address: [address] [place] [address] Performed By: #### 4 537-7 #### [facility] CLIA [id number] [address] [place] [address] [place] ALT [Catalytic activity/Vol] 9 U/L Low 10-54 [facility] Comment on above: Order Comment: Speci men Type: BLOOD SPECIMEN Ordering Facility: [facility] Address: [address] [place] [address] Performed By: #### 4 537-7 #### [facility] CLIA [id number] [address] [place] [address] [place] Anion gap [Moles/Vol] 11 mmol/L Normal 8-15 [facility] Comment on above: Order Comment: Speci men Type: BLOOD SPECIMEN Ordering Facility: [facility] Address: [address] [place] [address] Performed By: #### 4 537-7 #### [facility] CLIA [id number] [address] [place], [place] [address] [place] AST [Catalytic activity/Vol] 17 U/L Normal 14-40 [facility] Comment on above: Order Comment: Speci men Type: BLOOD SPECIMEN Ordering Facility: [facility] Address: [address] [place] [address] Performed By: #### 4 537-7 #### [facility] CLIA [id number] [address] [place] [address] [place] Bilirubin [Mass/Vol] 0.8 mg/dL Normal 0.2-1.3 [facility] Comment on above: Order Comment: Speci men Type: BLOOD SPECIMEN Ordering Facility: [facility] Address: [address] [place] [address] Performed By: #### 4 537-7 #### [facility] CLIA [id number] [address] [place] [address] [place] Calcium [Mass/Vol] 9.4 mg/dL Normal 8.5-10.2 [facility] Comment on above: Order Comment: Speci men Type: BLOOD SPECIMEN Ordering Facility: [facility] Address: [address] [place] [address] Performed By: #### 4 537-7 #### [facility] CLIA [id number] [address] [place] [address] [place] Chloride [Moles/Vol] 101 mmol/L Normal 98-107 [facility] Comment on above: Order Comment: Speci men Type: BLOOD SPECIMEN Ordering Facility: [facility] Address: [address] [place] [address] Performed By: #### 4 537-7 #### [facility] CLIA [id number] [address] [place] [address] [place] CO2 [Moles/Vol] 26 mmol/L Normal 22-30 [facility] Comment on above: Order Comment: Speci men Type: BLOOD SPECIMEN Ordering Facility: [facility] Address: [address] [place], [place] [address] Performed By: #### 4 537-7 #### [facility] CLIA [id number] [address] [place] [address] [place] Creatinine [Mass/Vol] 1.02 mg/dL Normal 0.73-1.22 [facility] Comment on above: Order Comment: Speci men Type: BLOOD SPECIMEN Ordering Facility: [facility] Address: [address] [place] [address] Performed By: #### 4 537-7 #### [facility] CLIA [id number] [address] [place] [address] [place] Creatinine and Glomerular filtration rate.predicted panel (S/P/Bld) 71 mL/min/1.73m??? Normal >=60 [facility] Comment on above: Order Comment: Edgard wood Type: BLOOD SPECIMEN Ordering Facility: [facility] Address: [address] [place] [address] Result Comment: Isabel mated Glomerular Filtration Rate [...] GFR. Performed By: #### 4 537-7 #### [facility] CLIA [id number] [address] [place] [address] [place] Glucose [Mass/Vol] 132 mg/dL High 74-99 [facility] Comment on above: Order Comment: Edgard wood Type: BLOOD SPECIMEN Ordering Facility: [facility] Address: [address] [place] [address] Result Comment: The [place] Diabetes Association (ADA) provides guidance for cutoff [...] Standards of Medical Care in Diabetes 2016, [place] [employer]. Diabetes Care. 2016.39(Suppl 1). Performed By: #### 4 537-7 #### [facility] CLIA [id number] [address] [place] [address] [place] Potassium [Moles/Vol] 3.4 mmol/L Low 3.7-5.1 [facility] Comment on above: Order Comment: Speci men Type: BLOOD SPECIMEN Ordering Facility: [facility] Address: [address] [place] [address] Performed By: #### 4 537-7 #### [facility] CLIA [id number] [address] [place] [address] [place] Protein [Mass/Vol] 6.8 g/dL Normal 6.3-8.0 [facility] Comment on above: Order Comment: Speci men Type: BLOOD SPECIMEN Ordering Facility: [facility] Address: [address] [place] [address] Performed By: #### 4 537-7 #### [facility] CLIA [id number] [address] [place] [address] [place] Sodium [Moles/Vol] 138 mmol/L Normal 136-144 [facility] Comment on above: Order Comment: Speci men Type: BLOOD SPECIMEN Ordering Facility: [facility] Address: [address] [place] [address] Performed By: #### 4 537-7 #### [facility] CLIA [id number] [address] [place] [address] [place] Urea nitrogen [Mass/Vol] 25 mg/dL High 9-24 [facility] Comment on above: Order Comment: Speci men Type: BLOOD SPECIMEN Ordering Facility: [facility] Address: [address] [place] [address] Performed By: #### 4 537-7 #### [facility] CLIA [id number] [address] [place], [place] [address] [place] [facility] Prostate specific Ag [Mass/Vol] 0.14 ng/mL Normal <2.60 [facility] Comment on above: Order Comment: Speci men Type: BLOOD SPECIMEN Ordering Facility: [facility] Address: [address] [place] [address] Result Comment: [place] l PSA test methodology used is the Electrochemiluminescence Immunoassay by [employer]. Total PSA values by differing methodologies cannot be interchanged. Performed By: #### 4 537-7 #### [facility] CLIA [id number] [address] [place] [address] [place] [address] [place] CNCOon 05-24-2024 CNCO Letter Text Normal [facility] CNOVon 05-24-2024 CNOV Office Visit (NEMJULIO ) ----- ALEX CARPENTER ([id number]) 1935 M Date Time Provider Department 05/24/24 [...] imaging. CT brain completed on 06/22/22 at [facility] reportedly showed no acute changes but [...] ORAL Ta (more content not included)... Normal [facility] CNPNon 05-24-2024 CNPN Telephone (NAVARRO) ----- DAIALEX ([id number]) 1935 M Date Time Provider Department 05/24/24 KAUSHAL STOCKTON JR During your visit today, we recorded the following information about you: Renetta Edouard LPN 05/24/2024 11:55 AM Signed Kaushal Stockton Jr., MD P [facility] Nurse Please request recent labs including B12, sed rate, TSH, AZ, A1c, CMP from PCP office. Thank you. 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 - Fish Oil-Denton-3 Fatty Acids 500-300 mg ORAL Cap Take by mouth. 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 [place] [address] / REEVALUATION / MEDICARE RECERTIFICATION PHYSICAL THERAPY MR#: [id number] Acct: [id number] Name: ALEX CARPENTER Rep #: [id number] : 1935 88 From: Otto Shirley DPT, OCS, CSCS Referring Dr.: Dr. Otto Subramanian MD Status:REG RCR Insurance: [facility] SELF PAY INSURANCE Re-Evaluation Intro: Dr. [...] but feeling like he can change that. ifkifsda0p/week for 4 weeks Please do the following... 1. Ensure verbally patient doing HEP daily at home and add to it as compliance improves. 2. Get more aggressive with strength in clinic including machines if safety will allow for assisted LE strength in gym and postural strength [...] do not hesitate to contact me at [phone] by phone or if you have questions or concerns regarding this new plan of care! Sincerely, Otto Shirley, DPT, OCS, CSCS 05/23/24 1129 CC: Dr. Otto Subramanian MD EBG Signed For Medicare only, by signing this I certify the plan of care. ___ Physicians Signature Date Normal [facility] PT Communicationon 5 PT Communication [facility] Physical Therapy [facility] [address] [place] [address] Fax REHABILITATION SERVICES PROGRESS NOTE MR#: [id number] Acct: [id number] Name: ALEX CARPENTER Rep #: [id number] : 1935 88 From: Otto Shirley DPT, DENISE, CSCS Referring Dr.: Dr. Otto Subramanian MD Status:REG RCR Insurance: [employer] [facility] SELF PAY INSURANCE PT Communication Note 04/22/[address] Otto Subramanian MD , Thank you for the referral of Alex to [facility] for balance testing. I have enclosed a [...] of care. ___ Physicians Signature Date Normal [facility] Inital Evaluation (1) - PTon 04-15-2024 Inital Evaluation (1) - PT [facility] Physical Therapy [facility] [address] [place] [address] / REHABILITATION SERVICES INITIAL EVALUATION MR#: [id number] Acct: [id number] Name: ALEX CARPENTER Rep #: [id number] : 1935 88 From: Otto Shirley DPT, DENISE, CSCS Referring Dr.: Dr. Otto Subramanian MD Status: REG R CR Insurance: [facility] SELF PAY INSURANCE Patient's Visit Information [...] tired or uneven surfaces. Also flor for assisted ex to mitigate risk. Also on course [...] not an issue but wakes up at [facility] with pain some times. Has electric [...] to be FAXED BACK to us at [phone] for Medicare purposes. For Medicare only, by signing this I certify the plan of care. Please let me know if there are questions or concerns regarding this plan of care. Physician Signature: Date: _ 04/15/24 1314 CC: Dr. Otto Subramanian MD EBG Signed Normal [facility] CBC W Auto Differential pane l (Bld)on 03-05-2024 Basophils (Bld) [#/Vol] 10*3/uL Normal <0.[address] [facility] Comment on above: Order Comment: Speci men Type: BLOOD SPECIMENOrdering Facility: [facility] Address: [address] [place] [address] Performed By: #### 5 7021-8 ####[facility] [id number] [place] [address] [place] Basophils/100 WBC (Bld) 0.1 % [facility] Comment on above: Order Comment: Speci men Type: BLOOD SPECIMENOrdering Facility: [facility] Address: [address] [place] [address] Performed By: #### 5 7021-8 ####[facility] [id number] [place] [address] [place] Differential cell count method Nom (Bld) Auto Normal [facility] Comment on above: Order Comment: Speci men Type: BLOOD SPECIMENOrdering Facility: [facility] Address: [address] [place] [address] Performed By: #### 5 7021-8 ####[facility] [id number] [place] [address] [place] Eosinophils (Bld) [#/Vol] 10*3/uL Normal <0.46 [facility] Comment on above: Order Comment: Speci men Type: BLOOD SPECIMENOrdering Facility: [facility] Address: [address] [place] [address] Performed By: #### 5 7021-8 ####[facility] [id number] [place] [address] [place] Eosinophils/100 WBC (Bld) 0.0 % Normal [facility] Comment on above: Order Comment: Speci men Type: BLOOD SPECIMENOrdering Facility: [facility] Address: [address] [place] [address] Performed By: #### 5 7021-8 ####[facility] [id number] [place] [address] [place] Erythrocyte distribution width (RBC) [Ratio] 13.1 % Normal 11.5-15.0 [facility] Comment on above: Order Comment: Speci men Type: BLOOD SPECIMENOrdering Facility: [facility] Address: [address] [place] [address] Performed By: #### 5 7021-8 ####[facility] [id number] [place] [address] [place] Hematocrit (Bld) [Volume fraction] 39.8 % Normal 39.0-51.0 [facility] Comment on above: Order Comment: Speci men Type: BLOOD SPECIMENOrdering Facility: [facility] Address: [address] [place], [place] [address] Performed By: #### 5 7021-8 ####[facility] [id number] [place] [address] [place] Hemoglobin (Bld) [Mass/Vol] 13.7 g/dL Normal 13.0-17.0 [facility] Comment on above: Order Comment: Speci men Type: BLOOD SPECIMENOrdering Facility: [facility] Address: [address] [place] [address] Performed By: #### 5 7021-8 ####[facility] SHEAWNCLIA [id number] [place] [address] [place] Immature granulocytes (Bld) [#/Vol] 0.23 10*3/uL High <0.10 [facility] Comment on above: Order Comment: Speci men Type: BLOOD SPECIMENOrdering Facility: [facility] Address: [address] [place] [address] Performed By: #### 5 7021-8 ####[facility] ADRIANWNCLIA [id number] [place] [address] [place] Immature granulocytes/100 WBC (Bld) 1.6 % Normal [facility] Comment on above: Order Comment: Speci men Type: BLOOD SPECIMENOrdering Facility: [facility] Address: [address] [place] [address] Performed By: #### 5 7021-8 ####[facility] SHEAWNCLIA [id number] [place] [address] [place] Lymphocytes (Bld) [#/Vol] 0.96 10*3/uL Low 1.00-4.00 [facility] Comment on above: Order Comment: Speci men Type: BLOOD SPECIMENOrdering Facility: [facility] Address: [address] [place] [address] Performed By: #### 5 7021-8 ####[facility] MILLTOWNCLIA [id number] [place] [address] [place] Lymphocytes/100 WBC (Bld) 6.5 % Normal [facility] Comment on above: Order Comment: Speci men Type: BLOOD SPECIMENOrdering Facility: [facility] Address: [address] [place] [address] Performed By: #### 5 7021-8 ####[facility] MILLWNCLIA [id number] [place] [address] [place] MCH (RBC) [Entitic mass] 31.6 pg Normal 26.0-34.0 [facility] Comment on above: Order Comment: Speci men Type: BLOOD SPECIMENOrdering Facility: [facility] Address: [address] [place] [address] Performed By: #### 5 7021-8 ####[facility] [id number] [place] [address] [place] MCHC (RBC) [Mass/Vol] 34.4 g/dL Normal 30.5-36.0 [facility] Comment on above: Order Comment: Speci men Type: BLOOD SPECIMENOrdering Facility: [facility] Address: [address] [place] [address] Performed By: #### 5 7021-8 ####[facility] [id number] [place] [address] [place] MCV (RBC) [Entitic vol] 91.9 fL Normal 80.0-100.0 [facility] Comment on above: Order Comment: Speci men Type: BLOOD SPECIMENOrdering Facility: [facility] Address: [address] [place] [address] Performed By: #### 5 7021-8 ####[facility] ERMASONBarber [id number] [place] [address] [place] Monocytes (Bld) [#/Vol] 0.75 10*3/uL Normal <0.87 [facility] Comment on above: Order Comment: Speci men Type: BLOOD SPECIMENOrdering Facility: [facility] Address: [address] [place] [address] Performed By: #### 5 7021-8 ####[facility] [id number] [place] [address] [place] Monocytes/100 WBC (Bld) 5.1 % Normal [facility] Comment on above: Order Comment: Speci men Type: BLOOD SPECIMENOrdering Facility: [facility] Address: [address] [place] [address] Performed By: #### 5 7021-8 ####[facility] [id number] [place] [address] [place] Neutrophils (Bld) [#/Vol] 12.70 10*3/uL High 1.45-7.50 [facility] Comment on above: Order Comment: Speci men Type: BLOOD SPECIMENOrdering Facility: [facility] Address: [address] [place] [address] Performed By: #### 5 7021-8 ####[facility] [id number] [place] [address] [place] Neutrophils/100 WBC (Bld) 86.7 % Normal [facility] Comment on above: Order Comment: Speci men Type: BLOOD SPECIMENOrdering Facility: [facility] Address: [address] [place] [address] Performed By: #### 5 7021-8 ####[facility] [id number] [place] [address] [place] Nucleated RBC (Bld) [#/Vol] 10*3/uL Normal <0.01 [facility] Comment on above: Order Comment: Speci men Type: BLOOD SPECIMENOrdering Facility: [facility] Address: [address] [place] [address] Performed By: #### 5 7021-8 ####[facility] [id number] [place] [address] [place] Nucleated RBC/100 WBC (Bld) [Ratio] 0.0 /100 WBC Normal [facility] Comment on above: Order Comment: Speci men Type: BLOOD SPECIMENOrdering Facility: [facility] Address: [address] [place] [address] Performed By: #### 5 7021-8 ####[facility] DONNA [id number] [place] [address] [place] Platelet mean volume (Bld) [Entitic vol] 10.2 fL Normal 9.0-12.7 [facility] Comment on above: Order Comment: Speci men Type: BLOOD SPECIMENOrdering Facility: [facility] Address: [address] [place] [address] Performed By: #### 5 7021-8 ####[facility] ERJANA [id number] [place] [address] [place] Platelets (Bld) [#/Vol] 305 10*3/uL Normal 150-400 [facility] Comment on above: Order Comment: Speci men Type: BLOOD SPECIMENOrdering Facility: [facility] Address: [address] [place] [address] Performed By: #### 5 7021-8 ####[facility] ERJANA [id number] [place] [address] [place] RBC (Bld) [#/Vol] 4.33 10*6/uL Normal 4.20-6.00 [facility] Comment on above: Order Comment: Speci men Type: BLOOD SPECIMENOrdering Facility: [facility] Address: [address] [place] [address] Performed By: #### 5 7021-8 ####[facility]IT[facility] [id number] [place] [address] [place] WBC (Bld) [#/Vol] 14.66 10*3/uL High 3.70-11.00 [facility] Comment on above: Order Comment: Speci men Type: BLOOD SPECIMENOrdering Facility: [facility] Address: [address] [place] [address] Performed By: #### 5 7021-8 ####[facility] CAROLIN VALDIVIAWNCPACO [id number] [place] [address] [place] CNOVSPon 03-05-2024 CNOVSP Visit (SP) Office (HEMAWS) ----- ALEX CARPENTER ([id number]) 1935 M Date Time Provider Department 03/05/24 [...] (Patient not taking: Reported on 07/11/2022) Fish Oil-Denton-3 Fatty Acids 500-300 mg ORAL Cap Take one(1) tablet daily. (Patient not taking: Reported on 03/05/2024) REVIEW OF SYSTEMS: GENERAL: No fever, night sweats, weight loss or malaise. All other rev (more content not included)... Normal [facility] Comprehensive metabolic 2000 panelon 03-05-2024 Albumin [Mass/Vol] 4.1 g/dL Normal 3.9-4.9 [facility] Comment on above: Order Comment: Speci men Type: BLOOD SPECIMENOrdering Facility: [facility] Address: [address] [place] [address] Performed By: #### 2 4323-8 ####[facility] [id number] [place] [address] [place] ALP [Catalytic activity/Vol] 115 U/L High 38-113 [facility] Comment on above: Order Comment: Speci men Type: BLOOD SPECIMENOrdering Facility: [facility] Address: [address] [place] [address] Performed By: #### 2 4323-8 ####[facility] [id number] [place] [address] [place] ALT [Catalytic activity/Vol] 13 U/L Normal 10-54 [facility] Comment on above: Order Comment: Speci men Type: BLOOD SPECIMENOrdering Facility: [facility] Address: [address] [place] [address] Performed By: #### 2 4323-8 ####[facility] CAROLIN MILLTOWNCLIA [id number] [place] [address] [place] Anion gap [Moles/Vol] 12 mmol/L Normal 8-15 [facility] Comment on above: Order Comment: Speci men Type: BLOOD SPECIMENOrdering Facility: [facility] Address: [address] [place] [address] Performed By: #### 2 4323-8 ####[facility]ENTERWNCLIA [id number] [place] [address] [place] AST [Catalytic activity/Vol] 15 U/L Normal 14-40 [facility] Comment on above: Order Comment: Speci men Type: BLOOD SPECIMENOrdering Facility: [facility] Address: [address] [place] [address] Performed By: #### 2 4323-8 ####[facility]ENTERWNCLIA [id number] [place] [address] [place] Bilirubin [Mass/Vol] 0.5 mg/dL Normal 0.2-1.3 [facility] Comment on above: Order Comment: Speci men Type: BLOOD SPECIMENOrdering Facility: [facility] Address: [address] [place] [address] Performed By: #### 2 4323-8 ####[facility] MILLTOWNCLIA [id number] [place] [address] [place] Calcium [Mass/Vol] 9.3 mg/dL Normal 8.5-10.2 [facility] Comment on above: Order Comment: Speci men Type: BLOOD SPECIMENOrdering Facility: [facility] Address: [address] [place] [address] Performed By: #### 2 4323-8 ####[facility] ADRIANWNCLIA [id number] [place] [address] [place] Chloride [Moles/Vol] 105 mmol/L Normal 98-107 [facility] Comment on above: Order Comment: Speci men Type: BLOOD SPECIMENOrdering Facility: [facility] Address: [address] [place] [address] Performed By: #### 2 4323-8 ####[facility] ERNCLIA [id number] [place] [address] [place] CO2 [Moles/Vol] 25 mmol/L Normal 22-30 [facility] Comment on above: Order Comment: Speci men Type: BLOOD SPECIMENOrdering Facility: [facility] Address: [address] [place] [address] Performed By: #### 2 4323-8 ####[facility] ERNCLIA [id number] [place] [address] [place] Creatinine [Mass/Vol] 0.94 mg/dL Normal 0.73-1.22 [facility] Comment on above: Order Comment: Speci men Type: BLOOD SPECIMENOrdering Facility: [facility] Address: [address] [place] [address] Performed By: #### 2 4323-8 ####[facility] ERNCLIA [id number] [place] [address] [place] Creatinine and Glomerular filtration rate.predicted panel (S/P/Bld) 78 mL/min/1.73m??? Normal >=60 [facility] Comment on above: Order Comment: Speci men Type: BLOOD SPECIMENOrdering Facility: [facility] Address: [address] [place] [address] Result Comment: Isabel mated Glomerular Filtration Rate [...] actual GFR. Performed By: #### 2 4323-8 ####[facility] [id number] [place] [address] [place] Glucose [Mass/Vol] 169 mg/dL High 74-99 [facility] Comment on above: Order Comment: Edgard wood Type: BLOOD SPECIMENOrdering Facility: [facility] Address: [address] [place] [address] Result Comment: The [place] Diabetes Association (ADA) provides guidance for cutoff [...] Standards of Medical Care in Diabetes 2016, [place] [employer] Association. Diabetes Care. 2016.39(Suppl 1). Performed By: #### 2 4323-8 ####[facility] [id number] [place] [address] [place] Potassium [Moles/Vol] 3.3 mmol/L Low 3.7-5.1 [facility] Comment on above: Order Comment: Edgard wood Type: BLOOD SPECIMENOrdering Facility: [facility] Address: [address] [place] [address] Performed By: #### 2 4323-8 ####[facility] [id number] [place] [address] [place] Protein [Mass/Vol] 6.4 g/dL Normal 6.3-8.0 [facility] Comment on above: Order Comment: Speci men Type: BLOOD SPECIMENOrdering Facility: [facility] Address: [address] [place] [address] Performed By: #### 2 4323-8 ####[facility] CENTERWMASONLIA [id number] [place] [address] [place] Sodium [Moles/Vol] 142 mmol/L Normal 136-144 [facility] Comment on above: Order Comment: Speci men Type: BLOOD SPECIMENOrdering Facility: [facility] Address: [address] [place] [address] Performed By: #### 2 4323-8 ####[facility] ERNCBarber [id number] [place] [address] [place] Urea nitrogen [Mass/Vol] 27 mg/dL High 9-24 [facility] Comment on above: Order Comment: Speci men Type: BLOOD SPECIMENOrdering Facility: [facility] Address: [address] [place] [address] Performed By: #### 2 4323-8 ####[facility] ERNCLIA [id number] [place] [address] [place] [facility] Prostate specific Ag [Mass/Vol] 0.15 ng/mL Normal <2.60 [facility] Comment on above: Order Comment: Speci men Type: BLOOD SPECIMEN [facility] Address: [address] [place] [address] Result Comment: Tota l PSA test methodology used is the Electrochemiluminescence Immunoassay by [employer]. Total PSA values by differing methodologies cannot be interchanged. Performed By: #### 4 537-7 #### [facility] CLIA [id number] [address] [place], [place] [address] [place] Basic Metabolic Profile (BMP )on 01-24-2024 BUN/CRE 24.1 RATIO High 10-20 [facility] Comment on above: Performed By: #### L 501.5200, L501.3620, L501.9520, L500.2500, L100.0100 ####[facility] [address] [place], [address] CA,Total 8.8 mg/dL Normal 8.5-10.1 [facility] Comment on above: Performed By: #### L 501.5200, L501.3620, L501.9520, L500.2500, L100.0100 ####[facility] [address] [place], [address] Chloride [Moles/Vol] 109 mmol/L High 98-107 [facility] Comment on above: Performed By: #### L 501.5200, L501.3620, L501.9520, L500.2500, L100.0100 ####[facility] [address] [place], [address] CO2 [Moles/Vol] 27.0 mmol/L Normal 21.0-32.0 [facility] Comment on above: Performed By: #### L 501.5200, L501.3620, L501.9520, L500.2500, L100.0100 ####[facility] [address] [place], [address] Creatinine [Mass/Vol] 1.16 mg/dL Normal 0.70-1.30 [facility] Comment on above: Result Comment: The validity of the calculated GFR GFRAA in patients over 70 years has not been determined. Clinical correlation is essential. Performed By: #### L 501.5200, L501.3620, L501.9520, L500.2500, L100.0100 ####[facility] [address] [place], [address] ECRCL 49.01 ml/min Normal [facility] Comment on above: Performed By: #### L 501.5200, L501.3620, L501.9520, L500.2500, L100.0100 ####[facility] [address] [place], [address] EST GFR - AA 77 mL/min Normal >60 [facility] Comment on above: Result Comment: Afri can Cong[place]ese GFR Calc Performed By: #### L 501.5200, L501.3620, L501.9520, L500.2500, L100.0100 ####[facility] [address] [place], [address] GAP 6 Normal 5-15 [facility] Comment on above: Performed By: #### L 501.5200, L501.3620, L501.9520, L500.2500, L100.0100 ####[facility] [address] [place], [address] GFR/1.73 sq M.predicted among non-blacks MDRD (S/P/Bld) [Vol rate/Area] 63 mL/min/{1.73_m2} Normal >60 [facility] Comment on above: Result Comment: Non- GFR Calc Performed By: #### L 501.5200, L501.3620, L501.9520, L500.2500, L100.0100 ####[facility] [address] [place], [address] Glucose [Mass/Vol] 120 mg/dL High 74-106 [facility] Comment on above: Result Comment: Fast ing Glucose result from 100 to 125 mg/dL suggests IMPAIRED HOMEOSTASIS per A.D.A. criteria. Performed By: #### L 501.5200, L501.3620, L501.9520, L500.2500, L100.0100 ####[facility] [address] [place], [address] Potassium [Moles/Vol] 3.8 mmol/L Normal 3.5-5.1 [facility] Comment on above: Performed By: #### L 501.5200, L501.3620, L501.9520, L500.2500, L100.0100 ####[facility] [address] [place], [address] Sodium [Moles/Vol] 143 mmol/L Normal 136-145 [facility] Comment on above: Performed By: #### L 501.5200, L501.3620, L501.9520, L500.2500, L100.0100 ####[facility] [address] [place], [address] Urea nitrogen [Mass/Vol] 28 mg/dL High 7-18 [facility] Comment on above: Performed By: #### L 501.5200, L501.3620, L501.9520, L500.2500, L100.0100 ####[facility] [address] [place], [address] [facility]2024 Brain/Head without Contrast [facility] Imaging Services [address] [place] [address] Brain/Head without Contrast MR#: [id number] Acct: [id number] Name: ALEX CARPENTER Rep #: [id number] : 1935 M 88 From: Bora Magallon PCP: Dr. Otto Subramanian MD Status: [facility] Study: Brain/Head without Contrast Date of Exam: 09/10 Exam# [id number] Ordering Dr: Sabas Nayak DO [id number] INDICATION: fall EXAMINATION: CT BRAIN - CT [...] 6:21 EST Reading Location ID and State: [address] [place] [address] Tel , Service support , CC: Dr. Otto Subramanian MD; Sabas Nayak DO Research Associate Policy: Signed Normal [facility] CBC W/Diff, Automatedon 11-0 Absolute Lymph 0.74 X10 3/uL Low 0.83-4.51 [facility] Comment on above: Performed By: #### L 501.5200, L501.3620, L501.9520, L500.2500, L100.0100 ####[facility] [address] [place], [address] Absolute Neut 8.9 X10 3/uL High 2.0-7.7 [facility] Comment on above: Performed By: #### L 501.5200, L501.3620, L501.9520, L500.2500, L100.0100 ####[facility] [address] [place], [address] Basophils/100 WBC (Bld) 0.6 % Normal 0-1 [facility] Comment on above: Performed By: #### L 501.5200, L501.3620, L501.9520, L500.2500, L100.0100 ####[facility] [address] [place], [address] Eosinophils/100 WBC (Bld) 1.6 % Normal 0-5 [facility] Comment on above: Performed By: #### L 501.5200, L501.3620, L501.9520, L500.2500, L100.0100 ####[facility] [address] [place], [address] Erythrocyte distribution width (RBC) [Ratio] 13.6 % Normal 11.6-14.6 [facility] Comment on above: Performed By: #### L 501.5200, L501.3620, L501.9520, L500.2500, L100.0100 ####[facility] [address] [place], [address] Hematocrit (Bld) [Volume fraction] 39.3 % Low 40-54 [facility] Comment on above: Performed By: #### L 501.5200, L501.3620, L501.9520, L500.2500, L100.0100 ####[facility] [address] [place], [address] Hemoglobin (Bld) [Mass/Vol] 13.1 g/dL Normal 13.0-16.5 [facility] Comment on above: Performed By: #### L 501.5200, L501.3620, L501.9520, L500.2500, L100.0100 ####[facility] [address] [place], [address] IG% 2.200 High 0.0-0.9 [facility] Comment on above: Result Comment: IG% - Immature Granulocytes (promyelocytes, myelocytes and metamyelocytes) > 1% indicates that a LEFT SHIFT is Present. Performed By: #### L 501.5200, L501.3620, L501.9520, L500.2500, L100.0100 ####[facility] [address] [place], [address] Lymphocytes/100 WBC (Bld) 6.8 % Low 19-41 [facility] Comment on above: Performed By: #### L 501.5200, L501.3620, L501.9520, L500.2500, L100.0100 ####[facility] [address] [place], [address] MCH (RBC) [Entitic mass] 31.3 pg Normal 27.0-32.0 [facility] Comment on above: Performed By: #### L 501.5200, L501.3620, L501.9520, L500.2500, L100.0100 ####[facility] [address] [place], [address] MCHC (RBC) [Mass/Vol] 33.3 g/dL Normal 32-36 [facility] Comment on above: Performed By: #### L 501.5200, L501.3620, L501.9520, L500.2500, L100.0100 ####[facility] [address] [place], [address] MCV (RBC) [Entitic vol] 94.0 fL Normal 80-94 [facility] Comment on above: Performed By: #### L 501.5200, L501.3620, L501.9520, L500.2500, L100.0100 ####[facility] [address] [place], [address] Monocytes/100 WBC (Bld) 7.0 % Normal 0-10 [facility] Comment on above: Performed By: #### L 501.5200, L501.3620, L501.9520, L500.2500, L100.0100 ####[facility] [address] [place], [address] Neutrophils/100 WBC (Bld) 81.8 % High 47-70 [facility] Comment on above: Performed By: #### L 501.5200, L501.3620, L501.9520, L500.2500, L100.0100 ####[facility] [address] [place], [address] Nucleated RBC (Bld) [#/Vol] 0 10*3/uL Normal 0-5 [facility] Comment on above: Performed By: #### L 501.5200, L501.3620, L501.9520, L500.2500, L100.0100 ####[facility] [address] [place], [address] Platelet mean volume (Bld) [Entitic vol] 10.3 fL Normal 6.2-12.0 [facility] Comment on above: Performed By: #### L 501.5200, L501.3620, L501.9520, L500.2500, L100.0100 ####[facility] [address] [place], [address] Platelets (Bld) [#/Vol] 210 10*3/uL Normal 150-450 [facility] Comment on above: Performed By: #### L 501.5200, L501.3620, L501.9520, L500.2500, L100.0100 ####[facility] [address] [place], [address] RBC (Bld) [#/Vol] 4.18 10*6/uL Low 4.6-6.2 [facility] Comment on above: Performed By: #### L 501.5200, L501.3620, L501.9520, L500.2500, L100.0100 ####[facility] [address] [place], [address] RDW SD 46.9 fl High 35.1-43.9 [facility] Comment on above: Performed By: #### L 501.5200, L501.3620, L501.9520, L500.2500, L100.0100 ####[facility] [address] [place], [address] WBC (Bld) [#/Vol] 10.9 10*3/uL Normal 4.4-11.0 [facility] Comment on above: Performed By: #### L 501.5200, L501.3620, L501.9520, L500.2500, L100.0100 ####[facility] [address] [place], [address] CPK Total, Creatine Kinaseon 01-24-2024 CPK TOTAL 36 U/L Low 39-308 [facility] Comment on above: Performed By: #### L 501.5200, L501.3620, L501.9520, L500.2500, L100.0100 ####[facility] [address] [place], [address] Emergency Department Summary on 01-24-2024 Emergency Department Summary [facility] Medical Records Department [address] [place] [address] Emergency Department Summary 01/24/24 MR#: [id number] Acct: [id number] Name: ALEX CARPENTER Rep #: [id number] : 1935 88 From: Sabas Nayak DO [...] is pain along his left rib cage [facility] Medical History Bilateral carotid bruits Nonrheumatic aortic (valve) stenosis Essential hypertension SHAMAR (obstructive sleep apnea) Old myocardial infarction Diastolic dysfunction Premature atrial contractions Cardiac murmur Hyperlipidemia Hypertension Atherosclerotic heart disease of [place] coronary artery without angina pectoris Home Medications ???Medication ???Instructions ???Recorded ???Last Taken ???Type aspirin 81 mg tablet,delayed 81 mg PO QDAY 11/06/17 Unknown History release aexzetbspal-ibuyigwhf-zpl C-Mn 750 1 ea PO DAILY 05/19/19 [...] PO DAILY 01/24/24 Unknown History (CoQ-10) omega 7-fxp-goq-fish oil 300 1 cap PO DAILY 01/24/24 [...] 01/24/24 04:39 Temperature 98.4 F 98.4 F [place] (more content not included)... Normal [facility] Lumbar Spine 2 or 3 Viewson 01-24-2024 Lumbar Spine 2 or 3 Views [facility] Imaging Services [address] [place], [place] [address] Lumbar Spine 2 or 3 Views MR#: [id number] Acct: [id number] Name: ALEX CARPENTER Rep #: [id number] : 1935 M 88 From: Bora Magallon PCP: Dr. Otto Subramanian MD Status: [facility] Study: Lumbar Spine 2 or 3 Views Date of Exam: Exam# [id number] Ordering Dr: Sabas Nayak DO [id number] INDICATION: fall EXAMINATION/TECHNIQUE: X-RAY - XR Spine [...] 6:09 EST Reading Location ID and State: [facility] / [place] Tel , Service support , CC: Dr. Otto Subramanian MD; Sabas Nayak DO Research Associate Policy: Signed Normal [facility] Magnesiumon 01-24-2024 Magnesium [Mass/Vol] 2.2 mg/dL Normal 1.6-2.[address] [facility] Comment on above: Performed By: #### L 501.5200, L501.3620, L501.9520, L500.2500, L100.0100 ####[facility] [address] [place], [address] Pelvis 1 or 2 Viewson 2023 Pelvis 1 or 2 Views [facility] Imaging Services [address] [place] [address] Pelvis 1 or 2 Views MR#: [id number] Acct: [id number] Name: ALEX CARPENTER Rep #: [id number] : 1935 88 From: Bora Magallon PCP: Dr. Otto Subramanian MD Status: [facility] Study: Pelvis 1 or 2 Views Date of Exam: 01/24/24 Exam# [id number] Ordering Dr: Sabas Nayak DO [id number] INDICATION: fall EXAMINATION/TECHNIQUE: X-RAY - XR Pelvis [...] 6:16 EST Reading Location ID and State: [facility] / [place] Tel , Service support , CC: Dr. Otto Subramanian MD; Sabas Nayak DO Research Associate Policy: Signed Normal [facility] Ribs Uni Min 3V w/PA Cheston 01-24-2024 Ribs Uni Min 3V w/PA Chest [facility] Imaging Services [address] [place], [place] [id number] Ribs Uni Min 3V w/PA Chest MR#: [id number] Acct: [id number] Name: ALEX CARPENTER Rep #: [id number] : 1935 M 88 From: Bora Magallon PCP: Dr. Otto Subramanian MD Status: [facility] Study: Ribs Uni Min 3V w/PA Chest Date of Exam: 01/23 Exam# [id number] Ordering Dr: Sabas Nayak DO [id number] INDICATION: pain EXAMINATION/TECHNIQUE: X-RAY - XR Ribs [...] 6:14 EST Reading Location ID and State: [facility] / [place] Tel , Service support , CC: Dr. Otto Subramanian MD; Sabas Nayak DO Research Associate Policy: Signed Normal [facility] Spine Cervical without Contr ason 01-24-2024 Spine Cervical without Contras [facility] Imaging Services [address] [facility] [place], [place] [address] Spine Cervical without Contras MR#: [id number] Acct: [id number] Name: ALEX CARPENTER Rep #: [id number] : 1935 M 88 From: Bora Magallon PCP: Dr. Otto Subramanian MD Status: [facility] Study: Spine Cervical without Contras Date of Exam: 03/25/23 Exam# [id number] Ordering Dr: Sabas Nayak DO [id number] INDICATION: fall EXAMINATION: CT CERVICAL SPINE - [...] 6:30 EST Reading Location ID and State: [facility] / [place] Tel , Service support , CC: Dr. Otto Subramanian MD; Sabas Nayak DO Research Associate Policy: Signed Normal [facility] Thoracic Spine 3 Viewson Thoracic Spine 3 Views [facility] Imaging Services [address] [place], [place] [id number] Thoracic Spine 3 Views MR#: [id number] Acct: [id number] Name: ALEX CARPENTER Rep #: [id number] : 1935 88 From: Bora Magallon PCP: Dr. Otto Subramanian MD Status: [facility] Study: Thoracic Spine 3 Views Date of Exam: 01/24/24 Exam# [id number] Ordering Dr: Sabas Nayak DO [id number] INDICATION: fall EXAMINATION/TECHNIQUE: X-RAY - XR Spine [...] 6:12 EST Reading Location ID and State: [facility] / [place] Tel , Service support , CC: Dr. Otto Subramanian MD; Sabas Nayak DO Research Associate Policy: Signed Normal [facility] Thyroid Stim Hormone (TSH)on 01-24-2024 TSH 4.030 uIU/mL High 0.358-3.740 [facility] Comment on above: Performed By: #### L 501.5200, L501.3620, L501.9520, L500.2500, L100.0100 ####[facility] [address] [place], [address] CNOVon 01-23-2024 CNOV Office Visit (UROLWS ) ----- ALEX CARPENTER ([id number]) 1935 M Date Time Provider Department 01/23/24 [...] Pranav Tate PA-C 01/23/2024 8:33 PM Signed [facility] EST PATIENT CLINIC NOTE SERVICE DATE: January 23, 2024 NAME: Alex Carpenter CHIEF COMPLAINT: Hx of Adenocarcinoma of Prostate and OAB HISTORY OF PRESENT ILLNESS: Alex Carpenter is a 88 year old male an established patient following up for Hx of Adenocarcinoma of Prostate and OAB The patient reports running out of his Ditropan and new Rx sent to [facility] today Continued follow-up with Medical Oncology PSA [...] 1 tablet by mouth once daily. Fish Oil-Denton-3 Fatty Acids 500-300 mg ORAL Cap Take [...] 0 ml (more content not included)... Normal [facility] UA DIP, URINE (POC)on 2023 BILIRUBIN UA (POCT) Negative Negative [facility] CLARITY UA (POCT) Clear [facility] COLOR UA (POCT) Yellow [facility] GLUCOSE UA (POCT) Negative Negative mg/dL [facility] Hemoglobin Ql (U) Negative Negative [facility] KETONE UA (POCT) Negative Negative mg/dL [facility] LEUKOCYTES UA (POCT) Negative Negative [facility] NITRITE UA (POCT) Negative Negative [facility] PH UA (POCT) 6.5 4.5 - 8.0 [facility] Protein Ql (U) Negative Negative mg/dL [facility] SPECIFIC GRAVITY UA (POCT) 1.025 1.005 - 1.030 [facility] UROBILINOGEN UA (POCT) 0.2 Vijaya l E.U./dL [facility] Location:[facility], [address] [place], [place], [address] [place] [address] POINT OF CARE [facility] CBC W Auto Differential pane l (Bld)on 12-12-2023 Basophils (Bld) [#/Vol] 0.04 10*3/uL Normal <0.11 [facility] Comment on above: Order Comment: Speci men Type: BLOOD SPECIMENOrdering Facility: [facility] Address: [address] [place] [address] Performed By: #### 5 7021-8 ####[facility] [id number] [place] [address] [place] Basophils/100 WBC (Bld) 0.5 % Normal [facility] Comment on above: Order Comment: Speci men Type: BLOOD SPECIMENOrdering Facility: [facility] Address: [address] [place] [address] Performed By: #### 5 7021-8 ####[facility] [id number] [place] [address] [place] Differential cell count method Nom (Bld) Auto Normal [facility] Comment on above: Order Comment: Speci men Type: BLOOD SPECIMENOrdering Facility: [facility] Address: [address] [place] [address] Performed By: #### 5 7021-8 ####[facility] AIXABIBIANABarber [id number] [place] [address] [place] Eosinophils (Bld) [#/Vol] 0.24 10*3/uL Normal <0.46 [facility] Comment on above: Order Comment: Speci men Type: BLOOD SPECIMENOrdering Facility: [facility] Address: [address] [place] [address] Performed By: #### 5 7021-8 ####[facility] ERJANA [id number] [place] [address] [place] Eosinophils/100 WBC (Bld) 3.1 % Normal [facility] Comment on above: Order Comment: Speci men Type: BLOOD SPECIMENOrdering Facility: [facility] Address: [address] [place] [address] Performed By: #### 5 7021-8 ####[facility] ERJANA [id number] [place] [address] [place] Erythrocyte distribution width (RBC) [Ratio] 13.1 % Normal 11.5-15.0 [facility] Comment on above: Order Comment: Speci men Type: BLOOD SPECIMENOrdering Facility: [facility] Address: [address] [place] [address] Performed By: #### 5 7021-8 ####[facility] ERMASONLIA [id number] [place] [address] [place] Hematocrit (Bld) [Volume fraction] 39.4 % Normal 39.0-51.0 [facility] Comment on above: Order Comment: Speci men Type: BLOOD SPECIMENOrdering Facility: [facility] Address: [address] [place] [address] Performed By: #### 5 7021-8 ####[facility] ERNCLIA [id number] [place] [address] [place] Hemoglobin (Bld) [Mass/Vol] 13.3 g/dL Normal 13.0-17.0 [facility] Comment on above: Order Comment: Speci men Type: BLOOD SPECIMENOrdering Facility: [facility] Address: [address] [place] [address] Performed By: #### 5 7021-8 ####[facility] [id number] [place] [address] [place] Immature granulocytes (Bld) [#/Vol] 0.05 10*3/uL Normal <0.10 [facility] Comment on above: Order Comment: Speci men Type: BLOOD SPECIMENOrdering Facility: [facility] Address: [address] [place] [address] Performed By: #### 5 7021-8 ####[facility] [id number] [place] [address] [place] Immature granulocytes/100 WBC (Bld) 0.6 % Normal [facility] Comment on above: Order Comment: Speci men Type: BLOOD SPECIMENOrdering Facility: [facility] Address: [address] [place] [address] Performed By: #### 5 7021-8 ####[facility] HOSPITALLIA [id number] [place] [address] [place] Lymphocytes (Bld) [#/Vol] 0.75 10*3/uL Low 1.00-4.00 [facility] Comment on above: Order Comment: Speci men Type: BLOOD SPECIMENOrdering Facility: [facility] Address: [address] [place] [address] Performed By: #### 5 7021-8 ####[facility] [id number] [place] [address] [place] Lymphocytes/100 WBC (Bld) 9.5 % Normal [facility] Comment on above: Order Comment: Speci men Type: BLOOD SPECIMENOrdering Facility: [facility] Address: [address] [place] [address] Performed By: #### 5 7021-8 ####[facility] ERKALEIGH [id number] [place] [address] [place] MCH (RBC) [Entitic mass] 30.9 pg Normal 26.0-34.0 [facility] Comment on above: Order Comment: Speci men Type: BLOOD SPECIMENOrdering Facility: [facility] Address: [address] [place] [address] Performed By: #### 5 7021-8 ####[facility] ERJANA [id number] [place] [address] [place] MCHC (RBC) [Mass/Vol] 33.8 g/dL Normal 30.5-36.0 [facility] Comment on above: Order Comment: Speci men Type: BLOOD SPECIMENOrdering Facility: [facility] Address: [address] [place] [address] Performed By: #### 5 7021-8 ####[facility] ERNCCENTR[facility] [id number] [place] [address] [place] MCV (RBC) [Entitic vol] 91.6 fL Normal 80.0-100.[address] [facility] Comment on above: Order Comment: Speci men Type: BLOOD SPECIMENOrdering Facility: [facility] Address: [address] [place] [address] Performed By: #### 5 7021-8 ####[facility] ERNCLI [id number] [place] [address] [place] Monocytes (Bld) [#/Vol] 0.48 10*3/uL Normal <0.87 [facility] Comment on above: Order Comment: Speci men Type: BLOOD SPECIMENOrdering Facility: [facility] Address: [address] [place] [address] Performed By: #### 5 7021-8 ####[facility]ENTERWPRLIA [id number] [place] [address] [place] Monocytes/100 WBC (Bld) 6.1 % Normal [facility] Comment on above: Order Comment: Speci men Type: BLOOD SPECIMENOrdering Facility: [facility] Address: [address] [place] [address] Performed By: #### 5 7021-8 ####[facility] ERMASONA [id number] [place] [address] [place] Neutrophils (Bld) [#/Vol] 6.30 10*3/uL Normal 1.45-7.50 [facility] Comment on above: Order Comment: Speci men Type: BLOOD SPECIMENOrdering Facility: [facility] Address: [address] [place] [address] Performed By: #### 5 7021-8 ####[facility] [id number] [place] [address] [place] Neutrophils/100 WBC (Bld) 80.2 % Normal [facility] Comment on above: Order Comment: Speci men Type: BLOOD SPECIMENOrdering Facility: [facility] Address: [address] [place] [address] Performed By: #### 5 7021-8 ####[facility] HOSPITALLIA [id number] [place] [address] [place] Nucleated RBC (Bld) [#/Vol] 10*3/uL Normal <0.01 [facility] Comment on above: Order Comment: Speci men Type: BLOOD SPECIMENOrdering Facility: [facility] Address: [address] [place] [address] Performed By: #### 5 7021-8 ####[facility] ADRIANWMASONLIA [id number] [place] [address] [place] Nucleated RBC/100 WBC (Bld) [Ratio] 0.0 /100 WBC Normal [facility] Comment on above: Order Comment: Speci men Type: BLOOD SPECIMENOrdering Facility: [facility] Address: [address] [place] [address] Performed By: #### 5 7021-8 ####[facility] ERMASONLIA [id number] [place] [address] [place] Platelet mean volume (Bld) [Entitic vol] 10.4 fL Normal 9.0-12.7 [facility] Comment on above: Order Comment: Speci men Type: BLOOD SPECIMENOrdering Facility: [facility] Address: [address] [place] [address] Performed By: #### 5 7021-8 ####[facility] ERNCLIA [id number] [place] [address] [place] Platelets (Bld) [#/Vol] 213 10*3/uL Normal 150-400 [facility] Comment on above: Order Comment: Speci men Type: BLOOD SPECIMENOrdering Facility: [facility] Address: [address] [place] [address] Performed By: #### 5 7021-8 ####[facility]PITALLIA [id number] [place] [address] [place] RBC (Bld) [#/Vol] 4.30 10*6/uL Normal 4.20-6.00 [facility] Comment on above: Order Comment: Speci men Type: BLOOD SPECIMENOrdering Facility: [facility] Address: [address] [place] [address] Performed By: #### 5 7021-8 ####[facility]ITALLIA [id number] [place] [address] [place] WBC (Bld) [#/Vol] 7.86 10*3/uL Normal 3.70-11.00 [facility] Comment on above: Order Comment: Speci men Type: BLOOD SPECIMENOrdering Facility: [facility] Address: [place] [address] Performed By: #### 5 7021-8 ####[facility] CAROLIN [facility] [id number] [place] [address] [place] CNOVSPon 12-12-2023 CNOVSP Visit (SP) Office (HEMAWS) ----- ALEX CARPENTER ([id number]) 1935 M Date Time Provider Department 12/12/23 10:00 AM TREATMENT RM 14 [facility] WSTRHEMAWS During your visit today, we recorded the following information about you: Referring Provider: BREE CORNEJO [[id number]] Allergies As of Date: 12/12/2023 Noted Allergy [...] 100 mL (ZOMETA)Disp: Rfl: BCN NURSING COMMUNICATION [[id number]] Order #: [id number]: 1 STANDING Prescriptions as of 12/12/2023 - [...] tablet by mouth once daily. - Fish Oil-Denton-3 Fatty Acids 500-300 mg ORAL Cap Take one(1) tablet daily. 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 Lab Results Component Value Date PSA 0.15 09/19/2023 PSA 0.17 (more content not included)... Normal [facility] Comprehensive metabolic 2000 panelon 12-12-2023 Albumin [Mass/Vol] 3.9 g/dL Normal 3.9-4.9 [facility] Comment on above: Order Comment: Speci men Type: BLOOD SPECIMENOrdering Facility: [facility] Address: [address] [place], [place] [address] Performed By: #### 2 4323-8 ####[facility] [id number] [place] [address] [place] ALP [Catalytic activity/Vol] 89 U/L Normal 38-113 [facility] Comment on above: Order Comment: Speci men Type: BLOOD SPECIMENOrdering Facility: [facility] Address: [address] [place], [place] [address] Performed By: #### 2 4323-8 ####[facility] [id number] [place] [address] [place] ALT [Catalytic activity/Vol] 10 U/L Normal 10-54 [facility] Comment on above: Order Comment: Speci men Type: BLOOD SPECIMENOrdering Facility: [facility] Address: [address] [place] [address] Performed By: #### 2 4323-8 ####[facility] CAROLIN AIXALIA [id number] [place] [address] [place] Anion gap [Moles/Vol] 10 mmol/L Normal 8-15 [facility] Comment on above: Order Comment: Speci men Type: BLOOD SPECIMENOrdering Facility: [facility] Address: [address] [place] [address] Performed By: #### 2 4323-8 ####[facility] SHEAWNCLIA [id number] [place] [address] [place] AST [Catalytic activity/Vol] 15 U/L Normal 14-40 [facility] Comment on above: Order Comment: Speci men Type: BLOOD SPECIMENOrdering Facility: [facility] Address: [address] [place] [address] Performed By: #### 2 4323-8 ####[facility] ADRIANWNCLIA [id number] [place] [address] [place] Bilirubin [Mass/Vol] 0.7 mg/dL Normal 0.2-1.3 [facility] Comment on above: Order Comment: Speci men Type: BLOOD SPECIMENOrdering Facility: [facility] Address: [address] [place] [address] Performed By: #### 2 4323-8 ####[facility] MILLWNCLIA [id number] [place] [address] [place] Calcium [Mass/Vol] 9.4 mg/dL Normal 8.5-10.2 [facility] Comment on above: Order Comment: Speci men Type: BLOOD SPECIMENOrdering Facility: [facility] Address: [address] [place] [address] Performed By: #### 2 4323-8 ####[facility] MILLTOWNCLIA [id number] [place] [address] [place] Chloride [Moles/Vol] 105 mmol/L Normal 98-107 [facility] Comment on above: Order Comment: Speci men Type: BLOOD SPECIMENOrdering Facility: [facility] Address: [address] [place] [address] Performed By: #### 2 4323-8 ####[facility] HOS[facility]ITALLIA [id number] [place] [address] [place] CO2 [Moles/Vol] 26 mmol/L Normal 22-30 [facility] Comment on above: Order Comment: Speci men Type: BLOOD SPECIMENOrdering Facility: [facility] Address: [address] [place] [address] Performed By: #### 2 4323-8 ####[facility] [id number] [place] [address] [place] Creatinine [Mass/Vol] 1.00 mg/dL Normal 0.73-1.22 [facility] Comment on above: Order Comment: Speci men Type: BLOOD SPECIMENOrdering Facility: [facility] Address: [address] [place] [address] Performed By: #### 2 4323-8 ####[facility] [id number] [address] OF [facility] Creatinine and Glomerular filtration rate.predicted panel (S/P/Bld) 73 mL/min/1.73m??? Normal >=60 [facility] Comment on above: Order Comment: Speci men Type: BLOOD SPECIMENOrdering Facility: [facility] Address: [address] [place] [address] Result Comment: Isabel mated Glomerular Filtration Rate [...] actual GFR. Performed By: #### 2 4323-8 ####[facility] SHEAWNCLIA [id number] [place] [address] [place] Glucose [Mass/Vol] 153 mg/dL High 74-99 [facility] Comment on above: Order Comment: Edgard wood Type: BLOOD SPECIMENOrdering Facility: [facility] Address: [address] [place] [address] Result Comment: The [place] [employer] (ADA) provides guidance for cutoff [...] Standards of Medical Care in Diabetes 2016, [place] [employer]. Diabetes Care. 2016.39(Suppl 1). Performed By: #### 2 4323-8 ####[facility] ERNCLIA [id number] [place] [address] [place] Potassium [Moles/Vol] 3.3 mmol/L Low 3.7-5.1 [facility] Comment on above: Order Comment: Edgard wood Type: BLOOD SPECIMENOrdering Facility: [facility] Address: [address] [place] [address] Performed By: #### 2 4323-8 ####[facility] ADRIANFAIRMONTNCLIA [id number] [place] [address] [place] Protein [Mass/Vol] 6.3 g/dL Normal 6.3-8.0 [facility] Comment on above: Order Comment: Speci men Type: BLOOD SPECIMENOrdering Facility: [facility] Address: [address] [place] [address] Performed By: #### 2 4323-8 ####[facility] CATNCPACO [id number] [place] [address] [place] Sodium [Moles/Vol] 141 mmol/L Normal 136-144 [facility] Comment on above: Order Comment: Speci men Type: BLOOD SPECIMENOrdering Facility: [facility] Address: [address] [place] [address] Performed By: #### 2 4323-8 ####[facility] ADRIANFAIRMONTNCLIA [id number] [place] [address] [place] Urea nitrogen [Mass/Vol] 30 mg/dL High 9-24 [facility] Comment on above: Order Comment: Speci men Type: BLOOD SPECIMENOrdering Facility: [facility] Address: [address] [place] [address] Performed By: #### 2 4323-8 ####[facility] ERNCLIA [id number] [place] [address] [place] PSA [facility] Prostate specific Ag [Mass/Vol] 0.12 ng/mL Normal <2.60 [facility] Comment on above: Order Comment: Speci men Type: BLOOD SPECIMEN [facility] Address: [address] [place] [address] Result Comment: Tota l PSA test methodology used is the Electrochemiluminescence Immunoassay by [employer]. Total PSA values by differing methodologies cannot be interchanged. Performed By: #### 4 537-7 #### [facility] CLIA [id number] [address] [place], [place] [address] [place] [address] [place] Absolute lymphocyte countOrd ered By: Marcos Ferraro on 10-15-2022 Lymphocytes Auto (Unsp spec) [#/Vol] 1.36 10*3/uL 0.83-4.51 [facility] Basophil percentageOrdered B y: Marcos Ferraro on 10-15-2022 Basophils/100 WBC (Bld) 0.4 % 0-1 [facility] Bilirubin [Mass/Vol] 1.10 mg/dL 0.20-1.00 [facility] Comment on above: For patients on eltr ombopag therapy, use of Dimension [place] TBIL is not recommended. Chloride [Moles/Vol] 108 mmol/L 98-107 [facility] Eosinophils/100 WBC (Bld) 3.0 % 0-5 [facility] Glucose [Mass/Vol] 124 mg/dL 74-106 [facility] Comment on above: Fasting Glucose resu lt from 100 to 125 mg/dL suggests IMPAIRED HOMEOSTASIS per A.D.A. criteria. Neutrophils (Bld) [#/Vol] 7.1 10*3/uL 2.0-7.7 [facility] Neutrophils/100 WBC (Bld) 73.5 % 47-70 [facility] Potassium [Moles/Vol] 3.1 mmol/L 3.5-5.1 [facility] Protein [Mass/Vol] 6.6 g/dL 6.4-8.2 [facility] Sodium [Moles/Vol] 143 mmol/L 136-145 [facility] WBC (Bld) [#/Vol] 9.7 10*3/uL 4.4-11.0 [facility] Blood erythrocytes count (nu mber/volume)Ordered By: Marcos Ferraro on 10-15-2022 RBC (Bld) [#/Vol] 4.38 10*6/uL 4.6-6.2 [facility] Blood hemoglobin measurement (mass/volume)Ordered By: Marcos Ferraro on 10-15-2022 Hemoglobin (Bld) [Mass/Vol] 13.9 g/dL 13.0-16.5 [facility] Blood lymphocytes/100 leukoc ytesOrdered By: Marcos Ferraro on 10-15-2022 Lymphocytes/100 WBC (Bld) 14.1 % 19-41 [facility] Blood monocytes/100 leukocyt esOrdered By: Marcos Ferraro on 10-15-2022 Monocytes/100 WBC (Bld) 8.5 % 0-10 [facility] Blood platelet mean volumeOr dered By: Marcos Ronan on 10-15-2022 Platelet mean volume (Bld) [Entitic vol] 11.2 fL 6.2-12.0 [facility] Determination of erythrocyte mean corpuscular volume (MCV)Ordered By: Marcos Ronan on 10-15-2022 MCV (RBC) [Entitic vol] 93.2 fL 80-94 [facility] Hematocrit Auto (Bld) [Volum e fraction]Ordered By: Marcos Ronan on 10-15-2022 Hematocrit (Bld) [Volume fraction] 40.8 % 40-54 [facility] Laboratory - Chemistry and C hemistry - challengeOrdered By: [facility] on 10-15-2022 ALP [Catalytic activity/Vol] 90 U/L 45-117 [facility] ALT [Catalytic activity/Vol] 21 U/L 16-61 [facility] CO2 [Moles/Vol] 30.0 mmol/L 21.0-32.0 [facility] Globulin (S) [Mass/Vol] 3.1 g/dL 2.2-4.2 [facility] Lipase [Catalytic activity/Vol] 29 U/L 13-75 [facility] Comment on above: Please note:LIPASE r evised reference range effective 22. New Lipase methodology. Expected to produce lower values than the previous assay method. NEW Reference Range: 13 - 75 U/L Urea nitrogen/Creatinine [Mass ratio] 18.6 mg/mg 10-20 [facility] Laboratory - Hematology and Cell countsOrdered By: Marcos Ronan on 10-15-2022 Erythrocyte distribution width (RBC) [Entitic vol] 43.7 fL 35.1-43.9 [facility] Erythrocyte distribution width (RBC) [Ratio] 12.7 % 11.6-14.6 [facility] Immature granulocytes/100 WBC (Bld) 0.500 % 0.0-0.9 [facility] Comment on above: IG% - Immature Granu locytes (promyelocytes, myelocytes and metamyelocytes) > 1% indicates that a LEFT SHIFT is Present. MCH (RBC) [Entitic mass] 31.7 pg 27.0-32.0 [facility] Nucleated RBC/100 WBC (Bld) [Ratio] 0 % 0-5 [facility] Auto (RBC) [Mass/Vol]Or dered By: Marcos Ferraro on 10-15-2022 MCHC (RBC) [Mass/Vol] 34.1 g/dL 32-36 [facility] No Panel InformationOrdered By: Marcos Ferraro on 10-15-2022 Estimated Creatinine Clearance Calc 43.47 ml/min [facility] Estimated GFR (MDRD) Amer 75 mL/min >60 [facility] Comment on above: GFR Calc Estimated GFR (MDRD) Non-Af Amer 62 mL/min >60 [facility] Comment on above: Non- GFR Calc Platelets bldOrdered By: Davide Ferraro on 10-15-2022 Platelets (Bld) [#/Vol] 254 10*3/uL 150-450 [facility] Serum or plasma albumin lilly urement (mass/volume)Ordered By: Marcos Ferraro on 10-15-2022 Albumin [Mass/Vol] 3.5 g/dL 3.2-5.0 [facility] Serum or plasma albumin/glob ulin mass ratioOrdered By: Marcos Ferraro on 10-15-2022 Albumin/Globulin [Mass ratio] 1.1 {ratio} 0.9-2.4 [facility] Serum or plasma calcium lilly urement (mass/volume)Ordered By: Marcos Ferraro on 10-15-2022 Calcium [Mass/Vol] 9.0 mg/dL 8.5-10.1 [facility] Serum or plasma creatinine m easurement (mass/volume)Ordered By: Marcos Ferraro on 10-15-2022 Creatinine [Mass/Vol] 1.18 mg/dL 0.70-1.30 [facility] Comment on above: The validity of the calculated GFR & GFRAA in patients over 70 years has not been determined. Clinical correlation is essential. Serum or plasma urea nitroge n measurement (mass/volume)Ordered By: Marcos Ferraro on 10-15-2022 Urea nitrogen [Mass/Vol] 22 mg/dL 7-18 [facility] Thin prep Papanicolaou smear with manual screeningOrdered By: Marcos Ferraro on 10-15-2022 Thin prep Papanicolaou smear with manual screening 21 U/L 15-37 [facility] Thin prep Papanicolaou smear with manual screening 5 5-15 [facility] Laboratory - Chemistry and C hemistry - challengeOrdered By: Dr. Subramanian on 07-28-2022 Albumin [Mass/Vol] 3.5 g/dL 2.9-4.4 [facility] Cobalamin (Vitamin B12) [Mass/Vol] 220 pg/mL 211-911 [facility] No Panel InformationOrdered By: Dr. Subramanian on 07-28-2022 Addendum Document Comment . [facility] Comment on above: The SPE pattern appe ars unremarkable. Evidence ofmonoclonal protein is not apparent.Performed at: [facility] [id number] Director: Hilton Gallegos PhD, Phone: [phone] Nnexn-9-Tynqnudzn 0.2 g/dL 0.0-0.4 [facility] Hoipz-8-Qoawnwkef 0.7 g/dL 0.4-1.0 [facility] Gamma Globulins 0.6 g/dL 0.4-1.8 [facility] Thyroid Stimulating Hormone (TSH) 2.71 uIU/mL 0.358-3.74 [facility] Vitamin D 25-Hydroxy 65.8 ng/mL [facility] Comment on above: Vitamin D 25(OH) Sta tus Range Deficiency <20 ng/mL (50nmol/L) Insufficiency 20 - 30 ng/mL (50 - 75 nmol/L) Sufficiency 30 - 100 ng/mL (75 - 250 nmol/L) Toxicity >100 ng/mL (>250 nmol/L) Protein Fractions Elph [Inte rp]Ordered By: Dr. Subramanian on 07-28-2022 Protein Fractions [Interp] Comment . [facility] Comment on above: Protein electrophore sis scan will follow via computer,mail, or kiln repairer delivery. Serum albumin to globulin ra claudette by protein electrophoresisOrdered By: Dr. Subramanian on 07-28-2022 Albumin/Globulin Elph [Mass ratio] 1.5 0.7-1.7 [facility] Serum globulin measurement ( mass/volume)Ordered By: Dr. Subramanian on 07-28-2022 Globulin (S) [Mass/Vol] 2.4 g/dL 2.2-3.9 [facility] Serum or plasma beta globuli n measurement by electrophoresis (mass/volume)Ordered By: Dr. Subramanian on 07-28-2022 Beta globulin Elph [Mass/Vol] 0.9 g/dL 0.7-1.3 [facility] Serum or plasma folate measu rement (mass/volume)Ordered By: Dr. Subramanian on 07-28-2022 Folate [Mass/Vol] 10.30 ng/mL 3.1-55.4 [facility] Thin prep Papanicolaou smear with manual screeningOrdered By: Dr. Subramanian on 07-28-2022 Thin prep Papanicolaou smear with manual screening See comment [facility] Comment on above: NOT OBSERVED Total protein bloodOrdered B y: Dr. Subramanian on 07-28-2022 Protein [Mass/Vol] 5.9 g/dL 6.0-8.5 [facility] Absolute lymphocyte countOrd ered By: Dr. Staton on 06-22-2022 Lymphocytes Auto (Unsp spec) [#/Vol] 0.93 10*3/uL 0.83-4.51 [facility] Basophil percentageOrdered B y: Dr. Staton on 06-22-2022 Basophils/100 WBC (Bld) 0.7 % 0-1 [facility] Bilirubin [Mass/Vol] 0.40 mg/dL 0.20-1.00 [facility] Comment on above: For patients on eltr ombopag therapy, use of Dimension [place] TBIL is not recommended. Chloride [Moles/Vol] 109 mmol/L 98-107 [facility] Eosinophils/100 WBC (Bld) 5.5 % 0-5 [facility] Glucose [Mass/Vol] 112 mg/dL 74-106 [facility] Comment on above: Fasting Glucose resu lt from 100 to 125 mg/dL suggests IMPAIRED HOMEOSTASIS per A.D.A. criteria. Neutrophils (Bld) [#/Vol] 5.7 10*3/uL 2.0-7.7 [facility] Neutrophils/100 WBC (Bld) 70.4 % 47-70 [facility] Potassium [Moles/Vol] 4.0 mmol/L 3.5-5.1 [facility] Protein [Mass/Vol] 6.9 g/dL 6.4-8.2 [facility] Sodium [Moles/Vol] 142 mmol/L 136-145 [facility] WBC (Bld) [#/Vol] 8.1 10*3/uL 4.4-11.0 [facility] Basophil percentage 0 SEEN /hpf 0-5 [facility] Bilirubin Test strip Ql (U)O rdered By: Dr. Staton on 06-22-2022 Bilirubin Ql (U) Negative Negative [facility] Blood erythrocytes count (nu mber/volume)Ordered By: Dr. Staton on 06-22-2022 RBC (Bld) [#/Vol] 4.48 10*6/uL 4.6-6.2 [facility] Blood hemoglobin measurement (mass/volume)Ordered By: Dr. Staton on 06-22-2022 Hemoglobin (Bld) [Mass/Vol] 14.2 g/dL 13.0-16.5 [facility] Blood lymphocytes/100 leukoc ytesOrdered By: Dr. Staton on 06-22-2022 Lymphocytes/100 WBC (Bld) 11.6 % 19-41 [facility] Blood monocytes/100 leukocyt esOrdered By: Dr. Staton on 06-22-2022 Monocytes/100 WBC (Bld) 11.1 % 0-10 [facility] Blood platelet mean volumeOr dered By: Dr. Staton on 06-22-2022 Platelet mean volume (Bld) [Entitic vol] 10.3 fL 6.2-12.0 [facility] Determination of erythrocyte mean corpuscular volume (MCV)Ordered By: Dr. Staton on 06-22-2022 MCV (RBC) [Entitic vol] 96.4 fL 80-94 [facility] Hematocrit Auto (Bld) [Volum e fraction]Ordered By: Dr. Staton on 06-22-2022 Hematocrit (Bld) [Volume fraction] 43.2 % 40-54 [facility] Ketones Test strip Ql (U)Ord ered By: Dr. Staton on 06-22-2022 Ketones Ql (U) Negative Negative [facility] Laboratory - Chemistry and C hemistry - challengeOrdered By: Dr. Staton on 06-22-2022 ALP [Catalytic activity/Vol] 93 U/L 45-117 [facility] ALT [Catalytic activity/Vol] 17 U/L 16-61 [facility] CO2 [Moles/Vol] 28.0 mmol/L 21.0-32.0 [facility] Globulin (S) [Mass/Vol] 3.3 g/dL 2.2-4.2 [facility] Urea nitrogen/Creatinine [Mass ratio] 18.2 mg/mg 10-20 [facility] Laboratory - Hematology and Cell countsOrdered By: Dr. Staton on 06-22-2022 Erythrocyte distribution width (RBC) [Entitic vol] 45.6 fL 35.1-43.9 [facility] Erythrocyte distribution width (RBC) [Ratio] 12.8 % 11.6-14.6 [facility] Immature granulocytes/100 WBC (Bld) 0.700 % 0.0-0.9 [facility] Comment on above: IG% - Immature Granu locytes (promyelocytes, myelocytes and metamyelocytes) > 1% indicates that a LEFT SHIFT is Present. MCH (RBC) [Entitic mass] 31.7 pg 27.0-32.0 [facility] Nucleated RBC/100 WBC (Bld) [Ratio] 0 % 0-5 [facility] MCHC Auto (RBC) [Mass/Vol]Or dered By: Dr. Staton on 06-22-2022 MCHC (RBC) [Mass/Vol] 32.9 g/dL 32-36 [facility] Mucus LM Ql (Urine sed)Order ed By: Dr. Staton on 06-22-2022 Mucus Ql (Urine sed) 0 SEEN /hpf [facility] Nitrite Test strip Ql (U)Ord ered By: Dr. Staton on 06-22-2022 Nitrite Ql (U) Negative Negative [facility] No Panel InformationOrdered By: Dr. Staton on 06-22-2022 Estimated Creatinine Clearance Calc 43.18 ml/min [facility] Estimated GFR (MDRD) Amer 73 mL/min >60 [facility] Comment on above: GFR Calc Estimated GFR (MDRD) Non-Af Amer 61 mL/min >60 [facility] Comment on above: Non- GFR Calc Platelets bldOrdered By: Dr. Staton on 06-22-2022 Platelets (Bld) [#/Vol] 282 10*3/uL 150-450 [facility] Protein Test strip Ql (U)Ord ered By: Dr. Staton on 06-22-2022 Protein Ql (U) Negative Negative [facility] Serum or plasma albumin lilly urement (mass/volume)Ordered By: Dr. Staton on 06-22-2022 Albumin [Mass/Vol] 3.6 g/dL 3.2-5.0 [facility] Serum or plasma albumin/glob ulin mass ratioOrdered By: Dr. Staton on 06-22-2022 Albumin/Globulin [Mass ratio] 1.1 {ratio} 0.9-2.4 [facility] Serum or plasma calcium lilly urement (mass/volume)Ordered By: Dr. Staton on 06-22-2022 Calcium [Mass/Vol] 8.8 mg/dL 8.5-10.1 [facility] Serum or plasma creatinine m easurement (mass/volume)Ordered By: Dr. Staton on 06-22-2022 Creatinine [Mass/Vol] 1.21 mg/dL 0.70-1.30 [facility] Comment on above: The validity of the calculated GFR & GFRAA in patients over 70 years has not been determined. Clinical correlation is essential. Serum or plasma urea nitroge n measurement (mass/volume)Ordered By: Dr. Staton on 06-22-2022 Urea nitrogen [Mass/Vol] 22 mg/dL 7-18 [facility] Squamous epithelial cells de tection in urine sediment by light microscopyOrdered By: Dr. Staton on 06-22-2022 Epithelial cells.squamous LM Ql (Urine sed) 0 SEEN /hpf 0-5 [facility] Thin prep Papanicolaou smear with manual screeningOrdered By: Dr. Staton on 06-22-2022 Thin prep Papanicolaou smear with manual screening 17 U/L 15-37 [facility] Thin prep Papanicolaou smear with manual screening 5 5-15 [facility] Urine blood detectionOrdered By: Dr. Staton on 06-22-2022 RBC Ql (U) Negative Negative [facility] RBC Ql (U) 0 SEEN /hpf 0-5 [facility] Urine clarityOrdered By: Dr. Staton on 06-22-2022 Clarity (U) Clear Clear [facility] Urine color determinationOrd ered By: Dr. Staton on 06-22-2022 Color (U) Yellow Yellow [facility] Urine glucose detectionOrder ed By: Dr. Staton on 06-22-2022 Glucose Ql (U) Normal mg/dl Normal [facility] Urine leukocyte esterase det ection by dipstickOrdered By: Dr. Staton on 06-22-2022 Leukocyte esterase Test strip Ql (U) Negative Negative [facility] Urine pHOrdered By: Dr. Whitney maloney on 06-22-2022 pH (U) 7.0 [pH] 5.0 - 8.0 [facility] Urine sediment bacteria coun t by microscopy (number/high power field)Ordered By: Dr. Staton on 06-22-2022 Bacteria LM.HPF (Urine sed) [#/Area] RARE /hpf None Seen [facility] Urine specific gravity measu rementOrdered By: Dr. Staton on 06-22-2022 Specific gravity (U) [Rel density] 1.010 1.002-1.030 [facility] Urobilinogen Auto test strip Ql (U)Ordered By: Dr. Staton on 06-22-2022 Urobilinogen Ql (U) Normal mg/dl Normal [facility] VITAMIN D 25 HYDROXYon 10-08 25-hydroxyvitamin D3 [Mass/Vol] 24.6 ng/mL Low 31.0 - 80.0 ng/mL [facility] UA DIP, URINE (POC)on 2021 BILIRUBIN UA (POCT) Negative Negative [facility] CLARITY UA (POCT) Cloudy [facility] COLOR UA (POCT) Dark yellow [facility] GLUCOSE UA (POCT) Negative Negative mg/dL [facility] HEMOGLOBIN/BLOOD UA (POCT) Negative Negative [facility] KETONE UA (POCT) Negative Negative mg/dL [facility] LEUKOCYTES UA (POCT) Negative Negative [facility] NITRITE UA (POCT) Negative Negative [facility] PH UA (POCT) 7.5 4.5 - 8.0 [facility] Protein Ql (U) Negative Negative mg/dL [facility] SPECIFIC GRAVITY UA (POCT) 1.020 1.005 - 1.030 [facility] UROBILINOGEN UA (POCT) 1.0 E.U./dL Vijaya l E.U./dL [facility] Basophil percentageon 2021 Chloride [Moles/Vol] 107 mmol/L 98-107 [facility] Work Phone: Glucose [Mass/Vol] 109 mg/dL 74-106 [facility] Work Phone: Comment on above: Fasting Glucose resu lt from 100 to 125 mg/dL suggests IMPAIRED HOMEOSTASIS per A.D.A. criteria. Potassium [Moles/Vol] 3.2 mmol/L 3.5-5.1 [facility] Work Phone: Sodium [Moles/Vol] 143 mmol/L 136-145 [facility] Work Phone: Erythrocyte sedimentation ra brigid 09-17-2021 ESR (Bld) [Velocity] 28 mm/h 0-20 [facility] Work Phone: Interpretation of Borrelia b urgdorferi antibody assayon 09-17-2021 B. burgdorferi Ab (S) [Interp] REF LAB [facility] Work Phone: Laboratory - Chemistry and C hemistry - challengeon 09-17-2021 CO2 [Moles/Vol] 28.0 mmol/L 21.0-32.0 [facility] Work Phone: Magnesium [Mass/Vol] 2.4 mg/dL 1.6-2.6 [facility] Work Phone: Urea nitrogen/Creatinine [Mass ratio] 21.9 mg/mg 10-20 [facility] Work Phone: No Panel Informationon 09-17 C-Reactive Protein High Sensitivity 5.03 mg/L <3.00 [facility] Work Phone: Comment on above: Low Relative Risk of CVD <1.0 mg/L Average Relative Risk of CVD 1.0 - 3.0 mg/L High Relative Risk of CVD >3.0 mg/L Estimated GFR (MDRD) Amer 96 mL/min >60 [facility] Work Phone: Comment on above: GFR Calc Estimated GFR (MDRD) Non-Af Amer 79 mL/min >60 [facility] Work Phone: Comment on above: Non- GFR Calc Prostate Specific Antigen Total 246.00 ng/mL 0.0-4.0 [facility] Work Phone: Comment on above: This test was perfor med using the TPSA assay method for the[employer] chemistry system. Values obtained with differentassay methods cannot be used interchangably.When changing PSA assays in the course of monitoring apatient, additional sequential testing should be carriedout to confirm baseline values. Serum or plasma C reactive p rotein measurement (mass/volume)on 09-17-2021 CRP [Mass/Vol] 5.97 mg/L 0.0-3.0 [facility] Work Phone: Comment on above: C-Reactive Protein ( CRP) provides useful information for thediagnosis, therapy and monitoring of inflammatory processesand associated diseases. For the evaluation of Relative Riskfor Cardiovascular Disease, a High Sensitivity CRP (HSCRP)should be ordered. Serum or plasma calcium lilly urement (mass/volume)on 09-17-2021 Calcium [Mass/Vol] 9.0 mg/dL 8.5-10.1 [facility] Work Phone: Serum or plasma creatinine m easurement (mass/volume)on 09-17-2021 Creatinine [Mass/Vol] 0.96 mg/dL 0.70-1.30 [facility] Work Phone: Comment on above: The validity of the calculated GFR & GFRAA in patients over 70 years has not been determined. Clinical correlation is essential. Serum or plasma urea nitroge n measurement (mass/volume)on 09-17-2021 Urea nitrogen [Mass/Vol] 21 mg/dL 7-18 [facility] Work Phone: Thin prep Papanicolaou smear with manual screeningon 09-17-2021 Thin prep Papanicolaou smear with manual screening 8 5-15 [facility] Work Phone: Thin prep Papanicolaou smear with manual screening Negative Negative [facility] Work Phone: Comment on above: Lyme Antibody Negati veNo laboratory evidence of infection with B. burgdorferi(Lyme disease). Negative results may occur in patientsrecently infected (greater than or equal to 14 days) withB. burgdorferi. If recent infection is suspected, repeattesting on a new sample collected in 7 to 14 days isrecommended.Performed at: [facility] [id number] Director: Hilton Gallegos PhD, Phone: [phone] Absolute lymphocyte counton 08-31-2021 Lymphocytes Auto (Unsp spec) [#/Vol] 1.28 10*3/uL 0.83-4.51 [facility] Work Phone: Basophil percentageon 2021 Basophils/100 WBC (Bld) 0.3 % 0-1 [facility] Work Phone: Bilirubin [Mass/Vol] 0.80 mg/dL 0.20-1.00 [facility] Work Phone: Comment on above: For patients on eltr ombopag therapy, use of Dimension [place] TBIL is not recommended. Chloride [Moles/Vol] 104 mmol/L 98-107 [facility] Work Phone: Eosinophils/100 WBC (Bld) 0.8 % 0-5 [facility] Work Phone: Glucose [Mass/Vol] 125 mg/dL 74-106 [facility] Work Phone: Comment on above: Fasting Glucose resu lt from 100 to 125 mg/dL suggests IMPAIRED HOMEOSTASIS per A.D.A. criteria. Neutrophils (Bld) [#/Vol] 16.0 10*3/uL 2.0-7.7 [facility] Work Phone: Neutrophils/100 WBC (Bld) 83.5 % 47-70 [facility] Work Phone: Potassium [Moles/Vol] 4.5 mmol/L 3.5-5.1 [facility] Work Phone: Comment on above: Moderate Hemolysis, Result may be falsely increased. Protein [Mass/Vol] 6.8 g/dL 6.4-8.2 [facility] Work Phone: Sodium [Moles/Vol] 138 mmol/L 136-145 [facility] Work Phone: WBC (Bld) [#/Vol] 19.1 10*3/uL 4.4-11.0 [facility] Work Phone: Basophil percentage 0 SEEN /hpf 0-5 [facility] Work Phone: Bilirubin Test strip Ql (U)o n 08-31-2021 Bilirubin Ql (U) Negative Negative [facility] Work Phone: Blood erythrocytes count (nu mber/volume)on 08-31-2021 RBC (Bld) [#/Vol] 4.35 10*6/uL 4.6-6.2 [facility] Work Phone: Blood hemoglobin measurement (mass/volume)on 08-31-2021 Hemoglobin (Bld) [Mass/Vol] 13.4 g/dL 13.0-16.5 [facility] Work Phone: Blood lymphocytes/100 leukoc yteson 08-31-2021 Lymphocytes/100 WBC (Bld) 6.7 % 19-41 [facility] Work Phone: Blood monocytes/100 leukocyt eson 08-31-2021 Monocytes/100 WBC (Bld) 7.7 % 0-10 [facility] Work Phone: Blood platelet mean volumeon 08-31-2021 Platelet mean volume (Bld) [Entitic vol] 9.7 fL 6.2-12.0 [facility] Work Phone: Calcium oxalate crystals det ection in urine sediment by light microscopyon 08-31-2021 Calcium oxalate crystals LM Ql (Urine sed) RARE /hpf [facility] Work Phone: Determination of erythrocyte mean corpuscular volume (MCV)on 08-31-2021 MCV (RBC) [Entitic vol] 91.0 fL 80-94 [facility] Work Phone: Hematocrit Auto (Bld) [Volum e fraction]on 08-31-2021 Hematocrit (Bld) [Volume fraction] 39.6 % 40-54 [facility] Work Phone: Ketones Test strip Ql (U)on 08-31-2021 Ketones Ql (U) Negative Negative [facility] Work Phone: Laboratory - Chemistry and C hemistry - challengeon 08-31-2021 ALP [Catalytic activity/Vol] 95 U/L 45-117 [facility] Work Phone: ALT [Catalytic activity/Vol] 20 U/L 16-61 [facility] Work Phone: CO2 [Moles/Vol] 30.0 mmol/L 21.0-32.0 [facility] Work Phone: Globulin (S) [Mass/Vol] 3.9 g/dL 2.2-4.2 [facility] Work Phone: Urea nitrogen/Creatinine [Mass ratio] 15.4 mg/mg 10-20 [facility] Work Phone: Laboratory - Hematology and Cell countson 08-31-2021 Erythrocyte distribution width (RBC) [Entitic vol] 43.2 fL 35.1-43.9 [facility] Work Phone: Erythrocyte distribution width (RBC) [Ratio] 13.0 % 11.6-14.6 [facility] Work Phone: [phone] Immature granulocytes/100 WBC (Bld) 1.000 % 0.0-0.9 [facility] Work Phone: Comment on above: IG% - Immature Granu locytes (promyelocytes, myelocytes and metamyelocytes) > 1% indicates that a LEFT SHIFT is Present. MCH (RBC) [Entitic mass] 30.8 pg 27.0-32.0 [facility] Work Phone: Nucleated RBC/100 WBC (Bld) [Ratio] 0 % 0-5 [facility] Work Phone: MCHC Auto (RBC) [Mass/Vol]on 08-31-2021 MCHC (RBC) [Mass/Vol] 33.8 g/dL 32-36 [facility] Work Phone: Mucus LM Ql (Urine sed)on Mucus Ql (Urine sed) 0 SEEN /hpf [facility] Work Phone: Nitrite Test strip Ql (U)on 08-31-2021 Nitrite Ql (U) Negative Negative [facility] Work Phone: No Panel Informationon 08-31 Estimated Creatinine Clearance Calc 44.66 ml/min [facility] Work Phone: Estimated GFR (MDRD) Amer 76 mL/min >60 [facility] Work Phone: Comment on above: GFR Calc Estimated GFR (MDRD) Non-Af Amer 63 mL/min >60 [facility] Work Phone: Comment on above: Non- GFR Calc Troponin I High Sensitivity 12 pg/mL 3.0-78.0 [facility] Work Phone: Comment on above: Please Note: New Sel[place] t Units and Gender Specific Reference Ranges. For more information see Policy Stat Procedure [place] High Sensitivity Troponin (TNIH) and attachments. Platelets bldon 08-31-2021 Platelets (Bld) [#/Vol] 334 10*3/uL 150-450 [facility] Work Phone: Protein Test strip Ql (U)on 08-31-2021 Protein Ql (U) Negative Negative [facility] Work Phone: Serum or plasma albumin lilly urement (mass/volume)on 08-31-2021 Albumin [Mass/Vol] 2.9 g/dL 3.2-5.0 [facility] Work Phone: Serum or plasma albumin/glob ulin mass ratioon 08-31-2021 Albumin/Globulin [Mass ratio] 0.7 {ratio} 0.9-2.4 [facility] Work Phone: Serum or plasma calcium lilly urement (mass/volume)on 08-31-2021 Calcium [Mass/Vol] 8.7 mg/dL 8.5-10.1 [facility] Work Phone: Serum or plasma creatinine m easurement (mass/volume)on 08-31-2021 Creatinine [Mass/Vol] 1.17 mg/dL 0.70-1.30 [facility] Work Phone: Comment on above: The validity of the calculated GFR & GFRAA in patients over 70 years has not been determined. Clinical correlation is essential. Serum or plasma urea nitroge n measurement (mass/volume)on 08-31-2021 Urea nitrogen [Mass/Vol] 18 mg/dL 7-18 [facility] Work Phone: Squamous epithelial cells de tection in urine sediment by light microscopyon 08-31-2021 Epithelial cells.squamous LM Ql (Urine sed) 0 SEEN /hpf 0-5 [facility] Work Phone: Thin prep Papanicolaou smear with manual screeningon 08-31-2021 Thin prep Papanicolaou smear with manual screening 43 U/L 15-37 [facility] Work Phone: Comment on above: Moderate Hemolysis, Result may be falsely increased. Thin prep Papanicolaou smear with manual screening 4 5-15 [facility] Work Phone: Urine blood detectionon 08-18 RBC Ql (U) 10 /ul Negative [facility] Work Phone: RBC Ql (U) 0-5 SEEN /hpf 0-5 [facility] Work Phone: Urine clarityon 08-31-2021 Clarity (U) Clear Clear [facility] Work Phone: Urine color determinationon 08-31-2021 Color (U) Yellow Yellow [facility] Work Phone: Urine glucose detectionon Glucose Ql (U) Normal mg/dl Normal [facility] Work Phone: Urine leukocyte esterase det ection by dipstickon 08-31-2021 Leukocyte esterase Test strip Ql (U) Negative Negative [facility] Work Phone: Urine pHon 08-31-2021 pH (U) 6.0 [pH] 5.0 - 8.0 [facility] Work Phone: Urine sediment bacteria coun t by microscopy (number/high power field)on 08-31-2021 Bacteria LM.HPF (Urine sed) [#/Area] RARE /hpf None Seen [facility] Work Phone: Urine specific gravity measu rementon 08-31-2021 Specific gravity (U) [Rel density] 1.025 1.002-1.030 [facility] Work Phone: Urobilinogen Auto test strip Ql (U)on 08-31-2021 Urobilinogen Ql (U) Normal mg/dl Normal [facility] Work Phone: Basophil percentageon 2021 Chloride [Moles/Vol] 103 mmol/L 98-107 [facility] Work Phone: Glucose [Mass/Vol] 126 mg/dL 74-106 [facility] Work Phone: Comment on above: Fasting Glucose resu lt greater than or equal to 126 mg/dL suggests DIABETES MELLITUS per A.D.A. criteria. Potassium [Moles/Vol] 3.8 mmol/L 3.5-5.1 [facility] Work Phone: Sodium [Moles/Vol] 140 mmol/L 136-145 [facility] Work Phone: Interpretation of Borrelia b urgdorferi antibody assayon 08-24-2021 B. burgdorferi Ab (S) [Interp] REF LAB [facility] Work Phone: Laboratory - Chemistry and C hemistry - challengeon 08-24-2021 CO2 [Moles/Vol] 31.0 mmol/L 21.0-32.0 [facility] Work Phone: Magnesium [Mass/Vol] 2.4 mg/dL 1.6-2.6 [facility] Work Phone: Urea nitrogen/Creatinine [Mass ratio] 15.9 mg/mg 10-20 [facility] Work Phone: No Panel Informationon 08-24 Estimated GFR (MDRD) Amer 70 mL/min >60 [facility] Work Phone: Comment on above: GFR Calc Estimated GFR (MDRD) Non-Af Amer 58 mL/min >60 [facility] Work Phone: Comment on above: Non- GFR Calc Serum or plasma C reactive p rotein measurement (mass/volume)on 08-24-2021 CRP [Mass/Vol] 107.00 mg/L 0.0-3.0 [facility] Work Phone: Comment on above: C-Reactive Protein ( CRP) provides useful information for thediagnosis, therapy and monitoring of inflammatory processesand associated diseases. For the evaluation of Relative Riskfor Cardiovascular Disease, a High Sensitivity CRP (HSCRP)should be ordered. Serum or plasma calcium lilly urement (mass/volume)on 08-24-2021 Calcium [Mass/Vol] 8.9 mg/dL 8.5-10.1 [facility] Work Phone: Serum or plasma creatinine m easurement (mass/volume)on 08-24-2021 Creatinine [Mass/Vol] 1.26 mg/dL 0.70-1.30 [facility] Work Phone: Comment on above: The validity of the calculated GFR & GFRAA in patients over 70 years has not been determined. Clinical correlation is essential. Serum or plasma urea nitroge n measurement (mass/volume)on 08-24-2021 Urea nitrogen [Mass/Vol] 20 mg/dL 7-18 [facility] Work Phone: Thin prep Papanicolaou smear with manual screeningon 08-24-2021 Thin prep Papanicolaou smear with manual screening 6 5-15 [facility] Work Phone: Thin prep Papanicolaou smear with manual screening Negative Negative [facility] [facility] Work Phone: Comment on above: Lyme Antibody Negati veNo laboratory evidence of infection with B. burgdorferi(Lyme disease). Negative results may occur in patientsrecently infected (greater than or equal to 14 days) withB. burgdorferi. If recent infection is suspected, repeattesting on a new sample collected in 7 to 14 days isrecommended.Performed at: [facility] [id number] Director: Hilton Gallegos PhD, Phone: [phone] Absolute lymphocyte counton 08-16-2021 Lymphocytes Auto (Unsp spec) [#/Vol] 0.92 10*3/uL 0.83-4.51 [facility] Work Phone: Basophil percentageon 2021 Basophils/100 WBC (Bld) 0.2 % 0-1 [facility] Work Phone: Chloride [Moles/Vol] 101 mmol/L 98-107 [facility] Work [facility]: Eosinophils/100 WBC (Bld) 0.6 % 0-5 [facility] Work Phone: Glucose [Mass/Vol] 130 mg/dL 74-106 [facility] Work Phone: Comment on above: Fasting Glucose resu lt greater than or equal to 126 mg/dL suggests DIABETES MELLITUS per A.D.A. criteria. Neutrophils (Bld) [#/Vol] 10.1 10*3/uL 2.0-7.7 [facility] Work Phone: Neutrophils/100 WBC (Bld) 81.7 % 47-70 [facility] Work Phone: Potassium [Moles/Vol] 3.0 mmol/L 3.5-5.1 [facility] Work Phone: [phone] Sodium [Moles/Vol] 136 mmol/L 136-145 [facility] Work Phone: [phone] WBC (Bld) [#/Vol] 12.4 10*3/uL 4.4-11.0 [facility] Work Phone: Blood erythrocytes count (nu mber/volume)on 08-16-2021 RBC (Bld) [#/Vol] 4.07 10*6/uL 4.6-6.2 [facility] Work Phone: Blood hemoglobin measurement (mass/volume)on 08-16-2021 Hemoglobin (Bld) [Mass/Vol] 12.7 g/dL 13.0-16.5 [facility] Work Phone: Blood lymphocytes/100 leukoc yteson 08-16-2021 Lymphocytes/100 WBC (Bld) 7.4 % 19-41 [facility] Work Phone: Blood monocytes/100 leukocyt eson 08-16-2021 Monocytes/100 WBC (Bld) 9.3 % 0-10 [facility] Work Phone: Blood platelet mean volumeon 08-16-2021 Platelet mean volume (Bld) [Entitic vol] 10.1 fL 6.2-12.0 [facility] Work Phone: Determination of erythrocyte mean corpuscular volume (MCV)on 08-16-2021 MCV (RBC) [Entitic vol] 93.1 fL 80-94 [facility] Work Phone: [phone] Erythrocyte sedimentation ra brigid 08-16-2021 ESR (Bld) [Velocity] 36 mm/h 0-20 [facility] Work Phone: Hematocrit Auto (Bld) [Volum e fraction]on 08-16-2021 Hematocrit (Bld) [Volume fraction] 37.9 % 40-54 [facility] Work Phone: Laboratory - Chemistry and C hemistry - challengeon 08-16-2021 CO2 [Moles/Vol] 31.0 mmol/L 21.0-32.0 [facility] Work Phone: Urea nitrogen/Creatinine [Mass ratio] 14.5 mg/mg 10-20 [facility] Work Phone: Laboratory - Hematology and Cell countson 08-16-2021 Erythrocyte distribution width (RBC) [Entitic vol] 43.8 fL 35.1-43.9 [facility] Work Phone: Erythrocyte distribution width (RBC) [Ratio] 12.8 % 11.6-14.6 [facility] Work Phone: Immature granulocytes/100 WBC (Bld) 0.800 % 0.0-0.9 [facility] Work Phone: Comment on above: IG% - Immature Granu locytes (promyelocytes, myelocytes and metamyelocytes) > 1% indicates that a LEFT SHIFT is Present. MCH (RBC) [Entitic mass] 31.2 pg 27.0-32.0 [facility] Work Phone: Nucleated RBC/100 WBC (Bld) [Ratio] 0 % 0-5 [facility] Work Phone: MCHC Auto (RBC) [Mass/Vol]on 08-16-2021 MCHC (RBC) [Mass/Vol] 33.5 g/dL 32-36 [facility] Work Phone: No Panel Informationon 08-16 Estimated Creatinine Clearance Calc 48.36 ml/min [facility] Work Phone: Estimated GFR (MDRD) Amer 82 mL/min >60 [facility] Work Phone: Comment on above: GFR Calc Estimated GFR (MDRD) Non-Af Amer 68 mL/min >60 [facility] Work Phone: Comment on above: Non- GFR Calc Platelets bldon 08-16-2021 Platelets (Bld) [#/Vol] 302 10*3/uL 150-450 [facility] Work Phone: Serum or plasma C reactive p rotein measurement (mass/volume)on 08-16-2021 CRP [Mass/Vol] 104.00 mg/L 0.0-3.0 [facility] Work Phone: Comment on above: C-Reactive Protein ( CRP) provides useful information for thediagnosis, therapy and monitoring of inflammatory processesand associated diseases. For the evaluation of Relative Riskfor Cardiovascular Disease, a High Sensitivity CRP (HSCRP)should be ordered. Serum or plasma calcium lilly urement (mass/volume)on 08-16-2021 Calcium [Mass/Vol] 8.6 mg/dL 8.5-10.1 [facility] Work Phone: Serum or plasma creatinine m easurement (mass/volume)on 08-16-2021 Creatinine [Mass/Vol] 1.10 mg/dL 0.70-1.30 [facility] Work Phone: Comment on above: The validity of the calculated GFR & GFRAA in patients over 70 years has not been determined. Clinical correlation is essential. Serum or plasma urea nitroge n measurement (mass/volume)on 08-16-2021 Urea nitrogen [Mass/Vol] 16 mg/dL 7-18 [facility] Work Phone: Thin prep Papanicolaou smear with manual screeningon 08-16-2021 Thin prep Papanicolaou smear with manual screening 4 5-15 [facility] Work Phone: Vital Signs Date Time Vital Sign Value Performing Clinician Faci lity 01-10-2025 10:58-0400 Body height 170.[address] Otto Subramanian MD Work Phone: [facility] 01-10-2025 10:58-0400 Body mass index (BMI) [Ratio] 27.7 kg/m2 Dr. Otto Subramanian MD Work Phone: [facility] 01-10-2025 10:58-0400 Body weight 80.[address] Otto Subramanian MD Work Phone: [facility] 01-10-2025 10:58-0400 Diastolic blood pressure 70 mm[Hg] Dr. Otto Subramanian MD Work Phone: [facility] 01-10-2025 10:58-0400 Heart rate 64 /min Dr. Otto Subramanian MD Work Phone: [facility] 01-10-2025 10:58-0400 Systolic blood pressure 95 mm[Hg] Dr. Otto Subramanian MD Work Phone: [facility] 12-31-2024 13:46-0400 Body height 167.6 cm Freddiekamala Bee GUM SCORING MACHINE OPERATOR - [employer] ARCHITECT Work Phone: [facility] 12-31-2024 13:46-0400 Body mass index (BMI) [Ratio] 28.25 kg/m2 Freddie Jaleel GUM SCORING MACHINE OPERATOR - [employer] ARCHITECT Work Phone: [facility] 12-31-2024 13:46-0400 Body weight 79.38 kg Freddie Westel GUM SCORING MACHINE OPERATOR - [employer] ARCHITECT Work Phone: [facility] Comment on above: verbal 12-31-2024 13:46-0400 Diastolic blood pressure 78 mm[Hg] Freddie Jaleel GUM SCORING MACHINE OPERATOR - [employer] ARCHITECT Work Phone: [facility] 12-31-2024 13:46-0400 Heart rate 64 /min Freddiekamala Bee GUM SCORING MACHINE OPERATOR - [employer] ENTER[employer]ISE ARCHITECT Work Phone: [facility] 12-31-2024 13:46-0400 SaO2% (BldA) [Mass fraction] 96 % Freddie Bee GUM SCORING MACHINE OPERATOR - [employer] ARCHITECT Work Phone: [facility] 12-31-2024 13:46-0400 Systolic blood pressure 110 mm[Hg] Freddiekamala Westel GUM SCORING MACHINE OPERATOR - [employer]ISE ARCHITECT Work Phone: [facility] 12-24-2024 08:33-0400 Body height 167.6 cm Lashell Salas MD Work Phone: [facility] 12-24-2024 08:33-0400 Body mass index (BMI) [Ratio] 29.7 kg/m2 Lashell Salas MD Work Phone: [facility] 12-24-2024 08:33-0400 Body weight 83.46 kg Lashell Salas MD Work Phone: [facility] 12-24-2024 08:15-0400 Body temperature 97.39 [degF] Lashell Salas MD Work Phone: [facility] 12-24-2024 08:15-0400 Diastolic blood pressure 60 mm[Hg] Lashell Salas MD Work Phone: [facility] 12-24-2024 08:15-0400 Heart rate 93 /min Lashell Salas MD Work Phone: [facility] 12-24-2024 08:15-0400 Respiratory rate 14 /min Lashell Salas MD Work Phone: [facility] 12-24-2024 08:15-0400 SaO2% (BldA) [Mass fraction] 96 % Lashell Salas MD Work Phone: [facility] 12-24-2024 08:15-0400 Systolic blood pressure 119 mm[Hg] Lashell Salas MD Work Phone: [facility] 11-26-2024 14:11-0400 Body height 167.6 cm Lashell Salas MD Work Phone: [facility] 11-26-2024 14:11-0400 Body mass index (BMI) [Ratio] 28.89 kg/m2 Lashell Salas MD Work Phone: [facility] 11-26-2024 14:11-0400 Body weight 81.19 kg Lashell Salas MD Work Phone: [facility] 11-26-2024 14:11-0400 Diastolic blood pressure 76 mm[Hg] Lashell Salas MD Work Phone: [facility] 11-26-2024 14:11-0400 Heart rate 70 /min Lashell Salas MD Work Phone: [facility] 11-26-2024 14:11-0400 SaO2% (BldA) [Mass fraction] 96 % Lashell Salas MD Work Phone: [facility] 11-26-2024 14:11-0400 Systolic blood pressure 114 mm[Hg] Lashell Salas MD Work Phone: [facility] 11-12-2024 13:08-0400 Body mass index (BMI) [Ratio] 28.11 kg/m2 Everett Aldrich MD Work Phone: [facility] 11-12-2024 13:08-0400 Body temperature 97.39 [degF] Everett Aldrich MD Work Phone: [facility] 11-12-2024 13:08-0400 Body weight 81.42 kg Everett Aldrich MD Work Phone: [facility] 11-12-2024 13:08-0400 Diastolic blood pressure 66 mm[Hg] Everett Aldrich MD Work Phone: [facility] 11-12-2024 13:08-0400 Heart rate 63 /min Everett Aldrich MD Work Phone: [facility] 11-12-2024 13:08-0400 SaO2% (BldA) [Mass fraction] 98 % Everett Aldrich MD Work Phone: [facility] 11-12-2024 13:08-0400 Systolic blood pressure 114 mm[Hg] Everett Aldrich MD Work Phone: [facility] 11-04-2024 11:12-0400 Body temperature 97 [degF] Dr. Otto Subramanian MD Work Phone: [facility] 11-04-2024 11:12-0400 Diastolic blood pressure 77 mm[Hg] Dr. Otto Subramanian MD Work Phone: [facility] 11-04-2024 11:12-0400 Heart rate 73 /min Dr. Otto Subramanian MD Work Phone: [facility] 11-04-2024 11:12-0400 Respiratory rate 14 /min Dr. Otto Subramanian MD Work Phone: [facility] 11-04-2024 11:12-0400 SaO2% (BldA) [Mass fraction] 99 % Dr. Otto Subramanian MD Work Phone: [facility] 11-04-2024 11:12-0400 Systolic blood pressure 150 mm[Hg] Dr. Otto Subramanian MD Work Phone: 3(357)232-524688 [place] [address] 11-04-2024 10:16-0400 Body height 170.[address] Otto Subramanian MD Work Phone: 1(686)952-424618 [place] [address] 11-04-2024 10:16-0400 Body mass index (BMI) [Ratio] 28 kg/m2 Dr. Otto Subramanian MD Work Phone: 9(546)880-343218 [place] [address] 11-04-2024 10:16-0400 Body weight 81.[address] Otto Subramanian MD Work Phone: 4(641)681-872218 [place] [address] 10-07-2024 07:22-0400 Body height 172.[address] Otto Subramanian MD Work Phone: 2(686)896-577518 [place] [address] 10-07-2024 07:22-0400 Body weight 81.[address] Otto Subramanian MD Work Phone: 0(899)959-943518 [place] [address] 10-04-2024 07:43-0400 Body mass index (BMI) [Ratio] 27.3 kg/m2 Dr. Otto Subramanian MD Work Phone: 7(208)101-767818 [place] [address] 09-29-2024 09:37-0400 Body height 172.[address] Otto Subramanian MD Work Phone: 2(361)489-331818 [place] [address] 09-29-2024 09:37-0400 Body mass index (BMI) [Ratio] 27.3 kg/m2 Dr. Otto Subramanian MD Work Phone: 4(560)915-890318 [place] [address] 09-29-2024 09:37-0400 Body temperature 98.5 [degF] Dr. Otto Subramanian MD Work Phone: 9(326)426-370718 [place] [address] 09-29-2024 09:37-0400 Body weight 81.[address] Otto Subramanian MD Work Phone: 6(664)964-717118 [place] [address] 09-29-2024 09:37-0400 Diastolic blood pressure 62 mm[Hg] Dr. Otto Subramanian MD Work Phone: 8(717)326-105818 [place] [address] 09-29-2024 09:37-0400 Heart rate 86 /min Dr. Otto Subramanian MD Work Phone: [facility] 09-29-2024 09:37-0400 Respiratory rate 16 /min Dr. Otto Subramanian MD Work Phone: [facility] 09-29-2024 09:37-0400 SaO2% (BldA) [Mass fraction] 98 % Dr. Otto Subramanian MD Work Phone: [facility] 09-29-2024 09:37-0400 Systolic blood pressure 108 mm[Hg] Dr. Otto Subramanian MD Work Phone: 4(471)793-632488 [place] [address] 09-26-2024 08:11-0400 Body height 172.[address] Otto Subramanian MD Work Phone: 0(877)952-743758 [address] 09-26-2024 08:11-0400 Body mass index (BMI) [Ratio] 27.3 kg/m2 Dr. Otto Subramanian MD Work Phone: 2(205)775-549488 [place] [address] 09-26-2024 08:11-0400 Body weight 81.[address] Otto Subramanian MD Work Phone: [facility] 09-26-2024 08:11-0400 Diastolic blood pressure 86 mm[Hg] Dr. Otto Subramanian MD Work Phone: [facility] 09-26-2024 08:11-0400 Heart rate 72 /min Dr. Otto Subramanian MD Work Phone: 7(573)248-332388 [place] [address] 09-26-2024 08:11-0400 Respiratory rate 16 /min Dr. Otto Subramanian MD Work Phone: [facility] 09-26-2024 08:11-0400 Systolic blood pressure 143 mm[Hg] Dr. Otto Subramanian MD Work Phone: [facility] 08-20-2024 13:13-0400 Body mass index (BMI) [Ratio] 29.05 kg/m2 Crissy Mai Work Phone: [facility] 08-20-2024 13:13-0400 Body temperature 98.49 [degF] Crissy Mai Work Phone: [facility] 08-20-2024 13:13-0400 Body weight 84.14 kg Crissy Mai Work Phone: [facility] 08-20-2024 13:13-0400 Diastolic blood pressure 82 mm[Hg] Crissy Mai Work Phone: [facility] 08-20-2024 13:13-0400 Heart rate 83 /min Crissy Mai Work Phone: [facility] 08-20-2024 13:13-0400 SaO2% (BldA) [Mass fraction] 98 % Crissy Mai Work Phone: [facility] 08-20-2024 13:13-0400 Systolic blood pressure 142 mm[Hg] Crissy Mai Work Phone: [facility] 06-27-2024 10:38-0400 Body height 172.[address] Otto Subramanian MD Work Phone: [facility] 06-27-2024 10:38-0400 Body mass index (BMI) [Ratio] 28.5 kg/m2 Dr. Otto Subramanian MD Work Phone: [facility] 06-27-2024 10:38-0400 Body weight 85.[address] Otto Subramanian MD Work Phone: [facility] 06-27-2024 10:38-0400 Diastolic blood pressure 80 mm[Hg] Dr. Otto Subramanian MD Work Phone: [facility] 06-27-2024 10:38-0400 Heart rate 87 /min Dr. Otto Subramanian MD Work Phone: [facility] 06-27-2024 10:38-0400 Respiratory rate 18 /min Dr. Otto Subramanian MD Work Phone: [facility] 06-27-2024 10:38-0400 SaO2% (BldA) [Mass fraction] 97 % Dr. Otto Subramanian MD Work Phone: [facility] 06-27-2024 10:38-0400 Systolic blood pressure 134 mm[Hg] Dr. Otto Subramanian MD Work Phone: [facility] 06-18-2024 13:43-0400 Diastolic blood pressure 73 mm[Hg] Leisa Galeanoer PA-C Work Phone: [facility] 06-18-2024 13:43-0400 Heart rate 82 /min Leisa Galeanoer PA-C Work Phone: [facility] 06-18-2024 13:43-0400 SaO2% (BldA) [Mass fraction] 97 % Leisa Galeanoer PA-C Work Phone: [facility] 06-18-2024 13:43-0400 Systolic blood pressure 123 mm[Hg] Leisa Galeanoer PA-C Work Phone: [facility] 05-28-2024 12:47-0400 Body mass index (BMI) [Ratio] 30.07 kg/m2 Everett Aldrich MD Work Phone: [facility] 05-28-2024 12:47-0400 Body temperature 98.1 [degF] Everett Aldrich MD Work Phone: [facility] 05-28-2024 12:47-0400 Body weight 87.09 kg Everett Aldrich MD Work Phone: [facility] 05-28-2024 12:47-0400 Diastolic blood pressure 73 mm[Hg] Everett Aldrich MD Work Phone: [facility] 05-28-2024 12:47-0400 Heart rate 110 /min Everett Aldrich MD Work Phone: [facility] 05-28-2024 12:47-0400 SaO2% (BldA) [Mass fraction] 97 % Everett Aldrich MD Work Phone: [facility] 05-28-2024 12:47-0400 Systolic blood pressure 111 mm[Hg] Everett Aldrich MD Work Phone: [facility] 03-07-2025 10:52-0500 Body mass index (BMI) [Ratio] 30.67 kg/m2 Kaushal Stockton Jr., MD Work Phone: [facility] 05-24-2024 10:52-0500 Body weight 88.81 kg Kaushal Stockton Jr., MD Work Phone: [facility] 05-24-2024 10:52-0500 Diastolic blood pressure 86 mm[Hg] Kaushal Stockton Jr., MD Work Phone: [facility] 05-24-2024 10:52-0500 Heart rate 65 /min Kaushal Stockton Jr., MD Work Phone: [facility] 05-24-2024 10:52-0500 SaO2% (BldA) [Mass fraction] 96 % Kaushal Stockton Jr., MD Work Phone: [facility] 05-24-2024 10:52-0500 Systolic blood pressure 142 mm[Hg] Kaushal Stockton Jr., MD Work Phone: [facility] 03-05-2024 10:11-0500 Body mass index (BMI) [Ratio] 31.72 kg/m2 Everett Aldrich MD Work Phone: [facility] 03-05-2024 10:11-0500 Body temperature 98.49 [degF] Everett Aldrich MD Work Phone: [facility] 03-05-2024 10:11-0500 Body weight 91.85 kg Everett Aldrich MD Work Phone: [facility] 03-05-2024 10:11-0500 Diastolic blood pressure 81 mm[Hg] Everett Aldrich MD Work Phone: [facility] 03-05-2024 10:11-0500 Heart rate 81 /min Everett Aldrich MD Work Phone: [facility] 03-05-2024 10:11-0500 SaO2% (BldA) [Mass fraction] 96 % Everett Aldrich MD Work Phone: [facility] 03-05-2024 10:11-0500 Systolic blood pressure 129 mm[Hg] Everett Aldrich MD Work Phone: [facility] 01-23-2024 16:05-0500 Body height 170.2 cm Pranav Tate PA-C Work Phone: [facility] 01-23-2024 16:05-0500 Body mass index (BMI) [Ratio] 30.54 kg/m2 Pranav Tate PA-C Work Phone: [facility] 01-23-2024 16:05-0500 Body temperature 97.3 [degF] Pranav Tate PA-C Work Phone: [facility] 01-23-2024 16:05-0500 Body weight 88.45 kg Pranav Tate PA-C Work Phone: [facility] 01-23-2024 16:05-0500 Diastolic blood pressure 60 mm[Hg] Pranav Tate PA-C Work Phone: [facility] 01-23-2024 16:05-0500 Heart rate 89 /min Pranav Tate PA-C Work Phone: [facility] 01-23-2024 16:05-0500 Respiratory rate 20 /min Pranav Tate PA-C Work Phone: [facility] 01-23-2024 16:05-0500 SaO2% (BldA) [Mass fraction] 96 % Pranav Tate PA-C Work Phone: [facility] 01-23-2024 16:05-0500 Systolic blood pressure 112 mm[Hg] Pranav Tate PA-C Work Phone: [facility] 12-12-2023 09:47-0400 Body mass index (BMI) [Ratio] 31.09 kg/m2 Crissy Mai Work Phone: [facility] 12-12-2023 09:47-0400 Body temperature 98.49 [degF] Crissy Mai Work Phone: [facility] 12-12-2023 09:47-0400 Body weight 90.04 kg Crissy Mai Work Phone: [facility] 12-12-2023 09:47-0400 Diastolic blood pressure 62 mm[Hg] Crissy Mai Work Phone: [facility] 12-12-2023 09:47-0400 Heart rate 79 /min Crissy Mai Work Phone: [facility] 12-12-2023 09:47-0400 SaO2% (BldA) [Mass fraction] 97 % Crissy Mai Work Phone: [facility] 12-12-2023 09:47-0400 Systolic blood pressure 103 mm[Hg] Crissy Mai Work Phone: [facility] 09-19-2023 10:13-0400 Body mass index (BMI) [Ratio] 31.48 kg/m2 Everett Aldrich MD Work Phone: [facility] 09-19-2023 10:13-0400 Body temperature 97.9 [degF] Everett Aldrich MD Work Phone: [facility] 09-19-2023 10:13-0400 Body weight 91.17 kg Everett Aldrich MD Work Phone: [facility] 09-19-2023 10:13-0400 Diastolic blood pressure 70 mm[Hg] Everett Aldrich MD Work Phone: [facility] 09-19-2023 10:13-0400 Heart rate 73 /min Everett Aldrich MD Work Phone: [facility] 09-19-2023 10:13-0400 SaO2% (BldA) [Mass fraction] 98 % Everett Aldrich MD Work Phone: [facility] 09-19-2023 10:13-0400 Systolic blood pressure 105 mm[Hg] Everett Aldrich MD Work Phone: [facility] 06-27-2023 10:56-0400 Body temperature 98.2 [degF] Everett Aldrich MD Work Phone: [facility] 06-27-2023 10:56-0400 Body weight 91.85 kg Everett Aldrich MD Work Phone: [facility] 06-27-2023 10:56-0400 Diastolic blood pressure 74 mm[Hg] Everett Aldrich MD Work Phone: [facility] 06-27-2023 10:56-0400 Heart rate 82 /min Everett Aldrich MD Work Phone: [facility] 06-27-2023 10:56-0400 SaO2% (BldA) [Mass fraction] 99 % Everett Aldrich MD Work Phone: [facility] 06-27-2023 10:56-0400 Systolic blood pressure 112 mm[Hg] Everett Aldrich MD Work Phone: [facility] 05-23-2023 10:26-0500 Diastolic blood pressure 82 mm[Hg] Dr. Otto Subramanian Work Phone: [facility] 05-23-2023 10:26-0500 Systolic blood pressure 120 mm[Hg] Dr. Otto Subramanian Work Phone: [facility] 05-23-2023 10:02-0500 Body height 172.[address] Otto Subramanian Work Phone: [facility] 05-23-2023 10:02-0500 Body mass index (BMI) [Ratio] 31 kg/m2 Dr. Otto Subramanian Work Phone: [facility] 05-23-2023 10:02-0500 Body weight 92.[address] Otto Subramanian Work Phone: [facility] 05-23-2023 10:02-0500 Heart rate 93 /min Dr. Otto Subramanian Work Phone: [facility] 05-23-2023 10:02-0500 Respiratory rate 18 /min Dr. Otto Subramanian Work Phone: [facility] 05-23-2023 10:02-0500 SaO2% (BldA) [Mass fraction] 96 % Dr. Otto Subramanian Work Phone: [facility] 03-03-2023 09:10-0500 Body temperature 97.39 [degF] Treatment Wstr Work Phone: [facility] 03-03-2023 09:10-0500 Diastolic blood pressure 75 mm[Hg] Treatment [facility]str Work Phone: [facility] 03-03-2023 09:10-0500 Heart rate 82 /min Treatment [facility]str Work Phone: [facility] 03-03-2023 09:10-0500 SaO2% (BldA) [Mass fraction] 94 % Treatment [facility] Work Phone: [facility] 03-03-2023 09:10-0500 Systolic blood pressure 154 mm[Hg] Treatment [facility]str Work Phone: [facility] 11-09-2022 14:14-0400 Body temperature 97.7 [degF] Treatment [facility]str Work Phone: [facility] 11-09-2022 14:14-0400 Body weight 95.48 kg Treatment Wstr Work Phone: [facility] 11-09-2022 14:14-0400 Diastolic blood pressure 81 mm[Hg] Treatment Wstr Work Phone: [facility] 11-09-2022 14:14-0400 Heart rate 79 /min Treatment [facility]str Work Phone: [facility] 11-09-2022 14:14-0400 SaO2% (BldA) [Mass fraction] 96 % Treatment [facility] Work Phone: [facility] 11-09-2022 14:14-0400 Systolic blood pressure 150 mm[Hg] Treatment [facility]str Work Phone: [facility] 10-20-2022 09:18-0400 Body height 170.2 cm Everett Aldrich MD Work Phone: [facility] 10-20-2022 09:18-0400 Body temperature 98.2 [degF] vEerett Aldrich MD Work Phone: [facility] 10-20-2022 09:18-0400 Body weight 95.03 kg Everett Aldrich MD Work Phone: [facility] 10-20-2022 09:18-0400 Diastolic blood pressure 82 mm[Hg] Everett Aldrich MD Work Phone: [facility] 10-20-2022 09:18-0400 Heart rate 74 /min Everett Aldrich MD Work Phone: [facility] 10-20-2022 09:18-0400 Respiratory rate 14 /min Everett Aldrich MD Work Phone: [facility] 10-20-2022 09:18-0400 SaO2% (BldA) [Mass fraction] 96 % Everett Aldrich MD Work Phone: [facility] 10-20-2022 09:18-0400 Systolic blood pressure 128 mm[Hg] Everett Aldrich MD Work Phone: [facility] 10-17-2022 11:52-0400 Body height 172.72 cm [facility] 10-17-2022 11:52-0400 Body temperature 97.1 [degF] [facility] 10-17-2022 11:52-0400 Diastolic blood pressure 121 mm[Hg] [facility] 10-17-2022 11:52-0400 Heart rate 89 /min [facility] 10-17-2022 11:52-0400 Respiratory rate 16 /min [facility] 10-17-2022 11:52-0400 SaO2% (BldA) [Mass fraction] 95 % [facility] 10-17-2022 11:52-0400 Systolic blood pressure 189 mm[Hg] [facility] 10-15-2022 15:23-0400 Diastolic blood pressure 87 mm[Hg] [facility] 10-15-2022 15:23-0400 Systolic blood pressure 180 mm[Hg] [facility] 10-15-2022 11:48-0400 Heart rate 74 /min [facility] 10-15-2022 11:48-0400 Respiratory rate 16 /min [facility] 10-15-2022 11:48-0400 SaO2% (BldA) [Mass fraction] 95 % [facility] 10-15-2022 10:18-0400 Body height 172.72 cm [facility] 10-15-2022 10:18-0400 Body mass index (BMI) [Ratio] 31.1 kg/m2 [facility] 10-15-2022 10:18-0400 Body temperature 97.8 [degF] [facility] 10-15-2022 10:18-0400 Body weight 92.94 kg [facility] 10-12-2022 14:35-0400 Body temperature 97.5 [degF] Treatment Wstr Work Phone: [facility] 10-12-2022 14:35-0400 Diastolic blood pressure 79 mm[Hg] Treatment Wstr Work Phone: [facility] 10-12-2022 14:35-0400 Heart rate 92 /min Treatment Wstr Work Phone: [facility] 10-12-2022 14:35-0400 Respiratory rate 16 /min Treatment Wstr Work Phone: [facility] 10-12-2022 14:35-0400 SaO2% (BldA) [Mass fraction] 93 % Treatment Wstr Work Phone: [facility] 10-12-2022 14:35-0400 Systolic blood pressure 135 mm[Hg] Treatment Wstr Work Phone: [facility] 09-14-2022 13:42-0400 Body temperature 97.5 [degF] Treatment Wstr Work Phone: [facility] 09-14-2022 13:42-0400 Diastolic blood pressure 64 mm[Hg] Treatment Wstr Work Phone: [facility] 09-14-2022 13:42-0400 Heart rate 75 /min Treatment Wstr Work Phone: [facility] 09-14-2022 13:42-0400 Systolic blood pressure 131 mm[Hg] Treatment Wstr Work Phone: [facility] 08-18-2022 13:30-0400 Body temperature 97.9 [degF] Treatment Wstr Work Phone: [facility] 08-18-2022 13:30-0400 Body weight 97.3 kg Treatment Wstr Work Phone: [facility] 08-18-2022 13:30-0400 Diastolic blood pressure 84 mm[Hg] Treatment Wstr Work Phone: [facility] 08-18-2022 13:30-0400 Heart rate 84 /min Treatment Wstr Work Phone: [facility] 08-18-2022 13:30-0400 SaO2% (BldA) [Mass fraction] 97 % Treatment Wstr Work Phone: [facility] 08-18-2022 13:30-0400 Systolic blood pressure 159 mm[Hg] Treatment Wstr Work Phone: [facility] 07-28-2022 08:55-0400 Body temperature 97.3 [degF] Bree Cornejo GUM SCORING MACHINE OPERATOR.JAVA ENTERPRISE ARCHITECT Work Phone: [facility] 07-28-2022 08:55-0400 Body weight 96.16 kg Bree Cornejo GUM SCORING MACHINE OPERATOR.JAVA ENTERPRISE ARCHITECT Work Phone: [facility] 07-28-2022 08:55-0400 Diastolic blood pressure 66 mm[Hg] Bree Cornejo GUM SCORING MACHINE OPERATOR.JAVA ENTERPRISE ARCHITECT Work Phone: [facility] 07-28-2022 08:55-0400 Heart rate 71 /min Bree Cornejo GUM SCORING MACHINE OPERATOR.JAVA ENTERPRISE ARCHITECT Work Phone: [facility] 07-28-2022 08:55-0400 SaO2% (BldA) [Mass fraction] 97 % Bree Cornejo GUM SCORING MACHINE OPERATOR.JAVA ENTERPRISE ARCHITECT Work Phone: [facility] 07-28-2022 08:55-0400 Systolic blood pressure 119 mm[Hg] Bree Cornejo GUM SCORING MACHINE OPERATOR.JAVA ENTERPRISE ARCHITECT Work Phone: [facility] 07-18-2022 10:50-0400 Body temperature 97.81 [degF] Treatment Wstr Work Phone: [facility] 07-18-2022 10:50-0400 Diastolic blood pressure 76 mm[Hg] Treatment Wstr Work Phone: [facility] 07-18-2022 10:50-0400 Heart rate 76 /min Treatment Wstr Work Phone: [facility] 07-18-2022 10:50-0400 Respiratory rate 16 /min Treatment Wstr Work Phone: [facility] 07-18-2022 10:50-0400 SaO2% (BldA) [Mass fraction] 94 % Treatment Wstr Work Phone: [facility] 07-18-2022 10:50-0400 Systolic blood pressure 118 mm[Hg] Treatment Wstr Work Phone: [facility] 07-11-2022 14:28-0400 Body temperature 98.1 [degF] Denilson Masci DO Work Phone: [facility] 07-11-2022 14:28-0400 Body weight 96.16 kg Denilson Masci DO Work Phone: [facility] 07-11-2022 14:28-0400 Diastolic blood pressure 74 mm[Hg] Denilson Masci DO Work Phone: [facility] 07-11-2022 14:28-0400 Heart rate 84 /min Denilson Masci DO Work Phone: [facility] 07-11-2022 14:28-0400 SaO2% (BldA) [Mass fraction] 97 % Denilson Masci DO Work Phone: [facility] 07-11-2022 14:28-0400 Systolic blood pressure 110 mm[Hg] Denilson Masci DO Work Phone: [facility] 06-22-2022 04:09-0400 Diastolic blood pressure 89 mm[Hg] [facility] 06-22-2022 04:09-0400 Heart rate 85 /min [facility] 06-22-2022 04:09-0400 Respiratory rate 20 /min [facility] 06-22-2022 04:09-0400 SaO2% (BldA) [Mass fraction] 96 % [facility] 06-22-2022 04:09-0400 Systolic blood pressure 150 mm[Hg] [facility] 06-21-2022 23:46-0400 Body mass index (BMI) [Ratio] 30.5 kg/m2 [facility] 06-21-2022 23:46-0400 Body weight 91.2 kg [facility] 06-21-2022 23:30-0400 Body height 172.72 cm [facility] 06-21-2022 23:30-0400 Body temperature 97 [degF] [facility] 05-23-2022 13:32-0500 Body temperature 97.81 [degF] Treatment Wstr Work Phone: [facility] 05-23-2022 13:32-0500 Body weight 96.16 kg Treatment Wstr Work Phone: [facility] 05-23-2022 13:32-0500 Diastolic blood pressure 88 mm[Hg] Treatment Wstr Work Phone: [facility] 05-23-2022 13:32-0500 Heart rate 70 /min Treatment Wstr Work Phone: [facility] 05-23-2022 13:32-0500 Respiratory rate 16 /min Treatment Wstr Work Phone: [facility] 05-23-2022 13:32-0500 SaO2% (BldA) [Mass fraction] 96 % Treatment Wstr Work Phone: [facility] 05-23-2022 13:32-0500 Systolic blood pressure 152 mm[Hg] Treatment Wstr Work Phone: [facility] 05-05-2022 11:05-0500 Body temperature 97.59 [degF] Injection Wstr Work Phone: [facility] 05-05-2022 11:05-0500 Body weight 96.16 kg Injection Wstr Work Phone: [facility] 05-05-2022 11:05-0500 Diastolic blood pressure 85 mm[Hg] Injection Wstr Work Phone: [facility] 05-05-2022 11:05-0500 Heart rate 78 /min Injection Wstr Work Phone: [facility] 05-05-2022 11:05-0500 Systolic blood pressure 136 mm[Hg] Injection Wstr Work Phone: [facility] 02-01-2022 16:48-0500 Body height 170.2 cm Pranav Tate PA-C Work Phone: [facility] 02-01-2022 16:48-0500 Body temperature 97.11 [degF] Pranav Tate PA-C Work Phone: [facility] 02-01-2022 16:48-0500 Body weight 92.99 kg Pranav Tate PA-C Work Phone: [facility] 02-01-2022 16:48-0500 Diastolic blood pressure 70 mm[Hg] Pranav Tate PA-C Work Phone: [facility] 02-01-2022 16:48-0500 Heart rate 88 /min Pranav Tate PA-C Work Phone: [facility] 02-01-2022 16:48-0500 Respiratory rate 14 /min Pranav Tate PA-C Work Phone: [facility] 02-01-2022 16:48-0500 SaO2% (BldA) [Mass fraction] 97 % Pranav Tate PA-C Work Phone: [facility] 02-01-2022 16:48-0500 Systolic blood pressure 104 mm[Hg] Pranav Tate PA-C Work Phone: [facility] 10-25-2021 13:59-0400 Body temperature 97.7 [degF] Treatment Wstr Work Phone: [facility] 10-25-2021 13:59-0400 Diastolic blood pressure 69 mm[Hg] Treatment Wstr Work Phone: [facility] 10-25-2021 13:59-0400 Heart rate 72 /min Treatment Wstr Work Phone: [facility] 10-25-2021 13:59-0400 Systolic blood pressure 144 mm[Hg] Treatment Wstr Work Phone: [facility] 10-08-2021 09:09-0400 Body height 167 cm Aparna Becerra MD Work Phone: [facility] 10-08-2021 09:09-0400 Body temperature 97.39 [degF] Aparna Becerra MD Work Phone: [facility] 10-08-2021 09:09-0400 Body weight 89.81 kg Aparna Becerra MD Work Phone: [facility] 10-08-2021 09:09-0400 Diastolic blood pressure 63 mm[Hg] Aparna Becerra MD Work Phone: [facility] 10-08-2021 09:09-0400 Heart rate 71 /min Aparna Becerra MD Work Phone: [facility] 10-08-2021 09:09-0400 SaO2% (BldA) [Mass fraction] 98 % Aparna Becerra MD Work Phone: [facility] 10-08-2021 09:09-0400 Systolic blood pressure 101 mm[Hg] Aparna Becerra MD Work Phone: [facility] 09-24-2021 14:19-0400 Body height 172.7 cm Pranav Tate PA-C Work Phone: [facility] 09-24-2021 14:19-0400 Body temperature 97.5 [degF] Pranav Tate PA-C Work Phone: [facility] 09-24-2021 14:19-0400 Body weight 89.81 kg Pranav Tate PA-C Work Phone: [facility] 09-24-2021 14:19-0400 Diastolic blood pressure 86 mm[Hg] Pranav Tate PA-C Work Phone: [facility] 09-24-2021 14:19-0400 Heart rate 110 /min Pranav Tate PA-C Work Phone: [facility] 09-24-2021 14:19-0400 Respiratory rate 14 /min Pranav Tate PA-C Work Phone: [facility] 09-24-2021 14:19-0400 SaO2% (BldA) [Mass fraction] 96 % Pranav Tate PA-C Work Phone: [facility] 09-24-2021 14:19-0400 Systolic blood pressure 132 mm[Hg] Pranav Tate PA-C Work Phone: [facility] 08-31-2021 06:09-0400 Heart rate 92 /min Dr. Otto Subramanian Work Phone: [facility] Work Phone: 08-31-2021 06:09-0400 Respiratory rate 18 /min Dr. Otto Subramanian Work Phone: [facility] Work Phone: 08-31-2021 06:09-0400 SaO2% (BldA) [Mass fraction] 99 % Dr. Otto Subramanian Work Phone: [facility] Work Phone: 08-31-2021 04:10-0400 Body height 172.[address] Otto Subramanian Work Phone: [facility] Work Phone: 08-31-2021 04:10-0400 Body mass index (BMI) [Ratio] 30.9 kg/m2 Dr. Otto Subramanian Work Phone: [facility] Work Phone: 08-31-2021 04:10-0400 Body temperature 98.1 [degF] Dr. Otto Subramanian Work Phone: [facility] Work Phone: 08-31-2021 04:10-0400 Body weight 92.[address] Otto Subramanian Work Phone: [facility] Work Phone: 08-31-2021 04:10-0400 Diastolic blood pressure 105 mm[Hg] Dr. Otto Subramanian Work Phone: [facility] Work Phone: 08-31-2021 04:10-0400 Systolic blood pressure 165 mm[Hg] Dr. Otto Subramanian Work Phone: [facility] Work Phone: 08-16-2021 11:37-0400 Respiratory rate 16 /min Dr. Otto Subramanian Work Phone: [facility] Work Phone: 08-16-2021 09:34-0400 Body height 172.[address] Otto Subramanian Work Phone: [facility] Work Phone: 08-16-2021 09:34-0400 Body mass index (BMI) [Ratio] 30.1 kg/m2 Dr. Otto Subramanian Work Phone: [facility] Work Phone: 08-16-2021 09:34-0400 Body temperature 98 [degF] Dr. Otto Subramanian Work Phone: [facility] Work Phone: 08-16-2021 09:34-0400 Body weight 89.[address] Otto Subramanian Work Phone: [facility] Work Phone: 08-16-2021 09:34-0400 Diastolic blood pressure 70 mm[Hg] Dr. Otto Subramanian Work Phone: [facility] Work Phone: 08-16-2021 09:34-0400 Heart rate 90 /min Dr. Otto Subramanian Work Phone: [facility] Work Phone: 08-16-2021 09:34-0400 SaO2% (BldA) [Mass fraction] 94 % Dr. Otto Subramanian Work Phone: [facility] Work Phone: 08-16-2021 09:34-0400 Systolic blood pressure 116 mm[Hg] Dr. Otto Subramanian Work Phone: [facility] Work Phone: 07-21-2021 14:44-0400 Body mass index (BMI) [Ratio] 31.9 kg/m2 Dr. Otto Subramanian Work Phone: [facility] Work Phone: 07-21-2021 14:44-0400 Body weight 92.[address] Otto Subramanian Work Phone: [facility] Work Phone: 07-21-2021 14:44-0400 Diastolic blood pressure 66 mm[Hg] Dr. Otto Subramanian Work Phone: [facility] Work Phone: 07-21-2021 14:44-0400 Heart rate 72 /min Dr. Otto Subramanian Work Phone: [facility] Work Phone: 07-21-2021 14:44-0400 Respiratory rate 18 /min Dr. Otto Subramanian Work Phone: [facility] Work Phone: 07-21-2021 14:44-0400 Systolic blood pressure 123 mm[Hg] Dr. Otto Subramanian Work Phone: [facility] Work Phone: 07-21-2021 14:44-0400 Body mass index (BMI) [Ratio] 31.9 kg/m2 Dr. Otto Subramanian Work Phone: [facility] Work Phone: 07-21-2021 14:44-0400 Body weight 92.[address] Otto Subramanian Work Phone: [facility] Work Phone: 07-21-2021 14:44-0400 Diastolic blood pressure 66 mm[Hg] Dr. Otto Subramanian Work Phone: [facility] Work Phone: 07-21-2021 14:44-0400 Heart rate 72 /min Dr. Otto Subramanian Work Phone: [facility] Work Phone: 07-21-2021 14:44-0400 Respiratory rate 18 /min Dr. Otto Subramanian Work Phone: [facility] Work Phone: 07-21-2021 14:44-0400 Systolic blood pressure 123 mm[Hg] Dr. Otto Subramanian Work Phone: [facility] Work Phone: Encounters Encounter Date Encounter Type Care Provider Facility Start: 02-10-2025 ambulatory Otto Subramanian Facility:[facility] Start: 01-17-2025 End: 01-17-2025 ambulatory WALI IRIZARRY Facility:[id number] Start: 01-10-2025 End: 01-10-2025 ambulatory Otto Subramanian Facility:[facility] Start: 12-31-2024 End: 12-31-2024 Office outpatient visit 25 minutes Freddie Bee APRN - JAVA ENTERPRISE ARCHITECT Work Phone: [facility] Cardiology [facility] Comment on above: Primary hypertension (Primary Dx); Hyperlipidemia, unspecified hyperlipidemia type; S/P aortic valve replacement with bioprosthetic valve; Coronary artery disease involving [place] coronary artery of [place] heart without angina pectoris Start: 12-31-2024 End: 12-31-2024 ambulatory FREDDIE BEE [facility] Start: 12-23-2024 End: 12-24-2024 Evaluation and management of inpatient Lashell Salas MD Work Phone: [facility] Cardiac Thoracic Vascular Intensive Care Unit CTV ICU T1 Comment on above: Severe aortic stenos is (Primary Dx) Start: 12-20-2024 End: 12-20-2024 ambulatory Georgiana Cueto GUM SCORING MACHINE OPERATOR - JAVA ENTERPRISE ARCHITECT Work Phone: [facility] Comment on above: Severe aortic stenos is (Primary Dx) Start: 12-20-2024 End: 12-20-[address] Otto Subramanian MD -Laboratory [facility] Start: 12-20-2024 End: 12-20-2024 ambulatory Otto Subramanian Facility:[facility] Start: 12-12-2024 End: 12-12-2024 Subsequent hospital visit by physician Lashell Salas MD Work Phone: [facility] [address] Comment on above: Severe aortic stenos is Start: 12-12-2024 End: 12-12-2024 ambulatory LASHELL SALAS [facility] Start: 11-26-2024 End: 11-26-2024 ambulatory GEE CORMIER [facility] Start: 11-26-2024 End: 11-26-2024 Office outpatient new 60 minutes Lashell Salas MD Work Phone: [facility] Comment on above: Severe aortic stenos is (Primary Dx) Start: 11-26-2024 End: 12-23-2024 Telephone encounter Lashell Salas MD Work Phone: [facility] Comment on above: Procedure (TAVR) Start: [...] day surgery center Dr. Osman Bui MD -[employer]/Special Procedures Work Phone: Start: 10-07-2024 End: 10-07-[address] Otto Subramanian MD Work Phone: -[employer] Start: 09-29-2024 End: 09-29-2024 Patient encounter procedure Freddie Lee PA -[facility] Work Phone: Start: 09-29-2024 End: 09-29-[address] Otto Subramanian MD Work Phone: -[facility] Start: 09-26-2024 End: 09-26-[address] Otto Subramanian MD Work Phone: -[facility] Start: 09-26-2024 End: 09-26-2024 Patient encounter procedure Riri Peralta NP-C -[facility] Work Phone: Start: 09-24-2024 Encounter for preprocedural cardiovascular examination Osman [facility] Start: 09-16-2024 End: 09-16-[address] Otto Subramanian MD Work Phone: -Cardiovascular Services Start: 09-16-2024 End: 09-16-2024 Patient encounter procedure Freddie SALAZAR -Cardiovascular Services Work Phone: Start: 09-16-2024 ambulatory Otto Subramanian Facility:[facility] Start: 09-16-2024 Non-patient / Non-visit Dr. Chel [facility]INA [facility] Start: 09-16-2024 End: 09-16-2024 ambulatory Otto Subramanian Facility:[facility] Start: 09-12-2024 ambulatory Freddie SALAZAR Facility:[facility] Start: 09-12-2024 Non-patient / Non-visit Dr. Chel [facility]INA [facility] Start: 09-12-2024 End: 09-12-[address] Otto Subramanian MD Work Phone: -Cardiovascular Services Start: 09-12-2024 End: 09-12-2024 Patient encounter procedure Freddie SALAZAR -Cardiovascular Services Work Phone: Start: 09-12-2024 End: 09-12-2024 ambulatory Otto Subramanian Facility:[facility] Start: 08-20-2024 End: 08-20-2024 ambulatory Treatment Rm 14 Nakul [facility] Work Phone: Hematology/Oncology Comment on above: Malignant neoplasm o f prostate (HCC) (Primary Dx); Malignant neoplasm 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) Malignant neoplasm o f prostate (HCC) (Primary Dx); Loss of balance Start: 08-20-2024 End: 08-20-2024 Patient encounter procedure Crissy Mai Work Phone: Hematology/Oncology Start: 08-20-2024 End: 08-20-2024 ambulatory OTTO SUBRAMANIAN Facility:[facility] Start: 07-26-[address] Mai Subramanian MD Work Phone: [facility] Start: 06-27-2024 End: 06-27-2024 Patient encounter procedure Freddie SALAZAR -[facility] Work Phone: Start: 06-27-2024 End: 06-27-[address] Otto Subramanian MD Work Phone: [facility] Work Phone: Start: 06-27-2024 End: 06-27-2024 ambulatory Otto Subramanian Facility:[facility] Start: 06-18-2024 End: 06-18-2024 Patient encounter [...] Start: 06-18-2024 End: 06-18-2024 ambulatory OTTO SUBRAMANIAN Facility:[facility] Start: 06-04-2024 End: 06-04-2024 Follow-up encounter Kaushal Stockton MD Work Phone: Sleep Start: 06-04-2024 End: 06-04-[address] [facility] Facility:[facility] Start: 06-04-2024 End: 06-04-2024 Subsequent hospital visit by physician Mri Radio [facility] (I-Stat/1.5t) Work Phone: Radiology Comment on above: Low back pain, unspe cified back pain laterality, unspecified chronicity, unspecified whether sciatica present [M54.50] Other symptoms and s igns involving the nervous system [R29.818] Start: 05-28-2024 End: 05-28-2024 Patient encounter procedure Everett Aldrihc MD Work Phone: Hematology/Oncology Start: 05-28-2024 End: 05-28-2024 ambulatory Everett Aldrich MD Work Phone: Hematology/Oncology Comment on above: Malignant neoplasm o f prostate (HCC) (Primary Dx) Malignant neoplasm o f prostate (HCC) (Primary Dx); Malignant neoplasm 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) Start: 05-24-2024 End: 05-24-2024 Telephone encounter Kaushal Stockton MD Work Phone: Neurology Comment on above: 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 Otto Subramanian MD Work Phone: [facility] Work Phone: Start: 05-23-2024 End: 05-23-2024 [...] End: 01-24-2024 Emergency department patient visit Sabas Thompson Facility:[facility] Start: 01-23-2024 End: 01-23-2024 ambulatory OTTO SUBRAMANIAN Facility:[facility] Start: 01-23-2024 End: 01-23-2024 Patient [...] encounter procedure Everett Aldrich MD Work Phone: [facility] Start: 06-09-2023 Non-patient / Non-visit Dr. Edgar Subramanian Work Phone: [facility] Work Phone: Start: 06-09-2023 Non-patient / Non-visit Dr. Edgar Subramanian Work Phone: [facility] Start: 06-09-2023 End: 06-09-[address] Otto Subramanian Work Phone: [facility] Work Phone: Start: 06-09-2023 End: 06-09-[address] Otto Subramanian Work Phone: [facility]-Cardiovascul ar Services Work Phone: Start: 06-07-2023 Refill Everett coughlin MD Work Phone: Hematology/Oncology Comment on above: medication questions Start: 06-06-2023 Non-patient / Non-visit Dr. Edgar Subramanian Work Phone: [facility] Work Phone: Start: 06-05-2023 Non-patient / Non-visit Dr. Edgar Subramanian Work Phone: [facility] Start: 06-05-2023 End: 06-05-[address] Otto Subramanian Work Phone: [facility] Work Phone: Start: 06-05-2023 End: 06-05-[address] Otto Subramanian Work Phone: [facility]-Cardiovascul ar Services Work Phone: Start: 05-23-2023 End: 05-23-[address] Otto Subramanian Work Phone: [facility] Work Phone: Start: 03-21-2023 End: 03-21-2023 ambulatory [facility] Work Phone: Start: 03-21-2023 End: 03-21-2023 Discharged Recurring [facility]-Physical Therapy Work Phone: Start: 03-03-2023 Telephone [...] 11-09-2022 ambulatory Treatment Rm 8 [facility] Work Phone: Hematology/Oncology Comment on above: 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); Malignant neoplasm of prostate (HCC) Start: 10-20-2022 Telephone encounter Everett mcghee MD Work Phone: Hematology/Oncology Comment on above: Results Start: 10-20-2022 End: 10-20-2022 ambulatory Injection Nakul c [employer] Work Phone: Hematology/Oncology Comment on above: 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); Malignant neoplasm of prostate (HCC) 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) Start: 10-20-2022 End: 10-20-2022 Patient encounter procedure Everett Aldrich MD Work Phone: [facility] Start: 10-17-2022 End: 10-17-2022 [facility] Start: 10-15-2022 End: 10-15-2022 Emergency department patient visit [facility]-Emergency Department Work Phone: Start: 10-12-2022 End: 10-12-2022 ambulatory Treatment Rm 9 [facility] [employer] Work Phone: Hematology/Oncology Comment on above: 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); Malignant neoplasm of prostate (HCC) Start: 09-14-2022 End: 09-14-2022 ambulatory Treatment Rm 3 [facility] [employer] Work Phone: Hematology/Oncology Comment on above: 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); Malignant neoplasm of prostate (HCC) Start: 08-18-2022 End: 08-18-2022 ambulatory Treatment Rm 10 [facility] [employer] Work Phone: Hematology/Oncology Comment on above: Malignant neoplasm o f prostate (HCC) (Primary Dx); Malignant neoplasm 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) Start: 08-17-2022 Orders Only Denilson James Work Phone: Hematology/Oncology Start: 07-28-2022 End: 07-28-2022 Patient encounter procedure [facility] Start: 07-28-2022 End: 07-28-2022 ambulatory Injection [facility] [employer] Work Phone: Hematology/Oncology Comment on above: 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); Malignant neoplasm of prostate (HCC) Start: 07-28-2022 End: 07-28-2022 ambulatory Bree Cornejo GUM SCORING MACHINE OPERATOR.JAVA ENTERPRISE ARCHITECT Work Phone: Hematology/Oncology Comment on above: Malignant neoplasm o f prostate (HCC) (Primary Dx); Malignant neoplasm 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) Start: 07-28-2022 End: 07-28-2022 Patient encounter procedure Bree Cornejo GUM SCORING MACHINE OPERATOR.JAVA ENTERPRISE ARCHITECT Work Phone: [facility] Start: 07-18-2022 Telephone encounter Denilson elliott DO Work Phone: Hematology/Oncology Comment on above: Orders Start: 07-18-2022 End: 07-18-2022 ambulatory Treatment Rm 13 [facility] Work Phone: Hematology/Oncology [...] encounter procedure Denilson Fernandes DO Work Phone: [facility] Start: 06-29-2022 Telephone encounter Irene vitale RN Work Phone: Hematology/Oncology Comment on above: Care Coordination (p atient update-weakness) Start: 06-24-2022 Telephone encounter Denilson elliott DO Work Phone: Hematology/Oncology Comment on above: Patient Update (Weak ness) Start: 06-21-2022 End: 06-22-2022 Emergency department patient visit [facility]Emergency Department Start: 06-21-2022 Telephone encounter Irene vitale RN Work Phone: Hematology/Oncology Comment on above: Patient Update (Symp toms) Start: 06-13-2022 Specialty Pharmacy [facility] Comment on above: [...] prostate (HCC) Start: 04-28-2022 [facility] Comment on above: SPP Oral Oncology/he matology - Medication Refill (Erleada 60mg) Start: 04-26-2022 Telephone encounter Bree mishra APRN.JAVA ENTERPRISE ARCHITECT Work Phone: Hematology/Oncology Comment on above: Results Start: 04-25-2022 End: 04-25-2022 ambulatory Treatment Rm 2 [facility] Work Phone: Hematology/Oncology Comment on above: Bone metastases (HCC ) (Primary Dx); Malignant neoplasm of prostate (HCC) Start: 04-22-2022 Orders Only Bree camarillo APRN.CNP Work Phone: Hematology/Oncology Start: 04-06-2022 Specialty Pharmacy [facility] Comment on above: SPP Oral Oncology/he matology - Medication Refill (Erleada 6-mg) Start: 03-08-2022 Specialty Pharmacy [facility] Comment on above: SPP Oral Oncology/he matology - Medication Refill (Erleada 60mg) Start: 03-07-2022 Refill Denilson James Work Phone: Hematology/Oncology Comment on above: Refill Request Start: 03-03-2022 End: 03-03-2022 ambulatory [facility] Work Phone: Start: 03-03-2022 End: 03-03-2022 Discharged Recurring [facility]-Physical Therapy Start: 02-04-2022 Specialty Pharmacy Robert [facility] Comment on above: SPP Oral Oncology/he matology - Medication Refill (Erleada) Start: 02-01-2022 End: 02-01-2022 Patient encounter procedure Pranav Felice PA-C Work Phone: Urology Comment on above: Elevated PSA (Primar y Dx) Start: 01-25-2022 Telephone encounter Pranav Brown henrietta PA-C Work Phone: Urology Comment on above: Patient Question Start: 01-19-2022 Telephone encounter Pranav shrestha PA-C Work Phone: Urology Comment on above: Patient Question Start: 01-10-2022 Specialty Pharmacy Adwoa Tinajero [facility] Comment on above: SPP Oral Oncology/he matology - Medication Refill (Erleada) Start: 01-07-2022 Telephone encounter Aparna Becerra MD Work Phone: Hematology/Oncology Comment on above: Release Of Medical R ecords Start: 12-07-2021 Specialty Pharmacy [facility] Comment on above: SPP Oral Oncology/he matology - Medication Refill (Erleada) Start: 12-06-2021 Refill Aparna Becerra MD Work Phone: Hematology/Oncology Comment on above: Refill Request Start: 11-03-2021 Specialty Pharmacy [facility]en [facility] Comment on above: SPP Oral [...] Start: 10-08-2021 End: 10-08-2021 ambulatory [facility] Comment on above: Malignant neoplasm o f prostate (HCC) (Primary Dx); Bone metastases (HCC); Osteopenia determined by x-ray Start: 10-08-2021 End: 10-08-2021 Patient encounter procedure [facility] Comment on above: SPP Oral Oncology/he matology - Treatment Referral (Jacquelyn); Insurance Authorization (Pending PA) Start: 09-27-2021 Telephone encounter Pranav shrestha PA-C Work Phone: Urology Comment on above: results of body scan Start: 09-24-2021 End: 09-24-[address] Otto Subramanian Work Phone: [facility]Nuclear Medicine, [facility] Comment on above: Prostate cancer (HCC ) (Primary Dx); Elevated PSA Start: 09-22-2021 Telephone encounter Pranav shrestha PA-C Work Phone: Urology Comment on above: Request Outside [facility] Records Start: 09-17-2021 End: 09-17-[address] Otto Subramanian Work Phone: [facility] Start: 08-31-2021 End: 08-31-2021 Emergency department patient visit Dr. Otto Subramanian Work Phone: [facility]Emergency Department Start: 08-24-2021 End: 08-24-[address] Otto Subramanian Work Phone: [facility] Start: 08-16-2021 End: 08-16-2021 Emergency department patient visit Dr. Otto Subramanian Work Phone: [facility]Emergency Department Start: 07-21-2021 End: 07-21-[address] Otto Subramanian Work Phone: [facility] Procedures Date Procedure Procedure Detail Performing Clinician Start: 12-31-2024 Ecg routine ecg w/le ast 12 lds trcg only w/o i&r Lashell Salas MD Work Phone: Start: 12-31-2024 Adult depression scr eening assessment Lashell Salas MD Work Phone: Start: 12-24-2024 Echo tthrc r-t 2d w/wom-mode compl spec&colr d Freddie Bee GUM SCORING MACHINE OPERATOR - JAVA ENTERPRISE ARCHITECT Work Phone: Start: 12-24-2024 Ecg routine ecg w/le ast 12 lds trcg only w/o i&r Freddie Bee GUM SCORING MACHINE OPERATOR - JAVA ENTERPRISE ARCHITECT Work Phone: Start: 12-24-2024 Basic metabolic pane l calcium total Freddie Westel GUM SCORING MACHINE OPERATOR - JAVA ENTERPRISE ARCHITECT Work Phone: Start: 12-23-2024 Basic metabolic pane l calcium total Freddie Bee GUM SCORING MACHINE OPERATOR - JAVA ENTERPRISE ARCHITECT Work Phone: Start: 12-23-2024 Ecg routine ecg w/le ast 12 lds trcg only w/o i&r Freddie Bee GUM SCORING MACHINE OPERATOR - JAVA ENTERPRISE ARCHITECT Work Phone: Start: 12-23-2024 OXYGEN THERAPY Freddie Bee GUM SCORING MACHINE OPERATOR - JAVA ENTERPRISE ARCHITECT Work Phone: Start: 12-23-2024 Cardiac catheterizat ion study Lashell Salas MD Work Phone: Start: 12-23-2024 Echo transthorc r-t 2d w/wo m-mode rec f-up/lmtd Lashell Salas MD Work Phone: Start: 12-23-2024 Antibody screen [facility] Comment on above: Performed By: #### L [id number] ####Snap Shearer: CARLA SOLORZANO ([phone])[facility] BLOOD [facility] ([facility])[address] [place] [address] Start: 12-23-2024 ABO and Rh group [Ty pe] in Blood by Confirmatory method Georgiana Cueto GUM SCORING MACHINE OPERATOR - JAVA ENTERPRISE ARCHITECT Work Phone: Start: 12-23-2024 Blood typing serologic abo Georgiana Cueto GUM SCORING MACHINE OPERATOR - JAVA ENTERPRISE ARCHITECT Work Phone: Start: 12-12-2024 Ct angiography chest [...] DTaP/Tdap/Td Vaccines (2 - Td or Tdap) [facility] Start: 05-25-2033 Urine microalbumin profile DTaP,Tdap,Td Vaccine (2 - Td or Tdap) [facility] Start: 11-13-2027 Diabetes Screening Diabetes Screenin [facility] Start: 08-21-2027 Diabetes Screening Diabetes Screenin [facility] Start: 05-29-2027 Diabetes Screening Diabetes Screenin [facility] Start: 03-05-2027 Diabetes Screening Diabetes Screenin [facility] Start: 12-11-2026 Diabetes Screening Diabetes Screenin [facility] Start: 09-18-2026 Diabetes Screening Diabetes Screenin [facility] Start: 06-26-2026 Diabetes Screening Diabetes Screenin [facility] Start: 04-03-2026 Diabetes Screening Diabetes Screenin [facility] Start: 03-03-2026 Diabetes Screening Diabetes Screenin [facility] Start: 01-12-2026 Diabetes Screening Diabetes Screenin g [facility] Start: 01-05-2026 Diabetes Screening Diabetes Screenin g [facility] Start: 12-31-2025 Depression Screening Depression Scre enchantal [facility] Start: 11-09-2025 DIABETES SCREEN DIABETES SCREEN [facility] Start: 10-20-2025 DIABETES SCREEN DIABETES SCREEN [facility] Start: 10-12-2025 DIABETES SCREEN DIABETES SCREEN [facility] Start: 09-14-2025 DIABETES SCREEN DIABETES SCREEN [facility] Start: 08-18-2025 DIABETES SCREEN DIABETES SCREEN [facility] Start: 07-18-2025 DIABETES SCREEN DIABETES SCREEN [facility] Start: 06-20-2025 DIABETES SCREEN DIABETES SCREEN [facility] Start: 05-23-2025 DIABETES SCREEN DIABETES SCREEN [facility] Start: 04-25-2025 DIABETES SCREEN DIABETES SCREEN [facility] Start: 02-04-2025 End: 02-04-2025 ambulatory [facility] Comment on above: (SO)CBC/CMP(S)/PSA* 3MO OV/LAB EARLY/ZOM ETA,LUPRON TODAY* [facility] 2nd Start: 01-28-2025 End: 01-28-2025 Patient encounter procedure 01/28/2025 9:00 AM EST Office Visit Urology [address] [place] [address] Pranav Tate PA-C [address] [place] [address] 1 YR F/U Urology Comment on above: 1 YR F/U Start: 01-10-2025 End: 01-10-2025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 Received referral and reviewed chart. Unable to discuss Phase II Cardiopulmonary Rehab Referral with Alex Carpenter at this time. Will follow to discuss program when appropriate. Patient will be contacted at home if discharged prior to discussion. [facility] 12-24-2024 Note Received referral an d reviewed chart. Unable to discuss Phase II Cardiopulmonary Rehab Referral with Alex Carpenter at this time. Will follow to discuss program when appropriate. Patient will be contacted at home if discharged prior to discussion. [facility] 12-24-2024 Consult note Associated Order (s): IP CONSULT TO CARDIAC REHAB Received referral and reviewed chart. Unable to discuss Phase II Cardiopulmonary Rehab Referral with Alex Carpenter at this time. Will follow to discuss program when appropriate. Patient will be contacted at home if discharged prior to discussion. documented in this encounter [facility] 12-24-2024 Note Attestation signed by Lashell Salas [...] discharge. Referral has been made to the [facility] Outpatient Cardiac Rehabilitation Program. Last Labs: Lab Results Component Value Date WBC 8.7 12/24/2024 HGB 11.9 (L) 12/24/2024 HCT 35.5 (L) 12/24/2024 MCV 95.4 12/24/2024 PLT 221 12/24/2024 Lab Results Component Value Date NA 139 12/24/2024 K 3.9 12/24/2024 CL 104 12/24/2024 CO2 24 12/24/2024 BUN 26 (H) 12/24/2024 CREATININE 0.86 12/24/2024 GLUCOSE 109 12/24/2024 CALCIUM 8.8 12/24/2024 No results found for: CHLPL, CHOL No results found for: TRIG No results found for: HDL No results found for: LDLCALC Discharge Medications: Medication List CONTINUE taking these medications aspirin 81 MG EC tablet atorvastatin 20 MG tablet Commonly known as: Lipitor [id number] D PO hydroCHLOROthiazide 12.5 MG tablet losartan 25 MG tablet Commonly known as: Cozaar MAGnesium-Oxide 400 (240 Mg) MG tablet Generic drug: magnesium oxide metoprolol tartrate 25 MG tablet Commonly known as: Lopressor nitroglycerin 0.4 MG (more content not included)... [facility] 12-24-2024 Hospital Discharg e instructions Freddie Bee GUM SCORING MACHINE OPERATOR - JAVA ENTERPRISE ARCHITECT - 12/24/2024 9:06 AM EDT - Please call the [facility] with any questions: [phone] -You will have have the following follow [...] unless otherwise specified. documented in this encounter [facility] 12-23-2024 Note Patient: Alex irwin Procedure Summary Date: 12/23/24 Room / Location: [facility] Operating Room Anesthesia Start: 1430 Anesthesia [...] opportunity for questions and acknowledgement of understanding. [facility] 12-23-2024 Note Patient: Alex irwin Procedure Summary Date: 12/23/24 Room / Location: [facility] Operating Room Anesthesia Start: 1430 Anesthesia Stop: [...] once all PACU criteria has been met. [facility] 12-23-2024 Note Arterial Line: Date/Time: 12/23/2024 3:13 PM An arterial line was placed in the Procedural Area for the following indication(s): . A (size) (length) (type) catheter was placed, into the Right secured by . Staffing Performed: Other Other staff: Lashell Salas MD [facility] 12-23-2024 Note H&P reviewed. The pa tient was examined and there are no changes to the H&P. [facility] 12-23-2024 Procedure note CARDIOTHORACIC SURGERY--OPERATIVE NOTE Date: 12/23/24 Preoperative diagnosis: Severe symptomatic aortic stenosis Chronic diastolic congestive heart failure Frailty Postoperative diagnosis: Severe symptomatic aortic stenosis Chronic diastolic congestive heart failure Frailty Surgeon: Tam Cervantes DO Data Analysis Manager: Lashell Salas MD Bag Presser: Randal Procedure: Transcatheter aortic valve replacement with [...] Disposition: Stable to ICU Tam Cervantes DO [facility] Cardiothoracic Surgery [facility] [employer] Phone: 12-23-2024 Miscellaneous Notes CARDIOTHORACIC SURGERY--OPERATIVE NOTE Date: 12/23/24 Preoperative diagnosis: Severe symptomatic aortic stenosis Chronic diastolic congestive heart failure Frailty Postoperative diagnosis: Severe symptomatic aortic stenosis Chronic diastolic congestive heart failure Frailty Surgeon: Tam Cervantes DO Data Analysis Manager: Lashell Salas MD Bag Presser: Randal Procedure: Transcatheter aortic valve replacement with [...] the procedure well. Disposition: Stable to ICU RClaude Cervantes DO [facility] Cardiothoracic Surgery documented in this encounter [facility] 12-20-2024 History and physical note Images from the original note were not included. Lashell Salas MD Cardiology Severe aortic stenosis Dx Cardiac Valve Problem New Patient ; Referred by Osman Bui Reason for Visit Progress Notes Lashell Salas MD (Physician) Cardiology Expand All Collapse All [facility] [place] [address] [facility] [address] Dept: [phone] Dept Visit type: New : 1935 Reason for Visit: New patient, Heart Valve clinic Assessment and Plan 1. Severe aortic stenosis - CBC auto differential - Comprehensive metabolic panel - CTA Angiogram TAVR - Case Request Roofer Helper Vinyl Coating: Transcatheter aortic valve replacement (TAVR), TRANSCATHETER AORTIC [...] 20 mg by mouth., Disp: , Rfl: [id number] E PO, [place] 2-Typ-Aau-Fish Oil (Fish Oil) 300-1,000 mg capsule Active 1 NMA PO DAILY January 24, 2024 1:00am, Disp: , Rfl: furosemide (Lasix) 20 MG tablet, Take 20 mg by mouth daily., Disp: , Rfl: [id number] D PO, Take by mouth., Disp: , [...] Weight: 179 lb (81.2 kg) Height: 5' 6 (1.676 m) Physical Exam Constitutional: General: He [...] Reviewed and Summarized No results found for: EFBP, PLVEF, LVEFPHYS, LVEF2D, EF Review of tests/labs done/ordered within my [...] Salas MD at 12/27/2024 9:31 PM EDT [facility] 12-20-2024 History and physical note Images from the original note were not included. Lashell Salas MD Cardiology Severe aortic stenosis Dx Cardiac Valve Problem New Patient ; Referred by Osman Bui Reason for Visit Progress Notes Lashell Salas MD (Physician) Cardiology Expand All Collapse All [facility] [place] [address] [place] [address] Dept: [phone] Dept Visit type: New : 1935 Reason for Visit: New patient, Heart Valve clinic Assessment and Plan 1. Severe aortic stenosis - CBC auto differential - Comprehensive metabolic panel - CTA Angiogram TAVR - Case Request Roofer Helper Vinyl Coating: Transcatheter aortic valve replacement (TAVR), TRANSCATHETER AORTIC [...] 20 mg by mouth., Disp: , Rfl: [id number] E PO, [place] 1-Ymf-Oay-Fish Oil (Fish Oil) 300-1,000 mg capsule Active 1 NMA PO DAILY January 24, 2024 1:00am, Disp: , Rfl: furosemide (Lasix) 20 MG tablet, Take 20 mg by mouth daily., Disp: , Rfl: [id number] D PO, Take by mouth., Disp: , [...] Weight: 179 lb (81.2 kg) Height: 5' 6 (1.676 m) Physical Exam Constitutional: General: He [...] Reviewed and Summarized No results found for: EFBP, PLVEF, LVEFPHYS, LVEF2D, EF Review of tests/labs done/ordered within my [...] 9:31 PM EDT documented in this encounter [facility] 12-20-2024 Note Lashell Salas MD Cardiology Severe aortic stenosis Dx Cardiac Valve Problem New Patient ; Referred by Osman Bui Reason for Visit Progress Notes Lashell Salas MD (Physician) Cardiology Expand All Collapse All [facility] [place] [address] [place] [address] Dept: [phone] Dept Visit type: New : 1935 Reason for Visit: New patient, Heart Valve clinic Assessment and Plan 1. Severe aortic stenosis - CBC auto differential - Comprehensive metabolic panel - CTA Angiogram TAVR - Case Request Roofer Helper Vinyl Coating: Transcatheter aortic valve replacement (TAVR), TRANSCATHETER AORTIC [...] 20 mg by mouth., Disp: , Rfl: [id number] E PO, [place] 2-Axg-Oxb-Fish Oil (Fish Oil) 300-1,000 mg capsule Active 1 NMA PO DAILY January 24, 2024 1:00am, Disp: , Rfl: furosemide (Lasix) 20 MG tablet, Take 20 mg by mouth daily., Disp: , Rfl: [id number] D PO, Take by mouth., Disp: , [...] Smoking status: Nev (more content not included)... [facility] 12-20-2024 Note Lashell Salas MD Cardiology Severe aortic stenosis Dx Cardiac Valve Problem New Patient ; Referred by Osman Bui Reason for Visit Progress Notes Lashell Salas MD (Physician) Cardiology Expand All Collapse All [facility] [place] [address] [facility] [address] Dept: [phone] Dept Visit type: New : 1935 Reason for Visit: New patient, Heart Valve clinic Assessment and Plan 1. Severe aortic stenosis - CBC auto differential - Comprehensive metabolic panel - CTA Angiogram TAVR - Case Request Roofer Helper Vinyl Coating: Transcatheter aortic valve replacement (TAVR), TRANSCATHETER AORTIC [...] 20 mg by mouth., Disp: , Rfl: [id number] E PO, [place] 8-Cml-Drg-Fish Oil (Fish Oil) 300-1,000 mg capsule Active 1 NMA PO DAILY January 24, 2024 1:00am, Disp: , Rfl: furosemide (Lasix) 20 MG tablet, Take 20 mg by mouth daily., Disp: , Rfl: [id number] D PO, Take by mouth., Disp: , [...] Smoking status: Nev (more content not included)... [facility] 12-20-2024 Note Patient: Alex irwin Procedure Information Date/Time: 12/23/24 1400 Procedures: TRANSCATHETER AORTIC VALVE REPLACEMENT, TRANSTHORACIC ECHOCARDIOGRAM TRANSCATHETER AORTIC VALVE REPLACEMENT, TRANSTHORACIC ECHOCARDIOGRAM (Chest) Location: [facility] Operating Room Surgeons: Lashell Salas MD; [...] transducer [1] No family history on file. [facility] 12-19-2024 Note Pre TAVR phone call placed. Reviewed, procedure, instructions and meds. Pt verbalizes understanding. Pt knows to call [phone] with any concerns. 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 Salas 2nd surgeon: Dr. Cervantes Admission type: To be admitted Anesthesia: MAC Completed: H&P/EKG/CMP/CBC/CXR/CTA Date completed: 12/12/24 Additional orders Will need T&S AM of procedure [facility] 12-19-2024 Telephone encounter Note Pre TAVR phone call placed. Reviewed, procedure, instructions and meds. Pt verbalizes understanding. Pt knows to call [phone] with any concerns. 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 Salas 2nd surgeon: Dr. Cervantes Admission type: To be admitted Anesthesia: MAC Completed: H&P/EKG/CMP/CBC/CXR/CTA Date completed: 12/12/24 Additional orders Will need T&S AM of procedure T [facility] 12-10-2024 Telephone encounter Note Approved [id number] 12/23-12/24/24 Scanned in under Sqoot Calendars updated and requested on Snapboard T [facility] 12-05-2024 [place] [id number] pending on Availity # [id number] T [facility] 11-27-2024 Telephone encounter Note Received notification, okay to add 5th TAVR case on for 12/23. Patient scheduled for CTA on 12/12/24, reviewed fasting 4 hours prior and oral hydration protocol. Verbalized understanding. CMP completed 11/12/24. TAVR procedure, instructions reviewed with pt and family. Patient scheduled for TAVR on 12/23/24 at 2:30 pm Will report to [facility] by 12:30 pm Can park in the [facility] Parking Deck or use [facility] parking at the [facility] entrance Plan on overnight stay in the [...] Pre-op testing done 12/12/24 Patient/family verbalized understanding. [facility] 11-26-2024 Note Dx: Procedure: TAVR Date/Time: 12/23/24 at [facility] Surgeon: PB Location: [facility] Admission: [facility] Anesthesia: MAC CTA sched 12/12/24 at 11:00a. We are waiting to see if we can add on a 5th case so time is tentative pending that. I went ahead and printed ins card to start auth. [facility] 11-26-2024 Telephone encounter Note Dx: Procedure: TAVR Date/Time: 12/23/24 at [facility] Surgeon: PB Location: [facility] Admission: [facility] Anesthesia: MAC CTA sched 12/12/24 at 11:00a. We are waiting to see if we can add on a 5th case so time is tentative pending that. I went ahead and printed ins card to start auth. [facility] 11-26-2024 History of Presen t illness Narrative Images from the original note were not included. [facility] - [address] [address] Dept: [phone] Dept Visit type: New : 1935 Reason for Visit: New patient, Heart Valve clinic Assessment and Plan 1. Severe aortic stenosis - CBC auto differential - Comprehensive metabolic panel - CTA Angiogram TAVR - Case Request Roofer Helper Vinyl Coating: Transcatheter aortic valve replacement (TAVR), TRANSCATHETER AORTIC [...] Weight: 179 lb (81.2 kg) Height: 5' 6 (1.676 m) Physical Exam Constitutional: General: He [...] Reviewed and Summarized No results found for: EFBP, PLVEF, LVEFPHYS, LVEF2D, EF Review of tests/labs done/ordered within my [...] 20 mg by mouth., Disp: , Rfl: AUA-DVE-OXVIQEN E PO, [place] 9-Qmg-Msh-Fish Oil (Fish Oil) 300-1,000 mg capsule Active 1 NMA PO DAILY January 24, 2024 1:00am, Disp: , Rfl: furosemide (Lasix) 20 MG tablet, Take 20 mg by mouth daily., Disp: , Rfl: DUMSEFAIYAP-ZQRPBHY-GNT D PO, Take by mouth., Disp: , [...] history on file. documented in this encounter [facility] 11-26-2024 History of Presen t illness Narrative Images from the original note were not included. [facility] [place] [address] [facility] [address] Dept: [phone] Dept Visit type: New : 1935 Reason for Visit: New patient, Heart Valve clinic Assessment and Plan 1. Severe aortic stenosis - CBC auto differential - Comprehensive metabolic panel - CTA Angiogram TAVR - Case Request Roofer Helper Vinyl Coating: Transcatheter aortic valve replacement (TAVR), TRANSCATHETER AORTIC [...] Weight: 179 lb (81.2 kg) Height: 5' 6 (1.676 m) Physical Exam Constitutional: General: He [...] Reviewed and Summarized No results found for: EFBP, PLVEF, LVEFPHYS, LVEF2D, EF Review of tests/labs done/ordered within my [...] 20 mg by mouth., Disp: , Rfl: ZOY-OWP-GTOOHZM E PO, [place] 8-Sfs-Bug-Fish Oil (Fish Oil) 300-1,000 mg capsule Active 1 NMA PO DAILY January 24, 2024 1:00am, Disp: , Rfl: furosemide (Lasix) 20 MG tablet, Take 20 mg by mouth daily., Disp: , Rfl: UIFLOJBKPYF-KZUJVLD-ONM D PO, Take by mouth., Disp: , [...] history on file. documented in this encounter [facility] 11-12-2024 Note HNO ID: [id number] Author: EVERETT ALDRICH MD Service: ? Author [...] mg by mouth once daily. GLUCOSAM/MSM/CHONDR/VIT C/HYAL (TCTMLIHYFLL-BPWOYPTHQEM-WDG ORAL) Take 1 tablet by mouth two [...] mouth once andrew (more content not included)... [facility] 11-12-2024 History of Presen t illness Narrative (Elements copied from my note dated May 28, 2024, have been reviewed and updated where appropriate, and all reflect current assessment and medical decision making from today's encounter, November 12, 2024) HISTORY OF PRESENT ILLNESS: Alex Carpenter is a 89 year old male diagnosed with prostate cancer in 1998, status post radical prostatectomy for Letona score 6 = 3+3. He had been [...] mg by mouth once daily. GLUCOSAM/MSM/CHONDR/VIT C/HYAL (WQPOHXFIOAV-PPLIZCRXUGK-MOW ORAL) Take 1 tablet by mouth two [...] (Patient not taking: Reported on 08/20/2024) Fish Oil-[place]-3 Fatty Acids 500-300 mg ORAL Cap Take [...] which included preparing to see the patient, jlct-jm-vdhv patient care, completing clinical documentation, obtaining and/or reviewing separately obtained history, ordering medications, tests, or procedures, independently interpreting results (not separately reported), and communicating results to the patient/family/caregiver. Electronically Signed: Everett Aldrich MD November 12, 2024 documented in this encounter [facility] 09-29-2024 Progress note [facility] 09-26-2024 Radiology Diagnostic study note [facility] Imaging Services [address] [place] [address] Chest PA and Lateral MR#: [id number] Acct: [id number] Name: ALEX CARPENTER Rep #: [id number] : 1935 M 89 From: Kirby Amaya MD PCP: Dr. Otto Subramanian MD Status: PRE [facility] Study:Chest PA and Lateral Date of Exam: 09/26/24 Exam# [id number] Ordering Dr: Riri Peralta MANAGER GLOBAL MANAGER GLOBAL-C PROCEDURE: CHEST PA AND LATERAL 09/26/2024 REASON FOR EXAM: CARDIAC CATH TECHNIQUE: CHEST PA AND LATERAL COMPARISON: None. FINDINGS: The heart is enlarged. Ill-defined opacities of the bilateral lower lobes whichmay represent atelectasis or developing infection. The edema is possible. No pleural effusion or pneumothorax. RAD/Chest PA and Lateral IMPRESSION: Pulmonary findings as above. Reading Location: [id number] CC: VIKRAM Peralta; Dr. 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 September 26, 2024 7:53am Left leg cellulitis acute September 29, 2024 9:27am [facility] Work Phone: 1(863) 127-298907-10-2025 Evaluation note* Diagnosis Onset Date Resolution Status [...] 10 11:10am Atherosclerotic heart diseas e of [place] coronary artery without angina pectoris chronic January 10 11:10am Essential hypertension chronic Oc 2024 11:10am Hyperlipidemia chronic January 102024 11:10am S/P TAVR (transcatheter aort ic valve replacement) chronic January 10, 2025 11:10am [facility] Work Phone: 1(996) 260-437906-03-2025 NoteHNO ID: [id number] Author: CRISSY MAI, ? Service: ? Author Type: Nurse Practitioner Type: Progress Notes Filed: 08/20/2024 15:40 Note Text: Alex Carpenter 1935 08/20/2024 HISTORY OF PRESENT ILLNESS: Alex Carpenter is a 87 year old male diagnosed with prostate cancer in 1998, status post radical prostatectomy for Letona score 6 = 3+3. He had been [...] by mouth once daily.Disp: Rfl: GLUCOSAM/MSM/CHONDR/VIT C/HYAL (DYPTOHWAUDS-JJQEJZCALPV-WKO ORAL)Take 1 tablet by mouth two times a day.Disp: Rfl: nitroglycerin sublingual (NITROQUICK) 0.4 mg SL tabletDissolve 0.4 mg under the tongue every 5 minutes as needed.Disp: Rfl: Fish Oil-[place]-3 Fatty Acids 500-300 mg ORAL CapTake by [...] by mouth once daily.Disp: (more content not included)...[facility]06-03-2025 History of Present illness Narrative* Crissy Mai - 08/20/2024 12:59 PM EDT Alex Carpenter 1935 08/20/2024 HISTORY OF PRESENT ILLNESS: Alex Carpenter is a 87 year old male diagnosed with prostate cancer in 1998, status post radical prostatectomy for Letona score 6 = 3+3. He had been [...] by mouth once daily.^Disp: ^Rfl: GLUCOSAM/MSM/CHONDR/VIT C/HYAL (FYDJDTGUJPR-ENORIHOGUPL-RHM ORAL)^Take 1 tablet by mouth two times a day.^Disp: ^Rfl: nitroglycerin sublingual (NITROQUICK) 0.4 mg SL tablet^Dissolve 0.4 mg under the tongue every 5 minutes as needed.^Disp: ^Rfl: Fish Oil-[place]-3 Fatty Acids 500-300 mg ORAL Cap^Take by [...] to correlate with current findings. Crissy Mai APRN.JAVA ENTERPRISE ARCHITECT I spent a total of 30 minutes on the date of the service which included preparing to see the patient, kftb-uv-mlak patient care, completing clinical documentation, obtaining and/or [...] evaluation of this patient. documented in this [facility]Tr[facility]25 Discharge summary Author Otto Shirley [facility] Note Date/Time July 25, 2024 3:56pm [facility] Physical Therapy [facility] [address] [place] [address]. [address] [place] [address] / REHABILITATION SERVICES DISCHARGE SUMMARY MR#: [id number] Acct: [id number] Name: ALEX CARPENTER Rep #: [id number] : 1935 88 From: Otto Shirley DPT, OCS, CSCS Referring Dr.: Dr. Otto Subramanian MD Status: REG RCR [facility] Patient Information Patient [...] Dr. Otto Subramanian MD ~ EBG Signed [facility] Work Phone: 1(955) 534-195505-08-2025 Discharge summary [facility] Physical Therapy [address] [place] [address] / REHABILITATION SERVICES DISCHARGE SUMMARY MR#: [id number] Acct: [id number] Name: ALEX CARPENTER Rep #: [id number] : 1935 88 From: Otto Shirley DPT, DENISE, CSCS Referring Dr.: Dr. Otto Subramanian MD Status: REG R Insurance: [facility] SELF PAY INSURANCE Patient Information Patient [...] Seconds: 8 07/25/24 1556 CC: Dr. Otto Subramainan MD ~ EBG Signed [facility]04-10-2025 Evaluation note* Diagnosis Onset Date Resolution Status Admit Date Carotid artery disease acute Ap ril 2024 10:37am Nonrheumatic aortic (valve) stenosis acute June 27, 2024 10:37am Essential hypertension chronic Ap ril 2024 10:37am Hyperlipidemia chronic June 10:37am SHAMAR (obstructive sleep apnea) chroni c June 27, 2024 10:37am Presence of stent in coronar y artery Jul, 2013 chronic June 27, 2024 10:37am [facility] Work Phone: [phone]) 932-969204-10-2025 Evaluation note* Diagnosis Onset Date Resolution Status [...] Jul, 2013 chronic September 26, 2024 7:53am [facility] Work Phone: 1([phone]) 361-490304-10-2025 Evaluation note* Diagnosis Onset Date Resolution Status [...] leg cellulitis acute September 29, 2024 9:27am [place] [facility] [facility] Work Phone: 1(248) 881-804804-01-2025 Instructions* Patient Instructions* Leisa Robb PA-C - [...] and <40 for men See spine at [facility] for lumbar stenosis [phone] Follow up as needed documented in this encounterTrinity Health System04-01-2025 NoteHNO ID: [id number] Author: LEISA ROBB PA-C Service: ? Author Type: Physician Micro Computer Specialist Type: Progress Notes Filed: 06/18/2024 14:43 Note Text: [facility] Name: Alex [...] malignancy or chemo (ne (more content not included)...[facility]04-01-2025 History of Present illness Narrative* Leisa Robb PA-C - 06/18/2024 1:32 PM EDT Images from the original note were not included. [facility] Name: Alex [...] mg by mouth once daily. GLUCOSAM/MSM/CHONDR/VIT C/HYAL (JPOLGSTMLOF-FXBHYJMTWIN-JEM ORAL) Take 1 tablet by mouth two times a day. nitroglycerin sublingual 0.3 mg SL tablet Dissolve 0.3 mg under the tongue every 5 minutes as needed. Calcium Carbonate-Vitamin D3 600mg (1,000mg) -1,000 unit ORAL Tab Take 1 tablet by mouth once daily. Fish Oil-Denton-3 Fatty Acids 500-300 mg ORAL Cap Take [...] 4.00 k/uL Monocytes % 7.2 % Abs [place] 1.09 (H) <0.87 k/uL Eosinophils % 0.4 [...] LEFT ICA origin stenosis. Patent intracranial circulation. Research Associate Policy: PSCKeith Transcribe Date/Time: Jun 04 2024 10:48A Dictated [...] and assume there are 5 lumbar-type vertebrae. Research Associate Policy: PSCB Transcribe Date/Time: Jun 04 2024 11:13A Dictated by : BRITTANIE MURCIA MD This examination was interpreted and the report reviewed and electronically signed by: BRITTANIE MURCIA MD on Jun 04 2024 11:17AM EST This note was dictated using naaptol speech recognition software and may contain some [...] which included preparing to see the patient, xkun-gb-rtat patient care, completing clinical documentation, obtaining and/or reviewing separately obtained history, performing a medically appropriate examination, counseling and educating the pat ient/family/caregiver, and ordering medications, tests, or procedures. documented in this encounterTrinity Health System03-18-2025 Telephone encounter Note * Telephone Encounter - Guzman Sánchez LPN - 06/04/2024 2:44 PM EDT Called and spoke to patient, advised of message below. Patient verbalized understanding. Patient does not want to go outside [facility] to see specialist. Advised [place] does have solar energy specialist. Patient would like consult placed, once consult placed nurse will fax consult over to [place]. Patient in agreement with plan. Please place order. Guzman Sánchez LPN June 04, 2024 2:45 PM [facility]03-18-2025 Miscellaneous Notes* Telephone Encounter - Guzman Sánchez LPN - 06/04/2024 2:44 PM EDT Called and spoke to patient, advised of message below. Patient verbalized understanding. Patient does not want to go outside [facility] to see specialist. Advised [place] does have solar energy specialist. Patient would like consult placed, once consult placed nurse will fax consult over to [place]. Patient in agreement with plan. 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 Would like pt to see Spine/NSGY. If he agrees, will placereferral. Thank you, Kaushal Stockton MD [facility]03-18-2025 History of Present illness Narrative* Maty Tran, [...] PATIENT PRESENTS WITH AN IMPLANTABLE OR ATTACHED RATTLE LEAK AND SQUEAK REPAIRER: No ALLERGIES: Reviewed and unchanged CONTRAST ALLERGY: NO. EXAM: MRI - CONTRAST TYPE: GROUP II PERIPHERAL IV DATA: Ambulatory: A peripheral IV was started in the Left antecubital site with a Angio cath: 22 gauge. RADIOLOGY DEPARTMENT: MR; Exam(s) Completed: Head: Routine Brain [place] MRA Neck: Carotids MRA, bilateral Spine: Lumbar spine SIGNATURE: LUBA Smith) PATIENT NAME: Alex Carpenter DATE: June 04, 2024 TIME: 9:20 AM documented in this encounterTrinity Health System03-18-2025 NoteHNO ID: [id number] Author: MATY TRAN RT(R) Service: ? Author [...] PATIENT PRESENTS WITH AN IMPLANTABLE OR ATTACHED RATTLE LEAK AND SQUEAK REPAIRER: No ALLERGIES: Reviewed and unchanged CONTRAST ALLERGY: NO. EXAM: MRI - CONTRAST TYPE: GROUP II PERIPHERAL IV DATA: Ambulatory: A peripheral IV was started in the Left antecubital site with a Angio cath: 22 gauge. RADIOLOGY DEPARTMENT: MR; Exam(s) Completed: Head: Routine Brain [place] MRA Neck: Carotids MRA, bilateral Spine: Lumbar spine SIGNATURE: Maty Tran, RT(R) PATIENT NAME: Alex Carpenter DATE: June 04, 2024 TIME: 9:20 [facility]03-11-2025 NoteHNO ID: [id number] Author: ELIJAH MERCHNAT RN Service: ? Author Type: Registered Nurse Type: Progress Notes Filed: 05/28/2024 14:05 Note Text: OV prior to tx. Elijah Merchant [facility] History of Present illness Narrative* Elijah Merchant RN - 05/28/2024 1:58 PM EDT OV prior to tx. Elijah Merchant RN documented in this encounterTrinity Health System03-11-2025 NoteHNO ID: [id number] Author: EVERETT ALDRICH MD Service: ? Author [...] mg by mouth once daily. GLUCOSAM/MSM/CHONDR/VIT C/HYAL (NWTYXSRBTFO-OMUYFYBIWVC-ZZX ORAL) Take 1 tablet by mouth two [...] tablets (180mg) by mouth once daily. Fish Oil-[place]-3 Fatty Acids 500-300 mg ORAL Cap Take [...] I spent a tot (more content not included)...[facility]03-11-2025 History of Present illness Narrative* Everett [...] in 1998, status post radical prostatectomy for Letona score 6 = 3+3. He had been [...] mg by mouth once daily. GLUCOSAM/MSM/CHONDR/VIT C/HYAL (PXKVWCJRQKF-GAIRRNYNQCZ-JPB ORAL) Take 1 tablet by mouth two [...] tablets (180mg) by mouth once daily. Fish Oil-[place]-3 Fatty Acids 500-300 mg ORAL Cap Take [...] which included preparing to see the patient, apic-gv-zobf patient care, completing clinical documentation, obtaining and/or reviewing separately obtained history, ordering medications, tests, or procedures, independently interpreting results (not separately reported), and communicating results to the patient/family/caregiver. Electronically Signed: Everett Aldrich MD May 28, 2024 documented in this encounterTrinity Health System03-07-2025 Telephone encounter Note * Telephone Encounter - Guzman Sánchez LPN - 05/24/2024 1:42 PM EST Request sent Guzman Sánchez LPN May 24, 2024 1:42 PM [facility]03-07-[facility]25 Miscellaneous Notes* Telephone Encounter - Guzman Sánchez [...] PCP office. Thank you. documented in this encounterTrinity Health System03-07-2025 Telephone encounter Note * Telephone Encounter - Renetta Edouard LPN - 05/24/2024 11:55 AM EST Images from the original note were not included. Kaushal Stockton Jr., MD P tr Neur [place] Nurse Please request recent labs including B12, sed rate, TSH, AZ, A1c, CMP from PCP office. Thank you. [facility]03-07-2025 NoteHNO ID: [id number] Author: KAUSHAL STOCKTON JR, MD Service: ? [...] imaging. CT brain completed on 06/22/22 at [facility] reportedly showed no acute changes but [...] 07/11/2022) hydroCHLOROthiazide (HYDRODIURIL, AKHIL (more content not included)...[facility]03-07-2025 History of Present illness Narrative* Kaushal [...] imaging. CT brain completed on 06/22/22 at [facility] reportedly showed no acute changes but [...] mg by mouth once daily. GLUCOSAM/MSM/CHONDR/VIT C/HYAL (GPPMFDPIBSM-XZAMMOKCWXH-JDK ORAL) Take 1 tablet by mouth two times a day. nitroglycerin sublingual 0.3 mg SL tablet Dissolve 0.3 mg under the tongue every 5 minutes as needed. Calcium Carbonate-Vitamin D3 600mg (1,000mg) -1,000 unit ORAL Tab Take 1 tablet by mouth once daily. Fish Oil-Denton-3 Fatty Acids 500-300 mg ORAL Cap Take [...] 05/24/2024 10:47 AM EST documented in this encounterTrinity Health System03-07-2025 NoteHNO ID: [id number] Author: GUZMAN SÁNCHEZ LPN Service: ? Author Type: LICENSED NURSE Type: Progress Notes Filed: 05/24/2024 11:43 Note Text:[facility]03-06-2025 Chief complaint+Reason for visit Narrative* Chief Complaint Admit Date BALANCE EVALUATION. 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 Author [...] in 1998, status post radical prostatectomy for Letona score 6 = 3+3. He had been [...] mg by mouth once daily. GLUCOSAM/MSM/CHONDR/VIT C/HYAL (ZEMMHTVZYNO-PWRUKATPRXI-DHT ORAL) Take 1 tablet by mouth two [...] (Patient not taking: Reported on 07/11/2022) Fish Oil-Denton-3 Fatty Acids 500-300 mg ORAL Cap Take [...] well-hydrated, well nourished. I (more content not included)...[facility]12-17-2024 History of Present illness Narrative* Everett [...] mg by mouth once daily. GLUCOSAM/MSM/CHONDR/VIT C/HYAL (PMUBQBCZYFD-VZLLRVPIBUY-ULL ORAL) Take 1 tablet by mouth two [...] daily. (Patient not taking:Reported on 07/11/2022) Fish Oil-[place]-3 Fatty Acids 500-300 mg ORAL Cap Take [...] which included preparing to see the patient, nwqv-uf-xljb patient care, completing clinical documentation, obtaining and/or reviewing separately obtained history, ordering medications, tests, or procedures, independently interpreting results (not separately reported), and communicating results to the patient/family/caregiver. Electronically Signed: Everett Aldrich MD March 05, 2024 documented in this encounterTrinity Health System11-05-2024 Instructions* Patient Instructions* Pranav Tate PA-C - 01/23/2024 4:44 PM EST > 1 year Appt w/ B. SHARRI Tate, RODRICK LEUNG for annual follow-up and refills. documented in this encounterTrinity Health System11-05-2024 NoteHNO ID: [id number] Author: PRANAV TATE PA-C Service: ? Author Type: Physician Micro Computer Specialist Type: Progress Notes Filed: 01/23/2024 20:33 Note Text: [facility] [place] CC: Prostate Cancer Follow-Up HPI: This is [...] mg by mouth once daily. GLUCOSAM/MSM/CHONDR/VIT C/HYAL (FYBZDMPUQMB-MTCVJHJTUJB-WBL ORAL) Take 1 tablet by mouth two times a day. nitroglycerin sublingual 0.3 mg SL tablet Dissolve 0.3 mg under the tongue every 5 minutes as needed. Calcium Carbonate-Vitamin D3 600mg (1,000mg) -1,000 unit ORAL Tab Take 1 tablet by mouth once daily. Fish Oil-[place]-3 Fatty Acids 500-300 mg ORAL Cap Take [...] to visit, PSA ordered SHARRI Palacios, MADHU, MARIE-[facility]11-05-2024 History of Present illness Narrative* Pranav Tate PA-C - 01/23/2024 4:40 PM EST Images from the original note were not included. [facility] [place] CC: Prostate Cancer Follow-Up HPI: This is [...] mg by mouth once daily. GLUCOSAM/MSM/CHONDR/VIT C/HYAL (MRMXODJTFLJ-PBJVZBLDFUV-MST ORAL) Take 1 tablet by mouth two times a day. nitroglycerin sublingual 0.3 mg SL tablet Dissolve 0.3 mg under the tongue every 5 minutes as needed. Calcium Carbonate-Vitamin D3 600mg (1,000mg) -1,000 unit ORAL Tab Take 1 tablet by mouth once daily. Fish Oil-Denton-3 Fatty Acids 500-300 mg ORAL Cap Take [...] from the original note were not included. [facility] EST PATIENT CLINIC NOTE SERVICE DATE: January 23, 2024 NAME: Alex Carpenter CHIEF COMPLAINT: Hx of Adenocarcinoma of Prostate and OAB HISTORY OF PRESENT ILLNESS: Alex Carpenter is a 88 year old male an established patient following up for Hx of Adenocarcinoma of Prostate and OAB The patient reports running out of his Ditropan and new Rx sent to [facility] today Continued follow-up with Medical Oncology PSA [...] mg by mouth once daily. GLUCOSAM/MSM/CHONDR/VIT C/HYAL (PDRENOFAYPQ-KSBQHXABMDB-NMO ORAL) Take 1 tablet by mouth two times a day. nitroglycerin sublingual 0.3 mg SL tablet Dissolve 0.3 mg under the tongue every 5 minutes as needed. Calcium Carbonate-Vitamin D3 600mg (1,000mg) -1,000 unit ORAL Tab Take 1 tablet by mouth once daily. Fish Oil-Denton-3 Fatty Acids 500-300 mg ORAL Cap Take [...] here now for an appointment with SHARRI Plaacios MT, PA-COV. Procedure: Explained procedure to patient and verbalizes understanding. Performed a PVR. Patient urinated and instructed to empty bladder as much as possible just prior to having PVR done using bladder ultrasound scanner. Results of scan: 0 mL The patient tolerated the procedure well. Plan: Appointment with Brandon. An Crespo RN January 23, 2024 4:20 PM documented in this encounterTrinity Health System11-05-2024 NoteHNO ID: [id number] Author: PRANAV TATE PA-C Service: ? Author Type: Physician Micro Computer Specialist Type: Progress Notes Filed: 01/23/2024 20:33 Note Text: [facility] EST PATIENT CLINIC NOTE SERVICE DATE: January 23, 2024 NAME: Alex Carpenter CHIEF COMPLAINT: Hx of Adenocarcinoma of Prostate and OAB HISTORY OF PRESENT ILLNESS: Alex Carpenter is a 88 year old male an established patient following up for Hx of Adenocarcinoma of Prostate and OAB The patient reports running out of his Ditropan and new Rx sent to [facility] today Continued follow-up with Medical Oncology PSA [...] mg by mouth once daily. GLUCOSAM/MSM/CHONDR/VIT C/HYAL (WKTIBKYJCRH-YKVWPLQMOWW-JYH ORAL) Take 1 tablet by mouth two times a day. nitroglycerin sublingual 0.3 mg SL tablet Dissolve 0.3 mg under the tongue every 5 minutes as needed. Calcium Carbonate-Vitamin D3 600mg (1,000mg) -1,000 unit ORAL Tab Take 1 tablet by mouth once daily. Fish Oil-Denton-3 Fatty Acids 500-300 mg ORAL Cap Take [...] 1 year Appt w/ BSHARRI Whitehead MT, RODRICK for annual follow-up and refills. SHARRI Palacios MT, PA-[facility]11-05-2024 NoteHNO ID: [id number] Author: AN CRESPO RN Service: ? Author Type: Registered Nurse Type: Progress Notes Filed: 01/23/2024 20:33 Note Text: Verified name and date of . CC Post Void Residual HPI: Alex Carpenter is a 88 year old male. The patient is here now for an appointment with SHARRI Palacios MT, PA-MODESTA. Procedure: Explained procedure to patient and verbalizes understanding. Performed a PVR. Patient urinated and instructed to empty bladder as much as possible just prior to having PVR done using bladder ultrasound scanner. Results of scan: 0 mL The patient tolerated the procedure well. Plan: Appointment with Brandon. An Crespo RN January 23, 2024 4:20 [facility]09-24-2024 History of Present illness Narrative* Crissy Mai - 12/12/2023 9:30 AM EDT Alex Carpenter 1935 12/12/2023 HISTORY OF PRESENT ILLNESS: Alex Carpenter is a 87 year old male diagnosed with prostate cancer in 1998, status post radical prostatectomy for Letona score 6 = 3+3. He had been [...] mg by mouth once daily. GLUCOSAM/MSM/CHONDR/VIT C/HYAL (OZUBNRHBJFD-SMMHWNSSQVS-RFI ORAL) Take 1 tablet by mouth two [...] daily. (Patient not taking:Reported on 07/11/2022) Fish Oil-Denton-3 Fatty Acids 500-300 mg ORAL Cap Take [...] with current findings. RTC with bre Mai APRN.JAVA ENTERPRISE ARCHITECT I spent a total of 30 minutes on the date of the service which included preparing to see the patient, hzdk-rv-ubun patient care, completing clinical documentation, performing a [...] evaluation of this patient. documented in this encounterTrinity Health System09-24-2024 NoteHNO ID: [id number] Author: CRISSY MAI, ? Service: ? Author [...] mg by mouth once daily. GLUCOSAM/MSM/CHONDR/VIT C/HYAL (TJCFCFAINPV-HOVEJZIZAVN-TQZ ORAL) Take 1 tablet by mouth two [...] (Patient not taking: Reported on 07/11/2022) Fish Oil-Denton-3 Fatty Acids 500-300 mg ORAL Cap Take one(1) tablet daily. Lab Results Component Value Date PSA 0.15 09/19/2023 PSA 0.17 06/27/2023 PSA 0.21 04/03/2023 PSA 0.21 01/12/2023 PSA 0.50 11/09/2022 PSA 0.47 10/20/2022 PSA 0.04 07/18/2022 PSA 0.07 04/25/2022 PSA 0.19 01/07/2022 PSA 204.80 (H) 10/08/2021 REVIEW OF SYSTEMS: GENERAL: No fever, night sweats, weight loss or ma (more content not included)...[facility]07-02-2024 History of Present illness Narrative* Everett [...] mg by mouth once daily. GLUCOSAM/MSM/CHONDR/VIT C/HYAL (IYKWCHWPIMA-IOUKFKWUXHT-GLR ORAL) Take 1 tablet by mouth two [...] daily. (Patient not taking:Reported on 07/11/2022) Fish Oil-Denton-3 Fatty Acids 500-300 mg ORAL Cap Take [...] which included preparing to see the patient, miyr-qm-ozgg patient care, completing clinical documentation, obtaining and/or reviewing separately obtained history, ordering medications, tests, or procedures, independently interpreting results (not separately reported), and communicating results to the patient/family/caregiver. Electronically Signed: Everett Aldrich MD September 19, 2023 documented in this encounterTrinity Health System04-12-2024 Miscellaneous Notes* Telephone Encounter - Trina Murray LPN - 06/30/2023 3:31 PM EDT Returned call to pt. Offered to mail results. Gave him Branch2 desk phone number as he is having issues logging in with his password. Trina Murray LPN * Telephone Encounter - Kelli Terry - 06/30/2023 3:13 PM EDT Patient called asking that we send his 06/26 lab results to his email. He states he has a hard time finding things in My Chart. documented in this encounterTrinity Health System04-09-2024 History of Present illness Narrative* Everett Aldrich [...] in 1998, status post radical prostatectomy for Letona score 6 = 3+3. He had been [...] Started back on androgen deprivation therapy with Elishellyd in September 2021, due to PSA 246. [...] mg by mouth once daily. GLUCOSAM/MSM/CHONDR/VIT C/HYAL (HGRQCSNYCMW-OQYBKFKBYXR-CWX ORAL) Take 1 tablet by mouth once daily. nitroglycerin sublingual 0.3 mg SL tablet Dissolve 0.3 mg under the tongue every 5 minutes as needed. Calcium Carbonate-Vitamin D3 600mg (1,000mg) -1,000 unit ORAL Tab Take 1 tablet by mouth once daily. Fish Oil-Denton-3 Fatty Acids 500-300 mg ORAL Cap Take [...] which included preparing to see the patient, lhfp-zw-wqfu patient care, completing clinical documentation, obtaining and/or reviewing separately obtained history, ordering medications, tests, or procedures, independently interpreting results (not separately reported), and communicating results to the patient/family/caregiver. Electronically Signed: Everett Aldrich MD June 27, 2023 documented in this encounterTrinity Health System03-21-2024 Miscellaneous Notes* Telephone Encounter - Stephanie Balderas - 06/08/2023 4:29 PM EDT Patient returned call and scheduled with Pranav Tate. Stephanie Balderas * Telephone Encounter - Mireya Espinosa - 06/07/2023 2:49 PM EDT Called patient and left a vm to return our phone call. [employer] Media[employer] message sent Mireya Francisca * Telephone Encounter - Irene Florentino RN - 06/07/2023 2:43 PM EDT PSS: please call patient to schedule follow up with Urology in [place]. Last seen Pranav Tate 2021. Marni Florentino RN * Telephone Encounter - Irene Florentino RN - 06/07/2023 2:[address] Aldrich ok with providing more Oxybutynin. Patient need to make a follow up with Urology. Call to patient, no answer. Message left that a Rx has been sent and the need for f/u with Urology. Marni Florentino, MELINDA * Telephone Encounter - Irene Florentino RN [...] on his mobile phone when able at [phone] Thank you, Shannon Davenport documented in this encounterTrinity Health System01-02-2024 Discharge summary Author Otto Shirley [facility] March 21, 2023 10:21am Note Date/Time March 21, 2023 10 :21am [facility] [address] [place] [address] [address] [place] [address] / REHABILITATION SERVICES DISCHARGE SUMMARY MR#: [id number] Acct: [id number] Name: ALEX CARPENTER Rep #: [id number] : 1935 87 From: Otto Shirley DPT, OCS, CSCS Referring Dr.: Dr. Otto Subramanian MD Status: REG RCR Insurance: [employer] [facility] SELF PAY INSURANCE Discharge Summary [...] please feel free to call me at [phone]. Thank you for the referral of thispatient. Sincerely, Otto Shirley DPT, OCS, CSCS Balance/Gait/Functional tests Balance/Special Test Scores Functional Gait Assessment Score: 27 % Disability: 10.0000 CATSIB Score (Max score 120 seconds): 110 Lower Extremity Functional Score: 45 Improvement % Improvement: 80 <Electronically signed by Otto Shirley DPT, OCS, CSCS> 03/21/23 1021 CC: Dr. Otto Subramanian MD ~ EBG Signed [facility] Work Phone: 1(777) 656-971012-15-2023 Miscellaneous Notes* Telephone Encounter - Ileana Leiva - 03/03/2023 11:51 AM EST Pt scheduled as directed * Telephone Encounter - Margie Corbin RN - 03/03/2023 10:[address] Aldrich, please schedule next zometa out a month so he can get both his eligard and zometa on same day. documented in this encounterTrinity Health System11-13-2023 Miscellaneous Notes* Telephone Encounter - Kelli Terry [...] and advise. Kelli Davenport documented in this encounterTrinity Health System10-20-2023 Miscellaneous Notes* Telephone Encounter - Stephanie Tavarez RN - 01/06/2023 8:26 AM EDT Per Baltazar, pt will not receive Zometa today due to kidney function. Spoke to and updated her. Reminded her of appt on 01/12. Appt canceled. documented in this encounterTrinity Health System08-04-2023 Miscellaneous Notes* Telephone Encounter - Leisa Woods LPN - 10/21/2022 12:31 PM EDT Left message on patient's VM. MyChart message sent. Leisa Woods LPN * Telephone Encounter - Leisa Woods LPN - 10/20/2022 5:02 PM EDT Noted. Leisa Woods LPN * Telephone Encounter - Kelli Terry - 10/20/2022 3:51 PM EDT Patient requesting a call when PSA results are completed documented in this encounterTrinity Health System08-03-2023 Miscellaneous Notes* Addendum Note - Everett Aldrich MD - 10/20/2022 10:00 AM EDTAddended by: EVERETT ALDRICH on: 10/20/2022 10:00 AM Modules accepted: Orders documented in this encounterTrinity Health System08-03-2023 Nurse Note* Trina Murray LPN - 10/20/2022 9:49 AM EDT Pt here for injection of Eligard. Given sq in LLQ. Pt tolerated well. For all other information regarding today, see today's OV note with Dr Aldrich. Trina Murray LPN documented in this encounterTrinity Health System08-03-2023 History of Present illness Narrative* Everett Aldrich [...] by mouth once daily.^Disp: ^Rfl: GLUCOSAM/MSM/CHONDR/VIT C/HYAL (ULUQECXHSLG-NARSOIDJZDR-BVY ORAL)^Take 1 tablet by mouth once daily.^Disp: ^Rfl: nitroglycerin sublingual 0.3 mg SL tablet^Dissolve 0.3 mg under the tongue every 5 minutes as needed.^Disp: ^Rfl: Calcium Carbonate-Vitamin D3 600mg (1,000mg) -1,000 unit ORAL Tab^Take 1 tablet by mouth once daily.^Disp: 30 tablet^Rfl: 6 Fish Oil-Denton-3 Fatty Acids 500-300 mg ORAL Cap^Take one(1) [...] which included preparing to see the patient, vijk-ep-sxpl patient care, completing clinical documentation, obtaining and/or reviewing separately obtained history, ordering medications, tests, or procedures, independently interpreting results (not separately reported), and communicating results to the patient/family/caregiver. Electronically Signed: Everett Aldrich MD October 20, 2022 9:21 AM documented in this encounterTrinity Health System07-26-2023 History of Present illness Narrative* Rose Mary [...] Rose Mary Sharp RN documented in this encounterTrinity Health System05-11-2023 Nurse Note* Gilda Back LPN - 07/28/2022 9:08 AM EDT Eligard injection administered, RLQ ,tolerated well, no immediate adverse reactions noted. See office notes Gilda Back LPN documented in this encounterTrinity Health System05-11-2023 History of Present illness Narrative* Bree Cornejo [...] visit. Bree Cornejo APRN.GIAN documented in this encounterTrinity Health System05-01-2023 Miscellaneous Notes* Telephone Encounter - Denilson Fernandes DO - 07/18/2022 9:59 AM EDT Orders filed. Denilson Fernandes DO * Telephone Encounter - Gilda Back LPN - 07/18/2022 9:55 AM EDT Pt. Here for labs, wrong orders are in, They are for [facility], please sign pended orders. Gilda Back LPN documented in this encounterTrinity Health System04-24-2023 History of Present illness Narrative* Denilson Fernandes [...] (98.1 F), weight 96.2 kg (212 lb), UqI354 %. Well-appearing and in no acute distress. EYES: Sclerae are anicteric bilaterally. LYMPHATIC: There is no palpable cervical or supraclavicular adenopathy. RESPIRATORY: Inspiratory breath sounds are of normal intensity in all mancini. CARDIOVASCULAR: Rhythm is regular. ABDOMEN: The abdomen is nondistended. Extremities: No swelling or edema. SKIN: No jaundice. NEUROLOGIC: glass bulb silverer II-XII are grossly intact. No focal motor [...] Lymph 1.00 - 4.00 k/uL 0.87 (L) [place]% % 8.5 Abs [place] <0.87 k/uL 0.76 E[place]% % 2.7 Abs [...] which included preparing to see the patient, fxcf-bd-adwm patient care, completing clinical documentation, obtaining and/or reviewing separately obtained history, performing a medically appropriate examination, counseling and educating the pat ient/family/caregiver, ordering medications, tests, or procedures, and communicating results to thepatient/family/caregiver. Denilson Fernandes DO Cc: Dr. Otto Subramanian documented in this encounterTrinity Health System04-12-2023 Miscellaneous Notes* Telephone Encounter - Hanna Levin [...] time. Marni Florentino RN documented in this encounterTrinity Health System04-10-2023 Miscellaneous Notes* Telephone Encounter - Hanna Levin [...] another update. Marni Florentino RN Disposition: per Fugitive Detective, patient directed to: Manage at home. Provided instructions and will call back. Irene Florentino RN * Telephone Encounter - Kelli Levine Pss - 06/24/2022 10:02 AM EDT Patient called requesting to speak to Marni regarding medication and dizziness. documented in this encounterTrinity Health System04-04-2023 Miscellaneous Notes* Telephone Encounter - Irene Florentino [...] from the original note were not included. [facility] Care Coordination FOLLOW-UP NOTE Patient identified by [...] RN June 21, 2022 documented in this encounterTrinity Health System02-16-2023 History of Present illness Narrative* Trina Murray LPN - 05/05/2022 12:03 PM EST Pt here for injection of Eligar. Given sq in RLQ. Pt tolerated well. Trina Murray LPN documented in this encounterTrinity Health System02-08-2023 Miscellaneous Notes* Telephone Encounter - Stephanie Balderas [...] patient at any time. documented in this encounterTrinity Health System02-06-2023 Discharge summary Author Otto Shirley [facility] April 25, 2022 8:15am Note Date/Time April 25, 2022 8 :15am [facility] Physical Therapy [facility] [address] [place] [address] / REHABILITATION SERVICES DISCHARGE SUMMARY MR#: [id number] Acct: [id number] Name: ALEX CARPENTER Rep #: [id number] : 1935 86 From: Otto Shirley DPT, DENISE, CSCS Referring Dr.: Dr. Otto Subramanian MD Status: REG RCR Insurance: [employer] [facility] SELF PAY INSURANCE ALEX CARPENTER was seen [...] Dr. Otto Subramanian MD ~ EBG Signed [facility] Work Phone: 1(425) 606-204001-18-2023 History of Present illness Narrative* Margie Bhakta [...] laboratory parameters, disease state markers and outcomes. Intermediate Frame Tender Assessment Patient confirmed: Yes Med/dose confirmed: Yes Supplies needed: No supplies needed Missed doses: No Estimated days supply on hand: 7 Copay amount: 0 Payment confirmed: Yes Delivery method: FedEx Signature required: No Delivery address: [address] [place] [address], [address] Delivery date: 04/08/22 Questions or concerns for the pharmacist?: No [facility] Assessment - Hematology/Oncology: Assessment [...] fracture risk. Margie Bhakta documented in this encounterTrinity Health System12-20-2022 History of Present illness Narrative* Yoana Casillas [...] laboratory parameters, disease state markers and outcomes. Intermediate Frame Tender Assessment Patient confirmed: Yes Med/dose confirmed: Yes Supplies needed: No supplies needed Missed doses: No Estimated days supply on hand: 8 Copay amount: 0 Payment confirmed: Yes Delivery method: FedEx Signature required: No Delivery address: [address] [place] [address] *leave between screen door* [place] [address] Delivery date: 03/16/22 Questions or concerns for the pharmacist?: No [facility] Visit Assessment - Hematology/Oncology: Assessment [...] fracture risk. Yoana Casillas documented in this encounterTrinity Health System12-20-2022 Miscellaneous Notes* Telephone Encounter - Aparna Becerra MD - 03/08/2022 7:49 AM EST Patient's request for medication is as follows Requested Prescriptions Signed Prescriptions Disp Refills apalutamide (ERLEADA) 60 mg tab 120 tablet 2 Sig: Take 4 tablets (240 mg) by mouth once daily. Authorizing Provider: APARNA BECERRA Order entered - please phone pharmacy and notify patient. Aparna Becerra MD documented in this encounterTrinity Health System11-18-2022 History of Present illness Narrative* Anabelle Choi (Private Branch Exchange Operator) - 02/04/2022 11:19 AM EST [facility] [...] outcomes. Robert Jensen, NunoD Clinical Pharmacist, Oncology [facility] P: ; F: Pool: P [facility] Pool #: [id number] Intermediate Frame Tender Assessment Patient confirmed: Yes Med/dose confirmed: Yes Supplies needed: No supplies needed Missed doses: No Estimated days supply on hand: 10 Copay amount: 0 Payment confirmed: No Delivery method: FedEx Signature required: No Delivery address: [address] *leave between screen door*,[place] [address] Delivery date: 02/09/22 [facility] Visit Assessment - Hematology/Oncology: Ivent [...] Yes Scheduled future appointments: Yes Anabelle Choi (Private Branch Exchange Operator) documented in this encounterTrinity Health System11-15-2022 History of Present illness Narrative* Pranav Tate PA-C - 02/01/2022 5:53 PM EST Images from the original note were not included. [facility] [place] CC: Prostate Cancer Follow-Up HPI: This is [...] by mouth once daily.^Disp: ^Rfl: GLUCOSAM/MSM/CHONDR/VIT C/HYAL (TFTRDITLPXX-OBRUYGKRCUT-GUV ORAL)^Take by mouth once daily.^Disp: ^Rfl: nitroglycerin sublingual 0.3 mg SL tablet^Dissolve 0.3 mg under the tongue every 5 minutes as needed.^Disp: ^Rfl: Calcium Carbonate-Vitamin D3 600mg (1,000mg) -1,000 unit ORAL Tab^Take 1 tablet by mouth once daily.^Disp: 30 tablet^Rfl: 6 Fish Oil-Denton-3 Fatty Acids 500-300 mg ORAL Cap^Take one(1) [...] ordered SHARRI Palacios, MADHU, RODRICK * Adela Ramos LPN - 02/01/2022 4:48 PM EST Verified name and date of . Patient has questions related to his care he would like to discuss with provider. documented in this encounterTrinity Health System11-09-2022 Miscellaneous Notes* Telephone Encounter - Adela Ramos [...] clarification. Adela Ramos LPN documented in this encounterTrinity Health System11-02-2022 Miscellaneous Notes* Telephone Encounter - Destinee Zhu - 01/19/2022 10:30 AM EDT Pt will keep appt with Urology first and discuss the need for oncology appt at that time. Destinee Zhu * Telephone Encounter - Kelli Davenport - 01/19/2022 10:18 AM EDT Patient asking if he needs to see Pranav Tate and Dr. Becerra for the same reasons. He called stating he is willing to if needed, however, states both providers are treating the same diagnosis. Pleasecall patient and advise. Okay to leave message. documented in this encounterTrinity Health System10-24-2022 Miscellaneous Notes* Telephone Encounter - Leisa Woods [...] any labs be faxed to them at [phone] documented in this encounterTrinity Health System09-20-2022 History of Present illness Narrative* Anabelle Choi (Private Branch Exchange Operator) - 12/07/2021 9:30 AM EDT [facility] [...] laboratory parameters, disease state markers and outcomes. Intermediate Frame Tender Assessment Patient confirmed: Yes Med/dose confirmed: Yes Supplies needed: No supplies needed Estimated days supply on hand: 10 Copay amount: 0 Payment confirmed: Yes Delivery method: FedEx Signature required: No Delivery address: [address] , [place] [address] Delivery date: 12/10/21 Questions or concerns for the pharmacist?: No [facility] Visit Assessment - Hematology/Oncology: Assessment [...] for fall and fracture risk. Anabelle Choi (Private Branch Exchange Operator) documented in this encounterTrinity Health System08-16-2022 Miscellaneous Notes* Telephone Encounter - Leisa Woods [...] Please advise the patient., documented in this encounterTrinity Health System08-08-2022 Miscellaneous Notes* Telephone Encounter - Irene Florentino [...] to call if unable to comply. Irene Florentino, RN documented in this encounterTrinity Health System08-05-2022 Miscellaneous Notes* Telephone Encounter - Brett Villegas [...] responsibility is $26.78 for each treatment in [facility] until oop max is reached. Reference #[id number]. Thereare no open foundations for Dx. Called patient, no answer, left vm documented in this encounterTrinity Health System07-27-2022 Miscellaneous Notes* Telephone Encounter - Trina Murray LPN - 10/13/2021 2:31 PM EDT Will fax this information to Dr Macario, his baby formula worker. Trina Murray LPN * Telephone Encounter - [...] because of interaction with APALUTAMIDE Ask his baby formula worker about stopping TICAGRELOR and continue with aspirin 81 mg once daily only. Prasugrel could be a reasonable substitute if he absolutely needs to be on both aspirin and ticagrelor. Aparna Becerra MD documented in this encounterTrinity Health System07-25-2022 Miscellaneous Notes* Telephone Encounter - Aparna Becerra [...] Becerra MD * Telephone Encounter - Trina Trevor BERMAN - 10/11/2021 8:20 AM EDT pt states [...] patient. Aparna Becerra MD documented in this encounterTrinity Health System07-22-2022 History of Present illness Narrative* Anabelle Choi ([employer]) - 10/08/2021 11:08 AM EDT [facility] received prescription(s) for Erleada from Dr. Becerra's office. Benefits investigation was conducted, indicating that a prior authorization is required by patient's insurance plan with [employer]/ [employer]. Encounter will be updated once prior authorization has been submitted by [facility]. Anabelle Choi CPHt documented in this encounterTrinity Health System07-22-2022 History and physical note * Aparna Becerra MD - 10/08/2021 10:12 AM EDT Hematology and Medical Oncology PATIENT NAME: Alex Carpenter. CLINIC NO: [id number]. ATTENDING PHYSICIAN: Aparna Becerra MD. DATE OF [...] mg by mouth twice daily. GLUCOSAM/MSM/CHONDR/VIT C/HYAL ([id number] ORAL) Take by mouth once daily. nitroglycerin sublingual 0.3 mg SL tablet Dissolve 0.3 mg under the tongue every 5 minutes as needed. Calcium Carbonate-Vitamin D3 600mg (1,000mg) -1,000 unit ORAL Tab Take 1 tablet by mouth once daily. Fish Oil-[place]-3 Fatty Acids 500-300 mg ORAL Cap Take [...] Lymph 1.00 - 4.00 k/uL 0.95 (L) [place]% % 7.5 Abs [place] <0.87 k/uL 0.57 Eosin% % 4.7 Abs [...] and agreed to proceed with therapy. Patient shipping assistant program was also discussed today. -Repeat CBC, CMP, PSA & vitamin D 25 office visit in 3 months I spent 60 minutes in the visit, with more than 50% of the total [id number] time of the visit in counseling / coordination of care. Aparna Becerra MD. ELECTRONICALLY SIGNED Cc: Dr. Otto Subramanian documented in this encounterTr[facility] System07-22-2022 Instructions* Patient Instructions* Aparna Becerra MD - 10/08/2021 9:45 AM EDT Information on Apalutamide for metastatic prostate cancer documented in this encounterTrinity Health System07-11-2022 Miscellaneous Notes* Telephone Encounter - Pranav Tate [...] 07/[address] Becerra - Medical Oncology [facility] SHARRI Palacios, [place], RODR[place] * Telephone Encounter - Anabelle Osborne RN - 09/27/2021 2:47 PM EDT Received call from Dr. Otto Subramanian's office. He would like to discuss results of body scan with Pranav indicating 3 areas of possible metastasis of prostate cancer. Please call to discuss at your soonest convenience. documented in this encounterTrinity Health System07-08-2022 History of Present illness Narrative* Adela Ramos [...] 07/05/2019 0.25 03/06/2019 33.08 03/04/2019 29.01 PSA [facility] ( lab) - 52 PSA [facility] (lab) 245 Physical Exam: General appearance: [...] Plan: Appointment with Pranav. documented in this encounterTrinity Health System07-07-2022 Miscellaneous Notes* Telephone Encounter - Adela Ramos LPN - 09/23/2021 9:43 AM EDT Called [facility]- not available. Left message requesting [...] results to urology office. documented in this encounterPacific [facility] ClinicEvaluation [facility]* Diagnosis Onset Date Resolution Status Bilateral carotid bruits acu te Nonrheumatic aortic (valve) stenosis acute Premature atrial contractions acute Atherosclerotic heart diseas e of [place] coronary artery without angina pectoris chronic Essential hypertension chron ic Hyperlipidemia chronic Presence of stent in coronary artery Jul, 2013 [facility] Work Phone: Evaluation note* Diagnosis Prostate cancer (HCC)- Primary Malignant neoplasm of prostate Elevated PSA Elevated prostate specific antigen (PSA) documented in this encounter [facility]* Diagnosis Malignant neoplasm of prostate (HCC)- Primary Malignant neoplasm of prostate documented [facility]* Diagnosis Malignant neoplasm of prostate (HCC)- Primary Malignant neoplasm of prostate 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 Osteopenia determined by x-ray documented in this encounter [facility]* Diagnosis Osteopenia determined by x-ray- Primary Vitamin D deficiency Unspecified vitamin D deficiency documented in this encounter [facility]* Diagnosis Bone metastases (HCC)- Primary [...] [facility] noteNo assessment information availableWAv[facility] Work Phone: Evaluation note* Diagnosis 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 Malignant neoplasm of prostate (HCC) Malignant neoplasm of prostate [facility] Diagnosis Malignant neoplasm of prostate (HCC)- Primary Malignant neoplasm of prostate documented in this [facility]* Diagnosis Bone metastases (HCC)- Primary [...] neoplasm of prostate documented in this encounter [facility]* Diagnosis 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 Malignant neoplasm of prostate (HCC) Malignant neoplasm of prostate documented in this [facility]* Diagnosis 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 [facility] Diagnosis 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 Malignant neoplasm of prostate (HCC) Malignant neoplasm of prostate documented in this encounter [facility]* Diagnosis Osteopenia determined by x-ray Vitamin D deficiency Unspecified vitamin D deficiency documented [facility] this [facility]* Diagnosis Onset Date Resolution Status Carotid artery disease acute Nonrheumatic aortic (valve) stenosis acute Premature atrial contractions acute Essential hypertension chron ic Hyperlipidemia chronic Presence of stent in coronary artery Jul, 2013 [facility] Work Phone: Evaluation note* Diagnosis 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 [facility] Diagnosis 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 Malignant neoplasm of prostate (HCC) Malignant neoplasm of prostate documented in this encounter [facility]* Diagnosis Malignant neoplasm of prostate (HCC)- Primary Malignant neoplasm of prostate 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 documented in this [facility]* Diagnosis OAB (overactive bladder)- Primary Hypertonicity of bladder Malignant neoplasm of prostate (HCC) Malignant neoplasm of prostate documented in this encounter [facility]* Diagnosis Malignant neoplasm of prostate (HCC)- Primary Malignant neoplasm of prostate 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 documented in this encounter [facility]* Diagnosis Loss of balance- Primary Other symptoms involving nervous and musculoskeletal systems Osteopenia determined by x-ray Vitamin D deficiency Unspecified vitamin D deficiency 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 documented in this encounter [facility]* Diagnosis Recurrent falls- Primary Personal [...] whether sciatica present documented in this encounter [facility]* Diagnosis Malignant neoplasm of prostate (HCC)- Primary Malignant neoplasm of prostate 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 documented in this encounter [facility]* Diagnosis Low back pain, unspecified back pain laterality, unspecified chronicity, unspecified whether sciatica present documented in this encounter [facility]* Diagnosis Other symptoms and signs involving the nervous system documented in this encounter [facility]* Diagnosis Recurrent falls- Primary Personal [...] stenosis, unspecified laterality documented in this encounter [facility]* Diagnosis Malignant neoplasm of prostate (HCC)- Primary Malignant neoplasm of prostate 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 documented in this encounter [facility]* Diagnosis Malignant neoplasm of prostate (HCC)- Primary Malignant neoplasm of prostate Loss of balance Other symptoms involving nervous and musculoskeletal systems documented in this encounter [facility] note* Diagnosis Malignant neoplasm of prostate (HCC)- Primary Malignant neoplasm of prostate [facility]* Diagnosis Severe aortic stenosis- Primary Aortic valve disorders documented in this encounter [facility] note* Diagnosis Severe aortic stenosis- Primary Aortic valve disorders Severe aortic stenosis Aortic valve disorders documented in this encounter [facility] note* Diagnosis Severe aortic stenosis- Primary Aortic valve disorders Severe aortic stenosis- Primary Aortic valve disorders Severe aortic stenosis Aortic valve disorders documented in this encounter [facility] note* Diagnosis Severe aortic stenosis- Primary Aortic valve disorders Severe aortic stenosis Aortic valve disorders documented in this encounter [facility] note* Diagnosis Severe aortic stenosis- Primary Aortic valve disorders documented in this encounter [facility] note* Diagnosis Primary hypertension- Primary Unspecified essential hypertension Hyperlipidemia, unspecified hyperlipidemia type S/P aortic valve replacement with bioprosthetic valve Coronary artery disease involving [place] coronary artery of [place] heart without angina pectoris [facility] Additional Instructions Your labs, EKG [...] an MRI of your lumbar and/or thoracic spineWAv[facility] Work Phone: Hospital Discharge instructions Additional Instructions ICE 20 min on, 20 min off. Continue stretching, follow up with physical therapy if needed.[facility] Work Phone: Progress note Author Freddie Lee [facility] Note Date/Time September 29, 2024 9:47 am [facility] [place] [address] OFFICE VISIT Date of Service: 09/29/24 MR#: [id number] Acct: [id number] Patient: ALEX CARPENTER Rep #: [id number] : 1935 Provider: MARIE Cary Age/Sex: 89/M Location: [facility] Status: Signed Intake Vital Signs 09/26/24 08:11 [...] SWOLLEN L ANKLE/FOOT Chief Complaint: LLE swelling/redness 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 BLE edema noted, redness to LLE,no drainage noted. pt is a [facility] pt, does not use support hose, takes diuretic prn and has only taken three times since getting RX. [facility] Medical History Bilateral carotid bruits Nonrheumatic aortic (valve) stenosis Essential hypertension SHAMAR (obstructive sleep apnea) Old myocardial infarction Diastolic dysfunction Premature atrial contractions Cardiac murmur Hyperlipidemia Hypertension Atherosclerotic heart disease of [place] coronary artery without angina pectoris Surgical History [...] signed by Freddie Story> Date _ Freddie SALAZAR Cosigner Signature: Date (if applicable) CC: ~ [facility] Work Phone: Reason for referral (narrative)No reason for referral information availableWAvita [facility] Work Phone: Reason for visit Narrative* MRI/CT (Routine) - Closed Specialty Diagnoses / Procedures [facility] To Contact MR IMAGING Diagnoses Low back pain, unspecified back pain laterality, unspecified chronicity, unspecified whether sciatica present Procedures MRI LUMBAR SPINE WO/W IVCON MRI SPINAL CANAL LUMBAR W/O & W/CONTR MATRL Kaushal Stockton Jr., MD [address] [place] [address] Phone: tel: fax: MR IMAGING [facility] Referral ID Status Reason Start Date Expiration Date V isits Requested Visits Authorized [id number] Closed Auto-Generate d Referral 05/24/2024 06/23/2025 1 1 [facility] for visit Narrative* MRI/CT (Routine) - Closed Specialty Diagnoses / Procedures [facility] Referred To Contact MR IMAGING Diagnoses Other symptoms and signs involving the nervous system Procedures MRI BRAIN WO/W IVCON MRI BRAIN BRAIN STEM W/O W/CONTRAST MATERIAL Kaushal Stockton Jr., MD [address] [place] [address] Phone: tel: fax: MR IMAGING [facility] Referral ID Status Reason Start Date Expiration Date V isits Requested Visits Authorized [id number] Closed Auto-Generate d Referral 05/24/2024 06/23/2025 1 1 [facility] for visit Narrative* Imaging (Routine) - Closed Specialty Diagnoses / Procedures [facility] Referred To Contact Radiology Diagnoses Severe aortic stenosis Procedures CTA Angiogram TAVR Lashell Salas MD [address] [place] [id number] Phone: tel: fax: Referral ID Status Reason Start Date Expiration Date Visits Re quested Visits Authorized [id number] Closed 11/26/2024 11/26/2025 1 1 [facility] for visit Narrative* Auth/Cert (Routine) Specialty Diagnoses / Procedures [facility] Referred To Contact Diagnoses Severe aortic stenosis Procedures FL REPLACE AORTIC VALVE PERQ FEMORAL ARTRY APPROACH TRANSCATHETER AORTIC VALVE REPLACEMENT, TRANSTHORACIC ECHOCARDIOGRAM TRANSCATHETER AORTIC VALVE REPLACEMENT, TRANSTHORACIC ECHOCARDIOGRAM Lashell Salas MD [address] [place], [place] [id number] Phone: tel: fax: Referral ID Status Reason Start Date Expiration Date Visits Re quested Visits Authorized [id number] 11/26/2024 1 1 [facility] Chief Complaint and Reason for Visit Chief Complaint 6 M FU PAIN Reason for Visit Bilateral carotid br uits Nonrheumatic aortic (valve) stenosis Premature atrial contractions Atherosclerotic heart disease of [place] coronary artery without angina pectoris Essential hypertension Hyperlipidemia Presence of stent in coronary artery Chief Complaint 6 M FU PAIN left sided chest pain INCREASING PAIN, WEAKNESS Reason for Visit Bilateral carotid br uits Nonrheumatic aortic (valve) stenosis Premature atrial contractions Atherosclerotic heart disease of [place] coronary artery without angina pectoris Essential hypertension [...] 2024 11:10am Atherosclerotic heart diseas e of [place] coronary artery without angina pectoris January 10, 2025 11:10am Essential hypertension January 10 11:10am Hyperlipidemia January 10, 2025 1 1:10am S/P TAVR (transcatheter aortic valve rep lacement) January 10, 2025 11:10am Advance Directives No Advanced Directives Records Found Advance Directive Response Recorded Date/ Time Living Will Yes August 16, 2021 1 0:09am Power of Luster Applicator Yes August 16, 2021 10:09am Advance Directive Response Recorded Date/ Time Name of Medical Power of Luster Applicator August 16, 2021 10:09am Name of Medical Power of Luster Applicator August 31, 2021 4:12am Living Will Yes August 31, 2021 4:12am Power of Luster Applicator Yes August 31 4:12am Advance Directive Response Recorded Date/ Time Living Will Yes August 31, 2021 3:12am Power of Luster Applicator Yes August 31 3:12am Advance Directive Response Recorded Date/ Time Name of Medical Power of Luster Applicator Kimber Carpenter June 21, 2022 11:55pm Living Will Yes June 21, 2022 11:55pm Power of Luster Applicator Yes June 21 11:55pm Advance Directive Response Recorded Date/ Time Living Will Yes June 21, 2022 11:55pm Power of Luster Applicator Yes June 21 11:55pm Name of Medical Power of Luster Applicator Kimber Carpenter June 21, 2022 11:55pm Advance Directive Response Recorded Date/ Time Name of Medical Power of Luster Applicator Kimber Carpenter June 21, 2022 11:55pm Name of Medical Power of Luster Applicator KIMBER CARPENTER October 15, 2022 10:29am Living Will No October 15, 2022 10:29am Power of Luster Applicator Yes October 15 10:29am Advance Directive Response Recorded Date/ Time Name of Medical Power of Luster Applicator Kimber Carpenter June 21, 2022 11:55pm Name of Medical Power of Luster Applicator KIMBER CARPENTER October 15, 2022 10:29am Name of Medical Power of Luster Applicator kimber carpenter October 17, 2022 12:23pm Living Will No October 17, 2022 12:23pm Power of Luster Applicator Yes October 17 12:23pm Advance Directive Response Recorded Date/ Time Living Will No October 17, 2022 11:23am Power of Luster Applicator Yes October 17 11:23am Advance Directive Response Recorded Date/ Time Living Will No October 17, 2022 12:23pm Power of Luster Applicator Yes October 17 12:23pm Advance Directive Response Recorded Date/ Time Living Will No October 17, 2022 12:23pm Do you have a Healthcare Power of Luster Applicator? Yes October 17, 2022 12:23pm Advance Directive Response Recorded Date/ Time Living Will No October 17, 2022 12:23pm Do you have a Healthcare Power of Luster Applicator? Yes October 17, 2022 12:23pm Advance Directives on File Yes October 07, 2024 7:22am Living Will Yes October 07, 2024 7:22am Do you have a Healthcare Power of Luster Applicator? Yes October 07, 2024 7:22am Name of Medical Power of Luster Applicator Kimber Pulido fe October 07, 2024 7:22am Advance Directives Yes October 07 7:22am Advance Directive Response Recorded Date/ Time Advance Directives on File Yes October 07, 2024 7:22am Living Will Yes October 07, 2024 7:22am Do you have a Healthcare Power of Luster Applicator? Yes October 07, 2024 7:22am Name of Medical Power of Luster Applicator Kimber medrano October 07, 2024 7:22am Advance Directives Yes October 07 7:22am Do you have a Healthcare Power of Luster Applicator? Yes October 31, 2024 3:44pm Name of Medical Power of Luster Applicator kimber October 31, 2024 3:44pm Date Activated [...] to 3 most recent administrations Medication Order [facility] Dose Rate Site zoledronic acid 3.5 mg in NaCl 0.9% 100 mL (ZOMETA) 3.5 mg, INTRAVENOUS, Administer over 15 Minutes, ONCE, 1 dose, On Mon04/25/22 at 1500, Hazardous Potential Reproductive Risk Drug: Use appropriate PPE. Refrigerate. New Bag/Syringe/Bottle 04/25/2022 3:00 PM EST 3.5 mg Inactive Administered Medications - up to 3 most recent administrations Medication Order [facility] Dose Rate Site leuprolide 22.5 mg subcutaneous syringe (ELIGARD) 22.5 mg, SUBCUTANEOUS, ONCE, 1 dose, On Michelle 05/05/22 at 1100, Hazardous Chemotherapy Drug: Use appropriate PPE. Given 05/05/2022 11:07 AM EST 22.5 mg Abdomen, RLQ Inactive Administered Medications - up to 3 most recent administrations Medication Order [facility] Dose Rate Site acetaminophen 650 mg tab(s) [...] to 3 most recent administrations Medication Order [facility] Dose Rate Site zoledronic acid 3.5 mg [...] W/O W/CONTRAST MATERIAL Hanna Levin MD [address] [place] [address] Mr Imaging Referral ID Status Reason Start Date Expiration Date Visits Requested Visits Authorized [id number] Pending Review Auto-Generat ed Referral 06/21/2022 07/21/2023 1 1 Specialty Diagnoses / Procedures Referred By Zack alexander Referred To Contact Neurology Diagnoses Loss of balance Procedures CONSULT TO NEUROLOGY OFFICE/OUTPATIENT [facility] [address] [place] [address] [place] [address] Referral ID Status Reason Start Date Expiration Date Visits Requested Visits Authorized [id number] Authorized PCP Requested Referral 03/05/2025 1 1 [...] or prosecute any alcohol or drug abuse patient.[facility] SystemIn the event this information is protected by the Federal Confidentiality of Alcohol and Drug Abuse Patient Records regulations: The Federal rules restrict any use of the information to criminally investigate or prosecute any alcohol or drug abuse patient.[facility] SystemIn the event this information is protected by the Federal Confidentiality of Alcohol and Drug Abuse Patient Records regulations: The Federal rules restrict any use of the information to criminally investigate or prosecute any alcohol or drug abuse patient.[facility] SystemIn the event this information is protected by the Federal Confidentiality of Alcohol and Drug Abuse Patient Records regulations: The Federal rules restrict any use of the information to criminally investigate or prosecute any alcohol or drug abuse patient.[facility] SystemIn the event this information is protected by the Federal Confidentiality of Alcohol and Drug Abuse Patient Records regulations: The Federal rules restrict any use of the information to criminally investigate or prosecute any alcohol or drug abuse patient.[facility] SystemIn the event this information is protected by the Federal Confidentiality of Alcohol and Drug Abuse Patient Records regulations: The Federal rules restrict any use of the information to criminally investigate or prosecute any alcohol or drug abuse patient.[facility] SystemIn the event this information is protected by the Federal Confidentiality of Alcohol and Drug Abuse Patient Records regulations: The Federal rules restrict any use of the information to criminally investigate or prosecute any alcohol or drug abuse patient.[facility] SystemIn the event this information is protected by the Federal Confidentiality of Alcohol and Drug Abuse Patient Records regulations: The Federal rules restrict any use of the information to criminally investigate or prosecute any alcohol or drug abuse patient.[facility] SystemIn the event this information is protected by the Federal Confidentiality of Alcohol and Drug Abuse Patient Records regulations: The Federal rules restrict any use of the information to criminally investigate or prosecute any alcohol or drug abuse patient.[facility] SystemIn the event this information is protected by the Federal Confidentiality of Alcohol and Drug Abuse Patient Records regulations: The Federal rules restrict any use of the information to criminally investigate or prosecute any alcohol or drug abuse patient.[facility] SystemIn the event this information is protected by the Federal Confidentiality of Alcohol and Drug Abuse Patient Records regulations: The Federal rules restrict any use of the information to criminally investigate or prosecute any alcohol or drug abuse patient.[facility] SystemIn the event this information is protected by the Federal Confidentiality of Alcohol and Drug Abuse Patient Records regulations: The Federal rules restrict any use of the information to criminally investigate or prosecute any alcohol or drug abuse patient.[facility] SystemIn the event this information is protected by the Federal Confidentiality of Alcohol and Drug Abuse Patient Records regulations: The Federal rules restrict any use of the information to criminally investigate or prosecute any alcohol or drug abuse patient.[facility] SystemIn the event this information is protected by the Federal Confidentiality of Alcohol and Drug Abuse Patient Records regulations: The Federal rules restrict any use of the information to criminally investigate or prosecute any alcohol or drug abuse patient.[facility] SystemIn the event this information is protected by the Federal Confidentiality of Alcohol and Drug Abuse Patient Records regulations: The Federal rules restrict any use of the information to criminally investigate or prosecute any alcohol or drug abuse patient.[facility] SystemIn the event this information is protected by the Federal Confidentiality of Alcohol and Drug Abuse Patient Records regulations: The Federal rules restrict any use of the information to criminally investigate or prosecute any alcohol or drug abuse patient.[facility] SystemIn the event this information is protected by the Federal Confidentiality of Alcohol and Drug Abuse Patient Records regulations: The Federal rules restrict any use of the information to criminally investigate or prosecute any alcohol or drug abuse patient.[facility] SystemIn the event this information is protected by the Federal Confidentiality of Alcohol and Drug Abuse Patient Records regulations: The Federal rules restrict any use of the information to criminally investigate or prosecute any alcohol or drug abuse patient.[facility] SystemIn the event this information is protected by the Federal Confidentiality of Alcohol and Drug Abuse Patient Records regulations: The Federal rules restrict any use of the information to criminally investigate or prosecute any alcohol or drug abuse patient.[facility] SystemIn the event this information is protected by the Federal Confidentiality of Alcohol and Drug Abuse Patient Records regulations: The Federal rules restrict any use of the information to criminally investigate or prosecute any alcohol or drug abuse patient.[facility] SystemIn the event this information is protected by the Federal Confidentiality of Alcohol and Drug Abuse Patient Records regulations: The Federal rules restrict any use of the information to criminally investigate or prosecute any alcohol or drug abuse patient.[facility] SystemIn the event this information is protected by the Federal Confidentiality of Alcohol and Drug Abuse Patient Records regulations: The Federal rules restrict any use of the information to criminally investigate or prosecute any alcohol or drug abuse patient.[facility] SystemIn the event this information is protected by the Federal Confidentiality of Alcohol and Drug Abuse Patient Records regulations: The Federal rules restrict any use of the information to criminally investigate or prosecute any alcohol or drug abuse patient.[facility] SystemIn the event this information is protected by the Federal Confidentiality of Alcohol and Drug Abuse Patient Records regulations: The Federal rules restrict any use of the information to criminally investigate or prosecute any alcohol or drug abuse patient.[facility] SystemIn the event this information is protected by the Federal Confidentiality of Alcohol and Drug Abuse Patient Records regulations: The Federal rules restrict any use of the information to criminally investigate or prosecute any alcohol or drug abuse patient.[facility] SystemIn the event this information is protected by the Federal Confidentiality of Alcohol and Drug Abuse Patient Records regulations: The Federal rules restrict any use of the information to criminally investigate or prosecute any alcohol or drug abuse patient.[facility] SystemIn the event this information is protected by the Federal Confidentiality of Alcohol and Drug Abuse Patient Records regulations: The Federal rules restrict any use of the information to criminally investigate or prosecute any alcohol or drug abuse patient.[facility] SystemIn the event this information is protected by the Federal Confidentiality of Alcohol and Drug Abuse Patient Records regulations: The Federal rules restrict any use of the information to criminally investigate or prosecute any alcohol or drug abuse patient.[facility] SystemIn the event this information is protected by the Federal Confidentiality of Alcohol and Drug Abuse Patient Records regulations: The Federal rules restrict any use of the information to criminally investigate or prosecute any alcohol or drug abuse patient.[facility] SystemIn the event this information is protected by the Federal Confidentiality of Alcohol and Drug Abuse Patient Records regulations: The Federal rules restrict any use of the information to criminally investigate or prosecute any alcohol or drug abuse patient.[facility] SystemIn the event this information is protected by the Federal Confidentiality of Alcohol and Drug Abuse Patient Records regulations: The Federal rules restrict any use of the information to criminally investigate or prosecute any alcohol or drug abuse patient.[facility] SystemIn the event this information is protected by the Federal Confidentiality of Alcohol and Drug Abuse Patient Records regulations: The Federal rules restrict any use of the information to criminally investigate or prosecute any alcohol or drug abuse patient.[facility] SystemIn the event this information is protected by the Federal Confidentiality of Alcohol and Drug Abuse Patient Records regulations: The Federal rules restrict any use of the information to criminally investigate or prosecute any alcohol or drug abuse patient.[facility] SystemIn the event this information is protected by the Federal Confidentiality of Alcohol and Drug Abuse Patient Records regulations: The Federal rules restrict any use of the information to criminally investigate or prosecute any alcohol or drug abuse patient.[facility] SystemIn the event this information is protected by the Federal Confidentiality of Alcohol and Drug Abuse Patient Records regulations: The Federal rules restrict any use of the information to criminally investigate or prosecute any alcohol or drug abuse patient.[facility] SystemIn the event this information is protected by the Federal Confidentiality of Alcohol and Drug Abuse Patient Records regulations: The Federal rules restrict any use of the information to criminally investigate or prosecute any alcohol or drug abuse patient.[facility] SystemIn the event this information is protected by the Federal Confidentiality of Alcohol and Drug Abuse Patient Records regulations: The Federal rules restrict any use of the information to criminally investigate or prosecute any alcohol or drug abuse patient.[facility] SystemIn the event this information is protected by the Federal Confidentiality of Alcohol and Drug Abuse Patient Records regulations: The Federal rules restrict any use of the information to criminally investigate or prosecute any alcohol or drug abuse patient.[facility] SystemIn the event this information is protected by the Federal Confidentiality of Alcohol and Drug Abuse Patient Records regulations: The Federal rules restrict any use of the information to criminally investigate or prosecute any alcohol or drug abuse patient.[facility] SystemIn the event this information is protected by the Federal Confidentiality of Alcohol and Drug Abuse Patient Records regulations: The Federal rules restrict any use of the information to criminally investigate or prosecute any alcohol or drug abuse patient.[facility] SystemIn the event this information is protected by the Federal Confidentiality of Alcohol and Drug Abuse Patient Records regulations: The Federal rules restrict any use of the information to criminally investigate or prosecute any alcohol or drug abuse patient.[facility] SystemIn the event this information is protected by the Federal Confidentiality of Alcohol and Drug Abuse Patient Records regulations: The Federal rules restrict any use of the information to criminally investigate or prosecute any alcohol or drug abuse patient.[facility] SystemIn the event this information is protected by the Federal Confidentiality of Alcohol and Drug Abuse Patient Records regulations: The Federal rules restrict any use of the information to criminally investigate or prosecute any alcohol or drug abuse patient.[facility] SystemIn the event this information is protected by the Federal Confidentiality of Alcohol and Drug Abuse Patient Records regulations: The Federal rules restrict any use of the information to criminally investigate or prosecute any alcohol or drug abuse patient.[facility] SystemIn the event this information is protected by the Federal Confidentiality of Alcohol and Drug Abuse Patient Records regulations: The Federal rules restrict any use of the information to criminally investigate or prosecute any alcohol or drug abuse patient.[facility] SystemIn the event this information is protected by the Federal Confidentiality of Alcohol and Drug Abuse Patient Records regulations: The Federal rules restrict any use of the information to criminally investigate or prosecute any alcohol or drug abuse patient.[facility] SystemIn the event this information is protected by the Federal Confidentiality of Alcohol and Drug Abuse Patient Records regulations: The Federal rules restrict any use of the information to criminally investigate or prosecute any alcohol or drug abuse patient.[facility] SystemIn the event this information is protected by the Federal Confidentiality of Alcohol and Drug Abuse Patient Records regulations: The Federal rules restrict any use of the information to criminally investigate or prosecute any alcohol or drug abuse patient.[facility] SystemIn the event this information is protected by the Federal Confidentiality of Alcohol and Drug Abuse Patient Records regulations: The Federal rules restrict any use of the information to criminally investigate or prosecute any alcohol or drug abuse patient.[facility] SystemIn the event this information is protected by the Federal Confidentiality of Alcohol and Drug Abuse Patient Records regulations: The Federal rules restrict any use of the information to criminally investigate or prosecute any alcohol or drug abuse patient.[facility] SystemIn the event this information is protected by the Federal Confidentiality of Alcohol and Drug Abuse Patient Records regulations: The Federal rules restrict any use of the information to criminally investigate or prosecute any alcohol or drug abuse patient.[facility] SystemIn the event this information is protected by the Federal Confidentiality of Alcohol and Drug Abuse Patient Records regulations: The Federal rules restrict any use of the information to criminally investigate or prosecute any alcohol or drug abuse patient.[facility] SystemIn the event this information is protected by the Federal Confidentiality of Alcohol and Drug Abuse Patient Records regulations: The Federal rules restrict any use of the information to criminally investigate or prosecute any alcohol or drug abuse patient.[facility] SystemIn the event this information is protected by the Federal Confidentiality of Alcohol and Drug Abuse Patient Records regulations: The Federal rules restrict any use of the information to criminally investigate or prosecute any alcohol or drug abuse patient.[facility] SystemIn the event this information is protected by the Federal Confidentiality of Alcohol and Drug Abuse Patient Records regulations: The Federal rules restrict any use of the information to criminally investigate or prosecute any alcohol or drug abuse patient.[facility] SystemIn the event this information is protected by the Federal Confidentiality of Alcohol and Drug Abuse Patient Records regulations: The Federal rules restrict any use of the information to criminally investigate or prosecute any alcohol or drug abuse patient.[facility] SystemIn the event this information is protected by the Federal Confidentiality of Alcohol and Drug Abuse Patient Records regulations: The Federal rules restrict any use of the information to criminally investigate or prosecute any alcohol or drug abuse patient.[facility] SystemIn the event this information is protected by the Federal Confidentiality of Alcohol and Drug Abuse Patient Records regulations: The Federal rules restrict any use of the information to criminally investigate or prosecute any alcohol or drug abuse patient.[facility] SystemIn the event this information is protected by the Federal Confidentiality of Alcohol and Drug Abuse Patient Records regulations: The Federal rules restrict any use of the information to criminally investigate or prosecute any alcohol or drug abuse patient.[facility] SystemIn the event this information is protected by the Federal Confidentiality of Alcohol and Drug Abuse Patient Records regulations: The Federal rules restrict any use of the information to criminally investigate or prosecute any alcohol or drug abuse patient.[facility] SystemIn the event this information is protected by the Federal Confidentiality of Alcohol and Drug Abuse Patient Records regulations: The Federal rules restrict any use of the information to criminally investigate or prosecute any alcohol or drug abuse patient.[facility] SystemIn the event this information is protected by the Federal Confidentiality of Alcohol and Drug Abuse Patient Records regulations: The Federal rules restrict any use of the information to criminally investigate or prosecute any alcohol or drug abuse patient.[facility] SystemIn the event this information is protected by the Federal Confidentiality of Alcohol and Drug Abuse Patient Records regulations: The Federal rules restrict any use of the information to criminally investigate or prosecute any alcohol or drug abuse patient.[facility] SystemIn the event this information is protected by the Federal Confidentiality of Alcohol and Drug Abuse Patient Records regulations: The Federal rules restrict any use of the information to criminally investigate or prosecute any alcohol or drug abuse patient.[facility] SystemIn the event this information is protected by the Federal Confidentiality of Alcohol and Drug Abuse Patient Records regulations: The Federal rules restrict any use of the information to criminally investigate or prosecute any alcohol or drug abuse patient.[facility] SystemIn the event this information is protected by the Federal Confidentiality of Alcohol and Drug Abuse Patient Records regulations: The Federal rules restrict any use of the information to criminally investigate or prosecute any alcohol or drug abuse patient.[facility] SystemIn the event this information is protected by the Federal Confidentiality of Alcohol and Drug Abuse Patient Records regulations: The Federal rules restrict any use of the information to criminally investigate or prosecute any alcohol or drug abuse patient.[facility] SystemIn the event this information is protected by the Federal Confidentiality of Alcohol and Drug Abuse Patient Records regulations: The Federal rules restrict any use of the information to criminally investigate or prosecute any alcohol or drug abuse patient.[facility] SystemIn the event this information is protected by the Federal Confidentiality of Alcohol and Drug Abuse Patient Records regulations: The Federal rules restrict any use of the information to criminally investigate or prosecute any alcohol or drug abuse patient.[facility] SystemIn the event this information is protected by the Federal Confidentiality of Alcohol and Drug Abuse Patient Records regulations: The Federal rules restrict any use of the information to criminally investigate or prosecute any alcohol or drug abuse patient.[facility] SystemIn the event this information is protected by the Federal Confidentiality of Alcohol and Drug Abuse Patient Records regulations: The Federal rules restrict any use of the information to criminally investigate or prosecute any alcohol or drug abuse patient.[facility] SystemIn the event this information is protected by the Federal Confidentiality of Alcohol and Drug Abuse Patient Records regulations: The Federal rules restrict any use of the information to criminally investigate or prosecute any alcohol or drug abuse patient.[facility] SystemIn the event this information is protected by the Federal Confidentiality of Alcohol and Drug Abuse Patient Records regulations: The Federal rules restrict any use of the information to criminally investigate or prosecute any alcohol or drug abuse patient.[facility] SystemIn the event this information is protected by the Federal Confidentiality of Alcohol and Drug Abuse Patient Records regulations: The Federal rules restrict any use of the information to criminally investigate or prosecute any alcohol or drug abuse patient.[facility] SystemIn the event this information is protected by the Federal Confidentiality of Alcohol and Drug Abuse Patient Records regulations: The Federal rules restrict any use of the information to criminally investigate or prosecute any alcohol or drug abuse patient.[facility] Reason for Visit (unrecogniz ed section and content) Reason Comments Established Patient Specialty Diagnoses / Procedures Referred By Zack t Referred To Contact Diagnoses Malignant neoplasm of prostate (HCC) Bone metastases Procedures LEUPROLIDE ACETATE SUSPNSION Bree Cornejo APRN.JAVA ENTERPRISE ARCHITECT [address] [place] [address] [facility] [address] [place] [address] Referral ID Status Reason Start Date Expiration Date V isits Requested Visits Authorized [id number] Authorized 04/27/2022 06/21/2024 99 99 Reason Comments [...] 1 MG Aparna Becerra MD [address] [place] [address] [facility] [address] [place] [address] Referral ID Status Reason Start Date Expiration Date V isits Requested Visits Authorized [id number] Authorized 10/08/2021 03/19/2022 99 99 Reason Comments [...] Expiration Date V isits Requested Visits Authorized [id number] Authorized 10/08/2021 03/19/2023 99 99 Reason Comments Results Reason Onset Date Comments SPP Oral Oncology/hematology - Medication Refill 04/28/2022 Erleada 60mg Reason Comments Imm/Inj Specialty Diagnoses / Procedures Referred By [facility] Referred To Contact Diagnoses Malignant neoplasm of prostate (HCC) Bone metastases (HCC) Procedures LEUPROLIDE ACETATE SUSPNSION Bree Cornejo, GUM SCORING MACHINE OPERATOR.JAVA ENTERPRISE ARCHITECT [address] [place] [address] [facility] [address] [place] [address] Referral ID Status Reason Start Date Expiration Date V isits Requested Visits Authorized [id number] Authorized 04/27/2022 10/26/2022 99 99 Specialty Diagnoses / Procedures Referred By [facility] Referred To Contact Diagnoses Malignant neoplasm of prostate (HCC) Bone metastases (HCC) Procedures INJECTION, ZOLEDRONIC ACID, 1 MG Bree Cornejo, GUM SCORING MACHINE OPERATOR.JAVA ENTERPRISE ARCHITECT [address] [place] [address] [facility] [address] [place] [address] Referral ID Status Reason Start Date Expiration Date V isits Requested Visits Authorized [id number] Authorized 04/27/2022 03/19/2023 99 99 Reason Onset Date Comments SPP Oral Oncology/hematology - Medication Refill 06/13/2022 Erleada Reason Comments Patient Update Symptoms Reason Comments Patient Update Weakness Reason Comments Care Coordination patient update-weakn ess Reason Comments Orders Specialty Diagnoses / Procedures Referred By [facility] Referred To Contact Diagnoses Malignant neoplasm of prostate (HCC) Bone metastases Procedures INJECTION, ZOLEDRONIC ACID, 1 MG Bree Cornejo, GUM SCORING MACHINE OPERATOR.JAVA ENTERPRISE ARCHITECT [address] [place] [address] [facility] [address] [place] [address] Referral ID Status Reason Start Date Expiration Date V isits Requested Visits Authorized [id number] Authorized 04/27/2022 04/25/2023 99 99 Reason Comments Appointment Reason Onset Date Comments Refill Request 01/30/2023 Reason Comments medication questions Referral ID Status Reason Start Date Expiration Date V isits Requested Visits Authorized [id number] Authorized 04/27/2022 03/19/2024 99 99 Reason Comments Prostate Cancer Follow Up Urinary Urgency Referral ID Status Reason Start Date Expiration Date V isits Requested Visits Authorized [id number] Authorized 04/27/2022 03/19/2025 99 99 Reason Comments 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 Reason Comments New Patient C/o loss of balance, weakness, falling, has done PT, pt states it's more of his knees that are weak Specialty Diagnoses / Procedures Referred By Contac t Referred To Contact Neurology Diagnoses Loss of balance Procedures CONSULT TO NEUROLOGY OFFICE/OUTPATIENT NEW HIGH MDM [address] [place] [address] [place] [address] Phone: tel: fax: Referral ID Status Reason Start Date Expiration Date V isits Requested Visits Authorized [id number] Closed PCP Requested Referral 03/05/2024 03/05/2025 1 1 Reason Comments Chemotherapy Treatment Specialty Diagnoses / Procedures Referred By Contac t Referred To Contact Diagnoses Malignant neoplasm of prostate (HCC) Bone metastases Procedures INJECTION, ZOLEDRONIC ACID, 1 MG Bree Cornejo APRN.JAVA ENTERPRISE ARCHITECT [address] [place] [address] Phone: tel: fax: Hematology/Oncology [address] [place] [address] Phone: tel: fax: Reason Comments New Patient Recurrent falls Referral ID Status Reason Start Date Expiration Date Visits Re quested Visits Authorized [id number] Closed 04/27/2022 03/19/2025 99 99 Specialty Diagnoses / Procedures Referred By Zack t Referred To Contact Diagnoses Malignant neoplasm 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) Malignant neoplasm of prostate (HCC) Procedures LEUPROLIDE ACETATE SUSPNSION Bree Cornejo APRN.JAVA ENTERPRISE ARCHITECT [address] [place] [address] Phone: tel: fax: Chantal Bree, GUM SCORING MACHINE OPERATOR.JAVA ENTERPRISE ARCHITECT [address] [place] [address] Phone: tel: fax: Referral ID Status Reason Start Date Expiration Date V isits Requested Visits Authorized [id number] Authorized 08/22/2024 07/24/2025 99 99 Reason Comments Cardiac Valve Problem New Patient [facility] Specialty Diagnoses / Procedures Referred By Contac t Referred To Contact Interventional Cardiology / Cardiology Diagnoses Presence of 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 (valve) stenosis 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 Procedures FL OFFICE/OUTPATIENT ESTABLISHED MOD MDM 30 MIN Osman Bui [address] [place] [address] Phone: tel: fax: Lashell Salas MD [address] [place] [address] [address] [place] [address] Phone: tel: fax: Referral ID Status Reason Start Date Expiration Date Visits Re quested Visits Authorized [id number] Closed 10/14/2024 10/14/2025 1 1 Reason Onset [...] End: June 27, 2024 Freddie SALAZAR, PA Referring Provider Active Start: June 27, 2024 End: June 27, 2024 Jet Inspector Relationship Specialty Start Date End Date Cem Arzate PCP - General 03/21/02 Jet Inspector Relationship Specialty Start Date End Date Cem Arzate PCP - General 03/21/02 Jet Inspector Relationship Specialty Start Date End Date Cem Arzate PCP - General 03/21/02 Jet Inspector Relationship Specialty Start Date End Date Cem Arzate PCP - General 03/21/02 Jet Inspector Relationship Specialty Start Date End Date Cem Arzate PCP - General 03/21/02 Jet Inspector Relationship Specialty Start Date End Date Cem Arzate PCP - General 03/21/02 Irene Florentino RN [address] [place] [address] Specialty Fugitive Detective Hematology/Oncology 10/13/21 Jet Inspector Relationship Specialty Start Date End Date Cem Arzate PCP - General 03/21/02 Irene Florentino RN [address] [place] [address] Specialty Fugitive Detective Hematology/Oncology 10/13/21 Jet Inspector Relationship Specialty Start Date End Date Cem Arzate PCP - General 03/21/02 Irene Florentino RN [address] [place] [address] Specialty Fugitive Detective Hematology/Oncology 10/13/21 Jet Inspector Relationship Specialty Start Date End Date Cem Arzate PCP - General 03/21/02 Irene Florentino RN [address] [place] [address] Specialty Fugitive Detective Hematology/Oncology 10/13/21 Jet Inspector Relationship Specialty Start Date End Date Cem Arzate PCP - General 03/21/02 Irene Florentino RN [address] [place] [address] Specialty Fugitive Detective Hematology/Oncology 10/13/21 Jet Inspector Relationship Specialty Start Date End Date Cem Arzate PCP - General 03/21/02 Irene Florentino, RN [address] [place] [address] Specialty Fugitive Detective Hematology/Oncology 10/13/21 Jet Inspector Relationship Specialty Start Date End Date Cem Arzate David PCP - General 03/21/02 Irene Florentino, RN [address] [place] [address] Specialty Fugitive Detective Hematology/Oncology 10/13/21 Jet Inspector Relationship Specialty Start Date End Date Cem Arzate David PCP - General 03/21/02 Irene Florentino RN [address] [place] [address] Specialty Fugitive Detective Hematology/Oncology 10/13/21 Jet Inspector Relationship Specialty Start Date End Date Cme Arzate David PCP - General 03/21/02 Irene Florentino RN [address] [place] [address] Specialty Fugitive Detective Hematology/Oncology 10/13/21 Jet Inspector Relationship Specialty Start Date End Date Cem Arzate David PCP - General 03/21/02 Irene Florentino RN [address] [place] [address] Specialty Fugitive Detective Hematology/Oncology 10/13/21 Jet Inspector Relationship Specialty Start Date End Date Cem Arzate David PCP - General 03/21/02 Irene Florentino, MELINDA [address] [place] [address] Specialty Fugitive Detective Hematology/Oncology 10/13/21 Jet Inspector Relationship Specialty Start Date End Date Cme Arzate David PCP - General 03/21/02 Irene Florentino, RN [address] [place] [address] Specialty Fugitive Detective Hematology/Oncology 10/13/21 Team Status: Active Member Role Status Dates Dr. Otto Subramanian MD Family Provider Active Dr. Otto Subramanian MD Primary Care Provider Active Team Status: Inactive Member Role Status Dates Dr. Otto Subramanian MD Primary Care Provide r, Attending Provider, Referring Provider Active Jet Inspector Relationship Specialty Start Date End Date Cem Arzate PCP - General 03/21/02 Irene Florentino, RN [address] [place] [address] Specialty Fugitive Detective Hematology/Oncology 10/13/21 Jet Inspector Relationship Specialty Start Date End Date Cem Arzate PCP - General 03/21/02 Irene Florentino RN [address] [place] [address] Specialty Fugitive Detective Hematology/Oncology 10/13/21 Jet Inspector Relationship Specialty Start Date End Date Cem Arzate PCP - General 03/21/02 Irene Florentino RN [address] [place] [address] Specialty Fugitive Detective Hematology/Oncology 10/13/21 Jet Inspector Relationship Specialty Start Date End Date Cem Arzate PCP - General 03/21/02 Irene Florentino RN [address] [place] [address] Specialty Fugitive Detective Hematology/Oncology 10/13/21 Team Status: Inactive Member Role Status Dates Dr. Otto Subramanian MD Primary Care Provider Active Dr. Quincy Staton MD Emergency Provider Active Jet Inspector Relationship Specialty Start Date End Date Cem Arzate PCP - General 03/21/02 Irene Florention, RN [address] [place] [address] Specialty Fugitive Detective Hematology/Oncology 10/13/21 Jet Inspector Relationship Specialty Start Date End Date Cem Arzate PCP - General 03/21/02 Irene Florentino RN [address] [place] [address] Specialty Fugitive Detective Hematology/Oncology 10/13/21 Jet Inspector Relationship Specialty Start Date End Date Cem Arzate PCP - General 03/21/02 Irene Florentino RN [address] [place] [address] Specialty Fugitive Detective Hematology/Oncology 10/13/21 Team Status: Inactive Member Role Status Dates Dr. Otto Subramanian MD Primary Care Provider Active Dr. Quincy Staton MD Attending Provider, Emergency Pro vider Active Team Status: Inactive Member Role Status Dates Dr. Otto Subramanian MD Primary Care Provider, Attending Norm neumann Active Freddie Lee PA, PA Other Provider Active Randy Vann MANAGER GLOBAL, MANAGER GLOBAL-C Other Provider Active Dr. Denilson Fernandes , Other Provider Active Jet Inspector Relationship Specialty Start Date End Date Cem Arzate PCP - General 03/21/02 Irene Florentino RN [address] [place] [address] Specialty Fugitive Detective Hematology/Oncology 10/13/21 Jet Inspector Relationship Specialty Start Date End Date Cem Arzate PCP - General 03/21/02 Irene Florentino RN [address] [place] [address] Specialty Fugitive Detective Hematology/Oncology 10/13/21 Team Status: Inactive Member Role Status Dates Dr. Otto Subramanian MD Primary Care Provider Active Dr. Marcos Ferraro , Emergency Provider Active Team Status: Inactive Member Role Status Dates Dr. Otto Subramanian MD Primary Care Provider Active Dr. Alex Zuñiga , Emergency Provider Active Jet Inspector Relationship Specialty Start Date End Date Cem Arzate PCP - General 03/21/02 Irene Florentino RN [address] [place] [address] Specialty Fugitive Detective Hematology/Oncology 10/13/21 Jet Inspector Relationship Specialty Start Date End Date Cem Arzate PCP - General 03/21/02 Irene Florentino, RN [address] [place] [address] Specialty Fugitive Detective Hematology/Oncology 10/13/21 Jet Inspector Relationship Specialty Start Date End Date Cem Arzate David PCP - General 03/21/02 Irene Florentino, MELINDA [address] [place] [address] Specialty Fugitive Detective Hematology/Oncology 10/13/21 Everett Aldrich MD [address] [place] [address] Hematology/Oncology 10/24/22 Jet Inspector Relationship Specialty Start Date End Date Huey Cem David PCP - General 03/21/02 Irene Florentino RN [address] [place] [address] Specialty Fugitive Detective Hematology/Oncology 10/13/21 Everett Aldrich MD [address] [place] [address] Hematology/Oncology 10/24/22 Jet Inspector Relationship Specialty Start Date End Date Otto Subramanian MD [address] [place] [address] PCP - General Family Medicine 01/12/23 Irene Florentino, MELINDA [address] [place] [address] Specialty Fugitive Detective Hematology/Oncology 10/13/21 Everett Aldrich MD [address] [place] [address] Hematology/Oncology 10/24/22 Jet Inspector Relationship Specialty Start Date End Date Otto Subramanian MD [address] [place] [address] PCP - General Family Medicine 01/12/23 Irene Florentino, RN [address] [place] [address] Specialty Fugitive Detective Hematology/Oncology 10/13/21 Everett Aldrich MD [address] [place] [address] Hematology/Oncology 10/24/22 Jet Inspector Relationship Specialty Start Date End Date Otto Subramanian MD [address] [place] [address] PCP - General Family Medicine 01/12/23 Irene Florentino, RN [address] [place] [address] Specialty Fugitive Detective Hematology/Oncology 10/13/21 Everett Aldrich MD [address] [place] [address] Hematology/Oncology 10/24/22 Team Status: Inactive Member Role Status Dates Dr. Otto Subramanian MD Primary Care Provider, Referring Norm neumann Active Riri Peralta MANAGER GLOBAL, MANAGER GLOBAL-C Attending Provider Active Team Status: Active Member Role Status Dates Dr. Otto Subramanian MD Primary Care Provider Active Dr. Osman Bui MD Attending Provider Active Team Status: Active Member Role Status Dates Dr. Otto Subramanian MD Primary Care Provider Active Riri Peralta MANAGER GLOBAL, MANAGER GLOBAL-C Attending Provider Active Team Status: Inactive Member Role Status Dates Dr. Otto Subramanian MD Primary Care Provider Active Riri Peralta MANAGER GLOBAL, MANAGER GLOBAL-C Attending Provider, Referring Norm neumann Active Team Status: Active Member Role Status Dates Dr. Otto Subramanian MD Primary Care Provider Active Dr. Marquise Hart MD Attending Provider Active Riri Peralta MANAGER GLOBAL, MANAGER GLOBAL-C Referring Provider Active Jet Inspector Relationship Specialty Start Date End Date Otto Subramanian MD [address] [place] [address] PCP - General Family Medicine 01/12/23 Irene Florentino RN [address] [place] [address] Specialty Fugitive Detective Hematology/Oncology 10/13/21 Everett Aldrich MD [address] [place] [address] Hematology/Oncology 10/24/22 Jet Inspector Relationship Specialty Start Date End Date Otto Subramanian MD [address] [place] [address] PCP - General Family Medicine 01/12/23 Irene Florentino RN [address] [place] [address] Specialty Fugitive Detective Hematology/Oncology 10/13/21 Everett Aldrich MD [address] [place] [address] Hematology/Oncology 10/24/22 Jet Inspector Relationship Specialty Start Date End Date Otto Subramanian MD [address] [place] [address] PCP - General Family Medicine 01/12/23 Irene Florentino, MELINDA [address] [place] [address] Specialty Fugitive Detective Hematology/Oncology 10/13/21 Everett Aldrich MD [address] [place] [address] Hematology/Oncology 10/24/22 Jet Inspector Relationship Specialty Start Date End Date Otto Subramanian MD [address] [place] [address] PCP - General Family Medicine 01/12/23 Irene Florentino RN [address] [place] [address] Specialty Fugitive Detective Hematology/Oncology 10/13/21 Everett Aldrich MD [address] [place] [address] Hematology/Oncology 10/24/22 Jet Inspector Relationship Specialty Start Date End Date Otto Subramanian MD [address] [place] [address] PCP - General Family Medicine 01/12/23 Irene Florentino RN [address] [place] [address] Specialty Fugitive Detective Hematology/Oncology 10/13/21 Everett Aldrich MD [address] [place] [address] Hematology/Oncology 10/24/22 Jet Inspector Relationship Specialty Start Date End Date Otto Subramanian MD [address] [facility] [address] [place] [address] PCP - General Family Medicine 01/12/23 Irene Florentino, MELINDA [address] [place] [address] Specialty Fugitive Detective Hematology/Oncology 10/13/21 Everett Aldrich MD [address] [place] [address] Hematology/Oncology 10/24/22 Jet Inspector Relationship Specialty Start Date End Date Otto Subramanian MD [address] [facility] [address] [place] [address] PCP - General Family Medicine 01/12/23 Irene Florentino RN [address] [place] [address] Specialty Fugitive Detective Hematology/Oncology 10/13/21 Everett Aldrich MD [address] [place] [address] Hematology/Oncology 10/24/22 Jet Inspector Relationship Specialty Start Date End Date Otto Subramanian MD [address] [facility] [address] [place] [address] PCP - General Family Medicine 01/12/23 Irene Florentino RN [address] [place] [address] Specialty Fugitive Detective Hematology/Oncology 10/13/21 Everett Aldrich MD [address] [place] [address] Hematology/Oncology 10/24/22 Jet Inspector Relationship Specialty Start Date End Date Otto Subramanian MD [address] [place] [address] PCP - General Family Medicine 01/12/23 Irene Florentino, RN [address] [address] Specialty Fugitive Detective Hematology/Oncology 10/13/21 Everett Aldrich MD [address] [place] [address] Hematology/Oncology 10/24/22 Jet Inspector Relationship Specialty Start Date End Date Otto Subramanian MD [address] [place] [address] PCP - General Family Medicine 01/12/23 Irene Florentino RN [address] [place] [address] Specialty Fugitive Detective Hematology/Oncology 10/13/21 Everett Aldrich MD [address] [place] [address] Hematology/Oncology 10/24/22 Jet Inspector Relationship Specialty Start Date End Date Otto Subramanian MD [address] [place] [address] PCP - General Family Medicine 01/12/23 Irene Florentino, RN [address] [place] [address] Specialty Fugitive Detective Hematology/Oncology 10/13/21 Everett Aldrich MD [address] [place] [address] Hematology/Oncology 10/24/22 Jet Inspector Relationship Specialty Start Date End Date Otto Subramanian MD [address] [place] [address] PCP - General Family Medicine 01/12/23 Irene Florentino RN [address] [place] [address] Specialty Fugitive Detective Hematology/Oncology 10/13/21 Everett Aldrich MD [address] [place] [address] Hematology/Oncology 10/24/22 Jet Inspector Relationship Specialty Start Date End Date Otto Subramanian MD [address] [place] [address] PCP - General Family Medicine 01/12/23 Irene Florentino, MELINDA [address] [place] [address] Specialty Fugitive Detective Hematology/Oncology 10/13/21 Everett Aldrich MD [address] [place] [address] Hematology/Oncology 10/24/22 Team Status: Active Member Role Status Dates Dr. Otto Subramanian MD Primary Care Provider Active Start: May 23, 2024 Dr. Otto Subramanian MD Attending Provider Active St art: May 23, 2024 Jet Inspector Relationship Specialty Start Date End Date Otto Subramanian MD [address] [place] [address] PCP - General Family Medicine 01/12/23 Irene Florentino, MELINDA [address] [place], [place] [address] Specialty Fugitive Detective Hematology/Oncology 10/13/21 Everett Aldrich MD [address] [place], [place] [address] Hematology/Oncology 10/24/22 Team Status: Active Member Role/Relationship [...] Provider Active Start: September 12, 2024 Freddie eLe PA, PA Referring Provider Active Start: September [...] 12, 2024 End: September 12, 2024 Freddie SALAZAR PA Referring Provider Active Start: September 12, 2024 End: September 12, 2024 Team Status: Active Member Role/Relationship Status Dates Dr. Otto Subramanian MD Primary Care Provider Active Start: September 12, 2024 Freddie SALAZAR PA Referring Provider Active Start: September 12, 2024 Freddie SALAZAR, PA Other Provider Active Start: September 12, [...] September 16, 2024 Freddie SALAZAR PA Attending Provider Active Start: September 16, 2024 End: September 16, 2024 Freddie SALAZAR, PA Referring Provider Active Start: September 16, 2024 End: September 16, 2024 Team Status: Inactive Member Role/Relationship Status Dates Dr. Otto Subramanian MD Primary Care Provider Active Start: September 26, 2024 End: September 26, 2024 Dr. Otto Subramanian MD Referring Provider Active St art: September 26, 2024 End: September 26, 2024 Riri Peralta MANAGER GLOBAL, MANAGER GLOBAL-C Attending Provider Active Start: September 26, 2024 End: September 26, 2024 Team Status: Inactive Member Role/Relationship Status Dates Dr. Otto Subramanian MD Primary Care Provider Active Start: September 29, 2024 End: September 29, 2024 Dr. Otto Subramanian MD Referring Provider Active St art: September 29, 2024 End: September 29, 2024 Freddie SALAZAR PA Attending Provider Active Start: September [...] 16, 2024 End: September 16, 2024 Freddie SALAZAR, PA Attending Provider Active Start: September 16, [...] 2024 End: September 26, 2024 Riri Peralta MANAGER GLOBAL, MANAGER GLOBAL-C Attending Provider Active Start: September 26, 2024 [...] November 04, 2024 End: November 04, 2024 Jet Inspector Relationship Specialty Start Date End Date Otto Subramanian MD [address] [address] PCP - General Family Medicine 01/12/23 Irene Florentino, MELINDA [address] [place], [place] [address] Specialty Fugitive Detective Hematology/Oncology 10/13/21 Everett Aldrich MD [address] [place] [address] Hematology/Oncology 10/24/22 Jet Inspector Relationship Specialty Start Date End Date Otto Subramanian [address] [place] [phone] PCP - General Family Medicine 11/26/24 Jet Inspector Relationship Specialty Start Date End Date Otto Subramanian [address] [place] [phone] PCP - General Family Medicine 11/26/24 Jet Inspector Relationship Specialty Start Date End Date Otto Subramanian [address] [place] [phone] PCP - General Family Medicine 11/26/24 Jet Inspector Relationship Specialty Start Date End Date Otto Subramanian [address] [place] [phone] PCP - General Family Medicine 11/26/24 Jet Inspector Relationship Specialty Start Date End Date Otto Subramanian [address] [place] [phone] PCP - General Family Medicine 11/26/24 Jet Inspector Relationship Specialty Start Date End Date Edgar Subramanianic [address] [place] [phone] PCP - General Family Medicine 11/26/24 Team [...] 16, 2024 End: September 16, 2024 Freddie SALAZAR, PA Attending physician Active Start: September 16, 2024 End: September 16, 2024 Freddie Lee PA, PA Referring Provider Active Start: September 16, 2024 End: September 16, 2024 Team Status: Inactive Member Role/Relationship Status Dates Dr. Otot Subramanian MD Primary care physician Active Start: September 26, 2024 End: September 26, 2024 Dr. Otto Subramanian MD Referring Provider Active St art: September 26, 2024 End: September 26, 2024 Riri Peralta MANAGER GLOBAL, MANAGER GLOBAL-C Attending physician Active Start: September 26, 2024 End: September 26, 2024 Team Status: Inactive Member Role/Relationship Status Dates Dr. Otto uSbramanian MD Primary care physician Active Start: September 29, 2024 End: September 29, 2024 Dr. Otto Subramanian MD Referring Provider Active St art: September 29, 2024 End: September 29, 2024 Freddie SALAZAR, PA Attending physician Active Start: September 29, [...] section and content) DATE CREATED AUTHOR 11/14/2024 [facility] DATE CREATED AUTHOR AUTHOR'S ORGANIZ ATION 01/08/2025 [facility] DATE CREATED AUTHOR AUTHOR'S ORGANIZ ATION 01/20/2025 [facility] DATE CREATED AUTHOR AUTHOR'S ORGANIZ ATION 01/27/2025 [facility] Ce nter Scheduled Active and Recently Administ ered Medications (unrecognized section and content) Medication Order 12/22/2024 12/23/2024 12/24/2024 aspirin EC tablet 81 mg 81 mg, Oral, Daily, First dose on Mon12/23/24 at 1645, Do not crush, chew, or split. 1718 (Given - Provider: Brittni Gibson, MELINDA) 0821 (Given - Provider: Crissy Latham RN) atorvastatin (Lipitor) tablet 20 mg 20 mg, Oral, Nightly, First dose on Mon12/23/24 at 2100 1956 (Given - Provider: Imtiaz Thomas, MELINDA) ceFAZolin (Ancef) 2,000 mg in sodium chloride [...] Hold for SBP less than 120 12/23 171 (Not Given - Provider: Brittni Gibson RN - Reason: Order parameters not met) 0820 (Not Given - Provider: Crissy Latham RN - Reason: Order parameters not met - Comment: 119/60) losartan (Cozaar) tablet 25 mg 25 mg, Oral, Daily, First dose on Mon12/23/24 at 1645, Hold for SBP less than 120 on 12/23 1717 (Not Given - Provider: Brittni Gibson RN - Reason: Order parameters not met) 0821 (Given - Provider: Crissy Latham RN) magnesium oxide (Mag-Ox) tablet 400 mg 400 mg, Oral, Daily, First dose on Mon12/23/24 at 1645 1718 (Given - Provider: Brittni Gibson RN) 0821 (Given - Provider: Crissy Latham, MELINDA) metoprolol tartrate (Lopressor) tablet 25 mg 25 mg, Oral, 2 times daily, First dose on Mon12/23/24 at 2100 1955 (Given - Provider: Imtiaz Thomas RN) 0821 (Given - Provider: Crissy Latham RN) mupirocin (Bactroban) 2 % ointment 1 Application 1 Application, Nasal, 2 times daily, First dose on Mon12/23/24 at 2100, For 5 days, Recovery & On Unit, Indications: MRSA Nasal Decolonization 1955 (Given - Provider: Imtiaz Thomas, MELINDA) 08 (Given - Provider: Crissy Latham RN) oxyCODONE [...] sedation for opioid reversal - MUST notify contract loader provider immediately after first dose, may give IM or SQ if no IV access +++ oxyCODONE-acetaminophen (Percocet) 5-325 MG per tablet 1 tablet 1 tablet, Oral, Every 8 hours PRN, moderate pain (4-6), Starting on Mon12/23/24 at 1642, Maximum dose of acetaminophen is 4000 mg from all sources in 24 hours. 1955 (Given - Provider: Imtiaz Thomas, MELINDA) 820 (Given - Provider: Crissy Latham RN) perflutren [...] On Mon12/24/24 at 0315, For 1 dose FOR RECORDS PERTAINING TO [...] BE BASED ON THE PRIMARY CLINICAL RECORDS. Education Everytime [facility]. provides no warranty or guarantee of the accuracy or completeness of information in this document.
[2025-02-19 18:07] LABS: AST(SGOT) 20 U/L (<=37); Alanine Aminotransfer ALT/SGPT 7 U/L (<=46); Albumin, Serum 3.7 g/dL (3.4-4.8); Alkaline Phosphatase 77 U/L (40-129); Anion Gap 14 (5-15); BUN 14 mg/dL (4-19); BUN/Creat Ratio 13.3 RATIO (10-20); CRP 14.40 mg/L (0.0-3.0); Calcium,Total 8.9 mg/dL (7.6-11.0); Carbon Dioxide 25.4 mmol/L (21.0-32.0); Chloride 101 mmol/L (98-108); Globulin 2.7 g/dL (2.2-4.2); Glucose 115 mg/dL (70-99); Magnesium 3.2 mg/dL (1.5-2.2); Potassium 3.1 mmol/L (3.3-5.1)
[2025-02-19 18:15] LABS: Hematocrit 36.2 % (40-54); Hemoglobin 12.0 g/dL (13.0-16.5); Immature Granulocytes Count 0.040 X10^3/uL (0.0-0.0); Mean Corp Hgb Conc 33.1 g/dL (32-36); Mean Corpuscular Volume 94.0 fL (80-94); Mean Platelet Vol. 10.6 fl (6.2-12.0); NRBC Flagged by Analyzer 0 % (0-5); Platelet Count 351 K/mm3 (150-450); RBC Distribution Width CV 12.0 % (11.6-14.6); RBC Distribution Width SD 41.4 fl (35.1-43.9); Red Blood Count 3.85 M/mm3 (4.6-6.2); White Blood Count 6.7 K/mm3 (4.4-11.0)
== END | disposition home or self-care (01) ==
LOC: MFPLAB 15:14
PROVIDERS: PCP Family Medicine; Visit Provider Family Medicine
DX: E87.6 Hypokalemia (principal); R10.32 Left lower quadrant pain
CPT/HCPCS: 36415; 80053; 83735; 85025; 85652; 86140